=== PATIENT | male | born 2000 | race Caucasian/White ===

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

== ENCOUNTER 2018-01-03 18:35 | Emergency (ER) | payer MEDICAID, SELFPAY ==
[2018-01-03 18:36] VITALS: BP 139/95; PULSE 130; RESP 18; TEMP 36.6; O2SAT 99; BMI 20.6
--- NOTE | 2018-01-03 19:27 | ED.VISSUMM ---
- ER Visit Summary Date of Service: 01/03/18 Chief Complaint: Acute on chronic abdominal pain with nausea History of Present Illness: The patient is a 17 M 3 of his type 1 diabetes. Patient has chronic abdominal pain for more than a year. He states he had an extensive workup done including clinic main campus a year ago without specific diagnosis. Today he was seen at the [facility] urgent care. He has had abdominal pain for the last 2 weeks. More severe. They checked a blood sugar there he states it was 196. They did serum ketones are positive they told him they were concerned he may be DKA and sent him to the ER. He has never had any abdominal surgery. He denies any abdominal trauma. He denies any fever. Physical Examination: Young male no acute distress. Vital signs are stable he is afebrile. He does clinically look mildly dehydrated with dry mucous membranes and a heart rate of 130. He does not look septic or toxic. H EENT exam dry mucous members otherwise unremarkable. Neck nontender no lymphadenopathy. Lungs auscultation bilaterally. Heart tachycardic rate about 120 no murmur. Chest wall nontender. Abdomen soft nondistended normal bowel sounds. Mild left upper left lower quadrant tenderness. No rebound or guarding no rigidity. Right upper right lower quadrant unremarkable. No signs of trauma. No peritoneal signs. No hernias or masses. No signs of obstruction. He is moving all 4 extremities. They are neurovascularly intact. Neurologically is awake alert with no focal deficits. Test Results: CBC normal white count is 6. BMP shows a sugar of 243. And gap is 17. Creatinine is 1.2. Liver enzymes are elevated they have been elevated multiple times in the past. Serum ketones are small. I suspect that secondary to dehydration ketosis from the nausea and vomiting. Emergency Department Course and Treatment: Treated with IV fluids, Toradol and IV Zofran. Treatment Plan: Repeat exam at 2245 patient is doing well. Abdomen is benign. He feels comfortable being discharged home. Disposition: Discharge Impression: Acute on chronic abdominal pain History of insulin-dependent diabetes Dehydration ketosis This note was generated with [employer] dictation software. It may contain incorrect words, spelling, and punctuation that were not noted in review of the chart prior to signing ED Disposition - Plan for ED Patient: Chief Complaint: Abd Pain Referrals: Scott Gomez MD [Primary Care Provider] -
--- NOTE | 2018-01-03 19:30 | ED.DCSUM_ITS ---
- ER Visit Summary Date of Service: 01/03/18 Chief Complaint: Acute on chronic abdominal pain with nausea History of Present Illness: The patient is a 17 M 3 of his type 1 diabetes. Patient has chronic abdominal pain for more than a year. He states he had an extensive workup done including clinic main campus a year ago without specific diagnosis. Today he was seen at the [facility] urgent care. He has had abdominal pain for the last 2 weeks. More severe. They checked a blood sugar there he states it was 196. They did serum ketones are positive they told him they were concerned he may be DKA and sent him to the ER. He has never had any abdominal surgery. He denies any abdominal trauma. He denies any fever. Physical Examination: Young male no acute distress. Vital signs are stable he is afebrile. He does clinically look mildly dehydrated with dry mucous membranes and a heart rate of 130. He does not look septic or toxic. H EENT exam dry mucous members otherwise unremarkable. Neck nontender no lymphadenopathy. Lungs auscultation bilaterally. Heart tachycardic rate about 120 no murmur. Chest wall nontender. Abdomen soft nondistended normal bowel sounds. Mild left upper left lower quadrant tenderness. No rebound or guarding no rigidity. Right upper right lower quadrant unremarkable. No signs of trauma. No peritoneal signs. No hernias or masses. No signs of obstruction. He is moving all 4 extremities. They are neurovascularly intact. Neurologically is awake alert with no focal deficits. Test Results: CBC normal white count is 6. BMP shows a sugar of 243. And gap is 17. Creatinine is 1.2. Liver enzymes are elevated they have been elevated multiple times in the past. Serum ketones are small. I suspect that secondary to dehydration ketosis from the nausea and vomiting. Emergency Department Course and Treatment: Treated with IV fluids, Toradol and IV Zofran. Treatment Plan: Repeat exam at 2245 patient is doing well. Abdomen is benign. He feels comfortable being discharged home. Disposition: Discharge Impression: Acute on chronic abdominal pain History of insulin-dependent diabetes Dehydration ketosis This note was generated with [employer] dictation software. It may contain incorrect words, spelling, and punctuation that were not noted in review of the chart prior to signing ED Disposition - Plan for ED Patient: Chief Complaint: Abd Pain Referrals: Scott Gomez MD [Primary Care Provider] -
[2018-01-03] MEDS: Ondansetron 4 MG/2 ML Vial IV (19:35)
[2018-01-03] MEDS: Ketorolac 30 MG/ML Syringe IV (19:35)
[2018-01-03] MEDS: 0.9% Normal Saline 1,000 ML 1000 ML IV (19:35)
[2018-01-03 19:58] LABS: Absolute Lymphocyte Count 1.95 X10^3/ul (0.83-4.51); Absolute Neutrophil Count 3.3 X10^3/uL (2.0-7.7); Basophil# 0.03 X10^3/uL; Basophil% 0.5 % (0-1); Eosinophil# 0.21 X10^3/uL; Eosinophils% 3.5 % (0-5); Hematocrit 44.4 % (40-54); Hemoglobin 16.2 g/dl (13.0-16.5); Lymphocyte # 1.95 X10^3/ul (4.0); Lymphocyte % 32.7 % (19-41); Mean Corp Hgb Conc 36.5 g/gl (32-36); Mean Corpuscular Hgb 32.1 pg (27.0-32.0); Mean Corpuscular Volume 88.1 fL (80-94); Mean Platelet Vol. 9.9 fl (6.2-12.0); Monocyte# 0.44 X10^3/uL; Monocyte% 7.4 % (0-10); Neutrophil # 3.29 X10^3/uL (2.7-7.7); Neutrophil % 55.1 % (47-70); Platelet Count 274 K/mm3 (150-450); RBC Distribution Width CV 12.8 % (11.6-14.6); RBC Distribution Width SD 41.3 fl (35.1-43.9); Red Blood Count 5.04 M/mm3 (4.6-6.2)
[2018-01-03 20:04] LABS: POSITIVE COUNT NO; POSITIVE DIFFERENTIAL NO; POSITIVE MORPHOLOGY NO
[2018-01-03 20:15] LABS: AST(SGOT) 126 U/L (15-37); Alanine Aminotransfer ALT/SGPT 204 U/L (16-61); Albumin, Serum 3.3 g/dL (3.2-5.0); Alkaline Phosphatase 165 U/L (45-117); Anion Gap 17 (5-15); BUN 17 mg/dL (7-18); BUN/Creat Ratio 13.9 RATIO (10-20); Bilirubin, Direct < 0.05 mg/dL (0.00-0.30); Calcium,Total 8.4 mg/dL (8.5-10.1); Chloride 103 mmol/L (98-107); Creatinine, Serum 1.22 mg/dL (0.70-1.30); EST Glomerular Filtration Rate 81 mL/min (>60); Est Glom Filt Rate - Afr Amer 98 mL/min (>60); Estimated Creatinine Clearance 84.72 ml/min; Globulin 3.7 g/dL (2.2-4.2); Glucose 243 mg/dL (74-106); Lipase 59 U/L (73-393); Potassium 3.6 mmol/L (3.5-5.1); Sodium Level 137 mmol/L (136-145)
[2018-01-03 22:22] VITALS: RESP 18; O2SAT 99
--- NOTE | 2018-01-03 22:49 | ED.DEP ---
ED Disposition - Plan for ED Patient: Disposition: Home or Assisted Living Chief Complaint: Abd Pain Instructions: ED Abdominal Pain Unkn Cause Prescriptions: Ondansetron [Zofran Odt] 4 mg PO Q4H PRN PRN #7 tab.rapdis PRN Reason: Nausea Referrals: Scott Gomez MD [Primary Care Provider] - 1-2 Days if not improving Additional Instructions: Plenty of fluids and rest. Watch your blood sugars closely. Take your medications as prescribed. Zofran as needed for nausea. You may swallow the pill or hold underneath your tongue to let it dissolve. Return if feeling worse.
[2018-01-03] MEDS: Ondansetron ODT 4 MG Tablet 16 MG PO (23:12)
[2018-01-03 23:15] VITALS: BP 102/64; PULSE 102; RESP 18; O2SAT 98
== END 2018-01-03 23:16 | disposition home or self-care (01) ==
PROVIDERS: Emergency Provider Emergency Medicine; Family Provider Pediatrics; PCP Pediatrics
DX: G89.29 Other chronic pain (principal); R10.9 Unspecified abdominal pain; E86.0 Dehydration; E88.89 Other specified metabolic disorders; Z79.4 Long term (current) use of insulin; E10.9 Type 1 diabetes mellitus without complications
CPT/HCPCS: 80048; 80076; 82009; 83690; 85025; 99283; J7030; A4216; J2405

== ENCOUNTER 2018-01-23 17:42 | Observation (INO) | payer MEDICAID, SELFPAY ==
[2018-01-23] VITALS (12 sets, daily range): BP systolic 101–130; BP diastolic 54–84; PULSE 87–101; RESP 16–29; TEMP 36.6–36.8; O2SAT 96–100; BMI 22.2; BMI 22.8; BMI 22.9
[2018-01-23 17:55] LABS: Bedside Glucose > 500 mg/dL (70-110)
[2018-01-23 18:31] LABS: Absolute Lymphocyte Count 2.26 X10^3/ul (0.83-4.51); Absolute Neutrophil Count 3.9 X10^3/uL (2.0-7.7); Basophil# 0.06 X10^3/uL; Basophil% 0.9 % (0-1); Eosinophil# 0.17 X10^3/uL; Eosinophils% 2.5 % (0-5); Hematocrit 47.7 % (40-54); Hemoglobin 15.6 g/dl (13.0-16.5); Lymphocyte # 2.26 X10^3/ul (4.0); Lymphocyte % 32.9 % (19-41); Mean Corp Hgb Conc 32.7 g/gl (32-36); Mean Corpuscular Hgb 31.2 pg (27.0-32.0); Mean Corpuscular Volume 95.4 fL (80-94); Mean Platelet Vol. 9.7 fl (6.2-12.0); Monocyte# 0.36 X10^3/uL; Monocyte% 5.2 % (0-10); Neutrophil # 3.92 X10^3/uL (2.7-7.7); POSITIVE COUNT NO; POSITIVE DIFFERENTIAL NO; POSITIVE MORPHOLOGY NO; Platelet Count 269 K/mm3 (150-450); RBC Distribution Width CV 13.8 % (11.6-14.6); RBC Distribution Width SD 47.6 fl (35.1-43.9); White Blood Count 6.9 K/mm3 (4.4-11.0)
[2018-01-23 18:50] LABS: Anion Gap 25 (5-15); BUN 22 mg/dL (7-18); BUN/Creat Ratio 21.4 RATIO (10-20); Calcium,Total 9.1 mg/dL (8.5-10.1); Chloride 94 mmol/L (98-107); Creatinine, Serum 1.03 mg/dL (0.70-1.30); EST Glomerular Filtration Rate 99 mL/min (>60); Est Glom Filt Rate - Afr Amer 120 mL/min (>60); Estimated Creatinine Clearance 102.14 ml/min; Glucose 717 mg/dL (74-106); Potassium 4.5 mmol/L (3.5-5.1); Sodium Level 132 mmol/L (136-145)
--- NOTE | 2018-01-23 19:20 | EKG12_ITS ---
Test Reason : DKA Blood Pressure : / mmHG Vent. Rate : 091 BPM Atrial Rate : 091 BPM P-R Int : 140 ms QRS Dur : 086 ms QT Int : 352 ms P-R-T Axes : 056 021 029 degrees QTc Int : 432 ms Normal sinus rhythm Normal ECG Confirmed by REILLY OLMEDO, GIOVANI ([id number]), copy editor CHRISSIE CACERES ([id number]) on 01/25/2018 1:55:00 PM Referred By: DC Confirmed By:GIOVANI GROVER MD
--- NOTE | 2018-01-23 19:22 | ED.VISSUMM ---
- ER Visit Summary Date of Service: 01/23/18 Chief Complaint: Dehydrated History of Present Illness: The patient is a 17 M with type 1 diabetes. He has had excessive thirst over the past couple days, and he continues to drink a lot but still feels dehydrated. His blood sugars were in the 200s yesterday and then the were high today. He says that he is taking his medications as prescribed and has not missed doses or changed his treatment regimen. He has a history of DKA. He also has a history of fatty liver and has been having some right upper quadrant pain. Physical Examination: Vital signs unremarkable except for heart rate of 101 and respiratory rate of 22. He is afebrile. Nontoxic and in no acute distress. Mucous membranes are slightly dry. Skin appears normal. Heart regular. Lungs clear. Abdomen soft and nontender. Test Results: Glucose 717, anion gap 25, CO2 13. Other laboratory studies are pending. Emergency Department Course and Treatment: Patient treated with a fluid bolus. Placed on a monitor. Will start insulin drip for DKA. Acetones large. Ketones in urine. Transaminases elevated. Lipase normal. Patient treated with fluids and insulin drip started. Vitals remained stable. He is resting comfortably. Spoke with the plate glass installer and the hospitalist to admit for further care. Treatment Plan: As above Disposition: Admission Impression: 1. DKA 2. Elevated liver enzymes This note was generated with [employer] dictation software. It may contain incorrect words, spelling, and punctuation that were not noted in review of the chart prior to signing ED Disposition - Plan for ED Patient: Chief Complaint: Hyperglycemia Referrals: Scott Gomez MD [Primary Care Provider] -
[2018-01-23 19:29] LABS: Bacteria 0 SEEN /hpf (None Seen); Mucous, Urine 0 SEEN /hpf (<or=2+); Red Blood Cells-Urine 0 SEEN /hpf (0-5); Squamous Epithelial Cells - UA 0 SEEN /hpf (0-5); White Blood Cells 0 SEEN /hpf (0-5)
[2018-01-23 19:33] LABS: Color, Urine Yellow (Yellow); Glucose, Dipstick 1000 mg/dl (Normal); Leukocyte Esterase-Dipstick Negative /ul (Negative); Nitrite-Dipstick Negative (Negative); Occult Blood-Urine Negative /ul (Negative); Protein-Dipstick Negative (Negative); Urine Bilirubin Dipstick Negative (Negative); Urine Clarity Clear (Clear); Urine Urobilinogen Normal (Normal)
[2018-01-23 19:36] LABS: Bedside Glucose > 500 mg/dL (70-110)
[2018-01-23 19:40] LABS: Ketone-Dipstick 150 mg/dl (Negative)
--- NOTE | 2018-01-23 19:40 | ED.RN ---
DR AZEVEDO NOTIFIED OF [place] AND [place] [facility]
[2018-01-23 19:41] LABS: AST(SGOT) 101 U/L (15-37); Alanine Aminotransfer ALT/SGPT 169 U/L (16-61); Albumin, Serum 3.7 g/dL (3.2-5.0); Alkaline Phosphatase 200 U/L (45-117); Bilirubin, Direct 0.25 mg/dL (0.00-0.30); Globulin 3.3 g/dL (2.2-4.2); Lipase 53 U/L (73-393)
[2018-01-23] MEDS: 0.9% Normal Saline 1,000 ML 1000 ML IV ×2 (19:53→19:54)
[2018-01-23 19:56] LABS: Allen Test POS; Base Excess -20 mmol/L (-2 to +2); Bicarbonate 8.3 mmol/L (22-26); Blood Gas Specimen Type ART; O2 Delivery Device Room Air; PO2 110 mmHG (75-100); SITE L Radial; SO2 97 % (95-99); Total Carbon Dioxide 9 mmol/L; pCO2 21.1 mmHg (35-45)
[2018-01-23 20:30] LABS: Bedside Glucose > 500 mg/dL (70-110)
[2018-01-23 21:25] LABS: Bedside Glucose 473 mg/dL (70-110)
--- NOTE | 2018-01-23 21:29 | HP.PCM_ITS ---
Problem List (1) DM I (diabetes mellitus, type I), uncontrolled Status: Chronic Qualifiers: Comment: BG varied .Noted a pattern of BG elevated after breakfast and dinner and at bedtime last visit and ask him to specifically check 2 hours before and after these times which he did not do. Will increase basaglar to 20 twice daily but he did not do. I have ask him again to do as he gets much better control. When control seems better he may reduce to 18 twice daily. Long discussion about potential complications and need to try. (2) DKA (diabetic ketoacidoses) Status: Acute Qualifiers: History of Present Illness Date of Admission: 01/23/18 Chief Complaint: Thirsty, dehydrated. The patient is a 17 year old M with past medical history as mentioned above presented to the emergency room because of thirst and severe dehydration as well as elevated blood blood sugar. This patient has history of type 1 diabetes mellitus with recurrent admissions for DKA. He mentioned that since yesterday, his blood pressure started to creep up and was up to 312 mg/dL. Today, he started complaining of being very thirsty and dehydrated, associated with weakness and fatigue and also complained of abdominal pain. Abdominal pain , right-sided abdominal pain, vague pain, dull aching, 3-4 out of 10 in severity , has been going on for long time but seemed to be got worse since yesterday, no associated symptoms and no aggravating or relieving factors. He denied nausea vomiting. He denied fever chills. He denies cough or sputum production. He denies urinary symptoms. He stated that he takes his insulin as prescribed and he did not miss any dose. In the emergency department, his vital signs were stable. His routine blood work is remarkable for sodium of 132 , BUN of 22, serum bicarb of 13, anion gap was 25, blood sugar 717. LFT was elevated, lipase was normal. Urinalysis revealed glucose and ketones, no evidence of UTI. Urine acetone was large. His EKG revealed normal sinus rhythm without evidence of acute ischemic changes or cardiac arrhythmias. He is being admitted for diabetic ketoacidosis. Past Medical History Past Medical History (Chronic Problems): Chronic Problems (Last Reviewed 01/18/18 @ 16:18 by Amanda Wilkinson) Suicidal ideations (Chronic) DM I (diabetes mellitus, type I), uncontrolled (Chronic) BG varied .Noted a pattern of BG elevated after breakfast and dinner and at bedtime last visit and ask him to specifically check 2 hours before and after these times which he did not do. Will increase basaglar to 20 twice daily but he did not do. I have ask him again to do as he gets much better control. When control seems better he may reduce to 18 twice daily. Long discussion about potential complications and need to try. Medical History: Medical History (Last Reviewed 01/18/18 @ 16:18 by Amanda Wilkinson) Anxiety disorder F41.9 Back problem M53.9 Bone fracture T14.8XXA Diabetes type 1, uncontrolled E10.65 Dx : age 2 Last exacerbation : DKA : 09/08/17 Hypoglycemic episode : never ER visit : 09/13/17 Hearing problem H91.90 Liver disease K76.9 Seizure R56.9 Vision problem H54.7 Allergies No Known Allergies Allergy (Verified 01/23/18 17:43) Home Medications: Ambulatory Orders Medication Instructions Recorded insulin aspart U-100 100 unit/mL See Label Instructions SC QDAY 08/10/17 subcutaneous pen Insulin Glargine,Hum.rec.anlog 30 unit SQ QHS 10/26/17 [Basaglar Kwikpen U-100] Ondansetron [Zofran Odt] 4 mg PO Q4H PRN PRN #7 tab.rapdis 01/03/18 Omeprazole [Omeprazole] 40 mg PO DAILY 01/23/18 Surgical History: Surgical History (Last Reviewed 01/18/18 @ 16:18 by Amanda Wilkinson) S/p bilateral myringotomy with tube placement Z96.22 Surgical History: - - BL ear tubes. Psychiatric History: Anxiety, Depression, Prior suicide attempt Lives: With Family Smoking Status: Never smoker Alcohol: None Drugs: None - *Family History Maternal Family History: Family History (Last Reviewed 01/18/18 @ 16:18 by Amanda Wilkinson) Mother Kidney disease History Items: Heart Disease, Renal Disease Paternal Family History: Family History (Last Reviewed 01/18/18 @ 16:18 by Amanda Wilkinson) Mother Kidney disease History Items: Heart Disease, - - Paternal family males w/ frequent hearing disorder. Review of Systems Constitutional: Reports: Anorexia, Weakness, Fatigue. Denies: Chills, Fever Eyes: Denies: Blurred vision, Double vision, Eyelid Inflammation, Redness HEENT: Denies: Difficulty Hearing, Ear Pain, Eye Pain, Nasal Congestion, Sore Throat Cardiovascular: Denies: Chest Pain, Chest Pressure, Edema, Heaviness, Palpitations, Syncope Respiratory: Denies: Cough, Pleuritic Pain, Shortness of Breath, Sputum production, Wheezing Gastrointestinal: Reports: Abdominal Pain. Denies: Constipation, Diarrhea, Hematochezia, Nausea, Vomiting Genitourinary: Denies: Dysuria, Frequency, Hematuria Musculoskeletal: Denies: Arm Pain, Back Pain, Foot Pain Skin: Reports: Dryness. Denies: Rash Neurological: Denies: Balance problems, Double vision, Change in Speech, Slurred speech, Confusion, Headaches, Incoordination, Numbness Psychiatric: Denies: Anxiety, Depression Endocrine: Denies: Change in Body Habitus, Polydipsia VTE Information - Inpt Only VTE Present on Admission: No VTE Mechan Device Prophylaxis: None VTE Pharm Prophylaxis ordered?: Yes - Physical Exam General: Alert, Oriented x3, Cooperative, No apparent distress HEENT: Atraumatic, PERRLA, EOMI Oral: No Gingival or Mucosal Lesions/ Ulcerations, Dry Mucosa Neck: Supple, No JVD, Negative Carotid Bruits, Trachea Midline, Thyroid Normal Size and Texture Lungs: Clear to auscultation, No rhonchi, No wheeze, No rales, Diminished Cardiovascular: Regular rate, Regular Rhythm, Normal S1, Normal S2, No murmurs Abdomen: Bowel Sounds Present, Soft, Non-Distended, No Hepato-splenomegaly, Tender Extremities: No clubbing, No cyanosis, No edema Skin: No rashes, No breakdown Lymphatic: No Cervical, Supraclavicular, or Inguinal Adenopathy Neurological: Cranial nerves II-XII grossly intact, Motor Exam 5/5 strength throughout Psych/Mental Status: Normal Affect, Appropriate, Alert and oriented to time, place, person, mood and affect Vital Signs Temp Pulse Resp BP Pulse Ox 98.2 F 92 18 103/67 100 01/23/18 17:44 01/23/18 21:07 01/23/18 21:07 01/23/18 21:07 01/23/18 21:07 Oxygen Delivery Method Room Air Weight: 138 lb 0.15 oz Body Mass Index (BMI) 22.2 Finger Stick Blood Glucose 473 Laboratory Tests Past 24 Hrs 01/23/18 01/23/18 01/23/18 18:05 18:05 18:05 WBC 6.9 RBC 5.00 Hgb 15.6 Hct 47.7 MCV 95.4 H MCH 31.2 MCHC 32.7 RDW 13.8 RDW Differential 47.6 H Plt Count 269 MPV 9.7 Immature Gran % (Auto) 1.500 H Neut % (Auto) 57.0 Lymph % (Auto) 32.9 [place] % (Auto) 5.2 Eos % (Auto) 2.5 Baso % (Auto) 0.9 Absolute Neuts (auto) 3.9 Absolute Lymphs (auto) 2.26 Total Counted Not Reportable Specimen Type Sample Site pH Bicarbonate Actual POC Total CO2 Base Excess O2 Saturation ABG pCO2 ABG pO2 Martin Test O2 Delivery Device Blood Gas Notified Whom Sodium 132 L Potassium 4.5 Chloride 94 L Carbon Dioxide 13.0 L Anion Gap 25 H BUN 22 H Creatinine 1.03 Estim Creat Clear Calc 102.14 Est GFR (MDRD) Af Amer 120 Est GFR (MDRD) Non-Af 99 BUN/Creatinine Ratio 21.4 H Glucose 717 H* Calcium 9.1 Total Bilirubin 1.10 H Direct Bilirubin 0.25 AST 101 H ALT 169 H Alkaline Phosphatase 200 H Total Protein 7.0 Albumin 3.7 Globulin 3.3 Lipase 53 L Urine Color Urine Clarity Urine pH Ur Specific [place] Urine Protein Urine Glucose (UA) Urine Ketones Urine Occult Blood Urine Nitrite Urine Bilirubin Urine Urobilinogen Ur Leukocyte Esterase Urine RBC Urine WBC Ur Squamous Epith Cells Urine Bacteria Urine Mucus Acetone Level 01/23/18 01/23/18 01/23/18 18:05 18:15 19:49 WBC RBC Hgb Hct MCV MCH MCHC RDW RDW Differential Plt Count MPV Immature Gran % (Auto) Neut % (Auto) Lymph % (Auto) [place] % (Auto) Eos % (Auto) Baso % (Auto) Absolute Neuts (auto) Absolute Lymphs (auto) Total Counted Specimen Type ART Sample Site L Radial pH 7.20 L Bicarbonate Actual 8.3 L POC Total CO2 9 Base Excess -20 L O2 Saturation 97 ABG pCO2 21.1 L ABG pO2 110 H Martin Test POS O2 Delivery Device Room Air Blood Gas Notified Whom ED Sodium Potassium Chloride Carbon Dioxide Anion Gap BUN Creatinine Estim Creat Clear Calc Est GFR (MDRD) Af Amer Est GFR (MDRD) Non-Af BUN/Creatinine Ratio Glucose Calcium Total Bilirubin Direct Bilirubin AST ALT Alkaline Phosphatase Total Protein Albumin Globulin Lipase Urine Color Yellow Urine Clarity Clear Urine pH 5.0 Ur Specific [place] 1.010 Urine Protein Negative Urine Glucose (UA) 1000 H Urine Ketones 150 H Urine Occult Blood Negative Urine Nitrite Negative Urine Bilirubin Negative Urine Urobilinogen Normal Ur Leukocyte Esterase Negative Urine RBC 0 SEEN Urine WBC 0 SEEN Ur Squamous Epith Cells 0 SEEN Urine Bacteria 0 SEEN Urine Mucus 0 SEEN Acetone Level LARGE H POC Glucose 01/23/18 01/23/18 01/23/18 20:22 19:30 17:49 POC Glucose > 500 H* > 500 H* > 500 H* Assessment/Plan All Active Problems (Last Reviewed 01/18/18 @ 16:18 by Amanda Wilkinson) DKA (diabetic ketoacidoses) (Acute) This is a 17 years old male patient presented to the emergency department because of dehydration and thirst as well as abdominal pain and he was found to have diabetic ketoacidosis. #1 acute DKA: With recurrent history of admissions for DKA. Patient claims that he takes his insulin as prescribed. Most recent hemoglobin A1c was 12.3 on October,. His ABG revealed pH of 7.20, PCO2 of 21 and PO2 of 110. Serum bicarb is 30, anion gap is 25. Blood sugar is 717. Plan: Admit to ICU, critical care monitoring, initiate DKA protocol, IV fluids with potassium replacement, IV insulin drip, electrolyte replacement per protocol, DVT 4 hours , repeat CBC and BMP tomorrow morning, critical care consult, nutrition consult , IV antiemetics. #2 elevated LFT: His liver transaminases and alkaline phosphatase has been chronically elevated, fluctuating. Patient complains of chronic right-sided abdominal pain. On exam, no guarding or rigidity. Plan for IV fluids, IV morphine as needed for pain, repeat LFTs tomorrow morning. #3 hyponatremia/dehydration: Secondary to DKA. Corrected sodium is normal for hyperglycemia. Plan for IV fluids as above, input output chart, repeat BMP tomorrow morning. #4 type 1 diabetes mellitus: Initiate DKA protocol, hold glargine and U 100 insulin. #5 DVT prophylaxis: Subcu Lovenox. This note was generated with [employer] software. It may contain incorrect words, spelling, and punctuation that were not noted in checking the note before signing. Code Visit Inpatient E&M: 12149 Init Hosp L3
[2018-01-23 22:10] LABS: Bedside Glucose 322 mg/dL (70-110)
[2018-01-23] MEDS: 0.9% Normal Saline 1,000 ML 250 ML IV (22:10)
[2018-01-23] MEDS: Dext 5%-0.45% NS 1,000 ML 150 ML IV (23:05)
[2018-01-23 23:06] LABS: Anion Gap 24 (5-15); BUN 18 mg/dL (7-18); BUN/Creat Ratio 16.2 RATIO (10-20); Calcium,Total 8.2 mg/dL (8.5-10.1); Chloride 105 mmol/L (98-107); Creatinine, Serum 1.11 mg/dL (0.70-1.30); EST Glomerular Filtration Rate 91 mL/min (>60); Est Glom Filt Rate - Afr Amer 110 mL/min (>60); Estimated Creatinine Clearance 96.59 ml/min; Glucose 331 mg/dL (74-106); Sodium Level 138 mmol/L (136-145)
[2018-01-23 23:11] LABS: Bedside Glucose 239 mg/dL (70-110)
[2018-01-23 23:55] LABS: Bedside Glucose 220 mg/dL (70-110)
[2018-01-24] VITALS (15 sets, daily range): BP systolic 106–135; BP diastolic 59–88; PULSE 72–103; RESP 13–25; TEMP 36.6–36.8; O2SAT 97–99
[2018-01-24 00:31] LABS: M R Staph aureus DNA By PCR Negative (Negative); Probe Check PASS; Specimen Processing Control PASS
[2018-01-24 01:01] LABS: Bedside Glucose 209 mg/dL (70-110)
[2018-01-24 02:11] LABS: Bedside Glucose 189 mg/dL (70-110)
[2018-01-24 02:22] LABS: Anion Gap 15 (5-15); BUN 14 mg/dL (7-18); BUN/Creat Ratio 14.7 RATIO (10-20); Chloride 105 mmol/L (98-107); Creatinine, Serum 0.95 mg/dL (0.70-1.30); EST Glomerular Filtration Rate 108 mL/min (>60); Est Glom Filt Rate - Afr Amer 131 mL/min (>60); Estimated Creatinine Clearance 112.86 ml/min; Glucose 216 mg/dL (74-106); Potassium 3.6 mmol/L (3.5-5.1); Sodium Level 139 mmol/L (136-145)
[2018-01-24 03:06] LABS: Bedside Glucose 186 mg/dL (70-110)
[2018-01-24 04:56] LABS: Bedside Glucose 148 mg/dL (70-110)
[2018-01-24] MEDS: Enoxaparin 40 MG/0.4 ML Syringe SC (06:02)
[2018-01-24 06:38] LABS: ALB/GLOB Ratio 0.9 RATIO (0.9-2.4); AST(SGOT) 95 U/L (15-37); Alanine Aminotransfer ALT/SGPT 134 U/L (16-61); Albumin, Serum 2.9 g/dL (3.2-5.0); Alkaline Phosphatase 100 U/L (45-117); Anion Gap 10 (5-15); BUN 10 mg/dL (7-18); BUN/Creat Ratio 11.8 RATIO (10-20); Calcium,Total 7.9 mg/dL (8.5-10.1); Chloride 107 mmol/L (98-107); Creatinine, Serum 0.84 mg/dL (0.70-1.30); EST Glomerular Filtration Rate 124 mL/min (>60); Est Glom Filt Rate - Afr Amer 150 mL/min (>60); Estimated Creatinine Clearance 127.64 ml/min; Globulin 3.1 g/dL (2.2-4.2); Glucose 137 mg/dL (74-106); Potassium 3.5 mmol/L (3.5-5.1); Sodium Level 139 mmol/L (136-145)
[2018-01-24 06:46] LABS: Absolute Lymphocyte Count 2.74 X10^3/ul (0.83-4.51); Absolute Neutrophil Count 2.6 X10^3/uL (2.0-7.7); Basophil# 0.07 X10^3/uL; Basophil% 1.1 % (0-1); Eosinophil# 0.36 X10^3/uL; Eosinophils% 5.5 % (0-5); Hemoglobin 14.1 g/dl (13.0-16.5); Lymphocyte # 2.74 X10^3/ul (4.0); Mean Corp Hgb Conc 35.3 g/gl (32-36); Mean Corpuscular Volume 90.9 fL (80-94); Mean Platelet Vol. 9.3 fl (6.2-12.0); Monocyte% 9.2 % (0-10); Neutrophil # 2.57 X10^3/uL (2.7-7.7); Neutrophil % 39.4 % (47-70); Platelet Count 246 K/mm3 (150-450); RBC Distribution Width CV 13.4 % (11.6-14.6); RBC Distribution Width SD 44.4 fl (35.1-43.9); White Blood Count 6.5 K/mm3 (4.4-11.0)
[2018-01-24 06:56] LABS: Bedside Glucose 140 mg/dL (70-110)
[2018-01-24 06:56] LABS: POSITIVE COUNT YES; POSITIVE DIFFERENTIAL NO; POSITIVE MORPHOLOGY YES
[2018-01-24 07:25] LABS: Bedside Glucose 116 mg/dL (70-110)
[2018-01-24 08:06] LABS: Bedside Glucose 124 mg/dL (70-110)
[2018-01-24] MEDS: Insulin NPH Human 100 UNITS/ML PEN 15 UNITS SC (08:47)
--- NOTE | 2018-01-24 10:06 | PCM.CON.CC ---
Problem List (1) Fatty liver Status: Suspected (2) DM I (diabetes mellitus, type I), uncontrolled Status: Chronic Qualifiers: Diabetes mellitus complication status: with unspecified complications Comment: BG varied .Noted a pattern of BG elevated after breakfast and dinner and at bedtime last visit and ask him to specifically check 2 hours before and after these times which he did not do. Will increase basaglar to 20 twice daily but he did not do. I have ask him again to do as he gets much better control. When control seems better he may reduce to 18 twice daily. Long discussion about potential complications and need to try. (3) DKA (diabetic ketoacidoses) Status: Acute Qualifiers: Diabetes mellitus type: type 1 Diabetes mellitus complication detail: without coma Qualified Code(s): E10.10 - Type 1 diabetes mellitus with ketoacidosis without coma Reason for Consult Date of Consultation: 01/24/18 Reason for Consultation: DKA History of Present Illness: The patient is a 17 year old M, with past medical history listed below, who presented to [facility] on 01/23/2018 with complaints of excessive thirst and nausea. Patient had reported progressive blood sugars despite reported compliance with insulin therapy. Patient did have a history of a previous DKA admissions in the last year, but states that he follows with endocrinology nurse practitioner here [facility]. In the emergency room, patient was noted to have an anion gap of 25 with a glucose of 717 and a bicarbonate of 13. Patient was placed in the intensive care unit and initiated on DKA protocol. Overnight, patient did well. Patient's gap was closed ?2 this morning and was able to transition over to subcu insulin. Patient did tolerate breakfast well. Patient states he typically takes his long-acting insulin in the evening, so was given NPH without difficulty. Patient denies any recent illness and believes that his exacerbation and diabetes is secondary to his fatty liver. Patient states that he starts to feel nausea and dehydration and then needs to DKA. Patient states that he is compliant with therapy. Patient denies any current complaints such as fever, chills, nausea, vomiting, diarrhea, epistaxis, hemoptysis, melena, rash, rhinorrhea or sick exposures. Review of systems otherwise negative ?10 systems at this time. Past Medical History Past Medical History (Chronic Problems): Chronic Problems (Last Reviewed 01/18/18 @ 16:18 by Amanda Wilkinson) Suicidal ideations (Chronic) DM I (diabetes mellitus, type I), uncontrolled (Chronic) BG varied .Noted a pattern of BG elevated after breakfast and dinner and at bedtime last visit and ask him to specifically check 2 hours before and after these times which he did not do. Will increase basaglar to 20 twice daily but he did not do. I have ask him again to do as he gets much better control. When control seems better he may reduce to 18 twice daily. Long discussion about potential complications and need to try. Medical History: Medical History (Last Reviewed 01/18/18 @ 16:18 by Amanda Wilkinson) Anxiety disorder F41.9 Back problem M53.9 Bone fracture T14.8XXA Diabetes type 1, uncontrolled E10.65 Dx : age 2 Last exacerbation : DKA : 09/08/17 Hypoglycemic episode : never ER visit : 09/13/17 Hearing problem H91.90 Liver disease K76.9 Seizure R56.9 Vision problem H54.7 Allergies No Known Allergies Allergy (Verified 01/23/18 17:43) Home Medications: Ambulatory Orders Medication Instructions Recorded insulin aspart U-100 100 unit/mL See Label Instructions SC QDAY 08/10/17 subcutaneous pen Insulin Glargine,Hum.rec.anlog 30 unit SQ QHS 10/26/17 [Basaglar Kwikpen U-100] Ondansetron [Zofran Odt] 4 mg PO Q4H PRN PRN #7 tab.rapdis 01/03/18 Omeprazole [Omeprazole] 40 mg PO DAILY 01/23/18 Surgical History: Surgical History (Last Reviewed 01/18/18 @ 16:18 by Amanda Wilkinson) S/p bilateral myringotomy with tube placement Z96.22 Surgical History: - - BL ear tubes. Psychiatric History: Anxiety, Depression, Prior suicide attempt Lives: With Family Smoking Status: Never smoker Alcohol: None Drugs: None - *Family History Maternal Family History: Family History (Last Reviewed 01/18/18 @ 16:18 by Amanda Wilkinson) Mother Kidney disease History Items: Heart Disease, Renal Disease Paternal Family History: Family History (Last Reviewed 01/18/18 @ 16:18 by Amanda Wilkinson) Mother Kidney disease History Items: Heart Disease, - - Paternal family males w/ frequent hearing disorder. Review of Systems Comment: See HPI Patient Problems: Active and Suspected Problems (Last Reviewed 01/18/18 @ 16:18 by Amanda Wilkinson) Fatty liver (Suspected) - Physical Exam General: Alert, Oriented x3, Cooperative, No apparent distress, - - Speaking in full sentences. HEENT: Atraumatic, PERRLA, EOMI, Normocephalic, - - No scleral icterus or injection noted. No temporal wasting noted. Oral: Moist Mucosa, No Gingival or Mucosal Lesions/ Ulcerations Neck: Supple, No JVD, No Nodes Lungs: Clear to auscultation, Normal air movement, No rhonchi, No wheeze, No rales Cardiovascular: Regular rate, Regular Rhythm, Normal S1, Normal S2, No murmurs, No rub noted, No Gallop Abdomen: Bowel Sounds Present, Soft, Non Tender, Non-Distended Extremities: No clubbing, No cyanosis, No edema, Capillary Refill Less than 3 Seconds Skin: No rashes, No breakdown Musculoskeletal: No Tenderness to Palpation of Joints or Extremities, No Muscle Wasting Lymphatic: No Cervical, Supraclavicular, or Inguinal Adenopathy Neurological: Cranial nerves II-XII grossly intact, Neuro grossly intact, Motor Exam 5/5 strength throughout Psych/Mental Status: Alert and oriented to time, place, person, mood and affect Vital Signs Temp Pulse Resp BP Pulse Ox 36.8 C 94 19 H 134/88 H 98 01/24/18 08:00 01/24/18 09:00 01/24/18 09:00 01/24/18 09:00 01/24/18 09:00 Oxygen Delivery Method Room Air Weight: 64.8 kg Body Mass Index (BMI) 22.8 Intake and Output for Last 24 Hours 01/22/18 01/23/18 01/24/18 23:59 23:59 23:59 Intake Total 366.9 / 366.9 1050 / 1050 Balance 366.9 / 366.9 1050 / 1050 Laboratory Tests Past 24 Hrs 01/23/18 01/23/18 01/24/18 22:10 22:36 02:00 WBC RBC Hgb Hct MCV MCH MCHC RDW RDW Differential Plt Count MPV Immature Gran % (Auto) Neut % (Auto) Lymph % (Auto) [place] % (Auto) Eos % (Auto) Baso % (Auto) Absolute Neuts (auto) Absolute Lymphs (auto) Total Counted Diff Path Review Sodium 138 139 Potassium 4.0 3.6 Chloride 105 105 Carbon Dioxide 9.0 L* 19.0 L Anion Gap 24 H 15 BUN 18 14 Creatinine 1.11 0.95 Estim Creat Clear Calc 96.59 112.86 Est GFR (MDRD) Af Amer 110 131 Est GFR (MDRD) Non-Af 91 108 BUN/Creatinine Ratio 16.2 14.7 Glucose 331 H 216 H Calcium 8.2 L 8.0 L Total Bilirubin AST ALT Alkaline Phosphatase Total Protein Albumin Globulin Albumin/Globulin Ratio MRSA (PCR) Negative 01/24/18 01/24/18 06:00 06:00 WBC 6.5 RBC 4.40 L Hgb 14.1 Hct 40.0 MCV 90.9 MCH 32.0 MCHC 35.3 RDW 13.4 RDW Differential 44.4 H Plt Count 246 MPV 9.3 Immature Gran % (Auto) 2.800 H Neut % (Auto) 39.4 L Lymph % (Auto) 42.0 H [place] % (Auto) 9.2 Eos % (Auto) 5.5 H Baso % (Auto) 1.1 H Absolute Neuts (auto) 2.6 Absolute Lymphs (auto) 2.74 Total Counted Not Reportable Diff Path Review May foll Sodium 139 Potassium 3.5 Chloride 107 Carbon Dioxide 22.0 Anion Gap 10 BUN 10 Creatinine 0.84 Estim Creat Clear Calc 127.64 Est GFR (MDRD) Af Amer 150 Est GFR (MDRD) Non-Af 124 BUN/Creatinine Ratio 11.8 Glucose 137 H Calcium 7.9 L Total Bilirubin 0.50 AST 95 H ALT 134 H Alkaline Phosphatase 100 Total Protein 6.0 L Albumin 2.9 L Globulin 3.1 Albumin/Globulin Ratio 0.9 MRSA (PCR) POC Glucose 01/24/18 01/24/18 01/24/18 08:00 07:23 06:04 POC Glucose 124 H 116 H 140 H 01/24/18 01/24/18 01/24/18 04:47 02:58 02:05 POC Glucose 148 H 186 H 189 H 01/24/18 01/23/18 01/23/18 00:55 23:48 23:01 POC Glucose 209 H 220 H 239 H 01/23/18 22:00 POC Glucose 322 H Assessment/Plan Active and Suspected Problems (Last Reviewed 01/18/18 @ 16:18 by Amanda Wilkinson) Fatty liver (Suspected) RECOMMENDATIONS: 1. Diabetic teaching 2. NPH this morning ?1 with sliding scale with meals 3. Potential discharge later today per hospitalist IMPRESSIONS: 1. Acute diabetic ketoacidosis without coma Patient is reporting compliance with therapy, but gives no salient features of complicated diabetic control. Patient is not reporting any infections at this time. Patient was treated with protocol and has appropriately responded. Patient currently tolerating a p.o. diet with subcu insulin. Did stress to the patient the importance of avoiding future complications as this has been linked with complications of circulation and renal function. Patient voiced understanding. Reasonable to have patient receive diabetic education. Patient currently hemodynamically stable on room air. Will sign off from a critical care perspective. 2. Fatty liver Patient is reporting a history of fatty liver, but there is no documentation to confirm this finding. Code Visit Inpatient E&M: 51018 Init Hosp L2
[2018-01-24] MEDS: 0.9% NaCl Peripheral Flush Adult/Peds IV ×2 (10:17→11:28)
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
[2018-01-24 11:40] LABS: Bedside Glucose 310 mg/dL (70-110)
--- NOTE | 2018-01-24 11:45 | PCM.DC ---
You will use the following diet at home:: Calorie/Carbohydrate Controlled (specify 1200, 1400, etc) - 1800. No juice or sugary drinks. No candies. Your food should be the consistency of: Regular Instructions: How to Check Your Blood Sugar, Healthy Meals for Diabetes, Diabetes: Understanding Carbohydrates, Eating Out When You Have Diabetes, Exercise to Manage Your Blood Sugar Allergies/Adverse Reactions: Allergies No Known Allergies Allergy (Verified 01/23/18 17:43) Medications to take at Discharge insulin aspart U-100 100 unit/mL subcutaneous pen See Label Instructions SC QDAY 08/10/17 Ondansetron [Zofran Odt] 4 mg PO Q4H PRN PRN #7 tab.rapdis 01/03/18 Omeprazole 40 mg PO DAILY 01/23/18 Insulin Glargine,Hum.rec.anlog [Basaglar Kwikpen U-100] 20 unit SQ BID #0 01/24/18 Primary Care Physician: Scott Gomez MD [Primary Care Provider] - Within 2 Weeks Test Results: Test results from this visit will be discussed in further detail at your follow-up appointment, if applicable. Please Follow Up With: Ilda Joseph NP-C When: 1-2 weeks Proposed Discharge Date: 01/24/18
--- NOTE | 2018-01-24 11:48 | PCM.DC.SUM ---
Discharge Date and Diagnosis - Problem List Patient Problems: Active and Suspected Problems (Last Reviewed 01/18/18 @ 16:18 by Amanda Wilkinson) DKA (diabetic ketoacidoses) (Acute) Date of Admission: 01/23/18 Date of Discharge: 01/24/18 - Primary Discharge Diagnosis Active and Suspected Problems (Last Reviewed 01/18/18 @ 16:18 by Amanda Wilkinson) Fatty liver (Suspected) - Secondary Discharge Diagnosis Chronic Problems (Last Reviewed 01/18/18 @ 16:18 by Amanda Wilkinson) Suicidal ideations (Chronic) DM I (diabetes mellitus, type I), uncontrolled (Chronic) BG varied .Noted a pattern of BG elevated after breakfast and dinner and at bedtime last visit and ask him to specifically check 2 hours before and after these times which he did not do. Will increase basaglar to 20 twice daily but he did not do. I have ask him again to do as he gets much better control. When control seems better he may reduce to 18 twice daily. Long discussion about potential complications and need to try. Hospital Course and Treatment Operations: None Procedures: None Summary of Care Provided: The patient is a 17 year old M presents again with DKA. This is now the patient's eighth admission at this facility with DKA in the past calendar year. Patient states that he is taking his insulin as he is prescribed which includes 30 mg units of long-acting insulin at night +1 unit in the afternoon. Note from KASHIF joseph states that he should be on 18-20 twice daily. Patient states that that actually caused his blood sugar to go up. I told the patient that that does not make sense that his blood sugar go up despite being on more insulin. I did discuss this with KASHIF gordon who is states that she has been trying to increase his insulin and did recommend him being on twice daily insulin. It is now her recommendation that he be on 20 units twice a day and will make further modifications when he follows up in the office. Compliance is certainly an issue and I did address diet with the patient. Patient states that he does drink Gatorade and I told him to avoid that and to avoid sugary beverages and essentially told him not to drink his calories. Patient states that he does not eat sweets or other baked goods question if that is accurate or not. But patient will be discharged with instructions to take 20 units of his long-acting insulin twice daily which he has been told to do so previously. Physical exam: Patient is no acute distress and afebrile. Flat affect. [] Discharge Diet: 1800 Calorie Control Diet Discharge Activity: Return to Normal Activity Home Medications: Medications to take at Discharge insulin aspart U-100 100 unit/mL subcutaneous pen See Label Instructions SC QDAY 08/10/17 Ondansetron [Zofran Odt] 4 mg PO Q4H PRN PRN #7 tab.rapdis 01/03/18 Omeprazole 40 mg PO DAILY 01/23/18 Insulin Glargine,Hum.rec.anlog [Basaglar Kwikpen U-100] 20 unit SQ BID #0 01/24/18 Primary Care Physician: Scott Gomez MD [Primary Care Provider] - Within 2 Weeks Please Follow Up With: Ilda Joseph, SENIOR IT PROJECT MANAGER-C When: 1-2 weeks Patient Instructions: How to Check Your Blood Sugar, Healthy Meals for Diabetes, Diabetes: Understanding Carbohydrates, Eating Out When You Have Diabetes, Exercise to Manage Your Blood Sugar Disposition: Home Minutes spent on discharge:: 32 Patient Condition:: Fair Medical Necessity - Tobacco Use Smoking Status: Never smoker Meaningful Use Info Meaningful Use Diagnoses (Choose all that apply): None applicable Code Visit OBSV E&M: 17942 Observation care discharge
[2018-01-24 11:52] LABS: Anion Gap 12 (5-15); BUN 10 mg/dL (7-18); BUN/Creat Ratio 10.8 RATIO (10-20); Calcium,Total 7.9 mg/dL (8.5-10.1); Chloride 105 mmol/L (98-107); Creatinine, Serum 0.92 mg/dL (0.70-1.30); EST Glomerular Filtration Rate 112 mL/min (>60); Est Glom Filt Rate - Afr Amer 135 mL/min (>60); Estimated Creatinine Clearance 116.54 ml/min; Glucose 291 mg/dL (74-106); Potassium 4.3 mmol/L (3.5-5.1); Sodium Level 137 mmol/L (136-145)
--- NOTE | 2018-01-24 11:52 | DS.PCM_ITS ---
Discharge Date and Diagnosis - Problem List Patient Problems: Active and Suspected Problems (Last Reviewed 01/18/18 @ 16:18 by Amanda Wilkinson ) DKA (diabetic ketoacidoses) (Acute) Date of Admission: 01/23/18 Date of Discharge: 01/24/18 - Primary Discharge Diagnosis Active and Suspected Problems (Last Reviewed 01/18/18 @ 16:18 by Amanda Wilkinson ) Fatty liver (Suspected) - Secondary Discharge Diagnosis Chronic Problems (Last Reviewed 01/18/18 @ 16:18 by Amanda Wilkinson) Suicidal ideations (Chronic) DM I (diabetes mellitus, type I), uncontrolled (Chronic) BG varied .Noted a pattern of BG elevated after breakfast and dinner and at bedtime last visit and ask him to specifically check 2 hours before and after these times which he did not do. Will increase basaglar to 20 twice daily but he did not do. I have ask him again to do as he gets much better control. When control seems better he may reduce to 18 twice daily. Long discussion about potential complications and need to try. Hospital Course and Treatment Operations: None Procedures: None Summary of Care Provided: The patient is a 17 year old M presents again with DKA. This is now the patient 's eighth admission at this facility with DKA in the past calendar year. Patient states that he is taking his insulin as he is prescribed which includes 30 mg units of long-acting insulin at night +1 unit in the afternoon. Note from KASHIF joseph states that he should be on 18-20 twice daily. Patient states that that actually caused his blood sugar to go up. I told the patient that that does not make sense that his blood sugar go up despite being on more insulin. I did discuss this with KASHIF gordon who is states that she has been trying to increase his insulin and did recommend him being on twice daily insulin. It is now her recommendation that he be on 20 units twice a day and will make further modifications when he follows up in the office. Compliance is certainly an issue and I did address diet with the patient. Patient states that he does drink Gatorade and I told him to avoid that and to avoid sugary beverages and essentially told him not to drink his calories. Patient states that he does not eat sweets or other baked goods question if that is accurate or not. But patient will be discharged with instructions to take 20 units of his long-acting insulin twice daily which he has been told to do so previously. Physical exam: Patient is no acute distress and afebrile. Flat affect. [] Discharge Diet: 1800 Calorie Control Diet Discharge Activity: Return to Normal Activity Home Medications: Medications to take at Discharge insulin aspart U-100 100 unit/mL subcutaneous pen See Label Instructions SC QDAY 08/10/17 Ondansetron [Zofran Odt] 4 mg PO Q4H PRN PRN #7 tab.rapdis 01/03/18 Omeprazole 40 mg PO DAILY 01/23/18 Insulin Glargine,Hum.rec.anlog [Basaglar Kwikpen U-100] 20 unit SQ BID #0 Primary Care Physician: Scott Gomez MD [Primary Care Provider] - Within 2 Weeks Please Follow Up With: Ilda Joseph, DRIVER TRAINEE-C When: 1-2 weeks Patient Instructions: How to Check Your Blood Sugar, Healthy Meals for Diabetes , Diabetes: Understanding Carbohydrates, Eating Out When You Have Diabetes, Exercise to Manage Your Blood Sugar Disposition: Home Minutes spent on discharge:: 32 Patient Condition:: Fair Medical Necessity - Tobacco Use Smoking Status: Never smoker Meaningful Use Info Meaningful Use Diagnoses (Choose all that apply): None applicable Code Visit OBSV E&M: 71406 Observation care discharge
[2018-01-24] MEDS: Insulin Lispro 100 UNIT/ML INSULN.PEN SC (12:16)
--- NOTE | 2018-01-24 12:25 | NURSING ---
D/C instructions given. Pt states understanding. D/C'd with friend, ambulatory, w/o complication.
--- NOTE | 2018-01-24 12:27 | NURSING ---
REVIEWED D SHERMAN RN CHARTING AND AGREE WITH ASSESSMENT FINDINGS
[2018-01-26 10:29] LABS: Pathologist Review Reviewed
== END 2018-01-24 12:20 | disposition home or self-care (01) ==
LOC: ED 19:17 → ICU 21:34
PROVIDERS: Admitting Provider Hospitalist; Emergency Provider Emergency Medicine; Family Provider Pediatrics; PCP Pediatrics
DX: E10.10 Type 1 diabetes mellitus with ketoacidosis without coma (principal); Z79.4 Long term (current) use of insulin; E87.1 Hypo-osmolality and hyponatremia
CPT/HCPCS: 36600; 80048; 80053; 80076; 81001; 82009; 82803; 82962; 83690; 85025; 87641; 93005; 96365; 96366; 96367; 96372; 97802; 99285; J7030; A4216; J3490; J7799

== ENCOUNTER 2018-02-11 02:47 | Inpatient (IN) | payer MEDICAID, SELFPAY ==
[2018-02-11] VITALS (12 sets, daily range): BP systolic 101–134; BP diastolic 53–93; PULSE 74–118; RESP 12–22; TEMP 36.4–36.7; O2SAT 97–100; BMI 20.6; BMI 21.7
[2018-02-11] MEDS: 0.9% Normal Saline 1,000 ML 1000 ML IV (03:43)
--- NOTE | 2018-02-11 03:51 | ED.VISSUMM ---
- ER Visit Summary Date of Service: 02/11/18 Chief Complaint: Elevated blood sugar and feels dehydrated History of Present Illness: The patient is a 17 M diabetes. Prior history of DKA before. States this evening around 8 PM he had a blood sugar 556. And he feels dehydrated. He denies nausea, vomiting or diarrhea. He denies fever. He denies abdominal pain. Physical Examination: Well-appearing young male. Vital signs are stable and afebrile. Pulse ox 97% on room air no hypoxia. H EENT exam unremarkable. Moist wheeze membranes. Neck nontender no lymphadenopathy. Lungs there to auscultation bilaterally. Heart regular rhythm no murmur rate about 100. Abdomen is soft and nontender. Normal bowel sounds. Nondistended. No peritoneal signs. No right lower quadrant tenderness. No hernias or masses. Moving all 4 extremities. No edema. Skin no rashes. Back exam nontender. Neurologically he is awake and alert. Following commands. Answering questions. Normal speech. No focal motor deficits. Test Results: White count 6. Hemoglobin is 15. BMP shows an anion gap of 25. With a CO2 of 11. A blood sugar of 400 and a creatinine of 1.5. There are small amounts of serum ketones. Clinically and lab ambrose he is in early DKA. Emergency Department Course and Treatment: Patient treated with 1 L of normal saline. Patient will be given a second liter normal saline. Started on insulin drip. Treatment Plan: Insulin drip. I will speak to the hospitalist and I have admitted to the ICU. Disposition: Discharge Impression: Acute DKA (diabetic ketoacidosis) History of insulin-dependent diabetes This note was generated with [employer] dictation software. It may contain incorrect words, spelling, and punctuation that were not noted in review of the chart prior to signing ED Disposition - Plan for ED Patient: Chief Complaint: General Illness Referrals: Scott Gomez MD [Primary Care Provider] -
[2018-02-11 04:27] LABS: Absolute Lymphocyte Count 2.23 X10^3/ul (0.83-4.51); Absolute Neutrophil Count 3.2 X10^3/uL (2.0-7.7); Basophil# 0.05 X10^3/uL; Basophil% 0.8 % (0-1); Eosinophil# 0.43 X10^3/uL; Eosinophils% 6.5 % (0-5); Hematocrit 43.5 % (40-54); Hemoglobin 15.4 g/dl (13.0-16.5); Lymphocyte # 2.23 X10^3/ul (4.0); Lymphocyte % 33.5 % (19-41); Mean Corp Hgb Conc 35.4 g/gl (32-36); Mean Corpuscular Hgb 32.2 pg (27.0-32.0); Mean Corpuscular Volume 90.8 fL (80-94); Mean Platelet Vol. 9.5 fl (6.2-12.0); Monocyte# 0.65 X10^3/uL; Monocyte% 9.8 % (0-10); Neutrophil # 3.17 X10^3/uL (2.7-7.7); Neutrophil % 47.4 % (47-70); Platelet Count 329 K/mm3 (150-450); RBC Distribution Width CV 13.5 % (11.6-14.6); RBC Distribution Width SD 44.3 fl (35.1-43.9); Red Blood Count 4.79 M/mm3 (4.6-6.2); White Blood Count 6.7 K/mm3 (4.4-11.0)
[2018-02-11 04:29] LABS: POSITIVE COUNT YES; POSITIVE DIFFERENTIAL NO; POSITIVE MORPHOLOGY YES
[2018-02-11 04:33] LABS: Anion Gap 25 (5-15); BUN 15 mg/dL (7-18); Calcium,Total 8.5 mg/dL (8.5-10.1); Chloride 101 mmol/L (98-107); EST Glomerular Filtration Rate 64 mL/min (>60); Est Glom Filt Rate - Afr Amer 77 mL/min (>60); Estimated Creatinine Clearance 69.01 ml/min; Glucose 400 mg/dL (74-106); Sodium Level 137 mmol/L (136-145)
[2018-02-11] MEDS: 0.9% Normal Saline 1,000 ML 999 ML IV ×2 (04:57→09:53)
--- NOTE | 2018-02-11 05:11 | ED.RN ---
0505 BLOOD SUGAR 388.
[2018-02-11 05:21] LABS: Bedside Glucose 388 mg/dL (70-110)
--- NOTE | 2018-02-11 05:37 | PCM.HP.STD ---
Problem List (1) GERD (gastroesophageal reflux disease) Status: Chronic (2) DKA, type 1 Status: Acute History of Present Illness Date of Admission: 02/11/18 Chief Complaint: Elevated blood glucose ?1 day The patient is a 17 year old M with a significant history of type 1 diabetes and of multiple DKA who presents because his home blood glucose ?1 day was elevated. He reports a home blood glucose level as high as the 500s. Also he reports that he felt dehydrated because he was drinking so much fluid and he was urinating so much. He denies anorexia. Past Medical History Past Medical History (Chronic Problems): Chronic Problems (Last Reviewed 01/18/18 @ 16:18 by Amanda Wilkinson) GERD (gastroesophageal reflux disease) (Chronic) Suicidal ideations (Chronic) DM I (diabetes mellitus, type I), uncontrolled (Chronic) BG varied .Noted a pattern of BG elevated after breakfast and dinner and at bedtime last visit and ask him to specifically check 2 hours before and after these times which he did not do. Will increase basaglar to 20 twice daily but he did not do. I have ask him again to do as he gets much better control. When control seems better he may reduce to 18 twice daily. Long discussion about potential complications and need to try. Medical History: Medical History (Last Reviewed 01/18/18 @ 16:18 by Amanda Wilkinson) Anxiety disorder F41.9 Back problem M53.9 Bone fracture T14.8XXA Diabetes type 1, uncontrolled E10.65 Dx : age 2 Last exacerbation : DKA : 09/08/17 Hypoglycemic episode : never ER visit : 09/13/17 Hearing problem H91.90 Liver disease K76.9 Seizure R56.9 Vision problem H54.7 Allergies No Known Allergies Allergy (Verified 02/11/18 02:51) Home Medications: Ambulatory Orders Medication Instructions Recorded insulin aspart U-100 100 unit/mL See Label Instructions SC QDAY 08/10/17 subcutaneous pen Ondansetron [Zofran Odt] 4 mg PO Q4H PRN PRN #7 tab.rapdis 01/03/18 Omeprazole 40 mg PO DAILY 01/23/18 Insulin Glargine,Hum.rec.anlog 31 unit SQ QHS 02/11/18 [Basaglar Kwikpen U-100] Surgical History: Surgical History (Last Reviewed 02/11/18 @ 07:49 by Marcelo Dukes MD) S/p bilateral myringotomy with tube placement Z96.22 Surgical History: - - BL ear tubes. Psychiatric History: Anxiety, Depression, Prior suicide attempt Smoking Status: Never smoker - *Family History Maternal Family History: Family History (Last Reviewed 01/18/18 @ 16:18 by Amanda Wilkinson) Mother Kidney disease History Items: Heart Disease, Renal Disease Paternal Family History: Family History (Last Reviewed 01/18/18 @ 16:18 by Amanda Wilkinson) Mother Kidney disease History Items: Heart Disease, - - Paternal family males w/ frequent hearing disorder. Review of Systems Constitutional: Denies: Chills, Fever, Weight Change HEENT: Denies: Head Aches, Sinus Congestion, Sinus Drainage Cardiovascular: Denies: Chest Pain, Palpitations Respiratory: Denies: Cough, Shortness of breath at rest, Sputum production Gastrointestinal: Reports: Abdominal Pain - Mild, that he attributes to playing basketball. Genitourinary: Reports: Frequency - Increased frequency Musculoskeletal: Denies: Joint Pain, Joint Tenderness Skin: Denies: Rash, Wounds Neurological: Denies: Numbness, Tingling, Focal weakness Psychiatric: Reports: Anxiety Hematologic/ Lymphatic: Denies: Easy Bruising, Easy Bleeding VTE Information - Inpt Only VTE Present on Admission: No VTE Mechan Device Prophylaxis: None VTE Pharm Prophylaxis ordered?: No Patient Problems: Active and Suspected Problems (Last Reviewed 01/18/18 @ 16:18 by Amanda Wilkinson) DKA, type 1 (Acute) - Physical Exam General: Alert, Oriented x3, Cooperative HEENT: Atraumatic, PERRLA, EOMI, Normocephalic Neck: Supple, No JVD, Negative Carotid Bruits Lungs: Clear to auscultation, Normal air movement Cardiovascular: Regular rate, No murmurs Abdomen: Bowel Sounds Present Extremities: No edema, Capillary Refill Less than 3 Seconds Skin: No rashes, No breakdown Musculoskeletal: No Tenderness to Palpation of Joints or Extremities Neurological: Cranial nerves II-XII grossly intact Vital Signs Temp Pulse Resp BP Pulse Ox 97.7 F L 78 17 109/72 98 02/11/18 02:48 02/11/18 05:13 02/11/18 05:13 02/11/18 05:13 02/11/18 05:13 Oxygen Delivery Method Room Air Weight: 61.6 kg Body Mass Index (BMI) 20.6 Finger Stick Blood Glucose 388 Laboratory Tests Past 24 Hrs 02/11/18 02/11/18 02/11/18 03:40 03:40 03:40 WBC 6.7 RBC 4.79 Hgb 15.4 Hct 43.5 MCV 90.8 MCH 32.2 H MCHC 35.4 RDW 13.5 RDW Differential 44.3 H Plt Count 329 MPV 9.5 Immature Gran % (Auto) 2.000 H Neut % (Auto) 47.4 Lymph % (Auto) 33.5 Grundy % (Auto) 9.8 Eos % (Auto) 6.5 H Baso % (Auto) 0.8 Absolute Neuts (auto) 3.2 Absolute Lymphs (auto) 2.23 Total Counted Not Reportable Diff Path Review May foll Sodium 137 Potassium 4.0 Chloride 101 Carbon Dioxide 11.0 L Anion Gap 25 H BUN 15 Creatinine 1.50 H Estim Creat Clear Calc 69.01 Est GFR (MDRD) Af Amer 77 Est GFR (MDRD) Non-Af 64 BUN/Creatinine Ratio 10.0 Glucose 400 H Calcium 8.5 Acetone Level SMALL H POC Glucose 02/11/18 05:05 POC Glucose 388 H Assessment/Plan All Active Problems (Last Reviewed 01/18/18 @ 16:18 by Amanda Wilkinson) DKA, type 1 (Acute) DKA (diabetic ketoacidoses) (Acute) The patient is a 17 year old M with a significant history of type 1 diabetes and of multiple DKA who presents because his home blood glucose ?1 day was elevated and and she was found to be in DKA DKA Status post IV infusion and IV normal saline bolus at emergency department. The patient reports compliance with home insulin therapy His DKA could be secondary to insufficient insulin to meet his metabolic demands or stress. No indication of infection at this time. Serum glucose 400 acetone level small Anion gap of 25 Sodium 137, . Corrected sodium 140 Insulin drip started from emergency department; continue Because of potassium of 4.0 we will start patient on half-normal saline with potassium. BMP every 4 hours to calculate anion gap. N.p.o. for now Lactic acid ordered Admitted to ICU ICU electrolyte protocol ordered DVT prophylaxis Ambulation. Code Visit Inpatient E&M: 78264 Init Hosp L2
--- NOTE | 2018-02-11 05:47 | EKG12_ITS ---
Test Reason : DKA Blood Pressure : / mmHG Vent. Rate : 078 BPM Atrial Rate : 078 BPM P-R Int : 140 ms QRS Dur : 088 ms QT Int : 384 ms P-R-T Axes : 060 022 031 degrees QTc Int : 437 ms Normal sinus rhythm Normal ECG Confirmed by GIOVANI GROVER MD ([id number]), assignment editor CHRISSIE CACERES ([id number] on 02/13/2018 3:10:21 PM Referred By: KWABENA Confirmed By:GIOVANI GROVER MD
[2018-02-11 06:16] LABS: Bedside Glucose 307 mg/dL (70-110)
[2018-02-11 07:16] LABS: Bedside Glucose 260 mg/dL (70-110)
--- NOTE | 2018-02-11 08:12 | ED.RN ---
insulin running at 2u/hr. per bs protocol to decrease 2units. insulin stopped at this time.
[2018-02-11 08:20] LABS: Bedside Glucose 198 mg/dL (70-110)
[2018-02-11 09:05] LABS: Bedside Glucose 231 mg/dL (70-110)
[2018-02-11 09:21] LABS: Anion Gap 9 (5-15); BUN 12 mg/dL (7-18); BUN/Creat Ratio 12.7 RATIO (10-20); Calcium,Total 7.5 mg/dL (8.5-10.1); Chloride 111 mmol/L (98-107); Creatinine, Serum 0.95 mg/dL (0.70-1.30); EST Glomerular Filtration Rate 109 mL/min (>60); Est Glom Filt Rate - Afr Amer 132 mL/min (>60); Estimated Creatinine Clearance 108.97 ml/min; Glucose 213 mg/dL (74-106); Potassium 3.9 mmol/L (3.5-5.1); Sodium Level 140 mmol/L (136-145)
[2018-02-11 09:59] LABS: Lactic Acid 1.6 mmol/L (0.4-2.0)
[2018-02-11 10:16] LABS: Bedside Glucose 328 mg/dL (70-110)
[2018-02-11] MEDS: 0.9% Normal Saline 1,000 ML 500 ML IV (10:59)
[2018-02-11 11:10] LABS: Bedside Glucose 258 mg/dL (70-110)
[2018-02-11 12:10] LABS: Bedside Glucose 166 mg/dL (70-110)
[2018-02-11 12:51] LABS: Anion Gap 10 (5-15); BUN 11 mg/dL (7-18); BUN/Creat Ratio 12.4 RATIO (10-20); Calcium,Total 7.3 mg/dL (8.5-10.1); Chloride 113 mmol/L (98-107); Creatinine, Serum 0.88 mg/dL (0.70-1.30); EST Glomerular Filtration Rate 118 mL/min (>60); Est Glom Filt Rate - Afr Amer 142 mL/min (>60); Estimated Creatinine Clearance 123.75 ml/min; Glucose 183 mg/dL (74-106); Potassium 3.2 mmol/L (3.5-5.1); Sodium Level 143 mmol/L (136-145)
[2018-02-11 13:21] LABS: Bedside Glucose 141 mg/dL (70-110)
--- NOTE | 2018-02-11 13:38 | NURSING ---
dr mckeon updated on condition & labs orders received
[2018-02-11] MEDS: Insulin Lispro 100 UNIT/ML INSULN.PEN 10 UNIT SC (14:42)
[2018-02-11] MEDS: Pantoprazole Sodium 40 MG Tablet PO (14:44)
[2018-02-11 16:20] LABS: Bedside Glucose 363 mg/dL (70-110)
--- NOTE | 2018-02-11 17:14 | NURSING ---
report called to med-surg transferred per wheelchair with belongings to room 319
[2018-02-11] MEDS: 0.9% Normal Saline 1,000 ML 150 ML IV (18:29)
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
[2018-02-11 22:06] LABS: Anion Gap 8 (5-15); BUN 11 mg/dL (7-18); BUN/Creat Ratio 10.7 RATIO (10-20); Calcium,Total 8.3 mg/dL (8.5-10.1); Chloride 108 mmol/L (98-107); Creatinine, Serum 1.03 mg/dL (0.70-1.30); EST Glomerular Filtration Rate 99 mL/min (>60); Est Glom Filt Rate - Afr Amer 120 mL/min (>60); Estimated Creatinine Clearance 105.73 ml/min; Glucose 320 mg/dL (74-106); Potassium 3.8 mmol/L (3.5-5.1); Sodium Level 139 mmol/L (136-145)
[2018-02-11] MEDS: Insulin Lispro 100 UNIT/ML INSULN.PEN SC (22:23)
[2018-02-11 23:21] LABS: Bedside Glucose 294 mg/dL (70-110)
[2018-02-12] MEDS: 0.9% Normal Saline 1,000 ML 150 ML IV ×2 (01:02→07:28)
[2018-02-12 03:35] VITALS: BP 115/81; PULSE 68; RESP 16; TEMP 36.6; O2SAT 98
[2018-02-12 06:40] LABS: Anion Gap 10 (5-15); BUN 7 mg/dL (7-18); BUN/Creat Ratio 10.4 RATIO (10-20); Chloride 113 mmol/L (98-107); Creatinine, Serum 0.67 mg/dL (0.70-1.30); EST Glomerular Filtration Rate 161 mL/min (>60); Est Glom Filt Rate - Afr Amer 195 mL/min (>60); Estimated Creatinine Clearance 164.79 ml/min; Glucose 128 mg/dL (74-106); Potassium 2.6 mmol/L (3.5-5.1); Sodium Level 146 mmol/L (136-145)
[2018-02-12 07:01] LABS: Bedside Glucose 129 mg/dL (70-110)
[2018-02-12 08:20] VITALS: BP 136/94; PULSE 84; RESP 18; TEMP 36.6; O2SAT 100
[2018-02-12] MEDS: Insulin Lispro 100 UNIT/ML INSULN.PEN 10 UNIT SC ×3 (08:22→17:01)
--- NOTE | 2018-02-12 11:30 | CASEMGMT ---
Per Dr. Mccracken, patient needs to be seen by an athletic trainer. Dr. Mccracken made appt himself for [facility] in [place]. Dr. Mccracken updated nursing that he would talk to grandmother if needed. Patient lives with grandmother and has testing supplies at home. Patient follow with KASHIF Joseph at [facility]. CM to remain available should discharge needs arise. Disposition Plan: Patient to discharge home with family support and follow-up plans in place.
[2018-02-12] MEDS: Insulin Lispro 100 UNIT/ML INSULN.PEN SC ×2 (12:39→17:01)
[2018-02-12 12:46] LABS: Bedside Glucose 209 mg/dL (70-110)
[2018-02-12 13:27] LABS: Anion Gap 8 (5-15); BUN 6 mg/dL (7-18); BUN/Creat Ratio 8.3 RATIO (10-20); Calcium,Total 8.4 mg/dL (8.5-10.1); Chloride 110 mmol/L (98-107); Creatinine, Serum 0.72 mg/dL (0.70-1.30); EST Glomerular Filtration Rate 149 mL/min (>60); Est Glom Filt Rate - Afr Amer 181 mL/min (>60); Estimated Creatinine Clearance 153.35 ml/min; Glucose 251 mg/dL (74-106); Sodium Level 140 mmol/L (136-145)
--- NOTE | 2018-02-12 13:29 | PCM.DC ---
- Discharge Diagnoses Current Active Problems: Current Active and Chronic Problems (Last Reviewed 01/18/18 @ 16:18 by Amanda Wilkinson) GERD (gastroesophageal reflux disease) (Chronic) DKA, type 1 (Acute) You will use the following diet at home:: Calorie/Carbohydrate Controlled (specify 1200, 1400, etc) - 2200 Your food should be the consistency of: Regular Your liquids should be the consistency of: Regular/Thin Discharge Activity: Return to Normal Activity Weight Bearing Status: Full weight bearing Allergies/Adverse Reactions: Allergies No Known Allergies Allergy (Verified 02/11/18 02:51) Medications to take at Discharge insulin aspart U-100 100 unit/mL subcutaneous pen See Label Instructions SC QDAY 08/10/17 Ondansetron [Zofran Odt] 4 mg PO Q4H PRN PRN #7 tab.rapdis 01/03/18 Omeprazole 40 mg PO DAILY 01/23/18 Insulin Aspart [Novolog Flexpen (BKC)] 10 units SC TIDCM #1 flexpen 02/12/18 Insulin Glargine,Hum.rec.anlog [Basaglar Kwikpen U-100] 20 unit SQ BIDAC #1 insuln.pen 02/12/18 The following prescriptions were given: Insulin Glargine,Hum.rec.anlog [Basaglar Kwikpen U-100] 20 unit SQ BIDAC #1 insuln.pen Insulin Aspart [Novolog Flexpen (BKC)] 10 units SC TIDCM #1 flexpen Primary Care Physician: Scott Gomez MD [Primary Care Provider] - Please follow up with your Primary Care Physician in: in 2-3 weeks Test Results: Test results from this visit will be discussed in further detail at your follow-up appointment, if applicable. Please Follow Up With: Dr. Caldwell When: tomorrow at 845 am [address] [facility], [facility], [address] [place]
--- NOTE | 2018-02-12 13:35 | DCINST_ITS ---
- Discharge Diagnoses Current Active Problems: Current Active and Chronic Problems (Last Reviewed 01/18/18 @ 16:18 by Amanda Wilkinson) GERD (gastroesophageal reflux disease) (Chronic) DKA, type 1 (Acute) You will use the following diet at home:: Calorie/Carbohydrate Controlled ( specify 1200, 1400, etc) - 2200 Your food should be the consistency of: Regular Your liquids should be the consistency of: Regular/Thin Discharge Activity: Return to Normal Activity Weight Bearing Status: Full weight bearing Allergies/Adverse Reactions: Allergies No Known Allergies Allergy (Verified 02/11/18 02:51) Medications to take at Discharge insulin aspart U-100 100 unit/mL subcutaneous pen See Label Instructions SC QDAY 08/10/17 Ondansetron [Zofran Odt] 4 mg PO Q4H PRN PRN #7 tab.rapdis 01/03/18 Omeprazole 40 mg PO DAILY 01/23/18 Insulin Aspart [Novolog Flexpen (BKC)] 10 units SC TIDCM #1 flexpen 02/12/18 Insulin Glargine,Hum.rec.anlog [Basaglar Kwikpen U-100] 20 unit SQ BIDAC #1 insuln.pen 02/12/18 The following prescriptions were given: Insulin Glargine,Hum.rec.anlog [Basaglar Kwikpen U-100] 20 unit SQ BIDAC #1 insuln.pen Insulin Aspart [Novolog Flexpen (BKC)] 10 units SC TIDCM #1 flexpen Primary Care Physician: Scott Gomez MD [Primary Care Provider] - Please follow up with your Primary Care Physician in: in 2-3 weeks Test Results: Test results from this visit will be discussed in further detail at your follow- up appointment, if applicable. Please Follow Up With: Dr. Caldwell When: tomorrow at 845 am [address] [facility], [facility], [address] [place]
[2018-02-12 13:36] LABS: Pathologist Review Reviewed
[2018-02-12 16:20] VITALS: BP 133/95; PULSE 80; RESP 16; TEMP 36.6; O2SAT 99
--- NOTE | 2018-02-12 16:44 | NURSING ---
discharge instructions reviewed with patient and grandmother (via phone). per grandma, she has an appt 02/13 and will not be able to get Calob to appt to see needle loom tender RECORDING ARTIST. will call office to reschedule appt.
[2018-02-12 17:20] LABS: Bedside Glucose 182 mg/dL (70-110)
--- NOTE | 2018-02-13 10:37 | PCM.DC.SUM ---
Discharge Date and Diagnosis Date of Admission: 02/11/18 Date of Discharge: 02/12/18 - Primary Discharge Diagnosis #1 diabetic ketoacidosis #2 hypokalemia #3 uncontrolled type 1 diabetes - Secondary Discharge Diagnosis Chronic Problems (Last Reviewed 01/18/18 @ 16:18 by Amanda Wilkinson) GERD (gastroesophageal reflux disease) (Chronic) Suicidal ideations (Chronic) DM I (diabetes mellitus, type I), uncontrolled (Chronic) BG varied .Noted a pattern of BG elevated after breakfast and dinner and at bedtime last visit and ask him to specifically check 2 hours before and after these times which he did not do. Will increase basaglar to 20 twice daily but he did not do. I have ask him again to do as he gets much better control. When control seems better he may reduce to 18 twice daily. Long discussion about potential complications and need to try. Hospital Course and Treatment Operations: None Procedures: None Summary of Care Provided: The patient is a 17 year old M was seen in the emergency room at [facility] with a chief complaint of elevated blood sugars and feeling of dehydration. Patient denied any nausea vomiting or diarrhea, labs were remarkable for an anion gap of 25, blood sugar was 400 and creatinine was 1.5. There were small amounts of serum ketones present. Patient was felt to be in DKA and was admitted to ICU on insulin drip, the next day he was transferred out of ICU, low potassium was corrected with potassium administration. I had a long talk with the patient concerning his outpatient care for his type 1 diabetes, patient stated that he is not ever seen an adult telecommunications network planner. I made arrangements for him to see Dr. Caldwell on 02/13/18 for an evaluation. Patient was seen and examined on 02/12/18 and felt to be in stable condition for discharge home Discharge Activity: Return to Normal Activity Weight Bearing Status: Full weight bearing Home Medications: Medications to take at Discharge insulin aspart U-100 100 unit/mL subcutaneous pen See Label Instructions SC QDAY 08/10/17 Ondansetron [Zofran Odt] 4 mg PO Q4H PRN PRN #7 tab.rapdis 01/03/18 Omeprazole 40 mg PO DAILY 01/23/18 Insulin Aspart [Novolog Flexpen (BKC)] 10 units SC TIDCM #1 flexpen 02/12/18 Insulin Glargine,Hum.rec.anlog [Basaglar Kwikpen U-100] 20 unit SQ BIDAC #1 insuln.pen 02/12/18 Following Prescrptions Were Given to Patient: Insulin Glargine,Hum.rec.anlog [Basaglar Kwikpen U-100] 20 unit SQ BIDAC #1 insuln.pen Insulin Aspart [Novolog Flexpen (BKC)] 10 units SC TIDCM #1 flexpen Primary Care Physician: Scott Gomez MD [Primary Care Provider] - Please follow up with your Primary Care Physician in: in 2-3 weeks Please Follow Up With: Dr. Caldwell When: Monday Disposition: Home Minutes spent on discharge:: 32 Patient Condition:: Stable Medical Necessity - Tobacco Use Smoking Status: Never smoker Meaningful Use Info Meaningful Use Diagnoses (Choose all that apply): None applicable Code Visit Inpatient E&M: 61728 Disch Hosp
--- NOTE | 2018-02-13 10:45 | DS.PCM_ITS ---
Discharge Date and Diagnosis Date of Admission: 02/11/18 Date of Discharge: 02/12/18 - Primary Discharge Diagnosis #1 diabetic ketoacidosis #2 hypokalemia #3 uncontrolled type 1 diabetes - Secondary Discharge Diagnosis Chronic Problems (Last Reviewed 01/18/18 @ 16:18 by Amanda Wilkinson) GERD (gastroesophageal reflux disease) (Chronic) Suicidal ideations (Chronic) DM I (diabetes mellitus, type I), uncontrolled (Chronic) BG varied .Noted a pattern of BG elevated after breakfast and dinner and at bedtime last visit and ask him to specifically check 2 hours before and after these times which he did not do. Will increase basaglar to 20 twice daily but he did not do. I have ask him again to do as he gets much better control. When control seems better he may reduce to 18 twice daily. Long discussion about potential complications and need to try. Hospital Course and Treatment Operations: None Procedures: None Summary of Care Provided: The patient is a 17 year old M was seen in the emergency room at [facility] with a chief complaint of elevated blood sugars and feeling of dehydration. Patient denied any nausea vomiting or diarrhea, labs were remarkable for an anion gap of 25, blood sugar was 400 and creatinine was 1.5. There were small amounts of serum ketones present. Patient was felt to be in DKA and was admitted to ICU on insulin drip, the next day he was transferred out of ICU, low potassium was corrected with potassium administration. I had a long talk with the patient concerning his outpatient care for his type 1 diabetes, patient stated that he is not ever seen an adult vice president of development. I made arrangements for him to see Dr. Caldwell on 02/13/18 for an evaluation. Patient was seen and examined on 02/12/18 and felt to be in stable condition for discharge home Discharge Activity: Return to Normal Activity Weight Bearing Status: Full weight bearing Home Medications: Medications to take at Discharge insulin aspart U-100 100 unit/mL subcutaneous pen See Label Instructions SC QDAY 08/10/17 Ondansetron [Zofran Odt] 4 mg PO Q4H PRN PRN #7 tab.rapdis 01/03/18 Omeprazole 40 mg PO DAILY 01/23/18 Insulin Aspart [Novolog Flexpen (BKC)] 10 units SC TIDCM #1 flexpen 02/12/18 Insulin Glargine,Hum.rec.anlog [Basaglar Kwikpen U-100] 20 unit SQ BIDAC #1 insuln.pen 02/12/18 Following Prescrptions Were Given to Patient: Insulin Glargine,Hum.rec.anlog [Basaglar Kwikpen U-100] 20 unit SQ BIDAC #1 insuln.pen Insulin Aspart [Novolog Flexpen (BKC)] 10 units SC TIDCM #1 flexpen Primary Care Physician: Scott Gomez MD [Primary Care Provider] - Please follow up with your Primary Care Physician in: in 2-3 weeks Please Follow Up With: Dr. Caldwell When: Monday Disposition: Home Minutes spent on discharge:: 32 Patient Condition:: Stable Medical Necessity - Tobacco Use Smoking Status: Never smoker Meaningful Use Info Meaningful Use Diagnoses (Choose all that apply): None applicable Code Visit Inpatient E&M: 73494 Disch Hosp
--- NOTE | 2018-02-13 16:54 | CASEMGMT ---
ROMANA WHITE Discharge Follow-up Phone Call: LUZBereket: 13 Strata: 4 Call Date: 02/13/18 Discharge Date: 02/12/18 Time of Call: 1655 Duration: 1 min Admitting Diagnosis: DKA ROMANA WHITE attempted to complete follow-up phone call after recent hospitalization. No answer, voice message left with return contact information. Patient was to have appt with [facility] today.
== END 2018-02-12 17:35 | disposition home or self-care (01) | DRG 295 ==
LOC: ED 04:08 → ICU 05:49 → MS3 17:32
PROVIDERS: Admitting Provider Hospitalist; Emergency Provider Emergency Medicine; Family Provider Pediatrics; PCP Pediatrics; Visit Provider Internal Medicine
DX: E10.10 Type 1 diabetes mellitus with ketoacidosis without coma (principal); E87.6 Hypokalemia; K21.9 Gastro-esophageal reflux disease without esophagitis; F41.9 Anxiety disorder, unspecified; R45.851 Suicidal ideations; Z91.5 Personal history of self-harm; Z79.4 Long term (current) use of insulin
CPT/HCPCS: 36415; 80048; 82009; 82962; 83605; 85025; 93005; 99283; J7030; A4216

== ENCOUNTER 2018-05-09 23:07 | Inpatient (IN) | payer MEDICAID, SELFPAY ==
[2018-05-09 23:08] VITALS: BP 146/92; PULSE 136; RESP 30; TEMP 36.4; O2SAT 100; BMI 21.7
--- NOTE | 2018-05-09 23:29 | ED.DCSUM_ITS ---
- ER Visit Summary Date of Service: 05/09/18 Chief Complaint: Dizzy History of Present Illness: The patient is a 17 M who reports feeling dizzy and stressed at work this evening. He vomited a few times. He then developed abdominal pain across his upper abdomen and heavy breathing while walking home. He reports seeing black spots that affects both his eyes. He does have a history of diabetes and DKA. He reports good blood sugar control recently. He does state he last ate at breakfast this morning. It is not normal for him to skip meals throughout the day. He states he did take his insulin. Physical Examination: Blood pressure is 146/92, temperature 97.5, heart rate 136, respiratory rate 30, pulse ox 100% on room air. Head neck examination is grossly unremarkable. Heart is tachycardic and regular. Lung sounds clear. He is tachypneic. Abdomen is soft with tenderness in the epigastric and right upper quadrant region. He has hypoactive bowel sounds. Test Results: EKG is sinus tach at 108. CBC was hemoglobin concentrated at 16.8. Chemistry studies reveal sodium of 130 with a glucose of 676. Bicarb is 6, anion gap is 29. Creatinine is 1.36. LFTs are significant for an alk phos of 186, ALT 196, AST of 88. Lipase is normal. Serum acetone is large. Emergency Department Course and Treatment: Patient was given IV fluids, Phenergan, Zofran,. Insulin drip was started once 2 L of IV fluids were in. Patient has been admitted and will be monitored in the ICU. Treatment Plan: [] Disposition: Admit Impression: DKA This note was generated with [employer] dictation software. It may contain incorrect words, spelling, and punctuation that were not noted in review of the chart prior to signing ED Disposition - Plan for ED Patient: Chief Complaint: Nausea/Vomiting
[2018-05-09] MEDS: 0.9% Normal Saline 1,000 ML 1000 ML IV (23:40)
[2018-05-09 23:57] LABS: Absolute Lymphocyte Count 3.16 X10^3/ul (0.83-4.51); Absolute Neutrophil Count 5.3 X10^3/uL (2.0-7.7); Basophil# 0.07 X10^3/uL; Basophil% 0.7 % (0-1); Eosinophil# 0.04 X10^3/uL; Eosinophils% 0.4 % (0-5); Hematocrit 48.6 % (40-54); Hemoglobin 16.8 g/dl (13.0-16.5); Lymphocyte # 3.16 X10^3/ul (4.0); Lymphocyte % 33.5 % (19-41); Mean Corp Hgb Conc 34.6 g/gl (32-36); Mean Corpuscular Hgb 32.2 pg (27.0-32.0); Mean Corpuscular Volume 93.1 fL (80-94); Mean Platelet Vol. 9.8 fl (6.2-12.0); Monocyte# 0.62 X10^3/uL; Monocyte% 6.6 % (0-10); Neutrophil # 5.31 X10^3/uL (2.7-7.7); Neutrophil % 56.5 % (47-70); Platelet Count 417 K/mm3 (150-450); RBC Distribution Width CV 14.1 % (11.6-14.6); RBC Distribution Width SD 47.2 fl (35.1-43.9); Red Blood Count 5.22 M/mm3 (4.6-6.2); White Blood Count 9.4 K/mm3 (4.4-11.0)
[2018-05-10] VITALS (30 sets, daily range): BP systolic 91–153; BP diastolic 43–98; PULSE 81–143; RESP 12–26; TEMP 36.4–37.2; O2SAT 97–100; BMI 19.5
[2018-05-10 00:06] LABS: POSITIVE COUNT YES; POSITIVE DIFFERENTIAL NO; POSITIVE MORPHOLOGY YES
--- NOTE | 2018-05-10 00:33 | ED.RN ---
DR STAFFORD NOTIFIED OF CO2 AND GLUCOSE RESULTS
[2018-05-10] MEDS: 0.9% Normal Saline 1,000 ML 150 ML IV (01:01)
[2018-05-10] MEDS: 0.9% Normal Saline 1,000 ML 999 ML IV (01:05)
[2018-05-10] MEDS: proMETHazine 25 MG/ML Syringe 12.5 MG IV (01:13)
--- NOTE | 2018-05-10 01:26 | NURSING ---
patient vomited about 650cc's of green liquid. Dr. Glover made aware.
--- NOTE | 2018-05-10 01:40 | NURSING ---
BEDSIDE BLOOD GLUCOSE READS OVER 600, DR. STAFFORD MADE AWARE.
--- NOTE | 2018-05-10 01:42 | HP.PCM_ITS ---
Problem List (1) DKA (diabetic ketoacidoses) Status: Acute Qualifiers: Diabetes mellitus type: type 1 Diabetes mellitus complication detail: without coma Qualified Code(s): E10.10 - Type 1 diabetes mellitus with ketoacidosis without coma (2) Anxiety and depression Status: Chronic (3) GERD (gastroesophageal reflux disease) Status: Chronic Qualifiers: Esophagitis presence: esophagitis presence not specified Qualified Code(s): K21.9 - Gastro-esophageal reflux disease without esophagitis (4) Fatty liver Status: Chronic (5) DM I (diabetes mellitus, type I), uncontrolled Status: Chronic History of Present Illness Date of Admission: 05/10/18 Chief Complaint: Lightheadedness, dizziness, nausea and emesis, generalized abdominal pain. The patient is a 17 y/o M w/ PMHx: Diabetes mellitus type I w/ serial admissions for DKA, Prior Noted Elevated Liver Enzymes of unclear etiology following w/ [facility], Anxiety and Depression w/ prior suicidal ideation admissions following w/ Crisis Center who presents to the [facility] ED on 05/10/18 with lightheadedness, dizziness, nausea and emesis as well as generalized abdominal pain. He notes recently improved BS control. He states he has been skipping meals regularly but has been compliant with insulin. On most recent discharge 02/12/18 patient was arranged to be evaluated by Dr. Caldwell on 02/13/18, Adult Beverage Manager and has been following with successfully since. Work-up in the ED included T 97.5, HR 136-->114, BP 146.92-->136/75, RR 30-->19, 100% on RA, CBC w/ WBC 9.4, Hgb 16.8, Plts 417 without marked shift, CMP w/ sodium 130, chloride 95, carbon dioxide 6, anion gap 29, BUN/creatinine 18/1.36, glucose 676, AST/ALT 88/196, alk phos 186, lipase 33, acetone large. In the ED patient administered NS 3L bolus, phenergan IV, zofran IV, insulin drip initiated. Past Medical History Past Medical History (Chronic Problems): Chronic Problems (Last Reviewed 03/20/18 @ 15:05 by Amanda Wilkinson) Anxiety and depression (Chronic) GERD (gastroesophageal reflux disease) (Chronic) Fatty liver (Chronic) Suicidal ideations (Chronic) DM I (diabetes mellitus, type I), uncontrolled (Chronic) Medical History: Medical History (Last Reviewed 03/20/18 @ 15:05 by Amanda Wilkinson) Anxiety disorder F41.9 Back problem M53.9 Bone fracture T14.8XXA Diabetes type 1, uncontrolled E10.65 Dx : age 2 Last exacerbation : DKA : 01/31 Hypoglycemic episode : never ER visit : 01/31 Hearing problem H91.90 Liver disease K76.9 Seizure R56.9 Vision problem H54.7 Allergies No Known Allergies Allergy (Verified 05/09/18 23:11) Home Medications: Ambulatory Orders Medication Instructions Recorded insulin aspart U- 100 100 unit/mL See Rx Instructions SC QDAY 08/10/17 subcutaneous pen Insulin Glargine,Hum.rec.anlog 20 unit SQ BIDAC #1 insuln.pen 02/12/18 [Basaglar Kwikpen U-100] Surgical History: Surgical History (Last Reviewed 03/20/18 @ 15:05 by Amanda Wilkinson) S/p bilateral myringotomy with tube placement Z96.22 Surgical History: - - BL ear tubes. Psychiatric History: Anxiety, Depression, Prior suicide attempt Lives: With Family - Lives with his grandmother. Smoking Status: Never smoker Tobacco Use: Non-smoker Alcohol: None Drugs: None - *Family History Maternal Family History: Family History (Last Reviewed 03/20/18 @ 15:05 by Amanda Wilkinson) Mother Kidney disease History Items: Heart Disease, Renal Disease Paternal Family History: Family History (Last Reviewed 03/20/18 @ 15:05 by Amanda Wilkinson) Mother Kidney disease History Items: Heart Disease, - - Paternal family males w/ frequent hearing disorder. Review of Systems Constitutional: Reports: Anorexia, Malaise, Weakness, Fatigue. Denies: Chills, Fever, Weight Change HEENT: Denies: Head Aches, Sinus Congestion, Sinus Drainage Cardiovascular: Denies: Chest Pain, Palpitations Respiratory: Denies: Cough, Shortness of breath at rest, Sputum production Gastrointestinal: Reports: Abdominal Pain, Nausea, Vomiting Genitourinary: Denies: Dysuria Musculoskeletal: Denies: Joint Pain, Joint Tenderness Skin: Denies: Rash, Wounds Neurological: Denies: Numbness, Tingling, Focal weakness Psychiatric: Reports: Anxiety, Depression. Denies: Homicidal Ideations, Suicidal Ideations Hematologic/ Lymphatic: Denies: Easy Bruising, Easy Bleeding VTE Information - Inpt Only VTE Present on Admission: No VTE Mechan Device Prophylaxis: SCD's VTE Pharm Prophylaxis ordered?: Yes Subjective: Laying in the ED bed, ill appearing, increased RR, lethargic. Objective: Physical Examination: General: awakens to stimuli, lethargic, intermittently alert, oriented x 3 once alert, remains cooperative, laying in the ED bed, increased RR, ill appearing. Skin: normal color, turgor, no icterus, cyanosis. HEENT: AT/NC, EOMI, PERRLA, dry MM, injected sclera BL, no carotid bruits or JVD noted. Lungs: Diminished BS BL bases, increased RR, accessory muscle usage, no rales, ronchi or wheezing. Heart: Tachycardic with regular rhythm; no gallop, rub audible. Abdomen: soft, generalized TTP, ND, normal BS, + HM although difficult assessment secondary to discomfort. Extremities: no cyanosis, clubbing, or edema. Neurological: awakens to stimuli, lethargic, intermittently alert, oriented x 3 once alert, remains cooperative, laying in the ED bed, increased RR, ill appearing; cognitive function not baseline intact; pupils equally reactive to light and accomodation; cranial nerves II-XII grossly normal, moving all 4 extremities, no focal deficits, strength severely globally decreased secondary to acute presentation. Psychiatric: affect appears fatigued, lethargic, no acute evidence of depressive or anxiety feelings. - Physical Exam Vital Signs Temp Pulse Resp BP Pulse Ox 97.5 F L 114 H 19 H 136/75 H 100 05/09/18 23:08 05/10/18 00:08 05/10/18 00:08 05/10/18 00:08 05/10/18 00:08 Oxygen Delivery Method Room Air Weight: 143 lb Body Mass Index (BMI) 21.7 Finger Stick Blood Glucose 141 Laboratory Tests Past 24 Hrs 05/09/18 05/09/18 05/09/18 00:40 00:40 00:40 WBC 9.4 RBC 5.22 Hgb 16.8 H Hct 48.6 MCV 93.1 MCH 32.2 H MCHC 34.6 RDW 14.1 RDW Differential 47.2 H Plt Count 417 MPV 9.8 Immature Gran % (Auto) 2.300 H Neut % (Auto) 56.5 Lymph % (Auto) 33.5 [place] % (Auto) 6.6 Eos % (Auto) 0.4 Baso % (Auto) 0.7 Absolute Neuts (auto) 5.3 Absolute Lymphs (auto) 3.16 Total Counted Not Reportable Diff Path Review May foll Sodium Pending Potassium Pending Chloride Pending Carbon Dioxide Pending Anion Gap Pending BUN Pending Creatinine Pending Est GFR (MDRD) Af Amer Pending Est GFR (MDRD) Non-Af Pending BUN/Creatinine Ratio Pending Glucose Pending Calcium Pending Total Bilirubin Pending Direct Bilirubin Pending AST Pending ALT Pending Alkaline Phosphatase Pending Total Protein Pending Albumin Pending Lipase Pending Acetone Level LARGE H Assessment/Plan All Active Problems (Last Reviewed 03/20/18 @ 15:05 by Amanda Wilkinson) DKA, type 1 (Acute) DKA (diabetic ketoacidoses) (Acute) The patient is a 17 y/o M w/ PMHx: Diabetes mellitus type I w/ serial admissions for DKA, Prior Noted Elevated Liver Enzymes of unclear etiology, Anxiety and Depression w/ prior suicidal ideation admissions following w/ Crisis Center who presents to the [facility] ED on 05/10/18 with lightheadedness, dizziness, nausea and emesis as well as generalized abdominal pain. (1) DKA w/ Diabetes mellitus type I: Patient started on an insulin drip in the ED. Will admit to the ICU per protocol, continue on insulin drip, check serial K+, glucose w/ IVF changes pending these levels, serial chemistry, obtain mag, phos daily w/ repletion as needed, transition to home SC regimen when gap closed w/ overlap on drip, nutrition consultation. Encouraged diet and insulin regimen compliance. HgbA1c pending. (2) Acute kidney injury: Secondary to acute presentation, #1 DKA. Admission BUN/Cr BUN/creatinine 18/1.36, prior baseline creatinine noted to be 0.7. Continue to aggressively hydrate as noted, repeat BMPs serially with DKA presentation on insulin drip as noted. (3) Hx Elevated Liver Enzymes: 07/18/17 liver US obtained during DKA admission with elevated enzymes at that time with noted elongated appearance of the right hepatic lobe suggestive of a Isaias's lobe, enlarged liver, mild fatty i nfiltration. 01/24/2018 AST/ALT 95/134. 05/10/18 admission AST/ALT 88/196. Repeat hepatic profile in AM. (4) Elevated BP without HTN: Elevated BP above goal, likely secondary to his acute presentation, continue to monitor and if does remain above goal once DKA resolved may need to consider low dose ACEI. (5) Anxiety and Depression: Following w/ Crisis center, prior admissions for suicidal ideations. Not on regimen despite his history, recommend continued evaluation per his therapist. (6) GERD: Protonix. (7) DVT Prophylaxis: SCDs, heparin. Code Visit Inpatient E&M: 92139 Init Hosp L3
--- NOTE | 2018-05-10 01:44 | EKG12_ITS ---
Test Reason : POSS DKA Blood Pressure : / mmHG Vent. Rate : 108 BPM Atrial Rate : 108 BPM P-R Int : 126 ms QRS Dur : 084 ms QT Int : 336 ms P-R-T Axes : 072 051 056 degrees QTc Int : 450 ms Sinus tachycardia Biatrial enlargement Nonspecific T wave abnormality Abnormal ECG Confirmed by RONALD OLMEDO, JONATHAN ([id number]), desk editor CHRISSIE CACERES ([id number] on 05/11/2018 1:33:16 PM Referred By: CHARBEL Confirmed By:JONATHAN CARDENAS MD
[2018-05-10 01:46] LABS: Bedside Glucose > 500 mg/dL (70-110)
[2018-05-10] MEDS: Ondansetron 4 MG/2 ML Vial IV (02:05)
--- NOTE | 2018-05-10 02:10 | ED.RN ---
BEDSIDE BLOOD GLUCOSE TEST WAS HIGH OVER 600.
[2018-05-10 02:25] LABS: AST(SGOT) 88 U/L (15-37); Alanine Aminotransfer ALT/SGPT 196 U/L (16-61); Alkaline Phosphatase 186 U/L (45-117); Anion Gap 29 (5-15); BUN 18 mg/dL (7-18); BUN/Creat Ratio 13.2 RATIO (10-20); Bilirubin, Direct 0.15 mg/dL (0.00-0.30); Calcium,Total 8.8 mg/dL (8.5-10.1); Chloride 95 mmol/L (98-107); Creatinine, Serum 1.36 mg/dL (0.70-1.30); EST Glomerular Filtration Rate 72 mL/min (>60); Est Glom Filt Rate - Afr Amer 87 mL/min (>60); Estimated Creatinine Clearance 80.15 ml/min; Globulin 4.2 g/dL (2.2-4.2); Glucose 676 mg/dL (74-106); Lipase 33 U/L (73-393); Potassium 4.6 mmol/L (3.5-5.1); Protein, Total 8.2 g/dL (6.4-8.2); Sodium Level 130 mmol/L (136-145)
--- NOTE | 2018-05-10 02:36 | ED.RN ---
IV IN RIGHT HAND IN HIS RIGHT INDEX FINGER
[2018-05-10] MEDS: 0.9% Normal Saline 1,000 ML 200 ML IV (02:43)
--- NOTE | 2018-05-10 02:44 | ED.RN ---
NORMAL SALINE ORDER AT 150 CC'S WAS HUNG BUT THEN CHANGED TO 999CC'S HOUR WHEN ORDER CHANGED TO A SECOND BOLUS. DR. STAFFORD VERBALLY TOLD THIS NURSE TO HANG NORMAL SALINE AT 200 CC'S PER HOUR AFTER WE STARTED THE INSULIN.
--- NOTE | 2018-05-10 02:53 | ED.RN ---
REPORT GIVEN TO ROMANA HILL IN ICU REGARDING THIS PATIENT.
[2018-05-10 03:07] LABS: Anion Gap 27 (5-15); BUN 17 mg/dL (7-18); BUN/Creat Ratio 13.8 RATIO (10-20); Chloride 101 mmol/L (98-107); Creatinine, Serum 1.23 mg/dL (0.70-1.30); EST Glomerular Filtration Rate 80 mL/min (>60); Est Glom Filt Rate - Afr Amer 97 mL/min (>60); Estimated Creatinine Clearance 88.62 ml/min; Glucose 661 mg/dL (74-106); Potassium 5.2 mmol/L (3.5-5.1); Sodium Level 133 mmol/L (136-145)
[2018-05-10 03:26] LABS: Bedside Glucose > 500 mg/dL (70-110)
[2018-05-10 04:00] LABS: Anion Gap 26 (5-15); BUN 17 mg/dL (7-18); BUN/Creat Ratio 13.6 RATIO (10-20); Calcium,Total 7.5 mg/dL (8.5-10.1); Chloride 107 mmol/L (98-107); Creatinine, Serum 1.25 mg/dL (0.70-1.30); EST Glomerular Filtration Rate 79 mL/min (>60); Est Glom Filt Rate - Afr Amer 95 mL/min (>60); Estimated Creatinine Clearance 78.25 ml/min; Glucose 561 mg/dL (74-106); Phosphorus 3.8 mg/dL (2.5-4.9); Potassium 4.3 mmol/L (3.5-5.1); Sodium Level 139 mmol/L (136-145)
[2018-05-10 04:21] LABS: Bedside Glucose > 500 mg/dL (70-110)
[2018-05-10 04:21] LABS: Bedside Glucose 492 mg/dL (70-110)
[2018-05-10 05:31] LABS: Hematocrit 45.2 % (40-54); Hemoglobin 15.5 g/dl (13.0-16.5); Mean Corp Hgb Conc 34.3 g/gl (32-36); Mean Corpuscular Volume 93.4 fL (80-94); Mean Platelet Vol. 9.4 fl (6.2-12.0); Platelet Count 325 K/mm3 (150-450); RBC Distribution Width CV 14.5 % (11.6-14.6); RBC Distribution Width SD 48.2 fl (35.1-43.9); Red Blood Count 4.84 M/mm3 (4.6-6.2); White Blood Count 15.1 K/mm3 (4.4-11.0)
[2018-05-10 05:32] LABS: Scan Indicated on CBC? Y/N NO
[2018-05-10 05:56] LABS: Phosphorus 3.3 mg/dL (2.5-4.9)
[2018-05-10 06:01] LABS: Allen Test POS; Base Excess -30 mmol/L (-2 to +2); Bicarbonate 2.1 mmol/L (22-26); Blood Gas Specimen Type ART; O2 Delivery Device Room Air; PO2 133 mmHG (75-100); SITE L Radial; SO2 97 % (95-99); Time Given 325; Total Carbon Dioxide < 5 mmol/L; pH 6.96 (7.35-7.45)
[2018-05-10 06:21] LABS: Bedside Glucose 396 mg/dL (70-110)
[2018-05-10 06:21] LABS: Bedside Glucose 359 mg/dL (70-110)
[2018-05-10 06:26] LABS: M R Staph aureus DNA By PCR Negative (Negative); Probe Check PASS; Specimen Processing Control PASS
[2018-05-10 06:42] LABS: AST(SGOT) 83 U/L (15-37); Alanine Aminotransfer ALT/SGPT 158 U/L (16-61); Albumin, Serum 3.6 g/dL (3.2-5.0); Alkaline Phosphatase 161 U/L (45-117); Anion Gap 24 (5-15); BUN 14 mg/dL (7-18); BUN/Creat Ratio 11.2 RATIO (10-20); Bilirubin, Direct 0.13 mg/dL (0.00-0.30); Calcium,Total 7.5 mg/dL (8.5-10.1); Chloride 110 mmol/L (98-107); Creatinine, Serum 1.25 mg/dL (0.70-1.30); EST Glomerular Filtration Rate 79 mL/min (>60); Est Glom Filt Rate - Afr Amer 95 mL/min (>60); Estimated Creatinine Clearance 78.25 ml/min; Globulin 3.7 g/dL (2.2-4.2); Glucose 435 mg/dL (74-106); Magnesium 2.1 mg/dL (1.6-2.6); Potassium 4.8 mmol/L (3.5-5.1); Protein, Total 7.3 g/dL (6.4-8.2); Sodium Level 141 mmol/L (136-145)
--- NOTE | 2018-05-10 06:48 | CON.PCM_ITS ---
Reason for Consult Date of Consultation: 05/10/18 Reason for Consultation: DKA History of Present Illness: The patient is a 17-year-old male, with a history as outlined below, who presented to the emergency department on May 09 with complaints of abdominal pain, nausea, vomiting and dizziness. The patient has a known history of type 1 diabetes, for which he follows with KASHIF Joseph of endocrinology as an outpatient. He was initially diagnosed at the age of 2. Despite this, the patient's diabetes has been uncontrolled. He has been admitted to the hospital several times for DKA. At the time of his last discharge from the hospital, he was referred to [facility]. The patient's last hemoglobin A1c in October 2017 was noted to be 12.3. He states that his follow-up with [facility] is currently scheduled for tomorrow. The patient denies having missed any doses of his insulin prior to presenting to the hospital. Upon presentation to the emergency department, the patient was noted to be afebrile, tachycardic and tachypneic. He remained hemodynamically stable, n onetheless. Initial laboratory evaluation revealed no evidence of a leukocytosis. Chemistry profile was notable for a sodium of 130, chloride of 95, bicarb of 6, anion gap of 29 and creatinine 1.36. Glucose was elevated to 676. AST and ALT were mildly elevated to 88 and 196, respectively. Alkaline phosphatase was increased to 186. Lipase was normal. Large serum acetone level was noted. MRSA screen was negative. The patient received supplemental IV fluid hydration and was started on an insulin drip. He was subsequently transferred to the medical intensive care unit for ongoing management. Past Medical History Past Medical History (Chronic Problems): Chronic Problems (Last Reviewed 03/20/18 @ 15:05 by Amanda Wilkinson) Anxiety and depression (Chronic) GERD (gastroesophageal reflux disease) (Chronic) Fatty liver (Chronic) Suicidal ideations (Chronic) DM I (diabetes mellitus, type I), uncontrolled (Chronic) Medical History: Medical History (Last Reviewed 03/20/18 @ 15:05 by Amanda Wilkinson) Anxiety disorder F41.9 Back problem M53.9 Bone fracture T14.8XXA Diabetes type 1, uncontrolled E10.65 Dx : age 2 Last exacerbation : DKA : 01/31 Hypoglycemic episode : never ER visit : 01/31 Hearing problem H91.90 Liver disease K76.9 Seizure R56.9 Vision problem H54.7 Allergies No Known Allergies Allergy (Verified 05/09/18 23:11) Home Medications: Ambulatory Orders Medication Instructions Recorded insulin aspart U- 100 100 unit/mL See Rx Instructions SC QDAY 08/10/17 subcutaneous pen Insulin Glargine,Hum.rec.anlog 20 unit SQ BIDAC #1 insuln.pen 02/12/18 [Basaglar Margueriteikpen U-100] Surgical History: Surgical History (Last Reviewed 03/20/18 @ 15:05 by Amanda Wilkinson) S/p bilateral myringotomy with tube placement Z96.22 Surgical History: - - BL ear tubes. Psychiatric History: Anxiety, Depression, Prior suicide attempt Lives: With Family - Lives with his grandmother. Smoking Status: Never smoker Tobacco Use: Non-smoker Alcohol: None Drugs: None - *Family History Maternal Family History: Family History (Last Reviewed 03/20/18 @ 15:05 by Amanda Wilkinson) Mother Kidney disease History Items: Heart Disease, Renal Disease Paternal Family History: Family History (Last Reviewed 03/20/18 @ 15:05 by Amanda Wilkinson) Mother Kidney disease History Items: Heart Disease, - - Paternal family males w/ frequent hearing disorder. Review of Systems Constitutional: Reports: Malaise, Weakness. Denies: Chills, Fever Eyes: Denies: Blurred vision, Double vision HEENT: Denies: Head Aches, Sinus Congestion, Sinus Drainage Cardiovascular: Denies: Chest Pain, Palpitations Respiratory: Denies: Cough, Shortness of breath at rest, Sputum production Gastrointestinal: Reports: Abdominal Pain, Nausea. Denies: Diarrhea, Vomiting Genitourinary: Denies: Dysuria Musculoskeletal: Denies: Joint Pain, Joint Tenderness Skin: Denies: Rash, Wounds Neurological: Denies: Numbness, Tingling, Focal weakness Psychiatric: Denies: Anxiety, Depression, Homicidal Ideations, Suicidal Ideations Hematologic/ Lymphatic: Denies: Easy Bruising, Easy Bleeding Objective: The patient's most recent lab work, culture data and imaging studies have all been personally reviewed. - Physical Exam General: Alert, Oriented x3, Cooperative, No apparent distress HEENT: Atraumatic, PERRLA, Normocephalic Oral: No Gingival or Mucosal Lesions/ Ulcerations, Dry Mucosa Neck: Supple, No Nodes, Trachea Midline Lungs: Normal air movement, No rhonchi, No wheeze, No rales Cardiovascular: Normal S1, Normal S2, No murmurs, Tachycardic Abdomen: Bowel Sounds Present, Soft, Non Tender, Non-Distended Extremities: No clubbing, No cyanosis, No edema, Capillary Refill Less than 3 Seconds Skin: No breakdown Musculoskeletal: No Tenderness to Palpation of Joints or Extremities, No Muscle Wasting Lymphatic: No Cervical, Supraclavicular, or Inguinal Adenopathy Neurological: Cranial nerves II-XII grossly intact, Neuro grossly intact Psych/Mental Status: Alert and oriented to time, place, person, mood and affect Vital Signs Temp Pulse Resp BP Pulse Ox 98.3 F 110 H 25 H 111/55 L 100 05/10/18 03:15 05/10/18 06:00 05/10/18 06:00 05/10/18 06:00 05/10/18 06:00 Oxygen Delivery Method Room Air Weight: 128 lb 4.944 oz Body Mass Index (BMI) 19.5 Finger Stick Blood Glucose 359 Intake and Output for Last 24 Hours 05/08/18 05/09/18 05/10/18 23:59 23:59 23:59 Intake Total 3441 / 3441 Output Total 3450 / 3450 Balance -9 / -9 Laboratory Tests Past 24 Hrs 05/09/18 05/09/18 05/09/18 00:40 00:40 00:40 WBC 9.4 RBC 5.22 Hgb 16.8 H Hct 48.6 MCV 93.1 MCH 32.2 H MCHC 34.6 RDW 14.1 RDW Differential 47.2 H Plt Count 417 MPV 9.8 Immature Gran % (Auto) 2.300 H Neut % (Auto) 56.5 Lymph % (Auto) 33.5 [place] % (Auto) 6.6 Eos % (Auto) 0.4 Baso % (Auto) 0.7 Absolute Neuts (auto) 5.3 Absolute Lymphs (auto) 3.16 Total Counted Not Reportable Diff Path Review May foll Specimen Type Sample Site pH Bicarbonate Actual POC Total CO2 Base Excess O2 Saturation ABG pCO2 ABG pO2 Martin Test O2 Delivery Device Blood Gas Notified Whom Blood Gas Notified Time Sodium 130 L Potassium 4.6 Chloride 95 L Carbon Dioxide 6.0 L* Anion Gap 29 H BUN 18 Creatinine 1.36 H Estim Creat Clear Calc 80.15 Est GFR (MDRD) Af Amer 87 Est GFR (MDRD) Non-Af 72 BUN/Creatinine Ratio 13.2 Glucose 676 H* Hemoglobin A1c Calcium 8.8 Phosphorus Magnesium Total Bilirubin 0.90 Direct Bilirubin 0.15 AST 88 H ALT 196 H Alkaline Phosphatase 186 H Total Protein 8.2 Albumin 4.0 Globulin 4.2 Lipase 33 L Acetone Level LARGE H MRSA (PCR) 05/10/18 05/10/18 05/10/18 02:35 03:00 03:30 WBC RBC Hgb Hct MCV MCH MCHC RDW RDW Differential Plt Count MPV Immature Gran % (Auto) Neut % (Auto) Lymph % (Auto) [place] % (Auto) Eos % (Auto) Baso % (Auto) Absolute Neuts (auto) Absolute Lymphs (auto) Total Counted Diff Path Review Specimen Type Sample Site pH Bicarbonate Actual POC Total CO2 Base Excess O2 Saturation ABG pCO2 ABG pO2 Martin Test O2 Delivery Device Blood Gas Notified Whom Blood Gas Notified Time Sodium 133 L Potassium 5.2 H Chloride 101 Carbon Dioxide 5.0 L* Anion Gap 27 H BUN 17 Creatinine 1.23 Estim Creat Clear Calc 88.62 Est GFR (MDRD) Af Amer 97 Est GFR (MDRD) Non-Af 80 BUN/Creatinine Ratio 13.8 Glucose 661 H* Hemoglobin A1c Pending Calcium 8.0 L Phosphorus Magnesium Total Bilirubin Direct Bilirubin AST ALT Alkaline Phosphatase Total Protein Albumin Globulin Lipase Acetone Level MRSA (PCR) Negative 05/10/18 05/10/18 05/10/18 03:30 03:38 05:10 WBC RBC Hgb Hct MCV MCH MCHC RDW RDW Differential Plt Count MPV Immature Gran % (Auto) Neut % (Auto) Lymph % (Auto) [place] % (Auto) Eos % (Auto) Baso % (Auto) Absolute Neuts (auto) Absolute Lymphs (auto) Total Counted Diff Path Review Specimen Type ART Sample Site L Radial pH 6.96 L* Bicarbonate Actual 2.1 L POC Total CO2 < 5 Base Excess -30 L O2 Saturation 97 ABG pCO2 Pending ABG pO2 133 H Martin Test POS O2 Delivery Device Room Air Blood Gas Notified Whom [facility] Blood Gas Notified Time 325 Sodium 139 Pending Potassium 4.3 Pending Chloride 107 Pending Carbon Dioxide 6.0 L* Pending Anion Gap 26 H Pending BUN 17 Pending Creatinine 1.25 Pending Estim Creat Clear Calc 78.25 Est GFR (MDRD) Af Amer 95 Pending Est GFR (MDRD) Non-Af 79 Pending BUN/Creatinine Ratio 13.6 Pending Glucose 561 H* Pending Hemoglobin A1c Calcium 7.5 L Pending Phosphorus 3.8 Magnesium 2.0 Pending Total Bilirubin Pending Direct Bilirubin Pending AST Pending ALT Pending Alkaline Phosphatase Pending Total Protein Pending Albumin Pending Globulin Lipase Acetone Level MRSA (PCR) 05/10/18 05/10/18 05:10 05:10 WBC 15.1 H RBC 4.84 Hgb 15.5 Hct 45.2 MCV 93.4 MCH 32.0 MCHC 34.3 RDW 14.5 RDW Differential 48.2 H Plt Count 325 MPV 9.4 Immature Gran % (Auto) Neut % (Auto) Lymph % (Auto) [place] % (Auto) Eos % (Auto) Baso % (Auto) Absolute Neuts (auto) Absolute Lymphs (auto) Total Counted Diff Path Review Specimen Type Sample Site pH Bicarbonate Actual POC Total CO2 Base Excess O2 Saturation ABG pCO2 ABG pO2 Martin Test O2 Delivery Device Blood Gas Notified Whom Blood Gas Notified Time Sodium Potassium Chloride Carbon Dioxide Anion Gap BUN Creatinine Estim Creat Clear Calc Est GFR (MDRD) Af Amer Est GFR (MDRD) Non-Af BUN/Creatinine Ratio Glucose Hemoglobin A1c Calcium Phosphorus 3.3 Magnesium Total Bilirubin Direct Bilirubin AST ALT Alkaline Phosphatase Total Protein Albumin Globulin Lipase Acetone Level MRSA (PCR) POC Glucose 05/10/18 05/10/18 05/10/18 06:08 05:12 04:12 POC Glucose 359 H 396 H 492 H* 05/10/18 05/10/18 05/10/18 03:16 02:09 01:38 POC Glucose > 500 H* > 500 H* > 500 H* Assessment/Plan RECOMMENDATIONS: 1. Transition from normal saline to LR. 2. Continue management per DKA protocol. 3. Electrolyte repletion as needed. 4. Patient to remain n.p.o. until anion gap closed x2. 5. Continue subcutaneous heparin for DVT prophylaxis. IMPRESSIONS: 1. Diabetic ketoacidosis Unclear etiology, although suspect potential noncompliance. The patient is a poorly controlled type I diabetic, who was previously being followed by KASHIF Joseph of endocrinology. The patient has been referred to [facility] for further evaluation. He reports that he was scheduled to have an appointment with them tomorrow. Given that it is unlikely he will be discharged from the hospital at that time, I have asked nursing to assist in contacting the endocrinology practice to see if his appointment can be moved back to next week. In the interim, would recommend transitioning from normal saline to lactated Ringer's. The patient will be continued on his insulin drip until his anion gap has been closed x2. Continue to monitor serial electrolytes and replete as necessary. 2. Transaminitis Potentially related to intravascular volume depletion. Prior ultrasound imaging did reveal evidence of mild fatty infiltration of the liver. We will continue to monitor hepatic function profile accordingly. Anticipate improvement with time. 3. Acute kidney injury Likely secondary to prerenal etiology in the setting of osmotic diuresis due to diabetic ketoacidosis. Creatinine is improving with volume expansion. Urine output is appropriate. No indication for renal replacement therapy at this time. 4. Anxiety/depression/GERD Complicates care, management, recovery and prognosis. This note was generated with [employer] dictation software. It may contain incorrect words, spelling, and punctuation that were not noted in checking the note before signing. Code Visit Inpatient E&M: 16864 Init Hosp L3
[2018-05-10 07:16] LABS: Bedside Glucose 292 mg/dL (70-110)
[2018-05-10 08:16] LABS: Bedside Glucose 304 mg/dL (70-110)
[2018-05-10] MEDS: Lactated Ringers 1,000 ML 150 ML IV ×2 (09:00→17:00)
[2018-05-10 09:45] LABS: Bedside Glucose 239 mg/dL (70-110)
[2018-05-10] MEDS: 0.9% NaCl Peripheral Flush Adult/Peds IV ×2 (09:46→17:06)
[2018-05-10 10:01] LABS: Anion Gap 16 (5-15); BUN 10 mg/dL (7-18); BUN/Creat Ratio 7.7 RATIO (10-20); Calcium,Total 7.9 mg/dL (8.5-10.1); Chloride 114 mmol/L (98-107); EST Glomerular Filtration Rate 75 mL/min (>60); Est Glom Filt Rate - Afr Amer 91 mL/min (>60); Estimated Creatinine Clearance 75.24 ml/min; Glucose 247 mg/dL (74-106); Sodium Level 143 mmol/L (136-145)
[2018-05-10 10:16] LABS: Bedside Glucose 251 mg/dL (70-110)
--- NOTE | 2018-05-10 10:43 | CASEMGMT ---
ROMANA WHITE NOTE: Call placed to Dr Caldwell, [employer] in [place] @ [phone]. Pt had appt scheduled with his GRINDER MILL OPERATOR tomorrow 04/30/18. This appt was cancelled by ROMANA WHITE and re-scheduled for MondayMay 18 @ 0172. Pt made aware and agreeable to this date/time. Appt entered into DC: Follow Up appts intervention and copy of this appt given to pt. Jarred SCHMITZ RN, CM
[2018-05-10] MEDS: Acetaminophen 325 MG Tablet 650 MG PO ×2 (12:01→21:09)
[2018-05-10 12:10] LABS: Bedside Glucose 228 mg/dL (70-110)
[2018-05-10 12:10] LABS: Bedside Glucose 199 mg/dL (70-110)
[2018-05-10 13:21] LABS: Bedside Glucose 176 mg/dL (70-110)
--- NOTE | 2018-05-10 13:26 | CASEMGMT ---
SW met w/pt in room in regard to history of depression/anxiety and history of uncontrolled diabetes. Pt still lives w/his grandmother, sister and niece. Pt still sees the pipe welder in [place], PCP is Dr. Gomez, pharmacy is [facility] in [place]. Pt has not attended a diabetic clinic before, open to the idea. SW gave pt brochure on diabetic clinic. Pt has been diabetic since the age of [age]. Pt has all needed supplies including meter, test strips, and meds. SW asked pt about history of depression and anxiety. Pt denies that he is struggling w/anxiety or depression at this time. Pt is not on any medication for depression or anxiety. Pt has taken meds in the past, but states it did not help. Pt has been in counseling, though is not in counseling at present. Pt states has not been in counseling for six months. Pt is not interested in any counseling referrals at this time, however is aware of how to get in touch w[facility] should he decide to pursue counseling again. Pt denies being suicidal at this time. At this time pt declining any referrals for depression and anxiety, denying that he is struggling with anxiety or depression at this time. SW remains available should pt want to speak w/SW further. DONG Dutton, PLATFORM BUILDER
[2018-05-10 13:29] LABS: Pathologist Review Reviewed
[2018-05-10 13:43] LABS: Anion Gap 13 (5-15); BUN 10 mg/dL (7-18); Calcium,Total 8.2 mg/dL (8.5-10.1); Chloride 116 mmol/L (98-107); Creatinine, Serum 1.25 mg/dL (0.70-1.30); EST Glomerular Filtration Rate 79 mL/min (>60); Est Glom Filt Rate - Afr Amer 95 mL/min (>60); Estimated Creatinine Clearance 78.25 ml/min; Glucose 195 mg/dL (74-106); Potassium 3.7 mmol/L (3.5-5.1); Sodium Level 144 mmol/L (136-145)
[2018-05-10 14:16] LABS: Bedside Glucose 168 mg/dL (70-110)
[2018-05-10 16:26] LABS: Bedside Glucose 137 mg/dL (70-110)
[2018-05-10 16:35] LABS: Bedside Glucose 131 mg/dL (70-110)
[2018-05-10 18:15] LABS: Anion Gap 11 (5-15); BUN 9 mg/dL (7-18); BUN/Creat Ratio 8.7 RATIO (10-20); Calcium,Total 8.3 mg/dL (8.5-10.1); Chloride 116 mmol/L (98-107); Creatinine, Serum 1.04 mg/dL (0.70-1.30); EST Glomerular Filtration Rate 97 mL/min (>60); Est Glom Filt Rate - Afr Amer 118 mL/min (>60); Estimated Creatinine Clearance 94.05 ml/min; Glucose 147 mg/dL (74-106); Potassium 3.4 mmol/L (3.5-5.1); Sodium Level 145 mmol/L (136-145)
[2018-05-10 18:26] LABS: Bedside Glucose 173 mg/dL (70-110)
--- NOTE | 2018-05-10 20:37 | NURSING ---
Spoke with ROMANA Rockwell from [facility]. Verbal report given for pt transfer. Pt transferred to [id number].
[2018-05-10] MEDS: Insulin Lispro 100 UNIT/ML INSULN.PEN SC (21:22)
[2018-05-10 21:35] LABS: Bedside Glucose 400 mg/dL (70-110)
[2018-05-11 02:25] LABS: Bedside Glucose 206 mg/dL (70-110)
[2018-05-11 02:37] VITALS: BP 109/71; PULSE 76; RESP 16; TEMP 36.6; O2SAT 100
[2018-05-11 06:13] LABS: pCO2 9.1 mmHg (35-45)
[2018-05-11] MEDS: Insulin Lispro 100 UNIT/ML INSULN.PEN SC ×6 (06:33→22:47)
[2018-05-11 06:51] LABS: Hematocrit 39.4 % (40-54); Hemoglobin 13.5 g/dl (13.0-16.5); Mean Corp Hgb Conc 34.3 g/gl (32-36); Mean Corpuscular Hgb 31.6 pg (27.0-32.0); Mean Corpuscular Volume 92.3 fL (80-94); Mean Platelet Vol. 9.5 fl (6.2-12.0); Platelet Count 219 K/mm3 (150-450); RBC Distribution Width CV 14.8 % (11.6-14.6); RBC Distribution Width SD 48.7 fl (35.1-43.9); Red Blood Count 4.27 M/mm3 (4.6-6.2); White Blood Count 5.3 K/mm3 (4.4-11.0)
[2018-05-11 06:54] LABS: Scan Indicated on CBC? Y/N NO
[2018-05-11 06:55] LABS: Anion Gap 14 (5-15); BUN 8 mg/dL (7-18); BUN/Creat Ratio 7.2 RATIO (10-20); Calcium,Total 8.2 mg/dL (8.5-10.1); Chloride 110 mmol/L (98-107); Creatinine, Serum 1.11 mg/dL (0.70-1.30); EST Glomerular Filtration Rate 90 mL/min (>60); Est Glom Filt Rate - Afr Amer 109 mL/min (>60); Estimated Creatinine Clearance 88.12 ml/min; Glucose 304 mg/dL (74-106); Potassium 3.6 mmol/L (3.5-5.1); Sodium Level 141 mmol/L (136-145)
[2018-05-11 06:56] LABS: Bedside Glucose 281 mg/dL (70-110)
[2018-05-11 07:26] VITALS: O2SAT 99
--- NOTE | 2018-05-11 09:55 | PCM.PN.HOSP ---
Subjective: Feels better today, tolerating a diet. No pain. Vitals/I&O's: Vital Signs Temp Pulse Resp BP Pulse Ox 98 F 76 16 109/71 99 05/11/18 02:37 05/11/18 02:37 05/11/18 02:37 05/11/18 02:37 05/11/18 07:26 Oxygen Delivery Method Room Air Weight: 128 lb 4.944 oz Body Mass Index (BMI) 19.5 Finger Stick Blood Glucose 131 Intake and Output for Last 24 Hours 05/09/18 05/10/18 05/11/18 23:59 23:59 23:59 Intake Total 5249 / 5249 600 / 600 Output Total 3450 / 3450 1000 / 1000 Balance 1799 / 1799 -400 / -400 General: Alert, Oriented x3, Cooperative, No apparent distress HEENT: Atraumatic, EOMI, Normocephalic Oral: Moist Mucosa Neck: Supple, No JVD Lungs: Clear to auscultation, Normal air movement, No rhonchi, No wheeze, No rales Cardiovascular: Regular rate, Regular Rhythm, Normal S1, Normal S2, No murmurs Abdomen: Soft, Non Tender, Non-Distended, No Hepato-splenomegaly Extremities: No edema, Capillary Refill Less than 3 Seconds Skin: No rashes, No breakdown, Ulcer/ Wound Neurological: Neuro grossly intact, Sensory exam intact to light touch and pain Psych/Mental Status: Normal Affect, Appropriate Laboratory Results 05/09/18 00:40: Diff Path Review Reviewed 05/10/18 03:38: ABG pCO2 9.1 L* 05/10/18 09:35: Sodium 143, Potassium 4.0, Chloride 114 H, Carbon Dioxide 13.0 L, Anion Gap 16 H, BUN 10, Creatinine 1.30, Estim Creat Clear Calc 75.24, Est GFR (MDRD) Af Amer 91, Est GFR (MDRD) Non-Af 75, BUN/Creatinine Ratio 7.7 L, Glucose 247 H, Calcium 7.9 L 05/10/18 10:13: POC Glucose 251 H 05/10/18 11:07: POC Glucose 228 H 05/10/18 12:00: POC Glucose 199 H 05/10/18 13:14: POC Glucose 176 H 05/10/18 13:15: Sodium 144, Potassium 3.7, Chloride 116 H, Carbon Dioxide 15.0 L, Anion Gap 13, BUN 10, Creatinine 1.25, Estim Creat Clear Calc 78.25, Est GFR (MDRD) Af Amer 95, Est GFR (MDRD) Non-Af 79, BUN/Creatinine Ratio 8.0 L, Glucose 195 H, Calcium 8.2 L 05/10/18 14:13: POC Glucose 168 H 05/10/18 15:24: POC Glucose 137 H 05/10/18 16:23: POC Glucose 131 H 05/10/18 17:10: Sodium 145, Potassium 3.4 L, Chloride 116 H, Carbon Dioxide 18.0 L, Anion Gap 11, BUN 9, Creatinine 1.04, Estim Creat Clear Calc 94.05, Est GFR (MDRD) Af Amer 118, Est GFR (MDRD) Non-Af 97, BUN/Creatinine Ratio 8.7 L, Glucose 147 H, Calcium 8.3 L 05/10/18 18:19: POC Glucose 173 H 05/10/18 21:20: POC Glucose 400 H 05/11/18 02:18: POC Glucose 206 H 05/11/18 05:25: WBC 5.3, RBC 4.27 L, Hgb 13.5, Hct 39.4 L, MCV 92.3, MCH 31.6, MCHC 34.3, RDW 14.8 H, RDW Differential 48.7 H, Plt Count 219, MPV 9.5 05/11/18 05:25: Sodium 141, Potassium 3.6, Chloride 110 H, Carbon Dioxide 17.0 L, Anion Gap 14, BUN 8, Creatinine 1.11, Estim Creat Clear Calc 88.12, Est GFR (MDRD) Af Amer 109, Est GFR (MDRD) Non-Af 90, BUN/Creatinine Ratio 7.2 L, Glucose 304 H, Calcium 8.2 L 05/11/18 06:32: POC Glucose 281 H Current Medications Acetaminophen (Tylenol) 650 mg PO Q6H PRN PRN PRN Reason: PAIN Last Admin: 05/10/18 21:09 Dose: 650 mg Al Hydroxide/Mg Hydroxide (Mylanta Ii) 30 ml PO Q6H PRN PRN PRN Reason: Gastric burning Dextrose (D50w Syringe) 0 gm IV X1 PRN; Protocol PRN Reason: Hypoglycemia Glucagon () 1 mg IM .X1 PRN PRN Reason: Hypoglycemia Heparin Sodium (Porcine) (Heparin Na) 5,000 unit SC Q12 TING Last Admin: 05/10/18 20:25 Dose: Not Given Hydralazine HCl (Apresoline Iv) 10 mg IV Q4H PRN PRN PRN Reason: SBP > 160 Pantoprazole Sodium 40 mg/ (Sodium Chloride) 110 mls @ 330 mls/hr IV Q12 TING Last Admin: 05/10/18 21:25 Dose: 330 mls/hr Sodium Chloride () 250 mls @ 15 mls/hr IV .[id number] PRN PRN Reason: SALINE FLUSH Influenza Virus Vaccine Quadrival (Fluarix/Fluzone) 0.5 ml IM .ONCE ONE Stop: 05/11/18 10:01 Insulin Glargine (Lantus (Bkc)) 20 units SC QHS TING Insulin Glargine (Lantus (Bkc)) 30 units SC BREAKFAST TING Insulin Human Lispro (Humalog Kwikpen (Bkc)) 0 unit SC ACHS TING; Protocol Last Admin: 05/11/18 06:33 Dose: 4 units Insulin Human Lispro (Humalog Kwikpen (Bkc)) 5 unit SC TIDAC TING Magnesium Hydroxide (Milk Of Magnesia) 30 ml PO DAILY PRN PRN PRN Reason: Constipation Ondansetron HCl (Zofran) 4 mg IV Q6H PRN PRN PRN Reason: NAUSEA Promethazine HCl (Phenergan) 12.5 mg IV Q6H PRN PRN PRN Reason: NAUSEA/VOMITING Sodium Chloride () 5 - 30 ml IV UD PRN PRN Reason: SALINE FLUSH Last Admin: 05/10/18 17:06 Dose: 20 ml Medical Necessity - Tobacco Use Smoking Status: Never smoker Tobacco Use: Non-smoker Assessment/Plan All Active Problems (Last Reviewed 03/20/18 @ 15:05 by Amanda Wilkinson) DKA, type 1 (Acute) DKA (diabetic ketoacidoses) (Acute) 1. DKA 2/2 DM1/SAMUEL (resolved)/HTN (resolved) - Transfered out of the ICU yesterday - Labs are stable - Will increase insulin regimen to Lantus 30 U am and 20 U qHS with meal time 5 units - C/w SSI - A1c 13 - F/u with his stair builder and PCP 2. H/o elevated LFTs - Improving from AST/ALT of 88/196 to 83/158 - Will continue to monitor as an outpatient - Discuss with him that this is related to his DM and how uncontrolled it is 3. Anxiety/Depression - Following with crisis center - Had prior admission for SI - His outpatient therapist has not started him on medications - Will discuss with him if he would like to start on Zoloft prior to discharge 4. GERD - stable - PPI DVT: SCD/Heparin Code Visit Inpatient E&M: 62554 Subs Hosp L2
--- NOTE | 2018-05-11 10:05 | PN_ITS ---
Subjective: Feels better today, tolerating a diet. No pain. Vitals/I&O's: Vital Signs Temp Pulse Resp BP Pulse Ox 98 F 76 16 109/71 99 05/11/18 02:37 05/11/18 02:37 05/11/18 02:37 05/11/18 02:37 05/11/18 07:26 Oxygen Delivery Method Room Air Weight: 128 lb 4.944 oz Body Mass Index (BMI) 19.5 Finger Stick Blood Glucose 131 Intake and Output for Last 24 Hours 05/09/18 05/10/18 05/11/18 23:59 23:59 23:59 Intake Total 5249 / 5249 600 / 600 Output Total 3450 / 3450 1000 / 1000 Balance 1799 / 1799 -400 / -400 General: Alert, Oriented x3, Cooperative, No apparent distress HEENT: Atraumatic, EOMI, Normocephalic Oral: Moist Mucosa Neck: Supple, No JVD Lungs: Clear to auscultation, Normal air movement, No rhonchi, No wheeze, No rales Cardiovascular: Regular rate, Regular Rhythm, Normal S1, Normal S2, No murmurs Abdomen: Soft, Non Tender, Non-Distended, No Hepato-splenomegaly Extremities: No edema, Capillary Refill Less than 3 Seconds Skin: No rashes, No breakdown, Ulcer/ Wound Neurological: Neuro grossly intact, Sensory exam intact to light touch and pain Psych/Mental Status: Normal Affect, Appropriate Laboratory Results 05/09/18 00:40: Diff Path Review Reviewed 05/10/18 03:38: ABG pCO2 9.1 L* 05/10/18 09:35: Sodium 143, Potassium 4.0, Chloride 114 H, Carbon Dioxide 13.0 L , Anion Gap 16 H, BUN 10, Creatinine 1.30, Estim Creat Clear Calc 75.24, Est GFR (MDRD) Af Amer 91, Est GFR (MDRD) Non-Af 75, BUN/Creatinine Ratio 7.7 L, Glucose 247 H, Calcium 7.9 L 05/10/18 10:13: POC Glucose 251 H 05/10/18 11:07: POC Glucose 228 H 05/10/18 12:00: POC Glucose 199 H 05/10/18 13:14: POC Glucose 176 H 05/10/18 13:15: Sodium 144, Potassium 3.7, Chloride 116 H, Carbon Dioxide 15.0 L , Anion Gap 13, BUN 10, Creatinine 1.25, Estim Creat Clear Calc 78.25, Est GFR (MDRD) Af Amer 95, Est GFR (MDRD) Non-Af 79, BUN/Creatinine Ratio 8.0 L, Glucose 195 H, Calcium 8.2 L 05/10/18 14:13: POC Glucose 168 H 05/10/18 15:24: POC Glucose 137 H 05/10/18 16:23: POC Glucose 131 H 05/10/18 17:10: Sodium 145, Potassium 3.4 L, Chloride 116 H, Carbon Dioxide 18.0 L, Anion Gap 11, BUN 9, Creatinine 1.04, Estim Creat Clear Calc 94.05, Est GFR (MDRD) Af Amer 118, Est GFR (MDRD) Non-Af 97, BUN/Creatinine Ratio 8.7 L, Glucose 147 H, Calcium 8.3 L 05/10/18 18:19: POC Glucose 173 H 05/10/18 21:20: POC Glucose 400 H 05/11/18 02:18: POC Glucose 206 H 05/11/18 05:25: WBC 5.3, RBC 4.27 L, Hgb 13.5, Hct 39.4 L, MCV 92.3, MCH 31.6, MCHC 34.3, RDW 14.8 H, RDW Differential 48.7 H, Plt Count 219, MPV 9.5 05/11/18 05:25: Sodium 141, Potassium 3.6, Chloride 110 H, Carbon Dioxide 17.0 L , Anion Gap 14, BUN 8, Creatinine 1.11, Estim Creat Clear Calc 88.12, Est GFR (MDRD) Af Amer 109, Est GFR (MDRD) Non-Af 90, BUN/Creatinine Ratio 7.2 L, Glucose 304 H, Calcium 8.2 L 05/11/18 06:32: POC Glucose 281 H Current Medications Acetaminophen (Tylenol) 650 mg PO Q6H PRN PRN PRN Reason: PAIN Last Admin: 05/10/18 21:09 Dose: 650 mg Al Hydroxide/Mg Hydroxide (Mylanta Ii) 30 ml PO Q6H PRN PRN PRN Reason: Gastric burning Dextrose (D50w Syringe) 0 gm IV X1 PRN; Protocol PRN Reason: Hypoglycemia Glucagon () 1 mg IM .X1 PRN PRN Reason: Hypoglycemia Heparin Sodium (Porcine) (Heparin Na) 5,000 unit SC Q12 TING Last Admin: 05/10/18 20:25 Dose: Not Given Hydralazine HCl (Apresoline Iv) 10 mg IV Q4H PRN PRN PRN Reason: SBP > 160 Pantoprazole Sodium 40 mg/ (Sodium Chloride) 110 mls @ 330 mls/hr IV Q12 TING Last Admin: 05/10/18 21:25 Dose: 330 mls/hr Sodium Chloride () 250 mls @ 15 mls/hr IV .[id number] PRN PRN Reason: SALINE FLUSH Influenza Virus Vaccine Quadrival (Fluarix/Fluzone) 0.5 ml IM .ONCE ONE Stop: 05/11/18 10:01 Insulin Glargine (Lantus (Bkc)) 20 units SC QHS TING Insulin Glargine (Lantus (Bkc)) 30 units SC BREAKFAST TING Insulin Human Lispro (Humalog Kwikpen (Bkc)) 0 unit SC ACHS TING; Protocol Last Admin: 05/11/18 06:33 Dose: 4 units Insulin Human Lispro (Humalog Kwikpen (Bkc)) 5 unit SC TIDAC TING Magnesium Hydroxide (Milk Of Magnesia) 30 ml PO DAILY PRN PRN PRN Reason: Constipation Ondansetron HCl (Zofran) 4 mg IV Q6H PRN PRN PRN Reason: NAUSEA Promethazine HCl (Phenergan) 12.5 mg IV Q6H PRN PRN PRN Reason: NAUSEA/VOMITING Sodium Chloride () 5 - 30 ml IV UD PRN PRN Reason: SALINE FLUSH Last Admin: 05/10/18 17:06 Dose: 20 ml Medical Necessity - Tobacco Use Smoking Status: Never smoker Tobacco Use: Non-smoker Assessment/Plan All Active Problems (Last Reviewed 03/20/18 @ 15:05 by Amanda Wilkinson) DKA, type 1 (Acute) DKA (diabetic ketoacidoses) (Acute) 1. DKA 2/2 DM1/SAMUEL (resolved)/HTN (resolved) - Transfered out of the ICU yesterday - Labs are stable - Will increase insulin regimen to Lantus 30 U am and 20 U qHS with meal time 5 units - C/w SSI - A1c 13 - F/u with his bacteriologist pharmaceutical and PCP 2. H/o elevated LFTs - Improving from AST/ALT of 88/196 to 83/158 - Will continue to monitor as an outpatient - Discuss with him that this is related to his DM and how uncontrolled it is 3. Anxiety/Depression - Following with crisis center - Had prior admission for SI - His outpatient therapist has not started him on medications - Will discuss with him if he would like to start on Zoloft prior to discharge 4. GERD - stable - PPI DVT: SCD/Heparin Code Visit Inpatient E&M: 46271 Subs Hosp L2
[2018-05-11 10:21] VITALS: BP 106/63; PULSE 75; RESP 18; TEMP 36.6; O2SAT 97
[2018-05-11] MEDS: 0.9% NaCl Peripheral Flush Adult/Peds IV ×2 (10:28→22:48)
[2018-05-11 11:30] LABS: Bedside Glucose 331 mg/dL (70-110)
[2018-05-11 15:24] VITALS: BP 112/67; PULSE 88; RESP 16; TEMP 36.4; O2SAT 98
[2018-05-11 16:40] LABS: Bedside Glucose 261 mg/dL (70-110)
[2018-05-11 20:33] VITALS: BP 125/88; PULSE 93; RESP 16; TEMP 36.8; O2SAT 100
[2018-05-11 22:55] LABS: Bedside Glucose 331 mg/dL (70-110)
[2018-05-12 02:15] VITALS: BP 133/85; PULSE 75; RESP 16; TEMP 37.2; O2SAT 99
[2018-05-12 05:49] LABS: Anion Gap 10 (5-15); BUN 9 mg/dL (7-18); Chloride 106 mmol/L (98-107); Creatinine, Serum 0.64 mg/dL (0.70-1.30); EST Glomerular Filtration Rate 170 mL/min (>60); Est Glom Filt Rate - Afr Amer 206 mL/min (>60); Estimated Creatinine Clearance 152.83 ml/min; Glucose 162 mg/dL (74-106); Potassium 2.9 mmol/L (3.5-5.1); Sodium Level 140 mmol/L (136-145)
[2018-05-12 06:54] VITALS: O2SAT 98
[2018-05-12 07:46] LABS: Bedside Glucose 175 mg/dL (70-110)
[2018-05-12 07:54] VITALS: BP 132/81; PULSE 75; RESP 16; TEMP 36.7; O2SAT 100
[2018-05-12] MEDS: Insulin Lispro 100 UNIT/ML INSULN.PEN SC ×2 (08:01→08:02)
[2018-05-12 08:46] LABS: Magnesium 1.8 mg/dL (1.6-2.6); Phosphorus 2.5 mg/dL (2.5-4.9)
--- NOTE | 2018-05-12 10:22 | PCM.DC ---
- Discharge Diagnoses Current Active Problems: Current Active and Chronic Problems (Last Reviewed 03/20/18 @ 15:05 by Amanda Wilkinson) Anxiety and depression (Chronic) You will use the following diet at home:: Calorie/Carbohydrate Controlled (specify 1200, 1400, etc) Your food should be the consistency of: Regular Your liquids should be the consistency of: Regular/Thin Discharge Activity: No Restrictions Call your doctor if you observe: Numbness or Tingling, Dizziness, Fainting spells Allergies/Adverse Reactions: Allergies No Known Allergies Allergy (Verified 05/09/18 23:11) Medications to take at Discharge insulin aspart U- 100 100 unit/mL subcutaneous pen See Rx Instructions SC QDAY 08/10/17 Insulin Glargine,Hum.rec.anlog [Basaglar Kwikpen U-100] 30 unit SQ BIDAC #1 insuln.pen 05/12/18 Insulin Lispro [Humalog KwikPen] 5 unit SC TIDAC #1 insuln.pen 05/12/18 The following prescriptions were given: Insulin Lispro [Humalog KwikPen] 5 unit SC TIDAC #1 insuln.pen Primary Care Physician: Scott Gomez MD [Primary Care Provider] - Please follow up with your Primary Care Physician in: in 3-5 days Test Results: Test results from this visit will be discussed in further detail at your follow-up appointment, if applicable. Please Follow Up With: Ursula Sabillon,Out of - Marketing Strategy Lead When: in 1-2 weeks
--- NOTE | 2018-05-12 10:30 | PCM.DC.SUM ---
Discharge Date and Diagnosis Date of Admission: 05/10/18 Date of Discharge: 05/12/18 - Secondary Discharge Diagnosis Chronic Problems (Last Reviewed 03/20/18 @ 15:05 by Amanda Wilkinson) Anxiety and depression (Chronic) GERD (gastroesophageal reflux disease) (Chronic) Fatty liver (Chronic) Suicidal ideations (Chronic) DM I (diabetes mellitus, type I), uncontrolled (Chronic) Hospital Course and Treatment Imaging Results: None Consults: ICU Operations: None Procedures: None Summary of Care Provided: Per HPI: The patient is a 17 y/o M w/ PMHx: Diabetes mellitus type I w/ serial admissions for DKA, Prior Noted Elevated Liver Enzymes of unclear etiology following w/ [facility], Anxiety and Depression w/ prior suicidal ideation admissions following w/ Crisis Center who presents to the [facility] ED on 05/10/18 with lightheadedness, dizziness, nausea and emesis as well as generalized abdominal pain. He notes recently improved BS control. He states he has been skipping meals regularly but has been compliant with insulin. On most recent discharge 02/12/18 patient was arranged to be evaluated by Dr. Caldwell on 02/13/18, Adult Demolition Specialist and has been following with successfully since. Work-up in the ED included T 97.5, HR 136-->114, BP 146.92-->136/75, RR 30-->19, 100% on RA, CBC w/ WBC 9.4, Hgb 16.8, Plts 417 without marked shift, CMP w/ sodium 130, chloride 95, carbon dioxide 6, anion gap 29, BUN/creatinine 18/1.36, glucose 676, AST/ALT 88/196, alk phos 186, lipase 33, acetone large. In the ED patient administered NS 3L bolus, phenergan IV, zofran IV, insulin drip initiated. Vital Signs - 24 hr Temp Pulse Resp BP Pulse Ox 05/12/18 07:54 98.1 F 75 16 132/81 H 100 05/12/18 06:54 98 05/12/18 02:15 98.9 F 75 16 133/85 H 99 05/11/18 20:33 98.3 F 93 16 125/88 H 100 05/11/18 15:24 97.6 F L 88 16 112/67 98 General: Alert, Oriented x3, Cooperative, No apparent distress HEENT: Atraumatic, EOMI, Normocephalic Oral: Moist Mucosa Neck: Supple, No JVD Lungs: Clear to auscultation, Normal air movement, No rhonchi, No wheeze, No rales Cardiovascular: Regular rate, Regular Rhythm, Normal S1, Normal S2, No murmurs Abdomen: Soft, Non Tender, Non-Distended, No Hepato-splenomegaly Extremities: No edema, Capillary Refill Less than 3 Seconds Skin: No rashes, No breakdown, Ulcer/ Wound Neurological: Neuro grossly intact, Sensory exam intact to light touch and pain Psych/Mental Status: Normal Affect, Appropriate Hospital Course: 1. DKA 2/2 DM1/SAMUEL (resolved)/HTN (resolved) - He has had multiple previous episodes of DKA in the past. He used to have an insulin pump and a sensor however the insurance company stopped covering the sensor. He was switched to long acting and SSI, however the SSI did not work because he was not very good at monitoring his blood sugars. He was switched to long acting and carb ratio at meals with 1 U of insulin per 7G of carbs. This did not seem to help much either. I spoke to him extensively about eating consistently three times a day to make his life and insulin dosing easier. Will DC home today on Lantus 30 U BID, Novolog 5U TIDWM, and his carb ratio. He is to follow-up with his PCP and inventory technician. 2. H/o elevated LFTs - His AST and ALT did improve during his inpatient stay and I recommend that he have outpatient follow-up for this issue, likely related to his uncontrolled DM leading to fatty infiltration of the liver as seen on his liver US in july. 3. His other diagnoses were evaluated and his home medications were continued where appropriate - Physical Exam Vital Signs Temp Pulse Resp BP Pulse Ox 98.1 F 75 16 132/81 H 100 05/12/18 07:54 05/12/18 07:54 05/12/18 07:54 05/12/18 07:54 05/12/18 07:54 Oxygen Delivery Method Room Air Weight: 128 lb 4.944 oz Body Mass Index (BMI) 19.5 Finger Stick Blood Glucose 131 Intake and Output for Last 24 Hours 05/10/18 05/11/18 05/12/18 23:59 23:59 23:59 Intake Total 5249 / 5249 1110 / 1110 Output Total 3450 / 3450 1650 / 1650 Balance 1799 / 1799 -540 / -540 Laboratory Tests Past 24 Hrs 05/12/18 05/12/18 05:14 05:14 Sodium 140 Potassium 2.9 L Chloride 106 Carbon Dioxide 24.0 Anion Gap 10 BUN 9 Creatinine 0.64 L Estim Creat Clear Calc 152.83 Est GFR (MDRD) Af Amer 206 Est GFR (MDRD) Non-Af 170 BUN/Creatinine Ratio 14.0 Glucose 162 H Calcium 8.0 L Phosphorus 2.5 Magnesium 1.8 POC Glucose 05/12/18 05/11/18 05/11/18 07:34 22:45 16:27 POC Glucose 175 H 331 H 261 H 05/11/18 11:16 POC Glucose 331 H Discharge Activity: No Restrictions Call your doctor if you observe: Numbness or Tingling, Dizziness, Fainting spells Home Medications: Medications to take at Discharge insulin aspart U- 100 100 unit/mL subcutaneous pen See Rx Instructions SC QDAY 08/10/17 Insulin Glargine,Hum.rec.anlog [Basaglar Kwikpen U-100] 30 unit SQ BIDAC #1 insuln.pen 05/12/18 Insulin Lispro [Humalog KwikPen] 5 unit SC TIDAC #1 insuln.pen 05/12/18 Following Prescrptions Were Given to Patient: Insulin Lispro [Humalog KwikPen] 5 unit SC TIDAC #1 insuln.pen Primary Care Physician: Scott Gomez MD [Primary Care Provider] - Please follow up with your Primary Care Physician in: in 3-5 days Please Follow Up With: [facility] Doctor,Out of - Demolition Specialist When: in 1-2 weeks Disposition: Home Minutes spent on discharge:: 35 Patient Condition:: Good Medical Necessity - Tobacco Use Smoking Status: Never smoker Tobacco Use: Non-smoker Meaningful Use Info Meaningful Use Diagnoses (Choose all that apply): None applicable Code Visit Inpatient E&M: 19564 Disch Hosp
--- NOTE | 2018-05-12 10:41 | DS.PCM_ITS ---
Discharge Date and Diagnosis Date of Admission: 05/10/18 Date of Discharge: 05/12/18 - Secondary Discharge Diagnosis Chronic Problems (Last Reviewed 03/20/18 @ 15:05 by Amanda Wilkinson) Anxiety and depression (Chronic) GERD (gastroesophageal reflux disease) (Chronic) Fatty liver (Chronic) Suicidal ideations (Chronic) DM I (diabetes mellitus, type I), uncontrolled (Chronic) Hospital Course and Treatment Imaging Results: None Consults: ICU Operations: None Procedures: None Summary of Care Provided: Per HPI: The patient is a 17 y/o M w/ PMHx: Diabetes mellitus type I w/ serial admissions for DKA, Prior Noted Elevated Liver Enzymes of unclear etiology following w/ [facility], Anxiety and Depression w/ prior suicidal ideation admissions following w/ Crisis Center who presents to the [facility] ED on 05/10/18 with lightheadedness, dizziness, nausea and emesis as well as generalized abdominal pain. He notes recently improved BS control. He states he has been skipping meals regularly but has been compliant with insulin. On most recent discharge 02/12/18 patient was arranged to be evaluated by Dr. Caldwell on 02/13/18, Adult Automobile Damage Field Appraiser and has been following with successfully since. Work-up in the ED included T 97.5, HR 136-->114, BP 146.92-->136/75, RR 30-->19, 100% on RA, CBC w/ WBC 9.4, Hgb 16.8, Plts 417 without marked shift, CMP w/ sodium 130, chloride 95, carbon dioxide 6, anion gap 29, BUN/creatinine 18/1.36, glucose 676, AST/ALT 88/196, alk phos 186, lipase 33, acetone large. In the ED patient administered NS 3L bolus, phenergan IV, zofran IV, insulin drip initiated. Vital Signs - 24 hr Temp Pulse Resp BP Pulse Ox 05/12/18 07:54 98.1 F 75 16 132/81 H 100 05/12/18 06:54 98 05/12/18 02:15 98.9 F 75 16 133/85 H 99 05/11/18 20:33 98.3 F 93 16 125/88 H 100 05/11/18 15:24 97.6 F L 88 16 112/67 98 General: Alert, Oriented x3, Cooperative, No apparent distress HEENT: Atraumatic, EOMI, Normocephalic Oral: Moist Mucosa Neck: Supple, No JVD Lungs: Clear to auscultation, Normal air movement, No rhonchi, No wheeze, No rales Cardiovascular: Regular rate, Regular Rhythm, Normal S1, Normal S2, No murmurs Abdomen: Soft, Non Tender, Non-Distended, No Hepato-splenomegaly Extremities: No edema, Capillary Refill Less than 3 Seconds Skin: No rashes, No breakdown, Ulcer/ Wound Neurological: Neuro grossly intact, Sensory exam intact to light touch and pain Psych/Mental Status: Normal Affect, Appropriate Hospital Course: 1. DKA 2/2 DM1/SAMUEL (resolved)/HTN (resolved) - He has had multiple previous epis odes of DKA in the past. He used to have an insulin pump and a sensor however the insurance company stopped covering the sensor. He was switched to long acting and SSI, however the SSI did not work because he was not very good at monitoring his blood sugars. He was switched to long acting and carb ratio at meals with 1 U of insulin per 7G of carbs. This did not seem to help much either. I spoke to him extensively about eating consistently three times a day to make his life and insulin dosing easier. Will DC home today on Lantus 30 U BID, Novolog 5U TIDWM, and his carb ratio. He is to follow-up with his PCP and emergency veterinary technician. 2. H/o elevated LFTs - His AST and ALT did improve during his inpatient stay and I recommend that he have outpatient follow-up for this issue, likely related to his uncontrolled DM leading to fatty infiltration of the liver as seen on his liver US in july. 3. His other diagnoses were evaluated and his home medications were continued where appropriate - Physical Exam Vital Signs Temp Pulse Resp BP Pulse Ox 98.1 F 75 16 132/81 H 100 05/12/18 07:54 05/12/18 07:54 05/12/18 07:54 05/12/18 07:54 05/12/18 07:54 Oxygen Delivery Method Room Air Weight: 128 lb 4.944 oz Body Mass Index (BMI) 19.5 Finger Stick Blood Glucose 131 Intake and Output for Last 24 Hours 05/10/18 05/11/18 05/12/18 23:59 23:59 23:59 Intake Total 5249 / 5249 1110 / 1110 Output Total 3450 / 3450 1650 / 1650 Balance 1799 / 1799 -540 / -540 Laboratory Tests Past 24 Hrs 05/12/18 05/12/18 05:14 05:14 Sodium 140 Potassium 2.9 L Chloride 106 Carbon Dioxide 24.0 Anion Gap 10 BUN 9 Creatinine 0.64 L Estim Creat Clear Calc 152.83 Est GFR (MDRD) Af Amer 206 Est GFR (MDRD) Non-Af 170 BUN/Creatinine Ratio 14.0 Glucose 162 H Calcium 8.0 L Phosphorus 2.5 Magnesium 1.8 POC Glucose 05/12/18 05/11/18 05/11/18 07:34 22:45 16:27 POC Glucose 175 H 331 H 261 H 05/11/18 11:16 POC Glucose 331 H Discharge Activity: No Restrictions Call your doctor if you observe: Numbness or Tingling, Dizziness, Fainting spells Home Medications: Medications to take at Discharge insulin aspart U- 100 100 unit/mL subcutaneous pen See Rx Instructions SC QDAY 08/10/17 Insulin Glargine,Hum.rec.anlog [Basaglar Kwikpen U-100] 30 unit SQ BIDAC #1 insuln.pen 05/12/18 Insulin Lispro [Humalog KwikPen] 5 unit SC TIDAC #1 insuln.pen 05/12/18 Following Prescrptions Were Given to Patient: Insulin Lispro [Humalog KwikPen] 5 unit SC TIDAC #1 insuln.pen Primary Care Physician: Scott Gomez MD [Primary Care Provider] - Please follow up with your Primary Care Physician in: in 3-5 days Please Follow Up With: [facility] Doctor,Out of - Automobile Damage Field Appraiser When: in 1-2 weeks Disposition: Home Minutes spent on discharge:: 35 Patient Condition:: Good Medical Necessity - Tobacco Use Smoking Status: Never smoker Tobacco Use: Non-smoker Meaningful Use Info Meaningful Use Diagnoses (Choose all that apply): None applicable Code Visit Inpatient E&M: [id number] Disch Hosp
== END 2018-05-12 12:30 | disposition home or self-care (01) | DRG 420 ==
LOC: ED 23:42 → ICU 05-10 02:54 → MS2 05-11 08:05 → ICU 05-11 11:00 → MS2 05-11 11:00
PROVIDERS: Admitting Provider Family Medicine; Emergency Provider Emergency Medicine; Family Provider Pediatrics; PCP Pediatrics; Visit Provider Family Medicine
DX: E10.10 Type 1 diabetes mellitus with ketoacidosis without coma (principal); N17.9 Acute kidney failure, unspecified; K76.0 Fatty (change of) liver, not elsewhere classified; F41.9 Anxiety disorder, unspecified; F32.9 Major depressive disorder, single episode, unspecified; K21.9 Gastro-esophageal reflux disease without esophagitis; Z79.4 Long term (current) use of insulin; Z23 Encounter for immunization
CPT/HCPCS: 36415; 36600; 80048; 80076; 82009; 82803; 82962; 83036; 83690; 83735; 84100; 85025; 85027; 87641; 93005; 97802; 99285; J7030; J7120; 90686; A4216; J2405

== ENCOUNTER 2018-06-16 15:18 | Emergency (ER) | payer MEDICAID, SELFPAY ==
[2018-06-16 15:20] VITALS: BP 122/92; PULSE 126; RESP 18; TEMP 36.4; O2SAT 100; BMI 20.8
[2018-06-16 15:31] LABS: Bedside Glucose 370 mg/dL (70-110)
--- NOTE | 2018-06-16 15:48 | ED.DCSUM_ITS ---
- ER Visit Summary Date of Service: 06/16/18 Chief Complaint: Elevated blood sugar History of Present Illness: The patient is a 17 M [place]. Prior DKA. States he just been started on antibiotics for a sinus infection but addition. Yesterday his blood sugars are running between 180 and 250. Today his blood sugars consistently been running above 400. He does not feel like he is in DKA. He denies any nausea or vomiting. He has had diarrhea. He denies any fever. No dysuria. Physical Examination: Well-appearing young male. Vital signs are stable. Afebrile. No distress. H EENT exam unremarkable. Moist mucous membranes. Neck nontender. Lungs clear to auscultation bilaterally. Heart regular rhythm no murmur. Abdomen soft nontender. Moving all 4 extremities. Neurovascularly intact. Neurologically is awake and alert with no focal motor deficits. Test Results: BMP shows elevated anion gap of 20. CO2 15. Potassium 3.3. Glucose of 284. Normal BUN and creatinine. This potentially could be early DKA but clinically looks well and is not having any other symptoms consistent with DKA. Even if it is I think with IV fluids and the insulin the patient will be well enough to be discharged home. Emergency Department Course and Treatment: Patient treated with 1 L normal saline and 10 units subcu of insulin. On repeat exam patient is doing well. His repeat BGT is 220s. He will be observed for period of time a second blood sugar will be rechecked and if he is doing well be discharged to home. Treatment Plan: Fluids and rest. Watch his blood sugars closely. Return if feeling worse. Disposition: Discharge Impression: Acute hyperglycemia History of insulin-dependent diabetes This note was generated with [employer] dictation software. It may contain incorrect words, spelling, and punctuation that were not noted in review of the chart prior to signing ED Disposition - Plan for ED Patient: Chief Complaint: Hyperglycemia Referrals: Scott Gomez MD [Primary Care Provider] -
[2018-06-16] MEDS: Insulin Lispro 100 UNIT/ML INSULN.PEN 10 UNIT SC (16:08)
[2018-06-16] MEDS: 0.9% Normal Saline 1,000 ML 1000 ML IV (16:08)
[2018-06-16 16:39] LABS: Anion Gap 20 (5-15); BUN 17 mg/dL (7-18); BUN/Creat Ratio 14.7 RATIO (10-20); Calcium,Total 9.1 mg/dL (8.5-10.1); Chloride 106 mmol/L (98-107); Creatinine, Serum 1.16 mg/dL (0.70-1.30); EST Glomerular Filtration Rate 86 mL/min (>60); Est Glom Filt Rate - Afr Amer 104 mL/min (>60); Estimated Creatinine Clearance 87.36 ml/min; Glucose 284 mg/dL (74-106); Potassium 3.3 mmol/L (3.5-5.1); Sodium Level 141 mmol/L (136-145)
[2018-06-16 16:50] LABS: Bedside Glucose 229 mg/dL (70-110)
--- NOTE | 2018-06-16 17:06 | ED.DEP ---
ED Disposition - Plan for ED Patient: Disposition: Home or Assisted Living Chief Complaint: Hyperglycemia Instructions: ED Hyperglycemia Diabetic Referrals: Scott Gomez MD [Primary Care Provider] - 3-5 Days if not improving Additional Instructions: Watch blood sugars very closely. Return to the ER if you are feeling worse or your blood sugars are consistently over 400. Plenty of water and rest.
[2018-06-16] MEDS: 0.9% Normal Saline 1,000 ML 999 ML IV (17:27)
[2018-06-16 18:11] LABS: Bedside Glucose 107 mg/dL (70-110)
[2018-06-16 18:20] VITALS: RESP 18
[2018-06-16 18:37] VITALS: PULSE 100; RESP 18; O2SAT 100
[2018-06-16 18:41] LABS: Bedside Glucose 115 mg/dL (70-110)
--- OUTSIDE RECORDS SUMMARY | 2018-08-10 21:16 | XMS RPT_ITS ---
:2000 Author Organization [employer] Name Relationship Address Phone BERNA WANG Unavailable [address] + [place] [address] UE Unavailable Unavailable Unavailable BERNA WANG Unavailable [address] + [place] [address] UE Unavailable Unavailable Unavailable BERNA WANG Unavailable [address] + [place] [address] UE Unavailable Unavailable Unavailable BERNA WANG Unavailable [address] + [place] [address] UE Unavailable Unavailable Unavailable BERNA WANG Unavailable [address] + [place] [address] UE Unavailable Unavailable Unavailable BERNA WANG Unavailable [address] + [place] [address] UE Unavailable Unavailable Unavailable BERNA WANG Unavailable [address] + [place] [address] UE Unavailable Unavailable Unavailable BERNA WANG Unavailable [address] + [place] [address] UE Unavailable Unavailable Unavailable BERNA WANG Unavailable [address] + [place] [address] UE Unavailable Unavailable Unavailable BERNA WANG Unavailable [address] + [place] [address] UE Unavailable Unavailable Unavailable BERNA WANG Unavailable [address] + [place] [address] UE Unavailable Unavailable Unavailable BERNA WANG Unavailable [address] + [place] [address] UE Unavailable Unavailable Unavailable FELIPE, BERNA Unavailable [address] + [place] [address] UE Unavailable Unavailable Unavailable FELIPE BERNA Unavailable [address] + [place] [address] UE Unavailable Unavailable Unavailable FELIPE BERNA Unavailable [address] + [place] [address] UE Unavailable Unavailable Unavailable FELIPE BERNA Unavailable [address] + [place] [address] UE Unavailable Unavailable Unavailable FELIPE BERNA Unavailable [address] + [place] [address] UE Unavailable Unavailable Unavailable FELIPE BERNA Unavailable [address] + [place] [address] UE Unavailable Unavailable Unavailable FELIPE BERNA Unavailable [address] + [place] [address] UE Unavailable Unavailable Unavailable FELIPE BERNA Unavailable [address] + [place] [address] [facility] Unavailable [address] + [place] [address] FELIPE BERNA Unavailable [address] + [place] [address] UE Unavailable Unavailable Unavailable FELIPE BERNA Unavailable [address] + [place] [address] [facility] Unavailable [address] + [place] [address] FELIPE BERNA Unavailable [address] + [place] [address] [facility] Unavailable [address] + [place] [address] FELIPE BERNA Unavailable [address] + [place] [address] [facility] Unavailable [address] + [place] [address] FELIPE BERNA Unavailable [address] + [place] [address] [facility] Unavailable [address] + [place] [address] FELIPE, BERNA Unavailable [address] + [place] [address] [facility] Unavailable [address] + [place] [address] FELIPE, BERNA Unavailable [address] + [place] [address] [employer] Unavailable [address] + [place] [address] FELIPE, BERNA Unavailable [address] + [place] [address] [facility] Unavailable [address] + [place] [address] FELIPE, BERNA Unavailable [address] + [place] [address] [facility] Unavailable [address] + [place] [address] FELIPE, BERNA Unavailable [address] + [place] [address] [facility] Unavailable [address] + [place] [address] FELIPE, BERNA Unavailable [address] + [place] [address] [facility] Unavailable [address] + [place] [address] FELIPE, BERNA Unavailable [address] + [place] [address] [facility] Unavailable [address] + [place] [address] FELIPE, BERNA Unavailable [address] + [place] [address] [facility] Unavailable [address] + [place] [address] FELIPE, BERNA Unavailable [address] + [place] [address] [facility] Unavailable [address] + [place] [address] FELIPE, BERNA Unavailable [address] + [place] [address] [facility] Unavailable [address] + [place] [address] FELIPE, BERNA Unavailable [address] + [place] [address] [facility] Unavailable [address] + [place] [address] FELIPE, BERNA Unavailable [address] + [place] [address] [facility] Unavailable [address] + [place] [address] FELIPE, BERNA Unavailable [address] + [place] [address] +. [place] [address] FELIPE, BERNA Unavailable [address] + [place] [address] +. [place] [address] FELIPE, BERNA Unavailable [address] + [place] [address] [facility] Unavailable [address] + [place] [address] Care Team Providers Name Role Phone DOREEN COFFMAN (COMMERCIAL SOLAR SALES CONSULTANT) Attending Unavailable SCOTT BRADEN Attending Unavailable ASIYASCOTT P Attending Unavailable LA SONG (HEAVY EQUIPMENT SALES MANAGER) Attending Unavailable SCOTT BRADEN Attending Unavailable SCOTT BRADEN P Referring Unavailable KANVARAM SELGREGG MCLEAN (FEL) Attending Unavailable LEANNA KILGORE Referring Unavailable CONJEEVARAM SELVAKKACY, GREGG BUTLER (FEL) Referring Unavailable CONJEEVARAM SELITZELKKACY, GREGG BUTLER (FEL) Attending Unavailable SCOTT BRADEN P Referring Unavailable KAMI GAMBLE (HEAVY EQUIPMENT SALES MANAGER) Attending Unavailable KAMI GAMBLE (HEAVY EQUIPMENT SALES MANAGER) Attending Unavailable SONALEEVARAM GREGG GRAHAM (FEL) Attending Unavailable CONJEEVARAM SELITZELKKACY, GREGG CARRIE (FEL) Referring Unavailable KAMI GAMBLE (HEAVY EQUIPMENT SALES MANAGER) Attending Unavailable SCOTT BRADEN P Attending Unavailable KAMI GAMBLE (HEAVY EQUIPMENT SALES MANAGER) Attending Unavailable Scott Braden Primary Care Unavailable Mei Polk Admitting Unavailable Pranay Solitario Attending Unavailable Mei Polk Attending Unavailable Kittoe, Pranay Attending Unavailable Kittoe, Pranay Attending Unavailable Asiya, Scott Primary Care Unavailable Kittoe, Pranay Admitting Unavailable Kittoe, Pranay Attending Unavailable Kittoe, Pranay Admitting Unavailable Kittoe, Pranay Attending Unavailable Asiya, Scott Primary Care Unavailable Kittoe, Pranay Consulting Unavailable Kittoe, Pranay Admitting Unavailable Kittoe, Pranay Attending Unavailable Asiya, Scott Primary Care Unavailable Kittoe, Pranay Consulting Unavailable Kittoe, Pranay Admitting Unavailable Kittoe, Pranay Attending Unavailable Asiya, Scott Primary Care Unavailable Kittoe, Pranay Consulting Unavailable ShookIlda HEAVY EQUIPMENT SALES MANAGER-C Attending Unavailable Asiya, Scott Referring Unavailable Asiya, Scott Primary Care Unavailable Asiya, Scott Primary Care Unavailable Charles Cortez Referring Unavailable Tereletsky, Froylan Admitting Unavailable Ashelfah, Ghasem Attending Unavailable Tereletsky, Froylan Admitting Unavailable Tereletseleni, Froylan Attending Unavailable Charles Cortez Referring Unavailable Asiya, Scott Primary Care Unavailable Nawaf, Froylan Consulting Unavailable Chuck Walker Attending Unavailable Kittoe, Pranay Referring Unavailable Tereletsky, Froylan Admitting Unavailable Ashelfah, Ghasem Attending Unavailable Charles Cortez Referring Unavailable Asiya, Scott Primary Care Unavailable Ashelfah, Ghasem Consulting Unavailable Asiya, Scott Primary Care Unavailable Mila Gibbons Attending Unavailable Ilda Chavez HEAVY EQUIPMENT SALES MANAGER-C Attending Unavailable Asiya, Scott Referring Unavailable Asiya, Scott Primary Care Unavailable Ilda Chavez HEAVY EQUIPMENT SALES MANAGER-C Attending Unavailable Asiya, Scott Referring Unavailable ShoIlda chua HEAVY EQUIPMENT SALES MANAGER-C Attending Unavailable Shook, Ilda Briggs HEAVY EQUIPMENT SALES MANAGER-C Referring Unavailable Asiya, Scott Primary Care Unavailable Asiya, Scott Primary Care Unavailable Felicitas, Mei Admitting Unavailable Kyaw Cheney D.O. Consulting Unavailable Pranay Solitario Attending Unavailable White, Mei Admitting Unavailable White, Mei Attending Unavailable Asiya, Scott Primary Care Unavailable White, Mei Consulting Unavailable Shoharshil, Ilda Briggs HEAVY EQUIPMENT SALES MANAGER-C Attending Unavailable Asiya, Scott Primary Care Unavailable Jacinto Dietrich Attending Unavailable Ilda Chavez HEAVY EQUIPMENT SALES MANAGER-C Attending Unavailable Asiya, Scott Referring Unavailable Asiya, Scott Primary Care Unavailable Asiya, Scott Primary Care Unavailable Charles Cortez Attending Unavailable Asiya, Scott Primary Care Unavailable Ashelfah, Ghasem Admitting Unavailable Hong Meyer Consulting Unavailable Marcie Haines Attending Unavailable Ashelfah, Ghasem Admitting Unavailable Ashelfah, Ghasem Attending Unavailable Asiya, Scott Primary Care Unavailable Ashelfah, Ghasem Consulting Unavailable Ashelfah, Ghasem Admitting Unavailable Marcie Haines Attending Unavailable Asiya, Scott Primary Care Unavailable Mitch, Hong Consulting Unavailable Jopperi Marcie Consulting Unavailable Asiya, Scott Primary Care Unavailable Agyepong, Marcelo Admitting Unavailable Nawaf, Froylan Attending Unavailable Mitch, Hong Consulting Unavailable Agyepong, Marcelo Admitting Unavailable Agyepong, Marcelo Attending Unavailable Asiya, Scott Primary Care Unavailable Tereletsky, Froylan Consulting Unavailable Agyepong, Marcelo Admitting Unavailable Tereletsky, Froylan Attending Unavailable Asiya, Scott Primary Care Unavailable Mitch, Hong Consulting Unavailable Sashaky, Froylan Consulting Unavailable Mitch, Hong Attending Unavailable Ashelfah, Ghasem Referring Unavailable Ilda Chavez HEAVY EQUIPMENT SALES MANAGER-C Attending Unavailable Asiya, Scott Referring Unavailable Asiya, Scott Primary Care Unavailable Asiya, Scott Primary Care Unavailable White, Mei Admitting Unavailable Kyaw Cheney D.O. Consulting Unavailable Kotsonis, Phill F Attending Unavailable White, Mei Admitting Unavailable White, Mei Attending Unavailable Asiya, Scott Primary Care Unavailable White, Mei Consulting Unavailable White, Mei Admitting Unavailable Kyaw Cheney D.O. Attending Unavailable Asiya, Scott Primary Care Unavailable Kyaw Cheney D.O. Consulting Unavailable Kotsonis, Phill F Consulting Unavailable White, Mei Admitting Unavailable Kotsonis, Phill F Attending Unavailable Asiya, Scott Primary Care Unavailable Kotsonis, Phill F Consulting Unavailable White, Mei Admitting Unavailable Kotsonis, Phill F Attending Unavailable Asiya, Scott Primary Care Unavailable Kotsonis, Phill F Consulting Unavailable Asiya, Scott Primary Care Unavailable Charles Cortez Attending Unavailable Asiya, Scott Primary Care Unavailable Koram, Marianne Elizabeth Admitting Unavailable White, Mei Attending Unavailable Koram, Marianne Elizabeth Admitting Unavailable Koram, Marianne Elizabeth Attending Unavailable Asiya, Scott Primary Care Unavailable Koram, Marianne Elizabeth Consulting Unavailable Koram, Marianne Elizabeth Admitting Unavailable White, Mei Attending Unavailable Asiya, Scott Primary Care Unavailable White, Mei Consulting Unavailable PROBLEMS PROBLEMS DATE TYPE CONDITION / CODE ATTENDING STATUS SOURCE 01/16/2018 Active Fatty (change of) NA Active [facility] liver, not elsewhere Clinic Main classified / [place] K76.0(ICD-10) Repository 02/14/2018 Unknown E10.10 - Type 1 Hong Meyer Active [place] diabetes mellitus with Community ketoacidosis without Hospital coma / E10.10(ICD-10) Repository 01/08/2018 Active Right upper quadrant NA Active [facility] pain / R10.11(ICD-10) Clinic Main [place] Repository 01/08/2018 Active Type 1 diabetes NA Active [place] mellitus with Clinic Main hyperglycemia / [place] E10.65(ICD-10) Repository 01/09/2018 Active Hepatomegaly, not NA Active [facility] elsewhere classified / [facility] Main R16.0(ICD-10) [place] Repository 01/03/2018 Active Unknown / UNK(Unknown) LA SONG Active [facility] (HEAVY EQUIPMENT SALES MANAGER) Clinic Main [place] Repository 10/30/2017 Unknown R45.851 - Suicidal KitPranay welsh Active [place] ideations / Community R45.851(ICD-10) Hospital Repository 10/17/2017 Unknown E10.65 - Type 1 Ilda Chavez Active [place] diabetes mellitus with J HEAVY EQUIPMENT SALES MANAGER-C Community hyperglycemia / Hospital E10.65(ICD-10) Repository 09/08/2017 Unknown R94.31 - Abnormal Mood[place], Active [place] electrocardiogram [facility] [ECG] [EKG] / Hospital R94.31(ICD-10) Repository 07/21/2017 Unknown J32.9 - Chronic Pranay Solitario Active [place] sinusitis, unspecified Community / J32.9(ICD-10) Hospital Repository PROCEDURES PROCEDURES No Procedure Records FoundRESULTS RESULTS CNOV Observed: 06/29/2018 Status: COMPLETED Source: [place] 1:45 PM [facility] REPOSITORY Office Visit (SHERIDAN) VAHID WANG ([id number]) 2000 M Date Time Provider Department 06/29/18 1:45 PM KAMI GAMBLE) SHERIDAN During your visit today, we recorded the following information about you: Pulse Blood pressure Weight Height 122/minute 131/80 62.6 kg 1.73 m Kami Gamble APRN.KAYLEE 06/29/2018 2:11 PM Signed Reason for Consultation: DM Type 1 Referring Physician: SELF HISTORY OF PRESENT ILLNESS Mr. Wang is a 17 year old male presenting here today for a follow up of DM Type 1. As I recall, he was initially diagnosed with diabetes 2002. LV 05/18/2018. Her for an interval visit due to high A1C. A1C 13.0 on 05/18/2018 Here with his grandmother. He is in the process of obtaining dexcom. They need 90 days of blood glucose log. Hospitalized since last visit with DKA due to flu and sinus infection contributing. 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 Was in hospital for DKA recently and basaglar increased. States he had not been checking sugar, taking insulin and was rebelling against diabetes. States he has been working at controlling his sugars and taking insulin over the last week. Ordered labs last visit but have not been done. He is more interested in freestyle trav (denied previously by insurance) or dexcom. Does not drive. States he was fired from [employer] for his health. ? Known complications include: DKA ? Exacerbating factors include: none ? Current diabetes regimen is as follows: 1. Basaglar 30 units AM and 30 units PM novolog ratio 1:5 meals; Correction 1:40 For sugars over 180. he is checking his blood glucose 0-6 times daily. *Days when not checking he goes by how he feels when deciding on is insulin dose. he does bring a log book today for review-- 7 readings in the last week per meter download. ? LDE Blood Sugar Frequency: ? FBS (12-2 pm) 300's ? HS (9-10 pm) 400's ? Hypoglycemia frequency: occasional; lows 6-7 pm while at work in 40-50 range. ? Hypoglycemia awareness: Yes Regarding symptoms of hypoglycemia, he is is not experiencing any symptoms such as polyuria, polydipsia, nocturia or rapid weight loss or blurry vision, Overall, the patient has no acute complaints at this time. PAST MEDICAL HISTORY Diagnosis Date - Attention deficit disorder with hyperactivity(314.01) - Conduct disorder, childhood onset type - Foot fracture, right growth plate involved - Fracture of clavicle, right, closed 2016 - Generalized convulsive epilepsy without mention of intractable epilepsy - Other abnormal heart sounds normal echocardiogram. Holter monitor that - Right wrist fracture - Sensorineural hearing loss, unspecified - Type I (juvenile type) diabetes mellitus without mention of complication, not stated as uncontrolled 05/19 - Unspecified viral meningitis PAST SURGICAL HISTORY Procedure Laterality Date - MYRINGOTOMY W TUBE,BILATERAL(2) FAMILY HISTORY Problem Relation Age of Onset - other (renal failure) Mother - Thyroid Father - other (adhd) Father - other (hearing loss: congenital) Father - other (hypercholesterlemia) Father - Heart Paternal Grandmother [place] - other (irritable bowel syndrome) Sister - other (migraine) Sister - Cancer Paternal Grandfather possibly lung cancer - Hearing Loss Paternal Grandfather congenital - Hearing Loss Brother congenital - other (adhd) Brother 15 - other (sleeping disorder) Brother Social History Marital status: Single Spouse name: Years of education: Number of children: Social History Main Topics Smoking status: Never Smoker Smokeless tobacco: Never Used Comment: Grandmother smokes outside of the home Alcohol use: No Drug use: No Sexual activity: No Social History Narrative Social History: Living in home: Paternal Grandmother and sister 19, father is legal guardian Primary general internist and physician leader(s): Allergies As of Date: 06/29/2018 (No Known Allergies) Fully Assessed 06/29/2018 Current Outpatient Prescriptions: amoxicillin (AMOXIL) 875 mg tablet Take 1 tablet by mouth twice daily for 14 days. Disp: 28 tablet Rfl: 0 blood sugar diagnostic (FREESTYLE LITE STRIPS) test strip USE TO TEST UP TO 12 TIMES A DAY DIRECTED Disp: 300 Strip Rfl: 11 glucagon, human recombinant, (GLUCAGON EMERGENCY KIT, HUMAN,) 1 mg injection use as directed, call if used Disp: 1 Each Rfl: 2 insulin aspart U-100 (NOVOLOG FLEXPEN U-100 INSULIN) 100 unit/mL inpn TAKE 1 UNIT FOR 5 GRAMS CARB UP TO 100 UNITS DAILY Disp: 15 Pen Rfl: 11 insulin glargine (BASAGLAR KWIKPEN U-100 INSULIN) 100 unit/mL (3 mL) inpn Inject 30 units AM and 30 units PM Disp: Rfl: Insulin [place], Disposable, (BD ULTRAFINE III MINI PEN) 31 gauge x 3/16 ndle use as directed 10 times daily Disp: 300 Each Rfl: 11 Insulin Syringe-Needle U-100 (BD INSULIN SYRINGE HALF UNIT) 0.3 mL 31 x 5/16 syrg use as directed Disp: 100 Syringe Rfl: 11 Lancets lancets Use as instructed Disp: 300 Each Rfl: 11 Omeprazole (PRILOSEC) 40 mg capsule Take 1 capsule by mouth once daily. Disp: 30 capsule Rfl: 1 No current facility-administered medications for this visit. REVIEW OF SYSTEMS General: no fever and no chills Skin: no rashes, pruritis or dry skin Cardiac: denies chest pain, heart palpitations or orthopnea Pulmonary: denies wheezing, productive cough or exertional dyspnea PHYSICAL EXAMINATION BP 131/80 (BP Site: Left Arm, BP Position: Sitting, BP Cuff Size: Regular Adult) Pulse 122 Ht 173 cm (5' 8.11) Wt 62.6 kg (138 lb) SpO2 97% BMI 20.92 kg/m2 Physical Exam Constitutional: He is oriented to person, place, and time and well-developed, well-nourished, and in no distress. No distress. HENT: Head: Normocephalic and atraumatic. Eyes: Right eye exhibits no discharge. Left eye exhibits no discharge. Neck: No thyromegaly present. Cardiovascular: Normal rate and regular rhythm. Pulmonary/Chest: Effort normal and breath sounds normal. Musculoskeletal: He exhibits no edema. Lymphadenopathy: He has no cervical adenopathy. Neurological: He is alert and oriented to person, place, and time. Skin: Skin is warm and dry. He is not diaphoretic. Psychiatric: Mood, memory, affect and judgment normal. DATA Creatinine Date Value Ref Range Status 01/16/2018 0.68 (L) 0.73 - 1.22 mg/dL Final Hemoglobin A1C (%) Date Value 01/16/2018 13.5 Hemoglobin A1C (POCT) (%) Date Value 05/18/2018 13.0 ) No components found for: URINEALBUMIN Cholesterol, Total (mg/dL) Date Value 11/15/2016 219 HDL Cholesterol (mg/dL) Date Value 11/15/2016 20 LDL Cholesterol (mg/dL) Date Value 11/15/2016 127 Triglyceride (mg/dL) Date Value 11/15/2016 360 IMPRESSION: Mr. Wang is a 17 year old male here for evaluation of DM Type 1 complicated by DKA, hypoglycemia RECOMMENDATIONS: (E10.65) Diabetes mellitus type 1, uncontrolled, without complications (HCC) (primary encounter diagnosis) Comment: Glycemic control remains above goal. Dexcom needs 90 days worth of blood glucose readings before they will approve. This was discussed with the patient. We discussed the importance of checking the sugar to determine the proper dose of insulin. He is having repeated episodes of DKA but still is not regularly monitoring his sugars. Plan: COMP METABOLIC PANEL, ALBUMIN/CREAT RATIO RND UR, LDL CHOLESTEROL DIR, TSH BLD Check sugar 4x per day for 90 days to obtain dexcom. Send them into us to fax to dexcom. Basaglar AM 34 units PM 34 units Novolog Breakfast 1 units per 5 grams carbs Lunch 1 units per 5 grams carbs Dinner 1 units per 5 grams carbs . Correction 1:40 for sugars over 180. Follow up in 2 months Have labs done within the next week. 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 Will work to improve glycemic control (E10.649) Hypoglycemia due to type 1 diabetes mellitus (HCC) Comment/Plan: he has not had any episodes lately. Kami Gamble APRN, HEAVY EQUIPMENT SALES MANAGER-C Endocrinology [facility] Office [facility]/[address], [address] [place] [address] Fax: Kami Gamble APRN.COMMERCIAL SOLAR SALES CONSULTANT 06/29/2018 2:02 PM Addendum 1. Check sugar 4x per day for 90 days to obtain dexcom. Send them into us to fax to dexcom. 2. Basaglar AM 34 units PM 34 units 3. Novolog Breakfast 1 units per 5 grams carbs Lunch 1 units per 5 grams carbs Dinner 1 units per 5 grams carbs . Correction 1:40 for sugars over 180. 4. Follow up in 2 months 5. Have labs done within the next week. Kami Gamble APRN, ALLI-C Endocrinology [facility] Medical Office [facility]/[address], [address] [place] [address] Fax: Referring Provider: SELF [200] Allergies As of Date: 06/29/2018 (No Known Allergies) Date Reviewed: 06/29/2018 Reviewed by: Kami Gamble - Fully Assessed Reason for Visit: Diabetes [34] Primary Visit Diagnosis:Diabetes mellitus type 1, uncontrolled, without complications (HCC) [E10.65] Other Visit Diagnoses:Glycogenic hepatopathy [K75.81] Hypoglycemia due to type 1 diabetes mellitus (HCC) [E10.649] Order(s):COMP METABOLIC PANEL [SQCMP] Order #: [id number] FUTURE ALBUMIN/CREAT RATIO RND UR [SQUACR] Order #: [id number] FUTURE LDL CHOLESTEROL DIR [SQLDLDCT] Order #: [id number] FUTURE TSH BLD [SQTSH] Order #: [id number] FUTURE insulin glargine (BASAGLAR KWIKPEN U-100 INSULIN) 100 unit/mL (3 mL) inpnInject 34 units AM and 34 units PMDisp: Rfl: Prescriptions as of 06/29/2018 Sig: AMOXICILLIN 875 MG TABLET Take 1 tablet by mouth twice * BLOOD SUGAR DIAGNOSTIC STRIPS USE TO TEST UP TO 12 TIMES A * GLUCAGON (HUMAN RECOMBINANT) * use as directed, call if used INSULIN ASPART U-100 100 UNI* TAKE 1 UNIT FOR 5 GRAMS CARB * INSULIN GLARGINE (U-100) 100 * Inject 34 units AM and 34 uni* PEN NEEDLE, DIABETIC 31 GAUGE* use as directed 10 times daily INSULIN SYRINGE U-100 WITH NE* use as directed LANCETS Use as instructed OMEPRAZOLE 40 MG CAPSULE,MANAN* Take 1 capsule by mouth once * Problem List As Of Date 06/29/2018 Noted Resolved Closed buckle fracture of radius [[id number]] INVALID FOR*02/16/2018 ADD (Attention Deficit Disorder) [F98.8] INVALID FOR* Fatty liver disease, nonalcoholic [K76.0] INVALID FOR* Accidental striking against or bumped into by a*INVALID FOR* Activity, running [Y93.02] INVALID FOR* Activity, soccer [Y93.66] INVALID FOR* Anxiety disorder [F41.9] INVALID FOR* Contusion of right foot [S90.31XA] INVALID FOR*02/16/2018 Cramp and spasm [R25.2] INVALID FOR* Type 1 diabetes mellitus with hyperglycemia (HC*INVALID FOR* Hyperglycemia [R73.9] INVALID FOR* Hepatomegaly, not elsewhere classified [R16.0] INVALID FOR* Hyperkalemia [E87.5] INVALID FOR*02/16/2018 Hypo-osmolality and hyponatremia [E87.1] INVALID FOR*02/16/2018 Chronic sinusitis [J32.9] INVALID FOR* long-term (current) use of insulin (HCC) [Z79.4]INVALID FOR* Nausea [R11.0] INVALID FOR*02/16/2018 Nausea with vomiting, unspecified [R11.2] INVALID FOR*02/16/2018 Other and unspecified overexertion or strenuous*INVALID FOR* Other external cause status [Y99.8] INVALID FOR* Hepatic steatosis [K76.0] INVALID FOR* Encounter for general adult medical examination*INVALID FOR* Suicidal ideations [R45.851] INVALID FOR* Abnormal electrocardiogram [R94.31] INVALID FOR* Right upper quadrant pain [R10.11] INVALID FOR*02/16/[address] of occurrence of external*INVALID FOR* Strain of unspecified muscle(s) and tendon(s) a*INVALID FOR* Suicidal ideation [R45.851] INVALID FOR* Unspecified external cause status [Y99.9] INVALID FOR* Unspecified place or not applicable [Y92.9] INVALID FOR* Unspecified sprain of right foot, initial encou*INVALID FOR* Ketonuria [R82.4] INVALID FOR* Epigastric pain [R10.13] INVALID FOR* Heartburn [R12] INVALID FOR* Gastroesophageal reflux disease [K21.9] INVALID FOR* Diabetes mellitus type 1, uncontrolled, without*INVALID FOR* Elevated liver enzymes [R74.8] INVALID FOR* Other instructions from your clinician: 1. Check sugar 4x per day for 90 days to obtain dexcom. Send them into us to fax to dexcom. 2. Basaglar AM 34 units PM 34 units 3. Novolog Breakfast 1 units per 5 grams carbs Lunch 1 units per 5 grams carbs Dinner 1 units per 5 grams carbs . Correction 1:40 for sugars over 180. 4. Follow up in 2 months 5. Have labs done within the next week. Kami Gamble APRN, ALLI-C Endocrinology [facility] Medical Office [facility]/[address] [place] [address] Fax: Prescriptions ordered this encounter Disp Refills Start End INSULIN GLARGINE (U-100) 100 UNIT/ML* 06/29/2018 Class: Med Update Sig: Inject 34 units AM and 34 units PM Medications Discontinued During This Encounter insulin glargine (BASAGLAR KWIKPEN U* 05/18/2018 06/29/2018 Class: Med Update Sig: Inject 30 units AM and 30 units PM Disc: Reason for discontinue is not on file. Follow-up and Disposition History Recorded Encounter Status:Closed by KAMI GAMBLE on 06/29/18 PROGRESS Observed: 06/29/2018 Status: COMPLETED Source: [place] 1:38 PM [facility] REPOSITORY HNO ID: [id number] Author: Kami (Alli) Rian Service: (none) Author Type: Nurse Practitioner Type: Progress Notes Filed: 06/29/2018 2:11 PM Note Text: Reason for Consultation: DM Type 1 Referring Physician: SELF HISTORY OF PRESENT ILLNESS Mr. Wang is a 17 year old male presenting here today for a follow up of DM Type 1. As I recall, he was initially diagnosed with diabetes 2003. LV 05/18/2018. Her for an interval visit due to high A1C. A1C 13.0 on 05/18/2018 Here with his grandmother. He is in the process of obtaining dexcom. They need 90 days of blood glucose log. Hospitalized since last visit with DKA due to flu and sinus infection contributing. 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 Was in hospital for DKA recently and basaglar increased. States he had not been checking sugar, taking insulin and was rebelling against diabetes. States he has been working at controlling his sugars and taking insulin over the last week. Ordered labs last visit but have not been done. He is more interested in freestyle trav (denied previously by insurance) or dexcom. Does not drive. States he was fired from [employer] for his health. ? Known complications include: DKA ? Exacerbating factors include: none ? Current diabetes regimen is as follows: 1. Basaglar 30 units AM and 30 units PM novolog ratio 1:5 meals; Correction 1:40 For sugars over 180. he is checking his blood glucose 0-6 times daily. *Days when not checking he goes by how he feels when deciding on is insulin dose. he does bring a log book today for review-- 7 readings in the last week per meter download. ? LDE Blood Sugar Frequency: ? FBS (12-2 pm) 300's ? HS (9-10 pm) 400's ? Hypoglycemia frequency: occasional; lows 6-7 pm while at work in 40-50 range. ? Hypoglycemia awareness: Yes Regarding symptoms of hypoglycemia, he is is not experiencing any symptoms such as polyuria, polydipsia, nocturia or rapid weight loss or blurry vision, Overall, the patient has no acute complaints at this time. PAST MEDICAL HISTORY Diagnosis Date - Attention deficit disorder with hyperactivity(314.01) - Conduct disorder, childhood onset type - Foot fracture, right growth plate involved - Fracture of clavicle, right, closed 2016 - Generalized convulsive epilepsy without mention of intractable epilepsy - Other abnormal heart sounds normal echocardiogram. Holter monitor that - Right wrist fracture - Sensorineural hearing loss, unspecified - Type I (juvenile type) diabetes mellitus without mention of complication, not stated as uncontrolled 05/19 - Unspecified viral meningitis PAST SURGICAL HISTORY Procedure Laterality Date - MYRINGOTOMY W TUBE,BILATERAL(2) FAMILY HISTORY Problem Relation Age of Onset - other (renal failure) Mother - Thyroid Father - other (adhd) Father - other (hearing loss: congenital) Father - other (hypercholesterlemia) Father - Heart Paternal Grandmother [place] - other (irritable bowel syndrome) Sister - other (migraine) Sister - Cancer Paternal Grandfather possibly lung cancer - Hearing Loss Paternal Grandfather congenital - Hearing Loss Brother congenital - other (adhd) Brother 15 - other (sleeping disorder) Brother Social History Marital status: Single Spouse name: Years of education: Number of children: Social History Main Topics Smoking status: Never Smoker Smokeless tobacco: Never Used Comment: Grandmother smokes outside of the home Alcohol use: No Drug use: No Sexual activity: No Social History Narrative Social History: Living in home: Paternal Grandmother and sister 19, father is legal guardian Primary general internist and physician leader(s): Allergies As of Date: 06/29/2018 (No Known Allergies) Fully Assessed 06/29/2018 Current Outpatient Prescriptions: amoxicillin (AMOXIL) 875 mg tablet Take 1 tablet by mouth twice daily for 14 days. Disp: 28 tablet Rfl: 0 blood sugar diagnostic (FREESTYLE LITE STRIPS) test strip USE TO TEST UP TO 12 TIMES A DAY DIRECTED Disp: 300 Strip Rfl: 11 glucagon, human recombinant, (GLUCAGON EMERGENCY KIT, HUMAN,) 1 mg injection use as directed, call if used Disp: 1 Each Rfl: 2 insulin aspart U-100 (NOVOLOG FLEXPEN U-100 INSULIN) 100 unit/mL inpn TAKE 1 UNIT FOR 5 GRAMS CARB UP TO 100 UNITS DAILY Disp: 15 Pen Rfl: 11 insulin glargine (BASAGLAR KWIKPEN U-100 INSULIN) 100 unit/mL (3 mL) inpn Inject 30 units AM and 30 units PM Disp: Rfl: Insulin [place], Disposable, (BD ULTRAFINE III MINI PEN) 31 gauge x 3/16 ndle use as directed 10 times daily Disp: 300 Each Rfl: 11 Insulin Syringe-Needle U-100 (BD INSULIN SYRINGE HALF UNIT) 0.3 mL 31 x 5/16 syrg use as directed Disp: 100 Syringe Rfl: 11 Lancets lancets Use as instructed Disp: 300 Each Rfl: 11 Omeprazole (PRILOSEC) 40 mg capsule Take 1 capsule by mouth once daily. Disp: 30 capsule Rfl: 1 No current facility-administered medications for this visit. REVIEW OF SYSTEMS General: no fever and no chills Skin: no rashes, pruritis or dry skin Cardiac: denies chest pain, heart palpitations or orthopnea Pulmonary: denies wheezing, productive cough or exertional dyspnea PHYSICAL EXAMINATION BP 131/80 (BP Site: Left Arm, BP Position: Sitting, BP Cuff Size: Regular Adult) Pulse 122 Ht 173 cm (5' 8.11) Wt 62.6 kg (138 lb) SpO2 97% BMI 20.92 kg/m2 Physical Exam Constitutional: He is oriented to person, place, and time and well-developed, well-nourished, and in no distress. No distress. HENT: Head: Normocephalic and atraumatic. Eyes: Right eye exhibits no discharge. Left eye exhibits no discharge. Neck: No thyromegaly present. Cardiovascular: Normal rate and regular rhythm. Pulmonary/Chest: Effort normal and breath sounds normal. Musculoskeletal: He exhibits no edema. Lymphadenopathy: He has no cervical adenopathy. Neurological: He is alert and oriented to person, place, and time. Skin: Skin is warm and dry. He is not diaphoretic. Psychiatric: Mood, memory, affect and judgment normal. DATA Creatinine Date Value Ref Range Status 01/16/2018 0.68 (L) 0.73 - 1.22 mg/dL Final Hemoglobin A1C (%) Date Value 01/16/2018 13.5 Hemoglobin A1C (POCT) (%) Date Value 05/18/2018 13.0 ) No components found for: URINEALBUMIN Cholesterol, Total (mg/dL) Date Value 11/15/2016 219 HDL Cholesterol (mg/dL) Date Value 11/15/2016 20 LDL Cholesterol (mg/dL) Date Value 11/15/2016 127 Triglyceride (mg/dL) Date Value 11/15/2016 360 IMPRESSION: Mr. Wang is a 17 year old male here for evaluation of DM Type 1 complicated by DKA, hypoglycemia RECOMMENDATIONS: (E10.65) Diabetes mellitus type 1, uncontrolled, without complications (HCC) (primary encounter diagnosis) Comment: Glycemic control remains above goal. Dexcom needs 90 days worth of blood glucose readings before they will approve. This was discussed with the patient. We discussed the importance of checking the sugar to determine the proper dose of insulin. He is having repeated episodes of DKA but still is not regularly monitoring his sugars. Plan: COMP METABOLIC PANEL, ALBUMIN/CREAT RATIO RND UR, LDL CHOLESTEROL DIR, TSH BLD Check sugar 4x per day for 90 days to obtain dexcom. Send them into us to fax to dexcom. Basaglar AM 34 units PM 34 units Novolog Breakfast 1 units per 5 grams carbs Lunch 1 units per 5 grams carbs Dinner 1 units per 5 grams carbs . Correction 1:40 for sugars over 180. Follow up in 2 months Have labs done within the next week. 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 Will work to improve glycemic control (E10.649) Hypoglycemia due to type 1 diabetes mellitus (HCC) Comment/Plan: he has not had any episodes lately. Kami Gamble APRN, HEAVY EQUIPMENT SALES MANAGER-C Endocrinology [facility] Medical Office [facility]/[address], [address] [place], [place] [address] Fax: BEDSIDE GLUCOSE Collected: 06/19/2018 Status: F Source: RIP 12:20 PM [facility] REPOSITORY TYPE CODE TESTS RESULT OUT OF REFERENCE UNITS RANGE LAB L501.080 70-110 mg/dL High BEDSIDE GLU 288 Result Comment: MANAGEMENT OF PATIENT CARE PER NURSING PROTOCOL Performed By: #### L501.080 #### [facility] Point of Care [address] [place] [address] DISCHARGE SUMMARY Observed: 06/19/2018 Status: F Source: RIP 9:50 AM [facility] REPOSITORY [facility] Medical Records Department [address] [place] [address] Discharge Summary 06/19/18 0946 MR#: [id number] Acct: [id number] Name: VAHID WANG Rep #: [id number] : 2000 17 From: Mei Polk PCP: Scott Braden MD Status: ADM MAGGIE Y Location: ICU ICU06-1 Discharge Date and Diagnosis Date of Admission: 06/18/18 Date of Discharge: 06/19/18 - Primary Discharge Diagnosis (1) DKA w/ Diabetes mellitus type I (2) Acute kidney injury, Secondary to acute presentation, #1 DKA (3) Hx Elevated Liver Enzymes (4) Anxiety and Depression, not on regimen (6) Recent Acute Sinusitis (7) GERD - Secondary Discharge Diagnosis Chronic Problems (Last Reviewed 03/20/18 @ 15:05 by Amanda Wilkinson) Anxiety and depression (Chronic) GERD (gastroesophageal reflux disease) (Chronic) Fatty liver (Chronic) Suicidal ideations (Chronic) DM I (diabetes mellitus, type I), uncontrolled (Chronic) Hospital Course and Treatment Operations: None Procedures: EKG Summary of Care Provided: The patient is a 17 y/o M w/ PMHx: Diabetes mellitus type I w/ serial admissions for DKA, Prior Noted Elevated Liver Enzymes of unclear etiology, Anxiety and Depression w/ prior suicidal ideation admissions following w/ Crisis Center who presented to the [facility] ED on 06/18/18 with complaint of elevated blood sugars despite insulin regimen noted to have been recently seen in the ED a couple days prior to this secondary to elevated blood sugars with recent diagnosis of sinus infection with poor oral intake. Patient with prolonged history of poor compliance however does note recent sinus infection treatment. Patient admitted to the ICU following initiation of insulin drip in the ED, serial BMPs followed with eventual anion gap closure this morning x2. Patient transitioned off insulin drip to subcu insulin with initiation of ADA diet, insulin sliding scale. Magnesium and phosphorus levels normal. Encouraged diet and insulin regimen compliance, nutrition consulted. HgbA1c ordered, pending at discharge. Transitioned from ICU to MS status. Admission BUN/Cr BUN/creatinine 21/1.21, prior baseline creatinine noted to be 0.7. Patient hydrated aggressively, repeat 06/19/18 BUN/Cr 11/0.79, resolved. Ongoing facial discomfort w/ palpation, restarted augmentin, encouraged continuation to completion and added flonase with continuation upon discharge. Requested he contact his Furnace Keeper in [place] and update to ascertain also if earlier appointment requested (has 1 month follow-up currently in place) in addition to follow- up with PCP within 3-5 days to review admission. - Physical Exam Vital Signs Temp Pulse Resp BP Pulse Ox 97.9 F 88 14 130/74 H 99 06/19/18 07:56 06/19/18 07:56 06/19/18 07:56 06/19/18 07:56 06/19/18 07:56 Oxygen Delivery Method Room Air Weight: 134 lb 4.184 oz Body Mass Index (BMI) 20.8 Finger Stick Blood Glucose 122 Intake and Output for Last 24 Hours Intake Total 1152.6 / 1152.6 Output Total 425 / 425 Balance 727.6 / 727.6 Laboratory Tests Past 24 Hrs WBC RBC Hgb Hct MCV MCH MCHC RDW RDW Differential WBC RBC Hgb Hct MCV MCH MCHC RDW RDW Differential Plt Count MPV Immature Gran % (Auto) Neut % (Auto) POC Glucose POC Glucose 122 H 178 H 150 H POC Glucose 113 H 124 H 118 H POC Glucose 103 162 H 111 H POC Glucose 103 156 H 168 H POC Glucose 180 H 286 H > 500 H* Discharge Activity: Return to Normal Activity May resume sexual activity in: No Restrictions Weight Bearing Status: Weight bearing as tolerated Call your doctor if you observe: Fever of 101 or Higher, Inability to urinate, Inability to have a bowel movement, Shortness of breath, Dizziness, Fainting spells, Chest pain, Uncontrolled pain, - - Unresolving facial pressure or worsened post-nasal drip. Home Medications: Medications to take at Discharge Insulin Glargine,Hum.rec.anlog [Basaglar Kwikpen U-100] 30 unit SQ BIDAC #1 insuln.pen 05/12/18 Insulin Lispro [Humalog KwikPen] 5 unit SC TIDAC #1 insuln.pen 05/12/18 Amox/Clavulanate Tablet [Augmentin Tablet] 875 mg PO BID tablet 06/19/18 Fluticasone 0.05% [Flonase Nasal [place]] 1 spray NASAL BID #1 bottle 06/19/18 Following Prescrptions Were Given to Patient: Fluticasone 0.05% [Flonase Nasal [place]] 1 spray NASAL BID #1 bottle Primary Care Physician: Scott Braden MD [Primary Care Provider] - Please follow up with your Primary Care Physician in: Follow- up within 3-5 days to review admission. Please Follow Up With: Furnace Keeper When: Contact office today to update re: admission, arrange earlier appointment. Patient Instructions: Using Injected Insulin, Types of Insulin, Healthy Meals for Diabetes, Diabetes: Understanding Carbohydrates, Understanding Your Sinuses, Causes of Sinusitis, Acute Sinusitis, Self-Care for Sinusitis, Diabetes and Your Child: Preventing Diabetic Ketoacidosis (DKA), Diabetes and Your Child: Sick Day Plan Disposition: Home Minutes spent on discharge:: 20 Patient Condition:: Fair Medical Necessity - Tobacco Use Smoking Status: Never smoker Meaningful Use Info Meaningful Use Diagnoses (Choose all that apply): None applicable Code Visit OBSV E AND M: 92507 Observation care discharge 06/19/18 0950 <Electronically signed by Mei Polk > Date Mei Polk Cosigner Signature (if applicable): Date CC: Scott Braden MD; Mei Polk Signed DISCHARGE INSTRUCTION Observed: 06/19/2018 Status: F Source: [place] 9:46 AM [facility] REPOSITORY [facility] Medical Records Department [address] [place] [address] Instructions for Home/Discharge Instructions 06/19/18 0911 MR#: [id number] Acct: [id number] Name: VAHID WANG Rep #: [id number] : 2000 17 From: Mei Polk PCP: Scott Braden MD Status: ADM MAGGIE - Discharge Diagnoses Current Active Problems: (1) DKA w/ Diabetes mellitus type I (2) Acute kidney injury, Secondary to acute presentation, #1 DKA (3) Hx Elevated Liver Enzymes (4) Anxiety and Depression, not on regimen (6) Recent Acute Sinusitis (7) GERD You will use the following diet at home:: Calorie/Carbohydrate Controlled (specify 1200, 1400, etc) - 2525-2469 ADA diet encouraged. Your food should be the consistency of: Regular Your liquids should be the consistency of: Regular/Thin Discharge Activity: Return to Normal Activity May resume sexual activity in: No Restrictions Weight Bearing Status: Weight bearing as tolerated Call your doctor if you observe: Fever of 101 or Higher, Inability to urinate, Inability to have a bowel movement, Shortness of breath, Dizziness, Fainting spells, Chest pain, Uncontrolled pain, - - Unresolving facial pressure or worsened post-nasal drip. Instructions: Using Injected Insulin, Types of Insulin, Healthy Meals for Diabetes, Diabetes: Understanding Carbohydrates, Diabetes and Your Child: Preventing Diabetic Ketoacidosis (DKA), Diabetes and Your Child: Sick Day Plan, Understanding Your Sinuses, Causes of Sinusitis, Acute Sinusitis, Self-Care for Sinusitis Additional Instructions: Please complete the augmentin script you recently started outpatient. Please concurrently start flonase and continue x 10 days. Additionally, may consider nettipot usage to assist w/ improvement. Allergies/Adverse Reactions: Allergies No Known Allergies Allergy (Verified 06/16/18 15:20) Medications to take at Discharge Insulin Glargine,Hum.rec.anlog [Basaglar Kwikpen U-100] 30 unit SQ BIDAC #1 insuln.pen 05/12/18 Insulin Lispro [Humalog KwikPen] 5 unit SC TIDAC #1 insuln.pen 05/12/18 Amox/Clavulanate Tablet [Augmentin Tablet] 875 mg PO BID tablet 06/19/18 Fluticasone 0.05% [Flonase Nasal [place]] 1 spray NASAL BID #1 bottle 06/19/18 The following prescriptions were given: Fluticasone 0.05% [Flonase Nasal [place]] 1 spray NASAL BID #1 bottle Primary Care Physician: Scott Braden MD [Primary Care Provider] - Please follow up with your Primary Care Physician in: Follow- up within 3-5 days to review admission. Test Results: Test results from this visit will be discussed in further detail at your follow-up appointment, if applicable. Please Follow Up With: Furnace Keeper When: Contact office today to update re: admission, arrange earlier appointment. Proposed Discharge Date: 06/19/18 06/19/18 0946 <Electronically signed by Mei Polk > Date Mei Polk CC: Scott Braden MD BEDSIDE GLUCOSE Collected: 06/19/2018 Status: F Source: RIP 7:49 AM [facility] REPOSITORY TYPE CODE TESTS RESULT OUT OF REFERENCE UNITS RANGE LAB L501.080 70-110 mg/dL High BEDSIDE GLU 122 Result Comment: MANAGEMENT OF PATIENT CARE PER NURSING PROTOCOL Performed By: #### L501.080 #### [facility] Point of Care [address] [place] [address] BEDSIDE GLUCOSE Collected: 06/19/2018 Status: F Source: RIP 6:24 AM [facility] REPOSITORY TYPE CODE TESTS RESULT OUT OF REFERENCE UNITS RANGE LAB L501.080 70-110 mg/dL High BEDSIDE GLU 178 Result Comment: MANAGEMENT OF PATIENT CARE PER NURSING PROTOCOL Performed By: #### L501.080 #### [facility] Point of Care [address] [place] [address] BEDSIDE GLUCOSE Collected: 06/19/2018 Status: F Source: RIP 5:53 AM [facility] REPOSITORY TYPE CODE TESTS RESULT OUT OF REFERENCE UNITS RANGE LAB L501.080 70-110 mg/dL High BEDSIDE GLU 150 Result Comment: MANAGEMENT OF PATIENT CARE PER NURSING PROTOCOL Performed By: #### L501.080 #### [facility] Point of Care [address] [place] [address] BEDSIDE GLUCOSE Collected: 06/19/2018 Status: F Source: [place] 4:26 AM [facility] REPOSITORY TYPE CODE TESTS RESULT OUT OF REFERENCE UNITS RANGE LAB L501.080 70-110 mg/dL High BEDSIDE GLU 113 Result Comment: MANAGEMENT OF PATIENT CARE PER NURSING PROTOCOL Performed By: #### L501.080 #### [facility] Point of Care [address] [facility] [place] [address] CBC W/DIFF, AUTOMATED Collected: 06/19/2018 Status: F Source: RIP 4:25 AM [facility] REPOSITORY TYPE CODE TESTS RESULT OUT OF RANGE REFERENCE UNITS LAB L100.1000 4.4-11.0 K/mm3 Normal WBC 7.1 LAB L100.1200 4.6-6.2 M/mm3 Low RBC 4.57 LAB L100.1300 13.0-16.5 g/dl Normal HGB 14.4 LAB L100.1400 40-54 % Normal HCT 41.1 LAB L100.1500 80-94 fL Normal MCV 89.9 LAB L100.1600 27.0-32.0 pg Normal MCH 31.5 LAB L100.1700 32-36 g/gl Normal MCHC 35.0 LAB L100.1810 11.6-14.6 % Normal RDW CV 11.9 LAB L100.1820 35.1-43.9 fl Normal RDW SD 38.5 LAB L100.1900 150-450 K/mm3 Normal PLT 226 LAB L100.2000 6.2-12.0 fl Normal MPV 9.0 LAB L100.2100 47-70 % Normal NEUT% 55.3 LAB L100.2200 19-41 % Normal LY% 32.3 LAB L100.2300 0-10 % Normal MONO% 9.4 LAB L100.2400 0-5 % Normal EO% 1.7 LAB L100.2500 0-1 % Normal BASO% 0.3 LAB L100.2550 0.0-0.9 % High IM GRAN % 1.000 Result Comment: IG% - Immature Granulocytes (promyelocytes, myelocytes and metamyelocytes) > 1% indicates that a LEFT SHIFT is Present. LAB L100.2620 2.0-7.7 X10 3/uL Normal Absolute Neut 3.9 LAB L100.2720 0.83-4.51 X10 3/ul Normal Absolute Lymph 2.29 Performed By: #### L100.0100 #### [facility] [address] [place], [address] BASIC METABOLIC Collected: 06/19/2018 Status: F Source: [place] PROFILE ([facility]) 4:25 AM [facility] REPOSITORY TYPE CODE TESTS RESULT OUT OF RANGE REFERENCE UNITS LAB L501.0100 74-106 mg/dL High GLU 125 Result Comment: Fasting Glucose result from 100 to 125 mg/dL suggests IMPAIRED HOMEOSTASIS per A.D.A. criteria. Please note revised GLUCOSE reference range effective 2017. LAB L501.1000 7-18 mg/dL Normal BUN 11 LAB L501.1100 0.70-1.30 mg/dL Normal CREAT,SERUM 0.79 Result Comment: The validity of the calculated GFR AND GFRAA in patients over 70 years has not been determined. Clinical correlation is essential. LAB L501.1110 >60 mL/min Normal EST GFR 134 Result Comment: Non- GFR Calc LAB L501.1115 >60 mL/min Normal EST GFR - AA 162 Result Comment: GFR Calc LAB L501.1255 ml/min Normal Estimated CRCL 128.28 LAB L501.1300 10-20 RATIO BUN/CRE Normal 13.9 LAB L501.2200 8.5-10 mg/dL Low .1 CA 8.2 LAB L501.5300 136-14 mmol/L 5 NA Normal 143 LAB L501.5600 3.5-5. mmol/L Low 1 K 3.4 LAB L501.5900 98-107 mmol/L High CL 108 LAB L501.6100 21.0-3 mmol/L 2.0 CO2 Normal 22.0 LAB L501.6200 5-15 GAP Normal 13 Performed By: #### L500.2500 #### [facility] [address] [place], [address] MAGNESIUM Collected: 06/19/2018 Status: F Source: [place] 4:25 AM [facility] REPOSITORY Order Comment: Order Date: 06/19/18 TYPE CODE TESTS RESULT OUT OF RANGE REFERENCE UNITS LAB L501.5200 1.6-2.6 mg/dL Normal MG 1.7 Performed By: #### L501.5200, L501.2300 #### [facility] [address] [place], [address] PHOSPHORUS Collected: 06/19/2018 Status: F Source: [place] 4:25 AM [facility] REPOSITORY Order Comment: Order Date: 06/19/18 TYPE CODE TESTS RESULT OUT OF RANGE REFERENCE UNITS LAB L501.2300 2.5-4.9 mg/dL Normal PHOS 2.8 Performed By: #### L501.5200, L501.2300 #### [facility] [address] [place], [address] LIVER PROFILE Collected: 06/19/2018 Status: F Source: [place] 4:25 AM [facility] REPOSITORY TYPE CODE TESTS RESULT OUT OF RANGE REFERENCE UNITS LAB L501.1500 6.4-8.2 g/dL Low T PROT 5.9 LAB L501.1800 3.2-5.0 g/dL Low ALB 2.8 LAB L501.1950 2.2-4.2 g/dL Normal GLOB 3.1 LAB L501.4100 15-37 U/L Normal AST 37 LAB L501.4305 45-117 U/L Normal ALK P 110 LAB L501.4405 16-61 U/L Normal ALT 44 LAB L501.4600 0.20-1.00 mg/dL Normal T BILI 0.50 LAB L501.4700 0.00-0.30 mg/dL Normal D BILI 0.11 Performed By: #### L500.3400 #### [facility] [address] [facility] [address] HEMOGLOBIN A1C Collected: 06/19/2018 Status: F Source: [place] 4:25 AM [facility] REPOSITORY TYPE CODE TESTS RESULT OUT OF RANGE REFERENCE UNITS LAB L501.9985 4.2-6.3 % High HGB A1C 12.3 Performed By: #### L501.9985 #### [facility] [address] [facility] [address] BEDSIDE GLUCOSE Collected: 06/19/2018 Status: F Source: RIP 3:26 AM [facility] REPOSITORY TYPE CODE TESTS RESULT OUT OF REFERENCE UNITS RANGE LAB L501.080 70-110 mg/dL High BEDSIDE GLU 124 Result Comment: MANAGEMENT OF PATIENT CARE PER NURSING PROTOCOL Performed By: #### L501.080 #### [facility] Point of Care [address] [place] [address] BEDSIDE GLUCOSE Collected: 06/19/2018 Status: F Source: RIP 2:35 AM [facility] REPOSITORY TYPE CODE TESTS RESULT OUT OF REFERENCE UNITS RANGE LAB L501.080 70-110 mg/dL High BEDSIDE GLU 118 Result Comment: MANAGEMENT OF PATIENT CARE PER NURSING PROTOCOL Performed By: #### L501.080 #### [facility] Point of Care [address] [place] [address] BEDSIDE GLUCOSE Collected: 06/19/2018 Status: F Source: RIP 1:32 AM [facility] REPOSITORY TYPE CODE TESTS RESULT OUT OF RANGE REFERENCE UNITS LAB L501.080 70-110 mg/dL Normal BEDSIDE GLU 103 Result Comment: MANAGEMENT OF PATIENT CARE PER NURSING PROTOCOL Performed By: #### L501.080 #### [facility] Point of Care [address] [place] [address] BEDSIDE GLUCOSE Collected: 06/19/2018 Status: F Source: RIP 12:38 AM [facility] REPOSITORY TYPE CODE TESTS RESULT OUT OF REFERENCE UNITS RANGE LAB L501.080 70-110 mg/dL High BEDSIDE GLU 162 Result Comment: MANAGEMENT OF PATIENT CARE PER NURSING PROTOCOL Performed By: #### L501.080 #### [facility] Point of Care [address] [place], [place] [address] BASIC METABOLIC Collected: 06/19/2018 Status: F Source: RIP PROFILE (BMP) 12:35 AM [facility] REPOSITORY Order Comment: Comments: Call MD with results STAT TYPE CODE TESTS RESULT OUT OF RANGE REFERENCE UNITS LAB L501.0100 74-106 mg/dL High GLU 151 Result Comment: Fasting Glucose result greater than or equal to 126 mg/dL suggests DIABETES MELLITUS per A.D.A. criteria. Please note revised GLUCOSE reference range effective 2017. LAB L501.1000 7-18 mg/dL Normal BUN 13 LAB L501.1100 0.70-1.30 mg/dL Normal CREAT,SERUM 0.73 Result Comment: The validity of the calculated GFR AND GFRAA in patients over 70 years has not been determined. Clinical correlation is essential. LAB L501.1110 >60 mL/min Normal EST GFR 146 Result Comment: Non- GFR Calc LAB L501.1115 >60 mL/min Normal EST GFR - AA 176 Result Comment: GFR Calc LAB L501.1255 ml/min Normal Estimated CRCL 138.82 LAB L501.1300 10-20 RATIO BUN/CRE Normal 17.7 LAB L501.2200 8.5-10 mg/dL Low .1 CA 7.9 LAB L501.5300 136-14 mmol/L 5 NA Normal 141 LAB L501.5600 3.5-5. mmol/L Low 1 K 3.3 LAB L501.5900 98-107 mmol/L High CL 109 LAB L501.6100 21.0-3 mmol/L 2.0 CO2 Normal 21.0 LAB L501.6200 5-15 GAP Normal 11 Performed By: #### L500.2500 #### [facility] [address] [place], [place], [address] BEDSIDE GLUCOSE Collected: 06/18/2018 Status: F Source: RIP 11:35 PM [facility] REPOSITORY TYPE CODE TESTS RESULT OUT OF REFERENCE UNITS RANGE LAB L501.080 70-110 mg/dL High BEDSIDE GLU 111 Result Comment: MANAGEMENT OF PATIENT CARE PER NURSING PROTOCOL Performed By: #### L501.080 #### [facility] Point of Care [address] [place] [address] EMERGENCY DEPARTMENT Observed: 06/18/2018 Status: F Source: RIP SUMMARY 11:27 PM [facility] REPOSITORY [facility] Medical Records Department [address] [place] [address] Emergency Department Summary 06/18/18 1910 MR#: [id number] Acct: [id number] Name: VAHID WANG Rep #: [id number] : 2000 17 From: Charles Cortez MD PCP: Scott Braden MD Status: ADM MAGGIE - ER Visit Summary Date of Service: 06/18/18 Chief Complaint: Elevated blood sugar History of Present Illness: The patient is a 17 M treatments and benign diabetes and multiple episodes of DKA. Patient was in the emergency department last several days with elevated blood sugar. States he is having diarrhea. Denies any vomiting. No fever. Physical Examination: Young male no acute distress. Vital signs are stable afebrile. Does not look septic or toxic. HEENT exam he does have dry mucous membranes. Neck nontender no lymphadenopathy. Lungs clear to auscultation bilaterally. Heart regular rhythm no murmur. Rate approximately 130. Abdomen is soft. Nondistended. Normal bowel sounds. No peritoneal signs. Patient is moving all 4 extremities. Skin unremarkable other than pale. Back nontender. Neurologically is awake alert with no focal motor deficits. Test Results: Count of 10. H AND H is 17 and 50. Sodium 135. Potassium 3.4 anion gap is 26 CO2 is 11 blood sugar 588. Creatinine 1.2. Serum ketones are pending. Emergency Department Course and Treatment: Patient treated with 2 L normal saline. Started on insulin drip. Treatment Plan: Spoke to the hospitalist for an ICU admission. Disposition: Admission Impression: DKA This note was generated with Poxel dictation software. It may contain incorrect words, spelling, and punctuation that were not noted in review of the chart prior to signing ED Disposition - Plan for ED Patient: Chief Complaint: Hyperglycemia Referrals: Scott Braden MD [Primary Care Provider] - What to do if you have Problems For any increased pain, shortness of breath, bleeding, nausea or vomiting, chest pain, or any unexpected problems, contact your Primary Care Provider. Call [facility] ([phone]) or report to the closest Emergency Room. Call 911 if necessary. 06/18/18 6357 <Electronically signed by Chrales Cortez MD> Date Charles Cortez MD Cosigner Signature (If Indicated): Date CC: Scott Braden MD BEDSIDE GLUCOSE Collected: 06/18/2018 Status: F Source: RIP 10:30 PM [facility] REPOSITORY TYPE CODE TESTS RESULT OUT OF RANGE REFERENCE UNITS LAB L501.080 70-110 mg/dL Normal BEDSIDE GLU 103 Result Comment: MANAGEMENT OF PATIENT CARE PER NURSING PROTOCOL Performed By: #### L501.080 #### [facility] Point of Care [address] [place] [address] BEDSIDE GLUCOSE Collected: 06/18/2018 Status: F Source: RIP 9:27 PM [facility] REPOSITORY TYPE CODE TESTS RESULT OUT OF REFERENCE UNITS RANGE LAB L501.080 70-110 mg/dL High BEDSIDE GLU 156 Result Comment: MANAGEMENT OF PATIENT CARE PER NURSING PROTOCOL Performed By: #### L501.080 #### [facility] Point of Care [address] [place] [address] HISTORY AND PHYSICAL Observed: 06/18/2018 Status: F Source: RIP EXAM 8:27 PM [facility] REPOSITORY [facility] Medical Records Department [address] [place] [address] History and Physical 06/18/18 1934 MR#: [id number] Acct: [id number] Name: VAHID WANG Rep #: [id number] : 2000 17 From: Marianne Hancock MD PCP: Scott Braden MD Status: ADM MAGGIE Y Location: ICU ICU06-1 History of Present Illness Date of Admission: 06/18/18 Chief Complaint: Elevated blood sugar The patient is a 17 year old M with a known history of type 1 diabetes mellitus and multiple previous episodes of DKA. He was admitted in the ED with a complaint of elevated blood sugar despite taking his insulin. He was recently seen in the ED a few days ago with elevated blood sugar was managed for sinus infection he states he has been compliant with his medications but has not been eating or drinking very well. He denied any fever or chills, but admitted to a cough which is productive of greenish sputum. He had mild pleuritic chest pain with coughing. Denies any abdominal pain, diarrhea vomiting. Review of systems otherwise negative. In the ED, vitals were significant for pulse rate of 129 but otherwise stable. Chemistry shows sodium of 135 and potassium of 3.4 blood sugar 588, bicarb of 11 and anion gap of 26. CBC showed no leukocytosis and hemoglobin of 17.4. Was started on insulin drip and has been admitted to be managed for DKA. [] Past Medical History Past Medical History (Chronic Problems): Chronic Problems (Last Reviewed 03/20/18 @ 15:05 by Amanda Wilkinson) Anxiety and depression (Chronic) GERD (gastroesophageal reflux disease) (Chronic) Fatty liver (Chronic) Suicidal ideations (Chronic) DM I (diabetes mellitus, type I), uncontrolled (Chronic) Medical History: Medical History (Last Reviewed 03/20/18 @ 15:05 by Amanda Wilkinson) Anxiety disorder F41.9 Back problem M53.9 Bone fracture T14.8XXA Diabetes type 1, uncontrolled E10.65 Dx : age 2 Last exacerbation : DKA : 01/31 Hypoglycemic episode : never ER visit : 01/31 Hearing problem H91.90 Liver disease K76.9 Seizure R56.9 Vision problem H54.7 Allergies No Known Allergies Allergy (Verified 06/16/18 15:20) Home Medications: Ambulatory Orders Medication Instructions Recorded Surgical History: Surgical History (Last Reviewed 03/20/18 @ 15:05 by Amanda Wilkinson) S/p bilateral myringotomy with tube placement Z96.22 Surgical History: - - BL ear tubes. Psychiatric History: Anxiety, Depression, Prior suicide attempt Lives: With Family Smoking Status: Never smoker - *Family History Maternal Family History: Family History (Last Reviewed 03/20/18 @ 15:05 by Amanda Wilkinson) Mother Kidney disease History Items: Heart Disease, Renal Disease Paternal Family History: Family History (Last Reviewed 03/20/18 @ 15:05 by Amadna Wilkinson) Mother Kidney disease History Items: Heart Disease, - - Paternal family males w/ frequent hearing disorder. Review of Systems Constitutional: Denies: Chills, Fever, Malaise, Weakness, Weight Change, Fatigue HEENT: Denies: Head Aches, Sinus Congestion, Sinus Drainage Cardiovascular: Denies: Chest Pain, Palpitations Respiratory: Reports: Cough, Sputum production. Denies: Shortness of Breath, Shortness of breath at rest, Shortness of breath upon exertion Gastrointestinal: Denies: Abdominal Pain, Nausea, Vomiting Genitourinary: Denies: Dysuria Musculoskeletal: Denies: Joint Pain, Joint Tenderness Skin: Denies: Rash, Wounds Neurological: Denies: Numbness, Tingling, Focal weakness Psychiatric: Denies: Anxiety, Depression, Homicidal Ideations, Suicidal Ideations Hematologic/ Lymphatic: Denies: Easy Bruising, Easy Bleeding VTE Information - Inpt Only VTE Present on Admission: No VTE Pharm Prophylaxis ordered?: Yes - Physical Exam General: Alert, Oriented x3, Cooperative, No apparent distress HEENT: Atraumatic, PERRLA, EOMI, Normocephalic Oral: Moist Mucosa Neck: Supple, No JVD, Negative Carotid Bruits Lungs: Clear to auscultation, Normal air movement Cardiovascular: Regular rate, Regular Rhythm, Normal S1, Normal S2, No murmurs Abdomen: Bowel Sounds Present, Soft, Tender - mild generalised tenderness Extremities: No clubbing, No cyanosis, No edema, Capillary Refill Less than 3 Seconds Skin: No rashes, No breakdown Musculoskeletal: No Tenderness to Palpation of Joints or Extremities Lymphatic: No Cervical, Supraclavicular, or Inguinal Adenopathy Neurological: Cranial nerves II-XII grossly intact Psych/Mental Status: Normal Affect, Appropriate, Alert and oriented to time, place, person, mood and affect Vital Signs Temp Pulse Resp BP Pulse Ox 97.5 F L 129 H 16 134/96 H 99 06/18/18 16:42 06/18/18 16:42 06/18/18 16:42 06/18/18 16:42 06/18/18 16:42 Oxygen Delivery Method Room Air Weight: 134 lb Body Mass Index (BMI) 20.9 Finger Stick Blood Glucose 107 Laboratory Tests Past 24 Hrs WBC 10.0 RBC 5.46 Hgb 17.4 H Hct 50.7 MCV 92.9 MCH 31.9 MCHC 34.3 POC Glucose POC Glucose 286 H > 500 H* Assessment/Plan All Active Problems (Last Reviewed 03/20/18 @ 15:05 by Amanda Wilkinson) DKA, type 1 (Acute) DKA (diabetic ketoacidoses) (Acute) 17-year-old male with known history of abuse mellitus presenting with DKA 1. DKA likely due to noncompliance * admitted with blood sugar of 588 and anion gap of 24, as well as bicarb of 11 * says he has been compliant with his meds, but he has had numerous admissions for DKA due to noncompliance, leading me to think this may be the reason now also * CBC showed no leukocytosis. * Admit to ICU * blood sugar at time of review was down to 288. Will continue insulin drip until gap closes and then will transition to subcut insulin at his current home dose of basaglar 30IU bid * keep NPO whilst on insulin drip * check BMP q4hrs * will hydrate with IVF NS with 40mEQ of KCl at 150cc/hr; swich to IVF D5 1/2 NS when blood sugar falls to <250 2. Hyponatremia: likely due to hyperglycemia. Corrected for blood sugar, sodium is 143. Will monitor 3. Hypokalemia: K is 3.4. Will replace and monitor. On IVF NS with KCl DVT prophylaxis: heparin GI prophylaxis: famotidine Code Visit Inpatient E AND M: 82060 Init Hosp L3 06/18/182026 <Electronically signed by Marianne Hancock MD> Date Marianne Hancock MD Cosigner Signature: Date (if applicable) CC: Scott Braden MD; Marianne Hancock MD Signed BEDSIDE GLUCOSE Collected: 06/18/2018 Status: F Source: RIP 8:27 PM [facility] REPOSITORY TYPE CODE TESTS RESULT OUT OF REFERENCE UNITS RANGE LAB L501.080 70-110 mg/dL High BEDSIDE GLU 168 Result Comment: MANAGEMENT OF PATIENT CARE PER NURSING PROTOCOL Performed By: #### L501.080 #### [facility] Point of Care [address] [place], [place] [address] BASIC METABOLIC Collected: 06/18/2018 Status: F Source: RIP PROFILE (BMP) 8:20 PM [facility] REPOSITORY Order Comment: Comments: Call MD with results STAT TYPE CODE TESTS RESULT OUT OF RANGE REFERENCE UNITS LAB L501.0100 74-106 mg/dL High GLU 176 Result Comment: Fasting Glucose result greater than or equal to 126 mg/dL suggests DIABETES MELLITUS per A.D.A. criteria. Please note revised GLUCOSE reference range effective 2017. LAB L501.1000 7-18 mg/dL Normal BUN 16 LAB L501.1100 0.70-1.30 mg/dL Normal CREAT,SERUM 1.07 Result Comment: The validity of the calculated GFR AND GFRAA in patients over 70 years has not been determined. Clinical correlation is essential. LAB L501.1110 >60 mL/min Normal EST GFR 94 Result Comment: Non- GFR Calc LAB L501.1115 >60 mL/min Normal EST GFR - AA 114 Result Comment: GFR Calc LAB L501.1255 ml/min Normal Estimated CRCL 94.71 LAB L501.1300 10-20 RATIO Normal BUN/CRE 15.0 LAB L501.2200 8.5-10 mg/dL Low .1 CA 8.4 LAB L501.5300 136-14 mmol/L Normal 5 NA 143 LAB L501.5600 3.5-5. mmol/L Low 1 K 3.4 LAB L501.5900 98-107 mmol/L High CL 109 LAB L501.6100 21.0-3 mmol/L Low 2.0 CO2 18.0 LAB L501.6200 5-15 High GAP 16 Performed By: #### L500.2500 #### [facility] [address] [place], [place], [address] BEDSIDE GLUCOSE Collected: 06/18/2018 Status: F Source: RIP 8:05 PM [facility] REPOSITORY TYPE CODE TESTS RESULT OUT OF REFERENCE UNITS RANGE LAB L501.080 70-110 mg/dL High BEDSIDE GLU 180 Result Comment: MANAGEMENT OF PATIENT CARE PER NURSING PROTOCOL Performed By: #### L501.080 #### [facility] Point of Care [address] [place], [place] [address] BEDSIDE GLUCOSE Collected: 06/18/2018 Status: F Source: RIP 7:10 PM [facility] REPOSITORY TYPE CODE TESTS RESULT OUT OF REFERENCE UNITS RANGE LAB L501.080 70-110 mg/dL High BEDSIDE GLU 286 Result Comment: MANAGEMENT OF PATIENT CARE PER NURSING PROTOCOL Performed By: #### L501.080 #### [facility] Point of Care [address] [place] [address] CBC W/DIFF, AUTOMATED Collected: 06/18/2018 Status: F Source: RIP 5:07 PM [facility] REPOSITORY TYPE CODE TESTS RESULT OUT OF RANGE REFERENCE UNITS LAB L100.1000 4.4-11.0 K/mm3 Normal WBC 10.0 LAB L100.1200 4.6-6.2 M/mm3 Normal RBC 5.46 LAB L100.1300 13.0-16.5 g/dl High HGB 17.4 LAB L100.1400 40-54 % Normal HCT 50.7 LAB L100.1500 80-94 fL Normal MCV 92.9 LAB L100.1600 27.0-32.0 pg Normal MCH 31.9 LAB L100.1700 32-36 g/gl Normal MCHC 34.3 LAB L100.1810 11.6-14.6 % Normal RDW CV 12.4 LAB L100.1820 35.1-43.9 fl Normal RDW SD 41.7 LAB L100.1900 150-450 K/mm3 Normal PLT 285 LAB L100.2000 6.2-12.0 fl Normal MPV 9.7 LAB L100.2100 47-70 % Normal NEUT% 70.0 LAB L100.2200 19-41 % Normal LY% 24.3 LAB L100.2300 0-10 % Normal MONO% 3.6 LAB L100.2400 0-5 % Normal EO% 0.9 LAB L100.2500 0-1 % Normal BASO% 0.3 LAB L100.2550 0.0-0.9 % Normal IM GRAN % 0.900 Result Comment: IG% - Immature Granulocytes (promyelocytes, myelocytes and metamyelocytes) > 1% indicates that a LEFT SHIFT is Present. LAB L100.2620 2.0-7.7 X10 3/uL Normal Absolute Neut 7.0 LAB L100.2720 0.83-4.51 X10 3/ul Normal Absolute Lymph 2.42 Performed By: #### L100.0100 #### [facility] [address] [place], [place], [address] BASIC METABOLIC Collected: 06/18/2018 Status: F Source: [place] PROFILE (BMP) 5:07 PM [facility] REPOSITORY TYPE CODE TESTS RESULT OUT OF RANGE REFERENCE UNITS LAB L501.0100 74-106 mg/dL High alert GLU 588 Result Comment: CALLED [facility] ED WITH CRITICAL GLUC BY MAF 06-18-18 AT 1747PM READ BACK BY SAME Glucose result greater than or equal to 200 mg/dL suggests DIABETES MELLITUS per A.D.A. criteria. Please note revised GLUCOSE reference range effective 2017. LAB L501.1000 7-18 mg/dL High BUN 21 LAB L501.1100 0.70-1.30 mg/dL Normal CREAT,SERUM 1.21 Result Comment: The validity of the calculated GFR AND GFRAA in patients over 70 years has not been determined. Clinical correlation is essential. LAB L501.1110 >60 mL/min Normal EST GFR 82 Result Comment: Non- GFR Calc LAB L501.1115 >60 mL/min Normal EST GFR - AA 99 Result Comment: GFR Calc LAB L501.1255 ml/min Normal Estimated CRCL 84.42 LAB L501.1300 10-20 RATIO Normal BUN/CRE 17.4 LAB L501.2200 8.5-10 mg/dL Normal .1 CA 9.3 LAB L501.5300 136-14 mmol/L Low 5 NA 135 LAB L501.5600 3.5-5. mmol/L Low 1 K 3.4 Result Comment: Slight Hemolysis, Result may be falsely increased. LAB L501.5900 98-107 mmol/L Normal CL 98 LAB L501.6100 21.0-32.0 mmol/L Low CO2 11.0 LAB L501.6200 5-15 High GAP 26 Performed By: #### L500.2500 #### [facility] [address] [place], [address] BEDSIDE GLUCOSE Collected: 06/18/2018 Status: F Source: [place] 4:53 PM [facility] REPOSITORY TYPE CODE TESTS RESULT OUT OF REFERENCE UNITS RANGE LAB L501.080 70-110 mg/dL High alert BEDSIDE GLU > 500 Result Comment: Dr Delvalle Followed MANAGEMENT OF PATIENT CARE PER NURSING PROTOCOL Performed By: #### L501.080 #### [facility] Point of Care [address] [facility] [place] [address] DISCHARGE INSTRUCTION Observed: 06/16/2018 Status: F Source: [place] 9:51 PM [facility] REPOSITORY [facility] Medical Records Department [address] [place] [address] Discharge Instruction 06/16/18 1706 MR#: [id number] Acct: [id number] Name: VAHID WANG Rep #: [id number] : 2000 17 From: Charles Cortez MD PCP: Scott Braden MD Status: DEP ER ED Disposition - Plan for ED Patient: Disposition: Home or Assisted Living Chief Complaint: Hyperglycemia Instructions: ED Hyperglycemia Diabetic Referrals: Scott Braden MD [Primary Care Provider] - 3-5 Days if not improving Additional Instructions: Watch blood sugars very closely. Return to the ER if you are feeling worse or your blood sugars are consistently over 400. Plenty of water and rest. What to do if you have Problems For any increased pain, shortness of breath, bleeding, nausea or vomiting, chest pain, or any unexpected problems, contact your Primary Care Provider. Call [facility] ([phone]) or report to the closest Emergency Room. Call 911 if necessary. 06/16/18 7311 <Electronically signed by Charles Cortez MD> Date Charles Cortez MD Cosigner Signature (If Indicated): Date CC: Scott Braden MD EMERGENCY DEPARTMENT Observed: 06/16/2018 Status: F Source: [place] SUMMARY 9:51 PM [facility] REPOSITORY [facility] Medical Records Department [address] [place] [address] Emergency Department Summary 06/16/18 1546 MR#: [id number] Acct: [id number] Name: VAHID WANG Rep #: [id number] : 2000 17 From: Charles Cortez MD PCP: Scott Braden MD Status: DEP ER - ER Visit Summary Date of Service: 06/16/18 Chief Complaint: Elevated blood sugar History of Present Illness: The patient is a 17 M [place]. Prior DKA. States he just been started on antibiotics for a sinus infection but addition. Yesterday his blood sugars are running between 180 and 250. Today his blood sugars consistently been running above 400. He does not feel like he is in DKA. He denies any nausea or vomiting. He has had diarrhea. He denies any fever. No dysuria. Physical Examination: Well-appearing young male. Vital signs are stable. Afebrile. No distress. H EENT exam unremarkable. Moist mucous membranes. Neck nontender. Lungs clear to auscultation bilaterally. Heart regular rhythm no murmur. Abdomen soft nontender. Moving all 4 extremities. Neurovascularly intact. Neurologically is awake and alert with no focal motor deficits. Test Results: BMP shows elevated anion gap of 20. CO2 15. Potassium 3.3. Glucose of 284. Normal BUN and creatinine. This potentially could be early DKA but clinically looks well and is not having any other symptoms consistent with DKA. Even if it is I think with IV fluids and the insulin the patient will be well enough to be discharged home. Emergency Department Course and Treatment: Patient treated with 1 L normal saline and 10 units subcu of insulin. On repeat exam patient is doing well. His repeat BGT is 220s. He will be observed for period of time a second blood sugar will be rechecked and if he is doing well be discharged to home. Treatment Plan: Fluids and rest. Watch his blood sugars closely. Return if feeling worse. Disposition: Discharge Impression: Acute hyperglycemia History of insulin-dependent diabetes This note was generated with Poxel dictation software. It may contain incorrect words, spelling, and punctuation that were not noted in review of the chart prior to signing ED Disposition - Plan for ED Patient: Chief Complaint: Hyperglycemia Referrals: Scott Braden MD [Primary Care Provider] - What to do if you have Problems For any increased pain, shortness of breath, bleeding, nausea or vomiting, chest pain, or any unexpected problems, contact your Primary Care Provider. Call [facility] ([phone]) or report to the closest Emergency Room. Call 911 if necessary. 06/16/181 <Electronically signed by Charles Cortez MD> Date Charles Cortez MD Cosigner Signature (If Indicated): Date CC: Scott Braden MD BEDSIDE GLUCOSE Collected: 06/16/2018 Status: F Source: RIP 6:34 PM [facility] REPOSITORY TYPE CODE TESTS RESULT OUT OF REFERENCE UNITS RANGE LAB L501.080 70-110 mg/dL High BEDSIDE GLU 115 Result Comment: MANAGEMENT OF PATIENT CARE PER NURSING PROTOCOL Performed By: #### L501.080 #### [facility] Point of Care [address] [place] [address] BEDSIDE GLUCOSE Collected: 06/16/2018 Status: F Source: RIP 6:07 PM [facility] REPOSITORY TYPE CODE TESTS RESULT OUT OF RANGE REFERENCE UNITS LAB L501.080 70-110 mg/dL Normal BEDSIDE GLU 107 Result Comment: MANAGEMENT OF PATIENT CARE PER NURSING PROTOCOL Performed By: #### L501.080 #### [facility] Point of Care [address] [place] [address] BEDSIDE GLUCOSE Collected: 06/16/2018 Status: F Source: RIP 4:45 PM [facility] REPOSITORY TYPE CODE TESTS RESULT OUT OF REFERENCE UNITS RANGE LAB L501.080 70-110 mg/dL High BEDSIDE GLU 229 Result Comment: MANAGEMENT OF PATIENT CARE PER NURSING PROTOCOL Performed By: #### L501.080 #### [facility] Point of Care [address] [place] [address] BASIC METABOLIC Collected: 06/16/2018 Status: F Source: RIP PROFILE (BMP) 4:21 PM [facility] REPOSITORY TYPE CODE TESTS RESULT OUT OF RANGE REFERENCE UNITS LAB L501.0100 74-106 mg/dL High GLU 284 Result Comment: Glucose result greater than or equal to 200 mg/dL suggests DIABETES MELLITUS per A.D.A. criteria. Please note revised GLUCOSE reference range effective 2017. LAB L501.1000 7-18 mg/dL Normal BUN 17 LAB L501.1100 0.70-1.30 mg/dL Normal CREAT,SERUM 1.16 Result Comment: The validity of the calculated GFR AND GFRAA in patients over 70 years has not been determined. Clinical correlation is essential. LAB L501.1110 >60 mL/min Normal EST GFR 86 Result Comment: Non- GFR Calc LAB L501.1115 >60 mL/min Normal EST GFR - AA 104 Result Comment: GFR Calc LAB L501.1255 ml/min Normal Estimated CRCL 87.36 LAB L501.1300 10-20 RATIO Normal BUN/CRE 14.7 LAB L501.2200 8.5-10 mg/dL Normal .1 CA 9.1 LAB L501.5300 136-14 mmol/L Normal 5 NA 141 LAB L501.5600 3.5-5. mmol/L Low 1 K 3.3 Result Comment: Slight Hemolysis, Result may be falsely increased. LAB L501.5900 98-107 mmol/L Normal CL 106 LAB L501.6100 21.0-32.0 mmol/L Low CO2 15.0 LAB L501.6200 5-15 High GAP 20 Performed By: #### L500.2500 #### [facility] [address] [place], [address] BEDSIDE GLUCOSE Collected: 06/16/2018 Status: F Source: RIP 3:27 PM [facility] REPOSITORY TYPE CODE TESTS RESULT OUT OF REFERENCE UNITS RANGE LAB L501.080 70-110 mg/dL High BEDSIDE GLU 370 Result Comment: MANAGEMENT OF PATIENT CARE PER NURSING PROTOCOL Performed By: #### L501.080 #### [facility] Point [place] [address] CNOV Observed: 06/15/2018 Status: COMPLETED Source: ARTHUR 1:15 PM [facility] REPOSITORY Office Visit (PEDSWS) VAHID WANG ([id number]) 2000 M Date Time Provider Department 06/15/18 1:15 PM SCOTT BRADEN PEDSWS During your visit today, we recorded the following information about you: Temperature Pulse Respiration Blood pressure 97.2 degrees 88/minute 20/minute 106/60 Weight Height 60.3 kg 1.702 m Scott Braden MD 06/15/2018 2:35 PM Signed Patient presents with: Nasal Congestion: 3 days, also had drainage from eyes. States he has dark green nasal drainage. Also has sore throat SUBJECTIVE: Vahid Wang is a 17 year old male who is here for a chief complaint of cold symptoms for the past 3, 4 day(s). Symptoms include congestion, rhinorrhea purulent, bloody, conjunctival discharge , pharyngitis, cough and sinus pain maxillary. Had runny nose for several weeks prior then abruptly worsened. Fluid intake has been slightly decreased. Denies fever, vomiting and diarrhea. Home treatment: OTC cold meds Sick contacts: family members PHM: IMPORTED PAST MEDICAL HISTORY Diagnosis Date - Attention deficit disorder with hyperactivity(314.01) - Conduct disorder, childhood onset type - Foot fracture, right growth plate involved - Fracture of clavicle, right, closed 2016 - Generalized convulsive epilepsy without mention of intractable epilepsy - Other abnormal heart sounds normal echocardiogram. Holter monitor that - Right wrist fracture - Sensorineural hearing loss, unspecified - Type I (juvenile type) diabetes mellitus without mention of complication, not stated as uncontrolled 05/19 - Unspecified viral meningitis IMPORTED PAST SURGICAL HISTORY Procedure Laterality Date - MYRINGOTOMY W TUBE,BILATERAL(2) SH: Smokers: No ROS: otherwise normal Physical Exam: General: alert and active in no apparent distress Eyes: normal Ears: External ears normal, canals clear Nose/Sinuses :positive findings: sinus tenderness maxillary bilateral, purulent rhinorrhea Oropharynx :moist mucous membranes, tonsils without hypertrophy and no exudates present Cardiovascular : Regular Rate and Rhythm without murmurs or clicks Lungs: clear to auscultation Abdomen :Abdomen is soft, nontender, without organomegaly or masses. IMP Sinusitis maxillary Type 1 DM PLAN 1) reviewed criteria for calling or returning for further evaluation. 2) symptomatic treatment options reviewed 3) per orders- Office Visit on 06/15/18 -amoxicillin (AMOXIL) 875 mg tablet 4) reviewed recent endo note- will notify that he has not heard from the rep for his continuous glucose monitor. Scott Braden MD Referring Provider: SELF [200] Allergies As of Date: 06/15/2018 (No Known Allergies) Date Reviewed: 06/15/2018 Reviewed by: Avani Nolasco RN - Fully Assessed Reason for Visit: Nasal Congestion [235] Cmt: 3 days, also had drainage from eyes. States he has dark green nasal drainage. Also has sore throat Primary Visit Diagnosis:Acute non-recurrent maxillary sinusitis [J01.00] Other Visit Diagnoses:Type 1 diabetes mellitus with hyperglycemia (HCC) [E10.65] Fatty liver disease, nonalcoholic [K76.0] Order(s):amoxicillin (AMOXIL) 875 mg tabletTake 1 tablet by mouth twice daily for 14 days.Disp: 28 tabletRfl: 0 Prescriptions as of 06/15/2018 Sig: INSULIN GLARGINE (U-100) 100 * Inject 30 units AM and 30 uni* OMEPRAZOLE 40 MG CAPSULE,MANAN* Take 1 capsule by mouth once * INSULIN ASPART U-100 100 UNI* TAKE 1 UNIT FOR 5 GRAMS CARB * GLUCAGON (HUMAN RECOMBINANT) * use as directed, call if used BLOOD SUGAR DIAGNOSTIC STRIPS USE TO TEST UP TO 12 TIMES A * PEN NEEDLE, DIABETIC 31 GAUGE* use as directed 10 times daily INSULIN SYRINGE U-100 WITH NE* use as directed LANCETS Use as instructed AMOXICILLIN 875 MG TABLET Take 1 tablet by mouth twice * Problem List As Of Date 06/15/2018 Noted Resolved Closed buckle fracture of radius [FHA8469] INVALID FOR*02/16/2018 ADD (Attention Deficit Disorder) [F98.8] INVALID FOR* Fatty liver disease, nonalcoholic [K76.0] INVALID FOR* Accidental striking against or bumped into by a*INVALID FOR* Activity, running [Y93.02] INVALID FOR* Activity, soccer [Y93.66] INVALID FOR* Anxiety disorder [F41.9] INVALID FOR* Contusion of right foot [S90.31XA] INVALID FOR*02/16/2018 Cramp and spasm [R25.2] INVALID FOR* Type 1 diabetes mellitus with hyperglycemia (HC*INVALID FOR* Hyperglycemia [R73.9] INVALID FOR* Hepatomegaly, not elsewhere classified [R16.0] INVALID FOR* Hyperkalemia [E87.5] INVALID FOR*02/16/2018 Hypo-osmolality and hyponatremia [E87.1] INVALID FOR*02/16/2018 Chronic sinusitis [J32.9] INVALID FOR* terminal clerk (current) use of insulin (HCC) [Z79.4]INVALID FOR* Nausea [R11.0] INVALID FOR*02/16/2018 Nausea with vomiting, unspecified [R11.2] INVALID FOR*02/16/2018 Other and unspecified overexertion or strenuous*INVALID FOR* Other external cause status [Y99.8] INVALID FOR* Hepatic steatosis [K76.0] INVALID FOR* Encounter for general adult medical examination*INVALID FOR* Suicidal ideations [R45.851] INVALID FOR* Abnormal electrocardiogram [R94.31] INVALID FOR* Right upper quadrant pain [R10.11] INVALID FOR*02/16/[address] of occurrence of external*INVALID FOR* Strain of unspecified muscle(s) and tendon(s) a*INVALID FOR* Suicidal ideation [R45.851] INVALID FOR* Unspecified external cause status [Y99.9] INVALID FOR* Unspecified place or not applicable [Y92.9] INVALID FOR* Unspecified sprain of right foot, initial encou*INVALID FOR* Ketonuria [R82.4] INVALID FOR* Epigastric pain [R10.13] INVALID FOR* Heartburn [R12] INVALID FOR* Gastroesophageal reflux disease [K21.9] INVALID FOR* Diabetes mellitus type 1, uncontrolled, without*INVALID FOR* Elevated liver enzymes [R74.8] INVALID FOR* Prescriptions ordered this encounter Disp Refills Start End AMOXICILLIN 875 MG TABLET 28 t* 0 06/15/2018 06/29/2018 Route: ORAL Sig: Take 1 tablet by mouth twice daily for 14 days. Letter Text Scott Braden M.D., F.A.A.P. Department of Pediatrics [address] [place] [address] June 15, 2018 To whom it may concern: Vahid Wang was seen in the office today for illness. Please excuse. The following restrictions should be observed: none. Sincerely, Encounter Status:Closed by SCOTT BRADEN MD on 06/15/18 PROGRESS Observed: 06/15/2018 Status: COMPLETED Source: ARTHUR 1:11 PM [facility] [place] REPOSITORY HNO ID: [id number] Author: Scott Braden Service: (none) Author Type: Physician Type: Progress Notes Filed: 06/15/2018 2:35 PM Note Text: Patient presents with: Nasal Congestion: 3 days, also had drainage from eyes. States he has dark green nasal drainage. Also has sore throat SUBJECTIVE: Vahid Wang is a 17 year old male who is here for a chief complaint of cold symptoms for the past 3, 4 day(s). Symptoms include congestion, rhinorrhea purulent, bloody, conjunctival discharge , pharyngitis, cough and sinus pain maxillary. Had runny nose for several weeks prior then abruptly worsened. Fluid intake has been slightly decreased. Denies fever, vomiting and diarrhea. Home treatment: OTC cold meds Sick contacts: family members PHM: IMPORTED PAST MEDICAL HISTORY Diagnosis Date - Attention deficit disorder with hyperactivity(314.01) - Conduct disorder, childhood onset type - Foot fracture, right growth plate involved - Fracture of clavicle, right, closed 2016 - Generalized convulsive epilepsy without mention of intractable epilepsy - Other abnormal heart sounds normal echocardiogram. Holter monitor that - Right wrist fracture - Sensorineural hearing loss, unspecified - Type I (juvenile type) diabetes mellitus without mention of complication, not stated as uncontrolled 05/19 - Unspecified viral meningitis IMPORTED PAST SURGICAL HISTORY Procedure Laterality Date - MYRINGOTOMY W TUBE,BILATERAL(2) SH: Smokers: No ROS: otherwise normal Physical Exam: General: alert and active in no apparent distress Eyes: normal Ears: External ears normal, canals clear Nose/Sinuses :positive findings: sinus tenderness maxillary bilateral, purulent rhinorrhea Oropharynx :moist mucous membranes, tonsils without hypertrophy and no exudates present Cardiovascular : Regular Rate and Rhythm without murmurs or clicks Lungs: clear to auscultation Abdomen :Abdomen is soft, nontender, without organomegaly or masses. IMP Sinusitis maxillary Type 1 DM PLAN 1) reviewed criteria for calling or returning for further evaluation. 2) symptomatic treatment options reviewed 3) per orders- Office Visit on 06/15/18 -amoxicillin (AMOXIL) 875 mg tablet 4) reviewed recent endo note- will notify that he has not heard from the rep for his continuous glucose monitor. Scott Braden MD CNOV Observed: 05/18/2018 Status: COMPLETED Source: ARTHUR 2:45 PM [facility] REPOSITORY Office Visit (ENDMED) VAHID WANG ([id number]) 2000 M Date Time Provider Department 05/18/18 2:45 PM KAMI GAMBLE (ALLI) SHERIDAN During your visit today, we recorded the following information about you: Pulse Blood pressure Weight Height 109/minute 122/82 64.4 kg 1.704 m Kami Gamble APRN.CNP 06/28/2018 8:08 AM Addendum Reason for Consultation: DM Type 1 Referring Physician: SELF HISTORY OF PRESENT ILLNESS Mr. Wang is a 17 year old male presenting here today for a follow up of DM Type 1. As I recall, he was initially diagnosed with diabetes 2002. LV 03/23/2018 A1C today is 13.0. Reportedly A1C was 16 in hospital. Here with his grandmother. 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 Was in hospital for DKA recently and basaglar increased. States he had not been checking sugar, taking insulin and was rebelling against diabetes. States he has been working at controlling his sugars and taking insulin over the last week. Ordered labs last visit but have not been done. We have been working toward an insulin pump but now states he does not want one. He was on [facility] [employer] in the past He is more interested in freestyle trav (denied previously by insurance) or [employer]. Does not drive. Working at [employer]; various shifts. Ordered freestyle trav but was not covered by insurance. ? Known complications include: DKA ? Exacerbating factors include: none ? Current diabetes regimen is as follows: 1. Basaglar 30 units AM and 30 units PM novolog ratio 1:5 meals; Correction 1:40 For sugars over 180. he is checking his blood glucose 8-10 times daily. he does not bring a log book today for review. No meter or log book today ? LDE Blood Sugar Frequency: ? FBS 126 today; nothing over 210 ? acL 175 today; typically 100-170 ? acS 90-100's ? HS : not checking ? ? Hypoglycemia frequency: occasional; 69 recently ? Hypoglycemia awareness: Yes Regarding symptoms of hypoglycemia, he is is not experiencing any symptoms such as polyuria, polydipsia, nocturia or rapid weight loss or blurry vision, Overall, the patient has no acute complaints at this time. PAST MEDICAL HISTORY Diagnosis Date - Attention deficit disorder with hyperactivity(314.01) - Conduct disorder, childhood onset type - Foot fracture, right growth plate involved - Fracture of clavicle, right, closed 2016 - Generalized convulsive epilepsy without mention of intractable epilepsy - Other abnormal heart sounds normal echocardiogram. Holter monitor that - Right wrist fracture - Sensorineural hearing loss, unspecified - Type I (juvenile type) diabetes mellitus without mention of complication, not stated as uncontrolled 05/19 - Unspecified viral meningitis PAST SURGICAL HISTORY Procedure Laterality Date - MYRINGOTOMY W TUBE,BILATERAL(2) FAMILY HISTORY Problem Relation Age of Onset - other (renal failure) Mother - Thyroid Father - other (adhd) Father - other (hearing loss: congenital) Father - other (hypercholesterlemia) Father - Heart Paternal Grandmother [place] - other (irritable bowel syndrome) Sister - other (migraine) Sister - Cancer Paternal Grandfather possibly lung cancer - Hearing Loss Paternal Grandfather congenital - Hearing Loss Brother congenital - other (adhd) Brother 15 - other (sleeping disorder) Brother Social History Marital status: Single Spouse name: Years of education: Number of children: Social History Main Topics Smoking status: Never Smoker Smokeless tobacco: Never Used Comment: Grandmother smokes outside of the home Alcohol use: No Drug use: No Sexual activity: No Social History Narrative Social History: Living in home: Paternal Grandmother and sister 19, father is legal guardian Primary general internist and physician leader(s): Allergies As of Date: 05/18/2018 (No Known Allergies) Fully Assessed 05/18/2018 Current Outpatient Prescriptions: Omeprazole (PRILOSEC) 40 mg capsule Take 1 capsule by mouth once daily. Disp: 30 capsule Rfl: 1 insulin aspart U-100 (NOVOLOG FLEXPEN U-100 INSULIN) 100 unit/mL inpn TAKE 1 UNIT FOR 5 GRAMS CARB UP TO 100 UNITS DAILY Disp: 15 Pen Rfl: 11 insulin glargine (BASAGLAR KWIKPEN U-100 INSULIN) 100 unit/mL (3 mL) inpn Inject 24 units AM and 24 units PM (Patient taking differently: Inject 30 units AM and 30 units PM ) Disp: Rfl: glucagon, human recombinant, (GLUCAGON EMERGENCY KIT, HUMAN,) 1 mg injection use as directed, call if used Disp: 1 Each Rfl: 2 blood sugar diagnostic (FREESTYLE LITE STRIPS) test strip USE TO TEST UP TO 12 TIMES A DAY DIRECTED Disp: 300 Strip Rfl: 11 Insulin [place], Disposable, (BD ULTRAFINE III MINI PEN) 31 gauge x 3/16 ndle use as directed 10 times daily Disp: 300 Each Rfl: 11 Insulin Syringe-Needle U-100 (BD INSULIN SYRINGE HALF UNIT) 0.3 mL 31 x 5/16 syrg use as directed Disp: 100 Syringe Rfl: 11 Lancets lancets Use as instructed Disp: 300 Each Rfl: 11 No current facility-administered medications for this visit. REVIEW OF SYSTEMS General: no fever and no chills Skin: no rashes, pruritis or dry skin Cardiac: denies chest pain, heart palpitations or orthopnea Pulmonary: denies wheezing, productive cough or exertional dyspnea PHYSICAL EXAMINATION BP 122/82 (BP Site: Left Arm, BP Position: Sitting, BP Cuff Size: Regular Adult) Ht 170.4 cm (5' 7.09) Wt 64.4 kg (142 lb) SpO2 96% BMI 22.18 kg/m2 Physical Exam Constitutional: He is oriented to person, place, and time and well-developed, well-nourished, and in no distress. No distress. HENT: Head: Normocephalic and atraumatic. Eyes: Right eye exhibits no discharge. Left eye exhibits no discharge. Neck: No thyromegaly present. Cardiovascular: Normal rate and regular rhythm. Pulmonary/Chest: Effort normal and breath sounds normal. Musculoskeletal: He exhibits no edema. Lymphadenopathy: He has no cervical adenopathy. Neurological: He is alert and oriented to person, place, and time. Skin: Skin is warm and dry. He is not diaphoretic. Psychiatric: Mood, memory, affect and judgment normal. DATA Creatinine Date Value Ref Range Status 01/16/2018 0.68 (L) 0.73 - 1.22 mg/dL Final Hemoglobin A1C (%) Date Value 01/16/2018 13.5 ) No components found for: URINEALBUMIN Cholesterol, Total (mg/dL) Date Value 11/15/2016 219 HDL Cholesterol (mg/dL) Date Value 11/15/2016 20 LDL Cholesterol (mg/dL) Date Value 11/15/2016 127 Triglyceride (mg/dL) Date Value 11/15/2016 360 IMPRESSION: Mr. Wang is a 17 year old male here for evaluation of DM Type 1 complicated by DKA RECOMMENDATIONS: (E10.65) Diabetes mellitus type 1, uncontrolled, without complications (HCC) (primary encounter diagnosis) Comment: glycemic control seems to be improving based on the reported readings however he did not bring his meter today. He now states he does not want a pump but is interested in a sensor. We will try for dexcom so he will have alerts to changing sugars however if not covered will try to pursue trav again (he has the reader). I emailed the dexcom rep to start the process with the patients ok to share his contact info. He appears to be motivated at this time to improve his sugars. We reviewed the importance of improving control now to reduce the effects of chcf complications. Plan: HEMOGLOBIN A1C (POC) Have labs done fasting within the week. Basaglar 30 units AM and 30 units PM Novolog: Ratio of 1:5 meals and correction 1:40 over 180. Send me readings in a week. Let me know if you do not hear from Dexcom. Have labs done fasting next week. 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 Will work to improve glycemic control (E10.649) Hypoglycemia due to type 1 diabetes mellitus (HCC) Comment/Plan: Will work on obtaining dexcom Kami Gamble APRN, KIRTI Endocrinology [facility]/[place] [address] Fax: Kami Gamble APRN.[facility] 05/18/2018 3:22 PM Addendum 1. Have labs done fasting within the week. 2. Basaglar 30 units AM and 30 units PM 3. Novolog: Ratio of 1:5 meals and correction 1:40 over 180. 4. Send me readings in a week. 5. Let me know if you do not hear from Dexcom. 6. Have labs done fasting next week. Kami Gamble APRN, MESFINC Endocrinology [facility]/[place] [address] Fax: Referring Provider: SELF [200] Allergies As of Date: 05/18/2018 (No Known Allergies) Date Reviewed: 05/18/2018 Reviewed by: Kami Gamble - Fully Assessed Reason for Visit: Diabetes [34] Primary Visit Diagnosis:Diabetes mellitus type 1, uncontrolled, without complications (HCC) [E10.65] Other Visit Diagnoses:Glycogenic hepatopathy [K75.81] Hypoglycemia due to type 1 diabetes mellitus (HCC) [E10.649] Order(s):HEMOGLOBIN A1C (POC) [6233179] Order #: [id number] #:[id number] insulin glargine (BASAGLAR KWIKPEN U-100 INSULIN) 100 unit/mL (3 mL) inpnInject 30 units AM and 30 units PMDisp: Rfl: Prescriptions as of 05/18/2018 Sig: BLOOD SUGAR DIAGNOSTIC STRIPS USE TO TEST UP TO 12 TIMES A * GLUCAGON (HUMAN RECOMBINANT) * use as directed, call if used INSULIN ASPART U-100 100 UNI* TAKE 1 UNIT FOR 5 GRAMS CARB * INSULIN GLARGINE (U-100) 100 * Inject 30 units AM and 30 uni* PEN NEEDLE, DIABETIC 31 GAUGE* use as directed 10 times daily INSULIN SYRINGE U-100 WITH NE* use as directed LANCETS Use as instructed OMEPRAZOLE 40 MG CAPSULE,MANAN* Take 1 capsule by mouth once * Medication notes this encounter INSULIN ASPART U-100 100 UNIT/ML SUBCUTANEOUS PEN >> Cristy Valentino Ma 05/18/2018 2:53 PM >> CRISTY VALENTINO MA May 18, 2018 2:53 PM Hospital stating to change Humalog Problem List As Of Date 05/18/2018 Noted Resolved Closed buckle fracture of radius [ZFR5242] INVALID FOR*02/16/2018 ADD (Attention Deficit Disorder) [F98.8] INVALID FOR* Fatty liver disease, nonalcoholic [K76.0] INVALID FOR* Accidental striking against or bumped into by a*INVALID FOR* Activity, running [Y93.02] INVALID FOR* Activity, soccer [Y93.66] INVALID FOR* Anxiety disorder [F41.9] INVALID FOR* Contusion of right foot [S90.31XA] INVALID FOR*02/16/2018 Cramp and spasm [R25.2] INVALID FOR* Type 1 diabetes mellitus with hyperglycemia (HC*INVALID FOR* Hyperglycemia [R73.9] INVALID FOR* Hepatomegaly, not elsewhere classified [R16.0] INVALID FOR* Hyperkalemia [E87.5] INVALID FOR*02/16/2018 Hypo-osmolality and hyponatremia [E87.1] INVALID FOR*02/16/2018 Chronic sinusitis [J32.9] INVALID FOR* long-term (current) use of insulin (HCC) [Z79.4]INVALID FOR* Nausea [R11.0] INVALID FOR*02/16/2018 Nausea with vomiting, unspecified [R11.2] INVALID FOR*02/16/2018 Other and unspecified overexertion or strenuous*INVALID FOR* Other external cause status [Y99.8] INVALID FOR* Hepatic steatosis [K76.0] INVALID FOR* Encounter for general adult medical examination*INVALID FOR* Suicidal ideations [R45.851] INVALID FOR* Abnormal electrocardiogram [R94.31] INVALID FOR* Right upper quadrant pain [R10.11] INVALID FOR*02/16/[address] of occurrence of external*INVALID FOR* Strain of unspecified muscle(s) and tendon(s) a*INVALID FOR* Suicidal ideation [R45.851] INVALID FOR* Unspecified external cause status [Y99.9] INVALID FOR* Unspecified place or not applicable [Y92.9] INVALID FOR* Unspecified sprain of right foot, initial encou*INVALID FOR* Ketonuria [R82.4] INVALID FOR* Epigastric pain [R10.13] INVALID FOR* Heartburn [R12] INVALID FOR* Gastroesophageal reflux disease [K21.9] INVALID FOR* Diabetes mellitus type 1, uncontrolled, without*INVALID FOR* Elevated liver enzymes [R74.8] INVALID FOR* Other instructions from your clinician: 1. Have labs done fasting within the week. 2. Basaglar 30 units AM and 30 units PM 3. Novolog: Ratio of 1:5 meals and correction 1:40 over 180. 4. Send me readings in a week. 5. Let me know if you do not hear from Dexcom. 6. Have labs done fasting next week. Kami Gamble APRN, HEAVY EQUIPMENT SALES MANAGER-C Endocrinology [facility] Medical Office [facility]/[address] [place] [address] Fax: Prescriptions ordered this encounter Disp Refills Start End INSULIN GLARGINE (U-100) 100 UNIT/ML* 05/18/2018 Class: Med Update Sig: Inject 30 units AM and 30 units PM Medications Discontinued During This Encounter insulin glargine (BASAGLAR KWIKPEN U* 02/16/2018 05/18/2018 Class: Med Update Sig: Inject 24 units AM and 24 units PM Patient taking differently: Inject 30 units AM and 30 units PM Disc: Reason for discontinue is not on file. Follow-up and Disposition History Recorded Encounter Status:Closed by KAMI GAMBLE on 05/18/18 PROGRESS Observed: 05/18/2018 Status: COMPLETED Source: ARTHUR 1:55 PM [facility] REPOSITORY HNO ID: [id number] Author: Kami Tobias) Rian Service: (none) Author Type: Nurse Practitioner Type: Progress Notes Filed: 06/28/2018 8:08 AM Note Text: Reason for Consultation: DM Type 1 Referring Physician: SELF HISTORY OF PRESENT ILLNESS Mr. Wang is a 17 year old male presenting here today for a follow up of DM Type 1. As I recall, he was initially diagnosed with diabetes 2002. LV 03/23/2018 A1C today is 13.0. Reportedly A1C was 16 in hospital. Here with his grandmother. 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 Was in hospital for DKA recently and basaglar increased. States he had not been checking sugar, taking insulin and was rebelling against diabetes. States he has been working at controlling his sugars and taking insulin over the last week. Ordered labs last visit but have not been done. We have been working toward an insulin pump but now states he does not want one. He was on [facility] [employer] in the past He is more interested in freestyle trav (denied previously by insurance) or dexcom. Does not drive. Working at [employer]; various shifts. Ordered freestyle trav but was not covered by insurance. ? Known complications include: DKA ? Exacerbating factors include: none ? Current diabetes regimen is as follows: 1. Basaglar 30 units AM and 30 units PM novolog ratio 1:5 meals; Correction 1:40 For sugars over 180. he is checking his blood glucose 8-10 times daily. he does not bring a log book today for review. No meter or log book today ? LDE Blood Sugar Frequency: ? FBS 126 today; nothing over 210 ? acL 175 today; typically 100-170 ? acS 90-100's ? HS : not checking ? ? Hypoglycemia frequency: occasional; 69 recently ? Hypoglycemia awareness: Yes Regarding symptoms of hypoglycemia, he is is not experiencing any symptoms such as polyuria, polydipsia, nocturia or rapid weight loss or blurry vision, Overall, the patient has no acute complaints at this time. PAST MEDICAL HISTORY Diagnosis Date - Attention deficit disorder with hyperactivity(314.01) - Conduct disorder, childhood onset type - Foot fracture, right growth plate involved - Fracture of clavicle, right, closed 2016 - Generalized convulsive epilepsy without mention of intractable epilepsy - Other abnormal heart sounds normal echocardiogram. Holter monitor that - Right wrist fracture - Sensorineural hearing loss, unspecified - Type I (juvenile type) diabetes mellitus without mention of complication, not stated as uncontrolled 05/19 - Unspecified viral meningitis PAST SURGICAL HISTORY Procedure Laterality Date - MYRINGOTOMY W TUBE,BILATERAL(2) FAMILY HISTORY Problem Relation Age of Onset - other (renal failure) Mother - Thyroid Father - other (adhd) Father - other (hearing loss: congenital) Father - other (hypercholesterlemia) Father - Heart Paternal Grandmother [place] - other (irritable bowel syndrome) Sister - other (migraine) Sister - Cancer Paternal Grandfather possibly lung cancer - Hearing Loss Paternal Grandfather congenital - Hearing Loss Brother congenital - other (adhd) Brother 15 - other (sleeping disorder) Brother Social History Marital status: Single Spouse name: Years of education: Number of children: Social History Main Topics Smoking status: Never Smoker Smokeless tobacco: Never Used Comment: Grandmother smokes outside of the home Alcohol use: No Drug use: No Sexual activity: No Social History Narrative Social History: Living in home: Paternal Grandmother and sister 19, father is legal guardian Primary general internist and physician leader(s): Allergies As of Date: 05/18/2018 (No Known Allergies) Fully Assessed 05/18/2018 Current Outpatient Prescriptions: Omeprazole (PRILOSEC) 40 mg capsule Take 1 capsule by mouth once daily. Disp: 30 capsule Rfl: 1 insulin aspart U-100 (NOVOLOG FLEXPEN U-100 INSULIN) 100 unit/mL inpn TAKE 1 UNIT FOR 5 GRAMS CARB UP TO 100 UNITS DAILY Disp: 15 Pen Rfl: 11 insulin glargine (BASAGLAR KWIKPEN U-100 INSULIN) 100 unit/mL (3 mL) inpn Inject 24 units AM and 24 units PM (Patient taking differently: Inject 30 units AM and 30 units PM ) Disp: Rfl: glucagon, human recombinant, (GLUCAGON EMERGENCY KIT, HUMAN,) 1 mg injection use as directed, call if used Disp: 1 Each Rfl: 2 blood sugar diagnostic (FREESTYLE LITE STRIPS) test strip USE TO TEST UP TO 12 TIMES A DAY DIRECTED Disp: 300 Strip Rfl: 11 Insulin [place], Disposable, (BD ULTRAFINE III MINI PEN) 31 gauge x 3/16 ndle use as directed 10 times daily Disp: 300 Each Rfl: 11 Insulin Syringe-Needle U-100 (BD INSULIN SYRINGE HALF UNIT) 0.3 mL 31 x 5/16 syrg use as directed Disp: 100 Syringe Rfl: 11 Lancets lancets Use as instructed Disp: 300 Each Rfl: 11 No current facility-administered medications for this visit. REVIEW OF SYSTEMS General: no fever and no chills Skin: no rashes, pruritis or dry skin Cardiac: denies chest pain, heart palpitations or orthopnea Pulmonary: denies wheezing, productive cough or exertional dyspnea PHYSICAL EXAMINATION BP 122/82 (BP Site: Left Arm, BP Position: Sitting, BP Cuff Size: Regular Adult) Ht 170.4 cm (5' 7.09) Wt 64.4 kg (142 lb) SpO2 96% BMI 22.18 kg/m2 Physical Exam Constitutional: He is oriented to person, place, and time and well-developed, well-nourished, and in no distress. No distress. HENT: Head: Normocephalic and atraumatic. Eyes: Right eye exhibits no discharge. Left eye exhibits no discharge. Neck: No thyromegaly present. Cardiovascular: Normal rate and regular rhythm. Pulmonary/Chest: Effort normal and breath sounds normal. Musculoskeletal: He exhibits no edema. Lymphadenopathy: He has no cervical adenopathy. Neurological: He is alert and oriented to person, place, and time. Skin: Skin is warm and dry. He is not diaphoretic. Psychiatric: Mood, memory, affect and judgment normal. DATA Creatinine Date Value Ref Range Status 01/16/2018 0.68 (L) 0.73 - 1.22 mg/dL Final Hemoglobin A1C (%) Date Value 01/16/2018 13.5 ) No components found for: URINEALBUMIN Cholesterol, Total (mg/dL) Date Value 11/15/2016 219 HDL Cholesterol (mg/dL) Date Value 11/15/2016 20 LDL Cholesterol (mg/dL) Date Value 11/15/2016 127 Triglyceride (mg/dL) Date Value 11/15/2016 360 IMPRESSION: Mr. Wang is a 17 year old male here for evaluation of DM Type 1 complicated by DKA RECOMMENDATIONS: (E10.65) Diabetes mellitus type 1, uncontrolled, without complications (HCC) (primary encounter diagnosis) Comment: glycemic control seems to be improving based on the reported readings however he did not bring his meter today. He now states he does not want a pump but is interested in a sensor. We will try for dexcom so he will have alerts to changing sugars however if not covered will try to pursue trav again (he has the reader). I emailed the dexcom rep to start the process with the patients ok to share his contact info. He appears to be motivated at this time to improve his sugars. 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 Plan: HEMOGLOBIN A1C (POC) Have labs done fasting within the week. Basaglar 30 units AM and 30 units PM Novolog: Ratio of 1:5 meals and correction 1:40 over 180. Send me readings in a week. Let me know if you do not hear from Dexcom. Have labs done fasting next week. 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 Will work to improve glycemic control (E10.649) Hypoglycemia due to type 1 diabetes mellitus (HCC) Comment/Plan: Will work on obtaining dexcom Kami Gamble APRN, HEAVY EQUIPMENT SALES MANAGER-C Endocrinology [facility] Medical Office [facility]/[address], [address] [place], [place] [address] Fax: DISCHARGE SUMMARY Observed: 05/12/2018 Status: F Source: RIP 10:42 AM [facility] REPOSITORY [facility] Medical Records Department [address] [place] [address] Discharge Summary 05/12/18 1030 MR#: [id number] Acct: [id number] Name: VAHID WANG Rep #: [id number] : 2000 17 From: Phill Samaniego MD PCP: Scott Braden MD Status: ADM IN Y Location: [facility] [place] [facility] [id number] Discharge Date and Diagnosis Date of Admission: 05/10/18 Date of Discharge: 05/12/18 - Secondary Discharge Diagnosis Chronic Problems (Last Reviewed 03/20/18 @ 15:05 by Amanda Wilkinson) Anxiety and depression (Chronic) GERD (gastroesophageal reflux disease) (Chronic) Fatty liver (Chronic) Suicidal ideations (Chronic) DM I (diabetes mellitus, type I), uncontrolled (Chronic) Hospital Course and Treatment Imaging Results: None Consults: ICU Operations: None Procedures: None Summary of Care Provided: Per HPI: The patient is a 17 y/o M w/ PMHx: Diabetes mellitus type I w/ serial admissions for DKA, Prior Noted Elevated Liver Enzymes of unclear etiology following w/ [facility], Anxiety and Depression w/ prior suicidal ideation admissions following w/ Crisis Center who presents to the [facility] ED on 05/10/18 with lightheadedness, dizziness, nausea and emesis as well as generalized abdominal pain. He notes recently improved BS control. He states he has been skipping meals regularly but has been compliant with insulin. On most recent discharge 02/12/18 patient was arranged to be evaluated by Dr. 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 Work-up in the ED included T 97.5, HR 136-->114, BP 146.92-->136/75, RR 30-->19, 100% on RA, CBC w/ WBC 9.4, Hgb 16.8, Plts 417 without marked shift, CMP w/ sodium 130, chloride 95, carbon dioxide 6, anion gap 29, BUN/creatinine 18/1.36, glucose 676, AST/ALT 88/196, alk phos 186, lipase 33, acetone large. In the ED patient administered NS 3L bolus, phenergan IV, zofran IV, insulin drip initiated. Vital Signs - 24 hr 05/12/18 07:54 98.1 F 75 16 132/81 H 100 General: Alert, Oriented x3, Cooperative, No apparent distress HEENT: Atraumatic, EOMI, Normocephalic Oral: Moist Mucosa Neck: Supple, No JVD Lungs: Clear to auscultation, Normal air movement, No rhonchi, No wheeze, No rales Cardiovascular: Regular rate, Regular Rhythm, Normal S1, Normal S2, No murmurs Abdomen: Soft, Non Tender, Non-Distended, No Hepato-splenomegaly Extremities: No edema, Capillary Refill Less than 3 Seconds Skin: No rashes, No breakdown, Ulcer/ Wound Neurological: Neuro grossly intact, Sensory exam intact to light touch and pain Psych/Mental Status: Normal Affect, Appropriate Hospital Course: 1. DKA 2/2 DM1/SAMUEL (resolved)/HTN (resolved) - He has had multiple previous episodes of DKA in the past. He used to have an insulin pump and a sensor however the insurance company stopped covering the sensor. He was switched to long acting and SSI, however the SSI did not work because he was not very good at monitoring his blood sugars. He was switched to long acting and carb ratio at meals with 1 U of insulin per 7G of carbs. This did not seem to help much either. I spoke to him extensively about eating consistently three times a day to make his life and insulin dosing easier. Will DC home today on Lantus 30 U BID, Novolog 5U TIDWM, and his carb ratio. 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 2. H/o elevated LFTs - His AST and ALT did improve during his inpatient stay and I recommend that he have outpatient follow-up for this issue, likely related to his uncontrolled DM leading to fatty infiltration of the liver as seen on his liver US in july. 3. His other diagnoses were evaluated and his home medications were continued where appropriate - Physical Exam Vital Signs Temp Pulse Resp BP Pulse Ox 98.1 F 75 16 132/81 H 100 05/12/18 07:54 05/12/18 07:54 05/12/18 07:54 05/12/18 07:54 05/12/18 07:54 Oxygen Delivery Method Room Air Weight: 128 lb 4.944 oz Body Mass Index (BMI) 19.5 Finger Stick Blood Glucose 131 Intake and Output for Last 24 Hours Intake Total 5249 / 5249 1110 / 1110 Output Total 3450 / 3450 1650 / 1650 Balance 1799 / 1799 -540 / -540 Laboratory Tests Past 24 Hrs Sodium 140 Potassium 2.9 L Chloride 106 Carbon Dioxide 24.0 Anion Gap 10 BUN 9 Creatinine 0.64 L POC Glucose POC Glucose 175 H 331 H 261 H POC Glucose 331 H Discharge Activity: No Restrictions Call your doctor if you observe: Numbness or Tingling, Dizziness, Fainting spells Home Medications: Medications to take at Discharge insulin aspart U- 100 100 unit/mL subcutaneous pen See Rx Instructions SC QDAY 08/10/17 Insulin Glargine,Hum.rec.anlog [Basaglar Kwikpen U-100] 30 unit SQ BIDAC #1 insuln.pen 05/12/18 Insulin Lispro [Humalog KwikPen] 5 unit SC TIDAC #1 insuln.pen 05/12/18 Following Prescrptions Were Given to Patient: Insulin Lispro [Humalog KwikPen] 5 unit SC TIDAC #1 insuln.pen Primary Care Physician: Scott Braden MD [Primary Care Provider] - Please follow up with your Primary Care Physician in: in 3- 5 days Please Follow Up With: [facility] Doctor,Out of - Furnace Keeper When: in 1-2 weeks Disposition: Home Minutes spent on discharge:: 35 Patient Condition:: Good Medical Necessity - Tobacco Use Smoking Status: Never smoker Tobacco Use: Non-smoker Meaningful Use Info Meaningful Use Diagnoses (Choose all that apply): None applicable Code Visit Inpatient E AND M: 10009 Disch Hosp 05/12/18 1042 <Electronically signed by Phill Samaniego MD> Date Phill Samaniego MD Cosigner Signature (if applicable): Date CC: Scott Braden MD; Phill Samaniego MD Signed DISCHARGE INSTRUCTION Observed: 05/12/2018 Status: F Source: RIP 10:23 AM [facility] REPOSITORY [facility] Medical Records Department [address] [place] [address] Instructions for Home/Discharge Instructions 05/12/18 1022 MR#: [id number] Acct: [id number] Name: VAHID WANG Rep #: [id number] : 2000 17 From: Phill Samaniego MD PCP: Scott Braden MD Status: ADM IN - Discharge Diagnoses Current Active Problems: Current Active and Chronic Problems (Last Reviewed 03/20/18 @ 15:05 by Amanda Wilkinson) Anxiety and depression (Chronic) You will use the following diet at home:: Calorie/Carbohydrate Controlled (specify 1200, 1400, etc) Your food should be the consistency of: Regular Your liquids should be the consistency of: Regular/Thin Discharge Activity: No Restrictions Call your doctor if you observe: Numbness or Tingling, Dizziness, Fainting spells Allergies/Adverse Reactions: Allergies No Known Allergies Allergy (Verified 05/09/18 23:11) Medications to take at Discharge insulin aspart U- 100 100 unit/mL subcutaneous pen See Rx Instructions SC QDAY 08/10/17 Insulin Glargine,Hum.rec.anlog [Basaglar Kwikpen U-100] 30 unit SQ BIDAC #1 insuln.pen 05/12/18 Insulin Lispro [Humalog KwikPen] 5 unit SC TIDAC #1 insuln.pen 05/12/18 The following prescriptions were given: Insulin Lispro [Humalog KwikPen] 5 unit SC TIDAC #1 insuln.pen Primary Care Physician: Scott Braden MD [Primary Care Provider] - Please follow up with your Primary Care Physician in: in 3- 5 days Test Results: Test results from this visit will be discussed in further detail at your follow-up appointment, if applicable. Please Follow Up With: [facility] Doctor,Out of - Furnace Keeper When: in 1-2 weeks 05/12/18 1023 <Electronically signed by Phill Samaniego MD> Date Phill Samaniego MD CC: Scott Braden MD BEDSIDE GLUCOSE Collected: 05/12/2018 Status: F Source: RIP 7:34 AM [facility] REPOSITORY TYPE CODE TESTS RESULT OUT OF REFERENCE UNITS RANGE LAB L501.080 70-110 mg/dL High BEDSIDE GLU 175 Result Comment: MANAGEMENT OF PATIENT CARE PER NURSING PROTOCOL Performed By: #### L501.080 #### [facility] Point of Care [address] [place], [place] [address] BASIC METABOLIC Collected: 05/12/2018 Status: F Source: [place] PROFILE (BMP) 5:14 AM [facility] REPOSITORY TYPE CODE TESTS RESULT OUT OF RANGE REFERENCE UNITS LAB L501.0100 74-106 mg/dL High GLU 162 Result Comment: Fasting Glucose result greater than or equal to 126 mg/dL suggests DIABETES MELLITUS per A.D.A. criteria. Please note revised GLUCOSE reference range effective 2017. LAB L501.1000 7-18 mg/dL Normal BUN 9 LAB L501.1100 0.70-1.30 mg/dL Low CREAT,SERUM 0.64 Result Comment: The validity of the calculated GFR AND GFRAA in patients over 70 years has not been determined. Clinical correlation is essential. LAB L501.1110 >60 mL/min Normal EST GFR 170 Result Comment: Non- GFR Calc LAB L501.1115 >60 mL/min Normal EST GFR - AA 206 Result Comment: GFR Calc LAB L501.1255 ml/min Normal Estimated CRCL 152.83 LAB L501.1300 10-20 RATIO BUN/CRE Normal 14.0 LAB L501.2200 8.5-10 mg/dL Low .1 CA 8.0 LAB L501.5300 136-14 mmol/L 5 NA Normal 140 LAB L501.5600 3.5-5. mmol/L Low 1 K 2.9 LAB L501.5900 98-107 mmol/L CL Normal 106 LAB L501.6100 21.0-3 mmol/L 2.0 CO2 Normal 24.0 LAB L501.6200 5-15 GAP Normal 10 Performed By: #### L500.2500 #### [facility] [address] [place], [address] PHOSPHORUS Collected: 05/12/2018 Status: F Source: RIP 5:14 AM [facility] REPOSITORY TYPE CODE TESTS RESULT OUT OF RANGE REFERENCE UNITS LAB L501.2300 2.5-4.9 mg/dL Normal PHOS 2.5 Performed By: #### L501.2300, L501.5200 #### [facility] [address] [place], [address] MAGNESIUM Collected: 05/12/2018 Status: F Source: RIP 5:14 AM [facility] REPOSITORY TYPE CODE TESTS RESULT OUT OF RANGE REFERENCE UNITS LAB L501.5200 1.6-2.6 mg/dL Normal MG 1.8 Performed By: #### L501.2300, L501.5200 #### [facility] [address] [place], [address] BEDSIDE GLUCOSE Collected: 05/11/2018 Status: F Source: [place] 10:45 PM [facility] REPOSITORY TYPE CODE TESTS RESULT OUT OF REFERENCE UNITS RANGE LAB L501.080 70-110 mg/dL High BEDSIDE GLU 331 Result Comment: MANAGEMENT OF PATIENT CARE PER NURSING PROTOCOL Performed By: #### L501.080 #### [facility] Point of Care [address] [place] [address] BEDSIDE GLUCOSE Collected: 05/11/2018 Status: F Source: RIP 4:27 PM [facility] REPOSITORY TYPE CODE TESTS RESULT OUT OF REFERENCE UNITS RANGE LAB L501.080 70-110 mg/dL High BEDSIDE GLU 261 Result Comment: MANAGEMENT OF PATIENT CARE PER NURSING PROTOCOL Performed By: #### L501.080 #### [facility] Point of Care [address] [place] [address] 12 LEAD ELECTROCARDIOGRAM Observed: 05/11/2018 Status: F Source: [place] 1:33 PM [facility] REPOSITORY [facility] Cardiovascular Services [address] [address] 12 Lead EKG 05/09/18 2342 MR#: [id number] Acct: [id number] Name: FELIPEBRIONNAJOSHUA Garcia Rep #: [id number] : 2000 17 From: Chuck Walker MD Attending Dr: Phill Samaniego MD Status: ADM IN Ordering Dr: Staci Glover MD Date: 05/10/18 Location: [facility] [place] [facility] Sex: M C Admitted: 05/10/18 Test Reason : POSS DKA Blood Pressure : / mmHG Vent. Rate : 108 BPM Atrial Rate : 108 BPM P-R Int : 126 ms QRS Dur : 084 ms QT Int : 336 ms P-R-T Axes : 072 051 056 degrees QTc Int : 450 ms Sinus tachycardia Biatrial enlargement Nonspecific T wave abnormality Abnormal ECG Confirmed by RONALD OLMEDO, CHUCK ([id number]), assistant editor CHRISSIE CACERES ([id number]) on 05/11/2018 1:33:16 PM Referred By: CHARBEL Confirmed By:CHUCK WALKER MD 05/11/18 1333 Date Chuck Walker MD CC: Scott Braden MD; Staci Glover MD; Phill Samaniego MD Signed BEDSIDE GLUCOSE Collected: 05/11/2018 Status: F Source: RIP 11:16 AM [facility] REPOSITORY TYPE CODE TESTS RESULT OUT OF REFERENCE UNITS RANGE LAB L501.080 70-110 mg/dL High BEDSIDE GLU 331 Result Comment: MANAGEMENT OF PATIENT CARE PER NURSING PROTOCOL Performed By: #### L501.080 #### [facility] Point of Care [address] [place], [place] [address] BEDSIDE GLUCOSE Collected: 05/11/2018 Status: F Source: RIP 6:32 AM [facility] REPOSITORY TYPE CODE TESTS RESULT OUT OF REFERENCE UNITS RANGE LAB L501.080 70-110 mg/dL High BEDSIDE GLU 281 Result Comment: MANAGEMENT OF PATIENT CARE PER NURSING PROTOCOL Performed By: #### L501.080 #### [facility] Point of Care [address] [place] [address] CBC-COMPLETE BLOOD CNT Collected: 05/11/2018 Status: F Source: [place] NO DIFF 5:25 AM [facility] REPOSITORY TYPE CODE TESTS RESULT OUT OF RANGE REFERENCE UNITS LAB L100.1000 4.4-11.0 K/mm3 Normal WBC 5.3 LAB L100.1200 4.6-6.2 M/mm3 Low RBC 4.27 LAB L100.1300 13.0-16.5 g/dl Normal HGB 13.5 LAB L100.1400 40-54 % Low HCT 39.4 LAB L100.1500 80-94 fL Normal MCV 92.3 LAB L100.1600 27.0-32.0 pg Normal MCH 31.6 LAB L100.1700 32-36 g/gl Normal MCHC 34.3 LAB L100.1810 11.6-14.6 % High RDW CV 14.8 LAB L100.1820 35.1-43.9 fl High RDW SD 48.7 LAB L100.1900 150-450 K/mm3 Normal PLT 219 LAB L100.2000 6.2-12.0 fl Normal MPV 9.5 Performed By: #### L100.0500, L500.2500 #### [facility] [address] [place], [address] BASIC METABOLIC Collected: 05/11/2018 Status: F Source: [place] PROFILE (BMP) 5:25 AM [facility] REPOSITORY TYPE CODE TESTS RESULT OUT OF RANGE REFERENCE UNITS LAB L501.0100 74-106 mg/dL High GLU 304 Result Comment: Glucose result greater than or equal to 200 mg/dL suggests DIABETES MELLITUS per A.D.A. criteria. Please note revised GLUCOSE reference range effective 2017. LAB L501.1000 7-18 mg/dL Normal BUN 8 LAB L501.1100 0.70-1.30 mg/dL Normal CREAT,SERUM 1.11 Result Comment: The validity of the calculated GFR AND GFRAA in patients over 70 years has not been determined. Clinical correlation is essential. LAB L501.1110 >60 mL/min Normal EST GFR 90 Result Comment: Non- GFR Calc LAB L501.1115 >60 mL/min Normal EST GFR - AA 109 Result Comment: GFR Calc LAB L501.1255 ml/min Normal Estimated CRCL 88.12 LAB L501.1300 10-20 RATIO Low BUN/CRE 7.2 LAB L501.2200 8.5-10 mg/dL Low .1 CA 8.2 LAB L501.5300 136-14 mmol/L Normal 5 NA 141 LAB L501.5600 3.5-5. mmol/L Normal 1 K 3.6 Result Comment: Slight Hemolysis, Result may be falsely increased. LAB L501.5900 98-107 mmol/L High CL 110 LAB L501.6100 21.0-32.0 mmol/L Low CO2 17.0 LAB L501.6200 5-15 Normal GAP 14 Performed By: #### L100.0500, L500.2500 #### [facility] [address] [place], [address] BEDSIDE GLUCOSE Collected: 05/11/2018 Status: F Source: RIP 2:18 AM [facility] REPOSITORY TYPE CODE TESTS RESULT OUT OF REFERENCE UNITS RANGE LAB L501.080 70-110 mg/dL High BEDSIDE GLU 206 Result Comment: MANAGEMENT OF PATIENT CARE PER NURSING PROTOCOL Performed By: #### L501.080 #### [facility] Point of Care [address] [place] [address] BEDSIDE GLUCOSE Collected: 05/10/2018 Status: F Source: RIP 9:20 PM [facility] REPOSITORY TYPE CODE TESTS RESULT OUT OF REFERENCE UNITS RANGE LAB L501.080 70-110 mg/dL High BEDSIDE GLU 400 Result Comment: MANAGEMENT OF PATIENT CARE PER NURSING PROTOCOL Performed By: #### L501.080 #### [facility] Point of Care [address] [place] [address] BEDSIDE GLUCOSE Collected: 05/10/2018 Status: F Source: RIP 6:19 PM [facility] REPOSITORY TYPE CODE TESTS RESULT OUT OF REFERENCE UNITS RANGE LAB L501.080 70-110 mg/dL High BEDSIDE GLU 173 Result Comment: MANAGEMENT OF PATIENT CARE PER NURSING PROTOCOL Performed By: #### L501.080 #### [facility] Point of Care [address] [place] [address] BASIC METABOLIC Collected: 05/10/2018 Status: F Source: [place] PROFILE (BMP) 5:10 PM [facility] REPOSITORY TYPE CODE TESTS RESULT OUT OF RANGE REFERENCE UNITS LAB L501.0100 74-106 mg/dL High GLU 147 Result Comment: Fasting Glucose result greater than or equal to 126 mg/dL suggests DIABETES MELLITUS per A.D.A. criteria. Please note revised GLUCOSE reference range effective 2017. LAB L501.1000 7-18 mg/dL Normal BUN 9 LAB L501.1100 0.70-1.30 mg/dL Normal CREAT,SERUM 1.04 Result Comment: The validity of the calculated GFR AND GFRAA in patients over 70 years has not been determined. Clinical correlation is essential. LAB L501.1110 >60 mL/min Normal EST GFR 97 Result Comment: Non- GFR Calc LAB L501.1115 >60 mL/min Normal EST GFR - AA 118 Result Comment: GFR Calc LAB L501.1255 ml/min Normal Estimated CRCL 94.05 LAB L501.1300 10-20 RATIO Low BUN/CRE 8.7 LAB L501.2200 8.5-10 mg/dL Low .1 CA 8.3 LAB L501.5300 136-14 mmol/L Normal 5 NA 145 LAB L501.5600 3.5-5. mmol/L Low 1 K 3.4 Result Comment: Moderate Hemolysis, Result may be falsely increased. LAB L501.5900 98-107 mmol/L High CL 116 LAB L501.6100 21.0-32.0 mmol/L Low CO2 18.0 LAB L501.6200 5-15 Normal GAP 11 Performed By: #### L500.2500 #### [facility] [address] [facility] [id number] BEDSIDE GLUCOSE Collected: 05/10/2018 Status: F Source: [place] 4:23 PM [facility] REPOSITORY TYPE CODE TESTS RESULT OUT OF REFERENCE UNITS RANGE LAB L501.080 70-110 mg/dL High BEDSIDE GLU 131 Result Comment: MANAGEMENT OF PATIENT CARE PER NURSING PROTOCOL Performed By: #### L501.080 #### [facility] Point of Care [address] [place] [address] BEDSIDE GLUCOSE Collected: 05/10/2018 Status: F Source: [place] 3:24 PM [facility] REPOSITORY TYPE CODE TESTS RESULT OUT OF REFERENCE UNITS RANGE LAB L501.080 70-110 mg/dL High BEDSIDE GLU 137 Result Comment: MANAGEMENT OF PATIENT CARE PER NURSING PROTOCOL Performed By: #### L501.080 #### [facility] Point of Care [address] [place] [address] CONSULTATION Observed: 05/10/2018 Status: F Source: [place] 2:20 PM [facility] REPOSITORY [facility] Medical Records Department [address] [place] [address] Consultation 05/10/18 0639 MR#: [id number] Acct: [id number] Name: VAHID WANG Rep #: [id number] : 2000 17 From: Kyaw Cheney DO PCP: Scott Braden MD Status: ADM IN Y Location: ICU [id number] Reason for Consult Date of Consultation: 05/10/18 Reason for Consultation: DKA History of Present Illness: The patient is a 17-year-old male, with a history as outlined below, who presented to the emergency department on May 09 with complaints of abdominal pain, nausea, vomiting and dizziness. The patient has a known history of type 1 diabetes, for which he follows with KASHIF Chavez of endocrinology as an outpatient. He was initially diagnosed at the age of 2. Despite this, the patient's diabetes has been uncontrolled. He has been admitted to the hospital several times for DKA. At the time of his last discharge from the hospital, he was referred to [facility]. The patient's last hemoglobin A1c in October 2017 was noted to be 12.3. He states that his follow-up with [facility] is currently scheduled for tomorrow. The patient denies having missed any doses of his insulin prior to presenting to the hospital. Upon presentation to the emergency department, the patient was noted to be afebrile, tachycardic and tachypneic. He remained hemodynamically stable, nonetheless. Initial laboratory evaluation revealed no evidence of a leukocytosis. Chemistry profile was notable for a sodium of 130, chloride of 95, bicarb of 6, anion gap of 29 and creatinine 1.36. Glucose was elevated to 676. AST and ALT were mildly elevated to 88 and 196, respectively. Alkaline phosphatase was increased to 186. Lipase was normal. Large serum acetone level was noted. MRSA screen was negative. The patient received supplemental IV fluid hydration and was started on an insulin drip. He was subsequently transferred to the medical intensive care unit for ongoing management. Past Medical History Past Medical History (Chronic Problems): Chronic Problems (Last Reviewed 03/20/18 @ 15:05 by Amanda Wilkinson) Anxiety and depression (Chronic) GERD (gastroesophageal reflux disease) (Chronic) Fatty liver (Chronic) Suicidal ideations (Chronic) DM I (diabetes mellitus, type I), uncontrolled (Chronic) Medical History: Medical History (Last Reviewed 03/20/18 @ 15:05 by Amanda Wilkinson) Anxiety disorder F41.9 Back problem M53.9 Bone fracture T14.8XXA Diabetes type 1, uncontrolled E10.65 Dx : age 2 Last exacerbation : DKA : 01/31 Hypoglycemic episode : never ER visit : 01/31 Hearing problem H91.90 Liver disease K76.9 Seizure R56.9 Vision problem H54.7 Allergies No Known Allergies Allergy (Verified 05/09/18 23:11) Home Medications: Ambulatory Orders Medication Instructions Recorded Surgical History: Surgical History (Last Reviewed 03/20/18 @ 15:05 by Amanda Wilkinson) S/p bilateral myringotomy with tube placement Z96.22 Surgical History: - - BL ear tubes. Psychiatric History: Anxiety, Depression, Prior suicide attempt Lives: With Family - Lives with his grandmother. Smoking Status: Never smoker Tobacco Use: Non-smoker Alcohol: None Drugs: None - *Family History Maternal Family History: Family History (Last Reviewed 03/20/18 @ 15:05 by Amanda Wilkinson) Mother Kidney disease History Items: Heart Disease, Renal Disease Paternal Family History: Family History (Last Reviewed 03/20/18 @ 15:05 by Amanda Wilkinson) Mother Kidney disease History Items: Heart Disease, - - Paternal family males w/ frequent hearing disorder. Review of Systems Constitutional: Reports: Malaise, Weakness. Denies: Chills, Fever Eyes: Denies: Blurred vision, Double vision HEENT: Denies: Head Aches, Sinus Congestion, Sinus Drainage Cardiovascular: Denies: Chest Pain, Palpitations Respiratory: Denies: Cough, Shortness of breath at rest, Sputum production Gastrointestinal: Reports: Abdominal Pain, Nausea. Denies: Diarrhea, Vomiting Genitourinary: Denies: Dysuria Musculoskeletal: Denies: Joint Pain, Joint Tenderness Skin: Denies: Rash, Wounds Neurological: Denies: Numbness, Tingling, Focal weakness Psychiatric: Denies: Anxiety, Depression, Homicidal Ideations, Suicidal Ideations Hematologic/ Lymphatic: Denies: Easy Bruising, Easy Bleeding Objective: The patient's most recent lab work, culture data and imaging studies have all been personally reviewed. - Physical Exam General: Alert, Oriented x3, Cooperative, No apparent distress HEENT: Atraumatic, PERRLA, Normocephalic Oral: No Gingival or Mucosal Lesions/ Ulcerations, Dry Mucosa Neck: Supple, No Nodes, Trachea Midline Lungs: Normal air movement, No rhonchi, No wheeze, No rales Cardiovascular: Normal S1, Normal S2, No murmurs, Tachycardic Abdomen: Bowel Sounds Present, Soft, Non Tender, Non-Distended Extremities: No clubbing, No cyanosis, No edema, Capillary Refill Less than 3 Seconds Skin: No breakdown Musculoskeletal: No Tenderness to Palpation of Joints or Extremities, No Muscle Wasting Lymphatic: No Cervical, Supraclavicular, or Inguinal Adenopathy Neurological: Cranial nerves II-XII grossly intact, Neuro grossly intact Psych/Mental Status: Alert and oriented to time, place, person, mood and affect Vital Signs Temp Pulse Resp BP Pulse Ox 98.3 F 110 H 25 H 111/55 L 100 05/10/18 03:15 05/10/18 06:00 05/10/18 06:00 05/10/18 06:00 05/10/18 06:00 Oxygen Delivery Method Room Air Weight: 128 lb 4.944 oz Body Mass Index (BMI) 19.5 Finger Stick Blood Glucose 359 Intake and Output for Last 24 Hours Intake Total 3441 / 3441 Output Total 3450 / 3450 Balance -9 / -9 Laboratory Tests Past 24 Hrs WBC 9.4 RBC 5.22 Hgb 16.8 H Hct 48.6 MCV 93.1 MCH 32.2 H MCHC 34.6 WBC RBC Hgb Hct MCV MCH MCHC RDW RDW Differential Plt Count MPV Immature Gran % (Auto) WBC 15.1 H RBC 4.84 Hgb 15.5 Hct 45.2 POC Glucose POC Glucose 359 H 396 H 492 H* POC Glucose > 500 H* > 500 H* > 500 H* Assessment/Plan RECOMMENDATIONS: 1. Transition from normal saline to LR. 2. Continue management per DKA protocol. 3. Electrolyte repletion as needed. 4. Patient to remain n.p.o. until anion gap closed x2. 5. Continue subcutaneous heparin for DVT prophylaxis. IMPRESSIONS: 1. Diabetic ketoacidosis Unclear etiology, although suspect potential noncompliance. The patient is a poorly controlled type I diabetic, who was previously being followed by [facility] of endocrinology. The patient has been referred to [facility] for further evaluation. He reports that he was scheduled to have an appointment with them tomorrow. Given that it is unlikely he will be discharged from the hospital at that time, I have asked nursing to assist in contacting the endocrinology practice to see if his appointment can be moved back to next week. In the interim, would recommend transitioning from normal saline to lactated Ringer's. The patient will be continued on his insulin drip until his anion gap has been closed x2. Continue to monitor serial electrolytes and replete as necessary. 2. Transaminitis Potentially related to intravascular volume depletion. Prior ultrasound imaging did reveal evidence of mild fatty infiltration of the liver. We will continue to monitor hepatic function profile accordingly. Anticipate improvement with time. 3. Acute kidney injury Likely secondary to prerenal etiology in the setting of osmotic diuresis due to diabetic ketoacidosis. Creatinine is improving with volume expansion. Urine output is appropriate. No indication for renal replacement therapy at this time. 4. Anxiety/depression/GERD Complicates care, management, recovery and prognosis. This note was generated with Poxel dictation software. It may contain incorrect words, spelling, and punctuation that were not noted in checking the note before signing. Code Visit Inpatient E AND M: [id number] Init Hosp L3 05/10/18 1420 <Electronically signed by Kyaw Cheney DO> Date Kyaw Cheney DO Cosigner Signature (if applicable): Date CC: Scott Braden MD; Kyaw Cheney D.O. Signed BEDSIDE GLUCOSE Collected: 05/10/2018 Status: F Source: RIP 2:13 PM [facility] REPOSITORY TYPE CODE TESTS RESULT OUT OF REFERENCE UNITS RANGE LAB L501.080 70-110 mg/dL High BEDSIDE GLU 168 Result Comment: MANAGEMENT OF PATIENT CARE PER NURSING PROTOCOL Performed By: #### L501.080 #### [facility] Point of Care [address] [place] [address] BASIC METABOLIC Collected: 05/10/2018 Status: F Source: RIP PROFILE (BMP) 1:15 PM [facility] REPOSITORY TYPE CODE TESTS RESULT OUT OF RANGE REFERENCE UNITS LAB L501.0100 74-106 mg/dL High GLU 195 Result Comment: Fasting Glucose result greater than or equal to 126 mg/dL suggests DIABETES MELLITUS per A.D.A. criteria. Please note revised GLUCOSE reference range effective 2017. LAB L501.1000 7-18 mg/dL Normal BUN 10 LAB L501.1100 0.70-1.30 mg/dL Normal CREAT,SERUM 1.25 Result Comment: The validity of the calculated GFR AND GFRAA in patients over 70 years has not been determined. Clinical correlation is essential. LAB L501.1110 >60 mL/min Normal EST GFR 79 Result Comment: Non- GFR Calc LAB L501.1115 >60 mL/min Normal EST GFR - AA 95 Result Comment: GFR Calc LAB L501.1255 ml/min Normal Estimated CRCL 78.25 LAB L501.1300 10-20 RATIO Low BUN/CRE 8.0 LAB L501.2200 8.5-10 mg/dL Low .1 CA 8.2 LAB L501.5300 136-14 mmol/L Normal 5 NA 144 LAB L501.5600 3.5-5. mmol/L Normal 1 K 3.7 Result Comment: Moderate Hemolysis, Result may be falsely increased. LAB L501.5900 98-107 mmol/L High CL 116 LAB L501.6100 21.0-32.0 mmol/L Low CO2 15.0 LAB L501.6200 5-15 Normal GAP 13 Performed By: #### L500.2500 #### [facility] [address] [place], [place], [address] BEDSIDE GLUCOSE Collected: 05/10/2018 Status: F Source: RIP 1:14 PM [facility] REPOSITORY TYPE CODE TESTS RESULT OUT OF REFERENCE UNITS RANGE LAB L501.080 70-110 mg/dL High BEDSIDE GLU 176 Result Comment: MANAGEMENT OF PATIENT CARE PER NURSING PROTOCOL Performed By: #### L501.080 #### [facility] Point of Care [address] [place] [address] BEDSIDE GLUCOSE Collected: 05/10/2018 Status: F Source: RIP 12:00 PM [facility] REPOSITORY TYPE CODE TESTS RESULT OUT OF REFERENCE UNITS RANGE LAB L501.080 70-110 mg/dL High BEDSIDE GLU 199 Result Comment: MANAGEMENT OF PATIENT CARE PER NURSING PROTOCOL Performed By: #### L501.080 #### [facility] Point of Care [address] [place] [address] BEDSIDE GLUCOSE Collected: 05/10/2018 Status: F Source: RIP 11:07 AM [facility] REPOSITORY TYPE CODE TESTS RESULT OUT OF REFERENCE UNITS RANGE LAB L501.080 70-110 mg/dL High BEDSIDE GLU 228 Result Comment: MANAGEMENT OF PATIENT CARE PER NURSING PROTOCOL Performed By: #### L501.080 #### [facility] Point of Care [address] [place] [address] BEDSIDE GLUCOSE Collected: 05/10/2018 Status: F Source: RIP 10:13 AM [facility] REPOSITORY TYPE CODE TESTS RESULT OUT OF REFERENCE UNITS RANGE LAB L501.080 70-110 mg/dL High BEDSIDE GLU 251 Result Comment: MANAGEMENT OF PATIENT CARE PER NURSING PROTOCOL Performed By: #### L501.080 #### [facility] Point of Care [address] [place] [address] BASIC METABOLIC Collected: 05/10/2018 Status: F Source: RIP PROFILE (BMP) 9:35 AM [facility] REPOSITORY TYPE CODE TESTS RESULT OUT OF RANGE REFERENCE UNITS LAB L501.0100 74-106 mg/dL High GLU 247 Result Comment: Glucose result greater than or equal to 200 mg/dL suggests DIABETES MELLITUS per A.D.A. criteria. Please note revised GLUCOSE reference range effective 2017. LAB L501.1000 7-18 mg/dL Normal BUN 10 LAB L501.1100 0.70-1.30 mg/dL Normal CREAT,SERUM 1.30 Result Comment: The validity of the calculated GFR AND GFRAA in patients over 70 years has not been determined. Clinical correlation is essential. LAB L501.1110 >60 mL/min Normal EST GFR 75 Result Comment: Non- GFR Calc LAB L501.1115 >60 mL/min Normal EST GFR - AA 91 Result Comment: GFR Calc LAB L501.1255 ml/min Normal Estimated CRCL 75.24 LAB L501.1300 10-20 RATIO Low BUN/CRE 7.7 LAB L501.2200 8.5-10 mg/dL Low .1 CA 7.9 LAB L501.5300 136-14 mmol/L Normal 5 NA 143 LAB L501.5600 3.5-5. mmol/L Normal 1 K 4.0 Result Comment: Moderate Hemolysis, Result may be falsely increased. LAB L501.5900 98-107 mmol/L High CL 114 LAB L501.6100 21.0-32.0 mmol/L Low CO2 13.0 LAB L501.6200 5-15 High GAP 16 Performed By: #### L500.2500 #### [facility] [address] [place], [address] BEDSIDE GLUCOSE Collected: 05/10/2018 Status: F Source: [place] 9:04 AM [facility] REPOSITORY TYPE CODE TESTS RESULT OUT OF REFERENCE UNITS RANGE LAB L501.080 70-110 mg/dL High BEDSIDE GLU 239 Result Comment: MANAGEMENT OF PATIENT CARE PER NURSING PROTOCOL Performed By: #### L501.080 #### [facility] Point of Care [address] [place] [address] BEDSIDE GLUCOSE Collected: 05/10/2018 Status: F Source: [place] 8:04 AM [facility] REPOSITORY TYPE CODE TESTS RESULT OUT OF REFERENCE UNITS RANGE LAB L501.080 70-110 mg/dL High BEDSIDE GLU 304 Result Comment: MANAGEMENT OF PATIENT CARE PER NURSING PROTOCOL Performed By: #### L501.080 #### [facility] Point of Care [address] [place] [address] BEDSIDE GLUCOSE Collected: 05/10/2018 Status: F Source: RIP 7:08 AM [facility] REPOSITORY TYPE CODE TESTS RESULT OUT OF REFERENCE UNITS RANGE LAB L501.080 70-110 mg/dL High BEDSIDE GLU 292 Result Comment: Dr Delvalle Followed Insulin Given MANAGEMENT OF PATIENT CARE PER NURSING PROTOCOL Performed By: #### L501.080 #### [facility] Point of Care [address] [place] [address] BEDSIDE GLUCOSE Collected: 05/10/2018 Status: F Source: RIP 6:08 AM [facility] REPOSITORY TYPE CODE TESTS RESULT OUT OF REFERENCE UNITS RANGE LAB L501.080 70-110 mg/dL High BEDSIDE GLU 359 Result Comment: MANAGEMENT OF PATIENT CARE PER NURSING PROTOCOL Performed By: #### L501.080 #### [facility] Point of Care [address] [place] [address] BEDSIDE GLUCOSE Collected: 05/10/2018 Status: F Source: RIP 5:12 AM [facility] REPOSITORY TYPE CODE TESTS RESULT OUT OF REFERENCE UNITS RANGE LAB L501.080 70-110 mg/dL High BEDSIDE GLU 396 Result Comment: MANAGEMENT OF PATIENT CARE PER NURSING PROTOCOL Performed By: #### L501.080 #### [facility] Point of Care [address] [facility] [place] [address] CBC-COMPLETE BLOOD CNT Collected: 05/10/2018 Status: F Source: RIP NO DIFF 5:10 AM [facility] REPOSITORY TYPE CODE TESTS RESULT OUT OF RANGE REFERENCE UNITS LAB L100.1000 4.4-11.0 K/mm3 High WBC 15.1 LAB L100.1200 4.6-6.2 M/mm3 Normal RBC 4.84 LAB L100.1300 13.0-16.5 g/dl Normal HGB 15.5 LAB L100.1400 40-54 % Normal HCT 45.2 LAB L100.1500 80-94 fL Normal MCV 93.4 LAB L100.1600 27.0-32.0 pg Normal MCH 32.0 LAB L100.1700 32-36 g/gl Normal MCHC 34.3 LAB L100.1810 11.6-14.6 % Normal RDW CV 14.5 LAB L100.1820 35.1-43.9 fl High RDW SD 48.2 LAB L100.1900 150-450 K/mm3 Normal PLT 325 LAB L100.2000 6.2-12.0 fl Normal MPV 9.4 Performed By: #### L100.0500 #### [facility] [address] [place], [address] PHOSPHORUS Collected: 05/10/2018 Status: F Source: RIP 5:10 AM [facility] REPOSITORY TYPE CODE TESTS RESULT OUT OF RANGE REFERENCE UNITS LAB L501.2300 2.5-4.9 mg/dL Normal PHOS 3.3 Performed By: #### L501.2300 #### [facility] [address] [place], [address] BASIC METABOLIC Collected: 05/10/2018 Status: F Source: RIP PROFILE (BMP) 5:10 AM [facility] REPOSITORY Order Comment: SPECIMEN IS MODERATELY LIPEMIC SOME RESULTS MAY BE AFFECTED. TYPE CODE TESTS RESULT OUT OF RANGE REFERENCE UNITS LAB L501.0100 74-106 mg/dL High GLU 435 Result Comment: Glucose result greater than or equal to 200 mg/dL suggests DIABETES MELLITUS per A.D.A. criteria. Please note revised GLUCOSE reference range effective 2017. LAB L501.1000 7-18 mg/dL Normal BUN 14 LAB L501.1100 0.70-1.30 mg/dL Normal CREAT,SERUM 1.25 Result Comment: The validity of the calculated GFR AND GFRAA in patients over 70 years has not been determined. Clinical correlation is essential. LAB L501.1110 >60 mL/min Normal EST GFR 79 Result Comment: Non- GFR Calc LAB L501.1115 >60 mL/min Normal EST GFR - AA 95 Result Comment: GFR Calc LAB L501.1255 ml/min Normal Estimated CRCL 78.25 LAB L501.1300 10-20 RATIO Normal BUN/CRE 11.2 LAB L501.2200 8.5-10 mg/dL Low .1 CA 7.5 LAB L501.5300 136-14 mmol/L Normal 5 NA 141 LAB L501.5600 3.5-5. mmol/L Normal 1 K 4.8 LAB L501.5900 98-107 mmol/L High CL 110 LAB L501.6100 21.0-3 mmol/L Low 2.0 CO2 alert 7.0 Result Comment: Critical Result(s) Called at: 06:40:35 05/10/2018 by: Pipo Cleveland RN (ICU). LAB L501.6200 5-15 High GAP 24 Performed By: #### L500.2500, L500.3400, L501.5200 #### [facility] [address] [place], [address] LIVER PROFILE Collected: 05/10/2018 Status: F Source: [place] 5:10 AM [facility] REPOSITORY Order Comment: SPECIMEN IS MODERATELY LIPEMIC SOME RESULTS MAY BE AFFECTED. TYPE CODE TESTS RESULT OUT OF RANGE REFERENCE UNITS LAB L501.1500 6.4-8.2 g/dL Normal T PROT 7.3 LAB L501.1800 3.2-5.0 g/dL Normal ALB 3.6 LAB L501.1950 2.2-4.2 g/dL Normal GLOB 3.7 LAB L501.4100 15-37 U/L High AST 83 LAB L501.4305 45-117 U/L High ALK P 161 LAB L501.4405 16-61 U/L High ALT 158 LAB L501.4600 0.20-1.00 mg/dL Normal T BILI 0.70 LAB L501.4700 0.00-0.30 mg/dL Normal D BILI 0.13 Performed By: #### L500.2500, L500.3400, L501.5200 #### [facility] [address] [place], [address] MAGNESIUM Collected: 05/10/2018 Status: F Source: [place] 5:10 AM [facility] REPOSITORY Order Comment: SPECIMEN IS MODERATELY LIPEMIC SOME RESULTS MAY BE AFFECTED. TYPE CODE TESTS RESULT OUT OF RANGE REFERENCE UNITS LAB L501.5200 1.6-2.6 mg/dL Normal MG 2.1 Performed By: #### L500.2500, L500.3400, L501.5200 #### [facility] [address] [place], [address] BEDSIDE GLUCOSE Collected: 05/10/2018 Status: F Source: [place] 4:12 AM [facility] REPOSITORY TYPE CODE TESTS RESULT OUT OF REFERENCE UNITS RANGE LAB L501.080 70-110 mg/dL High alert BEDSIDE GLU 492 Result Comment: Dr Orders Followed Insulin Given MANAGEMENT OF PATIENT CARE PER NURSING PROTOCOL Performed By: #### L501.080 #### [facility] Point of Care [address] [place] [address] BLOOD GASES BY CPS Collected: 05/10/2018 Status: F Source: [place] 3:38 AM [facility] TYPE CODE TESTS RESULT OUT OF RANGE REFERENCE UNITS LAB L9000.9990 Normal BLD GAS TYPE ART LAB L9001.1000 Normal SITE L Radial LAB L9001.1010 Normal IFEOMA TEST POS LAB L9001.1050 O2 Normal Delivery Dev Room Air LAB L9001.1104 Normal Results To HOSP MD LAB L9001.1105 Normal Time Given 325 LAB L9001.1110 7.35-7.45 Low pH alert - I-STAT 6.96 LAB L9001.1310 75-100 mmHG High PO2 I-STAT 133 LAB L9001.2300 22-26 mmol/L Low HCO3 ISTAT 2.1 LAB L9001.2400 -2 to +2 mmol/L Low BE ISTAT -30 LAB L9001.2415 mmol/L Normal TOTAL CO2 < 5 ISTAT LAB L9001.2425 95-99 % Normal SO2 ISTAT 97 LAB L9001.1210 35-45 mmHg Low alert pCO2 - ISTAT 9.1 Performed By: #### L9000.0800 #### [facility] Point of Care [address] [place] [address] EMERGENCY DEPARTMENT Observed: 05/10/2018 Status: F Source: [place] SUMMARY 3:35 AM [facility] Medical Records Department [address] [place] [address] Emergency Department Summary 05/09/18 2327 MR#: [id number] Acct: [id number] Name: VAHID WANG Rep #: [id number] : 2000 17 From: Staci Glover MD PCP: Scott Braden MD Status: ADM IN - ER Visit Summary Date of Service: 05/09/18 Chief Complaint: Dizzy History of Present Illness: The patient is a 17 M who reports feeling dizzy and stressed at work this evening. He vomited a few times. He then developed abdominal pain across his upper abdomen and heavy breathing while walking home. He reports seeing black spots that affects both his eyes. He does have a history of diabetes and DKA. He reports good blood sugar control recently. He does state he last ate at breakfast this morning. It is not normal for him to skip meals throughout the day. He states he did take his insulin. Physical Examination: Blood pressure is 146/92, temperature 97.5, heart rate 136, respiratory rate 30, pulse ox 100% on room air. Head neck examination is grossly unremarkable. Heart is tachycardic and regular. Lung sounds clear. He is tachypneic. Abdomen is soft with tenderness in the epigastric and right upper quadrant region. He has hypoactive bowel sounds. Test Results: EKG is sinus tach at 108. CBC was hemoglobin concentrated at 16.8. Chemistry studies reveal sodium of 130 with a glucose of 676. Bicarb is 6, anion gap is 29. Creatinine is 1.36. LFTs are significant for an alk phos of 186, ALT 196, AST of 88. Lipase is normal. Serum acetone is large. Emergency Department Course and Treatment: Patient was given IV fluids, Phenergan, Zofran,. Insulin drip was started once 2 L of IV fluids were in. Patient has been admitted and will be monitored in the ICU. Treatment Plan: [] Disposition: Admit Impression: DKA This note was generated with Poxel dictation software. It may contain incorrect words, spelling, and punctuation that were not noted in review of the chart prior to signing ED Disposition - Plan for ED Patient: Chief Complaint: Nausea/Vomiting What to do if you have Problems For any increased pain, shortness of breath, bleeding, nausea or vomiting, chest pain, or any unexpected problems, contact your Primary Care Provider. Call [facility] ([phone]) or report to the closest Emergency Room. Call 911 if necessary. 05/10/18 8944 <Electronically signed by Staci Glover MD> Date Staci Glover MD Cosigner Signature (If Indicated): Date CC: Scott Braden MD BASIC METABOLIC Collected: 05/10/2018 Status: F Source: RIP PROFILE (BMP) 3:30 AM [facility] REPOSITORY TYPE CODE TESTS RESULT OUT OF RANGE REFERENCE UNITS LAB L501.0100 74-106 mg/dL High alert GLU 561 Result Comment: Critical Result(s) Called at: 03:59:42 05/10/2018 by: SANDRA OSWALD RN IN ICU Glucose result greater than or equal to 200 mg/dL suggests DIABETES MELLITUS per A.D.A. criteria. Please note revised GLUCOSE reference range effective 2017. LAB L501.1000 7-18 mg/dL Normal BUN 17 LAB L501.1100 0.70-1.30 mg/dL Normal CREAT,SERUM 1.25 Result Comment: The validity of the calculated GFR AND GFRAA in patients over 70 years has not been determined. Clinical correlation is essential. LAB L501.1110 >60 mL/min Normal EST GFR 79 Result Comment: Non- GFR Calc LAB L501.1115 >60 mL/min Normal EST GFR - AA 95 Result Comment: GFR Calc LAB L501.1255 ml/min Normal Estimated CRCL 78.25 LAB L501.1300 10-20 RATIO Normal BUN/CRE 13.6 LAB L501.2200 8.5-10 mg/dL Low .1 CA 7.5 LAB L501.5300 136-14 mmol/L Normal 5 NA 139 LAB L501.5600 3.5-5. mmol/L Normal 1 K 4.3 Result Comment: Moderate Hemolysis, Result may be falsely increased. LAB L501.5900 98-107 mmol/L Normal CL 107 LAB L501.6100 21.0-32.0 mmol/L Low alert CO2 6.0 Result Comment: Critical Result(s) Called at: 03:59:42 05/10/2018 by: SANDRA OSWALD RN IN ICU LAB L501.6200 5-15 High GAP 26 Performed By: #### L500.2500, L501.2300, L501.5200 #### [facility] [address] [place], [address] PHOSPHORUS Collected: 05/10/2018 Status: F Source: RIP 3:30 AM [facility] REPOSITORY TYPE CODE TESTS RESULT OUT OF RANGE REFERENCE UNITS LAB L501.2300 2.5-4.9 mg/dL Normal PHOS 3.8 Performed By: #### L500.2500, L501.2300, L501.5200 #### [facility] [address] [place], [address] MAGNESIUM Collected: 05/10/2018 Status: F Source: RIP 3:30 AM [facility] REPOSITORY TYPE CODE TESTS RESULT OUT OF RANGE REFERENCE UNITS LAB L501.5200 1.6-2.6 mg/dL Normal MG 2.0 Result Comment: Moderate Hemolysis, Result may be falsely increased. Performed By: #### L500.2500, L501.2300, L501.5200 #### [facility] [address] [place] [address], [address] HEMOGLOBIN A1C Collected: 05/10/2018 Status: F Source: RIP 3:30 AM [facility] REPOSITORY TYPE CODE TESTS RESULT OUT OF RANGE REFERENCE UNITS LAB L501.9985 4.2-6.3 % High HGB A1C 13.0 Performed By: #### L501.9985 #### [facility] [place], [address] BEDSIDE GLUCOSE Collected: 05/10/2018 Status: F Source: [place] 3:16 AM [facility] REPOSITORY TYPE CODE TESTS RESULT OUT OF REFERENCE UNITS RANGE LAB L501.080 70-110 mg/dL High alert BEDSIDE GLU > 500 Result Comment: Insulin Given Dr Orders Followed MANAGEMENT OF PATIENT CARE PER NURSING PROTOCOL Performed By: #### L501.080 #### [facility] Point of Care [address] [place] [address] M R STAPH AUREUS Collected: 05/10/2018 Status: F Source: [place] DNA BY PCR 3:00 AM [facility] REPOSITORY TYPE CODE TESTS RESULT OUT OF RANGE REFERENCE UNITS LAB L8200.1100 Negative Normal MRSA Negative RESULT Performed By: #### L8200.1000 #### [facility] [address] [place], [address] HISTORY AND PHYSICAL Observed: 05/10/2018 Status: F Source: [place] EXAM 2:36 AM [facility] REPOSITORY [facility] Medical Records Department [address] [place] [address] History and Physical 05/10/18 0122 MR#: [id number] Acct: [id number] Name: VAHID WANG Rep #: [id number] : 2000 17 From: Mei Polk PCP: Scott Braden MD Status: ADM IN Y Location: ICU [id number] Problem List (1) DKA (diabetic ketoacidoses) Status: Acute Qualifiers: Diabetes mellitus type: type 1 Diabetes mellitus complication detail: without coma Qualified Code(s): E10.10 - Type 1 diabetes mellitus with ketoacidosis without coma (2) Anxiety and depression Status: Chronic (3) GERD (gastroesophageal reflux disease) Status: Chronic Qualifiers: Esophagitis presence: esophagitis presence not specified Qualified Code(s): K21.9 - Gastro-esophageal reflux disease without esophagitis (4) Fatty liver Status: Chronic (5) DM I (diabetes mellitus, type I), uncontrolled Status: Chronic History of Present Illness Date of Admission: 05/10/18 Chief Complaint: Lightheadedness, dizziness, nausea and emesis, generalized abdominal pain. The patient is a 17 y/o M w/ PMHx: Diabetes mellitus type I w/ serial admissions for DKA, Prior Noted Elevated Liver Enzymes of unclear etiology following w/ [facility], Anxiety and Depression w/ prior suicidal ideation admissions following w/ Crisis Center who presents to the [facility] ED on 05/10/18 with lightheadedness, dizziness, nausea and emesis as well as generalized abdominal pain. He notes recently improved BS control. He states he has been skipping meals regularly but has been compliant with insulin. On most recent discharge 02/12/18 patient was arranged to be evaluated by Dr. 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 Work-up in the ED included T 97.5, HR 136-->114, BP 146.92-->136/75, RR 30-->19, 100% on RA, CBC w/ WBC 9.4, Hgb 16.8, Plts 417 without marked shift, CMP w/ sodium 130, chloride 95, carbon dioxide 6, anion gap 29, BUN/creatinine 18/1.36, glucose 676, AST/ALT 88/196, alk phos 186, lipase 33, acetone large. In the ED patient administered NS 3L bolus, phenergan IV, zofran IV, insulin drip initiated. Past Medical History Past Medical History (Chronic Problems): Chronic Problems (Last Reviewed 03/20/18 @ 15:05 by Amanda Wilkinson) Anxiety and depression (Chronic) GERD (gastroesophageal reflux disease) (Chronic) Fatty liver (Chronic) Suicidal ideations (Chronic) DM I (diabetes mellitus, type I), uncontrolled (Chronic) Medical History: Medical History (Last Reviewed 03/20/18 @ 15:05 by Amanda Wilkinson) Anxiety disorder F41.9 Back problem M53.9 Bone fracture T14.8XXA Diabetes type 1, uncontrolled E10.65 Dx : age 2 Last exacerbation : DKA : 01/31 Hypoglycemic episode : never ER visit : 01/31 Hearing problem H91.90 Liver disease K76.9 Seizure R56.9 Vision problem H54.7 Allergies No Known Allergies Allergy (Verified 05/09/18 23:11) Home Medications: Ambulatory Orders Medication Instructions Recorded Surgical History: Surgical History (Last Reviewed 03/20/18 @ 15:05 by Amanda Wilkinson) S/p bilateral myringotomy with tube placement Z96.22 Surgical History: - - BL ear tubes. Psychiatric History: Anxiety, Depression, Prior suicide attempt Lives: With Family - Lives with his grandmother. Smoking Status: Never smoker Tobacco Use: Non-smoker Alcohol: None Drugs: None - *Family History Maternal Family History: Family History (Last Reviewed 03/20/18 @ 15:05 by Amanda Wilkinson) Mother Kidney disease History Items: Heart Disease, Renal Disease Paternal Family History: Family History (Last Reviewed 03/20/18 @ 15:05 by Amanda Wilkinson) Mother Kidney disease History Items: Heart Disease, - - Paternal family males w/ frequent hearing disorder. Review of Systems Constitutional: Reports: Anorexia, Malaise, Weakness, Fatigue. Denies: Chills, Fever, Weight Change HEENT: Denies: Head Aches, Sinus Congestion, Sinus Drainage Cardiovascular: Denies: Chest Pain, Palpitations Respiratory: Denies: Cough, Shortness of breath at rest, Sputum production Gastrointestinal: Reports: Abdominal Pain, Nausea, Vomiting Genitourinary: Denies: Dysuria Musculoskeletal: Denies: Joint Pain, Joint Tenderness Skin: Denies: Rash, Wounds Neurological: Denies: Numbness, Tingling, Focal weakness Psychiatric: Reports: Anxiety, Depression. Denies: Homicidal Ideations, Suicidal Ideations Hematologic/ Lymphatic: Denies: Easy Bruising, Easy Bleeding VTE Information - Inpt Only VTE Present on Admission: No VTE Mechan Device Prophylaxis: SCD's VTE Pharm Prophylaxis ordered?: Yes Subjective: Laying in the ED bed, ill appearing, increased RR, lethargic. Objective: Physical Examination: General: awakens to stimuli, lethargic, intermittently alert, oriented x 3 once alert, remains cooperative, laying in the ED bed, increased RR, ill appearing. Skin: normal color, turgor, no icterus, cyanosis. HEENT: AT/NC, EOMI, PERRLA, dry MM, injected sclera BL, no carotid bruits or JVD noted. Lungs: Diminished BS BL bases, increased RR, accessory muscle usage, no rales, ronchi or wheezing. Heart: Tachycardic with regular rhythm; no gallop, rub audible. Abdomen: soft, generalized TTP, ND, normal BS, + HM although difficult assessment secondary to discomfort. Extremities: no cyanosis, clubbing, or edema. Neurological: awakens to stimuli, lethargic, intermittently alert, oriented x 3 once alert, remains cooperative, laying in the ED bed, increased RR, ill appearing; cognitive function not baseline intact; pupils equally reactive to light and accomodation; cranial nerves II-XII grossly normal, moving all 4 extremities, no focal deficits, strength severely globally decreased secondary to acute presentation. Psychiatric: affect appears fatigued, lethargic, no acute evidence of depressive or anxiety feelings. - Physical Exam Vital Signs Temp Pulse Resp BP Pulse Ox 97.5 F L 114 H 19 H 136/75 H 100 05/09/18 23:08 05/10/18 00:08 05/10/18 00:08 05/10/18 00:08 05/10/18 00:08 Oxygen Delivery Method Room Air Weight: 143 lb Body Mass Index (BMI) 21.7 Finger Stick Blood Glucose 141 Laboratory Tests Past 24 Hrs Assessment/Plan All Active Problems (Last Reviewed 03/20/18 @ 15:05 by Amanda Wilkinson) DKA, type 1 (Acute) DKA (diabetic ketoacidoses) (Acute) The patient is a 17 y/o M w/ PMHx: Diabetes mellitus type I w/ serial admissions for DKA, Prior Noted Elevated Liver Enzymes of unclear etiology, Anxiety and Depression w/ prior suicidal ideation admissions following w/ Crisis Center who presents to the [facility] ED on 05/10/18 with lightheadedness, dizziness, nausea and emesis as well as generalized abdominal pain. (1) DKA w/ Diabetes mellitus type I: Patient started on an insulin drip in the ED. Will admit to the ICU per protocol, continue on insulin drip, check serial K+, glucose w/ IVF changes pending these levels, serial chemistry, obtain mag, phos daily w/ repletion as needed, transition to home SC regimen when gap closed w/ overlap on drip, nutrition consultation. Encouraged diet and insulin regimen compliance. HgbA1c pending. (2) Acute kidney injury: Secondary to acute presentation, #1 DKA. Admission BUN/Cr BUN/creatinine 18/1.36, prior baseline creatinine noted to be 0.7. Continue to aggressively hydrate as noted, repeat BMPs serially with DKA presentation on insulin drip as noted. (3) Hx Elevated Liver Enzymes: 07/18/17 liver US obtained during DKA admission with elevated enzymes at that time with noted elongated appearance of the right hepatic lobe suggestive of a Isaias's lobe, enlarged liver, mild fatty infiltration. 01/24/2018 AST/ALT 95/134. 05/10/18 admission AST/ALT 88/196. Repeat hepatic profile in AM. (4) Elevated BP without HTN: Elevated BP above goal, likely secondary to his acute presentation, continue to monitor and if does remain above goal once DKA resolved may need to consider low dose ACEI. (5) Anxiety and Depression: Following w/ Crisis center, prior admissions for suicidal ideations. Not on regimen despite his history, recommend continued evaluation per his therapist. (6) GERD: Protonix. (7) DVT Prophylaxis: SCDs, heparin. Code Visit Inpatient E AND M: [id number] Init Hosp L3 05/10/18 0236 <Electronically signed by Mei Polk > Date Mei Polk Cosigner Signature: Date (if applicable) CC: Scott Braden MD; Mei Polk Signed BASIC METABOLIC Collected: 05/10/2018 Status: F Source: [place] PROFILE (BMP) 2:35 AM [facility] REPOSITORY TYPE CODE TESTS RESULT OUT OF RANGE REFERENCE UNITS LAB L501.0100 74-106 mg/dL High alert GLU 661 Result Comment: Critical Result(s) Called at: 03:06:56 05/10/2018 by: SANDRA CLEMENT TO SCHUYLER AVENDANO IN ED Glucose result greater than or equal to 200 mg/dL suggests DIABETES MELLITUS per A.D.A. criteria. Please note revised GLUCOSE reference range effective 2017. LAB L501.1000 7-18 mg/dL Normal BUN 17 LAB L501.1100 0.70-1.30 mg/dL Normal CREAT,SERUM 1.23 Result Comment: The validity of the calculated GFR AND GFRAA in patients over 70 years has not been determined. Clinical correlation is essential. LAB L501.1110 >60 mL/min Normal EST GFR 80 Result Comment: Non- GFR Calc LAB L501.1115 >60 mL/min Normal EST GFR - AA 97 Result Comment: GFR Calc LAB L501.1255 ml/min Normal Estimated CRCL 88.62 LAB L501.1300 10-20 RATIO Normal BUN/CRE 13.8 LAB L501.2200 8.5-10 mg/dL Low .1 CA 8.0 LAB L501.5300 136-14 mmol/L Low 5 NA 133 LAB L501.5600 3.5-5. mmol/L High 1 K 5.2 Result Comment: Moderate Hemolysis, Result may be falsely increased. LAB L501.5900 98-107 mmol/L Normal CL 101 LAB L501.6100 21.0-32.0 mmol/L Low alert CO2 5.0 Result Comment: Critical Result(s) Called at: 03:06:56 05/10/2018 by: SANDRA CLEMENT TO SCHUYLER AVENDANO IN ED LAB L501.6200 5-15 High GAP 27 Performed By: #### L500.2500 #### [facility] [address] [place], [place], [address] BEDSIDE GLUCOSE Collected: 05/10/2018 Status: F Source: [place] 2:09 AM [facility] REPOSITORY TYPE CODE TESTS RESULT OUT OF REFERENCE UNITS RANGE LAB L501.080 70-110 mg/dL High alert BEDSIDE GLU > 500 Result Comment: Orders Followed MANAGEMENT OF PATIENT CARE PER NURSING PROTOCOL Performed By: #### L501.080 #### [facility] Point of Care [address] [place] [address] BEDSIDE GLUCOSE Collected: 05/10/2018 Status: F Source: RIP 1:38 AM [facility] REPOSITORY TYPE CODE TESTS RESULT OUT OF REFERENCE UNITS RANGE LAB L501.080 70-110 mg/dL High alert BEDSIDE GLU > 500 Result Comment: Orders Followed MANAGEMENT OF PATIENT CARE PER NURSING PROTOCOL Performed By: #### L501.080 #### [facility] Point of Care [address] [place] [address] CBC W/DIFF, AUTOMATED Collected: 05/09/2018 Status: C Source: RIP 12:40 AM [facility] REPOSITORY TYPE CODE TESTS RESULT OUT OF RANGE REFERENCE UNITS LAB L100.1000 4.4-11.0 K/mm3 Normal WBC 9.4 LAB L100.1200 4.6-6.2 M/mm3 Normal RBC 5.22 LAB L100.1300 13.0-16.5 g/dl High HGB 16.8 LAB L100.1400 40-54 % Normal HCT 48.6 LAB L100.1500 80-94 fL Normal MCV 93.1 LAB L100.1600 27.0-32.0 pg High MCH 32.2 LAB L100.1700 32-36 g/gl Normal MCHC 34.6 LAB L100.1810 11.6-14.6 % Normal RDW CV 14.1 LAB L100.1820 35.1-43.9 fl High RDW SD 47.2 LAB L100.1900 150-450 K/mm3 Normal PLT 417 LAB L100.2000 6.2-12.0 fl Normal MPV 9.8 LAB L100.2100 47-70 % Normal NEUT% 56.5 LAB L100.2200 19-41 % Normal LY% 33.5 LAB L100.2300 0-10 % Normal MONO% 6.6 LAB L100.2400 0-5 % Normal EO% 0.4 LAB L100.2500 0-1 % Normal BASO% 0.7 LAB L100.2550 0.0-0.9 % High IM GRAN % 2.300 Result Comment: IG% - Immature Granulocytes (promyelocytes, myelocytes and metamyelocytes) > 1% indicates that a LEFT SHIFT is Present. LAB L100.2620 2.0-7.7 X10 3/uL Normal Absolute Neut 5.3 LAB L100.2720 0.83-4.51 X10 3/ul Normal Absolute Lymph 3.16 LAB L100.9900 Normal PATH REV Reviewed Result Comment: Neutrophilic left shift. Clinical correlation necessary. Wally Barroso M.D. 05/10/18 AMENDED REPORT 05/10/18 1329 PATH REV previously reported as: Jeannette leroy Performed By: #### L100.0100 #### [facility] [address] [place], [address] ACETONE SERUM Collected: 05/09/2018 Status: F Source: RIP 12:40 AM [facility] REPOSITORY TYPE CODE TESTS RESULT OUT OF REFERENCE UNITS RANGE LAB L501.6900 NEG High ACETONE SERUM LARGE Performed By: #### L501.6900 #### [facility] [address] [place], [address] BASIC METABOLIC Collected: 05/09/2018 Status: F Source: [place] PRO[place] (BMP) 12:40 AM [facility] REPOSITORY TYPE CODE TESTS RESULT OUT OF RANGE REFERENCE UNITS LAB L501.0100 74-106 mg/dL High alert GLU 676 Result Comment: Critical Result(s) Called at: 00:26:34 05/10/2018 by: SANDRA ANGELA RN IN ED Glucose result greater than or equal to 200 mg/dL suggests DIABETES MELLITUS per A.D.A. criteria. Please note revised GLUCOSE reference range effective 2017. LAB L501.1000 7-18 mg/dL Normal BUN 18 LAB L501.1100 0.70-1.30 mg/dL High CREAT,SERUM 1.36 Result Comment: The validity of the calculated GFR AND GFRAA in patients over 70 years has not been determined. Clinical correlation is essential. LAB L501.1110 >60 mL/min Normal EST GFR 72 Result Comment: Non- GFR Calc LAB L501.1115 >60 mL/min Normal EST GFR - AA 87 Result Comment: GFR Calc LAB L501.1255 ml/min Normal Estimated CRCL 80.15 LAB L501.1300 10-20 RATIO Normal BUN/CRE 13.2 LAB L501.2200 8.5-10 mg/dL Normal .1 CA 8.8 LAB L501.5300 136-14 mmol/L Low 5 NA 130 LAB L501.5600 3.5-5. mmol/L Normal 1 K 4.6 Result Comment: Moderate Hemolysis, Result may be falsely increased. LAB L501.5900 98-107 mmol/L Low CL 95 LAB L501.6100 21.0-32.0 mmol/L Low alert CO2 6.0 Result Comment: Critical Result(s) Called at: 00:26:34 05/10/2018 by: SANDRA ANGELA RN IN ED LAB L501.6200 5-15 High GAP 29 Performed By: #### L500.2500, L500.3400, L501.2450 #### [facility] [address] [place], [address] LIVER PROFILE Collected: 05/09/2018 Status: F Source: [place] 12:40 AM [facility] REPOSITORY TYPE CODE TESTS RESULT OUT OF RANGE REFERENCE UNITS LAB L501.1500 6.4-8.2 g/dL Normal T PROT 8.2 LAB L501.1800 3.2-5.0 g/dL Normal ALB 4.0 LAB L501.1950 2.2-4.2 g/dL Normal GLOB 4.2 LAB L501.4100 15-37 U/L High AST 88 Result Comment: Moderate Hemolysis, Result may be falsely increased. LAB L501.4305 45-117 U/L High ALK P 186 LAB L501.4405 16-61 U/L High ALT 196 LAB L501.4600 0.20-1.00 mg/dL Normal T BILI 0.90 LAB L501.4700 0.00-0.30 mg/dL Normal D BILI 0.15 Performed By: #### L500.2500, L500.3400, L501.2450 #### [facility] [address] [place], [place], [address] LIPASE Collected: 05/09/2018 Status: F Source: [place] 12:40 AM [facility] REPOSITORY TYPE CODE TESTS RESULT OUT OF REFERENCE UNITS RANGE LAB L501.2450 73-393 U/L Low LIPASE 33 Performed By: #### L500.2500, L500.3400, L501.2450 #### [facility] [address] [place], [address] PROTIME Collected: 04/10/2018 Status: F Source: [place] 3:31 PM [facility] [place] REPOSITORY TYPE CODE TESTS RESULT OUT OF RANGE REFERENCE UNITS LAB PSEC 9.7-13.0 sec PT Sec 9.7 LAB INR 0.9-1.3 Low PT INR <0.9 Result Comment: Vitamin K Antagonist (VKA) Therapeutic Range: INR 2 to 3 (Target INR of 2.5) Note: For patients treated with VKA drugs, such as warfarin, the [place] [employer] 2012 Guideline recommends a therapeutic INR range of 2 to 3 (target INR of 2.5). This recommendation includes high-risk patients with antiphospholipid syndrome with previous arterial or venous thromboembolism, current-generation mechanical or bioprosthetic aortic heart valve replacement. Note: Patients with mechanical aortic valve replacement and additional risk factors for thromboembolic events (atrial fibrillation, previous thromboembolism, LV dysfunction, hypercoagulable conditions) or an older generation mechanical AVR (i.e., ball in-Cage) or any mechanical MVR should have a INR therapeutic range of 2.5 to 3.5 (target INR of 3). Guyatt GH, et al. Chest 2012, 141:7S-47S Flavio RA, et al. [facility] 2017, 70: 252-289 Result rechecked. Sample checked for a clot. Performed By: #### PT, CERULO, AAT, CK, HFP #### [facility] [employer] [address], [place] [address] CERULOPLASMIN Collected: 04/10/2018 Status: F Source: [place] 3:31 PM [facility] REPOSITORY TYPE CODE TESTS RESULT OUT OF REFERENCE UNITS RANGE LAB CERULO 15-30 mg/dL Ceruloplasmin 25 Performed By: #### PT, CERULO, AAT, CK, HFP #### [facility] [employer] [address], [place] [address] ALPHA 1 ANTITRYPSIN Collected: 04/10/2018 Status: F Source: [place] 3:31 PM [facility] REPOSITORY TYPE CODE TESTS RESULT OUT OF REFERENCE UNITS RANGE LAB AAT 90-200 mg/dL Low Alpha 1 antitrypsin 64 Performed By: #### PT, CERULO, AAT, CK, HFP #### [facility] [employer] [address], [place] [address] CK Collected: 04/10/2018 Status: F Source: [facility] 3:31 PM [facility] REPOSITORY TYPE CODE TESTS RESULT OUT OF RANGE REFERENCE UNITS LAB CK 51-298 U/L CK 81 Result Comment: Please note the updated, gender-specific reference range for this test (effective 06/30/2016). Performed By: #### PT, CERULO, AAT, CK, HFP #### [facility] [employer] [address], [place] [address] HEPATIC FUNCTN PANEL Collected: 04/10/2018 Status: F Source: [place] 3:31 PM [facility] REPOSITORY TYPE CODE TESTS RESULT OUT OF REFERENCE UNITS RANGE LAB ALB 3.9-4.9 g/dL Low Albumin 3.8 LAB TBIL 0.2-1.3 mg/dL Bilirubin, Total 0.3 LAB CBIL <0.2 mg/dL Bilirubin,Conjuga <0.2 kyra LAB ALKP 36-108 U/L Alkaline High Phosphatase 167 LAB AST 14-40 U/L AST High 112 LAB ALT 10-54 U/L ALT High 95 LAB TP 6.3-8.0 g/dL Low Protein, Total 6.2 Performed By: #### PT, CERULO, AAT, CK, HFP #### [facility] [address] [place], [place] [address] ALPHA-1 ANTITRYP GEN Collected: 04/10/2018 Status: F Source: [place] 3:31 PM [facility] REPOSITORY TYPE CODE TESTS RESULT OUT OF REFERENCE UNITS RANGE LAB HA1INT Result: Alpha-1 Heterozygous for Antitryp Int the S allele of SERPINA1 (PI*MS) Result Comment: Interpretation: DNA testing indicates that this patient has one copy of the S allele (c.863A>T, p.Aru842Xty [RefSeq [id number][) of SERPINA1, the alpha-1 antitrypsin gene. Guidance: This result should be interpreted in the appropriate clinical context. Individuals with PI*MS genotype generally have serum alpha-1 antitrypsin levels between 86-218 mg/dL and pulmonary and he patic disease is not expected. If this patient has a serum alpha-1 antitrypsin level that is not consistent with this genotype and alpha-1 antitrypsin deficiency caused by a rare variant is clinically suspected, consider performing SERPINA1 gene sequencing. (NOTE) Method: Isolated genomic DNA from the patient's blood specimen was tested for four variants in the alpha-1 antitrypsin gene, SERPINA1 [RefSeq [id number]]. These include the two most common pathogenic variants, the S (c.863A>T, p.Aru406Fxx) and Z (c.1096G>A, p.Ezt765Yzh) alleles, as well as the rarer F (c.739C>T, p.Ziv967Uin) and I (c.187C>T, p.Mnq20Fnr) alleles. Targeted analysis was performed using [employer]Mix and [employer] melt curve assays to identify the specified variants. Limitations: 1. This Laboratory Developed Test (LDT) is designed to detect the S, Z, F, and I alleles. The S and Z alleles comprise 95% of non-wild type genotypes. 2. Uncommon variants or single nucleotide polymorphisms may affect binding of LightMix or LightSNiP probes and may result in a false negative, false positive or indeterminate result. 3. Absence of the S, Z, F, and I alleles is interpreted as PI*MM genotype. However, there are over 100 known rare variants of SERPINA1 that are not detected by this LDT. Therefore, correlation of the genotype with the patient's serum alpha-1 antitrypsin level and clinical manifestations is strongly recommended. Frequency of S, Z, F, and I Alleles in the general population: S: Heterozygous 2%; Homozygous 0.04% Z: Heterozygous 1%; Homozygous 0.01% F: Heterozygous 0.3%; Homozygous 0.001% I: Heterozygous 0.1%; Homozygous unknown Allele frequency information was gathered from the [employer] (Ex[employer]) and includes data from , , , and populations (supporting data in references). This LDT was developed and its performance characteristics determined by [facility]'s [facility] ([facility]). It has not been cleared or approved by the FDA. [facility] is regulated under CLIA as qualified to perform high-complexity testing. This LDT is used for clinical purposes. It should not be regarded as investigational or for research. References: [place] [employer] and Respiratory Society. [place] [employer] Society/ Respiratory Society statement: Standards for the diagnosis and management of individuals with alpha-1 antitrypsin deficiency. Am J Respir Crit Care Med. 2003 Apr 16; 168(7):818-900. Laura JA, Stefan ON, Ed ER, Yamilka DG. a1-Antitrypsin phenotypes and associated serum protein concentrations in a large clinical population. Chest. 2013 Oct;143(4):1000-8. Justin A, [place] NA, Aristeo CR, Katia FJ, Gama SJ, Jillian AF. Molecular characterisation of three alpha-1 antitrypsin deficiency variants: proteinase inhibitor (Pi) nullcardiff (Jof193----Rvd); PiMmalton (Ffu22----hvrgqbub) and Pil (Mtm91----Pou). Hum Delicia. 1989 Jun;84(1):55-8. Donald Richardson, et al. Analysis of protein-coding genetic variation in 60,706 humans. Nature. 2016 Feb 18;536(8187):548-74. http//exac.broadinstitute.org/ Darlene SOW and Theodore SETH. Clinical practice. Alpha-1 antitrypsin deficiency. N Engl J Med. 2008Jan 08;36026):5049-32. Naresh NJ, Mayur F, Jamila SETH. The significance of the F variant of alpha-1 antitrypsin and unique case report of a PiFF homozygote. BMC Pulm Med. 2014 Feb 20;14:132. Xin BARGER, Kaylah Aguirre. Consise Clinical Review: alpha-1 antitrypsin deficiency. Am J Respir Crit Care Med 2012; 185:246-259. Xin BARGER, Edie BRIAN, and Kaylah Aguirre. Alpha-1 Antitrypsin Deficiency. 2005May 12 [Updated 2017 August 04]. In: Tru RA, Scott MP, Samuel TO, et al., editors. GeneRevAltruikws [Internet]. [place] ([place]): [employer]; 4595-5041. Available from: http://www.ncbi.nlm.nih.gov/books/LOK0594/ Performed By: #### HA1AT #### [facility] [address], [place] [address] PROGRESS Observed: 04/10/2018 Status: COMPLETED Source: [place] 2:48 PM [facility] REPOSITORY HNO ID: [id number] Author: Gregg Graham Service: (none) Author Type: Physician Type: Progress Notes Filed: 04/12/2018 9:24 AM Note Text: Prior Clinic Visit: 01/16/2018 Background History: Vahid Wang is a 17 year old male with past medical history of poorly controlled type 1 diabetes diagnosed at 2 years of age being seen today in pediatric GI clinic secondary to issues with hepatomegaly, elevated liver enzymes and intermittent epigastric abdominal pain associated with nausea and heart medina. He was evaluated in the past by Dr. Jimenez and had negative workup for chronic viral hepatitis and autoimmune hepatitis. Recent ultrasound in December 2017 show hepatomegaly along with hepatic steatosis. Of note, he also has poorly controlled type 1 diabetes. 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 Ultrasound cannot distinguish between glycogenic hepatopathy and hepatic steatosis. It is also possible that he may have nonalcoholic fatty liver disease in setting of poorly controlled diabetes which has been reported in patients with type 1 diabetes secondary to long-standing hyperglycemia. Fibroscan in January 2018 did show some evidence of steatosis (CAP score 313) but no fibrosis (4.5 kpa). So recommended to discuss with oceanographer geological for optimal glycemic control which should improve hepatopathy and liver enzymes. ? With regards to abdominal pain, possible causes are GERD/gastritis, stretching of the liver capsule from hepatomegaly, pancreatitis or celiac disease. So recommended to start him on Prilosec on a scheduled basis for optimal acid control. Also recommended lifestyle modifications such as avoiding spicy, greasy or acidic foods and NSAIDs. He returns today follow up. Interval History: History provided by patient. Since the last visit, he has been doing well. He has been trying to get insulin pump to obtain better glycemic control. His abdominal pain has been much better after starting Prilosec. Currently no abdominal pain, nausea or vomiting reported. No dysphagia, odynophagia or heartburns reported. He has better appetite and energy levels. Bowel movements are once daily, normal in consistency with no diarrhea or blood in stools. No jaundice, itching or easy bleeding or bruising reported. No mod disturbances or sleep pattern changes reported. Medications: Current Outpatient Prescriptions on File Prior to Visit: insulin aspart U-100 (NOVOLOG FLEXPEN U-100 INSULIN) 100 unit/mL inpn TAKE 1 UNIT FOR 5 GRAMS CARB UP TO 100 UNITS DAILY insulin glargine (BASAGLAR KWIKPEN U-100 INSULIN) 100 unit/mL (3 mL) inpn Inject 24 units AM and 24 units PM Omeprazole (PRILOSEC) 40 mg capsule Take 1 capsule by mouth once daily. glucagon, human recombinant, (GLUCAGON EMERGENCY KIT, HUMAN,) 1 mg injection use as directed, call if used blood sugar diagnostic (FREESTYLE LITE STRIPS) test strip USE TO TEST UP TO 12 TIMES A DAY DIRECTED Insulin [place], Disposable, (BD ULTRAFINE III MINI PEN) 31 gauge x 3/16 ndle use as directed 10 times daily Insulin Syringe-Needle U-100 (BD INSULIN SYRINGE HALF UNIT) 0.3 mL 31 x 5/16 syrg use as directed Lancets lancets Use as instructed No current facility-administered medications on file prior to visit. Review Of Systems: Constitutional:- No significant change in weight, no fatigue. ENDO:- Type 1 DM CVS:- No history of heart disease, No history of heart murmurs RESP:- no wheezing, frequent cough or shortness of breath GI:- See HPI NEURO:-Normal growth and development. :-negative for dysuria/micturition problems Integumentary:- Negative for lesions, rash, and itching. Musculoskeletal:- Negative for joint pains/edema Psychiatry:- negative for anxiety Hematologic/Lymphatic:-No history of anemia, bruising, bleeding abnormalities. Allergic/Immunologic:-no hay fever or drug allergies Review of systems is otherwise unremarkable and normal. Past medical, family history, and surgical history: reviewed with no new additions noted. PAST MEDICAL HISTORY Diagnosis Date - Attention deficit disorder with hyperactivity(314.01) - Conduct disorder, childhood onset type - Foot fracture, right growth plate involved - Fracture of clavicle, right, closed 2016 - Generalized convulsive epilepsy without mention of intractable epilepsy - Other abnormal heart sounds normal echocardiogram. Holter monitor that - Right wrist fracture - Sensorineural hearing loss, unspecified - Type I (juvenile type) diabetes mellitus without mention of complication, not stated as uncontrolled 05/19 - Unspecified viral meningitis PAST SURGICAL HISTORY Procedure Laterality Date - MYRINGOTOMY W TUBE,BILATERAL(2) FAMILY HISTORY Problem Relation Age of Onset - other (renal failure) Mother - Thyroid Father - other (adhd) Father - other (hearing loss: congenital) Father - other (hypercholesterlemia) Father - Heart Paternal Grandmother NE - other (irritable bowel syndrome) Sister - other (migraine) Sister - Cancer Paternal Grandfather possibly lung cancer - Hearing Loss Paternal Grandfather congenital - Hearing Loss Brother congenital - other (adhd) Brother 15 - other (sleeping disorder) Brother Physical Exam: Wt 64.9 kg (143 lb) BMI 22.31 kg/m2 (32 %ile (Z= -0.46) based on CDC 2-20 Years [id number] data using vitals from 04/10/2018.), Ht 170.5 cm (5' 7.13) BMI 22.31 kg/m2, Body mass index is 22.31 kg/m?. (46 %ile (Z= -0.11) based on CDC 2-20 Years BMI-for-age data using vitals from 04/10/2018.) General/Constitutional:- alert and active in no apparent distress Head:- Normocephalic Eye:- PERRLA, conjunctiva clear, no icterus Oropharynx:- moist mucous membranes, tonsils without hypertrophy and no exudates present Neck/Lymphatic:- supple, no adenopathy Cardiac:- Regular Rate and Rhythm without murmurs or clicks Respiratory:- clear to auscultation Gastrointestinal:- Abdomen is soft, non-tender; BS normal, Liver span 15 cm; Rectal :- deferred exam Skin:-normal color, no jaundice or rash Labs/Radiology: Component Latest Ref Rng AND Units 01/16/2018 04/10/2018 WBC 3.70 - 11.00 k/uL 6.47 RBC 4.20 - 6.00 m/uL 4.96 Hemoglobin 13.0 - 17.0 g/dL 15.4 Hematocrit 39.0 - 51.0 % 46.5 MCV 80.0 - 100.0 fL 93.8 MCH 26.0 - 34.0 pG 31.0 MCHC 30.5 - 36.0 g/dL 33.1 RDW-CV 11.5 - 15.0 % 13.6 Platelet Count 150 - 400 k/uL 329 MPV 9.0 - 12.7 fL 9.8 Neut% % 59.0 Abs Neut (ANC) 1.45 - 7.50 k/uL 3.82 Lymph% % 30.0 Abs Lymph 1.00 - 4.00 k/uL 1.94 Patrick% % 5.0 Abs Patrick <0.87 k/uL 0.32 Eosin% % 5.0 Abs Eosin <0.46 k/uL 0.32 Baso% % 0.0 Abs Baso <0.11 k/uL 0.00 ANC(includeSEG+BAND) k/uL 3.82 Milton% % 1.0 Red Cell Morph SEE COMMENT Platelet Estimate Platelet estimate adequate Diff Type Manual Diff Protein, Total 6.3 - 8.0 g/dL 6.4 Albumin 3.9 - 4.9 g/dL 3.9 Calcium 8.5 - 10.2 mg/dL 9.4 Bilirubin, Total 0.2 - 1.3 mg/dL 0.5 Alkaline Phosphatase 36 - 108 U/L 166 (H) AST 14 - 40 U/L 190 (H) Glucose 74 - 99 mg/dL 665 (H) BUN 9 - 24 mg/dL 22 Creatinine 0.73 - 1.22 mg/dL 0.68 (L) Sodium 136 - 144 mmol/L 130 (L) Potassium 3.7 - 5.1 mmol/L 5.6 (H) Chloride 97 - 105 mmol/L 89 (L) CO2 22 - 30 mmol/L 17 (L) Anion Gap 9 - 18 mmol/L 24 (H) ALT 10 - 54 U/L 226 (H) eGFR- >60 eGFR-All Other Races . >60 Hemoglobin A1C 4.3 - 5.6 % 13.5 (H) Estimated Average Glucose mg/dL 341 Gliadin Ab, IgA <20 Units 12 Gliadin Ab, IgG <20 Units 3 Lipase 16 - 61 U/L 13 (L) GGT 10 - 70 U/L 142 (H) Bilirubin, Conjug <0.2 mg/dL <0.2 Endomysial Ab, IgA <1:10 <1:10 Transglutaminase Ab, IgA <20 Units 5 Alpha 1 Antitrypsin 90 - 200 mg/dL 64 (L) Impression: Vahid Wang is a 17 year old male with past medical history of poorly controlled type 1 diabetes diagnosed at 2 years of age being seen today in pediatric GI clinic secondary to issues with hepatomegaly, elevated liver enzymes and intermittent epigastric abdominal pain associated with nausea and heart medina. He was evaluated in the past by Dr. Jimenez and had negative workup for chronic viral hepatitis and autoimmune hepatitis. Recent ultrasound in December 2017 show hepatomegaly along with hepatic steatosis. Of note, he also has poorly controlled type 1 diabetes. 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 Ultrasound cannot distinguish between glycogenic hepatopathy and hepatic steatosis. It is also possible that he may have nonalcoholic fatty liver disease in setting of poorly controlled diabetes which has been reported in patients with type 1 diabetes secondary to long-standing hyperglycemia. Fibroscan in January 2018 did show some evidence of steatosis (CAP score 313) but no fibrosis (4.5 kpa). He has been working with endocrinology to get insulin pump to achieve better glycemic control. Also recommended to obtain repeat liver enzymes and workup to evaluate for alpha- 1 antitrypsin deficiency and Lee disease. He has been doing much better with regards to abdominal pain on Prilosec so recommended to continue with Prilosec and avoid acidic, greasy, spicy foods and NSAIDs. Plan: 1. Labs today as below 2. Continue with Prilosec 40 mg once daily 30 minutes before break fast 3. Try to achieve good glycemic control and follow up with Endocrinology 4. Follow up in 4 months Office Visit on 04/10/18 -HEPATIC FUNCTION PNL -PROTHROMBIN TIME/PT -CK CREATINE KINASE -CERULOPLASMIN BLD -ALPHA-1 ANTITRYPSIN CHING -[id number] BL I spent greater than 50% of the time coordinating care and counseling the patient as detailed in my impression and recommendations. Gregg Graham MD Pediatric Gastroenterology Staff April 10, 2018 2:48 PM Pager Number [phone] CC: Scott Braden MD [phone] [facility] [id number] CNOV Observed: 04/10/2018 Status: COMPLETED Source: [facility] 2:30 PM [facility] REPOSITORY Office Visit (PGASMN) VAHID WANG ([id number]) 2000 M Date Time Provider Department 04/10/18 2:30 PM GREGG VALENZUELA During your visit today, we recorded the following information about you: Temperature Pulse Respiration Blood pressure 97.5 degrees 105/minute 18/minute 113/71 Weight Height 64.9 kg 1.705 m Gregg Graham MD 04/12/2018 9:24 AM Signed Prior Clinic Visit: 01/16/2018 Background History: Vahid Wang is a 17 year old male with past medical history of poorly controlled type 1 diabetes diagnosed at 2 years of age being seen today in pediatric GI clinic secondary to issues with hepatomegaly, elevated liver enzymes and intermittent epigastric abdominal pain associated with nausea and heart medina. He was evaluated in the past by Dr. Jimenez and had negative workup for chronic viral hepatitis and autoimmune hepatitis. Recent ultrasound in December 2017 show hepatomegaly along with hepatic steatosis. Of note, he also has poorly controlled type 1 diabetes. 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 Ultrasound cannot distinguish between glycogenic hepatopathy and hepatic steatosis. It is also possible that he may have nonalcoholic fatty liver disease in setting of poorly controlled diabetes which has been reported in patients with type 1 diabetes secondary to long-standing hyperglycemia. Fibroscan in January 2018 did show some evidence of steatosis (CAP score 313) but no fibrosis (4.5 kpa). So recommended to discuss with oceanographer geological for optimal glycemic control which should improve hepatopathy and liver enzymes. ? With regards to abdominal pain, possible causes are GERD/gastritis, stretching of the liver capsule from hepatomegaly, pancreatitis or celiac disease. So recommended to start him on Prilosec on a scheduled basis for optimal acid control. Also recommended lifestyle modifications such as avoiding spicy, greasy or acidic foods and NSAIDs. He returns today follow up. Interval History: History provided by patient. Since the last visit, he has been doing well. He has been trying to get insulin pump to obtain better glycemic control. His abdominal pain has been much better after starting Prilosec. Currently no abdominal pain, nausea or vomiting reported. No dysphagia, odynophagia or heartburns reported. He has better appetite and energy levels. Bowel movements are once daily, normal in consistency with no diarrhea or blood in stools. No jaundice, itching or easy bleeding or bruising reported. No mod disturbances or sleep pattern changes reported. Medications: Current Outpatient Prescriptions on File Prior to Visit: insulin aspart U-100 (NOVOLOG FLEXPEN U-100 INSULIN) 100 unit/mL inpn TAKE 1 UNIT FOR 5 GRAMS CARB UP TO 100 UNITS DAILY insulin glargine (BASAGLAR KWIKPEN U-100 INSULIN) 100 unit/mL (3 mL) inpn Inject 24 units AM and 24 units PM Omeprazole (PRILOSEC) 40 mg capsule Take 1 capsule by mouth once daily. glucagon, human recombinant, (GLUCAGON EMERGENCY KIT, HUMAN,) 1 mg injection use as directed, call if used blood sugar diagnostic (FREESTYLE LITE STRIPS) test strip USE TO TEST UP TO 12 TIMES A DAY DIRECTED Insulin [place], Disposable, (BD ULTRAFINE III MINI PEN) 31 gauge x 3/16 ndle use as directed 10 times daily Insulin Syringe-Needle U-100 (BD INSULIN SYRINGE HALF UNIT) 0.3 mL 31 x 5/16 syrg use as directed Lancets lancets Use as instructed No current facility-administered medications on file prior to visit. Review Of Systems: Constitutional:- No significant change in weight, no fatigue. ENDO:- Type 1 DM CVS:- No history of heart disease, No history of heart murmurs RESP:- no wheezing, frequent cough or shortness of breath GI:- See HPI NEURO:-Normal growth and development. :-negative for dysuria/micturition problems Integumentary:- Negative for lesions, rash, and itching. Musculoskeletal:- Negative for joint pains/edema Psychiatry:- negative for anxiety Hematologic/Lymphatic:-No history of anemia, bruising, bleeding abnormalities. Allergic/Immunologic:-no hay fever or drug allergies Review of systems is otherwise unremarkable and normal. Past medical, family history, and surgical history: reviewed with no new additions noted. PAST MEDICAL HISTORY Diagnosis Date - Attention deficit disorder with hyperactivity(314.01) - Conduct disorder, childhood onset type - Foot fracture, right growth plate involved - Fracture of clavicle, right, closed 2016 - Generalized convulsive epilepsy without mention of intractable epilepsy - Other abnormal heart sounds normal echocardiogram. Holter monitor that - Right wrist fracture - Sensorineural hearing loss, unspecified - Type I (juvenile type) diabetes mellitus without mention of complication, not stated as uncontrolled 05/19 - Unspecified viral meningitis PAST SURGICAL HISTORY Procedure Laterality Date - MYRINGOTOMY W TUBE,BILATERAL(2) FAMILY HISTORY Problem Relation Age of Onset - other (renal failure) Mother - Thyroid Father - other (adhd) Father - other (hearing loss: congenital) Father - other (hypercholesterlemia) Father - Heart Paternal Grandmother NE - other (irritable bowel syndrome) Sister - other (migraine) Sister - Cancer Paternal Grandfather possibly lung cancer - Hearing Loss Paternal Grandfather congenital - Hearing Loss Brother congenital - other (adhd) Brother 15 - other (sleeping disorder) Brother Physical Exam: Wt 64.9 kg (143 lb) BMI 22.31 kg/m2 (32 %ile (Z= -0.46) based on CDC 2-20 Years [id number] data using vitals from 04/10/2018.), Ht 170.5 cm (5' 7.13) BMI 22.31 kg/m2, Body mass index is 22.31 kg/m?. (46 %ile (Z= -0.11) based on CDC 2-20 Years BMI-for-age data using vitals from 04/10/2018.) General/Constitutional:- alert and active in no apparent distress Head:- Normocephalic Eye:- PERRLA, conjunctiva clear, no icterus Oropharynx:- moist mucous membranes, tonsils without hypertrophy and no exudates present Neck/Lymphatic:- supple, no adenopathy Cardiac:- Regular Rate and Rhythm without murmurs or clicks Respiratory:- clear to auscultation Gastrointestinal:- Abdomen is soft, non-tender; BS normal, Liver span 15 cm; Rectal :- deferred exam Skin:-normal color, no jaundice or rash Labs/Radiology: Component Latest Ref Rng AND Units 01/16/2018 04/10/2018 WBC 3.70 - 11.00 k/uL 6.47 RBC 4.20 - 6.00 m/uL 4.96 Hemoglobin 13.0 - 17.0 g/dL 15.4 Hematocrit 39.0 - 51.0 % 46.5 MCV 80.0 - 100.0 fL 93.8 MCH 26.0 - 34.0 pG 31.0 MCHC 30.5 - 36.0 g/dL 33.1 RDW-CV 11.5 - 15.0 % 13.6 Platelet Count 150 - 400 k/uL 329 MPV 9.0 - 12.7 fL 9.8 Neut% % 59.0 Abs Neut (ANC) 1.45 - 7.50 k/uL 3.82 Lymph% % 30.0 Abs Lymph 1.00 - 4.00 k/uL 1.94 Patrick% % 5.0 Abs Patrick <0.87 k/uL 0.32 Eosin% % 5.0 Abs Eosin <0.46 k/uL 0.32 Baso% % 0.0 Abs Baso <0.11 k/uL 0.00 ANC(includeSEG+BAND) k/uL 3.82 Milton% % 1.0 Red Cell Morph SEE COMMENT Platelet Estimate Platelet estimate adequate Diff Type Manual Diff Protein, Total 6.3 - 8.0 g/dL 6.4 Albumin 3.9 - 4.9 g/dL 3.9 Calcium 8.5 - 10.2 mg/dL 9.4 Bilirubin, Total 0.2 - 1.3 mg/dL 0.5 Alkaline Phosphatase 36 - 108 U/L 166 (H) AST 14 - 40 U/L 190 (H) Glucose 74 - 99 mg/dL 665 (H) BUN 9 - 24 mg/dL 22 Creatinine 0.73 - 1.22 mg/dL 0.68 (L) Sodium 136 - 144 mmol/L 130 (L) Potassium 3.7 - 5.1 mmol/L 5.6 (H) Chloride 97 - 105 mmol/L 89 (L) CO2 22 - 30 mmol/L 17 (L) Anion Gap 9 - 18 mmol/L 24 (H) ALT 10 - 54 U/L 226 (H) eGFR- >60 eGFR-All Other Races . >60 Hemoglobin A1C 4.3 - 5.6 % 13.5 (H) Estimated Average Glucose mg/dL 341 Gliadin Ab, IgA <20 Units 12 Gliadin Ab, IgG <20 Units 3 Lipase 16 - 61 U/L 13 (L) GGT 10 - 70 U/L 142 (H) Bilirubin, Conjug <0.2 mg/dL <0.2 Endomysial Ab, IgA <1:10 <1:10 Transglutaminase Ab, IgA <20 Units 5 Alpha 1 Antitrypsin 90 - 200 mg/dL 64 (L) Impression: Vahid Wang is a 17 year old male with past medical history of poorly controlled type 1 diabetes diagnosed at 2 years of age being seen today in pediatric GI clinic secondary to issues with hepatomegaly, elevated liver enzymes and intermittent epigastric abdominal pain associated with nausea and heart medina. He was evaluated in the past by Dr. Jimenez and had negative workup for chronic viral hepatitis and autoimmune hepatitis. Recent ultrasound in December 2017 show hepatomegaly along with hepatic steatosis. Of note, he also has poorly controlled type 1 diabetes. 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 Ultrasound cannot distinguish between glycogenic hepatopathy and hepatic steatosis. It is also possible that he may have nonalcoholic fatty liver disease in setting of poorly controlled diabetes which has been reported in patients with type 1 diabetes secondary to long-standing hyperglycemia. Fibroscan in January 2018 did show some evidence of steatosis (CAP score 313) but no fibrosis (4.5 kpa). He has been working with endocrinology to get insulin pump to achieve better glycemic control. Also recommended to obtain repeat liver enzymes and workup to evaluate for alpha- 1 antitrypsin deficiency and Lee disease. He has been doing much better with regards to abdominal pain on Prilosec so recommended to continue with Prilosec and avoid acidic, greasy, spicy foods and NSAIDs. Plan: 1. Labs today as below 2. Continue with Prilosec 40 mg once daily 30 minutes before break fast 3. Try to achieve good glycemic control and follow up with Endocrinology 4. Follow up in 4 months Office Visit on 04/10/18 -HEPATIC FUNCTION PNL -PROTHROMBIN TIME/PT -CK CREATINE KINASE -CERULOPLASMIN BLD -ALPHA-1 ANTITRYPSIN CHING -[id number]-[id number] BL I spent greater than 50% of the time coordinating care and counseling the patient as detailed in my impression and recommendations. Gregg Graham MD Pediatric Gastroenterology Staff April 10, 2018 2:48 PM Pager Number [phone] CC: Scott Braden MD [phone] [facility] [id number] Gregg Graham MD 04/10/2018 3:06 PM Signed 1. Labs today 2. Continue with Prilosec 3. Try to achieve good glycemic control 4. Follow up in 4 months Referring Provider: SELF [[id number]] Allergies As of Date: 04/10/2018 (No Known Allergies) Date Reviewed: 04/10/2018 Reviewed by: Lana Korbel Ma - Fully Assessed Reason for Visit: Follow Up [171] Cmt: hepatomegaly Primary Visit Diagnosis:Hepatomegaly, not elsewhere classified [R16.0] Other Visit Diagnoses:Epigastric pain [R10.13] Diabetes mellitus type 1, uncontrolled, without complications (HCC) [E10.65] Elevated liver enzymes [R74.8] Order(s):HEPATIC FUNCTION PNL [SQHFP] Order #: [id number] FUTURE PROTHROMBIN TIME/PT [SQPT] Order #: [id number] FUTURE CK CREATINE KINASE [SQCK] Order #: [id number] FUTURE CERULOPLASMIN BLD [SQCERULO] Order #: [id number] FUTURE ALPHA-1 ANTITRYPSIN CHING [SFSO9NW] Order #: [id number] FUTURE [id number]-9-[id number] BL [SQAAT] Order #: [id number] FUTURE Prescriptions as of 04/10/2018 Sig: INSULIN ASPART U-100 100 UNI* TAKE 1 UNIT FOR 5 GRAMS CARB * INSULIN GLARGINE (U-100) 100 * Inject 24 units AM and 24 uni* OMEPRAZOLE 40 MG CAPSULE,MANAN* Take 1 capsule by mouth once * GLUCAGON (HUMAN RECOMBINANT) * use as directed, call if used BLOOD SUGAR DIAGNOSTIC STRIPS USE TO TEST UP TO 12 TIMES A * PEN NEEDLE, DIABETIC 31 GAUGE* use as directed 10 times daily INSULIN SYRINGE-NEEDLE U-100 * use as directed LANCETS Use as instructed Problem List As Of Date 04/10/2018 Noted Resolved Closed buckle fracture of radius [[id number]] INVALID FOR*02/16/2018 ADD (Attention Deficit Disorder) [F98.8] INVALID FOR* Fatty liver disease, nonalcoholic [K76.0] INVALID FOR* Accidental striking against or bumped into by a*INVALID FOR* Activity, running [Y93.02] INVALID FOR* Activity, soccer [Y93.66] INVALID FOR* Anxiety disorder [F41.9] INVALID FOR* Contusion of right foot [S90.31XA] INVALID FOR*02/16/2018 Cramp and spasm [R25.2] INVALID FOR* Type 1 diabetes mellitus with hyperglycemia (HC*INVALID FOR* Hyperglycemia [R73.9] INVALID FOR* Hepatomegaly, not elsewhere classified [R16.0] INVALID FOR* Hyperkalemia [E87.5] INVALID FOR*02/16/2018 Hypo-osmolality and hyponatremia [E87.1] INVALID FOR*02/16/2018 Chronic sinusitis [J32.9] INVALID FOR* terminal clerk (current) use of insulin (HCC) [Z79.4]INVALID FOR* Nausea [R11.0] INVALID FOR*02/16/2018 Nausea with vomiting, unspecified [R11.2] INVALID FOR*02/16/2018 Other and unspecified overexertion or strenuous*INVALID FOR* Other external cause status [Y99.8] INVALID FOR* Hepatic steatosis [K76.0] INVALID FOR* Encounter for general adult medical examination*INVALID FOR* Suicidal ideations [R45.851] INVALID FOR* Abnormal electrocardiogram [R94.31] INVALID FOR* Right upper quadrant pain [R10.11] INVALID FOR*02/16/[address] of occurrence of external*INVALID FOR* Strain of unspecified muscle(s) and tendon(s) a*INVALID FOR* Suicidal ideation [R45.851] INVALID FOR* Unspecified external cause status [Y99.9] INVALID FOR* Unspecified place or not applicable [Y92.9] INVALID FOR* Unspecified sprain of right foot, initial encou*INVALID FOR* Ketonuria [R82.4] INVALID FOR* Epigastric pain [R10.13] INVALID FOR* Heartburn [R12] INVALID FOR* Gastroesophageal reflux disease [K21.9] INVALID FOR* Diabetes mellitus type 1, uncontrolled, without*INVALID FOR* Other instructions from your clinician: 1. Labs today 2. Continue with Prilosec 3. Try to achieve good glycemic control 4. Follow up in 4 months Disposition: Return in about 4 months (around 08/10/2018). Follow-up and Disposition History Recorded Encounter Status:Closed by GREGG VALENZUELA MD on 04/12/18 ENDOCRINOLOGY VISIT Observed: 03/25/2018 Status: F Source: RIP REPORT 10:18 AM [facility] REPOSITORY [facility] [address] [place] [address] OFFICE VISIT Date of Service: 03/20/18 MR#: [id number] Acct: [id number] Name: VAHID WANG Rep #: [id number] : 2000 Provider: Ilda Chavez NP Age/Sex: 17/M Location: [facility] Status: Signed HPI History of present illness HPI History of present illness Vahid Wang is an 17year old male who presents for follow up of diabetes type 1. accompanied by his grandmother. Diagnosed at age 2 with diabetes. . Is now back into his grandmother's home. Taking lantus 30 units daily and using meal insulin I/C ratio of 7. Taking approx 8-11 units at each meal. ISF=40. Pt denies difficulty with injections or self monitoring of BG. Denies any signs of infection or irritation at site of injections. Reports taking insulin as directed with occ missed doses. Is here today to let me know he had a hospital stay last month for another DKA and the hospitalist referred him to [facility]. He is asking if he can still see me between visits. At time of visit: -Pt denies symptoms of hypertensive emergency (CP,SOB,HAWKINS, or blurred vision) and hypotension(dizziness or lightheadedness) -Pt denies symptoms of hypoglycemia ( sweaty, confusion, anxiety, tremor, hunger, palpitations) and hyperglycemia ( polydipsia, polyuria) -Pt denies potential medication adverse effect. Hypoglycemia Aware of hypoglycemia: yes Able to self treat low BG: Yes Frequent low Blood sugar: No Has supply of glucagon: Yes Since our last visit he denies excessive thirst, increased frequency of urination, chest pain or dyspnea. Follows a regular diet, Is tolerating without side effects. SMBG 3-6 BG checks daily 100-400 BG readings. BG highest at bedtime Exam Const General: comfortable, no acute distress Nutritional Appearance: well nourished Orientation: oriented x3 [facility] Head: normal to inspection, atraumatic Ears: hearing grossly impaired Mouth: oral mucosae normal, moist mucous membranes Teeth and gingiva: dentition normal Eyes General: appearance normal, both eyes and all related structures Eyelids: eyelids normal Conjunctivae: conjunctivae normal Sclera: sclerae normal Pupils: PERRL Resp Effort AND Inspection: normal respiratory effort, able to speak in complete sentences, symmetric chest movement Auscultation: Bilateral: Clear to Auscultation Cardio Rate: regular rate Rhythm: regular rhythm Heart Sounds: S1 normal, S2 normal, no gallops, no murmurs, no rubs GI Inspection: normal to inspection Auscultation: normal bowel sounds Palpation: soft, no guarding Skin General: no rashes or lesions noted Wounds: no wounds Diabetic Foot Pulses: L dorsalis pedis pulse: normal, R dorsalis pedis pulse: normal Monofilament test: Left foot: normal, Right foot: normal Neuro General: gait normal, moves all extremities Cranial Nerves: CN's II-XI intact bilaterally Extrem General: normal to inspection Psych Appearance: well kempt Mental Status: mental status grossly normal Mood: congruent mood Affect: normal affect Speech and Movement: speech and movement normal Attitude: cooperative Thought Process: normal Thought Content: normal Judgment: fair Weight and fatigue symptoms: Denies snoring Cardiopulmonary symptoms: Denies chest pain at rest, dyspnea on exertion, lightheadedness or myalgias GI symptoms: Denies constipation, diarrhea, nausea/dyspepsia or vomiting Skin and extremity symptoms: Denies erectile dysfunction Other symptoms: Denies blurry vision or change in vision Intake Vital Signs03/20/18 Height 5 ft 8 in 03/20/18 Weight: 141 lb 03/20/18 Body Mass Index (BMI) 21.4 03/20/18 Blood Pressure 119/77 03/20/18 Blood Pressure Location Lt popliteal 03/20/18 Blood Pressure Position Sitting Intake Visit Reasons: 3 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 Accompanied by: Self Is patient in pain?: No Allergies No Known Allergies Allergy (Verified 03/20/18 15:03) Medications insulin aspart U-100 100 unit/mL subcutaneous pen See Label Instructions SC QDAY 08/10/17 [History Confirmed 03/20/18] Insulin Aspart [Novolog Flexpen (BKC)] 10 units SC TIDCM #1 flexpen 02/12/18 [Rx Confirmed 03/20/18] Insulin Glargine,Hum.rec.anlog [Basaglar Kwikpen U-100] 20 unit SQ BIDAC #1 insuln.pen 02/12/18 [Rx Confirmed 03/20/18] Nurse's Note: blood sugars : low : 42 high : 600+ PFSH Medical History Anxiety disorder (Acute) Back problem (Acute) Bone fracture (Acute) Diabetes type 1, uncontrolled (Acute) Hearing problem (Acute) Liver disease (Acute) Seizure (Acute) Vision problem (Acute) Surgical History S/p bilateral myringotomy with tube placement (Acute) Family History Mother Kidney disease Social History Smoking Status: Never smoker second hand exposure: No alcohol intake: never substance use type: does not use ROS Const Constitutional: No anorexia, body ache, chills, fatigue, fever(s), frequent falls, decreased energy, malaise, night sweats, weakness, weight change, sleep problems, abnormal sleep pattern, change in appetite, other, headache(s), snoring or excessive sweating Eyes Eyes: No blurry vision, change in vision, double vision, discharge, dry eyes, bulging eyes, floaters, visual disturbances, eye pain, light sensitivity, spots in vision, tunnel vision or other ENT ENT: No abnormal hearing, ear pain, ear discharge, ear pressure, hearing loss, tinnitus, dizziness/vertigo, balance problems, nosebleed/epistaxis, nasal congestion, nasal obstruction, nose pain, sinus pressure, sinus pain, nasal discharge, post nasal drip, headache(s), facial pain, dental pain, dry mouth, bad breath, hoarseness, lip swelling, mouth lesions, mouth pain, sore throat, tongue swelling, throat swelling, other, difficulty swallowing or neck pain Resp Respiratory: No cough, change in phlegm color, chest congestion, excessive phlegm production, hemoptysis, pain on inspiration, shortness of breath, pain with cough, snoring, stridor, wheezing or other Cardio Cardiology: No chest pain at rest, chest pain with exertion, leg pain with exertion, excessive sweating, shortness of breath, dyspnea on exertion, generalized swelling, irregular heart rhythm, lightheadedness, orthopnea, radiating jaw, neck or arm pain, fast heart rate, slow heart rate, palpitations or other Gastro GI: No abdominal pain, belching, bloating, change in bowel habits, change in stool character, coffee ground emesis, constipation, cramping, diarrhea, heartburn, difficulty swallowing, feeling full early, excessive flatus, incontinent of stools, Vomiting blood/hematemesis, blood in stool, loose stools, Black,tarry stools, nausea/dyspepsia, pain with swallowing, vomiting or other Genitourinary Male: No difficulty urinating, burning urination, painful urination, urinary incontinence, urinary frequency, urinary urgency, urinary hesitancy, urinary retention, blood in urine, Frequent nighttime urination/ nocturia, post void dribbling, suprapubic fullness, side pain, sexual problems, genital lesions, genital itching, erectile dysfunction, penile discharge, difficulty with ejaculations, blood in semen, scrotal swelling, testicle lump, testicle pain or other Musc Musculoskeletal: No abnormal walking, joint pain, back pain, deformity, joint swelling, limited range of motion, loss of height, muscle cramps, muscle weakness, decreased muscle mass, body aches, neck pain, numbness, radiating pain into limb, stiffness, tingling or other Skin Skin: No acne, hair loss, change in hair, nail changes, boil, change in skin color, dry skin, redness, excessive hair growth, yellowing of the skin, lesions, itching, rash, skin pain, skin ulcer, sores, skin swelling, wounds or other Breast Breast: No other Neuro Neurology: No frequent falls, weakness, visual disturbances, abnormal hearing, headache(s), abnormal walking, numbness or tingling Psych Psychiatric: No abnormal sleep pattern, No change in appetite Endo Endocrine: No fatigue, other or excessive sweating Aller/Imm Allergy/Immunologic: No lip swelling, tongue swelling, throat swelling, wheezing or itchy eyes Assessment AND Plan Problems 1. Uncontrolled type 1 diabetes mellitus with complication E10.65 Plan To consult with [place]. Medications Discontinued: Plan Detail Additional Comments Discussed importance of regular exercise and recommend starting or continuing a regular exercise program for good health. The patient was encouraged to lose weight for good health . The importance of monitoring blood sugar regularly was reviewed. The importance of monitoring the HBA1c level regularly was reviewed. The importance of prper foot care and regularly checking feet to prevent sores and loss of limbs was reviewed. . The importance of keeping BP at or below 130/80 to prevent stroke, heart attacks, kidney failure, blindness was reviewed. Spent approximately 30 minutes with patient with over 50% of time spent in discussion and counseling regarding medication adjustment, symptoms and treatment of hypoglycemia, diet adherence, and checking BG before driving. Coding Level of Care Code Off vis,est,level 1 Diagnoses Uncontrolled type 1 diabetes mellitus with complication E10.65 Diabetes mellitus complication status: with unspecified complications 03/25/18 1018 <Electronically signed by Ilda COTTO> Date Ilda COTTO Cosigner Signature: Date (if applicable) CC: SIXTO Observed: 03/23/2018 Status: COMPLETED Source: [place] 10:15 AM [facility] REPOSITORY Office Visit (ENDMED) VAHID WANG Jose ([id number]) 2000 M Date Time Provider Department 03/23/18 10:15 AM KAMI GAMBLE (ALLI) SHERIDAN During your visit today, we recorded the following information about you: Pulse Respiration Blood pressure Weight 80/minute 16/minute 110/71 63 kg Height 1.702 m Kami Gamble APRN.CNP 03/23/2018 12:37 PM Signed Reason for Consultation: DM Type 1 Referring Physician: SELF HISTORY OF PRESENT ILLNESS Mr. Wang is a 17 year old male presenting here today for a follow up of DM Type 1. As I recall, he was initially diagnosed with diabetes 2002. LV 02/16/2018. Here for an interval visit due to high A1C. A1C 13.5 on 01/16/2018. Here with his grandmother. Has been seeing ALLI Chavez. States she wants him started on a pump [facility]. Now states he is interested in a pump again. Reports he has been in DKA 3 times and seen in ED 8 times this year. Was on [employer] pump in the past (about 6 years ago). Stopped due to issues with his father and father wanted him off the pump. At our initial visit he declined wanting to be on a pump again. At today's visit he has changed his mind and would like a medtronic pump. Does not drive. Ordered freestyle trav last visit but was not covered by insurance. Graduated high school; looking for work. ? Known complications include: DKA ? Exacerbating factors include: none ? Current diabetes regimen is as follows: 1. Basaglar 24 units AM and 24 units PM novolog ratio 1:5 meals; Correction 1:40 For sugars over 180. he is checking his blood glucose 0-1 times daily. he does bring a log book today for review. ? LDE Blood Sugar Frequency: ? BS range 64 to 445. ? Hypoglycemia frequency: occasional. ? Hypoglycemia awareness: Yes Regarding symptoms of hypoglycemia, he is is not experiencing any symptoms such as polyuria, polydipsia, nocturia or rapid weight loss or blurry vision, Overall, the patient has no acute complaints at this time. PAST MEDICAL HISTORY Diagnosis Date - Attention deficit disorder with hyperactivity(314.01) - Conduct disorder, childhood onset type - Foot fracture, right growth plate involved - Fracture of clavicle, right, closed 2016 - Generalized convulsive epilepsy without mention of intractable epilepsy - Other abnormal heart sounds normal echocardiogram. Holter monitor that - Right wrist fracture - Sensorineural hearing loss, unspecified - Type I (juvenile type) diabetes mellitus without mention of complication, not stated as uncontrolled 05/19 - Unspecified viral meningitis PAST SURGICAL HISTORY Procedure Laterality Date - MYRINGOTOMY W TUBE,BILATERAL(2) FAMILY HISTORY Problem Relation Age of Onset - other (renal failure) Mother - Thyroid Father - other (adhd) Father - other (hearing loss: congenital) Father - other (hypercholesterlemia) Father - Heart Paternal Grandmother NE - other (irritable bowel syndrome) Sister - other (migraine) Sister - Cancer Paternal Grandfather possibly lung cancer - Hearing Loss Paternal Grandfather congenital - Hearing Loss Brother congenital - other (adhd) Brother 15 - other (sleeping disorder) Brother Social History Marital status: Single Spouse name: Years of education: Number of children: Social History Main Topics Smoking status: Never Smoker Smokeless tobacco: Never Used Comment: Grandmother smokes outside of the home Alcohol use: No Drug use: No Sexual activity: No Social History Narrative Social History: Living in home: Paternal Grandmother and sister 19, father is legal guardian Primary general 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 and 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 Disp: 30 capsule Rfl: 1 glucagon, human recombinant, (GLUCAGON EMERGENCY KIT, HUMAN,) 1 mg injection use as directed, call if used Disp: 1 Each Rfl: 2 blood sugar diagnostic (FREESTYLE LITE STRIPS) test strip USE TO TEST UP TO 12 TIMES A DAY DIRECTED Disp: 300 Strip Rfl: 11 Insulin [place], Disposable, (BD ULTRAFINE III MINI PEN) 31 gauge x 3/16 ndle use as directed 10 times daily Disp: 300 Each Rfl: 11 Insulin Syringe-Needle U-100 (BD INSULIN SYRINGE HALF UNIT) 0.3 mL 31 x 5/16 syrg use as directed Disp: 100 Syringe Rfl: 11 Lancets lancets Use as instructed Disp: 300 Each Rfl: 11 flash glucose scanning reader (FREESTYLE TRAV READER) misc Use 4x daily and PRN to monitor blood sugar; insulin dependent; E10.65 (Patient not taking: Reported on 03/23/2018 ) Disp: 1 Kit Rfl: 0 No current facility-administered medications for this visit. REVIEW OF SYSTEMS General: no fever and no chills Skin: no rashes, pruritis or dry skin Cardiac: denies chest pain, heart palpitations or orthopnea Pulmonary: denies wheezing, productive cough or exertional dyspnea PHYSICAL EXAMINATION BP 110/71 (BP Site: Left Arm, BP Position: Sitting, BP Cuff Size: Regular Adult) Pulse 80 Resp 16 Ht 170.2 cm (5' 7) Wt 63 kg (139 lb) SpO2 98% BMI 21.77 kg/m2 Physical Exam Constitutional: He is oriented to person, place, and time and well-developed, well-nourished, and in no distress. No distress. HENT: Head: Normocephalic and atraumatic. Eyes: Right eye exhibits no discharge. Left eye exhibits no discharge. Neck: No thyromegaly present. Cardiovascular: Normal rate and regular rhythm. Pulmonary/Chest: Effort normal and breath sounds normal. Musculoskeletal: He exhibits no edema. Lymphadenopathy: He has no cervical adenopathy. Neurological: He is alert and oriented to person, place, and time. Skin: Skin is warm and dry. He is not diaphoretic. Psychiatric: Mood, memory, affect and judgment normal. DATA Creatinine Date Value Ref Range Status 01/16/2018 0.68 (L) 0.73 - 1.22 mg/dL Final Hemoglobin A1C (%) Date Value 01/16/2018 13.5 ) No components found for: URINEALBUMIN Cholesterol, Total (mg/dL) Date Value 11/15/2016 219 HDL Cholesterol (mg/dL) Date Value 11/15/2016 20 LDL Cholesterol (mg/dL) Date Value 11/15/2016 127 Triglyceride (mg/dL) Date Value 11/15/2016 360 IMPRESSION: Mr. Wang is a 17 year old male here for evaluation of DM Type 1 complicated by DKA RECOMMENDATIONS: (E10.65) Diabetes mellitus type 1, uncontrolled, without complications (HCC) (primary encounter diagnosis) Comment: glycemic control is suboptimal and variable. He has not been consistently checking his blood sugars and there was no data on his meter for the last 2 wks. Advised him he must start checking 4x per day and send these to me. He was given contact info for Michael Gallardo, [employer] rep to initiate the process for pump therapy. Plan: ALBUMIN/CREAT RATIO RND UR, LIPID PANEL BASIC, C-PEPTIDE BLD, BASIC METABOLIC PNL Start checking sugars 4x per day Send me readings weekly. Contact Michael Gallardo regarding a pump. Continue basaglar 24 units AM and 24 units PM Continue novolog with a ratio 1:5 meals and correction of 1:40 over 180 blood sugar. Follow up in 6 wks. Kami Gamble APRN, NP-C Endocrinology [facility]/[place] [address] Fax: Kami Gamble APRN.[facility] 03/23/2018 10:30 AM Addendum 1. Start checking sugars 4x per day Send me readings weekly. 2. Contact Michael Gallardo regarding a pump. 3. Continue basaglar 24 units AM and 24 units PM 4. Continue novolog with a ratio 1:5 meals and correction of 1:40 over 180 blood sugar. 5. Follow up in 6 wks. Kami Gamble APRN, NP-C Endocrinology [facility]/[place] [address] Fax: Referring Provider: SELF [200] Allergies As of Date: 03/23/2018 (No Known Allergies) Date Reviewed: 03/23/2018 Reviewed by: Kami (Alli) Rian - Fully Assessed Reason for Visit: Diabetes [34] Primary Visit Diagnosis:Diabetes mellitus type 1, uncontrolled, without complications (HCC) [E10.65] Order(s):ALBUMIN/CREAT RATIO RND UR [SQUACR] Order #: [id number] FUTURE LIPID PANEL BASIC [SQLIPB] Order #: [id number] FUTURE C-PEPTIDE BLD [SQCPEPT] Order #: [id number] FUTURE BASIC METABOLIC PNL [SQBMP] Order #: [id number] FUTURE Prescriptions as of 03/23/2018 Sig: INSULIN ASPART U-100 100 UNI* TAKE 1 UNIT FOR 5 GRAMS CARB * INSULIN GLARGINE (U-100) 100 * Inject 24 units AM and 24 uni* OMEPRAZOLE 40 MG CAPSULE,MANAN* Take 1 capsule by mouth once * GLUCAGON (HUMAN RECOMBINANT) * use as directed, call if used BLOOD SUGAR DIAGNOSTIC STRIPS USE TO TEST UP TO 12 TIMES A * PEN NEEDLE, DIABETIC 31 GAUGE* use as directed 10 times daily INSULIN SYRINGE-NEEDLE U-100 * use as directed LANCETS Use as instructed Problem List As Of Date 03/23/2018 Noted Resolved Closed buckle fracture of radius [VGD9101] INVALID FOR*02/16/2018 ADD (Attention Deficit Disorder) [F98.8] INVALID FOR* Fatty liver disease, nonalcoholic [K76.0] INVALID FOR* Accidental striking against or bumped into by a*INVALID FOR* Activity, running [Y93.02] INVALID FOR* Activity, soccer [Y93.66] INVALID FOR* Anxiety disorder [F41.9] INVALID FOR* Contusion of right foot [S90.31XA] INVALID FOR*02/16/2018 Cramp and spasm [R25.2] INVALID FOR* Type 1 diabetes mellitus with hyperglycemia (HC*INVALID FOR* Hyperglycemia [R73.9] INVALID FOR* Hepatomegaly, not elsewhere classified [R16.0] INVALID FOR* Hyperkalemia [E87.5] INVALID FOR*02/16/2018 Hypo-osmolality and hyponatremia [E87.1] INVALID FOR*02/16/2018 Chronic sinusitis [J32.9] INVALID FOR* long-term (current) use of insulin (HCC) [Z79.4]INVALID FOR* Nausea [R11.0] INVALID FOR*02/16/2018 Nausea with vomiting, unspecified [R11.2] INVALID FOR*02/16/2018 Other and unspecified overexertion or strenuous*INVALID FOR* Other external cause status [Y99.8] INVALID FOR* Hepatic steatosis [K76.0] INVALID FOR* Encounter for general adult medical examination*INVALID FOR* Suicidal ideations [R45.851] INVALID FOR* Abnormal electrocardiogram [R94.31] INVALID FOR* Right upper quadrant pain [R10.11] INVALID FOR*02/16/[address] of occurrence of external*INVALID FOR* Strain of unspecified muscle(s) and tendon(s) a*INVALID FOR* Suicidal ideation [R45.851] INVALID FOR* Unspecified external cause status [Y99.9] INVALID FOR* Unspecified place or not applicable [Y92.9] INVALID FOR* Unspecified sprain of right foot, initial encou*INVALID FOR* Ketonuria [R82.4] INVALID FOR* Epigastric pain [R10.13] INVALID FOR* Heartburn [R12] INVALID FOR* Gastroesophageal reflux disease [K21.9] INVALID FOR* Diabetes mellitus type 1, uncontrolled, without*INVALID FOR* Other instructions from your clinician: 1. Start checking sugars 4x per day Send me readings weekly. 2. Contact Michael Gallardo regarding a pump. 3. Continue basaglar 24 units AM and 24 units PM 4. Continue novolog with a ratio 1:5 meals and correction of 1:40 over 180 blood sugar. 5. Follow up in 6 wks. Kami Gamble APRN, ALLI-C Endocrinology [facility] Medical Office [facility]/[address] [place], [place] [address] Fax: Medications Discontinued During This Encounter flash glucose sensor (FREESTYLE LIBR* 3 Ea* 5 02/16/2018 03/23/2018 Sig: Use one sensor every 10 days (3 per month); insulin dependent; E10.65 Disc: Reason for discontinue is not on file. flash glucose scanning reader (FREES* 1 Kit 0 02/16/2018 03/23/2018 Sig: Use 4x daily and PRN to monitor blood sugar; insulin dependent; E10.65 Patient not taking: Reported on 03/23/2018 Disc: Reason for discontinue is not on file. Follow-up and Disposition History Recorded Encounter Status:Closed by KAMI GAMBLE on 03/23/18 PROGRESS Observed: 03/23/2018 Status: COMPLETED Source: [place] 10:07 AM [facility] [place] REPOSITORY O ID: [id number] Author: Kami Gamble Service: (none) Author Type: Nurse Practitioner Type: Progress Notes Filed: 03/23/2018 12:37 PM Note Text: Reason for Consultation: DM Type 1 Referring Physician: SELF HISTORY OF PRESENT ILLNESS Mr. Wang is a 17 year old male presenting here today for a follow up of DM Type 1. As I recall, he was initially diagnosed with diabetes 2002. LV 02/16/2018. Here for an interval visit due to high A1C. A1C 13.5 on 01/16/2018. Here with his grandmother. Has been seeing ALLI Chavez. States she wants him started on a pump [facility]. Now states he is interested in a pump again. Reports he has been in DKA 3 times and seen in ED 8 times this year. Was on [employer] pump in the past (about 6 years ago). Stopped due to issues with his father and father wanted him off the pump. At our initial visit he declined wanting to be on a pump again. At today's visit he has changed his mind and would like a medtronic pump. Does not drive. Ordered freestyle trav last visit but was not covered by insurance. Graduated high school; looking for work. ? Known complications include: DKA ? Exacerbating factors include: none ? Current diabetes regimen is as follows: 1. Basaglar 24 units AM and 24 units PM novolog ratio 1:5 meals; Correction 1:40 For sugars over 180. he is checking his blood glucose 0-1 times daily. he does bring a log book today for review. ? LDE Blood Sugar Frequency: ? BS range 64 to 445. ? Hypoglycemia frequency: occasional. ? Hypoglycemia awareness: Yes Regarding symptoms of hypoglycemia, he is is not experiencing any symptoms such as polyuria, polydipsia, nocturia or rapid weight loss or blurry vision, Overall, the patient has no acute complaints at this time. PAST MEDICAL HISTORY Diagnosis Date - Attention deficit disorder with hyperactivity(314.01) - Conduct disorder, childhood onset type - Foot fracture, right growth plate involved - Fracture of clavicle, right, closed 2016 - Generalized convulsive epilepsy without mention of intractable epilepsy - Other abnormal heart sounds normal echocardiogram. Holter monitor that - Right wrist fracture - Sensorineural hearing loss, unspecified - Type I (juvenile type) diabetes mellitus without mention of complication, not stated as uncontrolled 05/19 - Unspecified viral meningitis PAST SURGICAL HISTORY Procedure Laterality Date - MYRINGOTOMY W TUBE,BILATERAL(2) FAMILY HISTORY Problem Relation Age of Onset - other (renal failure) Mother - Thyroid Father - other (adhd) Father - other (hearing loss: congenital) Father - other (hypercholesterlemia) Father - Heart Paternal Grandmother NE - other (irritable bowel syndrome) Sister - other (migraine) Sister - Cancer Paternal Grandfather possibly lung cancer - Hearing Loss Paternal Grandfather congenital - Hearing Loss Brother congenital - other (adhd) Brother 15 - other (sleeping disorder) Brother Social History Marital status: Single Spouse name: Years of education: Number of children: Social History Main Topics Smoking status: Never Smoker Smokeless tobacco: Never Used Comment: Grandmother smokes outside of the home Alcohol use: No Drug use: No Sexual activity: No Social History Narrative Social History: Living in home: Paternal Grandmother and sister 19, father is legal guardian Primary general internist and 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 Disp: 30 capsule Rfl: 1 glucagon, human recombinant, (GLUCAGON EMERGENCY KIT, HUMAN,) 1 mg injection use as directed, call if used Disp: 1 Each Rfl: 2 blood sugar diagnostic (FREESTYLE LITE STRIPS) test strip USE TO TEST UP TO 12 TIMES A DAY DIRECTED Disp: 300 Strip Rfl: 11 Insulin [place], Disposable, (BD ULTRAFINE III MINI PEN) 31 gauge x 3/16 ndle use as directed 10 times daily Disp: 300 Each Rfl: 11 Insulin Syringe-Needle U-100 (BD INSULIN SYRINGE HALF UNIT) 0.3 mL 31 x 5/16 syrg use as directed Disp: 100 Syringe Rfl: 11 Lancets lancets Use as instructed Disp: 300 Each Rfl: 11 flash glucose scanning reader (FREESTYLE TRAV READER) misc Use 4x daily and PRN to monitor blood sugar; insulin dependent; E10.65 (Patient not taking: Reported on 03/23/2018 ) Disp: 1 Kit Rfl: 0 No current facility-administered medications for this visit. REVIEW OF SYSTEMS General: no fever and no chills Skin: no rashes, pruritis or dry skin Cardiac: denies chest pain, heart palpitations or orthopnea Pulmonary: denies wheezing, productive cough or exertional dyspnea PHYSICAL EXAMINATION BP 110/71 (BP Site: Left Arm, BP Position: Sitting, BP Cuff Size: Regular Adult) Pulse 80 Resp 16 Ht 170.2 cm (5' 7) Wt 63 kg (139 lb) SpO2 98% BMI 21.77 kg/m2 Physical Exam Constitutional: He is oriented to person, place, and time and well-developed, well-nourished, and in no distress. No distress. HENT: Head: Normocephalic and atraumatic. Eyes: Right eye exhibits no discharge. Left eye exhibits no discharge. Neck: No thyromegaly present. Cardiovascular: Normal rate and regular rhythm. Pulmonary/Chest: Effort normal and breath sounds normal. Musculoskeletal: He exhibits no edema. Lymphadenopathy: He has no cervical adenopathy. Neurological: He is alert and oriented to person, place, and time. Skin: Skin is warm and dry. He is not diaphoretic. Psychiatric: Mood, memory, affect and judgment normal. DATA Creatinine Date Value Ref Range Status 01/16/2018 0.68 (L) 0.73 - 1.22 mg/dL Final Hemoglobin A1C (%) Date Value 01/16/2018 13.5 ) No components found for: URINEALBUMIN Cholesterol, Total (mg/dL) Date Value 11/15/2016 219 HDL Cholesterol (mg/dL) Date Value 11/15/2016 20 LDL Cholesterol (mg/dL) Date Value 11/15/2016 127 Triglyceride (mg/dL) Date Value 11/15/2016 360 IMPRESSION: Mr. Wang is a 17 year old male here for evaluation of DM Type 1 complicated by DKA RECOMMENDATIONS: (E10.65) Diabetes mellitus type 1, uncontrolled, without complications (HCC) (primary encounter diagnosis) Comment: glycemic control is suboptimal and variable. He has not been consistently checking his blood sugars and there was no data on his meter for the last 2 wks. Advised him he must start checking 4x per day and send these to me. He was given contact info for Michael Gallardo, [employer] rep to initiate the process for pump therapy. Plan: ALBUMIN/CREAT RATIO RND UR, LIPID PANEL BASIC, C-PEPTIDE BLD, BASIC METABOLIC PNL Start checking sugars 4x per day Send me readings weekly. Contact Michael Gallardo regarding a pump. Continue basaglar 24 units AM and 24 units PM Continue novolog with a ratio 1:5 meals and correction of 1:40 over 180 blood sugar. Follow up in 6 wks. Kami Gamble APRN, MESFINC Endocrinology [facility] Medical Office [facility]/[address] [place] [address] Fax: CNOV Observed: 02/16/2018 Status: COMPLETED Source: [place] 8:15 AM [facility] REPOSITORY Office Visit (ENDMED) VAHID WANG ([id number]) 2000 M Date Time Provider Department 02/16/18 8:15 AM KAMI GAMBLE (ALLI) SHERIDAN During your visit today, we recorded the following information about you: Pulse Blood pressure Weight Height 110/minute 129/79 66.4 kg 1.72 m Kami Gamble APRN.COMMERCIAL SOLAR SALES CONSULTANT 02/16/2018 9:56 AM Signed Reason for Consultation: DM Type 1 Referring Physician: SELF HISTORY OF PRESENT ILLNESS Mr. Wang is a 17 year old male presenting here today for a follow up of DM Type 1. As I recall, he was initially diagnosed with diabetes 2002. 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 Here today with his grandmother. A1C 13.5 on 01/16/2018. A1C has been in 10-13 range for the last year. Reports he has been in DKA 3 times and seen in ED 8 times this year. Was on [employer] pump in the past (about 6 years ago). Stopped due to issues with his father and father wanted him off the pump Does not drive. Due for eye exam soon. Feels confident in his carb counting ability. Graduated high school; looking for work. ? Known complications include: DKA ? Exacerbating factors include: none ? Current diabetes regimen is as follows: 1. Basaglar 20 units AM and 20 units PM 2. novolog ratio 1:7 meals.; adding 5 units and then adding correction if needed. Correction 1:40 For sugars over 180. *taking 0-10 units breakfast; skips lunch or takes about 13 units; dinner taking about 20 units . he is checking his blood glucose 0-3 times daily. he does bring a log book today for review. ? LDE Blood Sugar Frequency: 9 readings in 2 wks time period; states he will only check before a meal or if he feels he needs to. ? FBS 62-402 ? acL 259 ? acS 381 ? Hypoglycemia frequency: only one recently when he tried a higher dose of insulin ? Hypoglycemia awareness: Yes Regarding symptoms of hypoglycemia, he is is not experiencing any symptoms such as polyuria, polydipsia, nocturia or rapid weight loss or blurry vision, Overall, the patient has no acute complaints at this time. PAST MEDICAL HISTORY Diagnosis Date - Attention deficit disorder with hyperactivity(314.01) - Conduct disorder, childhood onset type - Foot fracture, right growth plate involved - Fracture of clavicle, right, closed 2016 - Generalized convulsive epilepsy without mention of intractable epilepsy - Other abnormal heart sounds normal echocardiogram. Holter monitor that - Right wrist fracture - Sensorineural hearing loss, unspecified - Type I (juvenile type) diabetes mellitus without mention of complication, not stated as uncontrolled 05/19 - Unspecified viral meningitis PAST SURGICAL HISTORY Procedure Laterality Date - MYRINGOTOMY W TUBE,BILATERAL(2) FAMILY HISTORY Problem Relation Age of Onset - renal failure [OTHER] Mother - Thyroid Father - adhd [OTHER] Father - hearing loss: congenital [OTHER] Father - hypercholesterlemia [OTHER] Father - Heart Paternal Grandmother NE - irritable bowel syndrome [OTHER] Sister - migraine [OTHER] Sister - Cancer Paternal Grandfather possibly lung cancer - Hearing Loss Paternal Grandfather congenital - Hearing Loss Brother congenital - adhd [OTHER] Brother 15 - sleeping disorder [OTHER] Brother Social History Marital status: Single Spouse name: Years of education: Number of children: Social History Main Topics Smoking status: Never Smoker Smokeless tobacco: Never Used Comment: Grandmother smokes outside of the home Alcohol use: No Drug use: No Sexual activity: No Social History Narrative Social History: Living in home: Paternal Grandmother and sister 19, father is legal guardian Primary general internist and physician leader(s): Allergies As of Date: 02/16/2018 (No Known Allergies) Fully Assessed 02/16/2018 Current Outpatient Prescriptions: insulin aspart U-100 (NOVOLOG FLEXPEN U-100 INSULIN) 100 unit/mL inpn TAKE 1 UNIT FOR 5 GRAMS CARB UP TO 100 UNITS DAILY Disp: 15 Pen Rfl: 11 Omeprazole (PRILOSEC) 40 mg capsule Take 1 capsule by mouth once daily. Disp: 30 capsule Rfl: 1 glucagon, human recombinant, (GLUCAGON EMERGENCY KIT, HUMAN,) 1 mg injection use as directed, call if used Disp: 1 Each Rfl: 2 blood sugar diagnostic (FREESTYLE LITE STRIPS) test strip USE TO TEST UP TO 12 TIMES A DAY DIRECTED Disp: 300 Strip Rfl: 11 Insulin [place], Disposable, (BD ULTRAFINE III MINI PEN) 31 gauge x 3/16 ndle use as directed 10 times daily Disp: 300 Each Rfl: 11 Insulin Syringe-Needle U-100 (BD INSULIN SYRINGE HALF UNIT) 0.3 mL 31 x 5/16 syrg use as directed Disp: 100 Syringe Rfl: 11 Lancets lancets Use as instructed Disp: 300 Each Rfl: 11 flash glucose scanning reader (FREESTYLE TRAV READER) misc Use 4x daily and PRN to monitor blood sugar; insulin dependent; E10.65 Disp: 1 Kit Rfl: 0 flash glucose sensor (FREESTYLE TRAV SENSOR) kit Use one sensor every 10 days (3 per month); insulin dependent; E10.65 Disp: 3 Each Rfl: 5 insulin glargine (BASAGLAR KWIKPEN U-100 INSULIN) 100 unit/mL (3 mL) inpn Inject 24 units AM and 24 units PM Disp: Rfl: No current facility-administered medications for this visit. REVIEW OF SYSTEMS General: no fever and no chills Skin: no rashes, pruritis or dry skin Cardiac: denies chest pain, heart palpitations or orthopnea Pulmonary: denies wheezing, productive cough or exertional dyspnea PHYSICAL EXAMINATION BP 129/79 (BP Site: Left Arm, BP Position: Sitting, BP Cuff Size: Regular Adult) Pulse 110 Ht 172 cm (5' 7.72) Wt 66.4 kg (146 lb 6.4 oz) SpO2 97% BMI 22.45 kg/m2 Physical Exam Constitutional: He is oriented to person, place, and time and well-developed, well-nourished, and in no distress. No distress. HENT: Head: Normocephalic and atraumatic. Eyes: Right eye exhibits no discharge. Left eye exhibits no discharge. Neck: No thyromegaly present. Cardiovascular: Normal rate and regular rhythm. Pulmonary/Chest: Effort normal and breath sounds normal. Musculoskeletal: He exhibits no edema. Lymphadenopathy: He has no cervical adenopathy. Neurological: He is alert and oriented to person, place, and time. Skin: Skin is warm and dry. He is not diaphoretic. Psychiatric: Mood, memory, affect and judgment normal. Feet:Shoes and socks removed, No deformities, ulcers, calluses and sensitive to 10 gm monofilament DATA Creatinine Date Value Ref Range Status 01/16/2018 0.68 (L) 0.73 - 1.22 mg/dL Final Hemoglobin A1C (%) Date Value 01/16/2018 13.5 ) No components found for: URINEALBUMIN Cholesterol, Total (mg/dL) Date Value 11/15/2016 219 HDL Cholesterol (mg/dL) Date Value 11/15/2016 20 LDL Cholesterol (mg/dL) Date Value 11/15/2016 127 Triglyceride (mg/dL) Date Value 11/15/2016 360 IMPRESSION: Mr. Wang is a 17 year old male here for evaluation of DM Type 1 complicated by DKA RECOMMENDATIONS: (E10.65) Diabetes mellitus type 1, uncontrolled, without complications (HCC) (primary encounter diagnosis) Comment: Glycemic control is above goal. Advised him to check his sugar more often and will send for freestyle trav which will need a PA. software educator, Pranay, showed him how to use the freestyle trav in office today. He is not interested in a pump at this time. Insulin doses adjusted today. Plan: Check sugars 4x per day minimum. Basaglar AM 24 units PM 24 units Novolog Breakfast ratio 1 units per 5 grams carbs Lunch ratio 1 unit per 5 grams carbs Dinner ratio 1 unit per 5 grams carbs No need to add the extra five units unless the ratio above and correction do not seem to be keeping the numbers lower. Continue same ratio of 1:40 for sugars over 180. Notify me if interested in trying a pump again. Follow up in 4-5 wks Please have a copy of your eye exam sent to use. Kami Gamble APRN, ALLI-C Endocrinology [facility]/[place] [address] Fax: Kami Gamble APRN.COMMERCIAL [employer]AR SALES CONSULTANT 02/16/2018 8:58 AM Addendum 1. Check sugars 4x per day minimum. 2. Basaglar AM 24 units PM 24 units 3. Novolog Breakfast ratio 1 units per 5 grams carbs Lunch ratio 1 unit per 5 grams carbs Dinner ratio 1 unit per 5 grams carbs No need to add the extra five units unless the ratio above and correction do not seem to be keeping the numbers lower. Continue same ratio of 1:40 for sugars over 180. 4. Notify me if interested in trying a pump again. 5. Follow up in 4-5 wks 6. Please have a copy of your eye exam sent to use. Kami Gamble APRN, NP-C Endocrinology [facility]/[place] [address] Fax: Referring Provider: SELF [[id number]] Allergies As of Date: 02/16/2018 (No Known Allergies) Date Reviewed: 02/16/2018 Reviewed by: Kami Gamble - Fully Assessed Reason for Visit: Diabetes [34] Primary Visit Diagnosis:Diabetes mellitus type 1, uncontrolled, without complications (HCC) [E10.65] Order(s):flash glucose scanning reader (FREESTYLE TRAV READER) miscUse 4x daily and PRN to monitor blood sugar; insulin dependent; E10.65Disp: 1 KitRfl: 0 flash glucose sensor (FREESTYLE TRAV SENSOR) kitUse one sensor every 10 days (3 per month); insulin dependent; E10.65Disp: 3 EachRfl: 5 insulin aspart U-100 (NOVOLOG FLEXPEN U-100 INSULIN) 100 unit/mL inpnTAKE 1 UNIT FOR 5 GRAMS CARB UP TO 100 UNITS DAILYDisp: 15 PenRfl: 11 insulin glargine (BASAGLAR KWIKPEN U-100 INSULIN) 100 unit/mL (3 mL) inpnInject 24 units AM and 24 units PMDisp: Rfl: Prescriptions as of 02/16/2018 Sig: INSULIN ASPART U-100 100 UNI* TAKE 1 UNIT FOR 5 GRAMS CARB * OMEPRAZOLE 40 MG CAPSULE,MANAN* Take 1 capsule by mouth once * GLUCAGON (HUMAN RECOMBINANT) * use as directed, call if used BLOOD SUGAR DIAGNOSTIC STRIPS USE TO TEST UP TO 12 TIMES A * PEN NEEDLE, DIABETIC 31 GAUGE* use as directed 10 times daily INSULIN SYRINGE-NEEDLE U-100 * use as directed LANCETS Use as instructed FLASH GLUCOSE SCANNING READER Use 4x daily and PRN to monit* FLASH GLUCOSE SENSOR KIT Use one sensor every 10 days * INSULIN GLARGINE (U-100) 100 * Inject 24 units AM and 24 uni* Problem List As Of Date 02/16/2018 Noted Resolved Closed buckle fracture of radius [UQU6847] INVALID FOR*02/16/2018 ADD (Attention Deficit Disorder) [F98.8] INVALID FOR* Fatty liver disease, nonalcoholic [K76.0] INVALID FOR* Accidental striking against or bumped into by a*INVALID FOR* Activity, running [Y93.02] INVALID FOR* Activity, soccer [Y93.66] INVALID FOR* Anxiety disorder [F41.9] INVALID FOR* Contusion of right foot [S90.31XA] INVALID FOR*02/16/2018 Cramp and spasm [R25.2] INVALID FOR* Type 1 diabetes mellitus with hyperglycemia (HC*INVALID FOR* Hyperglycemia [R73.9] INVALID FOR* Hepatomegaly, not elsewhere classified [R16.0] INVALID FOR* Hyperkalemia [E87.5] INVALID FOR*02/16/2018 Hypo-osmolality and hyponatremia [E87.1] INVALID FOR*02/16/2018 Chronic sinusitis [J32.9] INVALID FOR* long-term (current) use of insulin (HCC) [Z79.4]INVALID FOR* Nausea [R11.0] INVALID FOR*02/16/2018 Nausea with vomiting, unspecified [R11.2] INVALID FOR*02/16/2018 Other and unspecified overexertion or strenuous*INVALID FOR* Other external cause status [Y99.8] INVALID FOR* Hepatic steatosis [K76.0] INVALID FOR* Encounter for general adult medical examination*INVALID FOR* Suicidal ideations [R45.851] INVALID FOR* Abnormal electrocardiogram [R94.31] INVALID FOR* Right upper quadrant pain [R10.11] INVALID FOR*02/16/[address] of occurrence of external*INVALID FOR* Strain of unspecified muscle(s) and tendon(s) a*INVALID FOR* Suicidal ideation [R45.851] INVALID FOR* Unspecified external cause status [Y99.9] INVALID FOR* Unspecified place or not applicable [Y92.9] INVALID FOR* Unspecified sprain of right foot, initial encou*INVALID FOR* Ketonuria [R82.4] INVALID FOR* Epigastric pain [R10.13] INVALID FOR* Heartburn [R12] INVALID FOR* Gastroesophageal reflux disease [K21.9] INVALID FOR* Other instructions from your clinician: 1. Check sugars 4x per day minimum. 2. Basaglar AM 24 units PM 24 units 3. Novolog Breakfast ratio 1 units per 5 grams carbs Lunch ratio 1 unit per 5 grams carbs Dinner ratio 1 unit per 5 grams carbs No need to add the extra five units unless the ratio above and correction do not seem to be keeping the numbers lower. Continue same ratio of 1:40 for sugars over 180. 4. Notify me if interested in trying a pump again. 5. Follow up in 4-5 wks 6. Please have a copy of your eye exam sent to use. Kami Gamble APRN, HEAVY EQUIPMENT SALES MANAGER-C Endocrinology [facility] Medical Office Building/[address], [address] [place] [address] Fax: Prescriptions ordered this encounter Disp Refills Start End INSULIN GLARGINE (U-100) 100 UNIT/ML* 02/16/2018 02/16/2018 Class: Med Update Sig: Inject 20 units AM and 20 units PM FLASH GLUCOSE SCANNING READER 1 Kit 0 02/16/2018 Sig: Use 4x daily and PRN to monitor blood sugar; insulin dependent; E10.65 FLASH GLUCOSE SENSOR KIT 3 Ea* 5 02/16/2018 Sig: Use one sensor every 10 days (3 per month); insulin dependent; E10.65 INSULIN ASPART U-100 100 UNIT/ML SOLANO* 15 P* 11 02/16/2018 Class: Med Update Sig: TAKE 1 UNIT FOR 5 GRAMS CARB UP TO 100 UNITS DAILY INSULIN GLARGINE (U-100) 100 UNIT/ML* 02/16/2018 Class: Med Update Sig: Inject 24 units AM and 24 units PM Medications Discontinued During This Encounter insulin glargine (LANTUS) 100 unit/m* 15 mL 11 12/11/2014 02/16/2018 Route: SUBCUTANEOUS Sig: Inject 21 Units subcutaneously daily at bedtime. Patient taking differently: Inject 30 Units subcutaneously daily at bedtime. Disc: Reason for discontinue is not on file. insulin aspart (NOVOLOG FLEXPEN) 100* 15 P* 11 01/14/2016 02/16/2018 Sig: TAKE 1 UNIT FOR 7 GRAMS CARB UP TO 100 UNITS DAILY Disc: Reason for discontinue is not on file. insulin glargine (BASAGLAR KWIKPEN U* 02/16/2018 02/16/2018 Class: Med Update Sig: Inject 20 units AM and 20 units PM Disc: Reason for discontinue is not on file. Encounter Status:Closed by KAMI GAMBLE on 02/16/18 PROGRESS Observed: 02/16/2018 Status: COMPLETED Source: ARTHUR 8:13 AM [facility] [place] REPOSITORY [facility] ID: [id number] Author: Kami Tobias) Rian Service: (none) Author Type: Nurse Practitioner Type: Progress Notes Filed: 02/16/2018 9:56 AM Note Text: Reason for Consultation: DM Type 1 Referring Physician: SELF HISTORY OF PRESENT ILLNESS Mr. Wang is a 17 year old male presenting here today for a follow up of DM Type 1. As I recall, he was initially diagnosed with diabetes 2002. Patient HEAVY EQUIPMENT SALES MANAGER Opal; [place] 05/13/2015 at [facility] but then in her own clinic about 2-3 months ago. Here today with his grandmother. A1C 13.5 on 01/16/2018. A1C has been in 10-13 range for the last year. Reports he has been in DKA 3 times and seen in ED 8 times this year. Was on [employer] pump in the past (about 6 years ago). Stopped due to issues with his father and father wanted him off the pump Does not drive. Due for eye exam soon. Feels confident in his carb counting ability. Graduated high school; looking for work. ? Known complications include: DKA ? Exacerbating factors include: none ? Current diabetes regimen is as follows: 1. Basaglar 20 units AM and 20 units PM 2. novolog ratio 1:7 meals.; adding 5 units and then adding correction if needed. Correction 1:40 For sugars over 180. *taking 0-10 units breakfast; skips lunch or takes about 13 units; dinner taking about 20 units . he is checking his blood glucose 0-3 times daily. he does bring a log book today for review. ? LDE Blood Sugar Frequency: 9 readings in 2 wks time period; states he will only check before a meal or if he feels he needs to. ? FBS 62-402 ? acL 259 ? acS 381 ? Hypoglycemia frequency: only one recently when he tried a higher dose of insulin ? Hypoglycemia awareness: Yes Regarding symptoms of hypoglycemia, he is is not experiencing any symptoms such as polyuria, polydipsia, nocturia or rapid weight loss or blurry vision, Overall, the patient has no acute complaints at this time. PAST MEDICAL HISTORY Diagnosis Date - Attention deficit disorder with hyperactivity(314.01) - Conduct disorder, childhood onset type - Foot fracture, right growth plate involved - Fracture of clavicle, right, closed 2016 - Generalized convulsive epilepsy without mention of intractable epilepsy - Other abnormal heart sounds normal echocardiogram. Holter monitor that - Right wrist fracture - Sensorineural hearing loss, unspecified - Type I (juvenile type) diabetes mellitus without mention of complication, not stated as uncontrolled 05/19 - Unspecified viral meningitis PAST SURGICAL HISTORY Procedure Laterality Date - MYRINGOTOMY W TUBE,BILATERAL(2) FAMILY HISTORY Problem Relation Age of Onset - renal failure [OTHER] Mother - Thyroid Father - adhd [OTHER] Father - hearing loss: congenital [OTHER] Father - hypercholesterlemia [OTHER] Father - Heart Paternal Grandmother NE - irritable bowel syndrome [OTHER] Sister - migraine [OTHER] Sister - Cancer Paternal Grandfather possibly lung cancer - Hearing Loss Paternal Grandfather congenital - Hearing Loss Brother congenital - adhd [OTHER] Brother 15 - sleeping disorder [OTHER] Brother Social History Marital status: Single Spouse name: Years of education: Number of children: Social History Main Topics Smoking status: Never Smoker Smokeless tobacco: Never Used Comment: Grandmother smokes outside of the home Alcohol use: No Drug use: No Sexual activity: No Social History Narrative Social History: Living in home: Paternal Grandmother and sister 19, father is legal guardian Primary general internist and physician leader(s): Allergies As of Date: 02/16/2018 (No Known Allergies) Fully Assessed 02/16/2018 Current Outpatient Prescriptions: insulin aspart U-100 (NOVOLOG FLEXPEN U-100 INSULIN) 100 unit/mL inpn TAKE 1 UNIT FOR 5 GRAMS CARB UP TO 100 UNITS DAILY Disp: 15 Pen Rfl: 11 Omeprazole (PRILOSEC) 40 mg capsule Take 1 capsule by mouth once daily. Disp: 30 capsule Rfl: 1 glucagon, human recombinant, (GLUCAGON EMERGENCY KIT, HUMAN,) 1 mg injection use as directed, call if used Disp: 1 Each Rfl: 2 blood sugar diagnostic (FREESTYLE LITE STRIPS) test strip USE TO TEST UP TO 12 TIMES A DAY DIRECTED Disp: 300 Strip Rfl: 11 Insulin [place], Disposable, (BD ULTRAFINE III MINI PEN) 31 gauge x 3/16 ndle use as directed 10 times daily Disp: 300 Each Rfl: 11 Insulin Syringe-Needle U-100 (BD INSULIN SYRINGE HALF UNIT) 0.3 mL 31 x 5/16 syrg use as directed Disp: 100 Syringe Rfl: 11 Lancets lancets Use as instructed Disp: 300 Each Rfl: 11 flash glucose scanning reader (FREESTYLE TRAV READER) misc Use 4x daily and PRN to monitor blood sugar; insulin dependent; E10.65 Disp: 1 Kit Rfl: 0 flash glucose sensor (FREESTYLE TRAV SENSOR) kit Use one sensor every 10 days (3 per month); insulin dependent; E10.65 Disp: 3 Each Rfl: 5 insulin glargine (BASAGLAR KWIKPEN U-100 INSULIN) 100 unit/mL (3 mL) inpn Inject 24 units AM and 24 units PM Disp: Rfl: No current facility-administered medications for this visit. REVIEW OF SYSTEMS General: no fever and no chills Skin: no rashes, pruritis or dry skin Cardiac: denies chest pain, heart palpitations or orthopnea Pulmonary: denies wheezing, productive cough or exertional dyspnea PHYSICAL EXAMINATION BP 129/79 (BP Site: Left Arm, BP Position: Sitting, BP Cuff Size: Regular Adult) Pulse 110 Ht 172 cm (5' 7.72) Wt 66.4 kg (146 lb 6.4 oz) SpO2 97% BMI 22.45 kg/m2 Physical Exam Constitutional: He is oriented to person, place, and time and well-developed, well-nourished, and in no distress. No distress. HENT: Head: Normocephalic and atraumatic. Eyes: Right eye exhibits no discharge. Left eye exhibits no discharge. Neck: No thyromegaly present. Cardiovascular: Normal rate and regular rhythm. Pulmonary/Chest: Effort normal and breath sounds normal. Musculoskeletal: He exhibits no edema. Lymphadenopathy: He has no cervical adenopathy. Neurological: He is alert and oriented to person, place, and time. Skin: Skin is warm and dry. He is not diaphoretic. Psychiatric: Mood, memory, affect and judgment normal. Feet:Shoes and socks removed, No deformities, ulcers, calluses and sensitive to 10 gm monofilament DATA Creatinine Date Value Ref Range Status 01/16/2018 0.68 (L) 0.73 - 1.22 mg/dL Final Hemoglobin A1C (%) Date Value 01/16/2018 13.5 ) No components found for: URINEALBUMIN Cholesterol, Total (mg/dL) Date Value 11/15/2016 219 HDL Cholesterol (mg/dL) Date Value 11/15/2016 20 LDL Cholesterol (mg/dL) Date Value 11/15/2016 127 Triglyceride (mg/dL) Date Value 11/15/2016 360 IMPRESSION: Mr. Wang is a 17 year old male here for evaluation of DM Type 1 complicated by DKA RECOMMENDATIONS: (E10.65) Diabetes mellitus type 1, uncontrolled, without complications (HCC) (primary encounter diagnosis) Comment: Glycemic control is above goal. Advised him to check his sugar more often and will send for freestyle trav which will need a PA. software educator, Pranay, showed him how to use the freestyle trav in office today. He is not interested in a pump at this time. Insulin doses adjusted today. Plan: Check sugars 4x per day minimum. Basaglar AM 24 units PM 24 units Novolog Breakfast ratio 1 units per 5 grams carbs Lunch ratio 1 unit per 5 grams carbs Dinner ratio 1 unit per 5 grams carbs No need to add the extra five units unless the ratio above and correction do not seem to be keeping the numbers lower. Continue same ratio of 1:40 for sugars over 180. Notify me if interested in trying a pump again. Follow up in 4-5 wks Please have a copy of your eye exam sent to use. Kami Gamble APRN, HEAVY EQUIPMENT SALES MANAGER-C Endocrinology [facility] Medical Office [facility]/[address] [place], [place] [address] Fax: 12 LEAD ELECTROCARDIOGRAM Observed: 02/13/2018 Status: F Source: [place] 3:10 PM [facility] REPOSITORY [facility] Cardiovascular Services [address] [place] [id number] 12 Lead EKG 02/11/18 0454 MR#: [id number] Acct: [id number] Name: VAHID WANG Rep #: [id number] : 2000 17 From: Vince Gomez MD Attending Dr: Froylan Mccracken DO Status: DIS IN Ordering Dr: Charles Cortez MD Date: 02/11/18 Location: [facility] Sex: M C Admitted: 02/11/18 Test Reason : DKA Blood Pressure : / mmHG Vent. Rate : 078 BPM Atrial Rate : 078 BPM P-R Int : 140 ms QRS Dur : 088 ms QT Int : 384 ms P-R-T Axes : 060 022 031 degrees QTc Int : 437 ms Normal sinus rhythm Normal ECG Confirmed by VINCE GOMEZ MD ([id number]), assistant editor CHRISSIE CACERES ([id number]) on 02/13/2018 3:10:21 PM Referred By: KWABENA Confirmed By:VINCE GOMEZ MD 02/13/18 1510 Date Vince Gomez MD CC: Scott Braden MD; Charles Cortez MD; Froylan Mccracken DO Signed DISCHARGE SUMMARY Observed: 02/13/2018 Status: F Source: [place] 10:46 AM [facility] REPOSITORY [facility] Medical Records Department [address] [place] [address] Discharge Summary 02/13/18 1037 MR#: [id number] Acct: [id number] Name: VAHID WANG Rep #: [id number] : 2000 17 From: Froylan Mccracken DO PCP: Scott Braden MD Status: DIS IN Y Location: MS3 [id number] Discharge Date and Diagnosis Date of Admission: 02/11/18 Date of Discharge: 02/12/18 - Primary Discharge Diagnosis #1 diabetic ketoacidosis #2 hypokalemia #3 uncontrolled type 1 diabetes - Secondary Discharge Diagnosis Chronic Problems (Last Reviewed 01/18/18 @ 16:18 by Amanda Wilkinson) GERD (gastroesophageal reflux disease) (Chronic) Suicidal ideations (Chronic) DM I (diabetes mellitus, type I), uncontrolled (Chronic) BG varied .Noted a pattern of BG elevated after breakfast and dinner and at bedtime last visit and ask him to specifically check 2 hours before and after these times which he did not do. Will increase basaglar to 20 twice daily but he did not do. I have ask him again to do as he gets much better control. When control seems better he may reduce to 18 twice daily. Long discussion about potential complications and need to try. Hospital Course and Treatment Operations: None Procedures: None Summary of Care Provided: The patient is a 17 year old M was seen in the emergency room at [facility] with a chief complaint of elevated blood sugars and feeling of dehydration. Patient denied any nausea vomiting or diarrhea, labs were remarkable for an anion gap of 25, blood sugar was 400 and creatinine was 1.5. There were small amounts of serum ketones present. Patient was felt to be in DKA and was admitted to ICU on insulin drip, the next day he was transferred out of ICU, low potassium was corrected with potassium administration. I had a long talk with the patient concerning his outpatient care for his type 1 diabetes, patient stated that he is not ever seen an adult oceanographer geological. I made arrangements for him to see Dr. Caldwell on 02/13/18 for an evaluation. Patient was seen and examined on 02/12/18 and felt to be in stable condition for discharge home Discharge Activity: Return to Normal Activity Weight Bearing Status: Full weight bearing Home Medications: Medications to take at Discharge insulin aspart U-100 100 unit/mL subcutaneous pen See Label Instructions SC QDAY 08/10/17 Ondansetron [Zofran Odt] 4 mg PO Q4H PRN PRN #7 tab.rapdis 01/03/18 Omeprazole 40 mg PO DAILY 01/23/18 Insulin Aspart [Novolog Flexpen (BKC)] 10 units SC TIDCM #1 flexpen 02/12/18 Insulin Glargine,Hum.rec.anlog [Basaglar Kwikpen U-100] 20 unit SQ BIDAC #1 insuln.pen 02/12/18 Following Prescrptions Were Given to Patient: Insulin Glargine,Hum.rec.anlog [Basaglar Kwikpen U-100] 20 unit SQ BIDAC #1 insuln.pen Insulin Aspart [Novolog Flexpen (BKC)] 10 units SC TIDCM #1 flexpen Primary Care Physician: Scott Braden MD [Primary Care Provider] - Please follow up with your Primary Care Physician in: in 2- 3 weeks Please Follow Up With: Dr. Caldwell When: Monday Disposition: Home Minutes spent on discharge:: 32 Patient Condition:: Stable Medical Necessity - Tobacco Use Smoking Status: Never smoker Meaningful Use Info Meaningful Use Diagnoses (Choose all that apply): None applicable Code Visit Inpatient E AND M: [id number] Disch Hosp 02/13/18 1046 <Electronically signed by Froylan Mccracken DO> Date Froylan Mccracken DO Cosigner Signature (if applicable): Date CC: Scott Braden MD; Froylan Mccracken DO Signed BEDSIDE GLUCOSE Collected: 02/12/2018 Status: F Source: [place] 4:59 PM [facility] REPOSITORY TYPE CODE TESTS RESULT OUT OF REFERENCE UNITS RANGE LAB L501.080 70-110 mg/dL High BEDSIDE GLU 182 Result Comment: MANAGEMENT OF PATIENT CARE PER NURSING PROTOCOL Performed By: #### L501.080 #### [facility] Point of Care [address] [place] [address] DISCHARGE INSTRUCTION Observed: 02/12/2018 Status: F Source: [place] 1:37 PM [facility] REPOSITORY [facility] Medical Records Department [address] [place] [address] Instructions for Home/Discharge Instructions 02/12/18 1329 MR#: [id number] Acct: [id number] Name: VAHID WANG Rep #: [id number] : 2000 17 From: Froylan Mccracken DO PCP: Scott Braden MD Status: ADM IN - Discharge Diagnoses Current Active Problems: Current Active and Chronic Problems (Last Reviewed 01/18/18 @ 16:18 by Amanda Wilkinson) GERD (gastroesophageal reflux disease) (Chronic) DKA, type 1 (Acute) You will use the following diet at home:: Calorie/Carbohydrate Controlled (specify 1200, 1400, etc) - 2200 Your food should be the consistency of: Regular Your liquids should be the consistency of: Regular/Thin Discharge Activity: Return to Normal Activity Weight Bearing Status: Full weight bearing Allergies/Adverse Reactions: Allergies No Known Allergies Allergy (Verified 02/11/18 02:51) Medications to take at Discharge insulin aspart U-100 100 unit/mL subcutaneous pen See Label Instructions SC QDAY 08/10/17 Ondansetron [Zofran Odt] 4 mg PO Q4H PRN PRN #7 tab.rapdis 01/03/18 Omeprazole 40 mg PO DAILY 01/23/18 Insulin Aspart [Novolog Flexpen (BK)] 10 units SC TIDCM #1 flexpen 02/12/18 Insulin Glargine,Hum.rec.anlog [Basaglar Kwikpen U-100] 20 unit SQ BIDAC #1 insuln.pen 02/12/18 The following prescriptions were given: Insulin Glargine,Hum.rec.anlog [Basaglar Kwikpen U-100] 20 unit SQ BIDAC #1 insuln.pen Insulin Aspart [Novolog Flexpen (BKC)] 10 units SC TIDCM #1 flexpen Primary Care Physician: Scott Braden MD [Primary Care Provider] - Please follow up with your Primary Care Physician in: in 2- 3 weeks Test Results: Test results from this visit will be discussed in further detail at your follow-up appointment, if applicable. Please Follow Up With: Dr. Caldwell When: tomorrow at 845 am [address] [facility], [address] [place] 02/12/18 1337 <Electronically signed by Froylan Mccracken DO> Date Froylan Mccracken DO CC: Scott Braden MD; Hong Meyer MD BASIC METABOLIC Collected: 02/12/2018 Status: F Source: RIP PROFILE ([facility]) 1:00 PM [facility] REPOSITORY TYPE CODE TESTS RESULT OUT OF RANGE REFERENCE UNITS LAB L501.0100 74-106 mg/dL High GLU 251 Result Comment: Glucose result greater than or equal to 200 mg/dL suggests DIABETES MELLITUS per A.D.A. criteria. Please note revised GLUCOSE reference range effective 2017. LAB L501.1000 7-18 mg/dL Low BUN 6 LAB L501.1100 0.70-1.30 mg/dL Normal CREAT,SERUM 0.72 Result Comment: The validity of the calculated GFR AND GFRAA in patients over 70 years has not been determined. Clinical correlation is essential. LAB L501.1110 >60 mL/min Normal EST GFR 149 Result Comment: Non- GFR Calc LAB L501.1115 >60 mL/min Normal EST GFR - AA 181 Result Comment: GFR Calc LAB L501.1255 ml/min Normal Estimated CRCL 153.35 LAB L501.1300 10-20 RATIO Low BUN/CRE 8.3 LAB L501.2200 8.5-10 mg/dL Low .1 CA 8.4 LAB L501.5300 136-14 mmol/L 5 NA Normal 140 LAB L501.5600 3.5-5. mmol/L 1 K Normal 4.0 Result Comment: Slight Hemolysis, Result may be falsely increased. LAB L501.5900 98-107 mmol/L High CL 110 LAB L501.6100 21.0-32.0 mmol/L Normal CO2 22.0 LAB L501.6200 5-15 Normal 8 GAP Performed By: #### L500.2500 #### [facility] [address] [place], [address] BEDSIDE GLUCOSE Collected: 02/12/2018 Status: F Source: [place] 12:38 PM [facility] REPOSITORY TYPE CODE TESTS RESULT OUT OF REFERENCE UNITS RANGE LAB L501.080 70-110 mg/dL High BEDSIDE GLU 209 Result Comment: MANAGEMENT OF PATIENT CARE PER NURSING PROTOCOL Performed By: #### L501.080 #### [facility] Point of Care [address] [place] [address] BEDSIDE GLUCOSE Collected: 02/12/2018 Status: F Source: [place] 6:55 AM [facility] REPOSITORY TYPE CODE TESTS RESULT OUT OF REFERENCE UNITS RANGE LAB L501.080 70-110 mg/dL High BEDSIDE GLU 129 Result Comment: MANAGEMENT OF PATIENT CARE PER NURSING PROTOCOL Performed By: #### L501.080 #### [facility] Point of Care [address] [place] [address] BASIC METABOLIC Collected: 02/12/2018 Status: F Source: [place] ([place]) 5:40 AM [facility] REPOSITORY TYPE CODE TESTS RESULT OUT OF RANGE REFERENCE UNITS LAB L501.0100 74-106 mg/dL High GLU 128 Result Comment: Fasting Glucose result greater than or equal to 126 mg/dL suggests DIABETES MELLITUS per A.D.A. criteria. Please note revised GLUCOSE reference range effective 2017. LAB L501.1000 7-18 mg/dL Normal BUN 7 LAB L501.1100 0.70-1.30 mg/dL Low CREAT,SERUM 0.67 Result Comment: The validity of the calculated GFR AND GFRAA in patients over 70 years has not been determined. Clinical correlation is essential. LAB L501.1110 >60 mL/min Normal EST GFR 161 Result Comment: Non- GFR Calc LAB L501.1115 >60 mL/min Normal EST GFR - AA 195 Result Comment: GFR Calc LAB L501.1255 ml/min Normal Estimated CRCL 164.79 LAB L501.1300 10-20 RATIO BUN/CRE Normal 10.4 LAB L501.2200 8.5-10 mg/dL Low .1 CA 8.0 LAB L501.5300 136-14 mmol/L High 5 NA 146 LAB L501.5600 3.5-5. mmol/L Low 1 K alert 2.6 Result Comment: Critical Result(s) Called at: 06:40:44 02/12/2018 by: Zaria Garcia to [facility] LAB L501.5900 98-107 mmol/L High CL 113 LAB L501.6100 21.0-32.0 mmol/L Normal CO2 23.0 LAB L501.6200 5-15 Normal GAP 10 Performed By: #### L500.2500 #### [facility] [address] [place], [place], [address] BEDSIDE GLUCOSE Collected: 02/11/2018 Status: F Source: [place] 10:22 PM [facility] REPOSITORY TYPE CODE TESTS RESULT OUT OF REFERENCE UNITS RANGE LAB L501.080 70-110 mg/dL High BEDSIDE GLU 294 Result Comment: Insulin Given MANAGEMENT OF PATIENT CARE PER NURSING PROTOCOL Performed By: #### L501.080 #### [facility] Point of Care [address] [facility] [place], [place] [address] BASIC METABOLIC Collected: 02/11/2018 Status: F Source: [place] PROFILE ([place]) 9:28 PM [facility] REPOSITORY TYPE CODE TESTS RESULT OUT OF RANGE REFERENCE UNITS LAB L501.0100 74-106 mg/dL High GLU 320 Result Comment: Glucose result greater than or equal to 200 mg/dL suggests DIABETES MELLITUS per A.D.A. criteria. Please note revised GLUCOSE reference range effective 2017. LAB L501.1000 7-18 mg/dL Normal BUN 11 LAB L501.1100 0.70-1.30 mg/dL Normal CREAT,SERUM 1.03 Result Comment: The validity of the calculated GFR AND GFRAA in patients over 70 years has not been determined. Clinical correlation is essential. LAB L501.1110 >60 mL/min Normal EST GFR 99 Result Comment: Non- GFR Calc LAB L501.1115 >60 mL/min Normal EST GFR - AA 120 Result Comment: GFR Calc LAB L501.1255 ml/min Normal Estimated CRCL 105.73 LAB L501.1300 10-20 RATIO BUN/CRE Normal 10.7 LAB L501.2200 8.5-10 mg/dL Low .1 CA 8.3 LAB L501.5300 136-14 mmol/L 5 NA Normal 139 LAB L501.5600 3.5-5. mmol/L 1 K Normal 3.8 Result Comment: Moderate Hemolysis, Result may be falsely increased. LAB L501.5900 98-107 mmol/L High CL 108 LAB L501.6100 21.0-32.0 mmol/L Normal CO2 23.0 LAB L501.6200 5-15 Normal 8 GAP Performed By: #### L500.2500 #### [facility] [address] [facility] [place], [place], [address] BEDSIDE GLUCOSE Collected: 02/11/2018 Status: F Source: [place] 4:16 PM [facility] REPOSITORY TYPE CODE TESTS RESULT OUT OF REFERENCE UNITS RANGE LAB L501.080 70-110 mg/dL High BEDSIDE GLU 363 Result Comment: MANAGEMENT OF PATIENT CARE PER NURSING PROTOCOL Performed By: #### L501.080 #### [facility] Point of Care [address] [place] [address] BEDSIDE GLUCOSE Collected: 02/11/2018 Status: F Source: [place] 1:19 PM [facility] REPOSITORY TYPE CODE TESTS RESULT OUT OF REFERENCE UNITS RANGE LAB L501.080 70-110 mg/dL High BEDSIDE GLU 141 Result Comment: MANAGEMENT OF PATIENT CARE PER NURSING PROTOCOL Performed By: #### L501.080 #### [facility] Point of Care [address] [place] [address] BASIC METABOLIC Collected: 02/11/2018 Status: F Source: [place] ([place]) 12:30 PM [facility] REPOSITORY TYPE CODE TESTS RESULT OUT OF RANGE REFERENCE UNITS LAB L501.0100 74-106 mg/dL High GLU 183 Result Comment: Fasting Glucose result greater than or equal to 126 mg/dL suggests DIABETES MELLITUS per A.D.A. criteria. Please note revised GLUCOSE reference range effective 2017. LAB L501.1000 7-18 mg/dL Normal BUN 11 LAB L501.1100 0.70-1.30 mg/dL Normal CREAT,SERUM 0.88 Result Comment: The validity of the calculated GFR AND GFRAA in patients over 70 years has not been determined. Clinical correlation is essential. LAB L501.1110 >60 mL/min Normal EST GFR 118 Result Comment: Non- GFR Calc LAB L501.1115 >60 mL/min Normal EST GFR - AA 142 Result Comment: GFR Calc LAB L501.1255 ml/min Normal Estimated CRCL 123.75 LAB L501.1300 10-20 RATIO BUN/CRE Normal 12.4 LAB L501.2200 8.5-10 mg/dL Low .1 CA 7.3 LAB L501.5300 136-14 mmol/L 5 NA Normal 143 LAB L501.5600 3.5-5. mmol/L Low 1 K 3.2 LAB L501.5900 98-107 mmol/L High CL 113 LAB L501.6100 21.0-3 mmol/L Low 2.0 CO2 20.0 LAB L501.6200 5-15 GAP Normal 10 Performed By: #### L500.2500 #### [facility] [address] [place], [address] BEDSIDE GLUCOSE Collected: 02/11/2018 Status: F Source: [place] 12:04 PM [facility] REPOSITORY TYPE CODE TESTS RESULT OUT OF REFERENCE UNITS RANGE LAB L501.080 70-110 mg/dL High BEDSIDE GLU 166 Result Comment: MANAGEMENT OF PATIENT CARE PER NURSING PROTOCOL Performed By: #### L501.080 #### [facility] Point of Care [address] [place] [address] BEDSIDE GLUCOSE Collected: 02/11/2018 Status: F Source: [place] 11:03 AM [facility] REPOSITORY TYPE CODE TESTS RESULT OUT OF REFERENCE UNITS RANGE LAB L501.080 70-110 mg/dL High BEDSIDE GLU 258 Result Comment: MANAGEMENT OF PATIENT CARE PER NURSING PROTOCOL Performed By: #### L501.080 #### [facility] Point of Care [address] [facility] [place] [address] BEDSIDE GLUCOSE Collected: 02/11/2018 Status: F Source: [place] 10:02 AM [facility] REPOSITORY TYPE CODE TESTS RESULT OUT OF REFERENCE UNITS RANGE LAB L501.080 70-110 mg/dL High BEDSIDE GLU 328 Result Comment: MANAGEMENT OF PATIENT CARE PER NURSING PROTOCOL Performed By: #### L501.080 #### [facility] Point of Care [address] [place], [place] [address] BEDSIDE GLUCOSE Collected: 02/11/2018 Status: F Source: [place] 8:59 AM [facility] REPOSITORY TYPE CODE TESTS RESULT OUT OF REFERENCE UNITS RANGE LAB L501.080 70-110 mg/dL High BEDSIDE GLU 231 Result Comment: MANAGEMENT OF PATIENT CARE PER NURSING PROTOCOL Performed By: #### L501.080 #### [facility] [place] Laboratory Point of Care [address] [place] [address] BASIC METABOLIC Collected: 02/11/2018 Status: F Source: RIP PROFILE ([place]) 8:50 AM [facility] REPOSITORY Order Comment: Comments: every 4 hours TYPE CODE TESTS RESULT OUT OF RANGE REFERENCE UNITS LAB L501.0100 74-106 mg/dL High GLU 213 Result Comment: Glucose result greater than or equal to 200 mg/dL suggests DIABETES MELLITUS per A.D.A. criteria. Please note revised GLUCOSE reference range effective 2017. LAB L501.1000 7-18 mg/dL Normal BUN 12 LAB L501.1100 0.70-1.30 mg/dL Normal CREAT,SERUM 0.95 Result Comment: The validity of the calculated GFR AND GFRAA in patients over 70 years has not been determined. Clinical correlation is essential. LAB L501.1110 >60 mL/min Normal EST GFR 109 Result Comment: Non- GFR Calc LAB L501.1115 >60 mL/min Normal EST GFR - AA 132 Result Comment: GFR Calc LAB L501.1255 ml/min Normal Estimated CRCL 108.97 LAB L501.1300 10-20 RATIO BUN/CRE Normal 12.7 LAB L501.2200 8.5-10 mg/dL Low .1 CA 7.5 LAB L501.5300 136-14 mmol/L 5 NA Normal 140 LAB L501.5600 3.5-5. mmol/L 1 K Normal 3.9 Result Comment: Slight Hemolysis, Result may be falsely increased. LAB L501.5900 98-107 mmol/L High CL 111 LAB L501.6100 21.0-32.0 mmol/L Low CO2 20.0 LAB L501.6200 5-15 Normal 9 GAP Performed By: #### L500.2500 #### [facility] [address] [facility] [place], [address] LACTIC ACID Collected: 02/11/2018 Status: F Source: [place] 8:50 AM [facility] REPOSITORY Order Comment: Yes/No query for Sepsis Lactate Rule Y TYPE CODE TESTS RESULT OUT OF RANGE REFERENCE UNITS LAB L503.6005 0.4-2.0 mmol/L Normal LACTIC ACID 1.6 Performed By: #### L503.6005 #### [facility] [address] [place], [address] BEDSIDE GLUCOSE Collected: 02/11/2018 Status: F Source: [place] 8:07 AM [facility] REPOSITORY TYPE CODE TESTS RESULT OUT OF REFERENCE UNITS RANGE LAB L501.080 70-110 mg/dL High BEDSIDE GLU 198 Result Comment: MANAGEMENT OF PATIENT CARE PER NURSING PROTOCOL Performed By: #### L501.080 #### [facility] Point of Care [address] [place] [address] HISTORY AND PHYSICAL Observed: 02/11/2018 Status: F Source: [place] EXAM 8:06 AM [facility] REPOSITORY [facility] Medical Records Department [address] [place] [address] History and Physical 02/11/18 0537 MR#: [id number] Acct: [id number] Name: VAHID WANG Rep #: [id number] : 2000 17 From: Marcelo Dukes MD PCP: Scott Braden MD Status: ADM IN Y Location: ICU [id number] Problem List (1) GERD (gastroesophageal reflux disease) Status: Chronic (2) DKA, type 1 Status: Acute History of Present Illness Date of Admission: 02/11/18 Chief Complaint: Elevated blood glucose 1 day The patient is a 17 year old M with a significant history of type 1 diabetes and of multiple DKA who presents because his home blood glucose 1 day was elevated. He reports a home blood glucose level as high as the 500s. Also he reports that he felt dehydrated because he was drinking so much fluid and he was urinating so much. He denies anorexia. Past Medical History Past Medical History (Chronic Problems): Chronic Problems (Last Reviewed 01/18/18 @ 16:18 by Amanda Wilkinson) GERD (gastroesophageal reflux disease) (Chronic) Suicidal ideations (Chronic) DM I (diabetes mellitus, type I), uncontrolled (Chronic) BG varied .Noted a pattern of BG elevated after breakfast and dinner and at bedtime last visit and ask him to specifically check 2 hours before and after these times which he did not do. Will increase basaglar to 20 twice daily but he did not do. I have ask him again to do as he gets much better control. When control seems better he may reduce to 18 twice daily. Long discussion about potential complications and need to try. Medical History: Medical History (Last Reviewed 01/18/18 @ 16:18 by Amanda Wilkinson) Anxiety disorder F41.9 Back problem M53.9 Bone fracture T14.8XXA Diabetes type 1, uncontrolled E10.65 Dx : age 2 Last exacerbation : DKA : 09/08/17 Hypoglycemic episode : never ER visit : 09/13/17 Hearing problem H91.90 Liver disease K76.9 Seizure R56.9 Vision problem H54.7 Allergies No Known Allergies Allergy (Verified 02/11/18 02:51) Home Medications: Ambulatory Orders Medication Instructions Recorded insulin aspart U-100 100 unit/mL See Label Instructions SC QDAY 08/10/17 subcutaneous pen Surgical History: Surgical History (Last Reviewed 02/11/18 @ 07:49 by Marcelo Dukes MD) S/p bilateral myringotomy with tube placement Z96.22 Surgical History: - - BL ear tubes. Psychiatric History: Anxiety, Depression, Prior suicide attempt Smoking Status: Never smoker - *Family History Maternal Family History: Family History (Last Reviewed 01/18/18 @ 16:18 by Amanda Wilkinson) Mother Kidney disease History Items: Heart Disease, Renal Disease Paternal Family History: Family History (Last Reviewed 01/18/18 @ 16:18 by Amanda Wilkinson) Mother Kidney disease History Items: Heart Disease, - - Paternal family males w/ frequent hearing disorder. Review of Systems Constitutional: Denies: Chills, Fever, Weight Change HEENT: Denies: Head Aches, Sinus Congestion, Sinus Drainage Cardiovascular: Denies: Chest Pain, Palpitations Respiratory: Denies: Cough, Shortness of breath at rest, Sputum production Gastrointestinal: Reports: Abdominal Pain - Mild, that he attributes to playing basketball. Genitourinary: Reports: Frequency - Increased frequency Musculoskeletal: Denies: Joint Pain, Joint Tenderness Skin: Denies: Rash, Wounds Neurological: Denies: Numbness, Tingling, Focal weakness Psychiatric: Reports: Anxiety Hematologic/ Lymphatic: Denies: Easy Bruising, Easy Bleeding VTE Information - Inpt Only VTE Present on Admission: No VTE Mechan Device Prophylaxis: None VTE Pharm Prophylaxis ordered?: No Patient Problems: Active and Suspected Problems (Last Reviewed 01/18/18 @ 16:18 by Amanda Wilkinson) DKA, type 1 (Acute) - Physical Exam General: Alert, Oriented x3, Cooperative HEENT: Atraumatic, PERRLA, EOMI, Normocephalic Neck: Supple, No JVD, Negative Carotid Bruits Lungs: Clear to auscultation, Normal air movement Cardiovascular: Regular rate, No murmurs Abdomen: Bowel Sounds Present Extremities: No edema, Capillary Refill Less than 3 Seconds Skin: No rashes, No breakdown Musculoskeletal: No Tenderness to Palpation of Joints or Extremities Neurological: Cranial nerves II-XII grossly intact Vital Signs Temp Pulse Resp BP Pulse Ox 97.7 F L 78 17 109/72 98 02/11/18 02:48 02/11/18 05:13 02/11/18 05:13 02/11/18 05:13 02/11/18 05:13 Oxygen Delivery Method Room Air Weight: 61.6 kg Body Mass Index (BMI) 20.6 Finger Stick Blood Glucose 388 Laboratory Tests Past 24 Hrs POC Glucose POC Glucose 388 H Assessment/Plan All Active Problems (Last Reviewed 01/18/18 @ 16:18 by Amanda Wilkinson) DKA, type 1 (Acute) DKA (diabetic ketoacidoses) (Acute) The patient is a 17 year old M with a significant history of type 1 diabetes and of multiple DKA who presents because his home blood glucose 1 day was elevated and and she was found to be in DKA DKA Status post IV infusion and IV normal saline bolus at emergency department. The patient reports compliance with home insulin therapy His DKA could be secondary to insufficient insulin to meet his metabolic demands or stress. No indication of infection at this time. Serum glucose 400 acetone level small Anion gap of 25 Sodium 137, . Corrected sodium 140 Insulin drip started from emergency department; continue Because of potassium of 4.0 we will start patient on half- normal saline with potassium. BMP every 4 hours to calculate anion gap. N.p.o. for now Lactic acid ordered Admitted to ICU ICU electrolyte protocol ordered DVT prophylaxis Ambulation. Code Visit Inpatient E AND M: [id number] Init Hosp L2 02/11/18 0806 <Electronically signed by Marcelo Dukes MD> Date Marcelo Dukes MD Cosigner Signature: Date (if applicable) CC: Scott Braden MD; Marcelo Dukes MD Signed BEDSIDE GLUCOSE Collected: 02/11/2018 Status: F Source: RIP 7:08 AM [facility] REPOSITORY TYPE CODE TESTS RESULT OUT OF REFERENCE UNITS RANGE LAB L501.080 70-110 mg/dL High BEDSIDE GLU 260 Result Comment: MANAGEMENT OF PATIENT CARE PER NURSING PROTOCOL Performed By: #### L501.080 #### [facility] Point of Care [address] [place], [place] [address] BEDSIDE GLUCOSE Collected: 02/11/2018 Status: F Source: RIP 6:05 AM [facility] REPOSITORY TYPE CODE TESTS RESULT OUT OF REFERENCE UNITS RANGE LAB L501.080 70-110 mg/dL High BEDSIDE GLU 307 Result Comment: MANAGEMENT OF PATIENT CARE PER NURSING PROTOCOL Performed By: #### L501.080 #### [facility] Point of Care [address] [place] [address] EMERGENCY DEPARTMENT Observed: 02/11/2018 Status: F Source: [place] SUMMARY 5:58 AM [facility] REPOSITORY [facility] Medical Records Department [address] [place] [address] Emergency Department Summary 02/11/18 0351 MR#: [id number] Acct: [id number] Name: VAHID WANG Rep #: [id number] : 2000 17 From: Charles Cortez MD PCP: Scott Braden MD Status: ADM IN - ER Visit Summary Date of Service: 02/11/18 Chief Complaint: Elevated blood sugar and feels dehydrated History of Present Illness: The patient is a 17 M diabetes. Prior history of DKA before. States this evening around 8 PM he had a blood sugar 556. And he feels dehydrated. He denies nausea, vomiting or diarrhea. He denies fever. He denies abdominal pain. Physical Examination: Well-appearing young male. Vital signs are stable and afebrile. Pulse ox 97% on room air no hypoxia. H EENT exam unremarkable. Moist wheeze membranes. Neck nontender no lymphadenopathy. Lungs there to auscultation bilaterally. Heart regular rhythm no murmur rate about 100. Abdomen is soft and nontender. Normal bowel sounds. Nondistended. No peritoneal signs. No right lower quadrant tenderness. No hernias or masses. Moving all 4 extremities. No edema. Skin no rashes. Back exam nontender. Neurologically he is awake and alert. Following commands. Answering questions. Normal speech. No focal motor deficits. Test Results: White count 6. Hemoglobin is 15. BMP shows an anion gap of 25. With a CO2 of 11. A blood sugar of 400 and a creatinine of 1.5. There are small amounts of serum ketones. Clinically and lab ambrose he is in early DKA. Emergency Department Course and Treatment: Patient treated with 1 L of normal saline. Patient will be given a second liter normal saline. Started on insulin drip. Treatment Plan: Insulin drip. I will speak to the hospitalist and I have admitted to the ICU. Disposition: Discharge Impression: Acute DKA (diabetic ketoacidosis) History of insulin-dependent diabetes This note was generated with Spritzation software. It may contain incorrect words, spelling, and punctuation that were not noted in review of the chart prior to signing ED Disposition - Plan for ED Patient: Chief Complaint: General Illness Referrals: Scott Braden MD [Primary Care Provider] - What to do if you have Problems For any increased pain, shortness of breath, bleeding, nausea or vomiting, chest pain, or any unexpected problems, contact your Primary Care Provider. Call [facility] ([phone]) or report to the closest Emergency Room. Call 911 if necessary. 02/11/18 0558 <Electronically signed by Charles Cortez MD> Date Charles Cortez MD Cosigner Signature (If Indicated): Date CC: Scott Braden MD BEDSIDE GLUCOSE Collected: 02/11/2018 Status: F Source: [place] 5:05 AM [facility] REPOSITORY TYPE CODE TESTS RESULT OUT OF REFERENCE UNITS RANGE LAB L501.080 70-110 mg/dL High BEDSIDE GLU 388 Result Comment: MANAGEMENT OF PATIENT CARE PER NURSING PROTOCOL Performed By: #### L501.080 #### [facility] Point of Care [address] [place], [place] [address] ACETONE SERUM Collected: 02/11/2018 Status: F Source: [place] 3:40 AM [facility] REPOSITORY TYPE CODE TESTS RESULT OUT OF REFERENCE UNITS RANGE LAB L501.6900 NEG High ACETONE SERUM SMALL Performed By: #### L501.6900 #### [facility] [address] [place], [place], [address] CBC W/DIFF, AUTOMATED Collected: 02/11/2018 Status: C Source: [place] 3:40 AM [facility] REPOSITORY TYPE CODE TESTS RESULT OUT OF RANGE REFERENCE UNITS LAB L100.1000 4.4-11.0 K/mm3 Normal WBC 6.7 LAB L100.1200 4.6-6.2 M/mm3 Normal RBC 4.79 LAB L100.1300 13.0-16.5 g/dl Normal HGB 15.4 LAB L100.1400 40-54 % Normal HCT 43.5 LAB L100.1500 80-94 fL Normal MCV 90.8 LAB L100.1600 27.0-32.0 pg High MCH 32.2 LAB L100.1700 32-36 g/gl Normal MCHC 35.4 LAB L100.1810 11.6-14.6 % Normal RDW CV 13.5 LAB L100.1820 35.1-43.9 fl High RDW SD 44.3 LAB L100.1900 150-450 K/mm3 Normal PLT 329 LAB L100.2000 6.2-12.0 fl Normal MPV 9.5 LAB L100.2100 47-70 % Normal NEUT% 47.4 LAB L100.2200 19-41 % Normal LY% 33.5 LAB L100.2300 0-10 % Normal MONO% 9.8 LAB L100.2400 0-5 % High EO% 6.5 LAB L100.2500 0-1 % Normal BASO% 0.8 LAB L100.2550 0.0-0.9 % High IM GRAN % 2.000 Result Comment: IG% - Immature Granulocytes (promyelocytes, myelocytes and metamyelocytes) > 1% indicates that a LEFT SHIFT is Present. LAB L100.2620 2.0-7.7 X10 3/uL Normal Absolute Neut 3.2 LAB L100.2720 0.83-4.51 X10 3/ul Normal Absolute Lymph 2.23 LAB L100.9900 Normal PATH REV Reviewed Result Comment: Neutrophilic left shift. Clinical correlation necessary. Wally Barroso M.D. 02/12/18 AMENDED REPORT 02/12/18 1336 PATH REV previously reported as: November mariaa Performed By: #### L100.0100 #### [facility] [address] [place], [place], [address] BASIC METABOLIC Collected: 02/11/2018 Status: F Source: RIP PROFILE (BMP) 3:40 AM [facility] REPOSITORY TYPE CODE TESTS RESULT OUT OF RANGE REFERENCE UNITS LAB L501.0100 74-106 mg/dL High GLU 400 Result Comment: Glucose result greater than or equal to 200 mg/dL suggests DIABETES MELLITUS per A.D.A. criteria. Please note revised GLUCOSE reference range effective 2017. LAB L501.1000 7-18 mg/dL Normal BUN 15 LAB L501.1100 0.70-1.30 mg/dL High CREAT,SERUM 1.50 Result Comment: The validity of the calculated GFR AND GFRAA in patients over 70 years has not been determined. Clinical correlation is essential. LAB L501.1110 >60 mL/min Normal EST GFR 64 Result Comment: Non- GFR Calc LAB L501.1115 >60 mL/min Normal EST GFR - AA 77 Result Comment: GFR Calc LAB L501.1255 ml/min Normal Estimated CRCL 69.01 LAB L501.1300 10-20 RATIO Normal BUN/CRE 10.0 LAB L501.2200 8.5-10 mg/dL Normal .1 CA 8.5 LAB L501.5300 136-14 mmol/L Normal 5 NA 137 LAB L501.5600 3.5-5. mmol/L Normal 1 K 4.0 Result Comment: Slight Hemolysis, Result may be falsely increased. LAB L501.5900 98-107 mmol/L Normal CL 101 LAB L501.6100 21.0-32.0 mmol/L Low CO2 11.0 LAB L501.6200 5-15 High GAP 25 Performed By: #### L500.2500 #### [facility] [address] [place], [address] 12 LEAD ELECTROCARDIOGRAM Observed: 01/25/2018 Status: F Source: [place] 1:55 PM [facility] REPOSITORY [facility] Cardiovascular Services [address] [place] [address] 12 Lead EKG 01/23/187 MR#: [id number] Acct: [id number] Name: VAHID WANG Rep #: [id number] : 2000 17 From: Vince Gomez MD Attending Dr: Marcie Haines DO Status: DIS MAGGIE Ordering Dr: Augusto Rodriguez MD Date: 01/23/18 Location: ICU Sex: Dylan C Admitted: 01/23/18 Test Reason : DKA Blood Pressure : / mmHG Vent. Rate : 091 BPM Atrial Rate : 091 BPM P-R Int : 140 ms QRS Dur : 086 ms QT Int : 352 ms P-R-T Axes : 056 021 029 degrees QTc Int : 432 ms Normal sinus rhythm Normal ECG Confirmed by VINCE GOMEZ MD ([id number]), assistant editor CHRISSIE CACERES ([id number]) on 01/25/2018 1:55:00 PM Referred By: DC Confirmed By:VINCE GOMEZ MD 01/25/18 1355 Date Vince Gomez MD CC: Scott Braden MD; Augusto Rodriguez MD; Marcie Haines DO Signed CONSULTATION Observed: 01/25/2018 Status: F Source: [place] 5:35 AM [facility] Medical Records Department [address] [place] [address] Consultation 01/24/18 1006 MR#: [id number] Acct: [id number] Name: VAHID WANG Rep #: [id number] : 2000 17 From: Hong Meyer MD PCP: Scott Braden MD Status: DIS MAGGIE Y Location: ICU [id number] Problem List (1) Fatty liver Status: Suspected (2) DM I (diabetes mellitus, type I), uncontrolled Status: Chronic Qualifiers: Diabetes mellitus complication status: with unspecified complications Comment: BG varied .Noted a pattern of BG elevated after breakfast and dinner and at bedtime last visit and ask him to specifically check 2 hours before and after these times which he did not do. Will increase basaglar to 20 twice daily but he did not do. I have ask him again to do as he gets much better control. When control seems better he may reduce to 18 twice daily. Long discussion about potential complications and need to try. (3) DKA (diabetic ketoacidoses) Status: Acute Qualifiers: Diabetes mellitus type: type 1 Diabetes mellitus complication detail: without coma Qualified Code(s): E10.10 - Type 1 diabetes mellitus with ketoacidosis without coma Reason for Consult Date of Consultation: 01/24/18 Reason for Consultation: DKA History of Present Illness: The patient is a 17 year old M, with past medical history listed below, who presented to [facility] on 01/23/2018 with complaints of excessive thirst and nausea. Patient had reported progressive blood sugars despite reported compliance with insulin therapy. Patient did have a history of a previous DKA admissions in the last year, but states that he follows with endocrinology nurse practitioner here [facility]. In the emergency room, patient was noted to have an anion gap of 25 with a glucose of 717 and a bicarbonate of 13. Patient was placed in the intensive care unit and initiated on DKA protocol. Overnight, patient did well. Patient's gap was closed 2 this morning and was able to transition over to subcu insulin. Patient did tolerate breakfast well. Patient states he typically takes his long-acting insulin in the evening, so was given NPH without difficulty. Patient denies any recent illness and believes that his exacerbation and diabetes is secondary to his fatty liver. Patient states that he starts to feel nausea and dehydration and then needs to DKA. Patient states that he is compliant with therapy. Patient denies any current complaints such as fever, chills, nausea, vomiting, diarrhea, epistaxis, hemoptysis, melena, rash, rhinorrhea or sick exposures. Review of systems otherwise negative 10 systems at this time. Past Medical History Past Medical History (Chronic Problems): Chronic Problems (Last Reviewed 01/18/18 @ 16:18 by Amanda Wilkinson) Suicidal ideations (Chronic) DM I (diabetes mellitus, type I), uncontrolled (Chronic) BG varied .Noted a pattern of BG elevated after breakfast and dinner and at bedtime last visit and ask him to specifically check 2 hours before and after these times which he did not do. Will increase basaglar to 20 twice daily but he did not do. I have ask him again to do as he gets much better control. When control seems better he may reduce to 18 twice daily. Long discussion about potential complications and need to try. Medical History: Medical History (Last Reviewed 01/18/18 @ 16:18 by Amanda Wilkinson) Anxiety disorder F41.9 Back problem M53.9 Bone fracture T14.8XXA Diabetes type 1, uncontrolled E10.65 Dx : age 2 Last exacerbation : DKA : 09/08/17 Hypoglycemic episode : never ER visit : 09/13/17 Hearing problem H91.90 Liver disease K76.9 Seizure R56.9 Vision problem H54.7 Allergies No Known Allergies Allergy (Verified 01/23/18 17:43) Home Medications: Ambulatory Orders Medication Instructions Recorded insulin aspart U-100 100 unit/mL See Label Instructions SC QDAY 08/10/17 subcutaneous pen Insulin Glargine,Hum.rec.anlog 30 unit SQ QHS 10/26/17 Surgical History: Surgical History (Last Reviewed 01/18/18 @ 16:18 by Amanda Wilkinson) S/p bilateral myringotomy with tube placement Z96.22 Surgical History: - - BL ear tubes. Psychiatric History: Anxiety, Depression, Prior suicide attempt Lives: With Family Smoking Status: Never smoker Alcohol: None Drugs: None - *Family History Maternal Family History: Family History (Last Reviewed 01/18/18 @ 16:18 by Amanda Wilkinson) Mother Kidney disease History Items: Heart Disease, Renal Disease Paternal Family History: Family History (Last Reviewed 01/18/18 @ 16:18 by Amanda Wilkinson) Mother Kidney disease History Items: Heart Disease, - - Paternal family males w/ frequent hearing disorder. Review of Systems Comment: See HPI Patient Problems: Active and Suspected Problems (Last Reviewed 01/18/18 @ 16:18 by Amanda Wilkinson) Fatty liver (Suspected) - Physical Exam General: Alert, Oriented x3, Cooperative, No apparent distress, - - Speaking in full sentences. HEENT: Atraumatic, PERRLA, EOMI, Normocephalic, - - No scleral icterus or injection noted. No temporal wasting noted. Oral: Moist Mucosa, No Gingival or Mucosal Lesions/ Ulcerations Neck: Supple, No JVD, No Nodes Lungs: Clear to auscultation, Normal air movement, No rhonchi, No wheeze, No rales Cardiovascular: Regular rate, Regular Rhythm, Normal S1, Normal S2, No murmurs, No rub noted, No Gallop Abdomen: Bowel Sounds Present, Soft, Non Tender, Non-Distended Extremities: No clubbing, No cyanosis, No edema, Capillary Refill Less than 3 Seconds Skin: No rashes, No breakdown Musculoskeletal: No Tenderness to Palpation of Joints or Extremities, No Muscle Wasting Lymphatic: No Cervical, Supraclavicular, or Inguinal Adenopathy Neurological: Cranial nerves II-XII grossly intact, Neuro grossly intact, Motor Exam 5/5 strength throughout Psych/Mental Status: Alert and oriented to time, place, person, mood and affect Vital Signs Temp Pulse Resp BP Pulse Ox 36.8 C 94 19 H 134/88 H 98 01/24/18 08:00 01/24/18 09:00 01/24/18 09:00 01/24/18 09:00 01/24/18 09:00 Oxygen Delivery Method Room Air Weight: 64.8 kg Body Mass Index (BMI) 22.8 Intake and Output for Last 24 Hours Intake Total 366.9 / 366.9 1050 / 1050 Balance 366.9 / 366.9 1050 / 1050 Laboratory Tests Past 24 Hrs WBC RBC Hgb Hct MCV MCH MCHC WBC 6.5 RBC 4.40 L Hgb 14.1 Hct 40.0 MCV 90.9 MCH 32.0 MCHC 35.3 RDW 13.4 RDW Differential 44.4 H POC Glucose POC Glucose 124 H 116 H 140 H POC Glucose 148 H 186 H 189 H POC Glucose 209 H 220 H 239 H POC Glucose 322 H Assessment/Plan Active and Suspected Problems (Last Reviewed 01/18/18 @ 16:18 by Amanda Wilkinson) Fatty liver (Suspected) RECOMMENDATIONS: 1. Diabetic teaching 2. NPH this morning 1 with sliding scale with meals 3. Potential discharge later today per hospitalist IMPRESSIONS: 1. Acute diabetic ketoacidosis without coma Patient is reporting compliance with therapy, but gives no salient features of complicated diabetic control. Patient is not reporting any infections at this time. Patient was treated with protocol and has appropriately responded. Patient currently tolerating a p.o. diet with subcu insulin. Did stress to the patient the importance of avoiding future complications as this has been linked with complications of circulation and renal function. Patient voiced understanding. Reasonable to have patient receive diabetic education. Patient currently hemodynamically stable on room air. Will sign off from a critical care perspective. 2. Fatty liver Patient is reporting a history of fatty liver, but there is no documentation to confirm this finding. Code Visit Inpatient E AND M: [id number] Init Hosp L2 01/25/18 0535 <Electronically signed by Hong Meyer MD> Date Hong Meyer MD Cosigner Signature (if applicable): Date CC: Scott Braden MD; Hong Meyer MD Signed DISCHARGE SUMMARY Observed: 01/24/2018 Status: F Source: RIP 11:52 AM [facility] REPOSITORY [facility] Medical Records Department [address] [place] [address] Discharge Summary 01/24/18 1148 MR#: [id number] Acct: [id number] Name: VAHID WANG Rep #: [id number] : 2000 17 From: Marcie Haines DO PCP: Scott Braden MD Status: ADM IN Y Location: ICU [id number] Discharge Date and Diagnosis - Problem List Patient Problems: Active and Suspected Problems (Last Reviewed 01/18/18 @ 16:18 by Amanda Wilkinson) DKA (diabetic ketoacidoses) (Acute) Date of Admission: 01/23/18 Date of Discharge: 01/24/18 - Primary Discharge Diagnosis Active and Suspected Problems (Last Reviewed 01/18/18 @ 16:18 by Amanda Wilkinson) Fatty liver (Suspected) - Secondary Discharge Diagnosis Chronic Problems (Last Reviewed 01/18/18 @ 16:18 by Amanda Wilkinson) Suicidal ideations (Chronic) DM I (diabetes mellitus, type I), uncontrolled (Chronic) BG varied .Noted a pattern of BG elevated after breakfast and dinner and at bedtime last visit and ask him to specifically check 2 hours before and after these times which he did not do. Will increase basaglar to 20 twice daily but he did not do. I have ask him again to do as he gets much better control. When control seems better he may reduce to 18 twice daily. Long discussion about potential complications and need to try. Hospital Course and Treatment Operations: None Procedures: None Summary of Care Provided: The patient is a 17 year old M presents again with DKA. This is now the patient's eighth admission at this facility with DKA in the past calendar year. Patient states that he is taking his insulin as he is prescribed which includes 30 mg units of long-acting insulin at night +1 unit in the afternoon. Note from KASHIF chavez states that he should be on 18-20 twice daily. Patient states that that actually caused his blood sugar to go up. I told the patient that that does not make sense that his blood sugar go up despite being on more insulin. I did discuss this with KASHIF gordon who is states that she has been trying to increase his insulin and did recommend him being on twice daily insulin. It is now her recommendation that he be on 20 units twice a day and will make further modifications when he follows up in the office. Compliance is certainly an issue and I did address diet with the patient. Patient states that he does drink Gatorade and I told him to avoid that and to avoid sugary beverages and essentially told him not to drink his calories. Patient states that he does not eat sweets or other baked goods question if that is accurate or not. But patient will be discharged with instructions to take 20 units of his long-acting insulin twice daily which he has been told to do so previously. Physical exam: Patient is no acute distress and afebrile. Flat affect. [] Discharge Diet: 1800 Calorie Control Diet Discharge Activity: Return to Normal Activity Home Medications: Medications to take at Discharge insulin aspart U-100 100 unit/mL subcutaneous pen See Label Instructions SC QDAY 08/10/17 Ondansetron [Zofran Odt] 4 mg PO Q4H PRN PRN #7 tab.rapdis 01/03/18 Omeprazole 40 mg PO DAILY 01/23/18 Insulin Glargine,Hum.rec.anlog [Basaglar Kwikpen U-100] 20 unit SQ BID #0 01/24/18 Primary Care Physician: Scott Braden MD [Primary Care Provider] - Within 2 Weeks Please Follow Up With: Ilda Chavez, [employer]NAGER-C When: 1-2 weeks Patient Instructions: How to Check Your Blood Sugar, Healthy Meals for Diabetes, Diabetes: Understanding Carbohydrates, Eating Out When You Have Diabetes, Exercise to Manage Your Blood Sugar Disposition: Home Minutes spent on discharge:: 32 Patient Condition:: Fair Medical Necessity - Tobacco Use Smoking Status: Never smoker Meaningful Use Info Meaningful Use Diagnoses (Choose all that apply): None applicable Code Visit OBSV [place] M: [id number] Observation care discharge 01/24/18 1151 <Electronically signed by Marcie Haines DO> Date Marcie Haines DO Cosigner Signature (if applicable): Date CC: Ilda Chavez NP; Scott Braden MD; Marcie Haines DO Signed DISCHARGE INSTRUCTION Observed: 01/24/2018 Status: F Source: RIP 11:47 AM [facility] REPOSITORY [facility] Medical Records Department [address] [place] [address] Instructions for Home/Discharge Instructions 01/24/18 1145 MR#: [id number] Acct: [id number] Name: FELIPEVAHID Garcia Rep #: [id number] : 2000 17 From: Marcie Haines DO PCP: Scott Braden MD Status: ADM IN You will use the following diet at home:: Calorie/Carbohydrate Controlled (specify 1200, 1400, etc) - 1800. No juice or sugary drinks. No candies. Your food should be the consistency of: Regular Instructions: How to Check Your Blood Sugar, Healthy Meals for Diabetes, Diabetes: Understanding Carbohydrates, Eating Out When You Have Diabetes, Exercise to Manage Your Blood Sugar Allergies/Adverse Reactions: Allergies No Known Allergies Allergy (Verified 01/23/18 17:43) Medications to take at Discharge insulin aspart U-100 100 unit/mL subcutaneous pen See Label Instructions SC QDAY 08/10/17 Ondansetron [Zofran Odt] 4 mg PO Q4H PRN PRN #7 tab.rapdis 01/03/18 Omeprazole 40 mg PO DAILY 01/23/18 Insulin Glargine,Hum.rec.anlog [Basaglar Kwikpen U-100] 20 unit SQ BID #0 01/24/18 Primary Care Physician: Scott Braden MD [Primary Care Provider] - Within 2 Weeks Test Results: Test results from this visit will be discussed in further detail at your follow-up appointment, if applicable. Please Follow Up With: Ilda Chavez NP-C When: 1-2 weeks Proposed Discharge Date: 01/24/18 01/24/18 1147 <Electronically signed by Marcie Jopperi DO> Date Marcie Haines DO CC: Scott Braden MD; Hong Meyer MD BEDSIDE GLUCOSE Collected: 01/24/2018 Status: F Source: RIP 11:33 AM [facility] REPOSITORY TYPE CODE TESTS RESULT OUT OF REFERENCE UNITS RANGE LAB L501.080 70-110 mg/dL High BEDSIDE GLU 310 Result Comment: MANAGEMENT OF PATIENT CARE PER NURSING PROTOCOL Performed By: #### L501.080 #### [facility] Point of Care [address] [place], [place] [address] BASIC METABOLIC Collected: 01/24/2018 Status: F Source: RIP PROFILE (BMP) 11:25 AM [facility] REPOSITORY Order Comment: Comments: Call MD with results STAT TYPE CODE TESTS RESULT OUT OF RANGE REFERENCE UNITS LAB L501.0100 74-106 mg/dL High GLU 291 Result Comment: Glucose result greater than or equal to 200 mg/dL suggests DIABETES MELLITUS per A.D.A. criteria. Please note revised GLUCOSE reference range effective 2017. LAB L501.1000 7-18 mg/dL Normal BUN 10 LAB L501.1100 0.70-1.30 mg/dL Normal CREAT,SERUM 0.92 Result Comment: The validity of the calculated GFR AND GFRAA in patients over 70 years has not been determined. Clinical correlation is essential. LAB L501.1110 >60 mL/min Normal EST GFR 112 Result Comment: Non- GFR Calc LAB L501.1115 >60 mL/min Normal EST GFR - AA 135 Result Comment: GFR Calc LAB L501.1255 ml/min Normal Estimated CRCL 116.54 LAB L501.1300 10-20 RATIO BUN/CRE Normal 10.8 LAB L501.2200 8.5-10 mg/dL Low .1 CA 7.9 LAB L501.5300 136-14 mmol/L 5 NA Normal 137 LAB L501.5600 3.5-5. mmol/L 1 K Normal 4.3 LAB L501.5900 98-107 mmol/L CL Normal 105 LAB L501.6100 21.0-3 mmol/L Low 2.0 CO2 20.0 LAB L501.6200 5-15 GAP Normal 12 Performed By: #### L500.2500 #### [facility] [address] [facility] [address] BEDSIDE GLUCOSE Collected: 01/24/2018 Status: F Source: [place] 8:00 AM [facility] - [place] REPOSITORY TYPE CODE TESTS RESULT OUT OF REFERENCE UNITS RANGE LAB L501.080 70-110 mg/dL High BEDSIDE GLU 124 Result Comment: MANAGEMENT OF PATIENT CARE PER NURSING PROTOCOL Performed By: #### L501.080 #### [facility] Point of Care [address] [place] [address] BEDSIDE GLUCOSE Collected: 01/24/2018 Status: F Source: [place] 7:23 AM [facility] [place] REPOSITORY TYPE CODE TESTS RESULT OUT OF REFERENCE UNITS RANGE LAB L501.080 70-110 mg/dL High BEDSIDE GLU 116 Result Comment: MANAGEMENT OF PATIENT CARE PER NURSING PROTOCOL Performed By: #### L501.080 #### [facility] Point of Care [address] [place] [address] BEDSIDE GLUCOSE Collected: 01/24/2018 Status: F Source: [place] 6:04 AM [facility] [place] REPOSITORY TYPE CODE TESTS RESULT OUT OF REFERENCE UNITS RANGE LAB L501.080 70-110 mg/dL High BEDSIDE GLU 140 Result Comment: MANAGEMENT OF PATIENT CARE PER NURSING PROTOCOL Performed By: #### L501.080 #### [facility] Point of Care [address] [facility] [place] [address] COMPREHENSIVE METABOLIC Collected: 01/24/2018 Status: F Source: [place] PROFIL 6:00 AM [facility] [place] REPOSITORY TYPE CODE TESTS RESULT OUT OF RANGE REFERENCE UNITS LAB L501.0100 74-106 mg/dL High GLU 137 Result Comment: Fasting Glucose result greater than or equal to 126 mg/dL suggests DIABETES MELLITUS per A.D.A. criteria. Please note revised GLUCOSE reference range effective 2017. LAB L501.1000 7-18 mg/dL Normal BUN 10 LAB L501.1100 0.70-1.30 mg/dL Normal CREAT,SERUM 0.84 Result Comment: The validity of the calculated GFR AND GFRAA in patients over 70 years has not been determined. Clinical correlation is essential. LAB L501.1110 >60 mL/min Normal EST GFR 124 Result Comment: Non- GFR Calc LAB L501.1115 >60 mL/min Normal EST GFR - AA 150 Result Comment: GFR Calc LAB L501.1255 ml/min Normal Estimated CRCL 127.64 LAB L501.1300 10-20 RATIO BUN/CRE Normal 11.8 LAB L501.1500 6.4-8. g/dL Low 2 T PROT 6.0 LAB L501.1800 3.2-5. g/dL Low 0 ALB 2.9 LAB L501.1950 2.2-4. g/dL 2 GLOB Normal 3.1 LAB L501.2000 0.9-2. RATIO 4 A/G Normal 0.9 LAB L501.2200 8.5-10 mg/dL Low .1 CA 7.9 LAB L501.4100 15-37 U/L High AST 95 Result Comment: Slight Hemolysis, Result may be falsely increased. LAB L501.4305 45-117 U/L Normal ALK P 100 LAB L501.4405 16-61 U/L High ALT 134 LAB L501.4600 0.20-1.00 mg/dL Normal T BILI 0.50 LAB L501.5300 136-145 mmol/L Normal NA 139 LAB L501.5600 3.5-5.1 mmol/L Normal K 3.5 Result Comment: Slight Hemolysis, Result may be falsely increased. LAB L501.5900 98-107 mmol/L Normal CL 107 LAB L501.6100 21.0-32.0 mmol/L Normal CO2 22.0 LAB L501.6200 5-15 Normal GAP 10 Performed By: #### L500.4050 #### [facility] [address] [place], [place], [address] CBC W/DIFF, AUTOMATED Collected: 01/24/2018 Status: C Source: [place] 6:00 AM [facility] [place] REPOSITORY TYPE CODE TESTS RESULT OUT OF RANGE REFERENCE UNITS LAB L100.1000 4.4-11.0 K/mm3 Normal WBC 6.5 LAB L100.1200 4.6-6.2 M/mm3 Low RBC 4.40 LAB L100.1300 13.0-16.5 g/dl Normal HGB 14.1 LAB L100.1400 40-54 % Normal HCT 40.0 LAB L100.1500 80-94 fL Normal MCV 90.9 LAB L100.1600 27.0-32.0 pg Normal MCH 32.0 LAB L100.1700 32-36 g/gl Normal MCHC 35.3 LAB L100.1810 11.6-14.6 % Normal RDW CV 13.4 LAB L100.1820 35.1-43.9 fl High RDW SD 44.4 LAB L100.1900 150-450 K/mm3 Normal PLT 246 LAB L100.2000 6.2-12.0 fl Normal MPV 9.3 LAB L100.2100 47-70 % Low NEUT% 39.4 LAB L100.2200 19-41 % High LY% 42.0 LAB L100.2300 0-10 % Normal MONO% 9.2 LAB L100.2400 0-5 % High EO% 5.5 LAB L100.2500 0-1 % High BASO% 1.1 LAB L100.2550 0.0-0.9 % High IM GRAN % 2.800 Result Comment: IG% - Immature Granulocytes (promyelocytes, myelocytes and metamyelocytes) > 1% indicates that a LEFT SHIFT is Present. LAB L100.2620 2.0-7.7 X10 3/uL Normal Absolute Neut 2.6 LAB L100.2720 0.83-4.51 X10 3/ul Normal Absolute Lymph 2.74 LAB L100.9900 Normal PATH REV Reviewed Result Comment: AMENDED REPORT 01/26/18 1029 PATH REV previously reported as: November Performed By: #### L100.0100 #### [facility] [address] [place], [place], [address] BEDSIDE GLUCOSE Collected: 01/24/2018 Status: F Source: [place] 4:47 AM [facility] [place] REPOSITORY TYPE CODE TESTS RESULT OUT OF REFERENCE UNITS RANGE LAB L501.080 70-110 mg/dL High BEDSIDE GLU 148 Result Comment: MANAGEMENT OF PATIENT CARE PER NURSING PROTOCOL Performed By: #### L501.080 #### [facility] Point of Care [address] [place] [address] BEDSIDE GLUCOSE Collected: 01/24/2018 Status: F Source: [place] 2:58 AM [facility] [place] REPOSITORY TYPE CODE TESTS RESULT OUT OF REFERENCE UNITS RANGE LAB L501.080 70-110 mg/dL High BEDSIDE GLU 186 Result Comment: MANAGEMENT OF PATIENT CARE PER NURSING PROTOCOL Performed By: #### L501.080 #### [facility] [place] [place] [facility] Point of Care [address] [place] [address] BEDSIDE GLUCOSE Collected: 01/24/2018 Status: F Source: [place] 2:05 AM [facility] [place] REPOSITORY TYPE CODE TESTS RESULT OUT OF REFERENCE UNITS RANGE LAB L501.080 70-110 mg/dL High BEDSIDE GLU 189 Result Comment: MANAGEMENT OF PATIENT CARE PER NURSING PROTOCOL Performed By: #### L501.080 #### [facility] Point of Care [address] [place] [address] BASIC METABOLIC Collected: 01/24/2018 Status: F Source: [place] PROFILE (BMP) 2:00 AM [facility] [place] REPOSITORY Order Comment: Comments: Call MD with results STAT TYPE CODE TESTS RESULT OUT OF RANGE REFERENCE UNITS LAB L501.0100 74-106 mg/dL High GLU 216 Result Comment: Glucose result greater than or equal to 200 mg/dL suggests DIABETES MELLITUS per A.D.A. criteria. Please note revised GLUCOSE reference range effective 2017. LAB L501.1000 7-18 mg/dL Normal BUN 14 LAB L501.1100 0.70-1.30 mg/dL Normal CREAT,SERUM 0.95 Result Comment: The validity of the calculated GFR AND GFRAA in patients over 70 years has not been determined. Clinical correlation is essential. LAB L501.1110 >60 mL/min Normal EST GFR 108 Result Comment: Non- GFR Calc LAB L501.1115 >60 mL/min Normal EST GFR - AA 131 Result Comment: GFR Calc LAB L501.1255 ml/min Normal Estimated CRCL 112.86 LAB L501.1300 10-20 RATIO BUN/CRE Normal 14.7 LAB L501.2200 8.5-10 mg/dL Low .1 CA 8.0 LAB L501.5300 136-14 mmol/L 5 NA Normal 139 LAB L501.5600 3.5-5. mmol/L 1 K Normal 3.6 Result Comment: Slight Hemolysis, Result may be falsely increased. LAB L501.5900 98-107 mmol/L Normal CL 105 LAB L501.6100 21.0-32.0 mmol/L Low CO2 19.0 LAB L501.6200 5-15 Normal GAP 15 Performed By: #### L500.2500 #### [facility] [address] [place], [address] BEDSIDE GLUCOSE Collected: 01/24/2018 Status: F Source: [place] 12:55 AM [facility] [place] REPOSITORY TYPE CODE TESTS RESULT OUT OF REFERENCE UNITS RANGE LAB L501.080 70-110 mg/dL High BEDSIDE GLU 209 Result Comment: MANAGEMENT OF PATIENT CARE PER NURSING PROTOCOL Performed By: #### L501.080 #### [facility] Point of Care [address] [place] [address] EMERGENCY DEPARTMENT Observed: 01/24/2018 Status: F Source: [place] SUMMARY 12:03 AM [facility] [place] REPOSITORY [facility] Medical Records Department [address] [place] [address] Emergency Department Summary 01/23/18 192 MR#: [id number] Acct: [id number] Name: VAHID WANG Rep #: [id number] : 2000 17 From: Augusto Rodriguez MD PCP: Scott Braden MD Status: ADM IN - ER Visit Summary Date of Service: 01/23/18 Chief Complaint: Dehydrated History of Present Illness: The patient is a 17 M with type 1 diabetes. He has had excessive thirst over the past couple days, and he continues to drink a lot but still feels dehydrated. His blood sugars were in the 200s yesterday and then the were high today. He says that he is taking his medications as prescribed and has not missed doses or changed his treatment regimen. He has a history of DKA. He also has a history of fatty liver and has been having some right upper quadrant pain. Physical Examination: Vital signs unremarkable except for heart rate of 101 and respiratory rate of 22. He is afebrile. Nontoxic and in no acute distress. Mucous membranes are slightly dry. Skin appears normal. Heart regular. Lungs clear. Abdomen soft and nontender. Test Results: Glucose 717, anion gap 25, CO2 13. Other laboratory studies are pending. Emergency Department Course and Treatment: Patient treated with a fluid bolus. Placed on a monitor. Will start insulin drip for DKA. Acetones large. Ketones in urine. Transaminases elevated. Lipase normal. Patient treated with fluids and insulin drip started. Vitals remained stable. He is resting comfortably. Spoke with the top and trim worker and the hospitalist to admit for further care. Treatment Plan: As above Disposition: Admission Impression: 1. DKA 2. Elevated liver enzymes This note was generated with Poxel dictation software. It may contain incorrect words, spelling, and punctuation that were not noted in review of the chart prior to signing ED Disposition - Plan for ED Patient: Chief Complaint: Hyperglycemia Referrals: Scott Braden MD [Primary Care Provider] - What to do if you have Problems For any increased pain, shortness of breath, bleeding, nausea or vomiting, chest pain, or any unexpected problems, contact your Primary Care Provider. Call [facility] ([phone]) or report to the closest Emergency Room. Call 911 if necessary. 01/24/18 0003 <Electronically signed by Augusto Rodirguez MD> Date Augusto Rodriguez MD Cosigner Signature (If Indicated): Date CC: Scott Braden MD BEDSIDE GLUCOSE Collected: 01/23/2018 Status: F Source: [place] 11:48 PM [facility] [place] REPOSITORY TYPE CODE TESTS RESULT OUT OF REFERENCE UNITS RANGE LAB L501.080 70-110 mg/dL High BEDSIDE GLU 220 Result Comment: MANAGEMENT OF PATIENT CARE PER NURSING PROTOCOL Performed By: #### L501.080 #### [facility] Point of Care [facility] [place] [address] BEDSIDE GLUCOSE Collected: 01/23/2018 Status: F Source: [place] 11:01 PM [facility] [place] REPOSITORY TYPE CODE TESTS RESULT OUT OF REFERENCE UNITS RANGE LAB L501.080 70-110 mg/dL High BEDSIDE GLU 239 Result Comment: MANAGEMENT OF PATIENT CARE PER NURSING PROTOCOL Performed By: #### L501.080 #### [facility] Point of Care [address] [place] [address] M R STAPH AUREUS Collected: 01/23/2018 Status: F Source: [place] DNA BY PCR 10:36 PM [facility] [place] REPOSITORY TYPE CODE TESTS RESULT OUT OF RANGE REFERENCE UNITS LAB L8200.1100 Negative Normal MRSA Negative RESULT Performed By: #### L8200.1000 #### [facility] [address] [place], [address] BASIC METABOLIC Collected: 01/23/2018 Status: F Source: [place] PROFILE (BMP) 10:10 PM [facility] [place] REPOSITORY Order Comment: Comments: Call MD with results STAT TYPE CODE TESTS RESULT OUT OF RANGE REFERENCE UNITS LAB L501.0100 74-106 mg/dL High GLU 331 Result Comment: Glucose result greater than or equal to 200 mg/dL suggests DIABETES MELLITUS per A.D.A. criteria. Please note revised GLUCOSE reference range effective 2017. LAB L501.1000 7-18 mg/dL Normal BUN 18 LAB L501.1100 0.70-1.30 mg/dL Normal CREAT,SERUM 1.11 Result Comment: The validity of the calculated GFR AND GFRAA in patients over 70 years has not been determined. Clinical correlation is essential. LAB L501.1110 >60 mL/min Normal EST GFR 91 Result Comment: Non- GFR Calc LAB L501.1115 >60 mL/min Normal EST GFR - AA 110 Result Comment: GFR Calc LAB L501.1255 ml/min Normal Estimated CRCL 96.59 LAB L501.1300 10-20 RATIO Normal BUN/CRE 16.2 LAB L501.2200 8.5-10 mg/dL Low .1 CA 8.2 LAB L501.5300 136-14 mmol/L Normal 5 NA 138 LAB L501.5600 3.5-5. mmol/L Normal 1 K 4.0 LAB L501.5900 98-107 mmol/L Normal CL 105 LAB L501.6100 21.0-3 mmol/L Low 2.0 CO2 alert 9.0 Result Comment: CALLED [facility] ICU WITH CRITICAL CO2 BY [facility] 01-23-18 AT 2306PM READ BACK BY SAME LAB L501.6200 5-15 High GAP 24 Performed By: #### L500.2500 #### [facility] [address] [place], [address] BEDSIDE GLUCOSE Collected: 01/23/2018 Status: F Source: [place] 10:00 PM [facility] [place] REPOSITORY TYPE CODE TESTS RESULT OUT OF REFERENCE UNITS RANGE LAB L501.080 70-110 mg/dL High BEDSIDE GLU 322 Result Comment: MANAGEMENT OF PATIENT CARE PER NURSING PROTOCOL Performed By: #### L501.080 #### [facility] Point of Care [address] [facility] [place] [address] HISTORY AND PHYSICAL Observed: 01/23/2018 Status: F Source: [place] EXAM 9:51 PM [facility] [place] REPOSITORY [facility] Medical Records Department [address] [place] [address] History and Physical 01/23/182122 MR#: [id number] Acct: [id number] Name: VAHID WANG Rep #: [id number] : 2000 17 From: Diego Abdullahi MD PCP: Scott Braden MD Status: ADM IN Y Location: ICU [id number] Problem List (1) DM I (diabetes mellitus, type I), uncontrolled Status: Chronic Qualifiers: Comment: BG varied .Noted a pattern of BG elevated after breakfast and dinner and at bedtime last visit and ask him to specifically check 2 hours before and after these times which he did not do. Will increase basaglar to 20 twice daily but he did not do. I have ask him again to do as he gets much better control. When control seems better he may reduce to 18 twice daily. Long discussion about potential complications and need to try. (2) DKA (diabetic ketoacidoses) Status: Acute Qualifiers: History of Present Illness Date of Admission: 01/23/18 Chief Complaint: Thirsty, dehydrated. The patient is a 17 year old M with past medical history as mentioned above presented to the emergency room because of thirst and severe dehydration as well as elevated blood blood sugar. This patient has history of type 1 diabetes mellitus with recurrent admissions for DKA. He mentioned that since yesterday, his blood pressure started to creep up and was up to 312 mg/dL. Today, he started complaining of being very thirsty and dehydrated, associated with weakness and fatigue and also complained of abdominal pain. Abdominal pain, right-sided abdominal pain, vague pain, dull aching, 3-4 out of 10 in severity, has been going on for long time but seemed to be got worse since yesterday, no associated symptoms and no aggravating or relieving factors. He denied nausea vomiting. He denied fever chills. He denies cough or sputum production. He denies urinary symptoms. He stated that he takes his insulin as prescribed and he did not miss any dose. In the emergency department, his vital signs were stable. His routine blood work is remarkable for sodium of 132, BUN of 22, serum bicarb of 13, anion gap was 25, blood sugar 717. LFT was elevated, lipase was normal. Urinalysis revealed glucose and ketones, no evidence of UTI. Urine acetone was large. His EKG revealed normal sinus rhythm without evidence of acute ischemic changes or cardiac arrhythmias. He is being admitted for diabetic ketoacidosis. Past Medical History Past Medical History (Chronic Problems): Chronic Problems (Last Reviewed 01/18/18 @ 16:18 by Amanda Wilkinson) Suicidal ideations (Chronic) DM I (diabetes mellitus, type I), uncontrolled (Chronic) BG varied .Noted a pattern of BG elevated after breakfast and dinner and at bedtime last visit and ask him to specifically check 2 hours before and after these times which he did not do. Will increase basaglar to 20 twice daily but he did not do. I have ask him again to do as he gets much better control. When control seems better he may reduce to 18 twice daily. Long discussion about potential complications and need to try. Medical History: Medical History (Last Reviewed 01/18/18 @ 16:18 by Amanda Wilkinson) Anxiety disorder F41.9 Back problem M53.9 Bone fracture T14.8XXA Diabetes type 1, uncontrolled E10.65 Dx : age 2 Last exacerbation : DKA : 09/08/17 Hypoglycemic episode : never ER visit : 09/13/17 Hearing problem H91.90 Liver disease K76.9 Seizure R56.9 Vision problem H54.7 Allergies No Known Allergies Allergy (Verified 01/23/18 17:43) Home Medications: Ambulatory Orders Medication Instructions Recorded insulin aspart U-100 100 unit/mL See Label Instructions SC QDAY 08/10/17 subcutaneous pen Insulin Glargine,Hum.rec.anlog 30 unit SQ QHS 10/26/17 Surgical History: Surgical History (Last Reviewed 01/18/18 @ 16:18 by Amanda Wilkinson) S/p bilateral myringotomy with tube placement Z96.22 Surgical History: - - BL ear tubes. Psychiatric History: Anxiety, Depression, Prior suicide attempt Lives: With Family Smoking Status: Never smoker Alcohol: None Drugs: None - *Family History Maternal Family History: Family History (Last Reviewed 01/18/18 @ 16:18 by Amanda Wilkinson) Mother Kidney disease History Items: Heart Disease, Renal Disease Paternal Family History: Family History (Last Reviewed 01/18/18 @ 16:18 by Amanda Wilkinson) Mother Kidney disease History Items: Heart Disease, - - Paternal family males w/ frequent hearing disorder. Review of Systems Constitutional: Reports: Anorexia, Weakness, Fatigue. Denies: Chills, Fever Eyes: Denies: Blurred vision, Double vision, Eyelid Inflammation, Redness HEENT: Denies: Difficulty Hearing, Ear Pain, Eye Pain, Nasal Congestion, Sore Throat Cardiovascular: Denies: Chest Pain, Chest Pressure, Edema, Heaviness, Palpitations, Syncope Respiratory: Denies: Cough, Pleuritic Pain, Shortness of Breath, Sputum production, Wheezing Gastrointestinal: Reports: Abdominal Pain. Denies: Constipation, Diarrhea, Hematochezia, Nausea, Vomiting Genitourinary: Denies: Dysuria, Frequency, Hematuria Musculoskeletal: Denies: Arm Pain, Back Pain, Foot Pain Skin: Reports: Dryness. Denies: Rash Neurological: Denies: Balance problems, Double vision, Change in Speech, Slurred speech, Confusion, Headaches, Incoordination, Numbness Psychiatric: Denies: Anxiety, Depression Endocrine: Denies: Change in Body Habitus, Polydipsia VTE Information - Inpt Only VTE Present on Admission: No VTE Mechan Device Prophylaxis: None VTE Pharm Prophylaxis ordered?: Yes - Physical Exam General: Alert, Oriented x3, Cooperative, No apparent distress HEENT: Atraumatic, PERRLA, EOMI Oral: No Gingival or Mucosal Lesions/ Ulcerations, Dry Mucosa Neck: Supple, No JVD, Negative Carotid Bruits, Trachea Midline, Thyroid Normal Size and Texture Lungs: Clear to auscultation, No rhonchi, No wheeze, No rales, Diminished Cardiovascular: Regular rate, Regular Rhythm, Normal S1, Normal S2, No murmurs Abdomen: Bowel Sounds Present, Soft, Non-Distended, No Hepato- splenomegaly, Tender Extremities: No clubbing, No cyanosis, No edema Skin: No rashes, No breakdown Lymphatic: No Cervical, Supraclavicular, or Inguinal Adenopathy Neurological: Cranial nerves II-XII grossly intact, Motor Exam 5/5 strength throughout Psych/Mental Status: Normal Affect, Appropriate, Alert and oriented to time, place, person, mood and affect Vital Signs Temp Pulse Resp BP Pulse Ox 98.2 F 92 18 103/67 100 01/23/18 17:44 01/23/18 21:07 01/23/18 21:07 01/23/18 21:07 01/23/18 21:07 Oxygen Delivery Method Room Air Weight: 138 lb 0.15 oz Body Mass Index (BMI) 22.2 Finger Stick Blood Glucose 473 Laboratory Tests Past 24 Hrs WBC 6.9 RBC 5.00 Hgb 15.6 Hct 47.7 MCV 95.4 H MCH 31.2 MCHC 32.7 RDW 13.8 WBC RBC Hgb Hct MCV MCH MCHC RDW RDW Differential POC Glucose POC Glucose > 500 H* > 500 H* > 500 H* Assessment/Plan All Active Problems (Last Reviewed 01/18/18 @ 16:18 by Amanda Wilkinson) DKA (diabetic ketoacidoses) (Acute) This is a 17 years old male patient presented to the emergency department because of dehydration and thirst as well as abdominal pain and he was found to have diabetic ketoacidosis. #1 acute DKA: With recurrent history of admissions for DKA. Patient claims that he takes his insulin as prescribed. Most recent hemoglobin A1c was 12.3 on October,. His ABG revealed pH of 7.20, PCO2 of 21 and PO2 of 110. Serum bicarb is 30, anion gap is 25. Blood sugar is 717. Plan: Admit to ICU, critical care monitoring, initiate DKA protocol, IV fluids with potassium replacement, IV insulin drip, electrolyte replacement per protocol, DVT 4 hours, repeat CBC and BMP tomorrow morning, critical care consult, nutrition consult, IV antiemetics. #2 elevated LFT: His liver transaminases and alkaline phosphatase has been chronically elevated, fluctuating. Patient complains of chronic right- sided abdominal pain. On exam, no guarding or rigidity. Plan for IV fluids, IV morphine as needed for pain, repeat LFTs tomorrow morning. #3 hyponatremia/dehydration: Secondary to DKA. Corrected sodium is normal for hyperglycemia. Plan for IV fluids as above, input output chart, repeat BMP tomorrow morning. #4 type 1 diabetes mellitus: Initiate DKA protocol, hold glargine and U 100 insulin. #5 DVT prophylaxis: Subcu Lovenox. This note was generated with Poxel dictation software. It may contain incorrect words, spelling, and punctuation that were not noted in checking the note before signing. Code Visit Inpatient E AND M: [id number] Init Hosp L3 01/23/18 2151 <Electronically signed by Diego Abdullahi MD> Date Diego Abdullahi MD Cosigner Signature: Date (if applicable) CC: Scott Braden MD; Diego Abdullahi Signed BEDSIDE GLUCOSE Collected: 01/23/2018 Status: F Source: RIP 9:10 PM [facility] [place] REPOSITORY TYPE CODE TESTS RESULT OUT OF REFERENCE UNITS RANGE LAB L501.080 70-110 mg/dL High alert BEDSIDE GLU 473 Result Comment: Insulin Given MANAGEMENT OF PATIENT CARE PER NURSING PROTOCOL Performed By: #### L501.080 #### [facility] Point of Care [facility] [place] [address] BEDSIDE GLUCOSE Collected: 01/23/2018 Status: F Source: RIP 8:22 PM [facility] [place] REPOSITORY TYPE CODE TESTS RESULT OUT OF REFERENCE UNITS RANGE LAB L501.080 70-110 mg/dL High alert BEDSIDE GLU > 500 Result Comment: Insulin Given MANAGEMENT OF PATIENT CARE PER NURSING PROTOCOL Performed By: #### L501.080 #### [facility] Point of Care [address] [place] [address] BLOOD GASES BY CPS Collected: 01/23/2018 Status: F Source: RIP 7:49 PM [facility] [place] REPOSITORY TYPE CODE TESTS RESULT OUT OF RANGE REFERENCE UNITS LAB L9000.9990 Normal BLD GAS TYPE ART LAB L9001.1000 Normal SITE L Radial LAB L9001.1010 Normal IFEOMA TEST POS LAB L9001.1050 O2 Normal Delivery Dev Room Air LAB L9001.1104 Normal Results To ED MD LAB L9001.1110 7.35-7.45 Low pH - I-STAT 7.20 LAB L9001.1210 35-45 mmHg Low pCO2 - ISTAT 21.1 LAB L9001.1310 75-100 mmHG High PO2 I-STAT 110 LAB L9001.2300 22-26 mmol/L Low HCO3 ISTAT 8.3 LAB L9001.2400 -2 to +2 mmol/L Low BE ISTAT -20 LAB L9001.2415 mmol/L Normal TOTAL CO2 9 ISTAT LAB L9001.2425 95-99 % Normal SO2 ISTAT 97 Performed By: #### L9000.0800 #### [facility] Point of Care [address] [place] [address] BEDSIDE GLUCOSE Collected: 01/23/2018 Status: F Source: RIP 7:30 PM [facility] [place] REPOSITORY TYPE CODE TESTS RESULT OUT OF REFERENCE UNITS RANGE LAB L501.080 70-110 mg/dL High alert BEDSIDE GLU > 500 Result Comment: Insulin Given MANAGEMENT OF PATIENT CARE PER NURSING PROTOCOL Performed By: #### L501.080 #### [facility] Point of Care [address] [place] [address] URINALYSIS, COMPLETE Collected: 01/23/2018 Status: F Source: RIP 6:15 PM [facility] [place] REPOSITORY Order Comment: How was Urine Obtained? CLEAN CATCH TYPE CODE TESTS RESULT OUT OF RANGE REFERENCE UNITS LAB L400.3000 Yellow COLOR Normal Yellow LAB L400.3050 Clear Normal CLARITY Clear LAB L400.3200 Normal mg/dl High GLUCOSE, UR 1000 LAB L400.3300 Negative mg/dL Normal BILIRUBIN URINE Negative LAB L400.3400 Negative mg/dl High KETONE UR 150 Result Comment: RESULTS CALLED TO ARDEN AVENDANO 01/23/181939 Charles Webb. REPORT READ BACK BY SAME . CRITICAL VALUE *H LAB L400.3465 1.002-1.030 Normal SP.GR. DIPSTX 1.010 LAB L400.3550 5.0 - 8.0 pH Normal UR 5.0 LAB L400.3600 Negative mg/dl Normal PROT DIPSTX Negative LAB L400.3700 Normal mg/dl Normal UROBILI Normal LAB L400.3750 Negative Normal NITRITE UR Negative LAB L400.3780 Negative /ul Normal OCCULT Negative BLOOD-UR LAB L400.3800 Negative /ul Normal LEUK ESTERASE Negative LAB L400.4050 0-5 /hpf 0 Normal WBC SEEN LAB L400.4100 0-5 /hpf 0 Normal RBC-UA SEEN LAB L400.4150 0-5 /hpf 0 Normal SQUAM EPI SEEN LAB L400.4300 None Seen /hpf 0 Normal BACTERIA SEEN LAB L400.4350 <or=2+ /hpf 0 Normal MUCUS, URINE SEEN Performed By: #### L100.0100, L400.0001 #### [facility] [address] [place], [place], [address] CBC W/DIFF, AUTOMATED Collected: 01/23/2018 Status: F Source: [place] 6:05 PM [facility] REPOSITORY TYPE CODE TESTS RESULT OUT OF RANGE REFERENCE UNITS LAB L100.1000 4.4-11.0 K/mm3 Normal WBC 6.9 LAB L100.1200 4.6-6.2 M/mm3 Normal RBC 5.00 LAB L100.1300 13.0-16.5 g/dl Normal HGB 15.6 LAB L100.1400 40-54 % Normal HCT 47.7 LAB L100.1500 80-94 fL High MCV 95.4 LAB L100.1600 27.0-32.0 pg Normal MCH 31.2 LAB L100.1700 32-36 g/gl Normal MCHC 32.7 LAB L100.1810 11.6-14.6 % Normal RDW CV 13.8 LAB L100.1820 35.1-43.9 fl High RDW SD 47.6 LAB L100.1900 150-450 K/mm3 Normal PLT 269 LAB L100.2000 6.2-12.0 fl Normal MPV 9.7 LAB L100.2100 47-70 % Normal NEUT% 57.0 LAB L100.2200 19-41 % Normal LY% 32.9 LAB L100.2300 0-10 % Normal MONO% 5.2 LAB L100.2400 0-5 % Normal EO% 2.5 LAB L100.2500 0-1 % Normal BASO% 0.9 LAB L100.2550 0.0-0.9 % High IM GRAN % 1.500 Result Comment: IG% - Immature Granulocytes (promyelocytes, myelocytes and metamyelocytes) > 1% indicates that a LEFT SHIFT is Present. LAB L100.2620 2.0-7.7 X10 3/uL Normal Absolute Neut 3.9 LAB L100.2720 0.83-4.51 X10 3/ul Normal Absolute Lymph 2.26 Performed By: #### L100.0100, L400.0001 #### [facility] [address] [place], [address] BASIC METABOLIC Collected: 01/23/2018 Status: F Source: [place] PROFILE ([facility]) 6:05 PM [facility] REPOSITORY TYPE CODE TESTS RESULT OUT OF RANGE REFERENCE UNITS LAB L501.0100 74-106 mg/dL High alert GLU 717 Result Comment: CALLED [facility] ED WITH CRITICAL GLUC BY MAF 01-23-18 AT 1850PM READ BACK BY SAME Glucose result greater than or equal to 200 mg/dL suggests DIABETES MELLITUS per A.D.A. criteria. Please note revised GLUCOSE reference range effective 2017. LAB L501.1000 7-18 mg/dL High BUN 22 LAB L501.1100 0.70-1.30 mg/dL Normal CREAT,SERUM 1.03 Result Comment: The validity of the calculated GFR AND GFRAA in patients over 70 years has not been determined. Clinical correlation is essential. LAB L501.1110 >60 mL/min Normal EST GFR 99 Result Comment: Non- GFR Calc LAB L501.1115 >60 mL/min Normal EST GFR - AA 120 Result Comment: GFR Calc LAB L501.1255 ml/min Normal Estimated CRCL 102.14 LAB L501.1300 10-20 RATIO High BUN/CRE 21.4 LAB L501.2200 8.5-10 mg/dL .1 CA Normal 9.1 LAB L501.5300 136-14 mmol/L Low 5 NA 132 LAB L501.5600 3.5-5. mmol/L 1 K Normal 4.5 LAB L501.5900 98-107 mmol/L Low CL 94 LAB L501.6100 21.0-3 mmol/L Low 2.0 CO2 13.0 LAB L501.6200 5-15 High GAP 25 Performed By: #### L500.2500 #### [facility] [address] [place], [place], [id number] LIVER PROFILE Collected: 01/23/2018 Status: F Source: [place] 6:05 PM [facility] REPOSITORY TYPE CODE TESTS RESULT OUT OF RANGE REFERENCE UNITS LAB L501.1500 6.4-8.2 g/dL Normal T PROT 7.0 LAB L501.1800 3.2-5.0 g/dL Normal ALB 3.7 LAB L501.1950 2.2-4.2 g/dL Normal GLOB 3.3 LAB L501.4100 15-37 U/L High AST 101 LAB L501.4305 45-117 U/L High ALK P 200 LAB L501.4405 16-61 U/L High ALT 169 LAB L501.4600 0.20-1.00 mg/dL High T BILI 1.10 LAB L501.4700 0.00-0.30 mg/dL Normal D BILI 0.25 Performed By: #### L500.3400, L501.2450 #### [facility] [address] [place], [place], [id number] LIPASE Collected: 01/23/2018 Status: F Source: [place] 6:05 PM [facility] REPOSITORY TYPE CODE TESTS RESULT OUT OF REFERENCE UNITS RANGE LAB L501.2450 73-393 U/L Low LIPASE 53 Performed By: #### L500.3400, L501.2450 #### [facility] [address] [place], [address] ACETONE SERUM Collected: 01/23/2018 Status: F Source: [place] 6:05 PM [facility] REPOSITORY TYPE CODE TESTS RESULT OUT OF REFERENCE UNITS RANGE LAB L501.6900 NEG High ACETONE SERUM LARGE Performed By: #### L501.6900 #### [facility] [address] [place], [address] BEDSIDE GLUCOSE Collected: 01/23/2018 Status: F Source: [place] 5:49 PM [facility] REPOSITORY TYPE CODE TESTS RESULT OUT OF REFERENCE UNITS RANGE LAB L501.080 70-110 mg/dL High alert BEDSIDE GLU > 500 Result Comment: Dr Delvalle Followed MANAGEMENT OF PATIENT CARE PER NURSING PROTOCOL Performed By: #### L501.080 #### [facility] Point of Care [address] [place] [address] ENDOCRINOLOGY VISIT Observed: 01/19/2018 Status: F Source: [place] REPORT 7:36 AM [facility] REPOSITORY [facility] [address] [place], [place] [address] OFFICE VISIT Date of Service: 12/21/17 MR#: [id number] Acct: [id number] Name: VAHID WANG Rep #: [id number] : 2000 Provider: Ilda Chavez NP Age/Sex: 17/M Location[place] [facility] Status: Signed HPI History of present illness Vahid Wang is an 17year old male who presents for follow up of diabetes type 1. accompanied by his grandmother. Diagnosed at age 2 with diabetes. . Had moved in with a friend for awhile and had several visits to ER and had DKA at least twice. Is now back into his grandmother's home. Taking lantus 30 units daily and using meal insulin I/C ratio of 7. Taking approx 8-11 units at each meal. ISF=40. Pt denies difficulty with injections or self monitoring of BG. Denies any signs of infection or irritation at site of injections. Reports taking insulin as directed with occ missed doses. At time of visit: -Pt denies symptoms of hypertensive emergency (CP,SOB,HAWKINS, or blurred vision) and hypotension(dizziness or lightheadedness) -Pt denies symptoms of hypoglycemia ( sweaty, confusion, anxiety, tremor, hunger, palpitations) and hyperglycemia ( polydipsia, polyuria) -Pt denies potential medication adverse effect. Hypoglycemia Aware of hypoglycemia: yes Able to self treat low BG: Yes Frequent low Blood sugar: No Has supply of glucagon: Yes Since our last visit he denies excessive thirst, increased frequency of urination, chest pain or dyspnea. Follows a regular diet, Is tolerating without side effects. SMBG 3-6 BG checks daily 100-400 BG readings. BG highest at bedtime Type: type 1 Glucose control symptoms: Reports high post-meal glucose and high fasting glucose Weight and fatigue symptoms: Denies snoring Cardiopulmonary symptoms: Denies chest pain at rest, dyspnea on exertion, lightheadedness or myalgias GI symptoms: Denies constipation, diarrhea, nausea/dyspepsia or vomiting Skin and extremity symptoms: Denies erectile dysfunction Other symptoms: Denies blurry vision or change in vision Pertinent visit history: Reports recent visit to ER Self monitoring: Yes Diabetes education in past year: Yes Glucose testing: demonstrates correct use of meter, understands testing schedule Sick day education - understands ketone testing: Yes Physical activity: regular Exam Const General: comfortable, no acute distress Nutritional Appearance: well nourished Orientation: oriented x3 HENMT Head: normal to inspection, atraumatic Ears: hearing grossly impaired Mouth: oral mucosae normal, moist mucous membranes Teeth and gingiva: dentition normal Eyes General: appearance normal, both eyes and all related structures Eyelids: eyelids normal Conjunctivae: conjunctivae normal Sclera: sclerae normal Pupils: PERRL Resp Effort AND Inspection: normal respiratory effort, able to speak in complete sentences, symmetric chest movement Auscultation: Bilateral: Clear to Auscultation Cardio Rate: regular rate Rhythm: regular rhythm Heart Sounds: S1 normal, S2 normal, no gallops, no murmurs, no rubs GI Inspection: normal to inspection Auscultation: normal bowel sounds Palpation: soft, no guarding Skin General: no rashes or lesions noted Wounds: no wounds Diabetic Foot Pulses: L dorsalis pedis pulse: normal, R dorsalis pedis pulse: normal Monofilament test: Left foot: normal, Right foot: normal Neuro General: gait normal, moves all extremities Cranial Nerves: CN's II-XI intact bilaterally Extrem General: normal to inspection Psych Appearance: well kempt Mental Status: mental status grossly normal Mood: congruent mood Affect: normal affect Speech and Movement: speech and movement normal Attitude: cooperative Thought Process: normal Thought Content: normal Judgment: fair Weight and fatigue symptoms: Denies snoring Cardiopulmonary symptoms: Denies chest pain at rest, dyspnea on exertion, lightheadedness or myalgias GI symptoms: Denies constipation, diarrhea, nausea/dyspepsia or vomiting Skin and extremity symptoms: Denies erectile dysfunction Other symptoms: Denies blurry vision or change in vision Weight and fatigue symptoms: Denies snoring Cardiopulmonary symptoms: Denies chest pain at rest, dyspnea on exertion, lightheadedness or myalgias GI symptoms: Denies constipation, diarrhea, nausea/dyspepsia or vomiting Skin and extremity symptoms: Denies erectile dysfunction Other symptoms: Denies blurry vision or change in vision Intake Intake Visit Reasons: Diabetes Mellitus Type 1 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 by: Self Is patient in pain?: No Allergies No Known Allergies Allergy (Verified 01/18/18 16:18) Medications insulin aspart U-100 100 unit/mL subcutaneous pen See Label Instructions SC QDAY 08/10/17 [History Confirmed 01/18/18] Insulin Glargine,Hum.rec.anlog [Basaglar Kwikpen U-100] 30 unit SQ QHS 10/26/17 [History Confirmed 01/18/18] Ondansetron [Zofran Odt] 4 mg PO Q4H PRN PRN #7 tab.rapdis 01/03/18 [Rx Confirmed 01/18/18] Nurse's Note: blood sugars : low : 140 high : 600+ PFSH Medical History Anxiety disorder (Acute) Back problem (Acute) Bone fracture (Acute) Diabetes type 1, uncontrolled (Acute) Hearing problem (Acute) Liver disease (Acute) Seizure (Acute) Vision problem (Acute) Surgical History S/p bilateral myringotomy with tube placement (Acute) Family History Mother Kidney disease Social History Smoking Status: Never smoker second hand exposure: No alcohol intake: never substance use type: does not use ROS Const Constitutional: Positive for change in appetite; no anorexia, body ache, chills, fatigue, fever(s), frequent falls, decreased energy, malaise, night sweats, weakness, weight change, sleep problems, abnormal sleep pattern, other, headache(s), snoring or excessive sweating Eyes Eyes: No blurry vision, change in vision, double vision, discharge, dry eyes, bulging eyes, floaters, visual disturbances, eye pain, light sensitivity, spots in vision, tunnel vision or other ENT ENT: No abnormal hearing, ear pain, ear discharge, ear pressure, hearing loss, tinnitus, dizziness/vertigo, balance problems, nosebleed/epistaxis, nasal congestion, nasal obstruction, nose pain, sinus pressure, sinus pain, nasal discharge, post nasal drip, headache(s), facial pain, dental pain, dry mouth, bad breath, hoarseness, lip swelling, mouth lesions, mouth pain, sore throat, tongue swelling, throat swelling, other, difficulty swallowing or neck pain Resp Respiratory: Positive for cough; no change in phlegm color, chest congestion, excessive phlegm production, hemoptysis, pain on inspiration, shortness of breath, pain with cough, snoring, stridor, wheezing or other Cardio Cardiology: No chest pain at rest, chest pain with exertion, leg pain with exertion, excessive sweating, shortness of breath, dyspnea on exertion, generalized swelling, irregular heart rhythm, lightheadedness, orthopnea, radiating jaw, neck or arm pain, fast heart rate, slow heart rate, palpitations or other Gastro GI: No abdominal pain, belching, bloating, change in bowel habits, change in stool character, coffee ground emesis, constipation, cramping, diarrhea, heartburn, difficulty swallowing, feeling full early, excessive flatus, incontinent of stools, Vomiting blood/hematemesis, blood in stool, loose stools, Black,tarry stools, nausea/dyspepsia, pain with swallowing, vomiting or other Genitourinary Male: No difficulty urinating, burning urination, painful urination, urinary incontinence, urinary frequency, urinary urgency, urinary hesitancy, urinary retention, blood in urine, Frequent nighttime urination/ nocturia, post void dribbling, suprapubic fullness, side pain, sexual problems, genital lesions, genital itching, erectile dysfunction, penile discharge, difficulty with ejaculations, blood in semen, scrotal swelling, testicle lump, testicle pain or other Musc Musculoskeletal: No abnormal walking, joint pain, back pain, deformity, joint swelling, limited range of motion, loss of height, muscle cramps, muscle weakness, decreased muscle mass, body aches, neck pain, numbness, radiating pain into limb, stiffness, tingling or other Skin Skin: No acne, hair loss, change in hair, nail changes, boil, change in skin color, dry skin, redness, excessive hair growth, yellowing of the skin, lesions, itching, rash, skin pain, skin ulcer, sores, skin swelling, wounds or other Breast Breast: No other Neuro Neurology: No frequent falls, weakness, visual disturbances, abnormal hearing, headache(s), abnormal walking, numbness or tingling Psych Psychiatric: No abnormal sleep pattern, Positive for change in appetite Endo Endocrine: No fatigue, other or excessive sweating Aller/Imm Allergy/Immunologic: No lip swelling, tongue swelling, throat swelling, wheezing or itchy eyes Assessment AND Plan Problems 1. Uncontrolled type 1 diabetes mellitus with complication E10.8 Plan Basaglar 18-20 units twice daily Check before each meal and 2 hours after meals Use correction a needed. Medications Discontinued: Plan Detail Additional Comments 1. Please schedule follow up in 1 months. 2. Lab work one week before appointment. 3. Discussed importance of regular exercise and recommend starting or continuing a regular exercise program for good health. 4. The patient was encouraged to lose weight for good health 5. The importance of monitoring blood sugar regularly was reviewed. 6. The importance of monitoring the HBA1c level regularly was reviewed. 7. The importance of prper foot care and regularly checking feet to prevent sores and loss of limbs was reviewed. 8. The importance of keeping BP at or below 130/80 to prevent stroke, heart attacks, kidney failure, blindness was reviewed. Spent approximately 45 minutes with patient with over 50% of time spent in discussion and counseling regarding medication adjustment, symptoms and treatment of hypoglycemia, diet adherence, and checking BG before leaving home Denies suicide ideation or of harming others. Coding Level of Care Code Off vis,est,level 4 Diagnoses Uncontrolled type 1 diabetes mellitus with complication E10.8 Diabetes mellitus complication status: with unspecified complications 01/19/18 0736 <Electronically signed by Ilda COTTO> Date Ilda COTTO Cosigner Signature: Date (if applicable) CC: PROCEDURE Observed: 01/18/2018 Status: COMPLETED Source: [place] 9:54 AM [facility] REPOSITORY HNO ID: [id number] Author: Gregg Graham Service: (none) Author Type: Physician Type: Procedures Filed: 01/18/2018 9:56 AM Note Text: Fibroscan was performed on January 16, 2018 by Gregg Graham MD Diagnosis: Hepatic steatosis Number of readings: 10 IQR:11% E (kpa): 4.5 CAP (dB/m): 313 M probe/ XL probe: M probe Impression. The reading was adequate, and corresponds to Fibrosis stage F0. Gregg Graham MD Pediatric Gastroenterology Staff January 18, 2018 9:55 AM Pager Number [phone] CNOV Observed: 01/16/2018 Status: COMPLETED Source: [place] 3:20 PM [facility] REPOSITORY Office Visit (PGASMN) VAHID WANG ([id number]) 2000 M Date Time Provider Department 01/16/18 3:20 PM GREGG VALENZUELA During your visit today, we recorded the following information about you: Gregg Graham MD 01/18/2018 9:56 AM Signed Fibroscan was performed on January 16, 2018 by Gregg Graham MD Diagnosis: Hepatic steatosis Number of readings: 10 IQR:11% E (kpa): 4.5 CAP (dB/m): 313 M probe/ XL probe: M probe Impression. The reading was adequate, and corresponds to Fibrosis stage F0. Gregg Graham MD Pediatric Gastroenterology Staff January 18, 2018 9:55 AM Pager Number [phone] Referring Provider: SCOTT BRADEN [[id number]] Allergies As of Date: 01/16/2018 (No Known Allergies) Date Reviewed: 01/16/2018 Reviewed by: Leslie (Nick) [place] LPN - Fully Assessed Primary Visit Diagnosis:Hepatomegaly, not elsewhere classified [R16.0] Other Visit Diagnosis:Hepatic steatosis [K76.0] Prescriptions as of 01/16/2018 Sig: OMEPRAZOLE 40 MG CAPSULE,MANAN* Take 1 capsule by mouth once * GLUCAGON (HUMAN RECOMBINANT) * use as directed, call if used INSULIN ASPART U-100 100 UNI* TAKE 1 UNIT FOR 7 GRAMS CARB * BLOOD SUGAR DIAGNOSTIC STRIPS USE TO TEST UP TO 12 TIMES A * PEN NEEDLE, DIABETIC 31 GAUGE* use as directed 10 times daily INSULIN GLARGINE (U-100) 100 * Inject 21 Units subcutaneousl* Patient taking differently: Inject 30 Units subcutaneousl* INSULIN SYRINGE-NEEDLE U-100 * use as directed LANCETS Use as instructed Problem List As Of Date 01/16/2018 Noted Resolved Type 1 diabetes mellitus (HCC) [E10.9] INVALID FOR* Closed Buckle Fracture of Radius [HCD9378] INVALID FOR* ADD (Attention Deficit Disorder) [F98.8] INVALID FOR* Fatty liver disease, nonalcoholic [K76.0] INVALID FOR* Accidental striking against or bumped into by a*INVALID FOR* Activity, running [Y93.02] INVALID FOR* Activity, soccer [Y93.66] INVALID FOR* Anxiety disorder [F41.9] INVALID FOR* Contusion of right foot [S90.31XA] INVALID FOR* Cramp and spasm [R25.2] INVALID FOR* Diabetes mellitus without complication (HCC) [E*INVALID FOR* Type 1 diabetes mellitus with hyperglycemia (HC*INVALID FOR* Hyperglycemia [R73.9] INVALID FOR* Hepatomegaly, not elsewhere classified [R16.0] INVALID FOR* Hyperglycemia, unspecified [R73.9] INVALID FOR* Hyperkalemia [E87.5] INVALID FOR* Hypo-osmolality and hyponatremia [E87.1] INVALID FOR* Chronic sinusitis [J32.9] INVALID FOR* long-term (current) use of insulin (HCC) [Z79.4]INVALID FOR* Nausea [R11.0] INVALID FOR* Nausea with vomiting, unspecified [R11.2] INVALID FOR* Other and unspecified overexertion or strenuous*INVALID FOR* Other external cause status [Y99.8] INVALID FOR* Other fatigue [R53.83] INVALID FOR* Other malaise [R53.81] INVALID FOR* Other specified abnormal findings of blood chem*INVALID FOR* Hepatic steatosis [K76.0] INVALID FOR* Encounter for general adult medical examination*INVALID FOR* Suicidal ideations [R45.851] INVALID FOR* Abnormal electrocardiogram [R94.31] INVALID FOR* Right upper quadrant pain [R10.11] INVALID FOR* Soccer field as place of occurrence of external*INVALID FOR* Strain of unspecified muscle(s) and tendon(s) a*INVALID FOR* Suicidal ideation [R45.851] INVALID FOR* Unspecified external cause status [Y99.9] INVALID FOR* Unspecified place or not applicable [Y92.9] INVALID FOR* Unspecified sprain of right foot, initial encou*INVALID FOR* Ketonuria [R82.4] INVALID FOR* Epigastric pain [R10.13] INVALID FOR* Heartburn [R12] INVALID FOR* Gastroesophageal reflux disease [K21.9] INVALID FOR* Encounter Status:Closed by GREGG VALENZUELA MD on 01/18/18 GGT Collected: 01/16/2018 Status: F Source: [place] 2:48 [facility] REPOS[facility] TYPE CODE TESTS RESULT OUT OF RANGE REFERENCE UNITS LAB GGT 10-70 U/L High GGT 142 Performed By: #### GGT, CBIL, CMP, LIPA, CBCDIF, HBA1C, GLIAD, TGIGA, ENDOMY #### [facility] [address] [place], [place] [address] BILIRUBIN,CONJUGATED Collected: Status: F Source: [place] 01/16/2018 2:48 PM [facility] REPOSITORY TYPE CODE TESTS RESULT OUT OF RANGE REFERENCE UNITS LAB CBIL <0.2 mg/dL <0.2 Bilirubin,Co njugated Performed By: #### GGT, CBIL, CMP, LIPA, CBCDIF, HBA1C, GLIAD, TGIGA, ENDOMY #### [facility] [address] [place], [place] [address] COMP METABOLIC PANEL Collected: 01/16/2018 Status: F Source: [place] 2:48 PM [facility] REPOSITORY TYPE CODE TESTS RESULT OUT OF REFERENCE UNITS RANGE LAB TP 6.3-8.0 g/dL Protein, Total 6.4 LAB ALB 3.9-4.9 g/dL Albumin 3.9 LAB CA 8.5-10.2 mg/dL Calcium, Total 9.4 LAB TBIL 0.2-1.3 mg/dL Bilirubin, Total 0.5 LAB ALKP 36-108 U/L Alkaline High Phosphatase 166 LAB AST 14-40 U/L AST High 190 LAB GLU 74-99 mg/dL Glucose High 665 Result Comment: The [place] [employer] (ADA) provides guidance for cutoff values for fasting glucose and random glucose. The ADA defines fasting as no caloric intake for at least 8 hours. Fas ting plasma glucose results between 100 to 125 mg/dL indicate increased risk for diabetes (prediabetes). Fasting plasma glucose results greater than or equal to 126 mg/dL meet the criteria for diagnosis of diabetes. In the absence of unequivocal hyperglycemia, results should be confirmed by repeat testing. In a patient with classic symptoms of hyperglycemia or hyperglycemic crisis, random plasma glucose results greater than or equal to 200 mg/dL meet the criteria for diagnosis of diabetes. Reference: Standards of Medical Care in Diabetes 2016, [place] [employer]. Diabetes Care. 2016.39(Suppl 1). Called to and read back by: Dr. Ketan Dinh [id number] 01/16/2018 1922 [place]isa Ang LAB BUN 9-24 mg/dL BUN 22 LAB CRET 0.73-1.22 mg/dL Low Creatinine 0.68 LAB NA 136-144 mmol/L Low Sodium 130 LAB K 3.7-5.1 mmol/L Potassium High 5.6 LAB CL 97-105 mmol/L Low Chloride 89 LAB CO2 22-30 mmol/L Low CO2 17 LAB AGAP 9-18 mmol/L Anion Gap High 24 LAB ALT 10-54 U/L ALT High 226 LAB GFRAA eGFR- Amer. >60 LAB GFRNAA . eGFR-All Other Races >60 Result Comment: eGFR (Estimated GFR) Units of measure: mL/min/1.73 meters squared eGFR is derived from the reexpressed MDRD Study equation using the following parameters: serum creatinine, age, gender and race. The creatinine assay has been calibrated to be traceable to IDMS. An eGFR <60 mL/min/1.73m2 for >3 months is consistent with chronic kidney disease. Refer to KDOQI guidelines for clinical interpretation. In patients with unstable renal function, e.g. those with acute kidney injury, the eGFR may not accurately reflect actual GFR. Performed By: #### GGT, CBIL, CMP, LIPA, CBCDIF, HBA1C, GLIAD, TGIGA, ENDOMY #### [facility] [employer] [address] [place] [address] LIPASE Collected: 01/16/2018 Status: F Source: [place] 2:48 PM [facility] REPOSITORY TYPE CODE TESTS RESULT OUT OF REFERENCE UNITS RANGE LAB LIPA 16-61 U/L Low Lipase 13 Performed By: #### GGT, CBIL, CMP, LIPA, CBCDIF, HBA1C, GLIAD, TGIGA, ENDOMY #### [facility] [address] [place], [place] [address] CBC AND DIFFERENTIAL Collected: 01/16/2018 Status: F Source: [place] 2:48 PM [facility] REPOSITORY TYPE CODE TESTS RESULT OUT OF REFERENCE UNITS RANGE LAB WBC 3.70-11.00 k/uL WBC 6.47 LAB RBC 4.20-6.00 m/uL RBC 4.96 LAB HGB 13.0-17.0 g/dL Hemoglobin 15.4 LAB HCT 39.0-51.0 % Hematocrit 46.5 LAB MCV 80.0-100.0 fL MCV 93.8 LAB MCH 26.0-34.0 pG MCH 31.0 LAB MCHC 30.5-36.0 g/dL MCHC 33.1 LAB RDWCV 11.5-15.0 % RDW-CV 13.6 LAB PLTCT 150-400 k/uL Platelet Count 329 LAB MPV 9.0-12.7 fL MPV 9.8 LAB ANEUT % Neut% 59.0 LAB AANEUT 1.45-7.50 k/uL Abs Neut 3.82 LAB ALYMP % Lymph% 30.0 LAB AALYMP 1.00-4.00 k/uL Abs Lymph 1.94 LAB AMONO % Patrick% 5.0 LAB AAMONO <0.87 k/uL Abs Patrick 0.32 LAB AEOS % Eosin% 5.0 LAB AAEOS <0.46 k/uL Abs Eosin 0.32 LAB ABASO % Baso% 0.0 LAB AABASO <0.11 k/uL Abs Baso 0.00 LAB ABIMMG k/uL ANC(includeSEG+B 3.82 AND) LAB AMETA % Milton% 1.0 LAB RBCMOR Red Cell Morph SEE COMMENT Result Comment: Unremarkable LAB PLTEST Platelet Platelet Estimate estimate adequate LAB DTYP DTYPE Manual Diff Performed By: #### GGT, CBIL, CMP, LIPA, CBCDIF, HBA1C, GLIAD, TGIGA, ENDOMY #### [facility] [employer] [address], [place] [address] HEMOGLOBIN A1C Collected: 01/16/2018 Status: F Source: ARTHUR 2:48 PM [facility] REPOSITORY TYPE CODE TESTS RESULT OUT OF REFERENCE UNITS RANGE LAB HGBA1C 4.3-5.6 % High Hemoglobin A1c 13.5 LAB HBA0 mg/dL Est. Average Glucose 341 Result Comment: eAG: (Estimated average glucose) is a calculated value from HgbA1c and is senior account representative of the average blood glucose level in the last 2-3 month period. Performed By: #### GGT, CBIL, CMP, LIPA, CBCDIF, HBA1C, GLIAD, TGIGA, ENDOMY #### [facility] [employer] [address] [place], [place] [address] GLIADIN(DEAMIN.)ABS Collected: Status: F Source: ARTHUR 01/16/2018 2:48 PM [facility] [place] REPOSITORY TYPE CODE TESTS RESULT OUT OF REFERENCE UNITS RANGE LAB GLIADA <20 Units Gliad IgA 12 Ab Result Comment: Negative : < 20 Units Weak Positive : 20 - 30 Units Moderate Pos to Strong Pos: >30 Units The following results were obtained with the [employer] QUANTA Lite Gliadin IgA RACQUEL. Gliadin IgA values obtained with different manufacturers' assay methods may not be used interchangeably. The magnitude o f the reported IgA levels cannot be correlated to an endpoint titer. LAB GLIADG <20 Units Gliad IgG Ab 3 Result Comment: Negative : < 20 Units Weak Positive : 20 - 30 Units Moderate Pos to Strong Pos: >30 Units The following results were obtained with the [employer] QUANTA Lite Gliadin IgG RACQUEL. Gliadin IgG values obtained with different manufacturers' assay methods may not be used interchangeably. The magnitude o f the reported IgG levels cannot be correlated to an endpoint titer. Performed By: #### GGT, CBIL, CMP, LIPA, CBCDIF, HBA1C, GLIAD, TGIGA, ENDOMY #### [facility] [employer] [address] [place] [address] TRANSGLUTAMINASE IGA Collected: 01/16/2018 Status: F Source: ARTHUR 2:48 PM [facility] REPOSITORY TYPE CODE TESTS RESULT OUT OF REFERENCE UNITS RANGE LAB TGIGA <20 Units Transglutaminase IgA 5 Result Comment: Negative : < 20 Units Weak Positive : 20 - 30 Units Moderate Pos to Strong Pos: >30 Units The following results were obtained with the [employer] QUANT[employer] Lite h-tTG IgA RACQUEL. h-tTG IgA values obtained with different manufacturers' assay methods may not be used interchangeably. The magnitude of th e reported IgA levels cannot be correlated to an endpoint titer. Performed By: #### GGT, CBIL, CMP, LIPA, CBCDIF, HBA1C, GLIAD, TGIGA, ENDOMY #### [facility] [address] [address] ENDOMYSIAL IGA ABS Collected: 01/16/2018 Status: F Source: ARTHUR 2:48 PM [facility] REPOSITORY TYPE CODE TESTS RESULT OUT OF REFERENCE UNITS RANGE LAB ENDOMY <1:10 Endomysial IgA <1:10 Abs Result Comment: Reference Range: Negative < 1:10 Dilution IgA endomysial antibody is a highly sensitive and specific marker for celiac disease in patients with a normal IgA and on a normal diet. Levels reflect the adherence to gluten free diet. Performed By: #### GGT, CBIL, CMP, LIPA, CBCDIF, HBA1C, GLIAD, TGIGA, ENDOMY #### [facility] [address] [place] [id number] PROGRESS Observed: 01/16/2018 Status: COMPLETED Source: ARTHUR 1:45 PM [facility] REPOSITORY HNO ID: [id number] Author: Gregg Graham Service: (none) Author Type: Physician Type: Progress Notes Filed: 01/16/2018 5:35 PM Note Text: Referring MD: This patient was referred by Scott Braden MD for evaluation and management of hepatic steatosis and elevated liver enzymes and our recommendations will be communicated back (either as a letter or via electronic medical record delivery) to Scott Braden MD. Medications: Current Outpatient Prescriptions on File Prior to Visit: glucagon, human recombinant, (GLUCAGON EMERGENCY KIT, HUMAN,) 1 mg injection use as directed, call if used insulin aspart (NOVOLOG FLEXPEN) 100 unit/mL inpn TAKE 1 UNIT FOR 7 GRAMS CARB UP TO 100 UNITS DAILY blood sugar diagnostic (FREESTYLE LITE STRIPS) test strip USE TO TEST UP TO 12 TIMES A DAY DIRECTED Insulin [place], Disposable, (BD ULTRAFINE III MINI PEN) 31 gauge x 3/16 ndle use as directed 10 times daily insulin glargine (LANTUS) 100 unit/mL (3 mL) inpn Inject 21 Units subcutaneously daily at bedtime. (Patient taking differently: Inject 30 Units subcutaneously daily at bedtime. ) Insulin Syringe-Needle U-100 (BD INSULIN SYRINGE HALF UNIT) 0.3 mL 31 x 5/16 syrg use as directed Lancets lancets Use as instructed No current facility-administered medications on file prior to visit. HPI: Vahid Wang is a 17 year old male with past medical history of type 1 diabetes diagnosed at 2 years of age being seen today in new consultation in pediatric GI clinic secondary to issues with hepatomegaly and elevated liver enzymes. History provided by patient and paternal grand mother. He was evaluated previously by Dr. Jimenez for abdominal pain and evidence of steatosis on ultrasound. [facility] was [facility] due to concerns for DKA. He did not have DKA during admission. During hospitalization, he had evaluation for viral hepatitis and autoimmune hepatitis which were within normal limits. 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 Jimenez after discharge from the hospital. He also had celiac panel which was within normal limits. He did not follow-up as recommended. His diabetes is being managed by pediatric oceanographer geological in [place]. Reports that his blood glucose is in the range of 190-200 in the past few days. No jaundice, itching or easy bleeding or bruising reported. No excessive Tylenol intake reported. No behavioral changes or sleep issues reported. Abdominal pain - intermittent, epigastric and RUQ, 8/10 in intensity, aggravated by exercises and sometimes by eating, lasting for 30 minutes to 2 hours, relieved by lying down. He also has nausea associated with abdominal pain but no vomiting reported. No dysphagia or odynophagia reported. He has good appetite. He takes Prilosec 20 mg as needed. He also reports heartburns. Bowel movements are once or twice daily, normal in consistency, with no diarrhea or blood in stools. There are no mouth sores, rashes, joint pains or unexplained fevers noted. He denies excessive caffeine or NSAID intake. Review Of Systems: Constitutional:- No significant change in weight, no fatigue. ENDO:- Type 1 DM CVS:- No history of heart disease, No history of heart murmurs RESP:- no wheezing, frequent cough or shortness of breath GI:- See HPI NEURO:-Normal growth and development. :-negative for dysuria/micturition problems Integumentary:- Negative for lesions, rash, and itching. Musculoskeletal:- Negative for joint pains/edema Psychiatry:- negative for anxiety Hematologic/Lymphatic:-No history of anemia, bruising, bleeding abnormalities. Allergic/Immunologic:-no hay fever or drug allergies Review of systems is otherwise unremarkable and normal. Past Medical History: PEDIATRIC HISTORY Gestational age: wks Delivery method: weight: N/A Discharge weight: N/A Length: N/A HC: N/A Feeding method: Additional comments: Term infant Jaundice at and not underlights passed first stool fine PAST MEDICAL HISTORY Diagnosis Date - Attention deficit disorder with hyperactivity(314.01) - Conduct disorder, childhood onset type - Foot fracture, right growth plate involved - Fracture of clavicle, right, closed 2016 - Generalized convulsive epilepsy without mention of intractable epilepsy - Other abnormal heart sounds normal echocardiogram. Holter monitor that - Right wrist fracture - Sensorineural hearing loss, unspecified - Type I (juvenile type) diabetes mellitus without mention of complication, not stated as uncontrolled 05/19 - Unspecified viral meningitis PAST SURGICAL HISTORY Procedure Laterality Date - MYRINGOTOMY W TUBE,BILATERAL(2) Immunizations: UTD Allergies: ALLERGIES No Known Allergies Development: Appropriate for age Family History: (-) Crohn's disease (-) Ulcerative colitis (-) Celiac disease (-) GERD (-) PUD (-) GI polyps (-) GI cancers (-) IBS (-) Thyroid disease (-) Cystic fibrosis Social History: Lives at home with Grand mother Foreign travel/swimming: None Water sources: [employer] water Antibiotic use: No recent use Physical Exam: Wt 62.1 kg (136 lb 12.8 oz) BMI 21.5 kg/m2 (23 %ile (Z= - 0.72) based on CDC 2-20 Years [id number] data using vitals from 01/16/2018.)(36 %ile (Z= -0.36) based on CDC 2-20 Years BMI-for-age data using vitals from 01/16/2018.) General/Constitutional:- alert and active in no apparent distress Head:- Normocephalic Eye:- conjunctiva clear, no icterus Oropharynx:- moist mucous membranes, tonsils without hypertrophy and no exudates present Neck/Lymphatic:- supple, no adenopathy Cardiac:- Regular Rate and Rhythm without murmurs or clicks Respiratory:- clear to auscultation Gastrointestinal:- Abdomen is soft, non-tender; BS normal, there are no masses or organomegaly and there are no abdominal or flank bruits noted on auscultation. Liver span 13.5 cm Rectal :- deferred exam Neuro:- Muscle tone normal, Normal age appropriate gait and No involuntary motions. Musculoskeletal :- Extremities with FROM and no problems identified., spine without evidence of scoliosis Extremity:- Normal exam of the extremities. No clubbing, cyanosis, or edema. Skin:-normal color, no jaundice or rash Labs/Imaging: Reviewed labs from scanned documents dated October 2017 ALT 97 AST 79 albumin 3.4 Normal bili Component Latest Ref Rng AND Units 11/22/2016 Hep B Core Ab, Total Negative Negative Hep C Antibody IA Negative Negative Hep B Surface Ag Negative Negative Hep B Surface Ab, Qual Negative Negative TAMIKO by EIA, Qual Negative Negative TAMIKO by EIA OD Ratio 0.1 Liver-Kidney Microsomal Abs Negative Negative Smooth Muscle Ab Screen Negative Negative US RUQ 01/09/2018 RESULT: Pancreas: ?Normal sonographic appearance. ?? Portions obscured: ?Tail. ?? Lesions: ?None. Liver: ?Diffusely enlarged with the right hepatic lobe extending inferior to the inferior margin of the right kidney. ?? ? Echotexture: ?Normal, homogeneous. ?? ? Echogenicity: ?Again diffusely increased with loss of peripheral periportal echoes. ?? ? Surface contour: ?Smooth. ?? ? Lesions: ?None. Biliary: ?No intrahepatic biliary duct dilation. ?? ? CBD: ?0.25 cm at the hilum. ?? ? Gallbladder: ?Normal caliber. ?-Contents: ?No cholelithiasis. ?-Wall: ?Normal. ?-Other: ?No pericholecystic fluid. Spleen: ?? ? Craniocaudal length: ?12.6 cm, normal. ?? ? Lesions: ?None. Right Kidney: ?? ? -Renal length: ?12.1 cm. ?? ? -Parenchyma: ?Normal parenchymal echogenicity. Normal parenchymal thickness. ?? ? -Collecting system: ?No hydronephrosis. ?? ? -Calculus: ?No echogenic, shadowing calculus. ?? ? -Lesion: ?None. Left Kidney: ?? ? -Renal length: ?11.1 cm. ?? ? -Parenchyma: ?Normal parenchymal echogenicity. Normal parenchymal thickness. ?? ? -Collecting system: ?No hydronephrosis. ?? ? -Calculus: ?No echogenic, shadowing calculus. ?? ? -Lesion: ?None. IVC: ?Imaged segment is patent. Abdominal Aorta: ?Imaged segment is patent. Ascites: ?None. Impression: Vahid Wang is a 17 year old male with past medical history of type 1 diabetes diagnosed at 2 years of age being seen today in new consultation in pediatric GI clinic secondary to issues with hepatomegaly, elevated liver enzymes and intermittent epigastric abdominal pain associated with nausea and heart medina. He was evaluated in the past by Dr. Jimenez and had negative workup for chronic viral hepatitis and autoimmune hepatitis. He did not follow-up as recommended. Review of labs from outside hospital in October 2017 show elevated ALT and AST. Recent ultrasound in December 2017 show hepatomegaly along with hepatic steatosis. He also has been taking Prilosec as needed for epigastric pain and heart medina. Of note, he also has poorly controlled type 1 diabetes. 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 Ultrasound cannot distinguish between glycogenic hepatopathy and hepatic steatosis. It is also possible that he may have nonalcoholic fatty liver disease in setting of poorly controlled diabetes which has been reported in patients with type 1 diabetes secondary to long-standing hyperglycemia. Fibroscan today did show some evidence of steatosis (CAP score 313) but no fibrosis (4.5 kpa). So recommended to discuss with oceanographer geological for optimal glycemic control which should improve hepatopathy and liver enzymes. With regards to abdominal pain, possible causes are GERD/gastritis, stretching of the liver capsule from hepatomegaly, pancreatitis or celiac disease. So recommended to start him on Prilosec on a scheduled basis for optimal acid control and obtain labs to evaluate for other pathologies. Also recommended lifestyle modifications such as avoiding spicy, greasy or acidic foods and NSAIDs. Meanwhile we'll also repeat liver enzymes and hemoglobin A1c. I stressed the importance of follow-up and recommended to follow up with me in 2 months. If there is no improvement in abdominal pain, will consider EGD with biopsy to evaluate for other pathologies such as peptic ulcer disease or H. pylori. Plan: 1. Start Prilosec 40 mg once daily 30 minutes before break fast 2. Discuss with Furnace Keeper about better glycemic Control 3. Labs as below 4. Follow up in 2 months Office Visit on 01/16/18 -CBC + DIFF -COMP METABOLIC PANEL -LIPASE BLD -GGT BLD -BILIRUBIN DIRECT BLD -HGB A1C -ENDOMYSIAL IGA AB -TRANSGLUTAMINASE IGA -GLIADIN (DEAMINATED) ABS -VIBRATION CONTROLLED TRANSIENT ELASTOGRAPHY (POC) Gregg Graham MD Pediatric Gastroenterology Staff January 16, 2018 1:45 PM Pager Number [phone] Scott Braden MD for an opinion regarding Vahid Wang. My final recommendations will be communicated back to the requesting physician by way of shared Medical record or letter to requesting physician via US mail. CC: Scott Braden MD [id number] [facility] [id number] CNOV Observed: 01/16/2018 Status: COMPLETED Source: ARTHUR 1:30 PM [facility] REPOSITORY Office Visit (PGASMN) VAHID WANG ([id number]) 2000 M Date Time Provider Department 01/16/18 1:30 PM GREGG VALENZUELA During your visit today, we recorded the following information about you: Temperature Pulse Respiration Blood pressure 98.5 degrees 120/minute 20/minute 114/68 Weight Height 62.1 kg 1.699 m Gregg Graham MD 01/16/2018 5:35 PM Signed Referring MD: This patient was referred by Scott Braden MD for evaluation and management of hepatic steatosis and elevated liver enzymes and our recommendations will be communicated back (either as a letter or via electronic medical record delivery) to Scott Braden MD. Medications: Current Outpatient Prescriptions on File Prior to Visit: glucagon, human recombinant, (GLUCAGON EMERGENCY KIT, HUMAN,) 1 mg injection use as directed, call if used insulin aspart (NOVOLOG FLEXPEN) 100 unit/mL inpn TAKE 1 UNIT FOR 7 GRAMS CARB UP TO 100 UNITS DAILY blood sugar diagnostic (FREESTYLE LITE STRIPS) test strip USE TO TEST UP TO 12 TIMES A DAY DIRECTED Insulin [place], Disposable, (BD ULTRAFINE III MINI PEN) 31 gauge x 3/16 ndle use as directed 10 times daily insulin glargine (LANTUS) 100 unit/mL (3 mL) inpn Inject 21 Units subcutaneously daily at bedtime. (Patient taking differently: Inject 30 Units subcutaneously daily at bedtime. ) Insulin Syringe-Needle U-100 (BD INSULIN SYRINGE HALF UNIT) 0.3 mL 31 x 5/16 syrg use as directed Lancets lancets Use as instructed No current facility-administered medications on file prior to visit. HPI: Vahid Wang is a 17 year old male with past medical history of type 1 diabetes diagnosed at 2 years of age being seen today in new consultation in pediatric GI clinic secondary to issues with hepatomegaly and elevated liver enzymes. History provided by patient and paternal grand mother. He was evaluated previously by Dr. Jimenez for abdominal pain and evidence of steatosis on ultrasound. [facility] [place] [facility] to concerns for DKA. He did not have DKA during admission. During hospitalization, he had evaluation for viral hepatitis and autoimmune hepatitis which were within normal limits. 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 Jimenez after discharge from the hospital. He also had celiac panel which was within normal limits. He did not follow-up as recommended. His diabetes is being managed by pediatric oceanographer geological in [place]. Reports that his blood glucose is in the range of 190-200 in the past few days. No jaundice, itching or easy bleeding or bruising reported. No excessive Tylenol intake reported. No behavioral changes or sleep issues reported. Abdominal pain - intermittent, epigastric and RUQ, 8/10 in intensity, aggravated by exercises and sometimes by eating, lasting for 30 minutes to 2 hours, relieved by lying down. He also has nausea associated with abdominal pain but no vomiting reported. No dysphagia or odynophagia reported. He has good appetite. He takes Prilosec 20 mg as needed. He also reports heartburns. Bowel movements are once or twice daily, normal in consistency, with no diarrhea or blood in stools. There are no mouth sores, rashes, joint pains or unexplained fevers noted. He denies excessive caffeine or NSAID intake. Review Of Systems: Constitutional:- No significant change in weight, no fatigue. ENDO:- Type 1 DM CVS:- No history of heart disease, No history of heart murmurs RESP:- no wheezing, frequent cough or shortness of breath GI:- See HPI NEURO:-Normal growth and development. :-negative for dysuria/micturition problems Integumentary:- Negative for lesions, rash, and itching. Musculoskeletal:- Negative for joint pains/edema Psychiatry:- negative for anxiety Hematologic/Lymphatic:-No history of anemia, bruising, bleeding abnormalities. Allergic/Immunologic:-no hay fever or drug allergies Review of systems is otherwise unremarkable and normal. Past Medical History: PEDIATRIC HISTORY Gestational age: wks Delivery method: weight: N/A Discharge weight: N/A Length: N/A HC: N/A Feeding method: Additional comments: Term infant Jaundice at and not underlights passed first stool fine PAST MEDICAL HISTORY Diagnosis Date - Attention deficit disorder with hyperactivity(314.01) - Conduct disorder, childhood onset type - Foot fracture, right growth plate involved - Fracture of clavicle, right, closed 2016 - Generalized convulsive epilepsy without mention of intractable epilepsy - Other abnormal heart sounds normal echocardiogram. Holter monitor that - Right wrist fracture - Sensorineural hearing loss, unspecified - Type I (juvenile type) diabetes mellitus without mention of complication, not stated as uncontrolled 05/19 - Unspecified viral meningitis PAST SURGICAL HISTORY Procedure Laterality Date - MYRINGOTOMY W TUBE,BILATERAL(2) Immunizations: UTD Allergies: ALLERGIES No Known Allergies Development: Appropriate for age Family History: (-) Crohn's disease (-) Ulcerative colitis (-) Celiac disease (-) GERD (-) PUD (-) GI polyps (-) GI cancers (-) IBS (-) Thyroid disease (-) Cystic fibrosis Social History: Lives at home with Grand mother Foreign travel/swimming: None Water sources: [place] water Antibiotic use: No recent use Physical Exam: Wt 62.1 kg (136 lb 12.8 oz) BMI 21.5 kg/m2 (23 %ile (Z= - 0.72) based on CDC 2-20 Years [id number] data using vitals from 01/16/2018.)(36 %ile (Z= -0.36) based on CDC 2-20 Years BMI-for-age data using vitals from 01/16/2018.) General/Constitutional:- alert and active in no apparent distress Head:- Normocephalic Eye:- conjunctiva clear, no icterus Oropharynx:- moist mucous membranes, tonsils without hypertrophy and no exudates present Neck/Lymphatic:- supple, no adenopathy Cardiac:- Regular Rate and Rhythm without murmurs or clicks Respiratory:- clear to auscultation Gastrointestinal:- Abdomen is soft, non-tender; BS normal, there are no masses or organomegaly and there are no abdominal or flank bruits noted on auscultation. Liver span 13.5 cm Rectal :- deferred exam Neuro:- Muscle tone normal, Normal age appropriate gait and No involuntary motions. Musculoskeletal :- Extremities with FROM and no problems identified., spine without evidence of scoliosis Extremity:- Normal exam of the extremities. No clubbing, cyanosis, or edema. Skin:-normal color, no jaundice or rash Labs/Imaging: Reviewed labs from scanned documents dated October 2017 ALT 97 AST 79 albumin 3.4 Normal bili Component Latest Ref Rng AND Units 11/22/2016 Hep B Core Ab, Total Negative Negative Hep C Antibody IA Negative Negative Hep B Surface Ag Negative Negative Hep B Surface Ab, Qual Negative Negative TAMIKO by EIA, Qual Negative Negative TAMIKO by EIA OD Ratio 0.1 Liver-Kidney Microsomal Abs Negative Negative Smooth Muscle Ab Screen Negative Negative US RUQ 01/09/2018 RESULT: Pancreas: ?Normal sonographic appearance. ?? Portions obscured: ?Tail. ?? Lesions: ?None. Liver: ?Diffusely enlarged with the right hepatic lobe extending inferior to the inferior margin of the right kidney. ?? ? Echotexture: ?Normal, homogeneous. ?? ? Echogenicity: ?Again diffusely increased with loss of peripheral periportal echoes. ?? ? Surface contour: ?Smooth. ?? ? Lesions: ?None. Biliary: ?No intrahepatic biliary duct dilation. ?? ? CBD: ?0.25 cm at the hilum. ?? ? Gallbladder: ?Normal caliber. ?-Contents: ?No cholelithiasis. ?-Wall: ?Normal. ?-Other: ?No pericholecystic fluid. Spleen: ?? ? Craniocaudal length: ?12.6 cm, normal. ?? ? Lesions: ?None. Right Kidney: ?? ? -Renal length: ?12.1 cm. ?? ? -Parenchyma: ?Normal parenchymal echogenicity. Normal parenchymal thickness. ?? ? -Collecting system: ?No hydronephrosis. ?? ? -Calculus: ?No echogenic, shadowing calculus. ?? ? -Lesion: ?None. Left Kidney: ?? ? -Renal length: ?11.1 cm. ?? ? -Parenchyma: ?Normal parenchymal echogenicity. Normal parenchymal thickness. ?? ? -Collecting system: ?No hydronephrosis. ?? ? -Calculus: ?No echogenic, shadowing calculus. ?? ? -Lesion: ?None. IVC: ?Imaged segment is patent. Abdominal Aorta: ?Imaged segment is patent. Ascites: ?None. Impression: Vahid Wang is a 17 year old male with past medical history of type 1 diabetes diagnosed at 2 years of age being seen today in new consultation in pediatric GI clinic secondary to issues with hepatomegaly, elevated liver enzymes and intermittent epigastric abdominal pain associated with nausea and heart medina. He was evaluated in the past by Dr. Jimenez and had negative workup for chronic viral hepatitis and autoimmune hepatitis. He did not follow-up as recommended. Review of labs from outside hospital in October 2017 show elevated ALT and AST. Recent ultrasound in December 2017 show hepatomegaly along with hepatic steatosis. He also has been taking Prilosec as needed for epigastric pain and heart medina. Of note, he also has poorly controlled type 1 diabetes. 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 Ultrasound cannot distinguish between glycogenic hepatopathy and hepatic steatosis. It is also possible that he may have nonalcoholic fatty liver disease in setting of poorly controlled diabetes which has been reported in patients with type 1 diabetes secondary to long-standing hyperglycemia. Fibroscan today did show some evidence of steatosis (CAP score 313) but no fibrosis (4.5 kpa). So recommended to discuss with oceanographer geological for optimal glycemic control which should improve hepatopathy and liver enzymes. With regards to abdominal pain, possible causes are GERD/gastritis, stretching of the liver capsule from hepatomegaly, pancreatitis or celiac disease. So recommended to start him on Prilosec on a scheduled basis for optimal acid control and obtain labs to evaluate for other pathologies. Also recommended lifestyle modifications such as avoiding spicy, greasy or acidic foods and NSAIDs. Meanwhile we'll also repeat liver enzymes and hemoglobin A1c. I stressed the importance of follow-up and recommended to follow up with me in 2 months. If there is no improvement in abdominal pain, will consider EGD with biopsy to evaluate for other pathologies such as peptic ulcer disease or H. pylori. Plan: 1. Start Prilosec 40 mg once daily 30 minutes before break fast 2. Discuss with Furnace Keeper about better glycemic Control 3. Labs as below 4. Follow up in 2 months Office Visit on 01/16/18 -CBC + DIFF -COMP METABOLIC PANEL -LIPASE BLD -GGT BLD -BILIRUBIN DIRECT BLD -HGB A1C -ENDOMYSIAL IGA AB -TRANSGLUTAMINASE IGA -GLIADIN (DEAMINATED) ABS -VIBRATION CONTROLLED TRANSIENT ELASTOGRAPHY (POC) Gregg Graham MD Pediatric Gastroenterology Staff January 16, 2018 1:45 PM Pager Number [phone] Scott Braden MD for an opinion regarding Vahid Wang. My final recommendations will be communicated back to the requesting physician by way of shared Medical record or letter to requesting physician via US mail. CC: Scott Braden MD [id number] [facility] [id number] Gregg Graham MD 01/16/2018 2:23 PM Signed 1. Discuss with Furnace Keeper about better glucose control 2. Start Prilosec 40 mg once daily 30 minutes before break fast 3. Labs today 4. Follow up in 2 months Referring Provider: LEANNA KILGORE [[id number]] Allergies As of Date: 01/16/2018 (No Known Allergies) Date Reviewed: 01/16/2018 Reviewed by: Leslie (Nick) [place] LPN - Fully Assessed Reason for Visit: Follow Up [171] Cmt: fatty liver Primary Visit Diagnosis:Hepatic steatosis [K76.0] Other Visit Diagnoses:Hepatomegaly, not elsewhere classified [R16.0] Nausea [R11.0] Type 1 diabetes mellitus without complication (HCC) [E10.9] Epigastric pain [R10.13] Heartburn [R12] Gastroesophageal reflux disease, esophagitis presence not specified [K21.9] Order(s):VIBRATION CONTROLLED TRANSIENT ELASTOGRAPHY (POC) [[id number]] Order #: [id number]. #:[id number]: 1 CBC + DIFF [SQCBCDIF] Order #: [id number] FUTURE COMP METABOLIC PANEL [SQCMP] Order #: [id number] FUTURE LIPASE BLD [SQLIPA] Order #: [id number] FUTURE GGT BLD [SQGGT] Order #: [id number] FUTURE BILIRUBIN DIRECT BLD [SQCBIL] Order #: [id number] FUTURE HGB A1C [XJTKL0J] Order #: [id number] FUTURE ENDOMYSIAL IGA AB [SQENDOMY] Order #: [id number] FUTURE TRANSGLUTAMINASE IGA [SQTGIGA] Order #: [id number] FUTURE GLIADIN (DEAMINATED) ABS [SQGLIAD] Order #: [id number] FUTURE Omeprazole (PRILOSEC) 40 mg capsuleTake 1 capsule by mouth once daily.Disp: 30 capsuleRfl: 1 Prescriptions as of 01/16/2018 Sig: GLUCAGON (HUMAN RECOMBINANT) * use as directed, call if used INSULIN ASPART U-100 100 UNI* TAKE 1 UNIT FOR 7 GRAMS CARB * BLOOD SUGAR DIAGNOSTIC STRIPS USE TO TEST UP TO 12 TIMES A * PEN NEEDLE, DIABETIC 31 GAUGE* use as directed 10 times daily INSULIN GLARGINE (U-100) 100 * Inject 21 Units subcutaneousl* Patient taking differently: Inject 30 Units subcutaneousl* INSULIN SYRINGE-NEEDLE U-100 * use as directed LANCETS Use as instructed OMEPRAZOLE 40 MG CAPSULE,MANAN* Take 1 capsule by mouth once * Problem List As Of Date 01/16/2018 Noted Resolved Type 1 diabetes mellitus (HCC) [E10.9] INVALID FOR* Closed Buckle Fracture of Radius [OTQ4905] INVALID FOR* ADD (Attention Deficit Disorder) [F98.8] INVALID FOR* Fatty liver disease, nonalcoholic [K76.0] INVALID FOR* Accidental striking against or bumped into by a*INVALID FOR* Activity, running [Y93.02] INVALID FOR* Activity, soccer [Y93.66] INVALID FOR* Anxiety disorder [F41.9] INVALID FOR* Contusion of right foot [S90.31XA] INVALID FOR* Cramp and spasm [R25.2] INVALID FOR* Diabetes mellitus without complication (HCC) [E*INVALID FOR* Type 1 diabetes mellitus with hyperglycemia (HC*INVALID FOR* Hyperglycemia [R73.9] INVALID FOR* Hepatomegaly, not elsewhere classified [R16.0] INVALID FOR* Hyperglycemia, unspecified [R73.9] INVALID FOR* Hyperkalemia [E87.5] INVALID FOR* Hypo-osmolality and hyponatremia [E87.1] INVALID FOR* Chronic sinusitis [J32.9] INVALID FOR* long-term (current) use of insulin (HCC) [Z79.4]INVALID FOR* Nausea [R11.0] INVALID FOR* Nausea with vomiting, unspecified [R11.2] INVALID FOR* Other and unspecified overexertion or strenuous*INVALID FOR* Other external cause status [Y99.8] INVALID FOR* Other fatigue [R53.83] INVALID FOR* Other malaise [R53.81] INVALID FOR* Other specified abnormal findings of blood chem*INVALID FOR* Hepatic steatosis [K76.0] INVALID FOR* Encounter for general adult medical examination*INVALID FOR* Suicidal ideations [R45.851] INVALID FOR* Abnormal electrocardiogram [R94.31] INVALID FOR* Right upper quadrant pain [R10.11] INVALID FOR* Soccer field as place of occurrence of external*INVALID FOR* Strain of unspecified muscle(s) and tendon(s) a*INVALID FOR* Suicidal ideation [R45.851] INVALID FOR* Unspecified external cause status [Y99.9] INVALID FOR* Unspecified place or not applicable [Y92.9] INVALID FOR* Unspecified sprain of right foot, initial encou*INVALID FOR* Ketonuria [R82.4] INVALID FOR* Epigastric pain [R10.13] INVALID FOR* Heartburn [R12] INVALID FOR* Gastroesophageal reflux disease [K21.9] INVALID FOR* Other instructions from your clinician: 1. Discuss with Furnace Keeper about better glucose control 2. Start Prilosec 40 mg once daily 30 minutes before break fast 3. Labs today 4. Follow up in 2 months Prescriptions ordered this encounter Disp Refills Start End OMEPRAZOLE 40 MG CAPSULE,DELAYED REL* 30 c* 1 01/16/2018 Route: ORAL Sig: Take 1 capsule by mouth once daily. Disposition: Return in about 2 months (around 03/19/2018). Follow-up and Disposition History Recorded Encounter Status:Closed by GREGG VALENZUELA MD on 01/16/18 PROGRESS Observed: 01/10/2018 Status: COMPLETED Source: [place] 8:15 AM [facility] REPOSITORY HNO ID: [id number] Author: Wanda John Psr Service: (none) Author Type: (none) Type: Progress Notes Filed: 01/10/2018 8:15 AM Note Text: Ultrasound completed on 01/09/2018 PROGRESS Observed: 01/09/2018 Status: COMPLETED Source: [place] 5:42 PM [facility] REPOSITORY HNO ID: [id number] Author: Carol Chopra Psr Service: (none) Author Type: (none) Type: Progress Notes Filed: 01/09/2018 5:42 PM Note Text: This was scheduled and already done on 01-09-18. Carol Chopra Psr PROGRESS Observed: 01/09/2018 Status: COMPLETED Source: [place] 2:31 PM [facility] REPOSITORY HNO ID: [id number] Author: Ximena Alvarez Service: (none) Author Type: Circular Distributor Type: Progress Notes Filed: 01/09/2018 2:31 PM Note Text: Radiology Service Progress Note PATIENT NAME: Vahid Wang DATE OF SERVICE: January 09, 2018 TIME: 2:31 PM PATIENT IDENTITY VERIFICATION COMPLETED USING TWO (2) METHODS: Patient confirmed name verbally and Date of . PATIENT GENDER DATA: Male PATIENT RELEVANT IMPLANT DATA REVIEWED: Not Applicable RADIOLOGY DEPARTMENT: Ultrasound PERIPHERAL IV DATA: Not applicable SIGNED BY: XIMENA ALVAREZ RDMS RVDorian January 09, 2018 2:31 PM US ABDOMEN COMPLETE Observed: 01/09/2018 Status: F Source: [place] 2:30 PM [facility] REPOSITORY * * *Final Report* * * DATE OF EXAM: Jan 09 2018 2:30PM [facility] 1040 - US ABDOMEN COMPLETE / PROCEDURE REASON: multiple diagnoses * * * * Physician Interpretation * * * * EXAMINATION: COMPLETE ABDOMINAL ULTRASOUND CLINICAL HISTORY: Right upper quadrant pain, type 1 diabetes mellitus with hyperglycemia TECHNIQUE: Sonography of the abdomen was performed. Images were obtained and stored in a permanent archive. MQ: UAbC_1 COMPARISON: Right upper quadrant ultrasound 11/14/2016, CT abdomen and pelvis 11/21/2016 RESULT: Pancreas: Normal sonographic appearance. Portions obscured: Tail. Lesions: None. Liver: Diffusely enlarged with the right hepatic lobe extending inferior to the inferior margin of the right kidney. Echotexture: Normal, homogeneous. Echogenicity: Again diffusely increased with loss of peripheral periportal echoes. Surface contour: Smooth. Lesions: None. Biliary: No intrahepatic biliary duct dilation. CBD: 0.25 cm at the hilum. Gallbladder: Normal caliber. -Contents: No cholelithiasis. -Wall: Normal. -Other: No pericholecystic fluid. Spleen: Craniocaudal length: 12.6 cm, normal. Lesions: None. Right Kidney: -Renal length: 12.1 cm. -Parenchyma: Normal parenchymal echogenicity. Normal parenchymal thickness. -Collecting system: No hydronephrosis. -Calculus: No echogenic, shadowing calculus. -Lesion: None. Left Kidney: -Renal length: 11.1 cm. -Parenchyma: Normal parenchymal echogenicity. Normal parenchymal thickness. -Collecting system: No hydronephrosis. -Calculus: No echogenic, shadowing calculus. -Lesion: None. IVC: Imaged segment is patent. Abdominal Aorta: Imaged segment is patent. Ascites: None. IMPRESSION: Redemonstrated hepatomegaly with diffuse hepatic steatosis. No focal hepatic mass and no sonographic evidence of acute cholecystitis. Fork Operator: PSCB Transcribe Date/Time: Jan 09 2018 2:33P Dictated by : CHARLES AYON MD This examination was interpreted and the report reviewed and electronically signed by: MARCIE SWEET MD on Jan 09 2018 3:00PM EST [id number] Observed: 01/08/2018 Status: COMPLETED Source: [place] 3:15 PM [facility] REPOSITORY Office Visit (PEDSWS) VAHID WANG ([id number]) 2000 M Date Time Provider Department 01/08/18 3:15 PM SCOTT BRADEN During your visit today, we recorded the following information about you: Temperature Pulse Respiration Blood pressure 97.9 degrees 72/minute 18/minute 110/64 Weight 61.7 kg Scott Braden MD 01/08/2018 6:23 PM Signed Patient presents with: ER F/UP: wAS SEEN ON 01/03/2018 @ [facility] SUBJECTIVE: Vahid Wang is a 17 year old male who is here for a chief complaint of ED f.u for the past 5 day(s). At the day he was seen had Ketons, nausea, abd pain and glucosuria so sent from our office to the ED. Pt was not acidotic at the time. He got IVF. Symptoms include abdominal pain that has been ongoing for a year. Has seen Dr. Jimenez in [place]. RLQ and R epigastric. Had large liver 11/2016. Has not returned to GI Has had ongoing diarrhea- frequent and lose stool, abd cramping. . Fluid intake has been normal. Appetite has been low. Denies congestion, rhinorrhea, cough. Home treatment: none Sick contacts: none known PHM: IMPORTED PAST MEDICAL HISTORY Diagnosis Date - Attention deficit disorder with hyperactivity(314.01) - Conduct disorder, childhood onset type - Foot fracture, right growth plate involved - Fracture of clavicle, right, closed 2016 - Generalized convulsive epilepsy without mention of intractable epilepsy - Other abnormal heart sounds normal echocardiogram. Holter monitor that - Right wrist fracture - Sensorineural hearing loss, unspecified - Type I (juvenile type) diabetes mellitus without mention of complication, not stated as uncontrolled 05/19 - Unspecified viral meningitis IMPORTED PAST SURGICAL HISTORY Procedure Laterality Date - MYRINGOTOMY W TUBE,BILATERAL(2) SH: Smokers: No ROS: otherwise normal Last 4 Encounter Wt Readings: Date: Wt: 01/08/2018 61.7 kg (136 lb) (22 %, Z= -0.76)* 01/03/2018 60.6 kg (133 lb 8 oz) (19 %, Z= -0.89)* 12/12/2017 63 kg (139 lb) (28 %, Z= -0.60)* 11/08/2017 61.2 kg (135 lb) (22 %, Z= -0.78)* Physical Exam: General: alert and active in no apparent distress Eyes: normal Ears: External ears normal, canals clear Nose/Sinuses :Nares normal. Septum midline. Mucosa normal. No drainage or sinus tenderness. Oropharynx :moist mucous membranes, tonsils without hypertrophy and no exudates present Cardiovascular : Regular Rate and Rhythm without murmurs or clicks Lungs: clear to auscultation Abdomen :palpation: no masses; tenderness: RUQ moderate, feels like increased liver edge but difficult exam IMP RUQ pain h/o enlarged fatty liver PLAN 1) reviewed criteria for calling or returning for further evaluation. 2) symptomatic treatment options reviewed 3) per orders- will get u/s 4) likely GI referral Scott Braden MD Referring Provider: SELF [[id number]] Allergies As of Date: 01/08/2018 (No Known Allergies) Date Reviewed: 01/08/2018 Reviewed by: Santa Seymour Ma - Fully Assessed Reason for Visit: ER F/UP [Other] Cmt: wAS SEEN ON 01/03/2018 @ [facility] Primary Visit Diagnosis:Right upper quadrant pain [R10.11] Other Visit Diagnoses:Type 1 diabetes mellitus with hyperglycemia (HCC) [E10.65] Hepatomegaly [R16.0] Order(s):US ABDOMEN COMPLETE [[id number]] Order #: [id number] FUTURE Prescriptions as of 01/08/2018 Sig: GLUCAGON (HUMAN RECOMBINANT) * use as directed, call if used INSULIN ASPART U-100 100 UNI* TAKE 1 UNIT FOR 7 GRAMS CARB * BLOOD SUGAR DIAGNOSTIC STRIPS USE TO TEST UP TO 12 TIMES A * PEN NEEDLE, DIABETIC 31 GAUGE* use as directed 10 times daily INSULIN GLARGINE (U-100) 100 * Inject 21 Units subcutaneousl* Patient taking differently: Inject 30 Units subcutaneousl* INSULIN SYRINGE-NEEDLE U-100 * use as directed LANCETS Use as instructed Problem List As Of Date 01/08/2018 Noted Resolved Type 1 diabetes mellitus (HCC) [E10.9] INVALID FOR* Closed Buckle Fracture of Radius [BXB2143] INVALID FOR* ADD (Attention Deficit Disorder) [F98.8] INVALID FOR* Fatty liver disease, nonalcoholic [K76.0] INVALID FOR* Accidental striking against or bumped into by a*INVALID FOR* Activity, running [Y93.02] INVALID FOR* Activity, soccer [Y93.66] INVALID FOR* Anxiety disorder [F41.9] INVALID FOR* Contusion of right foot [S90.31XA] INVALID FOR* Cramp and spasm [R25.2] INVALID FOR* Diabetes mellitus without complication (HCC) [E*INVALID FOR* Type 1 diabetes mellitus with hyperglycemia (HC*INVALID FOR* Hyperglycemia [R73.9] INVALID FOR* Hepatomegaly, not elsewhere classified [R16.0] INVALID FOR* Hyperglycemia, unspecified [R73.9] INVALID FOR* Hyperkalemia [E87.5] INVALID FOR* Hypo-osmolality and hyponatremia [E87.1] INVALID FOR* Chronic sinusitis [J32.9] INVALID FOR* long-term (current) use of insulin (HCC) [Z79.4]INVALID FOR* Nausea [R11.0] INVALID FOR* Nausea with vomiting, unspecified [R11.2] INVALID FOR* Other and unspecified overexertion or strenuous*INVALID FOR* Other external cause status [Y99.8] INVALID FOR* Other fatigue [R53.83] INVALID FOR* Other malaise [R53.81] INVALID FOR* Other specified abnormal findings of blood chem*INVALID FOR* Other specified diseases of liver [K76.89] INVALID FOR* Encounter for general adult medical examination*INVALID FOR* Suicidal ideations [R45.851] INVALID FOR* Abnormal electrocardiogram [R94.31] INVALID FOR* Right upper quadrant pain [R10.11] INVALID FOR* Soccer field as place of occurrence of external*INVALID FOR* Strain of unspecified muscle(s) and tendon(s) a*INVALID FOR* Suicidal ideation [R45.851] INVALID FOR* Unspecified external cause status [Y99.9] INVALID FOR* Unspecified place or not applicable [Y92.9] INVALID FOR* Unspecified sprain of right foot, initial encou*INVALID FOR* Ketonuria [R82.4] INVALID FOR* Follow-up and Disposition History Recorded Encounter Status:Closed by SCOTT BRADEN MD on 01/08/18 PROGRESS Observed: 01/08/2018 Status: COMPLETED Source: [place] 3:13 PM [facility] HNO ID: [id number] Author: Scott Braden Service: (none) Author Type: Physician Type: Progress Notes Filed: 01/08/2018 6:23 PM Note Text: Patient presents with: ER F/UP: wAS SEEN ON 01/03/2018 @ [facility] SUBJECTIVE: Vahid Wang is a 17 year old male who is here for a chief complaint of ED f.u for the past 5 day(s). At the day he was seen had Ketons, nausea, abd pain and glucosuria so sent from our office to the ED. Pt was not acidotic at the time. He got IVF. Symptoms include abdominal pain that has been ongoing for a year. Has seen Dr. Jimenez in [place]. RLQ and R epigastric. Had large liver 11/2016. Has not returned to GI Has had ongoing diarrhea- frequent and lose stool, abd cramping. . Fluid intake has been normal. Appetite has been low. Denies congestion, rhinorrhea, cough. Home treatment: none Sick contacts: none known PHM: IMPORTED PAST MEDICAL HISTORY Diagnosis Date - Attention deficit disorder with hyperactivity(314.01) - Conduct disorder, childhood onset type - Foot fracture, right growth plate involved - Fracture of clavicle, right, closed 2016 - Generalized convulsive epilepsy without mention of intractable epilepsy - Other abnormal heart sounds normal echocardiogram. Holter monitor that - Right wrist fracture - Sensorineural hearing loss, unspecified - Type I (juvenile type) diabetes mellitus without mention of complication, not stated as uncontrolled 05/19 - Unspecified viral meningitis IMPORTED PAST SURGICAL HISTORY Procedure Laterality Date - MYRINGOTOMY W TUBE,BILATERAL(2) SH: Smokers: No ROS: otherwise normal Last 4 Encounter Wt Readings: Date: Wt: 01/08/2018 61.7 kg (136 lb) (22 %, Z= -0.76)* 01/03/2018 60.6 kg (133 lb 8 oz) (19 %, Z= -0.89)* 12/12/2017 63 kg (139 lb) (28 %, Z= -0.60)* 11/08/2017 61.2 kg (135 lb) (22 %, Z= -0.78)* Physical Exam: General: alert and active in no apparent distress Eyes: normal Ears: External ears normal, canals clear Nose/Sinuses :Nares normal. Septum midline. Mucosa normal. No drainage or sinus tenderness. Oropharynx :moist mucous membranes, tonsils without hypertrophy and no exudates present Cardiovascular : Regular Rate and Rhythm without murmurs or clicks Lungs: clear to auscultation Abdomen :palpation: no masses; tenderness: RUQ moderate, feels like increased liver edge but difficult exam IMP RUQ pain h/o enlarged fatty liver PLAN 1) reviewed criteria for calling or returning for further evaluation. 2) symptomatic treatment options reviewed 3) per orders- will get u/s 4) likely GI referral Scott Braden MD EMERGENCY DEPARTMENT Observed: 01/04/2018 Status: F Source: [place] SUMMARY 12:54 AM [facility] REPOSITORY [facility] Medical Records Department [address] [place] [address] Emergency Department Summary 01/03/181926 MR#: [id number] Acct: [id number] Name: VAHID WANG Rep #: [id number] : 2000 17 From: Charles Cortez MD PCP: Scott Braden MD Status: DEP ER - ER Visit Summary Date of Service: 01/03/18 Chief Complaint: Acute on chronic abdominal pain with nausea History of Present Illness: The patient is a 17 M 3 of his type 1 diabetes. Patient has chronic abdominal pain for more than a year. He states he had an extensive workup done including clinic main campus a year ago without specific diagnosis. Today he was seen at the [facility] urgent [facility]. He has had abdominal pain for the last 2 weeks. More severe. They checked a blood sugar there he states it was 196. They did serum ketones are positive they told him they were concerned he may be DKA and sent him to the ER. He has never had any abdominal surgery. He denies any abdominal trauma. He denies any fever. Physical Examination: Young male no acute distress. Vital signs are stable he is afebrile. He does clinically look mildly dehydrated with dry mucous membranes and a heart rate of 130. He does not look septic or toxic. H EENT exam dry mucous members otherwise unremarkable. Neck nontender no lymphadenopathy. Lungs auscultation bilaterally. Heart tachycardic rate about 120 no murmur. Chest wall nontender. Abdomen soft nondistended normal bowel sounds. Mild left upper left lower quadrant tenderness. No rebound or guarding no rigidity. Right upper right lower quadrant unremarkable. No signs of trauma. No peritoneal signs. No hernias or masses. No signs of obstruction. He is moving all 4 extremities. They are neurovascularly intact. Neurologically is awake alert with no focal deficits. Test Results: CBC normal white count is 6. BMP shows a sugar of 243. And gap is 17. Creatinine is 1.2. Liver enzymes are elevated they have been elevated multiple times in the past. Serum ketones are small. I suspect that secondary to dehydration ketosis from the nausea and vomiting. Emergency Department Course and Treatment: Treated with IV fluids, Toradol and IV Zofran. Treatment Plan: Repeat exam at 2244 patient is doing well. Abdomen is benign. He feels comfortable being discharged home. Disposition: Discharge Impression: Acute on chronic abdominal pain History of insulin-dependent diabetes Dehydration ketosis This note was generated with Spritzation software. It may contain incorrect words, spelling, and punctuation that were not noted in review of the chart prior to signing ED Disposition - Plan for ED Patient: Chief Complaint: Abd Pain Referrals: Scott Braden MD [Primary Care Provider] - What to do if you have Problems For any increased pain, shortness of breath, bleeding, nausea or vomiting, chest pain, or any unexpected problems, contact your Primary Care Provider. Call [facility] ([phone]) or report to the closest Emergency Room. Call 911 if necessary. 01/04/18 0054 <Electronically signed by Charles Cortez MD> Date Charles Cortez MD Cosigner Signature (If Indicated): Date CC: Scott Braden MD DISCHARGE INSTRUCTION Observed: 01/04/2018 Status: F Source: [place] 12:54 AM [facility] REPOSITORY [facility] Medical Records Department [address] [place] [address] Discharge Instruction 01/03/18 2249 MR#: [id number] Acct: [id number] Name: VAHID WANG #: [id number] : 2000 17 From: Charles Cortez MD PCP: Scott Braden MD Status: DEP ER ED Disposition - Plan for ED Patient: Disposition: Home or Assisted Living Chief Complaint: Abd Pain Instructions: ED Abdominal Pain Unkn Cause Prescriptions: Ondansetron [Zofran Odt] 4 mg PO Q4H PRN PRN #7 tab.rapdis PRN Reason: Nausea Referrals: Scott Braden MD [Primary Care Provider] - 1-2 Days if not improving Additional Instructions: Plenty of fluids and rest. Watch your blood sugars closely. Take your medications as prescribed. Zofran as needed for nausea. You may swallow the pill or hold underneath your tongue to let it dissolve. Return if feeling worse. What to do if you have Problems For any increased pain, shortness of breath, bleeding, nausea or vomiting, chest pain, or any unexpected problems, contact your Primary Care Provider. Call [facility] ([phone]) or report to the closest Emergency Room. Call 911 if necessary. 01/04/18 0054 <Electronically signed by Charles Cortez MD> Date Charles Cortez MD Cosigner Signature (If Indicated): Date CC: Scott Braden MD CBC W/DIFF, AUTOMATED Collected: 01/03/2018 Status: F Source: [place] 7:13 PM [facility] REPOSITORY TYPE CODE TESTS RESULT OUT OF RANGE REFERENCE UNITS LAB L100.1000 4.4-11.0 K/mm3 Normal WBC 6.0 LAB L100.1200 4.6-6.2 M/mm3 Normal RBC 5.04 LAB L100.1300 13.0-16.5 g/dl Normal HGB 16.2 LAB L100.1400 40-54 % Normal HCT 44.4 LAB L100.1500 80-94 fL Normal MCV 88.1 LAB L100.1600 27.0-32.0 pg High MCH 32.1 LAB L100.1700 32-36 g/gl High MCHC 36.5 LAB L100.1810 11.6-14.6 % Normal RDW CV 12.8 LAB L100.1820 35.1-43.9 fl Normal RDW SD 41.3 LAB L100.1900 150-450 K/mm3 Normal PLT 274 LAB L100.2000 6.2-12.0 fl Normal MPV 9.9 LAB L100.2100 47-70 % Normal NEUT% 55.1 LAB L100.2200 19-41 % Normal LY% 32.7 LAB L100.2300 0-10 % Normal MONO% 7.4 LAB L100.2400 0-5 % Normal EO% 3.5 LAB L100.2500 0-1 % Normal BASO% 0.5 LAB L100.2550 0.0-0.9 % Normal IM GRAN % 0.800 Result Comment: IG% - Immature Granulocytes (promyelocytes, myelocytes and metamyelocytes) > 1% indicates that a LEFT SHIFT is Present. LAB L100.2620 2.0-7.7 X10 3/uL Normal Absolute Neut 3.3 LAB L100.2720 0.83-4.51 X10 3/ul Normal Absolute Lymph 1.95 Performed By: #### L100.0100 #### [facility] [address] [place], [address] ACETONE SERUM Collected: 01/03/2018 Status: F Source: [place] 7:13 PM [facility] REPOSITORY TYPE CODE TESTS RESULT OUT OF REFERENCE UNITS RANGE LAB L501.6900 NEG High ACETONE SERUM SMALL Performed By: #### L501.6900 #### [facility] [address] [place], [address] BASIC METABOLIC Collected: 01/03/2018 Status: F Source: [place] PROFILE (BMP) 7:13 PM [facility] REPOSITORY TYPE CODE TESTS RESULT OUT OF RANGE REFERENCE UNITS LAB L501.0100 74-106 mg/dL High GLU 243 Result Comment: Slight Lipemia, Result may be falsely increased. Glucose result greater than or equal to 200 mg/dL suggests DIABETES MELLITUS per A.D.A. criteria. Please note revised GLUCOSE reference range effective 2017. LAB L501.1000 7-18 mg/dL Normal BUN 17 Result Comment: Slight Lipemia, Result may be falsely increased. LAB L501.1100 0.70-1.30 mg/dL CREAT,SERUM Normal 1.22 Result Comment: Slight Lipemia, Result may be falsely increased. The validity of the calculated GFR AND GFRAA in patients over 70 years has not been determined. Clinical correlation is essential. LAB L501.1110 >60 mL/min Normal EST GFR 81 Result Comment: Non- GFR Calc LAB L501.1115 >60 mL/min Normal EST GFR - AA 98 Result Comment: GFR Calc LAB L501.1255 ml/min Normal Estimated CRCL 84.72 LAB L501.1300 10-20 RATIO Normal BUN/CRE 13.9 LAB L501.2200 8.5-10 mg/dL Low .1 CA 8.4 Result Comment: Slight Lipemia, Result may be falsely increased. LAB L501.5300 136-145 mmol/L Normal NA 137 LAB L501.5600 3.5-5.1 mmol/L Normal K 3.6 Result Comment: Moderate Hemolysis, Result may be falsely increased.-Slight Lipemia, Result may be falsely increased. LAB L501.5900 98-107 mmol/L Normal CL 103 LAB L501.6100 21.0-32.0 mmol/L Low CO2 17.0 Result Comment: Slight Lipemia, Result may be falsely increased. LAB L501.6200 5-15 High GAP 17 Performed By: #### L500.2500, L500.3400, L501.2450 #### [facility] [address] [place], [address] LIVER PROFILE Collected: 01/03/2018 Status: F Source: [place] 7:13 PM [facility] REPOSITORY TYPE CODE TESTS RESULT OUT OF RANGE REFERENCE UNITS LAB L501.1500 6.4-8.2 g/dL Normal T PROT 7.0 Result Comment: Slight Lipemia, Result may be falsely increased. LAB L501.1800 3.2-5.0 g/dL Normal ALB 3.3 LAB L501.1950 2.2-4.2 g/dL Normal GLOB 3.7 LAB L501.4100 15-37 U/L High AST 126 Result Comment: Moderate Hemolysis, Result may be falsely increased.-Slight Lipemia, Result may be falsely increased. LAB L501.4305 45-117 U/L High ALK P 165 LAB L501.4405 16-61 U/L High ALT 204 Result Comment: Slight Lipemia, Result may be falsely increased. LAB L501.4600 0.20-1.00 mg/dL Normal T BILI 0.50 Result Comment: Slight Lipemia, Result may be falsely increased. LAB L501.4700 0.00-0.30 mg/dL Normal D < BILI 0.05 Result Comment: Slight Lipemia, Result may be falsely increased. Performed By: #### L500.2500, L500.3400, L501.2450 #### [facility] [address] [place], [address] LIPASE Collected: 01/03/2018 Status: F Source: [place] 7:13 PM [facility] REPOSITORY TYPE CODE TESTS RESULT OUT OF REFERENCE UNITS RANGE LAB L501.2450 73-393 U/L Low LIPASE 59 Performed By: #### L500.2500, L500.3400, L501.2450 #### [facility] [address] [place], [address] PROGRESS Observed: 01/03/2018 Status: COMPLETED Source: [place] 5:08 PM [facility] REPOSITORY HNO ID: [id number] Author: La Briggs (Alli) Don Service: (none) Author Type: Nurse Practitioner Type: Progress Notes Filed: 01/03/2018 5:51 PM Note Text: Patient brought in today by self (with grandma in waiting room--he did not drive himself) Type 1 Diabetic on Insulin reports blood glucose 200 today. presents today with fatigue, sleeping all the time, dizziness, no appetite and Having nausea abdominal pain x 2 weeks. Not eating his normal amount of food. States he does have enough food in the home. REVIEW OF SYSTEMS GENERAL: no fevers, activity and appetite down, see HPI HEENT: No changes in hearing or vision, no nose bleeds or other nasal problems. RESPIRATORY: Negative for cough, hemoptysis, wheezing, COPD, dyspnea or shortness of breath GI: + nausea, no vomiting, +;abd pain, see HPI; diarrhea x 2 today : voiding qs All other reviewed and negative other than HPI. GENERAL: alert and activity sl down, in no apparent distress EYES: conjunctiva clear, no drainage EARS: Right normal, Left normal NOSE/SINUSES : Nares normal. Septum midline. Mucosa normal. No drainage or sinus tenderness. OROPHARYNX: normal and moist mucous membranes NECK: normal, supple, no adenopathy CARDIOVASCULAR : apical 140 bpm ,without murmurs or clicks LUNGS: clear to auscultation, no cough, no retractions ABDOMEN : tenderness, colby RUQ and LUQ; periumbilical and has guarding; distended appearing abdomen SKIN : normal color to sl pale, no jaundice or rash ASSESSMENT: Type I Diabetic Probable DKA Abdominal pain, Fatigue, Dizziness, Nausea Tachycardia PLAN: Reviewed case with PCP and patient instructed to go to ER [facility]. Patient verbalizes understanding. Grandparent to drive him; grandparent agrees Current Outpatient Prescriptions: glucagon, human recombinant, (GLUCAGON EMERGENCY KIT, HUMAN,) 1 mg injection use as directed, call if used insulin aspart (NOVOLOG FLEXPEN) 100 unit/mL inpn TAKE 1 UNIT FOR 7 GRAMS CARB UP TO 100 UNITS DAILY blood sugar diagnostic (FREESTYLE LITE STRIPS) test strip USE TO TEST UP TO 12 TIMES A DAY DIRECTED Insulin [place], Disposable, (BD ULTRAFINE III MINI PEN) 31 gauge x 3/16 ndle use as directed 10 times daily insulin glargine (LANTUS) 100 unit/mL (3 mL) inpn Inject 21 Units subcutaneously daily at bedtime. (Patient taking differently: Inject 30 Units subcutaneously daily at bedtime. ) Insulin Syringe-Needle U-100 (BD INSULIN SYRINGE HALF UNIT) 0.3 mL 31 x 5/16 syrg use as directed Lancets lancets Use as instructed No current facility-administered medications for this visit. La Song APRN.COMMERCIAL SOLAR SALES CONSULTANT CNOV Observed: 01/03/2018 Status: COMPLETED Source: [place] 4:45 PM [facility] REPOSITORY Office Visit (PEDSWS) FELIPEVAHID ([id number]) 2000 M Date Time Provider Department 01/03/18 4:45 PM LA SONG (HEAVY EQUIPMENT SALES MANAGER) DANIELASWAlexia During your visit today, we recorded the following information about you: Temperature Pulse Respiration Blood pressure 98.2 degrees 140/minute 28/minute 112/80 Weight 60.6 kg La Song APRN.COMMERCIAL SOLAR SALES CONSULTANT 01/03/2018 5:51 PM Signed Patient brought in today by self (with grandma in waiting room--he did not drive himself) Type 1 Diabetic on Insulin reports blood glucose 200 today. presents today with fatigue, sleeping all the time, dizziness, no appetite and Having nausea abdominal pain x 2 weeks. Not eating his normal amount of food. States he does have enough food in the home. REVIEW OF SYSTEMS GENERAL: no fevers, activity and appetite down, see HPI HEENT: No changes in hearing or vision, no nose bleeds or other nasal problems. RESPIRATORY: Negative for cough, hemoptysis, wheezing, COPD, dyspnea or shortness of breath GI: + nausea, no vomiting, +;abd pain, see HPI; diarrhea x 2 today : voiding qs All other reviewed and negative other than HPI. GENERAL: alert and activity sl down, in no apparent distress EYES: conjunctiva clear, no drainage EARS: Right normal, Left normal NOSE/SINUSES : Nares normal. Septum midline. Mucosa normal. No drainage or sinus tenderness. OROPHARYNX: normal and moist mucous membranes NECK: normal, supple, no adenopathy CARDIOVASCULAR : apical 140 bpm ,without murmurs or clicks LUNGS: clear to auscultation, no cough, no retractions ABDOMEN : tenderness, colby RUQ and LUQ; periumbilical and has guarding; distended appearing abdomen SKIN : normal color to sl pale, no jaundice or rash ASSESSMENT: Type I Diabetic Probable DKA Abdominal pain, Fatigue, Dizziness, Nausea Tachycardia PLAN: Reviewed case with PCP and patient instructed to go to ER [facility]. Patient verbalizes understanding. Grandparent to drive him; grandparent agrees Current Outpatient Prescriptions: glucagon, human recombinant, (GLUCAGON EMERGENCY KIT, HUMAN,) 1 mg injection use as directed, call if used insulin aspart (NOVOLOG FLEXPEN) 100 unit/mL inpn TAKE 1 UNIT FOR 7 GRAMS CARB UP TO 100 UNITS DAILY blood sugar diagnostic (FREESTYLE LITE STRIPS) test strip USE TO TEST UP TO 12 TIMES A DAY DIRECTED Insulin [place], Disposable, (BD ULTRAFINE III MINI PEN) 31 gauge x 3/16 ndle use as directed 10 times daily insulin glargine (LANTUS) 100 unit/mL (3 mL) inpn Inject 21 Units subcutaneously daily at bedtime. (Patient taking differently: Inject 30 Units subcutaneously daily at bedtime. ) Insulin Syringe-Needle U-100 (BD INSULIN SYRINGE HALF UNIT) 0.3 mL 31 x 5/16 syrg use as directed Lancets lancets Use as instructed No current facility-administered medications for this visit. La Song APRN.KAYLEE Song APRN.KAYLEE 01/03/2018 5:50 PM Signed Orders reviewed. Patient/grparent verbalize understanding. Referring Provider: SELF [200] Allergies As of Date: 01/03/2018 (No Known Allergies) Date Reviewed: 01/03/2018 Reviewed by: La Briggs (Valve Inserter) Don - Fully Assessed Reason for Visit: Abdominal Pain [1] Cmt: x 1-2 weeks, no known injury. No known fevers. Nausea [70] Cmt: x 2-3 days, feels best when able to lie down, this happens when he stands up Diarrhea [35] Cmt: Onset early this morning, x 2 episodes today Fatigue [46] Cmt: Noted in the last 1-2 weeks, sleeping more, feels tired all the time. Reporting sleeping more than 12 hours daily. Reason For Visit History Recorded Primary Visit Diagnosis:Dizziness [R42] Other Visit Diagnoses:Malaise and fatigue [R53.81, R53.83] Type 1 diabetes mellitus with other specified complication (HCC) [E10.69] Nausea [R11.0] Increased heart rate [R00.0] Order(s):GLUCOSE, BLOOD (POC) [9355521] Order #: [id number] UA DIP B/O [5858153] Order #: [id number] GLUCOSE, BLOOD (POC) [4776115] Order #: [id number]. #:[id number] Prescriptions as of 01/03/2018 Sig: GLUCAGON (HUMAN RECOMBINANT) * use as directed, call if used INSULIN ASPART U-100 100 UNI* TAKE 1 UNIT FOR 7 GRAMS CARB * BLOOD SUGAR DIAGNOSTIC STRIPS USE TO TEST UP TO 12 TIMES A * PEN NEEDLE, DIABETIC 31 GAUGE* use as directed 10 times daily INSULIN GLARGINE (U-100) 100 * Inject 21 Units subcutaneousl* Patient taking differently: Inject 30 Units subcutaneousl* INSULIN SYRINGE-NEEDLE U-100 * use as directed LANCETS Use as instructed Problem List As Of Date 01/03/2018 Noted Resolved Type 1 diabetes mellitus (HCC) [E10.9] INVALID FOR* Closed Buckle Fracture of Radius [PLE9188] INVALID FOR* ADD (Attention Deficit Disorder) [F98.8] INVALID FOR* Fatty liver disease, nonalcoholic [K76.0] INVALID FOR* Other instructions from your clinician: Orders reviewed. Patient/grparent verbalize understanding. Medications Discontinued During This Encounter Mjztvqhrtnmbend-Jwpdamiki-PE (BROMFE* 120 * 0 07/18/2017 01/03/2018 Route: ORAL Sig: Take 5-10 mL by mouth four times daily as needed. Patient not taking: Reported on 01/03/2018 Disc: Reason for discontinue is not on file. Follow-up and Disposition History Recorded Encounter Status:Closed by LA SONG CNP on 01/03/18 PROGRESS Observed: 12/12/2017 Status: COMPLETED Source: [place] 7:08 AM [facility] REPOSITORY O ID: [id number] Author: Rocio Crawford Service: (none) Author Type: Physician Processing Supervisor Type: Progress Notes Filed: 12/12/2017 7:30 AM Note Text: 12/12/2017 Patient presents with: Ear Pain: left x last night SUBJECTIVE: This is a 16 year old that is here today for Complaint(s) of left ear pain x last night. Pain intermittent. Denies fever/chills, nasal congestion, URI sx. No recent swimming. PAST MEDICAL HISTORY Diagnosis Date - Attention deficit disorder with hyperactivity(314.01) - Conduct disorder, childhood onset type - Foot fracture, right growth plate involved - Fracture of clavicle, right, closed 2016 - Generalized convulsive epilepsy without mention of intractable epilepsy - Other abnormal heart sounds normal echocardiogram. Holter monitor that - Right wrist fracture - Sensorineural hearing loss, unspecified - Type I (juvenile type) diabetes mellitus without mention of complication, not stated as uncontrolled 05/19 - Unspecified viral meningitis ALLERGIES Patient has no known allergies. MEDICATIONS Current Outpatient Prescriptions: glucagon, human recombinant, (GLUCAGON EMERGENCY KIT, HUMAN,) 1 mg injection use as directed, call if used insulin aspart (NOVOLOG FLEXPEN) 100 unit/mL inpn TAKE 1 UNIT FOR 7 GRAMS CARB UP TO 100 UNITS DAILY blood sugar diagnostic (FREESTYLE LITE STRIPS) test strip USE TO TEST UP TO 12 TIMES A DAY DIRECTED Insulin [place], Disposable, (BD ULTRAFINE III MINI PEN) 31 gauge x 3/16 ndle use as directed 10 times daily insulin glargine (LANTUS) 100 unit/mL (3 mL) inpn Inject 21 Units subcutaneously daily at bedtime. (Patient taking differently: Inject 30 Units subcutaneously every morning.) Insulin Syringe-Needle U-100 (BD INSULIN SYRINGE HALF UNIT) 0.3 mL 31 x 5/16 syrg use as directed Lancets lancets Use as instructed Kfanggdezfndext-Ykxqongku-NU (BROMFED DM) 2-30-10 mg/5 mL syrup Take 5-10 mL by mouth four times daily as needed. No current facility-administered medications for this visit. SOCIAL HISTORY REVIEW OF SYSTEMS All other reviewed and negative other than HPI. OBJECTIVE: Pulse 102 Temp 36.2 ?C (97.2 ?F) (Tympanic) Resp 20 Wt 63 kg (139 lb) APPEARANCE Well appearing, alert, in no acute distress, well-hydrated, well nourished. EYES PERRLA, conjunctiva and sclera normal. EARS External ears normal, left canal edematous and erythematous. Pain with movement of tragus. TM visualized, mildly pink, not bulging, landmarks normal. Right canal and TM normal. NOSE/SINUS Nares normal. Septum midline. Mucosa normal. No drainage or sinus tenderness. THROAT normal, no erythema NECK Supple, no adenopathy; thyroid symmetric, normal size, no bruits ASSESSMENT/PLAN: 1. Acute otitis externa of left ear, unspecified type - ICD9: 380.10, ICD10: H60.502 Keep ear clean and dry f/u in 5-7 days if not improving, sooner if worsening. Reviewed red flags and when to seek care sooner. - YZBKAFKM-NHKRYEVMM-LCXGRVDKR 3.5 MG-10,000 UNIT/ML-1 % EAR DROPS,SUSP The patient indicates understanding of these issues and agrees with the plan. Rocio Crawford PA-C CNOV Observed: 12/12/2017 Status: COMPLETED Source: [place] 7:00 AM [facility] REPOSITORY Office Visit (UCWSTR) VAHID WANG ([id number]) 2000 M Date Time Provider Department 12/12/17 7:00 AM ROCIO CRAWFORD) WSTR During your visit today, we recorded the following information about you: Temperature Pulse Respiration Weight 97.2 degrees 102/minute 20/minute 63 kg Rocio Crawford PA-C 12/12/2017 7:30 AM Signed 12/12/2017 Patient presents with: Ear Pain: left x last night SUBJECTIVE: This is a 16 year old that is here today for Complaint(s) of left ear pain x last night. Pain intermittent. Denies fever/chills, nasal congestion, URI sx. No recent swimming. PAST MEDICAL HISTORY Diagnosis Date - Attention deficit disorder with hyperactivity(314.01) - Conduct disorder, childhood onset type - Foot fracture, right growth plate involved - Fracture of clavicle, right, closed 2016 - Generalized convulsive epilepsy without mention of intractable epilepsy - Other abnormal heart sounds normal echocardiogram. Holter monitor that - Right wrist fracture - Sensorineural hearing loss, unspecified - Type I (juvenile type) diabetes mellitus without mention of complication, not stated as uncontrolled 05/19 - Unspecified viral meningitis ALLERGIES Patient has no known allergies. MEDICATIONS Current Outpatient Prescriptions: glucagon, human recombinant, (GLUCAGON EMERGENCY KIT, HUMAN,) 1 mg injection use as directed, call if used insulin aspart (NOVOLOG FLEXPEN) 100 unit/mL inpn TAKE 1 UNIT FOR 7 GRAMS CARB UP TO 100 UNITS DAILY blood sugar diagnostic (FREESTYLE LITE STRIPS) test strip USE TO TEST UP TO 12 TIMES A DAY DIRECTED Insulin [place], Disposable, (BD ULTRAFINE III MINI PEN) 31 gauge x 3/16 ndle use as directed 10 times daily insulin glargine (LANTUS) 100 unit/mL (3 mL) inpn Inject 21 Units subcutaneously daily at bedtime. (Patient taking differently: Inject 30 Units subcutaneously every morning.) Insulin Syringe-Needle U-100 (BD INSULIN SYRINGE HALF UNIT) 0.3 mL 31 x 5/16 syrg use as directed Lancets lancets Use as instructed Ristwmpaqbwhdtm-Vfspmpiyo-UD (BROMFED DM) 2-30-10 mg/5 mL syrup Take 5-10 mL by mouth four times daily as needed. No current facility-administered medications for this visit. SOCIAL HISTORY REVIEW OF SYSTEMS All other reviewed and negative other than HPI. OBJECTIVE: Pulse 102 Temp 36.2 ?C (97.2 ?F) (Tympanic) Resp 20 Wt 63 kg (139 lb) APPEARANCE Well appearing, alert, in no acute distress, well- hydrated, well nourished. EYES PERRLA, conjunctiva and sclera normal. EARS External ears normal, left canal edematous and erythematous. Pain with movement of tragus. TM visualized, mildly pink, not bulging, landmarks normal. Right canal and TM normal. NOSE/SINUS Nares normal. Septum midline. Mucosa normal. No drainage or sinus tenderness. THROAT normal, no erythema NECK Supple, no adenopathy; thyroid symmetric, normal size, no bruits ASSESSMENT/PLAN: 1. Acute otitis externa of left ear, unspecified type - ICD9: 380.10, ICD10: H60.502 Keep ear clean and dry f/u in 5-7 days if not improving, sooner if worsening. Reviewed red flags and when to seek care sooner. - VAXOTPUA-BHKFSUKVI-HHTZDZWXJ 3.5 MG-10,000 UNIT/ML-1 % EAR DROPS,SUSP The patient indicates understanding of these issues and agrees with the plan. Rocio Crawford PA-C Referring Provider: SELF [200] Allergies As of Date: 12/12/2017 (No Known Allergies) Date Reviewed: 12/12/2017 Reviewed by: Karyn Aldrich Ma - Fully Assessed Reason for Visit: Ear Pain [817] Cmt: left x last night Primary Visit Diagnosis:Acute otitis externa of left ear, unspecified type [H60.502] Order(s):toajmkme-pgytokoil-aqdwzetgmxgaxr (CORTISPORIN) 3.5-10,000-1 mg/mL-unit/mL-% otic suspensionUse 4 Drops in the left ear four times daily for 7 days.Disp: 1 BottleRfl: 0 Prescriptions as of 12/12/2017 Sig: GLUCAGON (HUMAN RECOMBINANT) * use as directed, call if used INSULIN ASPART U-100 100 UNI* TAKE 1 UNIT FOR 7 GRAMS CARB * BLOOD SUGAR DIAGNOSTIC STRIPS USE TO TEST UP TO 12 TIMES A * PEN NEEDLE, DIABETIC 31 GAUGE* use as directed 10 times daily INSULIN GLARGINE (U-100) 100 * Inject 21 Units subcutaneousl* Patient taking differently: Inject 30 Units subcutaneousl* INSULIN SYRINGE-NEEDLE U-100 * use as directed LANCETS Use as instructed VQDOUGFI-DDJTAYEEV-DCBCNVVWB * Use 4 Drops in the left ear f* BROMPHENIRAMINE-PSEUDOEPHEDRI* Take 5-10 mL by mouth four ti* Problem List As Of Date 12/12/2017 Noted Resolved Type 1 diabetes mellitus (HCC) [E10.9] INVALID FOR* Closed Buckle Fracture of Radius [ZWW8747] INVALID FOR* ADD (Attention Deficit Disorder) [F98.8] INVALID FOR* Fatty liver disease, nonalcoholic [K76.0] INVALID FOR* Prescriptions ordered this encounter Disp Refills Start End HNEISXGY-RQXUOZGSA-WJFMNZVSX 3.5 MG-* 1 Paddy* 0 12/12/2017 12/19/2017 Route: LEFT EAR Sig: Use 4 Drops in the left ear four times daily for 7 days. Encounter Status:Closed by ROCIO CRAWFORD PA-C on 12/12/17 12 LEAD ELECTROCARDIOGRAM Observed: 11/24/2017 Status: F Source: [place] 2:07 PM [facility] REPOSITORY [facility] Cardiovascular Services [address] [place] [address] 12 Lead EKG 11/22/17 1258 MR#: [id number] Acct: [id number] Name: VAHID WANG Jose Rep #: [id number] : 2000 16 From: Vince Gomez MD Attending Dr: Status: DEP ER Ordering Dr: Jacinto Dietrich MD Date: 05/09/18 Location: ED Sex: M C Admitted: Test Reason : BLOOD SUGAR Blood Pressure : / mmHG Vent. Rate : 102 BPM Atrial Rate : 102 BPM P-R Int : 130 ms QRS Dur : 090 ms QT Int : 326 ms P-R-T Axes : 058 019 017 degrees QTc Int : 424 ms Sinus tachycardia Nonspecific ST and T wave abnormality Abnormal ECG Confirmed by VINCE GOMEZ MD ([id number]), assistant editor CHRISSIE CACERES ([id number]) on 11/24/2017 2:07:14 PM Referred By: JOANN Confirmed By:VINCE GOMEZ MD 11/24/17 1407 Date Vince Gomez MD CC: Scott Braden MD; Jacinto Dietrich MD Signed EMERGENCY DEPARTMENT Observed: 11/22/2017 Status: F Source: [place] SUMMARY 3:26 PM [facility] REPOSITORY [facility] Medical Records Department [address] [place] [id number] Emergency Department Summary 11/22/17 1521 MR#: [id number] Acct: [id number] Name: VAHID WANG Rep #: [id number] : 2000 16 From: Jacinto Dietrich MD PCP: Scott Braden MD Status: REG ER - ER Visit Summary Date of Service: 11/22/17 Chief Complaint: Blood sugar greater than 600 History of Present Illness: The patient is a 16 M who presents to the emergency room because of nausea, blood sugar greater than 600 associated with shortness of breath, thirst, lightheadedness and blurred vision. He states he took 8 units of insulin prior to presentation. He states he is compliant with his insulin and diet. He denies headache. His only ocular complaint is blurred vision. He denies double vision loss of vision or ocular pain. He denies earache sore throat runny nose or congestion. He denies palpitations or chest pain. Denies shortness of breath or difficulty breathing. He denies abdominal pain. He does complain of frequency and urgency. He denies dysuria or hematuria. He denies back or flank pain. He denies any skin lesions or rash. Please read written note for complete detail Physical Examination: Vital signs remarkable for tachypnea and tachycardia. Head is atraumatic normocephalic. Pupils equal reactive. Extra muscle intact. TMs normal. Nares patent. Mucosa slightly dry. There is no ketones noted on his breath. Heart is rapid and regular. Lungs are clear to auscultation. Abdomen is soft and nontender. There is no CVA tenderness noted. There is no skin lesions noted. Neuro exam is nonfocal. Please read written note for complete detail. Test Results: CBC is normal. BMP is remarkable for a glucose of 349 with a CO2 21 and anion gap of 14. Serum ketones negative. Emergency Department Course and Treatment: IV was established and DKA order set was initiated. Initially he received 1 L of normal saline wide open. He is receiving a second liter of normal saline wide open. He did receive subcu insulin. His most recent B GT is 277. Since his blood sugars less than 300 he has a normal CO2 and anion gap plan is to discharge to home Treatment Plan: We will up with Dr. Braden his doctor and compliance with medication and diet Disposition: Discharged to home Impression: Hyperglycemia blood sugar greater than 600 This note was generated with Poxel dictation software. It may contain incorrect words, spelling, and punctuation that were not noted in review of the chart prior to signing ED Disposition - Plan for ED Patient: Disposition: Home or Assisted Living Chief Complaint: Hyperglycemia Instructions: ED Hyperglycemia Diabetic Referrals: Scott Braden MD [Primary Care Provider] - 2 Days What to do if you have Problems For any increased pain, shortness of breath, bleeding, nausea or vomiting, chest pain, or any unexpected problems, contact your Primary Care Provider. Call [facility] ([phone]) or report to the closest Emergency Room. Call 911 if necessary. 11/22/17 1526 <Electronically signed by Jacinto Dietrich MD> Date Jacinto Dietrich MD Cosigner Signature (If Indicated): Date CC: Scott Braden MD BASIC METABOLIC Collected: 11/22/2017 Status: F Source: [place] PROFILE (BMP) 3:22 PM [facility] REPOSITORY TYPE CODE TESTS RESULT OUT OF RANGE REFERENCE UNITS LAB L501.0100 74-106 mg/dL High GLU 261 Result Comment: Slight Lipemia, Result may be falsely increased. Glucose result greater than or equal to 200 mg/dL suggests DIABETES MELLITUS per A.D.A. criteria. Please note revised GLUCOSE reference range effective 2017. LAB L501.1000 7-18 mg/dL Normal BUN 15 Result Comment: Slight Lipemia, Result may be falsely increased. LAB L501.1100 0.70-1.30 mg/dL CREAT,SERUM Low 0.65 Result Comment: Slight Lipemia, Result may be falsely increased. The validity of the calculated GFR AND GFRAA in patients over 70 years has not been determined. Clinical correlation is essential. LAB L501.1110 >60 mL/min Normal EST GFR 168 Result Comment: Non- GFR Calc LAB L501.1115 >60 mL/min Normal EST GFR - AA 203 Result Comment: GFR Calc LAB L501.1255 ml/min Normal Estimated CRCL 178.31 LAB L501.1300 10-20 RATIO High BUN/CRE 23.0 LAB L501.2200 8.5-10 mg/dL Low .1 CA 7.7 Result Comment: Slight Lipemia, Result may be falsely increased. LAB L501.5300 136-145 mmol/L Normal NA 139 LAB L501.5600 3.5-5.1 mmol/L Normal K 3.6 Result Comment: Moderate Hemolysis, Result may be falsely increased.-Slight Lipemia, Result may be falsely increased. LAB L501.5900 98-107 mmol/L Normal CL 106 LAB L501.6100 21.0-32.0 mmol/L Normal CO2 24.0 Result Comment: Slight Lipemia, Result may be falsely increased. LAB L501.6200 5-15 Normal GAP 9 Performed By: #### L500.2500 #### [facility] [address] [place], [address] BEDSIDE GLUCOSE Collected: 11/22/2017 Status: F Source: RIP 3:18 PM [facility] REPOSITORY TYPE CODE TESTS RESULT OUT OF REFERENCE UNITS RANGE LAB L501.080 70-110 mg/dL High BEDSIDE GLU 259 Result Comment: MANAGEMENT OF PATIENT CARE PER NURSING PROTOCOL Performed By: #### L501.080 #### [place] [facility] [place] [place] Laboratory Point of Care [address] [place], [place] [id number] BEDSIDE GLUCOSE Collected: 11/22/2017 Status: F Source: RIP 2:24 PM [facility] REPOSITORY TYPE CODE TESTS RESULT OUT OF REFERENCE UNITS RANGE LAB L501.080 70-110 mg/dL High BEDSIDE GLU 277 Result Comment: MANAGEMENT OF PATIENT CARE PER NURSING PROTOCOL Performed By: #### L501.080 #### [place] [facility] [place] [place] Laboratory Point of Care [address] [place] [address] CBC W/DIFF, AUTOMATED Collected: 11/22/2017 Status: F Source: RIP 1:00 PM [facility] REPOSITORY TYPE CODE TESTS RESULT OUT OF RANGE REFERENCE UNITS LAB L100.1000 4.4-11.0 K/mm3 Normal WBC 6.3 LAB L100.1200 4.6-6.2 M/mm3 Normal RBC 5.08 LAB L100.1300 13.0-16.5 g/dl Normal HGB 16.0 LAB L100.1400 40-54 % Normal HCT 45.6 LAB L100.1500 80-94 fL Normal MCV 89.8 LAB L100.1600 27.0-32.0 pg Normal MCH 31.5 LAB L100.1700 32-36 g/gl Normal MCHC 35.1 LAB L100.1810 11.6-14.6 % Normal RDW CV 12.3 LAB L100.1820 35.1-43.9 fl Normal RDW SD 40.0 LAB L100.1900 150-450 K/mm3 Normal PLT 286 LAB L100.2000 6.2-12.0 fl Normal MPV 9.7 LAB L100.2100 47-70 % Normal NEUT% 55.1 LAB L100.2200 19-41 % Normal LY% 33.2 LAB L100.2300 0-10 % Normal MONO% 7.9 LAB L100.2400 0-5 % Normal EO% 2.4 LAB L100.2500 0-1 % Normal BASO% 0.5 LAB L100.2550 0.0-0.9 % Normal IM GRAN % 0.900 Result Comment: IG% - Immature Granulocytes (promyelocytes, myelocytes and metamyelocytes) > 1% indicates that a LEFT SHIFT is Present. LAB L100.2620 2.0-7.7 X10 3/uL Normal Absolute Neut 3.5 LAB L100.2720 0.83-4.51 X10 3/ul Normal Absolute Lymph 2.10 Performed By: #### L100.0100 #### [facility] [address] [place], [address] ACETONE SERUM Collected: 11/22/2017 Status: F Source: [place] 1:00 PM [facility] REPOSITORY TYPE CODE TESTS RESULT OUT OF REFERENCE UNITS RANGE LAB L501.6900 NEG High ACETONE SERUM SMALL Performed By: #### L501.6900 #### [facility] [address] [place], [address] BASIC METABOLIC Collected: 11/22/2017 Status: F Source: [place] PROFILE (BMP) 1:00 PM [facility] REPOSITORY Order Comment: SPECIMEN IS MARKEDLY LIPEMIC TYPE CODE TESTS RESULT OUT OF RANGE REFERENCE UNITS LAB L501.0100 74-106 mg/dL High GLU 349 Result Comment: Slight Lipemia, Result may be falsely increased. Glucose result greater than or equal to 200 mg/dL suggests DIABETES MELLITUS per A.D.A. criteria. Please note revised GLUCOSE reference range effective 2017. LAB L501.1000 7-18 mg/dL High BUN 20 Result Comment: Slight Lipemia, Result may be falsely increased. LAB L501.1100 0.70-1.30 mg/dL CREAT,SERUM Normal 1.03 Result Comment: Slight Lipemia, Result may be falsely increased. The validity of the calculated GFR AND GFRAA in patients over 70 years has not been determined. Clinical correlation is essential. LAB L501.1110 >60 mL/min Normal EST GFR 99 Result Comment: Non- GFR Calc LAB L501.1115 >60 mL/min Normal EST GFR - AA 120 Result Comment: GFR Calc LAB L501.1255 ml/min Normal Estimated CRCL 112.52 LAB L501.1300 10-20 RATIO BUN/CRE Normal 19.4 LAB L501.2200 8.5-10 mg/dL .1 CA Normal 8.7 Result Comment: Slight Lipemia, Result may be falsely increased. LAB L501.5300 136-145 mmol/L Low NA 135 LAB L501.5600 3.5-5.1 mmol/L High K 5.2 Result Comment: Moderate Hemolysis, Result may be falsely increased.-Slight Lipemia, Result may be falsely increased. LAB L501.5900 98-107 mmol/L Normal CL 100 LAB L501.6100 21.0-32.0 mmol/L Normal CO2 21.0 Result Comment: Slight Lipemia, Result may be falsely increased. LAB L501.6200 5-15 Normal GAP 14 Performed By: #### L500.2500 #### [facility] [address] [facility] [address] [place], [place], [address] BEDSIDE GLUCOSE Collected: 11/22/2017 Status: F Source: [place] 12:48 PM [facility] REPOSITORY TYPE CODE TESTS RESULT OUT OF REFERENCE UNITS RANGE LAB L501.080 70-110 mg/dL High BEDSIDE GLU 334 Result Comment: MANAGEMENT OF PATIENT CARE PER NURSING PROTOCOL Performed By: #### L501.080 #### [facility] Point of Care [address] [place], [place] [address] PROGRESS Observed: 11/08/2017 Status: COMPLETED Source: [place] 3:24 PM [facility] [place] REPOSITORY HNO ID: [id number] Author: Scott Braden Service: (none) Author Type: Physician Type: Progress Notes Filed: 11/09/2017 8:56 PM Note Text: Patient presents with: follow up [facility] ER visit: DKA, depression/suicidal ideation, was seeing a counselor, stopped seeing them 1-2 weeks ago, states It was all due to something with someone and that is better now. Was on Prozac for a little while, states that made it worse reviewed ED record 10/26- made suicidal threat had prior SI in Aug- tried to overdose insulin Had been seeing counselor josy at [facility]- stopped seeing him, didn't seem to get along [facility] felt due to PTSD- Vahid did not think it was due to that. having trouble with ex girlfriend hospital started prozac in Aug- made worse. Not has gotten closure with girlfriend (she had been dating best friend). feeling much better much happier last few days seeing Dad and step-mom no longer feels depressed. has had high BG, last visit with KASHIF chavez 2 weeks ago. PAST MEDICAL HISTORY Diagnosis Date - Attention deficit disorder with hyperactivity(314.01) - Conduct disorder, childhood onset type - Foot fracture, right growth plate involved - Fracture of clavicle, right, closed 2016 - Generalized convulsive epilepsy without mention of intractable epilepsy - Other abnormal heart sounds normal echocardiogram. Holter monitor that - Right wrist fracture - Sensorineural hearing loss, unspecified - Type I (juvenile type) diabetes mellitus without mention of complication, not stated as uncontrolled 05/19 - Unspecified viral meningitis SH: will be moving to [place] in December/ January Physical Exam: General: alert and active in no apparent distress, smiling Eyes: normal Ears: External ears normal. Canals clear. TM's normal. Nose/Sinuses : Nares normal. Septum midline. Mucosa normal. No drainage or sinus tenderness. Oropharynx : normal Neck: normal, supple, no adenopathy Cardiovascular : Regular Rate and Rhythm without murmurs or clicks Lungs: clear to auscultation Abdomen : Abdomen is soft, nontender, without organomegaly or masses. A: 16 with recent suicidal gesture but reports it as impulsive and reaction to relationship. HE denies current depression or SI He does not wish to take medicine or continue with counseling P: I strongly encourage counseling will reach out again in a few weeks for an update f/u with KASHIF chavez for endo I spent 30 minutes in the visit, with more than 50% of the total yruu-ox-jxee time of the visit in counseling / coordination of care. Scott Braden MD CNOV Observed: 11/08/2017 Status: COMPLETED Source: [place] 3:00 PM [facility] REPOSITORY Office Visit (PEDSWS) VAHID WANG ([id number]) 2000 M Date Time Provider Department 11/08/17 3:00 PM SCOTT BRADEN During your visit today, we recorded the following information about you: Temperature Pulse Respiration Blood pressure 98 degrees 104/minute 16/minute 132/80 Weight 61.2 kg Scott Braden MD 11/09/2017 8:56 PM Signed Patient presents with: follow up [facility] ER visit: DKA, depression/suicidal ideation, was seeing a counselor, stopped seeing them 1-2 weeks ago, states ANDquot;It was all due to something with someone and that is better nowANDquot;. Was on Prozac for a little while, ANDquot;that made it worseANDquot; reviewed ED record 10/26- made suicidal threat had prior SI in Aug- tried to overdose insulin Had been seeing counselor ANDjaelynot;Nivia; at [facility]- stopped seeing him, didn't seem to get along [facility] felt due to PTSD- Vahid did not think it was due to that. having trouble with ex girlfriend hospital started prozac in Aug- made worse. Not has gotten closure with girlfriend (she had been dating best friend). feeling much better much happier last few days seeing Dad and step-mom no longer feels depressed. has had high BG, last visit with KASHIF chavez 2 weeks ago. PAST MEDICAL HISTORY Diagnosis Date - Attention deficit disorder with hyperactivity(314.01) - Conduct disorder, childhood onset type - Foot fracture, right growth plate involved - Fracture of clavicle, right, closed 2015 - Generalized convulsive epilepsy without mention of intractable epilepsy - Other abnormal heart sounds normal echocardiogram. Holter monitor that - Right wrist fracture - Sensorineural hearing loss, unspecified - Type I (juvenile type) diabetes mellitus without mention of complication, not stated as uncontrolled 05/19 - Unspecified viral meningitis SH: will be moving to [place] in January Physical Exam: General: alert and active in no apparent distress, smiling Eyes: normal Ears: External ears normal. Canals clear. TM's normal. Nose/Sinuses : Nares normal. Septum midline. Mucosa normal. No drainage or sinus tenderness. Oropharynx : normal Neck: normal, supple, no adenopathy Cardiovascular : Regular Rate and Rhythm without murmurs or clicks Lungs: clear to auscultation Abdomen : Abdomen is soft, nontender, without organomegaly or masses. A: 16 with recent suicidal gesture but reports it as impulsive and reaction to relationship. HE denies current depression or SI He does not wish to take medicine or continue with counseling P: I strongly encourage counseling will reach out again in a few weeks for an update f/u with KASHIF chavez for endo I spent 30 minutes in the visit, with more than 50% of the total sxof-ee-ymtr time of the visit in counseling / coordination of care. Scott Braden MD Referring Provider: SELF [200] Allergies As of Date: 11/08/2017 (No Known Allergies) Date Reviewed: 11/08/2017 Reviewed by: Pedrito (Rn) ROMANA Lee - Fully Assessed Reason for Visit: follow up [facility] ER visit [Other] Cmt: DKA, depression/suicidal ideation, was seeing a counselor, stopped seeing them 1-2 weeks ago, states It was all due to something with someone and that is better now. Was on Prozac for a little while, states that made it worse Reason For Visit History Recorded Primary Visit Diagnosis:Reaction, adjustment, with depressed mood, brief [F43.21] Other Visit Diagnoses:Suicide attempt by inadequate means, initial encounter (HCC) [X83.8XXA] Type 1 diabetes mellitus with complication (HCC) [E10.8] Prescriptions as of 11/08/2017 Sig: INSULIN ASPART U-100 100 UNI* TAKE 1 UNIT FOR 7 GRAMS CARB * BLOOD SUGAR DIAGNOSTIC STRIPS USE TO TEST UP TO 12 TIMES A * PEN NEEDLE, DIABETIC 31 GAUGE* use as directed 10 times daily INSULIN GLARGINE (U-100) 100 * Inject 21 Units subcutaneousl* Patient taking differently: Inject 30 Units subcutaneousl* INSULIN SYRINGE-NEEDLE U-100 * use as directed LANCETS Use as instructed BROMPHENIRAMINE-PSEUDOEPHEDRI* Take 5-10 mL by mouth four ti* GLUCAGON (HUMAN RECOMBINANT) * use as directed, call if used Problem List As Of Date 11/08/2017 Noted Resolved Type 1 diabetes mellitus (HCC) [E10.9] INVALID FOR* Closed Buckle Fracture of Radius [FFB6268] INVALID FOR* ADD (Attention Deficit Disorder) [F98.8] INVALID FOR* Fatty liver disease, nonalcoholic [K76.0] INVALID FOR* Follow-up and Disposition History Recorded Questionnaire: PED PHQ 9 1. Feeling down, depressed, irritable or hopeless? -> 1 - Several Days 2. Little interest or pleasure in doing things? -> 0 - Not At All 3. Trouble falling asleep, staying asleep, or sleeping too much? -> 2 - More Than Half the Days 4. Poor appetite, weight loss, or overeating? -> 0 - Not At All 5. Feeling tired or little energy? -> 0 - Not At All 6. Feeling bad about yourself-or feeling that you are a failure or that you have let yourself or your family down? -> 1 - Several Days 7. Trouble concentrating on things like school work, reading or watching TV? -> 0 - No- t At All 8. Moving or speaking so slowly that other people could have notices? Or the opposite-being so fidgety or restless that you were moving around a lot more than usual? -> 0 - Not At All 9. Thoughts that you would be better off or of hurting yourself in some way? -> 0 - Not At All 10. In the past year have you felt depressed or sad most days, even if you felt okay sometimes? -> Yes 11. If you are experiencing any of the problems listed on this questionnaire, how difficult have these problems made it for you to do your work, take care of things at home or get along with other people? -> Extremely difficult 12. Has there been a time in the past month when you have had serious thoughts about ending your life? -> Yes 13. Have you ever tried to kill yourself or made a suicide attempt? -> Yes SCORE -> 4 Total Score: Depression Severity -> 01-04=Minimal depression Encounter Status:Closed by SCOTT BRADEN MD on 11/09/17 WOUND Observed: 10/27/2017 Status: F Source: [place] CULTURE/STAIN 7:30 AM [facility] REPOSITORY Sp. Request/Comment: - Swab Smear Result - Few Gram positive cocci in pairs --> ABNORMAL ALERT Few --> ABNORMAL ALERT Gram negative bacilli --> ABNORMAL ALERT Few --> ABNORMAL ALERT Gram positive bacilli --> ABNORMAL ALERT Few Polymorphonuclear leukocytes Culture Result - Many Actinomyces species --> ABNORMAL ALERT Antimicrobial susceptibility testing is not routinely performed on anaerobes from non sterile sites or in mixed cultures. Call lab within 72 hours to initiate work up if clinically indicated. --> ABNORMAL ALERT Rare --> ABNORMAL ALERT Coagulase negative Staphylococcus species --> ABNORMAL ALERT No further workup --> ABNORMAL A LERT The discrepancy between culture and gram stain result may be due to nonviable organisms or the presence of anaerobes. Performed By: #### WCUL #### [facility] [address] [place] [address] CNOV Observed: 10/27/2017 Status: COMPLETED Source: [place] 7:15 AM [facility] REPOSITORY Office Visit (WSTR) VAHID WANG ([id number]) 2000 M Date Time Provider Department 10/27/17 7:15 AM CHELO NAIK) WSTR During your visit today, we recorded the following information about you: Temperature Pulse Respiration Weight 96.9 degrees 104/minute 14/minute 61.2 kg Chelo Naik PA-C 10/27/2017 7:55 AM Signed Subjective HPI Pt presents with an abscess x 1 week. It started to drain this morning. The abscess is in pelvic area just above the groin. No fevers or chills. He is type one diabetic and checks sugars regularly. He had an abscess in Mar 2017 in the same area ad was treated with bactrim. The culture came back with staph epidermidis. Review of Systems Skin: Abscess in pelvic area. All other systems reviewed and are negative. PAST MEDICAL HISTORY Diagnosis Date - Attention deficit disorder with hyperactivity(314.01) - Conduct disorder, childhood onset type - Foot fracture, right growth plate involved - Fracture of clavicle, right, closed 2016 - Generalized convulsive epilepsy without mention of intractable epilepsy - Other abnormal heart sounds normal echocardiogram. Holter monitor that - Right wrist fracture - Sensorineural hearing loss, unspecified - Type I (juvenile type) diabetes mellitus without mention of complication, not stated as uncontrolled 05/19 - Unspecified viral meningitis Current Outpatient Prescriptions: [facility] (BROMFED DM) 2-30-10 mg/5 mL syrup Take 5-10 mL by mouth four times daily as needed. Disp: 120 mL Rfl: 0 glucagon, human recombinant, (GLUCAGON EMERGENCY KIT, HUMAN,) 1 mg injection use as directed, call if used Disp: 1 Each Rfl: 2 insulin aspart (NOVOLOG FLEXPEN) 100 unit/mL inpn TAKE 1 UNIT FOR 7 GRAMS CARB UP TO 100 UNITS DAILY Disp: 15 Pen Rfl: 11 blood sugar diagnostic (FREESTYLE LITE STRIPS) test strip USE TO TEST UP TO 12 TIMES A DAY DIRECTED Disp: 300 Strip Rfl: 11 Insulin [place], Disposable, (BD ULTRAFINE III MINI PEN) 31 gauge x 3/16ANDquot; ndle use as directed 10 times daily Disp: 300 Each Rfl: 11 insulin glargine (LANTUS) 100 unit/mL (3 mL) inpn Inject 21 Units subcutaneously daily at bedtime. (Patient taking differently: Inject 30 Units subcutaneously every morning.) Disp: 15 mL Rfl: 11 Insulin Syringe-Needle U-100 (BD INSULIN SYRINGE HALF UNIT) 0.3 mL 31 x 5/16ANDquot; syrg use as directed Disp: 100 Syringe Rfl: 11 Lancets lancets Use as instructed Disp: 300 Each Rfl: 11 No current facility-administered medications for this visit. PAST SURGICAL HISTORY Procedure Laterality Date - MYRINGOTOMY W TUBE,BILATERAL(2) FAMILY HISTORY Problem Relation Age of Onset - renal failure [OTHER] Mother - Thyroid Father - adhd [OTHER] Father - hearing loss: congenital [OTHER] Father - hypercholesterlemia [OTHER] Father - Heart Paternal Grandmother NE - irritable bowel syndrome [OTHER] Sister - migraine [OTHER] Sister - Cancer Paternal Grandfather possibly lung cancer - Hearing Loss Paternal Grandfather congenital - Hearing Loss Brother congenital - adhd [OTHER] Brother 15 - sleeping disorder [OTHER] Brother Social History Substance Use Topics - Smoking status: Passive Smoke Exposure - Never Smoker - Smokeless tobacco: Never Used Comment: Grandmother smokes outside of the home - Alcohol use No Pulse 104 Temp 36.1 ?C (96.9 ?F) (Tympanic) Resp 14 Wt 61.2 kg (135 lb) Objective Physical Exam Constitutional: He is oriented to person, place, and time and well-developed, well-nourished, and in no distress. HENT: Head: Normocephalic and atraumatic. Neck: Normal range of motion. Cardiovascular: Normal rate, regular rhythm and normal heart sounds. Pulmonary/Chest: Effort normal and breath sounds normal. Genitourinary: Genitourinary Comments: Exam of the pelvic region shows a 2 cm fluctuant area to the mons pubis area. No lymphangitic streaking. No drainage. No sign of fornieres gangrene. Neurological: He is alert and oriented to person, place, and time. Skin: Skin is warm and dry. Psychiatric: Affect and judgment normal. Nursing note and vitals reviewed. Procedure: Abscess I and D Site: Mons pubis Area was prepped with betadine in sterile fashion. 3 cc of 2% lidocaine used to anesthetize area. A 1 cm incision with 11 blade scalpel was made and small amount purulent drainage expressed. Loculation broken up with curved hemostats. Abscess irrigated with copious NS. Pt tolerated procedure well and no complications. During exam and procedure, Berna MILLER was present at all times. ASSESSMENT/PLAN: 1. Abscess of pubic region - ICD9: 682.2, ICD10: L02.219 - Abscess was I and D, culture obtained. Discussed continuing warm soaks. - Begin treatment with Trimethoprim-sulfamethozazole (Bactrim) 1 DS PO BID And keflex tid for 10 days. - No lymphangetic streaking, this was defined for patient to watch for and to seek medical care immediately if appears - Follow up for recheck in three days - WOUND CULTURE AND GRAM STAIN NELL Clements LPN 10/27/2017 7:21 AM Signed I was present during the patient's physical exam by Chelo STAHL. Berna Napoles LPN Referring Provider: SELF [200] Allergies As of Date: 10/27/2017 (No Known Allergies) Date Reviewed: 10/27/2017 Reviewed by: Berna Napoles LPN - Fully Assessed Reason for Visit: Abscess [1744] Cmt: Pelvic area X 1 week Primary Visit Diagnosis:Abscess of pubic region [L02.219] Order(s):sulfamethoxazole-trimethoprim (BACTRIM DS) 800-160 mg per tabletTake 1 tablet by mouth twice daily for 10 days.Disp: 20 tabletRfl: 0 cephALEXin (KEFLEX) 500 mg capsuleTake 1 capsule by mouth three times daily for 10 days.Disp: 30 capsuleRfl: 0 WOUND CULTURE AND GRAM STAIN [SQWCUL] Order #: [id number] Prescriptions as of 10/27/2017 Sig: SULFAMETHOXAZOLE 800 MG-TRIME* Take 1 tablet by mouth twice * CEPHALEXIN 500 MG CAPSULE Take 1 capsule by mouth three* BROMPHENIRAMINE-PSEUDOEPHEDRI* Take 5-10 mL by mouth four ti* GLUCAGON (HUMAN RECOMBINANT) * use as directed, call if used INSULIN ASPART U-100 100 UNI* TAKE 1 UNIT FOR 7 GRAMS CARB * BLOOD SUGAR DIAGNOSTIC STRIPS USE TO TEST UP TO 12 TIMES A * PEN NEEDLE, DIABETIC 31 GAUGE* use as directed 10 times daily INSULIN GLARGINE (U-100) 100 * Inject 21 Units subcutaneousl* Patient taking differently: Inject 30 Units subcutaneousl* INSULIN SYRINGE-NEEDLE U-100 * use as directed LANCETS Use as instructed Medication notes this encounter [id number] 2 MG-30 MG-10 MG/5 ML SYRUP >> Berna Napoles LPN 10/27/2017 7:06 AM >> BERNA NAPOLES LPN MonOct 27, 2017 7:06 AM Not taking Problem List As Of Date 10/27/2017 Noted Resolved Type 1 diabetes mellitus (HCC) [E10.9] INVALID FOR* Closed Buckle Fracture of Radius [RTH4944] INVALID FOR* ADD (Attention Deficit Disorder) [F98.8] INVALID FOR* Fatty liver disease, nonalcoholic [K76.0] INVALID FOR* Visit Notes: >> Berna Napoles LPN MonOct 27, 2017 7:20 AM Status: Signed I was present during the patient's physical exam by Chelo STAHL. Berna Napoles TOE PUNCHER Prescriptions ordered this encounter Disp Refills Start End SULFAMETHOXAZOLE 800 MG-TRIMETHOPRIM* 20 t* 0 10/27/2017 11/06/2017 Cmt: Ok to give generic equivalent Route: ORAL Sig: Take 1 tablet by mouth twice daily for 10 days. CEPHALEXIN 500 MG CAPSULE 30 c* 0 10/27/2017 11/06/2017 Route: ORAL Sig: Take 1 capsule by mouth three times daily for 10 days. Encounter Status:Closed by CHELO NAIK PA-C on 10/27/17 PROGRESS Observed: 10/27/2017 Status: COMPLETED Source: [place] 7:11 AM [facility] REPOSITORY [facility] ID: [id number] Author: Chelo Naik (Pa) Service: (none) Author Type: Physician Processing Supervisor Type: Progress Notes Filed: 10/27/2017 7:55 AM Note Text: Subjective HPI Pt presents with an abscess x 1 week. It started to drain this morning. The abscess is in pelvic area just above the groin. No fevers or chills. He is type one diabetic and checks sugars regularly. He had an abscess in Mar 2017 in the same area ad was treated with bactrim. The culture came back with staph epidermidis. Review of Systems Skin: Abscess in pelvic area. All other systems reviewed and are negative. PAST MEDICAL HISTORY Diagnosis Date - Attention deficit disorder with hyperactivity(314.01) - Conduct disorder, childhood onset type - Foot fracture, right growth plate involved - Fracture of clavicle, right, closed 2015 - Generalized convulsive epilepsy without mention of intractable epilepsy - Other abnormal heart sounds normal echocardiogram. Holter monitor that - Right wrist fracture - Sensorineural hearing loss, unspecified - Type I (juvenile type) diabetes mellitus without mention of complication, not stated as uncontrolled 05/19 - Unspecified viral meningitis Current Outpatient Prescriptions: Sxqirycusqowgag-Vaugurqbm-ZS (BROMFED DM) 2-30-10 mg/5 mL syrup Take 5-10 mL by mouth four times daily as needed. Disp: 120 mL Rfl: 0 glucagon, human recombinant, (GLUCAGON EMERGENCY KIT, HUMAN,) 1 mg injection use as directed, call if used Disp: 1 Each Rfl: 2 insulin aspart (NOVOLOG FLEXPEN) 100 unit/mL inpn TAKE 1 UNIT FOR 7 GRAMS CARB UP TO 100 UNITS DAILY Disp: 15 Pen Rfl: 11 blood sugar diagnostic (FREESTYLE LITE STRIPS) test strip USE TO TEST UP TO 12 TIMES A DAY DIRECTED Disp: 300 Strip Rfl: 11 Insulin [place], Disposable, (BD ULTRAFINE III MINI PEN) 31 gauge x 3/16 ndle use as directed 10 times daily Disp: 300 Each Rfl: 11 insulin glargine (LANTUS) 100 unit/mL (3 mL) inpn Inject 21 Units subcutaneously daily at bedtime. (Patient taking differently: Inject 30 Units subcutaneously every morning.) Disp: 15 mL Rfl: 11 Insulin Syringe-Needle U-100 (BD INSULIN SYRINGE HALF UNIT) 0.3 mL 31 x 5/16 syrg use as directed Disp: 100 Syringe Rfl: 11 Lancets lancets Use as instructed Disp: 300 Each Rfl: 11 No current facility-administered medications for this visit. PAST SURGICAL HISTORY Procedure Laterality Date - MYRINGOTOMY W TUBE,BILATERAL(2) FAMILY HISTORY Problem Relation Age of Onset - renal failure [OTHER] Mother - Thyroid Father - adhd [OTHER] Father - hearing loss: congenital [OTHER] Father - hypercholesterlemia [OTHER] Father - Heart Paternal Grandmother NE - irritable bowel syndrome [OTHER] Sister - migraine [OTHER] Sister - Cancer Paternal Grandfather possibly lung cancer - Hearing Loss Paternal Grandfather congenital - Hearing Loss Brother congenital - adhd [OTHER] Brother 15 - sleeping disorder [OTHER] Brother Social History Substance Use Topics - Smoking status: Passive Smoke Exposure - Never Smoker - Smokeless tobacco: Never Used Comment: Grandmother smokes outside of the home - Alcohol use No Pulse 104 Temp 36.1 ?C (96.9 ?F) (Tympanic) Resp 14 Wt 61.2 kg (135 lb) Objective Physical Exam Constitutional: He is oriented to person, place, and time and well-developed, well-nourished, and in no distress. HENT: Head: Normocephalic and atraumatic. Neck: Normal range of motion. Cardiovascular: Normal rate, regular rhythm and normal heart sounds. Pulmonary/Chest: Effort normal and breath sounds normal. Genitourinary: Genitourinary Comments: Exam of the pelvic region shows a 2 cm fluctuant area to the mons pubis area. No lymphangitic streaking. No drainage. No sign of fornieres gangrene. Neurological: He is alert and oriented to person, place, and time. Skin: Skin is warm and dry. Psychiatric: Affect and judgment normal. Nursing note and vitals reviewed. Procedure: Abscess I and D Site: Mons pubis Area was prepped with betadine in sterile fashion. 3 cc of 2% lidocaine used to anesthetize area. A 1 cm incision with 11 blade scalpel was made and small amount purulent drainage expressed. Loculation broken up with curved hemostats. Abscess irrigated with copious NS. Pt tolerated procedure well and no complications. During exam and procedure, Berna TOE PUNCHER was present at all times. ASSESSMENT/PLAN: 1. Abscess of pubic region - ICD9: 682.2, ICD10: L02.219 - Abscess was I and D, culture obtained. Discussed continuing warm soaks. - Begin treatment with Trimethoprim-sulfamethozazole (Bactrim) 1 DS PO BID And keflex tid for 10 days. - No lymphangetic streaking, this was defined for patient to watch for and to seek medical care immediately if appears - Follow up for recheck in three days - WOUND CULTURE AND GRAM STAIN Chelo Naik PA-C BEDSIDE GLUCOSE Collected: 10/26/2017 Status: F Source: [place] 5:01 PM [facility] REPOSITORY TYPE CODE TESTS RESULT OUT OF REFERENCE UNITS RANGE LAB L501.080 70-110 mg/dL High BEDSIDE GLU 348 Result Comment: MANAGEMENT OF PATIENT CARE PER NURSING PROTOCOL Performed By: #### L501.080 #### [facility] Point of Care [address] [place] [address] DISCHARGE SUMMARY Observed: 10/26/2017 Status: F Source: [place] 3:37 PM [facility] REPOSITORY [facility] Medical Records Department [address] [place] [address] Discharge Summary 10/26/17 1529 MR#: [id number] Acct: [id number] Name: VAHID WANG Rep #: [id number] : 2000 16 From: Pranay Solitairo MD PCP: Scott Braden MD Status: ADM IN Y Location: ICU ICU04-1 Discharge Date and Diagnosis - Problem List Patient Problems: Active and Suspected Problems (Last Reviewed 10/17/17 @ 15:25 by Amanda Wilkinson) Suicidal ideations (Acute) DKA, type 1, not at goal (Acute) Elevated blood sugar level (Acute) Excessive thirst (Acute) Urine ketones (Acute) DKA (diabetic ketoacidoses) (Acute) Date of Admission: 10/26/17 Date of Discharge: 10/26/17 - Primary Discharge Diagnosis Active and Suspected Problems (Last Reviewed 10/17/17 @ 15:25 by Amanda Wilkinson) Suicidal ideations (Acute) DKA, type 1, not at goal (Acute) Elevated blood sugar level (Acute) Excessive thirst (Acute) Urine ketones (Acute) DKA (diabetic ketoacidoses) (Acute) - Secondary Discharge Diagnosis Chronic Problems (Last Reviewed 10/17/17 @ 15:25 by Amanda Wilkinson) DM I (diabetes mellitus, type I), uncontrolled (Chronic) BG varied . Does have a pattern of BG elevated after breakfast and dinner and at bedtime. Will have him specifically check 2 hours after supper Labs reviewed with patient Will increase basaglar to 20 twice daily but he needs to check 2 hours after each meal so that he can improve meal coverage. Hospital Course and Treatment Imaging Results: Clinical Impression(s) from Imaging Studies Wrist X-Ray 10/25/17 23:25 IMPRESSION: There is soft tissue swelling. There is no acute displaced fracture or dislocation. Electronically Signed: Jayashree Vicente MD at 0:08 EDT , Service support , Operations: None Summary of Care Provided: Patient is an 16-year-old gentleman with past medical history significant for diabetes mellitus type 1 presented with elevated blood glucose associated with nausea vomiting and progressive weakness assessment of diabetic ketoacidosis made and admission admitted to the intensive care unit for further management 1. Diabetic ketoacidosis: admitted to the intensive care unit managed with aggressive IV fluid resuscitation and IV insulin with correction of electrolyte abnormalities; patient DKA did resolve 2. Depression with suicidal ideation patient is on SSRI was placed to the crisis team for the patient to be evaluated. Patient however denied to the crisis team of being suicidal. He stated that he was acting up to get attention from his grandmother. Patient was discharged home with an appointment to the outpatient counseling center a day after his admission i.e. 10/27/2017 3. GERD on PPI 4. Hypokalemia corrected per protocol 5. DVT prophylaxis; Lovenox Discharge Diet: 1800 Calorie Control Diet Discharge Activity: Return to Normal Activity Home Medications: Medications to take at Discharge insulin aspart U-100 100 unit/mL subcutaneous pen See Label Instructions SC QDAY 08/10/17 Fluoxetine [Prozac] 20 mg PO DAILY #30 cap 09/13/17 Insulin Glargine,Hum.rec.anlog [Basaglar Kwikpen U-100] 19 unit SQ BID 10/26/17 Primary Care Physician: Scott Braden MD [Primary Care Provider] - Please follow up with your Primary Care Physician in: in 1- 2 weeks Disposition: Home Minutes spent on discharge:: 45 Patient Condition:: Stable Medical Necessity - Tobacco Use Smoking Status: Never smoker Tobacco Use: Non-smoker Meaningful Use Info Meaningful Use Diagnoses (Choose all that apply): None applicable Code Visit Inpatient E AND M: 12257 Disch Hosp 10/26/17 1537 <Electronically signed by Pranay Solitario MD> Date Pranay Solitario MD Cosigner Signature (if applicable): Date CC: Scott Braden MD; Pranay Solitario MD Signed DISCHARGE INSTRUCTION Observed: 10/26/2017 Status: F Source: [place] 3:29 PM [facility] REPOSITORY [facility] Medical Records Department [address] [place] [address] Instructions for Home/Discharge Instructions 10/26/17 1527 MR#: [id number] Acct: [id number] Name: VAHID WANG Rep #: [id number] : 2000 16 From: Pranay Solitario MD PCP: Scott Braden MD Status: ADM IN - Discharge Diagnoses Current Active Problems: Current Active and Chronic Problems (Last Reviewed 10/17/17 @ 15:25 by Amanda Wilkinson) Suicidal ideations (Acute) You will use the following diet at home:: Calorie/Carbohydrate Controlled (specify 1200, 1400, etc) - 1800 Discharge Activity: Return to Normal Activity Allergies/Adverse Reactions: Allergies No Known Allergies Allergy (Verified 10/25/17 22:39) Medications to take at Discharge insulin aspart U-100 100 unit/mL subcutaneous pen See Label Instructions SC QDAY 08/10/17 Fluoxetine [Prozac] 20 mg PO DAILY #30 cap 09/13/17 Insulin Glargine,Hum.rec.anlog [Basaglar Kwikpen U-100] 19 unit SQ BID 10/26/17 Primary Care Physician: Scott Braden MD [Primary Care Provider] - Please follow up with your Primary Care Physician in: in 1- 2 weeks Proposed Discharge Date: 10/26/17 10/26/17 1529 <Electronically signed by Pranay Solitario MD> Date Pranay Solitario MD CC: Scott Braden MD BEDSIDE GLUCOSE Collected: 10/26/2017 Status: F Source: [place] 11:22 AM [facility] REPOSITORY TYPE CODE TESTS RESULT OUT OF REFERENCE UNITS RANGE LAB L501.080 70-110 mg/dL High BEDSIDE GLU 322 Result Comment: MANAGEMENT OF PATIENT CARE PER NURSING PROTOCOL Performed By: #### L501.080 #### [facility] Point of Care [facility] [place] [address] URINALYSIS, COMPLETE Collected: 10/26/2017 Status: F Source: [place] 11:00 AM [facility] REPOSITORY Order Comment: How was Urine Obtained? PRESSER MACHINE TO SPECIFY TYPE CODE TESTS RESULT OUT OF RANGE REFERENCE UNITS LAB L400.3000 Yellow COLOR Normal Yellow LAB L400.3050 Clear Normal CLARITY Clear LAB L400.3200 Normal mg/dl High GLUCOSE, UR 1000 LAB L400.3300 Negative mg/dL Normal BILIRUBIN URINE Negative LAB L400.3400 Negative mg/dl High 15 KETONE UR LAB L400.3465 1.002-1.030 Normal SP.GR. DIPSTX 1.015 LAB L400.3550 5.0 - 8.0 pH UR Normal 6.0 LAB L400.3600 Negative mg/dl High PROT 15 DIPSTX LAB L400.3700 Normal mg/dl Normal UROBILI Normal LAB L400.3750 Negative Normal NITRITE UR Negative LAB L400.3780 Negative /ul Normal OCCULT BLOOD-UR Negative LAB L400.3800 Negative /ul LEUK Normal ESTERASE Negative LAB L400.4050 0-5 /hpf WBC 0 Normal SEEN LAB L400.4100 0-5 /hpf 0 Normal RBC-UA SEEN LAB L400.4150 0-5 /hpf SQUAM 0 Normal EPI SEEN LAB L400.4300 None Seen /hpf Normal BACTERIA RARE LAB L400.4350 <or=2+ /hpf 0 Normal MUCUS, URINE SEEN Performed By: #### L400.0001 #### [facility] [address] [place], [address] Observed: 10/26/2017 Status: F Source: [place] CULTURE, UR[place] 11:00 AM [facility] REPOSITORY Urine Culture Culture exhibits no growth. Performed By: #### M100.0650 #### [facility] [address] [place], [address] BEDSIDE GLUCOSE Collected: 10/26/2017 Status: F Source: [place] 7:41 AM [facility] REPOSITORY TYPE CODE TESTS RESULT OUT OF REFERENCE UNITS RANGE LAB L501.080 70-110 mg/dL High BEDSIDE GLU 167 Result Comment: MANAGEMENT OF PATIENT CARE PER NURSING PROTOCOL Performed By: #### L501.080 #### [facility] Point of Care [address] [place] [address] BEDSIDE GLUCOSE Collected: 10/26/2017 Status: F Source: [place] 6:20 AM [facility] REPOSITORY TYPE CODE TESTS RESULT OUT OF REFERENCE UNITS RANGE LAB L501.080 70-110 mg/dL High BEDSIDE GLU 134 Result Comment: MANAGEMENT OF PATIENT CARE PER NURSING PROTOCOL Performed By: #### L501.080 #### [facility] Point of Care [address] [place] [address] BASIC METABOLIC Collected: 10/26/2017 Status: F Source: [place] PROFILE (BMP) 5:20 AM [facility] REPOSITORY TYPE CODE TESTS RESULT OUT OF RANGE REFERENCE UNITS LAB L501.0100 74-106 mg/dL High GLU 134 Result Comment: Fasting Glucose result greater than or equal to 126 mg/dL suggests DIABETES MELLITUS per A.D.A. criteria. Please note revised GLUCOSE reference range effective 2017. LAB L501.1000 7-18 mg/dL Normal BUN 11 LAB L501.1100 0.70-1.30 mg/dL Low CREAT,SERUM 0.62 Result Comment: The validity of the calculated GFR AND GFRAA in patients over 70 years has not been determined. Clinical correlation is essential. LAB L501.1110 >60 mL/min Normal EST GFR 177 Result Comment: Non- GFR Calc LAB L501.1115 >60 mL/min Normal EST GFR - AA 214 Result Comment: GFR Calc LAB L501.1255 ml/min Normal Estimated CRCL 161.52 LAB L501.1300 10-20 RATIO BUN/CRE Normal 17.7 LAB L501.2200 8.5-10 mg/dL Low .1 CA 7.6 LAB L501.5300 136-14 mmol/L 5 NA Normal 143 LAB L501.5600 3.5-5. mmol/L 1 K Normal 3.6 LAB L501.5900 98-107 mmol/L High CL 110 LAB L501.6100 21.0-3 mmol/L 2.0 CO2 Normal 26.0 LAB L501.6200 5-15 GAP Normal 7 Performed By: #### L500.2500 #### [facility] [place], [address] CBC-COMPLETE BLOOD CNT Collected: 10/26/2017 Status: F Source: [place] NO DIFF 5:20 AM [facility] REPOSITORY TYPE CODE TESTS RESULT OUT OF RANGE REFERENCE UNITS LAB L100.1000 4.4-11.0 K/mm3 Normal WBC 8.4 LAB L100.1200 4.6-6.2 M/mm3 Low RBC 4.51 LAB L100.1300 13.0-16.5 g/dl Normal HGB 13.9 LAB L100.1400 40-54 % Normal HCT 40.6 LAB L100.1500 80-94 fL Normal MCV 90.0 LAB L100.1600 27.0-32.0 pg Normal MCH 30.8 LAB L100.1700 32-36 g/gl Normal MCHC 34.2 LAB L100.1810 11.6-14.6 % Normal RDW CV 12.7 LAB L100.1820 35.1-43.9 fl Normal RDW SD 41.0 LAB L100.1900 150-450 K/mm3 Normal PLT 261 LAB L100.2000 6.2-12.0 fl Normal MPV 9.5 Performed By: #### L100.0500 #### [facility] [address] [facility] [address] BEDSIDE GLUCOSE Collected: 10/26/2017 Status: F Source: [place] 5:15 AM [facility] REPOSITORY TYPE CODE TESTS RESULT OUT OF REFERENCE UNITS RANGE LAB L501.080 70-110 mg/dL High BEDSIDE GLU 132 Result Comment: MANAGEMENT OF PATIENT CARE PER NURSING PROTOCOL Performed By: #### L501.080 #### [facility] Point of Care [address] [place] [address] BEDSIDE GLUCOSE Collected: 10/26/2017 Status: F Source: [place] 4:18 AM [facility] REPOSITORY TYPE CODE TESTS RESULT OUT OF REFERENCE UNITS RANGE LAB L501.080 70-110 mg/dL High BEDSIDE GLU 124 Result Comment: MANAGEMENT OF PATIENT CARE PER NURSING PROTOCOL Performed By: #### L501.080 #### [facility] Point of Care [address] [place] [address] BEDSIDE GLUCOSE Collected: 10/26/2017 Status: F Source: [place] 3:10 AM [facility] REPOSITORY TYPE CODE TESTS RESULT OUT OF REFERENCE UNITS RANGE LAB L501.080 70-110 mg/dL High BEDSIDE GLU 130 Result Comment: MANAGEMENT OF PATIENT CARE PER NURSING PROTOCOL Performed By: #### L501.080 #### [facility] Point of Care [address] [place] [address] BEDSIDE GLUCOSE Collected: 10/26/2017 Status: F Source: [place] 2:06 AM [facility] REPOSITORY TYPE CODE TESTS RESULT OUT OF REFERENCE UNITS RANGE LAB L501.080 70-110 mg/dL High BEDSIDE GLU 191 Result Comment: MANAGEMENT OF PATIENT CARE PER NURSING PROTOCOL Performed By: #### L501.080 #### [facility] Point of Care [address] [place] [address] EMERGENCY DEPARTMENT Observed: 10/26/2017 Status: F Source: [place] SUMMARY 1:41 AM [facility] REPOSITORY [facility] Medical Records Department [address] [place] [address] Emergency Department Summary 10/26/17 0042 MR#: [id number] Acct: [id number] Name: VAHID WANG Rep #: [id number] : 2000 16 From: John Rodriguez MD PCP: Scott Braden MD Status: ADM IN - ER Visit Summary Date of Service: 10/26/17 Chief Complaint: Suicidal ideation History of Present Illness: The patient is a [address] Braden and KASHIF chavez. Reports that he is having issues with his girlfriend and has had suicidal thoughts. Per the police patient was threatening to jump off of a randee. He struggled with officers on the way in the emergency department. Grandmother also reports patient has expressed suicidal thoughts to her. Patient has a history of diabetes mellitus and reports that he took 19 units of Lantus at 9 PM and that his blood sugar was in the 270s on the way to the emergency department. Physical Examination: Vitals: Stable. Afebrile. General: Well-nourished and well-developed. Head: Normocephalic atraumatic. Neck: Supple, no lymphadenopathy. No JVD. Nontender. Cardiovascular: Regular rate and rhythm. No murmurs. Respiratory: No respiratory distress. Clear to auscultation bilaterally. Abdominal: Soft, nontender, nondistended, normal bowel sounds. No guarding, rebound, or peritoneal signs. Back: Nontender. Extremities: Moderate tenderness palpation over his left wrist, no edema. Skin: Normal color, no rash. Neurologic: Alert and oriented 3. Cranial nerves II through XII are intact. Normal strength and sensation. Mental status exam: Patient appears their stated age. Good posture and grooming. Good eye contact. Normal rate, volume, and latency of speech. No homicidal ideation. No auditory or visual hallucinations. Flow of thought is logical. Insight and judgment is fair. Test Results: Left wrist x-ray shows no acute disease. CBC is marked for hemoglobin of 17.6. Chem-7 is more for CO2 of 19, glucose of 354, and anion gap of 19. He has small serum ketones. Venous blood gas shows pH is 7.4. Blood alcohol level is negative. Emergency Department Course and Treatment: Patient was given 2 L of normal saline and started on insulin drip. He was discussed with the counseling center who have seen him and feel that a pink slip. Treatment Plan: The patient will be admitted to the hospital for medical stabilization and then will require transfer to a psychiatric facility for further treatment of his depression and suicidal ideation. Disposition: Admitted in improved condition. Impression: 1. Suicidal ideation. 2. DKA. 3. Critical care time 30 minutes. This note was generated with [employer]el dictation software. It may contain incorrect words, spelling, and punctuation that were not noted in review of the chart prior to signing ED Disposition - Plan for ED Patient: Chief Complaint: Suicidal What to do if you have Problems For any increased pain, shortness of breath, bleeding, nausea or vomiting, chest pain, or any unexpected problems, contact your Primary Care Provider. Call [facility] ([phone]) or report to the closest Emergency Room. Call 911 if necessary. 10/26/17 0141 <Electronically signed by John Rodriguez MD> Date John Rodriguez MD Cosigner Signature (If Indicated): Date CC: Scott Braden MD BASIC METABOLIC Collected: 10/26/2017 Status: F Source: [place] PROFILE (BMP) 1:40 AM [facility] REPOSITORY TYPE CODE TESTS RESULT OUT OF RANGE REFERENCE UNITS LAB L501.0100 74-106 mg/dL High GLU 220 Result Comment: Glucose result greater than or equal to 200 mg/dL suggests DIABETES MELLITUS per A.D.A. criteria. Please note revised GLUCOSE reference range effective 2017. LAB L501.1000 7-18 mg/dL Normal BUN 10 LAB L501.1100 0.70-1.30 mg/dL Low CREAT,SERUM 0.64 Result Comment: The validity of the calculated GFR AND GFRAA in patients over 70 years has not been determined. Clinical correlation is essential. LAB L501.1110 >60 mL/min Normal EST GFR 172 Result Comment: Non- GFR Calc LAB L501.1115 >60 mL/min Normal EST GFR - AA 208 Result Comment: GFR Calc LAB L501.1255 ml/min Normal Estimated CRCL 156.47 LAB L501.1300 10-20 RATIO BUN/CRE Normal 15.6 LAB L501.2200 8.5-10 mg/dL Low .1 CA 7.0 LAB L501.5300 136-14 mmol/L 5 NA Normal 143 LAB L501.5600 3.5-5. mmol/L Low 1 K 2.9 LAB L501.5900 98-107 mmol/L High CL 110 LAB L501.6100 21.0-3 mmol/L 2.0 CO2 Normal 22.0 LAB L501.6200 5-15 GAP Normal 11 Performed By: #### L500.2500, L500.3400, L501.2300, L501.5200 #### [facility] [address] [place], [address] LIVER PROFILE Collected: 10/26/2017 Status: F Source: [place] 1:40 AM [facility] REPOSITORY TYPE CODE TESTS RESULT OUT OF RANGE REFERENCE UNITS LAB L501.1500 6.4-8.2 g/dL Low T PROT 5.2 LAB L501.1800 3.2-5.0 g/dL Low ALB 2.8 LAB L501.1950 2.2-4.2 g/dL Normal GLOB 2.4 LAB L501.4100 15-37 U/L Normal AST 35 LAB L501.4305 52-171 U/L Normal ALK P 100 LAB L501.4405 16-61 U/L High ALT 69 Result Comment: Please note revised ALT reference range effective 2017. LAB L501.4600 0.20-1.00 mg/dL Normal T BILI 0.50 LAB L501.4700 0.00-0.30 mg/dL Normal D BILI 0.11 Performed By: #### L500.2500, L500.3400, L501.2300, L501.5200 #### [facility] [address] [place], [address] PHOSPHORUS Collected: 10/26/2017 Status: F Source: [place] 1:40 AM [facility] REPOSITORY TYPE CODE TESTS RESULT OUT OF RANGE REFERENCE UNITS LAB L501.2300 2.5-4.9 mg/dL Low PHOS 2.3 Performed By: #### L500.2500, L500.3400, L501.2300, L501.5200 #### [facility] [address] [place], [address] MAGNESIUM Collected: 10/26/2017 Status: F Source: [place] 1:40 AM [facility] REPOSITORY TYPE CODE TESTS RESULT OUT OF RANGE REFERENCE UNITS LAB L501.5200 1.6-2.6 mg/dL Normal MG 1.7 Result Comment: Please note revised Magnesium reference range effective 2017. Performed By: #### L500.2500, L500.3400, L501.2300, L501.5200 #### [facility] [place], [address] M R STAPH AUREUS Collected: 10/26/2017 Status: F Source: RIP DNA BY PCR 1:30 AM [facility] REPOSITORY TYPE CODE TESTS RESULT OUT OF RANGE REFERENCE UNITS LAB L8200.1100 Negative Normal MRSA Negative RESULT Performed By: #### L8200.1000 #### [facility] [address] [place], [address] BEDSIDE GLUCOSE Collected: 10/26/2017 Status: F Source: RIP 1:01 AM [facility] REPOSITORY TYPE CODE TESTS RESULT OUT OF REFERENCE UNITS RANGE LAB L501.080 70-110 mg/dL High BEDSIDE GLU 300 Result Comment: MANAGEMENT OF PATIENT CARE PER NURSING PROTOCOL Performed By: #### L501.080 #### [facility] Point of Care [address] [place] [address] HISTORY AND PHYSICAL Observed: 10/26/2017 Status: F Source: [place] EXAM 12:53 AM [facility] REPOSITORY [facility] Medical Records Department [address] [place] [address] History and Physical 10/26/17 0010 MR#: [id number] Acct: [id number] Name: VAHID WANG Rep #: [id number] : 2000 16 From: Mei Polk PCP: Scott Braden MD Status: ADM IN Y Location: ICU ICU04-1 Problem List (1) DM I (diabetes mellitus, type I), uncontrolled Status: Chronic Qualifiers: Diabetes mellitus complication status: with unspecified complications Qualified Code(s): E10.8 - Type 1 diabetes mellitus with unspecified complications; E10.65 - Type 1 diabetes mellitus with hyperglycemia Comment: BG varied . Does have a pattern of BG elevated after breakfast and dinner and at bedtime. Will have him specifically check 2 hours after supper Labs reviewed with patient Will increase basaglar to 20 twice daily but he needs to check 2 hours after each meal so that he can improve meal coverage. (2) Elevated blood sugar level Status: Acute (3) DKA (diabetic ketoacidoses) Status: Acute Qualifiers: Diabetes mellitus type: type 1 Diabetes mellitus complication detail: without coma Qualified Code(s): E10.10 - Type 1 diabetes mellitus with ketoacidosis without coma (4) Suicidal ideations Status: Acute History of Present Illness Date of Admission: 10/26/17 Chief Complaint: Suicidal ideations, not taking his insulin. The patient is a 16 y/o M w/ PMHx: Diabetes mellitus type I, Prior Noted Elevated Liver Enzymes of unclear etiology, Anxiety and Depression who presents to the [facility] ED on 10/26/17 with history of altercation with police while threatening to jump of a randee, although upon ED presentation denied any suicidal ideations. The crisis center talked with the patient's grandmother and she noted ongoing discussions with suicidal thoughts. He has been admitted for psychiatric treatment for severe depression and suicidal ideations x 6 he notes. Denies ever having had ECT. Notes ongoing L wrist discomfort secondary to altercation with police. Upon ED presentation he was in handcuffs. In the ED work-up included T 98.6, HR 115, BP 126/106, RR 24, 100% on RA, CBC w/ WBC 9.6, Hgb 17.6, Plts 384 without shift, VBG w/ pH 7.4, pO2 58, BMP w/ CO2 19, AG 19, glucose 354, pending UDS, EtOH 16, small acetone, plain film L wrist w/ soft tissue swelling, no fracture or dislocation. In the ED patient administered NS and per discussion started on insulin drip. ED also obtained pink slip prior to admission. Past Medical History Past Medical History (Chronic Problems): Chronic Problems (Last Reviewed 10/17/17 @ 15:25 by Amanda Wilkinson) DM I (diabetes mellitus, type I), uncontrolled (Chronic) BG varied . Does have a pattern of BG elevated after breakfast and dinner and at bedtime. Will have him specifically check 2 hours after supper Labs reviewed with patient Will increase basaglar to 20 twice daily but he needs to check 2 hours after each meal so that he can improve meal coverage. Allergies No Known Allergies Allergy (Verified 10/25/17 22:39) Home Medications: Ambulatory Orders Medication Instructions Recorded insulin aspart U-100 100 unit/mL See Label Instructions SC QDAY 08/10/17 Surgical History: - - BL ear tubes. Psychiatric History: Anxiety, Depression, Prior suicide attempt Lives: With Family - Lives with his grandmother Smoking Status: Never smoker Tobacco Use: Non-smoker Alcohol: None Drugs: None - *Family History Maternal History Items: Heart Disease, Renal Disease Paternal History Items: Heart Disease, - - Paternal family males w/ frequent hearing disorder. Review of Systems Constitutional: Reports: Malaise, Fatigue. Denies: Chills, Fever, Weight Change HEENT: Denies: Head Aches, Sinus Congestion, Sinus Drainage Cardiovascular: Denies: Chest Pain, Palpitations Respiratory: Denies: Cough, Shortness of breath at rest, Sputum production Gastrointestinal: Denies: Abdominal Pain, Nausea, Vomiting Genitourinary: Denies: Dysuria Musculoskeletal: Reports: Arm Pain, Hand Pain, Joint Pain. Denies: Joint Tenderness Skin: Denies: Rash, Wounds Neurological: Denies: Numbness, Tingling, Focal weakness Psychiatric: Reports: Anxiety, Depression, Suicidal Ideations. Denies: Homicidal Ideations Hematologic/ Lymphatic: Denies: Easy Bruising, Easy Bleeding VTE Information - Inpt Only VTE Present on Admission: No VTE Mechan Device Prophylaxis: SCD's VTE Pharm Prophylaxis ordered?: Yes Patient Problems: Active and Suspected Problems (Last Reviewed 10/17/17 @ 15:25 by Amanda Wilkinson) Suicidal ideations (Acute) Subjective: Seated upright in the ED bed, fatigued appearance, flat affect. Objective: Physical Examination: General: awake, alert, oriented x 3 and cooperative, seated upright in the ED bed, currently calm, flat affect. Skin: normal color, turgor, no icterus, cyanosis. HEENT: AT/NC, EOMI, PERRLA, dry MM, no carotid bruits or JVD noted. Lungs: CTA bilaterally, moderate effort, mild decrease BL bases, no rales, ronchi or wheezing. Heart: Regular rate and rhythm; no gallop, rub audible. Abdomen: soft, thin habitus, NTTP, ND, normal BS, +HM. Extremities: no cyanosis, clubbing, + LUE wrist TTP, mild edema. Neurological: patient awake, alert, oriented x 3; cognitive function intact; pupils equally reactive to light and accomodation; cranial nerves II-XII grossly normal, moving all 4 extremities except LUE w/ pain as noted, strength mostly intact. Psychiatric: affect appears currently calm, flat, admits to depression and suicidal ideations. - Physical Exam Vital Signs Temp Pulse Resp BP Pulse Ox 98.6 F 115 H 16 126/106 H 110 10/25/17 22:37 10/25/17 22:37 10/25/17 23:36 10/25/17 22:37 10/25/17 22:37 Weight: 129 lb 6.581 oz Body Mass Index (BMI) 21.5 Finger Stick Blood Glucose 396 Laboratory Tests Past 24 Hrs WBC 9.6 WBC RBC Hgb Hct MCV MCH Assessment/Plan Active and Suspected Problems (Last Reviewed 10/17/17 @ 15:25 by Amanda Wilkinson) Suicidal ideations (Acute) The patient is a 16 y/o M w/ PMHx: Diabetes mellitus type I, Prior Noted Elevated Liver Enzymes of unclear etiology, Anxiety and Depression who presents to the [facility] ED on 10/26/17 with history of altercation with police while threatening to jump of a randee, although upon ED presentation denied any suicidal ideations. (1) DKA w/ Diabetes mellitus type I: Patient started on an insulin drip in the ED. Will admit to the ICU per protocol, continue on insulin drip, check serial K+, glucose w/ IVF changes pending these levels, serial chemistry, obtain mag, phos daily w/ repletion as needed, transition to home SC regimen when gap closed w/ overlap on drip, nutrition consultation. Encouraged diet and insulin regimen compliance. (2) Suicidal Ideations, Anxiety and Severe Major Depression: Ongoing per Crisis discussions with his grandmother and also admitted to police but denying upon ED presentation. Will maintain as noted in the ICU, continue medical treatment for DKA, maintain on suicide precautions, PRN sedative regimen/restraints if attempts to leave given risk of harming himself, once DKA resolved re-consult Crisis to transition to Psychiatric facility for treatment. Per review of history may benefit from consideration of ECT with therapy and medication combination. (3) Hx Elevated Liver Enzymes: Not obtained upon presentation, will obtain hepatic profile. 07/18/17 liver US obtained during DKA admission with elevated enzymes at that time with noted elongated appearance of the right hepatic lobe suggestive of a Isaias's lobe, enlarged liver, mild fatty infiltration. (4) GERD: Famotidine. (5) Left Wrist Sprain, Strain: s/p altercation, plain film without acute findings, icing, elevation, PRN tylenol, toradol IV x 1. (6) DVT Prophylaxis: SCDs, lovenox. Code Visit Inpatient E AND M: [id number] Init Hosp L3 10/26/17 0053 <Electronically signed by Mei Polk > Date Mei Polk Cosigner Signature: Date (if applicable) CC: Scott Braden MD; Mei Polk Signed URINE DRUG SCREEN Collected: 10/26/2017 Status: F Source: [place] (VISTA) 12:05 AM [facility] REPOSITORY TYPE CODE TESTS RESULT OUT OF RANGE REFERENCE UNITS LAB L505.0075 TO BE Normal CONFIRMED Result Comment: CONFIRMATORY TESTING FOR ALL POSITIVE URINE DRUG SCREEN RESULTS WILL ONLY BE SENT OUT UPON PHYSICIAN ORDER. VISTA Urine Drug Screen methods provide only preliminary analytical test results. A more specific alternate chemical method must be used in order to obtain a confirmed analytical result. Gas chromatography/mass spectrometery (GC/MS) is the preferred confirmatory method. Clinical consideration and professional judgement should be applied to any drug of abuse test result, particularly when preliminary positive results are used. URINE TCA TESTING MUST BE ORDERED SEPARATELY. USE TEST MNEMONIC: [facility] LAB L505.5005 VISTA UDS PH 6 Normal LAB L505.5015 <1000 ng/mL AMPHETAMINES Normal NEGATIVE LAB L505.5025 < 200 ng/mL BARBITIURATES Normal NEGATIVE LAB L505.5035 < 200 ng/mL BENZODIAZIPINE Normal NEGATIVE LAB L505.5045 < 300 ng/mL COCAINE Normal NEGATIVE LAB L505.5055 < 500 ng/mL ECSTACY Normal NEGATIVE LAB L505.5065 < 300 ng/mL METHADONE Normal NEGATIVE LAB L505.5075 < 300 ng/mL OPIATES Normal NEGATIVE LAB L505.5085 < 25 ng/mL PCP Normal NEGATIVE LAB L505.5095 < 50 ng/mL THC Normal NEGATIVE Performed By: #### L505.5000 #### [facility] [address], [address] VENOUS BLOOD GAS Collected: 10/25/2017 Status: F Source: [place] 11:59 PM [facility] REPOSITORY TYPE CODE TESTS RESULT OUT OF RANGE REFERENCE UNITS LAB L9000.9990 Normal BLD GAS TYPE [place] LAB L9001.1000 Normal SITE OTHER LAB L9001.1050 O2 Normal Delivery Dev Room Air LAB L9001.1104 Normal Results To ED LAB L9001.1105 Normal Time Given 2355 LAB L9002.1110 7.32-7.42 Normal VBGpH - I-STAT 7.40 LAB L9002.1212 41-51 mmHg Low VBG pCO2 - 35.4 ISTA LAB L9002.1310 25-40 mmHg High VBG PO2 I-STAT 58 LAB L9002.2300 22-26 mmol/L Normal VBG HCO3 ISTAT 22 LAB L9002.2400 -1.0-3.5 mmol/L Low VBG BE ISTAT -3 LAB L9002.2410 50-70 % High VBG SO2 ISTAT 90 LAB L9002.2415 23-33 mmol/L Normal VBG O2 CT 23 ISTAT Performed By: #### L9000.0810 #### [facility] Point of Care [address] [place] [address] WRIST MIN 3 VIEWS Observed: 10/25/2017 Status: F Source: [place] 11:19 PM [facility] REPOSITORY [facility] Services [address] [place] [address] Wrist min 3 Views MR#: [id number] Acct: [id number] Name: VAHID WANG Rep #: [id number] : 2000 M 16 From: Jayashree Vicente MD PCP: Scott Braden MD Status: REG ER Study: Wrist min 3 Views Date of Exam: 10/25/17 Exam# [id number] Ordering Dr: John Rodriguez MD STUDY: X-RAY - LEFT WRIST REASON FOR EXAM: Male, 16 years old. Injury, pain and swelling TECHNIQUE: 3 view(s) of the wrist were obtained. COMPARISON: None. FINDINGS: Normal visualized distal radius and ulna. Normal radiocarpal articulation. Normal distal radioulnar articulation. Normal carpal bones. Normal carpal articulations. Normal carpometacarpal articulation of the thumb. Normal second through fifth carpometacarpal articulations. Normal visualized metacarpal bones. Mild dorsal wrist soft tissue swelling. RAD/Wrist min 3 Views IMPRESSION: There is soft tissue swelling. There is no acute displaced fracture or dislocation. Electronically Signed: Jayashree Vicente MD at 0:08 EDT , Service support , CC: Scott Braden MD; John Rodriguez MD Fork Operator: Signed CBC W/DIFF, AUTOMATED Collected: 10/25/2017 Status: F Source: [place] 10:55 PM [facility] REPOSITORY TYPE CODE TESTS RESULT OUT OF RANGE REFERENCE UNITS LAB L100.1000 4.4-11.0 K/mm3 Normal WBC 9.6 LAB L100.1200 4.6-6.2 M/mm3 Normal RBC 5.61 LAB L100.1300 13.0-16.5 g/dl High HGB 17.6 LAB L100.1400 40-54 % Normal HCT 48.6 LAB L100.1500 80-94 fL Normal MCV 86.6 LAB L100.1600 27.0-32.0 pg Normal MCH 31.4 LAB L100.1700 32-36 g/gl High MCHC 36.2 LAB L100.1810 11.6-14.6 % Normal RDW CV 12.7 LAB L100.1820 35.1-43.9 fl Normal RDW SD 40.1 LAB L100.1900 150-450 K/mm3 Normal PLT 384 LAB L100.2000 6.2-12.0 fl Normal MPV 9.4 LAB L100.2100 47-70 % Normal NEUT% 64.4 LAB L100.2200 19-41 % Normal LY% 25.5 LAB L100.2300 0-10 % Normal MONO% 7.8 LAB L100.2400 0-5 % Normal EO% 0.7 LAB L100.2500 0-1 % Normal BASO% 0.4 LAB L100.2550 0.0-0.9 % High IM GRAN % 1.200 Result Comment: IG% - Immature Granulocytes (promyelocytes, myelocytes and metamyelocytes) > 1% indicates that a LEFT SHIFT is Present. LAB L100.2620 2.0-7.7 X10 3/uL Normal Absolute Neut 6.2 LAB L100.2720 0.83-4.51 X10 3/ul Normal Absolute Lymph 2.44 Performed By: #### L100.0100 #### [facility] [address] [place], [address] BASIC METABOLIC Collected: 10/25/2017 Status: F Source: [place] PROFILE (BMP) 10:55 PM [facility] REPOSITORY TYPE CODE TESTS RESULT OUT OF RANGE REFERENCE UNITS LAB L501.0100 74-106 mg/dL High GLU 354 Result Comment: Glucose result greater than or equal to 200 mg/dL suggests DIABETES MELLITUS per A.D.A. criteria. Please note revised GLUCOSE reference range effective 2017. LAB L501.1000 7-18 mg/dL Normal BUN 15 LAB L501.1100 0.70-1.30 mg/dL Normal CREAT,SERUM 1.21 Result Comment: The validity of the calculated GFR AND GFRAA in patients over 70 years has not been determined. Clinical correlation is essential. LAB L501.1110 >60 mL/min Normal EST GFR 82 Result Comment: Non- GFR Calc LAB L501.1115 >60 mL/min Normal EST GFR - AA 100 Result Comment: GFR Calc LAB L501.1255 ml/min Normal Estimated CRCL 82.20 LAB L501.1300 10-20 RATIO Normal BUN/CRE 12.4 LAB L501.2200 8.5-10 mg/dL Normal .1 CA 9.9 LAB L501.5300 136-14 mmol/L Normal 5 NA 138 LAB L501.5600 3.5-5. mmol/L Normal 1 K 3.6 LAB L501.5900 98-107 mmol/L Normal CL 100 LAB L501.6100 21.0-3 mmol/L Low 2.0 CO2 19.0 LAB L501.6200 5-15 High GAP 19 Performed By: #### L500.2500 #### [facility] [address] [place], [place], [address] ALCOHOL, BLOOD Collected: 10/25/2017 Status: F Source: [place] ([facility])-SERUM 10:55 PM [facility] REPOSITORY TYPE CODE TESTS RESULT OUT OF RANGE REFERENCE UNITS LAB L501.9100 mg/dL Normal SERUM 16.0 ETOH Result Comment: The serum:whole blood ethanol ratio is approximately 1.14 and varies slightly with hematocrit. Medical Alcohol reference interval and critical value in non-tolerant individuals; 50 - 100 Impairment 100 Intoxication 100 - 250 Severe Poisoning 250 - 400 Deep/possible fatal coma Performed By: #### L501.9100 #### [facility] [address] [place], [address] ACETONE SERUM Collected: 10/25/2017 Status: F Source: [place] 10:55 PM [facility] REPOSITORY TYPE CODE TESTS RESULT OUT OF REFERENCE UNITS RANGE LAB L501.6900 NEG High ACETONE SERUM SMALL Performed By: #### L501.6900 #### [facility] [address] [place], [address] ENDOCRINOLOGY VISIT Observed: 10/18/2017 Status: F Source: [place] REPORT 3:43 PM [facility] REPOSITORY [facility] [address] [place] [address] OFFICE VISIT Date of Service: 10/17/17 MR#: [id number] Acct: [id number] Name: VAHID WANG Rep #: [id number] : 2000 Provider: Ilda Chavez NP Age/Sex: 16/M Location: [facility] Status: Signed HPI History of present illness Vahid Wang is an 16 year old male who presents for follow up of diabetes type 1. accompanied by his grandmother. Diagnosed at age 2 with diabetes. 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 Had moved in with a friend for awhile and had several visits to ER and had DKA at least twice. Is now back into his grandmother's home. Taking [id number] units bid and using meal insulin I/C ratio of 7. Taking approx 8-11 units at each meal. ISF=40. Pt denies difficulty with injections or self monitoring of BG. Denies any signs of infection or irritation at site of injections. Reports taking insulin as directed with occ missed doses. At time of visit: -Pt denies symptoms of hypertensive emergency (CP,SOB,HAWKINS, or blurred vision) and hypotension(dizziness or lightheadedness) -Pt denies symptoms of hypoglycemia ( sweaty, confusion, anxiety, tremor, hunger, palpitations) and hyperglycemia ( polydipsia, polyuria) -Pt denies potential medication adverse effect. Hypoglycemia Aware of hypoglycemia: yes Able to self treat low BG: Yes Frequent low Blood sugar: No Has supply of glucagon: Yes Since our last visit he denies excessive thirst, increased frequency of urination, chest pain or dyspnea. Follows a regular diet, Is tolerating without side effects. SMBG 3-6 BG checks daily 66- 300 BG readings. BG highest at bedtime Type: type 1 Glucose control symptoms: Reports high post-meal glucose and high fasting glucose Weight and fatigue symptoms: Denies snoring Cardiopulmonary symptoms: Denies chest pain at rest, dyspnea on exertion, lightheadedness or myalgias GI symptoms: Denies constipation, diarrhea, nausea/dyspepsia or vomiting Skin and extremity symptoms: Denies erectile dysfunction Other symptoms: Denies blurry vision or change in vision Pertinent visit history: Reports recent visit to ER Self monitoring: Yes Diabetes education in past year: Yes Glucose testing: demonstrates correct use of meter, understands testing schedule Sick day education - understands ketone testing: Yes Physical activity: regular Exam Const General: comfortable, no acute distress Nutritional Appearance: well nourished Orientation: oriented x3 HENMT Head: normal to inspection, atraumatic Ears: hearing grossly impaired Mouth: oral mucosae normal, moist mucous membranes Teeth and gingiva: dentition normal Eyes General: appearance normal, both eyes and all related structures Eyelids: eyelids normal Conjunctivae: conjunctivae normal Sclera: sclerae normal Pupils: PERRL Resp Effort AND Inspection: normal respiratory effort, able to speak in complete sentences, symmetric chest movement Auscultation: Bilateral: Clear to Auscultation Cardio Rate: regular rate Rhythm: regular rhythm Heart Sounds: S1 normal, S2 normal, no gallops, no murmurs, no rubs GI Inspection: normal to inspection Auscultation: normal bowel sounds Palpation: soft, no guarding Skin General: no rashes or lesions noted Wounds: no wounds Diabetic Foot Pulses: L dorsalis pedis pulse: normal, R dorsalis pedis pulse: normal Monofilament test: Left foot: normal, Right foot: normal Neuro General: gait normal, moves all extremities Cranial Nerves: CN's II-XI intact bilaterally Extrem General: normal to inspection Psych Appearance: well kempt Mental Status: mental status grossly normal Mood: congruent mood Affect: normal affect Speech and Movement: speech and movement normal Attitude: cooperative Thought Process: normal Thought Content: normal Judgment: fair Weight and fatigue symptoms: Denies snoring Cardiopulmonary symptoms: Denies chest pain at rest, dyspnea on exertion, lightheadedness or myalgias GI symptoms: Denies constipation, diarrhea, nausea/dyspepsia or vomiting Skin and extremity symptoms: Denies erectile dysfunction Other symptoms: Denies blurry vision or change in vision Intake Vital Signs10/17/17 Height 5 ft 8 in 10/17/17 Weight: 137 lb 4 oz 10/17/17 Body Mass Index (BMI) 20.8 10/17/17 Blood Pressure 120/75 10/17/17 Blood Pressure Location Lt popliteal 10/17/17 Blood Pressure Position Sitting Intake Visit Reasons: Diabetes follow-up 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 Accompanied by: Grandmother Is patient in pain?: No Allergies No Known Allergies Allergy (Verified 10/17/17 15:24) Medications insulin aspart U-100 100 unit/mL subcutaneous pen See Label Instructions SC QDAY 08/10/17 [History Confirmed 10/17/17] insulin glargine (U-100) 100 unit/mL (3 mL) subcutaneous pen 45 unit SC QHS #15 ml 09/09/17 [Rx Confirmed 10/17/17] Fluoxetine [Prozac] 20 mg PO DAILY #30 cap 09/13/17 [Rx Confirmed 10/17/17] pen needle, diabetic 31 gauge x / See Dose Instructions .ROUTE .MEDSUPPLY #300 ea 09/26/17 [Rx Confirmed 10/17/17] Nurse's Note: blood sugars : low : 60 high : 600+ PFSH Medical History Anxiety disorder (Acute) Back problem (Acute) Bone fracture (Acute) Diabetes type 1, uncontrolled (Acute) Hearing problem (Acute) Liver disease (Acute) Seizure (Acute) Vision problem (Acute) Surgical History S/p bilateral myringotomy with tube placement (Acute) Family History Mother Kidney disease Social History Smoking Status: Never smoker second hand exposure: No alcohol intake: never substance use type: does not use ROS Const Constitutional: No anorexia, body ache, chills, fatigue, fever(s), frequent falls, decreased energy, malaise, night sweats, weakness, weight change, sleep problems, abnormal sleep pattern, change in appetite, other, headache(s), snoring or excessive sweating Eyes Eyes: No blurry vision, change in vision, double vision, discharge, dry eyes, bulging eyes, floaters, visual disturbances, eye pain, light sensitivity, spots in vision, tunnel vision or other ENT ENT: No abnormal hearing, ear pain, ear discharge, ear pressure, hearing loss, tinnitus, dizziness/vertigo, balance problems, nosebleed/epistaxis, nasal congestion, nasal obstruction, nose pain, sinus pressure, sinus pain, nasal discharge, post nasal drip, headache(s), facial pain, dental pain, dry mouth, bad breath, hoarseness, lip swelling, mouth lesions, mouth pain, sore throat, tongue swelling, throat swelling, other, difficulty swallowing or neck pain Resp Respiratory: No cough, change in phlegm color, chest congestion, excessive phlegm production, hemoptysis, pain on inspiration, shortness of breath, pain with cough, snoring, stridor, wheezing or other Cardio Cardiology: No chest pain at rest, chest pain with exertion, leg pain with exertion, excessive sweating, shortness of breath, dyspnea on exertion, generalized swelling, irregular heart rhythm, lightheadedness, orthopnea, radiating jaw, neck or arm pain, fast heart rate, slow heart rate, palpitations or other Gastro GI: No abdominal pain, belching, bloating, change in bowel habits, change in stool character, coffee ground emesis, constipation, cramping, diarrhea, heartburn, difficulty swallowing, feeling full early, excessive flatus, incontinent of stools, Vomiting blood/hematemesis, blood in stool, loose stools, Black,tarry stools, nausea/dyspepsia, pain with swallowing, vomiting or other Genitourinary Male: No difficulty urinating, burning urination, painful urination, urinary incontinence, urinary frequency, urinary urgency, urinary hesitancy, urinary retention, blood in urine, Frequent nighttime urination/ nocturia, post void dribbling, suprapubic fullness, side pain, sexual problems, genital lesions, genital itching, erectile dysfunction, penile discharge, difficulty with ejaculations, blood in semen, scrotal swelling, testicle lump, testicle pain or other Musc Musculoskeletal: No abnormal walking, joint pain, back pain, deformity, joint swelling, limited range of motion, loss of height, muscle cramps, muscle weakness, decreased muscle mass, body aches, neck pain, numbness, radiating pain into limb, stiffness, tingling or other Skin Skin: No acne, hair loss, change in hair, nail changes, boil, change in skin color, dry skin, redness, excessive hair growth, yellowing of the skin, lesions, itching, rash, skin pain, skin ulcer, sores, skin swelling, wounds or other Breast Breast: No other Neuro Neurology: No frequent falls, weakness, visual disturbances, abnormal hearing, headache(s), abnormal walking, numbness or tingling Psych Psychiatric: No abnormal sleep pattern, No change in appetite Endo Endocrine: No fatigue, other or excessive sweating Aller/Imm Allergy/Immunologic: No lip swelling, tongue swelling, throat swelling, wheezing or itchy eyes Assessment AND Plan 1. Uncontrolled type 1 diabetes mellitus with hyperglycemia E10.65 Orders Orders: Plan Detail Other Medications Discontinued: Additional Comments 1. Please schedule follow up in 3 months. 2. Lab work one week before appointment. 3. Discussed importance of regular exercise and recommend starting or continuing a regular exercise program for good health. 4. The patient was encouraged to lose weight for good health 5. The importance of monitoring blood sugar regularly was reviewed. 6. The importance of monitoring the HBA1c level regularly was reviewed. 7. The importance of prper foot care and regularly checking feet to prevent sores and loss of limbs was reviewed. 8. The importance of keeping BP at or below 130/80 to prevent stroke, heart attacks, kidney failure, blindness was reviewed. Spent approximately 45 minutes with patient with over 50% of time spent in discussion and counseling regarding medication adjustment, symptoms and treatment of hypoglycemia, diet adherence, and checking BG before driving. Coding Level of Care Code Off vis,est,level 4 Diagnoses Uncontrolled type 1 diabetes mellitus with hyperglycemia E10.65 Diabetes mellitus complication status: with hyperglycemia Time Spent (min) 45 10/18/17 2757 <Electronically signed by Ilda COTTO> Date Ilda COTTO Cosigner Signature: Date (if applicable) CC: HEMOGLOBIN A1C Collected: 10/17/2017 Status: F Source: [place] 4:03 PM [facility] REPOSITORY TYPE CODE TESTS RESULT OUT OF RANGE REFERENCE UNITS LAB L501.9985 4.2-6.3 % High HGB A1C 12.3 Performed By: #### L501.9985, L500.4050, L502.0250 #### [facility] [address] [place], [address] COMPREHENSIVE METABOLIC Collected: 10/17/2017 Status: F Source: [place] [facility] [facility] 4:03 PM [facility] REPOSITORY TYPE CODE TESTS RESULT OUT OF RANGE REFERENCE UNITS LAB L501.0100 74-106 mg/dL High GLU 437 Result Comment: Glucose result greater than or equal to 200 mg/dL suggests DIABETES MELLITUS per A.D.A. criteria. Please note revised GLUCOSE reference range effective 2017. LAB L501.1000 7-18 mg/dL Normal BUN 13 LAB L501.1100 0.70-1.30 mg/dL Normal CREAT,SERUM 0.79 Result Comment: The validity of the calculated GFR AND GFRAA in patients over 70 years has not been determined. Clinical correlation is essential. LAB L501.1110 >60 mL/min Normal EST GFR 135 Result Comment: Non- GFR Calc LAB L501.1115 >60 mL/min Normal EST GFR - AA 163 Result Comment: GFR Calc LAB L501.1300 10-20 RATIO Normal BUN/CRE 16.5 LAB L501.1500 6.4-8.2 g/dL T Normal PROT 6.4 LAB L501.1800 3.2-5.0 g/dL Normal ALB 3.4 LAB L501.1950 2.2-4.2 g/dL Normal GLOB 3.0 LAB L501.2000 0.9-2.4 RATIO Normal A/G 1.1 LAB L501.2200 8.5-10.1 mg/dL CA Normal 8.6 LAB L501.4100 15-37 U/L High AST 79 Result Comment: Slight Hemolysis, Result may be falsely increased. LAB L501.4305 52-171 U/L Normal ALK P 154 LAB L501.4405 16-61 U/L High ALT 97 Result Comment: Please note revised ALT reference range effective 2017. LAB L501.4600 0.20-1.00 mg/dL Normal T BILI 0.40 LAB L501.5300 136-145 mmol/L Low NA 135 LAB L501.5600 3.5-5.1 mmol/L Normal K 4.1 Result Comment: Slight Hemolysis, Result may be falsely increased. LAB L501.5900 98-107 mmol/L Normal CL 98 LAB L501.6100 21.0-32.0 mmol/L Normal CO2 25.0 LAB L501.6200 5-15 Normal GAP 12 Performed By: #### L501.9985, L500.4050, L502.0250 #### [facility] [address] [place], [place], [address] MICROALB:CREAT Collected: 10/17/2017 Status: F Source: [place] RATIO,[place] UR 4:03 PM [facility] REPOSITORY TYPE CODE TESTS RESULT OUT OF RANGE REFERENCE UNITS LAB L501.1200 NO RANGE EST. mg/dL Normal UR CREAT 58.40 LAB L502.0500 NO RANGE EST. mg/L Normal 16.4 MICROALBUMIN ,UR LAB L502.0600 <30 mg/g CRE mg/g CRE Normal 28.1 MALB:CREAT Performed By: #### L501.9985, L500.4050, L502.0250 #### [facility] [address] [place], [place], [address] ENDOCRINOLOGY VISIT Observed: 10/04/2017 Status: F Source: [place] REPORT 8:04 AM [facility] REPOSITORY [facility] [address] [place] [address] OFFICE VISIT Date of Service: 10/03/17 MR#: [id number] Acct: [id number] Name: VAHID WANG Rep #: [id number] : 2000 Provider: Ilda Chavez NP Age/Sex: 16/M Location[place] [facility] Status: Signed HPI History of present illness Vahdi Wang is an 16 year old male who presents for follow up of diabetes type 1. accompanied by his grandmother. Diagnosed at age 2 with diabetes. 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 Had moved in with a friend for awhile and had several visits to ER and had DKA at least twice. Is now back into his grandmother's home. Taking [id number] units bid and using meal insulin I/C ratio of 7. Taking approx 8-11 units at each meal. ISF=40. Pt denies difficulty with injections or self monitoring of BG. Denies any signs of infection or irritation at site of injections. Reports taking insulin as directed with occ missed doses. At time of visit: -Pt denies symptoms of hypertensive emergency (CP,SOB,HAWKINS, or blurred vision) and hypotension(dizziness or lightheadedness) -Pt denies symptoms of hypoglycemia ( sweaty, confusion, anxiety, tremor, hunger, palpitations) and hyperglycemia ( polydipsia, polyuria) -Pt denies potential medication adverse effect. Hypoglycemia Aware of hypoglycemia: yes Able to self treat low BG: Yes Frequent low Blood sugar: No Has supply of glucagon: Yes Since our last visit he denies excessive thirst, increased frequency of urination, chest pain or dyspnea. Follows a regular diet, Is tolerating without side effects. SMBG 3-6 BG checks daily 80-400 BG BG highest at bedtime Type: type 1 Glucose control symptoms: Reports high post-meal glucose and high fasting glucose Weight and fatigue symptoms: Denies snoring Cardiopulmonary symptoms: Denies chest pain at rest, dyspnea on exertion, lightheadedness or myalgias GI symptoms: Denies constipation, diarrhea, nausea/dyspepsia or vomiting Skin and extremity symptoms: Denies erectile dysfunction Other symptoms: Denies blurry vision or change in vision Pertinent visit history: Reports recent visit to ER Self monitoring: Yes Diabetes education in past year: Yes Glucose testing: demonstrates correct use of meter, understands testing schedule Sick day education - understands ketone testing: Yes Physical activity: regular Exam Const General: comfortable, no acute distress Nutritional Appearance: well nourished Orientation: oriented x3 HENMT Head: normal to inspection, atraumatic Ears: hearing grossly impaired Mouth: oral mucosae normal, moist mucous membranes Teeth and gingiva: dentition normal Eyes General: appearance normal, both eyes and all related structures Eyelids: eyelids normal Conjunctivae: conjunctivae normal Sclera: sclerae normal Pupils: PERRL Resp Effort AND Inspection: normal respiratory effort, able to speak in complete sentences, symmetric chest movement Auscultation: Bilateral: Clear to Auscultation Cardio Rate: regular rate Rhythm: regular rhythm Heart Sounds: S1 normal, S2 normal, no gallops, no murmurs, no rubs GI Inspection: normal to inspection Auscultation: normal bowel sounds Palpation: soft, no guarding Skin General: no rashes or lesions noted Wounds: no wounds Diabetic Foot Pulses: L dorsalis pedis pulse: normal, R dorsalis pedis pulse: normal Monofilament test: Left foot: normal, Right foot: normal Neuro General: gait normal, moves all extremities Cranial Nerves: CN's II-XI intact bilaterally Extrem General: normal to inspection Psych Appearance: well kempt Mental Status: mental status grossly normal Mood: congruent mood Affect: normal affect Speech and Movement: speech and movement normal Attitude: cooperative Thought Process: normal Thought Content: normal Judgment: fair Intake Vital Signs10/03/17 Height 5 ft 8 in 10/03/17 Weight: 137 lb 4 oz 10/03/17 Body Mass Index (BMI) 20.8 10/03/17 Blood Pressure 120/76 10/03/17 Blood Pressure Location Lt popliteal 10/03/17 Blood Pressure Position Sitting Intake Visit Reasons: Diabetes Mellitus Type 1 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 Accompanied by: Grandmother Is patient in pain?: No Allergies No Known Allergies Allergy (Verified 10/03/17 14:54) Medications insulin aspart U-100 100 unit/mL subcutaneous pen See Label Instructions SC QDAY 08/10/17 [History Confirmed 10/03/17] insulin glargine (U-100) 100 unit/mL (3 mL) subcutaneous pen 45 unit SC QHS #15 ml 09/09/17 [Rx Confirmed 10/03/17] Fluoxetine [Prozac] 20 mg PO DAILY #30 cap 09/13/17 [Rx Confirmed 10/03/17] pen needle, diabetic 31 gauge x 11/29 See Dose Instructions .ROUTE .MEDSUPPLY #300 ea 09/26/17 [Rx Confirmed 10/03/17] Nurse's Note: blood sugars : low : 100 high : 600+ PFSH Medical History Anxiety disorder (Acute) Back problem (Acute) Bone fracture (Acute) Diabetes type 1, uncontrolled (Acute) Hearing problem (Acute) Liver disease (Acute) Seizure (Acute) Vision problem (Acute) Surgical History S/p bilateral myringotomy with tube placement (Acute) Family History Mother Kidney disease Social History Smoking Status: Never smoker second hand exposure: No alcohol intake: never substance use type: does not use ROS Const Constitutional: No anorexia, body ache, chills, fatigue, fever(s), frequent falls, decreased energy, malaise, night sweats, weakness, weight change, sleep problems, abnormal sleep pattern, change in appetite, other, headache(s), snoring or excessive sweating Eyes Eyes: No blurry vision, change in vision, double vision, discharge, dry eyes, bulging eyes, floaters, visual disturbances, eye pain, light sensitivity, spots in vision, tunnel vision or other ENT ENT: No abnormal hearing, ear pain, ear discharge, ear pressure, hearing loss, tinnitus, dizziness/vertigo, balance problems, nosebleed/epistaxis, nasal congestion, nasal obstruction, nose pain, sinus pressure, sinus pain, nasal discharge, post nasal drip, headache(s), facial pain, dental pain, dry mouth, bad breath, hoarseness, lip swelling, mouth lesions, mouth pain, sore throat, tongue swelling, throat swelling, other, difficulty swallowing or neck pain Resp Respiratory: No cough, change in phlegm color, chest congestion, excessive phlegm production, hemoptysis, pain on inspiration, shortness of breath, pain with cough, snoring, stridor, wheezing or other Cardio Cardiology: No chest pain at rest, chest pain with exertion, leg pain with exertion, excessive sweating, shortness of breath, dyspnea on exertion, generalized swelling, irregular heart rhythm, lightheadedness, orthopnea, radiating jaw, neck or arm pain, fast heart rate, slow heart rate, palpitations or other Gastro GI: No abdominal pain, belching, bloating, change in bowel habits, change in stool character, coffee ground emesis, constipation, cramping, diarrhea, heartburn, difficulty swallowing, feeling full early, excessive flatus, incontinent of stools, Vomiting blood/hematemesis, blood in stool, loose stools, Black,tarry stools, nausea/dyspepsia, pain with swallowing, vomiting or other Genitourinary Male: No difficulty urinating, burning urination, painful urination, urinary incontinence, urinary frequency, urinary urgency, urinary hesitancy, urinary retention, blood in urine, Frequent nighttime urination/ nocturia, post void dribbling, suprapubic fullness, side pain, sexual problems, genital lesions, genital itching, erectile dysfunction, penile discharge, difficulty with ejaculations, blood in semen, scrotal swelling, testicle lump, testicle pain or other Musc Musculoskeletal: No abnormal walking, joint pain, back pain, deformity, joint swelling, limited range of motion, loss of height, muscle cramps, muscle weakness, decreased muscle mass, body aches, neck pain, numbness, radiating pain into limb, stiffness, tingling or other Neuro Neurology: No frequent falls, weakness, visual disturbances, abnormal hearing, headache(s), abnormal walking, numbness or tingling Psych Psychiatric: No abnormal sleep pattern, No change in appetite Endo Endocrine: No fatigue, other or excessive sweating Aller/Imm Allergy/Immunologic: No lip swelling, tongue swelling, throat swelling or wheezing Assessment AND Plan Problems 1. Uncontrolled type 1 diabetes mellitus with hyperglycemia E10.65 Plan Must check BG in pairs at meals. Also recheck BG in 2 hours if you note high BG or if you have taken a correction. Avoid constant snacking in the evening. Medications Discontinued: Plan Detail Additional Comments 1. Please schedule follow up in 6 weeks 2. Lab work one week before appointment. 3. Discussed importance of regular exercise and recommend starting or continuing a regular exercise program for good health. 4. The patient was encouraged to lose weight for good health 5. The importance of monitoring blood sugar regularly was reviewed. 6. The importance of monitoring the HBA1c level regularly was reviewed. 7. The importance of prper foot care and regularly checking feet to prevent sores and loss of limbs was reviewed. 8. The importance of keeping BP at or below 130/80 to prevent stroke, heart attacks, kidney failure, blindness was reviewed. Spent approximately 30 minutes with patient with over 50% of time spent in discussion and counseling regarding medication adjustment, symptoms and treatment of hypoglycemia, diet adherence, and checking BG before driving. Coding Level of Care Code Off vis,est,level 4 Diagnoses Uncontrolled type 1 diabetes mellitus with hyperglycemia E10.65 Diabetes mellitus complication status: with hyperglycemia Time Spent (min) 30 10/04/17 0804 <Electronically signed by Ilda COTTO> Date Ilda COTTO Cosigner Signature: Date (if applicable) CC: EMERGENCY DEPARTMENT Observed: 09/15/2017 Status: F Source: [place] SUMMARY 2:49 PM [facility] REPOSITORY [facility] Medical Records Department [address] [facility] [place] [address] Emergency Department Summary 09/13/17 1910 MR#: [id number] Acct: [id number] Name: VAHID WANG Rep #: [id number] : 2000 16 From: John Rodriguez MD PCP: Scott Braden MD Status: DEP ER - ER Visit Summary Date of Service: 09/13/17 Addendum: Patient was checked out to me by Dr. James with a consult from the counseling center pending. The cancer has come and seen the patient. Patient reports that the text that he sent to his friend were really more of anger and an effort to impress her. He denies any true suicidal ideation and is able to contract for safety. I had a prolonged discussion with the patient about this. He reiterates this to me. He is future oriented and he is able to contract for safety with me as well. Emergency Department Course and Treatment: The patient does report that he took extra insulin. However, his blood sugar has remained elevated in the emergency department despite repeated doses of insulin here. I suspect that he either did not take any or took a small dose of insulin that was not life-threatening. Treatment Plan: The patient is able to contract for safety with both me and the counseling center. He will be discharged instructions to follow-up the counseling center soon as possible. I did have a discussion with him if he has any further thoughts of harming himself or concerns he should return for further evaluation and treatment. Disposition: To home in improved condition. Impression: 1. Depression. 2. Hyperglycemia. 3. Insulin-dependent diabetes mellitus. This note was generated with Poxel dictation software. It may contain incorrect words, spelling, and punctuation that were not noted in review of the chart prior to signing ED Disposition - Plan for ED Patient: Disposition: Home or Assisted Living Chief Complaint: Hyperglycemia Instructions: ED Depression Prescriptions: Fluoxetine [Prozac] 20 mg PO DAILY #30 capsule Referrals: Scott Braden MD [Primary Care Provider] - 1-2 Days if not improving Counseling,[facility] [GROUP OF PHYSICIANS] - Keep Marilyn appointment Additional Instructions: Coping mechanisms- 5 deep breaths, Journal, savor, music, walks or exercise. Cognitive behavioral therapy- Thoughts lead to emotions. Therefore emotion cannot be used as evidence that thought is accurate. Challenge automatic and negative thoughts. 15 Types of Problematic Thinking 1. Filtering: You take the negative details and magnify them while filtering out all positive aspects of a situation. 2. Polarized Thinking: Things are black or white, good or bad. You have to be perfect or you're a failure. There is no middle ground, it's all or nothing. 3. Overgeneralization: Coming to a general conclusion based on a single incident or piece of evidence. If something bad happens once, you expect it to happen over and over again. 4. Mind Reading: Without them saying so, you know what people are feeling and why they act the way they do. In particular, you are able to tell how people are feeling toward you. 5. Catastrophizing: You expect disaster. You notice or hear about a problem and start what ifs . What if tragedy strikes? What if it happens to you? 6. Personalization: Thinking that everything people do or say is some kind of reaction to you. You also compare yourself to others, trying to determine who's smarter, better looking, etc. 7. Control Fallacies: If you feel externally controlled, you see yourself as helpless, a victim of fate. The fallacy of internal control has you responsible for the pain and happiness of everyone around you. 8. Fallacy of Fairness: You feel resentful because you think you know what's fair but other people won't agree with you. 9. Blaming: You hold others responsible for your pain. Or, you take the other tack and blame yourself for every problem or reversal without regard to external causes. 10. Shoulds: You have a list of ironclad rules about how you and other people should act. People who break the rules anger you and you feel guilty if you violate the rules. 11. Emotional Reasoning: You believe that what you feel must be true- automatically. If you feel stupid and boring, then you must be stupid and boring. 12. Fallacy of Change: You expect that other people will change to suit you if you just pressure or cajole them enough. You need to change people because your hopes for happiness seem to depend entirely on them. 13. Global Labeling: You generalize one or two qualities into a negative global judgment. 14. Being Right: You are continually on trial to prove that your opinions and actions are correct. Being wrong is unthinkable and you will go to any length to demonstrate your rightness. 15. Heaven's Reward Fallacy: You expect all your sacrifice and self-denial to pay off, as if there were someone keeping score. You feel bitter when the reward doesn't come What to do if you have Problems For any increased pain, shortness of breath, bleeding, nausea or vomiting, chest pain, or any unexpected problems, contact your Primary Care Provider. Call [facility] ([phone]) or report to the closest Emergency Room. Call 911 if necessary. 09/15/17 1449 <Electronically signed by John Rodriguez MD> Date John Rodriguez MD Cosigner Signature (If Indicated): Date CC: Scott Braden MD BEDSIDE GLUCOSE Collected: 09/13/2017 Status: F Source: [place] 6:52 PM [facility] REPOSITORY TYPE CODE TESTS RESULT OUT OF REFERENCE UNITS RANGE LAB L501.080 70-110 mg/dL High BEDSIDE GLU 396 Result Comment: MANAGEMENT OF PATIENT CARE PER NURSING PROTOCOL Performed By: #### L501.080 #### [facility] Point of Care [address] [place] [address] BEDSIDE GLUCOSE Collected: 09/13/2017 Status: F Source: [place] 5:06 PM [facility] REPOSITORY TYPE CODE TESTS RESULT OUT OF REFERENCE UNITS RANGE LAB L501.080 70-110 mg/dL High BEDSIDE GLU 351 Result Comment: MANAGEMENT OF PATIENT CARE PER NURSING PROTOCOL Performed By: #### L501.080 #### [facility] Point of Care [address] [place] [address] BEDSIDE GLUCOSE Collected: 09/13/2017 Status: F Source: [place] 3:59 PM [facility] REPOSITORY TYPE CODE TESTS RESULT OUT OF REFERENCE UNITS RANGE LAB L501.080 70-110 mg/dL High alert BEDSIDE GLU > 500 Result Comment: Insulin Given MANAGEMENT OF PATIENT CARE PER NURSING PROTOCOL Performed By: #### L501.080 #### [facility] Point of Care [address] [facility] [place] [address] EMERGENCY DEPARTMENT Observed: 09/13/2017 Status: F Source: [place] SUMMARY 3:11 PM [facility] REPOSITORY [facility] Medical Records Department [address] [place], [place] [address] [address] Emergency Department Summary 09/13/17 1508 MR#: [id number] Acct: [id number] Name: VAHID WANG Rep #: [id number] : 2000 16 From: Mila Gibbons DO PCP: Scott Braden MD Status: REG ER - ER Visit Summary Date of Service: 09/13/17 Chief Complaint: [Depression, hyperglycemia, suicidal ideation] History of Present Illness: The patient is a 16 M [presents to the emergency department via EMS from school. Patient not very forthcoming with information. Apparently he had told a friend that he wanted to end his life by overdosing. It was thought perhaps patient may have overdosed on his insulin. On EMS arrival it was noted that his blood sugar was over 500 which she states is not unusual for him. Patient states that he gave himself insulin this morning after breakfast and at lunchtime but he does not know how much he gave himself. Patient tells me that he feels like everything is pointless he has been feeling this way for a while.] Physical Examination: [HEENT-PERRLA, EOMI. Cranial nerves II through XII grossly intact. TMs clear. Mucous membranes moist. No adenopathy. Cardiovascular-regular rate and rhythm without murmur or ectopy Lungs-clear to auscultation, chest wall stable without crepitus or subcu emphysema Abdomen-normoactive bowel sounds, soft, nontender, no rebound or rigidity, no peritoneal signs. Extremities-intact 4, normal range of motion, normal pulses, atraumatic] Test Results: [CBC with differential was unremarkable. Sodium was 134, potassium 5.9, chloride seat 99, CO2 is 22, glucose 543, BUN was 19, creatinine 0.74. Urine tox screen was negative.] Emergency Department Course and Treatment: [Patient was given aspartate insulin 10 units subcu. Patient will be evaluated by crisis. I received the text chain from the patient and his friend were patient does state that he plans on harming himself.] Treatment Plan: [Patient to be evaluated by crisis and plan will be to admit to transfer to psychiatric facility for inpatient treatment.] Disposition: [Pending crisis evaluation] Impression: [Hyperglycemia Depression Suicidal ideation] This note was generated with Poxel dictation software. It may contain incorrect words, spelling, and punctuation that were not noted in review of the chart prior to signing ED Disposition - Plan for ED Patient: Chief Complaint: Hyperglycemia Referrals: Scott Braden MD [Primary Care Provider] - What to do if you have Problems For any increased pain, shortness of breath, bleeding, nausea or vomiting, chest pain, or any unexpected problems, contact your Primary Care Provider. Call [facility] ([phone]) or report to the closest Emergency Room. Call 911 if necessary. 09/13/17 1511 <Electronically signed by Mila Gibbons DO> Date Mila Gibbons DO Cosigner Signature (If Indicated): Date CC: Scott Braden MD ALCOHOL, BLOOD Collected: 09/13/2017 Status: F Source: RIP (MEDICAL)-SERUM 2:40 PM [facility] REPOSITORY Order Comment: RREDRAW. PREVIOUS SPECIMEN REJECTED DUE TO HEMOLYSIS. 09/13/17 1431 Zaria Jose. TYPE CODE TESTS RESULT OUT OF RANGE REFERENCE UNITS LAB L501.9100 mg/dL Normal SERUM 6.0 ETOH Result Comment: The serum:whole blood ethanol ratio is approximately 1.14 and varies slightly with hematocrit. Medical Alcohol reference interval and critical value in non-tolerant individuals; 50 - 100 Impairment 100 Intoxication 100 - 250 Severe Poisoning 250 - 400 Deep/possible fatal coma Performed By: #### L501.9100, L501.6900 #### [facility] [address] [place], [address] ACETONE SERUM Collected: 09/13/2017 Status: F Source: [place] 2:40 PM [facility] REPOSITORY Order Comment: RREDRAW. PREVIOUS SPECIMEN REJECTED DUE TO HEMOLYSIS. 09/13/17 1431 Zaria Garcia. TYPE CODE TESTS RESULT OUT OF REFERENCE UNITS RANGE LAB L501.6900 NEG High ACETONE SERUM SMALL Performed By: #### L501.9100, L501.6900 #### [facility] [address] [place], [address] URINE DRUG SCREEN Collected: 09/13/2017 Status: F Source: [place] (VISTA) 2:10 PM [facility] REPOSITORY Order Comment: Order Date: 09/13/17 Has pt arrived? Y TYPE CODE TESTS RESULT OUT OF RANGE REFERENCE UNITS LAB L505.0075 TO BE Normal CONFIRMED Result Comment: CONFIRMATORY TESTING FOR ALL POSITIVE URINE DRUG SCREEN RESULTS WILL ONLY BE SENT OUT UPON PHYSICIAN ORDER. VISTA Urine Drug Screen methods provide only preliminary analytical test results. A more specific alternate chemical method must be used in order to obtain a confirmed analytical result. Gas chromatography/mass spectrometery (GC/MS) is the preferred confirmatory method. Clinical consideration and professional judgement should be applied to any drug of abuse test result, particularly when preliminary positive results are used. URINE TCA TESTING MUST BE ORDERED SEPARATELY. USE TEST MNEMONIC: [facility] LAB L505.5005 VISTA UDS PH 6 Normal LAB L505.5015 <1000 ng/mL AMPHETAMINES Normal NEGATIVE LAB L505.5025 < 200 ng/mL BARBITIURATES Normal NEGATIVE LAB L505.5035 < 200 ng/mL BENZODIAZIPINE Normal NEGATIVE LAB L505.5045 < 300 ng/mL COCAINE Normal NEGATIVE LAB L505.5055 < 500 ng/mL ECSTACY Normal NEGATIVE LAB L505.5065 < 300 ng/mL METHADONE Normal NEGATIVE LAB L505.5075 < 300 ng/mL OPIATES Normal NEGATIVE LAB L505.5085 < 25 ng/mL PCP Normal NEGATIVE LAB L505.5095 < 50 ng/mL THC Normal NEGATIVE Performed By: #### L505.5000 #### [facility] [address] [place], [address] CBC W/DIFF, AUTOMATED Collected: 09/13/2017 Status: F Source: [place] 2:06 PM [facility] REPOSITORY TYPE CODE TESTS RESULT OUT OF RANGE REFERENCE UNITS LAB L100.1000 4.4-11.0 K/mm3 Normal WBC 5.9 LAB L100.1200 4.6-6.2 M/mm3 Normal RBC 4.64 LAB L100.1300 13.0-16.5 g/dl Normal HGB 14.4 LAB L100.1400 40-54 % Normal HCT 41.9 LAB L100.1500 80-94 fL Normal MCV 90.3 LAB L100.1600 27.0-32.0 pg Normal MCH 31.0 LAB L100.1700 32-36 g/gl Normal MCHC 34.4 LAB L100.1810 11.6-14.6 % Normal RDW CV 12.3 LAB L100.1820 35.1-43.9 fl Normal RDW SD 40.0 LAB L100.1900 150-450 K/mm3 Normal PLT 250 LAB L100.2000 6.2-12.0 fl Normal MPV 9.8 LAB L100.2100 47-70 % Normal NEUT% 60.2 LAB L100.2200 19-41 % Normal LY% 28.2 LAB L100.2300 0-10 % Normal MONO% 8.0 LAB L100.2400 0-5 % Normal EO% 2.6 LAB L100.2500 0-1 % Normal BASO% 0.7 LAB L100.2550 0.0-0.9 % Normal IM GRAN % 0.300 Result Comment: IG% - Immature Granulocytes (promyelocytes, myelocytes and metamyelocytes) > 1% indicates that a LEFT SHIFT is Present. LAB L100.2620 2.0-7.7 X10 3/uL Normal Absolute Neut 3.5 LAB L100.2720 0.83-4.51 X10 3/ul Normal Absolute Lymph 1.65 Performed By: #### L100.0100 #### [facility] [address] [place], [place], [address] BASIC METABOLIC Collected: 09/13/2017 Status: F Source: [place] PROFILE (BMP) 2:06 PM [facility] REPOSITORY TYPE CODE TESTS RESULT OUT OF RANGE REFERENCE UNITS LAB L501.0100 74-106 mg/dL High alert GLU 543 Result Comment: Critical Result(s) Called at: 14:39:13 09/13/2017 by: Sylvia conn Glucose result greater than or equal to 200 mg/dL suggests DIABETES MELLITUS per A.D.A. criteria. Please note revised GLUCOSE reference range effective 2017. LAB L501.1000 7-18 mg/dL High BUN 19 LAB L501.1100 0.70-1.30 mg/dL Normal CREAT,SERUM 0.74 Result Comment: The validity of the calculated GFR AND GFRAA in patients over 70 years has not been determined. Clinical correlation is essential. LAB L501.1110 >60 mL/min Normal EST GFR 145 Result Comment: Non- GFR Calc LAB L501.1115 >60 mL/min Normal EST GFR - AA 175 Result Comment: GFR Calc LAB L501.1255 ml/min Normal Estimated CRCL 135.02 LAB L501.1300 10-20 RATIO High BUN/CRE 25.6 LAB L501.2200 8.5-10 mg/dL .1 CA Normal 9.0 LAB L501.5300 136-14 mmol/L Low 5 NA 134 LAB L501.5600 3.5-5. mmol/L High 1 K 5.9 Result Comment: Moderate Hemolysis, Result may be falsely increased. LAB L501.5900 98-107 mmol/L Normal CL 99 LAB L501.6100 21.0-32.0 mmol/L Normal CO2 22.0 LAB L501.6200 5-15 Normal GAP 13 Performed By: #### L500.2500 #### [facility] [address] [place], [address] DISCHARGE SUMMARY Observed: 09/09/2017 Status: F Source: [place] 11:54 AM [facility] REPOSITORY [facility] Medical Records Department [address] [place] [address] Discharge Summary 09/08/17 1556 MR#: [id number] Acct: [id number] Name: VAHID WANG Rep #: [id number] : 2000 16 From: Diego Abdullahi MD PCP: Scott Braden MD Status: DIS IN Y Location: [place] [id number] Discharge Date and Diagnosis Date of Admission: 09/07/17 Date of Discharge: 09/08/17 - Primary Discharge Diagnosis #1 hyperglycemia. #2 uncontrolled type 1 diabetes mellitus. #3 noncompliant patient. - Secondary Discharge Diagnosis Chronic Problems (Last Reviewed 08/14/17 @ 15:00 by Amanda Wilkinson) DM I (diabetes mellitus, type I), uncontrolled (Chronic) BG varied but not checked in a manner that shows his issues. Occ checks post correction and occ post meal. Does have a pattern of BG climbing from 6am to 12n. Will have him specifically check 2 hours after breakfast to see if this is a I/C ratio issue. Hospital Course and Treatment Operations: None Procedures: None Summary of Care Provided: Patient seen and examined on the day of discharge and appears to be stable to be discharged home. His blood sugar has been in the range of 150-250. He denied abdominal pain, nausea or vomiting. Denied chest pain or shortness of breath. Vital signs are stable. - Physical Exam General: Alert, Oriented x3, Cooperative, No apparent distress. HEENT: Atraumatic, PERRLA, EOMI. Neck: Supple, No JVD, Negative Carotid Bruits, Trachea Midline, Thyroid Normal. Lungs: Clear to auscultation, Normal air movement, No rhonchi, No wheeze, No rales. Cardiovascular: Regular rate, Regular Rhythm, Normal S1, Normal S2, PMI Normal. Abdomen: Bowel Sounds Present, Soft, Non Tender, Non-Distended, No Hepato-splenomegaly. Extremities: No clubbing, No cyanosis, No edema Skin: No rashes, No breakdown Neurological: Neuro grossly intact Vital Signs are stable. Hospital course: The patient is a 16 year old M presented to the emergency room because of high blood pressure and extreme thirst and he was found to have blood sugar of 709 mg/dL upon arrival to the emergency room., Carbon dioxide was 14 and his anion gap was 20. His acetone level was small. Initially, there was a concern that patient may have diabetic ketoacidosis which turned to be less likely. Patient was treated with IV insulin drip for couple of hours and his blood sugar came down to 200s after which IV insulin drip discontinued. Patient stated that he takes his insulin every day as prescribed which is long acting insulin. His blood sugar remained in the range of 100-200 on his regular home doses of long acting insulin in addition to sliding scale. marketing services rep and case management consulted and after multiple discussions with the patient, he turned to be not compliant with his insulin. Apparently, patient has not been taking his insulin which is mainly the long acting insulin for long time. The mattress spring encaser called the patient's pharmacy as well as insurance company and apparently, patient did not refill his long acting insulin since August,. When patient was confronted by noncompliance, he admitted not taking his insulin as prescribed. I spoke with the patient in length about compliance with his treatment. I explained to him that diabetes is a multi- organ disease and can affect almost every organ and his body and since he has been diabetic since age of 2, his likelihood of having complications of diabetes within few years as high if he did not take his insulin as prescribed. I tried to explain to him the acute and chronic complications of diabetes including, but not limited to, heart disease, kidney disease, skin disease and nervous system complications. Patient discharged home in a stable medical condition, long counseling about diabetes of treatment and care provided, discharged on the same dosage of long acting as well as short acting insulin which are insulin aspart and insulin glargine, recommended to follow-up with endocrinology as outpatient, our mattress spring encaser will call KASHIF chavez NP office on Monday to take an appointment for him and will call him with that appointment, highly recommended to closely monitor his blood pressure, follow-up with PCP in 1 week. Discharge Activity: Return to Normal Activity Weight Bearing Status: Full weight bearing Call your doctor if you observe: Fever of 101 or Higher, Shortness of breath, Dizziness, Fainting spells, Chest pain, Increased palpitations (irregular heartbeat), Uncontrolled pain Home Medications: Medications to take at Discharge insulin aspart U-100 100 unit/mL subcutaneous pen See Label Instructions SC QDAY 08/10/17 Ondansetron [Zofran Odt] 4 mg PO Q8H PRN PRN 09/07/17 Cyclobenzaprine [Flexeril] 10 mg PO TID PRN PRN 09/08/17 insulin glargine (U-100) 100 unit/mL (3 mL) subcutaneous pen 41 unit SC QHS #15 ml 09/08/17 Primary Care Physician: Scott Braden MD [Primary Care Provider] - Please follow up with your Primary Care Physician in: 1-2 weeks. Please Follow Up With: Ilda Chavez, [employer]MENT SALES MANAGER-C When: This coming week. Patient Instructions: A1C, Using a Blood Sugar Log, Hyperglycemia (High Blood Sugar), Hypoglycemia (Low Blood Sugar), How to Check Your Blood Sugar, Using Injected Insulin Disposition: Home Minutes spent on discharge:: 26 Patient Condition:: Stable Meaningful Use Info Meaningful Use Diagnoses (Choose all that apply): None applicable Code Visit Inpatient E AND M: [id number] Disch Hosp 09/09/17 1154 <Electronically signed by Diego Abdullahi MD> Date Diego Abdullahi MD Cosigner Signature (if applicable): Date CC: Ilda Chavez NP; Scott Braden MD; Diego Abdullahi Signed BEDSIDE GLUCOSE Collected: 09/08/2017 Status: F Source: [place] 4:02 PM [facility] REPOSITORY TYPE CODE TESTS RESULT OUT OF REFERENCE UNITS RANGE LAB L501.080 70-110 mg/dL High BEDSIDE GLU 194 Result Comment: MANAGEMENT OF PATIENT CARE PER NURSING PROTOCOL Performed By: #### L501.080 #### [facility] Point of Care [address] [place] [address] DISCHARGE INSTRUCTION Observed: 09/08/2017 Status: F Source: [place] 3:39 PM [facility] REPOSITORY [facility] Medical Records Department [address] [place] [address] Instructions for Home/Discharge Instructions 09/08/17 1537 MR#: [id number] Acct: [id number] Name: VAHID WANG Rep #: [id number] : 2000 16 From: Diego Abdullahi MD PCP: Scott Braden MD Status: ADM IN You will use the following diet at home:: Calorie/Carbohydrate Controlled (specify 1200, 1400, etc) - 1800 brionna. Your food should be the consistency of: Regular Discharge Activity: Return to Normal Activity Weight Bearing Status: Full weight bearing Call your doctor if you observe: Fever of 101 or Higher, Shortness of breath, Dizziness, Fainting spells, Chest pain, Increased palpitations (irregular heartbeat), Uncontrolled pain Instructions: A1C, Using Injected Insulin, Using a Blood Sugar Log, Hyperglycemia (High Blood Sugar), Hypoglycemia (Low Blood Sugar), How to Check Your Blood Sugar Allergies/Adverse Reactions: Allergies No Known Allergies Allergy (Verified 08/14/17 14:59) Medications to take at Discharge insulin aspart U-100 100 unit/mL subcutaneous pen See Label Instructions SC QDAY 08/10/17 Ondansetron [Zofran Odt] 4 mg PO Q8H PRN PRN 09/07/17 Cyclobenzaprine [Flexeril] 10 mg PO TID PRN PRN 09/08/17 insulin glargine (U-100) 100 unit/mL (3 mL) subcutaneous pen 41 unit SC QHS #15 ml 09/08/17 Primary Care Physician: Scott Braden MD [Primary Care Provider] - Please follow up with your Primary Care Physician in: 1-2 weeks. Please Follow Up With: Ilda Chavez, [employer] E[employer]MENT SALES MANAGER-C When: This coming week. 09/08/17 1539 <Electronically signed by Diego Abdullahi MD> Date Diego Abdullahi MD CC: Scott Braden MD BEDSIDE GLUCOSE Collected: 09/08/2017 Status: F Source: [place] 11:14 AM [facility] REPOSITORY TYPE CODE TESTS RESULT OUT OF REFERENCE UNITS RANGE LAB L501.080 70-110 mg/dL High BEDSIDE GLU 265 Result Comment: MANAGEMENT OF PATIENT CARE PER NURSING PROTOCOL Performed By: #### L501.080 #### [facility] Point of Care [address] [place] [address] BEDSIDE GLUCOSE Collected: 09/08/2017 Status: F Source: [place] 10:01 AM [facility] REPOSITORY TYPE CODE TESTS RESULT OUT OF REFERENCE UNITS RANGE LAB L501.080 70-110 mg/dL High BEDSIDE GLU 183 Result Comment: MANAGEMENT OF PATIENT CARE PER NURSING PROTOCOL Performed By: #### L501.080 #### [facility] Point of Care [address] [place] [address] BEDSIDE GLUCOSE Collected: 09/08/2017 Status: F Source: [place] 7:18 AM [facility] REPOSITORY TYPE CODE TESTS RESULT OUT OF REFERENCE UNITS RANGE LAB L501.080 70-110 mg/dL High BEDSIDE GLU 166 Result Comment: MANAGEMENT OF PATIENT CARE PER NURSING PROTOCOL Performed By: #### L501.080 #### [facility] Point of Care [address] [place] [address] BEDSIDE GLUCOSE Collected: 09/08/2017 Status: F Source: [place] 6:07 AM [facility] REPOSITORY TYPE CODE TESTS RESULT OUT OF REFERENCE UNITS RANGE LAB L501.080 70-110 mg/dL Low alert BEDSIDE GLU 31 Result Comment: MANAGEMENT OF PATIENT CARE PER NURSING PROTOCOL Performed By: #### L501.080 #### [facility] Point of Care [address] [place] [address] BASIC METABOLIC Collected: 09/08/2017 Status: F Source: [place] PROFILE (BMP) 5:25 AM [facility] REPOSITORY TYPE CODE TESTS RESULT OUT OF RANGE REFERENCE UNITS LAB L501.0100 74-106 mg/dL Low GLU 70 Result Comment: Please note revised GLUCOSE reference range effective 2017. LAB L501.1000 7-18 mg/dL Normal BUN 10 LAB L501.1100 0.70-1.30 mg/dL Low CREAT,SERUM 0.56 Result Comment: The validity of the calculated GFR AND GFRAA in patients over 70 years has not been determined. Clinical correlation is essential. LAB L501.1110 >60 mL/min Normal EST GFR 202 Result Comment: Non- GFR Calc LAB L501.1115 >60 mL/min Normal EST GFR - AA 244 Result Comment: GFR Calc LAB L501.1255 ml/min Normal Estimated CRCL 188.17 LAB L501.1300 10-20 RATIO BUN/CRE Normal 18.0 LAB L501.2200 8.5-10 mg/dL Low .1 CA 8.1 LAB L501.5300 136-14 mmol/L 5 NA Normal 141 LAB L501.5600 3.5-5. mmol/L Low 1 K 3.3 Result Comment: Moderate Hemolysis, Result may be falsely increased. LAB L501.5900 98-107 mmol/L High CL 108 LAB L501.6100 21.0-32.0 mmol/L Normal CO2 25.0 LAB L501.6200 5-15 Normal 8 GAP Performed By: #### L500.2500 #### [facility] [address] [place], [address] BEDSIDE GLUCOSE Collected: 09/08/2017 Status: F Source: [place] 1:26 AM [facility] REPOSITORY TYPE CODE TESTS RESULT OUT OF REFERENCE UNITS RANGE LAB L501.080 70-110 mg/dL High BEDSIDE GLU 168 Result Comment: MANAGEMENT OF PATIENT CARE PER NURSING PROTOCOL Performed By: #### L501.080 #### [facility] Point of Care [address] [place] [address] HISTORY AND PHYSICAL Observed: 09/07/2017 Status: F Source: [place] 10:14 PM [facility] REPOSITORY [facility] Medical Records Department [address] [place] [address] History and Physical 09/07/176 MR#: [id number] Acct: [id number] Name: VAHID WANG Rep #: [id number] : 2000 16 From: Froylan Mccracken DO PCP: Scott Braden MD Status: ADM IN Y Location: [place] [address] Problem List (1) Elevated blood sugar level Status: Acute (2) Excessive thirst Status: Acute History of Present Illness Date of Admission: 09/07/17 Chief Complaint: Elevated blood sugar, thirst The patient is a 16 year old M who was seen in the emergency room at [facility] the chief complaint of elevated blood sugar and extreme thirst over the last 24 hours. Patient states that he has been checking his blood sugars at home and he is unable to get his blood sugars to come down. Patient has type 1 diabetes, he has been in the hospital here multiple times for DKA. Patient sees a nurse practitioner who specializes in diabetes but has been unable to get his blood sugar under control. Patient denies any febrile illness, dysuria, cough, chills, or other symptoms besides thirst. Evaluation in the emergency room included labs which showed a glucose of 709, sodium was 128, potassium was 5.4, anion gap was normal, patient's blood showed evidence of a small amount of acetone. Patient's white blood cell count was 5.5. It was felt that the patient was not truly in DKA, on my examination, patient did not appear acutely ill, and I felt that his elevated blood sugar and abnormal labs could be treated on PCU as a stepdown patient. I discussed this with the emergency room physician who also agreed. Patient was given IV fluids in the emergency room, he was given a dose of basal insulin and a dose of NovoLog, he will be admitted to PCU for uncontrolled type 2 diabetes and dehydration, every 4 hours BMPs will be obtained and aggressive fluid resuscitation will be given to the patient. His home insulin regimen will be adjusted and he will be placed on twice a day basal insulin as well as NovoLog with each meal. Past Medical History Past Medical History (Chronic Problems): Chronic Problems (Last Reviewed 08/14/17 @ 15:00 by Amanda Wilkinson) DM I (diabetes mellitus, type I), uncontrolled (Chronic) BG varied but not checked in a manner that shows his issues. Occ checks post correction and occ post meal. Does have a pattern of BG climbing from 6am to 12n. Will have him specifically check 2 hours after breakfast to see if this is a I/C ratio issue. Allergies No Known Allergies Allergy (Verified 08/14/17 14:59) Home Medications: Ambulatory Orders Medication Instructions Recorded insulin aspart U-100 100 unit/mL See Label Instructions SC QDAY 08/10/17 Surgical History: - - BL ear tubes. Psychiatric History: No pertinent psych hx Lives: With Family Smoking Status: Never smoker Tobacco Use: Non-smoker Alcohol: None Drugs: None - *Family History Maternal History Items: Heart Disease, Renal Disease Paternal History Items: Heart Disease, - - Paternal family males w/ frequent hearing disorder. Review of Systems Constitutional: Reports: - - Complains of thirst. Denies: Anorexia, Chills, Fever, Night Sweats, Malaise, Weakness, Weight Change, Fatigue Eyes: Denies: Blurred vision, Cataracts, Conjunctivae Inflammation, Double vision, Drainage HEENT: Denies: Difficulty Hearing, Difficulty Swallowing, Dysphasia, Ear Pain, Eye Pain, Head Aches, Hearing Changes, Nasal bleeding, Nasal Congestion, Post Nasal Drip Cardiovascular: Denies: Chest Pain, Claudication, Chest Pressure, Chest Tightness, Edema, Heaviness, Orthopnea, Palpitations, Paroxysmal Noc. Dyspnea Respiratory: Denies: Cough, Hemoptysis, Pleuritic Pain, Shortness of Breath, Shortness of breath at rest, Shortness of breath upon exertion, Sputum production, Wheezing Gastrointestinal: Denies: Abdominal Pain, Constipation, Diarrhea, Hematemesis, Hematochezia, Nausea, Melena, Vomiting Genitourinary: Denies: Dysuria, Frequency, Hematuria, Hesitancy, Incontinence, Nocturia, Urgency Musculoskeletal: Denies: Back Pain, Foot Pain, Hand Pain, Joint Pain, Joint stiffness, Joint swelling, Joint Tenderness, Leg Pain Skin: Denies: Dryness, Jaundice, Pruritis, Rash Neurological: Denies: Balance problems, Blurred vision, Double vision, Slurred speech, Difficulty swallowing, Focal weakness, Headaches, Incoordination, Numbness, Tingling Psychiatric: Denies: Anxiety, Depression, Homicidal Ideations, Suicidal Ideations Endocrine: Denies: Change in Body Habitus, Heat/ Cold Intolerance, Polydipsia, Polyuria Hematologic/ Lymphatic: Denies: Adenopathy, Anemia, Easy Bruising, Easy Bleeding, Petechiae, Purpura VTE Information - Inpt Only VTE Present on Admission: No VTE Mechan Device Prophylaxis: None VTE Pharm Prophylaxis ordered?: No Reason prophylaxis not ordered:: Treatment Not Indicated - low risk for VTE - Physical Exam General: Alert, Oriented x3, Cooperative, No apparent distress, Well developed, Well nourished HEENT: Atraumatic, PERRLA, EOMI, Normocephalic Oral: Dry Mucosa Neck: Supple, No JVD, No Nuchal Rigidity, Trachea Midline, Thyroid Normal Size and Texture Lungs: Clear to auscultation, Normal air movement, No rhonchi, No wheeze, No rales Cardiovascular: Regular rate, Regular Rhythm, Normal S1, Normal S2, No murmurs, No Ectopic Activity, PMI Normal Abdomen: Bowel Sounds Present, Soft, Non Tender, Non-Distended, No hernias noted Extremities: No clubbing, No cyanosis, No edema, Capillary Refill Less than 3 Seconds Skin: No rashes, No breakdown Musculoskeletal: No Tenderness to Palpation of Joints or Extremities Neurological: Cranial nerves II-XII grossly intact, Neuro grossly intact, Sensory exam intact to light touch and pain, Coordination normal Psych/Mental Status: Normal Affect, Appropriate, Alert and oriented to time, place, person, mood and affect Vital Signs Temp Pulse Resp BP Pulse Ox 98.0 F 95 12 148/86 H 97 09/07/17 20:58 09/07/17 20:58 09/07/17 20:58 09/07/17 20:58 09/07/17 20:58 Oxygen Delivery Method Room Air Weight: 62.188 kg Body Mass Index (BMI) 20.8 Intake and Output for Last 24 Hours Intake Total 2845 / 2845 Balance 2845 / 2845 Laboratory Tests Past 24 Hrs Sodium 136 140 Potassium 3.2 L 3.8 Chloride 102 107 Carbon Dioxide 14.0 L 20.0 L Anion Gap 20 H 13 BUN 16 11 Creatinine 1.24 1.02 POC Glucose POC Glucose 139 H 197 H 219 H POC Glucose 342 H Assessment/Plan #1 uncontrolled type 1 diabetes-again, I do not feel the patient is actually in DKA at this time, I will admit him to PCU under stepdown, do frequent monitoring of his blood sugar along with BMP's and give him vigorous fluid resuscitation. Patient will be placed on twice a day basal insulin, insulin with each meal, and will be covered with sliding scale insulin per protocol. I am not in favor of subjecting the patient to an ABG at this point, he does not appear toxic and I believe I can treat him on PCU. Patient's insulin regimen will have to be adjusted on his discharge from the hospital #2 dehydration secondary to #1-vigorous fluid resuscitation will be administered Code Visit Inpatient E AND M: 37561 Init Hosp L3 09/07/172213 <Electronically signed by Froylan Mccracken DO> Date Froylan Mccracken DO Cosign Signature: Date (if applicable) CC: Scott Braden MD; Froylan Mccracken DO Signed BEDSIDE GLUCOSE Collected: 09/07/2017 Status: F Source: [place] 9:03 PM [facility] REPOSITORY TYPE CODE TESTS RESULT OUT OF REFERENCE UNITS RANGE LAB L501.080 70-110 mg/dL High BEDSIDE GLU 139 Result Comment: MANAGEMENT OF PATIENT CARE PER NURSING PROTOCOL Performed By: #### L501.080 #### [facility] Point of Care [address] [place], [place] [address] [address] BASIC METABOLIC Collected: 09/07/2017 Status: F Source: [place] PROFILE (BMP) 7:20 PM [facility] REPOSITORY TYPE CODE TESTS RESULT OUT OF RANGE REFERENCE UNITS LAB L501.0100 74-106 mg/dL High GLU 208 Result Comment: Glucose result greater than or equal to 200 mg/dL suggests DIABETES MELLITUS per A.D.A. criteria. Please note revised GLUCOSE reference range effective 2017. LAB L501.1000 7-18 mg/dL Normal BUN 11 LAB L501.1100 0.70-1.30 mg/dL Normal CREAT,SERUM 1.02 Result Comment: The validity of the calculated GFR AND GFRAA in patients over 70 years has not been determined. Clinical correlation is essential. LAB L501.1110 >60 mL/min Normal EST GFR 100 Result Comment: Non- GFR Calc LAB L501.1115 >60 mL/min Normal EST GFR - AA 121 Result Comment: GFR Calc LAB L501.1255 ml/min Normal Estimated CRCL 103.31 LAB L501.1300 10-20 RATIO BUN/CRE Normal 10.8 LAB L501.2200 8.5-10 mg/dL Low .1 CA 7.5 LAB L501.5300 136-14 mmol/L 5 NA Normal 140 LAB L501.5600 3.5-5. mmol/L 1 K Normal 3.8 LAB L501.5900 98-107 mmol/L CL Normal 107 LAB L501.6100 21.0-3 mmol/L Low 2.0 CO2 20.0 LAB L501.6200 5-15 GAP Normal 13 Performed By: #### L500.2500 #### [facility] [address] [place], [address] BEDSIDE GLUCOSE Collected: 09/07/2017 Status: F Source: RIP 6:18 PM [facility] REPOSITORY TYPE CODE TESTS RESULT OUT OF REFERENCE UNITS RANGE LAB L501.080 70-110 mg/dL High BEDSIDE GLU 197 Result Comment: MANAGEMENT OF PATIENT CARE PER NURSING PROTOCOL Performed By: #### L501.080 #### [facility] Point of Care [address] [place] [address] BEDSIDE GLUCOSE Collected: 09/07/2017 Status: F Source: RIP 5:06 PM [facility] REPOSITORY TYPE CODE TESTS RESULT OUT OF REFERENCE UNITS RANGE LAB L501.080 70-110 mg/dL High BEDSIDE GLU 219 Result Comment: MANAGEMENT OF PATIENT CARE PER NURSING PROTOCOL Performed By: #### L501.080 #### [facility] Point of Care [address] [place] [address] BEDSIDE GLUCOSE Collected: 09/07/2017 Status: F Source: RIP 4:13 PM [facility] REPOSITORY TYPE CODE TESTS RESULT OUT OF REFERENCE UNITS RANGE LAB L501.080 70-110 mg/dL High BEDSIDE GLU 342 Result Comment: MANAGEMENT OF PATIENT CARE PER NURSING PROTOCOL Performed By: #### L501.080 #### [facility] Point of Care [address] [place] [address] BASIC METABOLIC Collected: 09/07/2017 Status: F Source: RIP PROFILE (BMP) 3:52 PM [facility] REPOSITORY TYPE CODE TESTS RESULT OUT OF RANGE REFERENCE UNITS LAB L501.0100 74-106 mg/dL High GLU 387 Result Comment: Glucose result greater than or equal to 200 mg/dL suggests DIABETES MELLITUS per A.D.A. criteria. Please note revised GLUCOSE reference range effective 2017. LAB L501.1000 7-18 mg/dL Normal BUN 16 LAB L501.1100 0.70-1.30 mg/dL Normal CREAT,SERUM 1.24 Result Comment: The validity of the calculated GFR AND GFRAA in patients over 70 years has not been determined. Clinical correlation is essential. LAB L501.1110 >60 mL/min Normal EST GFR 80 Result Comment: Non- GFR Calc LAB L501.1115 >60 mL/min Normal EST GFR - AA 97 Result Comment: GFR Calc LAB L501.1255 ml/min Normal Estimated CRCL 84.98 LAB L501.1300 10-20 RATIO Normal BUN/CRE 12.9 LAB L501.2200 8.5-10 mg/dL Low .1 CA 8.3 LAB L501.5300 136-14 mmol/L Normal 5 NA 136 LAB L501.5600 3.5-5. mmol/L Low 1 K 3.2 LAB L501.5900 98-107 mmol/L Normal CL 102 LAB L501.6100 21.0-3 mmol/L Low 2.0 CO2 14.0 LAB L501.6200 5-15 High GAP 20 Performed By: #### L500.2500 #### [facility] [address] [place] [place], [address] EMERGENCY DEPARTMENT Observed: 09/07/2017 Status: F Source: RIP SUMMARY 3:45 PM [facility] REPOSITORY [facility] Medical Records Department [address] [place] [address] Emergency Department Summary 09/07/17 1232 MR#: [id number] Acct: [id number] Name: VAHID WANG Rep #: [id number] : 2000 16 From: Charles Cortez MD PCP: Scott Braden MD Status: ADM IN - ER Visit Summary Date of Service: 09/07/17 Chief Complaint: Elevated blood sugars History of Present Illness: The patient is a 16 M E of type on insulin pen diabetes with multiple cases of prior DKA. He believes he was admitted to the hospital last month for DKA. States his blood sugars were elevated yesterday greater than 600. The kind of waxed and waned. Number again elevated today. He denies vomiting, diarrhea or fever. He denies dysuria. States he has been eating and drinking well. Physical Examination: Appearing looking young male. Vital signs are stable and afebrile. He does not look septic or toxic. He is in no acute distress currently. Pulse ox 96% on room air no signs of hypoxia. HEENT exam unremarkable. Neck nontender no lymphadenopathy. Lungs clear to auscultation bilaterally. Heart regular rhythm rate in the 80s no murmur. Chest wall nontender. Abdomen soft nontender. Normal bowel sounds. No peritoneal signs. He is moving all 4 extremities. Normal range of motion. Neurovascularly intact. Back exam normal. Skin exam normal. Neurologically he is awake and alert without focal motor deficits. Test Results: CBC normal with a white count of 5. Normal H AND H. BMP shows a sodium 128. Potassium of 5.4. Anion gap is 15 glucose is 709. Creatinine is 1.1. Serum ketones are small. Clinically the patient history and exam and labs are consistent with early DKA. Emergency Department Course and Treatment: Male with multiple prior histories of DKA. A bedside BG T read as high per nursing. Received a liter of fluid and be worked up for possible DKA. Treatment Plan: Given a second liter normal saline IV. Started on a insulin drip. And I will speak to the hospitalist about admission. Disposition: Patient Impression: Acute hyperglycemia with a history of type 1 insulin- dependent diabetes Acute early DKA This note was generated with Spritzation software. It may contain incorrect words, spelling, and punctuation that were not noted in review of the chart prior to signing ED Disposition - Plan for ED Patient: Chief Complaint: Hyperglycemia Referrals: Scott Braden MD [Primary Care Provider] - What to do if you have Problems For any increased pain, shortness of breath, bleeding, nausea or vomiting, chest pain, or any unexpected problems, contact your Primary Care Provider. Call [facility] ([phone]) or report to the closest Emergency Room. Call 911 if necessary. 09/07/17 1544 <Electronically signed by Charles Cortez MD> Date Charles Cortez MD Cosigner Signature (If Indicated): Date CC: Scott Braden MD BEDSIDE GLUCOSE Collected: 09/07/2017 Status: F Source: [place] 3:10 PM [facility] REPOSITORY TYPE CODE TESTS RESULT OUT OF REFERENCE UNITS RANGE LAB L501.080 70-110 mg/dL High alert BEDSIDE GLU 471 Result Comment: MANAGEMENT OF PATIENT CARE PER NURSING PROTOCOL Performed By: #### L501.080 #### [facility] Point of Care [address] [place] [address] CBC W/DIFF, AUTOMATED Collected: 09/07/2017 Status: F Source: [place] 12:10 PM [facility] REPOSITORY TYPE CODE TESTS RESULT OUT OF RANGE REFERENCE UNITS LAB L100.1000 4.4-11.0 K/mm3 Normal WBC 5.5 LAB L100.1200 4.6-6.2 M/mm3 Normal RBC 5.07 LAB L100.1300 13.0-16.5 g/dl Normal HGB 15.6 LAB L100.1400 40-54 % Normal HCT 45.5 LAB L100.1500 80-94 fL Normal MCV 89.7 LAB L100.1600 27.0-32.0 pg Normal MCH 30.8 LAB L100.1700 32-36 g/gl Normal MCHC 34.3 LAB L100.1810 11.6-14.6 % Normal RDW CV 12.0 LAB L100.1820 35.1-43.9 fl Normal RDW SD 38.7 LAB L100.1900 150-450 K/mm3 Normal PLT 282 LAB L100.2000 6.2-12.0 fl Normal MPV 9.9 LAB L100.2100 47-70 % Normal NEUT% 53.4 LAB L100.2200 19-41 % Normal LY% 31.7 LAB L100.2300 0-10 % Normal MONO% 9.7 LAB L100.2400 0-5 % Normal EO% 3.8 LAB L100.2500 0-1 % Normal BASO% 0.7 LAB L100.2550 0.0-0.9 % Normal IM GRAN % 0.700 Result Comment: IG% - Immature Granulocytes (promyelocytes, myelocytes and metamyelocytes) > 1% indicates that a LEFT SHIFT is Present. LAB L100.2620 2.0-7.7 X10 3/uL Normal Absolute Neut 2.9 LAB L100.2720 0.83-4.51 X10 3/ul Normal Absolute Lymph 1.73 Performed By: #### L100.0100 #### [facility] [address] [place], [place], [address] ACETONE SERUM Collected: 09/07/2017 Status: F Source: [place] 12:10 PM [facility] REPOSITORY TYPE CODE TESTS RESULT OUT OF REFERENCE UNITS RANGE LAB L501.6900 NEG High ACETONE SERUM SMALL Performed By: #### L501.6900 #### [facility] [address] [place], [address] BASIC METABOLIC Collected: 09/07/2017 Status: F Source: [place] PROFILE (BMP) 12:10 PM [facility] REPOSITORY TYPE CODE TESTS RESULT OUT OF RANGE REFERENCE UNITS LAB L501.0100 74-106 mg/dL High alert GLU 709 Result Comment: Critical Result(s) Called at: 13:04:46 09/07/2017 by: Zaria Man Glucose result greater than or equal to 200 mg/dL suggests DIABETES MELLITUS per A.D.A. criteria. Please note revised GLUCOSE reference range effective 2017. LAB L501.1000 7-18 mg/dL Normal BUN 17 LAB L501.1100 0.70-1.30 mg/dL Normal CREAT,SERUM 1.19 Result Comment: The validity of the calculated GFR AND GFRAA in patients over 70 years has not been determined. Clinical correlation is essential. LAB L501.1110 >60 mL/min Normal EST GFR 84 Result Comment: Non- GFR Calc LAB L501.1115 >60 mL/min Normal EST GFR - AA 102 Result Comment: GFR Calc LAB L501.1255 ml/min Normal Estimated CRCL 89.14 LAB L501.1300 10-20 RATIO Normal BUN/CRE 14.3 LAB L501.2200 8.5-10 mg/dL Normal .1 CA 8.8 LAB L501.5300 136-14 mmol/L Low 5 NA 128 LAB L501.5600 3.5-5. mmol/L High 1 K 5.4 LAB L501.5900 98-107 mmol/L Low CL 92 LAB L501.6100 21.0-3 mmol/L Normal 2.0 CO2 21.0 LAB L501.6200 5-15 Normal GAP 15 Performed By: #### L500.2500 #### [facility] [address] [place], [place], [address] BEDSIDE GLUCOSE Collected: 09/07/2017 Status: F Source: [place] 12:03 PM [facility] REPOSITORY TYPE CODE TESTS RESULT OUT OF REFERENCE UNITS RANGE LAB L501.080 70-110 mg/dL High alert BEDSIDE GLU > 500 Result Comment: Dr Delvalle Followed MANAGEMENT OF PATIENT CARE PER NURSING PROTOCOL Performed By: #### L501.080 #### [facility] Point of Care [address] [place] [address] PROGRESS Observed: 09/01/2017 Status: COMPLETED Source: [place] 8:56 AM [facility] [place] REPOSITORY HNO ID: [id number] Author: Scott Braden Service: (none) Author Type: Physician Type: Progress Notes Filed: 09/01/2017 9:28 AM Note Text: CC: Patient presents with: clavicle pain: right clavicle pain started on Monday, hurts to move, write and when someone touches it. Did have a fx right clavicle in 2017 per pt No known new injury. Has been using tylenol History: Vahid Wang presents with pain in the right shoulder. Symptoms began 4 day(s) and since then have been intermittent. The pain is rated as 7 on a scale of 1-10. Symptoms are not a result of an injury., occurred after playing video games and sleeping on a couch no radiation , no neuro sx PAST MEDICAL HISTORY Diagnosis Date - Attention deficit disorder with hyperactivity(314.01) - Conduct disorder, childhood onset type - Foot fracture, right growth plate involved - Fracture of clavicle, right, closed 2016 - Generalized convulsive epilepsy without mention of intractable epilepsy - Other abnormal heart sounds normal echocardiogram. Holter monitor that - Right wrist fracture - Sensorineural hearing loss, unspecified - Type I (juvenile type) diabetes mellitus without mention of complication, not stated as uncontrolled 05/19 - Unspecified viral meningitis Physical Exam: General: alert and active in no apparent distress Neck: pain with rotation and palpation R side of neck Musculoskeletal: pain in ROM of R shoulder. full internal and extrernal rotatiion. 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 some pain with supinationnad pronation of forarm. significant discomfort with adduction, abduction, flextion and extension of shoulder. TTP over deltoid and trap muscles. Neurologic : Muscle tone normal, Cranial nerves II-XII grossly intact, Reflexes symmetrical and No involuntary motions. Assessment: Muscle pain (primary encounter diagnosis) Plan: rest, apply ice, ibuprofen or other pain medications and heating pad and flexeril prn Scott Braden MD ENDOCRINOLOGY VISIT Observed: 08/17/2017 Status: F Source: [place] REPORT 8:40 AM [facility] REPOSITORY [facility] [address] [place] [address]. [address] [place] [address] OFFICE VISIT Date of Service: 08/14/17 MR#: [id number] Acct: [id number] Name: VAHID WANG Rep #: [id number] : 2000 Provider: Ilda Chavez NP Age/Sex: 16/M Location: [facility] Status: Signed HPI History of present illness Vahid Wang is an 16 year old male who presents for follow up of diabetes type 1, accompanied by his grandmother. Diagnosed at age 2 with diabetes. 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 Had moved in with a friend for awhile and had several visits to ER and had DKA at least twice. Is now moving back into his grandmother's home. Taking lantus 33 units daily and using meal insulin I/C ratio of 7. ISF=40. Pt denies difficulty with injections or self monitoring of BG. Denies any signs of infection or irritation at site of injections. Reports taking insulin as directed with occ missed doses. At time of visit: -Pt denies symptoms of hypertensive emergency (CP,SOB,HAWKINS, or blurred vision) and hypotension(dizziness or lightheadedness) -Pt denies symptoms of hypoglycemia ( sweaty, confusion, anxiety, tremor, hunger, palpitations) and hyperglycemia ( polydipsia, polyuria) -Pt denies potential medication adverse effect. Hypoglycemia Aware of hypoglycemia: yes Able to self treat low BG: Yes Frequent low Blood sugar: No Has supply of glucagon: Yes Since our last visit he denies excessive thirst, increased frequency of urination, chest pain or dyspnea. Follows a regular diet, Is tolerating without side effects. SMBG 3-6 BG checks daily 40-400 BG BG rises significantly in morning hours after waking. Weight and fatigue symptoms: Denies snoring Cardiopulmonary symptoms: Denies chest pain at rest, dyspnea on exertion, lightheadedness or myalgias GI symptoms: Denies constipation, diarrhea, nausea/dyspepsia or vomiting Skin and extremity symptoms: Denies erectile dysfunction Other symptoms: Denies blurry vision or change in vision Pertinent visit history: Reports recent visit to ER Self monitoring: Yes Glucometer type: freestyle Exam Const General: comfortable, no acute distress Nutritional Appearance: average body habitus Orientation: oriented x3 HENMT Head: normal to inspection, atraumatic Ears: hearing grossly impaired Nose: no nasal discharge Mouth: oral mucosae normal, moist mucous membranes Teeth and gingiva: dentition normal Eyes General: appearance normal, both eyes and all related structures Conjunctivae: conjunctivae normal Sclera: sclerae normal Pupils: PERRL Chest Chest palpation AND inspection: deferred Resp Effort AND Inspection: normal respiratory effort, able to speak in complete sentences, symmetric chest movement Auscultation: Bilateral: Clear to Auscultation Cardio Rate: regular rate Rhythm: regular rhythm Heart Sounds: S1 normal, S2 normal GI Inspection: normal to inspection Auscultation: normal bowel sounds Palpation: soft Skin General: no rashes or lesions noted Wounds: no wounds Diabetic Foot Pulses: L dorsalis pedis pulse: normal, R dorsalis pedis pulse: normal Monofilament test: Left foot: normal, Right foot: normal Neuro General: oriented x3, gait normal Sensory Exam: no sensory deficits noted Extrem General: normal to inspection, full ROM, normal capillary refill, no pedal edema Psych Appearance: well kempt Affect: normal affect Thought Content: normal Judgment: fair Intake Vital Signs08/14/17 Height 5 ft 8 in 08/14/17 Weight: 139 lb 2 oz 08/14/17 Body Mass Index (BMI) 21.1 08/14/17 Blood Pressure 126/78 08/14/17 Blood Pressure Location Lt popliteal 08/14/17 Blood Pressure Position Sitting Intake 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 Accompanied by: Grandmother Is patient in pain?: No Allergies No Known Allergies Allergy (Verified 08/14/17 14:59) Medications acetone (urine) test strips See Dose Instructions .ROUTE .MEDSUPPLY #25 ea 08/10/17 [History Confirmed 08/10/17] insulin aspart 100 unit/mL subcutaneous pen See Label Instructions SC QDAY 08/10/17 [History Confirmed 08/10/17] insulin glargine 100 unit/mL (3 mL) subcutaneous pen 40 unit SC QHS ml 08/10/17 [History Confirmed 08/10/17] pen needle, diabetic 31 gauge x 3/16 See Dose Instructions .ROUTE .MEDSUPPLY #30 ea 08/10/17 [History Confirmed 08/10/17] FreeStyle Lite Strips See Dose Instructions .ROUTE .MEDSUPPLY #200 ea NS 08/16/17 [Rx] Nurse's Note: diabetes type 1 dx : age 2 last exacerbation : dka : 08/03 hypoglycemic episode : never er visit : 08/03 blood sugars : [facility] : [facility] History Anxiety disorder (Acute) Back problem (Acute) Bone fracture (Acute) Diabetes type 1, uncontrolled (Acute) Hearing problem (Acute) Liver disease (Acute) Seizure (Acute) Vision problem (Acute) Surgical History S/p bilateral myringotomy with tube placement (Acute) Family History Mother Kidney disease Social History Smoking Status: Never smoker second hand exposure: No alcohol intake: never substance use type: does not use ROS Const Constitutional: No anorexia, body ache, chills, fatigue, fever(s), frequent falls, decreased energy, malaise, night sweats, weakness, weight change, sleep problems, abnormal sleep pattern, change in appetite, other, headache(s), snoring or excessive sweating Eyes Eyes: No blurry vision, change in vision, double vision, discharge, dry eyes, bulging eyes, floaters, visual disturbances, eye pain, light sensitivity, spots in vision, tunnel vision or other ENT ENT: No abnormal hearing, ear pain, ear discharge, ear pressure, hearing loss, tinnitus, dizziness/vertigo, balance problems, nosebleed/epistaxis, nasal congestion, nasal obstruction, nose pain, sinus pressure, sinus pain, nasal discharge, post nasal drip, headache(s), facial pain, dental pain, dry mouth, bad breath, hoarseness, lip swelling, mouth lesions, mouth pain, sore throat, tongue swelling, throat swelling, other, difficulty swallowing or neck pain Resp Respiratory: No cough, change in phlegm color, chest congestion, excessive phlegm production, hemoptysis, pain on inspiration, shortness of breath, pain with cough, snoring, stridor, wheezing or other Cardio Cardiology: No chest pain at rest, chest pain with exertion, leg pain with exertion, excessive sweating, shortness of breath, dyspnea on exertion, generalized swelling, irregular heart rhythm, lightheadedness, orthopnea, radiating jaw, neck or arm pain, fast heart rate, slow heart rate, palpitations or other Gastro GI: No abdominal pain, belching, bloating, change in bowel habits, change in stool character, coffee ground emesis, constipation, cramping, diarrhea, heartburn, difficulty swallowing, feeling full early, excessive flatus, incontinent of stools, Vomiting blood/hematemesis, blood in stool, loose stools, Black,tarry stools, nausea/dyspepsia, pain with swallowing, vomiting or other Genitourinary Male: No difficulty urinating, burning urination, painful urination, urinary incontinence, urinary frequency, urinary urgency, urinary hesitancy, urinary retention, blood in urine, Frequent nighttime urination/ nocturia, post void dribbling, suprapubic fullness, side pain, sexual problems, genital lesions, genital itching, erectile dysfunction, penile discharge, difficulty with ejaculations, blood in semen, scrotal swelling, testicle lump, testicle pain or other Musc Musculoskeletal: No abnormal walking, joint pain, back pain, deformity, joint swelling, limited range of motion, loss of height, muscle cramps, muscle weakness, decreased muscle mass, body aches, neck pain, numbness, radiating pain into limb, stiffness, tingling or other Neuro Neurology: No frequent falls, weakness, visual disturbances, abnormal hearing, headache(s), abnormal walking, numbness or tingling Psych Psychiatric: No abnormal sleep pattern, No change in appetite Endo Endocrine: No fatigue, other or excessive sweating Aller/Imm Allergy/Immunologic: No lip swelling, tongue swelling, throat swelling or wheezing Assessment AND Plan Problems 1. Uncontrolled type 1 diabetes mellitus with hyperglycemia E10.65 Plan 1. Please schedule follow up in 3 months. 2. Lab work one week before appointment. 3. Discussed importance of regular exercise and recommend starting or continuing a regular exercise program for good health. 4. The patient was encouraged to lose weight for good health 5. The importance of monitoring blood sugar regularly was reviewed. 6. The importance of monitoring the HBA1c level regularly was reviewed. 7. The importance of prper foot care and regularly checking feet to prevent sores and loss of limbs was reviewed. 8. The importance of keeping BP at or below 130/80 to prevent stroke, heart attacks, kidney failure, blindness was reviewed. Spent approximately 45 minutes with patient with over 50% of time spent in discussion and counseling regarding medication adjustment, symptoms and treatment of hypoglycemia, diet adherence, and checking BG before driving. Orders Orders: Medications Discontinued: Coding Level of Care Code Off vis,est,level 4 Diagnoses Uncontrolled type 1 diabetes mellitus with hyperglycemia E10.65 Diabetes mellitus complication status: with hyperglycemia Time Spent (min) 45 08/17/17 0840 <Electronically signed by Ilda COTTO> Date Ilda Chavez MESFINJose Perea Signature: Date (if applicable) CC: 12 LEAD ELECTROCARDIOGRAM Observed: 08/09/2017 Status: F Source: RIP 11:22 AM [facility] Cardiovascular Services [address] [place] [address] 12 Lead EKG 08/04/17 0030 MR#: [id number] Acct: [id number] Name: VAHID WANG Rep #: [id number] : 2000 16 From: Chuck Walker MD Attending Dr: Pranay Solitario MD Status: DIS IN Ordering Dr: Mei Polk Date: 08/03/17 Location: [facility] Sex: M C Admitted: 08/03/17 Test Reason : RHYTHM CHANGE Blood Pressure : / mmHG Vent. Rate : 093 BPM Atrial Rate : 093 BPM P-R Int : 130 ms QRS Dur : 088 ms QT Int : 336 ms P-R-T Axes : 058 021 064 degrees QTc Int : 417 ms Normal sinus rhythm Nonspecific T wave abnormality Abnormal ECG Confirmed by RONALD OLMEDO, CHUCK ([id number]), assistant editor CHRISSIE CACERES ([id number]) on 08/09/2017 11:22:12 AM Referred By: FELICITAS Confirmed By:CHUCK WALKER MD 08/09/171121 Date Chuck Walker MD CC: Scott Braden MD Signed 12 LEAD ELECTROCARDIOGRAM Observed: 08/09/2017 Status: F Source: RIP 11:21 AM [facility] Cardiovascular Services [address] [place] [address] 12 Lead EKG 08/04/17 0547 MR#: [id number] Acct: [id number] Name: VAHID WANG Rep #: [id number] : 2000 16 From: Chuck Walker MD Attending Dr: Pranay Solitario MD Status: DIS IN Ordering Dr: Mei Polk Date: 08/04/17 Location: [facility] Sex: M C Admitted: 08/03/17 Test Reason : AM EKG Blood Pressure : / mmHG Vent. Rate : 076 BPM Atrial Rate : 076 BPM P-R Int : 148 ms QRS Dur : 092 ms QT Int : 390 ms P-R-T Axes : 055 022 030 degrees QTc Int : 438 ms Normal sinus rhythm Nonspecific ST and T wave abnormality Abnormal ECG Confirmed by RONALD OLMEDO, CHUCK ([id number]), assistant editor CHRISSIE CACERES ([id number]) on 08/09/2017 11:21:26 AM Referred By: CHRISSY Confirmed By:CHUCK WALKER MD 08/09/17 1121 Date Chuck Walker MD CC: Scott Braden MD Signed BEDSIDE GLUCOSE Collected: 08/05/2017 Status: F Source: RIP 11:08 AM [facility] REPOSITORY TYPE CODE TESTS RESULT OUT OF REFERENCE UNITS RANGE LAB L501.080 70-110 mg/dL High alert BEDSIDE GLU 468 Result Comment: Orders Followed MANAGEMENT OF PATIENT CARE PER NURSING PROTOCOL Performed By: #### L501.080 #### [facility] Point of Care [address] [place] [address] DISCHARGE SUMMARY Observed: 08/05/2017 Status: F Source: RIP 9:24 AM [facility] REPOSITORY [facility] Medical Records Department [address] [place] [address] Discharge Summary 08/05/17 0922 MR#: [id number] Acct: [id number] Name: VAHID WANG Rep #: [id number] : 2000 16 From: Pranay Solitario MD PCP: Scott Braden MD Status: ADM IN Y Location: [facility] [id number] Discharge Date and Diagnosis Date of Admission: 08/03/17 Date of Discharge: 08/05/17 - Primary Discharge Diagnosis DKA - Secondary Discharge Diagnosis Chronic Problems DM I (diabetes mellitus, type I), uncontrolled (Chronic) Hospital Course and Treatment Operations: None Summary of Care Provided: Patient is an 16-year-old gentleman with past medical history significant for diabetes mellitus type 1 presented with elevated blood glucose associated with nausea vomiting and progressive weakness assessment of diabetic ketoacidosis made and admission admitted to the intensive care unit for further management 1. Diabetic ketoacidosis: admitted to the intensive care unit managed with aggressive IV fluid resuscitation and IV insulin with correction of electrolyte abnormalities. Patient DKA did resolve. Was discharged home with adjustment of his basal insulin from 35 units to 40 units. 2. Hyponatremia secondary to pseudohyponatremia; improved with correction of patient hyperglycemia 3. Suspected acute viral syndrome requested for influenza assay came back negative 4. GERD on PPI 5. DVT prophylaxis; Lovenox 6. Chest pain with EKG changes attributed to patient electrolytes imbalance resolved 7. Hypokalemia corrected report Home Medications: Medications to take at Discharge Insulin Aspart [Novolog Flexpen] See Protocol SC ACHS 05/10/16 Insulin Glargine,Hum.rec.anlog [Basaglar Kwikpen U-100] 40 unit SQ QHS #0 08/05/17 Primary Care Physician: Scott Braden MD [Primary Care Provider] - Please follow up with your Primary Care Physician in: IN 1- 2 WEEKS Please Follow Up With: Ilda Chavez [employer]AV[employer] EQUIPMENT SALES MANAGER-C When: IN 3-5 DAYS Disposition: Home Minutes spent on discharge:: 35 Patient Condition:: Stable Meaningful Use Info Meaningful Use Diagnoses (Choose all that apply): None applicable Code Visit Inpatient E AND M: 87468 Disch Hosp 08/05/17 0924 <Electronically signed by Pranay Solitario MD> Date Pranay Solitario MD Cosigner Signature (if applicable): Date CC: Scott Braden MD; Pranay Solitario MD Signed DISCHARGE INSTRUCTION Observed: 08/05/2017 Status: F Source: RIP 9:22 AM [facility] REPOSITORY [facility] Medical Records Department [address] [place] [address] Instructions for Home/Discharge Instructions 08/05/17919 MR#: [id number] Acct: [id number] Name: VAHID WANG Rep #: [id number] : 2000 16 From: Pranay Solitario MD PCP: Scott Braden MD Status: ADM IN You will use the following diet at home:: Calorie/Carbohydrate Controlled (specify 1200, 1400, etc) - 1800 Allergies/Adverse Reactions: Allergies No Known Allergies Allergy (Verified 08/03/17 10:09) Medications to take at Discharge Insulin Aspart [Novolog Flexpen] See Protocol [facility] 05/10/16 Insulin Glargine,Hum.rec.anlog [Basaglar Kwikpen U-100] 40 unit SQ QHS #0 08/05/17 Primary Care Physician: Scott Braden MD [Primary Care Provider] - Please follow up with your Primary Care Physician in: IN 1- 2 WEEKS Please Follow Up With: Ilda Chavez NP-C When: IN 3-5 DAYS Proposed Discharge Date: 08/05/17 08/05/17921 <Electronically signed by Pranay Solitario MD> Date Pranay Solitario MD CC: Scott Braden MD BEDSIDE GLUCOSE Collected: 08/05/2017 Status: F Source: RPI 6:53 AM [facility] REPOSITORY TYPE CODE TESTS RESULT OUT OF REFERENCE UNITS RANGE LAB L501.080 70-110 mg/dL High BEDSIDE GLU 133 Result Comment: MANAGEMENT OF PATIENT CARE PER NURSING PROTOCOL Performed By: #### L501.080 #### [facility] Point of Care [address] [place] [address] BEDSIDE GLUCOSE Collected: 08/04/2017 Status: F Source: RIP 9:46 PM [facility] REPOSITORY TYPE CODE TESTS RESULT OUT OF REFERENCE UNITS RANGE LAB L501.080 70-110 mg/dL High BEDSIDE GLU 209 Result Comment: MANAGEMENT OF PATIENT CARE PER NURSING PROTOCOL Performed By: #### L501.080 #### [facility] Point of Care [address] [place] [address] BEDSIDE GLUCOSE Collected: 08/04/2017 Status: F Source: RIP 4:50 PM [facility] REPOSITORY TYPE CODE TESTS RESULT OUT OF REFERENCE UNITS RANGE LAB L501.080 70-110 mg/dL High alert BEDSIDE GLU 464 Result Comment: Insulin Given MANAGEMENT OF PATIENT CARE PER NURSING PROTOCOL Performed By: #### L501.080 #### [facility] Point of Care [address] [place] [address] BASIC METABOLIC Collected: 08/04/2017 Status: F Source: RIP PROFILE (BMP) 12:45 PM [facility] REPOSITORY Order Comment: SPECIMEN IS MARKEDLY LIPEMIC. Comments: Call MD with results STAT 'TROP' Serial specimen #1, #2, #3, or #4: 4 TYPE CODE TESTS RESULT OUT OF RANGE REFERENCE UNITS LAB L501.0100 70-110 mg/dL High GLU 312 Result Comment: Moderate Lipemia, Result may be falsely increased. Glucose result greater than or equal to 200 mg/dL suggests DIABETES MELLITUS per A.D.A. criteria. LAB L501.1000 7-18 mg/dL Normal BUN 10 LAB L501.1100 0.70-1.30 mg/dL Normal CREAT,SERUM 1.00 Result Comment: The validity of the calculated GFR AND GFRAA in patients over 70 years has not been determined. Clinical correlation is essential. LAB L501.1110 >60 mL/min Normal EST GFR 103 Result Comment: Non- GFR Calc LAB L501.1115 >60 mL/min Normal EST GFR - AA 124 Result Comment: GFR Calc LAB L501.1255 ml/min Normal Estimated CRCL 107.43 LAB L501.1300 10-20 RATIO BUN/CRE Normal 10.0 LAB L501.2200 8.5-10 mg/dL Low .1 CA 7.9 Result Comment: Moderate Lipemia, Result may be falsely decreased. LAB L501.5300 136-145 mmol/L Normal NA 136 LAB L501.5600 3.5-5.1 mmol/L Normal K 4.8 Result Comment: Moderate Hemolysis, Result may be falsely increased. LAB L501.5900 98-107 mmol/L Normal CL 104 LAB L501.6100 21.0-32.0 mmol/L Low CO2 20.0 LAB L501.6200 5-15 Normal GAP 12 Performed By: #### L500.2500, L501.4010 #### [facility] [address] [place], [address] TROPONIN-I Collected: 08/04/2017 Status: F Source: RIP 12:45 PM [facility] REPOSITORY Order Comment: SPECIMEN IS MARKEDLY LIPEMIC. Comments: Call MD with results STAT 'TROP' Serial specimen #1, #2, #3, or #4: 4 TYPE CODE TESTS RESULT OUT OF RANGE REFERENCE UNITS LAB L501.4010 <0.06 ng/mL Normal < 0.02 TROPONIN-I Result Comment: TROPONIN-I EXPECTED VALUES <0.05 NEGATIVE 0.06 - 0.59 AT RISK OF NE > OR = 0.60 SUGGEST NE Performed By: #### L500.2500, L501.4010 #### [facility] [address] [place], [address] BEDSIDE GLUCOSE Collected: 08/04/2017 Status: F Source: RIP 11:32 AM [facility] REPOSITORY TYPE CODE TESTS RESULT OUT OF REFERENCE UNITS RANGE LAB L501.080 70-110 mg/dL High BEDSIDE GLU 256 Result Comment: Insulin Given MANAGEMENT OF PATIENT CARE PER NURSING PROTOCOL Performed By: #### L501.080 #### [facility] Point of Care [address] [place] [address] BEDSIDE GLUCOSE Collected: 08/04/2017 Status: F Source: RIP 8:02 AM [facility] REPOSITORY TYPE CODE TESTS RESULT OUT OF RANGE REFERENCE UNITS LAB L501.080 70-110 mg/dL Normal BEDSIDE GLU 78 Result Comment: Snack Given MANAGEMENT OF PATIENT CARE PER NURSING PROTOCOL Performed By: #### L501.080 #### [facility] Point of Care [address] [place] [address] CBC W/DIFF, AUTOMATED Collected: 08/04/2017 Status: F Source: RIP 6:45 AM [facility] REPOSITORY TYPE CODE TESTS RESULT OUT OF RANGE REFERENCE UNITS LAB L100.1000 4.4-11.0 K/mm3 Normal WBC 6.7 LAB L100.1200 4.6-6.2 M/mm3 Low RBC 4.49 LAB L100.1300 13.0-16.5 g/dl Normal HGB 13.8 LAB L100.1400 40-54 % Normal HCT 41.1 LAB L100.1500 80-94 fL Normal MCV 91.5 LAB L100.1600 27.0-32.0 pg Normal MCH 30.7 LAB L100.1700 32-36 g/gl Normal MCHC 33.6 LAB L100.1810 11.6-14.6 % Normal RDW CV 12.2 LAB L100.1820 35.1-43.9 fl Normal RDW SD 40.2 LAB L100.1900 150-450 K/mm3 Normal PLT 280 LAB L100.2000 6.2-12.0 fl Normal MPV 9.3 LAB L100.2100 47-70 % Low NEUT% 39.4 LAB L100.2200 19-41 % High LY% 46.5 LAB L100.2300 0-10 % Normal MONO% 6.9 LAB L100.2400 0-5 % High EO% 6.3 LAB L100.2500 0-1 % Normal BASO% 0.3 LAB L100.2550 0.0-0.9 % Normal IM GRAN % 0.600 Result Comment: IG% - Immature Granulocytes (promyelocytes, myelocytes and metamyelocytes) > 1% indicates that a LEFT SHIFT is Present. LAB L100.2620 2.0-7.7 X10 3/uL Normal Absolute Neut 2.6 LAB L100.2720 0.83-4.51 X10 3/ul Normal Absolute Lymph 3.09 Performed By: #### L100.0100 #### [facility] [place], [address] BASIC METABOLIC Collected: 08/04/2017 Status: F Source: RIP PROFILE (BMP) 6:45 AM [facility] REPOSITORY Order Comment: Comments: Call MD with results STAT TYPE CODE TESTS RESULT OUT OF RANGE REFERENCE UNITS LAB L501.0100 70-110 mg/dL High GLU 115 Result Comment: Fasting Glucose result from 110 to <126 mg/dL suggests IMPAIRED HOMEOSTASIS per A.D.A. criteria. LAB L501.1000 7-18 mg/dL Normal BUN 8 LAB L501.1100 0.70-1.30 mg/dL Low CREAT,SERUM 0.64 Result Comment: The validity of the calculated GFR AND GFRAA in patients over 70 years has not been determined. Clinical correlation is essential. LAB L501.1110 >60 mL/min Normal EST GFR 172 Result Comment: Non- GFR Calc LAB L501.1115 >60 mL/min Normal EST GFR - AA 208 Result Comment: GFR Calc LAB L501.1255 ml/min Normal Estimated CRCL 167.86 LAB L501.1300 10-20 RATIO BUN/CRE Normal 12.5 LAB L501.2200 8.5-10 mg/dL Low .1 CA 8.4 LAB L501.5300 136-14 mmol/L 5 NA Normal 141 LAB L501.5600 3.5-5. mmol/L Low 1 K 3.4 LAB L501.5900 98-107 mmol/L High CL 111 LAB L501.6100 21.0-3 mmol/L 2.0 CO2 Normal 23.0 LAB L501.6200 5-15 GAP Normal 7 Performed By: #### L500.2500, L500.4100 #### [facility] [address] [place], [place], [address] LIPID PROFILE Collected: 08/04/2017 Status: F Source: [place] 6:45 AM [facility] REPOSITORY Order Comment: Comments: Call MD with results STAT TYPE CODE TESTS RESULT OUT OF RANGE REFERENCE UNITS LAB L501.4900 200 mg/dL Normal CHOL 186 Result Comment: <200 mg/dL Desirable 200-240 mg/dL Borderline >240 mg/dL High Risk LAB L501.5000 mg/dL High TRIG 991 Result Comment: The drugs N-Acetylcysteine and Metamizole may falsely depress this assay. TRIGLYCERIDE IS GREATER THAN 400 mg/dL. LDL RESULT IS INVALID AND WILL NOT BE REPORTED. Serum Triglycerides Reference Interval Normal <150 mg/dL Borderline high 150 - 199 mg/dL High 200 - 499 mg/dL Very High > or = 500 mg/dL LAB L501.6400 mg/dL Low HDL 11 Result Comment: The drugs N-Acetylcysteine and Metamizole may falsely depress this assay. Reference Range HDL <40 mg/dL Low HDL Cholesterol HDL >or= 60 mg/dL High HDL Cholesterol LAB L501.6500 0-130 mg/dL Test Normal not performed LDL LAB L501.6600 5-40 mg/dL Test Normal not performed VLDL Performed By: #### L500.2500, L500.4100 #### [facility] [address] [place], [address] TROPONIN-I Collected: 08/04/2017 Status: F Source: [place] 6:45 AM [facility] REPOSITORY Order Comment: 'TROP' Serial specimen #1, #2, #3, or #4: 3 TYPE CODE TESTS RESULT OUT OF RANGE REFERENCE UNITS LAB L501.4010 <0.06 ng/mL Normal < 0.02 TROPONIN-I Result Comment: TROPONIN-I EXPECTED VALUES <0.05 NEGATIVE 0.06 - 0.59 AT RISK OF NE > OR = 0.60 SUGGEST NE Performed By: #### L501.4010 #### [facility] [address] [place], [address] BEDSIDE GLUCOSE Collected: 08/04/2017 Status: F Source: [place] 6:40 AM [facility] REPOSITORY TYPE CODE TESTS RESULT OUT OF RANGE REFERENCE UNITS LAB L501.080 70-110 mg/dL Normal BEDSIDE GLU 109 Result Comment: MANAGEMENT OF PATIENT CARE PER NURSING PROTOCOL Performed By: #### L501.080 #### [facility] Point of Care [address] [place] [address] TROPONIN-I Collected: 08/04/2017 Status: F Source: [place] 2:50 AM [facility] REPOSITORY Order Comment: 'TROP' Serial specimen #1, #2, #3, or #4: 2 TYPE CODE TESTS RESULT OUT OF RANGE REFERENCE UNITS LAB L501.4010 <0.06 ng/mL Normal < 0.02 TROPONIN-I Result Comment: TROPONIN-I EXPECTED VALUES <0.05 NEGATIVE 0.06 - 0.59 AT RISK OF NE > OR = 0.60 SUGGEST NE Performed By: #### L501.4010 #### [facility] [address] [place], [address] BEDSIDE GLUCOSE Collected: 08/04/2017 Status: F Source: RIP 12:55 AM [facility] REPOSITORY TYPE CODE TESTS RESULT OUT OF REFERENCE UNITS RANGE LAB L501.080 70-110 mg/dL High BEDSIDE GLU 181 Result Comment: MANAGEMENT OF PATIENT CARE PER NURSING PROTOCOL Performed By: #### L501.080 #### [facility] Point of Care [address] [place] [address] BEDSIDE GLUCOSE Collected: 08/03/2017 Status: F Source: RIP 11:07 PM [facility] REPOSITORY TYPE CODE TESTS RESULT OUT OF RANGE REFERENCE UNITS LAB L501.080 70-110 mg/dL Normal BEDSIDE GLU 104 Result Comment: MANAGEMENT OF PATIENT CARE PER NURSING PROTOCOL Performed By: #### L501.080 #### [facility] Point of Care [address] [facility] [place] [address] BASIC METABOLIC Collected: 08/03/2017 Status: F Source: RIP PROFILE (BMP) 10:40 PM [facility] REPOSITORY Order Comment: Comments: Call MD with results STAT TYPE CODE TESTS RESULT OUT OF RANGE REFERENCE UNITS LAB L501.0100 70-110 mg/dL High GLU 125 Result Comment: Fasting Glucose result from 110 to <126 mg/dL suggests IMPAIRED HOMEOSTASIS per A.D.A. criteria. LAB L501.1000 7-18 mg/dL Normal BUN 9 LAB L501.1100 0.70-1.30 mg/dL Normal CREAT,SERUM 0.73 Result Comment: The validity of the calculated GFR AND GFRAA in patients over 70 years has not been determined. Clinical correlation is essential. LAB L501.1110 >60 mL/min Normal EST GFR 147 Result Comment: Non- GFR Calc LAB L501.1115 >60 mL/min Normal EST GFR - AA 178 Result Comment: GFR Calc LAB L501.1255 ml/min Normal Estimated CRCL 143.91 LAB L501.1300 10-20 RATIO BUN/CRE Normal 12.3 LAB L501.2200 8.5-10 mg/dL Low .1 CA 8.4 LAB L501.5300 136-14 mmol/L 5 NA Normal 141 LAB L501.5600 3.5-5. mmol/L Low 1 K 3.3 Result Comment: Slight Hemolysis, Result may be falsely increased. LAB L501.5900 98-107 mmol/L High CL 109 LAB L501.6100 21.0-32.0 mmol/L Normal CO2 23.0 LAB L501.6200 5-15 Normal 9 GAP Performed By: #### L500.2500 #### [facility] [address] [place], [address] BASIC METABOLIC Collected: 08/03/2017 Status: F Source: [place] PROFILE (BMP) 10:40 PM [facility] REPOSITORY Order Comment: Comments: Call MD with results STAT TYPE CODE TESTS RESULT OUT OF RANGE REFERENCE UNITS LAB L501.0100 70-110 mg/dL High GLU 123 Result Comment: Fasting Glucose result from 110 to <126 mg/dL suggests IMPAIRED HOMEOSTASIS per A.D.A. criteria. LAB L501.1000 7-18 mg/dL Normal BUN 8 LAB L501.1100 0.70-1.30 mg/dL Normal CREAT,SERUM 0.77 Result Comment: The validity of the calculated GFR AND GFRAA in patients over 70 years has not been determined. Clinical correlation is essential. LAB L501.1110 >60 mL/min Normal EST GFR 139 Result Comment: Non- GFR Calc LAB L501.1115 >60 mL/min Normal EST GFR - AA 169 Result Comment: GFR Calc LAB L501.1255 ml/min Normal Estimated CRCL 136.44 LAB L501.1300 10-20 RATIO BUN/CRE Normal 10.4 LAB L501.2200 8.5-10 mg/dL Low .1 CA 8.4 LAB L501.5300 136-14 mmol/L 5 NA Normal 140 LAB L501.5600 3.5-5. mmol/L Low 1 K 3.3 Result Comment: Slight Hemolysis, Result may be falsely increased. LAB L501.5900 98-107 mmol/L High CL 109 LAB L501.6100 21.0-32.0 mmol/L Normal CO2 22.0 LAB L501.6200 5-15 Normal 9 GAP Performed By: #### L500.2500, L501.5200 #### [facility] [address] [place], [address] MAGNESIUM Collected: 08/03/2017 Status: F Source: [place] 10:40 PM [facility] REPOSITORY Order Comment: Comments: Call MD with results STAT TYPE CODE TESTS RESULT OUT OF RANGE REFERENCE UNITS LAB L501.5200 1.6-2.6 mg/dL Normal MG 1.6 Result Comment: Please note revised Magnesium reference range effective 2017. Slight Hemolysis, Result may be falsely increased. Performed By: #### L500.2500, L501.5200 #### [facility] [address] [place], [address] PHOSPHORUS Collected: 08/03/2017 Status: F Source: [place] 10:40 PM [facility] REPOSITORY Order Comment: 'TROP' Serial specimen #1, #2, #3, or #4: 1 TYPE CODE TESTS RESULT OUT OF RANGE REFERENCE UNITS LAB L501.2300 2.5-4.9 mg/dL Low PHOS 2.2 Performed By: #### L501.2300, L501.4010 #### [facility] [address] [place], [address] TROPONIN-I Collected: 08/03/2017 Status: F Source: [place] 10:40 PM [facility] REPOSITORY Order Comment: 'TROP' Serial specimen #1, #2, #3, or #4: 1 TYPE CODE TESTS RESULT OUT OF RANGE REFERENCE UNITS LAB L501.4010 <0.06 ng/mL Normal < 0.02 TROPONIN-I Result Comment: TROPONIN-I EXPECTED VALUES <0.05 NEGATIVE 0.06 - 0.59 AT RISK OF NE > OR = 0.60 SUGGEST NE Performed By: #### L501.2300, L501.4010 #### [facility] [address] [place], [address] BEDSIDE GLUCOSE Collected: 08/03/2017 Status: F Source: [place] 10:03 PM [facility] REPOSITORY TYPE CODE TESTS RESULT OUT OF REFERENCE UNITS RANGE LAB L501.080 70-110 mg/dL High BEDSIDE GLU 134 Result Comment: MANAGEMENT OF PATIENT CARE PER NURSING PROTOCOL Performed By: #### L501.080 #### [facility] Point of Care [address] [place] [address] BEDSIDE GLUCOSE Collected: 08/03/2017 Status: F Source: RIP 9:01 PM [facility] REPOSITORY TYPE CODE TESTS RESULT OUT OF REFERENCE UNITS RANGE LAB L501.080 70-110 mg/dL High BEDSIDE GLU 159 Result Comment: MANAGEMENT OF PATIENT CARE PER NURSING PROTOCOL Performed By: #### L501.080 #### [facility] Point of Care [address] [place] [address] BEDSIDE GLUCOSE Collected: 08/03/2017 Status: F Source: RIP 8:02 PM [facility] REPOSITORY TYPE CODE TESTS RESULT OUT OF REFERENCE UNITS RANGE LAB L501.080 70-110 mg/dL High BEDSIDE GLU 203 Result Comment: MANAGEMENT OF PATIENT CARE PER NURSING PROTOCOL Performed By: #### L501.080 #### [facility] Point of Care [address] [place] [address] BEDSIDE GLUCOSE Collected: 08/03/2017 Status: F Source: RIP 6:48 PM [facility] REPOSITORY TYPE CODE TESTS RESULT OUT OF REFERENCE UNITS RANGE LAB L501.080 70-110 mg/dL High BEDSIDE GLU 183 Result Comment: MANAGEMENT OF PATIENT CARE PER NURSING PROTOCOL Performed By: #### L501.080 #### [facility] Point of Care [address] [place] [address] BASIC METABOLIC Collected: 08/03/2017 Status: F Source: RIP PROFILE (BMP) 6:40 PM [facility] REPOSITORY Order Comment: Comments: Call MD with results STAT TYPE CODE TESTS RESULT OUT OF RANGE REFERENCE UNITS LAB L501.0100 70-110 mg/dL High GLU 210 Result Comment: Glucose result greater than or equal to 200 mg/dL suggests DIABETES MELLITUS per A.D.A. criteria. LAB L501.1000 7-18 mg/dL Normal BUN 11 LAB L501.1100 0.70-1.30 mg/dL Normal CREAT,SERUM 0.92 Result Comment: The validity of the calculated GFR AND GFRAA in patients over 70 years has not been determined. Clinical correlation is essential. LAB L501.1110 >60 mL/min Normal EST GFR 113 Result Comment: Non- GFR Calc LAB L501.1115 >60 mL/min Normal EST GFR - AA 137 Result Comment: GFR Calc LAB L501.1255 ml/min Normal Estimated CRCL 114.19 LAB L501.1300 10-20 RATIO BUN/CRE Normal 12.0 LAB L501.2200 8.5-10 mg/dL Low .1 CA 8.3 LAB L501.5300 136-14 mmol/L 5 NA Normal 140 LAB L501.5600 3.5-5. mmol/L 1 K Normal 3.7 LAB L501.5900 98-107 mmol/L High CL 108 LAB L501.6100 21.0-3 mmol/L Low 2.0 CO2 20.0 LAB L501.6200 5-15 GAP Normal 12 Performed By: #### L500.2500 #### [facility] [address] [place], [address] BEDSIDE GLUCOSE Collected: 08/03/2017 Status: F Source: RIP 6:01 PM [facility] REPOSITORY TYPE CODE TESTS RESULT OUT OF REFERENCE UNITS RANGE LAB L501.080 70-110 mg/dL High BEDSIDE GLU 219 Result Comment: MANAGEMENT OF PATIENT CARE PER NURSING PROTOCOL Performed By: #### L501.080 #### [facility] Point [facility] Care [address] [place] [address] BEDSIDE GLUCOSE Collected: 08/03/2017 Status: F Source: RIP 4:56 PM [facility] REPOSITORY TYPE CODE TESTS RESULT OUT OF REFERENCE UNITS RANGE LAB L501.080 70-110 mg/dL High BEDSIDE GLU 251 Result Comment: MANAGEMENT OF PATIENT CARE PER NURSING PROTOCOL Performed By: #### L501.080 #### [facility] Point of Care [address] [facility] [place] [address] BEDSIDE GLUCOSE Collected: 08/03/2017 Status: F Source: RIP 4:00 PM [facility] REPOSITORY TYPE CODE TESTS RESULT OUT OF REFERENCE UNITS RANGE LAB L501.080 70-110 mg/dL High BEDSIDE GLU 236 Result Comment: MANAGEMENT OF PATIENT CARE PER NURSING PROTOCOL Performed By: #### L501.080 #### [facility] Point of Care [address] [place] [address] EMERGENCY DEPARTMENT Observed: 08/03/2017 Status: F Source: [place] SUMMARY 3:36 PM [facility] REPOSITORY [facility] Medical Records Department [address] [place] [address] Emergency Department Summary 08/03/17 1035 MR#: [id number] Acct: [id number] Name: VAHID WANG Rep #: [id number] : 2000 16 From: Charles Cortez MD PCP: Scott Braden MD Status: ADM IN - ER Visit Summary Date of Service: 08/03/17 Chief Complaint: Blood sugar with nausea and vomiting History of Present Illness: The patient is a 16 M history of type 1 insulin-dependent diabetes. Patient's had multiple episodes of being in DKA. He was admitted to the hospital 2 weeks ago for DKA. Today was at the [facility] they checked his blood sugar which was elevated if ketones in his urine and was sent to the ER for evaluation. He does state that he has body aches and nausea and vomiting started yesterday. Denies fever. Denies dysuria. Physical Examination: Young male currently no acute distress. Vital signs are stable afebrile. Pulse ox 99% room air no signs of hypoxia. HEENT exam unremarkable. Neck nontender no lymphadenopathy. Lungs clear to auscultation bilaterally. Heart regular rate and rhythm no murmur. Abdomen is soft and nontender. Extremities he moves all 4. They are nontender there is no edema. Neurologically is awake and alert without focal motor deficits. Back exam is nontender. Skin is pale otherwise unremarkable no rashes. Test Results: CBC normal with a white count of 7. H and H of 15 and 45. Electrolytes show sodium 130. CO2 of 19. Anion gap of 18. Normal BUN and creatinine. Glucose is 648. His serum ketones are moderate. His history and labs are consistent with acute DKA. Emergency Department Course and Treatment: Patient be treated with IV fluids. We will determine if he is in DKA or not. Patient will be started on insulin drip for his DKA. He is already receiving 2 L of normal saline. And I will speak to the hospitalist about admission. Treatment Plan: [] Disposition: Admit Impression: Acute diabetic ketoacidosis. Acute metabolic acidosis. History of type 1 insulin-dependent diabetes This note was generated with P[employer]el dictation software. It may contain incorrect words, spelling, and punctuation that were not noted in review of the chart prior to signing ED Disposition - Plan for ED Patient: Chief Complaint: Hyperglycemia Referrals: Scott Braden MD [Primary Care Provider] - What to do if you have Problems For any increased pain, shortness of breath, bleeding, nausea or vomiting, chest pain, or any unexpected problems, contact your Primary Care Provider. Call [facility] ([phone]) or report to the closest Emergency Room. Call 911 if necessary. 08/03/17 1535 <Electronically signed by Charles Cortez MD> Date Charles Cortez MD Cosigner Signature (If Indicated): Date CC: Scott Braden MD BEDSIDE GLUCOSE Collected: 08/03/2017 Status: F Source: RIP 3:00 PM [facility] REPOSITORY TYPE CODE TESTS RESULT OUT OF REFERENCE UNITS RANGE LAB L501.080 70-110 mg/dL High BEDSIDE GLU 253 Result Comment: Insulin Given MANAGEMENT OF PATIENT CARE PER NURSING PROTOCOL Performed By: #### L501.080 #### [facility] Point of Care [address] [place], [place] [address] BASIC METABOLIC Collected: 08/03/2017 Status: F Source: RIP PROFILE (BMP) 2:40 PM [facility] REPOSITORY Order Comment: Comments: Call MD with results STAT TYPE CODE TESTS RESULT OUT OF RANGE REFERENCE UNITS LAB L501.0100 70-110 mg/dL High GLU 272 Result Comment: Glucose result greater than or equal to 200 mg/dL suggests DIABETES MELLITUS per A.D.A. criteria. LAB L501.1000 7-18 mg/dL Normal BUN 16 LAB L501.1100 0.70-1.30 mg/dL Normal CREAT,SERUM 0.98 Result Comment: The validity of the calculated GFR AND GFRAA in patients over 70 years has not been determined. Clinical correlation is essential. LAB L501.1110 >60 mL/min Normal EST GFR 106 Result Comment: Non- GFR Calc LAB L501.1115 >60 mL/min Normal EST GFR - AA 128 Result Comment: GFR Calc LAB L501.1255 ml/min Normal Estimated CRCL 107.20 LAB L501.1300 10-20 RATIO BUN/CRE Normal 16.4 LAB L501.2200 8.5-10 mg/dL Low .1 CA 8.3 LAB L501.5300 136-14 mmol/L 5 NA Normal 138 LAB L501.5600 3.5-5. mmol/L 1 K Normal 4.2 LAB L501.5900 98-107 mmol/L High CL 108 LAB L501.6100 21.0-3 mmol/L Low 2.0 CO2 13.0 LAB L501.6200 5-15 High GAP 17 Performed By: #### L500.2500 #### [facility] [address] [place], [address] BEDSIDE GLUCOSE Collected: 08/03/2017 Status: F Source: RIP 1:55 PM [facility] REPOSITORY TYPE CODE TESTS RESULT OUT OF REFERENCE UNITS RANGE LAB L501.080 70-110 mg/dL High BEDSIDE GLU 357 Result Comment: MANAGEMENT OF PATIENT CARE PER NURSING PROTOCOL Performed By: #### L501.080 #### [facility] Point of Care [address] [place] [address] M R STAPH AUREUS Collected: 08/03/2017 Status: F Source: RIP DNA BY PCR 12:50 PM [facility] REPOSITORY TYPE CODE TESTS RESULT OUT OF RANGE REFERENCE UNITS LAB L8200.1100 Negative Normal MRSA Negative RESULT Performed By: #### L8200.1000 #### [facility] [address] [facility] [place], [address] BEDSIDE GLUCOSE Collected: 08/03/2017 Status: F Source: [place] 12:47 PM [facility] REPOSITORY TYPE CODE TESTS RESULT OUT OF REFERENCE UNITS RANGE LAB L501.080 70-110 mg/dL High alert BEDSIDE GLU > 500 Result Comment: Insulin Given MANAGEMENT OF PATIENT CARE PER NURSING PROTOCOL Performed By: #### L501.080 #### [facility] Point of Care [address] [place] [address] Observed: 08/03/2017 Status: F Source: [place] RESPIRATORY PANEL 12:15 PM [facility] MOLECULAR REPOSITORY RP PANEL ADENOVIRUS Not Detected HUMAN METAPHNEUMO Not Detected INFLUENZA A Not Detected INFLUENZA A (SUBTYPE H1) Not Detected INFLUENZA A (SUBTYPE H3) Not Detected INFLUENZA B Not Detected PARAINFLUENZA 1 Not Detected PARAINFLUENZA 2 Not Detected PARAINFLUENZA 3 Not Detected PARAINFLUENZA 4 Not Detected RHINOVIRUS Not Detected RSV A Not Detected RSV B Not Detected NAAT METHOD Testing was performed using nucleic acid amplification Performed By: #### M100.638 #### [facility] [address] [place], [address] HISTORY AND PHYSICAL Observed: 08/03/2017 Status: F Source: [place] EXAM 12:11 PM [facility] REPOSITORY [facility] Medical Records Department [address] [place] [address] History and Physical 08/03/17 1139 MR#: [id number] Acct: [id number] Name: VAHID WANG Rep #: [id number] : 2000 16 From: Pranay Solitario MD PCP: Scott Braden MD Status: ADM IN Y Location: ICU ICU03-1 Problem List (1) DKA (diabetic ketoacidoses) Status: Acute Qualifiers: Diabetes mellitus type: type 1 (2) DKA, type 1, not at goal Status: Acute (3) Elevated blood sugar level Status: Acute (4) Excessive thirst Status: Acute (5) Urine ketones Status: Acute (6) DM I (diabetes mellitus, type I), uncontrolled Status: Chronic Qualifiers: Diabetes mellitus complication status: with hyperglycemia Qualified Code(s): E10.65 - Type 1 diabetes mellitus with hyperglycemia History of Present Illness Date of Admission: 08/03/17 Chief Complaint: Elevated blood glucose The patient is a 16 year old M with past medical history significant for diabetes mellitus type 1 was on admission 2 weeks prior to his current admission. Patient was admitted with DKA. He was apparently doing well until 3 days prior to his current admission when he started experiencing progressive generalized weakness associated with chills. He also had persistent nausea. Was seen at PCPs office sent to the ED where his evaluation was consistent with diabetic ketoacidosis. Started on management per protocol admitted to the intensive care unit for further Past Medical History Past Medical History (Chronic Problems): Chronic Problems DM I (diabetes mellitus, type I), uncontrolled (Chronic) Allergies No Known Allergies Allergy (Verified 08/03/17 10:09) Home Medications: Ambulatory Orders Medication Instructions Recorded Insulin Aspart [Novolog Flexpen] See Protocol SC ACHS 05/10/16 Insulin Glargine,Hum.rec.anlog 35 unit SQ QHS 06/15/17 [Basaglar Kwikpen U-100] Surgical History: - - BL ear tubes. Psychiatric History: No pertinent psych hx Smoking Status: Never smoker - *Family History Maternal History Items: Heart Disease, Renal Disease Paternal History Items: Heart Disease, - - Paternal family males w/ frequent hearing disorder. Review of Systems Constitutional: Reports: Anorexia, Chills, Malaise, Weakness HEENT: Denies: Head Aches, Sinus Congestion, Sinus Drainage Cardiovascular: Denies: Chest Pain, Orthopnea, Palpitations, Paroxysmal Noc. Dyspnea Respiratory: Denies: Cough, Shortness of breath at rest, Shortness of breath upon exertion, Sputum production Gastrointestinal: Reports: Nausea, Vomiting Genitourinary: Denies: Dysuria, Frequency, Hematuria, Urgency Musculoskeletal: Denies: Joint Pain, Joint Tenderness Skin: Denies: Rash Neurological: Denies: Focal weakness, Numbness, Tingling Psychiatric: Denies: Homicidal Ideations, Suicidal Ideations Hematologic/ Lymphatic: Denies: Easy Bruising, Easy Bleeding VTE Information - Inpt Only VTE Present on Admission: No VTE Pharm Prophylaxis ordered?: No Objective: GENERAL: cooperative HEENT: Clear conjunctiva, NECK; supple, normal thyroid, CHEST: Clear to auscultation bilaterally, HEART: Regular S1 S2, Tachycardiac ABDOMEN: soft, non-tender, normoactive bowel sounds, RECTAL: deferred EXTREMITIES: No edema, no clubbing, no cyanosis. CITRIX ADMINISTRATOR: Awake, no lateralizing signs. SKIN: No Rash - Physical Exam Vital Signs Temp Pulse Resp BP Pulse Ox 98 F 94 18 115/63 L 98 08/03/17 10:07 08/03/17 11:30 08/03/17 11:30 08/03/17 11:30 08/03/17 11:30 Oxygen Delivery Method Room Air Weight: 59.874 kg Body Mass Index (BMI) 20.0 Finger Stick Blood Glucose 600 Laboratory Tests Past 24 Hrs POC Glucose POC Glucose > 500 H* Assessment/Plan Patient is an 16-year-old gentleman with past medical history significant for diabetes mellitus type 1 presented with elevated blood glucose associated with nausea vomiting and progressive weakness assessment of diabetic ketoacidosis made and admission admitted to the intensive care unit for further management 1. Diabetic ketoacidosis: admitted to the intensive care unit managed with aggressive IV fluid resuscitation and IV insulin with correction of electrolyte abnormalities 2. Hyponatremia secondary to pseudohyponatremia; do suspect rapid improvement with correction of patient hyperglycemia 3. Suspected acute viral syndrome requested for influenza assay 4. GERD on PPI 5. DVT prophylaxis; low risk did encourage early ambulation Code Visit Inpatient E AND M: [id number] Init Hosp L3 08/03/17 1211 <Electronically signed by Pranay Solitario MD> Date Pranay Solitario MD Cosigner Signature: Date (if applicable) CC: Scott Braden MD; Pranay Solitario MD Signed CBC W/DIFF, AUTOMATED Collected: 08/03/2017 Status: F Source: [place] 10:40 AM [facility] REPOSITORY TYPE CODE TESTS RESULT OUT OF RANGE REFERENCE UNITS LAB L100.1000 4.4-11.0 K/mm3 Normal WBC 7.4 LAB L100.1200 4.6-6.2 M/mm3 Normal RBC 4.97 LAB L100.1300 13.0-16.5 g/dl Normal HGB 15.6 LAB L100.1400 40-54 % Normal HCT 45.2 LAB L100.1500 80-94 fL Normal MCV 90.9 LAB L100.1600 27.0-32.0 pg Normal MCH 31.4 LAB L100.1700 32-36 g/gl Normal MCHC 34.5 LAB L100.1810 11.6-14.6 % Normal RDW CV 12.1 LAB L100.1820 35.1-43.9 fl Normal RDW SD 39.4 LAB L100.1900 150-450 K/mm3 Normal PLT 323 LAB L100.2000 6.2-12.0 fl Normal MPV 9.7 LAB L100.2100 47-70 % Normal NEUT% 64.0 LAB L100.2200 19-41 % Normal LY% 27.3 LAB L100.2300 0-10 % Normal MONO% 5.2 LAB L100.2400 0-5 % Normal EO% 2.4 LAB L100.2500 0-1 % Normal BASO% 0.4 LAB L100.2550 0.0-0.9 % Normal IM GRAN % 0.700 Result Comment: IG% - Immature Granulocytes (promyelocytes, myelocytes and metamyelocytes) > 1% indicates that a LEFT SHIFT is Present. LAB L100.2620 2.0-7.7 X10 3/uL Normal Absolute Neut 4.7 LAB L100.2720 0.83-4.51 X10 3/ul Normal Absolute Lymph 2.01 Performed By: #### L100.0100 #### [facility] [address] [place], [address] ACETONE SERUM Collected: 08/03/2017 Status: F Source: RIP 10:40 AM [facility] REPOSITORY TYPE CODE TESTS RESULT OUT OF REFERENCE UNITS RANGE LAB L501.6900 NEG High ACETONE SERUM MODERATE Performed By: #### L501.6900 #### [facility] [address] [place], [place], [address] BASIC METABOLIC Collected: 08/03/2017 Status: F Source: RIP PROFILE (BMP) 10:40 AM [facility] REPOSITORY TYPE CODE TESTS RESULT OUT OF RANGE REFERENCE UNITS LAB L501.0100 70-110 mg/dL High alert GLU 648 Result Comment: Critical Result(s) Called at: 11:11:30 08/03/2017 by: Zaria Garcia to [facility] Glucose result greater than or equal to 200 mg/dL suggests DIABETES MELLITUS per A.D.A. criteria. LAB L501.1000 7-18 mg/dL High BUN 20 LAB L501.1100 0.70-1.30 mg/dL Normal CREAT,SERUM 0.94 Result Comment: The validity of the calculated GFR AND GFRAA in patients over 70 years has not been determined. Clinical correlation is essential. LAB L501.1110 >60 mL/min Normal EST GFR 110 Result Comment: Non- GFR Calc LAB L501.1115 >60 mL/min Normal EST GFR - AA 133 Result Comment: GFR Calc LAB L501.1255 ml/min Normal Estimated CRCL 107.93 LAB L501.1300 10-20 RATIO High BUN/CRE 21.2 LAB L501.2200 8.5-10 mg/dL .1 CA Normal 9.7 LAB L501.5300 136-14 mmol/L Low 5 NA 130 LAB L501.5600 3.5-5. mmol/L 1 K Normal 4.8 Result Comment: Moderate Hemolysis, Result may be falsely increased. LAB L501.5900 98-107 mmol/L Low CL 93 LAB L501.6100 21.0-32.0 mmol/L Low CO2 19.0 LAB L501.6200 5-15 High GAP 18 Performed By: #### L500.2500 #### [facility] [address] [place], [place], [address] MAGNESIUM Collected: 08/03/2017 Status: F Source: RIP 10:40 AM [facility] REPOSITORY TYPE CODE TESTS RESULT OUT OF RANGE REFERENCE UNITS LAB L501.5200 1.6-2.6 mg/dL Normal MG 2.0 Result Comment: Please note revised Magnesium reference range effective 2017. Moderate Hemolysis, Result may be falsely increased. Performed By: #### L501.5200 #### [facility] [address] [place], [place], [address] BEDSIDE GLUCOSE Collected: 08/03/2017 Status: F Source: RIP 10:26 AM [facility] REPOSITORY TYPE CODE TESTS RESULT OUT OF REFERENCE UNITS RANGE LAB L501.080 70-110 mg/dL High alert BEDSIDE GLU > 500 Result Comment: Dr Delvalle Followed MANAGEMENT OF PATIENT CARE PER NURSING PROTOCOL Performed By: #### L501.080 #### [facility] Point of Care [address] [place] [address] PROGRESS Observed: 08/03/2017 Status: COMPLETED Source: [place] 9:32 AM [facility] [place] REPOSITORY HNO ID: [id number] Author: Doreen (Strap Setter) DionBrice Service: (none) Author Type: Nurse Practitioner Type: Progress Notes Filed: 08/03/2017 9:46 AM Note Text: HPI Vahid Wang is a 16 year old male who presents with nausea for 3 days, he was vomiting last night, headache and body aches. He has not vomited today. He has not eaten today but is drinking a lot of fluids. He states he checked his urine this morning and is spilling ketones into his urine. Review of Systems Constitutional: Positive for chills. Negative for fever. HENT: Negative. Negative for congestion, ear pain and sore throat. Respiratory: Positive for cough. Cardiovascular: Negative. Gastrointestinal: Positive for abdominal pain, diarrhea, nausea and vomiting. Musculoskeletal: Positive for myalgias. Skin: Negative. Pulse 88 Temp 36.1 ?C (97 ?F) (Tympanic) Resp 20 Wt 61.2 kg (135 lb) PAST MEDICAL HISTORY Diagnosis Date - Attention deficit disorder with hyperactivity(314.01) - Conduct disorder, childhood onset type - Foot fracture, right growth plate involved - Fracture of clavicle, right, closed 2016 - Generalized convulsive epilepsy without mention of intractable epilepsy - Other abnormal heart sounds normal echocardiogram. Holter monitor that - Right wrist fracture - Sensorineural hearing loss, unspecified - Type I (juvenile type) diabetes mellitus without mention of complication, not stated as uncontrolled 05/19 - Unspecified viral meningitis PAST SURGICAL HISTORY Procedure Laterality Date - MYRINGOTOMY W TUBE,BILATERAL(2) ALLERGIES Review of patient's allergies indicates no known allergies. MEDICATIONS Igjegskfftnkayk-Akgjreljm-TP (BROMFED DM) 2-30-10 mg/5 mL syrup Take 5-10 mL by mouth four times daily as needed. ranitidine (ZANTAC) 150 mg tablet Take 1 tablet by mouth twice daily. ondansetron orally disintegrating (ZOFRAN ODT) 4 mg disintegrating tablet Take 1 tablet by mouth every 8 hours as needed. glucagon, human recombinant, (GLUCAGON EMERGENCY KIT, HUMAN,) 1 mg injection use as directed, call if used insulin aspart (NOVOLOG FLEXPEN) 100 unit/mL inpn TAKE 1 UNIT FOR 7 GRAMS CARB UP TO 100 UNITS DAILY blood sugar diagnostic (FREESTYLE LITE STRIPS) test strip USE TO TEST UP TO 12 TIMES A DAY DIRECTED Insulin [place], Disposable, (BD ULTRAFINE III MINI PEN) 31 gauge x 3/16 ndle use as directed 10 times daily insulin glargine (LANTUS) 100 unit/mL (3 mL) inpn Inject 21 Units subcutaneously daily at bedtime. Insulin Syringe-Needle U-100 (BD INSULIN SYRINGE HALF UNIT) 0.3 mL 31 x 5/16 syrg use as directed Lancets lancets Use as instructed FAMILY HISTORY Problem Relation Age of Onset - renal failure [OTHER] Mother - Thyroid Father - adhd [OTHER] Father - hearing loss: congenital [OTHER] Father - hypercholesterlemia [OTHER] Father - Heart Paternal Grandmother NE - irritable bowel syndrome [OTHER] Sister - migraine [OTHER] Sister - Cancer Paternal Grandfather possibly lung cancer - Hearing Loss Paternal Grandfather congenital - Hearing Loss Brother congenital - adhd [OTHER] Brother 15 - sleeping disorder [OTHER] Brother Social History Substance Use Topics - Smoking status: Passive Smoke Exposure - Never Smoker - Smokeless tobacco: Never Used Comment: Grandmother smokes outside of the home - Alcohol use No Physical Exam Constitutional: He is well-developed, well-nourished, and in no distress. Cardiovascular: Normal rate. Pulmonary/Chest: Effort normal. Neurological: He is alert. Skin: Skin is warm and dry. No rash noted. Nursing note and vitals reviewed. ASSESSMENT/PLAN: 1. Dehydration - ICD9: 276.51, ICD10: E86.0 - Patient unable to produce a urine sample at this visit. - due to patient's history of DM I, and report of ketonuria, he is advised to go to ER for rehydration. 2. Viral gastroenteritis - ICD9: 008.8, ICD10: A08.4 - see above. - Follow-up with your PCP in 3-5 days if symptoms have not improved or sooner if symptoms worsen - Discussed red flags and need for immediate medical evaluation if any occur. - Discussed supportive care treatment with fluids, rest and analgesia. - Discussed expected course of illness Doreen Coffman CNP CNOV Observed: 08/03/2017 Status: COMPLETED Source: [place] 9:15 AM [facility] REPOSITORY Office Visit ([facility]) VAHID WANG ([id number]) 2000 M Date Time Provider Department 08/03/17 9:15 AM DOREEN COFFMAN (KAYLEE) [facility] During your visit today, we recorded the following information about you: Temperature Pulse Respiration Weight 97 degrees 88/minute 20/minute 61.2 kg Doreen Coffman CNP 08/03/2017 9:46 AM Signed HPI Vahid Garcia Felipe is a 16 year old male who presents with nausea for 3 days, he was vomiting last night, headache and body aches. He has not vomited today. He has not eaten today but is drinking a lot of fluids. He states he checked his urine this morning and is spilling ketones into his urine. Review of Systems Constitutional: Positive for chills. Negative for fever. HENT: Negative. Negative for congestion, ear pain and sore throat. Respiratory: Positive for cough. Cardiovascular: Negative. Gastrointestinal: Positive for abdominal pain, diarrhea, nausea and vomiting. Musculoskeletal: Positive for myalgias. Skin: Negative. Pulse 88 Temp 36.1 ?C (97 ?F) (Tympanic) Resp 20 Wt 61.2 kg (135 lb) PAST MEDICAL HISTORY Diagnosis Date - Attention deficit disorder with hyperactivity(314.01) - Conduct disorder, childhood onset type - Foot fracture, right growth plate involved - Fracture of clavicle, right, closed 2016 - Generalized convulsive epilepsy without mention of intractable epilepsy - Other abnormal heart sounds normal echocardiogram. Holter monitor that - Right wrist fracture - Sensorineural hearing loss, unspecified - Type I (juvenile type) diabetes mellitus without mention of complication, not stated as uncontrolled 05/19 - Unspecified viral meningitis PAST SURGICAL HISTORY Procedure Laterality Date - MYRINGOTOMY W TUBE,BILATERAL(2) ALLERGIES Review of patient's allergies indicates no known allergies. MEDICATIONS Ixrieyhvxgfhnmp-Tmhkocuxg-AT (BROMFED DM) 2-30-10 mg/5 mL syrup Take 5-10 mL by mouth four times daily as needed. ranitidine (ZANTAC) 150 mg tablet Take 1 tablet by mouth twice daily. ondansetron orally disintegrating (ZOFRAN ODT) 4 mg disintegrating tablet Take 1 tablet by mouth every 8 hours as needed. glucagon, human recombinant, (GLUCAGON EMERGENCY KIT, HUMAN,) 1 mg injection use as directed, call if used insulin aspart (NOVOLOG FLEXPEN) 100 unit/mL inpn TAKE 1 UNIT FOR 7 GRAMS CARB UP TO 100 UNITS DAILY blood sugar diagnostic (FREESTYLE LITE STRIPS) test strip USE TO TEST UP TO 12 TIMES A DAY DIRECTED Insulin [place], Disposable, (BD ULTRAFINE III MINI PEN) 31 gauge x 3/16ANDquot; ndle use as directed 10 times daily insulin glargine (LANTUS) 100 unit/mL (3 mL) inpn Inject 21 Units subcutaneously daily at bedtime. Insulin Syringe-Needle U-100 (BD INSULIN SYRINGE HALF UNIT) 0.3 mL 31 x 5/16ANDquot; syrg use as directed Lancets lancets Use as instructed FAMILY HISTORY Problem Relation Age of Onset - renal failure [OTHER] Mother - Thyroid Father - adhd [OTHER] Father - hearing loss: congenital [OTHER] Father - hypercholesterlemia [OTHER] Father - Heart Paternal Grandmother NE - irritable bowel syndrome [OTHER] Sister - migraine [OTHER] Sister - Cancer Paternal Grandfather possibly lung cancer - Hearing Loss Paternal Grandfather congenital - Hearing Loss Brother congenital - adhd [OTHER] Brother 15 - sleeping disorder [OTHER] Brother Social History Substance Use Topics - Smoking status: Passive Smoke Exposure - Never Smoker - Smokeless tobacco: Never Used Comment: Grandmother smokes outside of the home - Alcohol use No Physical Exam Constitutional: He is well-developed, well-nourished, and in no distress. Cardiovascular: Normal rate. Pulmonary/Chest: Effort normal. Neurological: He is alert. Skin: Skin is warm and dry. No rash noted. Nursing note and vitals reviewed. ASSESSMENT/PLAN: 1. Dehydration - ICD9: 276.51, ICD10: E86.0 - Patient unable to produce a urine sample at this visit. - due to patient's history of DM I, and report of ketonuria, he is advised to go to ER for rehydration. 2. Viral gastroenteritis - ICD9: 008.8, ICD10: A08.4 - see above. - Follow-up with your PCP in 3-5 days if symptoms have not improved or sooner if symptoms worsen - Discussed red flags and need for immediate medical evaluation if any occur. - Discussed supportive care treatment with fluids, rest and analgesia. - Discussed expected course of illness Doreen Coffman CNP Referring Provider: SELF [200] Allergies As of Date: 08/03/2017 (No Known Allergies) Date Reviewed: 08/03/2017 Reviewed by: Doreen (Strap Setter) Meghna - Fully Assessed Reason for Visit: Diarrhea [35] Cmt: with vomiting and stomach cramping x 3 day Primary Visit Diagnosis:Dehydration [E86.0] Other Visit Diagnosis:Viral gastroenteritis [A08.4] Prescriptions as of 08/03/2017 Sig: BROMPHENIRAMINE-PSEUDOEPHEDRI* Take 5-10 mL by mouth four ti* GLUCAGON (HUMAN RECOMBINANT) * use as directed, call if used INSULIN ASPART 100 UNIT/ML SOLANO* TAKE 1 UNIT FOR 7 GRAMS CARB * BLOOD SUGAR DIAGNOSTIC STRIPS USE TO TEST UP TO 12 TIMES A * PEN NEEDLE, DIABETIC 31 GAUGE* use as directed 10 times daily INSULIN GLARGINE 100 UNIT/ML * Inject 21 Units subcutaneousl* Patient taking differently: Inject 30 Units subcutaneousl* INSULIN SYRINGE-NEEDLE U-100 * use as directed LANCETS Use as instructed Problem List As Of Date 08/03/2017 Noted Resolved Type 1 diabetes mellitus (HCC) [E10.9] INVALID FOR* Closed Buckle Fracture of Radius [UQZ3250] INVALID FOR* ADD (Attention Deficit Disorder) [F98.8] INVALID FOR* Fatty liver disease, nonalcoholic [K76.0] INVALID FOR* Medications Discontinued During This Encounter ranitidine (ZANTAC) 150 mg tablet 60 t* 0 05/23/2017 08/03/2017 Route: ORAL Sig: Take 1 tablet by mouth twice daily. Disc: Reason for discontinue is not on file. ondansetron orally disintegrating (Z* 10 t* 0 04/06/2017 08/03/2017 Route: ORAL Sig: Take 1 tablet by mouth every 8 hours as needed. Disc: Reason for discontinue is not on file. Encounter Status:Closed by DOREEN COFFMAN on 08/03/17 BEDSIDE GLUCOSE Collected: 07/20/2017 Status: F Source: [place] 11:35 AM [facility] REPOSITORY TYPE CODE TESTS RESULT OUT OF REFERENCE UNITS RANGE LAB L501.080 70-110 mg/dL High BEDSIDE GLU 237 Result Comment: MANAGEMENT OF PATIENT CARE PER NURSING PROTOCOL Performed By: #### L501.080 #### [facility] Point of Care [address] [place] [address] DISCHARGE SUMMARY Observed: 07/20/2017 Status: F Source: [place] 10:48 AM [facility] REPOSITORY [facility] Medical Records Department [address] [place] [address] Discharge Summary 07/20/17 1044 MR#: [id number] Acct: [id number] Name: VAHID WANG Rep #: [id number] : 2000 16 From: Pranay Solitario MD PCP: Scott Braden MD Status: ADM IN Location: [place] [id number] Discharge Date and Diagnosis Date of Admission: 07/18/17 Date of Discharge: 07/20/17 - Primary Discharge Diagnosis DKA - Secondary Discharge Diagnosis Chronic Problems DM I (diabetes mellitus, type I), uncontrolled (Chronic) Hospital Course and Treatment Imaging Results: Clinical Impression(s) from Imaging Studies Chest X-Ray 07/18/17 19:23 IMPRESSION: Normal x-ray examination of the chest. Electronically Signed: Lulu Klein MD at 21:42 EST Tel , Service support , Liver Ultrasound 07/18/17 19:23 IMPRESSION: Elongated appearance of the right hepatic lobe suggestive of a Isaias's lobe. Enlarged liver. Mild fatty infiltration. No visualized focal mass. No evidence of cholelithiasis or evidence of cholecystitis. Electronically Signed: Lulu Klein MD at 21:47 EST Tel , Service support , Operations: None Summary of Care Provided: Patient is an 16 year old gentleman with past medical history cigar for diabetes mellitus type 1 who presented with related blood glucose, cough nausea vomiting as well as facial pressure and congestion. Patient assessment on admission was consistent with diabetic ketoacidosis admitted to the intensive care unit where patient is being managed per protocol 1. Diabetic ketoacidosis: She will admitted to the intensive care unit managed with aggressive IV fluid resuscitation and IV insulin with correction of electrolyte abnormalities DKA resolved as of the morning of 07/19/2017 subsequently started on long- acting insulin with scheduled pre-meal insulin and correction factor sliding scale coverage 2. Hyponatremia secondary to pseudohyponatremia from patient hyperglycemia corrected with correction of patient's hypERglycemia 3. Suspected acute viral syndrome managed symptomatically 4. Elevated liver enzymes do suspect component of patient fatty liver contributing given his long-standing history of diabetes 5. GERD on PPI 6. DVT prophylaxis; low risk did encourage early ambulation Discharge Diet: 1800 Calorie Control Diet Discharge Activity: Return to Normal Activity Home Medications: Medications to take at Discharge Insulin Aspart [Novolog Flexpen] See Protocol SC ACHS 05/10/16 Ondansetron [Zofran Odt] 4 mg PO Q8H PRN PRN 04/08/17 Insulin Glargine,Hum.rec.anlog [Basaglar Kwikpen U-100] 35 unit SQ QHS 06/15/17 Amox/Clavulanate Tablet [Augmentin Tablet] 875 mg PO BIDCM #14 tab 07/20/17 Guaifenesin [Mucinex] 1,200 mg PO BID #14 tab 07/20/17 Following Prescrptions Were Given to Patient: Amox/Clavulanate Tablet [Augmentin Tablet] 875 mg PO BIDCM #14 tab Guaifenesin [Mucinex] 1,200 mg PO BID #14 tab Primary Care Physician: Scott Braden MD [Primary Care Provider] - Please follow up with your Primary Care Physician in: [place] [address] DAYS Disposition: Home Minutes spent on discharge:: 35 Meaningful Use Info Meaningful Use Diagnoses (Choose all that apply): None applicable Code Visit Inpatient E AND M: 32620 Disch Hosp 07/20/17 1048 <Electronically signed by Pranay Solitario MD> Date Pranay Solitario MD Cosigner Signature (if applicable): Date __ CC: Scott Braden MD; Pranay Solitario MD Signed DISCHARGE INSTRUCTION Observed: 07/20/2017 Status: F Source: [place] 10:46 AM [facility] REPOSITORY [facility] Medical Records Department [address] [place] [address] Instructions for Home/Discharge Instructions 07/20/17 1045 MR#: [id number] Acct: [id number] Name: VAHID WANG Rep #: [id number] : 2000 16 From: Pranay Solitario MD PCP: Scott Braden MD Status: ADM IN You will use the following diet at home:: Calorie/Carbohydrate Controlled (specify 1200, 1400, etc) Discharge Activity: Return to Normal Activity Allergies/Adverse Reactions: Allergies No Known Allergies Allergy (Verified 07/18/17 16:24) Medications to take at Discharge Insulin Aspart [Novolog Flexpen] See Protocol SC ACHS 05/10/16 Ondansetron [Zofran Odt] 4 mg PO Q8H PRN PRN 04/08/17 Insulin Glargine,Hum.rec.anlog [Basaglar Kwikpen U-100] 35 unit SQ QHS 06/15/17 Amox/Clavulanate Tablet [Augmentin Tablet] 875 mg PO BIDCM #14 tab 07/20/17 Guaifenesin [Mucinex] 1,200 mg PO BID #14 tab 07/20/17 The following prescriptions were given: Amox/Clavulanate Tablet [Augmentin Tablet] 875 mg PO BIDCM #14 tab Guaifenesin [Mucinex] 1,200 mg PO BID #14 tab Primary Care Physician: Scott Braden MD [Primary Care Provider] - Please follow up with your Primary Care Physician in: [place] [address] DAYS Please Follow Up With: Ilda Chavez, [employer] When: IN 1 WEEK Proposed Discharge Date: 07/20/17 07/20/17 1046 <Electronically signed by Pranay Solitario MD> Date Pranay Solitario MD CC: Scott Braden MD BEDSIDE GLUCOSE Collected: 07/20/2017 Status: F Source: [place] 6:42 AM [facility] REPOSITORY TYPE CODE TESTS RESULT OUT OF REFERENCE UNITS RANGE LAB L501.080 70-110 mg/dL High BEDSIDE GLU 126 Result Comment: MANAGEMENT OF PATIENT CARE PER NURSING PROTOCOL Performed By: #### L501.080 #### [facility] Point of [address] [place] [address] CBC W/DIFF, AUTOMATED Collected: 07/20/2017 Status: F Source: [place] 6:24 AM [facility] REPOSITORY TYPE CODE TESTS RESULT OUT OF RANGE REFERENCE UNITS LAB L100.1000 4.4-11.0 K/mm3 Normal WBC 5.6 LAB L100.1200 4.6-6.2 M/mm3 Low RBC 4.58 LAB L100.1300 13.0-16.5 g/dl Normal HGB 14.2 LAB L100.1400 40-54 % Normal HCT 42.6 LAB L100.1500 80-94 fL Normal MCV 93.0 LAB L100.1600 27.0-32.0 pg Normal MCH 31.0 LAB L100.1700 32-36 g/gl Normal MCHC 33.3 LAB L100.1810 11.6-14.6 % Normal RDW CV 12.7 LAB L100.1820 35.1-43.9 fl Normal RDW SD 42.9 LAB L100.1900 150-450 K/mm3 Normal PLT 231 LAB L100.2000 6.2-12.0 fl Normal MPV 9.7 LAB L100.2100 47-70 % Low NEUT% 33.4 LAB L100.2200 19-41 % High LY% 49.0 LAB L100.2300 0-10 % Normal MONO% 9.1 LAB L100.2400 0-5 % High EO% 6.9 LAB L100.2500 0-1 % Normal BASO% 0.4 LAB L100.2550 0.0-0.9 % High IM GRAN % 1.200 Result Comment: IG% - Immature Granulocytes (promyelocytes, myelocytes and metamyelocytes) > 1% indicates that a LEFT SHIFT is Present. LAB L100.2620 2.0-7.7 X10 3/uL Low Absolute Neut 1.9 LAB L100.2720 0.83-4.51 X10 3/ul Normal Absolute Lymph 2.76 Performed By: #### L100.0100 #### [facility] [address] [place], [place], [id number] LIVER PROFILE Collected: 07/20/2017 Status: F Source: [place] 6:24 AM [facility] REPOSITORY TYPE CODE TESTS RESULT OUT OF RANGE REFERENCE UNITS LAB L501.1500 6.4-8.2 g/dL Normal T PROT 6.7 LAB L501.1800 3.4-5.0 g/dL Low ALB 3.0 Result Comment: Please note revised Albumin AND Globulin reference range effective 2017. LAB L501.1950 2.2-4.2 g/dL Normal GLOB 3.7 LAB L501.4100 15-37 U/L High AST 386 LAB L501.4305 52-171 U/L Normal ALK P 145 LAB L501.4405 12-78 U/L High ALT 273 LAB L501.4600 0.20-1.00 mg/dL Normal T BILI 0.30 LAB L501.4700 0.00-0.30 mg/dL Normal D BILI 0.08 Performed By: #### L500.3400, L501.2300, L501.5200 #### [facility] [address] [place], [place], [id number] PHOSPHORUS Collected: 07/20/2017 Status: F Source: [place] 6:24 AM [facility] REPOSITORY TYPE CODE TESTS RESULT OUT OF RANGE REFERENCE UNITS LAB L501.2300 2.5-4.9 mg/dL Normal PHOS 3.7 Performed By: #### L500.3400, L501.2300, L501.5200 #### [facility] [address] [place], [address] MAGNESIUM Collected: 07/20/2017 Status: F Source: [place] 6:24 AM [facility] REPOSITORY TYPE CODE TESTS RESULT OUT OF RANGE REFERENCE UNITS LAB L501.5200 1.8-2.4 mg/dL Normal MG 1.9 Performed By: #### L500.3400, L501.2300, L501.5200 #### [facility] [address] [place], [address] BEDSIDE GLUCOSE Collected: 07/20/2017 Status: F Source: [place] 1:52 AM [facility] REPOSITORY TYPE CODE TESTS RESULT OUT OF REFERENCE UNITS RANGE LAB L501.080 70-110 mg/dL High BEDSIDE GLU 314 Result Comment: MANAGEMENT OF PATIENT CARE PER NURSING PROTOCOL Performed By: #### L501.080 #### [facility] Point of Care [address] [place] [address] BEDSIDE GLUCOSE Collected: 07/19/2017 Status: F Source: [place] 9:28 PM [facility] REPOSITORY TYPE CODE TESTS RESULT OUT OF REFERENCE UNITS RANGE LAB L501.080 70-110 mg/dL High BEDSIDE GLU 316 Result Comment: MANAGEMENT OF PATIENT CARE PER NURSING PROTOCOL Performed By: #### L501.080 #### [facility] Point of Care [address] [place] [address] BEDSIDE GLUCOSE Collected: 07/19/2017 Status: F Source: [place] 7:42 PM [facility] REPOSITORY TYPE CODE TESTS RESULT OUT OF REFERENCE UNITS RANGE LAB L501.080 70-110 mg/dL High BEDSIDE GLU 297 Result Comment: MANAGEMENT OF PATIENT CARE PER NURSING PROTOCOL Performed By: #### L501.080 #### [facility] Point of Care [address] [place] [address] BEDSIDE GLUCOSE Collected: 07/19/2017 Status: F Source: [place] 4:30 PM [facility] REPOSITORY TYPE CODE TESTS RESULT OUT OF REFERENCE UNITS RANGE LAB L501.080 70-110 mg/dL High BEDSIDE GLU 400 Result Comment: MANAGEMENT OF PATIENT CARE PER NURSING PROTOCOL Performed By: #### L501.080 #### [facility] Point of Care [address] [place] [address] BEDSIDE GLUCOSE Collected: 07/19/2017 Status: F Source: [place] 11:54 AM [facility] REPOSITORY TYPE CODE TESTS RESULT OUT OF REFERENCE UNITS RANGE LAB L501.080 70-110 mg/dL High BEDSIDE GLU 363 Result Comment: MANAGEMENT OF PATIENT CARE PER NURSING PROTOCOL Performed By: #### L501.080 #### [facility] Point of Care [address] [place] [place] [address] BEDSIDE GLUCOSE Collected: 07/19/2017 Status: F Source: [place] 8:11 AM [facility] REPOSITORY TYPE CODE TESTS RESULT OUT OF REFERENCE UNITS RANGE LAB L501.080 70-110 mg/dL High BEDSIDE GLU 113 Result Comment: MANAGEMENT OF PATIENT CARE PER NURSING PROTOCOL Performed By: #### L501.080 #### [facility] Point of Care [address] [place] [address] BEDSIDE GLUCOSE Collected: 07/19/2017 Status: F Source: [place] 7:08 AM [facility] REPOSITORY TYPE CODE TESTS RESULT OUT OF REFERENCE UNITS RANGE LAB L501.080 70-110 mg/dL High BEDSIDE GLU 141 Result Comment: Dr Orders Followed Insulin Given MANAGEMENT OF PATIENT CARE PER NURSING PROTOCOL Performed By: #### L501.080 #### [facility] Point of Care [address] [place] [address] BASIC METABOLIC Collected: 07/19/2017 Status: F Source: [place] (B[place]) 7:05 AM [facility] REPOSITORY Order Comment: Comments: Call with results STAT TYPE CODE TESTS RESULT OUT OF RANGE REFERENCE UNITS LAB L501.0100 70-110 mg/dL High GLU 140 Result Comment: Fasting Glucose result greater than or equal to 126 mg/dL suggests DIABETES MELLITUS per A.D.A. criteria. LAB L501.1000 7-18 mg/dL Normal BUN 10 LAB L501.1100 0.70-1.30 mg/dL Normal CREAT,SERUM 0.78 Result Comment: The validity of the calculated GFR AND GFRAA in patients over 70 years has not been determined. Clinical correlation is essential. LAB L501.1110 >60 mL/min Normal EST GFR 137 Result Comment: Non- GFR Calc LAB L501.1115 >60 mL/min Normal EST GFR - AA 165 Result Comment: GFR Calc LAB L501.1255 ml/min Normal Estimated CRCL 129.04 LAB L501.1300 10-20 RATIO BUN/CRE Normal 12.8 LAB L501.2200 8.5-10 mg/dL Low .1 CA 8.0 LAB L501.5300 136-14 mmol/L 5 NA Normal 139 LAB L501.5600 3.5-5. mmol/L 1 K Normal 3.7 LAB L501.5900 98-107 mmol/L CL Normal 107 LAB L501.6100 21.0-3 mmol/L 2.0 CO2 Normal 23.0 LAB L501.6200 5-15 GAP Normal 9 Performed By: #### L500.2500 #### [facility] [address] [place], [address] BEDSIDE GLUCOSE Collected: 07/19/2017 Status: F Source: [place] 6:06 AM [facility] REPOSITORY TYPE CODE TESTS RESULT OUT OF REFERENCE UNITS RANGE LAB L501.080 70-110 mg/dL High BEDSIDE GLU 176 Result Comment: MANAGEMENT OF PATIENT CARE PER NURSING PROTOCOL Performed By: #### L501.080 #### [facility] Point of Care [address] [place] [address] BEDSIDE GLUCOSE Collected: 07/19/2017 Status: F Source: [place] 5:08 AM [facility] REPOSITORY TYPE CODE TESTS RESULT OUT OF REFERENCE UNITS RANGE LAB L501.080 70-110 mg/dL High BEDSIDE GLU 193 Result Comment: MANAGEMENT OF PATIENT CARE PER NURSING PROTOCOL Performed By: #### L501.080 #### [facility] Point of Care [address] [place] [address] CBC W/DIFF, AUTOMATED Collected: 07/19/2017 Status: F Source: [place] 5:00 AM [facility] REPOSITORY TYPE CODE TESTS RESULT OUT OF RANGE REFERENCE UNITS LAB L100.1000 4.4-11.0 K/mm3 Normal WBC 7.5 LAB L100.1200 4.6-6.2 M/mm3 Low RBC 4.22 LAB L100.1300 13.0-16.5 g/dl Normal HGB 13.1 LAB L100.1400 40-54 % Low HCT 39.3 LAB L100.1500 80-94 fL Normal MCV 93.1 LAB L100.1600 27.0-32.0 pg Normal MCH 31.0 LAB L100.1700 32-36 g/gl Normal MCHC 33.3 LAB L100.1810 11.6-14.6 % Normal RDW CV 12.7 LAB L100.1820 35.1-43.9 fl Normal RDW SD 42.9 LAB L100.1900 150-450 K/mm3 Normal PLT 256 LAB L100.2000 6.2-12.0 fl Normal MPV 9.4 LAB L100.2100 47-70 % Low NEUT% 46.7 LAB L100.2200 19-41 % Normal LY% 39.2 LAB L100.2300 0-10 % Normal MONO% 9.4 LAB L100.2400 0-5 % Normal EO% 3.5 LAB L100.2500 0-1 % Normal BASO% 0.3 LAB L100.2550 0.0-0.9 % Normal IM GRAN % 0.900 Result Comment: IG% - Immature Granulocytes (promyelocytes, myelocytes and metamyelocytes) > 1% indicates that a LEFT SHIFT is Present. LAB L100.2620 2.0-7.7 X10 3/uL Normal Absolute Neut 3.5 LAB L100.2720 0.83-4.51 X10 3/ul Normal Absolute Lymph 2.95 Performed By: #### L100.0100 #### [facility] [place], [address] LIVER PROFILE Collected: 07/19/2017 Status: F Source: [place] 5:00 AM [facility] REPOSITORY TYPE CODE TESTS RESULT OUT OF RANGE REFERENCE UNITS LAB L501.1500 6.4-8.2 g/dL Low T PROT 6.1 LAB L501.1800 3.4-5.0 g/dL Low ALB 2.8 Result Comment: Please note revised Albumin AND Globulin reference range effective 2017. LAB L501.1950 2.2-4.2 g/dL Normal GLOB 3.3 LAB L501.4100 15-37 U/L High AST 317 LAB L501.4305 52-171 U/L Normal ALK P 138 LAB L501.4405 12-78 U/L High ALT 212 LAB L501.4600 0.20-1.00 mg/dL Normal T BILI 0.40 LAB L501.4700 0.00-0.30 mg/dL Normal D BILI 0.12 Performed By: #### L500.3400, L501.2300, L501.5200 #### [facility] [address] [place], [address] PHOSPHORUS Collected: 07/19/2017 Status: F Source: [place] 5:00 AM [facility] REPOSITORY TYPE CODE TESTS RESULT OUT OF RANGE REFERENCE UNITS LAB L501.2300 2.5-4.9 mg/dL Low PHOS 2.4 Performed By: #### L500.3400, L501.2300, L501.5200 #### [facility] [address] [place], [address] MAGNESIUM Collected: 07/19/2017 Status: F Source: [place] 5:00 AM [facility] REPOSITORY TYPE CODE TESTS RESULT OUT OF RANGE REFERENCE UNITS LAB L501.5200 1.8-2.4 mg/dL Low MG 1.7 Performed By: #### L500.3400, L501.2300, L501.5200 #### [facility] [address] [place], [address] BEDSIDE GLUCOSE Collected: 07/19/2017 Status: F Source: [place] 4:03 AM [facility] REPOSITORY TYPE CODE TESTS RESULT OUT OF REFERENCE UNITS RANGE LAB L501.080 70-110 mg/dL High BEDSIDE GLU 163 Result Comment: Dr Delvalle Followed Insulin Given MANAGEMENT OF PATIENT CARE PER NURSING PROTOCOL Performed By: #### L501.080 #### [facility] Point of Care [address] [place] [address] BASIC METABOLIC Collected: 07/19/2017 Status: F Source: [place] ([place]) 3:00 AM [facility] REPOSITORY Order Comment: Comments: Call MD with results STAT TYPE CODE TESTS RESULT OUT OF RANGE REFERENCE UNITS LAB L501.0100 70-110 mg/dL High GLU 187 Result Comment: Fasting Glucose result greater than or equal to 126 mg/dL suggests DIABETES MELLITUS per A.D.A. criteria. LAB L501.1000 7-18 mg/dL Normal BUN 12 LAB L501.1100 0.70-1.30 mg/dL Normal CREAT,SERUM 0.83 Result Comment: The validity of the calculated GFR AND GFRAA in patients over 70 years has not been determined. Clinical correlation is essential. LAB L501.1110 >60 mL/min Normal EST GFR 128 Result Comment: Non- GFR Calc LAB L501.1115 >60 mL/min Normal EST GFR - AA 154 Result Comment: GFR Calc LAB L501.1255 ml/min Normal Estimated CRCL 117.59 LAB L501.1300 10-20 RATIO BUN/CRE Normal 14.5 LAB L501.2200 8.5-10 mg/dL Low .1 CA 8.2 LAB L501.5300 136-14 mmol/L 5 NA Normal 140 LAB L501.5600 3.5-5. mmol/L 1 K Normal 3.6 LAB L501.5900 98-107 mmol/L High CL 108 LAB L501.6100 21.0-3 mmol/L Low 2.0 CO2 20.0 LAB L501.6200 5-15 GAP Normal 12 Performed By: #### L500.2500 #### [facility] [address] [place], [place], [address] BEDSIDE GLUCOSE Collected: 07/19/2017 Status: F Source: [place] 2:57 AM [facility] REPOSITORY TYPE CODE TESTS RESULT OUT OF REFERENCE UNITS RANGE LAB L501.080 70-110 mg/dL High BEDSIDE GLU 169 Result Comment: MANAGEMENT OF PATIENT CARE PER NURSING PROTOCOL Performed By: #### L501.080 #### [facility] Point of Care [address] [place] [address] BEDSIDE GLUCOSE Collected: 07/19/2017 Status: F Source: [place] 1:59 AM [facility] REPOSITORY TYPE CODE TESTS RESULT OUT OF REFERENCE UNITS RANGE LAB L501.080 70-110 mg/dL High BEDSIDE GLU 201 Result Comment: MANAGEMENT OF PATIENT CARE PER NURSING PROTOCOL Performed By: #### L501.080 #### [facility] Point of Care [address] [place] [address] BEDSIDE GLUCOSE Collected: 07/19/2017 Status: F Source: [place] 12:57 AM [facility] REPOSITORY TYPE CODE TESTS RESULT OUT OF REFERENCE UNITS RANGE LAB L501.080 70-110 mg/dL High BEDSIDE GLU 239 Result Comment: MANAGEMENT OF PATIENT CARE PER NURSING PROTOCOL Performed By: #### L501.080 #### [facility] Point of Care [address] [place] [address] BEDSIDE GLUCOSE Collected: 07/19/2017 Status: F Source: [place] 12:06 AM [facility] REPOSITORY TYPE CODE TESTS RESULT OUT OF REFERENCE UNITS RANGE LAB L501.080 70-110 mg/dL High BEDSIDE GLU 212 Result Comment: Dr Delvalle Followed MANAGEMENT OF PATIENT CARE PER NURSING PROTOCOL Performed By: #### L501.080 #### [facility] Point of Care [address] [place] [address] BASIC METABOLIC Collected: 07/18/2017 Status: F Source: [place] PRO[place] (BMP) 11:15 PM [facility] REPOSITORY Order Comment: Comments: Call with results STAT TYPE CODE TESTS RESULT OUT OF RANGE REFERENCE UNITS LAB L501.0100 70-110 mg/dL High GLU 282 Result Comment: Glucose result greater than or equal to 200 mg/dL suggests DIABETES MELLITUS per A.D.A. criteria. LAB L501.1000 7-18 mg/dL Normal BUN 16 LAB L501.1100 0.70-1.30 mg/dL Normal CREAT,SERUM 0.81 Result Comment: The validity of the calculated GFR AND GFRAA in patients over 70 years has not been determined. Clinical correlation is essential. LAB L501.1110 >60 mL/min Normal EST GFR 130 Result Comment: Non- GFR Calc LAB L501.1115 >60 mL/min Normal EST GFR - AA 158 Result Comment: GFR Calc LAB L501.1255 ml/min Normal Estimated CRCL 120.49 LAB L501.1300 10-20 RATIO BUN/CRE Normal 19.7 LAB L501.2200 8.5-10 mg/dL Low .1 CA 7.8 LAB L501.5300 136-14 mmol/L 5 NA Normal 139 LAB L501.5600 3.5-5. mmol/L 1 K Normal 4.2 LAB L501.5900 98-107 mmol/L High CL 108 LAB L501.6100 21.0-3 mmol/L Low 2.0 CO2 15.0 LAB L501.6200 5-15 High GAP 16 Performed By: #### L500.2500 #### [facility] [address] [place], [address] BEDSIDE GLUCOSE Collected: 07/18/2017 Status: F Source: [place] 10:59 PM [facility] REPOSITORY TYPE CODE TESTS RESULT OUT OF REFERENCE UNITS RANGE LAB L501.080 70-110 mg/dL High BEDSIDE GLU 296 Result Comment: MANAGEMENT OF PATIENT CARE PER NURSING PROTOCOL Performed By: #### L501.080 #### [facility] Point of Care [address] [place] [address] BEDSIDE GLUCOSE Collected: 07/18/2017 Status: F Source: [place] 10:10 PM [facility] REPOSITORY TYPE CODE TESTS RESULT OUT OF REFERENCE UNITS RANGE LAB L501.080 70-110 mg/dL High BEDSIDE GLU 278 Result Comment: MANAGEMENT OF PATIENT CARE PER NURSING PROTOCOL Performed By: #### L501.080 #### [facility] Point of Care [address] [place] [address] BEDSIDE GLUCOSE Collected: 07/18/2017 Status: F Source: [place] 9:07 PM [facility] REPOSITORY TYPE CODE TESTS RESULT OUT OF REFERENCE UNITS RANGE LAB L501.080 70-110 mg/dL High BEDSIDE GLU 355 Result Comment: MANAGEMENT OF PATIENT CARE PER NURSING PROTOCOL Performed By: #### L501.080 #### [facility] Point of Care [address] [place] [address] PHOSPHORUS Collected: 07/18/2017 Status: F Source: [place] 8:15 PM [facility] REPOSITORY TYPE CODE TESTS RESULT OUT OF RANGE REFERENCE UNITS LAB L501.2300 2.5-4.9 mg/dL Normal PHOS 3.5 Performed By: #### L501.2300, L501.5200 #### [facility] [address] [place], [address] MAGNESIUM Collected: 07/18/2017 Status: F Source: [place] 8:15 PM [facility] REPOSITORY TYPE CODE TESTS RESULT OUT OF RANGE REFERENCE UNITS LAB L501.5200 1.8-2.4 mg/dL Normal MG 2.2 Performed By: #### L501.2300, L501.5200 #### [facility] [address] [place], [address] HEMOGLOBIN A1C Collected: 07/18/2017 Status: F Source: [place] 8:15 PM [facility] REPOSITORY TYPE CODE TESTS RESULT OUT OF RANGE REFERENCE UNITS LAB L501.9985 4.2-6.3 % High HGB A1C 11.5 Performed By: #### L501.9985 #### [facility] [address] [place], [address] BASIC METABOLIC Collected: 07/18/2017 Status: F Source: RIP PROFILE (BMP) 8:15 PM [facility] REPOSITORY Order Comment: Comments: Call MD with results STAT TYPE CODE TESTS RESULT OUT OF RANGE REFERENCE UNITS LAB L501.0100 70-110 mg/dL High alert GLU 460 Result Comment: Critical Result(s) Called at: 21:00:25 07/18/2017 by: Iwona ZAFAR Glucose result greater than or equal to 200 mg/dL suggests DIABETES MELLITUS per A.D.A. criteria. LAB L501.1000 7-18 mg/dL High BUN 21 LAB L501.1100 0.70-1.30 mg/dL Normal CREAT,SERUM 1.01 Result Comment: The validity of the calculated GFR AND GFRAA in patients over 70 years has not been determined. Clinical correlation is essential. LAB L501.1110 >60 mL/min Normal EST GFR 102 Result Comment: Non- GFR Calc LAB L501.1115 >60 mL/min Normal EST GFR - AA 123 Result Comment: GFR Calc LAB L501.1255 ml/min Normal Estimated CRCL 96.63 LAB L501.1300 10-20 RATIO High BUN/CRE 20.8 LAB L501.2200 8.5-10 mg/dL Normal .1 CA 9.4 LAB L501.5300 136-14 mmol/L Low 5 NA 133 LAB L501.5600 3.5-5. mmol/L Normal 1 K 4.3 LAB L501.5900 98-107 mmol/L Normal CL 101 LAB L501.6100 21.0-3 mmol/L Low 2.0 CO2 10.0 LAB L501.6200 5-15 High GAP 22 Performed By: #### L500.2500 #### [facility] [address] [place], [place], [address] HEPATITIS ABC PROFILE Collected: 07/18/2017 Status: F Source: [place] 8:15 PM [facility] REPOSITORY TYPE CODE TESTS RESULT OUT OF RANGE REFERENCE UNITS LAB L3100.0200 Negative Normal HEP A Negative IgM 6734 LAB L3100.0300 Negative Normal HEP A Negative AB,T.6726 LAB L3100.0400 Negative Normal HB Negative SURF AG LAB L3100.0440 Negative Normal HB Negative CORE [id number] LAB L3100.0460 Negative Normal HEP B Negative CORE,TOT LAB L3100.0510 . Normal Hep B Non Reactive Neal AB Result Comment: Non Reactive: Inconsistent with immunity, less than 10 mIU/mL Reactive: Consistent with immunity, greater than 9.9 mIU/mL LAB L3100.0750 0.0-0.9 s/co ratio Normal HCV Ab <0.1 LAB L3100.0765 . Normal COMMENT Comment Result Comment: Non reactive HCV antibody screen is consistent with no HCV infection, unless recent infection is suspected or other evidence exists to indicate HCV infection. Performed at: - [facility] [id number] Fine Patcher: Maximiliano Russell PhD, Phone: [phone] Performed By: #### L3000.0700 #### [facility] (refer to report for specific site) refer to report for address and phone number BEDSIDE GLUCOSE Collected: 07/18/2017 Status: F Source: [place] 7:49 PM [facility] REPOSITORY TYPE CODE TESTS RESULT OUT OF REFERENCE UNITS RANGE LAB L501.080 70-110 mg/dL High alert BEDSIDE GLU 473 Result Comment: Insulin Given Dr Orders Followed MANAGEMENT OF PATIENT CARE PER NURSING PROTOCOL Performed By: #### L501.080 #### [facility] Point of Care [address] [place] [address] M R STAPH AUREUS Collected: 07/18/2017 Status: F Source: [place] DNA BY PCR 7:30 PM [facility] REPOSITORY TYPE CODE TESTS RESULT OUT OF RANGE REFERENCE UNITS LAB L8200.1100 Negative Normal MRSA Negative RESULT Performed By: #### L8200.1000 #### [facility] [address] [facility] [address] Observed: 07/18/2017 Status: F Source: [place] RESPIRATORY PANEL 7:30 PM [facility] MOLECULAR REPOSITORY RP PANEL ADENOVIRUS Not Detected HUMAN METAPHNEUMO Not Detected INFLUENZA A Not Detected INFLUENZA A (SUBTYPE H1) Not Detected INFLUENZA A (SUBTYPE H3) Not Detected INFLUENZA B Not Detected PARAINFLUENZA 1 Not Detected PARAINFLUENZA 2 Not Detected PARAINFLUENZA 3 Not Detected PARAINFLUENZA 4 Not Detected RHINOVIRUS Not Detected RSV A Not Detected RSV B Not Detected NAAT METHOD Testing was performed using nucleic acid amplification Performed By: #### M100.638 #### [facility] [address] [facility] [id number] CHEST 1 VIEW Observed: 07/18/2017 Status: F Source: [place] 7:23 PM [facility] REPOSITORY [facility] [address] [place] [address] Chest 1 View MR#: [id number] Acct: [id number] Name: VAHID WANG Rep #: [id number] : 2000 M 16 From: Lulu Klein MD PCP: Scott Braden MD Status: ADM IN Study: Chest 1 View Date of Exam: 07/18/17 Exam# [id number] Ordering Dr: Mie Polk STUDY: X-RAY CHEST REASON FOR EXAM: Male, 16 years old. Cough. TECHNIQUE: Single frontal view of the chest. COMPARISON: June 15, 2017 chest x-ray FINDINGS: The lungs are clear and expanded. There is no demonstrated pleural abnormality. Normal size heart. Normal mediastinum and amber. Normal visualized pulmonary arteries. Normal visualized aortic arch and descending thoracic aorta. Normal visualized thoracic spine. Normal visualized ribs, clavicles, and shoulders. There is no demonstrated abnormality of the visualized soft tissue structures of the upper abdomen. RAD/Chest 1 View IMPRESSION: Normal x-ray examination of the chest. Electronically Signed: Lulu Klein MD at 21:42 EST Tel , Service support , CC: Scott Braden MD; Mei Polk Fork Operator: Signed LIVER Observed: 07/18/2017 Status: F Source: [place] 7:23 PM [facility] REPOSITORY [facility] Imaging Services [address] [place] [id number] Liver MR#: [id number] Acct: [id number] Name: VAHID WANG Rep #: [id number] : 2000 M 16 From: Lulu Klein MD PCP: Scott Braden MD Status: ADM IN Study: Liver Date of Exam: 07/18/17 Exam# [id number] Ordering Dr: Mei Polk STUDY: ABDOMINAL ULTRASOUND - RIGHT UPPER QUADRANT REASON FOR VISIT: Male, 16 years old. Abnormal labs TECHNIQUE: Ultrasound evaluation of the right upper quadrant was performed with real-time and static cancino-scale imaging. TECHNICAL QUALITY: Adequate. COMPARISON: May 10, 2016 CT scan abdomen and pelvis FINDINGS: Liver: The liver measures 22.3 cm. There is increased echogenicity consistent with fatty infiltration. The bile ducts are within normal limits. There is hepatic color flow. The direction of portal flow is hepatopetal. There is no demonstrated mass lesion. Gallbladder: Normal distended gallbladder. The gallbladder wall measures 2 mm. There is a negative sonographic Skinner's sign. There is no pericholecystic fluid. There are no gallstones. Common Bile Duct (C.B.D.): The common bile duct measures 3 mm. Pancreas: Normal size of the head, body and tail of the pancreas. There is normal echogenicity of the pancreas. There is no demonstrated pancreatic mass or cyst. Right Kidney: Normal size of the right kidney. The right kidney measures 12.4 x 5.8 x 4.6 cm. Normal renal cortex. The right cortex measures 1.3 cm. There is no demonstrated renal mass or cyst. There is no right hydronephrosis. US/Liver IMPRESSION: Elongated appearance of the right hepatic lobe suggestive of a Isaias's lobe. Enlarged liver. Mild fatty infiltration. No visualized focal mass. No evidence of cholelithiasis or evidence of cholecystitis. Electronically Signed: Lulu Klein MD at 21:47 EST Tel , Service support , CC: Scott Braden MD; Mei Polk Fork Operator: Signed HISTORY AND PHYSICAL Observed: 07/18/2017 Status: F Source: [place] EXAM 7:16 PM [facility] REPOSITORY [facility] Medical Records Department [address] [place] [address] History and Physical 07/18/17 1833 MR#: [id number] Acct: [id number] Name: VAHID WANG Rep #: [id number] : 2000 16 From: Mei Polk PCP: Scott Braden MD Status: ADM IN Y Location: ICU ICU- Problem List (1) DM I (diabetes mellitus, type I), uncontrolled Status: Chronic Qualifiers: Diabetes mellitus complication status: with unspecified complications Qualified Code(s): E10.8 - Type 1 diabetes mellitus with unspecified complications; E10.65 - Type 1 diabetes mellitus with hyperglycemia; E10.65 - Type 1 diabetes mellitus with hyperglycemia; E10.65 - Type 1 diabetes mellitus with hyperglycemia; E10.65 - Type 1 diabetes mellitus with hyperglycemia History of Present Illness Date of Admission: 07/18/17 Chief Complaint: Elevated BS, congestion, cough, facial pressure/pain, nausea. The patient is a 16 y/o M w/ PMHx: Diabetes mellitus type I, Prior Noted Elevated Liver Enzymes of unclear etiology who presents to the [facility] ED on 07/18/16 w/ history of ongoing facial maxillary and frontal pressure, headache concurrently, sore throat with notable post-nasal drip and associated cough, worse at night with generalized fatigue, malaise, arthralgia and myalgia for the last several days, evaluated per UC day prior w/ dx viral sinus infection with discharged to home and following continued symptoms ongoing in addition to elevated BS not improving despite insulin regimen. 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 He notes being complaint with his insulin. In the ED work-up included AF, HR 90-102, BP 106/67, RR 18, 99% on RA, CBC w/ WBC 11.6, Hgb 16.3, Plts 298 with L shift, BMP w/ Na 128, Chl 92, CO2 14, AG 22, BUN/Cr 23/1.05, glucose 659, TBili 1.30, AST/ALT 306/236, Alk phos 226, moderate acetone. Patient started on an insulin drip in the ED. Past Medical History Past Medical History (Chronic Problems): Chronic Problems DM I (diabetes mellitus, type I), uncontrolled (Chronic) Allergies No Known Allergies Allergy (Verified 07/18/17 16:24) Home Medications: Ambulatory Orders Medication Instructions Recorded Insulin Aspart [Novolog Flexpen] See Protocol [facility] 05/10/16 Surgical History: - - BL ear tubes. Psychiatric History: No pertinent psych hx Lives: With Family - Lives with his grandmother. Smoking Status: Never smoker Tobacco Use: Non-smoker Alcohol: None Drugs: None - *Family History Maternal History Items: Heart Disease, Renal Disease Paternal History Items: Heart Disease, - - Paternal family males w/ frequent hearing disorder. Review of Systems Constitutional: Reports: Anorexia, Malaise, Weakness, Fatigue. Denies: Chills, Fever, Weight Change HEENT: Reports: Head Aches, Nasal Congestion, Post Nasal Drip, Sinus Congestion, Sinus Drainage, Sore Throat Cardiovascular: Denies: Chest Pain, Palpitations Respiratory: Reports: Cough. Denies: Shortness of breath at rest, Sputum production Gastrointestinal: Reports: Nausea, Vomiting. Denies: Abdominal Pain Genitourinary: Denies: Dysuria Musculoskeletal: Reports: Joint Pain, Muscle pain. Denies: Joint Tenderness Skin: Denies: Rash, Wounds Neurological: Denies: Numbness, Tingling, Focal weakness Psychiatric: Denies: Anxiety, Depression, Homicidal Ideations, Suicidal Ideations Hematologic/ Lymphatic: Denies: Easy Bruising, Easy Bleeding VTE Information - Inpt Only VTE Present on Admission: No VTE Mechan Device Prophylaxis: SCD's VTE Pharm Prophylaxis ordered?: Yes Subjective: Seated upright in the ED bed, recent emesis with noted improvement following of his nausea complaint, NAD. Objective: Physical Examination: General: awake, alert, oriented x 3 and cooperative, seated upright in the ED bed, fatigued appearance, flushed. Skin: flushed color, turgor, no icterus, cyanosis. HEENT: AT/NC, EOMI, PERRLA, dry MM, maxillary and frontal TTP, post-OP stippling c/w post-nasal drip, erythema, no exudate, no carotid bruits or JVD noted. Lungs: CTA bilaterally, moderate effort, mild decrease BL bases, no rales, ronchi or wheezing. Heart: Tachycardic with regular rhythm; no gallop, rub audible. Abdomen: soft, NTTP, ND, normal BS, no HSM. Extremities: no cyanosis, clubbing, or edema. Neurological: patient awake, alert, oriented x 3; cognitive function intact; pupils equally reactive to light and accomodation; cranial nerves II-XII grossly normal, moving all 4 extremities, no focal deficits, strength severely decreased secondary to acute presentation. Psychiatric: affect appears fatigued, no acute evidence of depressive or anxiety feelings. - Physical Exam Vital Signs Temp Pulse Resp BP Pulse Ox 97.7 F L 76 18 119/72 98 07/18/17 16:25 07/18/17 18:05 07/18/17 18:05 07/18/17 18:05 07/18/17 18:05 Oxygen Delivery Method Room Air Weight: 132 lb Body Mass Index (BMI) 20.0 Finger Stick Blood Glucose 600 Laboratory Tests Past 24 Hrs POC Glucose POC Glucose > 500 H* Assessment/Plan The patient is a 16 y/o M w/ PMHx: Diabetes mellitus type I, Prior Noted Elevated Liver Enzymes of unclear etiology who presents to the [facility] ED on 07/18/16 w/ history of ongoing facial maxillary and frontal pressure, headache concurrently, sore throat with notable post-nasal drip and associated cough, worse at night with generalized fatigue, malaise, arthralgia and myalgia for the last several days, evaluated per day prior w/ dx viral sinus infection with discharged to home and following continued symptoms ongoing in addition to elevated BS not improving despite insulin regimen. (1) DKA w/ Diabetes mellitus type I: Admission CBC w/ WBC 11.6, Hgb 16.3, Plts 298 with L shift, BMP w/ Na 128, Chl 92, CO2 14, AG 22, BUN/Cr 23/1.05, glucose 659, TBili 1.30, AST/ALT 306/236, Alk phos 226, moderate acetone. Patient started on an insulin drip in the ED. Will admit to PCU as SD, continue on insulin drip, check serial K+, glucose w/ IVF changes pending these levels, serial chemistry, obtain mag, phos daily w/ repletion as needed, transition to home SC regimen when gap closed w/ overlap on drip, nutrition consultation. Encouraged diet and insulin regimen compliance. HgBA1c pending. (2) Acute Viral Syndrome, Sinusitis: Notable TTP frontal, maxillary sinus region, CBC w/ WBC elevation and shift, post-nasal drip notable with coughing complaint although generalized malaise, arthralgias and myalgias complaint. Will initiate augment for possible sinus infection, flonase, cepacol PRN, mucinex, obtain respiratory viral panel and CXR upon admission. (3) Elevated Liver Enzymes: Admission TBili 1.30, AST/ALT 306/236, Alk phos 226, noted prior AST/ALT 165/166, Alk phos 189 04/08/17 thus prior elevated, but worsened currently, likely secondary to acute DKA, dehydration but to be cautious will obtain hepatic profile, liver US and repeat hepatic panel in AM. (4) GERD: Famotidine. (5) DVT Prophylaxis: SCDs, heparin. Code Visit Inpatient E AND M: 82069 Init Hosp L3 07/18/171915 <Electronically signed by Mei Polk > Date Mei Polk Cosigner Signature: Date (if applicable) CC: Scott Braden MD; Mei Polk Signed EMERGENCY DEPARTMENT Observed: 07/18/2017 Status: F Source: [place] SUMMARY 6:18 PM [facility] REPOSITORY [facility] Medical Records Department [address] [facility] [place] [address] Emergency Department Summary 07/18/17 1656 MR#: [id number] Acct: [id number] Name: BRIONNA WANGJOSHUA Garcia Rep #: [id number] : 2000 16 From: Ming Sauer MD PCP: Scott Braden MD Status: REG ER - ER Visit Summary Date of Service: 07/18/17 Chief Complaint: Increased blood sugar History of Present Illness: The patient is a 16 M noted today that his blood sugar was elevating. He woke up and it was in the 300s. He then took 5 units of insulin and then it became 400. We rechecked again it was over 500. He denies nausea or vomiting. He currently states he has a viral sinusitis. He has not been on antibiotics for it. He denies taking any other medications for this. He does have a history of type 1 diabetes and has had DKA is most recently as 1 month ago. Physical Examination: Vital signs reviewed. HEENT exam unremarkable, except for swollen turbinates bilaterally. Heart is cardiac in regular rhythm without murmurs. Lungs are clear to auscultation. Abdomen is soft and nontender. Extremities reveal no edema. Skin exam normal. Neurologic exam normal. Test Results: White blood cell count 11.6. He has evidence of DKA with a sodium 128, anion gap 22, glucose 659. His total bilirubin is 1.3, ALT 236, AST 306 he does have moderate ketones Emergency Department Course and Treatment: She was given normal saline as well as Zofran. He will be started on insulin drip Treatment Plan: Admission for DKA Disposition: Admit Impression: DKA This note was generated with Poxel dictation software. It may contain incorrect words, spelling, and punctuation that were not noted in review of the chart prior to signing ED Disposition - Plan for ED Patient: Chief Complaint: Hyperglycemia Referrals: Scott Braden MD [Primary Care Provider] - What to do if you have Problems For any increased pain, shortness of breath, bleeding, nausea or vomiting, chest pain, or any unexpected problems, contact your Primary Care Provider. Call [facility] ([phone]) or report to the closest Emergency Room. Call 911 if necessary. 07/18/171817 <Electronically signed by Ming Sauer MD> Date Ming Sauer MD Cosigner Signature (If Indicated): Date CC: Scott Braden MD CBC W/DIFF, AUTOMATED Collected: 07/18/2017 Status: F Source: [place] 4:40 PM [facility] REPOSITORY TYPE CODE TESTS RESULT OUT OF RANGE REFERENCE UNITS LAB L100.1000 4.4-11.0 K/mm3 High WBC 11.6 LAB L100.1200 4.6-6.2 M/mm3 Normal RBC 5.12 LAB L100.1300 13.0-16.5 g/dl Normal HGB 16.3 LAB L100.1400 40-54 % Normal HCT 48.5 LAB L100.1500 80-94 fL High MCV 94.7 LAB L100.1600 27.0-32.0 pg Normal MCH 31.8 LAB L100.1700 32-36 g/gl Normal MCHC 33.6 LAB L100.1810 11.6-14.6 % Normal RDW CV 12.7 LAB L100.1820 35.1-43.9 fl High RDW SD 44.5 LAB L100.1900 150-450 K/mm3 Normal PLT 298 LAB L100.2000 6.2-12.0 fl Normal MPV 10.1 LAB L100.2100 47-70 % Normal NEUT% 69.7 LAB L100.2200 19-41 % Normal LY% 21.7 LAB L100.2300 0-10 % Normal MONO% 6.0 LAB L100.2400 0-5 % Normal EO% 1.3 LAB L100.2500 0-1 % Normal BASO% 0.3 LAB L100.2550 0.0-0.9 % High IM GRAN % 1.000 Result Comment: IG% - Immature Granulocytes (promyelocytes, myelocytes and metamyelocytes) > 1% indicates that a LEFT SHIFT is Present. LAB L100.2620 2.0-7.7 X10 3/uL High Absolute Neut 8.1 LAB L100.2720 0.83-4.51 X10 3/ul Normal Absolute Lymph 2.51 Performed By: #### L100.0100 #### [facility] [address] [place], [place], [id number] ACETONE SERUM Collected: 07/18/2017 Status: F Source: [place] 4:40 PM [facility] REPOSITORY TYPE CODE TESTS RESULT OUT OF REFERENCE UNITS RANGE LAB L501.6900 NEG High ACETONE SERUM MODERATE Performed By: #### L501.6900 #### [facility] [address] [place], [address] COMPREHENSIVE METABOLIC Collected: 07/18/2017 Status: F Source: [facility] 4:40 PM [facility] REPOSITORY TYPE CODE TESTS RESULT OUT OF RANGE REFERENCE UNITS LAB L501.0100 70-110 mg/dL High alert GLU 659 Result Comment: Critical Result(s) Called at: 17:22:35 07/18/2017 by: Iwona blanco TO RDONDA Glucose result greater than or equal to 200 mg/dL suggests DIABETES MELLITUS per A.D.A. criteria. LAB L501.1000 7-18 mg/dL High BUN 23 LAB L501.1100 0.70-1.30 mg/dL Normal CREAT,SERUM 1.05 Result Comment: The validity of the calculated GFR AND GFRAA in patients over 70 years has not been determined. Clinical correlation is essential. LAB L501.1110 >60 mL/min Normal EST GFR 97 Result Comment: Non- GFR Calc LAB L501.1115 >60 mL/min Normal EST GFR - AA 118 Result Comment: GFR Calc LAB L501.1255 ml/min Normal Estimated CRCL 96.62 LAB L501.1300 10-20 RATIO High BUN/CRE 21.9 LAB L501.1500 6.4-8. g/dL High 2 T PROT 8.6 LAB L501.1800 3.4-5. g/dL Normal 0 ALB 4.1 Result Comment: Please note revised Albumin AND Globulin reference range effective 2017. LAB L501.1950 2.2-4.2 g/dL High GLOB 4.5 LAB L501.2000 0.9-2.4 RATIO Normal A/G 0.9 LAB L501.2200 8.5-10.1 mg/dL Normal CA 9.6 LAB L501.4100 15-37 U/L High AST 306 LAB L501.4305 52-171 U/L High ALK P 226 LAB L501.4405 12-78 U/L High ALT 236 LAB L501.4600 0.20-1.00 mg/dL High T BILI 1.30 LAB L501.5300 136-145 mmol/L Low NA 128 LAB L501.5600 3.5-5.1 mmol/L Normal K 4.8 LAB L501.5900 98-107 mmol/L Low CL 92 LAB L501.6100 21.0-32.0 mmol/L Low CO2 14.0 LAB L501.6200 5-15 High GAP 22 Performed By: #### L500.4050 #### [facility] [address] [place], [address] BEDSIDE GLUCOSE Collected: 07/18/2017 Status: F Source: [place] 4:29 PM [facility] REPOSITORY TYPE CODE TESTS RESULT OUT OF REFERENCE UNITS RANGE LAB L501.080 70-110 mg/dL High alert BEDSIDE GLU > 500 Result Comment: MANAGEMENT OF PATIENT CARE PER NURSING PROTOCOL Performed By: #### L501.080 #### [facility] Point [place] [address] PROGRESS Observed: 07/18/2017 Status: COMPLETED Source: [place] 12:48 PM [facility] RE[facility] HNO ID: [id number] Author: Shawnee Lawrence) Mary Ann Service: (none) Author Type: Nurse Practitioner Type: Progress Notes Filed: 07/18/2017 2:15 PM Note Text: HPI Patient is a reliable 16 year old male here today for a 4 day history of nasal congestion, cough and sinus pressure. Patient states cough is worse in the morning and at night. Denies known fever. Has tried OTC medications with little relief. Nothing makes it better. Feels like it is getting worse. No other concerns at this time. Review of Systems Constitutional: Positive for chills and malaise/fatigue. Negative for fever. HENT: Positive for congestion, ear pain and sore throat. Respiratory: Positive for cough. Negative for sputum production, shortness of breath and wheezing. Cardiovascular: Negative. Gastrointestinal: Negative for nausea and vomiting. Musculoskeletal: Negative for myalgias. Neurological: Positive for headaches (sinus pressure). Endo/Heme/Allergies: Negative for environmental allergies. All other systems reviewed and are negative. PAST MEDICAL HISTORY Diagnosis Date - Attention deficit disorder with hyperactivity(314.01) - Conduct disorder, childhood onset type - Foot fracture, right growth plate involved - Fracture of clavicle, right, closed 2016 - Generalized convulsive epilepsy without mention of intractable epilepsy - Other abnormal heart sounds normal echocardiogram. Holter monitor that - Right wrist fracture - Sensorineural hearing loss, unspecified - Type I (juvenile type) diabetes mellitus without mention of complication, not stated as uncontrolled 05/19 - Unspecified viral meningitis PAST SURGICAL HISTORY Procedure Laterality Date - MYRINGOTOMY W TUBE,BILATERAL(2) ALLERGIES Review of patient's allergies indicates no known allergies. MEDICATIONS ondansetron orally disintegrating (ZOFRAN ODT) 4 mg disintegrating tablet Take 1 tablet by mouth every 8 hours as needed. glucagon, human recombinant, (GLUCAGON EMERGENCY KIT, HUMAN,) 1 mg injection use as directed, call if used insulin aspart (NOVOLOG FLEXPEN) 100 unit/mL inpn TAKE 1 UNIT FOR 7 GRAMS CARB UP TO 100 UNITS DAILY blood sugar diagnostic (FREESTYLE LITE STRIPS) test strip USE TO TEST UP TO 12 TIMES A DAY DIRECTED Insulin [place], Disposable, (BD ULTRAFINE III MINI PEN) 31 gauge x 3/16 ndle use as directed 10 times daily insulin glargine (LANTUS) 100 unit/mL (3 mL) inpn Inject 21 Units subcutaneously daily at bedtime. Insulin Syringe-Needle U-100 (BD INSULIN SYRINGE HALF UNIT) 0.3 mL 31 x 5/16 syrg use as directed Lancets lancets Use as instructed ranitidine (ZANTAC) 150 mg tablet Take 1 tablet by mouth twice daily. FAMILY HISTORY Problem Relation Age of Onset - renal failure [OTHER] Mother - Thyroid Father - adhd [OTHER] Father - hearing loss: congenital [OTHER] Father - hypercholesterlemia [OTHER] Father - Heart Paternal Grandmother NE - irritable bowel syndrome [OTHER] Sister - migraine [OTHER] Sister - Cancer Paternal Grandfather possibly lung cancer - Hearing Loss Paternal Grandfather congenital - Hearing Loss Brother congenital - adhd [OTHER] Brother 15 - sleeping disorder [OTHER] Brother Social History Substance Use Topics - Smoking status: Passive Smoke Exposure - Never Smoker - Smokeless tobacco: Never Used Comment: Grandmother smokes outside of the home - Alcohol use No BP 120/74 Pulse 80 Temp 36.2 ?C (97.2 ?F) (Tympanic) Resp 18 Wt 59.9 kg (132 lb) Physical Exam Constitutional: He is well-developed, well-nourished, and in no distress. Vital signs are normal. Mildly ill. HENT: Head: Normocephalic and atraumatic. Right Ear: Tympanic membrane, external ear and ear canal normal. Left Ear: Tympanic membrane, external ear and ear canal normal. Nose: Mucosal edema and rhinorrhea present. Right sinus exhibits no maxillary sinus tenderness and no frontal sinus tenderness. Left sinus exhibits no maxillary sinus tenderness and no frontal sinus tenderness. Mouth/Throat: Uvula is midline, oropharynx is clear and moist and mucous membranes are normal. No oropharyngeal exudate, posterior oropharyngeal edema or posterior oropharyngeal erythema. Neck: Neck supple. Cardiovascular: Normal rate, regular rhythm and normal heart sounds. Pulmonary/Chest: Effort normal and breath sounds normal. He has no wheezes. He has no rales. Lymphadenopathy: Head (right side): No submental, no submandibular and no tonsillar adenopathy present. Head (left side): No submental, no submandibular and no tonsillar adenopathy present. He has no cervical adenopathy. Submandibular fullness. Neurological: He is alert. Skin: Skin is warm and dry. Nursing note and vitals reviewed. ASSESSMENT/PLAN: 1. Viral URI with cough - ICD9: 465.9, ICD10: J06.9, B97.89 - Discussed viral etiology and rationale for treatment. - Symptomatic treatment with prn analgesia - Supportive care with fluids and rest - The patient may also use warm salt water gargles, throat lozenges and/or OTC throat spray as needed. - Follow up in 3-5 days if symptoms persist or sooner if worsening of symptoms - [id number] 2 MG-30 MG-10 MG/5 ML SYRUP Prescription instructions reviewed with patient as applicable. Patient advised if symptoms do not improve or if symptoms worsen sooner, to contact their primary care physician. Potential red flag symptoms discussed with the patient. Reviewed appropriate action plan to take if red flag symptoms occur. Patient agreeable to treatment plan. Shawnee Reese CNP CNOV Observed: 07/18/2017 Status: COMPLETED Source: [place] 12:30 PM [facility] REPOSITORY Office Visit ([facility]) VAHID WANG ([id number]) 2000 M Date Time Provider Department 07/18/17 12:30 PM SHAWNEE REESE) [facility] During your visit today, we recorded the following information about you: Temperature Pulse Respiration Blood pressure 97.2 degrees 80/minute 18/minute 120/74 Weight 59.9 kg Shawnee Reese CNP 07/18/2017 2:15 PM Signed HPI Patient is a reliable 16 year old male here today for a 4 day history of nasal congestion, cough and sinus pressure. Patient states cough is worse in the morning and at night. Denies known fever. Has tried OTC medications with little relief. Nothing makes it better. Feels like it is getting worse. No other concerns at this time. Review of Systems Constitutional: Positive for chills and malaise/fatigue. Negative for fever. HENT: Positive for congestion, ear pain and sore throat. Respiratory: Positive for cough. Negative for sputum production, shortness of breath and wheezing. Cardiovascular: Negative. Gastrointestinal: Negative for nausea and vomiting. Musculoskeletal: Negative for myalgias. Neurological: Positive for headaches (sinus pressure). Endo/Heme/Allergies: Negative for environmental allergies. All other systems reviewed and are negative. PAST MEDICAL HISTORY Diagnosis Date - Attention deficit disorder with hyperactivity(314.01) - Conduct disorder, childhood onset type - Foot fracture, right growth plate involved - Fracture of clavicle, right, closed 2016 - Generalized convulsive epilepsy without mention of intractable epilepsy - Other abnormal heart sounds normal echocardiogram. Holter monitor that - Right wrist fracture - Sensorineural hearing loss, unspecified - Type I (juvenile type) diabetes mellitus without mention of complication, not stated as uncontrolled 05/19 - Unspecified viral meningitis PAST SURGICAL HISTORY Procedure Laterality Date - MYRINGOTOMY W TUBE,BILATERAL(2) ALLERGIES Review of patient's allergies indicates no known allergies. MEDICATIONS ondansetron orally disintegrating (ZOFRAN ODT) 4 mg disintegrating tablet Take 1 tablet by mouth every 8 hours as needed. glucagon, human recombinant, (GLUCAGON EMERGENCY KIT, HUMAN,) 1 mg injection use as directed, call if used insulin aspart (NOVOLOG FLEXPEN) 100 unit/mL inpn TAKE 1 UNIT FOR 7 GRAMS CARB UP TO 100 UNITS DAILY blood sugar diagnostic (FREESTYLE LITE STRIPS) test strip USE TO TEST UP TO 12 TIMES A DAY DIRECTED Insulin [place], Disposable, (BD ULTRAFINE III MINI PEN) 31 gauge x 3/16ANDquot; ndle use as directed 10 times daily insulin glargine (LANTUS) 100 unit/mL (3 mL) inpn Inject 21 Units subcutaneously daily at bedtime. Insulin Syringe-Needle U-100 (BD INSULIN SYRINGE HALF UNIT) 0.3 mL 31 x 5/16ANDquot; syrg use as directed Lancets lancets Use as instructed ranitidine (ZANTAC) 150 mg tablet Take 1 tablet by mouth twice daily. FAMILY HISTORY Problem Relation Age of Onset - renal failure [OTHER] Mother - Thyroid Father - adhd [OTHER] Father - hearing loss: congenital [OTHER] Father - hypercholesterlemia [OTHER] Father - Heart Paternal Grandmother NE - irritable bowel syndrome [OTHER] Sister - migraine [OTHER] Sister - Cancer Paternal Grandfather possibly lung cancer - Hearing Loss Paternal Grandfather congenital - Hearing Loss Brother congenital - adhd [OTHER] Brother 15 - sleeping disorder [OTHER] Brother Social History Substance Use Topics - Smoking status: Passive Smoke Exposure - Never Smoker - Smokeless tobacco: Never Used Comment: Grandmother smokes outside of the home - Alcohol use No BP 120/74 Pulse 80 Temp 36.2 ?C (97.2 ?F) (Tympanic) Resp 18 Wt 59.9 kg (132 lb) Physical Exam Constitutional: He is well-developed, well-nourished, and in no distress. Vital signs are normal. Mildly ill. HENT: Head: Normocephalic and atraumatic. Right Ear: Tympanic membrane, external ear and ear canal normal. Left Ear: Tympanic membrane, external ear and ear canal normal. Nose: Mucosal edema and rhinorrhea present. Right sinus exhibits no maxillary sinus tenderness and no frontal sinus tenderness. Left sinus exhibits no maxillary sinus tenderness and no frontal sinus tenderness. Mouth/Throat: Uvula is midline, oropharynx is clear and moist and mucous membranes are normal. No oropharyngeal exudate, posterior oropharyngeal edema or posterior oropharyngeal erythema. Neck: Neck supple. Cardiovascular: Normal rate, regular rhythm and normal heart sounds. Pulmonary/Chest: Effort normal and breath sounds normal. He has no wheezes. He has no rales. Lymphadenopathy: Head (right side): No submental, no submandibular and no tonsillar adenopathy present. Head (left side): No submental, no submandibular and no tonsillar adenopathy present. He has no cervical adenopathy. Submandibular fullness. Neurological: He is alert. Skin: Skin is warm and dry. Nursing note and vitals reviewed. ASSESSMENT/PLAN: 1. Viral URI with cough - ICD9: 465.9, ICD10: J06.9, B97.89 - Discussed viral etiology and rationale for treatment. - Symptomatic treatment with prn analgesia - Supportive care with fluids and rest - The patient may also use warm salt water gargles, throat lozenges and/or OTC throat spray as needed. - Follow up in 3-5 days if symptoms persist or sooner if worsening of symptoms - OTEZWUZNZPJJHVJ-JAGLLJWIHEXCOZX-SK 2 MG-30 MG-10 MG/5 ML SYRUP Prescription instructions reviewed with patient as applicable. Patient advised if symptoms do not improve or if symptoms worsen sooner, to contact their primary care physician. Potential red flag symptoms discussed with the patient. Reviewed appropriate action plan to take if red flag symptoms occur. Patient agreeable to treatment plan. Shawnee Reese CNP Referring Provider: SELF [200] Allergies As of Date: 07/18/2017 (No Known Allergies) Date Reviewed: 07/18/2017 Reviewed by: Karyn Aldrich Ma - Fully Assessed Reason for Visit: Sinus Problem [99] Cmt: sinus pressure and drainage, green nasal discharge x 4 days Primary Visit Diagnosis:Viral URI with cough [J06.9, B97.89] Order(s):Odxanqydzbrzowd-Xeagczclb-WZ (BROMFED DM) 2-30-10 mg/5 mL syrupTake 5-10 mL by mouth four times daily as needed.Disp: 120 mLRfl: 0 Prescriptions as of 07/18/2017 Sig: ONDANSETRON 4 MG DISINTEGRATI* Take 1 tablet by mouth every * GLUCAGON (HUMAN RECOMBINANT) * use as directed, call if used INSULIN ASPART 100 UNIT/ML SOLANO* TAKE 1 UNIT FOR 7 GRAMS CARB * BLOOD SUGAR DIAGNOSTIC STRIPS USE TO TEST UP TO 12 TIMES A * PEN NEEDLE, DIABETIC 31 GAUGE* use as directed 10 times daily INSULIN GLARGINE 100 UNIT/ML * Inject 21 Units subcutaneousl* Patient taking differently: Inject 30 Units subcutaneousl* INSULIN SYRINGE-NEEDLE U-100 * use as directed LANCETS Use as instructed BROMPHENIRAMINE-PSEUDOEPHEDRI* Take 5-10 mL by mouth four ti* RANITIDINE 150 MG TABLET Take 1 tablet by mouth twice * Medication notes this encounter RANITIDINE 150 MG TABLET >> Karyn Aldrich Ma 07/18/2017 12:39 PM >> KARYN ALDRICH MA Jul 18, 2017 12:39 PM not taking Problem List As Of Date 07/18/2017 Noted Resolved Type 1 diabetes mellitus (HCC) [E10.9] INVALID FOR* Closed Buckle Fracture of Radius [TAW3658] INVALID FOR* ADD (Attention Deficit Disorder) [F98.8] INVALID FOR* Fatty liver disease, nonalcoholic [K76.0] INVALID FOR* Prescriptions ordered this encounter Disp Refills Start End QAFEVKJUGXTXIZE-GBFLMHLBPTODMDI-DQ 2* 120 * 0 07/18/2017 Route: ORAL Sig: Take 5-10 mL by mouth four times daily as needed. Encounter Status:Closed by SHAWNEE REESE CNP on 07/18/17 CNCO Observed: 07/18/2017 Status: COMPLETED Source: ARTHUR 12:00 AM [facility] REPOSITORY Letter Text [place] [facility] Mary Ann Ansari CNP [address] [place], [place] [address] 07/18/2017 TO WHOM IT MAY CONCERN: This is to confirm that Vahid Wang had an appointment and was seen at the [facility] in the Department of Urgent Care by Mary Ann Ansari CNP on 07/18/2017 and may return to work on 07/19/2017. Sincerely yours, Mary Ann Ansari CNP CNCO Observed: 07/18/2017 Status: COMPLETED Source: ARTHUR 12:00 AM [facility] REPOSITORY Letter Text [place] [facility] Mary Ann Ansari CNP [address] [place], [place] [address] 07/18/2017 TO WHOM IT MAY CONCERN: This is to confirm that Vahid Wang had an appointment and was seen at the [facility] in the Department of Urgent Care by Mary Ann Ansari CNP on 07/18/2017 and may return to school on 07/19/2017. Sincerely yours, Mary Ann Ansari CNP ALLERGIES ALLERGIES DATE TYPE / CODE NAME / CODE REACTION SEVERITY SOURCE 06/16/2018 Drug No Known Unknown [facility] Allergy/416 Allergies/A35210 Hospital 397637(SNOM 0388(RXNORM) Repository ED CT) Drug NO KNOWN [facility] Class/53998 ALLERGIES [facility] [place] 1003(SNOMED Repository CT) ENCOUNTERS ENCOUNTERS ADMIT/DISCHARGE ACCOUNT ADMITTING ENCOUNTER LOCATION SOURCE NUMBER CLASS 06/29/2018/06/29/20 [id number] Ambulatory [address] Repository 06/18/2018/06/19/20 [id number] Marianne Hancock Ambulatory Rip Rip 18 [facility] ing:ICURoom: Repository OPD69Rtu: 1 06/18/2018 [id number] Marianne Hancock Ambulatory BMSBuilding:Keisha Johnson MS.[facility] Repository 06/18/2018 [id number] Marianne Hancock Ambulatory BMSBuilding:Keisha Johnson MS.[facility] Repository 06/16/2018/06/16/20 [id number] Emergency [address] ing:ED Repository 06/15/2018/06/18/20 [id number] Ambulatory [address] Repository 05/18/2018/05/18/20 [id number] Ambulatory [address] Repository 05/10/2018/05/12/20 [id number] [facility] Inpatient [address] ing:RF8Zild: Repository UE173Uam: 1 05/10/2018 [id number] [facility] Ambulatory BMSBuilding:Keisha Erwin MS.[facility] Repository 05/10/2018 [id number] [facility] Ambulatory BMSBuilding:Keisha Erwin MS.CF.[facility] Repository 05/10/2018 [id number] White Ambulatory BMSBuilding:Keisha Erwin MS.[facility] Repository 05/10/2018 [id number] [facility] Ambulatory BMSBuilding:Keisha Erwin MS.[facility] Repository 04/10/2018/04/10/20 [id number] Ambulatory [address] Repository 04/10/2018/04/16/20 [id number] Ambulatory [address] Repository 03/23/2018/03/23/20 [id number] Ambulatory [address] Repository 03/20/2018/03/20/20 [id number] Ambulatory BMSBuilding:Keisha Erwin 18 .[facility] Repository 02/16/2018/02/17/20 [id number] Ambulatory [address] Repository 02/11/2018/02/13/20 [id number] Agyepong, Inpatient Rip Rip 18 [facility] ing:DR2Uoyl: Repository AJ442Gvz: 1 02/11/2018 [id number] Agyepong, Ambulatory BMSBuilding:Keisha Robertson MS.[facility] Repository 02/11/2018 [id number] Agyepong, Ambulatory BMSBuilding:Keisha Robertson MS.[facility] Repository 01/23/2018/01/25/[id number] [facility], [place]ulatory [place] [facility] ing:ICURoom: Repository XHQYV157Cuj: 1 01/23/2018 [id number] [facility] BMSBuilding:Keisha Cortez MS.[facility] Repository 01/23/[id number] [facility], Ambulatory BMSBuilding:Keisha Cortez MS.[facility] Repository 01/23/2018/01/25/20 [id number] Ambulatory BMSBuilding:W Rip Frederick [facility] Repository 01/16/2018/01/20/20 [id number] Ambulatory [address] Repository 01/16/2018/01/17/20 [id number] Ambulatory [address] Repository 01/16/2018/01/19/20 [id number] Ambulatory [address] Repository 01/09/2018/01/10/20 [id number] Ambulatory [address] Repository 01/08/2018/01/10/20 [id number] Ambulatory [address] Repository 01/03/2018/01/04/20 [id number] Emergency [address] ing:ED Repository 01/03/2018/01/05/20 [id number] Ambulatory [address] Repository 12/21/2017/12/22/19 [id number] Ambulatory BMSBuilding:Keisha Frederick MS.[facility] Repository 12/12/2017/12/14/19 [id number] Ambulatory [address] Repository 11/22/2017 [id number] Ambulatory BMSBuilding:Keisha Erwin MS.[facility] Repository 11/22/2017/11/23/19 [id number] Emergency [address] ing:ED Repository 11/08/2017/11/11/19 [id number] Ambulatory [address] Repository 10/27/2017/10/28/19 [id number] Ambulatory [address] Repository 10/26/2017/10/27/19 [id number] Mei Polk Ambulatory [address] ing:ICURoom: Repository [id number]: 1 10/26/2017 [id number] Mei Polk Ambulatory BMSBuilding:[place] Repository 10/17/2017 [id number] [facility] ing:LAB Repository 10/17/2017/10/18/19 [id number] Ambulatory BMSBuilding:B [place] 18 [place].[facility] Repository 10/03/2017/10/04/19 [id number] Ambulatory BMSBuilding:B [place] 18 [place].[facility] Repository 09/13/2017/09/13/19 [id number] Emergency [address] ing:ED Repository 09/07/2017/09/08/19 [id number] Tereletsky, Inpatient [place] 18 [place] Encounter [facility] ing:PCURoom: Repository [id number]: 1 09/07/2017 [id number] Eliesereletsky, Ambulatory BMSBuilding:B Rip [place].[facility] Repository 09/07/2017 [id number] Eliesereletsky, Ambulatory BMSBuilding:B Rip Froylan [place].[facility] Repository 09/01/2017 [id number] Ambulatory [facility] Repository 08/28/2017/09/01/19 [id number] Ambulatory [address] Repository 08/14/2017/08/14/19 [id number] Ambulatory BMSBuilding:B Rip 18 [place].[facility] Repository 08/03/2017/08/05/19 [id number] Pranay Solitario Inpatient Rip Rip 18 Encounter [facility] ing:PP3Jxwa: Repository UW483Tke: 1 08/03/2017 [id number] Pranay Solitario Ambulatory BMSBuilding:B [place] Repository 08/03/2017 [id number] Pranay Solitario Ambulatory BMSBuilding:Keisha Erwin MS.[facility] Repository 08/03/2017 [id number] Pranay Solitario Ambulatory BMSBuilding:Keisha Erwin MS.[facility] Repository 08/03/2017/08/05/19 [id number] Ambulatory BMSBuilding:W Rip 18 [facility] Repository 08/03/2017/08/03/19 [id number] Ambulatory [address] Repository 07/18/2017/07/20/19 [id number] Mei Polk Inpatient [place] 18 Encounter [facility] ing:UU9Bmxq: Repository ZI570Wil: 1 07/18/2017 [id number] Ambulatory BMSBuilding:Keisha Erwin MS.[facility] Repository 07/18/2017 [id number] Ambulatory BMSBuilding:Keisha Erwin MS.[facility] Repository 07/18/2017 [id number] Ambulatory BMSBuilding:Keisha Erwin [facility] Repository 07/18/2017/07/19/19 [id number] Ambulatory [address] Repository PAYERS PAYERS ENCOUNTER GUARANTOR PAYER SUBSCRIBER SOURCE 06/18/2018 VAHID [id number] Primary CALOB C [place] BRIEN Insurance:CAR[facility]OLYN [facility] Number: [id number] Hospital 43506Exv: 330 [id number] Repository [phone] () Date:2018-06-18 [address]ATTN: [place] [address]XE: 06/18/2018 Secondary NOT GIVENUNK Rip Insurance:SELF PAY [facility] Number: Effective Repository Date:2018-06-18 06/18/2018 VAHID [id number] Primary CALOB C [place] BRIEN [facility] Number: [id number] Hospital 646[address]Nye: 330 [id number] Repository [phone] () Date:2018-06-18P [address]ATTN: [place] [address]HP: 06/18/2018 Secondary NOT GIVENUNK Rip Insurance:SELF PAY [facility] Number: Effective Repository Date:2018-06-18 06/18/2018 VAHID Garcia [id number] Primary CALOB C Rip BRIEN Insurance:CARESOURCEP CLARKDOB: [facility] Number: [id number] Hospital [address]Xgu: (136) [id number] Repository [phone] (HP) Date:2018-06-18P [address]ATTN: [place] [address]ZE: 06/18/2018 Secondary NOT GIVENUNK [place] Insurance:SELF PAY [facility] Number: Effective Repository Date:2018-06-18 06/16/2018 VAHID [id number] Primary CALOB C [place] BRIEN Insurance:CARESOURCEP CLARKDOB: [facility] Number: [id number] Hospital 14548Kxm: ([phone]) [id number] Repository [phone] (HP) Date:2018-06-16P [address]ATTN: [place] [address]PN: 06/16/2018 Secondary NOT GIVENUNK [place] Insurance:SELF PAY [facility] Number: Effective Repository Date:2018-06-16 05/10/2018 VAHID [id number] Primary CALOB C [place] BRIEN Insurance:CARESOURCEP CLARKDOB: [facility] Number: [id number] Hospital 184[address]Lvx: [phone]) [id number] Repository [phone] (HP) Date:2018-05-09P [address]ATTN: [place] [address]HW: 05/10/2018 Secondary NOT GIVENUNK Rip Insurance:SELF PAY [facility] Number: Effective Repository Date:2018-05-09 05/10/2018 VAHID C [id number] Primary CALOB C Rip BRIEN Insurance:CARESOURCEP CLARKDOB: [facility] Number: [id number] Hospital [address]Aeu: [phone]) [id number] Repository [phone] (HP) Date:2018-05-09P [address]ATTN: [place] [address]ER: 05/10/2018 Secondary NOT GIVENUNK [place] Insurance:SELF PAY [facility] Number: Effective Repository Date:2018-05-10 05/10/2018 CALOB C [id number] Primary CALOB C Rip BRIEN Insurance:CARESOURCEP CLARKDOB: [facility] Number: [id number] Hospital 16005Arz: ([phone]) [id number] Repository [phone] (HP) Date:2018-05-09P [address]ATTN: [place] [address]LH: 05/10/2018 Secondary NOT GIVENUNK Rip Insurance:SELF PAY [facility] Number: Effective Repository Date:2018-05-10 05/10/2018 CALOB C [id number] Primary CALOB C [place]RIEN Insurance:CARESOURCEP CLARKDOB: [facility] Number: [id number] Hospital [address]9845Wyn: ([phone] [id number] Repository [phone] () Date:2018-05-09 [address]ATTN: [place] [address]BU: 05/10/2018 Secondary NOT GIVENUNK R[place] Insurance:SELF PAY [facility] Number: Effective Repository Date:2018-05-10 05/10/2018 CALOB C [id number] Primary CALOB C [place]RIEN Insurance:CARESOURCEP CLARKDOB: [facility] Number: [id number] Hospital [address]Tnu: [phone] [id number] Repository [phone] (HP) Date:2018-05-09 [address]ATTN: [place] [address]FZ: 05/10/2018 Secondary NOT GIVENUNK Rip Insurance:SELF PAY [facility] Number: Effective Repository Date:2018-05-10 03/20/2018 VAHID [id number] Primary CALOB C [place]RIEN Insurance:CARESOURCEP CLARKDOB: [facility] Number: [id number] Hospital 13557Zwe: ([phone]) [id number] Repository [phone] (HP) Date:2017 [address]ATTN: [place] [address]HY: 03/20/2018 Secondary NOT GIVENUNK Rip Insurance:SELF PAY [facility] Number: Effective Repository Date:2018-03-20 02/11/2018 VAHID [id number] Primary CALOB C Rip [place]RI[place] Insurance:CARESOURCEP CLARKDOB: [facility] Number: [id number] Hospital 578[address]Wfu: ([phone]) [id number] Repository [phone] (HP) Date:2018-02-11P [address]ATTN: [place] [address]YQ: 02/11/2018 Secondary NOT GIVENUNK [place] Insurance:SELF PAY [facility] Number: Effective Repository Date:2018-02-11 02/11/2018 VAHID [id number] Primary CALOB C [place]RIEN Insurance:CARESOURCEP CLARKDOB: [facility] Number: [id number] Hospital [address]Ktk: [phone] [id number] Repository [phone] (HP) Date:2018-02-11P [address]ATTN: [place] [address]FX: 02/11/2018 Secondary NOT GIVENUNK Rip Insurance:SELF PAY [facility] Number: Effective Repository Date:2018-02-11 02/11/2018 VAHID [id number] Primary CALOB C [place]RI[place] Insurance:CARESOURCEP CLARKDOB: [facility] Number: [id number] Hospital 619[address]Hpn: [phone]) [id number] Repository [phone] (HP) Date:2018-02-11P [address]ATTN: [place] [address]ON: 02/11/2018 Secondary NOT GIVENUNK R[place] Insurance:SELF PAY [facility] Number: Effective Repository Date:2018-02-11 01/23/2018 CALOB C [id number] Primary CALOB C Rip [place] Insurance:CARESOURCEP CLARKDOB: [facility] Number: [id number] Hospital [address]278Ftt: ([phone]) [id number] Repository [phone] (HP) Date:2018-01-23P [address]ATTN: [place] [address]RW: 01/23/2018 Secondary NOT GIVENUNK Rip Insurance:SELF PAY [facility] Number: Effective Repository Date:2018-01-23 01/23/2018 CALOB C [id number] Primary CALOB C Rip [place] Insurance:CARESOURCEP FELIPEDOB: [facility] Number: [id number] Hospital 42883Nwl: ([phone] [id number] Repository [phone] (HP) Date:2018-01-23P [address]ATTN: [place] [address]TZ: 01/23/2018 Secondary NOT GIVENUNK [place] Insurance:SELF PAY [facility] Number: Effective Repository Date:2018-01-23 01/23/2018 CALOB C [id number] Primary CALOB C Rip BRI[place] Insurance:CARESOURCEP FELIPEDOB: [facility] Number: [id number] Hospital 25578Pia: [phone]) [id number] Repository [phone] (HP) Date:2018-01-23 [address]ATTN: [place] [address]FZ: 01/23/2018 Secondary NOT GIVENUNK Rip Insurance:SELF PAY [facility] Number: Effective Repository Date:2018-01-23 01/23/2018 VAHID [id number] Primary CALOB C Rip [place] Insurance:CARESOURCEP CLARKDOB: [facility] Number: [id number] Hospital [address]Lyf: ([phone]) [id number] Repository [phone] (HP) Date:2018-01-23P [address]ATTN: [place] [address]DM: 01/23/2018 Secondary NOT GIVENUNK Rip Insurance:SELF PAY [facility] Number: Effective Repository Date:2018-01-23 01/03/2018 VAHID [id number] Primary CALOB C [place] Insurance:CARESOURCEP CLARKDOB: [facility] Number: [id number] Hospital 993[address]Zyp: ([phone]) [id number] Repository [phone] (HP) Date:2018-01-03P [address]ATTN: [place] [address]GM: 01/03/2018 Secondary NOT GIVENUNK [place] Insurance:SELF PAY [facility] Number: Effective Repository Date:2018-01-03 12/21/2017 VAHID Garcia [id number] Primary CALOB C Rip [place] Insurance:CARESOURCEP CLARKDOB: [facility] Number: [id number] Hospital 33867Wnf: ([phone]) [id number] Repository [phone] (HP) Date:2017-12-06P [address]ATTN: [place] [address]LU: 12/21/2017 Secondary NOT GIVENUNK [place] Insurance:SELF PAY [facility] Number: Effective Repository Date:2017-12-28 11/22/2017 VAHID C [id number] Primary CALOB C [place] Insurance:CARESOURCEP [facility]: [id number] Hospital [address]Exy: ([phone]) [id number] Repository [phone] (HP) Date:2017-10-17P [address]ATTN: [place] [address]QJ: 11/22/2017 Secondary NOT GIVENUNK Rip Insurance:SELF PAY [facility] Number: Effective Repository Date:2017-10-17 11/22/2017 CALOB C [id number] Primary CALOB C [place] Insurance:CARESOURCEP CLARKDOB: [facility] Number: [id number] Hospital [address]75[address]Lyq: ([phone]) [id number] Repository [phone] (HP) Date:2017-11-22 [address]ATTN: [place] [address]FU: 11/22/2017 Secondary NOT GIVENUNK [place] Insurance:SELF PAY [facility] Number: Effective Repository Date:2017-11-22 10/26/2017 CALOB C [id number] Primary CALOB C Rip [place] Insurance:CARESOURCEP CLARKDOB: [facility] Number: [id number] Hospital [address]Bgw: ([phone] [id number] Repository [phone] (HP) Date:2017-10-25 [address]ATTN: [place] [address]VX: 10/26/2017 Secondary NOT GIVENUNK R[place] Insurance:SELF PAY [facility] Number: Effective Repository Date:2017-10-25 10/26/2017 CALOB C [id number] Primary CALOB C Rip [place] Insurance:CARESOURCEP CLARKDOB: [facility] Number: [id number] Hospital 03901Ggx: ([phone]) [id number] Repository [phone] (HP) Date:2017-10-25 [address]ATTN: [place] [address]VA: 10/26/2017 Secondary NOT GIVENUNK [place] Insurance:SELF PAY [facility] Number: Effective Repository Date:2017-10-26 10/17/2017 CALJOSHUA C [id number] Primary CALOB C Rip [place] Insurance:CARESOURCEP CLARKDOB: [facility] Number: [id number] Hospital 924[address]Uwe: ([phone]) [id number] Repository [phone] () Date:2017-10-17P [address]ATTN: [place] [address]ZW: 10/17/2017 Secondary NOT GIVENUNK [place] Insurance:SELF PAY [facility] Number: Effective Repository Date:2017-10-17 10/17/2017 CALJOSHUA C [id number] Primary CALOB C [place] Insurance:CARESOURCEP CLARKDOB: [facility] Number: [id number] Hospital 05876Hhb: ([phone]) [id number] Repository [phone] () Date:2017-10-03P [address]ATTN: [place] [address]GX: 10/17/2017 Secondary NOT GIVENUNK [place] Insurance:SELF PAY [facility] Number: Effective Repository Date:2017-10-17 10/03/2017 CALJOSHUA C [id number] Primary CALOB C [place] Insurance:CARESOURCEP CLARKDOB: [facility] Number: [id number] Hospital [address]60[address]Kat: ([phone]) [id number] Repository [phone] () Date:2017-09-19P [address]ATTN: [place] [address]YL: 10/03/2017 Secondary NOT GIVENUNK [place] Insurance:SELF PAY [facility] Number: Effective Repository Date:2017-09-19 09/13/2017 CALOB C [id number] Primary CALOB C Rip [place] Insurance:CARESOURCEP CLARKDOB: [facility] Number: [id number] Hospital 76[address]Bqs: ([phone]) [id number] Repository [phone] () Date:2017-09-13P [address]ATTN: [place] [address]BQ: 09/13/2017 Secondary NOT GIVENUNK R[place] Insurance:SELF PAY [facility] Number: Effective Repository Date:2017-09-13 09/07/2017 CALOB C [id number] Primary [place]OB C [place] Insurance:CARESOURCEP CLARKDOB: [facility] Number: [id number] Hospital 297[address]Wwi: ([phone]) [id number] Repository [phone] () Date:2017-09-07P [address]ATTN: [place] [address]OV: 09/07/2017 Secondary NOT GIVENUNK [place] Insurance:SELF PAY [facility] Number: Effective Repository Date:2017-09-07 09/07/2017 CALOB C [id number] Primary CALOB C [place] Insurance:CARESOURCEP CLARKDOB: [facility] Number: [id number] [address]22[address]Xwe: [phone] [id number] Repository [phone] () Date:2017-09-07[address]ATTN: [place] [address]WQ: 09/07/2017 Secondary NOT GIVENUNK [place] Insurance:SELF PAY [facility] Number: Effective Repository Date:2017-09-07 09/07/2017 CALOB C [id number] Primary [place]RI[place] Insurance:CARESOURCEP CLARKDOB: [facility] Number: [id number] Hospital [address]80[address]Pvf: [phone] [id number] Repository [phone] (HP) Date:2017-09-07[address]ATTN: [place] [address]LU: 09/07/2017 Secondary NOT GIVENUNK [place] Insurance:SELF PAY [facility] Number: Effective Repository Date:2017-09-07 08/14/2017 VAHID [id number] Primary CALOB C Rip [place] Insurance:CARESOURCEP CLARKDOB: [facility] Number: [id number] Hospital [address]Kpq: [phone] [id number] Repository [phone] () Date:2017-08-09[address]ATTN: [place] [address]YK: 08/14/2017 Secondary NOT GIVENUNK [place] Insurance:SELF PAY [facility] Number: Effective Repository Date:2017-08-09 08/03/2017 Vahid [id number] Primary [place] R[place] Insurance:CARESOURCEP ClarkDOB: [facility] Number: [id number] Hospital [address]Kyx: [phone] [id number] Repository [phone] () Date:2017-08-03[address]ATTN: [place] [address]HU: 08/03/2017 Secondary NOT GIVENUNK [place] Insurance:SELF PAY [facility] Number: Effective Repository Date:2017-08-03 08/03/2017 Vahid Garcia [id number] Primary [place] Insurance:CARESOURCEP ClarkDOB: [facility] Number: [id number] Hospital [address]Dfj: [phone] [id number] Repository [phone] () Date:2017-08-03[address]ATTN: [place] [address]IL: 08/03/2017 Secondary NOT GIVENUNK [place] Insurance:SELF PAY [facility] Number: Effective Repository Date:2017-08-03 08/03/2017 Vahid [id number] Primary [place] Rip [place] Insurance:CARESOURCEP ClarkDOB: [facility] Number: [id number] Hospital [address]Fim: [phone] [id number] Repository [phone] () Date:2017-08-03[address]ATTN: [place] [address]EN: 08/03/2017 Secondary NOT GIVENUNK [place] Insurance:SELF PAY [facility] Number: Effective Repository Date:2017-08-03 08/03/2017 Calob C [id number] Primary [place] Insurance:CARESOURCEP ClarkDOB: [facility] Number: [id number] [facility] [address]Erx: [phone] [id number] Repository [phone] () Date:2017-08-03[address]ATTN: [place] [address]PR: 08/03/2017 Secondary NOT GIVENUNK [place] Insurance:SELF PAY [facility] Number: Effective Repository Date:2017-08-03 08/03/2017 CALOB C [id number] Primary CALOB C Rip [place] Insurance:CARESOURCEP CLARKDOB: [facility] Number: [id number] Hospital [address]Iyv: [phone] [id number] Repository [phone] () Date:2017-08-03[address]ATTN: [place] [address]WU: 08/03/2017 Secondary NOT GIVENUNK [place] Insurance:SELF PAY [facility] Number: Effective Repository Date:2017-08-03 07/18/2017 Calob C [id number] Primary Calob C Rip [place] Insurance:CARESOURCEP ClarkDOB: [facility] Number: [id number] Hospital [address]Ibd: [phone] [id number] Repository [phone] () Date:2017-07-18[address]ATTN: [place] [address]ZS: 07/18/2017 Secondary NOT GIVENUNK [place] Insurance:SELF PAY [facility] Number: Effective Repository Date:2017-07-18 07/18/2017 Vahid [id number] Primary [place] Insurance:CARESOURCEP [place]DOB: [place] Number: [id number] Hospital [address]Uej: [phone] [id number] Repository [phone] (HP) Date:2017-07-18[address]ATTN: [place] [address]KA: 07/18/2017 Secondary NOT GIVENUNK [place] Insurance:SELF PAY [facility] Number: Effective Repository Date:2017-07-18 07/18/2017 Vahid [id number] Primary Calob C Rip [place] Insurance:CARESOURCEP [facility]: [id number] [facility] [address]Gfc: [phone]) [id number] Repository [phone] (HP) Date:2017-07-18[address]ATTN: [place] [address]ZC: 07/18/2017 Secondary NOT GIVENUNK [place] Insurance:SELF PAY [facility] Number: Effective Repository Date:2017-07-18 07/18/2017 Vahid [id number] Primary [place] Insurance:CARESOURCEP [facility]: [id number] [facility] [address]Pyk: [phone] [id number] Repository [phone] (HP) Date:2017-07-18[address]ATTN: [place] [address]OK: 07/18/2017 Secondary NOT GIVENUNK [place] Insurance:SELF PAY [facility] Number: Effective Repository Date:2017-07-18
== END 2018-06-16 18:37 | disposition home or self-care (01) ==
PROVIDERS: Emergency Provider Emergency Medicine; Family Provider Pediatrics; PCP Pediatrics
DX: E11.65 Type 2 diabetes mellitus with hyperglycemia (principal); Z79.4 Long term (current) use of insulin; R19.7 Diarrhea, unspecified
CPT/HCPCS: 80048; 82962; 99283; J7030

== ENCOUNTER 2018-06-18 16:41 | Observation (INO) | payer MEDICAID, SELFPAY ==
[2018-06-18] VITALS (11 sets, daily range): BP systolic 101–134; BP diastolic 59–96; PULSE 85–129; RESP 12–21; TEMP 36.4–36.7; O2SAT 98–100; BMI 20.9; BMI 20.8
[2018-06-18 17:02] LABS: Bedside Glucose > 500 mg/dL (70-110)
[2018-06-18 17:33] LABS: Absolute Lymphocyte Count 2.42 X10^3/ul (0.83-4.51); Basophil# 0.03 X10^3/uL; Basophil% 0.3 % (0-1); Eosinophil# 0.09 X10^3/uL; Eosinophils% 0.9 % (0-5); Hematocrit 50.7 % (40-54); Hemoglobin 17.4 g/dl (13.0-16.5); Lymphocyte # 2.42 X10^3/ul (4.0); Lymphocyte % 24.3 % (19-41); Mean Corp Hgb Conc 34.3 g/gl (32-36); Mean Corpuscular Hgb 31.9 pg (27.0-32.0); Mean Corpuscular Volume 92.9 fL (80-94); Mean Platelet Vol. 9.7 fl (6.2-12.0); Monocyte# 0.36 X10^3/uL; Monocyte% 3.6 % (0-10); Neutrophil # 6.97 X10^3/uL (2.7-7.7); POSITIVE COUNT NO; POSITIVE DIFFERENTIAL NO; POSITIVE MORPHOLOGY NO; Platelet Count 285 K/mm3 (150-450); RBC Distribution Width CV 12.4 % (11.6-14.6); RBC Distribution Width SD 41.7 fl (35.1-43.9); Red Blood Count 5.46 M/mm3 (4.6-6.2)
--- NOTE | 2018-06-18 17:45 | ED.RN ---
critical glucose of [address] Dietrich notified. Orders received for 1L NS IV bolus.
[2018-06-18 17:46] LABS: Anion Gap 26 (5-15); BUN 21 mg/dL (7-18); BUN/Creat Ratio 17.4 RATIO (10-20); Calcium,Total 9.3 mg/dL (8.5-10.1); Chloride 98 mmol/L (98-107); Creatinine, Serum 1.21 mg/dL (0.70-1.30); EST Glomerular Filtration Rate 82 mL/min (>60); Est Glom Filt Rate - Afr Amer 99 mL/min (>60); Estimated Creatinine Clearance 84.42 ml/min; Glucose 588 mg/dL (74-106); Potassium 3.4 mmol/L (3.5-5.1); Sodium Level 135 mmol/L (136-145)
[2018-06-18] MEDS: 0.9% Normal Saline 1,000 ML 999 ML IV ×2 (18:08→19:38)
--- NOTE | 2018-06-18 19:10 | ED.VISSUMM ---
- ER Visit Summary Date of Service: 06/18/18 Chief Complaint: Elevated blood sugar History of Present Illness: The patient is a 17 M treatments and benign diabetes and multiple episodes of DKA. Patient was in the emergency department last several days with elevated blood sugar. States he is having diarrhea. Denies any vomiting. No fever. Physical Examination: Young male no acute distress. Vital signs are stable afebrile. Does not look septic or toxic. HEENT exam he does have dry mucous membranes. Neck nontender no lymphadenopathy. Lungs clear to auscultation bilaterally. Heart regular rhythm no murmur. Rate approximately 130. Abdomen is soft. Nondistended. Normal bowel sounds. No peritoneal signs. Patient is moving all 4 extremities. Skin unremarkable other than pale. Back nontender. Neurologically is awake alert with no focal motor deficits. Test Results: Count of 10. H&H is 17 and 50. Sodium 135. Potassium 3.4 anion gap is 26 CO2 is 11 blood sugar 588. Creatinine 1.2. Serum ketones are pending. Emergency Department Course and Treatment: Patient treated with 2 L normal saline. Started on insulin drip. Treatment Plan: Spoke to the hospitalist for an ICU admission. Disposition: Admission Impression: DKA This note was generated with [employer] dictation software. It may contain incorrect words, spelling, and punctuation that were not noted in review of the chart prior to signing ED Disposition - Plan for ED Patient: Chief Complaint: Hyperglycemia Referrals: Scott Gomez MD [Primary Care Provider] -
[2018-06-18 19:16] LABS: Bedside Glucose 286 mg/dL (70-110)
--- NOTE | 2018-06-18 19:34 | PCM.HP.STD ---
History of Present Illness Date of Admission: 06/18/18 Chief Complaint: Elevated blood sugar The patient is a 17 year old M with a known history of type 1 diabetes mellitus and multiple previous episodes of DKA. He was admitted in the ED with a complaint of elevated blood sugar despite taking his insulin. He was recently seen in the ED a few days ago with elevated blood sugar was managed for sinus infection he states he has been compliant with his medications but has not been eating or drinking very well. He denied any fever or chills, but admitted to a cough which is productive of greenish sputum. He had mild pleuritic chest pain with coughing. Denies any abdominal pain, diarrhea vomiting. Review of systems otherwise negative. In the ED, vitals were significant for pulse rate of 129 but otherwise stable. Chemistry shows sodium of 135 and potassium of 3.4 blood sugar 588, bicarb of 11 and anion gap of 26. CBC showed no leukocytosis and hemoglobin of 17.4. Was started on insulin drip and has been admitted to be managed for DKA. [] Past Medical History Past Medical History (Chronic Problems): Chronic Problems (Last Reviewed 03/20/18 @ 15:05 by Amanda Wilkinson) Anxiety and depression (Chronic) GERD (gastroesophageal reflux disease) (Chronic) Fatty liver (Chronic) Suicidal ideations (Chronic) DM I (diabetes mellitus, type I), uncontrolled (Chronic) Medical History: Medical History (Last Reviewed 03/20/18 @ 15:05 by Amanda Wilkinson) Anxiety disorder F41.9 Back problem M53.9 Bone fracture T14.8XXA Diabetes type 1, uncontrolled E10.65 Dx : age 2 Last exacerbation : DKA : 01/31 Hypoglycemic episode : never ER visit : 01/31 Hearing problem H91.90 Liver disease K76.9 Seizure R56.9 Vision problem H54.7 Allergies No Known Allergies Allergy (Verified 06/16/18 15:20) Home Medications: Ambulatory Orders Medication Instructions Recorded Insulin Glargine,Hum.rec.anlog 30 unit SQ BIDAC #1 insuln.pen 05/12/18 [Basaglar Kwikpen U-100] Insulin Lispro [Humalog KwikPen] 5 unit SC TIDAC #1 insuln.pen 05/12/18 Surgical History: Surgical History (Last Reviewed 03/20/18 @ 15:05 by Amanda Wilkinson) S/p bilateral myringotomy with tube placement Z96.22 Surgical History: - - BL ear tubes. Psychiatric History: Anxiety, Depression, Prior suicide attempt Lives: With Family Smoking Status: Never smoker - *Family History Maternal Family History: Family History (Last Reviewed 03/20/18 @ 15:05 by Amanda Wilkinson) Mother Kidney disease History Items: Heart Disease, Renal Disease Paternal Family History: Family History (Last Reviewed 03/20/18 @ 15:05 by Amanda Wilkinson) Mother Kidney disease History Items: Heart Disease, - - Paternal family males w/ frequent hearing disorder. Review of Systems Constitutional: Denies: Chills, Fever, Malaise, Weakness, Weight Change, Fatigue HEENT: Denies: Head Aches, Sinus Congestion, Sinus Drainage Cardiovascular: Denies: Chest Pain, Palpitations Respiratory: Reports: Cough, Sputum production. Denies: Shortness of Breath, Shortness of breath at rest, Shortness of breath upon exertion Gastrointestinal: Denies: Abdominal Pain, Nausea, Vomiting Genitourinary: Denies: Dysuria Musculoskeletal: Denies: Joint Pain, Joint Tenderness Skin: Denies: Rash, Wounds Neurological: Denies: Numbness, Tingling, Focal weakness Psychiatric: Denies: Anxiety, Depression, Homicidal Ideations, Suicidal Ideations Hematologic/ Lymphatic: Denies: Easy Bruising, Easy Bleeding VTE Information - Inpt Only VTE Present on Admission: No VTE Pharm Prophylaxis ordered?: Yes - Physical Exam General: Alert, Oriented x3, Cooperative, No apparent distress HEENT: Atraumatic, PERRLA, EOMI, Normocephalic Oral: Moist Mucosa Neck: Supple, No JVD, Negative Carotid Bruits Lungs: Clear to auscultation, Normal air movement Cardiovascular: Regular rate, Regular Rhythm, Normal S1, Normal S2, No murmurs Abdomen: Bowel Sounds Present, Soft, Tender - mild generalised tenderness Extremities: No clubbing, No cyanosis, No edema, Capillary Refill Less than 3 Seconds Skin: No rashes, No breakdown Musculoskeletal: No Tenderness to Palpation of Joints or Extremities Lymphatic: No Cervical, Supraclavicular, or Inguinal Adenopathy Neurological: Cranial nerves II-XII grossly intact Psych/Mental Status: Normal Affect, Appropriate, Alert and oriented to time, place, person, mood and affect Vital Signs Temp Pulse Resp BP Pulse Ox 97.5 F L 129 H 16 134/96 H 99 06/18/18 16:42 06/18/18 16:42 06/18/18 16:42 06/18/18 16:42 06/18/18 16:42 Oxygen Delivery Method Room Air Weight: 134 lb Body Mass Index (BMI) 20.9 Finger Stick Blood Glucose 107 Laboratory Tests Past 24 Hrs 06/18/18 06/18/18 17:07 17:07 WBC 10.0 RBC 5.46 Hgb 17.4 H Hct 50.7 MCV 92.9 MCH 31.9 MCHC 34.3 RDW 12.4 RDW Differential 41.7 Plt Count 285 MPV 9.7 Immature Gran % (Auto) 0.900 Neut % (Auto) 70.0 Lymph % (Auto) 24.3 [place] % (Auto) 3.6 Eos % (Auto) 0.9 Baso % (Auto) 0.3 Absolute Neuts (auto) 7.0 Absolute Lymphs (auto) 2.42 Total Counted Not Reportable Sodium 135 L Potassium 3.4 L Chloride 98 Carbon Dioxide 11.0 L Anion Gap 26 H BUN 21 H Creatinine 1.21 Estim Creat Clear Calc 84.42 Est GFR (MDRD) Af Amer 99 Est GFR (MDRD) Non-Af 82 BUN/Creatinine Ratio 17.4 Glucose 588 H* Calcium 9.3 POC Glucose 06/18/18 06/18/18 19:10 16:53 POC Glucose 286 H > 500 H* Assessment/Plan All Active Problems (Last Reviewed 03/20/18 @ 15:05 by Amanda Wilkinson) DKA, type 1 (Acute) DKA (diabetic ketoacidoses) (Acute) 17-year-old male with known history of abuse mellitus presenting with DKA 1. DKA likely due to noncompliance admitted with blood sugar of 588 and anion gap of 24, as well as bicarb of 11 says he has been compliant with his meds, but he has had numerous admissions for DKA due to noncompliance, leading me to think this may be the reason now also CBC showed no leukocytosis. Admit to ICU blood sugar at time of review was down to 288. Will continue insulin drip until gap closes and then will transition to subcut insulin at his current home dose of basaglar 30IU bid keep NPO whilst on insulin drip check BMP q4hrs will hydrate with IVF NS with 40mEQ of KCl at 150cc/hr; swich to IVF D5 1/2 NS when blood sugar falls to <250 2. Hyponatremia: likely due to hyperglycemia. Corrected for blood sugar, sodium is 143. Will monitor 3. Hypokalemia: K is 3.4. Will replace and monitor. On IVF NS with KCl DVT prophylaxis: heparin GI prophylaxis: famotidine Code Visit Inpatient E&M: 22832 Init Hosp L3
--- NOTE | 2018-06-18 19:39 | HP.PCM_ITS ---
History of Present Illness Date of Admission: 06/18/18 Chief Complaint: Elevated blood sugar The patient is a 17 year old M with a known history of type 1 diabetes mellitus and multiple previous episodes of DKA. He was admitted in the ED with a complaint of elevated blood sugar despite taking his insulin. He was recently seen in the ED a few days ago with elevated blood sugar was managed for sinus infection he states he has been compliant with his medications but has not been eating or drinking very well. He denied any fever or chills, but admitted to a cough which is productive of greenish sputum. He had mild pleuritic chest pain with coughing. Denies any abdominal pain, diarrhea vomiting. Review of systems otherwise negative. In the ED, vitals were significant for pulse rate of 129 but otherwise stable. Chemistry shows sodium of 135 and potassium of 3.4 blood sugar 588, bicarb of 11 and anion gap of 26. CBC showed no leukocytosis and hemoglobin of 17.4. Was started on insulin drip and has been admitted to be managed for DKA. [] Past Medical History Past Medical History (Chronic Problems): Chronic Problems (Last Reviewed 03/20/18 @ 15:05 by Amanda Wilkinson) Anxiety and depression (Chronic) GERD (gastroesophageal reflux disease) (Chronic) Fatty liver (Chronic) Suicidal ideations (Chronic) DM I (diabetes mellitus, type I), uncontrolled (Chronic) Medical History: Medical History (Last Reviewed 03/20/18 @ 15:05 by Amanda Wilkinson) Anxiety disorder F41.9 Back problem M53.9 Bone fracture T14.8XXA Diabetes type 1, uncontrolled E10.65 Dx : age 2 Last exacerbation : DKA : 01/31 Hypoglycemic episode : never ER visit : 01/31 Hearing problem H91.90 Liver disease K76.9 Seizure R56.9 Vision problem H54.7 Allergies No Known Allergies Allergy (Verified 06/16/18 15:20) Home Medications: Ambulatory Orders Medication Instructions Recorded Insulin Glargine,Hum.rec.anlog 30 unit SQ BIDAC #1 insuln.pen 05/12/18 [Basaglar Kwikpen U-100] Insulin Lispro [Humalog KwikPen] 5 unit SC TIDAC #1 insuln.pen 05/12/18 Surgical History: Surgical History (Last Reviewed 03/20/18 @ 15:05 by Amanda Wilkinson) S/p bilateral myringotomy with tube placement Z96.22 Surgical History: - - BL ear tubes. Psychiatric History: Anxiety, Depression, Prior suicide attempt Lives: With Family Smoking Status: Never smoker - *Family History Maternal Family History: Family History (Last Reviewed 03/20/18 @ 15:05 by Amanda Wilkinson) Mother Kidney disease History Items: Heart Disease, Renal Disease Paternal Family History: Family History (Last Reviewed 03/20/18 @ 15:05 by Amanda Wilkinson) Mother Kidney disease History Items: Heart Disease, - - Paternal family males w/ frequent hearing disorder. Review of Systems Constitutional: Denies: Chills, Fever, Malaise, Weakness, Weight Change, Fatigue HEENT: Denies: Head Aches, Sinus Congestion, Sinus Drainage Cardiovascular: Denies: Chest Pain, Palpitations Respiratory: Reports: Cough, Sputum production. Denies: Shortness of Breath, Shortness of breath at rest, Shortness of breath upon exertion Gastrointestinal: Denies: Abdominal Pain, Nausea, Vomiting Genitourinary: Denies: Dysuria Musculoskeletal: Denies: Joint Pain, Joint Tenderness Skin: Denies: Rash, Wounds Neurological: Denies: Numbness, Tingling, Focal weakness Psychiatric: Denies: Anxiety, Depression, Homicidal Ideations, Suicidal Ideations Hematologic/ Lymphatic: Denies: Easy Bruising, Easy Bleeding VTE Information - Inpt Only VTE Present on Admission: No VTE Pharm Prophylaxis ordered?: Yes - Physical Exam General: Alert, Oriented x3, Cooperative, No apparent distress HEENT: Atraumatic, PERRLA, EOMI, Normocephalic Oral: Moist Mucosa Neck: Supple, No JVD, Negative Carotid Bruits Lungs: Clear to auscultation, Normal air movement Cardiovascular: Regular rate, Regular Rhythm, Normal S1, Normal S2, No murmurs Abdomen: Bowel Sounds Present, Soft, Tender - mild generalised tenderness Extremities: No clubbing, No cyanosis, No edema, Capillary Refill Less than 3 Seconds Skin: No rashes, No breakdown Musculoskeletal: No Tenderness to Palpation of Joints or Extremities Lymphatic: No Cervical, Supraclavicular, or Inguinal Adenopathy Neurological: Cranial nerves II-XII grossly intact Psych/Mental Status: Normal Affect, Appropriate, Alert and oriented to time, place, person, mood and affect Vital Signs Temp Pulse Resp BP Pulse Ox 97.5 F L 129 H 16 134/96 H 99 06/18/18 16:42 06/18/18 16:42 06/18/18 16:42 06/18/18 16:42 06/18/18 16:42 Oxygen Delivery Method Room Air Weight: 134 lb Body Mass Index (BMI) 20.9 Finger Stick Blood Glucose 107 Laboratory Tests Past 24 Hrs 06/18/18 06/18/18 17:07 17:07 WBC 10.0 RBC 5.46 Hgb 17.4 H Hct 50.7 MCV 92.9 MCH 31.9 MCHC 34.3 RDW 12.4 RDW Differential 41.7 Plt Count 285 MPV 9.7 Immature Gran % (Auto) 0.900 Neut % (Auto) 70.0 Lymph % (Auto) 24.3 [place] % (Auto) 3.6 Eos % (Auto) 0.9 Baso % (Auto) 0.3 Absolute Neuts (auto) 7.0 Absolute Lymphs (auto) 2.42 Total Counted Not Reportable Sodium 135 L Potassium 3.4 L Chloride 98 Carbon Dioxide 11.0 L Anion Gap 26 H BUN 21 H Creatinine 1.21 Estim Creat Clear Calc 84.42 Est GFR (MDRD) Af Amer 99 Est GFR (MDRD) Non-Af 82 BUN/Creatinine Ratio 17.4 Glucose 588 H* Calcium 9.3 POC Glucose 06/18/18 06/18/18 19:10 16:53 POC Glucose 286 H > 500 H* Assessment/Plan All Active Problems (Last Reviewed 03/20/18 @ 15:05 by Amanda Wilkinson) DKA, type 1 (Acute) DKA (diabetic ketoacidoses) (Acute) 17-year-old male with known history of abuse mellitus presenting with DKA 1. DKA likely due to noncompliance * admitted with blood sugar of 588 and anion gap of 24, as well as bicarb of 11 * says he has been compliant with his meds, but he has had numerous admissions for DKA due to noncompliance, leading me to think this may be the reason now also * CBC showed no leukocytosis. * Admit to ICU * blood sugar at time of review was down to 288. Will continue insulin drip until gap closes and then will transition to subcut insulin at his current home dose of basaglar 30IU bid * keep NPO whilst on insulin drip * check BMP q4hrs * will hydrate with IVF NS with 40mEQ of KCl at 150cc/hr; swich to IVF D5 1/2 NS when blood sugar falls to <250 2. Hyponatremia: likely due to hyperglycemia. Corrected for blood sugar, sodium is 143. Will monitor 3. Hypokalemia: K is 3.4. Will replace and monitor. On IVF NS with KCl DVT prophylaxis: heparin GI prophylaxis: famotidine Code Visit Inpatient E&M: [id number] Init Hosp L3
[2018-06-18 20:11] LABS: Bedside Glucose 180 mg/dL (70-110)
[2018-06-18 20:31] LABS: Bedside Glucose 168 mg/dL (70-110)
[2018-06-18] MEDS: Heparin Injection (Vial) 5,000 UNIT/ML VIAL 5000 UNIT SC (21:29)
[2018-06-18 21:35] LABS: Bedside Glucose 156 mg/dL (70-110)
[2018-06-18 21:39] LABS: Anion Gap 16 (5-15); BUN 16 mg/dL (7-18); Calcium,Total 8.4 mg/dL (8.5-10.1); Chloride 109 mmol/L (98-107); Creatinine, Serum 1.07 mg/dL (0.70-1.30); EST Glomerular Filtration Rate 94 mL/min (>60); Est Glom Filt Rate - Afr Amer 114 mL/min (>60); Estimated Creatinine Clearance 94.71 ml/min; Glucose 176 mg/dL (74-106); Potassium 3.4 mmol/L (3.5-5.1); Sodium Level 143 mmol/L (136-145)
[2018-06-18 22:36] LABS: Bedside Glucose 103 mg/dL (70-110)
[2018-06-18 23:41] LABS: Bedside Glucose 111 mg/dL (70-110)
[2018-06-19] VITALS (11 sets, daily range): BP systolic 101–130; BP diastolic 55–74; PULSE 80–93; RESP 14–22; TEMP 36.4–36.8; O2SAT 96–100
[2018-06-19 00:56] LABS: Bedside Glucose 162 mg/dL (70-110)
[2018-06-19 00:56] LABS: Anion Gap 11 (5-15); BUN 13 mg/dL (7-18); BUN/Creat Ratio 17.7 RATIO (10-20); Calcium,Total 7.9 mg/dL (8.5-10.1); Chloride 109 mmol/L (98-107); Creatinine, Serum 0.73 mg/dL (0.70-1.30); EST Glomerular Filtration Rate 146 mL/min (>60); Est Glom Filt Rate - Afr Amer 176 mL/min (>60); Estimated Creatinine Clearance 138.82 ml/min; Glucose 151 mg/dL (74-106); Potassium 3.3 mmol/L (3.5-5.1); Sodium Level 141 mmol/L (136-145)
[2018-06-19 01:41] LABS: Bedside Glucose 103 mg/dL (70-110)
[2018-06-19 02:40] LABS: Bedside Glucose 118 mg/dL (70-110)
[2018-06-19 03:31] LABS: Bedside Glucose 124 mg/dL (70-110)
[2018-06-19 04:36] LABS: Bedside Glucose 113 mg/dL (70-110)
[2018-06-19 04:41] LABS: Absolute Lymphocyte Count 2.29 X10^3/ul (0.83-4.51); Absolute Neutrophil Count 3.9 X10^3/uL (2.0-7.7); Basophil# 0.02 X10^3/uL; Basophil% 0.3 % (0-1); Eosinophil# 0.12 X10^3/uL; Eosinophils% 1.7 % (0-5); Hematocrit 41.1 % (40-54); Hemoglobin 14.4 g/dl (13.0-16.5); Lymphocyte # 2.29 X10^3/ul (4.0); Lymphocyte % 32.3 % (19-41); Mean Corpuscular Hgb 31.5 pg (27.0-32.0); Mean Corpuscular Volume 89.9 fL (80-94); Monocyte# 0.67 X10^3/uL; Monocyte% 9.4 % (0-10); Neutrophil # 3.93 X10^3/uL (2.7-7.7); Neutrophil % 55.3 % (47-70); Platelet Count 226 K/mm3 (150-450); RBC Distribution Width CV 11.9 % (11.6-14.6); RBC Distribution Width SD 38.5 fl (35.1-43.9); Red Blood Count 4.57 M/mm3 (4.6-6.2); White Blood Count 7.1 K/mm3 (4.4-11.0)
[2018-06-19 04:42] LABS: POSITIVE COUNT NO; POSITIVE DIFFERENTIAL NO; POSITIVE MORPHOLOGY NO
[2018-06-19 04:53] LABS: Anion Gap 13 (5-15); BUN 11 mg/dL (7-18); BUN/Creat Ratio 13.9 RATIO (10-20); Calcium,Total 8.2 mg/dL (8.5-10.1); Chloride 108 mmol/L (98-107); Creatinine, Serum 0.79 mg/dL (0.70-1.30); EST Glomerular Filtration Rate 134 mL/min (>60); Est Glom Filt Rate - Afr Amer 162 mL/min (>60); Estimated Creatinine Clearance 128.28 ml/min; Glucose 125 mg/dL (74-106); Potassium 3.4 mmol/L (3.5-5.1); Sodium Level 143 mmol/L (136-145)
[2018-06-19 05:56] LABS: Bedside Glucose 150 mg/dL (70-110)
[2018-06-19 06:01] LABS: Magnesium 1.7 mg/dL (1.6-2.6)
[2018-06-19 06:14] LABS: Phosphorus 2.8 mg/dL (2.5-4.9)
[2018-06-19 06:36] LABS: Bedside Glucose 178 mg/dL (70-110)
--- NOTE | 2018-06-19 07:03 | PN_ITS ---
Subjective: Patient with no acute events overnight per self and per nursing report. Patient notes he is feeling remarkably improved, less fatigued with anion gap closure and transition to subcu insulin, insulin sliding scale with initiation of diet. Patient upright in the ICU this morning eating a diet and stating he feels back to his baseline. He does note that he was taking Augmentin and had only taken 3 days of his course for sinusitis with ongoing mild facial discomfort and pressure. Patient denies fevers, chills, nausea, emesis, abdominal pain, chest pain or dyspnea. Objective: Physical Examination: General: awake, alert, oriented x 3 and cooperative, seated upright in the ICU bed in no apparent distress. Skin: normal color, turgor, no icterus, cyanosis. HEENT: AT/NC, EOMI, PERRLA, MMM, mild TTP maxillary regions, frontal regions, boggy turbinates bilaterally, posterior oropharynx with mild erythema, stippling with postnasal drip. Lungs: CTA bilaterally, moderate effort, mild decrease BL bases, no rales, ronchi or wheezing. Heart: Regular rate and rhythm; no gallop, rub audible. Abdomen: soft, NTTP, ND, normal BS, no HSM. Extremities: no cyanosis, clubbing, or edema. Neurological: patient awake, alert, oriented x 3; cognitive function intact; pupils equally reactive to light and accomodation; cranial nerves II-XII grossly normal, moving all 4 extremities, no focal deficits, strength, mild global decrease given recent acute presentation. Psychiatric: affect appears normal, no acute evidence of depressive or anxiety feelings. Vitals/I&O's: Vital Signs Temp Pulse Resp BP Pulse Ox 97.5 F L 81 16 119/61 99 06/19/18 05:00 06/19/18 06:00 06/19/18 06:00 06/19/18 06:00 06/19/18 06:00 Oxygen Delivery Method Room Air Weight: 134 lb 4.184 oz Body Mass Index (BMI) 20.8 Finger Stick Blood Glucose 124 Intake and Output for Last 24 Hours 06/17/18 06/18/18 06/19/18 23:59 23:59 23:59 Intake Total 1152.6 / 1152.6 Output Total 425 / 425 Balance 727.6 / 727.6 Laboratory Results 06/18/18 16:53: POC Glucose > 500 H* 06/18/18 17:07: WBC 10.0, RBC 5.46, Hgb 17.4 H, Hct 50.7, MCV 92.9, MCH 31.9, MCHC 34.3, RDW 12.4, RDW Differential 41.7, Plt Count 285, MPV 9.7, Immature Gran % (Auto) 0.900, Neut % (Auto) 70.0, Lymph % (Auto) 24.3, [place] % (Auto) 3.6, Eos % (Auto) 0.9, Baso % (Auto) 0.3, Absolute Neuts (auto) 7.0, Absolute Lymphs (auto) 2.42, Total Counted Not Reportable 06/18/18 17:07: Sodium 135 L, Potassium 3.4 L, Chloride 98, Carbon Dioxide 11.0 L, Anion Gap 26 H, BUN 21 H, Creatinine 1.21, Estim Creat Clear Calc 84.42, Est GFR (MDRD) Af Amer 99, Est GFR (MDRD) Non-Af 82, BUN/Creatinine Ratio 17.4, Glucose 588 H*, Calcium 9.3 06/18/18 19:10: POC Glucose 286 H 06/18/18 20:05: POC Glucose 180 H 06/18/18 20:20: Sodium 143, Potassium 3.4 L, Chloride 109 H, Carbon Dioxide 18.0 L, Anion Gap 16 H, BUN 16, Creatinine 1.07, Estim Creat Clear Calc 94.71, Est GFR (MDRD) Af Amer 114, Est GFR (MDRD) Non-Af 94, BUN/Creatinine Ratio 15.0, Glucose 176 H, Calcium 8.4 L 06/18/18 20:27: POC Glucose 168 H 06/18/18 21:27: POC Glucose 156 H 06/18/18 22:30: POC Glucose 103 06/18/18 23:35: POC Glucose 111 H 06/19/18 00:35: Sodium 141, Potassium 3.3 L, Chloride 109 H, Carbon Dioxide 21.0, Anion Gap 11, BUN 13, Creatinine 0.73, Estim Creat Clear Calc 138.82, Est GFR (MDRD) Af Amer 176, Est GFR (MDRD) Non-Af 146, BUN/Creatinine Ratio 17.7, Glucose 151 H, Calcium 7.9 L 12/04/18 00:38: POC Glucose 162 H 06/19/18 01:32: POC Glucose 103 06/19/18 02:35: POC Glucose 118 H 06/19/18 03:26: POC Glucose 124 H 06/19/18 04:25: WBC 7.1, RBC 4.57 L, Hgb 14.4, Hct 41.1, MCV 89.9, MCH 31.5, MCHC 35.0, RDW 11.9, RDW Differential 38.5, Plt Count 226, MPV 9.0, Immature G ran % (Auto) 1.000 H, Neut % (Auto) 55.3, Lymph % (Auto) 32.3, [place] % (Auto) 9.4, Eos % (Auto) 1.7, Baso % (Auto) 0.3, Absolute Neuts (auto) 3.9, Absolute Lymphs (auto) 2.29, Total Counted Not Reportable 06/19/18 04:25: Sodium 143, Potassium 3.4 L, Chloride 108 H, Carbon Dioxide 22.0, Anion Gap 13, BUN 11, Creatinine 0.79, Estim Creat Clear Calc 128.28, Est GFR (MDRD) Af Amer 162, Est GFR (MDRD) Non-Af 134, BUN/Creatinine Ratio 13.9, Glucose 125 H, Calcium 8.2 L 06/19/18 04:25: Sodium Cancelled, Potassium Cancelled, Chloride Cancelled, Carbon Dioxide Cancelled, Anion Gap Cancelled, BUN Cancelled, Creatinine Cancelled, Estim Creat Clear Calc Cancelled, Est GFR (MDRD) Af Amer Cancelled, Est GFR (MDRD) Non-Af Cancelled, BUN/Creatinine Ratio Cancelled, Glucose Cancelled, Calcium Cancelled 06/19/18 04:25: Magnesium 1.7 06/19/18 04:25: Phosphorus 2.8 06/19/18 04:26: POC Glucose 113 H 06/19/18 05:53: POC Glucose 150 H 06/19/18 06:24: POC Glucose 178 H Current Medications Dextrose (D50w Syringe) 0 gm IV X1 PRN; Protocol PRN Reason: HYPOGLYCEMIA Heparin Sodium (Porcine) (Heparin Na) 5,000 unit SC Q12 TING Last Admin: 06/18/18 21:29 Dose: 5,000 unit Potassium Chloride/Dextrose/Sod Cl (Kcl 20meq In D5.45ns 1000ml) 1,000 mls @ 125 mls/hr IV .Q8H TING Last Admin: 06/19/18 05:02 Dose: 125 mls/hr Sodium Chloride () 250 mls @ 15 mls/hr IV .[id number] PRN PRN Reason: SALINE FLUSH Insulin Glargine (Lantus (Bkc)) 30 units SC BID TING Last Admin: 06/19/18 06:26 Dose: 30 units Insulin Human Lispro (Humalog Kwikpen (Bkc)) 0 unit SC ACHS TING; Protocol Magnesium Hydroxide (Milk Of Magnesia) 30 ml PO DAILY PRN PRN PRN Reason: Constipation Sodium Chloride () 5 - 15 ml IV UD PRN PRN Reason: SALINE FLUSH Medical Necessity - Tobacco Use Smoking Status: Never smoker Assessment/Plan All Active Problems (Last Reviewed 03/20/18 @ 15:05 by Amanda Wilkinson) DKA, type 1 (Acute) DKA (diabetic ketoacidoses) (Acute) The patient is a 17 y/o M w/ PMHx: Diabetes mellitus type I w/ serial admissions for DKA, Prior Noted Elevated Liver Enzymes of unclear etiology, Anxiety and Depression w/ prior suicidal ideation admissions following w/ Crisis Center who presents to the [facility] ED on 06/18/18 with complaint of elevated blood sugars despite insulin regimen noted to have been recently seen in the ED a couple days prior to this secondary to elevated blood sugars with recent diagnosis of sinus infection with poor oral intake. (1) DKA w/ Diabetes mellitus type I: Patient with prolonged history of poor compliance however does note recent sinus infection treatment. Patient admitted to the ICU following initiation of insulin drip in the ED, serial BMPs followed with eventual anion gap closure this morning x2. Patient transitioned off insulin drip to subcu insulin with initiation of ADA diet, insulin sliding scale. Magnesium and phosphorus levels normal. Will continue w/ IVF changes pending BS and BMP. Discontinue serial BMPs w/ transition to q AM. Encouraged diet and insulin regimen compliance, nutrition consulted. HgbA1c pending. Will transfer from ICU to CT status. 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 (2) Acute kidney injury: Secondary to acute presentation, #1 DKA. Admission BUN/Cr BUN/creatinine 21/1.21, prior baseline creatinine noted to be 0.7. Patient hydrated aggressively, repeat 06/19/18 BUN/Cr 11/0.79, resolved. (3) Hx Elevated Liver Enzymes: 07/18/17 liver US obtained during DKA admission with elevated enzymes at that time with noted elongated appearance of the right hepatic lobe suggestive of a Isaias's lobe, enlarged liver, mild fatty infiltration. Recent 04/2018 admission w/ admission AST/ALT 88/196. No hepatic profile obtained, will obtain this AM. (4) Anxiety and Depression: Following w/ Crisis center, prior admissions for suicidal ideations. Not on regimen despite his history, recommend continued evaluation per his therapist. (6) Recent Acute Sinusitis: Restarted augmentin, added flonase. (7) GERD: Famotidine. (8) DVT Prophylaxis: SCDs, heparin.
[2018-06-19 07:28] LABS: AST(SGOT) 37 U/L (15-37); Alanine Aminotransfer ALT/SGPT 44 U/L (16-61); Albumin, Serum 2.8 g/dL (3.2-5.0); Alkaline Phosphatase 110 U/L (45-117); Bilirubin, Direct 0.11 mg/dL (0.00-0.30); Globulin 3.1 g/dL (2.2-4.2); Protein, Total 5.9 g/dL (6.4-8.2)
[2018-06-19 08:01] LABS: Bedside Glucose 122 mg/dL (70-110)
[2018-06-19] MEDS: Insulin Lispro 100 UNIT/ML INSULN.PEN SC ×3 (08:49→12:24)
--- NOTE | 2018-06-19 09:11 | PCM.DC ---
- Discharge Diagnoses Current Active Problems: (1) DKA w/ Diabetes mellitus type I (2) Acute kidney injury, Secondary to acute presentation, #1 DKA (3) Hx Elevated Liver Enzymes (4) Anxiety and Depression, not on regimen (6) Recent Acute Sinusitis (7) GERD You will use the following diet at home:: Calorie/Carbohydrate Controlled (specify 1200, 1400, etc) - [id number] ADA diet encouraged. Your food should be the consistency of: Regular Your liquids should be the consistency of: Regular/Thin Discharge Activity: Return to Normal Activity May resume sexual activity in: No Restrictions Weight Bearing Status: Weight bearing as tolerated Call your doctor if you observe: Fever of 101 or Higher, Inability to urinate, Inability to have a bowel movement, Shortness of breath, Dizziness, Fainting spells, Chest pain, Uncontrolled pain, - - Unresolving facial pressure or worsened post-nasal drip. Instructions: Using Injected Insulin, Types of Insulin, Healthy Meals for Diabetes, Diabetes: Understanding Carbohydrates, Diabetes and Your Child: Preventing Diabetic Ketoacidosis (DKA), Diabetes and Your Child: Sick Day Plan, Understanding Your Sinuses, Causes of Sinusitis, Acute Sinusitis, Self-Care for Sinusitis Additional Instructions: Please complete the augmentin script you recently started outpatient. Please concurrently start flonase and continue x 10 days. Additionally, may consider nettipot usage to assist w/ improvement. Allergies/Adverse Reactions: Allergies No Known Allergies Allergy (Verified 06/16/18 15:20) Medications to take at Discharge Insulin Glargine,Hum.rec.anlog [Basaglar Kwikpen U-100] 30 unit SQ BIDAC #1 insuln.pen 05/12/18 Insulin Lispro [Humalog KwikPen] 5 unit SC TIDAC #1 insuln.pen 05/12/18 Amox/Clavulanate Tablet [Augmentin Tablet] 875 mg PO BID tablet 06/19/18 Fluticasone 0.05% [Flonase Nasal [place]] 1 spray NASAL BID #1 bottle 06/19/18 The following prescriptions were given: Fluticasone 0.05% [Flonase Nasal [place]] 1 spray NASAL BID #1 bottle Primary Care Physician: Scott Gomez MD [Primary Care Provider] - Please follow up with your Primary Care Physician in: Follow-up within 3-5 days to review admission. Test Results: Test results from this visit will be discussed in further detail at your follow-up appointment, if applicable. 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 Proposed Discharge Date: 06/19/18
--- NOTE | 2018-06-19 09:15 | CASEMGMT ---
SW spoke with patient as he has been in numerous times for same diagnosis. Patient said his living situation is still the same. He lives with his grandma, sister, and niece. He said things are going well. SW asked him how he is doing with Anxiety and Depression. He said he has not had any issues with Anxiety or Depression. Briana MARTÍNEZ MSW
[2018-06-19] MEDS: BENZOCAINE/MENTHOL 1 LOZENGE 2 LOZENGE MUCOUS MEM (09:32)
[2018-06-19] MEDS: Fluticasone 0.05% 1 SPRAY NASAL.SRY NASAL (09:32)
[2018-06-19] MEDS: Heparin Injection (Vial) 5,000 UNIT/ML VIAL 5000 UNIT SC (09:33)
[2018-06-19] MEDS: Amox/Clavulanate 875 MG Tablet PO (09:33)
[2018-06-19] MEDS: Famotidine 20 MG Tablet PO (09:34)
--- NOTE | 2018-06-19 09:50 | DS.PCM_ITS ---
Discharge Date and Diagnosis Date of Admission: 06/18/18 Date of Discharge: 06/19/18 - Primary Discharge Diagnosis (1) DKA w/ Diabetes mellitus type I (2) Acute kidney injury, Secondary to acute presentation, #1 DKA (3) Hx Elevated Liver Enzymes (4) Anxiety and Depression, not on regimen (6) Recent Acute Sinusitis (7) GERD - Secondary Discharge Diagnosis Chronic Problems (Last Reviewed 03/20/18 @ 15:05 by Amanda Wilkinson) Anxiety and depression (Chronic) GERD (gastroesophageal reflux disease) (Chronic) Fatty liver (Chronic) Suicidal ideations (Chronic) DM I (diabetes mellitus, type I), uncontrolled (Chronic) Hospital Course and Treatment Operations: None Procedures: EKG Summary of Care Provided: The patient is a 17 y/o M w/ PMHx: Diabetes mellitus type I w/ serial admissions for DKA, Prior Noted Elevated Liver Enzymes of unclear etiology, Anxiety and Depression w/ prior suicidal ideation admissions following w/ Crisis Center who presented to the [facility] ED on 06/18/18 with complaint of elevated blood sugars despite insulin regimen noted to have been recently seen in the ED a couple days prior to this secondary to elevated blood sugars with recent diagnosis of sinus infection with poor oral intake. Patient with prolonged history of poor compliance however does note recent sinus infection treatment. Patient admitted to the ICU following initiation of insulin drip in the ED, serial BMPs followed with eventual anion gap closure this morning x2. Patient transitioned off insulin drip to subcu insulin with initiation of ADA diet, insulin sliding sc shaheed. Magnesium and phosphorus levels normal. Encouraged diet and insulin regimen compliance, nutrition consulted. HgbA1c ordered, pending at discharge. Transitioned from ICU to MS status. Admission BUN/Cr BUN/creatinine 21/1.21, prior baseline creatinine noted to be 0.7. Patient hydrated aggressively, repeat 06/19/18 BUN/Cr 11/0.79, resolved. Ongoing facial discomfort w/ palpation, restarted augmentin, encouraged continuation to completion and added flonase with continuation upon discharge. Requested he contact his Emergency Department Physician in [place] and update to ascertain also if earlier appointment requested (has 1 month follow-up currently in place) in addition to follow-up with PCP within 3-5 days to review admission. - Physical Exam Vital Signs Temp Pulse Resp BP Pulse Ox 97.9 F 88 14 130/74 H 99 06/19/18 07:56 06/19/18 07:56 06/19/18 07:56 06/19/18 07:56 06/19/18 07:56 Oxygen Delivery Method Room Air Weight: 134 lb 4.184 oz Body Mass Index (BMI) 20.8 Finger Stick Blood Glucose 122 Intake and Output for Last 24 Hours 06/17/18 06/18/18 06/19/18 23:59 23:59 23:59 Intake Total 1152.6 / 1152.6 Output Total 425 / 425 Balance 727.6 / 727.6 Laboratory Tests Past 24 Hrs 06/18/18 06/18/18 06/18/18 17:07 17:07 20:20 WBC 10.0 RBC 5.46 Hgb 17.4 H Hct 50.7 MCV 92.9 MCH 31.9 MCHC 34.3 RDW 12.4 RDW Differential 41.7 Plt Count 285 MPV 9.7 Immature Gran % (Auto) 0.900 Neut % (Auto) 70.0 Lymph % (Auto) 24.3 [place] % (Auto) 3.6 Eos % (Auto) 0.9 Baso % (Auto) 0.3 Absolute Neuts (auto) 7.0 Absolute Lymphs (auto) 2.42 Total Counted Not Reportable Sodium 135 L 143 Potassium 3.4 L 3.4 L Chloride 98 109 H Carbon Dioxide 11.0 L 18.0 L Anion Gap 26 H 16 H BUN 21 H 16 Creatinine 1.21 1.07 Estim Creat Clear Calc 84.42 94.71 Est GFR (MDRD) Af Amer 99 114 Est GFR (MDRD) Non-Af 82 94 BUN/Creatinine Ratio 17.4 15.0 Glucose 588 H* 176 H Hemoglobin A1c Calcium 9.3 8.4 L Phosphorus Magnesium Total Bilirubin Direct Bilirubin AST ALT Alkaline Phosphatase Total Protein Albumin Globulin 06/19/18 06/19/18 06/19/18 00:35 04:25 04:25 WBC 7.1 RBC 4.57 L Hgb 14.4 Hct 41.1 MCV 89.9 MCH 31.5 MCHC 35.0 RDW 11.9 RDW Differential 38.5 Plt Count 226 MPV 9.0 Immature Gran % (Auto) 1.000 H Neut % (Auto) 55.3 Lymph % (Auto) 32.3 [place] % (Auto) 9.4 Eos % (Auto) 1.7 Baso % (Auto) 0.3 Absolute Neuts (auto) 3.9 Absolute Lymphs (auto) 2.29 Total Counted Not Reportable Sodium 141 143 Potassium 3.3 L 3.4 L Chloride 109 H 108 H Carbon Dioxide 21.0 22.0 Anion Gap 11 13 BUN 13 11 Creatinine 0.73 0.79 Estim Creat Clear Calc 138.82 128.28 Est GFR (MDRD) Af Amer 176 162 Est GFR (MDRD) Non-Af 146 134 BUN/Creatinine Ratio 17.7 13.9 Glucose 151 H 125 H Hemoglobin A1c Calcium 7.9 L 8.2 L Phosphorus Magnesium Total Bilirubin Direct Bilirubin AST ALT Alkaline Phosphatase Total Protein Albumin Globulin 06/19/18 06/19/18 06/19/18 04:25 04:25 04:25 WBC RBC Hgb Hct MCV MCH MCHC RDW RDW Differential Plt Count MPV Immature Gran % (Auto) Neut % (Auto) Lymph % (Auto) [place] % (Auto) Eos % (Auto) Baso % (Auto) Absolute Neuts (auto) Absolute Lymphs (auto) Total Counted Sodium Cancelled Potassium Cancelled Chloride Cancelled Carbon Dioxide Cancelled Anion Gap Cancelled BUN Cancelled Creatinine Cancelled Estim Creat Clear Calc Cancelled Est GFR (MDRD) Af Amer Cancelled Est GFR (MDRD) Non-Af Cancelled BUN/Creatinine Ratio Cancelled Glucose Cancelled Hemoglobin A1c Calcium Cancelled Phosphorus 2.8 Magnesium 1.7 Total Bilirubin Direct Bilirubin AST ALT Alkaline Phosphatase Total Protein Albumin Globulin 06/19/18 06/19/18 04:25 04:25 WBC RBC Hgb Hct MCV MCH MCHC RDW RDW Differential Plt Count MPV Immature Gran % (Auto) Neut % (Auto) Lymph % (Auto) [place] % (Auto) Eos % (Auto) Baso % (Auto) Absolute Neuts (auto) Absolute Lymphs (auto) Total Counted Sodium Potassium Chloride Carbon Dioxide Anion Gap BUN Creatinine Estim Creat Clear Calc Est GFR (MDRD) Af Amer Est GFR (MDRD) Non-Af BUN/Creatinine Ratio Glucose Hemoglobin A1c Pending Calcium Phosphorus Magnesium Total Bilirubin 0.50 Direct Bilirubin 0.11 AST 37 ALT 44 Alkaline Phosphatase 110 Total Protein 5.9 L Albumin 2.8 L Globulin 3.1 POC Glucose 06/19/18 06/19/18 06/19/18 07:49 06:24 05:53 POC Glucose 122 H 178 H 150 H 06/19/18 06/19/18 06/19/18 04:26 03:26 02:35 POC Glucose 113 H 124 H 118 H 06/19/18 06/19/18 06/18/18 01:32 00:38 23:35 POC Glucose 103 162 H 111 H 06/18/18 06/18/18 06/18/18 22:30 21:27 20:27 POC Glucose 103 156 H 168 H 06/18/18 06/18/18 06/18/18 20:05 19:10 16:53 POC Glucose 180 H 286 H > 500 H* Discharge Activity: Return to Normal Activity May resume sexual activity in: No Restrictions Weight Bearing Status: Weight bearing as tolerated Call your doctor if you observe: Fever of 101 or Higher, Inability to urinate, Inability to have a bowel movement, Shortness of breath, Dizziness, Fainting spells, Chest pain, Uncontrolled pain, - - Unresolving facial pressure or worsened post-nasal drip. Home Medications: Medications to take at Discharge Insulin Glargine,Hum.rec.anlog [Basaglar Kwikpen U-100] 30 unit SQ BIDAC #1 insuln.pen 05/12/18 Insulin Lispro [Humalog KwikPen] 5 unit SC TIDAC #1 insuln.pen 05/12/18 Amox/Clavulanate Tablet [Augmentin Tablet] 875 mg PO BID tablet 06/19/18 Fluticasone 0.05% [Flonase Nasal [place]] 1 spray NASAL BID #1 bottle 06/19/18 Following Prescrptions Were Given to Patient: Fluticasone 0.05% [Flonase Nasal [place]] 1 spray NASAL BID #1 bottle Primary Care Physician: Scott Gomez MD [Primary Care Provider] - Please follow up with your Primary Care Physician in: Follow-up within 3-5 days to review admission. Please Follow Up With: Emergency Department Physician When: Contact office today to update re: admission, arrange earlier appointment. Patient Instructions: Using Injected Insulin, Types of Insulin, Healthy Meals for Diabetes, Diabetes: Understanding Carbohydrates, Understanding Your Sinuses, Causes of Sinusitis, Acute Sinusitis, Self-Care for Sinusitis, Diabetes and Your Child: Preventing Diabetic Ketoacidosis (DKA), Diabetes and Your Child: Sick Day Plan Disposition: Home Minutes spent on discharge:: 20 Patient Condition:: Fair Medical Necessity - Tobacco Use Smoking Status: Never smoker Meaningful Use Info Meaningful Use Diagnoses (Choose all that apply): None applicable Code Visit OBSV E&M: 75738 Observation care discharge
[2018-06-19 10:03] LABS: Hemoglobin A1c 12.3 % (4.2-6.3)
[2018-06-19 12:30] LABS: Bedside Glucose 288 mg/dL (70-110)
== END 2018-06-19 14:10 | disposition home or self-care (01) ==
LOC: ED 19:18 → ICU 19:47
PROVIDERS: Admitting Provider Student in an Organized Health Care Education/Training Program; Emergency Provider Emergency Medicine; Family Provider Pediatrics; PCP Pediatrics; Visit Provider Family Medicine
DX: E10.10 Type 1 diabetes mellitus with ketoacidosis without coma (principal); Z79.4 Long term (current) use of insulin; N17.9 Acute kidney failure, unspecified; K21.9 Gastro-esophageal reflux disease without esophagitis; K76.0 Fatty (change of) liver, not elsewhere classified; E87.1 Hypo-osmolality and hyponatremia; E87.6 Hypokalemia; F41.9 Anxiety disorder, unspecified; F32.9 Major depressive disorder, single episode, unspecified
CPT/HCPCS: 36415; 80048; 80076; 82962; 83036; 83735; 84100; 85025; 96361; 96365; 96366; 96372; 97802; 99218; 99282; J7030; G0378

== ENCOUNTER 2018-08-20 18:19 | Observation (INO) | payer MEDICAID, SELFPAY ==
[2018-06-18 20:35] VITALS: BMI 20.8
[2018-08-20] VITALS (10 sets, daily range): BP systolic 114–127; BP diastolic 60–82; PULSE 81–131; RESP 15–28; TEMP 36.2–36.6; O2SAT 99–100; BMI 20.9
[2018-08-20 18:32] LABS: Bedside Glucose 396 mg/dL (70-110)
[2018-08-20] MEDS: 0.9% Normal Saline 1,000 ML 999 ML IV ×2 (18:49)
[2018-08-20 18:51] LABS: Absolute Lymphocyte Count 2.35 X10^3/ul (0.83-4.51); Absolute Neutrophil Count 5.8 X10^3/uL (2.0-7.7); Basophil# 0.02 X10^3/uL; Basophil% 0.2 % (0-1); Eosinophil# 0.02 X10^3/uL; Eosinophils% 0.2 % (0-5); Hematocrit 51.8 % (40-54); Hemoglobin 17.3 g/dl (13.0-16.5); Lymphocyte # 2.35 X10^3/ul (4.0); Lymphocyte % 27.4 % (19-41); Mean Corp Hgb Conc 33.4 g/gl (32-36); Mean Corpuscular Hgb 31.2 pg (27.0-32.0); Mean Corpuscular Volume 93.5 fL (80-94); Mean Platelet Vol. 9.7 fl (6.2-12.0); Monocyte# 0.24 X10^3/uL; Monocyte% 2.8 % (0-10); Neutrophil # 5.83 X10^3/uL (2.7-7.7); Platelet Count 286 K/mm3 (150-450); RBC Distribution Width CV 13.7 % (11.6-14.6); RBC Distribution Width SD 47.1 fl (35.1-43.9); Red Blood Count 5.54 M/mm3 (4.6-6.2); White Blood Count 8.6 K/mm3 (4.4-11.0)
[2018-08-20 18:52] LABS: POSITIVE COUNT NO; POSITIVE DIFFERENTIAL NO; POSITIVE MORPHOLOGY NO
[2018-08-20 19:03] LABS: Anion Gap 23 (5-15); BUN 15 mg/dL (7-18); BUN/Creat Ratio 10.6 RATIO (10-20); Calcium,Total 9.2 mg/dL (8.5-10.1); Chloride 100 mmol/L (98-107); Creatinine, Serum 1.41 mg/dL (0.70-1.30); EST Glomerular Filtration Rate 68 mL/min (>60); Est Glom Filt Rate - Afr Amer 83 mL/min (>60); Estimated Creatinine Clearance 71.39 ml/min; Glucose 374 mg/dL (74-106); Potassium 4.2 mmol/L (3.5-5.1); Sodium Level 136 mmol/L (136-145)
[2018-08-20 20:02] LABS: Blood Gas Specimen Type VEN; O2 Delivery Device Room Air; Time Given 1953; VBG BASE EXCESS -15 mmol/L (-1.0-3.5); VBG Bicarbonate 12 mmol/L (22-26); VBG Oxygen Content 13 mmol/L (23-33); VBG PO2 39 mmHg (25-40); VBG SO2 66 % (50-70); VBG pCO2 26.9 mmHg (41-51); VBG pH 7.26 (7.32-7.42)
[2018-08-20 20:16] LABS: Bedside Glucose 257 mg/dL (70-110)
--- NOTE | 2018-08-20 20:24 | HP.PCM_ITS ---
Problem List (1) Anxiety and depression Status: Chronic (2) GERD (gastroesophageal reflux disease) Status: Chronic Qualifiers: (3) Fatty liver Status: Chronic (4) DM I (diabetes mellitus, type I), uncontrolled Status: Chronic (5) DKA (diabetic ketoacidoses) Status: Acute Qualifiers: History of Present Illness Date of Admission: 08/20/18 Chief Complaint: elevated blood sugar The patient is a 17 year old male patient with a significant past medical history of Diabetes type 1 who is non compliant with medication by his medical record presents to the ER with elevated sugar. He felt lightheaded and sickly after waking up today from a knap. He also has a history of depression with suicidal ideation. He states he takes 30 units Basaglar BID and covers his carbohydrates with a sliding scale of Humalog. Initial anion gap is 23, blood sugar is 374 and serum is positive for ketones. He denies fevers or chills or other complaints. He will be admitted to ICU for management of DKA. Past Medical History Past Medical History (Chronic Problems): Chronic Problems (Last Reviewed 03/20/18 @ 15:05 by Amanda Wilkinson) Anxiety and depression (Chronic) GERD (gastroesophageal reflux disease) (Chronic) Fatty liver (Chronic) Suicidal ideations (Chronic) DM I (diabetes mellitus, type I), uncontrolled (Chronic) Medical History: Medical History (Last Reviewed 03/20/18 @ 15:05 by Amanda Wilkinson) Anxiety disorder F41.9 Back problem M53.9 Bone fracture T14.8XXA Diabetes type 1, uncontrolled E10.65 Dx : age 2 Last exacerbation : DKA : 01/31 Hypoglycemic episode : never ER visit : 01/31 Hearing problem H91.90 Liver disease K76.9 Seizure R56.9 Vision problem H54.7 Allergies No Known Allergies Allergy (Verified 08/20/18 18:25) Home Medications: Ambulatory Orders Medication Instructions Recorded Insulin Glargine,Hum.rec.anlog 30 unit SQ BIDAC #1 insuln.pen 05/12/18 [Basaglar Kwikpen U-100] Insulin Lispro [Humalog KwikPen] 5 unit SC TIDAC #1 insuln.pen 05/12/18 Surgical History: Surgical History (Last Reviewed 03/20/18 @ 15:05 by Amanda Wilkinson) S/p bilateral myringotomy with tube placement Z96.22 Surgical History: - - BL ear tubes. Psychiatric History: Anxiety, Depression, Prior suicide attempt Smoking Status: Never smoker - *Family History Maternal Family History: Family History (Last Reviewed 03/20/18 @ 15:05 by Amanda Wilkinson) Mother Kidney disease History Items: Heart Disease, Renal Disease Paternal Family History: Family History (Last Reviewed 03/20/18 @ 15:05 by Amanda Wilkinson) Mother Kidney disease History Items: Heart Disease, - - Paternal family males w/ frequent hearing disorder. Review of Systems Constitutional: Reports: Malaise, Weakness, Fatigue. Denies: Chills, Fever, Weight Change HEENT: Denies: Head Aches, Sinus Congestion, Sinus Drainage Cardiovascular: Denies: Chest Pain, Palpitations Respiratory: Denies: Cough, Shortness of breath at rest, Sputum production Gastrointestinal: Denies: Abdominal Pain, Nausea, Vomiting Genitourinary: Denies: Dysuria Musculoskeletal: Denies: Joint Pain, Joint Tenderness Skin: Denies: Rash, Wounds Neurological: Denies: Numbness, Tingling, Focal weakness Psychiatric: Denies: Anxiety, Depression, Homicidal Ideations, Suicidal Ideations Hematologic/ Lymphatic: Denies: Easy Bruising, Easy Bleeding VTE Information - Inpt Only VTE Present on Admission: No VTE Mechan Device Prophylaxis: None VTE Pharm Prophylaxis ordered?: Yes - Physical Exam General: Alert, Oriented x3, Cooperative HEENT: Atraumatic, Normocephalic Neck: Supple Lungs: Clear to auscultation, Normal air movement Cardiovascular: Regular rate, Regular Rhythm, Normal S1, Normal S2, No murmurs Abdomen: Bowel Sounds Present, Soft, Non Tender Extremities: No edema Skin: No rashes Musculoskeletal: No Tenderness to Palpation of Joints or Extremities Neurological: Neuro grossly intact Psych/Mental Status: Normal Affect, Appropriate Vital Signs Temp Pulse Resp BP Pulse Ox 97.1 F L 92 28 H 117/71 100 08/20/18 18:20 08/20/18 19:57 08/20/18 19:57 08/20/18 19:57 08/20/18 19:57 Oxygen Delivery Method Room Air Weight: 132 lb 0.91 oz Body Mass Index (BMI) 20.0 Finger Stick Blood Glucose 257 Laboratory Tests Past 24 Hrs 08/20/18 08/20/18 08/20/18 18:35 18:35 18:35 WBC 8.6 RBC 5.54 Hgb 17.3 H Hct 51.8 MCV 93.5 MCH 31.2 MCHC 33.4 RDW 13.7 RDW Differential 47.1 H Plt Count 286 MPV 9.7 Immature Gran % (Auto) 1.400 H Neut % (Auto) 68.0 Lymph % (Auto) 27.4 [place] % (Auto) 2.8 Eos % (Auto) 0.2 Baso % (Auto) 0.2 Absolute Neuts (auto) 5.8 Absolute Lymphs (auto) 2.35 Total Counted Not Reportable Specimen Type VBG pH VBG pO2 VBG O2 Sat (Calc) VBG O2 Content VBG Base Excess POC Mix VBG pCO2 Pt Tmp O2 Delivery Device Blood Gas Notified Whom Blood Gas Notified Time Sodium 136 Potassium 4.2 Chloride 100 Carbon Dioxide 13.0 L Anion Gap 23 H BUN 15 Creatinine 1.41 H Estim Creat Clear Calc 71.39 Est GFR (MDRD) Af Amer 83 Est GFR (MDRD) Non-Af 68 BUN/Creatinine Ratio 10.6 Glucose 374 H Calcium 9.2 Phosphorus Magnesium Acetone Level MODERATE H 08/20/18 08/20/18 18:35 19:57 WBC RBC Hgb Hct MCV MCH MCHC RDW RDW Differential Plt Count MPV Immature Gran % (Auto) Neut % (Auto) Lymph % (Auto) [place] % (Auto) Eos % (Auto) Baso % (Auto) Absolute Neuts (auto) Absolute Lymphs (auto) Total Counted Specimen Type CORRIE VBG pH 7.26 L VBG pO2 39 VBG O2 Sat (Calc) 66 VBG O2 Content 13 L VBG Base Excess -15 L POC Mix VBG pCO2 Pt Tmp 26.9 L O2 Delivery Device Room Air Blood Gas Notified Whom ED Blood Gas Notified Time 1952 Sodium Potassium Chloride Carbon Dioxide Anion Gap BUN Creatinine Estim Creat Clear Calc Est GFR (MDRD) Af Amer Est GFR (MDRD) Non-Af BUN/Creatinine Ratio Glucose Calcium Phosphorus Pending Magnesium Pending Acetone Level POC Glucose 08/20/18 08/20/18 20:12 18:24 POC Glucose 257 H 396 H Assessment/Plan All Active Problems (Last Reviewed 03/20/18 @ 15:05 by Amanda Wilkinson) DKA, type 1 (Acute) DKA (diabetic ketoacidoses) (Acute) Chronic Problems (Last Reviewed 03/20/18 @ 15:05 by Amanda Wilkinson) Anxiety and depression (Chronic) GERD (gastroesophageal reflux disease) (Chronic) Fatty liver (Chronic) Suicidal ideations (Chronic) DM I (diabetes mellitus, type I), uncontrolled (Chronic) Plan 1. DKA-- admit to ICU. Insulin drip protocol for DKA management. Plan overlap in am when he is hydrated. Encourage compliance and evaluate barriers to non compliance- Does he have adequate medication at home? 2. GERD -- continue home medication 3. DVT prophylaxis-- LMWH Code Visit Inpatient E&M: 44621 Init Hosp L3
[2018-08-20 20:31] LABS: Magnesium 2.2 mg/dL (1.6-2.6); Phosphorus 4.8 mg/dL (2.5-4.9)
--- NOTE | 2018-08-20 20:50 | NURSING ---
pt arrived to CVICU 202 in bed via ED ROMANA Jason.
[2018-08-20 21:16] LABS: Bedside Glucose 180 mg/dL (70-110)
[2018-08-20] MEDS: Dext 5%-0.45% NS 1,000 ML 150 ML IV (21:32)
[2018-08-20 21:53] LABS: Anion Gap 12 (5-15); BUN 13 mg/dL (7-18); BUN/Creat Ratio 12.9 RATIO (10-20); Calcium,Total 7.7 mg/dL (8.5-10.1); Chloride 112 mmol/L (98-107); Creatinine, Serum 1.01 mg/dL (0.70-1.30); EST Glomerular Filtration Rate 101 mL/min (>60); Est Glom Filt Rate - Afr Amer 122 mL/min (>60); Estimated Creatinine Clearance 103.83 ml/min; Glucose 173 mg/dL (74-106); Hemoglobin A1c 13.8 % (4.2-6.3); Potassium 3.6 mmol/L (3.5-5.1); Sodium Level 141 mmol/L (136-145)
[2018-08-20 22:01] LABS: Bedside Glucose 166 mg/dL (70-110)
[2018-08-20 23:02] LABS: Bedside Glucose 188 mg/dL (70-110)
--- NOTE | 2018-08-20 23:48 | CPS ---
VBG results given to . HCO3- value was 11.9. Physician aware.
[2018-08-20 23:56] LABS: Bedside Glucose 183 mg/dL (70-110)
[2018-08-21] VITALS (10 sets, daily range): BP systolic 100–119; BP diastolic 47–74; PULSE 62–92; RESP 10–23; TEMP 36.4–36.8; O2SAT 98–100
[2018-08-21 01:01] LABS: Bedside Glucose 157 mg/dL (70-110)
--- NOTE | 2018-08-21 01:06 | ED.VISSUMM ---
- ER Visit Summary Date of Service: 08/21/18 Chief Complaint: Dehydrated History of Present Illness: The patient is a [address] Gomez. He has a history of insulin-dependent diabetes mellitus with noncompliance. Reports that he began feeling dehydrated yesterday. Reports it is much worse today. States that he last checked his blood sugar at 3 PM and it was 201. States when he stands he feels lightheaded. He has not passed out. He has had nausea without vomiting. He denies any fever. No abdominal pain. No cough. No dysuria or frequency. No headache. Physical Examination: Vitals: Stable. Afebrile. General: Well-nourished and well-developed. Head: Normocephalic atraumatic. Neck: Supple, no lymphadenopathy. No JVD. Nontender. Cardiovascular: Regular rate and rhythm. No murmurs. Respiratory: No respiratory distress. Clear to auscultation bilaterally. Abdominal: Soft, nontender, nondistended, normal bowel sounds. No guarding, rebound, or peritoneal signs. Back: Nontender. Extremities: Nontender, no edema. Skin: Normal color, no rash. Neurologic: Alert and oriented ?3. Cranial nerves II through XII are intact. Normal strength and sensation. Psych: Normal affect. Test Results: Bicarb is 13 with an anion gap of 23, glucose 374, creatinine 1.41. PH is 7.26 on a VBG. CBC is marked for hemoglobin 17.3. Emergency Department Course and Treatment: Patient was given 2 L normal saline. He was started on an insulin drip. Treatment Plan: Patient was discussed with Dr. Camejo. He will be admitted to the hospital for further weeks and treatment. Disposition: Admitted in improved, but serious condition. Impression: 1. DKA. 2. Critical care time 30 minutes. This note was generated with [employer] dictation software. It may contain incorrect words, spelling, and punctuation that were not noted in review of the chart prior to signing ED Disposition - Plan for ED Patient: Disposition: Acute Care [facility]
[2018-08-21 01:24] LABS: Anion Gap 9 (5-15); BUN 10 mg/dL (7-18); BUN/Creat Ratio 11.5 RATIO (10-20); Calcium,Total 7.7 mg/dL (8.5-10.1); Chloride 112 mmol/L (98-107); Creatinine, Serum 0.87 mg/dL (0.70-1.30); EST Glomerular Filtration Rate 119 mL/min (>60); Est Glom Filt Rate - Afr Amer 144 mL/min (>60); Estimated Creatinine Clearance 120.54 ml/min; Glucose 162 mg/dL (74-106); Potassium 3.1 mmol/L (3.5-5.1); Sodium Level 141 mmol/L (136-145)
[2018-08-21 02:01] LABS: Bedside Glucose 134 mg/dL (70-110)
[2018-08-21 03:07] LABS: Bedside Glucose 104 mg/dL (70-110)
[2018-08-21 04:01] LABS: Bedside Glucose 116 mg/dL (70-110)
[2018-08-21 05:12] LABS: Bedside Glucose 118 mg/dL (70-110)
[2018-08-21 05:15] LABS: Absolute Lymphocyte Count 3.22 X10^3/ul (0.83-4.51); Absolute Neutrophil Count 2.3 X10^3/uL (2.0-7.7); Basophil# 0.03 X10^3/uL; Basophil% 0.5 % (0-1); Eosinophil# 0.24 X10^3/uL; Eosinophils% 3.8 % (0-5); Hematocrit 39.2 % (40-54); Hemoglobin 13.3 g/dl (13.0-16.5); Lymphocyte # 3.22 X10^3/ul (4.0); Lymphocyte % 50.5 % (19-41); Mean Corp Hgb Conc 33.9 g/gl (32-36); Mean Corpuscular Volume 91.4 fL (80-94); Mean Platelet Vol. 9.2 fl (6.2-12.0); Monocyte# 0.53 X10^3/uL; Monocyte% 8.3 % (0-10); Platelet Count 223 K/mm3 (150-450); RBC Distribution Width CV 13.3 % (11.6-14.6); RBC Distribution Width SD 44.1 fl (35.1-43.9); Red Blood Count 4.29 M/mm3 (4.6-6.2); White Blood Count 6.4 K/mm3 (4.4-11.0)
[2018-08-21 05:24] LABS: POSITIVE COUNT NO; POSITIVE DIFFERENTIAL NO; POSITIVE MORPHOLOGY NO
[2018-08-21 05:29] LABS: Anion Gap 12 (5-15); BUN 9 mg/dL (7-18); BUN/Creat Ratio 11.6 RATIO (10-20); Calcium,Total 7.7 mg/dL (8.5-10.1); Chloride 111 mmol/L (98-107); Creatinine, Serum 0.78 mg/dL (0.70-1.30); EST Glomerular Filtration Rate 136 mL/min (>60); Est Glom Filt Rate - Afr Amer 164 mL/min (>60); Estimated Creatinine Clearance 134.44 ml/min; Glucose 111 mg/dL (74-106); Sodium Level 144 mmol/L (136-145)
[2018-08-21 06:11] LABS: Bedside Glucose 124 mg/dL (70-110)
[2018-08-21 06:11] LABS: Red Blood Cells-Urine 0 SEEN /hpf (0-5); White Blood Cells 0 SEEN /hpf (0-5)
[2018-08-21 06:20] LABS: Color, Urine Yellow (Yellow); Glucose, Dipstick 1000 mg/dl (Normal); Leukocyte Esterase-Dipstick Negative /ul (Negative); Nitrite-Dipstick Negative (Negative); Occult Blood-Urine Negative /ul (Negative); Protein-Dipstick 30 mg/dl (Negative); Urine Bilirubin Dipstick Negative (Negative); Urine Clarity Sl. Cloudy (Clear); Urine Urobilinogen Normal (Normal)
[2018-08-21 06:21] LABS: Ketone-Dipstick 150 mg/dl (Negative)
[2018-08-21 06:22] LABS: Bacteria RARE /hpf (None Seen); Mucous, Urine RARE /hpf (<or=2+); Squamous Epithelial Cells - UA 0-5 SEEN /hpf (0-5)
[2018-08-21 07:01] LABS: Bedside Glucose 165 mg/dL (70-110)
[2018-08-21 09:22] LABS: Bedside Glucose 212 mg/dL (70-110)
[2018-08-21] MEDS: Insulin Lispro 100 UNIT/ML INSULN.PEN SC ×3 (09:28→11:54)
[2018-08-21] MEDS: Enoxaparin 40 MG/0.4 ML Syringe SC (10:10)
[2018-08-21 12:01] LABS: Bedside Glucose 250 mg/dL (70-110)
--- NOTE | 2018-08-21 12:09 | DCINST_ITS ---
You will use the following diet at home:: Calorie/Carbohydrate Controlled (specify 1200, 1400, etc) - 1800 luz. Your food should be the consistency of: Regular Discharge Activity: Return to Normal Activity Weight Bearing Status: Full weight bearing Call your doctor if you observe: Fever of 101 or Higher, Shortness of breath, Dizziness, Fainting spells, Chest pain, Increased palpitations (irregular heartbeat), Uncontrolled pain Additional Instructions: Please follow-up with your telecom specialist in 2 weeks if possible. Allergies/Adverse Reactions: Allergies No Known Allergies Allergy (Verified 08/20/18 18:25) Medications to take at Discharge Insulin Glargine,Hum.rec.anlog [Basaglar Kwikpen U-100] 30 unit SQ BIDAC #1 insuln.pen 05/12/18 Insulin Lispro [Humalog KwikPen] 5 unit SC TIDAC #1 insuln.pen 05/12/18 Insulin Lispro [Humalog KwikPen] See Protocol SQ ACHS 08/21/18 Primary Care Physician: Scott Gomez MD [Primary Care Provider] - Please follow up with your Primary Care Physician in: 1 week. Test Results: Test results from this visit will be discussed in further detail at your follow- up appointment, if applicable.
--- NOTE | 2018-08-21 14:25 | CASEMGMT ---
Social Work CVICU Received notice that patient may benefit from social work consult. Chart review begun and noted that discharge order in. Called up to the unit and found that patient already discharged. Therefore, patient left without psychosocial assessment completed. Per nursing staff, patient smiling, seeming happy and talking about an upcoming trip to [place], getting involved with [employer]. -DONG Walker, FLIGHT ATTENDANT
--- NOTE | 2018-08-21 14:32 | PCM.DC.SUM ---
Discharge Date and Diagnosis Date of Admission: 08/20/18 Date of Discharge: 08/21/18 - Primary Discharge Diagnosis #1 diabetic ketoacidosis. #2 acute kidney injury. #3 hypokalemia. - Secondary Discharge Diagnosis Chronic Problems (Last Reviewed 03/20/18 @ 15:05 by Amanda Wilkinson) Anxiety and depression (Chronic) GERD (gastroesophageal reflux disease) (Chronic) Fatty liver (Chronic) Suicidal ideations (Chronic) DM I (diabetes mellitus, type I), uncontrolled (Chronic) Hospital Course and Treatment Operations: None Procedures: None Summary of Care Provided: Patient seen and examined on the day of discharge and appeared to be stable to be discharged home. He denied any significant symptoms, reports that he is doing better. His vital signs are stable. The patient is a 17 year old M presented to the emergency room because of dehydration according to his own words and he was found to have acute diabetic ketoacidosis complicated by acute kidney injury and hypokalemia. This patient has history of type 1 diabetes mellitus with frequent admissions for DKA's although there has been more specific reason why he is getting those are conjugate. Patient states that he has been insulin regimen according to his television camera operator and has been very compliant with it. In the emergency department, his blood sugar was 374, carbon dioxide was 13 and anion gap was 23 consistent with diabetic ketoacidosis. His acetone level was moderate. Patient was admitted to the intensive care unit, started on DKA protocol with IV insulin drip and electrolyte replacement. His urinalysis revealed no evidence of acute cystitis. He has no symptoms. Of pneumonia. He denied cough or sputum production. With IV fluid therapy and IV insulin drip, blood sugar came down to around 100-200, anion gap closed and serum bicarb improved to 21. IV insulin drip turned off and patient was started on ADA diet as well as his home dose of insulin. He did very well. Upon admission, his creatinine was 1.4 indicating acute kidney injury which is attributed to acute DKA and with IV fluid therapy, creatinine came down to 0.78 today. His potassium was low as well and was replaced and corrected per protocol. Patient symptoms and condition improved unexpectedly within 24 hours. Patient discharged home in a stable medical condition, discharged on his regular home insulin regiment with glargine insulin twice daily, pre-meal Humalog 3 times daily as well as sliding scale, recommended from with PCP in 1 week and have recommended follow-up with his television camera operator in 2 weeks if possible. Patient states that he checks his blood sugar at least 3-6 times daily as instructed by his television camera operator. - Physical Exam General: Alert, Oriented x3, Cooperative, No apparent distress HEENT: Atraumatic, PERRLA, EOMI, Normocephalic Oral: Moist Mucosa, No Gingival or Mucosal Lesions/ Ulcerations Neck: Supple, No JVD, Negative Carotid Bruits, Trachea Midline, Thyroid Normal Size and Texture Lungs: Clear to auscultation, Normal air movement, No rhonchi, No wheeze, No rales Cardiovascular: Regular rate, Regular Rhythm, Normal S1, Normal S2, PMI Normal Abdomen: Bowel Sounds Present, Soft, Non Tender, Non-Distended, No Hepato-splenomegaly Extremities: No clubbing, No cyanosis, No edema Skin: No rashes, No breakdown Lymphatic: No Cervical, Supraclavicular, or Inguinal Adenopathy Neurological: Cranial nerves II-XII grossly intact, Motor Exam 5/5 strength throughout Psych/Mental Status: Normal Affect, Appropriate Vital Signs Temp Pulse Resp BP Pulse Ox 97.8 F 92 18 119/74 100 08/21/18 11:52 08/21/18 11:52 08/21/18 11:52 08/21/18 11:52 08/21/18 11:52 Oxygen Delivery Method Room Air Weight: 136 lb 3.931 oz Body Mass Index (BMI) 20.9 Finger Stick Blood Glucose 165 Intake and Output for Last 24 Hours 08/19/18 08/20/18 08/21/18 23:59 23:59 23:59 Intake Total 363.6 / 363.6 642.7 / 642.7 Balance 363.6 / 363.6 642.7 / 642.7 Laboratory Tests Past 24 Hrs 08/20/18 08/20/18 08/20/18 18:35 18:35 18:35 WBC 8.6 RBC 5.54 Hgb 17.3 H Hct 51.8 MCV 93.5 MCH 31.2 MCHC 33.4 RDW 13.7 RDW Differential 47.1 H Plt Count 286 MPV 9.7 Immature Gran % (Auto) 1.400 H Neut % (Auto) 68.0 Lymph % (Auto) 27.4 [place] % (Auto) 2.8 Eos % (Auto) 0.2 Baso % (Auto) 0.2 Absolute Neuts (auto) 5.8 Absolute Lymphs (auto) 2.35 Total Counted Not Reportable Specimen Type VBG pH VBG pO2 VBG O2 Sat (Calc) VBG O2 Content VBG Base Excess POC Mix VBG pCO2 Pt Tmp O2 Delivery Device Blood Gas Notified Whom Blood Gas Notified Time Sodium 136 Potassium 4.2 Chloride 100 Carbon Dioxide 13.0 L Anion Gap 23 H BUN 15 Creatinine 1.41 H Estim Creat Clear Calc 71.39 Est GFR (MDRD) Af Amer 83 Est GFR (MDRD) Non-Af 68 BUN/Creatinine Ratio 10.6 Glucose 374 H Hemoglobin A1c Calcium 9.2 Phosphorus Magnesium Urine Color Urine Clarity Urine pH Ur Specific [place] Urine Protein Urine Glucose (UA) Urine Ketones Urine Occult Blood Urine Nitrite Urine Bilirubin Urine Urobilinogen Ur Leukocyte Esterase Urine RBC Urine WBC Ur Squamous Epith Cells Urine Bacteria Urine Mucus Acetone Level MODERATE H 08/20/18 08/20/18 08/20/18 18:35 19:57 21:25 WBC RBC Hgb Hct MCV MCH MCHC RDW RDW Differential Plt Count MPV Immature Gran % (Auto) Neut % (Auto) Lymph % (Auto) [place] % (Auto) Eos % (Auto) Baso % (Auto) Absolute Neuts (auto) Absolute Lymphs (auto) Total Counted Specimen Type CORRIE VBG pH 7.26 L VBG pO2 39 VBG O2 Sat (Calc) 66 VBG O2 Content 13 L VBG Base Excess -15 L POC Mix VBG pCO2 Pt Tmp 26.9 L O2 Delivery Device Room Air Blood Gas Notified Whom ED Blood Gas Notified Time 1952 Sodium Potassium Chloride Carbon Dioxide Anion Gap BUN Creatinine Estim Creat Clear Calc Est GFR (MDRD) Af Amer Est GFR (MDRD) Non-Af BUN/Creatinine Ratio Glucose Hemoglobin A1c 13.8 H Calcium Phosphorus 4.8 Magnesium 2.2 Urine Color Urine Clarity Urine pH Ur Specific [place] Urine Protein Urine Glucose (UA) Urine Ketones Urine Occult Blood Urine Nitrite Urine Bilirubin Urine Urobilinogen Ur Leukocyte Esterase Urine RBC Urine WBC Ur Squamous Epith Cells Urine Bacteria Urine Mucus Acetone Level 08/20/18 08/21/18 08/21/18 21:25 00:55 05:05 WBC RBC Hgb Hct MCV MCH MCHC RDW RDW Differential Plt Count MPV Immature Gran % (Auto) Neut % (Auto) Lymph % (Auto) [place] % (Auto) Eos % (Auto) Baso % (Auto) Absolute Neuts (auto) Absolute Lymphs (auto) Total Counted Specimen Type VBG pH VBG pO2 VBG O2 Sat (Calc) VBG O2 Content VBG Base Excess POC Mix VBG pCO2 Pt Tmp O2 Delivery Device Blood Gas Notified Whom Blood Gas Notified Time Sodium 141 141 144 Potassium 3.6 3.1 L 3.0 L Chloride 112 H 112 H 111 H Carbon Dioxide 17.0 L 20.0 L 21.0 Anion Gap 12 9 12 BUN 13 10 9 Creatinine 1.01 0.87 0.78 Estim Creat Clear Calc 103.83 120.54 134.44 Est GFR (MDRD) Af Amer 122 144 164 Est GFR (MDRD) Non-Af 101 119 136 BUN/Creatinine Ratio 12.9 11.5 11.6 Glucose 173 H 162 H 111 H Hemoglobin A1c Calcium 7.7 L 7.7 L 7.7 L Phosphorus Magnesium Urine Color Urine Clarity Urine pH Ur Specific [place] Urine Protein Urine Glucose (UA) Urine Ketones Urine Occult Blood Urine Nitrite Urine Bilirubin Urine Urobilinogen Ur Leukocyte Esterase Urine RBC Urine WBC Ur Squamous Epith Cells Urine Bacteria Urine Mucus Acetone Level 08/21/18 08/21/18 05:05 06:00 WBC 6.4 RBC 4.29 L Hgb 13.3 Hct 39.2 L MCV 91.4 MCH 31.0 MCHC 33.9 RDW 13.3 RDW Differential 44.1 H Plt Count 223 MPV 9.2 Immature Gran % (Auto) 0.900 Neut % (Auto) 36.0 L Lymph % (Auto) 50.5 H [place] % (Auto) 8.3 Eos % (Auto) 3.8 Baso % (Auto) 0.5 Absolute Neuts (auto) 2.3 Absolute Lymphs (auto) 3.22 Total Counted Not Reportable Specimen Type VBG pH VBG pO2 VBG O2 Sat (Calc) VBG O2 Content VBG Base Excess POC Mix VBG pCO2 Pt Tmp O2 Delivery Device Blood Gas Notified Whom Blood Gas Notified Time Sodium Potassium Chloride Carbon Dioxide Anion Gap BUN Creatinine Estim Creat Clear Calc Est GFR (MDRD) Af Amer Est GFR (MDRD) Non-Af BUN/Creatinine Ratio Glucose Hemoglobin A1c Calcium Phosphorus Magnesium Urine Color Yellow Urine Clarity Sl. Cloudy Urine pH 6.0 Ur Specific [place] 1.020 Urine Protein 30 H Urine Glucose (UA) 1000 H Urine Ketones 150 H Urine Occult Blood Negative Urine Nitrite Negative Urine Bilirubin Negative Urine Urobilinogen Normal Ur Leukocyte Esterase Negative Urine RBC 0 SEEN Urine WBC 0 SEEN Ur Squamous Epith Cells 0-5 SEEN Urine Bacteria RARE Urine Mucus RARE Acetone Level POC Glucose 08/21/18 08/21/18 08/21/18 11:49 09:12 06:58 POC Glucose 250 H 212 H 165 H 08/21/18 08/21/18 08/21/18 06:02 05:00 03:55 POC Glucose 124 H 118 H 116 H 08/21/18 08/21/18 08/21/18 02:59 01:55 00:51 POC Glucose 104 134 H 157 H 08/20/18 08/20/18 08/20/18 23:51 22:55 21:53 POC Glucose 183 H 188 H 166 H 08/20/18 08/20/18 08/20/18 20:56 20:12 18:24 POC Glucose 180 H 257 H 396 H Discharge Activity: Return to Normal Activity Weight Bearing Status: Full weight bearing Call your doctor if you observe: Fever of 101 or Higher, Shortness of breath, Dizziness, Fainting spells, Chest pain, Increased palpitations (irregular heartbeat), Uncontrolled pain Home Medications: Medications to take at Discharge Insulin Glargine,Hum.rec.anlog [Basaglar Kwikpen U-100] 30 unit SQ BIDAC #1 insuln.pen 05/12/18 Insulin Lispro [Humalog KwikPen] 5 unit SC TIDAC #1 insuln.pen 05/12/18 Insulin Lispro [Humalog KwikPen] See Protocol SQ ACHS 08/21/18 Primary Care Physician: Scott Gomez MD [Primary Care Provider] - Please follow up with your Primary Care Physician in: 1 week. Disposition: Home Minutes spent on discharge:: 26 Patient Condition:: Stable Medical Necessity - Tobacco Use Smoking Status: Never smoker Meaningful Use Info Meaningful Use Diagnoses (Choose all that apply): None applicable Code Visit OBSV E&M: 05049 Observation care discharge
== END 2018-08-21 12:45 | disposition home or self-care (01) ==
LOC: ED 20:01 → ICU 20:40
PROVIDERS: Admitting Provider Family Medicine; Emergency Provider Emergency Medicine; Family Provider Pediatrics; PCP Pediatrics; Visit Provider Hospitalist
DX: E10.10 Type 1 diabetes mellitus with ketoacidosis without coma (principal); N17.9 Acute kidney failure, unspecified; E87.6 Hypokalemia; K21.9 Gastro-esophageal reflux disease without esophagitis; Z79.4 Long term (current) use of insulin; E10.65 Type 1 diabetes mellitus with hyperglycemia; E86.0 Dehydration; K76.0 Fatty (change of) liver, not elsewhere classified; Z91.14 Patient's other noncompliance with medication regimen
CPT/HCPCS: 80048; 81001; 82009; 82803; 82962; 83036; 83735; 84100; 85025; 96361; 96365; 96366; 96372; 97802; 99218; 99283; J7030; A4216; G0378; J7799

== ENCOUNTER 2018-10-25 11:53 | Inpatient (IN) | payer MEDICAID, SELFPAY ==
[2018-08-20 21:02] VITALS: BMI 20.9
[2018-10-25] VITALS (14 sets, daily range): BP systolic 100–130; BP diastolic 50–95; PULSE 69–113; RESP 14–26; TEMP 36.3–36.6; O2SAT 96–100; BMI 19.7; BMI 19.6
[2018-10-25 12:11] LABS: Bedside Glucose 347 mg/dL (70-110)
[2018-10-25] MEDS: 0.9% Normal Saline 1,000 ML 1000 ML IV (12:26)
[2018-10-25] MEDS: Ondansetron 4 MG/2 ML Vial IV (12:26)
[2018-10-25 12:28] LABS: Absolute Lymphocyte Count 1.71 X10^3/ul (0.83-4.51); Absolute Neutrophil Count 4.4 X10^3/uL (2.0-7.7); Basophil# 0.02 X10^3/uL; Basophil% 0.3 % (0-1); Eosinophils% 2.9 % (0-5); Hematocrit 51.1 % (40-54); Lymphocyte # 1.71 X10^3/ul (4.0); Lymphocyte % 24.9 % (19-41); Mean Corp Hgb Conc 35.4 g/gl (32-36); Mean Corpuscular Hgb 31.3 pg (27.0-32.0); Mean Corpuscular Volume 88.3 fL (80-94); Mean Platelet Vol. 9.3 fl (6.2-12.0); Monocyte# 0.48 X10^3/uL; Neutrophil # 4.42 X10^3/uL (2.7-7.7); Neutrophil % 64.2 % (47-70); Platelet Count 337 K/mm3 (150-450); RBC Distribution Width CV 12.2 % (11.6-14.6); RBC Distribution Width SD 39.9 fl (35.1-43.9); Red Blood Count 5.79 M/mm3 (4.6-6.2); White Blood Count 6.9 K/mm3 (4.4-11.0)
[2018-10-25 12:32] LABS: Hemoglobin 18.1 g/dl (13.0-16.5); POSITIVE COUNT NO; POSITIVE DIFFERENTIAL NO; POSITIVE MORPHOLOGY NO
--- NOTE | 2018-10-25 12:32 | ED.RN ---
HEMOGLOBIN 18.1, DR RILEY
[2018-10-25 12:39] LABS: AST(SGOT) 150 U/L (15-37); Alanine Aminotransfer ALT/SGPT 244 U/L (16-61); Alkaline Phosphatase 186 U/L (45-117); Anion Gap 21 (5-15); BUN 19 mg/dL (7-18); BUN/Creat Ratio 14.3 RATIO (10-20); Calcium,Total 10.1 mg/dL (8.5-10.1); Chloride 101 mmol/L (98-107); Creatinine, Serum 1.33 mg/dL (0.70-1.30); EST Glomerular Filtration Rate 73 mL/min (>60); Est Glom Filt Rate - Afr Amer 88 mL/min (>60); Glucose 315 mg/dL (74-106); Potassium 3.9 mmol/L (3.5-5.1); Sodium Level 140 mmol/L (136-145)
--- NOTE | 2018-10-25 13:24 | ED.DCSUM_ITS ---
- ER Visit Summary Date of Service: 10/25/18 Chief Complaint: [Abdominal pain, vomiting, and diarrhea. History of Present Illness: The patient is a 17 M [presents to the emergency department with abdominal pain that he has had for over a year off and on. Main reason he was seen at urgent care today was for vomiting and diarrhea that started yesterday. Patient had low-grade temp at home up to 100.3 yesterday. Patient states that his blood sugar was elevated last night over 500 and he is a type I diabetic. Patient has had DKA frequently. Initially urgent care saw him and referred him to the emergency department as they were concerned that patient may be in DKA again.] Physical Examination: HEENT-PERRLA, EOMI. Cranial nerves II through XII grossly intact. TMs clear. Mucous membranes dry. No adenopathy. Cardiovascular-regular rate and rhythm without murmur or ectopy Lungs-clear to auscultation, chest wall stable without crepitus or subcu emphysema Abdomen-hyperactive bowel sounds. Patient has some mild diffuse tenderness. There is no rebound, rigidity, or perineal signs. Extremities-intact ?4, normal range of motion, normal pulses, atraumatic [] Test Results: [CBC with differential showed a white blood cell count of 6.9, hemoglobin 18, hematocrit 51, platelets 337. Chemistries show sodium 140, potassium 3.9, chloride 101, CO2 18, glucose 315, BUN 21, creatinine 1.3. LFTs were elevated with an alk phos of 186, ALT 244, AST 150. Patient has had prior elevations in LFTs. Urinalysis pending. Patient did have small acetone in the serum. Patient does have an elevated anion gap.] Emergency Department Course and Treatment: [Patient was given a liter normal same fluid bolus and was immediately started on an insulin drip. Case was discussed with hospitalist will evaluate patient for admission Treatment Plan: [Admit] Disposition: [Admit] Impression: [Diabetic ketoacidosis Viral gastroenteritis] This note was generated with [employer] dictation software. It may contain incorrect words, spelling, and punctuation that were not noted in review of the chart prior to signing ED Disposition - Plan for ED Patient: Referrals: Scott Gomez MD [Primary Care Provider] -
--- NOTE | 2018-10-25 13:24 | PCM.HP.STD ---
History of Present Illness Date of Admission: 10/25/18 Chief Complaint: Weakness and malaise. The patient is a 17 year old M with past medical history of type 1 diabetes mellitus with recurrent DKA the last one being about 3 months ago. He was admitted through the ED on 10/25/2018 with a general feeling of unwellness and malaise. Patient states his sister and his niece have been sick for the past few days as in his knees was actually admitted for 2 days for influenza A. He was around them and started feeling weak and lethargic. He felt really horrible yesterday and had severe nausea with assisted vomiting. He decided to go to an urgent care facility and was referred to the hospital ED on account of suspicion for DKA. He did admit to mild fever and chills but denied any cough or chest pain, palpitations or dizziness, diarrhea vomiting. He did admit to still having abdominal pain. Review of systems otherwise negative. On admission in the ED, vitals were significant for tachycardia with heart rate of 113. Blood glucose was 315 and bicarb was 18 with anion gap of 21. CBC showed no leukocytosis and hemoglobin was elevated at 18.1. Liver enzymes were also mildly elevated which is chronic. He has been admitted to be managed for DKA. [] Past Medical History Past Medical History (Chronic Problems): Chronic Problems (Last Reviewed 03/20/18 @ 15:05 by Amanda Wilkinson) Anxiety and depression (Chronic) GERD (gastroesophageal reflux disease) (Chronic) Fatty liver (Chronic) Suicidal ideations (Chronic) DM I (diabetes mellitus, type I), uncontrolled (Chronic) Medical History: Medical History (Last Reviewed 03/20/18 @ 15:05 by Amanda Wilkinson) Anxiety disorder F41.9 Back problem M53.9 Bone fracture T14.8XXA Diabetes type 1, uncontrolled E10.65 Dx : age 2 Last exacerbation : DKA : 01/31 Hypoglycemic episode : never ER visit : 01/31 Hearing problem H91.90 Liver disease K76.9 Seizure R56.9 Vision problem H54.7 Allergies No Known Allergies Allergy (Verified 10/25/18 11:56) Home Medications: Ambulatory Orders Medication Instructions Recorded Insulin Glargine,Hum.rec.anlog 30 unit SQ BIDAC #1 insuln.pen 05/12/18 [Basaglar Kwikpen U-100] Insulin Lispro [Humalog KwikPen] See Protocol SQ ACHS 08/21/18 Blood Sugar Diagnostic [FreeStyle 0 ( .ROUTE .MEDSUPPLY 10/25/18 Lite Strips] Surgical History: Surgical History (Last Reviewed 03/20/18 @ 15:05 by Amanda Wilkinson) S/p bilateral myringotomy with tube placement Z96.22 Surgical History: - - BL ear tubes. Psychiatric History: Anxiety, Depression, Prior suicide attempt Lives: With Family - with his grandmother Smoking Status: Never smoker Tobacco Use: Non-smoker Alcohol: None Drugs: None - *Family History Maternal Family History: Family History (Last Reviewed 03/20/18 @ 15:05 by Amanda Wilkinson) Mother Kidney disease History Items: Heart Disease, Renal Disease Paternal Family History: Family History (Last Reviewed 03/20/18 @ 15:05 by Amanda Wilkinson) Mother Kidney disease History Items: Heart Disease, - - Paternal family males w/ frequent hearing disorder. Review of Systems Constitutional: Reports: Anorexia, Chills, Fever, Malaise, Weakness, Fatigue Eyes: Denies: Blurred vision HEENT: Denies: Head Aches, Sinus Congestion, Sinus Drainage Cardiovascular: Denies: Chest Pain, Palpitations Respiratory: Denies: Cough, Shortness of Breath, Shortness of breath at rest, Shortness of breath upon exertion, Sputum production, Wheezing Gastrointestinal: Reports: Abdominal Pain, Nausea, Vomiting. Denies: Constipation, Diarrhea, Dyspepsia, Hematemesis, Hematochezia, Melena Genitourinary: Denies: Dysuria Musculoskeletal: Denies: Joint Pain, Joint Tenderness Skin: Denies: Rash, Wounds Neurological: Denies: Numbness, Tingling, Focal weakness Psychiatric: Denies: Anxiety, Depression, Homicidal Ideations, Suicidal Ideations Hematologic/ Lymphatic: Denies: Easy Bruising, Easy Bleeding VTE Information - Inpt Only VTE Present on Admission: No VTE Pharm Prophylaxis ordered?: Yes - Physical Exam General: Alert, Oriented x3, Cooperative, No apparent distress HEENT: Atraumatic, PERRLA, EOMI, Normocephalic Oral: Dry Mucosa Neck: Supple, No JVD, Negative Carotid Bruits Lungs: Clear to auscultation, Normal air movement, No rhonchi, No wheeze, No rales Cardiovascular: Regular rate, Regular Rhythm, Normal S1, Normal S2, No murmurs Abdomen: Bowel Sounds Present, Soft, Non-Distended, No Hepato-splenomegaly, - - mild generalised tenderness, with no guarding or rebound tenderness Extremities: No clubbing, No cyanosis, No edema, Capillary Refill Less than 3 Seconds Skin: No rashes, No breakdown Musculoskeletal: No Tenderness to Palpation of Joints or Extremities Lymphatic: No Cervical, Supraclavicular, or Inguinal Adenopathy Neurological: Cranial nerves II-XII grossly intact, Neuro grossly intact, Motor Exam 5/5 strength throughout Psych/Mental Status: Normal Affect, Appropriate, Alert and oriented to time, place, person, mood and affect Vital Signs Temp Pulse Resp BP Pulse Ox 97.3 F L 113 H 16 112/83 H 96 10/25/18 11:54 10/25/18 11:54 10/25/18 11:54 10/25/18 11:54 10/25/18 11:54 Oxygen Delivery Method Room Air Weight: 129 lb 10.109 oz Body Mass Index (BMI) 19.7 Finger Stick Blood Glucose 347 Laboratory Tests Past 24 Hrs 10/25/18 10/25/18 10/25/18 12:10 12:10 12:10 WBC 6.9 RBC 5.79 Hgb 18.1 H* Hct 51.1 MCV 88.3 MCH 31.3 MCHC 35.4 RDW 12.2 RDW Differential 39.9 Plt Count 337 MPV 9.3 Immature Gran % (Auto) 0.700 Neut % (Auto) 64.2 Lymph % (Auto) 24.9 [place] % (Auto) 7.0 Eos % (Auto) 2.9 Baso % (Auto) 0.3 Absolute Neuts (auto) 4.4 Absolute Lymphs (auto) 1.71 Total Counted Not Reportable Sodium 140 Potassium 3.9 Chloride 101 Carbon Dioxide 18.0 L Anion Gap 21 H BUN 19 H Creatinine 1.33 H Estim Creat Clear Calc 74.30 Est GFR (MDRD) Af Amer 88 Est GFR (MDRD) Non-Af 73 BUN/Creatinine Ratio 14.3 Glucose 315 H Calcium 10.1 Total Bilirubin 0.60 AST 150 H ALT 244 H Alkaline Phosphatase 186 H Total Protein 8.0 Albumin 4.0 Globulin 4.0 Albumin/Globulin Ratio 1.0 Acetone Level SMALL H POC Glucose 10/25/18 12:01 POC Glucose 347 H Assessment/Plan All Active Problems (Last Reviewed 03/20/18 @ 15:05 by Amanda Wilkinson) DKA, type 1 (Acute) DKA (diabetic ketoacidoses) (Acute) 17-year-old male with type 1 diabetes presenting with generalized feeling of malaise and found to be in DKA. 1. DKA, inciting cause is unclear claims adherence to his insulin regimen CBC showed no leucocytosis bicarb is 18, anion gap is 21 admit to ICU start insulin drip, and titrate per DKA protocol hydrate with IVF NS with 20meq of KCl ~ 250cc/hr check blood sugar q1 hourly; switch to D5 NS when blood sugar falls to <250 2. SAMUEL: cr is 1.33. likely due to dehydration. WIll hdyrate and monitor 3. Secondary polycythemia: hb is 18.1 This is likely due to hemoconcentration from dehydration and SAMUEL. Expect it will fall with hydration DVT prophylaxis: lovenox Code Visit Inpatient E&M: 02070 Init Hosp L3
--- NOTE | 2018-10-25 13:28 | HP.PCM_ITS ---
History of Present Illness Date of Admission: 10/25/18 Chief Complaint: Weakness and malaise. The patient is a 17 year old M with past medical history of type 1 diabetes mellitus with recurrent DKA the last one being about 3 months ago. He was admitted through the ED on 10/25/2018 with a general feeling of unwellness and malaise. Patient states his sister and his niece have been sick for the past few days as in his knees was actually admitted for 2 days for influenza A. He was around them and started feeling weak and lethargic. He felt really horrible yesterday and had severe nausea with assisted vomiting. He decided to go to an urgent care facility and was referred to the hospital ED on account of suspicion for DKA. He did admit to mild fever and chills but denied any cough or chest pain, palpitations or dizziness, diarrhea vomiting. He did admit to still having abdominal pain. Review of systems otherwise negative. On admission in the ED, vitals were significant for tachycardia with heart rate of 113. Blood glucose was 315 and bicarb was 18 with anion gap of 21. CBC showed no leukocy tosis and hemoglobin was elevated at 18.1. Liver enzymes were also mildly elevated which is chronic. He has been admitted to be managed for DKA. [] Past Medical History Past Medical History (Chronic Problems): Chronic Problems (Last Reviewed 03/20/18 @ 15:05 by Amanda Wilkinson) Anxiety and depression (Chronic) GERD (gastroesophageal reflux disease) (Chronic) Fatty liver (Chronic) Suicidal ideations (Chronic) DM I (diabetes mellitus, type I), uncontrolled (Chronic) Medical History: Medical History (Last Reviewed 03/20/18 @ 15:05 by Amanda Wilkinson) Anxiety disorder F41.9 Back problem M53.9 Bone fracture T14.8XXA Diabetes type 1, uncontrolled E10.65 Dx : age 2 Last exacerbation : DKA : 01/31 Hypoglycemic episode : never ER visit : 01/31 Hearing problem H91.90 Liver disease K76.9 Seizure R56.9 Vision problem H54.7 Allergies No Known Allergies Allergy (Verified 10/25/18 11:56) Home Medications: Ambulatory Orders Medication Instructions Recorded Insulin Glargine,Hum.rec.anlog 30 unit SQ BIDAC #1 insuln.pen 05/12/18 [Basaglar Kwikpen U-100] Insulin Lispro [Humalog KwikPen] See Protocol SQ ACHS 08/21/18 Blood Sugar Diagnostic [FreeStyle 0 ( .ROUTE .MEDSUPPLY 10/25/18 Lite Strips] Surgical History: Surgical History (Last Reviewed 03/20/18 @ 15:05 by Amanda Wilkinson) S/p bilateral myringotomy with tube placement Z96.22 Surgical History: - - BL ear tubes. Psychiatric History: Anxiety, Depression, Prior suicide attempt Lives: With Family - with his grandmother Smoking Status: Never smoker Tobacco Use: Non-smoker Alcohol: None Drugs: None - *Family History Maternal Family History: Family History (Last Reviewed 03/20/18 @ 15:05 by Amanda Wilkinson) Mother Kidney disease History Items: Heart Disease, Renal Disease Paternal Family History: Family History (Last Reviewed 03/20/18 @ 15:05 by Amanda Wilkinson) Mother Kidney disease History Items: Heart Disease, - - Paternal family males w/ frequent hearing disorder. Review of Systems Constitutional: Reports: Anorexia, Chills, Fever, Malaise, Weakness, Fatigue Eyes: Denies: Blurred vision HEENT: Denies: Head Aches, Sinus Congestion, Sinus Drainage Cardiovascular: Denies: Chest Pain, Palpitations Respiratory: Denies: Cough, Shortness of Breath, Shortness of breath at rest, Shortness of breath upon exertion, Sputum production, Wheezing Gastrointestinal: Reports: Abdominal Pain, Nausea, Vomiting. Denies: Constipation, Diarrhea, Dyspepsia, Hematemesis, Hematochezia, Melena Genitourinary: Denies: Dysuria Musculoskeletal: Denies: Joint Pain, Joint Tenderness Skin: Denies: Rash, Wounds Neurological: Denies: Numbness, Tingling, Focal weakness Psychiatric: Denies: Anxiety, Depression, Homicidal Ideations, Suicidal Ideations Hematologic/ Lymphatic: Denies: Easy Bruising, Easy Bleeding VTE Information - Inpt Only VTE Present on Admission: No VTE Pharm Prophylaxis ordered?: Yes - Physical Exam General: Alert, Oriented x3, Cooperative, No apparent distress HEENT: Atraumatic, PERRLA, EOMI, Normocephalic Oral: Dry Mucosa Neck: Supple, No JVD, Negative Carotid Bruits Lungs: Clear to auscultation, Normal air movement, No rhonchi, No wheeze, No rales Cardiovascular: Regular rate, Regular Rhythm, Normal S1, Normal S2, No murmurs Abdomen: Bowel Sounds Present, Soft, Non-Distended, No Hepato-splenomegaly, - - mild generalised tenderness, with no guarding or rebound tenderness Extremities: No clubbing, No cyanosis, No edema, Capillary Refill Less than 3 Seconds Skin: No rashes, No breakdown Musculoskeletal: No Tenderness to Palpation of Joints or Extremities Lymphatic: No Cervical, Supraclavicular, or Inguinal Adenopathy Neurological: Cranial nerves II-XII grossly intact, Neuro grossly intact, Motor Exam 5/5 strength throughout Psych/Mental Status: Normal Affect, Appropriate, Alert and oriented to time, place, person, mood and affect Vital Signs Temp Pulse Resp BP Pulse Ox 97.3 F L 113 H 16 112/83 H 96 10/25/18 11:54 10/25/18 11:54 10/25/18 11:54 10/25/18 11:54 10/25/18 11:54 Oxygen Delivery Method Room Air Weight: 129 lb 10.109 oz Body Mass Index (BMI) 19.7 Finger Stick Blood Glucose 347 Laboratory Tests Past 24 Hrs 10/25/18 10/25/18 10/25/18 12:10 12:10 12:10 WBC 6.9 RBC 5.79 Hgb 18.1 H* Hct 51.1 MCV 88.3 MCH 31.3 MCHC 35.4 RDW 12.2 RDW Differential 39.9 Plt Count 337 MPV 9.3 Immature Gran % (Auto) 0.700 Neut % (Auto) 64.2 Lymph % (Auto) 24.9 [place] % (Auto) 7.0 Eos % (Auto) 2.9 Baso % (Auto) 0.3 Absolute Neuts (auto) 4.4 Absolute Lymphs (auto) 1.71 Total Counted Not Reportable Sodium 140 Potassium 3.9 Chloride 101 Carbon Dioxide 18.0 L Anion Gap 21 H BUN 19 H Creatinine 1.33 H Estim Creat Clear Calc 74.30 Est GFR (MDRD) Af Amer 88 Est GFR (MDRD) Non-Af 73 BUN/Creatinine Ratio 14.3 Glucose 315 H Calcium 10.1 Total Bilirubin 0.60 AST 150 H ALT 244 H Alkaline Phosphatase 186 H Total Protein 8.0 Albumin 4.0 Globulin 4.0 Albumin/Globulin Ratio 1.0 Acetone Level SMALL H POC Glucose 04/11/19 12:01 POC Glucose 347 H Assessment/Plan All Active Problems (Last Reviewed 03/20/18 @ 15:05 by Amanda Wilkinson) DKA, type 1 (Acute) DKA (diabetic ketoacidoses) (Acute) 17-year-old male with type 1 diabetes presenting with generalized feeling of malaise and found to be in DKA. 1. DKA, inciting cause is unclear * claims adherence to his insulin regimen * CBC showed no leucocytosis * bicarb is 18, anion gap is 21 * admit to ICU * start insulin drip, and titrate per DKA protocol * hydrate with IVF NS with 20meq of KCl ~ 250cc/hr * check blood sugar q1 hourly; switch to D5 NS when blood sugar falls to <250 * 2. SAMUEL: cr is 1.33. likely due to dehydration. WIll hdyrate and monitor 3. Secondary polycythemia: hb is 18.1 This is likely due to hemoconcentration from dehydration and SAMUEL. Expect it will fall with hydration DVT prophylaxis: lovenox Code Visit Inpatient E&M: 97668 Init Hosp L3
--- NOTE | 2018-10-25 13:32 | ED.RN ---
pt states he is unable to urinate, declines going to bathroom to attempt despite frequent encouragement.
[2018-10-25 13:35] LABS: Bedside Glucose 188 mg/dL (70-110)
--- NOTE | 2018-10-25 13:38 | CASEMGMT ---
RN CM Assessment Introduced role of RN CM to patient.? Patient is alert, oriented and able?to participate in RN CM Assessment. ?Care providers, pharmacy, and demographics verified. Presentation: Per MD Note: general feeling of unwellness and malaise, past medical history of type 1 diabetes mellitus with recurrent DKA the last one being about 3 months ago Admit Dx: DKA Re-Admit: No, Patient has multiple past Obs Admit for DKA 08/20-08/21/18, 06/18-06/19/19, ER 06/16/18 for Hyperglycemia Barriers/Issues: Patient states that he is in the process of getting the arm glucometer but needs 90 days of readings first, identified barrier of him remembering to check his blood sugar when working or out. had an insulin pump in the past but his dad did not want him on it, does not get along with his dad. wants to try the pens that he is currently on first before thinking about pump again. has had and understands the education for Diabetic Diet, states he drinks diet pop and does not consume a lot of sugar but will have periods when he is with his friends and eats what he wants not watching carb intake but other times does good. 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 PCP: Scott Gomez Specialists: Endo- Cannot remember name, is located in [place]. GI- Cannot remember name, located in [place]. Preferred [facility]acy: [facility] Insurance: [facility] Rx Benefit: ?Yes ?LNOK: Grandmother Berna Wang Living Arrangements:? Lives with his grandmother in a 2 story house, 3 steps to enter. ADL?s: Independent with ambulation and ADL's Transportation: Grandmother drives and will drive on DC DME: Glucometer HHC: None SNF: None Goal: Home DC PLAN: Home with no anticipated needs identified at this time. CAMDEN Villalobos
[2018-10-25] MEDS: Dext 5%-0.45% NS 1,000 ML 150 ML IV (14:08)
[2018-10-25 15:01] LABS: Bedside Glucose 165 mg/dL (70-110)
[2018-10-25 15:12] LABS: Anion Gap 8 (5-15); BUN 15 mg/dL (7-18); Calcium,Total 8.9 mg/dL (8.5-10.1); Chloride 104 mmol/L (98-107); Creatinine, Serum 0.94 mg/dL (0.70-1.30); EST Glomerular Filtration Rate 109 mL/min (>60); Est Glom Filt Rate - Afr Amer 132 mL/min (>60); Estimated Creatinine Clearance 105.12 ml/min; Glucose 176 mg/dL (74-106); Potassium 3.7 mmol/L (3.5-5.1); Sodium Level 138 mmol/L (136-145)
--- NOTE | 2018-10-25 15:54 | NURSING ---
LAC IV where insulin noted to be infusing was locked at loop. BGT increased at time of check. Insulin drip titrated accordingly, will monitor.
[2018-10-25] MEDS: 0.9% NaCl Peripheral Flush Adult/Peds IV (15:58)
[2018-10-25 16:01] LABS: Bedside Glucose 243 mg/dL (70-110)
[2018-10-25 17:16] LABS: Bedside Glucose 209 mg/dL (70-110)
[2018-10-25 18:11] LABS: Bedside Glucose 167 mg/dL (70-110)
[2018-10-25 19:24] LABS: Anion Gap 7 (5-15); BUN 14 mg/dL (7-18); BUN/Creat Ratio 15.7 RATIO (10-20); Calcium,Total 8.5 mg/dL (8.5-10.1); Chloride 105 mmol/L (98-107); Creatinine, Serum 0.89 mg/dL (0.70-1.30); EST Glomerular Filtration Rate 116 mL/min (>60); Est Glom Filt Rate - Afr Amer 140 mL/min (>60); Estimated Creatinine Clearance 111.03 ml/min; Glucose 130 mg/dL (74-106); Sodium Level 140 mmol/L (136-145)
[2018-10-25 20:01] LABS: Bedside Glucose 101 mg/dL (70-110)
[2018-10-25 21:11] LABS: Bedside Glucose 89 mg/dL (70-110)
[2018-10-25] MEDS: Insulin Lispro 100 UNIT/ML INSULN.PEN SC (22:26)
[2018-10-25 22:31] LABS: Bedside Glucose 275 mg/dL (70-110)
[2018-10-25 22:47] LABS: Anion Gap 9 (5-15); BUN 12 mg/dL (7-18); Calcium,Total 8.4 mg/dL (8.5-10.1); Chloride 103 mmol/L (98-107); EST Glomerular Filtration Rate 131 mL/min (>60); Est Glom Filt Rate - Afr Amer 159 mL/min (>60); Estimated Creatinine Clearance 123.52 ml/min; Glucose 231 mg/dL (74-106); Potassium 3.4 mmol/L (3.5-5.1); Sodium Level 139 mmol/L (136-145)
[2018-10-26] VITALS (13 sets, daily range): BP systolic 100–138; BP diastolic 57–96; PULSE 60–91; RESP 16–29; TEMP 36.1–37; O2SAT 97–100
[2018-10-26 01:25] LABS: Bedside Glucose 240 mg/dL (70-110)
[2018-10-26 05:48] LABS: Absolute Lymphocyte Count 3.09 X10^3/ul (0.83-4.51); Absolute Neutrophil Count 2.7 X10^3/uL (2.0-7.7); Basophil# 0.03 X10^3/uL; Basophil% 0.4 % (0-1); Eosinophil# 0.63 X10^3/uL; Hematocrit 43.2 % (40-54); Hemoglobin 14.7 g/dl (13.0-16.5); Lymphocyte # 3.09 X10^3/ul (4.0); Lymphocyte % 44.3 % (19-41); Mean Corpuscular Hgb 30.8 pg (27.0-32.0); Mean Corpuscular Volume 90.6 fL (80-94); Mean Platelet Vol. 9.4 fl (6.2-12.0); Monocyte# 0.45 X10^3/uL; Monocyte% 6.5 % (0-10); Neutrophil # 2.72 X10^3/uL (2.7-7.7); Neutrophil % 39.1 % (47-70); Platelet Count 254 K/mm3 (150-450); RBC Distribution Width CV 12.3 % (11.6-14.6); RBC Distribution Width SD 39.8 fl (35.1-43.9); Red Blood Count 4.77 M/mm3 (4.6-6.2)
[2018-10-26 05:56] LABS: POSITIVE COUNT NO; POSITIVE DIFFERENTIAL NO; POSITIVE MORPHOLOGY NO
[2018-10-26 06:10] LABS: AST(SGOT) 212 U/L (15-37); Alanine Aminotransfer ALT/SGPT 182 U/L (16-61); Albumin, Serum 2.8 g/dL (3.2-5.0); Alkaline Phosphatase 107 U/L (45-117); Anion Gap 11 (5-15); BUN 11 mg/dL (7-18); BUN/Creat Ratio 12.1 RATIO (10-20); Bilirubin, Direct 0.08 mg/dL (0.00-0.30); Chloride 107 mmol/L (98-107); Creatinine, Serum 0.91 mg/dL (0.70-1.30); EST Glomerular Filtration Rate 113 mL/min (>60); Est Glom Filt Rate - Afr Amer 137 mL/min (>60); Estimated Creatinine Clearance 108.77 ml/min; Globulin 2.9 g/dL (2.2-4.2); Glucose 261 mg/dL (74-106); Magnesium 1.8 mg/dL (1.6-2.6); Phosphorus 3.9 mg/dL (2.5-4.9); Potassium 3.3 mmol/L (3.5-5.1); Protein, Total 5.7 g/dL (6.4-8.2); Sodium Level 142 mmol/L (136-145)
--- NOTE | 2018-10-26 06:50 | CON.PCM_ITS ---
Reason for Consult Date of Consultation: 10/26/18 Reason for Consultation: DKA History of Present Illness: The patient is a 17-year-old male, with a history as outlined below, who presented to the emergency department on October 25 with complaints of abdominal pain and vomiting. The patient has a known history of type 1 diabetes mellitus with poor outpatient compliance. He was last admitted to the hospital in August 2018 for diabetic ketoacidosis. The patient's hemoglobin A1c at that time was noted to be nearly 14. On presentation to the emergency department, the patient was noted to be afebrile, tachycardic and hemodynamically stable. He was maintaining appropriate oxygen saturations on room air. Laboratory evaluation revealed no evidence of a leukocytosis. Chemistry profile revealed a bicarbonate of 18, anion gap of 21 and elevated creatinine of 1.3. Glucose was increased to 315. Small serum acetone level was noted. The patient received supplemental IV fluids and was started on an insulin drip. He was subsequently admitted to the medical intensive care unit for ongoing management. Last evening, the patient's diabetic ketoacidosis resolved. He was subsequently started on scheduled Lantus and sliding scale insulin coverage. Anion gap remains closed. Potassium is again low this morning at 3.3. Past Medical History Past Medical History (Chronic Problems): Chronic Problems (Last Reviewed 03/20/18 @ 15:05 by Amanda Wilkinson) Anxiety and depression (Chronic) GERD (gastroesophageal reflux disease) (Chronic) Fatty liver (Chronic) Suicidal ideations (Chronic) DM I (diabetes mellitus, type I), uncontrolled (Chronic) Medical History: Medical History (Last Reviewed 03/20/18 @ 15:05 by Amanda Wilkinson) Anxiety disorder F41.9 Back problem M53.9 Bone fracture T14.8XXA Diabetes type 1, uncontrolled E10.65 Dx : age 2 Last exacerbation : DKA : 01/31 Hypoglycemic episode : never ER visit : 01/31 Hearing problem H91.90 Liver disease K76.9 Seizure R56.9 Vision problem H54.7 Allergies No Known Allergies Allergy (Verified 10/25/18 11:56) Home Medications: Ambulatory Orders Medication Instructions Recorded Insulin Glargine,Hum.rec.anlog 30 unit SQ BIDAC #1 insuln.pen 05/12/18 [Basaglar Kwikpen U-100] Insulin Lispro [Humalog KwikPen] See Protocol SQ ACHS 08/21/18 Surgical History: Surgical History (Last Reviewed 03/20/18 @ 15:05 by Amanda Wilkinson) S/p bilateral myringotomy with tube placement Z96.22 Surgical History: - - BL ear tubes. Psychiatric History: Anxiety, Depression, Prior suicide attempt Lives: With Family - with his grandmother Smoking Status: Never smoker Tobacco Use: Non-smoker Alcohol: None Drugs: None - *Family History Maternal Family History: Family History (Last Reviewed 03/20/18 @ 15:05 by Amanda Wilkinson) Mother Kidney disease History Items: Heart Disease, Renal Disease Paternal Family History: Family History (Last Reviewed 03/20/18 @ 15:05 by Amanda Wilkinson) Mother Kidney disease History Items: Heart Disease, - - Paternal family males w/ frequent hearing disorder. Review of Systems Constitutional: Reports: Weakness, Fatigue Eyes: Denies: Blurred vision, Double vision HEENT: Denies: Head Aches, Sinus Congestion, Sinus Drainage Cardiovascular: Denies: Chest Pain, Palpitations Respiratory: Denies: Cough, Shortness of breath at rest, Sputum production Gastrointestinal: Reports: Abdominal Pain, Nausea, Vomiting Genitourinary: Denies: Dysuria Musculoskeletal: Denies: Joint Pain, Joint Tenderness Skin: Denies: Rash, Wounds Neurological: Denies: Numbness, Tingling, Focal weakness Psychiatric: Denies: Anxiety, Depression, Homicidal Ideations, Suicidal Ideations Hematologic/ Lymphatic: Denies: Easy Bruising, Easy Bleeding Objective: The patient's most recent lab work, culture data and imaging studies have all been personally reviewed. - Physical Exam General: Alert, Cooperative, No apparent distress HEENT: Atraumatic, PERRLA, Normocephalic Oral: No Gingival or Mucosal Lesions/ Ulcerations Neck: Supple, No Nodes, Trachea Midline Lungs: Normal air movement, No rhonchi, No wheeze, No rales Cardiovascular: Regular rate, Regular Rhythm, Normal S1, Normal S2, No murmurs Abdomen: Bowel Sounds Present, Soft, Non Tender Extremities: No clubbing, No cyanosis, No edema Skin: No breakdown Musculoskeletal: No Tenderness to Palpation of Joints or Extremities Lymphatic: No Cervical, Supraclavicular, or Inguinal Adenopathy Neurological: Cranial nerves II-XII grossly intact, Neuro grossly intact Psych/Mental Status: Normal Affect, Appropriate Vital Signs Temp Pulse Resp BP Pulse Ox 36.5 C L 63 19 H 102/57 L 99 10/26/18 04:00 10/26/18 06:00 10/26/18 06:00 10/26/18 06:00 10/26/18 06:00 Oxygen Delivery Method Room Air Weight: 129 lb 13.636 oz Body Mass Index (BMI) 19.6 Finger Stick Blood Glucose 89 Intake and Output for Last 24 Hours 10/24/18 10/25/18 10/26/18 23:59 23:59 23:59 Intake Total 577 / 577 1287 / 1287 Balance 577 / 577 1287 / 1287 Laboratory Tests Past 24 Hrs 10/25/18 10/25/18 10/25/18 12:10 12:10 12:10 WBC 6.9 RBC 5.79 Hgb 18.1 H* Hct 51.1 MCV 88.3 MCH 31.3 MCHC 35.4 RDW 12.2 RDW Differential 39.9 Plt Count 337 MPV 9.3 Immature Gran % (Auto) 0.700 Neut % (Auto) 64.2 Lymph % (Auto) 24.9 [place] % (Auto) 7.0 Eos % (Auto) 2.9 Baso % (Auto) 0.3 Absolute Neuts (auto) 4.4 Absolute Lymphs (auto) 1.71 Total Counted Not Reportable Sodium 140 Potassium 3.9 Chloride 101 Carbon Dioxide 18.0 L Anion Gap 21 H BUN 19 H Creatinine 1.33 H Estim Creat Clear Calc 74.30 Est GFR (MDRD) Af Amer 88 Est GFR (MDRD) Non-Af 73 BUN/Creatinine Ratio 14.3 Glucose 315 H Calcium 10.1 Phosphorus Magnesium Total Bilirubin 0.60 Direct Bilirubin AST 150 H ALT 244 H Alkaline Phosphatase 186 H Total Protein 8.0 Albumin 4.0 Globulin 4.0 Albumin/Globulin Ratio 1.0 Acetone Level SMALL H 10/25/18 10/25/18 10/25/18 14:45 18:51 22:00 WBC RBC Hgb Hct MCV MCH MCHC RDW RDW Differential Plt Count MPV Immature Gran % (Auto) Neut % (Auto) Lymph % (Auto) [place] % (Auto) Eos % (Auto) Baso % (Auto) Absolute Neuts (auto) Absolute Lymphs (auto) Total Counted Sodium 138 140 139 Potassium 3.7 3.0 L 3.4 L Chloride 104 105 103 Carbon Dioxide 26.0 28.0 27.0 Anion Gap 8 7 9 BUN 15 14 12 Creatinine 0.94 0.89 0.80 Estim Creat Clear Calc 105.12 111.03 123.52 Est GFR (MDRD) Af Amer 132 140 159 Est GFR (MDRD) Non-Af 109 116 131 BUN/Creatinine Ratio 16.0 15.7 15.0 Glucose 176 H 130 H 231 H Calcium 8.9 8.5 8.4 L Phosphorus Magnesium Total Bilirubin Direct Bilirubin AST ALT Alkaline Phosphatase Total Protein Albumin Globulin Albumin/Globulin Ratio Acetone Level 10/26/18 10/26/18 05:30 05:30 WBC 7.0 RBC 4.77 Hgb 14.7 Hct 43.2 MCV 90.6 MCH 30.8 MCHC 34.0 RDW 12.3 RDW Differential 39.8 Plt Count 254 MPV 9.4 Immature Gran % (Auto) 0.700 Neut % (Auto) 39.1 L Lymph % (Auto) 44.3 H [place] % (Auto) 6.5 Eos % (Auto) 9.0 H Baso % (Auto) 0.4 Absolute Neuts (auto) 2.7 Absolute Lymphs (auto) 3.09 Total Counted Not Reportable Sodium 142 Potassium 3.3 L Chloride 107 Carbon Dioxide 24.0 Anion Gap 11 BUN 11 Creatinine 0.91 Estim Creat Clear Calc 108.77 Est GFR (MDRD) Af Amer 137 Est GFR (MDRD) Non-Af 113 BUN/Creatinine Ratio 12.1 Glucose 261 H Calcium 8.0 L Phosphorus 3.9 Magnesium 1.8 Total Bilirubin 0.20 Direct Bilirubin 0.08 AST 212 H ALT 182 H Alkaline Phosphatase 107 Total Protein 5.7 L Albumin 2.8 L Globulin 2.9 Albumin/Globulin Ratio Acetone Level POC Glucose 10/26/18 10/25/18 10/25/18 01:20 22:25 21:02 POC Glucose 240 H 275 H 89 10/25/18 10/25/18 10/25/18 19:58 18:07 17:10 POC Glucose 101 167 H 209 H 10/25/18 10/25/18 10/25/18 15:53 14:44 13:29 POC Glucose 243 H 165 H 188 H 10/25/18 12:01 POC Glucose 347 H Assessment/Plan RECOMMENDATIONS: 1. Continue basal and sliding scale insulin coverage as ordered. 2. Provide diabetic education. 3. Potassium repletion as ordered. 4. ICU prophylaxis IMPRESSIONS: 1. Diabetic ketoacidosis Suspect secondary to outpatient noncompliance. At this time, the patient has responded favorably to IV volume resuscitation and continuous insulin infusion. His anion gap has been closed now on several occasions. He has been transition to basal insulin and sliding scale coverage. This will be continued without change. Diabetic education to be provided. 2. Acute kidney injury Prerenal in etiology. The patient responded appropriately to IV volume resuscitation with subsequent resolution of his SAMUEL. There is no indication for renal replacement therapy. 3. Hypokalemia Electrolyte repletion as ordered. Recheck levels in the morning. 4. Transaminitis Likely secondary to known underlying fatty liver disease. This note was generated with [employer] dictation software. It may contain incorrect words, spelling, and punctuation that were not noted in checking the note before signing. DISPOSITION: The patient is medically stable for transfer out of the intensive care unit. Given the patient's lack of ongoing ICU needs, will sign off. Please call with any additional questions. Code Visit Inpatient E&M: [id number] Init Hosp L2
[2018-10-26 06:55] LABS: Bedside Glucose 217 mg/dL (70-110)
[2018-10-26 07:41] LABS: GGTP 100 U/L (15-85); Lipase 45 U/L (73-393)
[2018-10-26] MEDS: Insulin Lispro 100 UNIT/ML INSULN.PEN SC ×4 (07:55→22:07)
--- NOTE | 2018-10-26 08:31 | PCM.PN.HOSP ---
Subjective: Patient seen and examined. He was admitted with complaint of lethargy and malaise and was found to have DKA. Anion gap closed overnight with hydration. Patient seen and examined this morning. He has no complaints. Review of systems otherwise negative and he feels much better than yesterday. Potassium was high at 3.2 and is to be replaced. Labs and vitals reviewed. Vitals/I&O's: Vital Signs Temp Pulse Resp BP Pulse Ox 97 F L 87 29 H 104/63 98 10/26/18 08:00 10/26/18 08:00 10/26/18 08:00 10/26/18 08:00 10/26/18 08:00 Oxygen Delivery Method Room Air Weight: 129 lb 13.636 oz Body Mass Index (BMI) 19.6 Finger Stick Blood Glucose 89 Intake and Output for Last 24 Hours 10/24/18 10/25/18 10/26/18 23:59 23:59 23:59 Intake Total 577 / 577 1287 / 1287 Balance 577 / 577 1287 / 1287 General: Alert, Oriented x3, Cooperative, No apparent distress HEENT: Atraumatic, PERRLA, EOMI, Normocephalic Oral: Moist Mucosa Neck: Supple, No JVD, Negative Carotid Bruits Lungs: Clear to auscultation, Normal air movement, No rhonchi, No wheeze, No rales Cardiovascular: Regular rate, Regular Rhythm, Normal S1, Normal S2, No murmurs Abdomen: Bowel Sounds Present, Soft, Non Tender, Non-Distended, No Hepato-splenomegaly Extremities: No clubbing, No cyanosis, No edema, Capillary Refill Less than 3 Seconds Skin: No rashes, No breakdown Musculoskeletal: No Tenderness to Palpation of Joints or Extremities Lymphatic: No Cervical, Supraclavicular, or Inguinal Adenopathy Neurological: Cranial nerves II-XII grossly intact, Neuro grossly intact, Motor Exam 5/5 strength throughout Psych/Mental Status: Normal Affect, Appropriate, Alert and oriented to time, place, person, mood and affect Laboratory Results 10/25/18 12:01: POC Glucose 347 H 10/25/18 12:10: WBC 6.9, RBC 5.79, Hgb 18.1 H*, Hct 51.1, MCV 88.3, MCH 31.3, MCHC 35.4, RDW 12.2, RDW Differential 39.9, Plt Count 337, MPV 9.3, Immature Gran % (Auto) 0.700, Neut % (Auto) 64.2, Lymph % (Auto) 24.9, Potter % (Auto) 7.0, Eos % (Auto) 2.9, Baso % (Auto) 0.3, Absolute Neuts (auto) 4.4, Absolute Lymphs (auto) 1.71, Total Counted Not Reportable 10/25/18 12:10: Sodium 140, Potassium 3.9, Chloride 101, Carbon Dioxide 18.0 L, Anion Gap 21 H, BUN 19 H, Creatinine 1.33 H, Estim Creat Clear Calc 74.30, Est GFR (MDRD) Af Amer 88, Est GFR (MDRD) Non-Af 73, BUN/Creatinine Ratio 14.3, Glucose 315 H, Calcium 10.1, Total Bilirubin 0.60, AST 150 H, ALT 244 H, Alkaline Phosphatase 186 H, Total Protein 8.0, Albumin 4.0, Globulin 4.0, Albumin/Globulin Ratio 1.0 10/25/18 12:10: Acetone Level SMALL H 10/25/18 13:29: POC Glucose 188 H 10/25/18 14:44: POC Glucose 165 H 10/25/18 14:45: Sodium 138, Potassium 3.7, Chloride 104, Carbon Dioxide 26.0, Anion Gap 8, BUN 15, Creatinine 0.94, Estim Creat Clear Calc 105.12, Est GFR (MDRD) Af Amer 132, Est GFR (MDRD) Non-Af 109, BUN/Creatinine Ratio 16.0, Glucose 176 H, Calcium 8.9 10/25/18 15:53: POC Glucose 243 H 10/25/18 17:10: POC Glucose 209 H 10/25/18 18:07: POC Glucose 167 H 10/25/18 18:51: Sodium 140, Potassium 3.0 L, Chloride 105, Carbon Dioxide 28.0, Anion Gap 7, BUN 14, Creatinine 0.89, Estim Creat Clear Calc 111.03, Est GFR (MDRD) Af Amer 140, Est GFR (MDRD) Non-Af 116, BUN/Creatinine Ratio 15.7, Glucose 130 H, Calcium 8.5 10/25/18 19:58: POC Glucose 101 10/25/18 21:02: POC Glucose 89 10/25/18 22:00: Sodium 139, Potassium 3.4 L, Chloride 103, Carbon Dioxide 27.0, Anion Gap 9, BUN 12, Creatinine 0.80, Estim Creat Clear Calc 123.52, Est GFR (MDRD) Af Amer 159, Est GFR (MDRD) Non-Af 131, BUN/Creatinine Ratio 15.0, Glucose 231 H, Calcium 8.4 L 10/25/18 22:25: POC Glucose 275 H 10/26/18 01:20: POC Glucose 240 H 10/26/18 05:30: WBC 7.0, RBC 4.77, Hgb 14.7, Hct 43.2, MCV 90.6, MCH 30.8, MCHC 34.0, RDW 12.3, RDW Differential 39.8, Plt Count 254, MPV 9.4, Immature Gran % (Auto) 0.700, Neut % (Auto) 39.1 L, Lymph % (Auto) 44.3 H, Potter % (Auto) 6.5, Eos % (Auto) 9.0 H, Baso % (Auto) 0.4, Absolute Neuts (auto) 2.7, Absolute Lymphs (auto) 3.09, Total Counted Not Reportable 10/26/18 05:30: Sodium 142, Potassium 3.3 L, Chloride 107, Carbon Dioxide 24.0, Anion Gap 11, BUN 11, Creatinine 0.91, Estim Creat Clear Calc 108.77, Est GFR (MDRD) Af Amer 137, Est GFR (MDRD) Non-Af 113, BUN/Creatinine Ratio 12.1, Glucose 261 H, Calcium 8.0 L, Phosphorus 3.9, Magnesium 1.8, Total Bilirubin 0.20, Direct Bilirubin 0.08, AST 212 H, ALT 182 H, Alkaline Phosphatase 107, Total Protein 5.7 L, Albumin 2.8 L, Globulin 2.9 10/26/18 05:30: GGT 100 H, Lipase 45 L 10/26/18 05:30: Hemoglobin A1c Pending 10/26/18 06:49: POC Glucose 217 H Current Medications Dextrose (D50w Syringe) 0 gm IV X1 PRN; Protocol PRN Reason: HYPOGLYCEMIA Enoxaparin Sodium (Lovenox) 40 mg SC DAILY@1000 TING Glucagon () 1 mg IM .X1 PRN PRN Reason: Hypoglycemia Potassium Chloride () 10 meq in 100 mls @ 100 mls/hr IV BOLUS Q1H TING Stop: 10/26/18 11:59 Insulin Glargine (Lantus (Bkc)) 30 units SC BIDAC TING Last Admin: 10/26/18 07:55 Dose: 30 u Insulin Human Lispro (Humalog Kwikpen (Bk)) 0 unit SC ACHS TING; Protocol Last Admin: 10/26/18 07:55 Dose: 2 units Sodium Chloride () 5 - 15 ml IV UD PRN PRN Reason: SALINE FLUSH Last Admin: 10/25/18 15:58 Dose: 10 ml Medical Necessity - Tobacco Use Smoking Status: Never smoker Tobacco Use: Non-smoker Assessment/Plan All Active Problems (Last Reviewed 03/20/18 @ 15:05 by Amanda Wilkinson) DKA, type 1 (Acute) DKA (diabetic ketoacidoses) (Acute) 17-year-old male with type 1 diabetes presenting with generalized feeling of malaise and found to be in DKA. 1. DKA, likely due to noncompliance anion gap has closed, and patient feels much better today last A1C in August 2018 was ~ 13, indicating lack of compliance, though elenat says he has been very compliant bicarb is now 24 and anion gap is 11 continue gentle hydration. Insulin drip stopped will resume home dose of insulin, and adjust as needed. 2. Poorly controlled diabetes mellitus: as under 1. A1C is pending. 3. SAMUEL: cr was 1.33 on admission; has resolved and Cr is down to 0.91 4. Hypokalemia: K is 3.3. Will replace and monitor 5. Secondary polycythemia: resolved with IVF administration> Was likely due to hemoconcentration from dehydration. 6. Elevated liver enzymes: chronic. Likely due to chronic fatty liver disease. DVT prophylaxis: lovenox Code Visit Inpatient E&M: 39222 Subs Hosp L3
[2018-10-26] MEDS: Potassium Chloride 10mEq/100mL 10 MEQ/100 ML IV.SOLN. 100 MEQ IV BOLUS ×4 (08:34→14:57)
--- NOTE | 2018-10-26 08:39 | PN_ITS ---
Subjective: Patient seen and examined. He was admitted with complaint of lethargy and malaise and was found to have DKA. Anion gap closed overnight with hydration. Patient seen and examined this morning. He has no complaints. Review of systems otherwise negative and he feels much better than yesterday. Potassium was high at 3.2 and is to be replaced. Labs and vitals reviewed. Vitals/I&O's: Vital Signs Temp Pulse Resp BP Pulse Ox 97 F L 87 29 H 104/63 98 10/26/18 08:00 10/26/18 08:00 10/26/18 08:00 10/26/18 08:00 10/26/18 08:00 Oxygen Delivery Method Room Air Weight: 129 lb 13.636 oz Body Mass Index (BMI) 19.6 Finger Stick Blood Glucose 89 Intake and Output for Last 24 Hours 10/24/18 10/25/18 10/26/18 23:59 23:59 23:59 Intake Total 577 / 577 1287 / 1287 Balance 577 / 577 1287 / 1287 General: Alert, Oriented x3, Cooperative, No apparent distress HEENT: Atraumatic, PERRLA, EOMI, Normocephalic Oral: Moist Mucosa Neck: Supple, No JVD, Negative Carotid Bruits Lungs: Clear to auscultation, Normal air movement, No rhonchi, No wheeze, No rales Cardiovascular: Regular rate, Regular Rhythm, Normal S1, Normal S2, No murmurs Abdomen: Bowel Sounds Present, Soft, Non Tender, Non-Distended, No Hepato- splenomegaly Extremities: No clubbing, No cyanosis, No edema, Capillary Refill Less than 3 Seconds Skin: No rashes, No breakdown Musculoskeletal: No Tenderness to Palpation of Joints or Extremities Lymphatic: No Cervical, Supraclavicular, or Inguinal Adenopathy Neurological: Cranial nerves II-XII grossly intact, Neuro grossly intact, Motor Exam 5/5 strength throughout Psych/Mental Status: Normal Affect, Appropriate, Alert and oriented to time, place, person, mood and affect Laboratory Results 10/25/18 12:01: POC Glucose 347 H 10/25/18 12:10: WBC 6.9, RBC 5.79, Hgb 18.1 H*, Hct 51.1, MCV 88.3, MCH 31.3, MCHC 35.4, RDW 12.2, RDW Differential 39.9, Plt Count 337, MPV 9.3, Immature Gran % (Auto) 0.700, Neut % (Auto) 64.2, Lymph % (Auto) 24.9, [place] % (Auto) 7.0, Eos % (Auto) 2.9, Baso % (Auto) 0.3, Absolute Neuts (auto) 4.4, Absolute Lymphs (auto) 1.71, Total Counted Not Reportable 10/25/18 12:10: Sodium 140, Potassium 3.9, Chloride 101, Carbon Dioxide 18.0 L, Anion Gap 21 H, BUN 19 H, Creatinine 1.33 H, Estim Creat Clear Calc 74.30, Est GFR (MDRD) Af Amer 88, Est GFR (MDRD) Non-Af 73, BUN/Creatinine Ratio 14.3, Glucose 315 H, Calcium 10.1, Total Bilirubin 0.60, AST 150 H, ALT 244 H, Alkaline Phosphatase 186 H, Total Protein 8.0, Albumin 4.0, Globulin 4.0, Albumin/Globulin Ratio 1.0 10/25/18 12:10: Acetone Level SMALL H 10/25/18 13:29: POC Glucose 188 H 10/25/18 14:44: POC Glucose 165 H 10/25/18 14:45: Sodium 138, Potassium 3.7, Chloride 104, Carbon Dioxide 26.0, Anion Gap 8, BUN 15, Creatinine 0.94, Estim Creat Clear Calc 105.12, Est GFR (MDRD) Af Amer 132, Est GFR (MDRD) Non-Af 109, BUN/Creatinine Ratio 16.0, Glucose 176 H, Calcium 8.9 10/25/18 15:53: POC Glucose 243 H 10/25/18 17:10: POC Glucose 209 H 10/25/18 18:07: POC Glucose 167 H 10/25/18 18:51: Sodium 140, Potassium 3.0 L, Chloride 105, Carbon Dioxide 28.0, Anion Gap 7, BUN 14, Creatinine 0.89, Estim Creat Clear Calc 111.03, Est GFR (MDRD) Af Amer 140, Est GFR (MDRD) Non-Af 116, BUN/Creatinine Ratio 15.7, Glucose 130 H, Calcium 8.5 10/25/18 19:58: POC Glucose 101 10/25/18 21:02: POC Glucose 89 10/25/18 22:00: Sodium 139, Potassium 3.4 L, Chloride 103, Carbon Dioxide 27.0, Anion Gap 9, BUN 12, Creatinine 0.80, Estim Creat Clear Calc 123.52, Est GFR (MDRD) Af Amer 159, Est GFR (MDRD) Non-Af 131, BUN/Creatinine Ratio 15.0, Glucose 231 H, Calcium 8.4 L 10/25/18 22:25: POC Glucose 275 H 10/26/18 01:20: POC Glucose 240 H 10/26/18 05:30: WBC 7.0, RBC 4.77, Hgb 14.7, Hct 43.2, MCV 90.6, MCH 30.8, MCHC 34.0, RDW 12.3, RDW Differential 39.8, Plt Count 254, MPV 9.4, Immature Gran % (Auto) 0.700, Neut % (Auto) 39.1 L, Lymph % (Auto) 44.3 H, Durham % (Auto) 6.5, Eos % (Auto) 9.0 H, Baso % (Auto) 0.4, Absolute Neuts (auto) 2.7, Absolute Lymphs (auto) 3.09, Total Counted Not Reportable 10/26/18 05:30: Sodium 142, Potassium 3.3 L, Chloride 107, Carbon Dioxide 24.0, Anion Gap 11, BUN 11, Creatinine 0.91, Estim Creat Clear Calc 108.77, Est GFR (MDRD) Af Amer 137, Est GFR (MDRD) Non-Af 113, BUN/Creatinine Ratio 12.1, Glucose 261 H, Calcium 8.0 L, Phosphorus 3.9, Magnesium 1.8, Total Bilirubin 0.20, Direct Bilirubin 0.08, AST 212 H, ALT 182 H, Alkaline Phosphatase 107, Total Protein 5.7 L, Albumin 2.8 L, Globulin 2.9 10/26/18 05:30: GGT 100 H, Lipase 45 L 10/26/18 05:30: Hemoglobin A1c Pending 10/26/18 06:49: POC Glucose 217 H Current Medications Dextrose (D50w Syringe) 0 gm IV X1 PRN; Protocol PRN Reason: HYPOGLYCEMIA Enoxaparin Sodium (Lovenox) 40 mg SC DAILY@1000 TING Glucagon () 1 mg IM .X1 PRN PRN Reason: Hypoglycemia Potassium Chloride () 10 meq in 100 mls @ 100 mls/hr IV BOLUS Q1H TING Stop: 10/26/18 11:59 Insulin Glargine (Lantus (Bk)) 30 units SC BIDAC TING Last Admin: 10/26/18 07:55 Dose: 30 u Insulin Human Lispro (Humalog Kwikpen ([facility])) 0 unit SC ACHS TING; Protocol Last Admin: 10/26/18 07:55 Dose: 2 units Sodium Chloride () 5 - 15 ml IV UD PRN PRN Reason: SALINE FLUSH Last Admin: 10/25/18 15:58 Dose: 10 ml Medical Necessity - Tobacco Use Smoking Status: Never smoker Tobacco Use: Non-smoker Assessment/Plan All Active Problems (Last Reviewed 03/20/18 @ 15:05 by Amanda Wilkinson) DKA, type 1 (Acute) DKA (diabetic ketoacidoses) (Acute) 17-year-old male with type 1 diabetes presenting with generalized feeling of malaise and found to be in DKA. 1. DKA, likely due to noncompliance * anion gap has closed, and patient feels much better today * last A1C in August 2018 was ~ 13, indicating lack of compliance, though gladys says he has been very compliant * bicarb is now 24 and anion gap is 11 * continue gentle hydration. Insulin drip stopped * will resume home dose of insulin, and adjust as needed. * 2. Poorly controlled diabetes mellitus: as under 1. A1C is pending. 3. SAMUEL: cr was 1.33 on admission; has resolved and Cr is down to 0.91 4. Hypokalemia: K is 3.3. Will replace and monitor 5. Secondary polycythemia: resolved with IVF administration> Was likely due to hemoconcentration from dehydration. 6. Elevated liver enzymes: chronic. Likely due to chronic fatty liver disease. DVT prophylaxis: lovenox Code Visit Inpatient E&M: 76518 Subs Hosp L3
[2018-10-26 09:15] LABS: Hemoglobin A1c 12.5 % (4.2-6.3)
[2018-10-26] MEDS: Enoxaparin 40 MG/0.4 ML Syringe SC (10:00)
[2018-10-26 11:41] LABS: Bedside Glucose 272 mg/dL (70-110)
--- NOTE | 2018-10-26 14:47 | CASEMGMT ---
Social Work: History obtained from: Patient Household composition: Patient lives with his grandmother. Patient's family dynamics and status: Patient has a brother and sister that he communicates with on a regular basis. Patient states that he sees in dad some times but does not have any contact with his mother. Patient medical history: Patient states that he has had diabetes since the age of 2. Educational/work status: Patient graduated form high school. Patient attended both [employer] and the [employer]. 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 Financial status: Patient currently works at [employer]. Patient has [employer]. Transportation: Patient does not drive and relies on patient's grandmother for transportation. Programs/agencies involved: [facility], [facility] Issues: Patient denies any current mood disturbances but does state that he has had counseling at [facility] for depression in the past. Patient appeared to have a stable affect and was able to verbalize without difficulties to this SW. Alcohol/drug history: Patient denies any history of alcohol or drug addiction. Assessment: Patient admitted for DKA and states that he and his grandmother have been sick which is what he attributes this admission to. Patient states that he is compliant with his DM care but has not seen his kai [place] in [place] for 6 months. Patient denies any needs at this time and plans to return home with his grandmother at D/C. DONG Ngo
[2018-10-26 17:25] LABS: Bedside Glucose 190 mg/dL (70-110)
[2018-10-26] MEDS: 0.9% NaCl Peripheral Flush Adult/Peds IV (20:43)
[2018-10-26 22:21] LABS: Bedside Glucose 243 mg/dL (70-110)
[2018-10-27 02:16] VITALS: BP 109/63; PULSE 76; RESP 16; TEMP 36.4; O2SAT 98
[2018-10-27 07:33] VITALS: BP 124/85; PULSE 64; RESP 18; TEMP 36.7; O2SAT 99
[2018-10-27 07:41] LABS: Bedside Glucose 170 mg/dL (70-110)
[2018-10-27 07:56] LABS: Absolute Lymphocyte Count 2.23 X10^3/ul (0.83-4.51); Absolute Neutrophil Count 1.2 X10^3/uL (2.0-7.7); Basophil# 0.02 X10^3/uL; Basophil% 0.5 % (0-1); Eosinophil# 0.35 X10^3/uL; Eosinophils% 8.5 % (0-5); Hematocrit 44.2 % (40-54); Hemoglobin 14.9 g/dl (13.0-16.5); Lymphocyte # 2.23 X10^3/ul (4.0); Lymphocyte % 54.1 % (19-41); Mean Corp Hgb Conc 33.7 g/gl (32-36); Mean Corpuscular Hgb 31.4 pg (27.0-32.0); Mean Corpuscular Volume 93.2 fL (80-94); Mean Platelet Vol. 9.6 fl (6.2-12.0); Monocyte# 0.28 X10^3/uL; Monocyte% 6.8 % (0-10); Neutrophil # 1.22 X10^3/uL (2.7-7.7); Neutrophil % 29.6 % (47-70); Platelet Count 183 K/mm3 (150-450); RBC Distribution Width CV 12.4 % (11.6-14.6); RBC Distribution Width SD 42.1 fl (35.1-43.9); Red Blood Count 4.74 M/mm3 (4.6-6.2); White Blood Count 4.1 K/mm3 (4.4-11.0)
[2018-10-27 08:02] LABS: POSITIVE COUNT NO; POSITIVE DIFFERENTIAL NO; POSITIVE MORPHOLOGY NO
[2018-10-27 08:13] LABS: Anion Gap 6 (5-15); BUN 9 mg/dL (7-18); BUN/Creat Ratio 17.2 RATIO (10-20); Chloride 111 mmol/L (98-107); Creatinine, Serum 0.52 mg/dL (0.70-1.30); EST Glomerular Filtration Rate 214 mL/min (>60); Est Glom Filt Rate - Afr Amer 259 mL/min (>60); Estimated Creatinine Clearance 190.36 ml/min; Glucose 163 mg/dL (74-106); Potassium 3.3 mmol/L (3.5-5.1); Sodium Level 143 mmol/L (136-145)
[2018-10-27] MEDS: Insulin Lispro 100 UNIT/ML INSULN.PEN SC ×2 (08:26→12:05)
[2018-10-27] MEDS: Enoxaparin 40 MG/0.4 ML Syringe SC (08:28)
--- NOTE | 2018-10-27 11:11 | PCM.DC ---
You will use the following diet at home:: Calorie/Carbohydrate Controlled (specify 1200, 1400, etc) - 1800 Your food should be the consistency of: Regular Your liquids should be the consistency of: Regular/Thin Discharge Activity: Return to Normal Activity Weight Bearing Status: Weight bearing as tolerated Call your doctor if you observe: - - elevated blood sugars Instructions: A1C, Diabetes: Understanding Carbohydrates, Diabetes: Understanding Carbohydrates, Fats, and Protein, Diabetes: Ways to Take Medication, Types of Insulin Allergies/Adverse Reactions: Allergies No Known Allergies Allergy (Verified 10/25/18 11:56) Medications to take at Discharge Insulin Lispro [Humalog KwikPen] See Protocol SQ ACHS 08/21/18 Insulin Glargine,Hum.rec.anlog [Basaglar Kwikpen U-100] 40 unit SQ BIDAC #2 insuln.pen 10/27/18 The following prescriptions were given: Insulin Glargine,Hum.rec.anlog [Basaglar Kwikpen U-100] 40 unit SQ BIDAC #2 insuln.pen Primary Care Physician: Scott Gomez MD [Primary Care Provider] - Please follow up with your Primary Care Physician in: one week Test Results: Test results from this visit will be discussed in further detail at your follow-up appointment, if applicable. When: your anatomy and physiology instructor in [place] as soon as possible Proposed Discharge Date: 10/27/18
--- NOTE | 2018-10-27 11:13 | PCM.DC.SUM ---
Discharge Date and Diagnosis Date of Admission: 10/25/18 Date of Discharge: 10/27/18 - Primary Discharge Diagnosis DKA - Secondary Discharge Diagnosis Chronic Problems (Last Reviewed 03/20/18 @ 15:05 by Amanda Wilkinson) Anxiety and depression (Chronic) GERD (gastroesophageal reflux disease) (Chronic) Fatty liver (Chronic) Suicidal ideations (Chronic) DM I (diabetes mellitus, type I), uncontrolled (Chronic) Hospital Course and Treatment critical care- Dr Kyaw Cheney Operations: None Procedures: None Summary of Care Provided: The patient is a 17 year old M with past medical history of type 1 diabetes mellitus with recurrent DKA the last one being about 3 months ago. He was admitted through the ED on 10/25/2018 with a general feeling of unwellness and malaise. Patient states his sister and his niece have been sick for the past few days as in his knees was actually admitted for 2 days for influenza A. He was around them and started feeling weak and lethargic. He felt really horrible and had severe nausea with associated vomiting. He decided to go to an urgent care facility and was referred to the hospital ED on account of suspicion for DKA. He did admit to mild fever and chills but denied any cough or chest pain, palpitations or dizziness, diarrhea vomiting. He did admit to still having abdominal pain. Review of systems otherwise negative. On admission in the ED, vitals were significant for tachycardia with heart rate of 113. Blood glucose was 315 and bicarb was 18 with anion gap of 21. CBC showed no leukocytosis and hemoglobin was elevated at 18.1. Liver enzymes were also mildly elevated which is chronic. He was admitted to be managed for DKA. He was admitted to the ICU and started on insulin drip. Successfully closed and he was transitioned to his subcu insulin. He was transferred out of the unit. Patient on further inquiry stated that he had been following up with an learning and development coordinator in [place] home he had recently started seeing N. He said his morning sugars were very elevated in the 400s and his evening sugars were usually in the high 100s-300s. He claims adherence to his insulin dosage and also stated he ate a good diet. Patient's insulin was increased from base regular 30 units twice daily to 40 units twice daily he is to continue his insulin sliding scale and carbohydrate ratio as prescribed by his learning and development coordinator. Patient counseled to follow-up with his learning and development coordinator as soon as possible. Patient remained stable and was discharged home on 10/27/2018. He is to follow-up with his primary care doctor within 1 week and with his learning and development coordinator as soon as possible as he said his next appointment is in the next 3 months. Patient seen and examined prior to discharge. He had no complaints. Review of systems otherwise negative. Labs and vitals reviewed. Home medications reviewed and reconciled. o/e: Vital Signs Height 5 ft 8.11 in Weight: 129 lb 13.636 oz Weight in Pounds 129.9 lbs Pulse Ox 100 Temperature 98.0 F Pulse Rate 70 Respiratory Rate 18 Blood Pressure [BP] 104/63 Blood Pressure 125/83 Blood Pressure Position [BP] Semi-Fowlers Blood Pressure Position Semi-Fowlers General: Alert, Oriented x3, Cooperative, No apparent distress HEENT: Atraumatic, PERRLA, EOMI, Normocephalic Oral: Moist Mucosa Neck: Supple, No JVD, Negative Carotid Bruits Lungs: Clear to auscultation, Normal air movement, No rhonchi, No wheeze, No rales Cardiovascular: Regular rate, Regular Rhythm, Normal S1, Normal S2, No murmurs Abdomen: Bowel Sounds Present, Soft, Non Tender, Non-Distended, No Hepato-splenomegaly Extremities: No clubbing, No cyanosis, No edema, Capillary Refill Less than 3 Seconds Skin: No rashes, No breakdown Musculoskeletal: No Tenderness to Palpation of Joints or Extremities Lymphatic: No Cervical, Supraclavicular, or Inguinal Adenopathy Neurological: Cranial nerves II-XII grossly intact, Neuro grossly intact, Motor Exam 5/5 strength throughout Psych/Mental Status: Normal Affect, Appropriate, Alert and oriented to time, place, person, mood and affect Plan as above. Basaglar insulin increased to 30 units twice daily. Rest of plan as above. - Physical Exam Vital Signs Temp Pulse Resp BP Pulse Ox 98.0 F 64 18 124/85 H 99 10/27/18 07:33 10/27/18 07:33 10/27/18 07:33 10/27/18 07:33 10/27/18 07:33 Oxygen Delivery Method Room Air Weight: 129 lb 13.636 oz Body Mass Index (BMI) 19.6 Finger Stick Blood Glucose 89 Intake and Output for Last 24 Hours 10/25/18 10/26/18 10/27/18 23:59 23:59 23:59 Intake Total 577 / 577 2167 / 2167 1590 / 1590 Output Total 1000 / 1000 Balance 577 / 577 1167 / 1167 1590 / 1590 Laboratory Tests Past 24 Hrs 10/27/18 10/27/18 07:11 07:11 WBC 4.1 L RBC 4.74 Hgb 14.9 Hct 44.2 MCV 93.2 MCH 31.4 MCHC 33.7 RDW 12.4 RDW Differential 42.1 Plt Count 183 MPV 9.6 Immature Gran % (Auto) 0.500 Neut % (Auto) 29.6 L Lymph % (Auto) 54.1 H Barnwell % (Auto) 6.8 Eos % (Auto) 8.5 H Baso % (Auto) 0.5 Absolute Neuts (auto) 1.2 L Absolute Lymphs (auto) 2.23 Total Counted Not Reportable Sodium 143 Potassium 3.3 L Chloride 111 H Carbon Dioxide 26.0 Anion Gap 6 BUN 9 Creatinine 0.52 L Estim Creat Clear Calc 190.36 Est GFR (MDRD) Af Amer 259 Est GFR (MDRD) Non-Af 214 BUN/Creatinine Ratio 17.2 Glucose 163 H Calcium 8.0 L POC Glucose 10/27/18 10/26/18 10/26/18 07:30 22:05 17:18 POC Glucose 170 H 243 H 190 H 10/26/18 11:31 POC Glucose 272 H Discharge Diet: 1800 Calorie Control Diet Discharge Activity: Return to Normal Activity Weight Bearing Status: Weight bearing as tolerated Call your doctor if you observe: - - elevated blood sugars Home Medications: Medications to take at Discharge Insulin Lispro [Humalog KwikPen] See Protocol SQ ACHS 08/21/18 Insulin Glargine,Hum.rec.anlog [Basaglar Kwikpen U-100] 40 unit SQ BIDAC #2 insuln.pen 10/27/18 Following Prescrptions Were Given to Patient: Insulin Glargine,Hum.rec.anlog [Basaglar Kwikpen U-100] 40 unit SQ BIDAC #2 insuln.pen Primary Care Physician: Scott Gomez MD [Primary Care Provider] - Please follow up with your Primary Care Physician in: one week When: your learning and development coordinator in [place] as soon as possible Patient Instructions: A1C, Types of Insulin, Diabetes: Understanding Carbohydrates, Diabetes: Understanding Carbohydrates, Fats, and Protein, Diabetes: Ways to Take Medication Disposition: Home Minutes spent on discharge:: 40 Patient Condition:: Stable Medical Necessity - Tobacco Use Smoking Status: Never smoker Tobacco Use: Non-smoker Meaningful Use Info Meaningful Use Diagnoses (Choose all that apply): None applicable Code Visit Inpatient E&M: 29921 Disch Hosp
[2018-10-27 11:41] LABS: Bedside Glucose 256 mg/dL (70-110)
[2018-10-27 12:00] VITALS: BP 125/83; PULSE 70; RESP 18; TEMP 36.7; O2SAT 100
[2018-10-27 12:35] VITALS: BP 125/83; PULSE 70; RESP 18; TEMP 36.7; O2SAT 100
--- NOTE | 2018-10-30 15:37 | CASEMGMT ---
ROMANA WHITE Discharge Follow-Up Phone Call. Laclucretia: 12 Strata: 3 Discharge Date: 10/27/18 Adm Dx: DKA Call to pt to inquire about how he has been doing since being discharged from the hospital. Pt states he has been doing pretty good and states his blood sugars have been pretty normal. Pt states he was able to get his prescriptions filled and has no questions about the discharge instructions or medications. Pt states he has not made the appts with his first aid nurse yet or with his PCP yet, but he plans to do so. Jarred SCHMITZ RN CM
== END 2018-10-27 12:35 | disposition home or self-care (01) | DRG 420 ==
LOC: ED 12:31 → ICU 20:07 → MS3 10-29 08:16
PROVIDERS: Internal Medicine Critical Care Medicine; Admitting Provider Student in an Organized Health Care Education/Training Program; Emergency Provider Emergency Medicine; Family Provider Pediatrics; PCP Pediatrics; Referring Provider Student in an Organized Health Care Education/Training Program; Visit Provider Student in an Organized Health Care Education/Training Program
DX: E10.10 Type 1 diabetes mellitus with ketoacidosis without coma (principal); N17.9 Acute kidney failure, unspecified; D75.1 Secondary polycythemia; E87.6 Hypokalemia; K76.0 Fatty (change of) liver, not elsewhere classified; Z79.4 Long term (current) use of insulin; F32.9 Major depressive disorder, single episode, unspecified; K21.9 Gastro-esophageal reflux disease without esophagitis; F41.9 Anxiety disorder, unspecified
CPT/HCPCS: 80048; 80053; 80076; 82009; 82962; 82977; 83036; 83690; 83735; 84100; 85025; 97802; 99285; J7030; A4216; J2405; J7799

== ENCOUNTER 2018-11-24 23:26 | Emergency (ER) | payer OTHER, SELFPAY ==
[2018-10-25 15:00] VITALS: BMI 19.6
[2018-11-24 23:28] VITALS: BP 123/66; PULSE 83; RESP 16; TEMP 36.5; O2SAT 98
--- NOTE | 2018-11-24 23:58 | ED.RN ---
[facility] called at this time for drug testing
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
[2018-11-25 00:56] VITALS: PULSE 90; RESP 16; O2SAT 96
== END 2018-11-25 00:57 | disposition home or self-care (01) ==
PROVIDERS: Emergency Provider Emergency Medicine; Family Provider Pediatrics; PCP Pediatrics
DX: T24.031A Burn of unspecified degree of right lower leg, initial encounter (principal); T31.0 Burns involving less than 10% of body surface; E11.9 Type 2 diabetes mellitus without complications; Z79.4 Long term (current) use of insulin; X10.1XXA Contact with hot food, initial encounter; Y93.9 Activity, unspecified; Y92.89 Other specified places as the place of occurrence of the external cause; Y99.0 Civilian activity done for income or pay
CPT/HCPCS: 99283

== ENCOUNTER 2018-12-10 15:41 | Emergency (ER) | payer MEDICAID, SELFPAY ==
[2018-12-10 15:43] VITALS: BP 100/68; PULSE 119; RESP 18; TEMP 36.4; O2SAT 96; BMI 19.0
[2018-12-10] MEDS: 0.9% Normal Saline 1,000 ML 1000 ML IV (16:19)
[2018-12-10 16:26] LABS: Bedside Glucose 122 mg/dL (70-110)
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
[2018-12-10 16:41] LABS: Absolute Lymphocyte Count 1.83 X10^3/ul (0.83-4.51); Absolute Neutrophil Count 5.8 X10^3/uL (2.0-7.7); Basophil# 0.02 X10^3/uL; Basophil% 0.2 % (0-1); Eosinophil# 0.04 X10^3/uL; Eosinophils% 0.5 % (0-5); Hematocrit 44.5 % (40-54); Lymphocyte # 1.83 X10^3/ul (4.0); Lymphocyte % 21.2 % (19-41); Mean Corpuscular Hgb 31.7 pg (27.0-32.0); Mean Corpuscular Volume 88.3 fL (80-94); Mean Platelet Vol. 9.1 fl (6.2-12.0); Monocyte# 0.68 X10^3/uL; Monocyte% 7.9 % (0-10); Neutrophil # 5.83 X10^3/uL (2.7-7.7); Neutrophil % 67.4 % (47-70); Platelet Count 324 K/mm3 (150-450); RBC Distribution Width CV 12.7 % (11.6-14.6); RBC Distribution Width SD 40.8 fl (35.1-43.9); Red Blood Count 5.04 M/mm3 (4.6-6.2); White Blood Count 8.6 K/mm3 (4.4-11.0)
[2018-12-10 16:42] LABS: POSITIVE COUNT YES; POSITIVE DIFFERENTIAL NO; POSITIVE MORPHOLOGY YES
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
[2018-12-10 16:46] LABS: Anion Gap 13 (5-15); BUN 20 mg/dL (7-18); BUN/Creat Ratio 18.7 RATIO (10-20); Calcium,Total 9.4 mg/dL (8.5-10.1); Chloride 102 mmol/L (98-107); Creatinine, Serum 1.07 mg/dL (0.70-1.30); EST Glomerular Filtration Rate 94 mL/min (>60); Est Glom Filt Rate - Afr Amer 113 mL/min (>60); Estimated Creatinine Clearance 89.05 ml/min; Glucose 127 mg/dL (74-106); Potassium 3.6 mmol/L (3.5-5.1); Sodium Level 136 mmol/L (136-145)
--- NOTE | 2018-12-10 17:09 | ED.DEP ---
ED Disposition - Plan for ED Patient: Disposition: Home or Assisted Living Instructions: ED Dizziness [facility] Referrals: Scott Gomez MD [Primary Care Provider] - 3-5 Days if not improving Additional Instructions: Plenty of fluids and rest. Your blood counts and blood sugars were unremarkable today her glucose was 127. You are not in DKA. Not improving. Watch her blood sugars closely.
[2018-12-10 17:27] VITALS: BP 121/34; PULSE 65; RESP 15; O2SAT 99
[2018-12-11 14:48] LABS: Pathologist Review Reviewed
== END 2018-12-10 17:28 | disposition home or self-care (01) ==
LOC: ED 17:14
PROVIDERS: Emergency Provider Emergency Medicine; Family Provider Pediatrics; PCP Pediatrics
DX: E11.65 Type 2 diabetes mellitus with hyperglycemia (principal); Z79.4 Long term (current) use of insulin
CPT/HCPCS: 80048; 82009; 82962; 85025; 96360; 99284; J7030

== ENCOUNTER 2019-02-04 11:39 | Observation (INO) | payer MEDICAID, SELFPAY ==
[2019-02-04] VITALS (15 sets, daily range): BP systolic 108–125; BP diastolic 60–79; PULSE 67–116; RESP 14–24; TEMP 36.4–36.8; O2SAT 97–100; BMI 20.5; BMI 21.0; BMI 20.9
[2019-02-04 11:50] LABS: Bedside Glucose 404 mg/dL (70-110)
--- NOTE | 2019-02-04 12:02 | EKG12_ITS ---
Test Reason : CP Blood Pressure : / mmHG Vent. Rate : 092 BPM Atrial Rate : 092 BPM P-R Int : 126 ms QRS Dur : 088 ms QT Int : 322 ms P-R-T Axes : 064 040 036 degrees QTc Int : 398 ms Normal sinus rhythm Right atrial enlargement Nonspecific T wave abnormality Abnormal ECG Confirmed by REILLY OLMEDO, GIOVANI ([id number]), video news editor CHRISSIE CACERES ([id number]) on 02/06/2019 4:32:32 PM Referred By: FABIO Confirmed By:GIOVANI GROVER MD
[2019-02-04] MEDS: 0.9% Normal Saline 1,000 ML 999 ML IV ×3 (12:45→16:35)
[2019-02-04 13:29] LABS: Anion Gap 15 (5-15); BUN 10 mg/dL (7-18); BUN/Creat Ratio 8.6 RATIO (10-20); Chloride 100 mmol/L (98-107); Creatinine, Serum 1.16 mg/dL (0.70-1.30); EST Glomerular Filtration Rate 85 mL/min (>60); Est Glom Filt Rate - Afr Amer 103 mL/min (>60); Estimated Creatinine Clearance 87.79 ml/min; Glucose 376 mg/dL (74-106); Potassium 4.9 mmol/L (3.5-5.1); Sodium Level 134 mmol/L (136-145)
[2019-02-04 13:41] LABS: Absolute Lymphocyte Count 2.77 X10^3/uL (0.83-4.51); Basophil# 0.05 X10^3/uL; Basophil% 0.7 % (0-1); Eosinophil# 0.74 X10^3/uL; Eosinophils% 10.4 % (0-5); Hemoglobin 17.2 g/dL (13.0-16.5); Lymphocyte # 2.77 X10^3/ul (4.0); Lymphocyte % 38.9 % (19-41); Mean Corp Hgb Conc 35.1 g/dL (32-36); Mean Corpuscular Hgb 31.7 pg (27.0-32.0); Mean Corpuscular Volume 90.2 fL (80-94); Mean Platelet Vol. 9.9 fl (6.2-12.0); Monocyte# 0.49 X10^3/uL; Monocyte% 6.9 % (0-10); NRBC Flagged by Analyzer 0 % (0-5); Neutrophil # 2.96 X10^3/uL (2.7-7.7); Neutrophil % 41.6 % (47-70); Platelet Count 316 K/mm3 (150-450); RBC Distribution Width CV 12.1 % (11.6-14.6); RBC Distribution Width SD 39.9 fl (35.1-43.9); Red Blood Count 5.43 M/mm3 (4.6-6.2); White Blood Count 7.1 K/mm3 (4.4-11.0)
[2019-02-04 14:01] LABS: Bedside Glucose 495 mg/dL (70-110)
[2019-02-04 15:10] LABS: Bedside Glucose > 500 mg/dL (70-110)
[2019-02-04 15:52] LABS: Bacteria 0 SEEN /hpf (None Seen); Mucous, Urine 0 SEEN /hpf (<or=2+); Red Blood Cells-Urine 0 SEEN /hpf (0-5); Squamous Epithelial Cells - UA 0 SEEN /hpf (0-5); White Blood Cells 0 SEEN /hpf (0-5)
[2019-02-04 16:00] LABS: Bedside Glucose > 500 mg/dL (70-110)
[2019-02-04 16:04] LABS: Color, Urine Yellow (Yellow); Glucose, Dipstick 1000 mg/dl (Normal); Ketone-Dipstick 50 mg/dl (Negative); Leukocyte Esterase-Dipstick Negative /ul (Negative); Nitrite-Dipstick Negative (Negative); Occult Blood-Urine Negative /ul (Negative); Protein-Dipstick Negative (Negative); Urine Bilirubin Dipstick Negative (Negative); Urine Clarity Clear (Clear); Urine Urobilinogen Normal (Normal); Urine pH 6.5 (5.0 - 8.0)
--- NOTE | 2019-02-04 16:10 | PCM.HP.STD ---
Problem List (1) Anxiety and depression Status: Chronic (2) GERD (gastroesophageal reflux disease) Status: Chronic Qualifiers: Esophagitis presence: esophagitis presence not specified (3) DM I (diabetes mellitus, type I), uncontrolled Status: Chronic Qualifiers: Glycemic state: with hyperglycemia Qualified Code(s): E10.65 - Type 1 diabetes mellitus with hyperglycemia (4) DKA (diabetic ketoacidoses) Status: Acute Qualifiers: Diabetes mellitus type: type 1 Diabetes mellitus complication detail: without coma Qualified Code(s): E10.10 - Type 1 diabetes mellitus with ketoacidosis without coma History of Present Illness Date of Admission: 02/04/19 Chief Complaint: Nausea, vomiting - 1 day , The patient is a 18 year old M with PMHx of Type 1 DM, history of recurrent admissions for DKA, anxiety/depression who comes in with complaints of nausea and vomiting ongoing for 1 day. Denies any fever or chills or sick contacts or diarrhea. Patient insists that he takes his insulins every day just like he does. He denies running out of his medications. His admitting vitals show temperature 98.2 F, heart 116, blood pressure 125/75, respiratory rate is 70, SPO2 98% on room air. His admitting blood count showed WBC count 7.1, hemoglobin 17.2, platelet count 316, BMP shows sodium 134, potassium 4.9, bicarbonate 19, anion gap 15, BUN 10, creatinine 1.16, UA unremarkable Past Medical History Past Medical History (Chronic Problems): Chronic Problems (Last Reviewed 03/20/18 @ 15:05 by Amanda Wilkinson) Anxiety and depression (Chronic) GERD (gastroesophageal reflux disease) (Chronic) Fatty liver (Chronic) Suicidal ideations (Chronic) DM I (diabetes mellitus, type I), uncontrolled (Chronic) Medical History: Medical History (Last Reviewed 03/20/18 @ 15:05 by Amanda Wilkinson) Anxiety disorder F41.9 Back problem M53.9 Bone fracture T14.8XXA Diabetes type 1, uncontrolled E10.65 Dx : age 2 Last exacerbation : DKA : 01/31 Hypoglycemic episode : never ER visit : 01/31 Hearing problem H91.90 Liver disease K76.9 Seizure R56.9 Vision problem H54.7 Allergies No Known Allergies Allergy (Verified 02/04/19 11:42) Home Medications: Ambulatory Orders Medication Instructions Recorded Insulin Lispro [Humalog KwikPen] See Protocol SQ ACHS 08/21/18 Insulin Glargine,Hum.rec.anlog 40 unit SQ BIDAC #2 insuln.pen 10/27/18 [Basaglar Kwikpen U-100] Surgical History: Surgical History (Last Reviewed 03/20/18 @ 15:05 by Amanda Wilkinson) S/p bilateral myringotomy with tube placement Z96.22 Surgical History: - - BL ear tubes. Psychiatric History: Anxiety, Depression, Prior suicide attempt Smoking Status: Never smoker Tobacco Use: Non-smoker Alcohol: None Drugs: None - *Family History Maternal Family History: Family History (Last Reviewed 03/20/18 @ 15:05 by Amanda Wilkinson) Mother Kidney disease History Items: Heart Disease, Renal Disease Paternal Family History: Family History (Last Reviewed 03/20/18 @ 15:05 by Amanda Wilkinson) Mother Kidney disease History Items: Heart Disease, - - Paternal family males w/ frequent hearing disorder. Review of Systems Constitutional: Reports: Weakness, Fatigue. Denies: Anorexia, Chills, Fever, Weight Change Eyes: Denies: Blurred vision, Cataracts, Conjunctivae Inflammation, Pain, Redness, Vision Change HEENT: Denies: Difficulty Hearing, Difficulty Swallowing, Head Aches, Hearing Changes, Sinus Congestion, Sinus Drainage, Sore Throat Cardiovascular: Denies: Chest Pain, Claudication, Orthopnea, Palpitations, Paroxysmal Noc. Dyspnea Respiratory: Denies: Cough, Shortness of breath at rest, Shortness of breath upon exertion, Sputum production Gastrointestinal: Denies: Abdominal Pain, Hematemesis, Hematochezia, Nausea, Vomiting Genitourinary: Denies: Dysuria, Frequency, Incontinence Musculoskeletal: Denies: Joint Pain, Joint Tenderness Skin: Denies: Rash, Wounds Neurological: Denies: Difficulty swallowing, Focal weakness, Numbness, Tingling Psychiatric: Denies: Anxiety, Depression, Homicidal Ideations, Suicidal Ideations Hematologic/ Lymphatic: Denies: Easy Bruising, Easy Bleeding VTE Information - Inpt Only VTE Present on Admission: No VTE Pharm Prophylaxis ordered?: Yes Patient Problems: Active and Suspected Problems (Last Reviewed 03/20/18 @ 15:05 by Amanda Wilkinson) DKA (diabetic ketoacidoses) (Acute) - Physical Exam General: Alert, Oriented x3, Cooperative, No apparent distress HEENT: Atraumatic, PERRLA, EOMI, Normocephalic Oral: Moist Mucosa Neck: Supple Lungs: Clear to auscultation, Normal air movement Cardiovascular: Regular rate, Regular Rhythm, Normal S1, Normal S2, No murmurs Abdomen: Bowel Sounds Present, Soft, Non Tender, Non-Distended, No Hepato-splenomegaly Extremities: No edema Skin: No rashes, No breakdown Musculoskeletal: No Tenderness to Palpation of Joints or Extremities Lymphatic: No Cervical, Supraclavicular, or Inguinal Adenopathy Neurological: Cranial nerves II-XII grossly intact, Neuro grossly intact Psych/Mental Status: Normal Affect, Appropriate Vital Signs Temp Pulse Resp BP Pulse Ox 98.2 F 116 H 17 111/79 98 02/04/19 11:42 02/04/19 11:42 02/04/19 11:42 02/04/19 15:44 02/04/19 11:42 Oxygen Delivery Method Room Air Weight: 61.1 kg Body Mass Index (BMI) 20.5 Finger Stick Blood Glucose 527 Laboratory Tests Past 24 Hrs 02/04/19 02/04/19 02/04/19 11:52 11:52 11:52 WBC 7.1 RBC 5.43 Hgb 17.2 H Hct 49.0 MCV 90.2 MCH 31.7 MCHC 35.1 RDW Std Deviation 39.9 RDW Coeff of Richard 12.1 Plt Count 316 MPV 9.9 Immature Gran % (Auto) 1.500 H Neut % (Auto) 41.6 L Lymph % (Auto) 38.9 [place] % (Auto) 6.9 Eos % (Auto) 10.4 H Baso % (Auto) 0.7 Absolute Neuts (auto) 3.0 Absolute Lymphs (auto) 2.77 Absolute Nucleated RBC 0.00 Nucleated RBC % 0 Sodium 134 L Potassium 4.9 Chloride 100 Carbon Dioxide 19.0 L Anion Gap 15 BUN 10 Creatinine 1.16 Estim Creat Clear Calc 87.79 Est GFR (MDRD) Af Amer 103 Est GFR (MDRD) Non-Af 85 BUN/Creatinine Ratio 8.6 L Glucose 376 H Calcium 10.0 Urine Color Urine Clarity Urine pH Ur Specific [place] Urine Protein Urine Glucose (UA) Urine Ketones Urine Occult Blood Urine Nitrite Urine Bilirubin Urine Urobilinogen Ur Leukocyte Esterase Urine RBC Urine WBC Ur Squamous Epith Cells Urine Bacteria Urine Mucus Acetone Level SMALL H 02/04/19 15:42 WBC RBC Hgb Hct MCV MCH MCHC RDW Std Deviation RDW Coeff of Richard Plt Count MPV Immature Gran % (Auto) Neut % (Auto) Lymph % (Auto) [place] % (Auto) Eos % (Auto) Baso % (Auto) Absolute Neuts (auto) Absolute Lymphs (auto) Absolute Nucleated RBC Nucleated RBC % Sodium Potassium Chloride Carbon Dioxide Anion Gap BUN Creatinine Estim Creat Clear Calc Est GFR (MDRD) Af Amer Est GFR (MDRD) Non-Af BUN/Creatinine Ratio Glucose Calcium Urine Color Pending Urine Clarity Pending Urine pH Pending Ur Specific [place] Pending Urine Protein Pending Urine Glucose (UA) Pending Urine Ketones Pending Urine Occult Blood Pending Urine Nitrite Pending Urine Bilirubin Pending Urine Urobilinogen Pending Ur Leukocyte Esterase Pending Urine RBC Pending Urine WBC Pending Ur Squamous Epith Cells Pending Urine Bacteria Pending Urine Mucus Pending Acetone Level POC Glucose 02/04/19 02/04/19 02/04/19 15:54 15:02 13:57 POC Glucose > 500 H* > 500 H* 495 H* 02/04/19 11:41 POC Glucose 404 H Assessment/Plan All Active Problems (Last Reviewed 03/20/18 @ 15:05 by Amanda Wilkinson) DKA, type 1 (Acute) DKA (diabetic ketoacidoses) (Acute) 18 year old M with PMHx of Type 1 DM, history of recurrent admissions for DKA, anxiety/depression who comes in with complaints of nausea and vomiting ongoing for 1 day. Denies any fever or chills or sick contacts or diarrhea. Patient insists that he takes his insulins every day just like he does. He denies running out of his medications. 1. DKA, in a known type I DM patient with history of recurrent admissions for DKA, unclear etiology for this current episode; denies missing his medications or running out of his medications Plan: Admit to ICU, monitor vitals closely, IV fluids, continue insulin drip, BMP every 4 hours, replace electrolytes per protocol 2. Anxiety/depression, not on medications 3. DVT PPx- early ambulation Code Visit Inpatient E&M: 34415 Init Hosp L3
--- NOTE | 2019-02-04 16:17 | NURSING ---
[id number] A SINDHU
--- NOTE | 2019-02-04 16:21 | ED.DCSUM_ITS ---
History of Present Illness Chief Complaint: Weakness Narrative: 18-year-old male with a history of diabetes presents with DKA. He has had nausea and vomiting for the past 2 days. His blood glucose was too high to read today. He denies any other recent illness. Denies fever or localized abdominal discomfort. He has been in DKA in the past and this feels similar. Current severity is moderate. No relieving or exacerbating factors. Past Medical History - Allergies and Home Meds Allergies/Adverse Reactions: Allergies No Known Allergies Allergy (Verified 02/04/19 11:42) Prior records reviewed: Yes Surgical History: - - BL ear tubes. Smoking Status: Never smoker - Family History Maternal Family History: Family History (Last Reviewed 03/20/18 @ 15:05 by Amanda Wilkinson) Mother Kidney disease Family History: Reports: Heart Disease, Renal Disease Paternal Family History: Family History (Last Reviewed 03/20/18 @ 15:05 by Amanda Wilkinson) Mother Kidney disease Family History: Reports: Heart Disease, - - Paternal family males w/ frequent hearing disorder. Additional Family History: Family history of hearing loss on the father's side in the mail. No history of [place] syndrome. Review of Systems General: Reports: Malaise. Denies: Chills, Fever, Sweats Eyes: Denies: Visual changes - bilaterally, Diplopia ENT: Denies: Rhinorrhea, Sore throat Cardiovascular: Denies: Chest pain, Palpitations Respiratory: Denies: Dyspnea, Cough, Dyspnea on exertion Gastrointestinal: Reports: Nausea, Vomiting. Denies: Abdominal pain, Diarrhea, Melena, Hematochezia Genitourinary: Denies: Dysuria, Hematuria, Frequency Musculoskeletal: Denies: Back pain, Extremity Pain Skin: Denies: Rash, Wounds Neurological: Denies: Headache, Weakness, Numbness Physical Exam Vital Signs/Narrative: Vital Signs BP 02/04/19 15:44 111/79 Inital Vital Signs reviewed: Yes General: Well nourished, Well developed, Acute Distress Head: Normocephalic, Atraumatic Eyes: Perrl, EOMI ENT: No rhinorrhea, Dry mucous membranes Neck: Supple, Nontender Cardiovascular: Regular rate, Regular rhythm, No murmurs Respiratory: No distress, CTA bilaterally, Chest nontender Abdomen: Soft, Nontender, Nondistended, Normal bowel sounds Back: Nontender, Normal Inspection Extremities: Nontender, No edema Skin: Normal color, No rash Neurological: Alert, Oriented x3, Cranial nerves II-XII grossly intact, Normal Strength, Normal Sensation Psychological: Normal affect, Normal Mood Diagnostic/Tx/Re-eval - Medical Decision Making His anion gap is elevated and he has ketones in the serum. He appears to be in DKA. Glucose is greater than 500. He was given IV fluids and started on insulin drip. He will be admitted to the ICU. 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
[2019-02-04] MEDS: 0.9% Normal Saline 1,000 ML 500 ML IV (17:10)
[2019-02-04 17:11] LABS: Bedside Glucose 479 mg/dL (70-110)
[2019-02-04] MEDS: 0.9% Normal Saline 1,000 ML 250 ML IV (17:58)
[2019-02-04 18:20] LABS: Anion Gap 15 (5-15); BUN 13 mg/dL (7-18); Calcium,Total 8.1 mg/dL (8.5-10.1); Chloride 110 mmol/L (98-107); Creatinine, Serum 1.08 mg/dL (0.70-1.30); EST Glomerular Filtration Rate 93 mL/min (>60); Est Glom Filt Rate - Afr Amer 112 mL/min (>60); Estimated Creatinine Clearance 96.76 ml/min; Glucose 412 mg/dL (74-106); Potassium 3.5 mmol/L (3.5-5.1); Sodium Level 143 mmol/L (136-145)
[2019-02-04] MEDS: Potassium Chloride 40 MEQ in Dext 5%-0.45% NS 1,000 ML 150 MEQ IV (20:27)
[2019-02-04 21:15] LABS: Bedside Glucose 247 mg/dL (70-110)
[2019-02-04 21:15] LABS: Bedside Glucose 295 mg/dL (70-110)
[2019-02-04 21:15] LABS: Bedside Glucose 208 mg/dL (70-110)
[2019-02-04 21:58] LABS: Anion Gap 8 (5-15); BUN 10 mg/dL (7-18); BUN/Creat Ratio 12.5 RATIO (10-20); Calcium,Total 7.9 mg/dL (8.5-10.1); Chloride 112 mmol/L (98-107); EST Glomerular Filtration Rate 130 mL/min (>60); Est Glom Filt Rate - Afr Amer 158 mL/min (>60); Estimated Creatinine Clearance 130.63 ml/min; Glucose 181 mg/dL (74-106); Potassium 3.5 mmol/L (3.5-5.1); Sodium Level 143 mmol/L (136-145)
[2019-02-05] VITALS (11 sets, daily range): BP systolic 90–111; BP diastolic 49–68; PULSE 64–99; RESP 17–250; TEMP 36.4–36.8; O2SAT 98–100
[2019-02-05 00:01] LABS: Bedside Glucose 167 mg/dL (70-110)
[2019-02-05 00:01] LABS: Bedside Glucose 176 mg/dL (70-110)
[2019-02-05 00:01] LABS: Bedside Glucose 163 mg/dL (70-110)
[2019-02-05 00:46] LABS: Bedside Glucose 175 mg/dL (70-110)
[2019-02-05 02:06] LABS: Bedside Glucose 147 mg/dL (70-110)
[2019-02-05 04:38] LABS: Absolute Lymphocyte Count 2.96 X10^3/uL (0.83-4.51); Absolute Neutrophil Count 2.5 X10^3/uL (2.0-7.7); Basophil# 0.03 X10^3/uL; Basophil% 0.5 % (0-1); Eosinophil# 0.67 X10^3/uL; Eosinophils% 10.1 % (0-5); Hematocrit 42.4 % (40-54); Hemoglobin 14.4 g/dL (13.0-16.5); Lymphocyte # 2.96 X10^3/ul (4.0); Lymphocyte % 44.5 % (19-41); Mean Corpuscular Hgb 31.2 pg (27.0-32.0); Mean Corpuscular Volume 91.8 fL (80-94); Mean Platelet Vol. 9.7 fl (6.2-12.0); Monocyte# 0.44 X10^3/uL; Monocyte% 6.6 % (0-10); NRBC Flagged by Analyzer 0 % (0-5); Neutrophil # 2.49 X10^3/uL (2.7-7.7); Neutrophil % 37.4 % (47-70); Platelet Count 212 K/mm3 (150-450); RBC Distribution Width CV 12.5 % (11.6-14.6); Red Blood Count 4.62 M/mm3 (4.6-6.2); White Blood Count 6.7 K/mm3 (4.4-11.0)
[2019-02-05 04:57] LABS: Anion Gap 9 (5-15); BUN 9 mg/dL (7-18); BUN/Creat Ratio 13.6 RATIO (10-20); Calcium,Total 8.1 mg/dL (8.5-10.1); Chloride 111 mmol/L (98-107); Creatinine, Serum 0.66 mg/dL (0.70-1.30); EST Glomerular Filtration Rate 163 mL/min (>60); Est Glom Filt Rate - Afr Amer 197 mL/min (>60); Estimated Creatinine Clearance 157.83 ml/min; Glucose 105 mg/dL (74-106); Potassium 3.5 mmol/L (3.5-5.1); Sodium Level 145 mmol/L (136-145)
[2019-02-05 05:31] LABS: Magnesium 1.8 mg/dL (1.6-2.6)
[2019-02-05 07:30] LABS: Bedside Glucose 92 mg/dL (70-110)
--- NOTE | 2019-02-05 08:07 | DCINST_ITS ---
- Discharge Diagnoses Current Active Problems: Current Active and Chronic Problems (Last Reviewed 03/20/18 @ 15:05 by Amanda Wilkinson) DKA (diabetic ketoacidoses) (Acute) Reason(s) for Visit for Discharge Instructions: DKA You will use the following diet at home:: Calorie/Carbohydrate Controlled (specify 1200, 1400, etc) Your food should be the consistency of: Regular Your liquids should be the consistency of: Regular/Thin Discharge Activity: Return to Normal Activity Additional Instructions: Continue to take all your insulins as prescribed. Follow-up with your primary care and summer law associate within 1 to 2 weeks. Continue to monitor your caloric intake Allergies/Adverse Reactions: Allergies No Known Allergies Allergy (Verified 02/04/19 11:42) Medications to take at Discharge Insulin Lispro [Humalog KwikPen] See Protocol SQ ACHS 08/21/18 Insulin Glargine,Hum.rec.anlog [Basaglar Kwikpen U-100] 40 unit SQ BIDAC #2 insuln.pen 10/27/18 Primary Care Physician: Scott Gomez MD [Primary Care Provider] - Please follow up with your Primary Care Physician in: within 1-2 weeks Test Results: Test results from this visit will be discussed in further detail at your follow- up appointment, if applicable. Proposed Discharge Date: 02/05/19
--- NOTE | 2019-02-05 08:11 | DS.PCM_ITS ---
Discharge Date and Diagnosis - Problem List Patient Problems: Active and Suspected Problems (Last Reviewed 03/20/18 @ 15:05 by Amanda Wilkinson) DKA (diabetic ketoacidoses) (Acute) Date of Admission: 02/04/19 Date of Discharge: 02/05/19 - Primary Discharge Diagnosis Active and Suspected Problems (Last Reviewed 03/20/18 @ 15:05 by Amanda Wilkinson) DKA (diabetic ketoacidoses) (Acute) - Secondary Discharge Diagnosis Chronic Problems (Last Reviewed 03/20/18 @ 15:05 by Amanda Wilkinson) Anxiety and depression (Chronic) GERD (gastroesophageal reflux disease) (Chronic) Fatty liver (Chronic) Suicidal ideations (Chronic) DM I (diabetes mellitus, type I), uncontrolled (Chronic) Hospital Course and Treatment [employer]ter Operations: None Procedures: None Summary of Care Provided: The patient is a 18 year old M with past medical history of type I DM who comes in with nausea and vomiting ongoing for 1 day prior to admission. Patient has history of recurrent DKA's and this time he says he was very compliant with his medication. He started having nausea and vomiting and proceeded to feel unwell 1 day prior to admission. He decided to come to the emergency department. His admitting blood sugars were elevated more than 500. Anion gap was elevated at 15. His bicarbonate was 18. Patient insisted that he has not missed any of his medications and has been compliant. He was admitted to the ICU and managed on insulin drip. His gap was closed. He was transitioned to his home insulin regimen. He continued to do well overnight and blood sugars well controlled in the morning with anion gap which was normal. Patient Problems: Active and Suspected Problems (Last Reviewed 03/20/18 @ 15:05 by Amanda Wilkinson) DKA (diabetic ketoacidoses) (Acute) Subjective: On the day of discharge, patient was seen and examined. Denied any new complaint. No acute events overnight. No dizziness or chest pain, or shortness of breath. - Physical Exam General: Alert, Oriented x3, Cooperative, No apparent distress HEENT: Atraumatic, PERRLA, EOMI, Normocephalic Oral: Moist Mucosa Neck: Supple Lungs: Clear to auscultation, Normal air movement Cardiovascular: Regular rate, Regular Rhythm, Normal S1, Normal S2, No murmurs Abdomen: Bowel Sounds Present, Soft, Non Tender, Non-Distended, No Hepato- splenomegaly Extremities: No edema Skin: No rashes, No breakdown Musculoskeletal: No Tenderness to Palpation of Joints or Extremities Lymphatic: No Cervical, Supraclavicular, or Inguinal Adenopathy Neurological: Cranial nerves II-XII grossly intact, Neuro grossly intact Psych/Mental Status: Normal Affect, Appropriate Vital Signs Temp Pulse Resp BP Pulse Ox 98.1 F 64 19 H 109/61 99 02/05/19 04:00 02/05/19 07:00 02/05/19 07:00 02/05/19 07:00 02/05/19 07:00 Oxygen Delivery Method Room Air Weight: 62.5 kg Body Mass Index (BMI) 20.9 Finger Stick Blood Glucose 146 Orthostatic Vital Signs Start: 02/04/19 16:58 Freq: q24h Status: Active Protocol: Activity Type Activity Date Activity User E-Sign Co-Sign Detail Recorded Client Recorded Date Recorded By Document 02/04/19 16:58 [facility] [id number] 02/04/19 17:03 [facility] 02/04/19 16:58 Orthostatic Vitals Standing -Blood Pressure (90/60-120/80) 108/60 -Extremity Use Left Arm -Pulse Rate (60-100) 94 Sitting -Blood Pressure (90/60-120/80) 114/74 -Extremity Use Left Arm -Pulse Rate (60-100) 75 Lying -Blood Pressure (90/60-120/80) 114/68 -Extremity Use Left Arm -Pulse Rate (60-100) 73 Intake and Output for Last 24 Hours 02/03/19 02/04/19 02/05/19 23:59 23:59 23:59 Intake Total 511 / 2044.2 1782.2 / 1782.2 Output Total 150 / 150 Balance 511 / 2044.2 1632.2 / 1632.2 Laboratory Tests Past 24 Hrs 02/04/19 02/04/19 02/04/19 11:52 11:52 11:52 WBC 7.1 RBC 5.43 Hgb 17.2 H Hct 49.0 MCV 90.2 MCH 31.7 MCHC 35.1 RDW Std Deviation 39.9 RDW Coeff of Richard 12.1 Plt Count 316 MPV 9.9 Immature Gran % (Auto) 1.500 H Neut % (Auto) 41.6 L Lymph % (Auto) 38.9 [place] % (Auto) 6.9 Eos % (Auto) 10.4 H Baso % (Auto) 0.7 Absolute Neuts (auto) 3.0 Absolute Lymphs (auto) 2.77 Absolute Nucleated RBC 0.00 Nucleated RBC % 0 Sodium 134 L Potassium 4.9 Chloride 100 Carbon Dioxide 19.0 L Anion Gap 15 BUN 10 Creatinine 1.16 Estim Creat Clear Calc 87.79 Est GFR (MDRD) Af Amer 103 Est GFR (MDRD) Non-Af 85 BUN/Creatinine Ratio 8.6 L Glucose 376 H Calcium 10.0 Phosphorus Magnesium Urine Color Urine Clarity Urine pH Ur Specific [place] Urine Protein Urine Glucose (UA) Urine Ketones Urine Occult Blood Urine Nitrite Urine Bilirubin Urine Urobilinogen Ur Leukocyte Esterase Urine RBC Urine WBC Ur Squamous Epith Cells Urine Bacteria Urine Mucus Acetone Level SMALL H 02/04/19 02/04/19 02/04/19 15:42 17:30 21:35 WBC RBC Hgb Hct MCV MCH MCHC RDW Std Deviation RDW Coeff of Richard Plt Count MPV Immature Gran % (Auto) Neut % (Auto) Lymph % (Auto) [place] % (Auto) Eos % (Auto) Baso % (Auto) Absolute Neuts (auto) Absolute Lymphs (auto) Absolute Nucleated RBC Nucleated RBC % Sodium 143 143 Potassium 3.5 3.5 Chloride 110 H 112 H Carbon Dioxide 18.0 L 23.0 Anion Gap 15 8 BUN 13 10 Creatinine 1.08 0.80 Estim Creat Clear Calc 96.76 130.63 Est GFR (MDRD) Af Amer 112 158 Est GFR (MDRD) Non-Af 93 130 BUN/Creatinine Ratio 12.0 12.5 Glucose 412 H 181 H Calcium 8.1 L 7.9 L Phosphorus Magnesium Urine Color Yellow Urine Clarity Clear Urine pH 6.5 Ur Specific [place] 1.010 Urine Protein Negative Urine Glucose (UA) 1000 H Urine Ketones 50 H Urine Occult Blood Negative Urine Nitrite Negative Urine Bilirubin Negative Urine Urobilinogen Normal Ur Leukocyte Esterase Negative Urine RBC 0 SEEN Urine WBC 0 SEEN Ur Squamous Epith Cells 0 SEEN Urine Bacteria 0 SEEN Urine Mucus 0 SEEN Acetone Level 02/05/19 02/05/19 04:15 04:15 WBC 6.7 RBC 4.62 Hgb 14.4 Hct 42.4 MCV 91.8 MCH 31.2 MCHC 34.0 RDW Std Deviation 42.0 RDW Coeff of Richard 12.5 Plt Count 212 MPV 9.7 Immature Gran % (Auto) 0.900 Neut % (Auto) 37.4 L Lymph % (Auto) 44.5 H [place] % (Auto) 6.6 Eos % (Auto) 10.1 H Baso % (Auto) 0.5 Absolute Neuts (auto) 2.5 Absolute Lymphs (auto) 2.96 Absolute Nucleated RBC 0.00 Nucleated RBC % 0 Sodium 145 Potassium 3.5 Chloride 111 H Carbon Dioxide 25.0 Anion Gap 9 BUN 9 Creatinine 0.66 L Estim Creat Clear Calc 157.83 Est GFR (MDRD) Af Amer 197 Est GFR (MDRD) Non-Af 163 BUN/Creatinine Ratio 13.6 Glucose 105 Calcium 8.1 L Phosphorus 3.0 Magnesium 1.8 Urine Color Urine Clarity Urine pH Ur Specific [place] Urine Protein Urine Glucose (UA) Urine Ketones Urine Occult Blood Urine Nitrite Urine Bilirubin Urine Urobilinogen Ur Leukocyte Esterase Urine RBC Urine WBC Ur Squamous Epith Cells Urine Bacteria Urine Mucus Acetone Level POC Glucose 02/05/19 02/05/19 02/05/19 07:27 00:57 00:01 POC Glucose 92 147 H 175 H 02/04/19 02/04/19 02/04/19 23:11 22:02 21:13 POC Glucose 163 H 176 H 167 H 02/04/19 02/04/19 02/04/19 19:52 19:02 18:02 POC Glucose 208 H 247 H 295 H 02/04/19 02/04/19 02/04/19 17:05 15:54 15:02 POC Glucose 479 H* > 500 H* > 500 H* 02/04/19 02/04/19 13:57 11:41 POC Glucose 495 H* 404 H Discharge Diet: 2000 Calorie Control Diet Discharge Activity: Return to Normal Activity Home Medications: Medications to take at Discharge Insulin Lispro [Humalog KwikPen] See Protocol SQ ACHS 08/21/18 Insulin Glargine,Hum.rec.anlog [Basaglar Kwikpen U-100] 40 unit SQ BIDAC #2 insuln.pen 10/27/18 Primary Care Physician: Scott Gomez MD [Primary Care Provider] - Please follow up with your Primary Care Physician in: within 1-2 weeks Disposition: Home Minutes spent on discharge:: 35 Patient Condition:: Stable Medical Necessity - Tobacco Use Smoking Status: Never smoker Tobacco Use: Non-smoker Meaningful Use Info Meaningful Use Diagnoses (Choose all that apply): None applicable Code Visit Inpatient E&M: 80257 Disch Hosp
== END 2019-02-05 09:00 | disposition home or self-care (01) ==
LOC: ED 14:33 → ICU 16:17
PROVIDERS: Emergency Medicine; Admitting Provider Internal Medicine; Emergency Provider Emergency Medicine; Family Provider Pediatrics; PCP Pediatrics; Visit Provider Internal Medicine
DX: E10.10 Type 1 diabetes mellitus with ketoacidosis without coma (principal); Z79.4 Long term (current) use of insulin; K21.9 Gastro-esophageal reflux disease without esophagitis; K76.0 Fatty (change of) liver, not elsewhere classified; F32.9 Major depressive disorder, single episode, unspecified; F41.9 Anxiety disorder, unspecified
CPT/HCPCS: 80048; 81001; 82009; 82962; 83735; 84100; 85025; 93005; 96361; 96365; 96366; 99218; 99284; J7030; A4216; G0378; J7799

== ENCOUNTER 2019-03-01 15:58 | Observation (INO) | payer MEDICAID, SELFPAY ==
[2019-02-04 17:00] VITALS: BMI 20.9
[2019-03-01] VITALS (14 sets, daily range): BP systolic 101–123; BP diastolic 58–80; PULSE 85–109; RESP 12–22; TEMP 36.4–36.8; O2SAT 98–100; BMI 19.3; BMI 19.9
[2019-03-01 16:15] LABS: Bedside Glucose > 500 mg/dL (70-110)
--- NOTE | 2019-03-01 16:20 | ED.DCSUM_ITS ---
- ER Visit Summary Date of Service: 03/01/19 Chief Complaint: Diarrhea and hyperglycemia History of Present Illness: The patient is a 18 M who presents with diarrhea and elevated blood sugars. Patient states she started with diarrhea approximately 5 days ago. Patient states the diarrhea has been watery. Patient states she took Imodium 2 days ago and his diarrhea has improved. Patient states that his blood sugars have been elevated patient admits to urinary frequency but denies any dysuria or hematuria. Patient denies any nausea or vomiting. Patient denies any abdominal pain. Patient states he has been having some chest pain. Patient states he recently traveled to [place]. Physical Examination: Vital signs are stable. Patient is afebrile. Patient is in no acute distress. Oral mucosa is pink and moist. Neck is supple. Trachea is midline. There is no JVD noted. Heart was regular rate and rhythm. Lungs are clear and equal bilateral. Abdomen is soft. Bowel sounds are normal. There is no tenderness. There is no guarding noted. Skin is warm dry. Cranial nerves II through XII are intact. There are no focal motor or sensory deficits noted. The remaining physical exam is within normal limits. Test Results: CBC was normal. Comprehensive metabolic profile showed an elevated glucose of 676. Anion gap was 22. CO2 was 13. Urine ketones were greater than 150. EKG shows sinus rhythm with a rate of 84. There is right atrial enlargement. There are no acute ST or T wave changes. This was unchanged compared to previous EKG dated 02/04/2019. Chest x-ray does not show any acute cardiopulmonary process. Emergency Department Course and Treatment: Patient was given IV fluids here. Patient was started on insulin drip. Case was discussed with Dr. Polk, hospitalist. She will admit the patient to the intensive care unit. Patient understood and was agreeable with the plan. All questions were answered. Disposition: Admit to hospital Impression: Diabetic ketoacidosis This note was generated with [employer] dictation software. It may contain incorrect words, spelling, and punctuation that were not noted in review of the chart prior to signing ED Disposition - Plan for ED Patient: Disposition: Acute Care Hospital [facility] Diagnosis: Diabetic ketoacidosis
[2019-03-01] MEDS: 0.9% Normal Saline 1,000 ML 1000 ML IV (16:31)
--- NOTE | 2019-03-01 16:40 | RAD_ITS ---
STUDY: X-RAY CHEST REASON FOR EXAM: Male, 18 years old. Diarrhea, abdominal pain, chills, high blood sugar, and chest pain TECHNIQUE: PA and lateral views of the chest. COMPARISON: Prior study of July 18, 2017 FINDINGS: cardiac monitor leads are present. The lungs are clear and expanded. There is no demonstrated pleural abnormality. Normal size heart. Normal mediastinum and amber. Normal visualized pulmonary arteries. Normal visualized aortic arch and descending thoracic aorta. Normal visualized thoracic spine. Normal visualized ribs, clavicles, and shoulders. There is no demonstrated abnormality of the visualized soft tissue structures of the upper abdomen. RAD/Chest PA and Lateral IMPRESSION: Normal x-ray examination of the chest. Electronically Signed: Hussein Encarnacion MD at 16:56 EDT , Service support ,
[2019-03-01 17:07] LABS: Absolute Lymphocyte Count 2.05 X10^3/uL (0.83-4.51); Absolute Neutrophil Count 5.4 X10^3/uL (2.0-7.7); Basophil# 0.07 X10^3/uL; Basophil% 0.9 % (0-1); Eosinophil# 0.15 X10^3/uL; Eosinophils% 1.8 % (0-5); Hematocrit 49.5 % (40-54); Hemoglobin 16.6 g/dL (13.0-16.5); Lymphocyte # 2.05 X10^3/ul (4.0); Mean Corp Hgb Conc 33.5 g/dL (32-36); Mean Corpuscular Hgb 31.1 pg (27.0-32.0); Mean Corpuscular Volume 92.9 fL (80-94); Mean Platelet Vol. 9.5 fl (6.2-12.0); Monocyte# 0.43 X10^3/uL; Monocyte% 5.2 % (0-10); NRBC Flagged by Analyzer 0 % (0-5); Neutrophil # 5.36 X10^3/uL (2.7-7.7); Neutrophil % 65.4 % (47-70); Platelet Count 342 K/mm3 (150-450); RBC Distribution Width CV 12.3 % (11.6-14.6); RBC Distribution Width SD 42.1 fl (35.1-43.9); Red Blood Count 5.33 M/mm3 (4.6-6.2); White Blood Count 8.2 K/mm3 (4.4-11.0)
[2019-03-01 17:10] LABS: ALB/GLOB Ratio 0.9 RATIO (0.9-2.4); AST(SGOT) 46 U/L (15-37); Alanine Aminotransfer ALT/SGPT 115 U/L (16-61); Albumin, Serum 3.7 g/dL (3.2-5.0); Alkaline Phosphatase 202 U/L (45-117); Anion Gap 22 (5-15); BUN 23 mg/dL (7-18); BUN/Creat Ratio 19.8 RATIO (10-20); Calcium,Total 9.6 mg/dL (8.5-10.1); Chloride 98 mmol/L (98-107); Creatinine, Serum 1.16 mg/dL (0.70-1.30); EST Glomerular Filtration Rate 85 mL/min (>60); Est Glom Filt Rate - Afr Amer 103 mL/min (>60); Glucose 676 mg/dL (74-106); Lipase 39 U/L (73-393); Potassium 3.8 mmol/L (3.5-5.1); Protein, Total 7.7 g/dL (6.4-8.2); Sodium Level 133 mmol/L (136-145)
--- NOTE | 2019-03-01 17:11 | ED.RN ---
LAB CALLS WITH CRITICAL RESULT, GLUCOSE OF 676, DR. HARRINGTON MADE AWARE.
[2019-03-01 17:32] LABS: Bacteria 0 SEEN /hpf (None Seen); Mucous, Urine 0 SEEN /hpf (<or=2+); Red Blood Cells-Urine 0 SEEN /hpf (0-5); Squamous Epithelial Cells - UA 0 SEEN /hpf (0-5); White Blood Cells 0 SEEN /hpf (0-5)
[2019-03-01 17:49] LABS: Color, Urine Yellow (Yellow); Glucose, Dipstick 1000 mg/dl (Normal); Leukocyte Esterase-Dipstick Negative /ul (Negative); Nitrite-Dipstick Negative (Negative); Occult Blood-Urine Negative /ul (Negative); Protein-Dipstick Negative (Negative); Specific Gravity, Urine 1.015 (1.002-1.030); Urine Bilirubin Dipstick Negative (Negative); Urine Clarity Clear (Clear); Urine Urobilinogen Normal (Normal)
[2019-03-01 17:56] LABS: Ketone-Dipstick 150 mg/dl (Negative)
--- NOTE | 2019-03-01 18:07 | HP.PCM_ITS ---
Problem List (1) DKA (diabetic ketoacidoses) Status: Acute Qualifiers: Diabetes mellitus type: type 1 Diabetes mellitus complication detail: without coma Qualified Code(s): E10.10 - Type 1 diabetes mellitus with ketoacidosis without coma (2) Anxiety and depression Status: Chronic (3) GERD (gastroesophageal reflux disease) Status: Chronic Qualifiers: Esophagitis presence: esophagitis presence not specified Qualified Code(s): K21.9 - Gastro-esophageal reflux disease without esophagitis (4) DM I (diabetes mellitus, type I), uncontrolled Status: Chronic Qualifiers: Glycemic state: with hyperglycemia History of Present Illness Date of Admission: 03/01/19 Chief Complaint: Diarrhea, abdominal pain, chills, hyperglycemia The patient is a 18 y/o M w/ PMHx: Diabetes mellitus type I w/ serial admissions for DKA, Prior Noted Elevated Liver Enzymes of unclear etiology following w/ [facility] GI, Anxiety and Depression w/ prior suicidal ideation admissions who presents to the [facility] ED on 03/01/19 with 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 Work-up in the ED included T 97.6, heart rate 109, BP 123/71, respiratory rate 17, 98% on room air, CBC with WC 8.2, hemoglobin 16.6, platelet 342 without market shift, CMP with sodium 133, carbon dioxide 13, anion gap 22, BUN 23, creatinine 1.16, glucose 676, AST 46, ALT 115, alk phos 202, troponin less than 0.015, lipase 39, UA with evidence of dehydration, ketones present, chest x-ray with no acute cardiopulmonary process. Acetone pending. In the ED patient initiated on insulin drip and aggressive hydration initiated. Past Medical History Past Medical History (Chronic Problems): Chronic Problems (Last Reviewed 03/20/18 @ 15:05 by Amanda Wilkinson) Anxiety and depression (Chronic) GERD (gastroesophageal reflux disease) (Chronic) Fatty liver (Chronic) Suicidal ideations (Chronic) DM I (diabetes mellitus, type I), uncontrolled (Chronic) Medical History: Medical History (Last Reviewed 03/20/18 @ 15:05 by Amanda Wilkinson) Anxiety disorder F41.9 Back problem M53.9 Bone fracture T14.8XXA Diabetes type 1, uncontrolled E10.65 Dx : age 2 Last exacerbation : DKA : 01/31 Hypoglycemic episode : never ER visit : 01/31 Hearing problem H91.90 Liver disease K76.9 Seizure R56.9 Vision problem H54.7 Allergies No Known Allergies Allergy (Verified 03/01/19 15:59) Home Medications: Ambulatory Orders Medication Instructions Recorded Insulin Lispro [Humalog KwikPen] See Protocol SQ ACHS 08/21/18 Benzonatate 100 mg PO Q4H PRN PRN 03/01/19 Insulin Glargine,Hum.rec.anlog 40 - 45 unit SQ BIDAC 03/01/19 [Basaglar Kwikpen U-100] Naproxen 500 mg PO BID 03/01/19 Surgical History: Surgical History (Last Reviewed 03/20/18 @ 15:05 by Amanda Wilkinson) S/p bilateral myringotomy with tube placement Z96.22 Surgical History: - - BL ear tubes. Psychiatric History: Anxiety, Depression, Prior suicide attempt Lives: With Family - Patient was with his grandmother. Smoking Status: Never smoker Tobacco Use: Non-smoker Alcohol: None Drugs: None - *Family History Maternal Family History: Family History (Last Reviewed 03/20/18 @ 15:05 by Amanda Wilkinson) Mother Kidney disease History Items: Heart Disease, Renal Disease Paternal Family History: Family History (Last Reviewed 03/20/18 @ 15:05 by Amanda Wilkinson) Mother Kidney disease History Items: Heart Disease, - - Paternal family males w/ frequent hearing disorder. Review of Systems Constitutional: Reports: Anorexia, Malaise, Weakness, Fatigue. Denies: Chills, Fever, Weight Change HEENT: Denies: Head Aches, Sinus Congestion, Sinus Drainage Cardiovascular: Denies: Chest Pain, Palpitations Respiratory: Denies: Cough, Shortness of breath at rest, Sputum production Gastrointestinal: Reports: Abdominal Pain, Diarrhea. Denies: Nausea, Vomiting Genitourinary: Denies: Dysuria Musculoskeletal: Reports: Muscle pain. Denies: Joint Pain, Joint Tenderness Skin: Reports: Skin Changes. Denies: Rash, Wounds Neurological: Denies: Numbness, Tingling, Focal weakness Psychiatric: Reports: Anxiety, Depression. Denies: Homicidal Ideations, Suicidal Ideations Hematologic/ Lymphatic: Denies: Easy Bruising, Easy Bleeding VTE Information - Inpt Only VTE Present on Admission: No VTE Mechan Device Prophylaxis: SCD's VTE Pharm Prophylaxis ordered?: Yes Subjective: Seated upright in the ED bed, fatigued appearance, no acute distress, notes still some abdominal cramping. Objective: Physical Examination: General: awake, alert, oriented x 3 and cooperative, seated upright in the ED bed, fatigued appearing. Skin: normal color, turgor, no icterus, cyanosis except noted resolving lower extremity sunburn from recent trip. HEENT: AT/NC, EOMI, PERRLA, dry MM, no carotid bruits or JVD noted. Lungs: CTA bilaterally, moderate effort, mild decrease BL bases, no rales, ronchi or wheezing. Heart: Mildly tachycardic with regular rhythm; no gallop, rub audible. Abdomen: soft, thin habitus, mild generalized discomfort with palpation, ND, currently normalized BS, no HSM. Extremities: no cyanosis, clubbing, or edema. Neurological: patient awake, alert, oriented x 3; cognitive function intact; pupils equally reactive to light and accomodation; cranial nerves II-XII grossly normal, moving all 4 extremities, no focal deficits, strength moderately global decrease secondary to acute presentation Psychiatric: affect appears fatigued, no acute evidence of depressive or anxiety feelings. - Physical Exam Vital Signs Temp Pulse Resp BP Pulse Ox 98.1 F 105 H 18 118/80 98 03/01/19 16:32 03/01/19 16:32 03/01/19 16:32 03/01/19 16:32 03/01/19 16:32 Oxygen Delivery Method Room Air Weight: 127 lb 3.307 oz Body Mass Index (BMI) 19.3 Finger Stick Blood Glucose 146 Laboratory Tests Past 24 Hrs 03/01/19 03/01/19 03/01/19 16:35 16:35 17:15 WBC 8.2 RBC 5.33 Hgb 16.6 H Hct 49.5 MCV 92.9 MCH 31.1 MCHC 33.5 RDW Std Deviation 42.1 RDW Coeff of Richard 12.3 Plt Count 342 MPV 9.5 Immature Gran % (Auto) 1.700 H Neut % (Auto) 65.4 Lymph % (Auto) 25.0 [place] % (Auto) 5.2 Eos % (Auto) 1.8 Baso % (Auto) 0.9 Absolute Neuts (auto) 5.4 Absolute Lymphs (auto) 2.05 Nucleated RBC % 0 Sodium 133 L Potassium 3.8 Chloride 98 Carbon Dioxide 13.0 L Anion Gap 22 H BUN 23 H Creatinine 1.16 Estim Creat Clear Calc 82.90 Est GFR (MDRD) Af Amer 103 Est GFR (MDRD) Non-Af 85 BUN/Creatinine Ratio 19.8 Glucose 676 H* Calcium 9.6 Total Bilirubin 0.90 AST 46 H ALT 115 H Alkaline Phosphatase 202 H Troponin I < 0.015 Total Protein 7.7 Albumin 3.7 Globulin 4.0 Albumin/Globulin Ratio 0.9 Lipase 39 L Urine Color Yellow Urine Clarity Clear Urine pH 5.0 Ur Specific [place] 1.015 Urine Protein Negative Urine Glucose (UA) 1000 H Urine Ketones 150 H Urine Occult Blood Negative Urine Nitrite Negative Urine Bilirubin Negative Urine Urobilinogen Normal Ur Leukocyte Esterase Negative Urine RBC 0 SEEN Urine WBC 0 SEEN Ur Squamous Epith Cells 0 SEEN Urine Bacteria 0 SEEN Urine Mucus 0 SEEN Acetone Level 03/01/19 18:00 WBC RBC Hgb Hct MCV MCH MCHC RDW Std Deviation RDW Coeff of [place] Plt Count MPV Immature Gran % (Auto) Neut % (Auto) Lymph % (Auto) [place] % (Auto) Eos % (Auto) Baso % (Auto) Absolute Neuts (auto) Absolute Lymphs (auto) Nucleated RBC % Sodium Potassium Chloride Carbon Dioxide Anion Gap BUN Creatinine Estim Creat Clear Calc Est GFR (MDRD) Af Amer Est GFR (MDRD) Non-Af BUN/Creatinine Ratio Glucose Calcium Total Bilirubin AST ALT Alkaline Phosphatase Troponin I Total Protein Albumin Globulin Albumin/Globulin Ratio Lipase Urine Color Urine Clarity Urine pH Ur Specific [place] Urine Protein Urine Glucose (UA) Urine Ketones Urine Occult Blood Urine Nitrite Urine Bilirubin Urine Urobilinogen Ur Leukocyte Esterase Urine RBC Urine WBC Ur Squamous Epith Cells Urine Bacteria Urine Mucus Acetone Level Pending POC Glucose 03/01/19 16:08 POC Glucose > 500 H* Assessment/Plan All Active Problems (Last Reviewed 03/20/18 @ 15:05 by Amanda Wilkinson) DKA, type 1 (Acute) DKA (diabetic ketoacidoses) (Acute) The patient is a 18 y/o M w/ PMHx: Diabetes mellitus type I w/ serial admissions for DKA, Prior Noted Elevated Liver Enzymes of unclear etiology following w/ [facility] GI, Anxiety and Depression w/ prior suicidal ideation admissions who presents to the [facility] ED on 03/01/19 with 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 (1) DKA w/ Diabetes mellitus type I: Patient started on an insulin drip in the ED. Will admit to the ICU per protocol, continue on insulin drip, check serial K+, glucose w/ IVF changes pending these levels, serial chemistry, obtain mag, phos daily w/ repletion as needed, transition to home SC regimen when gap closed w/ overlap on drip, nutrition consultation. Encouraged diet and insulin regimen compliance. (2) Suspected gastroenteritis: Given acute presentation #1 we will continue aggressive hydration, will obtain c diff, stool cx, O+P especially given recent exposures in [place] with repeat AM CBC. Will not start antibiotics at this time given unclear source pending stool studies as may be viral gastroenteritis. Anti-emetics, pain regimen PRN. (3) Hx Elevated Liver Enzymes: Admission CMP with AST 46, ALT 115, alk phos 202. Prior presentations with similar levels. 07/18/17 liver US obtained during DKA admission with elevated enzymes at that time with noted elongated appearance of the right hepatic lobe suggestive of a Isaias's lobe, enlarged liver, mild fatty infiltration. (4) Anxiety and Depression with prior suicide attempts: Following w/ Crisis center, prior admissions for suicidal ideations. Not on regimen per current list. Recommended continued outpatient evaluation per his therapist. (5) GERD: Protonix. (6) DVT Prophylaxis: SCDs, heparin. Code Visit Inpatient E&M: 12829 Init Hosp L3
--- NOTE | 2019-03-01 18:15 | NURSING ---
DR SEPULVEDA FOR ER DOC
[2019-03-01 18:31] LABS: Bedside Glucose 310 mg/dL (70-110)
[2019-03-01] MEDS: 0.9% Normal Saline 1,000 ML 150 ML IV (19:02)
[2019-03-01 19:11] LABS: Bedside Glucose 281 mg/dL (70-110)
[2019-03-01 19:54] LABS: Magnesium 2.3 mg/dL (1.6-2.6)
[2019-03-01 19:55] LABS: Anion Gap 14 (5-15); BUN 17 mg/dL (7-18); Calcium,Total 9.1 mg/dL (8.5-10.1); Chloride 108 mmol/L (98-107); Creatinine, Serum 1.13 mg/dL (0.70-1.30); EST Glomerular Filtration Rate 88 mL/min (>60); Est Glom Filt Rate - Afr Amer 106 mL/min (>60); Estimated Creatinine Clearance 87.61 ml/min; Glucose 264 mg/dL (74-106); Potassium 3.8 mmol/L (3.5-5.1); Sodium Level 138 mmol/L (136-145)
[2019-03-01] MEDS: Dext 5%-0.45% NS 1,000 ML 150 ML IV (20:00)
[2019-03-01 20:06] LABS: Bedside Glucose 201 mg/dL (70-110)
[2019-03-01] MEDS: Pantoprazole Sodium 20 MG Tablet PO (21:00)
[2019-03-01 21:01] LABS: Bedside Glucose 178 mg/dL (70-110)
--- NOTE | 2019-03-01 21:10 | NURSING ---
This nurse observed pt on the in room camera about to inject himself with a substance, at this time this RN went into the room and pt was giving himself his own insulin. Pt stated he gave himself 2 units of home novolog, and at this time was instructed again that he was still on the insulin gtt and we would give him all of his necessary medications. The home insulin was removed from the pts room and placed in the narcotic ammunition components inspector the ICU medication room. floor and wall applier liquid was notified.
[2019-03-01 22:01] LABS: Bedside Glucose 164 mg/dL (70-110)
[2019-03-01 23:06] LABS: Bedside Glucose 119 mg/dL (70-110)
[2019-03-01 23:28] LABS: Anion Gap 6 (5-15); BUN 14 mg/dL (7-18); Calcium,Total 8.5 mg/dL (8.5-10.1); Chloride 110 mmol/L (98-107); Creatinine, Serum 0.93 mg/dL (0.70-1.30); EST Glomerular Filtration Rate 110 mL/min (>60); Est Glom Filt Rate - Afr Amer 133 mL/min (>60); Estimated Creatinine Clearance 106.45 ml/min; Glucose 120 mg/dL (74-106); Potassium 3.1 mmol/L (3.5-5.1); Sodium Level 141 mmol/L (136-145)
[2019-03-01] MEDS: 0.9% NaCl Peripheral Flush Adult/Peds IV (23:51)
[2019-03-02] VITALS (9 sets, daily range): BP systolic 98–131; BP diastolic 53–66; PULSE 63–103; RESP 14–98; TEMP 36.3–36.7; O2SAT 20–99
[2019-03-02 00:36] LABS: Bedside Glucose 200 mg/dL (70-110)
[2019-03-02 04:03] LABS: Absolute Lymphocyte Count 3.13 X10^3/uL (0.83-4.51); Absolute Neutrophil Count 4.4 X10^3/uL (2.0-7.7); Basophil# 0.06 X10^3/uL; Basophil% 0.7 % (0-1); Eosinophil# 0.32 X10^3/uL; Eosinophils% 3.6 % (0-5); Hematocrit 39.1 % (40-54); Hemoglobin 13.9 g/dL (13.0-16.5); Lymphocyte # 3.13 X10^3/ul (4.0); Lymphocyte % 35.1 % (19-41); Mean Corp Hgb Conc 35.5 g/dL (32-36); Mean Corpuscular Hgb 31.6 pg (27.0-32.0); Mean Corpuscular Volume 88.9 fL (80-94); Mean Platelet Vol. 8.9 fl (6.2-12.0); Monocyte# 0.83 X10^3/uL; Monocyte% 9.3 % (0-10); NRBC Flagged by Analyzer 0 % (0-5); Neutrophil # 4.43 X10^3/uL (2.7-7.7); Neutrophil % 49.7 % (47-70); Platelet Count 299 K/mm3 (150-450); RBC Distribution Width CV 12.2 % (11.6-14.6); RBC Distribution Width SD 39.8 fl (35.1-43.9); White Blood Count 8.9 K/mm3 (4.4-11.0)
[2019-03-02 04:16] LABS: Anion Gap 7 (5-15); BUN 12 mg/dL (7-18); BUN/Creat Ratio 15.7 RATIO (10-20); Calcium,Total 8.1 mg/dL (8.5-10.1); Chloride 111 mmol/L (98-107); Creatinine, Serum 0.76 mg/dL (0.70-1.30); EST Glomerular Filtration Rate 138 mL/min (>60); Est Glom Filt Rate - Afr Amer 167 mL/min (>60); Estimated Creatinine Clearance 130.26 ml/min; Glucose 200 mg/dL (74-106); Potassium 4.1 mmol/L (3.5-5.1); Sodium Level 140 mmol/L (136-145)
--- NOTE | 2019-03-02 06:23 | CON.PCM_ITS ---
Reason for Consult Date of Consultation: 03/02/19 Reason for Consultation: DKA History of Present Illness: The patient is a 18-year-old male, with a history as outlined below, who presented to the emergency department on March 01 with complaints of hyperglycemia, increased urinary frequency and diarrhea. 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 Upon returning home, he developed a self-limited diarrheal illness, which per the patient's account, resolved approximately 3 days ago. He denied the presence of nausea or vomiting. His appetite was poor n.p.o. intake was suboptimal. This has since resolved. He reports compliance with his outpatient insulin regimen. The patient has a known history of type 1 diabetes mellitus with poor outpatient compliance and frequent hospital admissions for diabetic ketoacidosis. He was last admitted to the hospital last month for DKA. The patient's hemoglobin A1c in October was noted to be 12.5. On presentation to the emergency department, the patient was noted to be afebrile and hemodynamically stable. He was maintaining appropriate oxygen saturations on room air. Laboratory evaluation revealed no evidence of a leukocytosis. Initial chemistry profile revealed a bicarbonate of 13 with an elevated anion gap to 22. Glucose was elevated to 676. A moderate serum acetone level was noted. Urinalysis was largely unremarkable. The patient was treated with supplemental IV fluids and placed on a continuous insulin infusion. He was subsequently admitted to the medical intensive care unit for management of his diabetic ketoacidosis. Past Medical History Past Medical History (Chronic Problems): Chronic Problems (Last Reviewed 03/20/18 @ 15:05 by Amanda Wilkinson) Anxiety and depression (Chronic) GERD (gastroesophageal reflux disease) (Chronic) Fatty liver (Chronic) Suicidal ideations (Chronic) DM I (diabetes mellitus, type I), uncontrolled (Chronic) Medical History: Medical History (Last Reviewed 03/20/18 @ 15:05 by Amanda Wilkinson) Anxiety disorder F41.9 Back problem M53.9 Bone fracture T14.8XXA Diabetes type 1, uncontrolled E10.65 Dx : age 2 Last exacerbation : DKA : 01/31 Hypoglycemic episode : never ER visit : 01/31 Hearing problem H91.90 Liver disease K76.9 Seizure R56.9 Vision problem H54.7 Allergies No Known Allergies Allergy (Verified 03/01/19 15:59) Home Medications: Ambulatory Orders Medication Instructions Recorded Insulin Lispro [Humalog KwikPen] See Protocol SQ ACHS 08/21/18 Benzonatate 100 mg PO Q4H PRN PRN 03/01/19 Insulin Glargine,Hum.rec.anlog 40 - 45 unit SQ BIDAC 03/01/19 [Basaglar Kwikpen U-100] Naproxen 500 mg PO BID 03/01/19 Surgical History: Surgical History (Last Reviewed 03/20/18 @ 15:05 by Amanda Wilkinson) S/p bilateral myringotomy with tube placement Z96.22 Surgical History: - - BL ear tubes. Psychiatric History: Anxiety, Depression, Prior suicide attempt Lives: With Family - Patient was with his grandmother. Smoking Status: Never smoker Tobacco Use: Non-smoker Alcohol: None Drugs: None - *Family History Maternal Family History: Family History (Last Reviewed 03/20/18 @ 15:05 by Amanda Wilkinson) Mother Kidney disease History Items: Heart Disease, Renal Disease Paternal Family History: Family History (Last Reviewed 03/20/18 @ 15:05 by Amanda Wilkinson) Mother Kidney disease History Items: Heart Disease, - - Paternal family males w/ frequent hearing disorder. Review of Systems Constitutional: Denies: Chills, Fever, Weight Change Eyes: Denies: Blurred vision, Double vision HEENT: Denies: Head Aches, Sinus Congestion, Sinus Drainage Respiratory: Denies: Cough, Shortness of breath at rest, Sputum production Gastrointestinal: Reports: Diarrhea - Now resolved x 3 days. Denies: Abdominal Pain, Nausea, Vomiting Genitourinary: Reports: Frequency Musculoskeletal: Denies: Joint Pain, Joint Tenderness Skin: Denies: Rash, Wounds Neurological: Denies: Numbness, Tingling, Focal weakness Psychiatric: Denies: Anxiety, Depression, Homicidal Ideations, Suicidal Ideations Endocrine: Reports: Polyuria Hematologic/ Lymphatic: Denies: Easy Bruising, Easy Bleeding Patient Problems: Active and Suspected Problems (Last Reviewed 03/20/18 @ 15:05 by Amanda Wilkinson) Diabetic ketoacidosis (Acute) Objective: The patient's most recent lab work, culture data and imaging studies have all been personally reviewed. - Physical Exam General: Alert, Oriented x3, Cooperative, No apparent distress HEENT: Atraumatic, PERRLA, Normocephalic Oral: No Gingival or Mucosal Lesions/ Ulcerations Neck: Supple, No Nodes, Trachea Midline Lungs: Normal air movement, No rhonchi, No wheeze, No rales Cardiovascular: Regular rate, Regular Rhythm, Normal S1, Normal S2, No murmurs Abdomen: Bowel Sounds Present, Soft, Non Tender Extremities: No clubbing, No cyanosis, No edema Skin: No breakdown Musculoskeletal: No Tenderness to Palpation of Joints or Extremities Lymphatic: No Cervical, Supraclavicular, or Inguinal Adenopathy Neurological: Cranial nerves II-XII grossly intact, Neuro grossly intact Psych/Mental Status: Alert and oriented to time, place, person, mood and affect Vital Signs Temp Pulse Resp BP Pulse Ox 97.8 F 65 14 103/66 98 03/02/19 04:00 03/02/19 05:00 03/02/19 05:00 03/02/19 05:00 03/02/19 05:00 Oxygen Delivery Method Room Air Weight: 134 lb 7.712 oz Body Mass Index (BMI) 19.9 Finger Stick Blood Glucose 119 Intake and Output for Last 24 Hours 02/28/19 03/01/19 03/02/19 23:59 23:59 23:59 Intake Total 731.5 / 731.5 572.7 / 572.7 Balance 731.5 / 731.5 572.7 / 572.7 Laboratory Tests Past 24 Hrs 03/01/19 03/01/19 03/01/19 16:35 16:35 16:35 WBC 8.2 RBC 5.33 Hgb 16.6 H Hct 49.5 MCV 92.9 MCH 31.1 MCHC 33.5 RDW Std Deviation 42.1 RDW Coeff of Richard 12.3 Plt Count 342 MPV 9.5 Immature Gran % (Auto) 1.700 H Neut % (Auto) 65.4 Lymph % (Auto) 25.0 [place] % (Auto) 5.2 Eos % (Auto) 1.8 Baso % (Auto) 0.9 Absolute Neuts (auto) 5.4 Absolute Lymphs (auto) 2.05 Nucleated RBC % 0 Sodium 133 L Potassium 3.8 Chloride 98 Carbon Dioxide 13.0 L Anion Gap 22 H BUN 23 H Creatinine 1.16 Estim Creat Clear Calc 82.90 Est GFR (MDRD) Af Amer 103 Est GFR (MDRD) Non-Af 85 BUN/Creatinine Ratio 19.8 Glucose 676 H* Calcium 9.6 Phosphorus Magnesium 2.3 Total Bilirubin 0.90 AST 46 H ALT 115 H Alkaline Phosphatase 202 H Troponin I < 0.015 Total Protein 7.7 Albumin 3.7 Globulin 4.0 Albumin/Globulin Ratio 0.9 Lipase 39 L Urine Color Urine Clarity Urine pH Ur Specific [place] Urine Protein Urine Glucose (UA) Urine Ketones Urine Occult Blood Urine Nitrite Urine Bilirubin Urine Urobilinogen Ur Leukocyte Esterase Urine RBC Urine WBC Ur Squamous Epith Cells Urine Bacteria Urine Mucus Acetone Level 03/01/19 03/01/19 03/01/19 16:35 17:15 18:00 WBC RBC Hgb Hct MCV MCH MCHC RDW Std Deviation RDW Coeff of Richard Plt Count MPV Immature Gran % (Auto) Neut % (Auto) Lymph % (Auto) [place] % (Auto) Eos % (Auto) Baso % (Auto) Absolute Neuts (auto) Absolute Lymphs (auto) Nucleated RBC % Sodium Potassium Chloride Carbon Dioxide Anion Gap BUN Creatinine Estim Creat Clear Calc Est GFR (MDRD) Af Amer Est GFR (MDRD) Non-Af BUN/Creatinine Ratio Glucose Calcium Phosphorus 4.0 Magnesium Total Bilirubin AST ALT Alkaline Phosphatase Troponin I Total Protein Albumin Globulin Albumin/Globulin Ratio Lipase Urine Color Yellow Urine Clarity Clear Urine pH 5.0 Ur Specific [place] 1.015 Urine Protein Negative Urine Glucose (UA) 1000 H Urine Ketones 150 H Urine Occult Blood Negative Urine Nitrite Negative Urine Bilirubin Negative Urine Urobilinogen Normal Ur Leukocyte Esterase Negative Urine RBC 0 SEEN Urine WBC 0 SEEN Ur Squamous Epith Cells 0 SEEN Urine Bacteria 0 SEEN Urine Mucus 0 SEEN Acetone Level MODERATE H 03/01/19 03/01/19 03/02/19 19:00 22:57 03:55 WBC 8.9 RBC 4.40 L Hgb 13.9 Hct 39.1 L MCV 88.9 MCH 31.6 MCHC 35.5 RDW Std Deviation 39.8 RDW Coeff of Richard 12.2 Plt Count 299 MPV 8.9 Immature Gran % (Auto) 1.600 H Neut % (Auto) 49.7 Lymph % (Auto) 35.1 [place] % (Auto) 9.3 Eos % (Auto) 3.6 Baso % (Auto) 0.7 Absolute Neuts (auto) 4.4 Absolute Lymphs (auto) 3.13 Nucleated RBC % 0 Sodium 138 141 Potassium 3.8 3.1 L Chloride 108 H 110 H Carbon Dioxide 16.0 L 25.0 Anion Gap 14 6 BUN 17 14 Creatinine 1.13 0.93 Estim Creat Clear Calc 87.61 106.45 Est GFR (MDRD) Af Amer 106 133 Est GFR (MDRD) Non-Af 88 110 BUN/Creatinine Ratio 15.0 15.0 Glucose 264 H 120 H Calcium 9.1 8.5 Phosphorus Magnesium Total Bilirubin AST ALT Alkaline Phosphatase Troponin I Total Protein Albumin Globulin Albumin/Globulin Ratio Lipase Urine Color Urine Clarity Urine pH Ur Specific [place] Urine Protein Urine Glucose (UA) Urine Ketones Urine Occult Blood Urine Nitrite Urine Bilirubin Urine Urobilinogen Ur Leukocyte Esterase Urine RBC Urine WBC Ur Squamous Epith Cells Urine Bacteria Urine Mucus Acetone Level 03/02/19 03:55 WBC RBC Hgb Hct MCV MCH MCHC RDW Std Deviation RDW Coeff of Richard Plt Count MPV Immature Gran % (Auto) Neut % (Auto) Lymph % (Auto) [place] % (Auto) Eos % (Auto) Baso % (Auto) Absolute Neuts (auto) Absolute Lymphs (auto) Nucleated RBC % Sodium 140 Potassium 4.1 Chloride 111 H Carbon Dioxide 22.0 Anion Gap 7 BUN 12 Creatinine 0.76 Estim Creat Clear Calc 130.26 Est GFR (MDRD) Af Amer 167 Est GFR (MDRD) Non-Af 138 BUN/Creatinine Ratio 15.7 Glucose 200 H Calcium 8.1 L Phosphorus Magnesium Total Bilirubin AST ALT Alkaline Phosphatase Troponin I Total Protein Albumin Globulin Albumin/Globulin Ratio Lipase Urine Color Urine Clarity Urine pH Ur Specific [place] Urine Protein Urine Glucose (UA) Urine Ketones Urine Occult Blood Urine Nitrite Urine Bilirubin Urine Urobilinogen Ur Leukocyte Esterase Urine RBC Urine WBC Ur Squamous Epith Cells Urine Bacteria Urine Mucus Acetone Level POC Glucose 03/02/19 03/01/19 03/01/19 00:31 22:58 21:56 POC Glucose 200 H 119 H 164 H 03/01/19 03/01/19 03/01/19 20:57 19:53 18:49 POC Glucose 178 H 201 H 281 H 03/01/19 03/01/19 18:25 16:08 POC Glucose 310 H > 500 H* Clinical Impression(s) from Imaging Studies Chest X-Ray 03/01/19 16:40 IMPRESSION: Normal x-ray examination of the chest. Electronically Signed: Hussein Encarnacion MD at 16:56 EDT , Service support , Assessment/Plan Active and Suspected Problems (Last Reviewed 03/20/18 @ 15:05 by Amanda Wilkinson) Diabetic ketoacidosis (Acute) RECOMMENDATIONS: 1. Continue basal insulin and sliding scale coverage. 2. Discontinue stool studies, as the patient noted that his diarrhea resolved 3 days ago. 3. Encourage incentive spirometer use while in bed. Mobilize patient as tolerated. IMPRESSIONS: 1. Diabetic ketoacidosis The patient does have a long-standing history of outpatient noncompliance and a recent diarrheal illness, which was self-limited in nature. The patient was treated with aggressive IV fluid resuscitation and a continuous insulin infusion. Over the course of the night, the patient's diabetic ketoacidosis resolved. Anion gap has been closed. The patient's diet has been advanced accordingly. Supplemental IV fluids have been discontinued. Basal insulin regimen has been initiated along with sliding scale coverage. 2. Self-limited diarrheal illness, suspected viral gastroenteritis The patient reports that he has been without further episodes of diarrhea now x3 days. Will discontinue all stool studies accordingly. No further work-up is indicated at this time. 3. Anxiety/depression/GERD Complicates care, management, recovery and prognosis. Continue home medications as indicated. This note was generated with [employer]Hub[employer] software. It may contain incorrect words, spelling, and punctuation that were not noted in checking the note before signing. DISPOSITION: As the patient is without further ICU or pulmonary needs, will sign off. He is medically stable for transfer out of the intensive care unit. Code Visit Inpatient E&M: 49973 Init Hosp L2
--- NOTE | 2019-03-02 07:54 | DCINST_ITS ---
- Discharge Diagnoses Current Active Problems: Current Active and Chronic Problems (Last Reviewed 03/20/18 @ 15:05 by Amanda Wilkinson) Diabetic ketoacidosis (Acute) You will use the following diet at home:: Calorie/Carbohydrate Controlled (specify 1200, 1400, etc) - 1800 calories/day Your food should be the consistency of: Regular Your liquids should be the consistency of: Regular/Thin Discharge Activity: Return to Normal Activity Call your doctor if you observe: Fever of 101 or Higher, - - persistant high glucose, excessive thirst and urination. Instructions: Diabetes: Keeping Feet Healthy, Diabetes: Inspecting Your Feet, Diabetes: Shopping for and Preparing Meals, Diabetes: Caring for Your Body, Diabetes: Sick-Day Plan, Diabetes: Activity Tips, Diabetes: Understanding Carbohydrates, Fats, and Protein Allergies/Adverse Reactions: Allergies No Known Allergies Allergy (Verified 03/01/19 15:59) Medications to take at Discharge Insulin Lispro [Humalog KwikPen] See Protocol SQ ACHS 08/21/18 Benzonatate 100 mg PO Q4H PRN PRN 03/01/19 Insulin Glargine,Hum.rec.anlog [Basaglar Kwikpen U-100] 40 - 45 unit SQ BIDAC 03/01/19 Naproxen 500 mg PO BID 03/01/19 Primary Care Physician: Scott Gomez MD [Primary Care Provider] - Within 1 Week Test Results: Test results from this visit will be discussed in further detail at your follow- up appointment, if applicable. Proposed Discharge Date: 03/02/19
--- NOTE | 2019-03-02 07:56 | DS.PCM_ITS ---
Discharge Date and Diagnosis - Problem List Patient Problems: Active and Suspected Problems (Last Reviewed 03/20/18 @ 15:05 by Amanda Wilkinson) Diabetic ketoacidosis (Acute) Date of Admission: 03/01/19 Date of Discharge: 03/02/19 - Primary Discharge Diagnosis Active and Suspected Problems (Last Reviewed 03/20/18 @ 15:05 by Amanda Wilkinson) Diabetic ketoacidosis (Acute) - Secondary Discharge Diagnosis Chronic Problems (Last Reviewed 03/20/18 @ 15:05 by Amanda Wilkinson) Anxiety and depression (Chronic) GERD (gastroesophageal reflux disease) (Chronic) Fatty liver (Chronic) Suicidal ideations (Chronic) DM I (diabetes mellitus, type I), uncontrolled (Chronic) Hospital Course and Treatment Imaging Results: Clinical Impression(s) from Imaging Studies Chest X-Ray 03/01/19 16:40 IMPRESSION: Normal x-ray examination of the chest. Electronically Signed: Hussein Encarnacion MD at 16:56 EDT , Service support , Operations: None Procedures: None Summary of Care Provided: The patient is a 18 year old M's with hyperglycemia, urinary frequency and diarrhea. Patient was on a trip to the [facility] and then developed diarrhea thereafter. Presented with the above complaints despite having had his diarrhea resolved to 3 days prior and was diabetic ketoacidosis. Patient was on a insulin drip and subsequently improved and was advanced to diet and has been doing well subsequently. Patient states that he has been taking his insulin even while he was sick and did not miss doses. It is unclear if patient did miss dosings or not or if he reduced Medicare dosings as patient has previously stated that he had to cut back on his insulin because of concern for hyperglycemia in the past (please see my note from January 2018). Patient will be discharged and to continue with his current insulin regimen and follow-up with his primary care provider and to follow-up with endocrinology. [] Patient Problems: Active and Suspected Problems (Last Reviewed 03/20/18 @ 15:05 by Amanda Wilkinson) Diabetic ketoacidosis (Acute) - Physical Exam General: Alert, No apparent distress HEENT: Atraumatic, Normocephalic Oral: Moist Mucosa, No Gingival or Mucosal Lesions/ Ulcerations Psych/Mental Status: Normal Affect, Appropriate Vital Signs Temp Pulse Resp BP Pulse Ox 36.6 C 67 18 98/61 98 03/02/19 04:00 03/02/19 06:00 03/02/19 06:00 03/02/19 06:00 03/02/19 06:00 Oxygen Delivery Method Room Air Weight: 61 kg Body Mass Index (BMI) 19.9 Finger Stick Blood Glucose 119 Intake and Output for Last 24 Hours 02/28/19 03/01/19 03/02/19 23:59 23:59 23:59 Intake Total 731.5 / 731.5 572.7 / 572.7 Balance 731.5 / 731.5 572.7 / 572.7 Laboratory Tests Past 24 Hrs 03/01/19 03/01/19 03/01/19 16:35 16:35 16:35 WBC 8.2 RBC 5.33 Hgb 16.6 H Hct 49.5 MCV 92.9 MCH 31.1 MCHC 33.5 RDW Std Deviation 42.1 RDW Coeff of Richard 12.3 Plt Count 342 MPV 9.5 Immature Gran % (Auto) 1.700 H Neut % (Auto) 65.4 Lymph % (Auto) 25.0 [place] % (Auto) 5.2 Eos % (Auto) 1.8 Baso % (Auto) 0.9 Absolute Neuts (auto) 5.4 Absolute Lymphs (auto) 2.05 Nucleated RBC % 0 Sodium 133 L Potassium 3.8 Chloride 98 Carbon Dioxide 13.0 L Anion Gap 22 H BUN 23 H Creatinine 1.16 Estim Creat Clear Calc 82.90 Est GFR (MDRD) Af Amer 103 Est GFR (MDRD) Non-Af 85 BUN/Creatinine Ratio 19.8 Glucose 676 H* Calcium 9.6 Phosphorus Magnesium 2.3 Total Bilirubin 0.90 AST 46 H ALT 115 H Alkaline Phosphatase 202 H Troponin I < 0.015 Total Protein 7.7 Albumin 3.7 Globulin 4.0 Albumin/Globulin Ratio 0.9 Lipase 39 L Urine Color Urine Clarity Urine pH Ur Specific [place] Urine Protein Urine Glucose (UA) Urine Ketones Urine Occult Blood Urine Nitrite Urine Bilirubin Urine Urobilinogen Ur Leukocyte Esterase Urine RBC Urine WBC Ur Squamous Epith Cells Urine Bacteria Urine Mucus Acetone Level 03/01/19 03/01/19 03/01/19 16:35 17:15 18:00 WBC RBC Hgb Hct MCV MCH MCHC RDW Std Deviation RDW Coeff of Richard Plt Count MPV Immature Gran % (Auto) Neut % (Auto) Lymph % (Auto) [place] % (Auto) Eos % (Auto) Baso % (Auto) Absolute Neuts (auto) Absolute Lymphs (auto) Nucleated RBC % Sodium Potassium Chloride Carbon Dioxide Anion Gap BUN Creatinine Estim Creat Clear Calc Est GFR (MDRD) Af Amer Est GFR (MDRD) Non-Af BUN/Creatinine Ratio Glucose Calcium Phosphorus 4.0 Magnesium Total Bilirubin AST ALT Alkaline Phosphatase Troponin I Total Protein Albumin Globulin Albumin/Globulin Ratio Lipase Urine Color Yellow Urine Clarity Clear Urine pH 5.0 Ur Specific [place] 1.015 Urine Protein Negative Urine Glucose (UA) 1000 H Urine Ketones 150 H Urine Occult Blood Negative Urine Nitrite Negative Urine Bilirubin Negative Urine Urobilinogen Normal Ur Leukocyte Esterase Negative Urine RBC 0 SEEN Urine WBC 0 SEEN Ur Squamous Epith Cells 0 SEEN Urine Bacteria 0 SEEN Urine Mucus 0 SEEN Acetone Level MODERATE H 03/01/19 03/01/19 03/02/19 19:00 22:57 03:55 WBC 8.9 RBC 4.40 L Hgb 13.9 Hct 39.1 L MCV 88.9 MCH 31.6 MCHC 35.5 RDW Std Deviation 39.8 RDW Coeff of Richard 12.2 Plt Count 299 MPV 8.9 Immature Gran % (Auto) 1.600 H Neut % (Auto) 49.7 Lymph % (Auto) 35.1 [place] % (Auto) 9.3 Eos % (Auto) 3.6 Baso % (Auto) 0.7 Absolute Neuts (auto) 4.4 Absolute Lymphs (auto) 3.13 Nucleated RBC % 0 Sodium 138 141 Potassium 3.8 3.1 L Chloride 108 H 110 H Carbon Dioxide 16.0 L 25.0 Anion Gap 14 6 BUN 17 14 Creatinine 1.13 0.93 Estim Creat Clear Calc 87.61 106.45 Est GFR (MDRD) Af Amer 106 133 Est GFR (MDRD) Non-Af 88 110 BUN/Creatinine Ratio 15.0 15.0 Glucose 264 H 120 H Calcium 9.1 8.5 Phosphorus Magnesium Total Bilirubin AST ALT Alkaline Phosphatase Troponin I Total Protein Albumin Globulin Albumin/Globulin Ratio Lipase Urine Color Urine Clarity Urine pH Ur Specific [place] Urine Protein Urine Glucose (UA) Urine Ketones Urine Occult Blood Urine Nitrite Urine Bilirubin Urine Urobilinogen Ur Leukocyte Esterase Urine RBC Urine WBC Ur Squamous Epith Cells Urine Bacteria Urine Mucus Acetone Level 03/02/19 03:55 WBC RBC Hgb Hct MCV MCH MCHC RDW Std Deviation RDW Coeff of Richard Plt Count MPV Immature Gran % (Auto) Neut % (Auto) Lymph % (Auto) [place] % (Auto) Eos % (Auto) Baso % (Auto) Absolute Neuts (auto) Absolute Lymphs (auto) Nucleated RBC % Sodium 140 Potassium 4.1 Chloride 111 H Carbon Dioxide 22.0 Anion Gap 7 BUN 12 Creatinine 0.76 Estim Creat Clear Calc 130.26 Est GFR (MDRD) Af Amer 167 Est GFR (MDRD) Non-Af 138 BUN/Creatinine Ratio 15.7 Glucose 200 H Calcium 8.1 L Phosphorus Magnesium Total Bilirubin AST ALT Alkaline Phosphatase Troponin I Total Protein Albumin Globulin Albumin/Globulin Ratio Lipase Urine Color Urine Clarity Urine pH Ur Specific [place] Urine Protein Urine Glucose (UA) Urine Ketones Urine Occult Blood Urine Nitrite Urine Bilirubin Urine Urobilinogen Ur Leukocyte Esterase Urine RBC Urine WBC Ur Squamous Epith Cells Urine Bacteria Urine Mucus Acetone Level POC Glucose 03/02/19 03/01/19 03/01/19 00:31 22:58 21:56 POC Glucose 200 H 119 H 164 H 03/01/19 03/01/19 03/01/19 20:57 19:53 18:49 POC Glucose 178 H 201 H 281 H 03/01/19 03/01/19 18:25 16:08 POC Glucose 310 H > 500 H* Discharge Diet: 1800 Calorie Control Diet Discharge Activity: Return to Normal Activity Call your doctor if you observe: Fever of 101 or Higher, - - persistant high glucose, excessive thirst and urination. Home Medications: Medications to take at Discharge Insulin Lispro [Humalog KwikPen] See Protocol SQ ACHS 08/21/18 Benzonatate 100 mg PO Q4H PRN PRN 03/01/19 Insulin Glargine,Hum.rec.anlog [Basaglar Kwikpen U-100] 40 - 45 unit SQ BIDAC 03/01/19 Naproxen 500 mg PO BID 03/01/19 Primary Care Physician: Scott Gomez MD [Primary Care Provider] - Within 1 Week Patient Instructions: Diabetes: Keeping Feet Healthy, Diabetes: Inspecting Your Feet, Diabetes: Shopping for and Preparing Meals, Diabetes: Caring for Your Body, Diabetes: Sick-Day Plan, Diabetes: Activity Tips, Diabetes: Understanding Carbohydrates, Fats, and Protein Disposition: Home Minutes spent on discharge:: 24 Patient Condition:: Good Medical Necessity - Tobacco Use Smoking Status: Never smoker Tobacco Use: Non-smoker Meaningful Use Info Meaningful Use Diagnoses (Choose all that apply): None applicable Code Visit OBSV E&M: 62458 Observation care discharge
[2019-03-02 08:35] LABS: Bedside Glucose 472 mg/dL (70-110)
[2019-03-02] MEDS: Insulin Lispro 100 UNIT/ML INSULN.PEN 15 UNIT SC (08:40)
--- NOTE | 2019-03-02 09:17 | CASEMGMT ---
RN CM Assessment Presentation: DKA, DM1 Intro role of CM and purpose of RN CM assessment to patient. He is awake, alert and agreeable to assessment. Demographics, PCP and Pharmacy verified. Pt is known to this CM from previous visits. Pt states he participated in a mission trip to [place] recently and now has nausea, diarrhea and his blood sugars were not controlled. He states he saw his endocrinology [employer] yesterday. Per pt, when feeling well, his blood sugars were controlled. Plan is for dc today. Pt states no needs. PCP: Dr. Scott Gomez. Nurse attempted to make f/u appt. Office not open today. (Pt is [facility]) Specialists: Meena Trevizo NP Endocrinology, [facility] Medical Office Building [address] [place] [id number] PH: [phone] fax: [phone] [facility] Benefit: yes LNOK: GrandmotherBerna Living Arrangements: Continues to live with his grandmother. Pt states no concerns re: living arrangements, no use of DME Transportation: drives DME: Blood Glucose Monitoring equipment HHC: none Patient DC goals: Home DC PLAN: Home John SCHMITZ RN ACM
--- NOTE | 2019-03-04 15:13 | CASEMGMT ---
ROMANA CM DC PHONE CALL DC DATE: 03/02/19 DC Disposition: Home Diagnosis on Discharge: DKA LACE/STRATA: 06/19 Attempted call to phone. No answer and no machine with name identifier. John GARIBAYN RN ACM
== END 2019-03-02 09:26 | disposition home or self-care (01) ==
LOC: ED 16:18 → ICU 18:28
PROVIDERS: Admitting Provider Family Medicine; Emergency Provider Emergency Medicine; Family Provider Pediatrics; PCP Pediatrics; Referring Provider Family Medicine
DX: E10.10 Type 1 diabetes mellitus with ketoacidosis without coma (principal); Z79.4 Long term (current) use of insulin; K21.9 Gastro-esophageal reflux disease without esophagitis; K76.0 Fatty (change of) liver, not elsewhere classified
CPT/HCPCS: 71046; 80048; 80053; 81001; 82009; 82962; 83690; 83735; 84100; 84484; 85025; 93005; 96360; 96361; 96365; 96366; 99218; 99285; J7030; A4216; G0378; J7799

== ENCOUNTER 2019-04-22 07:58 | Inpatient (IN) | payer MEDICAID, SELFPAY ==
[2019-03-01 18:50] VITALS: BMI 19.9
[2019-04-22] VITALS (24 sets, daily range): BP systolic 86–129; BP diastolic 51–88; PULSE 70–120; RESP 16–30; TEMP 36.2–36.9; O2SAT 97–100; BMI 18.2; BMI 18.9; BMI 19.0
--- NOTE | 2019-04-22 08:14 | EKG12_ITS ---
Test Reason : GENERAL ILLNESS Blood Pressure : / mmHG Vent. Rate : 106 BPM Atrial Rate : 106 BPM P-R Int : 128 ms QRS Dur : 086 ms QT Int : 320 ms P-R-T Axes : 074 053 026 degrees QTc Int : 425 ms Sinus tachycardia Possible Right atrial enlargement Nonspecific T wave abnormality Abnormal ECG Confirmed by RONALD OLMEDO, JONATHAN ([id number]), copy editor KARLEE MCDANIEL ([id number]) on 04/24/2019 1:46:27 PM Referred By: NOAH Confirmed By:JONATHAN CARDENAS MD
--- NOTE | 2019-04-22 08:15 | RAD_ITS ---
STUDY: X-RAY CHEST REASON FOR EXAM: Male, 18 years old. Cough TECHNIQUE: Single AP portable view of the chest. COMPARISON: 03/01/2019 FINDINGS: The lungs are clear and expanded. There is no demonstrated pleural abnormality. Normal size heart. Normal mediastinum and amber. Normal visualized pulmonary arteries. Normal visualized aortic arch and descending thoracic aorta. Normal visualized thoracic spine. Normal visualized ribs, clavicles, and shoulders. There is no demonstrated abnormality of the visualized soft tissue structures of the upper abdomen. RAD/Chest 1 View (Portable) IMPRESSION: Normal x-ray examination of the chest. Electronically Signed: Rasheed Mabry DO at 9:04 EDT Tel , Service support ,
--- NOTE | 2019-04-22 08:16 | ED.VIS.GEN ---
History of Present Illness Chief Complaint: General Illness Informant: Patient Onset: Weeks - 4 Narrative: Patient is a 18-year-old male with a history of poorly controlled type 1 diabetes mellitus presenting with generalized weakness and sinus congestion. Patient states he has been feeling unwell and had a head cold for the past 4 weeks. He went to urgent care 2 weeks ago told that he likely has sinus infection but the treatment is symptomatic. Patient has been taking [id number]-[id number] cold/flu medication and decongestants. States his last dose was about 4 hours ago. Patient states he has had a mild associated sore throat, headache and cough. He has had runny nose that has been intermittently green. He denies any fever. This morning when he went up to use the restroom he states his legs were very weak and he felt weak all over. He had a hard time walking because of this. Patient also notes his blood sugars have been quite variable and higher than normal lately. Last night his blood sugar was around 350. States he is on sliding scale insulin for carb control. He does not know his last A1c was. Chart review shows that patient has had multiple admissions for DKA. Past Medical History - Allergies and Home Meds Allergies/Adverse Reactions: Allergies No Known Allergies Allergy (Verified 04/22/19 07:58) Primary Care Physician: Scott Gomez MD [Primary Care Provider] - Past Medical History: - - DM 1 Surgical History: - - BL ear tubes. Smoking Status: Never smoker - Family History Maternal Family History: Family History (Last Reviewed 03/20/18 @ 15:05 by Amanda Wilkinson) Mother Kidney disease Family History: Reports: Heart Disease, Renal Disease Paternal Family History: Family History (Last Reviewed 03/20/18 @ 15:05 by Amanda Wilkinson) Mother Kidney disease Family History: Reports: Heart Disease, - - Paternal family males w/ frequent hearing disorder. Additional Family History: Family history of hearing loss on the father's side in the mail. No history of [place] syndrome. Review of Systems All systems negative except as indicated General: Reports: Malaise ENT: Reports: Rhinorrhea, Sore throat, - - Nasal congestion, sinus pain Respiratory: Reports: Cough Musculoskeletal: Reports: Myalgias Neurological: Reports: Weakness - Generalized Physical Exam Vital Signs/Narrative: Vital Signs Temp Pulse Resp BP Pulse Ox 04/22/19 07:59 97.1 F L 120 H 30 H 121/76 H 100 Inital Vital Signs reviewed: Yes General: Well developed, Cachectic, No Acute Distress Head: Normocephalic, Atraumatic Eyes: Perrl, EOMI ENT: No rhinorrhea, TM's clear, Dry mucous membranes, Sinus tenderness Neck: Supple, Nontender Cardiovascular: Regular rhythm, No murmurs, Tachycardia Respiratory: CTA bilaterally, Chest nontender, - - Tachypnea Abdomen: Soft, Nondistended, Normal bowel sounds, Tender - Generalized, - - No Peritoneal signs Back: Nontender, Normal Inspection Extremities: Nontender, No edema Skin: Normal color, No rash Neurological: Alert, Oriented x3, Cranial nerves II-XII grossly intact, Normal Strength, Normal Sensation Psychological: Normal affect, Normal Mood Diagnostic/Tx/Re-eval Chest X-Ray - ED: 1 View, Read by ED Physician, No Acute Disease Laboratory Results - last 24 hr 04/22/19 04/22/19 04/22/19 08:30 08:30 08:30 WBC 7.6 RBC 5.24 Hgb 16.6 H Hct 51.7 MCV 98.7 H MCH 31.7 MCHC 32.1 RDW Std Deviation 48.8 H RDW Coeff of Richard 13.4 Plt Count 374 MPV 8.9 Immature Gran % (Auto) 4.400 H Neut % (Auto) 49.4 Lymph % (Auto) 35.6 [place] % (Auto) 6.3 Eos % (Auto) 2.6 Baso % (Auto) 1.7 H Absolute Neuts (auto) 3.7 Absolute Lymphs (auto) 2.70 Nucleated RBC % 0 Specimen Type Sample Site VBG pH VBG pO2 VBG O2 Sat (Calc) VBG O2 Content VBG Base Excess POC Mix VBG pCO2 Pt Tmp O2 Delivery Device Blood Gas Notified Whom Blood Gas Notified Time Sodium 132 L Potassium 4.7 Chloride 94 L Carbon Dioxide 9.0 L* Anion Gap 29 H BUN 18 Creatinine 1.26 Estim Creat Clear Calc 72.00 Est GFR (MDRD) Af Amer 94 Est GFR (MDRD) Non-Af 77 BUN/Creatinine Ratio 14.3 Glucose 743 H* Calcium 9.4 Urine Color Urine Clarity Urine pH Ur Specific [place] Urine Protein Urine Glucose (UA) Urine Ketones Urine Occult Blood Urine Nitrite Urine Bilirubin Urine Urobilinogen Ur Leukocyte Esterase Urine RBC Urine WBC Ur Squamous Epith Cells Urine Bacteria Urine Mucus Urine Yeast Acetone Level LARGE H 04/22/19 04/22/19 08:40 08:41 WBC RBC Hgb Hct MCV MCH MCHC RDW Std Deviation RDW Coeff of Richard Plt Count MPV Immature Gran % (Auto) Neut % (Auto) Lymph % (Auto) [place] % (Auto) Eos % (Auto) Baso % (Auto) Absolute Neuts (auto) Absolute Lymphs (auto) Nucleated RBC % Specimen Type CORRIE Sample Site L Brachial VBG pH 7.12 L* VBG pO2 47 H VBG O2 Sat (Calc) 69 VBG O2 Content 9 L VBG Base Excess -21 L POC Mix VBG pCO2 Pt Tmp 24.4 L O2 Delivery Device Room Air Blood Gas Notified Whom ED MD Blood Gas Notified Time 830 Sodium Potassium Chloride Carbon Dioxide Anion Gap BUN Creatinine Estim Creat Clear Calc Est GFR (MDRD) Af Amer Est GFR (MDRD) Non-Af BUN/Creatinine Ratio Glucose Calcium Urine Color Straw Urine Clarity Clear Urine pH 5.0 Ur Specific [place] 1.020 Urine Protein 30 H Urine Glucose (UA) 1000 H Urine Ketones 150 H Urine Occult Blood Negative Urine Nitrite Negative Urine Bilirubin Negative Urine Urobilinogen Normal Ur Leukocyte Esterase Negative Urine RBC 0 SEEN Urine WBC 0 SEEN Ur Squamous Epith Cells 0 SEEN Urine Bacteria RARE Urine Mucus 0 SEEN Urine Yeast RARE Acetone Level - Rhythm Strip Rhythm Strip: Sinus Tach Rate: 106 Ectopy: None - EKG Initial EKG Interpretation: Sinus Tachycardia, - - Prominent P waves Sinus tachycardia at a rate of 106 MA interval 128 QRS 86 QT/QTc 320/[address] segments, nonspecific T wave inversion in leads II and III - Medical Decision Making Patient is evaluated for generalized fatigue, malaise and concern for sinus infection. His initial vital signs are significant for tachycardia and tachypneic. Patient has quick respirations concerning for clue small respirations. He is ultimately found to be in DKA with a metabolic acidosis, elevated anion gap and significantly elevated glucose. Patient is given 2 L of normal saline in the ER and then started on LR with KCl at 125 cc an hour. He started on insulin drip at 5.4 units an hour, weight-based dosing. Patient will be admitted to the ICU. Discussed the case with Dr. Solitario, medicine on-call. He is agreeable with this plan. I did application counselor the patient that with his type 1 diabetes he needs to work to get better under control as the patient has had multiple admissions for DKA at such young age. Patient is counseled this will increase his risk of neuropathy, retinopathy/blindness and end-stage renal disease. He does verbalize agreement with this. Patient is stable and mentating well at time of disposition. - Critical Care Time Critical care time (excluding procedures): 30-74 minutes, Discussing w/Patient &/or Family/Cosmetic Account Coordinator, Discussing w/Consultants, Arranging Admission or Transfer ED Disposition - Plan for ED Patient: Disposition: Acute Care Hospital [facility] Diagnosis: DKA (diabetic ketoacidoses) Referrals: Scott Gomez MD [Primary Care Provider] -
[2019-04-22] MEDS: 0.9% Normal Saline 1,000 ML 999 ML IV ×2 (08:37→09:58)
[2019-04-22 08:40] LABS: Absolute Neutrophil Count 3.7 X10^3/uL (2.0-7.7); Basophil# 0.13 X10^3/uL; Basophil% 1.7 % (0-1); Eosinophils% 2.6 % (0-5); Hematocrit 51.7 % (40-54); Hemoglobin 16.6 g/dL (13.0-16.5); Lymphocyte % 35.6 % (19-41); Mean Corp Hgb Conc 32.1 g/dL (32-36); Mean Corpuscular Hgb 31.7 pg (27.0-32.0); Mean Corpuscular Volume 98.7 fL (80-94); Mean Platelet Vol. 8.9 fl (6.2-12.0); Monocyte# 0.48 X10^3/uL; Monocyte% 6.3 % (0-10); NRBC Flagged by Analyzer 0 % (0-5); Neutrophil # 3.74 X10^3/uL (2.7-7.7); Neutrophil % 49.4 % (47-70); Platelet Count 374 K/mm3 (150-450); RBC Distribution Width CV 13.4 % (11.6-14.6); RBC Distribution Width SD 48.8 fl (35.1-43.9); Red Blood Count 5.24 M/mm3 (4.6-6.2); White Blood Count 7.6 K/mm3 (4.4-11.0)
[2019-04-22 08:45] LABS: Mucous, Urine 0 SEEN /hpf (<or=2+); Red Blood Cells-Urine 0 SEEN /hpf (0-5); Squamous Epithelial Cells - UA 0 SEEN /hpf (0-5); White Blood Cells 0 SEEN /hpf (0-5)
[2019-04-22 08:46] LABS: Color, Urine Straw (Yellow); Glucose, Dipstick 1000 mg/dl (Normal); Leukocyte Esterase-Dipstick Negative /ul (Negative); Nitrite-Dipstick Negative (Negative); Occult Blood-Urine Negative /ul (Negative); Protein-Dipstick 30 mg/dl (Negative); Urine Bilirubin Dipstick Negative (Negative); Urine Clarity Clear (Clear); Urine Urobilinogen Normal (Normal)
[2019-04-22 08:46] LABS: Blood Gas Specimen Type VEN; O2 Delivery Device Room Air; SITE L Brachial; Time Given 830; VBG BASE EXCESS -21 mmol/L (-1.0-3.5); VBG Bicarbonate 8 mmol/L (22-26); VBG Oxygen Content 9 mmol/L (23-33); VBG PO2 47 mmHg (25-40); VBG SO2 69 % (50-70); VBG pCO2 24.4 mmHg (41-51); VBG pH 7.12 (7.32-7.42)
[2019-04-22 08:51] LABS: Ketone-Dipstick 150 mg/dl (Negative)
[2019-04-22 08:52] LABS: Bacteria RARE /hpf (None Seen); Yeast-Urine RARE /hpf (None Seen)
--- NOTE | 2019-04-22 09:11 | ED.RN ---
glucosse 743 co2 9 called from the lab . dr barrera aware
[2019-04-22 09:12] LABS: Anion Gap 29 (5-15); BUN 18 mg/dL (7-18); BUN/Creat Ratio 14.3 RATIO (10-20); Calcium,Total 9.4 mg/dL (8.5-10.1); Chloride 94 mmol/L (98-107); Creatinine, Serum 1.26 mg/dL (0.70-1.30); EST Glomerular Filtration Rate 77 mL/min (>60); Est Glom Filt Rate - Afr Amer 94 mL/min (>60); Glucose 743 mg/dL (74-106); Potassium 4.7 mmol/L (3.5-5.1); Sodium Level 132 mmol/L (136-145)
[2019-04-22] MEDS: Dextrose 50%-Water 25 GM/50 ML DISP.SYRIN IV (10:00)
--- NOTE | 2019-04-22 10:34 | PCM.HP.STD ---
Problem List (1) Anxiety and depression Status: Chronic (2) Diabetic ketoacidosis Status: Acute (3) GERD (gastroesophageal reflux disease) Status: Chronic Qualifiers: Esophagitis presence: esophagitis presence not specified Qualified Code(s): K21.9 - Gastro-esophageal reflux disease without esophagitis (4) DKA, type 1 Status: Acute Qualifiers: Diabetes mellitus complication detail: without coma Qualified Code(s): E10.10 - Type 1 diabetes mellitus with ketoacidosis without coma (5) Fatty liver Status: Chronic (6) Suicidal ideations Status: Chronic (7) DKA (diabetic ketoacidoses) Status: Acute Qualifiers: Diabetes mellitus type: type 1 Diabetes mellitus complication detail: without coma Qualified Code(s): E10.10 - Type 1 diabetes mellitus with ketoacidosis without coma History of Present Illness Date of Admission: 04/22/19 Chief Complaint: Generalized Weakness The patient is a 18 year old male with past medical history single for diabetes mellitus type 1 who presented with generalized weakness. Patient states his symptoms started with sinusitis for which he self treated with [id number] medications. His condition however did not improve. He did notice increasing generalized weakness and lightheadedness. He apparently passed out on the day of his admission. His blood glucose was also markedly elevated. Patient presented to the emergency room eventually where an assessment of diabetic ketoacidosis was made treatment initiated in the ED with IV fluids and insulin and admitted to the intensive care unit for further management. On further questioning patient denied any fever no chills. He had nausea but no diarrhea. Past Medical History Past Medical History (Chronic Problems): Chronic Problems (Last Reviewed 04/22/19 @ 11:28 by Pranay Solitario MD) Anxiety and depression (Chronic) GERD (gastroesophageal reflux disease) (Chronic) Fatty liver (Chronic) Suicidal ideations (Chronic) DM I (diabetes mellitus, type I), uncontrolled (Chronic) Medical History: Medical History (Last Reviewed 04/22/19 @ 11:28 by Pranay Solitario MD) Anxiety disorder F41.9 Back problem M53.9 Bone fracture T14.8XXA Diabetes type 1, uncontrolled E10.65 Dx : age 2 Last exacerbation : DKA : 01/31 Hypoglycemic episode : never ER visit : 01/31 Hearing problem H91.90 Liver disease K76.9 Seizure R56.9 Vision problem H54.7 Allergies No Known Allergies Allergy (Verified 04/22/19 07:58) Home Medications: Ambulatory Orders Medication Instructions Recorded Insulin Lispro [Humalog KwikPen] See Protocol SQ ACHS 08/21/18 Benzonatate 100 mg PO Q4H PRN PRN 03/01/19 Insulin Glargine,Hum.rec.anlog 40 - 45 unit SQ BIDAC 03/01/19 [Basaglar Kwikpen U-100] Surgical History: Surgical History (Last Reviewed 04/22/19 @ 11:28 by Pranay Solitario MD) S/p bilateral myringotomy with tube placement Z96.22 Surgical History: - - BL ear tubes. Psychiatric History: Anxiety, Depression, Prior suicide attempt Smoking Status: Never smoker Tobacco Use: Non-smoker - *Family History Maternal Family History: Family History (Last Reviewed 04/22/19 @ 11:28 by Pranay Solitario MD) Mother Kidney disease History Items: Heart Disease, Renal Disease Paternal Family History: Family History (Last Reviewed 04/22/19 @ 11:28 by Pranay Solitario MD) Mother Kidney disease History Items: Heart Disease, - - Paternal family males w/ frequent hearing disorder. Review of Systems Constitutional: Reports: Anorexia, Malaise, Weakness, Fatigue HEENT: Denies: Head Aches, Sinus Congestion, Sinus Drainage Cardiovascular: Denies: Chest Pain, Orthopnea, Palpitations, Paroxysmal Noc. Dyspnea Respiratory: Denies: Cough, Shortness of breath at rest, Shortness of breath upon exertion, Sputum production Gastrointestinal: Reports: Nausea. Denies: Diarrhea Genitourinary: Denies: Dysuria, Frequency, Hematuria, Urgency Musculoskeletal: Denies: Joint Pain, Joint Tenderness Skin: Reports: Dryness. Denies: Rash Neurological: Denies: Focal weakness, Numbness, Tingling Psychiatric: Denies: Homicidal Ideations, Suicidal Ideations VTE Information - Inpt Only VTE Present on Admission: No VTE Mechan Device Prophylaxis: None VTE Pharm Prophylaxis ordered?: Yes Patient Problems: Active and Suspected Problems (Last Reviewed 04/22/19 @ 11:28 by Pranay Solitario MD) Diabetic ketoacidosis (Acute) Objective: GENERAL: Ill-looking HEENT: Atraumatic; dry oral mucosa EYES; Anicteric, Normal Conjunctiva NECK; supple, normal thyroid, RESPIRATORY: Diminished to auscultation CARDIOVASCULAR: Regular S1 S2, n GI: soft, non-tender, normoactive bowel sounds, : No Renal angle tenderness; EXTREMITIES: No edema, no clubbing, MUSCULOSKELETAL: muscle waisting NEURO: Awake; no lateralizing signs. SKIN: No Rash PSYCH; Normal affect - Physical Exam Vital Signs Temp Pulse Resp BP Pulse Ox 97.1 F L 112 H 20 H 117/78 97 04/22/19 07:59 04/22/19 09:24 04/22/19 09:24 04/22/19 09:24 04/22/19 09:24 Oxygen Delivery Method Room Air Weight: 54.431 kg Body Mass Index (BMI) 18.2 Finger Stick Blood Glucose 119 Intake and Output for Last 24 Hours 04/20/19 04/21/19 04/22/19 23:59 23:59 23:59 Intake Total 1000 / 1000 Balance 1000 / 1000 Laboratory Tests Past 24 Hrs 04/22/19 04/22/19 04/22/19 08:30 08:30 08:30 WBC 7.6 RBC 5.24 Hgb 16.6 H Hct 51.7 MCV 98.7 H MCH 31.7 MCHC 32.1 RDW Std Deviation 48.8 H RDW Coeff of Richard 13.4 Plt Count 374 MPV 8.9 Immature Gran % (Auto) 4.400 H Neut % (Auto) 49.4 Lymph % (Auto) 35.6 [place] % (Auto) 6.3 Eos % (Auto) 2.6 Baso % (Auto) 1.7 H Absolute Neuts (auto) 3.7 Absolute Lymphs (auto) 2.70 Nucleated RBC % 0 Specimen Type Sample Site VBG pH VBG pO2 VBG O2 Sat (Calc) VBG O2 Content VBG Base Excess POC Mix VBG pCO2 Pt Tmp O2 Delivery Device Blood Gas Notified Whom Blood Gas Notified Time Sodium 132 L Potassium 4.7 Chloride 94 L Carbon Dioxide 9.0 L* Anion Gap 29 H BUN 18 Creatinine 1.26 Estim Creat Clear Calc 72.00 Est GFR (MDRD) Af Amer 94 Est GFR (MDRD) Non-Af 77 BUN/Creatinine Ratio 14.3 Glucose 743 H* Calcium 9.4 Urine Color Urine Clarity Urine pH Ur Specific [place] Urine Protein Urine Glucose (UA) Urine Ketones Urine Occult Blood Urine Nitrite Urine Bilirubin Urine Urobilinogen Ur Leukocyte Esterase Urine RBC Urine WBC Ur Squamous Epith Cells Urine Bacteria Urine Mucus Urine Yeast Acetone Level LARGE H 04/22/19 04/22/19 08:40 08:41 WBC RBC Hgb Hct MCV MCH MCHC RDW Std Deviation RDW Coeff of Richard Plt Count MPV Immature Gran % (Auto) Neut % (Auto) Lymph % (Auto) [place] % (Auto) Eos % (Auto) Baso % (Auto) Absolute Neuts (auto) Absolute Lymphs (auto) Nucleated RBC % Specimen Type CORRIE Sample Site L Brachial VBG pH 7.12 L* VBG pO2 47 H VBG O2 Sat (Calc) 69 VBG O2 Content 9 L VBG Base Excess -21 L POC Mix VBG pCO2 Pt Tmp 24.4 L O2 Delivery Device Room Air Blood Gas Notified Whom ED Blood Gas Notified Time 830 Sodium Potassium Chloride Carbon Dioxide Anion Gap BUN Creatinine Estim Creat Clear Calc Est GFR (MDRD) Af Amer Est GFR (MDRD) Non-Af BUN/Creatinine Ratio Glucose Calcium Urine Color Straw Urine Clarity Clear Urine pH 5.0 Ur Specific [place] 1.020 Urine Protein 30 H Urine Glucose (UA) 1000 H Urine Ketones 150 H Urine Occult Blood Negative Urine Nitrite Negative Urine Bilirubin Negative Urine Urobilinogen Normal Ur Leukocyte Esterase Negative Urine RBC 0 SEEN Urine WBC 0 SEEN Ur Squamous Epith Cells 0 SEEN Urine Bacteria RARE Urine Mucus 0 SEEN Urine Yeast RARE Acetone Level Assessment/Plan All Active Problems (Last Reviewed 04/22/19 @ 11:28 by Pranay Solitario MD) Diabetic ketoacidosis (Acute) DKA, type 1 (Acute) DKA (diabetic ketoacidoses) (Acute) Patient is an 18 -year-old gentleman with past medical history significant for diabetes mellitus type 1 presented with elevated blood glucose associated with nausea and progressive weakness assessment of diabetic ketoacidosis made and admission admitted to the intensive care unit for further management 1. Diabetic ketoacidosis ~ admitted to the intensive care unit managed with aggressive IV fluid resuscitation and IV insulin with correction of electrolyte abnormalities consult was placed health services rn. 2. GERD ~ Was previously on PPI currently asymptomatic 3. DVT prophylaxis ~ SC Lovenox Code Visit Inpatient E&M: 44473 Init Hosp L2
[2019-04-22 11:00] LABS: Bedside Glucose > 500 mg/dL (70-110)
[2019-04-22] MEDS: 0.9% Normal Saline 1,000 ML 500 ML IV (11:41)
[2019-04-22 11:49] LABS: Anion Gap 27 (5-15); BUN 16 mg/dL (7-18); BUN/Creat Ratio 11.6 RATIO (10-20); Calcium,Total 8.8 mg/dL (8.5-10.1); Chloride 102 mmol/L (98-107); Creatinine, Serum 1.38 mg/dL (0.70-1.30); EST Glomerular Filtration Rate 70 mL/min (>60); Est Glom Filt Rate - Afr Amer 84 mL/min (>60); Estimated Creatinine Clearance 68.36 ml/min; Glucose 625 mg/dL (74-106); Magnesium 2.4 mg/dL (1.6-2.6); Potassium 4.7 mmol/L (3.5-5.1); Sodium Level 135 mmol/L (136-145)
[2019-04-22 12:55] LABS: Bedside Glucose 307 mg/dL (70-110)
--- NOTE | 2019-04-22 12:59 | PCM.CON.CC ---
Reason for Consult Date of Consultation: 04/22/19 Reason for Consultation: Diabetic ketoacidosis History of Present Illness: The patient is a 18-year-old male, with a history as outlined below, who presented to the emergency department on April 22 with complaints of URI symptoms, including nasal/sinus congestion and rhinorrhea of 1 to 2 weeks duration. He does report that he was recently exposed to his grandma who had similar symptoms. The patient has known type 1 diabetes with a history of frequent admissions to the hospital for diabetic ketoacidosis. He was last admitted to the hospital in February 2019. The patient was last known to have a hemoglobin A1c of 12.5 in October 2018. 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 On presentation to the emergency department, the patient was noted to be afebrile, tachycardic and tachypneic. Laboratory evaluation revealed no evidence of a leukocytosis. Chemistry profile was notable for a sodium of 135, bicarbonate of 6.0, anion gap of 27 and creatinine of 1.38. Initial glucose was elevated to 743. UA revealed evidence of glucose urea and ketonuria. A large serum acetone level was noted. The patient received supplemental IV fluid hydration and was started on a continuous insulin infusion. Plain film chest x-ray revealed no acute cardiopulmonary process. The patient was subsequently transferred to the medical intensive care unit for ongoing management. Past Medical History Past Medical History (Chronic Problems): Chronic Problems (Last Reviewed 04/22/19 @ 11:28 by Pranay Solitario MD) Anxiety and depression (Chronic) GERD (gastroesophageal reflux disease) (Chronic) Fatty liver (Chronic) Suicidal ideations (Chronic) DM I (diabetes mellitus, type I), uncontrolled (Chronic) Medical History: Medical History (Last Reviewed 04/22/19 @ 11:28 by Pranay Solitario MD) Anxiety disorder F41.9 Back problem M53.9 Bone fracture T14.8XXA Diabetes type 1, uncontrolled E10.65 Dx : age 2 Last exacerbation : DKA : 01/31 Hypoglycemic episode : never ER visit : 01/31 Hearing problem H91.90 Liver disease K76.9 Seizure R56.9 Vision problem H54.7 Allergies No Known Allergies Allergy (Verified 04/22/19 07:58) Home Medications: Ambulatory Orders Medication Instructions Recorded Insulin Lispro [Humalog KwikPen] See Protocol SQ ACHS 08/21/18 Insulin Glargine,Hum.rec.anlog 40 - 45 unit SQ BIDAC 03/01/19 [Jillian Sen U-100] Surgical History: Surgical History (Last Reviewed 04/22/19 @ 11:28 by Pranay Solitario MD) S/p bilateral myringotomy with tube placement Z96.22 Surgical History: - - BL ear tubes. Psychiatric History: Anxiety, Depression, Prior suicide attempt Smoking Status: Never smoker Tobacco Use: Non-smoker - *Family History Maternal Family History: Family History (Last Reviewed 04/22/19 @ 11:28 by Pranay Solitario MD) Mother Kidney disease History Items: Heart Disease, Renal Disease Paternal Family History: Family History (Last Reviewed 04/22/19 @ 11:28 by Pranay Solitario MD) Mother Kidney disease History Items: Heart Disease, - - Paternal family males w/ frequent hearing disorder. Review of Systems Constitutional: Reports: Weight Change. Denies: Chills, Fever Eyes: Denies: Blurred vision, Double vision HEENT: Reports: Nasal Congestion, Post Nasal Drip, Sinus Congestion, Sore Throat Cardiovascular: Denies: Chest Pain, Palpitations Respiratory: Denies: Cough, Shortness of breath at rest, Sputum production Gastrointestinal: Reports: Abdominal Pain Genitourinary: Denies: Dysuria Musculoskeletal: Denies: Joint Pain, Joint Tenderness Skin: Denies: Rash, Wounds Neurological: Denies: Numbness, Tingling, Focal weakness Psychiatric: Reports: Anxiety, Depression Hematologic/ Lymphatic: Denies: Easy Bruising, Easy Bleeding Patient Problems: Active and Suspected Problems (Last Reviewed 04/22/19 @ 11:28 by Pranay Solitario MD) Diabetic ketoacidosis (Acute) Objective: The patient's most recent lab work, culture data and imaging studies have all been personally reviewed. - Physical Exam General: Alert, Cooperative, No apparent distress HEENT: Atraumatic, PERRLA, Normocephalic Oral: Dry Mucosa Neck: Supple, No Nodes, Trachea Midline Lungs: Normal air movement, No rhonchi, No wheeze, No rales Cardiovascular: Normal S1, Normal S2, No murmurs, Tachycardic Abdomen: Bowel Sounds Present, Soft, Non Tender Extremities: No clubbing, No cyanosis, No edema Skin: No breakdown Musculoskeletal: Cachexia, Muscle Wasting Lymphatic: No Cervical, Supraclavicular, or Inguinal Adenopathy Neurological: Cranial nerves II-XII grossly intact, Neuro grossly intact Psych/Mental Status: Normal Affect, Appropriate Vital Signs Temp Pulse Resp BP Pulse Ox 97.1 F L 112 H 20 H 117/78 97 04/22/19 07:59 04/22/19 09:24 04/22/19 09:24 04/22/19 09:24 04/22/19 09:24 Oxygen Delivery Method Room Air Weight: 124 lb 12.506 oz Body Mass Index (BMI) 18.9 Finger Stick Blood Glucose 307 Intake and Output for Last 24 Hours 04/20/19 04/21/19 04/22/19 23:59 23:59 23:59 Intake Total 2158.47 / 2158.47 Output Total 600 / 600 Balance 1558.47 / 1558.47 Laboratory Tests Past 24 Hrs 04/22/19 04/22/19 04/22/19 08:30 08:30 08:30 WBC 7.6 RBC 5.24 Hgb 16.6 H Hct 51.7 MCV 98.7 H MCH 31.7 MCHC 32.1 RDW Std Deviation 48.8 H RDW Coeff of Richard 13.4 Plt Count 374 MPV 8.9 Immature Gran % (Auto) 4.400 H Neut % (Auto) 49.4 Lymph % (Auto) 35.6 [place] % (Auto) 6.3 Eos % (Auto) 2.6 Baso % (Auto) 1.7 H Absolute Neuts (auto) 3.7 Absolute Lymphs (auto) 2.70 Nucleated RBC % 0 Specimen Type Sample Site VBG pH VBG pO2 VBG O2 Sat (Calc) VBG O2 Content VBG Base Excess POC Mix VBG pCO2 Pt Tmp O2 Delivery Device Blood Gas Notified Whom Blood Gas Notified Time Sodium 132 L Potassium 4.7 Chloride 94 L Carbon Dioxide 9.0 L* Anion Gap 29 H BUN 18 Creatinine 1.26 Estim Creat Clear Calc 72.00 Est GFR (MDRD) Af Amer 94 Est GFR (MDRD) Non-Af 77 BUN/Creatinine Ratio 14.3 Glucose 743 H* Calcium 9.4 Magnesium Urine Color Urine Clarity Urine pH Ur Specific [place] Urine Protein Urine Glucose (UA) Urine Ketones Urine Occult Blood Urine Nitrite Urine Bilirubin Urine Urobilinogen Ur Leukocyte Esterase Urine RBC Urine WBC Ur Squamous Epith Cells Urine Bacteria Urine Mucus Urine Yeast Acetone Level LARGE H 04/22/19 04/22/19 04/22/19 08:40 08:41 11:20 WBC RBC Hgb Hct MCV MCH MCHC RDW Std Deviation RDW Coeff of Richard Plt Count MPV Immature Gran % (Auto) Neut % (Auto) Lymph % (Auto) [place] % (Auto) Eos % (Auto) Baso % (Auto) Absolute Neuts (auto) Absolute Lymphs (auto) Nucleated RBC % Specimen Type CORRIE Sample Site L Brachial VBG pH 7.12 L* VBG pO2 47 H VBG O2 Sat (Calc) 69 VBG O2 Content 9 L VBG Base Excess -21 L POC Mix VBG pCO2 Pt Tmp 24.4 L O2 Delivery Device Room Air Blood Gas Notified Whom ED Blood Gas Notified Time 830 Sodium 135 L Potassium 4.7 Chloride 102 Carbon Dioxide 6.0 L* Anion Gap 27 H BUN 16 Creatinine 1.38 H Estim Creat Clear Calc 68.36 Est GFR (MDRD) Af Amer 84 Est GFR (MDRD) Non-Af 70 BUN/Creatinine Ratio 11.6 Glucose 625 H* Calcium 8.8 Magnesium 2.4 Urine Color Straw Urine Clarity Clear Urine pH 5.0 Ur Specific [place] 1.020 Urine Protein 30 H Urine Glucose (UA) 1000 H Urine Ketones 150 H Urine Occult Blood Negative Urine Nitrite Negative Urine Bilirubin Negative Urine Urobilinogen Normal Ur Leukocyte Esterase Negative Urine RBC 0 SEEN Urine WBC 0 SEEN Ur Squamous Epith Cells 0 SEEN Urine Bacteria RARE Urine Mucus 0 SEEN Urine Yeast RARE Acetone Level POC Glucose 04/22/19 04/22/19 12:50 10:56 POC Glucose 307 H > 500 H* Clinical Impression(s) from Imaging Studies Chest X-Ray 04/22/19 08:15 IMPRESSION: Normal x-ray examination of the chest. Electronically Signed: Rasheed Mabry DO at 9:04 EDT Tel , Service support , Assessment/Plan Active and Suspected Problems (Last Reviewed 04/22/19 @ 11:28 by Pranay Solitario MD) Diabetic ketoacidosis (Acute) RECOMMENDATIONS: 1. Continue insulin infusion and supplemental IV fluid hydration. 2. Aggressive electrolyte repletion. 3. Serial BMPs. Continue insulin infusion until anion gap has been closed x2. 4. Check respiratory viral panel. 5. Encourage incentive spirometer use while in bed. Mobilize patient as tolerated. IMPRESSIONS: 1. Diabetic ketoacidosis Potentially related to viral URI in the setting of a history of medical noncompliance. Patient's last hemoglobin A1c was noted to be greater than 12 in October 2018. The patient will be managed per protocol with supplemental IV fluid hydration and continuous insulin infusion, pending closure of his anion gap. We will check respiratory viral panel as well. Patient to remain n.p.o. until gap has been closed x2. 2. Anxiety/depression/GERD Complicates care, management, recovery and prognosis. This note was generated with [employer] dictation software. It may contain incorrect words, spelling, and punctuation that were not noted in checking the note before signing. Code Visit Inpatient E&M: 21002 Init Hosp L2
[2019-04-22 13:51] LABS: Bedside Glucose 282 mg/dL (70-110)
[2019-04-22 15:01] LABS: Bedside Glucose 252 mg/dL (70-110)
[2019-04-22 15:30] LABS: Anion Gap 18 (5-15); BUN 11 mg/dL (7-18); Calcium,Total 7.9 mg/dL (8.5-10.1); Chloride 113 mmol/L (98-107); EST Glomerular Filtration Rate 90 mL/min (>60); Est Glom Filt Rate - Afr Amer 109 mL/min (>60); Estimated Creatinine Clearance 85.76 ml/min; Glucose 275 mg/dL (74-106); Potassium 4.3 mmol/L (3.5-5.1); Sodium Level 144 mmol/L (136-145)
--- NOTE | 2019-04-22 15:40 | CASEMGMT ---
RN CM Assessment Introduced role of RN CM to patient.? Patient sleeping, easily aroused. Patient is alert, oriented and able?to participate in RN CM Assessment. ?Care providers, pharmacy, and demographics verified. Presentation: Poorly controlled DM, C/o generalized weakness and sinus congestion. Admit Dx: DKA Re-Admit: No. ER 02/04-02/05/19 for DKA. ER 03/01-03/02/19 for DKA Barriers/Issues: This marketing writer noted guardianship papers on file at [facility] to patient grandmojaya Coronel-patient states that he is his own guardian now. Patient with noted multiple visits/admissions for DKA. Patient states no issues with obtaining/taking medications or with f/u appointments. PCP: Scott Gomez Specialists: Meena Trevizo NP Endocrinology, [facility] [address] [place] [phone] Preferred Pharmacy: [facility] Insurance: [facility] Rx Benefit: Yes? ?LNOK: Grandmother Berna Wang Living Arrangements:? Lives with grandmother in a [facility] home, No steps to enter. ADL?s: Independent with ambulation and ADLs Transportation: Grandmother DME: Glucometer HHC: None SNF: None Goal: Home and does not think will have any needs. Denies any issues/questions/or concerns with DC planning at this time. Aware CM remains available for any emerging needs. DC PLAN: Home with no anticipated needs identified at this time. CAMDEN Villalobos
[2019-04-22 16:05] LABS: Bedside Glucose 255 mg/dL (70-110)
[2019-04-22 17:11] LABS: Bedside Glucose 227 mg/dL (70-110)
[2019-04-22 18:25] LABS: Bedside Glucose 164 mg/dL (70-110)
[2019-04-22 19:07] LABS: Anion Gap 11 (5-15); BUN 10 mg/dL (7-18); BUN/Creat Ratio 9.1 RATIO (10-20); Calcium,Total 8.1 mg/dL (8.5-10.1); Chloride 114 mmol/L (98-107); EST Glomerular Filtration Rate 90 mL/min (>60); Est Glom Filt Rate - Afr Amer 109 mL/min (>60); Estimated Creatinine Clearance 85.76 ml/min; Glucose 178 mg/dL (74-106); Sodium Level 144 mmol/L (136-145)
[2019-04-22 19:21] LABS: Bedside Glucose 183 mg/dL (70-110)
[2019-04-22 20:21] LABS: Bedside Glucose 212 mg/dL (70-110)
[2019-04-22 21:15] LABS: Bedside Glucose 192 mg/dL (70-110)
[2019-04-22 22:16] LABS: Bedside Glucose 152 mg/dL (70-110)
[2019-04-22] MEDS: 0.9% NaCl Peripheral Flush Adult/Peds IV (22:37)
[2019-04-22 22:59] LABS: Anion Gap 9 (5-15); BUN 10 mg/dL (7-18); BUN/Creat Ratio 9.4 RATIO (10-20); Calcium,Total 8.1 mg/dL (8.5-10.1); Chloride 114 mmol/L (98-107); Creatinine, Serum 1.06 mg/dL (0.70-1.30); EST Glomerular Filtration Rate 94 mL/min (>60); Est Glom Filt Rate - Afr Amer 114 mL/min (>60); Estimated Creatinine Clearance 88.99 ml/min; Glucose 144 mg/dL (74-106); Potassium 3.2 mmol/L (3.5-5.1); Sodium Level 145 mmol/L (136-145)
[2019-04-22] MEDS: TITRATION PARAMETER CHANGE 1 EACH IV (23:58)
[2019-04-23] VITALS (14 sets, daily range): BP systolic 91–118; BP diastolic 55–79; PULSE 68–94; RESP 16–22; TEMP 36.4–36.8; O2SAT 98–100
[2019-04-23 00:26] LABS: Bedside Glucose 90 mg/dL (70-110)
[2019-04-23 01:21] LABS: Bedside Glucose 125 mg/dL (70-110)
[2019-04-23 02:21] LABS: Bedside Glucose 112 mg/dL (70-110)
[2019-04-23 03:11] LABS: Bedside Glucose 95 mg/dL (70-110)
[2019-04-23 04:31] LABS: Absolute Lymphocyte Count 2.98 X10^3/uL (0.83-4.51); Absolute Neutrophil Count 2.4 X10^3/uL (2.0-7.7); Basophil# 0.06 X10^3/uL; Basophil% 0.9 % (0-1); Eosinophil# 0.41 X10^3/uL; Eosinophils% 6.3 % (0-5); Hematocrit 37.3 % (40-54); Hemoglobin 12.6 g/dL (13.0-16.5); Lymphocyte # 2.98 X10^3/ul (4.0); Lymphocyte % 46.1 % (19-41); Mean Corp Hgb Conc 33.8 g/dL (32-36); Mean Corpuscular Hgb 31.3 pg (27.0-32.0); Mean Corpuscular Volume 92.6 fL (80-94); Mean Platelet Vol. 8.8 fl (6.2-12.0); Monocyte# 0.44 X10^3/uL; Monocyte% 6.8 % (0-10); NRBC Flagged by Analyzer 0 % (0-5); Neutrophil # 2.44 X10^3/uL (2.7-7.7); Neutrophil % 37.7 % (47-70); Platelet Count 213 K/mm3 (150-450); RBC Distribution Width CV 13.4 % (11.6-14.6); RBC Distribution Width SD 45.6 fl (35.1-43.9); Red Blood Count 4.03 M/mm3 (4.6-6.2); White Blood Count 6.5 K/mm3 (4.4-11.0)
[2019-04-23 05:16] LABS: Anion Gap 7 (5-15); BUN 9 mg/dL (7-18); BUN/Creat Ratio 11.3 RATIO (10-20); Calcium,Total 7.9 mg/dL (8.5-10.1); Chloride 113 mmol/L (98-107); EST Glomerular Filtration Rate 131 mL/min (>60); Est Glom Filt Rate - Afr Amer 158 mL/min (>60); Estimated Creatinine Clearance 117.92 ml/min; Glucose 177 mg/dL (74-106); Magnesium 2.1 mg/dL (1.6-2.6); Potassium 3.5 mmol/L (3.5-5.1); Sodium Level 143 mmol/L (136-145)
--- NOTE | 2019-04-23 06:44 | PCM.PN.INT ---
Subjective: The patient was seen and examined at the bedside this morning. Events from the last 24 hours have been reviewed. The patient is currently afebrile, hemodynamically stable and maintaining appropriate oxygen saturations on room air. The patient's anion gap has been closed now for several occasions. Electrolytes are within normal limits. Objective: The patient's most recent lab work, culture data and imaging studies have all been personally reviewed. Respiratory viral panel was positive for rhinovirus. General: Alert, Oriented x3, Cooperative, No apparent distress HEENT: Atraumatic, PERRLA, Normocephalic Oral: No Gingival or Mucosal Lesions/ Ulcerations Neck: Supple, No Nodes, Trachea Midline Lungs: Normal air movement, No rhonchi, No wheeze, No rales Cardiovascular: Regular rate, Regular Rhythm, Normal S1, Normal S2 Abdomen: Bowel Sounds Present, Soft, Non Tender Extremities: No clubbing, No cyanosis, No edema Skin: No breakdown Musculoskeletal: No Tenderness to Palpation of Joints or Extremities Lymphatic: No Cervical, Supraclavicular, or Inguinal Adenopathy Neurological: Cranial nerves II-XII grossly intact, Neuro grossly intact Psych/Mental Status: Normal Affect, Appropriate Vital Signs Temp Pulse Resp BP Pulse Ox 97.8 F 71 18 98/63 99 04/23/19 04:00 04/23/19 06:00 04/23/19 06:00 04/23/19 06:00 04/23/19 06:00 Oxygen Delivery Method Room Air Weight: 127 lb 10.362 oz Body Mass Index (BMI) 18.9 Finger Stick Blood Glucose 95 Intake and Output for Last 24 Hours 04/21/19 04/22/19 04/23/19 23:59 23:59 23:59 Intake Total 5217.07 / 5697.07 1651.30 / 1651.30 Output Total 1450 / 1450 0 / 0 Balance 3767.07 / 4247.07 1651.30 / 1651.30 Labs (Last 48 Hours) 04/22/19 04/22/19 04/22/19 08:30 08:30 08:30 WBC 7.6 RBC 5.24 Hgb 16.6 H Hct 51.7 MCV 98.7 H MCH 31.7 MCHC 32.1 RDW Std Deviation 48.8 H RDW Coeff of Richard 13.4 Plt Count 374 MPV 8.9 Immature Gran % (Auto) 4.400 H Neut % (Auto) 49.4 Lymph % (Auto) 35.6 [place] % (Auto) 6.3 Eos % (Auto) 2.6 Baso % (Auto) 1.7 H Absolute Neuts (auto) 3.7 Absolute Lymphs (auto) 2.70 Nucleated RBC % 0 Specimen Type Sample Site VBG pH VBG pO2 VBG O2 Sat (Calc) VBG O2 Content VBG Base Excess POC Mix VBG pCO2 Pt Tmp O2 Delivery Device Blood Gas Notified Whom Blood Gas Notified Time Sodium 132 L Potassium 4.7 Chloride 94 L Carbon Dioxide 9.0 L* Anion Gap 29 H BUN 18 Creatinine 1.26 Estim Creat Clear Calc 72.00 Est GFR (MDRD) Af Amer 94 Est GFR (MDRD) Non-Af 77 BUN/Creatinine Ratio 14.3 Glucose 743 H* Calcium 9.4 Magnesium Urine Color Urine Clarity Urine pH Ur Specific [place] Urine Protein Urine Glucose (UA) Urine Ketones Urine Occult Blood Urine Nitrite Urine Bilirubin Urine Urobilinogen Ur Leukocyte Esterase Urine RBC Urine WBC Ur Squamous Epith Cells Urine Bacteria Urine Mucus Urine Yeast Acetone Level LARGE H POC Glucose 04/22/19 04/22/19 04/22/19 08:40 08:41 10:56 WBC RBC Hgb Hct MCV MCH MCHC RDW Std Deviation RDW Coeff of Richard Plt Count MPV Immature Gran % (Auto) Neut % (Auto) Lymph % (Auto) [place] % (Auto) Eos % (Auto) Baso % (Auto) Absolute Neuts (auto) Absolute Lymphs (auto) Nucleated RBC % Specimen Type CORRIE Sample Site L Brachial VBG pH 7.12 L* VBG pO2 47 H VBG O2 Sat (Calc) 69 VBG O2 Content 9 L VBG Base Excess -21 L POC Mix VBG pCO2 Pt Tmp 24.4 L O2 Delivery Device Room Air Blood Gas Notified Whom ED Blood Gas Notified Time 830 Sodium Potassium Chloride Carbon Dioxide Anion Gap BUN Creatinine Estim Creat Clear Calc Est GFR (MDRD) Af Amer Est GFR (MDRD) Non-Af BUN/Creatinine Ratio Glucose Calcium Magnesium Urine Color Straw Urine Clarity Clear Urine pH 5.0 Ur Specific [place] 1.020 Urine Protein 30 H Urine Glucose (UA) 1000 H Urine Ketones 150 H Urine Occult Blood Negative Urine Nitrite Negative Urine Bilirubin Negative Urine Urobilinogen Normal Ur Leukocyte Esterase Negative Urine RBC 0 SEEN Urine WBC 0 SEEN Ur Squamous Epith Cells 0 SEEN Urine Bacteria RARE Urine Mucus 0 SEEN Urine Yeast RARE Acetone Level POC Glucose > 500 H* 04/22/19 04/22/19 04/22/19 11:20 12:50 13:41 WBC RBC Hgb Hct MCV MCH MCHC RDW Std Deviation RDW Coeff of Richard Plt Count MPV Immature Gran % (Auto) Neut % (Auto) Lymph % (Auto) [place] % (Auto) Eos % (Auto) Baso % (Auto) Absolute Neuts (auto) Absolute Lymphs (auto) Nucleated RBC % Specimen Type Sample Site VBG pH VBG pO2 VBG O2 Sat (Calc) VBG O2 Content VBG Base Excess POC Mix VBG pCO2 Pt Tmp O2 Delivery Device Blood Gas Notified Whom Blood Gas Notified Time Sodium 135 L Potassium 4.7 Chloride 102 Carbon Dioxide 6.0 L* Anion Gap 27 H BUN 16 Creatinine 1.38 H Estim Creat Clear Calc 68.36 Est GFR (MDRD) Af Amer 84 Est GFR (MDRD) Non-Af 70 BUN/Creatinine Ratio 11.6 Glucose 625 H* Calcium 8.8 Magnesium 2.4 Urine Color Urine Clarity Urine pH Ur Specific [place] Urine Protein Urine Glucose (UA) Urine Ketones Urine Occult Blood Urine Nitrite Urine Bilirubin Urine Urobilinogen Ur Leukocyte Esterase Urine RBC Urine WBC Ur Squamous Epith Cells Urine Bacteria Urine Mucus Urine Yeast Acetone Level POC Glucose 307 H 282 H 04/22/19 04/22/19 04/22/19 14:54 15:05 15:56 WBC RBC Hgb Hct MCV MCH MCHC RDW Std Deviation RDW Coeff of Richard Plt Count MPV Immature Gran % (Auto) Neut % (Auto) Lymph % (Auto) [place] % (Auto) Eos % (Auto) Baso % (Auto) Absolute Neuts (auto) Absolute Lymphs (auto) Nucleated RBC % Specimen Type Sample Site VBG pH VBG pO2 VBG O2 Sat (Calc) VBG O2 Content VBG Base Excess POC Mix VBG pCO2 Pt Tmp O2 Delivery Device Blood Gas Notified Whom Blood Gas Notified Time Sodium 144 Potassium 4.3 Chloride 113 H Carbon Dioxide 13.0 L Anion Gap 18 H BUN 11 Creatinine 1.10 Estim Creat Clear Calc 85.76 Est GFR (MDRD) Af Amer 109 Est GFR (MDRD) Non-Af 90 BUN/Creatinine Ratio 10.0 Glucose 275 H Calcium 7.9 L Magnesium Urine Color Urine Clarity Urine pH Ur Specific [place] Urine Protein Urine Glucose (UA) Urine Ketones Urine Occult Blood Urine Nitrite Urine Bilirubin Urine Urobilinogen Ur Leukocyte Esterase Urine RBC Urine WBC Ur Squamous Epith Cells Urine Bacteria Urine Mucus Urine Yeast Acetone Level POC Glucose 252 H 255 H 04/22/19 04/22/19 04/22/19 17:02 18:15 18:45 WBC RBC Hgb Hct MCV MCH MCHC RDW Std Deviation RDW Coeff of Richard Plt Count MPV Immature Gran % (Auto) Neut % (Auto) Lymph % (Auto) [place] % (Auto) Eos % (Auto) Baso % (Auto) Absolute Neuts (auto) Absolute Lymphs (auto) Nucleated RBC % Specimen Type Sample Site VBG pH VBG pO2 VBG O2 Sat (Calc) VBG O2 Content VBG Base Excess POC Mix VBG pCO2 Pt Tmp O2 Delivery Device Blood Gas Notified Whom Blood Gas Notified Time Sodium 144 Potassium 4.0 Chloride 114 H Carbon Dioxide 19.0 L Anion Gap 11 BUN 10 Creatinine 1.10 Estim Creat Clear Calc 85.76 Est GFR (MDRD) Af Amer 109 Est GFR (MDRD) Non-Af 90 BUN/Creatinine Ratio 9.1 L Glucose 178 H Calcium 8.1 L Magnesium Urine Color Urine Clarity Urine pH Ur Specific [place] Urine Protein Urine Glucose (UA) Urine Ketones Urine Occult Blood Urine Nitrite Urine Bilirubin Urine Urobilinogen Ur Leukocyte Esterase Urine RBC Urine WBC Ur Squamous Epith Cells Urine Bacteria Urine Mucus Urine Yeast Acetone Level POC Glucose 227 H 164 H 04/22/19 04/22/19 04/22/19 19:18 20:11 21:10 WBC RBC Hgb Hct MCV MCH MCHC RDW Std Deviation RDW Coeff of Richard Plt Count MPV Immature Gran % (Auto) Neut % (Auto) Lymph % (Auto) [place] % (Auto) Eos % (Auto) Baso % (Auto) Absolute Neuts (auto) Absolute Lymphs (auto) Nucleated RBC % Specimen Type Sample Site VBG pH VBG pO2 VBG O2 Sat (Calc) VBG O2 Content VBG Base Excess POC Mix VBG pCO2 Pt Tmp O2 Delivery Device Blood Gas Notified Whom Blood Gas Notified Time Sodium Potassium Chloride Carbon Dioxide Anion Gap BUN Creatinine Estim Creat Clear Calc Est GFR (MDRD) Af Amer Est GFR (MDRD) Non-Af BUN/Creatinine Ratio Glucose Calcium Magnesium Urine Color Urine Clarity Urine pH Ur Specific [place] Urine Protein Urine Glucose (UA) Urine Ketones Urine Occult Blood Urine Nitrite Urine Bilirubin Urine Urobilinogen Ur Leukocyte Esterase Urine RBC Urine WBC Ur Squamous Epith Cells Urine Bacteria Urine Mucus Urine Yeast Acetone Level POC Glucose 183 H 212 H 192 H 04/22/19 04/22/19 04/22/19 22:06 22:15 22:40 WBC RBC Hgb Hct MCV MCH MCHC RDW Std Deviation RDW Coeff of Richard Plt Count MPV Immature Gran % (Auto) Neut % (Auto) Lymph % (Auto) [place] % (Auto) Eos % (Auto) Baso % (Auto) Absolute Neuts (auto) Absolute Lymphs (auto) Nucleated RBC % Specimen Type Sample Site VBG pH VBG pO2 VBG O2 Sat (Calc) VBG O2 Content VBG Base Excess POC Mix VBG pCO2 Pt Tmp O2 Delivery Device Blood Gas Notified Whom Blood Gas Notified Time Sodium Cancelled 145 Potassium Cancelled 3.2 L Chloride Cancelled 114 H Carbon Dioxide Cancelled 22.0 Anion Gap Cancelled 9 BUN Cancelled 10 Creatinine Cancelled 1.06 Estim Creat Clear Calc Cancelled 88.99 Est GFR (MDRD) Af Amer Cancelled 114 Est GFR (MDRD) Non-Af Cancelled 94 BUN/Creatinine Ratio Cancelled 9.4 L Glucose Cancelled 144 H Calcium Cancelled 8.1 L Magnesium Urine Color Urine Clarity Urine pH Ur Specific [place] Urine Protein Urine Glucose (UA) Urine Ketones Urine Occult Blood Urine Nitrite Urine Bilirubin Urine Urobilinogen Ur Leukocyte Esterase Urine RBC Urine WBC Ur Squamous Epith Cells Urine Bacteria Urine Mucus Urine Yeast Acetone Level POC Glucose 152 H 04/23/19 04/23/19 04/23/19 00:12 01:11 02:09 WBC RBC Hgb Hct MCV MCH MCHC RDW Std Deviation RDW Coeff of Richard Plt Count MPV Immature Gran % (Auto) Neut % (Auto) Lymph % (Auto) [place] % (Auto) Eos % (Auto) Baso % (Auto) Absolute Neuts (auto) Absolute Lymphs (auto) Nucleated RBC % Specimen Type Sample Site VBG pH VBG pO2 VBG O2 Sat (Calc) VBG O2 Content VBG Base Excess POC Mix VBG pCO2 Pt Tmp O2 Delivery Device Blood Gas Notified Whom Blood Gas Notified Time Sodium Potassium Chloride Carbon Dioxide Anion Gap BUN Creatinine Estim Creat Clear Calc Est GFR (MDRD) Af Amer Est GFR (MDRD) Non-Af BUN/Creatinine Ratio Glucose Calcium Magnesium Urine Color Urine Clarity Urine pH Ur Specific [place] Urine Protein Urine Glucose (UA) Urine Ketones Urine Occult Blood Urine Nitrite Urine Bilirubin Urine Urobilinogen Ur Leukocyte Esterase Urine RBC Urine WBC Ur Squamous Epith Cells Urine Bacteria Urine Mucus Urine Yeast Acetone Level POC Glucose 90 125 H 112 H 04/23/19 04/23/19 04/23/19 03:04 04:10 04:10 WBC 6.5 RBC 4.03 L Hgb 12.6 L Hct 37.3 L MCV 92.6 D MCH 31.3 MCHC 33.8 RDW Std Deviation 45.6 H RDW Coeff of Richard 13.4 Plt Count 213 MPV 8.8 Immature Gran % (Auto) 2.200 H Neut % (Auto) 37.7 L Lymph % (Auto) 46.1 H [place] % (Auto) 6.8 Eos % (Auto) 6.3 H Baso % (Auto) 0.9 Absolute Neuts (auto) 2.4 Absolute Lymphs (auto) 2.98 Nucleated RBC % 0 Specimen Type Sample Site VBG pH VBG pO2 VBG O2 Sat (Calc) VBG O2 Content VBG Base Excess POC Mix VBG pCO2 Pt Tmp O2 Delivery Device Blood Gas Notified Whom Blood Gas Notified Time Sodium 143 Potassium 3.5 Chloride 113 H Carbon Dioxide 23.0 Anion Gap 7 BUN 9 Creatinine 0.80 Estim Creat Clear Calc 117.92 Est GFR (MDRD) Af Amer 158 Est GFR (MDRD) Non-Af 131 BUN/Creatinine Ratio 11.3 Glucose 177 H Calcium 7.9 L Magnesium 2.1 Urine Color Urine Clarity Urine pH Ur Specific [place] Urine Protein Urine Glucose (UA) Urine Ketones Urine Occult Blood Urine Nitrite Urine Bilirubin Urine Urobilinogen Ur Leukocyte Esterase Urine RBC Urine WBC Ur Squamous Epith Cells Urine Bacteria Urine Mucus Urine Yeast Acetone Level POC Glucose 95 Microbiology 04/22/19 16:05 Mucosa - Nasopharyngeal Respiratory Panel (PCR) - Preliminary Rhinovirus Clinical Impression(s) from Imaging Studies Chest X-Ray 04/22/19 08:15 IMPRESSION: Normal x-ray examination of the chest. Electronically Signed: Rasheed Mabry DO at 9:04 EDT Tel , Service support , Medical Necessity - Tobacco Use Smoking Status: Never smoker Tobacco Use: Non-smoker Assessment/Plan All Active Problems (Last Reviewed 04/22/19 @ 11:28 by Pranay Solitario MD) Diabetic ketoacidosis (Acute) DKA, type 1 (Acute) DKA (diabetic ketoacidoses) (Acute) RECOMMENDATIONS: 1. Stop continuous supplemental IV fluids. 2. Continue basal insulin regimen and sliding scale coverage. 3. Will sign off from a critical care perspective. The patient can be transferred out of the ICU today. IMPRESSIONS: 1. Diabetic ketoacidosis Resolved. Potentially related to viral URI in the setting of a history of medical noncompliance. Patient's last hemoglobin A1c was noted to be greater than 12 in October 2018. The patient has been transition from a continuous insulin infusion to basal insulin regimen sliding scale coverage. Recommend close outpatient endocrinology follow-up. 2. Rhinovirus upper respiratory infection Continue as needed symptomatic treatment. 3. Anxiety/depression/GERD Complicates care, management, recovery and prognosis. This note was generated with [email or web address] dictation software. It may contain incorrect words, spelling, and punctuation that were not noted in checking the note before signing. Code Visit Inpatient E&M: 45399 Subs Hosp L2
[2019-04-23] MEDS: 0.9% NaCl Peripheral Flush Adult/Peds IV ×2 (06:49→06:50)
[2019-04-23 06:51] LABS: Bedside Glucose 383 mg/dL (70-110)
--- NOTE | 2019-04-23 07:11 | PN_ITS ---
Patient Problems: Active and Suspected Problems (Last Reviewed 04/22/19 @ 11:28 by Pranay Solitario MD) Diabetic ketoacidosis (Acute) Subjective: CC follow-up DKA Patient is a 18-year-old gentleman with past medical history significant for diabetes mellitus type 1 admitted with diabetic ketoacidosis. Admitted to a monitored bed where patient has since been managed. Patient DKA has resolved. Her respiratory panel assay came back positive for rhinovirus Objective: GENERAL: Ill-looking HEENT: Atraumatic; moist oral mucosa EYES; Anicteric, Normal Conjunctiva NECK; supple, normal thyroid, RESPIRATORY: Diminished to auscultation CARDIOVASCULAR: Regular S1 S2, n GI: soft, non-tender, normoactive bowel sounds, : No Renal angle tenderness; EXTREMITIES: No edema, no clubbing, MUSCULOSKELETAL: muscle waisting NEURO: Awake; no lateralizing signs. SKIN: No Rash PSYCH; Normal affect Vitals/I&O's: Vital Signs Temp Pulse Resp BP Pulse Ox 97.8 F 69 19 H 105/78 100 04/23/19 04:00 04/23/19 07:00 04/23/19 07:00 04/23/19 07:00 04/23/19 07:00 Oxygen Delivery Method Room Air Weight: 57.9 kg Body Mass Index (BMI) 18.9 Finger Stick Blood Glucose 95 Intake and Output for Last 24 Hours 04/21/19 04/22/19 04/23/19 23:59 23:59 23:59 Intake Total 5217.07 / 5697.07 1651.30 / 1651.30 Output Total 1450 / 1450 0 / 0 Balance 3767.07 / 4247.07 1651.30 / 1651.30 Microbiology Past 72 Hours 04/22/19 16:05 Mucosa - Nasopharyngeal Respiratory Panel (PCR) - Final Rhinovirus Laboratory Results 04/22/19 08:30: WBC 7.6, RBC 5.24, Hgb 16.6 H, Hct 51.7, MCV 98.7 H, MCH 31.7, MCHC 32.1, RDW Std Deviation 48.8 H, RDW Coeff of Richard 13.4, Plt Count 374, MPV 8.9, Immature Gran % (Auto) 4.400 H, Neut % (Auto) 49.4, Lymph % (Auto) 35.6, [place] % (Auto) 6.3, Eos % (Auto) 2.6, Baso % (Auto) 1.7 H, Absolute Neuts (auto) 3.7, Absolute Lymphs (auto) 2.70, Nucleated RBC % 0 04/22/19 08:30: Sodium 132 L, Potassium 4.7, Chloride 94 L, Carbon Dioxide 9.0 L*, Anion Gap 29 H, BUN 18, Creatinine 1.26, Estim Creat Clear Calc 72.00, Est GFR (MDRD) Af Amer 94, Est GFR (MDRD) Non-Af 77, BUN/Creatinine Ratio 14.3, Gl ucose 743 H*, Calcium 9.4 04/22/19 08:30: Acetone Level LARGE H 04/22/19 08:40: Urine Color Straw, Urine Clarity Clear, Urine pH 5.0, Ur Specific [place]inson 1.020, Urine Protein 30 H, Urine Glucose (UA) 1000 H, Urine Ketones 150 H, Urine Occult Blood Negative, Urine Nitrite Negative, Urine Bilirubin Negative, Urine Urobilinogen Normal, Ur Leukocyte Esterase Negative, Urine RBC 0 SEEN, Urine WBC 0 SEEN, Ur Squamous Epith Cells 0 SEEN, Urine Bacteria RARE, Urine Mucus 0 SEEN, Urine Yeast RARE 04/22/19 08:41: Specimen Type CORRIE, Sample Site L Brachial, VBG pH 7.12 L*, VBG pO2 47 H, VBG O2 Sat (Calc) 69, VBG O2 Content 9 L, VBG Base Excess -21 L, POC Mix VBG pCO2 Pt Tmp 24.4 L, O2 Delivery Device Room Air, Blood Gas Notified Whom ED MD, Blood Gas Notified Time 830 04/22/19 10:56: POC Glucose > 500 H* 04/22/19 11:20: Sodium 135 L, Potassium 4.7, Chloride 102, Carbon Dioxide 6.0 L* , Anion Gap 27 H, BUN 16, Creatinine 1.38 H, Estim Creat Clear Calc 68.36, Est GFR (MDRD) Af Amer 84, Est GFR (MDRD) Non-Af 70, BUN/Creatinine Ratio 11.6, Glucose 625 H*, Calcium 8.8, Magnesium 2.4 04/22/19 12:50: POC Glucose 307 H 04/22/19 13:41: POC Glucose 282 H 04/22/19 14:54: POC Glucose 252 H 04/22/19 15:05: Sodium 144, Potassium 4.3, Chloride 113 H, Carbon Dioxide 13.0 L , Anion Gap 18 H, BUN 11, Creatinine 1.10, Estim Creat Clear Calc 85.76, Est GFR (MDRD) Af Amer 109, Est GFR (MDRD) Non-Af 90, BUN/Creatinine Ratio 10.0, Glucose 275 H, Calcium 7.9 L 04/22/19 15:56: POC Glucose 255 H 04/22/19 17:02: POC Glucose 227 H 04/22/19 18:15: POC Glucose 164 H 04/22/19 18:45: Sodium 144, Potassium 4.0, Chloride 114 H, Carbon Dioxide 19.0 L , Anion Gap 11, BUN 10, Creatinine 1.10, Estim Creat Clear Calc 85.76, Est GFR (MDRD) Af Amer 109, Est GFR (MDRD) Non-Af 90, BUN/Creatinine Ratio 9.1 L, Glucose 178 H, Calcium 8.1 L 04/22/19 19:18: POC Glucose 183 H 04/22/19 20:11: POC Glucose 212 H 04/22/19 21:10: POC Glucose 192 H 04/22/19 22:06: POC Glucose 152 H 04/22/19 22:15: Sodium Cancelled, Potassium Cancelled, Chloride Cancelled, Carbon Dioxide Cancelled, Anion Gap Cancelled, BUN Cancelled, Creatinine Cancelled, Estim Creat Clear Calc Cancelled, Est GFR (MDRD) Af Amer Cancelled, Est GFR (MDRD) Non-Af Cancelled, BUN/Creatinine Ratio Cancelled, Glucose Cancelled, Calcium Cancelled 04/22/19 22:40: Sodium 145, Potassium 3.2 L, Chloride 114 H, Carbon Dioxide 22.0, Anion Gap 9, BUN 10, Creatinine 1.06, Estim Creat Clear Calc 88.99, Est GFR (MDRD) Af Amer 114, Est GFR (MDRD) Non-Af 94, BUN/Creatinine Ratio 9.4 L, Glucose 144 H, Calcium 8.1 L 04/23/19 00:12: POC Glucose 90 04/23/19 01:11: POC Glucose 125 H 04/23/19 02:09: POC Glucose 112 H 04/23/19 03:04: POC Glucose 95 04/23/19 04:10: WBC 6.5, RBC 4.03 L, Hgb 12.6 L, Hct 37.3 L, MCV 92.6 D, MCH 31.3, MCHC 33.8, RDW Std Deviation 45.6 H, RDW Coeff of Richard 13.4, Plt Count 213, MPV 8.8, Immature Gran % (Auto) 2.200 H, Neut % (Auto) 37.7 L, Lymph % (Auto) 46.1 H, [place] % (Auto) 6.8, Eos % (Auto) 6.3 H, Baso % (Auto) 0.9, Absolute Neuts (auto) 2.4, Absolute Lymphs (auto) 2.98, Nucleated RBC % 0 04/23/19 04:10: Sodium 143, Potassium 3.5, Chloride 113 H, Carbon Dioxide 23.0, Anion Gap 7, BUN 9, Creatinine 0.80, Estim Creat Clear Calc 117.92, Est GFR (MDRD) Af Amer 158, Est GFR (MDRD) Non-Af 131, BUN/Creatinine Ratio 11.3, Glucose 177 H, Calcium 7.9 L, Magnesium 2.1 04/23/19 06:44: POC Glucose 383 H Current Medications Acetaminophen (Tylenol) 650 mg PO Q6H PRN PRN PRN Reason: Mild Pain (1-3)/Temp > 100.7 F Al Hydroxide/Mg Hydroxide (Mylanta Ii) 30 ml PO Q6H PRN PRN PRN Reason: Gastric Burning Albuterol Sulfate (Ventolin Aerosols) 2.5 mg INHALATION Q2H PRN PRN PRN Reason: SOB/Wheezing Dextrose (D50w Syringe) 0 gm IV X1 PRN; Protocol PRN Reason: Hypoglycemia Protocol Last Admin: 04/22/19 10:00 Dose: 25 gm Documented by: Dextrose (D50w Syringe) 0 gm IV X1 PRN; Protocol PRN Reason: Hypoglycemia Enoxaparin Sodium (Lovenox) 40 mg SC DAILY@1000 TING Glucagon () 1 mg IM .X1 PRN PRN Reason: Hypoglycemia Insulin Glargine (Lantus (Bkc)) 10 units SC BID TING Insulin Human Lispro (Humalog Kwikpen (Bkc)) 0 unit SC ACHS TING; Protocol Magnesium Hydroxide (Milk Of Magnesia) 30 ml PO DAILY PRN PRN PRN Reason: Constipation Melatonin (Melatonin) 3 mg PO QHS PRN PRN PRN Reason: INSOMNIA Ondansetron HCl (Zofran) 4 mg IV Q8H PRN PRN PRN Reason: NAUSEA/VOMITING Oxycodone HCl (Oxyir) 5 mg PO Q4H PRN PRN PRN Reason: Moderate pain (4-6/10) Oxycodone HCl (Oxyir) 10 mg PO Q4H PRN PRN PRN Reason: Severe pain (7-10/10) Promethazine HCl (Phenergan) 25 mg IM Q6H PRN PRN PRN Reason: Breakthrough Nausea/Vomiting Sodium Chloride () 5 - 15 ml IV UD PRN PRN Reason: SALINE FLUSH Last Admin: 04/23/19 06:50 Dose: 10 ml Documented by: Throat Lozenges (Cepacol Sore Throat Lozenge) 1 lozenge MUCOUS MEM Q2H PRN PRN PRN Reason: Sore Throat/Cough Medical Necessity - Tobacco Use Smoking Status: Never smoker Tobacco Use: Non-smoker Assessment/Plan All Active Problems (Last Reviewed 04/22/19 @ 11:28 by Pranay Solitario MD) Diabetic ketoacidosis (Acute) DKA, type 1 (Acute) DKA (diabetic ketoacidoses) (Acute) Patient is an 18 -year-old gentleman with past medical history significant for diabetes mellitus type 1 presented with elevated blood glucose associated with nausea and progressive weakness assessment of diabetic ketoacidosis made and admission admitted to the intensive care unit for further management 1. Diabetic ketoacidosis ~ admitted to the intensive care unit managed with aggressive IV fluid resuscitation and IV insulin with correction of electrolyte abnormalities consult was placed banking services advisor. ~ 04/23/2019: Patient DKA resolved at this point. Did initiate patient long- acting insulin in addition to scheduled pre-meal short acting and sliding scale correction factor 2. Acute rhinovirus infection ?Treated symptomatically 3. GERD ~ Was previously on PPI currently asymptomatic 4. DVT prophylaxis ~ CT Lovenox Code Visit Inpatient E&M: 34201 [facility] Hosp L2
[2019-04-23] MEDS: Insulin Lispro 100 UNIT/ML INSULN.PEN SC ×4 (08:13→21:24)
[2019-04-23 08:20] LABS: Bedside Glucose 439 mg/dL (70-110)
[2019-04-23] MEDS: Insulin Lispro 100 UNIT/ML INSULN.PEN 8 UNIT SC ×3 (08:36→16:46)
[2019-04-23 11:15] LABS: Bedside Glucose 263 mg/dL (70-110)
[2019-04-23] MEDS: Glucerna Shake 120 ML LIQUID PO ×4 (11:36→21:24)
--- NOTE | 2019-04-23 12:49 | CHAPLAIN ---
Type of Pastoral Visit _x__ Initial Visit ___ Follow-up Visit ___ On-call Visit ___ General Patient Visit ___ Spiritual Assessment ___ Family Conference ___ Bereavement ___ Rapid Response ___ Code Blue ___ Other (describe below) Pastoral Care Referral From _x__ Patient ___ Family ___ Nurse ___ Physician ___ Construction Coordinator ___ Vp ___ Other (describe below) Sacrament/Intervention _x__ Active listening ___ Anointing ___ Yazidi ___ Bereavement ___ Communion ___ Michaela exploration ___ _x__ Life review _x__ Prayer ___ Reconciliation ___ Sacrament of Sick _x__ Supportive presence ___ Wedding ___ Other (describe below) Pastoral Comments
[2019-04-23 16:56] LABS: Bedside Glucose 210 mg/dL (70-110)
[2019-04-23] MEDS: Acetaminophen 325 MG Tablet 650 MG PO (21:24)
[2019-04-23 21:31] LABS: Bedside Glucose 288 mg/dL (70-110)
[2019-04-24 02:34] VITALS: BP 107/65; PULSE 75; RESP 16; TEMP 36.8; O2SAT 99
[2019-04-24 05:35] LABS: Bedside Glucose 86 mg/dL (70-110)
--- NOTE | 2019-04-24 05:38 | NURSING ---
Patient asked to have BG checked this morning, BG 86, patient requested OJ and cereal with milk at this time. This RN also encouraged patient to order breakfast.
[2019-04-24 06:05] LABS: Absolute Neutrophil Count 1.1 X10^3/uL (2.0-7.7); Basophil# 0.06 X10^3/uL; Basophil% 1.3 % (0-1); Eosinophil# 0.33 X10^3/uL; Eosinophils% 7.3 % (0-5); Hematocrit 41.5 % (40-54); Lymphocyte % 57.4 % (19-41); Mean Corp Hgb Conc 33.7 g/dL (32-36); Monocyte# 0.32 X10^3/uL; Monocyte% 7.1 % (0-10); NRBC Flagged by Analyzer 0 % (0-5); Neutrophil # 1.14 X10^3/uL (2.7-7.7); Neutrophil % 25.1 % (47-70); Platelet Count 209 K/mm3 (150-450); RBC Distribution Width CV 13.2 % (11.6-14.6); RBC Distribution Width SD 43.9 fl (35.1-43.9); Red Blood Count 4.51 M/mm3 (4.6-6.2); White Blood Count 4.5 K/mm3 (4.4-11.0)
[2019-04-24 06:25] LABS: Anion Gap 8 (5-15); BUN 11 mg/dL (7-18); BUN/Creat Ratio 21.1 RATIO (10-20); Calcium,Total 8.6 mg/dL (8.5-10.1); Chloride 110 mmol/L (98-107); Creatinine, Serum 0.52 mg/dL (0.70-1.30); EST Glomerular Filtration Rate 214 mL/min (>60); Est Glom Filt Rate - Afr Amer 259 mL/min (>60); Estimated Creatinine Clearance 191.35 ml/min; Glucose 69 mg/dL (74-106); Potassium 2.9 mmol/L (3.5-5.1); Sodium Level 144 mmol/L (136-145)
--- NOTE | 2019-04-24 07:25 | DCINST_ITS ---
- Discharge Diagnoses Current Active Problems: Current Active and Chronic Problems (Last Reviewed 04/22/19 @ 11:28 by Pranay Solitario MD) Diabetic ketoacidosis (Acute) You will use the following diet at home:: Calorie/Carbohydrate Controlled (specify 1200, 1400, etc) - 1800 Discharge Activity: Return to Normal Activity Allergies/Adverse Reactions: Allergies No Known Allergies Allergy (Verified 04/22/19 07:58) Medications to take at Discharge Insulin Lispro [Humalog KwikPen] See Protocol SQ ACHS 08/21/18 Insulin Glargine,Hum.rec.anlog [Basaglar Kwikpen U-100] 40 - 45 unit SQ BIDAC 03/01/19 Primary Care Physician: Scott Gomez MD [Primary Care Provider] - Please follow up with your Primary Care Physician in: in 5-7 days Test Results: Test results from this visit will be discussed in further detail at your follow- up appointment, if applicable. Proposed Discharge Date: 04/24/19
--- NOTE | 2019-04-24 07:31 | DS.PCM_ITS ---
Discharge Date and Diagnosis - Problem List Patient Problems: Active and Suspected Problems (Last Reviewed 04/22/19 @ 11:28 by Pranay Solitario MD) Diabetic ketoacidosis (Acute) Date of Admission: 04/22/19 Date of Discharge: 04/24/19 - Primary Discharge Diagnosis Active and Suspected Problems (Last Reviewed 04/22/19 @ 11:28 by Pranay Solitario MD) Diabetic ketoacidosis (Acute) - Secondary Discharge Diagnosis Chronic Problems (Last Reviewed 04/22/19 @ 11:28 by Pranay Solitario MD) Anxiety and depression (Chronic) GERD (gastroesophageal reflux disease) (Chronic) Fatty liver (Chronic) Suicidal ideations (Chronic) DM I (diabetes mellitus, type I), uncontrolled (Chronic) Hospital Course and Treatment Operations: None Summary of Care Provided: Patient is an 18 -year-old gentleman with past medical history significant for diabetes mellitus type 1 presented with elevated blood glucose associated with nausea and progressive weakness assessment of diabetic ketoacidosis made and admission admitted to the intensive care unit for further management 1. 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 DKA resolved a Did initiate patient long-acting insulin in addition to scheduled pre-meal short acting and sliding scale correction factor 2. Acute rhinovirus infection ?Treated symptomatically 3. GERD ~ Was previously on PPI currently asymptomatic 4. DVT prophylaxis ~ SC Lovenox Patient Problems: Active and Suspected Problems (Last Reviewed 04/22/19 @ 11:28 by Pranay Solitario MD) Diabetic ketoacidosis (Acute) Objective: GENERAL: Cooperative HEENT: Atraumatic; moist oral mucosa EYES; Anicteric, Normal Conjunctiva NECK; supple, normal thyroid, RESPIRATORY: Diminished to auscultation CARDIOVASCULAR: Regular S1 S2, n GI: soft, non-tender, normoactive bowel sounds, : No Renal angle tenderness; EXTREMITIES: No edema, no clubbing, MUSCULOSKELETAL: muscle waisting NEURO: Awake; no lateralizing signs. SKIN: No Rash PSYCH; Normal affect - Physical Exam Vital Signs Temp Pulse Resp BP Pulse Ox 98.2 F 75 16 107/65 99 04/24/19 02:34 04/24/19 02:34 04/24/19 02:34 04/24/19 02:34 04/24/19 02:34 Oxygen Delivery Method Room Air Weight: 59.7 kg Body Mass Index (BMI) 18.9 Finger Stick Blood Glucose 95 Intake and Output for Last 24 Hours 04/22/19 04/23/19 04/24/19 23:59 23:59 23:59 Intake Total 5217.07 / 5697.07 3711.30 / 3961.30 490 / 490 Output Total 1450 / 1450 0 / 0 Balance 3767.07 / 4247.07 3711.30 / 3961.30 490 / 490 Microbiology Past 72 Hours 04/22/19 16:05 Respiratory Panel (PCR) - Final Mucosa - Nasopharyngeal Rhinovirus Laboratory Tests Past 24 Hrs 04/24/19 04/24/19 05:10 05:10 WBC 4.5 RBC 4.51 L Hgb 14.0 Hct 41.5 MCV 92.0 MCH 31.0 MCHC 33.7 RDW Std Deviation 43.9 RDW Coeff of Richard 13.2 Plt Count 209 MPV 9.0 Immature Gran % (Auto) 1.800 H Neut % (Auto) 25.1 L Lymph % (Auto) 57.4 H [place] % (Auto) 7.1 Eos % (Auto) 7.3 H Baso % (Auto) 1.3 H Absolute Neuts (auto) 1.1 L Absolute Lymphs (auto) 2.60 Nucleated RBC % 0 Sodium 144 Potassium 2.9 L Chloride 110 H Carbon Dioxide 26.0 Anion Gap 8 BUN 11 Creatinine 0.52 L Estim Creat Clear Calc 191.35 Est GFR (MDRD) Af Amer 259 Est GFR (MDRD) Non-Af 214 BUN/Creatinine Ratio 21.1 H Glucose 69 L Calcium 8.6 POC Glucose 04/24/19 04/23/19 04/23/19 05:31 21:21 16:42 POC Glucose 86 288 H 210 H 04/23/19 04/23/19 11:14 08:07 POC Glucose 263 H 439 H Discharge Diet: 1800 Calorie Control Diet Discharge Activity: Return to Normal Activity Home Medications: Medications to take at Discharge Insulin Lispro [Humalog KwikPen] See Protocol SQ ACHS 08/21/18 Insulin Glargine,Hum.rec.anlog [Basaglar Kwikpen U-100] 40 - 45 unit SQ BIDAC 03/01/19 Primary Care Physician: Scott Gomez MD [Primary Care Provider] - Please follow up with your Primary Care Physician in: in 5-7 days Disposition: Home Minutes spent on discharge:: 35 Patient Condition:: Stable Medical Necessity - Tobacco Use Smoking Status: Never smoker Tobacco Use: Non-smoker Meaningful Use Info Meaningful Use Diagnoses (Choose all that apply): None applicable Code Visit Inpatient E&M: 36526 Disch Hosp
[2019-04-24 07:56] VITALS: BP 109/68; PULSE 85; RESP 18; TEMP 36.8; O2SAT 98
[2019-04-24] MEDS: Insulin Lispro 100 UNIT/ML INSULN.PEN SC (07:58)
[2019-04-24] MEDS: Insulin Lispro 100 UNIT/ML INSULN.PEN 8 UNIT SC (07:58)
[2019-04-24] MEDS: Glucerna Shake 120 ML LIQUID PO (07:59)
[2019-04-24 08:05] LABS: Bedside Glucose 177 mg/dL (70-110)
--- NOTE | 2019-04-25 13:37 | CASEMGMT ---
ROMANA CM DC PHONE CALL DC DATE: 04/24/19 DC Disposition: Home Diagnosis on Discharge: DKA LACE/STRATA: 27/10 Attempted call to listed phone. Voice mail box has not been set up. John SCHMITZ RN ACM
--- NOTE | 2019-04-27 13:31 | NURSING ---
Pt called in requesting work excuse for recent hospital stay. Notified that staff can provide excuse for days admitted but cannot extend past that. Pt verbalized understanding and same given
== END 2019-04-24 08:44 | disposition home or self-care (01) | DRG 420 ==
LOC: ED 08:16 → ICU 09:26 → MS3 04-23 13:44
PROVIDERS: Admitting Provider Internal Medicine; Emergency Provider Emergency Medicine; Family Provider Pediatrics; PCP Pediatrics; Visit Provider Internal Medicine
DX: E10.10 Type 1 diabetes mellitus with ketoacidosis without coma (principal); J06.9 Acute upper respiratory infection, unspecified; K21.9 Gastro-esophageal reflux disease without esophagitis; B97.89 Other viral agents as the cause of diseases classified elsewhere; F32.9 Major depressive disorder, single episode, unspecified; F41.9 Anxiety disorder, unspecified; Z79.4 Long term (current) use of insulin; K76.0 Fatty (change of) liver, not elsewhere classified
CPT/HCPCS: 36415; 71045; 80048; 81001; 82009; 82803; 82962; 83735; 85025; 87633; 93005; 97802; 99285; J7030; J7120; A4216

== ENCOUNTER 2019-06-29 23:52 | Emergency (ER) | payer MEDICAID, SELFPAY ==
[2019-04-22 10:25] VITALS: BMI 18.9
[2019-06-29 23:52] VITALS: BP 136/83; PULSE 110; RESP 18; TEMP 36.7; O2SAT 99; BMI 19.8
--- NOTE | 2019-06-30 00:04 | ED.DCSUM_ITS ---
- ER Visit Summary Date of Service: 06/30/19 Chief Complaint: Elevated blood sugar and left ear pain History of Present Illness: The patient is a 18 M history of type 1 insulin- dependent diabetes. Patient is well-known to this emergency department from history of frequent DKA. States that his blood sugar today initially was 126 around 430 he rechecked it at approximately 6 PM and it was over 400. He did believe he was in DKA but 1 to be evaluated. He had nausea and vomiting 2 days ago but that is since resolved. He denies any diarrhea or fever. He has had pain in his left ear for about a week. Saw an urgent care. They told him he had fluid behind his ear and put him on antibiotics and nasal spray. Said he really has not improved. Denies any trauma. To the ear. No fever or sore throat. He has had prior ear tubes. Physical Examination: Well-appearing young male. Vital signs are stable afebrile. No distress. H EENT exam normal. Posterior pharynx normal. His tonsils definitely not enlarged. There is no exudate or erythema. Posterior pharynx is normal. Right ear canal and ear are normal. There is scarring from a prior TM tube. Left TM and canal again are also unremarkable. There is no significant fluid. No erythema. No perforation. Canals normal. No swelling or wax. No blood. Eustachian tube nontender. No trouble swallowing or breathing. Neck nontender. No lymphadenopathy. Lungs are clear. Heart regular rhythm. Abdomen soft nontender. Patient is moving all 4 extremities. They are neurovascular intact. No rash. No edema. Back nontender. Neurologically is awake and alert. Test Results: Blood sugar was obtained by nursing of T was 213. For this patient that is very good. Emergency Department Course and Treatment: Ear pain of uncertain etiology. Nothing needs to be done with his blood sugar at this time. Treatment Plan: Tylenol and Motrin for ear pain. Follow-up with ENT if not improving. Watch his blood sugars. Disposition: Discharge Impression: Transient hyperglycemia Left ear pain uncertain etiology History of insulin-dependent diabetes This note was generated with [employer] dictation software. It may contain incorrect words, spelling, and punctuation that were not noted in review of the chart prior to signing ED Disposition - Plan for ED Patient: Referrals: Scott Gomez MD [Primary Care Provider] -
--- NOTE | 2019-06-30 00:08 | ED.DEP ---
ED Disposition - Plan for ED Patient: Disposition: Home or Assisted Living Instructions: ED Diabetic Hyperglycemia Referrals: Scott Gmoez MD [Primary Care Provider] - As Needed Shyam Masterson MD [STAFF PHYSICIAN] - 1 Week if not improving Additional Instructions: Watch her blood sugars closely. Tylenol and/or Motrin for left ear pain. Your ear exam currently is unremarkable. If is not improving follow-up with ear nose and throat doctor Shyam Masterson.
[2019-06-30 00:11] LABS: Bedside Glucose 213 mg/dL (70-110)
== END 2019-06-30 00:19 | disposition home or self-care (01) ==
PROVIDERS: Emergency Provider Emergency Medicine; Family Provider Pediatrics; PCP Pediatrics
DX: E10.65 Type 1 diabetes mellitus with hyperglycemia (principal); H92.02 Otalgia, left ear; Z79.4 Long term (current) use of insulin
CPT/HCPCS: 82962; 99283

== ENCOUNTER 2019-07-24 15:51 | Emergency (ER) | payer MEDICAID, SELFPAY ==
[2019-07-24 15:51] VITALS: BP 140/84; PULSE 117; RESP 18; TEMP 36.2; O2SAT 100; BMI 19.5
--- NOTE | 2019-07-24 16:05 | ED.DCSUM_ITS ---
History of Present Illness Chief Complaint: Nausea/Vomiting Informant: Patient - Abdominal Pain/Flank Pain Onset: Days - 3 Context: Gradual Onset Timing: Continuous Quality: - - sore R abd. nonbilious nonbloody emesis. Location: - - R mid abd Current Severity: Mild - pain Maximum Severity: Mild - pain Worsened by: Food Relieved by: Nothing - Nausea/Vomiting/Emesis GI Symptom: Nausea, Vomiting Onset: Days - 3 Quality: Nonbilious. Negative for: Blood streaks, Coffee ground, Hematemesis Severity: Severe - Diarrhea/Melena/Hematochezia GI Symptom: Diarrhea. Negative for: Melena, Hematochezia Onset: Days - 3 Stool Quality: Watery. Negative for: Black, Maroon, DELIA per rectum Severity: Mild Associated Symptoms: Frequency. Negative for: Dysuria, Hematuria, Urgency Narrative: Patient is a type I diabetic, he has had vomiting diarrhea for the last several days and it has been making his sugars very difficult to control. He has missed no doses of long or short acting insulin. His last blood sugar prior to coming here was over 600. Multiple family members have had the stomach flu lately, same symptoms and he believes he caught it from them. - Past Medical History (1) Anxiety and depression Status: Chronic (2) DM I (diabetes mellitus, type I), uncontrolled Status: Chronic (3) Fatty liver Status: Chronic (4) GERD (gastroesophageal reflux disease) Status: Chronic Past Medical History - Allergies and Home Meds Allergies/Adverse Reactions: Allergies No Known Allergies Allergy (Verified 07/24/19 15:52) Primary Care Physician: Scott Gomez MD [Primary Care Provider] - Surgical History: - - BL ear tubes. Lives: With Family Smoking Status: Never smoker - Family History Maternal Family History: Family History (Last Reviewed 04/22/19 @ 11:28 by Pranay Solitario MD) Mother Kidney disease Family History: Reports: Heart Disease, Renal Disease Paternal Family History: Family History (Last Reviewed 04/22/19 @ 11:28 by Pranay Solitario MD) Mother Kidney disease Family History: Reports: Heart Disease, - - Paternal family males w/ frequent hearing disorder. Additional Family History: Family history of hearing loss on the father's side in the mail. No history of [place] syndrome. Review of Systems General: Reports: Malaise. Denies: Chills, Fever, Sweats Eyes: Denies: Visual changes - bilaterally, Diplopia ENT: Denies: Rhinorrhea, Sore throat Cardiovascular: Denies: Chest pain, Palpitations Respiratory: Reports: Dyspnea - once earlier while vomiting; resolved. Denies: Cough, Dyspnea on exertion Gastrointestinal: Reports: Abdominal pain, Nausea, Vomiting, Diarrhea. Denies: Melena, Hematochezia Genitourinary: Denies: Dysuria, Hematuria, Frequency Musculoskeletal: Denies: Neck pain, Back pain, Swelling, Extremity Pain Skin: Denies: Rash, Wounds Neurological: Denies: Headache, Weakness, Numbness Physical Exam Vital Signs/Narrative: Vital Signs Temp Pulse Resp BP Pulse Ox 07/24/19 15:51 97.2 F L 117 H 18 140/84 H 100 Inital Vital Signs reviewed: Yes General: Well nourished, Well developed, No Acute Distress Head: Normocephalic, Atraumatic Eyes: Perrl, EOMI ENT: Moist mucous membranes, No rhinorrhea. Negative for: Sinus tenderness Neck: Supple, Nontender, No lymphadenopathy, No JVD Cardiovascular: Regular rate, Regular rhythm, No murmurs, Normal S1, Normal S2, Tachycardia Respiratory: No distress, CTA bilaterally, Chest nontender Abdomen: Soft, Nontender, Nondistended, Hyperactive bowel sounds Back: Nontender, Normal Inspection. Negative for: CVA tenderness Extremities: Nontender, No edema Skin: Normal color, No rash, No Trauma Neurological: Alert, Oriented x3, Cranial nerves II-XII grossly intact, Normal Strength, Normal Sensation, Normal Gait Psychological: Normal affect, Normal Mood Diagnostic/Tx/Re-eval Laboratory Results 07/24/19 07/24/19 07/24/19 16:20 16:20 16:20 WBC 7.9 RBC 5.30 Hgb 16.6 H Hct 48.6 MCV 91.7 MCH 31.3 MCHC 34.2 RDW Std Deviation 44.2 H RDW Coeff of Richard 13.2 Plt Count 319 MPV 9.4 Immature Gran % (Auto) 2.300 H Neut % (Auto) 71.8 H Lymph % (Auto) 16.7 L [place]son % (Auto) 8.3 Eos % (Auto) 0.1 Baso % (Auto) 0.8 Absolute Neuts (auto) 5.7 Absolute Lymphs (auto) 1.31 Nucleated RBC % 0 Specimen Type Sample Site VBG pH VBG pO2 VBG O2 Sat (Calc) VBG O2 Content VBG Base Excess POC Mix VBG pCO2 Pt Tmp O2 Delivery Device Blood Gas Notified Whom Blood Gas Notified Time Sodium 137 Potassium 3.9 Chloride 101 Carbon Dioxide 14.0 L Anion Gap 22 H BUN 19 H Creatinine 1.31 H Estim Creat Clear Calc 74.05 Est GFR (MDRD) Af Amer 89 Est GFR (MDRD) Non-Af 74 BUN/Creatinine Ratio 14.5 Glucose 259 H Calcium 10.3 H Total Bilirubin 0.50 AST 227 H ALT 341 H Alkaline Phosphatase 192 H Total Protein 7.7 Albumin 3.9 Globulin 3.8 Albumin/Globulin Ratio 1.0 Urine Color Urine Clarity Urine pH Ur Specific [place] Urine Protein Urine Glucose (UA) Urine Ketones Urine Occult Blood Urine Nitrite Urine Bilirubin Urine Urobilinogen Ur Leukocyte Esterase Urine RBC Urine WBC Ur Squamous Epith Cells Urine Bacteria Hyaline Casts Fine Granular Casts Urine Mucus Acetone Level SMALL H POC Glucose 07/24/19 07/24/19 07/24/19 16:20 17:03 18:03 WBC RBC Hgb Hct MCV MCH MCHC RDW Std Deviation RDW Coeff of Richard Plt Count MPV Immature Gran % (Auto) Neut % (Auto) Lymph % (Auto) Anson % (Auto) Eos % (Auto) Baso % (Auto) Absolute Neuts (auto) Absolute Lymphs (auto) Nucleated RBC % Specimen Type CORRIE Sample Site L Brachial VBG pH 7.38 VBG pO2 69 H VBG O2 Sat (Calc) 94 H VBG O2 Content 17 L VBG Base Excess -9 L POC Mix VBG pCO2 Pt Tmp 26.7 L O2 Delivery Device Room Air Blood Gas Notified Whom ED Blood Gas Notified Time 1658 Sodium Potassium Chloride Carbon Dioxide Anion Gap BUN Creatinine Estim Creat Clear Calc Est GFR (MDRD) Af Amer Est GFR (MDRD) Non-Af BUN/Creatinine Ratio Glucose Calcium Total Bilirubin AST ALT Alkaline Phosphatase Total Protein Albumin Globulin Albumin/Globulin Ratio Urine Color Yellow Urine Clarity Clear Urine pH 5.0 Ur Specific [place] 1.025 Urine Protein 30 H Urine Glucose (UA) 1000 H Urine Ketones 50 H Urine Occult Blood Negative Urine Nitrite Negative Urine Bilirubin Negative Urine Urobilinogen Normal Ur Leukocyte Esterase Negative Urine RBC 0 SEEN Urine WBC 0 SEEN Ur Squamous Epith Cells 0 SEEN Urine Bacteria 0 SEEN Hyaline Casts 0-5 SEEN Fine Granular Casts 0-5 SEEN Urine Mucus 0 SEEN Acetone Level POC Glucose 144 H - Medical Decision Making Patient is feeling much better after IV fluids and Zofran. He took insulin just prior to getting here, which is probably why his blood sugar now is in the low- mid 200s instead of over 600. We rechecked it later after IV fluids and it is down to the 140s-120s. He is able to take oral fluids. He is not dyspneic. His labs show no acidosis although his ketone level is a little elevated and his anion gap is a little elevated. I do not think he is in DKA. He is well- appearing, not tachypnea, does not appear to be trying to compensate. I think at this time the most appropriate treatment is to provide supportive care with Zofran, he was given 2 L of fluid, there are no infections indicating antibiotics present, but he does probably have viral gastroenteritis given the history. He knows to continue using his insulin even if he is not eating, appropriate for what ever his sugar is. We discussed reasons to return and he is comfortable going home. ED Disposition - Plan for ED Patient: Disposition: Home or Assisted Living Diagnosis: Hyperglycemia due to type 1 diabetes mellitus, Viral gastroenteritis, Mild dehydration Instructions: VOMITING AND DIARRHEA, Nonspecific (Adult) Prescriptions: Ondansetron [Zofran] 8 mg PO Q8H PRN PRN #12 tab PRN Reason: Nausea Transmission Status: Pending to [facility]/pharmacy #[id number] Referrals: Scott Gomez MD [Primary Care Provider] - 3-5 Days if not improving
[2019-07-24] MEDS: 0.9% Normal Saline 1,000 ML 1000 ML IV ×2 (16:19→16:57)
[2019-07-24 16:25] LABS: Bacteria 0 SEEN /hpf (None Seen); Mucous, Urine 0 SEEN /hpf (<or=2+); Red Blood Cells-Urine 0 SEEN /hpf (0-5); Squamous Epithelial Cells - UA 0 SEEN /hpf (0-5); White Blood Cells 0 SEEN /hpf (0-5)
[2019-07-24 16:27] LABS: Absolute Lymphocyte Count 1.31 X10^3/uL (0.83-4.51); Absolute Neutrophil Count 5.7 X10^3/uL (2.0-7.7); Basophil# 0.06 X10^3/uL; Basophil% 0.8 % (0-1); Eosinophil# 0.01 X10^3/uL; Eosinophils% 0.1 % (0-5); Hematocrit 48.6 % (40-54); Hemoglobin 16.6 g/dL (13.0-16.5); Lymphocyte # 1.31 X10^3/ul (4.0); Lymphocyte % 16.7 % (19-41); Mean Corp Hgb Conc 34.2 g/dL (32-36); Mean Corpuscular Hgb 31.3 pg (27.0-32.0); Mean Corpuscular Volume 91.7 fL (80-94); Mean Platelet Vol. 9.4 fl (6.2-12.0); Monocyte# 0.65 X10^3/uL; Monocyte% 8.3 % (0-10); NRBC Flagged by Analyzer 0 % (0-5); Neutrophil # 5.65 X10^3/uL (2.7-7.7); Neutrophil % 71.8 % (47-70); Platelet Count 319 K/mm3 (150-450); RBC Distribution Width CV 13.2 % (11.6-14.6); RBC Distribution Width SD 44.2 fl (35.1-43.9); White Blood Count 7.9 K/mm3 (4.4-11.0)
[2019-07-24 16:29] LABS: Color, Urine Yellow (Yellow); Glucose, Dipstick 1000 mg/dl (Normal); Ketone-Dipstick 50 mg/dl (Negative); Leukocyte Esterase-Dipstick Negative /ul (Negative); Nitrite-Dipstick Negative (Negative); Occult Blood-Urine Negative /ul (Negative); Protein-Dipstick 30 mg/dl (Negative); Specific Gravity, Urine 1.025 (1.002-1.030); Urine Bilirubin Dipstick Negative (Negative); Urine Clarity Clear (Clear); Urine Urobilinogen Normal (Normal)
[2019-07-24 16:44] LABS: AST(SGOT) 227 U/L (15-37); Alanine Aminotransfer ALT/SGPT 341 U/L (16-61); Albumin, Serum 3.9 g/dL (3.2-5.0); Alkaline Phosphatase 192 U/L (45-117); Anion Gap 22 (5-15); BUN 19 mg/dL (7-18); BUN/Creat Ratio 14.5 RATIO (10-20); Calcium,Total 10.3 mg/dL (8.5-10.1); Chloride 101 mmol/L (98-107); Creatinine, Serum 1.31 mg/dL (0.70-1.30); EST Glomerular Filtration Rate 74 mL/min (>60); Est Glom Filt Rate - Afr Amer 89 mL/min (>60); Estimated Creatinine Clearance 74.05 ml/min; Globulin 3.8 g/dL (2.2-4.2); Glucose 259 mg/dL (74-106); Potassium 3.9 mmol/L (3.5-5.1); Protein, Total 7.7 g/dL (6.4-8.2); Sodium Level 137 mmol/L (136-145)
[2019-07-24] MEDS: Morphine 4 MG/ML Syringe IV (16:57)
[2019-07-24 17:10] LABS: Blood Gas Specimen Type VEN; O2 Delivery Device Room Air; SITE L Brachial; Time Given 1658; VBG BASE EXCESS -9 mmol/L (-1.0-3.5); VBG Bicarbonate 16 mmol/L (22-26); VBG Oxygen Content 17 mmol/L (23-33); VBG PO2 69 mmHg (25-40); VBG SO2 94 % (50-70); VBG pCO2 26.7 mmHg (41-51); VBG pH 7.38 (7.32-7.42)
[2019-07-24 17:15] LABS: Fine Granular Cast- Urine 0-5 SEEN /lpf (0-5); Hyaline Cast 0-5 SEEN /lpf (0-5)
[2019-07-24 18:05] VITALS: BP 111/76; PULSE 87; RESP 16; O2SAT 99
[2019-07-24 18:11] LABS: Bedside Glucose 144 mg/dL (70-110)
[2019-07-24 18:41] VITALS: PULSE 84; RESP 15; O2SAT 98
== END 2019-07-24 18:41 | disposition home or self-care (01) ==
PROVIDERS: Emergency Provider Emergency Medicine; Family Provider Pediatrics; PCP Pediatrics
DX: E10.65 Type 1 diabetes mellitus with hyperglycemia (principal); Z79.4 Long term (current) use of insulin; A08.4 Viral intestinal infection, unspecified; E86.0 Dehydration; K76.0 Fatty (change of) liver, not elsewhere classified
CPT/HCPCS: 80053; 81001; 82009; 82803; 82962; 85025; 96361; 96374; 99283; J7030; A4216

== ENCOUNTER 2019-07-26 00:13 | Inpatient (IN) | payer MEDICAID, SELFPAY ==
[2019-07-26] VITALS (28 sets, daily range): BP systolic 92–130; BP diastolic 35–78; PULSE 52–120; RESP 14–28; TEMP 36.6–37; O2SAT 97–100; BMI 18.7; BMI 19.3
--- NOTE | 2019-07-26 00:23 | EKG12_ITS ---
Test Reason : CP Blood Pressure : / mmHG Vent. Rate : 117 BPM Atrial Rate : 117 BPM P-R Int : 120 ms QRS Dur : 086 ms QT Int : 318 ms P-R-T Axes : 071 046 018 degrees QTc Int : 443 ms Sinus tachycardia Right atrial enlargement Nonspecific T wave abnormality Abnormal ECG Confirmed by RONALD OLMEDO, JONATHAN ([id number]), video effects editor CHRISSIE CACERES ([id number]) on 07/29/2019 1:54:20 PM Referred By: Carolina Small Confirmed By:JONATHAN CARDENAS MD
[2019-07-26 00:40] LABS: Bedside Glucose > 500 mg/dL (70-110)
--- NOTE | 2019-07-26 00:47 | RAD_ITS ---
STUDY: X-RAY CHEST REASON FOR EXAM: Male, 18 years old. Cough and chest pain TECHNIQUE: Single AP portable view of the chest. COMPARISON: 04/22/2019 FINDINGS: The lungs are clear and expanded. There is no demonstrated pleural abnormality. Normal size heart. Normal mediastinum and amber. Normal visualized pulmonary arteries. Normal visualized aortic arch and descending thoracic aorta. Normal visualized thoracic spine. Normal visualized ribs, clavicles, and shoulders. There is no demonstrated abnormality of the visualized soft tissue structures of the upper abdomen. RAD/Chest 1 View (Portable) IMPRESSION: Normal x-ray examination of the chest. Electronically Signed: Zak Pearce MD at 1:29 EST Tel , Service support ,
--- NOTE | 2019-07-26 00:51 | ED.VISSUMM ---
- ER Visit Summary Date of Service: 07/26/19 Chief Complaint: Vomiting History of Present Illness: The patient is a 18 M presenting with nausea and vomiting. Patient was seen in the ED yesterday and given Zofran. He continues to have vomiting at home. He is an insulin-dependent diabetic. He is unable to keep anything down. He complains of diffuse chest pain and abdominal pain. Denies fever. Denies other complaints. Physical Examination: Vitals are stable. Heart rate 120. Patient is afebrile. Alert no acute distress. HEENT exam dry mucous membranes Neck is supple. Lungs are clear and equal bilaterally. Chest tender to palpation with no crepitus Heart is regular and tachycardic. Abdomen is soft diffuse tenderness with no rebound or guarding Extremities are unremarkable. Skin is warm and dry. No focal neurologic deficit. Remainder of exam is unremarkable. Emergency Department Course and Treatment: EKG sinus tachycardia rate of 118. Patient was given IV fluids, morphine, Zofran. He continues to have nausea and was given Phenergan IV. CBC unremarkable. Chemistries show sodium 133, CO2 8, anion gap 28, glucose 695. Positive large ketones. Total bili 1.3. Alk phos 240, ALT 324, AST 204. Urinalysis shows glucose and ketones. Patient was started on insulin drip. Discussed with hospitalist for admission. Disposition: Admission Impression: DKA This note was generated with [employer] dictation software. It may contain incorrect words, spelling, and punctuation that were not noted in review of the chart prior to signing ED Disposition - Plan for ED Patient: Referrals: Scott Gomez MD [Primary Care Provider] -
[2019-07-26 00:55] LABS: Absolute Lymphocyte Count 2.72 X10^3/uL (0.83-4.51); Absolute Neutrophil Count 5.1 X10^3/uL (2.0-7.7); Basophil# 0.08 X10^3/uL; Basophil% 0.9 % (0-1); Eosinophil# 0.03 X10^3/uL; Eosinophils% 0.4 % (0-5); Hematocrit 53.4 % (40-54); Hemoglobin 16.9 g/dL (13.0-16.5); Lymphocyte # 2.72 X10^3/ul (4.0); Lymphocyte % 32.1 % (19-41); Mean Corp Hgb Conc 31.6 g/dL (32-36); Mean Corpuscular Volume 97.8 fL (80-94); Monocyte% 4.7 % (0-10); NRBC Flagged by Analyzer 0 % (0-5); Neutrophil # 5.08 X10^3/uL (2.7-7.7); Neutrophil % 59.9 % (47-70); Platelet Count 374 K/mm3 (150-450); RBC Distribution Width CV 13.2 % (11.6-14.6); RBC Distribution Width SD 47.8 fl (35.1-43.9); Red Blood Count 5.46 M/mm3 (4.6-6.2); White Blood Count 8.5 K/mm3 (4.4-11.0)
[2019-07-26] MEDS: 0.9% Normal Saline 1,000 ML 1000 ML IV ×2 (01:01→01:19)
[2019-07-26] MEDS: Morphine 4 MG/ML Syringe IV (01:02)
[2019-07-26] MEDS: Ondansetron 4 MG/2 ML Vial IV (01:02)
[2019-07-26 01:09] LABS: Bacteria 0 SEEN /hpf (None Seen); Mucous, Urine 0 SEEN /hpf (<or=2+); Red Blood Cells-Urine 0 SEEN /hpf (0-5); Squamous Epithelial Cells - UA 0 SEEN /hpf (0-5); White Blood Cells 0 SEEN /hpf (0-5)
[2019-07-26 01:13] LABS: Color, Urine Straw (Yellow); Glucose, Dipstick 1000 mg/dl (Normal); Leukocyte Esterase-Dipstick Negative /ul (Negative); Nitrite-Dipstick Negative (Negative); Occult Blood-Urine Negative /ul (Negative); Protein-Dipstick 15 mg/dl (Negative); Urine Bilirubin Dipstick Negative (Negative); Urine Clarity Clear (Clear); Urine Urobilinogen Normal (Normal)
[2019-07-26 01:16] LABS: ALB/GLOB Ratio 1.1 RATIO (0.9-2.4); AST(SGOT) 204 U/L (15-37); Alanine Aminotransfer ALT/SGPT 324 U/L (16-61); Albumin, Serum 4.3 g/dL (3.2-5.0); Alkaline Phosphatase 240 U/L (45-117); Anion Gap 28 (5-15); BUN 18 mg/dL (7-18); BUN/Creat Ratio 14.9 RATIO (10-20); Calcium,Total 9.5 mg/dL (8.5-10.1); Chloride 97 mmol/L (98-107); Creatinine, Serum 1.21 mg/dL (0.70-1.30); EST Glomerular Filtration Rate 81 mL/min (>60); Est Glom Filt Rate - Afr Amer 98 mL/min (>60); Estimated Creatinine Clearance 76.85 ml/min; Glucose 695 mg/dL (74-106); Potassium 4.6 mmol/L (3.5-5.1); Protein, Total 8.3 g/dL (6.4-8.2); Sodium Level 133 mmol/L (136-145)
[2019-07-26 01:16] LABS: Ketone-Dipstick 150 mg/dl (Negative)
[2019-07-26] MEDS: proMETHazine 25 MG/ML Syringe 6.25 MG IV (01:31)
--- NOTE | 2019-07-26 02:02 | PCM.HP.STD ---
Problem List (1) Anxiety and depression Status: Chronic (2) Diabetic ketoacidosis Status: Acute Qualifiers: Diabetes mellitus type: type 1 Diabetes mellitus complication detail: without coma Qualified Code(s): E10.10 - Type 1 diabetes mellitus with ketoacidosis without coma (3) GERD (gastroesophageal reflux disease) Status: Chronic Qualifiers: Esophagitis presence: esophagitis presence not specified Qualified Code(s): K21.9 - Gastro-esophageal reflux disease without esophagitis (4) DM I (diabetes mellitus, type I), uncontrolled Status: Chronic Qualifiers: Glycemic state: with hyperglycemia Qualified Code(s): E10.65 - Type 1 diabetes mellitus with hyperglycemia History of Present Illness Date of Admission: 07/26/19 Chief Complaint: diarrhea - 2 weeks, abdominal pain, nausea and vomiting ongoing for 3 to 4 days The patient is a 18 year old M with past medical history of type I DM on insulin, anxiety/depression who comes in with complaints of diarrhea ongoing for 2 weeks as well as nausea and vomiting with abdominal pain ongoing for 3 to 4 days. Patient states almost all his family members have acute gastroenteritis. He recently saw his primary care doctor who confirmed the viral gastroenteritis. He presented to the emergency department on 07/24/19 with persistent abdominal pain, nausea and vomiting. Work-up at that time found him to have elevated anion gap but patient was able to drink fluids and he was encouraged to continue to keep himself hydrated and use his insulin. Patient returned with worsening abdominal discomfort, nausea and vomiting. He denied any fever or chills. Vitals in the ED showed temperature 98.6 F, heart rate 100, blood pressure 130/75, respiratory rate 18, SPO2 is 98% on room air. BC count 8.5, hemoglobin 16.9, platelet count 374, sodium 133, potassium 4.6, chloride 97, bicarbonate 8, anion gap 28 BUN 18, creatinine 1.21, which is his baseline, glucose is 695, AST is 204, ALT 32 4, ALP is 240 she is close to his baseline. UA shows glucosuria with large acetones. Chest x-ray is unremarkable. Past Medical History Past Medical History (Chronic Problems): Chronic Problems (Last Reviewed 04/22/19 @ 11:28 by Pranay Solitario MD) Anxiety and depression (Chronic) GERD (gastroesophageal reflux disease) (Chronic) Fatty liver (Chronic) Suicidal ideations (Chronic) DM I (diabetes mellitus, type I), uncontrolled (Chronic) Medical History: Medical History (Last Reviewed 04/22/19 @ 11:28 by Pranay Solitario MD) Anxiety disorder F41.9 Back problem M53.9 Bone fracture T14.8XXA Diabetes type 1, uncontrolled E10.65 Dx : age 2 Last exacerbation : DKA : 01/31 Hypoglycemic episode : never ER visit : 01/31 Hearing problem H91.90 Liver disease K76.9 Seizure R56.9 Vision problem H54.7 Allergies No Known Allergies Allergy (Verified 07/26/19 00:18) Home Medications: Ambulatory Orders Medication Instructions Recorded Insulin Lispro [Humalog KwikPen] See Protocol SQ ACHS 08/21/18 Insulin Glargine,Hum.rec.anlog 40 - 45 unit SQ BIDAC 03/01/19 [Basaglar Kwikpen U-100] Ondansetron [Zofran] 8 mg PO Q8H PRN PRN #12 tab 07/24/19 Surgical History: Surgical History (Last Reviewed 04/22/19 @ 11:28 by Pranay Solitario MD) S/p bilateral myringotomy with tube placement Z96.22 Surgical History: - - BL ear tubes. Psychiatric History: Anxiety, Depression, Prior suicide attempt Lives: With Family Smoking Status: Never smoker Tobacco Use: Non-smoker Alcohol: None Drugs: None - *Family History Maternal Family History: Family History (Last Reviewed 04/22/19 @ 11:28 by Pranay Solitario MD) Mother Kidney disease History Items: Heart Disease, Renal Disease Paternal Family History: Family History (Last Reviewed 04/22/19 @ 11:28 by Pranay Solitario MD) Mother Kidney disease History Items: Heart Disease, - - Paternal family males w/ frequent hearing disorder. Review of Systems Constitutional: Reports: Anorexia, Malaise, Weakness, Fatigue. Denies: Chills, Fever, Weight Change Eyes: Denies: Blurred vision, Cataracts, Conjunctivae Inflammation, Pain, Redness, Vision Change HEENT: Denies: Head Aches, Hearing Changes, Nasal bleeding, Sinus Congestion, Sinus Drainage Cardiovascular: Denies: Chest Pain, Claudication, Orthopnea, Palpitations Respiratory: Denies: Cough, Shortness of breath at rest, Sputum production Gastrointestinal: Reports: Abdominal Pain, Diarrhea, Nausea, Vomiting. Denies: Hematemesis, Hematochezia Genitourinary: Denies: Dysuria, Frequency, Incontinence Musculoskeletal: Denies: Joint Pain, Joint stiffness, Joint swelling, Joint Tenderness Skin: Denies: Rash, Wounds Neurological: Denies: Difficulty swallowing, Focal weakness, Numbness, Tingling Psychiatric: Denies: Anxiety, Depression, Homicidal Ideations, Suicidal Ideations Hematologic/ Lymphatic: Denies: Easy Bruising, Easy Bleeding VTE Information - Inpt Only VTE Present on Admission: No VTE Pharm Prophylaxis ordered?: Yes - Physical Exam Vitals/I&O's: Vital Signs Temp Pulse Resp BP Pulse Ox 98.6 F 102 H 28 H 107/56 L 100 07/26/19 00:15 07/26/19 01:47 07/26/19 01:47 07/26/19 01:47 07/26/19 01:47 Oxygen Delivery Method Room Air Weight: 55.792 kg Body Mass Index (BMI) 18.7 Finger Stick Blood Glucose 144 Intake and Output for Last 24 Hours 07/24/19 07/25/19 07/26/19 23:59 23:59 23:59 Intake Total 300 / 300 Balance 300 / 300 General: Alert, Oriented x3, Cooperative, - - ill-looking, appears tired, HEENT: Atraumatic, PERRLA, EOMI, Normocephalic Oral: Dry Mucosa Neck: Supple Lungs: Clear to auscultation, Normal air movement Cardiovascular: Regular rate, Regular Rhythm, Normal S1, Normal S2, Tachycardic Abdomen: Bowel Sounds Present, Soft, Guarding - but no rebound tenderness, Tender - generalised Extremities: No edema Skin: No rashes, No breakdown Musculoskeletal: No Tenderness to Palpation of Joints or Extremities Lymphatic: No Cervical, Supraclavicular, or Inguinal Adenopathy Neurological: Cranial nerves II-XII grossly intact, Neuro grossly intact Psych/Mental Status: Normal Affect, Appropriate Laboratory Results 07/26/19 00:30: WBC 8.5, RBC 5.46, Hgb 16.9 H, Hct 53.4, MCV 97.8 H D, MCH 31.0, MCHC 31.6 L, RDW Std Deviation 47.8 H, RDW Coeff of Richard 13.2, Plt Count 374, MPV 10.0, Immature Gran % (Auto) 2.000 H, Neut % (Auto) 59.9, Lymph % (Auto) 32.1, [place] % (Auto) 4.7, Eos % (Auto) 0.4, Baso % (Auto) 0.9, Absolute Neuts (auto) 5.1, Absolute Lymphs (auto) 2.72, Nucleated RBC % 0 07/26/19 00:30: Sodium 133 L, Potassium 4.6, Chloride 97 L, Carbon Dioxide 8.0 L*, Anion Gap 28 H, BUN 18, Creatinine 1.21, Estim Creat Clear Calc 76.85, Est GFR (MDRD) Af Amer 98, Est GFR (MDRD) Non-Af 81, BUN/Creatinine Ratio 14.9, Glucose 695 H*, Calcium 9.5, Total Bilirubin 1.30 H, AST 204 H, ALT 324 H, Alkaline Phosphatase 240 H, Total Protein 8.3 H, Albumin 4.3, Globulin 4.0, Albumin/Globulin Ratio 1.1 07/26/19 00:30: Acetone Level LARGE H 07/26/19 00:33: POC Glucose > 500 H* 07/26/19 01:05: Urine Color Straw, Urine Clarity Clear, Urine pH 5.0, Ur Specific [place] 1.020, Urine Protein 15 H, Urine Glucose (UA) 1000 H, Urine Ketones 150 H, Urine Occult Blood Negative, Urine Nitrite Negative, Urine Bilirubin Negative, Urine Urobilinogen Normal, Ur Leukocyte Esterase Negative, Urine RBC 0 SEEN, Urine WBC 0 SEEN, Ur Squamous Epith Cells 0 SEEN, Urine Bacteria 0 SEEN, Urine Mucus 0 SEEN Current Medications Dextrose (D50w Syringe) 0 gm IV X1 PRN; Protocol PRN Reason: Hypoglycemia Protocol Sodium Chloride () 1,000 mls @ 1,000 mls/hr IV .Q1H [facility] Stop: 07/26/19 02:49 Last Admin: 07/26/19 01:19 Dose: 1,000 mls/hr Documented by: Insulin Human Lispro 100 unit/ (Sodium Chloride) 100 mls @ 5.579 mls/hr IV .[id number] [facility]; Protocol Last Admin: 07/26/19 01:36 Dose: 0.1 units/kg/hr, 5.6 mls/hr Documented by: Assessment/Plan All Active Problems (Last Reviewed 04/22/19 @ 11:28 by Pranay Solitario MD) Diabetic ketoacidosis (Acute) DKA, type 1 (Acute) DKA (diabetic ketoacidoses) (Acute) 18 year old M with past medical history of type I DM on insulin, anxiety/depression who comes in with complaints of diarrhea ongoing for 2 weeks as well as nausea and vomiting with abdominal pain ongoing for 3 to 4 days. 1. Acute DKA, in a known type I diabetic with h/o recurrent DKAs Likely etiology for current DKA could be #2. Patient states he has enough insulin and supplies at home Admitting bicarbonate was 8.0, anion gap was 28 Started on insulin drip, will continue same with every 4 BMP, insulin protocol 2. Acute gastroenteritis, likely viral, will continue symptomatic/supportive treatment Will have low threshold to test stools if diarrhea is persistent during the hospital stay 3. Anxiety/depression, not on medications 4. Elevated liver enzymes, unclear etiology for now, total bilirubin is elevated at 1.30 compared to previous, AST and ALT all appear to be slightly increased compared to previous History of fatty liver diagnosed by ultrasound in July 2017 Will check hepatitis panel, CMV, EBV, acetaminophen and salisylate level, toxicology, ultrasound of liver 5. DVT PPx- low risk, early ambulation recommended Code Visit Inpatient E&M: 83555 Init Hosp L2
[2019-07-26 02:21] LABS: Bedside Glucose > 500 mg/dL (70-110)
[2019-07-26] MEDS: 0.9% Normal Saline 1,000 ML 250 ML IV (02:41)
[2019-07-26 03:56] LABS: Bedside Glucose > 500 mg/dL (70-110)
[2019-07-26 03:56] LABS: Bedside Glucose 442 mg/dL (70-110)
--- NOTE | 2019-07-26 04:48 | US_ITS ---
STUDY: ABDOMINAL ULTRASOUND - RIGHT UPPER QUADRANT REASON FOR VISIT: Male, 18 years old ABNORMAL LABS TECHNIQUE: Ultrasound evaluation of the right upper quadrant was performed with real-time and static cancino-scale imaging. TECHNICAL QUALITY: Adequate. COMPARISON: CT abdomen and pelvis 05/10/2016. FINDINGS: Liver: The liver measures 23.2 cm. There is increased echogenicity consistent with fatty infiltration. The bile ducts are within normal limits. There is hepatic color flow. The direction of portal flow is hepatopetal. There is no demonstrated mass lesion. Gallbladder: Normal distended gallbladder. The gallbladder wall measures 2 mm. There is a negative sonographic Skinner''s sign. There is no pericholecystic fluid. There are no gallstones. Common Bile Duct (C.B.D.): The common bile duct measures 3 mm. Pancreas: Normal size of the head, body and tail of the pancreas. There is normal echogenicity of the pancreas. There is no demonstrated pancreatic mass or cyst. Right Kidney: Normal size of the right kidney. The right kidney measures 11.4 x 5.7 x 4.5 cm. Normal renal cortex. The right cortex measures 1.5 cm. There is no demonstrated renal mass or cyst. There is no right hydronephrosis. US/Abdomen Limited IMPRESSION: Hepatic steatosis and hepatomegaly. Electronically Signed: Hussein Vasques, at 1:32 EST Tel , Service support ,
[2019-07-26 04:51] LABS: Absolute Lymphocyte Count 2.15 X10^3/uL (0.83-4.51); Absolute Neutrophil Count 6.3 X10^3/uL (2.0-7.7); Basophil# 0.05 X10^3/uL; Basophil% 0.5 % (0-1); Eosinophil# 0.01 X10^3/uL; Eosinophils% 0.1 % (0-5); Hematocrit 45.3 % (40-54); Hemoglobin 14.4 g/dL (13.0-16.5); Lymphocyte # 2.15 X10^3/ul (4.0); Lymphocyte % 22.9 % (19-41); Mean Corp Hgb Conc 31.8 g/dL (32-36); Mean Corpuscular Hgb 30.6 pg (27.0-32.0); Mean Corpuscular Volume 96.4 fL (80-94); Mean Platelet Vol. 9.4 fl (6.2-12.0); Monocyte# 0.69 X10^3/uL; Monocyte% 7.4 % (0-10); NRBC Flagged by Analyzer 0 % (0-5); Neutrophil # 6.27 X10^3/uL (2.7-7.7); Platelet Count 268 K/mm3 (150-450); RBC Distribution Width CV 13.2 % (11.6-14.6); RBC Distribution Width SD 47.5 fl (35.1-43.9); White Blood Count 9.4 K/mm3 (4.4-11.0)
[2019-07-26 05:18] LABS: AST(SGOT) 116 U/L (15-37); Alanine Aminotransfer ALT/SGPT 237 U/L (16-61); Alkaline Phosphatase 161 U/L (45-117); Anion Gap 24 (5-15); BUN 14 mg/dL (7-18); BUN/Creat Ratio 11.9 RATIO (10-20); Calcium,Total 7.8 mg/dL (8.5-10.1); Chloride 112 mmol/L (98-107); Creatinine, Serum 1.18 mg/dL (0.70-1.30); EST Glomerular Filtration Rate 83 mL/min (>60); Est Glom Filt Rate - Afr Amer 101 mL/min (>60); Estimated Creatinine Clearance 81.21 ml/min; Glucose 311 mg/dL (74-106); Potassium 4.3 mmol/L (3.5-5.1); Sodium Level 142 mmol/L (136-145)
[2019-07-26 05:42] LABS: Amphetamine Urine VISTA NEGATIVE (<1000 ng/mL); Barbiturate Urine VISTA NEGATIVE (< 200 ng/mL); Benzodiazepine Urine VISTA NEGATIVE (< 200 ng/mL); Cocaine Urine VISTA NEGATIVE (< 300 ng/mL); Ecstacy Urine VISTA NEGATIVE (< 500 ng/mL); Methadone Urine VISTA NEGATIVE (< 300 ng/mL); PCP Urine VISTA NEGATIVE (< 25 ng/mL); THC Urine VISTA NEGATIVE (< 50 ng/mL); Vista UDS pH Range 5
[2019-07-26 05:51] LABS: Bedside Glucose 218 mg/dL (70-110)
[2019-07-26 06:11] LABS: Bedside Glucose 292 mg/dL (70-110)
[2019-07-26 07:15] LABS: Bedside Glucose 324 mg/dL (70-110)
[2019-07-26 08:06] LABS: Bedside Glucose 285 mg/dL (70-110)
--- NOTE | 2019-07-26 08:08 | CON.PCM_ITS ---
Problem List (1) Anxiety and depression Status: Chronic (2) Diabetic ketoacidosis Status: Acute Qualifiers: Diabetes mellitus type: type 1 Diabetes mellitus complication detail: without coma Qualified Code(s): E10.10 - Type 1 diabetes mellitus with ketoacidosis without coma (3) GERD (gastroesophageal reflux disease) Status: Chronic Qualifiers: Esophagitis presence: esophagitis presence not specified Qualified Code(s): K21.9 - Gastro-esophageal reflux disease without esophagitis (4) DKA, type 1 Status: Acute Qualifiers: Diabetes mellitus complication detail: without coma Qualified Code(s): E10.10 - Type 1 diabetes mellitus with ketoacidosis without coma (5) Fatty liver Status: Chronic Reason for Consult Date of Consultation: 07/26/19 Reason for Consultation: DKA History of Present Illness: The patient is a 18 year old M, with past medical history listed below, who presented to [facility] on 07/26/2019 secondary to nausea and vomiting with associated diffuse chest and abdominal pain. Patient reported onset approximately 24 to 48 hours prior to presentation. Patient denies any other constitutional symptoms such as fever, chills, lower extremity edema or headache. Patient is a known insulin-dependent diabetic and states his last DKA was 2 to 3 months ago. Patient denied any significant alcohol or other carbohydrate load to me. In the ER, patient was noted to be tachycardic at 118 bpm and chest x-ray was unremarkable. Laboratory work-up showed a glucose of 695 with an anion gap of 28. Slightly elevated liver enzymes were noted and urinalysis was not consistent with infection. Patient was placed on an insulin drip, given fluid boluses and admitted to the intensive care unit for further evaluation. Since being in the intensive care unit, patient reports subjective improvement in overall condition. Patient is reporting dry mouth, but states his nausea and vomiting is much improved compared to previous. Patient is denying any chest pain, abdominal pain, nausea or vomiting at this time. Patient denies any trauma. Patient states this is typical of his DKA episodes. Review of systems otherwise negative from a constitutional, HEENT, respiratory, cardiovascular, GI, genitourinary, musculoskeletal, skin, neurologic, psychiatric and hematologic system unless stated above. Past Medical History Past Medical History (Chronic Problems): Chronic Problems (Last Reviewed 04/22/19 @ 11:28 by Pranay Solitario MD) Anxiety and depression (Chronic) GERD (gastroesophageal reflux disease) (Chronic) Fatty liver (Chronic) Suicidal ideations (Chronic) DM I (diabetes mellitus, type I), uncontrolled (Chronic) Medical History: Medical History (Last Reviewed 04/22/19 @ 11:28 by Pranay Solitario MD) Anxiety disorder F41.9 Back problem M53.9 Bone fracture T14.8XXA Diabetes type 1, uncontrolled E10.65 Dx : age 2 Last exacerbation : DKA : 01/31 Hypoglycemic episode : never ER visit : 01/31 Hearing problem H91.90 Liver disease K76.9 Seizure R56.9 Vision problem H54.7 Allergies No Known Allergies Allergy (Verified 07/26/19 00:18) Home Medications: Ambulatory Orders Medication Instructions Recorded Insulin Lispro [Humalog KwikPen] See Protocol SQ ACHS 08/21/18 Insulin Glargine,Hum.rec.anlog 40 - 45 unit SQ BIDAC 03/01/19 [Basaglar Kwikpen U-100] Ondansetron [Zofran] 8 mg PO Q8H PRN PRN #12 tab 07/24/19 Surgical History: Surgical History (Last Reviewed 04/22/19 @ 11:28 by Pranay Solitario MD) S/p bilateral myringotomy with tube placement Z96.22 Surgical History: - - BL ear tubes. Psychiatric History: Anxiety, Depression, Prior suicide attempt Lives: With Family Smoking Status: Never smoker Tobacco Use: Non-smoker Alcohol: None Drugs: None - *Family History Maternal Family History: Family History (Last Reviewed 04/22/19 @ 11:28 by Pranay Solitario MD) Mother Kidney disease History Items: Heart Disease, Renal Disease Paternal Family History: Family History (Last Reviewed 04/22/19 @ 11:28 by Pranay Solitario MD) Mother Kidney disease History Items: Heart Disease, - - Paternal family males w/ frequent hearing disorder. Review of Systems Comment: See HPI Objective: Chest x-ray was personally reviewed and shows no acute infiltrates - Physical Exam Vitals/I&O's: Vital Signs Temp Pulse Resp BP Pulse Ox 36.6 C 90 20 H 99/50 L 98 07/26/19 04:00 07/26/19 06:00 07/26/19 06:00 07/26/19 06:00 07/26/19 06:00 Oxygen Delivery Method Room Air Weight: 57.5 kg Body Mass Index (BMI) 19.3 Finger Stick Blood Glucose 144 Intake and Output for Last 24 Hours 07/24/19 07/25/19 07/26/19 23:59 23:59 23:59 Intake Total 2173. / 217. Output Total 0 / 0 Balance 2172. / 2172. General: Alert, Oriented x3, Cooperative, No apparent distress, - - Thin build. HEENT: Atraumatic, PERRLA, EOMI, Normocephalic, - - No scleral icterus or injection noted Oral: No Gingival or Mucosal Lesions/ Ulcerations, Dry Mucosa Neck: Supple, No JVD, No Nodes, Trachea Midline Lungs: Clear to auscultation, Normal air movement, No rhonchi, No wheeze, No rales, - - Symmetric expansion. No dullness to percussion. Cardiovascular: Regular rate, Regular Rhythm, Normal S1, Normal S2, No murmurs, No rub noted, No Gallop Abdomen: Bowel Sounds Present, Soft, Non Tender, Non-Distended Extremities: No clubbing, No cyanosis, No edema, Capillary Refill Less than 3 Seconds Skin: No rashes, No breakdown Musculoskeletal: No Tenderness to Palpation of Joints or Extremities, Muscle Wasting Lymphatic: No Cervical, Supraclavicular, or Inguinal Adenopathy Neurological: Cranial nerves II-XII grossly intact, Neuro grossly intact, Motor Exam 5/5 strength throughout Psych/Mental Status: Alert and oriented to time, place, person, mood and affect Laboratory Results 07/26/19 00:30: WBC 8.5, RBC 5.46, Hgb 16.9 H, Hct 53.4, MCV 97.8 H D, MCH 31.0, MCHC 31.6 L, RDW Std Deviation 47.8 H, RDW Coeff of Richard 13.2, Plt Count 374, MPV 10.0, Immature Gran % (Auto) 2.000 H, Neut % (Auto) 59.9, Lymph % (Auto) 32.1, [place] % (Auto) 4.7, Eos % (Auto) 0.4, Baso % (Auto) 0.9, Absolute Neuts (auto) 5.1, Absolute Lymphs (auto) 2.72, Nucleated RBC % 0 07/26/19 00:30: Sodium 133 L, Potassium 4.6, Chloride 97 L, Carbon Dioxide 8.0 L*, Anion Gap 28 H, BUN 18, Creatinine 1.21, Estim Creat Clear Calc 76.85, Est GFR (MDRD) Af Amer 98, Est GFR (MDRD) Non-Af 81, BUN/Creatinine Ratio 14.9, Glucose 695 H*, Calcium 9.5, Total Bilirubin 1.30 H, AST 204 H, ALT 324 H, Alkaline Phosphatase 240 H, Total Protein 8.3 H, Albumin 4.3, Globulin 4.0, Albumin/Globulin Ratio 1.1 07/26/19 00:30: Acetone Level LARGE H 07/26/19 00:33: POC Glucose > 500 H* 07/26/19 01:05: Urine Color Straw, Urine Clarity Clear, Urine pH 5.0, Ur Specific [place] 1.020, Urine Protein 15 H, Urine Glucose (UA) 1000 H, Urine Ketones 150 H, Urine Occult Blood Negative, Urine Nitrite Negative, Urine Bilirubin Negative, Urine Urobilinogen Normal, Ur Leukocyte Esterase Negative, Urine RBC 0 SEEN, Urine WBC 0 SEEN, Ur Squamous Epith Cells 0 SEEN, Urine Bacteria 0 SEEN, Urine Mucus 0 SEEN 07/26/19 01:05: Urine Opiates Screen NEGATIVE, Urine Methadone Screen NEGATIVE, Ur Barbiturates Screen NEGATIVE, Ur Phencyclidine Scrn NEGATIVE, Ur Amphetamines Screen NEGATIVE, U Methamphetamin-MDMA NEGATIVE, U Benzodiazepines Scrn NEGATIVE, Urine Cocaine Screen NEGATIVE, U Cannabinoids Screen NEGATIVE, Ur Drug Screen Comment 07/26/19 02:15: POC Glucose > 500 H* 07/26/19 02:47: POC Glucose > 500 H* 07/26/19 03:51: POC Glucose 442 H 07/26/19 04:40: WBC 9.4, RBC 4.70, Hgb 14.4, Hct 45.3, MCV 96.4 H, MCH 30.6, MCHC 31.8 L, RDW Std Deviation 47.5 H, RDW Coeff of Richard 13.2, Plt Count 268, MPV 9.4, Immature Gran % (Auto) 2.100 H, Neut % (Auto) 67.0, Lymph % (Auto) 22.9, [place] % (Auto) 7.4, Eos % (Auto) 0.1, Baso % (Auto) 0.5, Absolute Neuts (auto) 6.3, Absolute Lymphs (auto) 2.15, Nucleated RBC % 0 07/26/19 04:40: Sodium 142, Potassium 4.3, Chloride 112 H, Carbon Dioxide 6.0 L* , Anion Gap 24 H, BUN 14, Creatinine 1.18, Estim Creat Clear Calc 81.21, Est GFR (MDRD) Af Amer 101, Est GFR (MDRD) Non-Af 83, BUN/Creatinine Ratio 11.9, Glucose 311 H, Calcium 7.8 L, Total Bilirubin 0.60, AST 116 H, ALT 237 H, Alkaline Phosphatase 161 H, Total Protein 6.0 L, Albumin 3.0 L, Globulin 3.0, Albumin/Globulin Ratio 1.0 07/26/19 04:42: POC Glucose 292 H 07/26/19 05:46: POC Glucose 218 H 07/26/19 06:52: POC Glucose 324 H 07/26/19 07:58: POC Glucose 285 H Current Medications Acetaminophen (Tylenol) 650 mg PO Q6H PRN PRN PRN Reason: Pain Score 1-10/Temp > 100.7 F Dextrose (D50w Syringe) 0 gm IV X1 PRN; Protocol PRN Reason: Hypoglycemia Protocol Insulin Human Lispro 100 unit/ (Sodium Chloride) 100 mls @ 5.579 mls/hr IV .[id number] [facility]; Protocol Last Titration: 07/26/19 07:58 Dose: 0.12 units/kg/hr, 6.7 mls/hr Documented by: Sodium Chloride () 250 mls @ 15 mls/hr IV .[id number] PRN PRN Reason: Saline Flush Sodium Chloride () 250 mls @ 15 mls/hr IV .[id number] PRN PRN Reason: Additional IVPB Infusion Potassium Chloride/Dextrose/Sod Cl () 1,000 mls @ 250 mls/hr IV .Q4H [facility] Last Admin: 07/26/19 06:57 Dose: 250 mls/hr Documented by: Influenza Virus Vaccine Quadrival (Flucelvax /Fluzone ) 0.5 ml IM .ONCE ONE Stop: 07/27/19 10:01 Ondansetron HCl (Zofran) 4 mg IV Q8H PRN PRN PRN Reason: NAUSEA/VOMITING Sodium Chloride () 10 - 40 ml IV UD PRN PRN Reason: SALINE FLUSH Clinical Impression(s) from Imaging Studies Chest X-Ray 07/26/19 00:47 IMPRESSION: Normal x-ray examination of the chest. Electronically Signed: Zak Pearce MD at 1:29 EST Tel , Service support , Assessment/Plan RECOMMENDATIONS: 1. Continue with DKA protocol 2. Outpatient follow-up with endocrinology 3. Okay to have ice chips from my perspective 4. Transition to p.o. diet per protocol IMPRESSIONS: 1. Acute diabetic ketoacidosis without coma Patient is reporting compliance with therapy, but gives no salient features of complicated diabetic control. Patient is not reporting any infections at this time. Patient is being treated per the protocol and responding appropriately. Patient does need some increased education on DKA given frequent exacerbations of diabetic control. Patient would benefit from close outpatient follow-up. Currently hemodynamically stable on room air. We will continue aggressive volume resuscitation. 2. Fatty liver/frequent hospitalizations/moderate malnutrition Patient is reporting a history of fatty liver, but there is no d ocumentation to confirm this finding. Patient with a very slight build. Probably secondary to poor diabetic control. Consider dietitian evaluation. Code Visit Inpatient E&M: 51125 Init Hosp L3
[2019-07-26 09:06] LABS: Bedside Glucose 235 mg/dL (70-110)
[2019-07-26 09:33] LABS: Anion Gap 17 (5-15); BUN 11 mg/dL (7-18); BUN/Creat Ratio 8.8 RATIO (10-20); Calcium,Total 8.3 mg/dL (8.5-10.1); Chloride 117 mmol/L (98-107); Creatinine, Serum 1.25 mg/dL (0.70-1.30); EST Glomerular Filtration Rate 78 mL/min (>60); Est Glom Filt Rate - Afr Amer 94 mL/min (>60); Estimated Creatinine Clearance 76.67 ml/min; Glucose 237 mg/dL (74-106); Potassium 3.7 mmol/L (3.5-5.1); Sodium Level 145 mmol/L (136-145)
[2019-07-26 09:35] LABS: Acetaminophen (Tylenol) Level < 2.0 ug/mL (10.0-30.0)
[2019-07-26 09:56] LABS: Salicylate 2.4 mg/dL (2.8-20.0)
[2019-07-26] MEDS: Potassium Chloride 10mEq/100mL 10 MEQ/100 ML IV.SOLN. 100 MEQ IV BOLUS ×2 (09:58→10:52)
[2019-07-26 10:06] LABS: Bedside Glucose 171 mg/dL (70-110)
--- NOTE | 2019-07-26 10:57 | PN_ITS ---
Subjective: Patient seen and examined. He was admitted with DKA. Patient has a history of recurrent DKA and poorly controlled type 1 diabetes mellitus. He states his been having nausea and vomiting for the past few days and was just not feeling well so he decided to come in. He said most of his family had acute gastroenteritis. He had been seen on 07/24/2019 with persistent abdominal pain, nausea and vomiting. He did have an elevated anion gap on admission but was told to drink fluids and uses insulin and was discharged home. Symptoms however persisted so decided coming to the ED. glucose was 695 and anion gap was 28 with bicarb of 8 on admission. He was started on insulin drip and IV fluids and is been managed for DKA. Vitals/I&O's: Vital Signs Temp Pulse Resp BP Pulse Ox 98.2 F 88 17 113/71 99 07/26/19 08:00 07/26/19 10:00 07/26/19 10:00 07/26/19 10:00 07/26/19 10:00 Oxygen Delivery Method Room Air Weight: 126 lb 12.253 oz Body Mass Index (BMI) 19.3 Finger Stick Blood Glucose 144 Intake and Output for Last 24 Hours 07/24/19 07/25/19 07/26/19 23:59 23:59 23:59 Intake Total 3249.56 / 3249.56 Output Total 0 / 0 Balance 3249.56 / 3249.56 General: Alert, Oriented x3, Cooperative, No apparent distress, Lethargic HEENT: Atraumatic, PERRLA, EOMI, Normocephalic Oral: Dry Mucosa Neck: Supple, No JVD, Negative Carotid Bruits Lungs: Clear to auscultation, Normal air movement Cardiovascular: Regular rate, Regular Rhythm, Normal S1, Normal S2, No murmurs Abdomen: Bowel Sounds Present, Soft, Non Tender, Non-Distended, No Hepato- splenomegaly Extremities: No clubbing, No cyanosis, No edema, Capillary Refill Less than 3 Seconds Skin: No rashes, No breakdown Musculoskeletal: No Tenderness to Palpation of Joints or Extremities Lymphatic: No Cervical, Supraclavicular, or Inguinal Adenopathy Neurological: Cranial nerves II-XII grossly intact, Neuro grossly intact, Motor Exam 5/5 strength throughout Psych/Mental Status: Normal Affect, Appropriate, Alert and oriented to time, place, person, mood and affect Laboratory Results 07/26/19 00:30: WBC 8.5, RBC 5.46, Hgb 16.9 H, Hct 53.4, MCV 97.8 H D, MCH 31.0, MCHC 31.6 L, RDW Std Deviation 47.8 H, RDW Coeff of Richard 13.2, Plt Count 374, MPV 10.0, Immature Gran % (Auto) 2.000 H, Neut % (Auto) 59.9, Lymph % (Auto) 32.1, [place] % (Auto) 4.7, Eos % (Auto) 0.4, Baso % (Auto) 0.9, Absolute Neuts (auto) 5.1, Absolute Lymphs (auto) 2.72, Nucleated RBC % 0 07/26/19 00:30: Sodium 133 L, Potassium 4.6, Chloride 97 L, Carbon Dioxide 8.0 L*, Anion Gap 28 H, BUN 18, Creatinine 1.21, Estim Creat Clear Calc 76.85, Est GFR (MDRD) Af Amer 98, Est GFR (MDRD) Non-Af 81, BUN/Creatinine Ratio 14.9, Glucose 695 H*, Calcium 9.5, Total Bilirubin 1.30 H, AST 204 H, ALT 324 H, Alkaline Phosphatase 240 H, Total Protein 8.3 H, Albumin 4.3, Globulin 4.0, Albumin/Globulin Ratio 1.1 07/26/19 00:30: Acetone Level LARGE H 07/26/19 00:33: POC Glucose > 500 H* 07/26/19 01:05: Urine Color Straw, Urine Clarity Clear, Urine pH 5.0, Ur Specific [place] 1.020, Urine Protein 15 H, Urine Glucose (UA) 1000 H, Urine Ket ones 150 H, Urine Occult Blood Negative, Urine Nitrite Negative, Urine Bilirubin Negative, Urine Urobilinogen Normal, Ur Leukocyte Esterase Negative, Urine RBC 0 SEEN, Urine WBC 0 SEEN, Ur Squamous Epith Cells 0 SEEN, Urine Bacteria 0 SEEN, Urine Mucus 0 SEEN 07/26/19 01:05: Urine Opiates Screen NEGATIVE, Urine Methadone Screen NEGATIVE, Ur Barbiturates Screen NEGATIVE, Ur Phencyclidine Scrn NEGATIVE, Ur Amphetamines Screen NEGATIVE, U Methamphetamin-MDMA NEGATIVE, U Benzodiazepines Scrn NEGATIVE, Urine Cocaine Screen NEGATIVE, U Cannabinoids Screen NEGATIVE, Ur Drug Screen Comment 01/10/20 02:15: POC Glucose > 500 H* 07/26/19 02:47: POC Glucose > 500 H* 07/26/19 03:51: POC Glucose 442 H 07/26/19 04:40: WBC 9.4, RBC 4.70, Hgb 14.4, Hct 45.3, MCV 96.4 H, MCH 30.6, MCHC 31.8 L, RDW Std Deviation 47.5 H, RDW Coeff of Richard 13.2, Plt Count 268, MPV 9.4, Immature Gran % (Auto) 2.100 H, Neut % (Auto) 67.0, Lymph % (Auto) 22.9, [place] % (Auto) 7.4, Eos % (Auto) 0.1, Baso % (Auto) 0.5, Absolute Neuts (auto) 6.3, Absolute Lymphs (auto) 2.15, Nucleated RBC % 0 07/26/19 04:40: Sodium 142, Potassium 4.3, Chloride 112 H, Carbon Dioxide 6.0 L* , Anion Gap 24 H, BUN 14, Creatinine 1.18, Estim Creat Clear Calc 81.21, Est GFR (MDRD) Af Amer 101, Est GFR (MDRD) Non-Af 83, BUN/Creatinine Ratio 11.9, Glucose 311 H, Calcium 7.8 L, Total Bilirubin 0.60, AST 116 H, ALT 237 H, Alkaline Phosphatase 161 H, Total Protein 6.0 L, Albumin 3.0 L, Globulin 3.0, Albumin/Globulin Ratio 1.0 07/26/19 04:42: POC Glucose 292 H 07/26/19 05:46: POC Glucose 218 H 07/26/19 06:52: POC Glucose 324 H 07/26/19 07:58: POC Glucose 285 H 07/26/19 08:55: Sodium 145, Potassium 3.7, Chloride 117 H, Carbon Dioxide 11.0 L , Anion Gap 17 H, BUN 11, Creatinine 1.25, Estim Creat Clear Calc 76.67, Est GFR (MDRD) Af Amer 94, Est GFR (MDRD) Non-Af 78, BUN/Creatinine Ratio 8.8 L, Glucose 237 H, Calcium 8.3 L 07/26/19 08:55: EBV Capsid Ag IgG Ab Pending, EBV Capsid Ag IgM Ab Pending, EBV Early Antigen IgG Pending, EBV Nuclear Ag IgG Ab Pending, EBV Antibody Interp Pending, Hepatitis A IgM Ab Pending, Hep Bs Antigen Pending, Hep B Core IgM Ab Pending, Hepatitis C Ab (EIA) Pending 07/26/19 08:55: Acetaminophen < 2.0 L 07/26/19 08:55: CMV DNA Qual PCR Pending 07/26/19 08:55: Salicylates 2.4 L 07/26/19 08:57: POC Glucose 235 H 07/26/19 10:00: POC Glucose 171 H Diagnostic Data Chest X-Ray 07/26/19 00:47 IMPRESSION: Normal x-ray examination of the chest. Electronically Signed: Zak Pearce MD at 1:29 EST Tel , Service support , Current Medications Acetaminophen (Tylenol) 650 mg PO Q6H PRN PRN PRN Reason: Pain Score 1-10/Temp > 100.7 F Dextrose (D50w Syringe) 0 gm IV X1 PRN; Protocol PRN Reason: Hypoglycemia Protocol Insulin Human Lispro 100 unit/ (Sodium Chloride) 100 mls @ 5.579 mls/hr IV .[id number] [facility]; Protocol Last Titration: 07/26/19 10:02 Dose: 0.04 units/kg/hr, 2.5 mls/hr Documented by: Sodium Chloride () 250 mls @ 15 mls/hr IV .[id number] PRN PRN Reason: Saline Flush Sodium Chloride () 250 mls @ 15 mls/hr IV .[id number] PRN PRN Reason: Additional IVPB Infusion Potassium Chloride/Dextrose/Sod Cl () 1,000 mls @ 250 mls/hr IV .Q4H [facility] Last Admin: 07/26/19 10:51 Dose: 250 mls/hr Documented by: Potassium Chloride () 10 meq in 100 mls @ 100 mls/hr IV BOLUS Q1H [facility] Stop: 07/26/19 11:44 Last Admin: 07/26/19 10:52 Dose: 100 mls/hr Documented by: Influenza Virus Vaccine Quadrival (Flucelvax /Fluzone ) 0.5 ml IM .ONCE ONE Stop: 07/27/19 10:01 Ondansetron HCl (Zofran) 4 mg IV Q8H PRN PRN PRN Reason: NAUSEA/VOMITING Sodium Chloride () 10 - 40 ml IV UD PRN PRN Reason: SALINE FLUSH STROKE Vital Signs/Narrative: Vital Signs Temp Pulse Resp BP Pulse Ox 07/26/19 10:00 88 17 113/71 99 07/26/19 09:00 88 20 H 107/50 L 99 07/26/19 08:00 98.2 F 93 19 H 115/56 L 99 07/26/19 07:00 95 20 H 92/35 L 98 Medical Necessity - Tobacco Use Smoking Status: Never smoker Tobacco Use: Non-smoker Assessment/Plan All Active Problems (Last Reviewed 04/22/19 @ 11:28 by Pranay Solitario MD) Diabetic ketoacidosis (Acute) DKA, type 1 (Acute) DKA (diabetic ketoacidoses) (Acute) 1. DKA in a known type 1 diabetic * likely precipitated by acute viral gastorenteritis * has a history of recurrent DKAs * anion gap was 28 on admission, with bicarb of 6; anion gap is now 17, and bicarb is now 11 * continue insulin drip till gap is closed,a nd switch to D5 W when blood sugar is <250 * critical care on board * BMP q4hrly * home insulin dose is lantus 40IU sc bid and ISS * 2. Acute gastroenteritis * Likely viral. Continue hydrating with IV fluids. * if diarrhea persists, will check stool for enteric pathogen. * 3. elevated liver enzymes * AST is 116 with ALT of 237 and ALP of 161. * These are trending down from their admission levels and may have been due to dehydration. * Does have a history of fatty liver diagnosed by ultrasound in 2018. * repeat USG ordered on admission is pending. * 4. Anxiety and depression: not on meds DVT prophylaxis: SCDs Code Visit Inpatient E&M: 08390 Subs Hosp L3
[2019-07-26 12:01] LABS: Bedside Glucose 179 mg/dL (70-110)
[2019-07-26 12:01] LABS: Bedside Glucose 170 mg/dL (70-110)
[2019-07-26 13:01] LABS: Bedside Glucose 170 mg/dL (70-110)
[2019-07-26 13:35] LABS: Anion Gap 6 (5-15); BUN 8 mg/dL (7-18); BUN/Creat Ratio 7.6 RATIO (10-20); Chloride 119 mmol/L (98-107); Creatinine, Serum 1.05 mg/dL (0.70-1.30); EST Glomerular Filtration Rate 95 mL/min (>60); Est Glom Filt Rate - Afr Amer 115 mL/min (>60); Estimated Creatinine Clearance 91.27 ml/min; Glucose 158 mg/dL (74-106); Potassium 3.8 mmol/L (3.5-5.1); Sodium Level 145 mmol/L (136-145)
--- NOTE | 2019-07-26 13:42 | CASEMGMT ---
RN CM Assessment Presentation: DKA Intro role of CM and purpose of RN CM assessment. Pt is sleepy, but able to participate in assessment. Pt states he is still living with his grandmother, has his insulin and supplies and no concerns re: dc. States his illness precipitated this event. PCP: Dr. Scott Gomez Specialists: Dr. Meena Trevizo, endocrinology [facility] [address] [place] [id number] PH: [phone] fax: [phone] [facility] [place] [facility] [place] yes. Pt states he is able to fill insulin prescriptions. Denies difficulty LNOK: Grandmother Living Arrangements: Lives independently with his grandmother Transportation: drives DME: blood glucose monitoring equipment HHC/SNF: none SW Referral: no Patient DC goals: Home on discharge DC PLAN: Home on discharge. Pt aware to contact CM if dc concerns arise. John GRAIBAYN RN ACM
[2019-07-26 14:06] LABS: Bedside Glucose 134 mg/dL (70-110)
[2019-07-26 15:05] LABS: Bedside Glucose 117 mg/dL (70-110)
[2019-07-26 16:15] LABS: Bedside Glucose 133 mg/dL (70-110)
[2019-07-26 17:11] LABS: Bedside Glucose 123 mg/dL (70-110)
[2019-07-26 17:31] LABS: Anion Gap 3 (5-15); BUN 8 mg/dL (7-18); BUN/Creat Ratio 8.9 RATIO (10-20); Calcium,Total 7.8 mg/dL (8.5-10.1); Chloride 120 mmol/L (98-107); EST Glomerular Filtration Rate 114 mL/min (>60); Est Glom Filt Rate - Afr Amer 138 mL/min (>60); Estimated Creatinine Clearance 106.48 ml/min; Glucose 106 mg/dL (74-106); Potassium 3.6 mmol/L (3.5-5.1); Sodium Level 148 mmol/L (136-145)
[2019-07-26 18:21] LABS: Bedside Glucose 72 mg/dL (70-110)
[2019-07-26] MEDS: 0.9% Saline Lock 10 ML Syringe IV (18:34)
[2019-07-26] MEDS: Insulin Lispro 100 UNIT/ML INSULN.PEN SC (21:44)
[2019-07-26 21:51] LABS: Bedside Glucose 265 mg/dL (70-110)
[2019-07-27] VITALS (11 sets, daily range): BP systolic 103–128; BP diastolic 58–91; PULSE 58–81; RESP 14–24; TEMP 36.7–36.8; O2SAT 97–100
[2019-07-27 02:06] LABS: Bedside Glucose 96 mg/dL (70-110)
[2019-07-27 04:10] LABS: Absolute Neutrophil Count 1.5 X10^3/uL (2.0-7.7); Basophil# 0.03 X10^3/uL; Basophil% 0.7 % (0-1); Eosinophil# 0.19 X10^3/uL; Eosinophils% 4.4 % (0-5); Hemoglobin 12.3 g/dL (13.0-16.5); Lymphocyte % 51.5 % (19-41); Mean Corp Hgb Conc 33.2 g/dL (32-36); Mean Corpuscular Hgb 31.7 pg (27.0-32.0); Mean Corpuscular Volume 95.4 fL (80-94); Mean Platelet Vol. 9.5 fl (6.2-12.0); NRBC Flagged by Analyzer 0 % (0-5); Neutrophil # 1.52 X10^3/uL (2.7-7.7); Neutrophil % 35.7 % (47-70); Platelet Count 196 K/mm3 (150-450); RBC Distribution Width CV 13.5 % (11.6-14.6); RBC Distribution Width SD 47.6 fl (35.1-43.9); Red Blood Count 3.88 M/mm3 (4.6-6.2); White Blood Count 4.3 K/mm3 (4.4-11.0)
[2019-07-27 04:22] LABS: Anion Gap 12 (5-15); BUN 6 mg/dL (7-18); BUN/Creat Ratio 6.5 RATIO (10-20); Calcium,Total 7.9 mg/dL (8.5-10.1); Chloride 111 mmol/L (98-107); Creatinine, Serum 0.93 mg/dL (0.70-1.30); EST Glomerular Filtration Rate 110 mL/min (>60); Est Glom Filt Rate - Afr Amer 132 mL/min (>60); Estimated Creatinine Clearance 103.05 ml/min; Glucose 171 mg/dL (74-106); Potassium 3.7 mmol/L (3.5-5.1); Sodium Level 140 mmol/L (136-145)
--- NOTE | 2019-07-27 06:35 | PCM.PN.INT ---
Subjective: Patient did well overnight. Patient came off of his insulin drip at approximately 6 PM. No issues reported this morning. Patient denies any nausea or vomiting. Patient does report that he has insulin at home to continue therapy. General: Alert, Oriented x3, Cooperative, No apparent distress, - - Thin build. Speaks in full sentences. HEENT: Atraumatic, PERRLA, EOMI, Normocephalic, - - No scleral icterus or injection noted Oral: Moist Mucosa, No Gingival or Mucosal Lesions/ Ulcerations Neck: Supple, No JVD, No Nodes, Trachea Midline Lungs: Clear to auscultation, Normal air movement, No rhonchi, No wheeze, No rales Cardiovascular: Regular rate, Regular Rhythm, Normal S1, Normal S2, No murmurs, No rub noted, No Gallop Abdomen: Bowel Sounds Present, Soft, Non Tender, Non-Distended Extremities: No clubbing, No cyanosis, No edema, Capillary Refill Less than 3 Seconds Skin: No rashes, No breakdown Musculoskeletal: No Tenderness to Palpation of Joints or Extremities Lymphatic: No Cervical, Supraclavicular, or Inguinal Adenopathy Neurological: Cranial nerves II-XII grossly intact, Neuro grossly intact, Motor Exam 5/5 strength throughout Psych/Mental Status: Alert and oriented to time, place, person, mood and affect Vital Signs Temp Pulse Resp BP Pulse Ox 36.8 C 71 15 121/81 H 98 07/27/19 04:00 07/27/19 06:00 07/27/19 06:00 07/27/19 06:00 07/27/19 06:00 Oxygen Delivery Method Room Air Weight: 61.6 kg Body Mass Index (BMI) 19.3 Finger Stick Blood Glucose 144 Intake and Output for Last 24 Hours 07/25/19 07/26/19 07/27/19 23:59 23:59 23:59 Intake Total 5899.36 / 5899.36 480 / 480 Output Total 0 / 0 Balance 5899.36 / 5899.36 480 / 480 Labs (Last 48 Hours) 07/26/19 07/26/19 07/26/19 00:30 00:30 00:30 WBC 8.5 RBC 5.46 Hgb 16.9 H Hct 53.4 MCV 97.8 H D MCH 31.0 MCHC 31.6 L RDW Std Deviation 47.8 H RDW Coeff of Richard 13.2 Plt Count 374 MPV 10.0 Immature Gran % (Auto) 2.000 H Neut % (Auto) 59.9 Lymph % (Auto) 32.1 [place] % (Auto) 4.7 Eos % (Auto) 0.4 Baso % (Auto) 0.9 Absolute Neuts (auto) 5.1 Absolute Lymphs (auto) 2.72 Nucleated RBC % 0 Sodium 133 L Potassium 4.6 Chloride 97 L Carbon Dioxide 8.0 L* Anion Gap 28 H BUN 18 Creatinine 1.21 Estim Creat Clear Calc 76.85 Est GFR (MDRD) Af Amer 98 Est GFR (MDRD) Non-Af 81 BUN/Creatinine Ratio 14.9 Glucose 695 H* Calcium 9.5 Total Bilirubin 1.30 H AST 204 H ALT 324 H Alkaline Phosphatase 240 H Total Protein 8.3 H Albumin 4.3 Globulin 4.0 Albumin/Globulin Ratio 1.1 Urine Color Urine Clarity Urine pH Ur Specific [place] Urine Protein Urine Glucose (UA) Urine Ketones Urine Occult Blood Urine Nitrite Urine Bilirubin Urine Urobilinogen Ur Leukocyte Esterase Urine RBC Urine WBC Ur Squamous Epith Cells Urine Bacteria Urine Mucus Salicylates Urine Opiates Screen Urine Methadone Screen Acetaminophen Ur Barbiturates Screen Ur Phencyclidine Scrn Ur Amphetamines Screen U Methamphetamin-MDMA U Benzodiazepines Scrn Urine Cocaine Screen U Cannabinoids Screen Ur Drug Screen Comment [place]et[place] Level LARGE H CMV DNA Qual PCR EBV Capsid Ag IgG Ab EBV Capsid Ag IgM Ab EBV Early Antigen IgG EBV Nuclear Ag IgG Ab EBV Antibody Interp Hepatitis A IgM Ab Hep Bs Antigen Hep B Core IgM Ab Hepatitis C Ab (EIA) POC Glucose 07/26/19 07/26/19 07/26/19 00:33 01:05 01:05 WBC RBC Hgb Hct MCV MCH MCHC RDW Std Deviation RDW Coeff of Richard Plt Count MPV Immature Gran % (Auto) Neut % (Auto) Lymph % (Auto) [place] % (Auto) Eos % (Auto) Baso % (Auto) Absolute Neuts (auto) Absolute Lymphs (auto) Nucleated RBC % Sodium Potassium Chloride Carbon Dioxide Anion Gap BUN Creatinine Estim Creat Clear Calc Est GFR (MDRD) Af Amer Est GFR (MDRD) Non-Af BUN/Creatinine Ratio Glucose Calcium Total Bilirubin AST ALT Alkaline Phosphatase Total Protein Albumin Globulin Albumin/Globulin Ratio Urine Color Straw Urine Clarity Clear Urine pH 5.0 Ur Specific [place] 1.020 Urine Protein 15 H Urine Glucose (UA) 1000 H Urine Ketones 150 H Urine Occult Blood Negative Urine Nitrite Negative Urine Bilirubin Negative Urine Urobilinogen Normal Ur Leukocyte Esterase Negative Urine RBC 0 SEEN Urine WBC 0 SEEN Ur Squamous Epith Cells 0 SEEN Urine Bacteria 0 SEEN Urine Mucus 0 SEEN Salicylates Urine Opiates Screen NEGATIVE Urine Methadone Screen NEGATIVE Acetaminophen Ur Barbiturates Screen NEGATIVE Ur Phencyclidine Scrn NEGATIVE Ur Amphetamines Screen NEGATIVE U Methamphetamin-MDMA NEGATIVE U Benzodiazepines Scrn NEGATIVE Urine Cocaine Screen NEGATIVE U Cannabinoids Screen NEGATIVE Ur Drug Screen Comment [place] CMV DNA Qual PCR EBV Capsid Ag IgG Ab EBV Capsid Ag IgM Ab EBV Early Antigen IgG EBV Nuclear Ag IgG Ab EBV Antibody Interp Hepatitis A IgM Ab Hep Bs Antigen Hep B Core IgM Ab Hepatitis C Ab (EIA) POC Glucose > 500 H* 07/26/19 07/26/19 07/26/19 02:15 02:47 03:51 WBC RBC Hgb Hct MCV MCH MCHC RDW Std Deviation RDW Coeff of Richard Plt Count MPV Immature Gran % (Auto) Neut % (Auto) Lymph % (Auto) [place] % (Auto) Eos % (Auto) Baso % (Auto) Absolute Neuts (auto) Absolute Lymphs (auto) Nucleated RBC % Sodium Potassium Chloride Carbon Dioxide Anion Gap BUN Creatinine Estim Creat Clear Calc Est GFR (MDRD) Af Amer Est GFR (MDRD) Non-Af BUN/Creatinine Ratio Glucose Calcium Total Bilirubin AST ALT Alkaline Phosphatase Total Protein Albumin Globulin Albumin/Globulin Ratio Urine Color Urine Clarity Urine pH Ur Specific [place] Urine Protein Urine Glucose (UA) Urine Ketones Urine Occult Blood Urine Nitrite Urine Bilirubin Urine Urobilinogen Ur Leukocyte Esterase Urine RBC Urine WBC Ur Squamous Epith Cells Urine Bacteria Urine Mucus Salicylates Urine Opiates Screen Urine Methadone Screen Acetaminophen Ur Barbiturates Screen Ur Phencyclidine Scrn Ur Amphetamines Screen U Methamphetamin-MDMA U Benzodiazepines Scrn Urine Cocaine Screen U Cannabinoids Screen Ur Drug Screen Comment [place] CMV DNA Qual PCR EBV Capsid Ag IgG Ab EBV Capsid Ag IgM Ab EBV Early Antigen IgG EBV Nuclear Ag IgG Ab EBV Antibody Interp Hepatitis A IgM Ab Hep Bs Antigen Hep B Core IgM Ab Hepatitis C Ab (EIA) POC Glucose > 500 H* > 500 H* 442 H 07/26/19 07/26/19 07/26/19 04:40 04:40 04:42 WBC 9.4 RBC 4.70 Hgb 14.4 Hct 45.3 MCV 96.4 H MCH 30.6 MCHC 31.8 L RDW Std Deviation 47.5 H RDW Coeff of Richard 13.2 Plt Count 268 MPV 9.4 Immature Gran % (Auto) 2.100 H Neut % (Auto) 67.0 Lymph % (Auto) 22.9 [place] % (Auto) 7.4 Eos % (Auto) 0.1 Baso % (Auto) 0.5 Absolute Neuts (auto) 6.3 Absolute Lymphs (auto) 2.15 Nucleated RBC % 0 Sodium 142 Potassium 4.3 Chloride 112 H Carbon Dioxide 6.0 L* Anion Gap 24 H BUN 14 Creatinine 1.18 Estim Creat Clear Calc 81.21 Est GFR (MDRD) Af Amer 101 Est GFR (MDRD) Non-Af 83 BUN/Creatinine Ratio 11.9 Glucose 311 H Calcium 7.8 L Total Bilirubin 0.60 AST 116 H ALT 237 H Alkaline Phosphatase 161 H Total Protein 6.0 L Albumin 3.0 L Globulin 3.0 Albumin/Globulin Ratio 1.0 Urine Color Urine Clarity Urine pH Ur Specific [place] Urine Protein Urine Glucose (UA) Urine Ketones Urine Occult Blood Urine Nitrite Urine Bilirubin Urine Urobilinogen Ur Leukocyte Esterase Urine RBC Urine WBC Ur Squamous Epith Cells Urine Bacteria Urine Mucus Salicylates Urine Opiates Screen Urine Methadone Screen Acetaminophen Ur Barbiturates Screen Ur Phencyclidine Scrn Ur Amphetamines Screen U Methamphetamin-MDMA U Benzodiazepines Scrn Urine Cocaine Screen U Cannabinoids Screen Ur Drug Screen Comment [place] CMV DNA Qual PCR EBV Capsid Ag IgG Ab EBV Capsid Ag IgM Ab EBV Early Antigen IgG EBV Nuclear Ag IgG Ab EBV Antibody Interp Hepatitis A IgM Ab Hep Bs Antigen Hep B Core IgM Ab Hepatitis C Ab (EIA) POC Glucose 292 H 07/26/19 07/26/19 07/26/19 05:46 06:52 07:58 WBC RBC Hgb Hct MCV MCH MCHC RDW Std Deviation RDW Coeff of Richard Plt Count MPV Immature Gran % (Auto) Neut % (Auto) Lymph % (Auto) [place] % (Auto) Eos % (Auto) Baso % (Auto) Absolute Neuts (auto) Absolute Lymphs (auto) Nucleated RBC % Sodium Potassium Chloride Carbon Dioxide Anion Gap BUN Creatinine Estim Creat Clear Calc Est GFR (MDRD) Af Amer Est GFR (MDRD) Non-Af BUN/Creatinine Ratio Glucose Calcium Total Bilirubin AST ALT Alkaline Phosphatase Total Protein Albumin Globulin Albumin/Globulin Ratio Urine Color Urine Clarity Urine pH Ur Specific [place] Urine Protein Urine Glucose (UA) Urine Ketones Urine Occult Blood Urine Nitrite Urine Bilirubin Urine Urobilinogen Ur Leukocyte Esterase Urine RBC Urine WBC Ur Squamous Epith Cells Urine Bacteria Urine Mucus Salicylates Urine Opiates Screen Urine Methadone Screen Acetaminophen Ur Barbiturates Screen Ur Phencyclidine Scrn Ur Amphetamines Screen U Methamphetamin-MDMA U Benzodiazepines Scrn Urine Cocaine Screen U Cannabinoids Screen Ur Drug Screen Comment [place] CMV DNA Qual PCR EBV Capsid Ag IgG Ab EBV Capsid Ag IgM Ab EBV Early Antigen IgG EBV Nuclear Ag IgG Ab EBV Antibody Interp Hepatitis A IgM Ab Hep Bs Antigen Hep B Core IgM Ab Hepatitis C Ab (EIA) POC Glucose 218 H 324 H 285 H 07/26/19 07/26/19 07/26/19 08:55 08:55 08:55 WBC RBC Hgb Hct MCV MCH MCHC RDW Std Deviation RDW Coeff of Richard Plt Count MPV Immature Gran % (Auto) Neut % (Auto) Lymph % (Auto) [place] % (Auto) Eos % (Auto) Baso % (Auto) Absolute Neuts (auto) Absolute Lymphs (auto) Nucleated RBC % Sodium 145 Potassium 3.7 Chloride 117 H Carbon Dioxide 11.0 L Anion Gap 17 H BUN 11 Creatinine 1.25 Estim Creat Clear Calc 76.67 Est GFR (MDRD) Af Amer 94 Est GFR (MDRD) Non-Af 78 BUN/Creatinine Ratio 8.8 L Glucose 237 H Calcium 8.3 L Total Bilirubin AST ALT Alkaline Phosphatase Total Protein Albumin Globulin Albumin/Globulin Ratio Urine Color Urine Clarity Urine pH Ur Specific [place] Urine Protein Urine Glucose (UA) Urine Ketones Urine Occult Blood Urine Nitrite Urine Bilirubin Urine Urobilinogen Ur Leukocyte Esterase Urine RBC Urine WBC Ur Squamous Epith Cells Urine Bacteria Urine Mucus Salicylates Urine Opiates Screen Urine Methadone Screen Acetaminophen < 2.0 L Ur Barbiturates Screen Ur Phencyclidine Scrn Ur Amphetamines Screen U Methamphetamin-MDMA U Benzodiazepines Scrn Urine Cocaine Screen U Cannabinoids Screen Ur Drug Screen Comment [place] CMV DNA Qual PCR EBV Capsid Ag IgG Ab Pending EBV Capsid Ag IgM Ab Pending EBV Early Antigen IgG Pending EBV Nuclear Ag IgG Ab Pending EBV Antibody Interp Pending Hepatitis A IgM Ab Pending Hep Bs Antigen Pending Hep B Core IgM Ab Pending Hepatitis C Ab (EIA) Pending POC Glucose 07/26/19 07/26/19 07/26/19 08:55 08:55 08:57 WBC RBC Hgb Hct MCV MCH MCHC RDW Std Deviation RDW Coeff of Richard Plt Count MPV Immature Gran % (Auto) Neut % (Auto) Lymph % (Auto) [place] % (Auto) Eos % (Auto) Baso % (Auto) Absolute Neuts (auto) Absolute Lymphs (auto) Nucleated RBC % Sodium Potassium Chloride Carbon Dioxide Anion Gap BUN Creatinine Estim Creat Clear Calc Est GFR (MDRD) Af Amer Est GFR (MDRD) Non-Af BUN/Creatinine Ratio Glucose Calcium Total Bilirubin AST ALT Alkaline Phosphatase Total Protein Albumin Globulin Albumin/Globulin Ratio Urine Color Urine Clarity Urine pH Ur Specific [place] Urine Protein Urine Glucose (UA) Urine Ketones Urine Occult Blood Urine Nitrite Urine Bilirubin Urine Urobilinogen Ur Leukocyte Esterase Urine RBC Urine WBC Ur Squamous Epith Cells Urine Bacteria Urine Mucus Salicylates 2.4 L Urine Opiates Screen Urine Methadone Screen Acetaminophen Ur Barbiturates Screen Ur Phencyclidine Scrn Ur Amphetamines Screen U Methamphetamin-MDMA U Benzodiazepines Scrn Urine Cocaine Screen U Cannabinoids Screen Ur Drug Screen Comment [place] CMV DNA Qual PCR Pending EBV Capsid Ag IgG Ab EBV Capsid Ag IgM Ab EBV Early Antigen IgG EBV Nuclear Ag IgG Ab EBV Antibody Interp Hepatitis A IgM Ab Hep Bs Antigen Hep B Core IgM Ab Hepatitis C Ab (EIA) POC Glucose 235 H 07/26/19 07/26/19 07/26/19 10:00 10:58 11:57 WBC RBC Hgb Hct MCV MCH MCHC RDW Std Deviation RDW Coeff of Richard Plt Count MPV Immature Gran % (Auto) Neut % (Auto) Lymph % (Auto) [place] % (Auto) Eos % (Auto) Baso % (Auto) Absolute Neuts (auto) Absolute Lymphs (auto) Nucleated RBC % Sodium Potassium Chloride Carbon Dioxide Anion Gap BUN Creatinine Estim Creat Clear Calc Est GFR (MDRD) Af Amer Est GFR (MDRD) Non-Af BUN/Creatinine Ratio Glucose Calcium Total Bilirubin AST ALT Alkaline Phosphatase Total Protein Albumin Globulin Albumin/Globulin Ratio Urine Color Urine Clarity Urine pH Ur Specific [place] Urine Protein Urine Glucose (UA) Urine Ketones Urine Occult Blood Urine Nitrite Urine Bilirubin Urine Urobilinogen Ur Leukocyte Esterase Urine RBC Urine WBC Ur Squamous Epith Cells Urine Bacteria Urine Mucus Salicylates Urine Opiates Screen Urine Methadone Screen Acetaminophen Ur Barbiturates Screen Ur Phencyclidine Scrn Ur Amphetamines Screen U Methamphetamin-MDMA U Benzodiazepines Scrn Urine Cocaine Screen U Cannabinoids Screen Ur Drug Screen Comment [place] CMV DNA Qual PCR EBV Capsid Ag IgG Ab EBV Capsid Ag IgM Ab EBV Early Antigen IgG EBV Nuclear Ag IgG Ab EBV Antibody Interp Hepatitis A IgM Ab Hep Bs Antigen Hep B Core IgM Ab Hepatitis C Ab (EIA) POC Glucose 171 H 170 H 179 H 07/26/19 07/26/19 07/26/19 12:57 12:58 14:03 WBC RBC Hgb Hct MCV MCH MCHC RDW Std Deviation RDW Coeff of Richard Plt Count MPV Immature Gran % (Auto) Neut % (Auto) Lymph % (Auto) [place] % (Auto) Eos % (Auto) Baso % (Auto) Absolute Neuts (auto) Absolute Lymphs (auto) Nucleated RBC % Sodium 145 Potassium 3.8 Chloride 119 H Carbon Dioxide 20.0 L Anion Gap 6 BUN 8 Creatinine 1.05 Estim Creat Clear Calc 91.27 Est GFR (MDRD) Af Amer 115 Est GFR (MDRD) Non-Af 95 BUN/Creatinine Ratio 7.6 L Glucose 158 H Calcium 8.0 L Total Bilirubin AST ALT Alkaline Phosphatase Total Protein Albumin Globulin Albumin/Globulin Ratio Urine Color Urine Clarity Urine pH Ur Specific [place] Urine Protein Urine Glucose (UA) Urine Ketones Urine Occult Blood Urine Nitrite Urine Bilirubin Urine Urobilinogen Ur Leukocyte Esterase Urine RBC Urine WBC Ur Squamous Epith Cells Urine Bacteria Urine Mucus Salicylates Urine Opiates Screen Urine Methadone Screen Acetaminophen Ur Barbiturates Screen Ur Phencyclidine Scrn Ur Amphetamines Screen U Methamphetamin-MDMA U Benzodiazepines Scrn Urine Cocaine Screen U Cannabinoids Screen Ur Drug Screen Comment [place] CMV DNA Qual PCR EBV Capsid Ag IgG Ab EBV Capsid Ag IgM Ab EBV Early Antigen IgG EBV Nuclear Ag IgG Ab EBV Antibody Interp Hepatitis A IgM Ab Hep Bs Antigen Hep B Core IgM Ab Hepatitis C Ab (EIA) POC Glucose 170 H 134 H 07/26/19 07/26/19 07/26/19 15:01 16:07 17:04 WBC RBC Hgb Hct MCV MCH MCHC RDW Std Deviation RDW Coeff of Richard Plt Count MPV Immature Gran % (Auto) Neut % (Auto) Lymph % (Auto) [place] % (Auto) Eos % (Auto) Baso % (Auto) Absolute Neuts (auto) Absolute Lymphs (auto) Nucleated RBC % Sodium Potassium Chloride Carbon Dioxide Anion Gap BUN Creatinine Estim Creat Clear Calc Est GFR (MDRD) Af Amer Est GFR (MDRD) Non-Af BUN/Creatinine Ratio Glucose Calcium Total Bilirubin AST ALT Alkaline Phosphatase Total Protein Albumin Globulin Albumin/Globulin Ratio Urine Color Urine Clarity Urine pH Ur Specific [place] Urine Protein Urine Glucose (UA) Urine Ketones Urine Occult Blood Urine Nitrite Urine Bilirubin Urine Urobilinogen Ur Leukocyte Esterase Urine RBC Urine WBC Ur Squamous Epith Cells Urine Bacteria Urine Mucus Salicylates Urine Opiates Screen Urine Methadone Screen Acetaminophen Ur Barbiturates Screen Ur Phencyclidine Scrn Ur Amphetamines Screen U Methamphetamin-MDMA U Benzodiazepines Scrn Urine Cocaine Screen U Cannabinoids Screen Ur Drug Screen Comment [place] CMV DNA Qual PCR EBV Capsid Ag IgG Ab EBV Capsid Ag IgM Ab EBV Early Antigen IgG EBV Nuclear Ag IgG Ab EBV Antibody Interp Hepatitis A IgM Ab Hep Bs Antigen Hep B Core IgM Ab Hepatitis C Ab (EIA) POC Glucose 117 H 133 H 123 H 07/26/19 07/26/19 07/26/19 17:05 18:17 21:40 WBC RBC Hgb Hct MCV MCH MCHC RDW Std Deviation RDW Coeff of Richard Plt Count MPV Immature Gran % (Auto) Neut % (Auto) Lymph % (Auto) [place] % (Auto) Eos % (Auto) Baso % (Auto) Absolute Neuts (auto) Absolute Lymphs (auto) Nucleated RBC % Sodium 148 H Potassium 3.6 Chloride 120 H Carbon Dioxide 25.0 Anion Gap 3 L BUN 8 Creatinine 0.90 Estim Creat Clear Calc 106.48 Est GFR (MDRD) Af Amer 138 Est GFR (MDRD) Non-Af 114 BUN/Creatinine Ratio 8.9 L Glucose 106 Calcium 7.8 L Total Bilirubin AST ALT Alkaline Phosphatase Total Protein Albumin Globulin Albumin/Globulin Ratio Urine Color Urine Clarity Urine pH Ur Specific [place] Urine Protein Urine Glucose (UA) Urine Ketones Urine Occult Blood Urine Nitrite Urine Bilirubin Urine Urobilinogen Ur Leukocyte Esterase Urine RBC Urine WBC Ur Squamous Epith Cells Urine Bacteria Urine Mucus Salicylates Urine Opiates Screen Urine Methadone Screen Acetaminophen Ur Barbiturates Screen Ur Phencyclidine Scrn Ur Amphetamines Screen U Methamphetamin-MDMA U Benzodiazepines Scrn Urine Cocaine Screen U Cannabinoids Screen Ur Drug Screen Comment [place] CMV DNA Qual PCR EBV Capsid Ag IgG Ab EBV Capsid Ag IgM Ab EBV Early Antigen IgG EBV Nuclear Ag IgG Ab EBV Antibody Interp Hepatitis A IgM Ab Hep Bs Antigen Hep B Core IgM Ab Hepatitis C Ab (EIA) POC Glucose 72 265 H 07/27/19 07/27/19 07/27/19 01:53 04:00 04:00 WBC 4.3 L RBC 3.88 L Hgb 12.3 L Hct 37.0 L MCV 95.4 H MCH 31.7 MCHC 33.2 RDW Std Deviation 47.6 H RDW Coeff of Richard 13.5 Plt Count 196 MPV 9.5 Immature Gran % (Auto) 0.700 Neut % (Auto) 35.7 L Lymph % (Auto) 51.5 H [place] % (Auto) 7.0 Eos % (Auto) 4.4 Baso % (Auto) 0.7 Absolute Neuts (auto) 1.5 L Absolute Lymphs (auto) 2.20 Nucleated RBC % 0 Sodium 140 Potassium 3.7 Chloride 111 H Carbon Dioxide 17.0 L Anion Gap 12 BUN 6 L Creatinine 0.93 Estim Creat Clear Calc 103.05 Est GFR (MDRD) Af Amer 132 Est GFR (MDRD) Non-Af 110 BUN/Creatinine Ratio 6.5 L Glucose 171 H Calcium 7.9 L Total Bilirubin AST ALT Alkaline Phosphatase Total Protein Albumin Globulin Albumin/Globulin Ratio Urine Color Urine Clarity Urine pH Ur Specific [place] Urine Protein Urine Glucose (UA) Urine Ketones Urine Occult Blood Urine Nitrite Urine Bilirubin Urine Urobilinogen Ur Leukocyte Esterase Urine RBC Urine WBC Ur Squamous Epith Cells Urine Bacteria Urine Mucus Salicylates Urine Opiates Screen Urine Methadone Screen Acetaminophen Ur Barbiturates Screen Ur Phencyclidine Scrn Ur Amphetamines Screen U Methamphetamin-MDMA U Benzodiazepines Scrn Urine Cocaine Screen U Cannabinoids Screen Ur Drug Screen Comment [place] CMV DNA Qual PCR EBV Capsid Ag IgG Ab EBV Capsid Ag IgM Ab EBV Early Antigen IgG EBV Nuclear Ag IgG Ab EBV Antibody Interp Hepatitis A IgM Ab Hep Bs Antigen Hep B Core IgM Ab Hepatitis C Ab (EIA) POC Glucose 96 Clinical Impression(s) from Imaging Studies Abdomen Ultrasound 07/26/19 04:48 IMPRESSION: Hepatic steatosis and hepatomegaly. Electronically Signed: Hussein Vasques, at 1:32 EST Tel , Service support , Medical Necessity - Tobacco Use Smoking Status: Never smoker Tobacco Use: Non-smoker Assessment/Plan All Active Problems (Last Reviewed 04/22/19 @ 11:28 by Pranay Solitario MD) Diabetic ketoacidosis (Acute) DKA, type 1 (Acute) DKA (diabetic ketoacidoses) (Acute) RECOMMENDATIONS: 1. Okay to discharge from my perspective 2. Outpatient follow-up with endocrinology 3. Continue diabetic diet IMPRESSIONS: 1. Acute diabetic ketoacidosis without coma Patient is reporting compliance with therapy, but gives no salient features of complicated diabetic control. Patient is not reporting any infections at this time. Patient is being treated per the protocol and responding appropriately. Patient does need some increased education on DKA given frequent exacerbations of diabetic control. Patient would benefit from close outpatient follow-up. Patient's gap has been closed for several hours. Okay to discharge from my perspective. Hemodynamically stable on room air. Will sign off from a critical care perspective. 2. Fatty liver/frequent hospitalizations/moderate malnutrition Patient is reporting a history of fatty liver, but there is no documentation to confirm this finding. Patient with a very slight build. Probably secondary to poor diabetic control. Code Visit Inpatient E&M: 97531 Subs Hosp L2
[2019-07-27 08:41] LABS: Bedside Glucose 99 mg/dL (70-110)
--- NOTE | 2019-07-27 09:55 | DCINST_ITS ---
You will use the following diet at home:: Calorie/Carbohydrate Controlled (specify 1200, 1400, etc) - 1800 Your food should be the consistency of: Regular Your liquids should be the consistency of: Regular/Thin Discharge Activity: Return to Normal Activity Weight Bearing Status: Weight bearing as tolerated Call your doctor if you observe: Fever of 101 or Higher, Shortness of breath, Dizziness, Swelling in the ankles Instructions: A1c, Diabetes and Your Child: Preventing Diabetic Ketoacidosis (DKA) Additional Instructions: follow up with agricultural extension officer in [place] within one week. Call office for appointment Allergies/Adverse Reactions: Allergies No Known Allergies Allergy (Verified 07/26/19 00:18) Medications to take at Discharge Insulin Lispro [Humalog KwikPen] See Protocol SQ ACHS 08/21/18 Insulin Glargine,Hum.rec.anlog [Basaglar Kwikpen U-100] 40 - 45 unit SQ BIDAC 03/01/19 Ondansetron [Zofran] 8 mg PO Q8H PRN PRN #12 tab 07/24/19 Primary Care Physician: Scott Gomez MD [Primary Care Provider] - Please follow up with your Primary Care Physician in: one week Test Results: Test results from this visit will be discussed in further detail at your follow- up appointment, if applicable. Proposed Discharge Date: 07/27/19
--- NOTE | 2019-07-27 15:15 | PCM.DC.SUM ---
Discharge Date and Diagnosis Date of Admission: 07/26/19 Date of Discharge: 07/27/19 - Primary Discharge Diagnosis DKA Acute gastroenteritis - Secondary Discharge Diagnosis Chronic Problems (Last Reviewed 04/22/19 @ 11:28 by Pranay Solitario MD) Anxiety and depression (Chronic) GERD (gastroesophageal reflux disease) (Chronic) Fatty liver (Chronic) Suicidal ideations (Chronic) DM I (diabetes mellitus, type I), uncontrolled (Chronic) Hospital Course and Treatment Imaging Results: Diagnostic Data Chest X-Ray 07/26/19 00:47 IMPRESSION: Normal x-ray examination of the chest. Electronically Signed: Zak Pearce MD at 1:29 EST Tel , Service support , Abdomen Ultrasound 07/26/19 04:48 IMPRESSION: Hepatic steatosis and hepatomegaly. Electronically Signed: Hussein Vasques, at 1:32 EST Tel , Service support , critical care- Dr Meyer Operations: None Procedures: None Summary of Care Provided: Patient is a 18-year-old male with a past medical history of type 1 diabetes mellitus and recurrent DKA as well as anxiety and depression. He was admitted through the ED on 07/26/2019 with a complaint of abdominal pain, diarrhea and vomiting which have been going on for about 3-4 days prior to admission. Stated that all his family members had gastroenteritis. On admission in the ED, he was found to have elevated anion gap of about 28 with a bicarb of 8. He had previously been seen in the ED a few days prior to admission and was told that his symptoms were due to gastroenteritis and sent home though at that time he had elevated anion gap. During this index admission, UA showed glucosuria with large acetones. He was admitted and managed for DKA likely precipitated by gastroenteritis and noncompliance with his insulin as he said he was not taking his insulin because he was not eating. He was started on insulin drip and aggressively hydrated with IV fluids. Anion gap subsequently closed and he was transitioned to his regular dose of subcu insulin. Patient remained stable and was discharged home on 07/27/2019 and counseled strongly to compliant with his home insulin. 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 Of note, on admission, liver enzymes also elevated. He did have a history of fatty liver per ultrasound done in July 2017. Liver ultrasound done during this admission showed hepatomegaly with fatty liver. He is to see his primary care doctor to be referred to a literacy coordinator as needed. Patient seen and examined prior to discharge. He had no complaints a large breakfast. Review of systems otherwise negative. Labs and vitals reviewed. Home medication reviewed and reconciled. o/e: Vital Signs Height 5 ft 8 in Weight: 135 lb 12.876 oz Weight in Pounds 135.8 lbs Pulse Ox 97 Temperature 98.0 F Pulse Rate 78 Respiratory Rate 19 Blood Pressure [BP] 107/58 Blood Pressure 103/59 Blood Pressure Position [BP] Semi-Fowlers Blood Pressure Position Semi-Fowlers General: Alert, Oriented x3, Cooperative, No apparent distress HEENT: Atraumatic, PERRLA, EOMI, Normocephalic Oral: Dry Mucosa Neck: Supple, No JVD, Negative Carotid Bruits Lungs: Clear to auscultation, Normal air movement Cardiovascular: Regular rate, Regular Rhythm, Normal S1, Normal S2, No murmurs Abdomen: Bowel Sounds Present, Soft, Non Tender, Non-Distended, No Hepato-splenomegaly Extremities: No clubbing, No cyanosis, No edema, Capillary Refill Less than 3 Seconds Skin: No rashes, No breakdown Musculoskeletal: No Tenderness to Palpation of Joints or Extremities Lymphatic: No Cervical, Supraclavicular, or Inguinal Adenopathy Neurological: Cranial nerves II-XII grossly intact, Neuro grossly intact, Motor Exam 5/5 strength throughout Psych/Mental Status: Normal Affect, Appropriate, Alert and oriented to time, place, person, mood and affect Plan as above. - Physical Exam Vitals/I&O's: Vital Signs Temp Pulse Resp BP Pulse Ox 98.0 F 78 19 H 107/58 L 97 07/27/19 08:00 07/27/19 10:00 07/27/19 10:00 07/27/19 10:00 07/27/19 10:00 Oxygen Delivery Method Room Air Weight: 135 lb 12.876 oz Body Mass Index (BMI) 19.3 Finger Stick Blood Glucose 144 Intake and Output for Last 24 Hours 07/25/19 07/26/19 07/27/19 23:59 23:59 23:59 Intake Total 5899.36 / 5899.36 480 / 480 Output Total 0 / 0 Balance 5899.36 / 5899.36 480 / 480 Laboratory Results 07/26/19 16:07: POC Glucose 133 H 07/26/19 17:04: POC Glucose 123 H 07/26/19 17:05: Sodium 148 H, Potassium 3.6, Chloride 120 H, Carbon Dioxide 25.0, Anion Gap 3 L, BUN 8, Creatinine 0.90, Estim Creat Clear Calc 106.48, Est GFR (MDRD) Af Amer 138, Est GFR (MDRD) Non-Af 114, BUN/Creatinine Ratio 8.9 L, Glucose 106, Calcium 7.8 L 07/26/19 18:17: POC Glucose 72 07/26/19 21:40: POC Glucose 265 H 07/27/19 01:53: POC Glucose 96 07/27/19 04:00: WBC 4.3 L, RBC 3.88 L, Hgb 12.3 L, Hct 37.0 L, MCV 95.4 H, MCH 31.7, MCHC 33.2, RDW Std Deviation 47.6 H, RDW Coeff of Richard 13.5, Plt Count 196, MPV 9.5, Immature Gran % (Auto) 0.700, Neut % (Auto) 35.7 L, Lymph % (Auto) 51.5 H, [place] % (Auto) 7.0, Eos % (Auto) 4.4, Baso % (Auto) 0.7, Absolute Neuts (auto) 1.5 L, Absolute Lymphs (auto) 2.20, Nucleated RBC % 0 07/27/19 04:00: Sodium 140, Potassium 3.7, Chloride 111 H, Carbon Dioxide 17.0 L, Anion Gap 12, BUN 6 L, Creatinine 0.93, Estim Creat Clear Calc 103.05, Est GFR (MDRD) Af Amer 132, Est GFR (MDRD) Non-Af 110, BUN/Creatinine Ratio 6.5 L, Glucose 171 H, Calcium 7.9 L 07/27/19 08:34: POC Glucose 99 Discharge Activity: Return to Normal Activity Weight Bearing Status: Weight bearing as tolerated Call your doctor if you observe: Fever of 101 or Higher, Shortness of breath, Dizziness, Swelling in the ankles Home Medications: Medications to take at Discharge Insulin Lispro [Humalog KwikPen] See Protocol SQ ACHS 08/21/18 Insulin Glargine,Hum.rec.anlog [Basaglar Kwikpen U-100] 40 - 45 unit SQ BIDAC 03/01/19 Ondansetron [Zofran] 8 mg PO Q8H PRN PRN #12 tab 07/24/19 Primary Care Physician: Scott Gomez MD [Primary Care Provider] - Please follow up with your Primary Care Physician in: one week Patient Instructions: A1c, Diabetes and Your Child: Preventing Diabetic Ketoacidosis (DKA) Disposition: Home Minutes spent on discharge:: 35 Patient Condition:: Stable Medical Necessity - Tobacco Use Smoking Status: Never smoker Tobacco Use: Non-smoker Meaningful Use Info Meaningful Use Diagnoses (Choose all that apply): None applicable Code Visit Inpatient E&M: 29867 Disch Hosp
[2019-07-28 14:06] LABS: HEPATITIS B SURFACE AG Negative (Negative); Hepatitis A IgM Antibody Negative (Negative); Hepatitis B Core AB IgM Negative (Negative)
[2019-07-30 10:22] LABS: EBV Acute VCA IgM < 36.0 U/mL (0.0-35.9); EBV Early Antigen IgG <9.0 U/mL (0.0-8.9); EBV-VCA IgG 89.2 U/mL (0.0-17.9); Hep C Antibodies <0.1 s/co ratio (0.0-0.9)
== END 2019-07-27 10:35 | disposition home or self-care (01) | DRG 420 ==
LOC: ED 00:59 → ICU 02:03
PROVIDERS: Admitting Provider Internal Medicine; Emergency Provider Emergency Medicine; Family Provider Pediatrics; PCP Pediatrics; Referring Provider Internal Medicine; Visit Provider Student in an Organized Health Care Education/Training Program
DX: E10.10 Type 1 diabetes mellitus with ketoacidosis without coma (principal); A08.4 Viral intestinal infection, unspecified; K76.0 Fatty (change of) liver, not elsewhere classified; F41.9 Anxiety disorder, unspecified; F32.9 Major depressive disorder, single episode, unspecified; K21.9 Gastro-esophageal reflux disease without esophagitis; Z79.4 Long term (current) use of insulin; Z91.5 Personal history of self-harm; Z91.14 Patient's other noncompliance with medication regimen; Z96.22 Myringotomy tube(s) status
CPT/HCPCS: 71045; 76705; 80048; 80053; 80074; 80307; 80329; 81001; 82009; 82803; 82962; 85025; 86663; 86664; 86665; 87496; 93005; 96361; 96374; 99283; 99284; J7030; 90686; A4216; G0480; J2405

== ENCOUNTER 2019-08-23 11:57 | Emergency (ER) | payer MEDICAID, SELFPAY ==
[2019-07-26 02:34] VITALS: BMI 19.3
[2019-08-23 12:00] VITALS: BP 110/75; PULSE 149; RESP 17; TEMP 36.7; O2SAT 95; BMI 20.5
--- NOTE | 2019-08-23 12:44 | ED.VIS.GEN ---
History of Present Illness Chief Complaint: Abd Pain Informant: Patient Onset: Today Context: Gradual Onset Timing: Continuous Current Severity: Moderate Maximum Severity: Moderate Narrative: The patient is an insulin-dependent diabetic that presents to the emergency department with abdominal pain, nausea, vomiting, and diarrhea. He states he woke about 2 this morning with some abdominal cramping. He states that it felt like his sugar may been high. Took his blood sugar and it was 200 which she states is good for him. He states he then went back to sleep and woke again and this time had vomiting. He states that he has had cramping in his midepigastric area and then began to have loose, watery diarrhea. He denies any fever but does think that he had chills. His sister is sick with similar symptoms. He has been compliant with his insulin therapy. Prior similar symptoms: No Recent Illness/Hospitalization: No Past Medical History - Allergies and Home Meds Allergies/Adverse Reactions: Allergies No Known Allergies Allergy (Verified 08/23/19 12:00) Primary Care Physician: Scott Gomez MD [Primary Care Provider] - Prior records reviewed: Yes Past Medical History: - - Diabetes Surgical History: no surgical history, - - BL ear tubes. Smoking Status: Never smoker - Family History Maternal Family History: Family History (Last Reviewed 04/22/19 @ 11:28 by Pranay Solitario MD) Mother Kidney disease Family History: Reports: Heart Disease, Renal Disease Paternal Family History: Family History (Last Reviewed 04/22/19 @ 11:28 by Pranay Solitario MD) Mother Kidney disease Family History: Reports: Heart Disease, - - Paternal family males w/ frequent hearing disorder. Additional Family History: Family history of hearing loss on the father's side in the mail. No history of Alport syndrome. Review of Systems General: Reports: Chills. Denies: Fever, Sweats Eyes: Denies: Visual changes - bilaterally, Diplopia ENT: Denies: Rhinorrhea, Sore throat Cardiovascular: Denies: Chest pain, Palpitations Respiratory: Denies: Dyspnea, Cough, Dyspnea on exertion Gastrointestinal: Reports: Nausea, Vomiting. Denies: Abdominal pain, Diarrhea, Melena, Hematochezia Genitourinary: Denies: Dysuria, Hematuria, Frequency Musculoskeletal: Denies: Back pain, Extremity Pain Skin: Denies: Rash, Wounds Neurological: Denies: Headache, Weakness, Numbness Physical Exam Vital Signs/Narrative: Vital Signs Temp Pulse Resp BP Pulse Ox 08/23/19 12:00 98.1 F 149 H 17 110/75 95 Inital Vital Signs reviewed: Yes General: Well nourished, Well developed, No Acute Distress Head: Normocephalic, Atraumatic Eyes: Perrl, EOMI ENT: Moist mucous membranes, No rhinorrhea Neck: Supple, Nontender Cardiovascular: Regular rate, Regular rhythm, No murmurs Respiratory: No distress, CTA bilaterally, Chest nontender Abdomen: Soft, Nontender, Nondistended, Normal bowel sounds Back: Nontender, Normal Inspection Extremities: Nontender, No edema Skin: Normal color, No rash Neurological: Alert, Oriented x3, Cranial nerves II-XII grossly intact, Normal Strength, Normal Sensation Psychological: Normal affect, Normal Mood Diagnostic/Tx/Re-eval Clinical Impression(s) from Imaging Studies Abdomen Ultrasound 08/23/19 13:14 IMPRESSION: Hepatomegaly with diffuse fatty infiltration, no discrete lesion Hypoechoic area within the tail of the pancreas measuring 3.6 x 4.7 x 1.7 cm, there is associated fluid suggesting pancreatitis please correlate with lab results Sonographically normal gallbladder and right kidney Electronically Signed: Miki Tyler MD at 14:40 EST , Service support , Abdomen/Pelvis CT 08/23/19 14:46 IMPRESSION: No pancreatic mass seen. Abnormality on ultrasound likely is related to adjacent bowel loops. Hepatomegaly. Moderately abundant stool. Electronically Signed: Go Mena MD at 15:20 EST , Service support , Abnormal Lab Results 08/23/19 08/23/19 08/23/19 12:47 12:47 12:47 WBC 16.7 H RBC 5.56 Hgb 17.5 H Hct 48.2 MCV 86.7 MCH 31.5 MCHC 36.3 H RDW Std Deviation 38.1 RDW Coeff of Richard 11.9 Plt Count 330 MPV 9.3 Immature Gran % (Auto) 1.000 H Neut % (Auto) 88.1 H Lymph % (Auto) 5.4 L [place] % (Auto) 3.8 Eos % (Auto) 1.4 Baso % (Auto) 0.3 Absolute Neuts (auto) 14.7 H Absolute Lymphs (auto) 0.90 Nucleated RBC % 0 Sodium 138 Potassium 3.4 L Chloride 104 Carbon Dioxide 29.0 Anion Gap 5 BUN 13 Creatinine 0.77 Estim Creat Clear Calc 132.90 Est GFR (MDRD) Af Amer 164 Est GFR (MDRD) Non-Af 136 BUN/Creatinine Ratio 16.8 Glucose 251 H Calcium 9.6 Total Bilirubin 0.60 AST 69 H ALT 96 H Alkaline Phosphatase 160 H Total Protein 7.4 Albumin 3.9 Globulin 3.5 Albumin/Globulin Ratio 1.1 Lipase 61 L Urine Color Urine Clarity Urine pH Ur Specific [place] Urine Protein Urine Glucose (UA) Urine Ketones Urine Occult Blood Urine Nitrite Urine Bilirubin Urine Urobilinogen Ur Leukocyte Esterase Urine RBC Urine WBC Ur Squamous Epith Cells Urine Bacteria Urine Mucus Acetone Level NEGATIVE 08/23/19 14:53 WBC RBC Hgb Hct MCV MCH MCHC RDW Std Deviation RDW Coeff of Richard Plt Count MPV Immature Gran % (Auto) Neut % (Auto) Lymph % (Auto) [place] % (Auto) Eos % (Auto) Baso % (Auto) Absolute Neuts (auto) Absolute Lymphs (auto) Nucleated RBC % Sodium Potassium Chloride Carbon Dioxide Anion Gap BUN Creatinine Estim Creat Clear Calc Est GFR (MDRD) Af Amer Est GFR (MDRD) Non-Af BUN/Creatinine Ratio Glucose Calcium Total Bilirubin AST ALT Alkaline Phosphatase Total Protein Albumin Globulin Albumin/Globulin Ratio Lipase Urine Color Yellow Urine Clarity Sl. Cloudy Urine pH 6.0 Ur Specific [place] 1.020 Urine Protein 30 H Urine Glucose (UA) 1000 H Urine Ketones 50 H Urine Occult Blood Negative Urine Nitrite Negative Urine Bilirubin Negative Urine Urobilinogen Normal Ur Leukocyte Esterase Negative Urine RBC 0 SEEN Urine WBC 0 SEEN Ur Squamous Epith Cells 0 SEEN Urine Bacteria 0 SEEN Urine Mucus 1+ Acetone Level - Medical Decision Making Patient presents with nausea, vomiting and abdominal cramping. He states that he feels similar to when he is been in DKA before. IV was established. Labs were obtained. He does have a leukocytosis and mild elevation of his liver functions. However, his anion gap was normal. His bicarb is normal. His serum ketones are normal. I did obtain a right upper quadrant ultrasound which shows some fatty infiltration of the liver, but no cholecystitis. There was questionable fluid around the pancreas which was concerning for pancreatitis but his lipase was normal. With his leukocytosis, I obtained a CT of his abdomen and pelvis. This is unremarkable for acute process. On reevaluation, the patient is feeling improved. He has no evidence of DKA. I do feel that this is likely a viral syndrome. The patient will be treated symptomatically. He was counseled on concerning symptoms and reasons to return. He will be discharged home. Impression 1. Gastroenteritis ED Disposition - Plan for ED Patient: Instructions: GASTROENTERITIS, Non-Infectious (Child) (Adult) Prescriptions: Dicyclomine HCl [Bentyl] 20 mg PO TIDAC #20 cap Prescription Printed Ondansetron [Zofran Odt] 4 mg PO Q8H PRN PRN #10 tab PRN Reason: Nausea Prescription Printed Referrals: Scott Gomez MD [Primary Care Provider] -
[2019-08-23 12:58] LABS: Absolute Neutrophil Count 14.7 X10^3/uL (2.0-7.7); Basophil# 0.05 X10^3/uL; Basophil% 0.3 % (0-1); Eosinophil# 0.23 X10^3/uL; Eosinophils% 1.4 % (0-5); Hematocrit 48.2 % (40-54); Hemoglobin 17.5 g/dL (13.0-16.5); Lymphocyte % 5.4 % (19-41); Mean Corp Hgb Conc 36.3 g/dL (32-36); Mean Corpuscular Hgb 31.5 pg (27.0-32.0); Mean Corpuscular Volume 86.7 fL (80-94); Mean Platelet Vol. 9.3 fl (6.2-12.0); Monocyte# 0.63 X10^3/uL; Monocyte% 3.8 % (0-10); NRBC Flagged by Analyzer 0 % (0-5); Neutrophil # 14.71 X10^3/uL (2.7-7.7); Neutrophil % 88.1 % (47-70); Platelet Count 330 K/mm3 (150-450); RBC Distribution Width CV 11.9 % (11.6-14.6); RBC Distribution Width SD 38.1 fl (35.1-43.9); Red Blood Count 5.56 M/mm3 (4.6-6.2); White Blood Count 16.7 K/mm3 (4.4-11.0)
[2019-08-23 13:13] LABS: ALB/GLOB Ratio 1.1 RATIO (0.9-2.4); AST(SGOT) 69 U/L (15-37); Alanine Aminotransfer ALT/SGPT 96 U/L (16-61); Albumin, Serum 3.9 g/dL (3.2-5.0); Alkaline Phosphatase 160 U/L (45-117); Anion Gap 5 (5-15); BUN 13 mg/dL (7-18); BUN/Creat Ratio 16.8 RATIO (10-20); Calcium,Total 9.6 mg/dL (8.5-10.1); Chloride 104 mmol/L (98-107); Creatinine, Serum 0.77 mg/dL (0.70-1.30); EST Glomerular Filtration Rate 136 mL/min (>60); Est Glom Filt Rate - Afr Amer 164 mL/min (>60); Globulin 3.5 g/dL (2.2-4.2); Glucose 251 mg/dL (74-106); Lipase 61 U/L (73-393); Potassium 3.4 mmol/L (3.5-5.1); Protein, Total 7.4 g/dL (6.4-8.2); Sodium Level 138 mmol/L (136-145)
--- NOTE | 2019-08-23 13:14 | US_ITS ---
STUDY: ABDOMINAL ULTRASOUND - RIGHT UPPER QUADRANT REASON FOR VISIT: Male, 18 years old abdominal pain, nausea and vomiting TECHNIQUE: Ultrasound evaluation of the right upper quadrant was performed with real-time and static cancino-scale imaging. TECHNICAL QUALITY: Adequate. COMPARISON: 07/26/2019 FINDINGS: Liver: The liver measures 21.4 cm. There is increased echogenicity consistent with fatty infiltration. The bile ducts are within normal limits. There is hepatic color flow. The direction of portal flow is hepatopetal. There is no demonstrated mass lesion. Gallbladder: Normal distended gallbladder. The gallbladder wall measures 2.2 mm. There is a negative sonographic Skinner''s sign. There is no pericholecystic fluid. There are no gallstones. Common Bile Duct (C.B.D.): The common bile duct measures 3.2 mm. Pancreas: There is hypoechogenicity in the pancreatic tail measuring 3.6 x 4.7 x 1.7 cm. There is a small amount of fluid around the pancreas, pancreatitis cannot be excluded, recommend correlation with lab results. Right Kidney: Normal size of the right kidney. The right kidney measures 12.1 x 5.9 x 5.4 cm. Normal renal cortex. The right cortex measures 2.3 cm. There is no demonstrated renal mass or cyst. There is no right hydronephrosis. US/Abdomen Limited IMPRESSION: Hepatomegaly with diffuse fatty infiltration, no discrete lesion Hypoechoic area within the tail of the pancreas measuring 3.6 x 4.7 x 1.7 cm, there is associated fluid suggesting pancreatitis please correlate with lab results Sonographically normal gallbladder and right kidney Electronically Signed: Miki Tyler MD at 14:40 EST , Service support ,
[2019-08-23] MEDS: 0.9% Normal Saline 1,000 ML 1000 ML IV (13:16)
[2019-08-23] MEDS: Ondansetron 4 MG/2 ML Vial IV (13:16)
--- NOTE | 2019-08-23 14:46 | CT_ITS ---
STUDY: CT ABDOMEN AND PELVIS WITH CONTRAST REASON FOR EXAM: Male, 18 years old. Nausea, vomiting, diarrhea x 2 days, ? pancreatitis, US showed hypoechoic area in tail of pancreas. Hx diabetes. RADIATION DOSAGE (If Supplied By Facility): CTDIvol = ( 7.45 ) mGy, DLP = ( 632.98 ) mGycm TECHNIQUE: Transaxial images were obtained from the dome of the diaphragm to the symphysis pubis without oral contrast. IV 100mL Isovue-300 was administered. Sagittal and coronal images were reconstructed. Individualized dose optimization techniques were used for this CT. COMPARISON: Ultrasound, earlier the same day. CT May 10, 2016. FINDINGS: The visualized lung bases are unremarkable. The visualized portions of the heart are within normal limits. There is hepatomegaly with diffuse hepatic enlargement. Normal gallbladder and extrahepatic biliary system. Normal spleen. Normal pancreas. Normal bilateral adrenal glands. Normal right kidney. Normal left kidney. Normal visualized stomach. Normal small intestine. Normal colon. There is moderately abundant stool. The appendix is visualized and appears normal. Normal abdominal aorta. Normal inferior vena cava. Normal retroperitoneum. Normal urinary bladder. There is no free fluid in the abdomen or pelvis. Normal abdominal wall. Normal osseous structures. CT/Abdomen/Pelvis W IV Cont ONLY IMPRESSION: No pancreatic mass seen. Abnormality on ultrasound likely is related to adjacent bowel loops. Hepatomegaly. Moderately abundant stool. Electronically Signed: Go Mena MD at 15:20 EST , Service support ,
[2019-08-23 15:00] VITALS: BP 98/59; PULSE 134; RESP 17; O2SAT 97
[2019-08-23 15:00] LABS: Bacteria 0 SEEN /hpf (None Seen); Red Blood Cells-Urine 0 SEEN /hpf (0-5); Squamous Epithelial Cells - UA 0 SEEN /hpf (0-5); White Blood Cells 0 SEEN /hpf (0-5)
[2019-08-23 15:05] LABS: Color, Urine Yellow (Yellow); Glucose, Dipstick 1000 mg/dl (Normal); Ketone-Dipstick 50 mg/dl (Negative); Leukocyte Esterase-Dipstick Negative /ul (Negative); Nitrite-Dipstick Negative (Negative); Occult Blood-Urine Negative /ul (Negative); Protein-Dipstick 30 mg/dl (Negative); Urine Bilirubin Dipstick Negative (Negative); Urine Clarity Sl. Cloudy (Clear); Urine Urobilinogen Normal (Normal)
[2019-08-23 15:14] LABS: Mucous, Urine 1+ /hpf (<or=2+)
[2019-08-23] MEDS: Ketorolac 15 MG/ML Vial IV (15:40)
[2019-08-23] MEDS: Dicyclomine 20 MG/2 ML Vial IM (15:41)
[2019-08-23] MEDS: 0.9% Normal Saline 1,000 ML 999 ML IV (15:41)
[2019-08-23 16:56] VITALS: PULSE 128; RESP 17; O2SAT 96
== END 2019-08-23 17:01 | disposition home or self-care (01) ==
PROVIDERS: Emergency Provider Emergency Medicine; PCP Pediatrics
DX: K52.9 Noninfective gastroenteritis and colitis, unspecified (principal); E11.9 Type 2 diabetes mellitus without complications; Z79.4 Long term (current) use of insulin; Z82.49 Family history of ischemic heart disease and other diseases of the circulatory system
CPT/HCPCS: 74177; 76705; 80053; 81001; 82009; 83690; 85025; 87804; 96361; 96372; 96374; 96375; 99283; J7030; Q9967; A4216; J2405

== ENCOUNTER 2019-08-31 06:46 | Emergency (ER) | payer MEDICAID, SELFPAY ==
[2019-08-31 06:47] VITALS: BP 127/90; PULSE 88; RESP 12; TEMP 36.4; O2SAT 99; BMI 21.2
--- NOTE | 2019-08-31 07:08 | ED.DCSUM_ITS ---
History of Present Illness Chief Complaint: Lower Extremity Injury Detail of Chief Complaint: Feet pain with no history of injury Informant: Patient Onset: Days Context: Sudden Onset Timing: Continuous Quality: Burning and tingling Location: Dorsal lateral surface right and left foot and anterior distal right and le Current Severity: Mild Maximum Severity: Moderate Worsened by: Touch Relieved by: Nothing Associated Symptoms: None Narrative: Patient is a 18-year-old male with history of type 1 diabetes since the age of 2. His last A1c was 12.1. He sees an ged teacher. Her office located by [address]. His primary care provider is Dr. Scott Gomez. He denies history of trauma. He denies symptoms of claudication. He denies prior history of burning tingling pain. He is a non-smoker. He has not noted any discoloration of his skin. He denies discoloration of his toes with the cold weather. He denies any other symptoms. Prior similar symptoms: No Recent Illness/Hospitalization: No - Past Medical History (1) Anxiety and depression Status: Chronic (2) DM I (diabetes mellitus, type I), uncontrolled Status: Chronic (3) GERD (gastroesophageal reflux disease) Status: Chronic Past Medical History - Allergies and Home Meds Allergies/Adverse Reactions: Allergies No Known Allergies Allergy (Verified 08/31/19 06:51) Primary Care Physician: Scott Gomez MD [Primary Care Provider] - Prior records reviewed: Yes Surgical History: no surgical history, - - BL ear tubes. Lives: Alone Smoking Status: Never smoker Alcohol: None Drugs: None - Family History Maternal Family History: Family History (Last Reviewed 04/22/19 @ 11:28 by Pranay Solitario MD) Mother Kidney disease Family History: Reports: Heart Disease, Renal Disease Paternal Family History: Family History (Last Reviewed 04/22/19 @ 11:28 by Pranay Solitario MD) Mother Kidney disease Family History: Reports: Heart Disease, - - Paternal family males w/ frequent hearing disorder. Additional Family History: Family history of hearing loss on the father's side in the mail. No history of Alport syndrome. Review of Systems General: Denies: Chills, Fever, Malaise, Sweats Musculoskeletal: Reports: Extremity Pain. Denies: Myalgias, Arthralgias, Neck pain, Back pain, Swelling Skin: Denies: Rash, Wounds Neurological: Reports: Parasthesia, Numbness. Denies: Headache, Weakness Psych: Reports: Depression, Anxiety Hematologic: Denies: Easy bruising, Easy bleeding Allergy: Denies: Uticaria, Swelling of the mouth, Swelling of the tongue Physical Exam Vital Signs/Narrative: Vital Signs Temp Pulse Resp BP Pulse Ox 08/31/19 06:47 97.5 F L 88 12 127/90 H 99 Inital Vital Signs reviewed: Yes General: Well nourished, Well developed, No Acute Distress Head: Normocephalic, Atraumatic Eyes: Perrl, EOMI. Negative for: Pale conjunctiva, Scleral icterus Cardiovascular: Regular rate, Regular rhythm Respiratory: No distress Extremities: No edema, Tenderness - There is discomfort to light touch. DP pulse is palpable but diminished bilaterally. PT pulses palpable. There is no deformity to the feet. There is no specific point tenderness. There is no swelling, ecchymosis or discoloration.. Negative for: Nontender Skin: Normal color, No rash, No Trauma. Negative for: Cyanosis, Diaphoresis, Jaundice Neurological: Alert, Oriented x3, Cranial nerves II-XII grossly intact, Normal Strength. Negative for: Normal Sensation Psychological: Normal affect, Normal Mood Diagnostic/Tx/Re-eval - Medical Decision Making History and physical exam is consistent with diabetic neuropathy. Patient was treated with Neurontin. ED Disposition - Plan for ED Patient: Disposition: Home or Assisted Living Diagnosis: Diabetic neuropathy associated with type 1 diabetes mellitus Instructions: NEUROPATHY, Peripheral Prescriptions: Gabapentin [Neurontin] 300 mg PO UD #90 cap Transmission Status: Pending to [facility]/pharmacy #[id number] Referrals: Scott Gomez MD [Primary Care Provider] - 1 Week
[2019-08-31] MEDS: Gabapentin 100 MG Capsule 200 MG PO (07:40)
--- NOTE | 2019-08-31 07:41 | ED.RN ---
DISCHARGE INSTRUCTIONS GIVEN TO AND REVIEWED WITH PATIENT, PATIENT DENIES QUESTIONS OR CONCERNS AND VOICES UNDERSTANDING OF DISCHARGE INSTRUCTIONS. PT AMBULATES OUT OF ROOM WITHOUT DIFFICULTY.
== END 2019-08-31 07:42 | disposition home or self-care (01) ==
LOC: ED 07:15
PROVIDERS: Emergency Provider Emergency Medicine; PCP Pediatrics
DX: E10.43 Type 1 diabetes mellitus with diabetic autonomic (poly)neuropathy (principal); F32.9 Major depressive disorder, single episode, unspecified; K21.9 Gastro-esophageal reflux disease without esophagitis; F41.9 Anxiety disorder, unspecified; Z79.4 Long term (current) use of insulin; Z82.49 Family history of ischemic heart disease and other diseases of the circulatory system
CPT/HCPCS: 99283

== ENCOUNTER 2019-09-10 07:31 | Emergency (ER) | payer MEDICAID, SELFPAY ==
[2019-09-10 07:32] VITALS: BP 127/92; PULSE 114; RESP 16; TEMP 36.6; O2SAT 99
--- NOTE | 2019-09-10 07:45 | ED.DCSUM_ITS ---
History of Present Illness Chief Complaint: Other, Pain/Inj Informant: Patient Onset: Month(s) Maximum Severity: Mild Narrative: The patient has a history of diabetes insulin-dependent and lower extremity diabetic neuropathy for some time, he is currently on gabapentin, his blood sugars relatively well controlled his blood sugars run about 200 he is under care of outpatient providers, he indicates he has constant tingling and burning pain to his lower extremities right more than left the gabapentin helps but on occasion he has exacerbations and he has no medications to use when he has exacerbations he works on a job requires him to stand quite a bit he could not go to work today because of the above presents for evaluation. He has had no trauma no change in his chronic pattern normal bowel bladder habits no other concerns or complaints no history of peripheral vascular disease arthritic conditions or inflammatory conditions Past Medical History - Allergies and Home Meds Allergies/Adverse Reactions: Allergies No Known Allergies Allergy (Verified 09/10/19 07:32) Primary Care Physician: Scott Gomez MD [Primary Care Provider] - Past Medical History: - Surgical History: no surgical history, - - BL ear tubes. Smoking Status: Never smoker - Family History Maternal Family History: Family History (Last Reviewed 04/22/19 @ 11:[address] Pranay Solitario MD) Mother Kidney disease Family History: Reports: Heart Disease, Renal Disease Paternal Family History: Family History (Last Reviewed 04/22/19 @ 11:[address] Pranay Solitario MD) Mother Kidney disease Family History: Reports: Heart Disease, - - Paternal family males w/ frequent hearing disorder. Additional Family History: Family history of hearing loss on the father's side in the mail. No history of Alport syndrome. Review of Systems ROS: - As above General: Denies: Chills, Fever, Sweats Eyes: Denies: Visual changes - bilaterally, Diplopia ENT: Denies: Rhinorrhea, Sore throat Cardiovascular: Denies: Chest pain, Palpitations Respiratory: Denies: Dyspnea, Cough, Dyspnea on exertion Gastrointestinal: Denies: Abdominal pain, Nausea, Vomiting, Diarrhea, Melena, Hematochezia Genitourinary: Denies: Dysuria, Hematuria, Frequency Musculoskeletal: Reports: Extremity Pain. Denies: Back pain Skin: Denies: Rash, Wounds Neurological: Denies: Headache, Weakness, Numbness Physical Exam Vital Signs/Narrative: Vital Signs Temp Pulse Resp BP Pulse Ox 09/10/19 07:32 97.8 F 114 H 16 127/92 H 99 General: Well nourished, Well developed, No Acute Distress Head: Normocephalic, Atraumatic Eyes: Perrl, EOMI ENT: Moist mucous membranes, No rhinorrhea Neck: Supple, Nontender Cardiovascular: Regular rate, Regular rhythm, No murmurs Respiratory: No distress, CTA bilaterally, Chest nontender Abdomen: Soft, Nontender, Nondistended, Normal bowel sounds Back: Nontender, Normal Inspection Extremities: No edema, Tenderness, - - , He has normal sensation otherwise cap refill pulses are normal full flexion extension at the hips knees ankle and foot, able to walk skin otherwise intact no signs of infection or acute neurovascular abnormality Skin: Normal color, No rash Neurological: Alert, Oriented x3, Cranial nerves II-XII grossly intact, Normal Strength, Normal Sensation Psychological: Normal affect, Normal Mood Diagnostic/Tx/Re-eval - Medical Decision Making I had a long conversation with him this is a chronic condition with paroxysm of exacerbations, at this time will be treated with morphine and Toradol here in the department continue the gabapentin, he will be referred back to his outpatient providers for referral to pain management, referral to pain management, [place] for use at bedtime and he will be placed off work Home with stable Final impression diabetic neuropathy involving lower extremities with exacerbation ED Disposition - Plan for ED Patient: Diagnosis: Diabetic neuropathy Instructions: ED Chronic Pain Prescriptions: Hydrocodone Bitart/Apap 5-325 [[place] 5MG-325MG] 1 tab PO Q4H PRN PRN 2 Days #10 tab PRN Reason: Pain Prescription Printed Referrals: Scott Gomez MD [Primary Care Provider] - Jcarlos Roblero MD [STAFF PHYSICIAN] -
[2019-09-10] MEDS: Ketorolac 60 MG/2 ML Vial IM (07:54)
[2019-09-10] MEDS: morphine 8 MG/ML Syringe SC (07:54)
[2019-09-10] MEDS: Ondansetron ODT 4 MG Tablet PO (07:54)
[2019-09-10 09:02] VITALS: BP 135/78; PULSE 78; RESP 16; O2SAT 98
--- NOTE | 2019-09-10 09:03 | ED.RN ---
DISCHARGE INSTRUCTIONS GIVEN TO AND REVIEWED WITH PATIENT, PATIENT DENIES QUESTIONS OR CONCERNS AND VOICES UNDERSTANDING OF DISCHARGE INSTRUCTIONS. PT AMBULATES OUT OF ROOM WITHOUT DIFFICULTY
== END 2019-09-10 09:03 | disposition home or self-care (01) ==
LOC: ED 07:53
PROVIDERS: Emergency Provider Emergency Medicine; PCP Pediatrics
DX: E11.40 Type 2 diabetes mellitus with diabetic neuropathy, unspecified (principal); Z79.4 Long term (current) use of insulin; Z82.49 Family history of ischemic heart disease and other diseases of the circulatory system
CPT/HCPCS: 96372; 99283

== ENCOUNTER 2019-09-15 11:50 | Emergency (ER) | payer MEDICAID, SELFPAY ==
[2019-09-15 11:51] VITALS: BP 153/100; PULSE 88; RESP 20; TEMP 36.8; O2SAT 100; BMI 20.5
--- NOTE | 2019-09-15 12:00 | ED.VIS.GEN ---
History of Present Illness Chief Complaint: Other, Pain/Inj Detail of Chief Complaint: Diabetic neuropathy right and left leg and feet Informant: Patient Onset: Weeks Timing: Continuous Quality: Burning pain Location: Right and left lower extremity Current Severity: Mild Maximum Severity: Severe Worsened by: Touch, socks, putting shoes on Relieved by: Nothing Associated Symptoms: Nothing Narrative: Patient is a 18-year-old male with history of type 1 diabetes since age of 2. His last A1c was 13.1. He presents because the gabapentin and hydrocodone he was prescribed for his diabetic neuropathy is not helping. Patient denies fever, chills night sweats. Patient denies symptoms of claudication. Patient denies history of trauma. Patient denies swelling, discoloration to his legs or feet. States his blood sugars been under better control since his A1c was checked. He denies polyuria, polydipsia or nocturia. He denies blurred vision. He denies dry mouth or thirst. Prior similar symptoms: Yes Recent Illness/Hospitalization: Yes - Past Medical History (1) Diabetic neuropathy associated with type 1 diabetes mellitus Status: Acute (2) Anxiety and depression Status: Chronic (3) GERD (gastroesophageal reflux disease) Status: Chronic (4) DKA, type 1 Status: Acute (5) Fatty liver Status: Chronic (6) DM I (diabetes mellitus, type I), uncontrolled Status: Chronic Past Medical History - Allergies and Home Meds Allergies/Adverse Reactions: Allergies No Known Allergies Allergy (Verified 09/15/19 11:54) Primary Care Physician: Scott Gomez MD [Primary Care Provider] - Prior records reviewed: Yes Surgical History: no surgical history, - - BL ear tubes. Lives: Alone Smoking Status: Never smoker Alcohol: None Drugs: None - Family History Maternal Family History: Family History (Last Reviewed 04/22/19 @ 11:[address] Pranay Solitario MD) Mother Kidney disease Family History: Reports: Heart Disease, Renal Disease Paternal Family History: Family History (Last Reviewed 04/22/19 @ 11:[address] Pranay Solitario MD) Mother Kidney disease Family History: Reports: Heart Disease, - - Paternal family males w/ frequent hearing disorder. Additional Family History: Family history of hearing loss on the father's side in the mail. No history of Alport syndrome. Review of Systems General: Denies: Chills, Fever, Subjective, Sweats Eyes: Denies: Visual changes - bilaterally, Blurred Vision - bilaterally Cardiovascular: Denies: Chest pain, Palpitations Respiratory: Denies: Dyspnea, Cough Gastrointestinal: Denies: Abdominal pain, Nausea, Vomiting, Diarrhea, Melena, Hematochezia Musculoskeletal: Reports: Extremity Pain. Denies: Myalgias, Arthralgias, Neck pain, Back pain, Swelling Skin: Denies: Rash, Wounds Neurological: Reports: Parasthesia. Denies: Weakness, Numbness Psych: Reports: Depression, Anxiety Allergy: Denies: Uticaria, Swelling of the mouth, Swelling of the tongue Physical Exam Vital Signs/Narrative: Vital Signs Temp Pulse Resp BP Pulse Ox 09/15/19 11:51 98.3 F 88 20 H 153/100 H 100 Inital Vital Signs reviewed: Yes General: Well nourished, Well developed, No Acute Distress Head: Normocephalic, Atraumatic Eyes: Perrl, EOMI. Negative for: Pale conjunctiva, Scleral icterus ENT: Moist mucous membranes, No rhinorrhea Neck: Supple, Nontender, No lymphadenopathy, No JVD Cardiovascular: Regular rate, Regular rhythm, No murmurs, Normal S1, Normal S2 Respiratory: No distress, CTA bilaterally, Chest nontender Extremities: No edema, - - Patient has hair on his legs and toes. DP and PT pulses 2+ bilaterally. Capillary refill is normal. There is no evidence of trauma. Patient complained of pain to light touch.. Negative for: Nontender Skin: Normal color, No rash, No Trauma. Negative for: Cyanosis, Diaphoresis, Jaundice Neurological: Alert, Oriented x3, Cranial nerves II-XII grossly intact, Normal Strength, Normal Sensation Psychological: Depressed Diagnostic/Tx/Re-eval - Medical Decision Making Patient presents with neuropathic pain. He understands due to poorly controlled diabetes. He has no constitutional symptoms. There is no evidence of neurovascular compromise. Plan is lidocaine patch and to follow-up with his primary care physician. He was told may need to change medicine from gabapentin to either Lyrica or Tegretol to see if these meds may better control his neuropathic pain. ED Disposition - Plan for ED Patient: Disposition: Home or Assisted Living Diagnosis: Diabetic neuropathy, painful Instructions: NEUROPATHY, Peripheral Referrals: Scott Gomez MD [Primary Care Provider] - 3-5 Days
[2019-09-15] MEDS: Lidocaine 5% Patch 1 PATCH TOPICAL (12:22)
[2019-09-15 12:28] VITALS: PULSE 85; RESP 18
== END 2019-09-15 12:29 | disposition home or self-care (01) ==
LOC: ED 12:26
PROVIDERS: Emergency Provider Emergency Medicine; PCP Pediatrics
DX: E11.40 Type 2 diabetes mellitus with diabetic neuropathy, unspecified (principal); F32.9 Major depressive disorder, single episode, unspecified; F41.9 Anxiety disorder, unspecified; K21.9 Gastro-esophageal reflux disease without esophagitis; Z79.4 Long term (current) use of insulin; Z82.49 Family history of ischemic heart disease and other diseases of the circulatory system; K76.0 Fatty (change of) liver, not elsewhere classified
CPT/HCPCS: 99284

== ENCOUNTER 2019-09-21 03:42 | Emergency (ER) | payer MEDICAID, SELFPAY ==
[2019-09-21 03:43] VITALS: BP 158/112; PULSE 113; RESP 18; TEMP 36.6; O2SAT 100; BMI 19.5
--- NOTE | 2019-09-21 04:04 | ED.VIS.GEN ---
History of Present Illness Chief Complaint: Lower Extremity Injury Informant: Patient Onset: Month(s) - 1-2 Context: Gradual Onset Timing: Continuous Quality: burning, pain Location: left greater than right LE Current Severity: Severe Maximum Severity: Severe Worsened by: touching, putting on socks/shoes Relieved by: nothing; recently increased gabapentin Associated Symptoms: constipation; recently taking hydrocodone but now gone Narrative: Patient presents with worsening of the same symptoms that he has had for the last month or 2, painful numbness in both of his legs. The left is worse than the right. He has been here several times in the past month for the same problem. He was placed on hydrocodone 3 weeks ago or so, he took them all and it did not help anything and 1 of his subsequent visits was due to that not helping. He currently is having some constipation, presumably or possibly as a result of narcotics which he has received from the ER multiple times. Having some mild associated abdominal discomfort, but no nausea or vomiting or fevers. No urinary issues. Blood sugars have remained pretty well controlled, no higher than 202. He has had decreased appetite due to pain, but he is eating and taking his insulin. He denies any dyspnea. He states he has been on gabapentin for about a month now, was advised due to increased pain multiple days ago to increase it by his PCP and he states it is not helping and he is just in a lot of pain tonight. This is all been very gradual in its worsening. Denies any bowel or bladder dysfunction or groin paresthesias. With regards to the details of his painful numbness, he is worse in the left leg than the right. On the right, it is from the ankle distal and just the anterior surface of his foot and ankle. On the left it is also just anterior surface, but he goes up to his knee and is worse medially than peroneally, and the worst areas are the arch of his left foot and his big toe. The other toes are not affected. He denies any low back pain. He denies any known injury causing this or being possibly responsible for the worsening. - Past Medical History (1) DKA, type 1 Status: Chronic (2) Diabetic neuropathy associated with type 1 diabetes mellitus Status: Chronic (3) Anxiety and depression Status: Chronic (4) Fatty liver Status: Chronic (5) GERD (gastroesophageal reflux disease) Status: Chronic Past Medical History - Allergies and Home Meds Allergies/Adverse Reactions: Allergies No Known Allergies Allergy (Verified 09/21/19 03:45) Primary Care Physician: Jason Good MD [Primary Care Provider] - As soon as possible Surgical History: - - BL ear tubes. Lives: With Family Smoking Status: Never smoker - Family History Maternal Family History: Family History (Last Reviewed 04/22/19 @ 11:[address] Pranay Solitario MD) Mother Kidney disease Family History: Reports: Heart Disease, Renal Disease Paternal Family History: Family History (Last Reviewed 04/22/19 @ 11:[address] Pranay Solitario MD) Mother Kidney disease Family History: Reports: Heart Disease, - - Paternal family males w/ frequent hearing disorder. Additional Family History: Family history of hearing loss on the father's side in the mail. No history of Alport syndrome. Review of Systems General: Denies: Chills, Fever, Sweats Eyes: Denies: Visual changes - bilaterally, Diplopia ENT: Denies: Rhinorrhea, Sore throat Cardiovascular: Denies: Chest pain, Palpitations Respiratory: Denies: Dyspnea, Cough, Dyspnea on exertion Gastrointestinal: Reports: Abdominal pain, Constipation. Denies: Nausea, Vomiting, Diarrhea, Melena, Hematochezia Genitourinary: Denies: Dysuria, Hematuria, Frequency Musculoskeletal: Reports: Extremity Pain. Denies: Neck pain, Back pain, Swelling Skin: Denies: Rash, Wounds Neurological: Reports: Parasthesia, Numbness. Denies: Headache, Weakness Physical Exam Vital Signs/Narrative: Vital Signs Temp Pulse Resp BP Pulse Ox 09/21/19 03:43 97.8 F 113 H 18 158/112 H 100 Inital Vital Signs reviewed: Yes General: Well nourished, Well developed, No Acute Distress Head: Normocephalic, Atraumatic Eyes: Perrl, EOMI ENT: Moist mucous membranes, No rhinorrhea Neck: Supple, Nontender Back: Nontender - Including sciatic notch bilaterally., Normal Inspection. Negative for: CVA tenderness Extremities: No edema, Tenderness - Severe, to very superficial palpation of both dorsal feet especially in the arch of the left foot and the big toe. Also sensitive on the anterior surface of the leg, both the tibial and peroneal surfaces. No calf/posterior tenderness. Positive ipsilateral left lower extremity straight leg raise with reproduction of all of his neuropathic pain with raising his leg, in doing this I am raising his leg with my hand on his calf which is nontender. Negative straight leg raise on the right. No contralateral positive leg raises. Skin: Normal color, No rash, No Trauma, - - No lesions on legs Neurological: Alert, Oriented x3, Cranial nerves II-XII grossly intact, Normal Strength, Parasthesia - Left greater than right lower extremities Psychological: Tearful - And anxious intermittently Diagnostic/Tx/Re-eval - Medical Decision Making This patient has a chronic issue, it is certainly possible it is simply diabetic neuropathy, but although possible, he seems to have relatively focal radicular involvement in the left lower extremity, mostly L5 with possibly some crossover into L4. Since the pain goes to his knee on the left, it is less likely the superficial fibular/peroneal nerve and more likely to be radicular. He may need to have nerve conduction studies given this focus, he does not seem to have obvious symptoms in his back, although certainly that is a possible source of his neuropathy. Plan is to control his pain tonight with Toradol and morphine. I do not think prescribing more narcotics is the answer. He is wondering what he is going to do after he goes home, I advised that he rest and follow-up with his doctor after the weekend soon as possible, and continue taking his gabapentin for now. ED Disposition - Plan for ED Patient: Disposition: Home or Assisted Living Diagnosis: Peripheral neuropathic pain Instructions: NEUROPATHY, Peripheral Referrals: Jason Good MD [Primary Care Provider] - As soon as possible
[2019-09-21] MEDS: Ondansetron ODT 4 MG Tablet 8 MG PO (04:16)
[2019-09-21] MEDS: Ketorolac 60 MG/2 ML Vial IM (04:17)
[2019-09-21] MEDS: morphine 8 MG/ML Syringe IM (04:17)
[2019-09-21 05:01] VITALS: PULSE 80; RESP 16; O2SAT 99
== END 2019-09-21 05:02 | disposition home or self-care (01) ==
PROVIDERS: Emergency Provider Emergency Medicine; PCP Family Medicine
DX: E10.42 Type 1 diabetes mellitus with diabetic polyneuropathy (principal); F32.9 Major depressive disorder, single episode, unspecified; K21.9 Gastro-esophageal reflux disease without esophagitis; F41.9 Anxiety disorder, unspecified; K59.00 Constipation, unspecified; Z79.4 Long term (current) use of insulin; Z82.49 Family history of ischemic heart disease and other diseases of the circulatory system
CPT/HCPCS: 96372; 99282

== ENCOUNTER 2019-09-25 09:43 | Emergency (ER) | payer MEDICAID, SELFPAY ==
[2019-09-25 09:44] VITALS: BP 148/90; PULSE 112; RESP 16; TEMP 36.4; O2SAT 99; BMI 20.3
--- NOTE | 2019-09-25 09:58 | EKG12_ITS ---
Test Reason : Blood Pressure : / mmHG Vent. Rate : 110 BPM Atrial Rate : 110 BPM P-R Int : 122 ms QRS Dur : 076 ms QT Int : 334 ms P-R-T Axes : 067 062 054 degrees QTc Int : 452 ms Sinus tachycardia Possible Left atrial enlargement Borderline ECG Confirmed by SONIDO OLMEDO, KLAUDIA ([id number]), subeditor KARLEE MCDANIEL ([id number]) on 09/27/2019 12:57:19 PM Referred By: Confirmed By:RINKU HEAD MD
--- NOTE | 2019-09-25 09:58 | RAD_ITS ---
STUDY: X-RAY CHEST REASON FOR EXAM: Male, 18 years old. CHEST PAIN, NAUSEA, VOMITING TECHNIQUE: Single AP portable view of the chest. COMPARISON: Comparison is made with prior study dated July 26, 2019. FINDINGS: The lungs are clear and expanded. There is no demonstrated pleural abnormality. Normal size heart. Normal mediastinum and amber. Normal visualized pulmonary arteries. Normal visualized aortic arch and descending thoracic aorta. Normal visualized thoracic spine. Normal visualized ribs, clavicles, and shoulders. There is no demonstrated abnormality of the visualized soft tissue structures of the upper abdomen. RAD/Chest 1 View (Portable) IMPRESSION: Normal x-ray examination of the chest. Electronically Signed: Klever Pacheco, at 10:11 EDT , Service support ,
--- NOTE | 2019-09-25 10:15 | ED.DCSUM_ITS ---
- ER Visit Summary Date of Service: 09/25/19 Chief Complaint: Nausea and vomiting History of Present Illness: The patient is a 18 M with nausea and vomiting that started this morning. He tried Zofran but did not help. He has a history of constipation, but denies any diarrhea. Denies any new abdominal pain. He does have some pain into his shoulders and chest. He checked his blood sugar and it was low last night and this morning. He says he last ate around 11:30 PM and then again this morning at 6 AM. He took his overnight insulin at midnight last night and then also NovoLog at 11:30 PM last night. He has a history of DKA, but has not had hypoglycemia before. Denies any other associated symptoms. Physical Examination: Afebrile and vital signs unremarkable except for heart rate of 112. Alert and oriented. No acute distress. HEENT exam unremarkable. Heart regular. Lungs clear. Abdomen soft and nontender. Skin normal. Test Results: EKG, chest x-ray, labs pending. Emergency Department Course and Treatment: Patient was treated with IV fluids and Phenergan while awaiting results. CBC and metabolic panel unremarkable. Glucose was 260. Troponin was normal. Ketones normal. No evidence of DKA. Chest x-ray and EKG unremarkable. Nothing to suggest ACS or cardiac, respiratory, vascular pathology. Patient does have continued pain from his neuropathy. He was treated with Motrin and then oxycodone for continued pain. He will need to follow-up with the pain doctor or his outpatient doctor for chronic pain management. His nausea has resolved. He was given a prescription for Phenergan. Monitor his sugars. Follow-up as an outpatient. Treatment Plan: As above Disposition: Discharge Impression: Nausea and vomiting Peripheral neuropathy This note was generated with [employer] software. It may contain incorrect words, spelling, and punctuation that were not noted in review of the chart prior to signing ED Disposition - Plan for ED Patient: Referrals: Jason Good MD [Primary Care Provider] -
[2019-09-25] MEDS: 0.9% Normal Saline 1,000 ML 1000 ML IV (10:19)
[2019-09-25] MEDS: proMETHazine 25 MG/ML Syringe 12.5 MG IV (10:22)
[2019-09-25 10:33] LABS: Absolute Lymphocyte Count 1.83 X10^3/uL (0.83-4.51); Absolute Neutrophil Count 2.3 X10^3/uL (2.0-7.7); Basophil# 0.03 X10^3/uL; Basophil% 0.7 % (0-1); Eosinophils% 2.2 % (0-5); Hematocrit 47.9 % (40-54); Hemoglobin 16.6 g/dL (13.0-16.5); Lymphocyte # 1.83 X10^3/ul (4.0); Lymphocyte % 39.8 % (19-41); Mean Corp Hgb Conc 34.7 g/dL (32-36); Mean Corpuscular Hgb 28.9 pg (27.0-32.0); Mean Corpuscular Volume 83.3 fL (80-94); Monocyte# 0.32 X10^3/uL; NRBC Flagged by Analyzer 0 % (0-5); Neutrophil # 2.31 X10^3/uL (2.7-7.7); Neutrophil % 50.1 % (47-70); Platelet Count 330 K/mm3 (150-450); RBC Distribution Width CV 11.2 % (11.6-14.6); RBC Distribution Width SD 33.6 fl (35.1-43.9); Red Blood Count 5.75 M/mm3 (4.6-6.2); White Blood Count 4.6 K/mm3 (4.4-11.0)
[2019-09-25 10:42] LABS: Anion Gap 4 (5-15); BUN 10 mg/dL (7-18); BUN/Creat Ratio 15.2 RATIO (10-20); Calcium,Total 9.5 mg/dL (8.5-10.1); Chloride 102 mmol/L (98-107); Creatinine, Serum 0.66 mg/dL (0.70-1.30); EST Glomerular Filtration Rate 164 mL/min (>60); Est Glom Filt Rate - Afr Amer 198 mL/min (>60); Estimated Creatinine Clearance 153.49 ml/min; Glucose 260 mg/dL (74-106); Potassium 4.2 mmol/L (3.5-5.1); Sodium Level 137 mmol/L (136-145)
[2019-09-25] MEDS: Ibuprofen 200 MG Tablet 800 MG PO (10:55)
--- NOTE | 2019-09-25 11:44 | ED.DEP ---
ED Disposition - Plan for ED Patient: Instructions: VOMITING AND DIARRHEA, Nonspecific (Adult) Prescriptions: proMETHazine tablet [Phenergan] 25 mg PO Q6H PRN PRN #10 tab PRN Reason: Nausea Prescription Printed Referrals: Jason Good MD [Primary Care Provider] -
[2019-09-25 11:54] VITALS: BP 134/76; PULSE 101; RESP 16; TEMP 36.4; O2SAT 98; O2SAT 99
== END 2019-09-25 12:00 | disposition home or self-care (01) ==
LOC: ED 10:48
PROVIDERS: Emergency Provider Emergency Medicine; PCP Family Medicine
DX: R11.2 Nausea with vomiting, unspecified (principal); E11.42 Type 2 diabetes mellitus with diabetic polyneuropathy; K21.9 Gastro-esophageal reflux disease without esophagitis; Z79.4 Long term (current) use of insulin
CPT/HCPCS: 71045; 80048; 82009; 84484; 85025; 93005; 96361; 96374; 99285; J7030

== ENCOUNTER 2019-09-28 14:41 | Emergency (ER) | payer MEDICAID, SELFPAY ==
[2019-09-28 14:43] VITALS: BP 142/87; PULSE 155; RESP 17; TEMP 36.9; O2SAT 97; BMI 19.3
--- NOTE | 2019-09-28 15:03 | ED.VIS.GEN ---
History of Present Illness Informant: Patient Onset: Yesterday Context: Gradual Onset Timing: Continuous Quality: Nausea Location: Stomach Current Severity: Severe Maximum Severity: Severe Worsened by: Food and drink Relieved by: Nothing Associated Symptoms: High blood sugar Narrative: 18-year-old male history of insulin-dependent diabetes and neuropathy presents with concern for DKA. For the last 2 days, worsening for the last 24 hours, nausea and vomiting. He is having trouble keeping things down. He has both Zofran and Phenergan at home orally which have not helped. No abdominal pain or fevers. No chest pain shortness of breath or cough. Urinating normally. No melena no hematochezia or hematemesis or coffee-ground emesis. He has been mildly constipated because he is on chronic pain medication. He has a history of DKA this feels similar last blood sugar was about 200 Prior similar symptoms: Yes Recent Illness/Hospitalization: Yes <Alex Menard - Last Filed: 09/28/19 17:06> <Reji Hector - Last Filed: 09/28/19 21:11> Chief Complaint: Nausea/Vomiting Past Medical History Prior records reviewed: Yes Past Medical History: - - Insulin-dependent diabetes mellitus, peripheral neuropathy Surgical History: - - BL ear tubes. Lives: With Family Smoking Status: Never smoker Alcohol: None - Family History Maternal Family History: Family History (Last Reviewed 04/22/19 @ 11:[address] Pranay Solitario MD) Mother Kidney disease Family History: Reports: Heart Disease, Renal Disease Paternal Family History: Family History (Last Reviewed 04/22/19 @ 11:[address] Pranay Solitario MD) Mother Kidney disease Family History: Reports: Heart Disease, - - Paternal family males w/ frequent hearing disorder. Additional Family History: Family history of hearing loss on the father's side in the mail. No history of [place] syndrome. <Alex Menard - Last Filed: 09/28/19 17:06> - Family History Maternal Family History: Family History (Last Reviewed 04/22/19 @ 11:[address] Pranay Solitario MD) Mother Kidney disease Paternal Family History: Family History (Last Reviewed 04/22/19 @ 11:[address] Pranay Solitario MD) Mother Kidney disease <Reji Hector - Last Filed: 09/28/19 21:11> - Allergies and Home Meds Allergies/Adverse Reactions: Allergies No Known Allergies Allergy (Verified 09/28/19 14:43) Primary Care Physician: Jason Good MD [Primary Care Provider] - Review of Systems All systems negative except as indicated General: Denies: Chills, Fever Eyes: Denies: Visual changes - bilaterally, Blurred Vision - bilaterally, Diplopia ENT: Denies: Rhinorrhea, Sore throat Cardiovascular: Denies: Chest pain, Palpitations, Heart racing Respiratory: Denies: Dyspnea, Cough, Sputum Gastrointestinal: Reports: Nausea, Vomiting, Constipation. Denies: Abdominal pain, Diarrhea, Melena, Hematochezia Genitourinary: Denies: Dysuria, Hematuria, Frequency Musculoskeletal: Denies: Myalgias, Arthralgias, Swelling, Extremity Pain Skin: Denies: Rash, Abscess, Abrasions, Wounds Neurological: Denies: Headache, Weakness, Parasthesia, Numbness Endocrine: Reports: Polyuria, Polydipsia <Alex Menard - Last Filed: 09/28/19 17:06> Physical Exam Vital Signs/Narrative: Vital Signs Temp Pulse Resp BP Pulse Ox 09/28/19 14:43 98.4 F 155 H 17 142/87 H 97 Inital Vital Signs reviewed: Yes General: Well nourished, Well developed, No Acute Distress Head: Normocephalic, Atraumatic Eyes: Perrl, EOMI ENT: Moist mucous membranes, No rhinorrhea Neck: Supple, Nontender, No lymphadenopathy, No JVD Cardiovascular: Regular rhythm, Tachycardia Respiratory: No distress, CTA bilaterally, Chest nontender Abdomen: Soft, Nontender, Nondistended, Normal bowel sounds, No masses Back: Nontender, Normal Inspection Extremities: Nontender, No edema Skin: Normal color, No rash, No Trauma Neurological: Alert, Oriented x3 Psychological: Normal affect, Normal Mood <Alex Menard - Last Filed: 09/28/19 17:06> Vital Signs/Narrative: Vital Signs Pulse Resp BP 09/28/19 17:34 110 H 16 161/109 H <Reji Hector - Last Filed: 09/28/19 21:11> Diagnostic/Tx/Re-eval - Medical Decision Making Patient was treated with IV fluids as well as IV Phenergan. CBC BMP were remarkable for glucose of 300, CBC unremarkable, anion gap, sodium and potassium are both normal. Ketones are negative. Repeat exam patient feels improved. Tolerating by mouth. Repeat abdominal exam soft and nontender. Will be given 10 units of insulin and discharged. He is not in DKA he has both Zofran and Phenergan at home as well as Tylenol and ibuprofen and has an appointment on Monday which is in 2 days with pain management <Alex Menard - Last Filed: 09/28/19 17:06> - Medical Decision Making Patient was seen with me. I did a [id number] examination with the patient. Patient presents with abdominal pain and possible DKA. Patient states he feels like he is in DKA. Patient admits to some nausea and vomiting. Patient denies any diarrhea. Patient states he is actually been constipated. Patient denies any fevers or chills. Vital signs are stable. Patient is afebrile. Patient is in no acute distress. Oral mucosa is pink and moist. Neck is supple. Trachea is midline. There is no JVD. Heart was regular rate and rhythm. Lungs are clear and equal bilaterally. Abdomen is soft. Bowel sounds are normal. There is mild diffuse tenderness. There is no rebound or guarding noted. Cranial nerves II through XII are intact. There are no focal motor or sensory deficits noted. Patient was given IV fluids. Labs were unremarkable. Glucose was slightly elevated at 300. Patient was given a dose of subcu insulin for this. Patient has normal anion gap. Ketones were negative. Patient was advised of his findings. Patient was instructed to follow-up with his primary care physician in 5 to 7 days. Patient understood and was agreeable with the plan. All questions were answered. <Reji Hector - Last Filed: 09/28/19 21:11> ED Disposition <Alex Menard - Last Filed: 09/28/19 17:06> <Reji Hector - Last Filed: 09/28/19 21:11> - Plan for ED Patient: Disposition: Home or Assisted Living Diagnosis: DM I (diabetes mellitus, type I), uncontrolled, Diabetic neuropathy associated with type 1 diabetes mellitus, GERD (gastroesophageal reflux disease), Hyperglycemia due to type 1 diabetes mellitus, Nausea and vomiting Instructions: Hyperglycemia (High Blood Sugar), VOMITING (4y-Adult) Referrals: Jason Good MD [Primary Care Provider] -
[2019-09-28] MEDS: proMETHazine 25 MG/ML Syringe 12.5 MG IV (15:12)
[2019-09-28] MEDS: 0.9% Normal Saline 1,000 ML 1000 ML IV (15:12)
[2019-09-28 15:35] LABS: Absolute Lymphocyte Count 2.42 X10^3/uL (0.83-4.51); Absolute Neutrophil Count 3.6 X10^3/uL (2.0-7.7); Basophil# 0.03 X10^3/uL; Basophil% 0.4 % (0-1); Eosinophil# 0.13 X10^3/uL; Eosinophils% 1.9 % (0-5); Hematocrit 49.5 % (40-54); Hemoglobin 17.2 g/dL (13.0-16.5); Lymphocyte # 2.42 X10^3/ul (4.0); Lymphocyte % 35.2 % (19-41); Mean Corp Hgb Conc 34.7 g/dL (32-36); Mean Corpuscular Volume 83.3 fL (80-94); Mean Platelet Vol. 8.8 fl (6.2-12.0); Monocyte# 0.65 X10^3/uL; Monocyte% 9.5 % (0-10); NRBC Flagged by Analyzer 0 % (0-5); Neutrophil # 3.61 X10^3/uL (2.7-7.7); Neutrophil % 52.6 % (47-70); Platelet Count 413 K/mm3 (150-450); RBC Distribution Width CV 11.4 % (11.6-14.6); RBC Distribution Width SD 34.3 fl (35.1-43.9); Red Blood Count 5.94 M/mm3 (4.6-6.2); White Blood Count 6.9 K/mm3 (4.4-11.0)
[2019-09-28 15:47] LABS: Anion Gap 6 (5-15); BUN 15 mg/dL (7-18); BUN/Creat Ratio 26.2 RATIO (10-20); Calcium,Total 9.6 mg/dL (8.5-10.1); Chloride 108 mmol/L (98-107); Creatinine, Serum 0.57 mg/dL (0.70-1.30); EST Glomerular Filtration Rate 191 mL/min (>60); Est Glom Filt Rate - Afr Amer 231 mL/min (>60); Estimated Creatinine Clearance 168.13 ml/min; Glucose 305 mg/dL (74-106); Potassium 4.2 mmol/L (3.5-5.1); Sodium Level 140 mmol/L (136-145)
[2019-09-28 16:14] LABS: Bacteria 0 SEEN /hpf (None Seen); Red Blood Cells-Urine 0 SEEN /hpf (0-5); Squamous Epithelial Cells - UA 0 SEEN /hpf (0-5)
[2019-09-28 16:16] LABS: Color, Urine Yellow (Yellow); Glucose, Dipstick 1000 mg/dl (Normal); Ketone-Dipstick 15 mg/dl (Negative); Leukocyte Esterase-Dipstick Negative /ul (Negative); Nitrite-Dipstick Negative (Negative); Occult Blood-Urine Negative /ul (Negative); Protein-Dipstick 30 mg/dl (Negative); Urine Bilirubin Dipstick Negative (Negative); Urine Clarity Sl. Cloudy (Clear); Urine Urobilinogen Normal (Normal)
[2019-09-28 16:22] LABS: Mucous, Urine 1+ /hpf (<or=2+); White Blood Cells 0-5 SEEN /hpf (0-5)
[2019-09-28] MEDS: oxyCODONE 5 MG Tablet PO (16:47)
[2019-09-28] MEDS: Insulin Lispro 100 UNIT/ML INSULN.PEN 10 UNIT SC (16:48)
[2019-09-28 17:34] VITALS: BP 161/109; PULSE 110; RESP 16
== END 2019-09-28 17:36 | disposition home or self-care (01) ==
PROVIDERS: Emergency Provider Physician Assistant Medical; PCP Family Medicine
DX: E10.65 Type 1 diabetes mellitus with hyperglycemia (principal); E10.42 Type 1 diabetes mellitus with diabetic polyneuropathy; K59.00 Constipation, unspecified; K21.9 Gastro-esophageal reflux disease without esophagitis; Z79.4 Long term (current) use of insulin; Z82.49 Family history of ischemic heart disease and other diseases of the circulatory system
CPT/HCPCS: 80048; 81001; 82009; 85025; 96361; 96374; 99283; J7030

== ENCOUNTER → 2019-09-30 17:29 | Outpatient (CLI) | payer MEDICAID, SELFPAY ==
[2019-09-28 14:43] VITALS: BMI 19.3
--- NOTE | 2019-09-30 17:32 | RAD_ITS ---
STUDY: X-RAY - LUMBAR SPINE REASON FOR EXAM: Male, 18 years old. Bilateral leg pain. Neuropathy for one month. TECHNIQUE: 2 view(s) of the lumbar spine were obtained. COMPARISON: None FINDINGS: Normal lumbar lordosis. There is no substantial scoliosis. There is a normal alignment of the vertebrae. Normal vertebral bodies and endplates. Normal disc space heights. There is no evidence of acute fracture or loss of vertebral axial height. The soft tissue structures are unremarkable. RAD/Lumbar Spine 2 or 3 Views IMPRESSION: Normal x-ray examination of the lumbar spine. Electronically Signed: Chris Cespedes DO at 22:41 EDT Tel [phone], Service support ,
--- NOTE | 2019-09-30 17:42 | RAD_ITS ---
STUDY: X-RAY - CERVICAL SPINE REASON FOR EXAM: Male, 18 years old. Bilateral leg pain. Neuropathy for one month. TECHNIQUE: 3 view(s) of the cervical spine were obtained. COMPARISON: None FINDINGS: Normal anterior atlantoaxial articulation. Normal odontoid process. Normal cervical lordosis. Normal vertebral bodies and endplates. Normal disc space heights. There is no evidence of acute fracture or loss of vertebral axial height. There is maintenance of normal alignment. The soft tissue structures are unremarkable. RAD/Cerv Spine 2 or 3 Views IMPRESSION: Normal x-ray examination of the visualized cervical spine. Electronically Signed: Chris Cespedes DO at 22:41 EDT Tel [phone], Service support ,
== END ==
PROVIDERS: PCP Family Medicine; Referring Provider Anesthesiology Pain Medicine; Visit Provider Anesthesiology Pain Medicine
DX: M54.9 Dorsalgia, unspecified (principal); M79.606 Pain in leg, unspecified
CPT/HCPCS: 72040; 72100

== ENCOUNTER 2019-10-01 11:03 | Emergency (ER) | payer MEDICAID, SELFPAY ==
[2019-10-01 11:05] VITALS: BP 159/90; PULSE 145; RESP 16; TEMP 36.1; O2SAT 97; BMI 19.0
--- NOTE | 2019-10-01 11:26 | EKG12_ITS ---
Test Reason : HTN Blood Pressure : / mmHG Vent. Rate : 129 BPM Atrial Rate : 129 BPM P-R Int : 116 ms QRS Dur : 080 ms QT Int : 296 ms P-R-T Axes : 073 053 024 degrees QTc Int : 433 ms Sinus tachycardia Septal infarct , age undetermined Abnormal ECG Confirmed by SONIDO OLMEDO, KLAUDIA ([id number]), writer editor CHRISSIE CACERES ([id number]) on 10/07/2019 1:18:19 PM Referred By: ERNESTO Confirmed By:RINKU HEAD MD
--- NOTE | 2019-10-01 11:26 | RAD_ITS ---
STUDY: X-RAY CHEST REASON FOR EXAM: Male, 18 years old. CHEST PAIN SINCE LAST NIGHT, HTN TECHNIQUE: Frontal and lateral views of the chest. COMPARISON: 09/25/2019. FINDINGS: The lungs are clear and expanded. There is no demonstrated pleural abnormality. Normal size heart. Normal mediastinum and amber. Normal visualized pulmonary arteries. Normal visualized aortic arch and descending thoracic aorta. Normal visualized thoracic spine. Normal visualized ribs, clavicles, and shoulders. There is no demonstrated abnormality of the visualized soft tissue structures of the upper abdomen. RAD/Chest PA and Lateral IMPRESSION: Normal x-ray examination of the chest. Electronically Signed: Johnny Contreras MD at 12:26 EDT , Service support ,
--- NOTE | 2019-10-01 11:28 | ED.DCSUM_ITS ---
- ER Visit Summary Date of Service: 10/01/19 Chief Complaint: Chest pain and hypertension History of Present Illness: The patient is a 18 M who presents with chest pain hypertension that began yesterday. Patient states his pain resolved late last night but returned when he woke up this morning approximately 3 to 4 hours prior to arrival. Patient describes it as a heaviness. Patient states it is diffuse across his chest. Patient states nothing makes it better or worse. Patient states his blood pressure at home was 160/100 with a heart rate of 146. Patient states he waited 10 minutes and then rechecked his blood pressure and it was 154/102 with a heart rate of 145. Patient states he called the nurse hotline and was told to come to the emergency department. Physical Examination: Vital signs are stable except for tachycardia of 145 and a slightly elevated blood pressure 159/90. Patient is afebrile. Patient is in no acute distress. Oral mucosa is pink and moist. Neck is supple. Trachea is midline. There is no JVD. Heart was regular and tachycardic. Lungs are clear and equal bilaterally. Abdomen is soft. Bowel sounds are normal. There is no tenderness. Cranial nerves II through XII are intact. There are no focal motor or sensory deficits noted. Test Results: EKG showed sinus tachycardia with a rate of 129. There are no acute ST or T wave changes. This was unchanged compared to previous EKG dated 09/25/2019. CBC and basic metabolic profile were essentially within normal limits with exception of an elevated glucose of 217. Troponin was normal. Serum acetone was normal. PA and lateral chest x-ray was obtained. There is no acute cardiopulmonary process. This was interpreted by myself and the radiologist. Emergency Department Course and Treatment: Patient was given aspirin and 1 sublingual nitroglycerin tablet here. Patient felt better on reevaluation. Patient's blood pressure improved to 136/92 and his heart rate improved to 122. Patient denies any further symptoms at this time. Patient wants to go home. Patient has a HEART score of 2. Patient was advised that this is low risk for acute cardiac event. Patient was instructed to follow-up with his primary care physician in 5 to 7 days. Patient understood and was agreeable with the plan. All questions were answered. Disposition: Discharge home Impression: Chest pain This note was generated with [employer] software. It may contain incorrect words, spelling, and punctuation that were not noted in review of the chart prior to signing ED Disposition - Plan for ED Patient: Disposition: Home or Assisted Living Diagnosis: Chest pain Instructions: CHEST PAIN, Uncertain Cause Referrals: Jason Good MD [Primary Care Provider] - 5-7 Days
[2019-10-01 11:41] LABS: Absolute Lymphocyte Count 2.53 X10^3/uL (0.83-4.51); Absolute Neutrophil Count 3.6 X10^3/uL (2.0-7.7); Basophil# 0.02 X10^3/uL; Basophil% 0.3 % (0-1); Eosinophil# 0.12 X10^3/uL; Eosinophils% 1.7 % (0-5); Hematocrit 48.1 % (40-54); Hemoglobin 16.5 g/dL (13.0-16.5); Lymphocyte # 2.53 X10^3/ul (4.0); Lymphocyte % 36.1 % (19-41); Mean Corp Hgb Conc 34.3 g/dL (32-36); Mean Corpuscular Hgb 28.6 pg (27.0-32.0); Mean Corpuscular Volume 83.5 fL (80-94); Mean Platelet Vol. 8.5 fl (6.2-12.0); Monocyte# 0.72 X10^3/uL; Monocyte% 10.3 % (0-10); NRBC Flagged by Analyzer 0 % (0-5); Neutrophil % 51.3 % (47-70); Platelet Count 399 K/mm3 (150-450); RBC Distribution Width CV 11.6 % (11.6-14.6); RBC Distribution Width SD 34.8 fl (35.1-43.9); Red Blood Count 5.76 M/mm3 (4.6-6.2)
[2019-10-01 11:41] LABS: Bedside Glucose 218 mg/dL (70-110)
[2019-10-01 11:54] VITALS: BP 141/107; PULSE 130
[2019-10-01] MEDS: Aspirin 81 MG TAB.CHEW 324 MG PO (11:54)
[2019-10-01] MEDS: Nitroglycerin SL (ED/IMG/CATH) 0.4 MG TABLET SUBLINGUAL (11:54)
[2019-10-01 11:56] VITALS: BP 141/107; PULSE 130; RESP 18; O2SAT 99
[2019-10-01 11:56] LABS: Anion Gap 7 (5-15); BUN 16 mg/dL (7-18); BUN/Creat Ratio 25.3 RATIO (10-20); Calcium,Total 9.7 mg/dL (8.5-10.1); Chloride 104 mmol/L (98-107); Creatinine, Serum 0.63 mg/dL (0.70-1.30); EST Glomerular Filtration Rate 170 mL/min (>60); Est Glom Filt Rate - Afr Amer 206 mL/min (>60); Glucose 217 mg/dL (74-106); Potassium 3.9 mmol/L (3.5-5.1); Sodium Level 139 mmol/L (136-145)
[2019-10-01] MEDS: 0.9% Normal Saline 1,000 ML 1000 ML IV (11:56)
[2019-10-01 12:19] VITALS: BP 136/92; PULSE 122; RESP 18; O2SAT 99
--- NOTE | 2019-10-01 12:20 | ED.RN ---
second nitro given. pt with bp of 136/92 hr 120 rr 16 po99
[2019-10-01 13:00] VITALS: BP 134/92; PULSE 97; RESP 16; O2SAT 98
== END 2019-10-01 13:07 | disposition home or self-care (01) ==
PROVIDERS: Emergency Provider Emergency Medicine; PCP Family Medicine
DX: R07.9 Chest pain, unspecified (principal); M54.2 Cervicalgia; M54.9 Dorsalgia, unspecified; R51 Headache; K21.9 Gastro-esophageal reflux disease without esophagitis; E11.9 Type 2 diabetes mellitus without complications; Z79.4 Long term (current) use of insulin
CPT/HCPCS: 71046; 80048; 82009; 82962; 84484; 85025; 93005; 96360; 99284; J7030; A4216

== ENCOUNTER 2019-10-02 19:12 | Emergency (ER) | payer MEDICAID, SELFPAY ==
[2019-10-01 11:05] VITALS: BMI 19.0
[2019-10-02 19:13] VITALS: BP 124/91; PULSE 100; RESP 18; TEMP 36.8; O2SAT 98; BMI 19.0
--- NOTE | 2019-10-02 19:13 | EKG12_ITS ---
Test Reason : CHEST PAIN Blood Pressure : / mmHG Vent. Rate : 126 BPM Atrial Rate : 126 BPM P-R Int : 114 ms QRS Dur : 076 ms QT Int : 314 ms P-R-T Axes : 073 064 021 degrees QTc Int : 454 ms Sinus tachycardia Biatrial enlargement Nonspecific T wave abnormality Abnormal ECG Confirmed by SONIDO OLMEDO, KLAUDIA ([id number]), film and video editor CHRISSIE CACERES ([id number]) on 10/07/2019 1:24:28 PM Referred By: EVELYN Confirmed By:RINKU HEAD MD
--- NOTE | 2019-10-02 19:37 | ED.VISSUMM ---
- ER Visit Summary Date of Service: 10/02/19 Chief Complaint: Left sided chest pain History of Present Illness: The patient is a 18 M history of type 1 insulin-dependent diabetes with frequent DKA and bilateral lower extremity neuropathies for which he is in pain management. Patient was seen in emerge department yesterday for chest pain of uncertain etiology. A negative work-up. He states he still having left chest wall pain. Denies any falls or trauma. Never had a DVT or PE. No leg swelling. He has chronic leg pain. No hemoptysis. He denies any recent travel, surgery or hospitalization. No immobilization. Physical Examination: Young male complaining of pain vital signs are stable afebrile. Pulse ox 98% on room air no signs of hypoxia. HEENT exam unremarkable. Neck nontender no JVD. No lymphadenopathy. Lungs clear to auscultation bilaterally. Equal symmetrical. Heart tachycardic rate about 110 no murmur. Chest wall reproducibly exquisitely tender in his left chest wall. There is no ecchymosis or bruising. No subcu air or crepitance. No bony deformity. No history of trauma. Abdomen soft nontender normal bowel sounds no peritoneal signs. Extremities moves all 4. Calves are without edema or cords. He has chronic anterior lower extremity pain from neuropathy. Dorsi plantarflexion intact. Neurologically is awake alert with no focal motor deficits. Back nontender. Test Results: I reviewed his work-up from yesterday. Repeat exam at 8:49 PM patient is doing well. His pain is resolved. He is comfortable being discharged home. BG T will be obtained prior to discharge. The BG T was 212. Emergency Department Course and Treatment: Patient has obvious reproducible left chest wall pain. He has no risk factors for DVT or PE. This does not appear to be cardiac in etiology. Be treated with IV Toradol and reassess. Treatment Plan: Motrin for pain. Follow-up with his pain management. Disposition: discharge Impression: Musculoskeletal chest wall pain History of type 1 insulin-dependent diabetes History of chronic lower extremity neuropathy with chronic pain This note was generated with [employer] software. It may contain incorrect words, spelling, and punctuation that were not noted in review of the chart prior to signing ED Disposition - Plan for ED Patient: Disposition: Home or Assisted Living Instructions: CHEST WALL PAIN, Costochondritis Referrals: Jason Good MD [Primary Care Provider] - 1 Week if not improving Additional Instructions: Follow-up with your doctor if not improving. Tylenol and Motrin for pain.
[2019-10-02] MEDS: Ketorolac 30 MG/ML Syringe IM (19:54)
[2019-10-02 20:35] VITALS: PULSE 103; RESP 17; O2SAT 96
--- NOTE | 2019-10-02 20:54 | ED.DEP ---
ED Disposition - Plan for ED Patient: Disposition: Home or Assisted Living Instructions: CHEST WALL PAIN, Costochondritis Referrals: Jason Good MD [Primary Care Provider] - 1 Week if not improving Additional Instructions: Follow-up with your doctor if not improving. Tylenol and Motrin for pain.
[2019-10-02 21:11] VITALS: PULSE 105; RESP 14; O2SAT 99
[2019-10-02 21:11] LABS: Bedside Glucose 212 mg/dL (70-110)
== END 2019-10-02 21:15 | disposition home or self-care (01) ==
PROVIDERS: Emergency Provider Emergency Medicine; PCP Family Medicine
DX: R07.89 Other chest pain (principal); E10.40 Type 1 diabetes mellitus with diabetic neuropathy, unspecified; G89.29 Other chronic pain; Z79.4 Long term (current) use of insulin; M79.606 Pain in leg, unspecified
CPT/HCPCS: 82962; 93005; 99283

== ENCOUNTER 2019-10-06 14:32 | Emergency (ER) | payer MEDICAID, SELFPAY ==
[2019-10-06 14:32] VITALS: BP 129/94; PULSE 147; RESP 18; TEMP 36.9; O2SAT 100; BMI 18.4
--- NOTE | 2019-10-06 14:50 | ED.VISSUMM ---
- ER Visit Summary Date of Service: 10/06/19 Chief Complaint: Vomiting History of Present Illness: The patient is a 18 M presenting with vomiting. This started this morning. Patient believes he has vomited 3-4 times today. He has been unable to keep anything down. He tried Zofran at home. He denies blood in his emesis. Denies sick contacts or recent travel. Denies fever. He has diffuse abdominal cramping. He denies diarrhea. He is a diabetic and he states this feels similar to his previous DKA. He has checked his blood sugar today and states it has not been running high. Denies other complaints. Physical Examination: Vitals are stable. Heart rate 140 patient is afebrile. Alert no acute distress. HEENT exam dry mucous membranes Neck is supple. Lungs are clear and equal bilaterally. Heart is regular and tachycardic Abdomen is soft epigastric tenderness with no guarding or rebound Extremities are unremarkable. Skin is warm and dry. No focal neurologic deficit. Remainder of exam is unremarkable. Emergency Department Course and Treatment: Patient was given IV fluids, Phenergan. CBC, chemistries unremarkable other than glucose 222. Anion gap is normal. Liver lipase are normal. Serum acetone small. On reevaluation patient is feeling much improved. His heart rate improved to 95. His repeat abdominal exam is soft and nontender. Repeat acetone is negative. Patient is given prescription for Phenergan. He is advised to follow-up with his primary care physician. Advised return to ED for worsening complaints. Disposition: Discharge home Impression: Vomiting This note was generated with [employer] dictation software. It may contain incorrect words, spelling, and punctuation that were not noted in review of the chart prior to signing ED Disposition - Plan for ED Patient: Instructions: VOMITING (4y-Adult) Prescriptions: proMETHazine tablet [Phenergan] 25 mg PO Q6H PRN PRN #10 tab PRN Reason: Nausea Prescription Printed Referrals: aJson Good MD [Primary Care Provider] -
[2019-10-06 15:05] LABS: Absolute Lymphocyte Count 2.15 X10^3/uL (0.83-4.51); Absolute Neutrophil Count 3.4 X10^3/uL (2.0-7.7); Basophil# 0.03 X10^3/uL; Basophil% 0.5 % (0-1); Eosinophil# 0.03 X10^3/uL; Eosinophils% 0.5 % (0-5); Hematocrit 49.8 % (40-54); Hemoglobin 17.3 g/dL (13.0-16.5); Lymphocyte # 2.15 X10^3/ul (4.0); Lymphocyte % 35.9 % (19-41); Mean Corp Hgb Conc 34.7 g/dL (32-36); Mean Corpuscular Hgb 28.8 pg (27.0-32.0); Mean Corpuscular Volume 82.9 fL (80-94); Mean Platelet Vol. 8.9 fl (6.2-12.0); Monocyte% 6.7 % (0-10); NRBC Flagged by Analyzer 0 % (0-5); Neutrophil # 3.37 X10^3/uL (2.7-7.7); Neutrophil % 56.2 % (47-70); Platelet Count 404 K/mm3 (150-450); RBC Distribution Width CV 11.3 % (11.6-14.6); RBC Distribution Width SD 33.7 fl (35.1-43.9); Red Blood Count 6.01 M/mm3 (4.6-6.2)
[2019-10-06] MEDS: 0.9% Normal Saline 1,000 ML 1000 ML IV (15:05)
[2019-10-06] MEDS: proMETHazine 25 MG/ML Syringe 6.25 MG IV (15:05)
[2019-10-06 15:23] LABS: ALB/GLOB Ratio 1.3 RATIO (0.9-2.4); AST(SGOT) 21 U/L (15-37); Alanine Aminotransfer ALT/SGPT 34 U/L (16-61); Albumin, Serum 4.3 g/dL (3.2-5.0); Alkaline Phosphatase 94 U/L (45-117); Anion Gap 10 (5-15); BUN 21 mg/dL (7-18); BUN/Creat Ratio 39.9 RATIO (10-20); Chloride 105 mmol/L (98-107); Creatinine, Serum 0.53 mg/dL (0.70-1.30); EST Glomerular Filtration Rate 211 mL/min (>60); Est Glom Filt Rate - Afr Amer 255 mL/min (>60); Estimated Creatinine Clearance 172.96 ml/min; Globulin 3.3 g/dL (2.2-4.2); Glucose 222 mg/dL (74-106); Lipase 28 U/L (73-393); Potassium 4.1 mmol/L (3.5-5.1); Protein, Total 7.6 g/dL (6.4-8.2); Sodium Level 139 mmol/L (136-145)
[2019-10-06] MEDS: 0.9% Normal Saline 1,000 ML 999 ML IV ×2 (16:10→17:56)
--- NOTE | 2019-10-06 17:48 | ED.DEP ---
ED Disposition - Plan for ED Patient: Instructions: VOMITING (4y-Adult) Prescriptions: proMETHazine tablet [Phenergan] 25 mg PO Q6H PRN PRN #10 tablet PRN Reason: Nausea Referrals: Jason Good MD [Primary Care Provider] -
[2019-10-06 18:00] VITALS: BP 160/97; PULSE 101; RESP 18; O2SAT 100
[2019-10-06 18:54] VITALS: BP 141/95; PULSE 102; RESP 18; O2SAT 100
--- NOTE | 2019-10-09 18:20 | CM.ED ---
Addendum entered by Carolynn Heath 10/09/19 18:22: ED Care plan mailed along with resources. Tracking number: [id number] Original Note: Social Work Patient recommended and approved ED Care Plan by medical team. ED Care Plan entered in [employer]. Telephone call to patient, updated patient on ED Care Plan process/program. Patient voicing understanding. Patient advised that a copy of patient ED Care Plan will be mailed to patient. Confirmed [place] [address]. Patient encouraged to call with any questions. ED Care Plan faxed to patient PCP. Social Work to continue to follow as needed. Lloyd Heath MENTAL HEALTH PRACTITIONER, TANY[place]
== END 2019-10-06 18:55 | disposition home or self-care (01) ==
LOC: ED 15:14
PROVIDERS: Emergency Provider Emergency Medicine; PCP Family Medicine
DX: R11.2 Nausea with vomiting, unspecified (principal); R10.84 Generalized abdominal pain; E11.9 Type 2 diabetes mellitus without complications; Z79.4 Long term (current) use of insulin
CPT/HCPCS: 36415; 80053; 82009; 83690; 85025; 96361; 96374; 99283; J7030; A4216

== ENCOUNTER 2019-10-14 15:52 | Emergency (ER) | payer MEDICAID, SELFPAY ==
[2019-10-14 15:54] VITALS: BP 116/81; PULSE 135; RESP 17; TEMP 36.4; O2SAT 98; BMI 19.0
--- NOTE | 2019-10-14 16:19 | ED.DCSUM_ITS ---
History of Present Illness Chief Complaint: Lower Extremity Injury Detail of Chief Complaint: multiple complaints Informant: Patient Narrative: This 18-year-old agrees he is presenting with 3 separate unrelated problems today. He is a frequent visitor to our emergency department for neuropathic pain in his lower extremities, which is 1 of those complaints and unchanged compared to usual according to him. He admits this time that he has been having low back discomfort with this discomfort in his legs, which he denied to me when I saw him last month or 2 ago. His last visit was 1 week ago for vomiting and abdominal pain, though symptoms resolved but now he is having lower abdominal suprapubic discomfort for the last day or 2, along with trouble urinating. He is urinating more frequently than usual, he states it is difficult to go and when he does it [place]. No hematuria. He denies any urethral discharge when he is not urinating. He denies being sexually active or the possibility of, or history of an STD. He denies any CVA pain in his back. No fevers, nausea, vomiting. Additionally, he has pain in his right shoulder. He states that started 3 or 4 days ago acutely in the subacromial area when he was lifting some bags of groceries for his grandmother. He has been having pain ever since there. Moving makes it worse in certain positions/directions, remaining still makes it better. He denies any numbness in his right hand, or weakness distal to the shoulder. No other injuries. He states he is seeing a neurologist for his neuropathy now. - Past Medical History (1) Anxiety and depression Status: Chronic (2) DM I (diabetes mellitus, type I), uncontrolled Status: Chronic (3) Diabetic neuropathy associated with type 1 diabetes mellitus Status: Chronic (4) Fatty liver Status: Chronic (5) GERD (gastroesophageal reflux disease) Status: Chronic Past Medical History - Allergies and Home Meds Allergies/Adverse Reactions: Allergies No Known Allergies Allergy (Verified 10/14/19 15:53) Primary Care Physician: Jason Good MD [Primary Care Provider] - Surgical History: - - BL ear tubes. Smoking Status: Never smoker Drugs: None - Family History Maternal Family History: Family History (Last Reviewed 04/22/19 @ 11:[address] Pranay Solitario MD) Mother Kidney disease Family History: Reports: Heart Disease, Renal Disease Paternal Family History: Family History (Last Reviewed 04/22/19 @ 11:[address] Pranay Solitario MD) Mother Kidney disease Family History: Reports: Heart Disease, - - Paternal family males w/ frequent hearing disorder. Additional Family History: Family history of hearing loss on the father's side in the mail. No history of Alport syndrome. Review of Systems General: Denies: Chills, Fever, Sweats Eyes: Denies: Visual changes - bilaterally, Diplopia ENT: Denies: Bilateral ear pain, Rhinorrhea, Sore throat Cardiovascular: Denies: Chest pain, Palpitations Respiratory: Denies: Dyspnea, Cough, Dyspnea on exertion Gastrointestinal: Reports: Abdominal pain - Suprapubic. Denies: Nausea, Vomiti ng, Diarrhea, Melena, Hematochezia Genitourinary: Reports: Dysuria, Frequency, - - Urgency and hesitancy, - - No urethral discharge. Denies: Hematuria Musculoskeletal: Reports: Back pain, Extremity Pain. Denies: Neck pain, Swelling Skin: Denies: Rash, Wounds Neurological: Reports: Numbness - Both feet. Denies: Headache, Weakness Physical Exam Vital Signs/Narrative: Vital Signs Temp Pulse Resp BP Pulse Ox 10/14/19 15:54 97.6 F L 135 H 17 116/81 H 98 Inital Vital Signs reviewed: Yes General: Well nourished, Well developed, No Acute Distress - Well appearing. Conversive in full sentences. Head: Normocephalic, Atraumatic Eyes: Perrl, EOMI ENT: Moist mucous membranes, No rhinorrhea Neck: Supple, Nontender, No lymphadenopathy Cardiovascular: Regular rate, Regular rhythm, No murmurs Respiratory: No distress, CTA bilaterally, Chest nontender Abdomen: Soft, Nondistended, Normal bowel sounds, Tender - Suprapubic only. Negative for: Guarding, Rebound tenderness Back: Nontender, Normal Inspection Extremities: No edema, Tenderness - Right subacromial shoulder. No bony tenderness. No acromioclavicular joint tenderness. Negative Yergason. Limited abduction secondary to pain. When flexing forward with the upper arm, he is able to get all the way over his head and reach for the ceiling without any difficulty, but having a little discomfort doing that. Skin: Normal color, No rash, No Trauma Neurological: Alert, Oriented x3, Cranial nerves II-XII grossly intact, Normal Strength, Parasthesia - Both feet Psychological: - - Anxious Diagnostic/Tx/Re-eval Impressions Shoulder X-Ray 10/14/19 16:25 IMPRESSION: Small sclerotic density right humerus suggesting bone island. Otherwise, Normal x-ray examination of the shoulder. Electronically Signed: Lulu Klein MD at 16:54 EDT Tel , Service support , 10/14/19 16:25 Shoulder min 2 Views [RAD] Stat Laboratory Results 10/14/19 18:23 Urine Color Yellow Urine Clarity Clear Urine pH 5.0 Ur Specific [place] 1.025 Urine Protein 30 H Urine Glucose (UA) 250 H Urine Ketones 5 H Urine Occult Blood 10 H Urine Nitrite Negative Urine Bilirubin Negative Urine Urobilinogen Normal Ur Leukocyte Esterase Negative Urine RBC 0 SEEN Urine WBC 0 SEEN Ur Squamous Epith Cells 0 SEEN Urine Bacteria 0 SEEN Urine Mucus 1+ - Medical Decision Making Nothing acute on the patient's shoulder x-ray. His symptoms and exam are consistent with mild bursitis. Supportive care advised and follow-up as needed if his pain does not resolve in 1 to 2 weeks with avoiding painful movements and taking anti-inflammatories as needed. His chronic paresthesias he is in no distress from a does not require treatment here, he was offered an injection of Toradol but he declined. With regards to his urinalysis there is no signs of infection. He does have glycosuria so I did a BGT but it was only 150. He declines genitourinary exam, saying he does not have erythema at the head of his penis, suspect possibly urethritis, could be chemical, or infectious. Patient is amenable to a wait and see prescription for an antibiotic in case the symptoms do not resolve after 1 or 2 days. ED Disposition - Plan for ED Patient: Disposition: Home or Assisted Living Diagnosis: Bursitis of right shoulder, Neuropathic pain of both legs, Urethritis Instructions: ED BURSITIS Rotator Cuff, Urethritis in Men Prescriptions: Sulfamethoxazole/Trimethoprim [Bactrim Ds Tablet] 1 ea PO BID #6 tab Prescription Printed Referrals: Jason Good MD [Primary Care Provider] - 1 Week if not improving Additional Instructions: Your urethritis may be chemical/inflammatory. If so it may go away within the next couple days. If not, fill and take the prescription until finished.
--- NOTE | 2019-10-14 16:25 | RAD_ITS ---
STUDY: X-RAY - RIGHT SHOULDER REASON FOR EXAM: Male, 18 years old. Right shoulder pain, patient denies injury TECHNIQUE: 4 view(s) of the shoulder. COMPARISON: 2019 x-rays Limited FINDINGS: Normal glenohumeral articulation. Normal acromioclavicular joint. Normal acromion. There is a nonspecific well-corticated sclerotic density in the right humeral head suggesting a small bone island. The soft tissue structures are unremarkable. Normal visualized pulmonary apex. RAD/Shoulder min 2 Views IMPRESSION: Small sclerotic density right humerus suggesting bone island. Otherwise, Normal x-ray examination of the shoulder. Electronically Signed: Lulu Klein MD at 16:54 EDT Tel , Service support ,
--- NOTE | 2019-10-14 16:40 | CM.ED ---
SOCIAL WORK REASON FOR REFERRAL: ED CARE PLAN FOLLOW UP PATIENT HAS ACTIVE ED CARE PLAN, DR. BETANCUR AWARE. MET WITH PATIENT IN ROOM. INTRODUCED ROLE AND REASON FOR REFERRAL. PATIENT REPORTS RECEIVED COPY OF ED CARE PLAN. DISCUSSED MENTAL HEALTH HISTORY. PATIENT REPORTS HISTORY OF ANXIETY AND DEPRESSION IN THE PAST AND DENIES ANY CURRENT NEEDS FOR MENTAL HEALTH. PATIENT STATES HAS AN APPOINTMENT WITH NEUROLOGIST FOR NEUROPATHY ON 10/17/2019. EDUCATION PROVIDED ON REFERRAL FOR CASE MANAGEMENT THROUGH [facility]. PATIENT AGREED WITH REFERRAL. CALL TO [facility] AND SPOKE WITH A JOURNEYMAN POWERHOUSE OPERATOR SPECIALIST, RADHA. REFERRED PATIENT FOR CARE MANAGEMENT. RADHA REPORTS WILL FOLLOW UP WITH PATIENT. PLAN: HOME Gilda BLACKWELL MSW, PICK UP TRUCK DRIVER.
[2019-10-14 17:53] VITALS: BP 141/109; PULSE 116; RESP 18; TEMP 36.5; O2SAT 100
[2019-10-14 18:33] LABS: Bacteria 0 SEEN /hpf (None Seen); Color, Urine Yellow (Yellow); Glucose, Dipstick 250 mg/dl (Normal); Ketone-Dipstick 5 mg/dl (Negative); Leukocyte Esterase-Dipstick Negative /ul (Negative); Nitrite-Dipstick Negative (Negative); Occult Blood-Urine 10 /ul (Negative); Protein-Dipstick 30 mg/dl (Negative); Red Blood Cells-Urine 0 SEEN /hpf (0-5); Specific Gravity, Urine 1.025 (1.002-1.030); Squamous Epithelial Cells - UA 0 SEEN /hpf (0-5); Urine Bilirubin Dipstick Negative (Negative); Urine Clarity Clear (Clear); Urine Urobilinogen Normal (Normal); White Blood Cells 0 SEEN /hpf (0-5)
[2019-10-14 18:43] LABS: Mucous, Urine 1+ /hpf (<or=2+)
[2019-10-14 19:11] LABS: Bedside Glucose 151 mg/dL (70-110)
[2019-10-14 19:28] VITALS: RESP 18
== END 2019-10-14 19:29 | disposition home or self-care (01) ==
PROVIDERS: Emergency Provider Emergency Medicine; PCP Family Medicine
DX: M75.51 Bursitis of right shoulder (principal); G62.9 Polyneuropathy, unspecified; M79.604 Pain in right leg; M79.605 Pain in left leg; N34.2 Other urethritis; Z82.49 Family history of ischemic heart disease and other diseases of the circulatory system; Z79.4 Long term (current) use of insulin; K21.9 Gastro-esophageal reflux disease without esophagitis; F32.9 Major depressive disorder, single episode, unspecified; F41.9 Anxiety disorder, unspecified
CPT/HCPCS: 73030; 81001; 82962; 96372; 99282

== ENCOUNTER 2019-11-01 18:27 | Emergency (ER) | payer MEDICAID, SELFPAY ==
[2019-11-01 18:27] VITALS: BP 124/74; PULSE 142; RESP 20; TEMP 36.6; O2SAT 96; BMI 19.0
--- NOTE | 2019-11-01 18:35 | ED.RN ---
dr leonardo pt has a care plan
--- NOTE | 2019-11-01 18:46 | ED.VISSUMM ---
- ER Visit Summary Date of Service: 11/01/19 Chief Complaint: [Redness and swelling in the legs] History of Present Illness: The patient is a 18 M [presents to the emergency department with complaint of redness and swelling to his legs that he said for about 2 weeks. Patient has a history of diabetic neuropathy to both lower extremities and has had chronic pain in his legs. Patient states that today he noted that he lost feeling in some of his toes and his toes turn purple and became concerned.] Patient denies any fevers or recent illness. He denies any issues with his blood sugars as he is a diabetic and states this morning when he woke up his blood sugar was 104 and at 2 PM when he ate it was 98. He has had history of DKA. States he just does not drink much water other than when he is taking his medications. He states that over the last 2 weeks his heart rate and his blood pressure have been elevated. Patient presents to the emergency department wearing shorts and it is 35 degrees outside. Physical Examination: [HEENT-PERRLA, EOMI. Cranial nerves II through XII grossly intact. TMs clear. Mucous membranes moist. No adenopathy. Cardiovascular-regular and tachycardic with heart rate in the 140s. No murmurs auscultated. Lungs-clear to auscultation, chest wall stable without crepitus or subcu emphysema Abdomen-normoactive bowel sounds, soft, nontender, no rebound or rigidity, no peritoneal signs. Extremities-intact ?4, normal range of motion, normal pulses, atraumatic. I do not appreciate any abnormalities to patient's feet. There is no cyanosis. He has normal dorsal pedal and posterior tibial pulses and normal cap refill. There is no cyanosis noted. No evidence of cellulitis noted.] Test Results: [CBC with differential obtained was normal. Chemistries unremarkable. Glucose was 296 without evidence of DKA. His CO2 was 30 and his anion gap was 6.] Emergency Department Course and Treatment: [She was given a liter normal same fluid bolus. Patient was offered a dose of subcu insulin however he states he prefer to wait and go home and eat dinner and then give himself the insulin with dinner.] Treatment Plan: [Advised to follow-up with primary care physician in 3 to 5 days.] Disposition: [Discharged home in stable condition] Impression: [Peripheral neuropathy] This note was generated with [employer] dictation software. It may contain incorrect words, spelling, and punctuation that were not noted in review of the chart prior to signing ED Disposition - Plan for ED Patient: Referrals: Jason Good MD [Primary Care Provider] -
[2019-11-01] MEDS: 0.9% Normal Saline 1,000 ML 1000 ML IV (18:52)
[2019-11-01 19:00] LABS: Absolute Lymphocyte Count 1.96 X10^3/uL (0.83-4.51); Absolute Neutrophil Count 2.2 X10^3/uL (2.0-7.7); Basophil# 0.02 X10^3/uL; Basophil% 0.4 % (0-1); Eosinophils% 2.1 % (0-5); Hematocrit 44.9 % (40-54); Hemoglobin 15.1 g/dL (13.0-16.5); Lymphocyte # 1.96 X10^3/ul (4.0); Lymphocyte % 40.8 % (19-41); Mean Corp Hgb Conc 33.6 g/dL (32-36); Mean Corpuscular Hgb 28.3 pg (27.0-32.0); Mean Corpuscular Volume 84.1 fL (80-94); Mean Platelet Vol. 8.3 fl (6.2-12.0); Monocyte# 0.49 X10^3/uL; Monocyte% 10.2 % (0-10); NRBC Flagged by Analyzer 0 % (0-5); Neutrophil # 2.21 X10^3/uL (2.7-7.7); Neutrophil % 46.1 % (47-70); Platelet Count 393 K/mm3 (150-450); RBC Distribution Width CV 13.3 % (11.6-14.6); RBC Distribution Width SD 38.9 fl (35.1-43.9); Red Blood Count 5.34 M/mm3 (4.6-6.2); White Blood Count 4.8 K/mm3 (4.4-11.0)
[2019-11-01 19:11] LABS: Anion Gap 6 (5-15); BUN 14 mg/dL (7-18); BUN/Creat Ratio 22.7 RATIO (10-20); Calcium,Total 9.8 mg/dL (8.5-10.1); Chloride 102 mmol/L (98-107); Creatinine, Serum 0.62 mg/dL (0.70-1.30); EST Glomerular Filtration Rate 175 mL/min (>60); Est Glom Filt Rate - Afr Amer 212 mL/min (>60); Estimated Creatinine Clearance 152.42 ml/min; Glucose 296 mg/dL (74-106); Potassium 4.2 mmol/L (3.5-5.1); Sodium Level 138 mmol/L (136-145)
--- NOTE | 2019-11-01 19:19 | ED.DEP ---
ED Disposition - Plan for ED Patient: Instructions: ED PERIPHERAL NEUROPATHY Referrals: Jason Good MD [Primary Care Provider] - 5-7 Days
[2019-11-01 20:05] VITALS: BP 122/80; PULSE 125; RESP 18; O2SAT 99
== END 2019-11-01 20:16 | disposition home or self-care (01) ==
LOC: ED 19:15
PROVIDERS: Emergency Provider Emergency Medicine; PCP Family Medicine
DX: E10.42 Type 1 diabetes mellitus with diabetic polyneuropathy (principal); G89.29 Other chronic pain; R00.0 Tachycardia, unspecified
CPT/HCPCS: 80048; 85025; 99283; J7030

== ENCOUNTER 2020-01-27 08:19 | Emergency (ER) | payer MEDICAID, SELFPAY ==
[2020-01-27 08:21] VITALS: BP 119/70; PULSE 130; RESP 16; TEMP 36.4; O2SAT 97; BMI 19.4
--- NOTE | 2020-01-27 08:31 | CT_ITS ---
STUDY: CT ABDOMEN AND PELVIS WITH CONTRAST REASON FOR EXAM: Male, 19 years old. PT STATES, WHEN HE FALLS ASLEEP HE HAS UNCONTROL ABLE BM''S RADIATION DOSAGE (If Supplied By Facility): CTDIvol = ( 7.85 ) mGy, DLP = ( 300.61 ) mGycm TECHNIQUE: Transaxial images were obtained from the dome of the diaphragm to the symphysis pubis without oral contrast. IV 100mL Isovue-300 was administered. Sagittal and coronal images were reconstructed. Individualized dose optimization techniques were used for this CT. COMPARISON: Comparison is made with prior study dated August 23, 2019. FINDINGS: The visualized lung bases are unremarkable. The visualized portions of the heart are within normal limits. Normal liver. Normal gallbladder and extrahepatic biliary system. Normal spleen. Normal pancreas. Normal bilateral adrenal glands. Normal right kidney. Normal left kidney. A large amount of residual food is seen within the stomach. Normal small intestine. A large amount of fecal material is seen in the colon. The appendix is visualized and appears normal. Normal abdominal aorta. Normal inferior vena cava. Normal retroperitoneum. Normal urinary bladder. Normal abdominal wall. Normal osseous structures. CT/Abdomen/Pelvis W IV Cont ONLY IMPRESSION: A large amount of residual food is seen within the stomach. Large amount of fecal material is seen in the colon. Electronically Signed: Klever Pacheco, at 10:55 EDT , Service support ,
--- NOTE | 2020-01-27 08:32 | ED.VIS.GEN ---
History of Present Illness Chief Complaint: Diarrhea Narrative: 19 yo M with past medical history of type 1 diabetes presents with concern for diarrhea. States is been present over the past 1 week. States he has had uncontrolled bowel movements and has soiled himself overnight. Denies any fever or chills. Does admit to lower abdominal pain. States is bilateral. Denies any urinary symptoms. Denies any nausea, vomiting, chest pain, shortness of breath. Patient states that his glucose is been well controlled. Eating and drinking normally. Denies any drugs or alcohol. Past Medical History - Allergies and Home Meds Allergies/Adverse Reactions: Allergies No Known Allergies Allergy (Verified 01/27/20 08:23) Primary Care Physician: Jason Good MD [Primary Care Provider] - Past Medical History: - - Type 1 diabetes Surgical History: no surgical history, - - BL ear tubes. Lives: With Family Smoking Status: Never smoker Alcohol: None Drugs: None - Family History Maternal Family History: Family History (Last Reviewed 04/22/19 @ 11:[address] Pranay Solitario MD) Mother Kidney disease Family History: Reports: Heart Disease, Renal Disease Paternal Family History: Family History (Last Reviewed 04/22/19 @ 11:[address] Pranay Solitario MD) Mother Kidney disease Family History: Reports: Heart Disease, - - Paternal family males w/ frequent hearing disorder. Additional Family History: Family history of hearing loss on the father's side in the mail. No history of Alport syndrome. Review of Systems General: Denies: Chills, Fever, Sweats Eyes: Denies: Visual changes - bilaterally, Diplopia ENT: Denies: Rhinorrhea, Sore throat Cardiovascular: Denies: Chest pain, Palpitations Respiratory: Denies: Dyspnea, Cough, Dyspnea on exertion Gastrointestinal: Reports: Abdominal pain, Diarrhea. Denies: Nausea, Vomiting, Melena, Hematochezia Genitourinary: Denies: Dysuria, Hematuria, Frequency Musculoskeletal: Denies: Back pain, Extremity Pain Skin: Denies: Rash, Wounds Neurological: Denies: Headache, Weakness, Numbness Physical Exam Vital Signs/Narrative: Vital Signs Temp Pulse Resp BP Pulse Ox 01/27/20 08:21 97.6 F L 130 H 16 119/70 97 Inital Vital Signs reviewed: Yes General: Well nourished, Well developed, No Acute Distress Head: Normocephalic, Atraumatic Eyes: Perrl, EOMI ENT: Moist mucous membranes, No rhinorrhea Neck: Supple, Nontender Cardiovascular: Regular rate, Regular rhythm, No murmurs Respiratory: No distress, CTA bilaterally, Chest nontender Abdomen: Soft, Nondistended, Normal bowel sounds, - - Tenderness to palpation in the bilateral lower abdomen as well as suprapubic area. No rebound or rigidity. Back: Nontender, Normal Inspection Extremities: Nontender, No edema Skin: Normal color, No rash Neurological: Alert, Oriented x3, Cranial nerves II-XII grossly intact, Normal Strength, Normal Sensation Psychological: Normal affect, Normal Mood Diagnostic/Tx/Re-eval Clinical Impression(s) from Imaging Studies Abdomen/Pelvis CT 01/27/20 08:31 IMPRESSION: A large amount of residual food is seen within the stomach. Large amount of fecal material is seen in the colon. Electronically Signed: Klever Tara, at 10:55 EDT , Service support , Laboratory Data 01/27/20 01/27/20 01/27/20 08:56 08:56 09:25 WBC Cancelled Corrected WBC Cancelled RBC Cancelled Hgb Cancelled Hct Cancelled MCV Cancelled MCH Cancelled MCHC Cancelled RDW Std Deviation Cancelled RDW Coeff of Richard Cancelled Plt Count Cancelled MPV Cancelled Immature Gran % (Auto) Cancelled Neut % (Auto) Cancelled Lymph % (Auto) Cancelled [place] % (Auto) Cancelled Eos % (Auto) Cancelled Baso % (Auto) Cancelled Absolute Neuts (auto) Cancelled Absolute Lymphs (auto) Cancelled Total Counted Cancelled Neutrophils % (Manual) Cancelled Band Neutrophils % Cancelled Lymphocytes % (Manual) Cancelled Monocytes % (Manual) Cancelled Eosinophils % (Manual) Cancelled Basophils % (Manual) Cancelled Metamyelocytes % Cancelled Myelocytes % Cancelled Promyelocytes % Cancelled Blast Cells % Cancelled Plasma Cell % (Manual) Cancelled Other Cells % Cancelled Nucleated RBC % Cancelled Nucleated RBCs/100 WBC Cancelled Differential Comment Cancelled Diff Path Review Cancelled Hypersegmented Neuts Cancelled Atypical Lymphocytes Cancelled Reactive Lymphocytes Cancelled Smudge Cells Cancelled Toxic Granulation Cancelled Toxic Vacuolation Cancelled Dohle Bodies Cancelled Linda Rods Cancelled Platelet Estimate Cancelled Plt Morphology Comment Cancelled RBC Morphology Cancelled Polychromasia Cancelled Hypochromasia Cancelled Poikilocytosis Cancelled Basophilic Stippling Cancelled Anisocytosis Cancelled Microcytosis Cancelled Macrocytosis Cancelled Spherocytes Cancelled Sickle Cells Cancelled Target Cells Cancelled Tear Drop Cells Cancelled Ovalocytes Cancelled Stomatocytes Cancelled [place] Bodies Cancelled [place] Cells Cancelled Bite Cells Cancelled Crenated Cell Cancelled Acanthocytes (Spur) Cancelled Rouleaux Cancelled Schistocytes Cancelled Sodium Cancelled Cancelled Potassium Cancelled Cancelled Chloride Cancelled Cancelled Carbon Dioxide Cancelled Cancelled Anion Gap Cancelled Cancelled BUN Cancelled Cancelled Creatinine Cancelled Cancelled Estim Creat Clear Calc Cancelled Cancelled Est GFR (MDRD) Af Amer Cancelled Cancelled Est GFR (MDRD) Non-Af Cancelled Cancelled BUN/Creatinine Ratio Cancelled Cancelled Glucose Cancelled Cancelled Calcium Cancelled Cancelled Total Bilirubin Cancelled Cancelled AST Cancelled Cancelled ALT Cancelled Cancelled Alkaline Phosphatase Cancelled Cancelled Total Protein Cancelled Cancelled Albumin Cancelled Cancelled Globulin Cancelled Cancelled Albumin/Globulin Ratio Cancelled Cancelled Lipase Cancelled Cancelled 01/27/20 01/27/20 09:25 09:45 WBC 6.0 Corrected WBC RBC 4.52 L Hgb 14.2 Hct 41.9 MCV 92.7 MCH 31.4 MCHC 33.9 RDW Std Deviation 38.5 RDW Coeff of Richard 11.3 L Plt Count 308 MPV 9.3 Immature Gran % (Auto) 0.300 Neut % (Auto) 42.6 L Lymph % (Auto) 38.9 [place] % (Auto) 12.1 H Eos % (Auto) 5.4 H Baso % (Auto) 0.7 Absolute Neuts (auto) 2.5 Absolute Lymphs (auto) 2.32 Total Counted Neutrophils % (Manual) Band Neutrophils % Lymphocytes % (Manual) Monocytes % (Manual) Eosinophils % (Manual) Basophils % (Manual) Metamyelocytes % Myelocytes % Promyelocytes % Blast Cells % Plasma Cell % (Manual) Other Cells % Nucleated RBC % 0 Nucleated RBCs/100 WBC Differential Comment Diff Path Review Hypersegmented Neuts Atypical Lymphocytes Reactive Lymphocytes Smudge Cells Toxic Granulation Toxic Vacuolation Dohle Bodies Linda Rods Platelet Estimate Plt Morphology Comment RBC Morphology Polychromasia Hypochromasia Poikilocytosis Basophilic Stippling Anisocytosis Microcytosis Macrocytosis Spherocytes Sickle Cells Target Cells Tear Drop Cells Ovalocytes Stomatocytes [place] Bodies Sarah Cells Bite Cells Crenated Cell Acanthocytes (Spur) Rouleaux Schistocytes Sodium 139 Potassium 4.0 Chloride 106 Carbon Dioxide 30.0 Anion Gap 3 L BUN 13 Creatinine 0.64 L Estim Creat Clear Calc 149.94 Est GFR (MDRD) Af Amer 204 Est GFR (MDRD) Non-Af 169 BUN/Creatinine Ratio 20.4 H Glucose 289 H Calcium 8.6 Total Bilirubin 0.30 AST 74 H ALT 158 H Alkaline Phosphatase 151 H Total Protein 6.3 L Albumin 3.2 Globulin 3.1 Albumin/Globulin Ratio 1.0 Lipase 25 L - Medical Decision Making Patient appears well nontoxic. Patient tachycardic upon arrival however does state that he has chronic tachycardia for which he takes medication at home.. Patient does have mild abdominal pain on palpation. Given the type I diabetic status of the patient CT of the abdomen pelvis was done. Patient has food in his stomach as well as significant constipation. 2 factors are likely contributing to the patient's symptoms. 1 slowed gastric emptying. 2 patient is likely constipated and is having paroxysmal diarrhea. Patient was offered rectal disimpaction as well as enema which she refused. Patient will be given magnesium citrate. He has appointment with primary care provider in 2 days. Advised to return for any new or worsening symptoms. Patient also has a nonspecific transaminitis which was advised to have re-checked by PCP. He was given 1 L of normal saline. Patient does not wish to stay for his urinalysis. Discharged home in stable condition. ED Disposition - Plan for ED Patient: Disposition: Home or Assisted Living Diagnosis: Constipation, Diarrhea, Transaminitis, Delayed gastric emptying Instructions: ED Constipation Prescriptions: Magnesium Citrate [Citrate Of Magnesia] 300 ml PO X1 #1 bottle Transmission Status: Pending to [id number] Referrals: Jason Good MD [Primary Care Provider] - Additional Instructions: Follow-up with your primary care provider and have your labs rechecked due to mildly elevated liver enzymes.
[2020-01-27] MEDS: 0.9% Normal Saline 1,000 ML 1000 ML IV (09:10)
[2020-01-27 09:33] LABS: Absolute Lymphocyte Count 2.32 X10^3/uL (0.83-4.51); Absolute Neutrophil Count 2.5 X10^3/uL (2.0-7.7); Basophil# 0.04 X10^3/uL; Basophil% 0.7 % (0-1); Eosinophil# 0.32 X10^3/uL; Eosinophils% 5.4 % (0-5); Hematocrit 41.9 % (40-54); Hemoglobin 14.2 g/dL (13.0-16.5); Lymphocyte # 2.32 X10^3/ul (4.0); Lymphocyte % 38.9 % (19-41); Mean Corp Hgb Conc 33.9 g/dL (32-36); Mean Corpuscular Hgb 31.4 pg (27.0-32.0); Mean Corpuscular Volume 92.7 fL (80-94); Mean Platelet Vol. 9.3 fl (6.2-12.0); Monocyte# 0.72 X10^3/uL; Monocyte% 12.1 % (0-10); NRBC Flagged by Analyzer 0 % (0-5); Neutrophil # 2.54 X10^3/uL (2.7-7.7); Neutrophil % 42.6 % (47-70); Platelet Count 308 K/mm3 (150-450); RBC Distribution Width CV 11.3 % (11.6-14.6); RBC Distribution Width SD 38.5 fl (35.1-43.9); Red Blood Count 4.52 M/mm3 (4.6-6.2)
[2020-01-27 10:08] LABS: AST(SGOT) 74 U/L (15-37); Alanine Aminotransfer ALT/SGPT 158 U/L (16-61); Albumin, Serum 3.2 g/dL (3.2-5.0); Alkaline Phosphatase 151 U/L (45-117); Anion Gap 3 (5-15); BUN 13 mg/dL (7-18); BUN/Creat Ratio 20.4 RATIO (10-20); Calcium,Total 8.6 mg/dL (8.5-10.1); Chloride 106 mmol/L (98-107); Creatinine, Serum 0.64 mg/dL (0.70-1.30); EST Glomerular Filtration Rate 169 mL/min (>60); Est Glom Filt Rate - Afr Amer 204 mL/min (>60); Estimated Creatinine Clearance 149.94 ml/min; Globulin 3.1 g/dL (2.2-4.2); Glucose 289 mg/dL (74-106); Lipase 25 U/L (73-393); Protein, Total 6.3 g/dL (6.4-8.2); Sodium Level 139 mmol/L (136-145)
--- NOTE | 2020-01-27 12:11 | CM.ED ---
Social Work Consult: Active ED Care Plan Informant: Self-Referral Met with patient in room. Introduced self as well as healthcare social worker role. Patient agreeable to speaking with this healthcare social worker. Patient familiar with social work services due to ED Care Plan. Per chart review patient was referred to Telephone Quotation Clerk with [employer]. Patient states to have been set up with a Telephone Quotation Clerk and it was helpful, but I am done with that now. Patient states to be following up with specialist and PCP. Patient states to have recently been established with an Insulin pump and this is helping a lot. Patient state to have an appointment with patient management, Dr. Roblero tomorrow and to see PCP in the next week. Patient states to be active with [employer] and to have an appointment in 2-3 months. Patient states no active concerns and that patient neuropathy has gotten better. Patient states I am eating better. This healthcare social worker exploring option of Diabetic Clinic with patient. Patient states I have heard of it. Patient not sure about referral. This healthcare social worker educating patient on referral process for the Diabetic Clinic, patient aware that a doctors order is needed. This healthcare social worker inquiring about patient mental health as patient has a history of depression and anxiety. Patient states to have no concerns for mental health. Patient denies any current or recent thoughts of Suicide. Patient states main stressor is not being able to work. Patient states to have been working at [employer] and unable to return due to medical reasons. Patient planning to speaking with [employer] Administration about getting on short term disability as patient does not have any income, currently. This healthcare social worker also educating patient that Railroad Dining Car Steward/Stewardess with [employer] might be able to assist with short term disability application as well, patient voices understanding and aware of how to set up services again if desired. Patient states to continue to be living with grandmother and it is going well. Active listening and support provided. Will continue to follow as needed. Lloyd MEJIA, TANYA
[2020-01-27 12:18] VITALS: BP 121/90; PULSE 105; RESP 18; O2SAT 100
== END 2020-01-27 12:19 | disposition home or self-care (01) ==
PROVIDERS: Emergency Provider Emergency Medicine; PCP Family Medicine
DX: K59.00 Constipation, unspecified (principal); R19.7 Diarrhea, unspecified; R74.0 Nonspecific elevation of levels of transaminase and lactic acid dehydrogenase [LDH]; K30 Functional dyspepsia; E10.9 Type 1 diabetes mellitus without complications; Z79.4 Long term (current) use of insulin; Z82.49 Family history of ischemic heart disease and other diseases of the circulatory system
CPT/HCPCS: 74177; 80053; 83690; 85025; 99285; J7030; Q9967; A4216

== ENCOUNTER 2020-02-21 18:37 | Emergency (ER) | payer MEDICAID, SELFPAY ==
[2020-02-21 18:37] VITALS: BP 128/83; PULSE 115; RESP 14; TEMP 36.2; O2SAT 100; BMI 17.4
--- NOTE | 2020-02-21 19:23 | ED.VIS.GEN ---
History of Present Illness Chief Complaint: Eye Problem Informant: Patient Onset: Today Context: Sudden Onset Timing: Intermittent Quality: Wiggly line in his visual field Location: Left eye Current Severity: No symptoms unless he moves his eye Maximum Severity: Mild Worsened by: Eye movement Relieved by: Remaining still Associated Symptoms: None Narrative: She is a type I diabetic since the age of 2. He states he had problem with his video consult. He bent down and when he looked up he felt there was problems with his vision. When asked to clarify he states he saw squiggly lines in his left eye. He denies a veil sensation or decreased vision. He denies loss of vision. He denies pain. He denies history of trauma. He did not sneeze. He denies history of retinal detachment. He states his vision is not good. He did not bring his glasses. Prior similar symptoms: No Recent Illness/Hospitalization: No - Past Medical History (1) Anxiety and depression Status: Chronic (2) DM I (diabetes mellitus, type I), uncontrolled Status: Chronic (3) Fatty liver Status: Chronic (4) GERD (gastroesophageal reflux disease) Status: Chronic Past Medical History - Allergies and Home Meds Allergies/Adverse Reactions: Allergies No Known Allergies Allergy (Verified 02/21/20 18:39) Primary Care Physician: Jason Good MD [Primary Care Provider] - Prior records reviewed: Yes Surgical History: no surgical history, - - BL ear tubes. Lives: With Family Smoking Status: Never smoker Alcohol: None Drugs: None - Family History Maternal Family History: Family History (Last Reviewed 04/22/19 @ 11:[address] Pranay Solitario MD) Mother Kidney disease Family History: Reports: Heart Disease, Renal Disease Paternal Family History: Family History (Last Reviewed 04/22/19 @ 11:[address] Pranay Solitario MD) Mother Kidney disease Family History: Reports: Heart Disease, - - Paternal family males w/ frequent hearing disorder. Additional Family History: Family history of hearing loss on the father's side in the mail. No history of Alport syndrome. Review of Systems General: Denies: Chills, Fever, Sweats Eyes: Reports: Visual changes - left ENT: Denies: Bilateral ear pain, Rhinorrhea, Sore throat Cardiovascular: Denies: Chest pain Gastrointestinal: Denies: Nausea, Vomiting Musculoskeletal: Denies: Myalgias, Arthralgias, Neck pain, Back pain Skin: Denies: Rash Neurological: Denies: Headache Hematologic: Denies: Easy bruising, Easy bleeding Physical Exam Vital Signs/Narrative: Vital Signs Temp Pulse Resp BP Pulse Ox 02/21/20 18:37 97.1 F L 115 H 14 128/83 H 100 Inital Vital Signs reviewed: Yes General: Well nourished, Well developed, No Acute Distress Head: Normocephalic, Atraumatic Eyes: Perrl, EOMI, - - There is no APD. There is no papilledema noted right or left. No exudate or hemorrhages noted. There is no photophobia. Patient states he was unable to see the chart because he did not bring his glasses. He would not attempt to look through the pinhole.. Negative for: Pale conjunctiva, Scleral icterus ENT: Moist mucous membranes, No rhinorrhea, TM's clear Neck: Supple, Nontender, No lymphadenopathy, No JVD Skin: Normal color, No rash Neurological: Alert, Oriented x3, Cranial nerves II-XII grossly intact, Normal Strength, Normal Sensation Psychological: Normal affect Diagnostic/Tx/Re-eval - Medical Decision Making Probably has a small vitreous bleed. There is no symptoms to suggest a retinal tear. He has seen Dr. Han. He was instructed to contact the office in the morning to be seen tomorrow morning. ED Disposition - Plan for ED Patient: Disposition: Home or Assisted Living Diagnosis: Vitreous hemorrhage of left eye due to diabetes mellitus Instructions: Treating Flashes and Floaters Referrals: Jason Good MD [Primary Care Provider] - Charles Han MD [STAFF PHYSICIAN] - 02/21/20 Additional Instructions: Call office tomorrow morning at 8 AM to be seen tomorrow morning.
[2020-02-21 19:43] VITALS: BP 122/60; PULSE 87; RESP 18; O2SAT 97
== END 2020-02-21 19:44 | disposition home or self-care (01) ==
PROVIDERS: Emergency Provider Emergency Medicine; PCP Family Medicine
DX: H43.12 Vitreous hemorrhage, left eye (principal); E10.9 Type 1 diabetes mellitus without complications; F32.9 Major depressive disorder, single episode, unspecified; F41.9 Anxiety disorder, unspecified; K21.9 Gastro-esophageal reflux disease without esophagitis; Z79.4 Long term (current) use of insulin; Z82.49 Family history of ischemic heart disease and other diseases of the circulatory system
CPT/HCPCS: 99282

== ENCOUNTER 2020-03-14 23:28 | Inpatient (IN) | payer MEDICAID, SELFPAY ==
[2020-03-14 23:29] VITALS: BP 106/66; PULSE 125; RESP 15; TEMP 36.2; O2SAT 100; BMI 20.6
--- NOTE | 2020-03-14 23:57 | ED.VIS.GEN ---
History of Present Illness Chief Complaint: Abd Pain Informant: Patient Onset: Yesterday Context: Gradual Onset Current Severity: Moderate Maximum Severity: Moderate Narrative: Patient presents with lower abdominal pain that started yesterday. He has had nausea but no vomiting. No dysuria or hematuria. He denies any prior abdominal surgeries. He did not want to eat much today stating that his pain was worse when he would try to eat. - Past Medical History (1) Anxiety and depression Status: Chronic (2) DM I (diabetes mellitus, type I), uncontrolled Status: Chronic (3) Diabetic neuropathy associated with type 1 diabetes mellitus Status: Chronic (4) GERD (gastroesophageal reflux disease) Status: Chronic Past Medical History - Allergies and Home Meds Allergies/Adverse Reactions: Allergies No Known Allergies Allergy (Verified 03/14/20 23:31) Primary Care Physician: Jason Good MD [Primary Care Provider] - Surgical History: no surgical history, - - BL ear tubes. Smoking Status: Never smoker - Family History Maternal Family History: Family History (Last Reviewed 04/22/19 @ 11:[address] Pranay Solitario MD) Mother Kidney disease Family History: Reports: Heart Disease, Renal Disease Paternal Family History: Family History (Last Reviewed 04/22/19 @ 11:[address] Pranay Solitario MD) Mother Kidney disease Family History: Reports: Heart Disease, - - Paternal family males w/ frequent hearing disorder. Additional Family History: Family history of hearing loss on the father's side in the mail. No history of Alport syndrome. Review of Systems General: Denies: Chills, Fever Eyes: Denies: Visual changes - bilaterally ENT: Denies: Bilateral ear pain Cardiovascular: Denies: Chest pain Respiratory: Denies: Dyspnea, Cough Gastrointestinal: Reports: Abdominal pain, Nausea. Denies: Vomiting, Diarrhea Genitourinary: Denies: Dysuria, Hematuria Musculoskeletal: Denies: Swelling, Extremity Pain Skin: Denies: Rash Neurological: Denies: Headache Hematologic: Denies: Easy bruising, Easy bleeding Allergy: Denies: Uticaria Physical Exam Vital Signs/Narrative: Vital Signs Temp Pulse Resp BP Pulse Ox 03/14/20 23:29 97.1 F L 125 H 15 106/66 100 Inital Vital Signs reviewed: Yes General: Well nourished, Well developed Head: Normocephalic ENT: Moist mucous membranes Neck: Supple Cardiovascular: Regular rate, Regular rhythm Respiratory: No distress, CTA bilaterally Abdomen: Soft, Tender - Diffuse tenderness to palpation.. Negative for: Guarding, Rebound tenderness Extremities: Nontender Skin: Normal color Neurological: Alert, Oriented x3 Psychological: Normal affect Diagnostic/Tx/Re-eval Impressions Abdomen/Pelvis CT 03/15/20 23:56 IMPRESSION: Perforated appendicitis. Electronically Signed: Maria Elena Resendez, at 2:25 EDT Tel , Service support , ADDENDUM: 03/15/20 0235 IMPRESSION: Perforated appendicitis. N.B. : The above information has been verbally conveyed by Maria Elena Resendez to Staci Gan MD, on 03/15/2020 02:28:32 (ET). Electronically Signed: Maria Elena Resendez, at 2:25 EDT Tel , Service support , 03/15/20 23:56 Abdomen/Pelvis WITH Contrast [CT] Stat Laboratory Results 03/15/20 03/15/20 00:05 00:05 WBC 14.2 H RBC 4.68 Hgb 13.7 Hct 40.9 MCV 87.4 MCH 29.3 MCHC 33.5 RDW Std Deviation 37.3 RDW Coeff of Richard 11.6 Plt Count 315 MPV 10.2 Immature Gran % (Auto) 0.500 Neut % (Auto) 71.7 H Lymph % (Auto) 16.2 L Rooks % (Auto) 10.8 H Eos % (Auto) 0.6 Baso % (Auto) 0.2 Absolute Neuts (auto) 10.2 H Absolute Lymphs (auto) 2.29 Nucleated RBC % 0 Differential Comment SCANNED Diff Path Review May foll Sodium 137 Potassium 4.1 Chloride 105 Carbon Dioxide 27.0 Anion Gap 5 BUN 12 Creatinine 0.58 L Estim Creat Clear Calc 175.25 Est GFR (MDRD) Af Amer 227 Est GFR (MDRD) Non-Af 188 BUN/Creatinine Ratio 20.7 H Glucose 177 H Calcium 8.8 Total Bilirubin 1.10 H Direct Bilirubin 0.17 AST 94 H ALT 226 H Alkaline Phosphatase 159 H Total Protein 6.7 Albumin 3.2 Globulin 3.5 Lipase < 10 L - Medical Decision Making Patient was given morphine and Zofran on arrival for pain. He was given IV fluids. On repeat examination he is resting comfortably in bed watching videos on his phone. Test results are discussed with him. He is given a dose of IV Zosyn. I discussed the case with Dr. Hollingsworth, no doc surgeon senior sales compensation analyst. She is giving admission orders at this time. ED Disposition - Plan for ED Patient: Disposition: Acute Care Hospital [facility] Diagnosis: Perforated appendicitis Referrals: Jason Good MD [Primary Care Provider] -
[2020-03-15] VITALS (14 sets, daily range): BP systolic 92–109; BP diastolic 47–75; PULSE 79–120; RESP 15–20; TEMP 36.4–37.2; O2SAT 96–100; BMI 21.2; BMI 21.1
[2020-03-15] MEDS: 0.9% Normal Saline 1,000 ML 150 ML IV (00:14)
[2020-03-15] MEDS: Ondansetron 4 MG/2 ML Vial IV ×2 (00:14→08:58)
[2020-03-15] MEDS: Morphine 4 MG/ML Syringe IV ×3 (00:14→15:33)
[2020-03-15 00:18] LABS: Absolute Lymphocyte Count 2.29 X10^3/uL (0.83-4.51); Absolute Neutrophil Count 10.2 X10^3/uL (2.0-7.7); Basophil# 0.03 X10^3/uL; Basophil% 0.2 % (0-1); Eosinophil# 0.08 X10^3/uL; Eosinophils% 0.6 % (0-5); Hematocrit 40.9 % (40-54); Hemoglobin 13.7 g/dL (13.0-16.5); Lymphocyte # 2.29 X10^3/ul (4.0); Lymphocyte % 16.2 % (19-41); Mean Corp Hgb Conc 33.5 g/dL (32-36); Mean Corpuscular Hgb 29.3 pg (27.0-32.0); Mean Corpuscular Volume 87.4 fL (80-94); Mean Platelet Vol. 10.2 fl (6.2-12.0); Monocyte# 1.53 X10^3/uL; Monocyte% 10.8 % (0-10); NRBC Flagged by Analyzer 0 % (0-5); Neutrophil # 10.17 X10^3/uL (2.7-7.7); Neutrophil % 71.7 % (47-70); POSITIVE DIFFERENTIAL YES; Platelet Count 315 K/mm3 (150-450); RBC Distribution Width CV 11.6 % (11.6-14.6); RBC Distribution Width SD 37.3 fl (35.1-43.9); Red Blood Count 4.68 M/mm3 (4.6-6.2); White Blood Count 14.2 K/mm3 (4.4-11.0)
[2020-03-15 00:33] LABS: Differential Indicated SCAN CRITERIA MET
[2020-03-15 01:16] LABS: AST(SGOT) 94 U/L (15-37); Alanine Aminotransfer ALT/SGPT 226 U/L (16-61); Albumin, Serum 3.2 g/dL (3.2-5.0); Alkaline Phosphatase 159 U/L (45-117); Anion Gap 5 (5-15); BUN 12 mg/dL (7-18); BUN/Creat Ratio 20.7 RATIO (10-20); Bilirubin, Direct 0.17 mg/dL (0.00-0.30); Calcium,Total 8.8 mg/dL (8.5-10.1); Chloride 105 mmol/L (98-107); Creatinine, Serum 0.58 mg/dL (0.70-1.30); EST Glomerular Filtration Rate 188 mL/min (>60); Est Glom Filt Rate - Afr Amer 227 mL/min (>60); Estimated Creatinine Clearance 175.25 ml/min; Globulin 3.5 g/dL (2.2-4.2); Glucose 177 mg/dL (74-106); Lipase < 10 U/L (73-393); Potassium 4.1 mmol/L (3.5-5.1); Protein, Total 6.7 g/dL (6.4-8.2); Sodium Level 137 mmol/L (136-145)
[2020-03-15 01:18] LABS: Differential Comment SCANNED
[2020-03-15 06:40] LABS: Bedside Glucose 115 mg/dL (70-110)
[2020-03-15 07:12] LABS: Hemoglobin A1c 8.5 % (3.8-5.6)
--- NOTE | 2020-03-15 08:04 | PCM.HP.BLA ---
History and Physical Date of Admission: 03/15/20 Chief Complaint: abdominal pain History of Present Illness: 19 y/o WM presents with abdominal pain noted since Monday. Notes nausea, but denies emesis. Complains of anorexia. CT scan reveals perforated appendicitis. WBC is 14.2K with left shift of differential. Past Medical History: diabetes anxiety disorder GERD Past Surgical History: bilateral ear tubes Medications: sinequan duloxetine neurontin insulin zofran prn phenergan Allergies: Has no known drug allergies Social history: TOB use denies Lives with grandmother Review of Systems: General - denies fevers, has anorexia Cardiovascular denies chest pain, denies heart problems Pulmonary denies shortness of breath, denies coughing up blood Gastrointestinal as per HPI, denies swallowing problems Neurological has neuropathy due to diabetes, denies seizures, denies history of head trauma, denies history of stroke Genitourinary denies burning with urination, denies blood in urine Hematological denies spontaneous/prolonged bleeding Skin denies open wounds, denies rashes Musculoskeletal had bone fracture in past Endocrine has type I diabetes Psychological denies suicidal ideation, denies hallucinations Physical examination: Vital signs Temp 97.1F HR 125 RR 15 BP 106/66 General WD/WN WM in no apparent distress, alert and oriented, not septic appearing HEENT Normocephalic. EOM intact with sclera clear and no icterus noted. Neck is supple Trachea is midline. Lungs normal breath sounds. No rales/rhonchi/wheezing noted. No labored breathing noted, such as retractions. No cough heard. Heart normal heart sounds - regular. Abdomen soft but tender in right lower quadrant with rebound - hypoactive bowel sounds Extremities no calf tenderness or swelling noted. No pitting edema noted. No obvious deformity noted. Genitourinary/Rectal deferred Skin normal skin integrity. Neurological non focal. Psychological normal affect, patient is calm and appropriate Impression: perforated appendicitis Discussion/plan: I have discussed the above with the patient and his grandmother via telephone. I have explained perforated appendicitis and what this means. I have offered the patient the procedure of laparoscopic appendectomy. I have explained the procedure to the patient. I have counseled the patient as to the risks of the procedure, including but not limited to: infection, bleeding, injury to any blood vessels/nerves, scar tissue, injury to any intrabdominal organs, injury to kidney/ureters, injury to bowel/bladder, intraabdominal abscess/bleeding, hernias at incisional sites, wound infections, possible open procedure, complications of anesthesia, postoperative pneumonia/cardiac problems/blood clots etc. the patient understands. Given the present COVID crisis, patient understands that he is at increased susceptability to COVID and/or its complications. However, we have discussed and come to the conclusion that the need for surgery overrides this risk. He agrees to proceed. I have answered all questions to the patient?s satisfaction and the patient has no further questions.
[2020-03-15] MEDS: 0.9% Normal Saline 1,000 ML 125 ML IV ×3 (08:28→17:03)
[2020-03-15] MEDS: 0.9% Saline Lock 10 ML Syringe IV (08:58)
[2020-03-15] MEDS: Insulin Bolus Pump SC ×4 (09:05→21:18)
[2020-03-15 09:26] LABS: Bedside Glucose 262 mg/dL (70-110)
--- NOTE | 2020-03-15 09:30 | APP_PTH ---
PATIENT: VAHID DE LOS SANTOS LOC: [facility]3 U#:[id number] AGE/SX: 19/M ROOM: [facility]314 RE03/15/[address]: Dr. Santa Hollingsworth MD : 2000 BED: 1 DIS: 03/18/2020 SPEC #: [id number] RECD: 03/16/20 07:20 STATUS: GUMARO REQ #: [id number] MAGALIE: 03/15/20 09:[address]: Santa Hollingsworth DEPT: SURGICAL PATHOLOGY RECD BY: Rohit Almanzar ENTERED: 03/16/20 09:10 SP TYPE: APPENDIX OTHR DR: Dr. Jason Good MD Tissues: Appendix, NOS Procedures: Surgery Specimen Level III HEADER OPERATION: Laparoscopic appendectomy PRE-OP DIAGNOSIS: Perforated appendicitis TISSUE SUBMITTED: Appendix MICROSCOPIC DIAGNOSIS Appendix, appendectomy: Acute necrotizing appendicitis. Acute serositis. AM:maría elena 03/17/20 MICROSCOPIC DESCRIPTION Slides are reviewed. GROSS DESCRIPTION Received is one container labeled with the patient's name and designated appendix. The specimen consists of a J-shaped appendix measuring 9 cm in length and up to 1.5 cm in diameter. The serosal surface is covered with cancino, purulent exudate. No obvious perforation is identified. The lumen is filled with fecal material mixed with small amount of hemorrhagic fluid. No fecalith is identified. The mucosa is congested. [place] Attendant sections are submitted in one cassette. / SJ:maría elena 03/16/20 TC:2 CPT: 28053
[2020-03-15] MEDS: Bupiv/Epi 0.25% 30 ML Vial (10:27)
--- NOTE | 2020-03-15 10:28 | OP.PCM_ITS ---
Report of Operation Date of Procedure: 03/15/20 Pre-Operative Diagnosis: perforated appendicitis Post-Operative Diagnosis: same Surgery/Procedure Performed:: laparoscopic appendectomy, placement of intraabdominal drain Description of Surgical Findings:: perforated appendicitis in right paracolic gutter, walled off, free localized purulent fluid Type of Anesthesia:: General Anesthesiologist: Jazmín Prater Specimen's removed: appendix Estimated Blood Loss (mL): < 10 ml Fluids Replaced: 500 ml RL Description of Procedure: After informed consent was obtained, the patient was brought into the Operating Room. Appropriate time out protocol was followed. The patient was placed in the supine position on the operating table. The patient was then placed under general anesthesia by the anesthesia provider. The patient?s abdomen was then prepped with a sterile surgical skin preparation and sterile surgical drapes were placed. The infraumbilical skin fold was grasped with penetrating towel clamps and the skin and subcutaneous tissues were infiltrated with 0.25% marcaine with epinephrine. An incision was then made with a 15 blade scalpel. A Veress needle was then inserted into the intraabdominal cavity and checked to be in the proper position with a normal saline drop test. A CO2 p neumoperitoneum was then created. Once this was achieved, the Veress needle was removed and a 5 mm trocar was placed in its stead. A 5 mm laparoscope was then inserted into the trocar. Careful examination of the intraabdominal contents was then done. There was no evidence of injury to any internal organs from placement of the Veress needle or the trocar. Under direct visualization, a 12mm suprapubic trocar and a 5mm left lower quadrant trocar was then placed into the intraabdominal cavity. The skin and subcutaneous tissues at these sites were first infiltrated with 0.25% marcaine with epinephrine. Attention was then directed to the right lower quadrant. The base of the appendix was visualized. The distal aspect of the appendix was within an inflammatory mass. The appendix appeared enlarged/edematous/injected/with surrounding inflammation. There was localized purulent peritoneal fluid. The mesentery of the appendix at its base was taken down by cauterizing the tissue from the free edge to the base of the appendix using the Harmonic scalpel. Once the base of the appendix was freed of surrounding tissues, then the linear gastrointestinal stapling device was brought into the abdominal cavity via the 12mm port and placed across the base of the appendix. The stapling device was fired, thus stapling across the base of the appendix and transecting it simultaneously. The appendix was grasped at its base, now freed, and then blunt dissection was done to separate the appendiceal mass from the surrounding tissues. This took some time, due to the dense inflammation. There was cloudy/purulent peritoneal fluid noted. The entire appendix, once completely from the surrounding tissues, was then placed in an Endobag and brought out via the suprapubic trocar site. The pelvic cavity was vigorously irrigated with normal saline and all irrigant was aspirated out. The appendiceal stump was carefully examined. There was no evidence of any active bleeding or fecal leakage. The surrounding tissues were also examined and there was no evidence of any active bleeding or fecal/bile leakage. The intraabdominal cavity was examined and there was no evidence of any further inflammation or tissue abnormality. A 15 Fr round passive drain was brought in via the suprapubic trocar site and the drainage bed placed in the right paracolic gutter. The CO2 pneumoperitoneum was released and all trocars were removed intact. The suprapubic fascia was reapproximated with a figure-of-8 vicryl suture. The catheter was sutured to the skin using nylon suture. All skin incisions were reapproximated with monocryl suture. Cavilon and steristrips were applied to reinforce skin closure and proper sterile dressings were placed. Sponge, needle, and instrument count were verified and correct at the time of skin closure. The patient was then extubated and brought to the Recovery Room in stable condition. Grafts/Implants Used: 15 Fr round passive drain placed - Complications none noted - Admit VTE Documentation VTE Present on Admission: Yes
[2020-03-15 10:56] LABS: Bedside Glucose 189 mg/dL (70-110)
[2020-03-15 13:25] LABS: Bedside Glucose 197 mg/dL (70-110)
[2020-03-15] MEDS: Gabapentin 300 MG Capsule 900 MG PO ×2 (14:16→21:17)
[2020-03-15] MEDS: Doxepin Hcl 25 MG Capsule PO ×2 (15:30→21:17)
[2020-03-15 17:10] LABS: Bedside Glucose 172 mg/dL (70-110)
--- NOTE | 2020-03-15 18:19 | NURSING ---
ambulated in [place] with patient.
[2020-03-15] MEDS: DULoxetine Hcl 60 MG Capsule PO (21:18)
[2020-03-15 21:30] LABS: Bacteria 0 SEEN /hpf (None Seen); Red Blood Cells-Urine 0 SEEN /hpf (0-5); Squamous Epithelial Cells - UA 0 SEEN /hpf (0-5); White Blood Cells 0 SEEN /hpf (0-5)
[2020-03-15 21:41] LABS: Color, Urine Amber (Yellow); Glucose, Dipstick 250 mg/dl (Normal); Ketone-Dipstick 50 mg/dl (Negative); Leukocyte Esterase-Dipstick Negative /ul (Negative); Nitrite-Dipstick Negative (Negative); Occult Blood-Urine Negative /ul (Negative); Protein-Dipstick Negative (Negative); Specific Gravity, Urine 1.015 (1.002-1.030); Urine Bilirubin Dipstick Negative (Negative); Urine Clarity Sl. Cloudy (Clear); Urine Urobilinogen 8 mg/dl (Normal)
[2020-03-15 22:20] LABS: Mucous, Urine 3+ /hpf (<or=2+)
[2020-03-15 22:55] LABS: Bedside Glucose 253 mg/dL (70-110)
--- NOTE | 2020-03-15 23:56 | CT_ITS ---
We are attempting to reach an attending provider to discuss findings. An addendum with communication details will be sent when the communication is complete. STUDY: CT ABDOMEN AND PELVIS WITH CONTRAST REASON FOR EXAM: Male, 19 years old. LOWER ABD PIAN X 1 DAY WITH NAUSEA TODAY AND INCREASED PAIN, ELEVATED WBC, HX DIAB WITH INSULIN PUMP RADIATION DOSAGE (If Supplied By Facility): CTDIvol = ( 8.87 ) mGy, DLP = ( 406.01 ) mGycm TECHNIQUE: Transaxial images were obtained from the dome of the diaphragm to the symphysis pubis without oral contrast. Oral and amp; IV Breeza and amp; 100mL Isovue-370 was administered. Sagittal and coronal images were reconstructed. Individualized dose optimization techniques were used for this CT. COMPARISON: None. FINDINGS: The visualized lung bases are unremarkable. The visualized portions of the heart are within normal limits. Normal liver. Normal gallbladder and extrahepatic biliary system. Normal spleen. Normal pancreas. Normal bilateral adrenal glands. Normal right kidney. Normal left kidney. Normal visualized stomach. Normal small intestine. Normal colon. There is a tubular, thick-walled appendix (>7mm), consistent with acute appendicitis. There is moderate amount of free fluid with marked stranding of the fat in the right lower quadrant suggesting perforated appendicitis. Normal abdominal aorta. Normal inferior vena cava. Normal retroperitoneum. Normal urinary bladder. Normal abdominal wall. Normal osseous structures. CT/Abdomen/Pelvis WITH Contrast IMPRESSION: Perforated appendicitis. Electronically Signed: Maria Elena Resendez, at 2:25 EDT Tel , Service support ,
[2020-03-16] MEDS: 0.9% Normal Saline 1,000 ML 125 ML IV ×3 (01:07→16:27)
[2020-03-16 03:03] VITALS: BP 98/57; PULSE 96; RESP 18; TEMP 37.1; O2SAT 95
[2020-03-16] MEDS: Morphine 4 MG/ML Syringe IV ×2 (04:34→11:13)
--- NOTE | 2020-03-16 04:46 | NURSING ---
Pt felt like his blood sugar was high and requested I check his blood sugar. His blood sugar was 254 and he administered 3.3 units of insulin using his own insulin pump @ 0445.
[2020-03-16 04:51] LABS: Bedside Glucose 234 mg/dL (70-110)
[2020-03-16] MEDS: Gabapentin 300 MG Capsule 900 MG PO ×3 (06:15→21:18)
[2020-03-16] MEDS: Doxepin Hcl 25 MG Capsule PO ×3 (06:16→21:19)
[2020-03-16 06:59] LABS: Absolute Lymphocyte Count 2.56 X10^3/uL (0.83-4.51); Absolute Neutrophil Count 9.2 X10^3/uL (2.0-7.7); Basophil# 0.03 X10^3/uL; Basophil% 0.2 % (0-1); Eosinophil# 0.12 X10^3/uL; Eosinophils% 0.9 % (0-5); Hematocrit 35.9 % (40-54); Hemoglobin 11.5 g/dL (13.0-16.5); Lymphocyte # 2.56 X10^3/ul (4.0); Lymphocyte % 18.9 % (19-41); Mean Corpuscular Hgb 28.5 pg (27.0-32.0); Mean Corpuscular Volume 88.9 fL (80-94); Mean Platelet Vol. 10.2 fl (6.2-12.0); Monocyte# 1.51 X10^3/uL; Monocyte% 11.2 % (0-10); NRBC Flagged by Analyzer 0 % (0-5); Neutrophil # 9.21 X10^3/uL (2.7-7.7); Neutrophil % 68.1 % (47-70); POSITIVE DIFFERENTIAL YES; Platelet Count 264 K/mm3 (150-450); RBC Distribution Width CV 11.7 % (11.6-14.6); RBC Distribution Width SD 37.8 fl (35.1-43.9); Red Blood Count 4.04 M/mm3 (4.6-6.2); White Blood Count 13.5 K/mm3 (4.4-11.0)
[2020-03-16 07:02] LABS: Differential Indicated SCAN CRITERIA MET
[2020-03-16 07:26] VITALS: BP 97/54; PULSE 79; RESP 16; TEMP 37.2; O2SAT 97
[2020-03-16 07:29] LABS: Platelet Estimate ADEQUATE (ADEQ); Red Cell Morphology NORM C+C NORMAL (NORM C&C)
[2020-03-16 08:50] LABS: Bedside Glucose 124 mg/dL (70-110)
[2020-03-16 09:41] LABS: Pathologist Review Reviewed
--- NOTE | 2020-03-16 10:30 | CASEMGMT ---
RN CHRISTOPHER Face to Face with patient for initial transition planning/care coordination assessment. RN CHRISTOPHER introduced self and role at [facility]. Patient lying in bed, alert and oriented. Patient willing to participate in assessment and is able to answer all questions appropriately. Care providers, pharmacy, and demographics verified. Patient wishes to discharge home, denies need for home health at this time. Patient states he has no further needs or concerns at this time. CM to follow for discharge planning needs that may arise. PCP: Florentino Specialists: Joseline, endocrinology Preferred Pharmacy: [email or web address] Insurance: [employer] Prescription Benefit: yes Living Will/HPOA: none LNOK: Grandmother Living Arrangements: Patient lives with grandmother in a 2 story home. Patient independent at home. Transportation: grandmother DME/HHC: Patient states he has glucometer, testing supplies, and insulin at home. Patient denies HHC. Disposition Plan: Patient to discharge home with family support and follow-up plans in place. Marta SCHMITZ, RN, CM
[2020-03-16] MEDS: DULoxetine Hcl 60 MG Capsule PO ×2 (11:14→21:18)
[2020-03-16] MEDS: Insulin Bolus Pump SC (11:21)
[2020-03-16 11:30] VITALS: BP 105/57; PULSE 100; RESP 18; TEMP 37.2
[2020-03-16 11:30] LABS: Bedside Glucose 172 mg/dL (70-110)
--- NOTE | 2020-03-16 11:51 | PCM.PN.SRG ---
Patient Problems: Active and Suspected Problems (Last Reviewed 04/22/19 @ 11:[address] Pranay Solitario MD) Perforated appendicitis (Acute) Subjective: patient states that he feels slightly improved, passing flatus, able to void - Physical Exam Vitals/I&O's: Vital Signs Temp Pulse Resp BP Pulse Ox 98.9 F 100 18 105/57 L 97 03/16/20 11:30 03/16/20 11:30 03/16/20 11:30 03/16/20 11:30 03/16/20 07:26 Oxygen Flow Rate (L/min) 98 Oxygen Delivery Method Room Air Weight: 63.2 kg Body Mass Index (BMI) 21.1 Finger Stick Blood Glucose 189 Intake and Output for Last 24 Hours 03/14/20 03/15/20 03/16/20 23:59 23:59 23:59 Intake Total 3460.42 / 3460.42 2842.08 / 2842.08 Output Total 115 / 115 1430 / 1430 Balance 3345.42 / 3345.42 1412.08 / 1412.08 General: Alert, Oriented x3 HEENT: Atraumatic Oral: Moist Mucosa Neck: Supple Lungs: Normal air movement Cardiovascular: Regular rate Abdomen: Soft, - - AUBRIE output is serosanguinous Laboratory Results 03/15/20 00:05: Diff Path Review Reviewed 03/15/20 12:03: POC Glucose 197 H 03/15/20 16:51: POC Glucose 172 H 03/15/20 21:00: Urine Color [place], Urine Clarity Sl. Cloudy, Urine pH 6.0, Ur Specific [place] 1.015, Urine Protein Negative, Urine Glucose (UA) 250 H, Urine Ketones 50 H, Urine Occult Blood Negative, Urine Nitrite Negative, Urine Bilirubin Negative, Urine Urobilinogen 8 H, Ur Leukocyte Esterase Negative, Urine RBC 0 SEEN, Urine WBC 0 SEEN, Ur Squamous Epith Cells 0 SEEN, Urine Bacteria 0 SEEN, Urine Mucus 3+ 03/15/20 21:16: POC Glucose 253 H 03/16/20 04:40: POC Glucose 234 H 03/16/20 06:30: WBC 13.5 H, RBC 4.04 L, Hgb 11.5 L, Hct 35.9 L, MCV 88.9, MCH 28.5, MCHC 32.0, RDW Std Deviation 37.8, RDW Coeff of Richard 11.7, Plt Count 264, MPV 10.2, Immature Gran % (Auto) 0.700, Neut % (Auto) 68.1, Lymph % (Auto) 18.9 L, [place] % (Auto) 11.2 H, Eos % (Auto) 0.9, Baso % (Auto) 0.2, Absolute Neuts (auto) 9.2 H, Absolute Lymphs (auto) 2.56, Nucleated RBC % 0, Diff Path Review November foll, Platelet Estimate ADEQUATE, RBC Morphology NORM C+C 03/16/20 08:43: POC Glucose 124 H 03/16/20 11:17: POC Glucose 172 H Current Medications Dextrose (D50w Syringe) 0 gm IV X1 PRN; Protocol PRN Reason: Hypoglycemia Doxepin HCl (Sinequan) 25 mg PO TID [facility] Last Admin: 03/16/20 06:16 Dose: 25 mg Documented by: Duloxetine HCl (Cymbalta) 60 mg PO BID [facility] Last Admin: 03/16/20 11:14 Dose: 60 mg Documented by: Gabapentin (Neurontin) 900 mg PO TID [facility] Last Admin: 03/16/20 06:15 Dose: 900 mg Documented by: Glucagon () 1 mg IM .X1 PRN PRN Reason: Hypoglycemia Sodium Chloride () 1,000 mls @ 125 mls/hr IV .Q8H [facility] Last Admin: 03/16/20 08:44 Dose: 125 mls/hr Documented by: Piperacillin Sod/Tazobactam (Sod 3.375 gm/ Sodium Chloride) 50 ml in 50 mls @ 12.5 mls/hr IV Q8 [facility] Last Infusion: 03/16/20 10:15 Dose: Infused Documented by: Insulin Aspart (Pump, Bolus) 0 unit SC 0800,1200,1700,2200 [facility]; Protocol Last Admin: 03/16/20 11:21 Dose: 1.3 unit Documented by: Morphine Sulfate () 4 mg IV Q2H PRN PRN PRN Reason: Pain Score 4-10/10 Last Admin: 03/16/20 11:13 Dose: 4 mg Documented by: Ondansetron HCl (Zofran) 4 mg IV Q8H PRN PRN PRN Reason: NAUSEA Last Admin: 03/15/20 08:58 Dose: 4 mg Documented by: Ondansetron HCl (Zofran Odt) 4 mg PO Q8H PRN PRN PRN Reason: NAUSEA/VOMITING Promethazine HCl (Phenergan Tablet) 25 mg PO Q6H PRN PRN PRN Reason: NAUSEA Sodium Chloride () 10 - 40 ml IV UD PRN PRN Reason: SALINE FLUSH Last Admin: 03/15/20 08:58 Dose: 10 ml Documented by: Medical Necessity - Tobacco Use Smoking Status: Never smoker Assessment/Plan All Active Problems (Last Reviewed 04/22/19 @ 11:[address] Pranay Solitraio MD) Diabetic ketoacidosis (Acute) Perforated appendicitis (Acute) DKA (diabetic ketoacidoses) (Acute) Impression: POD#1 s/p laparoscopic appendectomy for perforated appendicitis Plan: recheck CBC continue IV antibiotics if still elevated, patient is diabetic encourage ambulation
[2020-03-16 16:35] LABS: Bedside Glucose 97 mg/dL (70-110)
[2020-03-16] MEDS: HYDROcodone Bitartrate/Apap 5/325 Tablet PO (21:18)
[2020-03-16 21:25] LABS: Bedside Glucose 122 mg/dL (70-110)
[2020-03-16 21:32] VITALS: BP 116/76; PULSE 95; RESP 18; TEMP 37.1; O2SAT 99
[2020-03-17] MEDS: 0.9% Normal Saline 1,000 ML 125 ML IV ×4 (00:11→23:56)
[2020-03-17 04:00] VITALS: BP 127/79; PULSE 104; RESP 16; TEMP 37.7; O2SAT 98
[2020-03-17] MEDS: Gabapentin 300 MG Capsule 900 MG PO ×3 (06:05→21:39)
[2020-03-17] MEDS: Doxepin Hcl 25 MG Capsule PO ×3 (06:05→21:39)
[2020-03-17] MEDS: Insulin Bolus Pump SC ×4 (06:37→21:38)
[2020-03-17 06:51] LABS: Bedside Glucose 297 mg/dL (70-110)
[2020-03-17 06:57] LABS: Absolute Lymphocyte Count 1.13 X10^3/uL (0.83-4.51); Absolute Neutrophil Count 5.3 X10^3/uL (2.0-7.7); Basophil# 0.01 X10^3/uL; Basophil% 0.1 % (0-1); Eosinophil# 0.13 X10^3/uL; Eosinophils% 1.8 % (0-5); Hematocrit 36.1 % (40-54); Hemoglobin 12.2 g/dL (13.0-16.5); Lymphocyte # 1.13 X10^3/ul (4.0); Lymphocyte % 15.5 % (19-41); Mean Corp Hgb Conc 33.8 g/dL (32-36); Mean Corpuscular Hgb 29.4 pg (27.0-32.0); Monocyte# 0.66 X10^3/uL; NRBC Flagged by Analyzer 0 % (0-5); Neutrophil # 5.33 X10^3/uL (2.7-7.7); Neutrophil % 72.9 % (47-70); Platelet Count 284 K/mm3 (150-450); RBC Distribution Width CV 11.3 % (11.6-14.6); RBC Distribution Width SD 36.2 fl (35.1-43.9); Red Blood Count 4.15 M/mm3 (4.6-6.2); White Blood Count 7.3 K/mm3 (4.4-11.0)
[2020-03-17 08:15] VITALS: TEMP 37.9
[2020-03-17 10:00] VITALS: BP 95/58; PULSE 99; RESP 16; TEMP 37; O2SAT 99
[2020-03-17] MEDS: Glucerna Shake 120 ML LIQUID PO ×2 (10:34→13:48)
[2020-03-17] MEDS: DULoxetine Hcl 60 MG Capsule PO ×2 (10:34→21:40)
--- NOTE | 2020-03-17 11:24 | PCM.PN.SRG ---
Patient Problems: Active and Suspected Problems (Last Reviewed 04/22/19 @ 11:[address] Pranay Solitario MD) Perforated appendicitis (Acute) Subjective: patient feels somewhat improved, has passed flatus, no bowel movement yet, does feel hungry - Physical Exam Vitals/I&O's: Vital Signs Temp Pulse Resp BP Pulse Ox 98.6 F 99 16 95/58 L 99 03/17/20 10:00 03/17/20 10:00 03/17/20 10:00 03/17/20 10:00 03/17/20 10:00 Oxygen Flow Rate (L/min) 98 Oxygen Delivery Method Room Air Weight: 63.2 kg Body Mass Index (BMI) 21.1 Finger Stick Blood Glucose 189 Intake and Output for Last 24 Hours 03/15/20 03/16/20 03/17/20 23:59 23:59 23:59 Intake Total 3460.42 / 3460.42 4256.66 / 4556.66 2614.59 / 2614.59 Output Total 115 / 115 1430 / 1430 Balance 3345.42 / 3345.42 2826.66 / 3126.66 2614.59 / 2614.59 General: Alert, Oriented x3 Oral: Moist Mucosa Neck: Supple Lungs: Normal air movement Cardiovascular: Regular rate Abdomen: Bowel Sounds Present, - - dressings intact, AUBRIE output is serous - not cloudy Laboratory Results 03/16/20 11:17: POC Glucose 172 H 03/16/20 16:26: POC Glucose 97 03/16/20 21:13: POC Glucose 122 H 03/17/20 06:36: POC Glucose 297 H 03/17/20 06:50: WBC 7.3, RBC 4.15 L, Hgb 12.2 L, Hct 36.1 L, MCV 87.0, MCH 29.4, MCHC 33.8 D, RDW Std Deviation 36.2, RDW Coeff of Richard 11.3 L, Plt Count 284, MPV 10.0, Immature Gran % (Auto) 0.700, Neut % (Auto) 72.9 H, Lymph % (Auto) 15.5 L, [place] % (Auto) 9.0, Eos % (Auto) 1.8, Baso % (Auto) 0.1, Absolute Neuts (auto) 5.3, Absolute Lymphs (auto) 1.13, Nucleated RBC % 0 Current Medications Hydrocodone Bitart/Acetaminophen ([place] 5mg-325mg) 1 - 2 tablet PO Q4H PRN PRN PRN Reason: pain 1-10 Last Admin: 03/16/20 21:18 Dose: 1 tablet Documented by: Dextrose (D50w Syringe) 0 gm IV X1 PRN; Protocol PRN Reason: Hypoglycemia Doxepin HCl (Sinequan) 25 mg PO TID [facility] Last Admin: 03/17/20 06:05 Dose: 25 mg Documented by: Duloxetine HCl (Cymbalta) 60 mg PO BID [facility] Last Admin: 03/17/20 10:34 Dose: 60 mg Documented by: Gabapentin (Neurontin) 900 mg PO TID [facility] Last Admin: 03/17/20 06:05 Dose: 900 mg Documented by: Glucagon () 1 mg IM .X1 PRN PRN Reason: Hypoglycemia Sodium Chloride () 1,000 mls @ 125 mls/hr IV .Q8H [facility] Last Admin: 03/17/20 08:10 Dose: 125 mls/hr Documented by: Piperacillin Sod/Tazobactam (Sod 3.375 gm/ Sodium Chloride) 50 ml in 50 mls @ 12.5 mls/hr IV Q8 [facility] Last Infusion: 03/17/20 10:05 Dose: Infused Documented by: Insulin Aspart (Pump, Bolus) 0 unit SC 0800,1200,1700,2200 [facility]; Protocol Last Admin: 03/17/20 06:37 Dose: 4.4 unit Documented by: Morphine Sulfate () 4 mg IV Q2H PRN PRN PRN Reason: Pain Score 4-10/10 Last Admin: 03/16/20 11:13 Dose: 4 mg Documented by: Nutritional Formula (Lactose Free) (Glucerna Shake) 120 ml PO 4X/DAY [facility] Last Admin: 03/17/20 10:34 Dose: 120 ml Documented by: Ondansetron HCl (Zofran) 4 mg IV Q8H PRN PRN PRN Reason: NAUSEA Last Admin: 03/15/20 08:58 Dose: 4 mg Documented by: Ondansetron HCl (Zofran Odt) 4 mg PO Q8H PRN PRN PRN Reason: NAUSEA/VOMITING Promethazine HCl (Phenergan Tablet) 25 mg PO Q6H PRN PRN PRN Reason: NAUSEA Sodium Chloride () 10 - 40 ml IV UD PRN PRN Reason: SALINE FLUSH Last Admin: 03/15/20 08:58 Dose: 10 ml Documented by: Medical Necessity - Tobacco Use Smoking Status: Never smoker Assessment/Plan All Active Problems (Last Reviewed 04/22/19 @ 11:[address] Pranay Solitario MD) Diabetic ketoacidosis (Acute) Perforated appendicitis (Acute) DKA (diabetic ketoacidoses) (Acute) Impression: POD#2 s/p laparoscopic appendectomy for perforated appendicitis Plan: CBC is normalized,however, I am concerned about temperature curve increasing continue IV antibiotics if still elevated, patient is diabetic encourage ambulation/incentive spirometry will keep in hospital another night for IV antibiotics
[2020-03-17 12:36] LABS: Bedside Glucose 280 mg/dL (70-110)
[2020-03-17 13:57] LABS: Pathologist Review Reviewed
[2020-03-17 16:00] VITALS: BP 130/76; PULSE 85; RESP 16; TEMP 37.6; O2SAT 95
[2020-03-17 16:31] LABS: Bedside Glucose 332 mg/dL (70-110)
[2020-03-17 21:31] VITALS: BP 121/67; PULSE 92; RESP 18; TEMP 37.6; O2SAT 99
[2020-03-17 21:50] LABS: Bedside Glucose 292 mg/dL (70-110)
[2020-03-18 00:23] VITALS: BP 121/66; PULSE 97; RESP 16; TEMP 37.7; O2SAT 96
[2020-03-18 06:37] VITALS: BP 126/69; PULSE 96; RESP 16; TEMP 37.4; O2SAT 93
[2020-03-18] MEDS: Gabapentin 300 MG Capsule 900 MG PO ×2 (06:48→13:34)
[2020-03-18] MEDS: 0.9% Normal Saline 1,000 ML 125 ML IV (06:48)
[2020-03-18] MEDS: Doxepin Hcl 25 MG Capsule PO ×2 (06:48→13:34)
[2020-03-18] MEDS: Insulin Bolus Pump SC ×2 (06:49→16:38)
[2020-03-18 06:55] LABS: Bedside Glucose 184 mg/dL (70-110)
--- NOTE | 2020-03-18 08:40 | PN.SURG_ITS ---
Patient Problems: Active and Suspected Problems (Last Reviewed 04/22/19 @ 11:[address] Pranay Solitario MD) Perforated appendicitis (Acute) Subjective: patient feeling improved - little by little, still has abdominal soreness, passing flatus - Physical Exam Vitals/I&O's: Vital Signs Temp Pulse Resp BP Pulse Ox 99.4 F H 96 16 126/69 H 93 03/18/20 06:37 03/18/20 06:37 03/18/20 06:37 03/18/20 06:37 03/18/20 06:37 Oxygen Flow Rate (L/min) 98 Oxygen Delivery Method Room Air Weight: 63.2 kg Body Mass Index (BMI) 21.1 Finger Stick Blood Glucose 189 Intake and Output for Last 24 Hours 03/16/20 03/17/20 03/18/20 23:59 23:59 23:59 Intake Total 4256.66 / 4556.66 4793.34 / 4793.34 968.33 / 968.33 Output Total 1430 / 1430 120 / 120 50 / 50 Balance 2826.66 / 3126.66 4673.34 / 4673.34 918.33 / 918.33 General: Alert, Oriented x3 Oral: Moist Mucosa Neck: Supple Lungs: Normal air movement Abdomen: Bowel Sounds Present, Soft, - - dressing intact, AUBRIE output is serous Laboratory Results 03/16/20 06:30: Diff Path Review Reviewed 03/17/20 12:27: POC Glucose 280 H 03/17/20 16:21: POC Glucose 332 H 03/17/20 21:30: POC Glucose 292 H 03/18/20 06:47: POC Glucose 184 H Current Medications Hydrocodone Bitart/Acetaminophen ([place] 5mg-325mg) 1 - 2 tablet PO Q4H PRN PRN PRN Reason: pain 1-10 Last Admin: 03/16/20 21:18 Dose: 1 tablet Documented by: Dextrose (D50w Syringe) 0 gm IV X1 PRN; Protocol PRN Reason: Hypoglycemia Doxepin HCl (Sinequan) 25 mg PO TID [facility] Last Admin: 03/18/20 06:48 Dose: 25 mg Documented by: Duloxetine HCl (Cymbalta) 60 mg PO BID [facility] Last Admin: 03/17/20 21:40 Dose: 60 mg Documented by: Gabapentin (Neurontin) 900 mg PO TID [facility] Last Admin: 03/18/20 06:48 Dose: 900 mg Documented by: Glucagon () 1 mg IM .X1 PRN PRN Reason: Hypoglycemia Sodium Chloride () 1,000 mls @ 125 mls/hr IV .Q8H [facility] Last Admin: 03/18/20 06:48 Dose: 125 mls/hr Documented by: Piperacillin Sod/Tazobactam (Sod 3.375 gm/ Sodium Chloride) 50 ml in 50 mls @ 12.5 mls/hr IV Q8 [facility] Last Admin: 03/18/20 06:48 Dose: 12.5 mls/hr Documented by: Insulin Aspart (Pump, Bolus) 0 unit SC 0800,1200,1700,2200 [facility]; Protocol Last Admin: 03/18/20 06:49 Dose: 1.6 unit Documented by: Morphine Sulfate () 4 mg IV Q2H PRN PRN PRN Reason: Pain Score 4-10/10 Last Admin: 03/16/20 11:13 Dose: 4 mg Documented by: Nutritional Formula (Lactose Free) (Glucerna Shake) 120 ml PO 4X/DAY [facility] Last Admin: 03/17/20 21:41 Dose: Not Given Documented by: Ondansetron HCl (Zofran) 4 mg IV Q8H PRN PRN PRN Reason: NAUSEA Last Admin: 03/15/20 08:58 Dose: 4 mg Documented by: Ondansetron HCl (Zofran Odt) 4 mg PO Q8H PRN PRN PRN Reason: NAUSEA/VOMITING Promethazine HCl (Phenergan Tablet) 25 mg PO Q6H PRN PRN PRN Reason: NAUSEA Sodium Chloride () 10 - 40 ml IV UD PRN PRN Reason: SALINE FLUSH Last Admin: 03/15/20 08:58 Dose: 10 ml Documented by: Medical Necessity - Tobacco Use Smoking Status: Never smoker Assessment/Plan All Active Problems (Last Reviewed 04/22/19 @ 11:[address] Pranay Solitario MD) Diabetic ketoacidosis (Acute) Perforated appendicitis (Acute) DKA (diabetic ketoacidoses) (Acute) Impression: POD#3 s/p laparoscopic appendectomy for perforated appendicitis Plan: I have encouraged patient to ambulate as much as possible, also incentive spirometry Patient can be discharged to home, but I have counseled him to do the above, because of his diabetes, he is at risk for intraabdominal abscess and/or pneumonia, etc. Patient to follow up with me as an outpatient for removal of drain next week
--- NOTE | 2020-03-18 08:45 | DCINST_ITS ---
Discharge Diet: No Restrictions - follow a diabetic diet as recommended by your family physician, drink plenty of fluids Discharge Activity: Return to Normal Activity, May not drive while taking narcotic pain medications. Lifting Restrictions: no lifting greater than 20 pounds for two weeks Call your doctor if your incision/area has: Continuous Slow Oozing, Foul Smelling Discharge Call your doctor if you observe: Fever of 101 or Higher Additional Instructions: Recommended pain control regimen - May take 600 mg ibuprofen (Motrin) and then in 3-4 hours, may take 650 mg acetaminophen (Tylenol), then in 3-4 hours may take 600 mg ibuprofen, then in 3- 4 hours may take 650 mg acetaminophen and so on for 2-3 days May take narcotic pain medication for pain that is not controlled by above and at night for comfort through the night Leave dressings in place Sponge bathe only as long as drain is in place Empty drain as shown by nurses Walking is encouraged, use the incentive spirometer as often as possible Medications to take at Discharge Gabapentin [Neurontin] 900 mg PO TID 09/15/19 proMETHazine tablet [Phenergan] 25 mg PO Q6H PRN PRN #10 tab 09/25/19 Ondansetron [Zofran Odt] 4 mg PO Q8H PRN PRN 10/06/19 Doxepin HCl [Sinequan] 25 mg PO TID 03/15/20 Duloxetine HCl 60 mg PO BID 03/15/20 Insulin Aspart See Protocol SQ TID 03/15/20 Amoxicillin/Potassium Clav [Augmentin 875-125 Tablet] 1 ea PO Q12H 7 Days #14 tab 03/18/20 Hydrocodone Bitart/Apap 5-325 [[place] 5MG-325MG] 1 tablet PO Q12H PRN PRN 5 Days #10 tablet 03/18/20 Allergies/Adverse Reactions: Allergies No Known Allergies Allergy (Verified 03/14/20 23:31) The following prescriptions were given: Amoxicillin/Potassium Clav [Augmentin 875-125 Tablet] 1 ea PO Q12H 7 Days #14 tab Transmission Status: Pending to [id number] Hydrocodone Bitart/Apap 5-325 [[place] 5MG-325MG] 1 tablet PO Q12H PRN PRN 5 Days #10 tablet PRN Reason: Pain Score 6-10/10 Transmission Status: Received by [id number] Primary Care Physician: Jason Good MD [Primary Care Provider] - Test Results: Test results from this visit will be discussed in further detail at your follow- up appointment, if applicable. Please Follow Up With: Santa Hollingsworth MD - call When: to be seen on 03/24/2020, please call for time, thank you
--- NOTE | 2020-03-18 08:48 | PCM.DC.BLA ---
Discharge Summary Date of Admission: 03/14/20 Date of Discharge: 03/18/20 Summary: Alphonso Wang is a 19 y/o WM who presented to the [facility] ED with three day history of abdominal pain. He is a diabetic with an insulin pump. He presented with an elevated WBC and CT scan revealing appendicitis. He was taken to surgery on 03/15/2020 and found to have perforated appendicitis. Intraabdominal lavage was done and intraabdominal drain was placed. Postoperative, he was placed on IV antibiotics and diet was advanced as tolerated. AUBRIE drain normalized to clear peritoneal fluid within three days. WBC normalized, also. Patient continued to have low grade fevers and therefore was continued on IV antibiotics. He was instructed to ambulate and do incentive spirometry. He was discharged on POD#3, tolerated diet, having temps of 99F, abdominal soreness only. He will be discharged on po antibiotics and pain medications (with drain in place), to follow up in the clinic as an outpatient. Patient Problems: Active and Suspected Problems (Last Reviewed 04/22/19 @ 11:[address] Pranay Solitario MD) Perforated appendicitis (Acute) - Physical Exam Vitals/I&O's: Vital Signs Temp Pulse Resp BP Pulse Ox 99.4 F H 96 16 126/69 H 93 03/18/20 06:37 03/18/20 06:37 03/18/20 06:37 03/18/20 06:37 03/18/20 06:37 Oxygen Flow Rate (L/min) 98 Oxygen Delivery Method Room Air Weight: 63.2 kg Body Mass Index (BMI) 21.1 Finger Stick Blood Glucose 189 Intake and Output for Last 24 Hours 03/16/20 03/17/20 03/18/20 23:59 23:59 23:59 Intake Total 4256.66 / 4556.66 4793.34 / 4793.34 968.33 / 968.33 Output Total 1430 / 1430 120 / 120 50 / 50 Balance 2826.66 / 3126.66 4673.34 / 4673.34 918.33 / 918.33 Laboratory Results 03/16/20 06:30: Diff Path Review Reviewed 03/17/20 12:27: POC Glucose 280 H 03/17/20 16:21: POC Glucose 332 H 03/17/20 21:30: POC Glucose 292 H 03/18/20 06:47: POC Glucose 184 H Current Medications Hydrocodone Bitart/Acetaminophen ([place] 5mg-325mg) 1 - 2 tablet PO Q4H PRN PRN PRN Reason: pain 1-10 Last Admin: 03/16/20 21:18 Dose: 1 tablet Documented by: Dextrose (D50w Syringe) 0 gm IV X1 PRN; Protocol PRN Reason: Hypoglycemia Doxepin HCl (Sinequan) 25 mg PO TID [facility] Last Admin: 03/18/20 06:48 Dose: 25 mg Documented by: Duloxetine HCl (Cymbalta) 60 mg PO BID [facility] Last Admin: 03/17/20 21:40 Dose: 60 mg Documented by: Gabapentin (Neurontin) 900 mg PO TID [facility] Last Admin: 03/18/20 06:48 Dose: 900 mg Documented by: Glucagon () 1 mg IM .X1 PRN PRN Reason: Hypoglycemia Sodium Chloride () 1,000 mls @ 125 mls/hr IV .Q8H [facility] Last Admin: 03/18/20 06:48 Dose: 125 mls/hr Documented by: Piperacillin Sod/Tazobactam (Sod 3.375 gm/ Sodium Chloride) 50 ml in 50 mls @ 12.5 mls/hr IV Q8 [facility] Last Admin: 03/18/20 06:48 Dose: 12.5 mls/hr Documented by: Insulin Aspart (Pump, Bolus) 0 unit SC 0800,1200,1700,2200 [facility]; Protocol Last Admin: 03/18/20 06:49 Dose: 1.6 unit Documented by: Morphine Sulfate () 4 mg IV Q2H PRN PRN PRN Reason: Pain Score 4-10/10 Last Admin: 03/16/20 11:13 Dose: 4 mg Documented by: Nutritional Formula (Lactose Free) (Glucerna Shake) 120 ml PO 4X/DAY [facility] Last Admin: 03/17/20 21:41 Dose: Not Given Documented by: Ondansetron HCl (Zofran) 4 mg IV Q8H PRN PRN PRN Reason: NAUSEA Last Admin: 03/15/20 08:58 Dose: 4 mg Documented by: Ondansetron HCl (Zofran Odt) 4 mg PO Q8H PRN PRN PRN Reason: NAUSEA/VOMITING Promethazine HCl (Phenergan Tablet) 25 mg PO Q6H PRN PRN PRN Reason: NAUSEA Sodium Chloride () 10 - 40 ml IV UD PRN PRN Reason: SALINE FLUSH Last Admin: 03/15/20 08:58 Dose: 10 ml Documented by:
--- NOTE | 2020-03-18 09:15 | PCA ---
scheduled apts for yaneth
[2020-03-18 09:32] VITALS: BP 99/48; PULSE 107; RESP 18; TEMP 38.1; O2SAT 99
[2020-03-18 09:35] VITALS: TEMP 37.3
[2020-03-18] MEDS: DULoxetine Hcl 60 MG Capsule PO (09:43)
[2020-03-18 11:40] LABS: Bedside Glucose 153 mg/dL (70-110)
--- NOTE | 2020-03-18 11:50 | RAD_ITS ---
STUDY: X-RAY CHEST REASON FOR EXAM: Male, 19 years old. post op temp, perforated appendicitis TECHNIQUE: PA and lateral views of the chest. COMPARISON: 10/01/2019 FINDINGS: The lungs are clear and expanded. There is no demonstrated pleural abnormality. Normal size heart. Normal mediastinum and amber. Normal visualized pulmonary arteries. Normal visualized aortic arch and descending thoracic aorta. Normal visualized thoracic spine. Normal visualized ribs, clavicles, and shoulders. There is no demonstrated abnormality of the visualized soft tissue structures of the upper abdomen. RAD/Chest PA and Lateral IMPRESSION: Normal x-ray examination of the chest. Electronically Signed: Marco Jimenez MD at 12:22 EDT Tel , Service support ,
--- NOTE | 2020-03-18 12:14 | PHA.DC.MR ---
Pharmacy Service has performed discharge medication reconciliation for this patient. The patient's discharge medication list was reviewed for discrepancies and discrepancies were resolved. Home Medications Gabapentin [Neurontin] 900 mg PO TID 09/15/19 proMETHazine tablet [Phenergan] 25 mg PO Q6H PRN PRN #10 tab 09/25/19 Ondansetron [Zofran Odt] 4 mg PO Q8H PRN PRN 10/06/19 Doxepin HCl [Sinequan] 25 mg PO TID 03/15/20 Duloxetine HCl 60 mg PO BID 03/15/20 Insulin Aspart See Protocol SQ TID 03/15/20 Amoxicillin/Potassium Clav [Augmentin 875-125 Tablet] 1 ea PO Q12H 7 Days #14 tab 03/18/20 Hydrocodone Bitart/Apap 5-325 [[place] 5MG-325MG] 1 tab PO Q12H PRN PRN 5 Days #10 tab 03/18/20
[2020-03-18] MEDS: 0.9% Saline Lock 10 ML Syringe IV (13:34)
[2020-03-18 13:44] VITALS: BP 109/66; PULSE 99; RESP 18; TEMP 37; O2SAT 97
[2020-03-18 16:46] LABS: Bedside Glucose 246 mg/dL (70-110)
[2020-03-18 17:44] VITALS: BP 108/72; PULSE 108; RESP 18; TEMP 37.4; O2SAT 100
--- NOTE | 2020-03-19 14:01 | CASEMGMT ---
ROMANA WHITE Discharge Follow-up Phone Call: CHET: Loraine Strata: 4 Call Date: 03/19/2020 Discharge Date: 03/18/2020 Time of Call: 1355 Duration: 5 minutes Admitting Diagnosis: Perforated appendicitis Discharge follow-up call placed to patient. Pt states he is doing well since discharge. States he feels sore but pain increases with activity. Reports he just returned from the store with his sister. Reporting taking Tylenol and avoiding taking the narcotics. Current pain is a 2. Pt states the drain remains intake, that he emptied it this morning but there is not a lot of fluid present, the fluid present is clear in color. Pt aware that if this were to change to cloudy or purulent that he would need to contact Dr. Hollingsworth. Pt states his temperature is currently normal. He is continuing to check is blood sugars q2-3 hours and it was 182 this morning and is managed via his insulin pump. Pt states he did obtain and is taking his antibiotic. Pt denied any questions or concerns at this time. Ketan Simms RN CM
== END 2020-03-18 18:25 | disposition home or self-care (01) | DRG 233 ==
LOC: ED 03-15 02:37 → MS3 03-15 03:59
PROVIDERS: Anesthesiology; Admitting Provider Surgery; Emergency Provider Emergency Medicine; PCP Family Medicine; Referring Provider Surgery; Visit Provider Surgery
PROC: 0DTJ4ZZ Resection of Appendix, Percutaneous Endoscopic Approach (ICD-10-PCS; CPT 44970; principal; 2020-03-15 09:30)
DX: K35.32 Acute appendicitis with perforation, localized peritonitis, and gangrene, without abscess (principal); E10.10 Type 1 diabetes mellitus with ketoacidosis without coma; E10.40 Type 1 diabetes mellitus with diabetic neuropathy, unspecified; E10.319 Type 1 diabetes mellitus with unspecified diabetic retinopathy without macular edema; K21.9 Gastro-esophageal reflux disease without esophagitis; Z96.41 Presence of insulin pump (external) (internal); Z79.4 Long term (current) use of insulin; Z79.899 Other long term (current) drug therapy
CPT/HCPCS: 36415; 71046; 74177; 80048; 80076; 81001; 82962; 83036; 83690; 85025; 88304; 99251; 99285; J7030; Q9967; A4216; G0463; J2405

== ENCOUNTER 2020-06-05 08:22 | Emergency (ER) | payer MEDICAID, SELFPAY ==
[2020-03-15 09:09] VITALS: BMI 21.1
[2020-06-05 08:22] VITALS: BP 110/66; PULSE 112; RESP 17; TEMP 36.3; O2SAT 99; BMI 21.6
--- NOTE | 2020-06-05 08:39 | ED.DCSUM_ITS ---
History of Present Illness Chief Complaint: Nausea/Vomiting/Diarrhea Informant: Patient Narrative: 19-year-old male presents the emergency department vomiting diarrhea. He tells me that several days ago he developed sore throat headache and generalized myalgias. He had a Covid test that was negative. He states that the symptoms have gotten a little bit better but this morning he developed diarrhea and vomiting. He denies any fever. No rashes. In recent months he had a perforated appendix and recovered from that. He is a type I diabetic. He tells me his blood sugars are around 115 this morning. - Past Medical History (1) Anxiety and depression Status: Chronic (2) DM I (diabetes mellitus, type I), uncontrolled Status: Chronic (3) GERD (gastroesophageal reflux disease) Status: Chronic Past Medical History - Allergies and Home Meds Allergies/Adverse Reactions: Allergies No Known Allergies Allergy (Verified 06/05/20 08:22) Primary Care Physician: Jason Good MD [Primary Care Provider] - Prior records reviewed: Yes Surgical History: no surgical history, - - BL ear tubes. Smoking Status: Never smoker Drugs: None - Family History Maternal Family History: Family History (Last Reviewed 04/22/19 @ 11:[address] Pranay Solitario MD) Mother Kidney disease Family History: Reports: Heart Disease, Renal Disease Paternal Family History: Family History (Last Reviewed 04/22/19 @ 11:[address] Pranay Solitario MD) Mother Kidney disease Family History: Reports: Heart Disease, - - Paternal family males w/ frequent hearing disorder. Additional Family History: Family history of hearing loss on the father's side in the mail. No history of Alport syndrome. Review of Systems General: Reports: Malaise. Denies: Chills, Fever, Sweats Eyes: Denies: Visual changes - bilaterally, Diplopia ENT: Reports: Rhinorrhea, Sore throat Cardiovascular: Denies: Chest pain, Palpitations Respiratory: Denies: Dyspnea, Cough, Dyspnea on exertion Gastrointestinal: Reports: Abdominal pain - Cramping abdominal pain, Nausea, Vomiting, Diarrhea. Denies: Melena, Hematochezia Genitourinary: Denies: Dysuria, Hematuria, Frequency Musculoskeletal: Reports: Myalgias. Denies: Back pain, Extremity Pain Skin: Denies: Rash, Wounds Neurological: Denies: Headache, Weakness, Numbness Physical Exam Vital Signs/Narrative: Vital Signs Temp Pulse Resp BP Pulse Ox 06/05/20 08:22 97.3 F L 112 H 17 110/66 99 Inital Vital Signs reviewed: Yes General: Well nourished, Well developed, No Acute Distress Head: Normocephalic, Atraumatic Eyes: Perrl, EOMI ENT: Moist mucous membranes, No rhinorrhea Neck: Supple, Nontender Cardiovascular: Regular rate, Regular rhythm, No murmurs Respiratory: No distress, CTA bilaterally, Chest nontender Abdomen: Soft, Nondistended, Normal bowel sounds, Tender - Mild diffuse tenderness to palpation. Negative for: Guarding, Rebound tenderness Back: Nontender, Normal Inspection Extremities: Nontender, No edema Skin: Normal color, No rash Neurological: Alert, Oriented x3, Cranial nerves II-XII grossly intact, Normal Strength, Normal Sensation Psychological: Normal affect, Normal Mood Diagnostic/Tx/Re-eval Laboratory Last Values WBC 10.2 K/mm3 (4.4-11.0) 06/05/20 08:40 RBC 5.95 M/mm3 (4.6-6.2) 06/05/20 08:40 Hgb 16.3 g/dL (13.0-16.5) 06/05/20 08:40 Hct 49.6 % (40-54) 06/05/20 08:40 MCV 83.4 fL (80-94) 06/05/20 08:40 MCH 27.4 pg (27.0-32.0) 06/05/20 08:40 MCHC 32.9 g/dL (32-36) 06/05/20 08:40 RDW Std Deviation 38.5 fl (35.1-43.9) 06/05/20 08:40 RDW Coeff of Richard 12.6 % (11.6-14.6) 06/05/20 08:40 Plt Count 394 K/mm3 (150-450) 06/05/20 08:40 MPV 9.6 fl (6.2-12.0) 06/05/20 08:40 Immature Gran % (Auto) 1.200 % (0.0-0.9) H 06/05/20 08:40 Neut % (Auto) 52.8 % (47-70) 06/05/20 08:40 Lymph % (Auto) 34.7 % (19-41) 06/05/20 08:40 [place] % (Auto) 9.1 % (0-10) 06/05/20 08:40 Eos % (Auto) 1.8 % (0-5) 06/05/20 08:40 Baso % (Auto) 0.4 % (0-1) 06/05/20 08:40 Absolute Neuts (auto) 5.4 X10^3/uL (2.0-7.7) 06/05/20 08:40 Absolute Lymphs (auto) 3.54 X10^3/uL (0.83-4.51) 06/05/20 08:40 Nucleated RBC % 0 % (0-5) 06/05/20 08:40 Sodium 142 mmol/L (136-145) 06/05/20 08:40 Potassium 3.6 mmol/L (3.5-5.1) 06/05/20 08:40 Chloride 111 mmol/L (98-107) H 06/05/20 08:40 Carbon Dioxide 25.0 mmol/L (21.0-32.0) 06/05/20 08:40 Anion Gap 6 (5-15) 06/05/20 08:40 BUN 15 mg/dL (7-18) 06/05/20 08:40 Creatinine 0.61 mg/dL (0.70-1.30) L 06/05/20 08:40 Estim Creat Clear Calc 174.52 ml/min 06/05/20 08:40 Est GFR (MDRD) Af Amer 215 mL/min (>60) 06/05/20 08:40 Est GFR (MDRD) Non-Af 178 mL/min (>60) 06/05/20 08:40 BUN/Creatinine Ratio 24.8 RATIO (10-20) H 06/05/20 08:40 Glucose 92 mg/dL (74-106) 06/05/20 08:40 Calcium 9.5 mg/dL (8.5-10.1) 06/05/20 08:40 Total Bilirubin 0.20 mg/dL (0.20-1.00) 06/05/20 08:40 AST 26 U/L (15-37) 06/05/20 08:40 ALT 37 U/L (16-61) 06/05/20 08:40 Alkaline Phosphatase 177 U/L (45-117) H 06/05/20 08:40 Total Protein 7.6 g/dL (6.4-8.2) 06/05/20 08:40 Albumin 3.9 g/dL (3.2-5.0) 06/05/20 08:40 Globulin 3.7 g/dL (2.2-4.2) 06/05/20 08:40 Albumin/Globulin Ratio 1.1 RATIO (0.9-2.4) 06/05/20 08:40 Lipase 31 U/L (73-393) L 06/05/20 08:40 Acetone Level NEGATIVE (NEG) 06/05/20 08:40 - Medical Decision Making Basic labs were obtained essentially negative. He is not in DKA. Chest x-ray was obtained. My interpretation of the plain films is no acute process. Samantha ent received a liter of IV fluids Zofran and Toradol. Patient will be discharged home with Zofran. Imodium as needed. Oral hydration encouraged. Tight control of his diabetes is strongly encouraged. ED Disposition - Plan for ED Patient: Disposition: Home or Assisted Living Diagnosis: Gastroenteritis Instructions: ED Viral Gastroenteritis Prescriptions: Ondansetron [Zofran Odt] 4 mg PO Q6H PRN PRN #15 tab PRN Reason: Nausea Prescription Printed Referrals: Jason Good MD [Primary Care Provider] - 3-5 Days if not improving
[2020-06-05] MEDS: Ondansetron 4 MG/2 ML Vial IV (08:48)
[2020-06-05] MEDS: 0.9% Normal Saline 1,000 ML 1000 ML IV (08:49)
[2020-06-05] MEDS: Ketorolac 30 MG/ML Syringe IV (08:49)
[2020-06-05 08:59] LABS: Absolute Lymphocyte Count 3.54 X10^3/uL (0.83-4.51); Absolute Neutrophil Count 5.4 X10^3/uL (2.0-7.7); Basophil# 0.04 X10^3/uL; Basophil% 0.4 % (0-1); Eosinophil# 0.18 X10^3/uL; Eosinophils% 1.8 % (0-5); Hematocrit 49.6 % (40-54); Hemoglobin 16.3 g/dL (13.0-16.5); Lymphocyte # 3.54 X10^3/ul (4.0); Lymphocyte % 34.7 % (19-41); Mean Corp Hgb Conc 32.9 g/dL (32-36); Mean Corpuscular Hgb 27.4 pg (27.0-32.0); Mean Corpuscular Volume 83.4 fL (80-94); Mean Platelet Vol. 9.6 fl (6.2-12.0); Monocyte# 0.93 X10^3/uL; Monocyte% 9.1 % (0-10); NRBC Flagged by Analyzer 0 % (0-5); Neutrophil # 5.39 X10^3/uL (2.7-7.7); Neutrophil % 52.8 % (47-70); Platelet Count 394 K/mm3 (150-450); RBC Distribution Width CV 12.6 % (11.6-14.6); RBC Distribution Width SD 38.5 fl (35.1-43.9); Red Blood Count 5.95 M/mm3 (4.6-6.2); White Blood Count 10.2 K/mm3 (4.4-11.0)
--- NOTE | 2020-06-05 09:00 | RAD_ITS ---
STUDY: X-RAY CHEST REASON FOR EXAM: Male, 19 years old. SORE THROAT -- HA[place] X COUPLE DAYS -- N/V/D THIS MORNING -- NEGATIVE COVID TEST 3 DAYS AGO TECHNIQUE: Single AP portable view of the chest. COMPARISON: Comparison is made with prior study dated 03/18/2020. FINDINGS: The lungs are clear and expanded. There is no demonstrated pleural abnormality. Normal size heart. Normal mediastinum and amber. Normal visualized pulmonary arteries. Normal visualized aortic arch and descending thoracic aorta. Normal visualized thoracic spine. Normal visualized ribs, clavicles, and shoulders. There is no demonstrated abnormality of the visualized soft tissue structures of the upper abdomen. RAD/Chest 1 View (Portable) IMPRESSION: Normal x-ray examination of the chest. Electronically Signed: Klever Pacheco, at 9:25 EST , Service support ,
[2020-06-05 09:13] LABS: ALB/GLOB Ratio 1.1 RATIO (0.9-2.4); AST(SGOT) 26 U/L (15-37); Alanine Aminotransfer ALT/SGPT 37 U/L (16-61); Albumin, Serum 3.9 g/dL (3.2-5.0); Alkaline Phosphatase 177 U/L (45-117); Anion Gap 6 (5-15); BUN 15 mg/dL (7-18); BUN/Creat Ratio 24.8 RATIO (10-20); Calcium,Total 9.5 mg/dL (8.5-10.1); Chloride 111 mmol/L (98-107); Creatinine, Serum 0.61 mg/dL (0.70-1.30); EST Glomerular Filtration Rate 178 mL/min (>60); Est Glom Filt Rate - Afr Amer 215 mL/min (>60); Estimated Creatinine Clearance 174.52 ml/min; Globulin 3.7 g/dL (2.2-4.2); Glucose 92 mg/dL (74-106); Lipase 31 U/L (73-393); Potassium 3.6 mmol/L (3.5-5.1); Protein, Total 7.6 g/dL (6.4-8.2); Sodium Level 142 mmol/L (136-145)
--- NOTE | 2020-06-05 10:13 | ED.RN ---
iv dripping by gravity, not consistent. placed ob pump
[2020-06-05 10:23] VITALS: BP 114/87; PULSE 78; RESP 14; O2SAT 99
[2020-06-05 11:20] VITALS: BP 113/81; PULSE 79; RESP 16; O2SAT 99
== END 2020-06-05 11:20 | disposition home or self-care (01) ==
PROVIDERS: Emergency Provider Emergency Medicine; PCP Family Medicine
DX: K52.9 Noninfective gastroenteritis and colitis, unspecified (principal); K21.9 Gastro-esophageal reflux disease without esophagitis; Z79.4 Long term (current) use of insulin; Z82.49 Family history of ischemic heart disease and other diseases of the circulatory system; F32.9 Major depressive disorder, single episode, unspecified; F41.9 Anxiety disorder, unspecified; E10.9 Type 1 diabetes mellitus without complications
CPT/HCPCS: 71045; 80053; 82009; 83690; 85025; 96361; 96374; 96375; 99284; J7030; A4216; J2405

== ENCOUNTER 2020-08-17 11:43 | Emergency (ER) | payer MEDICAID, SELFPAY ==
[2020-08-17] VITALS (12 sets, daily range): BP systolic 112–139; BP diastolic 71–97; PULSE 78–112; RESP 15–27; TEMP 36.2–36.4; O2SAT 96–100; BMI 22.1
--- NOTE | 2020-08-17 11:58 | EKG12_ITS ---
Test Reason : SUICIDE Blood Pressure : / mmHG Vent. Rate : 090 BPM Atrial Rate : 090 BPM P-R Int : 128 ms QRS Dur : 088 ms QT Int : 316 ms P-R-T Axes : 055 041 019 degrees QTc Int : 386 ms Normal sinus rhythm T wave abnormality, consider anterolateral ischemia Abnormal ECG Confirmed by REILLY OLMEDO, GIOVANI ([id number]), book or script editor KARLEE MCDANIEL ([id number]) on 08/19/2020 1:32:53 PM Referred By: NAOMI Confirmed By:GIOVANI GROVER MD
[2020-08-17 12:00] LABS: Bedside Glucose 144 mg/dL (70-110)
[2020-08-17 12:20] LABS: Absolute Lymphocyte Count 1.94 X10^3/uL (0.83-4.51); Absolute Neutrophil Count 4.1 X10^3/uL (2.0-7.7); Basophil# 0.03 X10^3/uL; Basophil% 0.5 % (0-1); Eosinophil# 0.11 X10^3/uL; Eosinophils% 1.7 % (0-5); Hematocrit 50.9 % (40-54); Hemoglobin 17.4 g/dL (13.0-16.5); Lymphocyte # 1.94 X10^3/ul (4.0); Lymphocyte % 29.2 % (19-41); Mean Corp Hgb Conc 34.2 g/dL (32-36); Mean Corpuscular Hgb 28.2 pg (27.0-32.0); Mean Corpuscular Volume 82.5 fL (80-94); Mean Platelet Vol. 10.2 fl (6.2-12.0); Monocyte# 0.43 X10^3/uL; Monocyte% 6.5 % (0-10); NRBC Flagged by Analyzer 0 % (0-5); Neutrophil % 61.6 % (47-70); Platelet Count 365 K/mm3 (150-450); RBC Distribution Width CV 13.6 % (11.6-14.6); RBC Distribution Width SD 38.9 fl (35.1-43.9); Red Blood Count 6.17 M/mm3 (4.6-6.2); White Blood Count 6.6 K/mm3 (4.4-11.0)
--- NOTE | 2020-08-17 12:21 | ED.DCSUM_ITS ---
- ER Visit Summary Date of Service: 08/17/20 Chief Complaint: Intentional overdose History of Present Illness: The patient is a 19 M presenting after intentional overdose. Patient is an insulin-dependent diabetic. He wears an insulin pump. He states last night he gave himself 100 extra units of regular insulin. This morning he gave himself 50 extra units of regular insulin. He states this was an attempt to kill himself. He does not want to discuss why he is suicidal. He denies other complaints. Physical Examination: Vitals are stable. Patient is afebrile. Alert no acute distress. HEENT exam is unremarkable. Neck is supple. Lungs are clear and equal bilaterally. Heart is regular tachycardic Abdomen is soft nontender nondistended. Extremities are unremarkable. Skin is warm and dry. No focal neurologic deficit. Suicidal ideation Remainder of exam is unremarkable. Emergency Department Course and Treatment: BGT on arrival is 144. His insulin pump was removed. EKG is sinus rhythm rate of 90. CBC, chemistries unremarkab le other potassium 3.0. Tylenol and salicylate levels are negative. Alcohol negative. Covid negative. Repeat BGT 64. He was given orange juice. Repeat blood sugar 45. He was given an amp of D50. Repeat blood sugar 164. Patient will be observed in the ED. Discussed with social work for disposition. Disposition: Pending Impression: Intentional overdose, suicidal ideation This note was generated with [employer] dictation software. It may contain incorrect words, spelling, and punctuation that were not noted in review of the chart prior to signing ED Disposition - Plan for ED Patient: Referrals: Jason Good MD [Primary Care Provider] -
[2020-08-17 12:34] LABS: Anion Gap 9 (5-15); BUN 8 mg/dL (7-18); BUN/Creat Ratio 10.5 RATIO (10-20); Calcium,Total 10.1 mg/dL (8.5-10.1); Chloride 106 mmol/L (98-107); Creatinine, Serum 0.76 mg/dL (0.70-1.30); EST Glomerular Filtration Rate 136 mL/min (>60); Est Glom Filt Rate - Afr Amer 165 mL/min (>60); Estimated Creatinine Clearance 139.18 ml/min; Glucose 143 mg/dL (74-106); Sodium Level 141 mmol/L (136-145)
[2020-08-17 12:56] LABS: Acetaminophen (Tylenol) Level < 2.0 ug/mL (10.0-30.0); Alcohol, Blood (Medical)-Serum < 3.0 mg/dL; Salicylate < 1.7 mg/dL (2.8-20.0)
[2020-08-17 13:00] LABS: Bedside Glucose 64 mg/dL (70-110)
--- NOTE | 2020-08-17 13:21 | ED.RN ---
made aware, pt was given two orange juices which he drank immediately, will recheck the sugar in 15min.
[2020-08-17 13:30] LABS: Bedside Glucose 45 mg/dL (70-110)
[2020-08-17] MEDS: Dextrose 50%-Water 25 GM/50 ML DISP.SYRIN IV (13:34)
[2020-08-17 14:26] LABS: Bedside Glucose 164 mg/dL (70-110)
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
[2020-08-17 17:01] LABS: Bedside Glucose 288 mg/dL (70-110)
[2020-08-17] MEDS: Insulin Lispro 100 UNIT/ML INSULN.PEN 8 UNIT SC (17:47)
[2020-08-17 18:17] LABS: Amphetamine Urine VISTA NEGATIVE (<1000 ng/mL); Barbiturate Urine VISTA NEGATIVE (< 200 ng/mL); Benzodiazepine Urine VISTA NEGATIVE (< 200 ng/mL); Cocaine Urine VISTA NEGATIVE (< 300 ng/mL); Ecstacy Urine VISTA NEGATIVE (< 500 ng/mL); Methadone Urine VISTA NEGATIVE (< 300 ng/mL); PCP Urine VISTA NEGATIVE (< 25 ng/mL); THC Urine VISTA NEGATIVE (< 50 ng/mL); Vista UDS pH Range 5
--- NOTE | 2020-08-17 18:54 | CM.ED ---
SOCIAL WORK Referral called to [facility]. Per [facility], no beds available. Call to [facility], spoke with Reji. Per Reji, beds available and in network with patient's insurance. Referral faxed. Pending review at this time. Gilda Rutherford, TRUCKER HAND, DATA CONVERSION DEVELOPER
[2020-08-17 19:05] LABS: Bedside Glucose 429 mg/dL (70-110)
[2020-08-17] MEDS: Insulin Lispro 100 UNIT/ML INSULN.PEN 10 UNIT SC (19:05)
--- NOTE | 2020-08-17 19:28 | CM.ED ---
SOCIAL WORK Call from [facility]. Patient accepted by Dr. Bryant to [facility]. Nurse to call report to [phone]. Administrative Dietitian to set up transport. Patient updated. Plan: Timo Rutherford, JUNIOR DATABASE ADMINISTRATOR, MATERIAL PREPARATION WORKER
[2020-08-17 21:15] LABS: Bedside Glucose 304 mg/dL (70-110)
== END 2020-08-17 21:21 ==
LOC: ED 12:31
PROVIDERS: Emergency Provider Emergency Medicine; PCP Family Medicine
DX: R45.851 Suicidal ideations (principal); T38.3X2A Poisoning by insulin and oral hypoglycemic [antidiabetic] drugs, intentional self-harm, initial encounter; Y92.9 Unspecified place or not applicable; E11.9 Type 2 diabetes mellitus without complications; Z96.41 Presence of insulin pump (external) (internal); Z79.4 Long term (current) use of insulin
CPT/HCPCS: 36415; 80048; 80307; 80329; 82077; 82962; 85025; 87426; 93005; 99285; A4216; G0480

== ENCOUNTER 2020-10-12 09:58 | Emergency (ER) | payer MEDICAID, SELFPAY ==
[2020-08-17 11:44] VITALS: BMI 22.1
[2020-10-12 10:00] VITALS: BP 131/85; PULSE 85; RESP 16; TEMP 36.2; O2SAT 98; BMI 20.2
--- NOTE | 2020-10-12 10:23 | EKG12_ITS ---
Test Reason : SUICIDAL Blood Pressure : / mmHG Vent. Rate : 082 BPM Atrial Rate : 082 BPM P-R Int : 132 ms QRS Dur : 086 ms QT Int : 350 ms P-R-T Axes : 054 025 025 degrees QTc Int : 408 ms Normal sinus rhythm with sinus arrhythmia Normal ECG Confirmed by RONALD OLMEDO, JONATHAN ([id number]), scientific editor GWEN FRANKLIN ([id number]) on 10/15/2020 9:34:31 AM Referred By: Confirmed By:JONATHAN CARDENAS MD
--- NOTE | 2020-10-12 10:24 | ED.DCSUM_ITS ---
History of Present Illness Chief Complaint: Suicidal Informant: Patient, - Narrative: Patient is brought to the emergency department by [facility] with suicidal thoughts. Patient was [facility] to [facility] as an arrest he for unknown reason. He made statements that he wanted to commit self- harm/suicide. He states that he has nothing left to live for 2 the deputies. Patient will not give me any information or really any attention that he recognizes my presence. He told crisis he has been dealing with family stress and issues. He had an argument with his sister states he has a friend who has 2 months left to live this in a coma. He states the girl he was dating blocked him. He endorsed thoughts of hopelessness and worthlessness. He states he does not care about his diabetes. - Past Medical History (1) Anxiety and depression Status: Chronic (2) Diabetic neuropathy associated with type 1 diabetes mellitus Status: Chronic (3) GERD (gastroesophageal reflux disease) Status: Chronic (4) DKA, type 1 Status: Chronic Past Medical History - Allergies and Home Meds Allergies/Adverse Reactions: Allergies No Known Allergies Allergy (Verified 10/12/20 09:59) Primary Care Physician: Jason Good MD [Primary Care Provider] - Surgical History: no surgical history, - - BL ear tubes. Smoking Status: Never smoker Drugs: - - Denies - Family History Maternal Family History: Family History (Last Reviewed 04/22/19 @ 11:[address] Pranay Solitario MD) Mother Kidney disease Family History: Reports: Heart Disease, Renal Disease Paternal Family History: Family History (Last Reviewed 04/22/19 @ 11:[address] Pranay Solitario MD) Mother Kidney disease Family History: Reports: Heart Disease, - - Paternal family males w/ frequent hearing disorder. Additional Family History: Family history of hearing loss on the father's side in the mail. No history of Alport syndrome. Review of Systems General: Denies: Chills, Fever, Sweats Eyes: Denies: Visual changes - bilaterally, Diplopia ENT: Denies: Rhinorrhea, Sore throat Cardiovascular: Denies: Chest pain, Palpitations Respiratory: Denies: Dyspnea, Cough, Dyspnea on exertion Gastrointestinal: Denies: Abdominal pain, Nausea, Vomiting, Diarrhea, Melena, Hematochezia Genitourinary: Denies: Dysuria, Hematuria, Frequency Musculoskeletal: Denies: Back pain, Extremity Pain Skin: Denies: Rash, Wounds Neurological: Denies: Headache, Weakness, Numbness Psych: Reports: Depression, Anxiety, Suicidal thoughts, Suicidal ideations Physical Exam Vital Signs/Narrative: Vital Signs Temp Pulse Resp BP Pulse Ox 10/12/20 10:00 97.1 F L 85 16 131/85 H 98 Inital Vital Signs reviewed: Yes General: Well nourished, Well developed, No Acute Distress, - - Patient makes no eye contact with me. He keeps his eyes closed. He answers minimally to any questions I may answer. Then he stops talking completely he is more than happy though to be on his phone Head: Normocephalic, Atraumatic Eyes: Perrl, EOMI ENT: Moist mucous membranes, No rhinorrhea Neck: Supple, Nontender Cardiovascular: Regular rate, Regular rhythm, No murmurs Respiratory: No distress, CTA bilaterally, Chest nontender Abdomen: Soft, Nontender, Nondistended, Normal bowel sounds Back: Nontender, Normal Inspection Extremities: Nontender, No edema Skin: Normal color, No rash Neurological: Alert, Oriented x3, Cranial nerves II-XII grossly intact, Normal Strength, Normal Sensation Psychological: Depressed Diagnostic/Tx/Re-eval Laboratory Last Values WBC 6.3 K/mm3 (4.4-11.0) 10/12/20 10:30 RBC 4.95 M/mm3 (4.6-6.2) 10/12/20 10:30 Hgb 14.2 g/dL (13.0-16.5) 10/12/20 10:30 Hct 44.0 % (40-54) 10/12/20 10:30 MCV 88.9 fL (80-94) 10/12/20 10:30 MCH 28.7 pg (27.0-32.0) 10/12/20 10:30 MCHC 32.3 g/dL (32-36) 10/12/20 10:30 RDW Std Deviation 47.1 fl (35.1-43.9) H 10/12/20 10:30 RDW Coeff of Richard 14.6 % (11.6-14.6) 10/12/20 10:30 Plt Count 275 K/mm3 (150-450) 10/12/20 10:30 MPV 9.9 fl (6.2-12.0) 10/12/20 10:30 Immature Gran % (Auto) 0.500 % (0.0-0.9) 10/12/20 10:30 Neut % (Auto) 60.6 % (47-70) 10/12/20 10:30 Lymph % (Auto) 28.7 % (19-41) 10/12/20 10:30 [place] % (Auto) 8.3 % (0-10) 10/12/20 10:30 Eos % (Auto) 1.6 % (0-5) 10/12/20 10:30 Baso % (Auto) 0.3 % (0-1) 10/12/20 10:30 Absolute Neuts (auto) 3.8 X10^3/uL (2.0-7.7) 10/12/20 10:30 Absolute Lymphs (auto) 1.80 X10^3/uL (0.83-4.51) 10/12/20 10:30 Nucleated RBC % 0 % (0-5) 10/12/20 10:30 Sodium 138 mmol/L (136-145) 10/12/20 10:30 Potassium 3.8 mmol/L (3.5-5.1) 10/12/20 10:30 Chloride 104 mmol/L (98-107) 10/12/20 10:30 Carbon Dioxide 28.0 mmol/L (21.0-32.0) 10/12/20 10:30 Anion Gap 6 (5-15) 10/12/20 10:30 BUN 8 mg/dL (7-18) 10/12/20 10:30 Creatinine 0.81 mg/dL (0.70-1.30) 10/12/20 10:30 Estim Creat Clear Calc 126.92 ml/min 10/12/20 10:30 Est GFR (MDRD) Af Amer 154 mL/min (>60) 10/12/20 10:30 Est GFR (MDRD) Non-Af 127 mL/min (>60) 10/12/20 10:30 BUN/Creatinine Ratio 9.9 RATIO (10-20) L 10/12/20 10:30 Glucose 330 mg/dL (74-106) H 10/12/20 10:30 Calcium 8.5 mg/dL (8.5-10.1) 10/12/20 10:30 Total Bilirubin 0.30 mg/dL (0.20-1.00) 10/12/20 10:30 AST 58 U/L (15-37) H 10/12/20 10:30 ALT 59 U/L (16-61) 10/12/20 10:30 Alkaline Phosphatase 137 U/L (45-117) H 10/12/20 10:30 Total Protein 6.3 g/dL (6.4-8.2) L 10/12/20 10:30 Albumin 3.1 g/dL (3.2-5.0) L 10/12/20 10:30 Globulin 3.2 g/dL (2.2-4.2) 10/12/20 10:30 Albumin/Globulin Ratio 1.0 RATIO (0.9-2.4) 10/12/20 10:30 Urine Opiates Screen NEGATIVE (< 300 ng/mL) 10/12/20 10:45 Urine Methadone Screen NEGATIVE (< 300 ng/mL) 10/12/20 10:45 Ur Barbiturates Screen NEGATIVE (< 200 ng/mL) 10/12/20 10:45 Ur Phencyclidine Scrn NEGATIVE (< 25 ng/mL) 10/12/20 10:45 Ur Amphetamines Screen NEGATIVE (<1000 ng/mL) 10/12/20 10:45 U Methamphetamin-MDMA NEGATIVE (< 500 ng/mL) 10/12/20 10:45 U Benzodiazepines Scrn NEGATIVE (< 200 ng/mL) 10/12/20 10:45 Urine Cocaine Screen NEGATIVE (< 300 ng/mL) 10/12/20 10:45 U Cannabinoids Screen NEGATIVE (< 50 ng/mL) 10/12/20 10:45 Ur Drug Screen Comment 10/12/20 10:45 Ethyl Alcohol < 3.0 mg/dL 10/12/20 10:30 POC Glucose 245 mg/dL (70-110) H 10/12/20 11:43 - EKG Initial EKG Interpretation: Sinus Rhythm - EKG demonstrates a normal sinus rhythm with sinus arrhythmia with a rate of 82. No concerning features of ACS or ectopy - Medical Decision Making Covid is negative Patient is medically cleared and I would anticipate transfer to psychiatric facility ED Disposition - Plan for ED Patient: Disposition: Psychiatric Hospital or Unit Diagnosis: Acute depression, Suicidal ideation, DKA, type 1 Referrals: Jason Good MD [Primary Care Provider] -
[2020-10-12 10:43] LABS: Absolute Neutrophil Count 3.8 X10^3/uL (2.0-7.7); Basophil# 0.02 X10^3/uL; Basophil% 0.3 % (0-1); Eosinophils% 1.6 % (0-5); Hemoglobin 14.2 g/dL (13.0-16.5); Lymphocyte % 28.7 % (19-41); Mean Corp Hgb Conc 32.3 g/dL (32-36); Mean Corpuscular Hgb 28.7 pg (27.0-32.0); Mean Corpuscular Volume 88.9 fL (80-94); Mean Platelet Vol. 9.9 fl (6.2-12.0); Monocyte# 0.52 X10^3/uL; Monocyte% 8.3 % (0-10); NRBC Flagged by Analyzer 0 % (0-5); Neutrophil % 60.6 % (47-70); Platelet Count 275 K/mm3 (150-450); RBC Distribution Width CV 14.6 % (11.6-14.6); RBC Distribution Width SD 47.1 fl (35.1-43.9); Red Blood Count 4.95 M/mm3 (4.6-6.2); White Blood Count 6.3 K/mm3 (4.4-11.0)
[2020-10-12 10:58] LABS: AST(SGOT) 58 U/L (15-37); Alanine Aminotransfer ALT/SGPT 59 U/L (16-61); Albumin, Serum 3.1 g/dL (3.2-5.0); Alkaline Phosphatase 137 U/L (45-117); Anion Gap 6 (5-15); BUN 8 mg/dL (7-18); BUN/Creat Ratio 9.9 RATIO (10-20); Calcium,Total 8.5 mg/dL (8.5-10.1); Chloride 104 mmol/L (98-107); Creatinine, Serum 0.81 mg/dL (0.70-1.30); EST Glomerular Filtration Rate 127 mL/min (>60); Est Glom Filt Rate - Afr Amer 154 mL/min (>60); Estimated Creatinine Clearance 126.92 ml/min; Globulin 3.2 g/dL (2.2-4.2); Glucose 330 mg/dL (74-106); Potassium 3.8 mmol/L (3.5-5.1); Protein, Total 6.3 g/dL (6.4-8.2); Sodium Level 138 mmol/L (136-145)
--- NOTE | 2020-10-12 11:07 | CM.ED ---
SOCIAL WORK Collaboration with Dr. Nunn and Jennifer with Crisis. Patient was assessed by Marta with Crisis from nursing home on 10/10/20. Plan is for inpatient psych. This worker to assist as needed. Gilda Rutherford, PULMONARY FUNCTION TECHNOLOGIST, CHANGE PERSON
[2020-10-12 11:08] LABS: Alcohol, Blood (Medical)-Serum < 3.0 mg/dL
[2020-10-12 11:12] LABS: Amphetamine Urine VISTA NEGATIVE (<1000 ng/mL); Barbiturate Urine VISTA NEGATIVE (< 200 ng/mL); Benzodiazepine Urine VISTA NEGATIVE (< 200 ng/mL); Cocaine Urine VISTA NEGATIVE (< 300 ng/mL); Ecstacy Urine VISTA NEGATIVE (< 500 ng/mL); Methadone Urine VISTA NEGATIVE (< 300 ng/mL); PCP Urine VISTA NEGATIVE (< 25 ng/mL); THC Urine VISTA NEGATIVE (< 50 ng/mL); Vista UDS pH Range 6
--- NOTE | 2020-10-12 11:32 | CM.ED ---
SOCIAL WORK Chart faxed to [facility] for placement. Gilda Rutherford, POLITICAL DIRECTOR, SODDER
[2020-10-12 11:46] LABS: Bedside Glucose 245 mg/dL (70-110)
[2020-10-12 12:23] VITALS: RESP 16
[2020-10-12 13:21] VITALS: RESP 14
[2020-10-12 14:23] VITALS: RESP 16
[2020-10-12 14:26] LABS: Bedside Glucose 125 mg/dL (70-110)
--- NOTE | 2020-10-12 14:53 | CM.ED ---
SOCIAL WORK Additional clinical information faxed to [facility] per request. Pending acceptance at this time. Gilda Rutherford, TOP COLLAR MAKER, STUDENT SPECIALIST
--- NOTE | 2020-10-12 15:27 | CM.ED ---
SOCIAL WORK Call from [place] with Crisis. Patient accepted to [facility] by [facility] to [address]. Nurse to call report to . [employer] to set up transport. Copy of [place] [facility] faxed to [facility] . Gilda Rutherford, OIL WELL SERVICES DISPATCHER, STOREKEEPER HELPER
[2020-10-12 15:49] VITALS: BP 110/70; PULSE 80; RESP 18; O2SAT 98
[2020-10-12 16:02] VITALS: RESP 16
--- NOTE | 2020-10-12 16:38 | CM.ED ---
SOCIAL WORK Received call from nursing. Informed friend called in reporting patient is texting stating, even after hospitalization, I will kill myself. Call to [facility] to update on threats. Gilda Rutherford, STATIONARY FIREMAN, PERL SOFTWARE ENGINEER
== END 2020-10-12 16:47 ==
PROVIDERS: Emergency Provider Emergency Medicine; PCP Family Medicine
DX: R45.851 Suicidal ideations (principal); F32.9 Major depressive disorder, single episode, unspecified; E10.10 Type 1 diabetes mellitus with ketoacidosis without coma; F41.9 Anxiety disorder, unspecified; K21.9 Gastro-esophageal reflux disease without esophagitis; E10.40 Type 1 diabetes mellitus with diabetic neuropathy, unspecified
CPT/HCPCS: 80053; 80307; 82077; 82962; 85025; 87426; 93005; 99285

== ENCOUNTER 2021-01-07 00:28 | Emergency (ER) | payer MEDICAID, SELFPAY ==
[2021-01-07 00:29] VITALS: BP 132/87; PULSE 120; RESP 16; TEMP 36.6; O2SAT 98; BMI 24.0
--- NOTE | 2021-01-07 01:00 | EDS_ITS ---
HPI History of Present Illness HPI Narrative: Mechanical fall flexed left knee this morning running up the steps hitting the corner. Pain worse when he tries to bend his knee. Took Tylenol with no relief. Is type I diabetic. Denies history of gastric ulcers or kidney injury. No hip pain. No head injuries. Chief Complaint: Lower Extremity Injury [facility] Medical History (Updated 01/07/21 @ 01:[address] Sachin Angeles DO) Anxiety disorder Back problem Bone fracture Diabetes type 1, uncontrolled Hearing problem Liver disease Seizure Vision problem Home Medications gabapentin 800 mg PO TID 09/15/19 [History Last Taken Unknown] insulin aspart U-100 10 units SQ TID 03/15/20 [History Last Taken Unknown] insulin aspart U-100 0 units SQ BID 08/17/20 [History Last Taken Unknown] duloxetine 60 mg PO DAILY 10/12/20 [History Last Taken Unknown] ibuprofen 600 mg PO Q6H PRN PRN #20 tab 01/07/21 [Rx Last Taken Unknown] venlafaxine 37.5 mg PO DAILY 01/07/21 [History Last Taken Unknown] Allergy/AdvReac Type Severity Reaction Status Date / Time No Known Allergies Allergy Verified 01/07/21 00:33 Family History Mother Kidney disease Surgical History S/p bilateral myringotomy with tube placement Social History Smoking Status: Never smoker second hand exposure: No alcohol intake: never substance use type: does not use ROS ROS ED Constitutional Constitutional ED: Denies chills, fever(s) or sweats Eyes Eyes: Denies change in vision ENT ENT ED: Denies dysphagia or sore throat Cardiovascular Cardiovascular: Denies chest pain, leg edema, palpitations or racing heartbeat Respiratory/Chest Respiratory/Chest: Denies cough, dyspnea or dyspnea on exertion Gastrointestinal Gastrointestinal: Denies abdominal pain, diarrhea, nausea or vomiting Genitourinary Genitourinary ED: Denies dysuria, hematuria or urinary frequency Musculoskeletal Musculoskeletal: Reports other Details: Left knee pain ; Denies back pain, extremity pain or neck pain Integumentary Denies rash or wounds Neurologic Neurologic: Denies headache(s), paresthesias or weakness EXAM Physical Exam Const Vital Signs: 01/07/21 00:29 Temperature 97.9 F Temperature Source Temporal Pulse Rate 120 H Respiratory Rate 16 Blood Pressure 132/87 H Blood Pressure Mean 102 Pulse Ox 98 Oxygen Delivery Method Room Air Positive well nourished and well developed General Appearance ED: well developed and NAD HEENT Reports moist mucous membranes normocephalic and atraumatic Eyes PERRL, EOMs intact bilaterally and conjunctivae normal General Eye ED: Yes normal appearance of both eyes Neck no lymphadenopathy and supple General: Negative for tenderness Chest Wall Chest: Negative for tenderness Resp normal respiratory effort and normal air movement Effort and Inspection: symmetric chest movement; Negative for respiratory distress Cardio regular rate, regular rhythm and no murmurs Peripheral Pulses: pulses 2+ throughout GI normal to inspection, nondistended, normoactive bowel sounds and non-tender Palpation: Negative for guarding or rebound tenderness present Back/Spine no CVA tenderness and no thoracic nor lumbar tenderness Extremity Extremity Narrative: Left lower extremity: Negative logroll. Knee extensor mechanism intact. There is tenderness to the mid patellar. Negative varus and valgus stress. Skin intact. Neurovascular intact distally. General Extremety ED: Negative for edema or tenderness General Extremity: Negative for edema Neuro oriented x3 and no sensory deficits noted Sensorium / Orientation: awake and alert Skin no rashes or lesions noted and no wounds MDM MDM MDM Narrative Medical decision making narrative: 4 view x-ray left knee obtained reviewed by myself and read by radiology negative for any acute process. Ibuprofen given the ED. Jose wrap and crutches. Prescription for ibuprofen with outpatient follow-up. Discussed weight-bear as tolerated. All questions answered. Radiography Diagnostic Testing: Radiology Impression Knee X-Ray 01/07/21 01:08 IMPRESSION: Normal x-ray examination of the knee. Electronically Signed: Rasheed Mabry DO at 1:39 EDT Tel , Service support , Discharge Plan Triage Chief Complaint: Lower Extremity Injury ED Provider: Sachin Angeles Dx/Rx/DC Orders Clinical Impression: Contusion of knee, left Instructions: ED Contusion, Lower Extremity Prescriptions: New ibuprofen 600 mg tablet 600 mg PO Q6H PRN PRN (Reason: pain) Qty: 20 RF: 0 No Action gabapentin 300 MG capsule 800 mg PO TID RF: 0 insulin aspart U-100 100 unit/mL solution 10 units SQ TID RF: 0 insulin aspart U-100 100 UNIT/ML solution 0 units SQ BID RF: 0 duloxetine 60 MG capsule 60 mg PO DAILY RF: 0 venlafaxine 37.5 mg capsule,extended release 24hr 37.5 mg PO DAILY RF: 0 Stand Alone Forms: ED Work / School Excuse Primary Care Provider: Jason Good Referrals: Jason Good MD [Primary Care Provider] - 1 Week if not improving Disposition Disposition: Home, Self Care
--- NOTE | 2021-01-07 01:08 | RAD_ITS ---
STUDY: X-RAY - LEFT KNEE REASON FOR EXAM: Male, 20 years old. injury TECHNIQUE: 4 view(s) of the knee. COMPARISON: None. FINDINGS: Normal visualized distal femur. Normal visualized proximal tibia and fibula. Normal proximal tibiofibular articulation. Normal medial femorotibial compartment. Normal lateral femorotibial compartment. Normal patellofemoral articulation. The soft tissue structures are unremarkable. RAD/Knee 4 or More Views IMPRESSION: Normal x-ray examination of the knee. Electronically Signed: Rasheed Mabry DO at 1:39 EDT Tel , Service support ,
[2021-01-07] MEDS: Ibuprofen 600 MG Tablet PO (01:16)
== END 2021-01-07 02:24 | disposition home or self-care (01) ==
PROVIDERS: Emergency Provider Emergency Medicine; PCP Family Medicine
DX: S80.02XA Contusion of left knee, initial encounter (principal); W10.9XXA Fall (on) (from) unspecified stairs and steps, initial encounter; E10.65 Type 1 diabetes mellitus with hyperglycemia; F41.9 Anxiety disorder, unspecified; Z79.4 Long term (current) use of insulin; Z79.899 Other long term (current) drug therapy
CPT/HCPCS: 73564; 99284

== ENCOUNTER 2021-01-23 18:36 | Emergency (ER) | payer MEDICAID, SELFPAY ==
[2021-01-23 18:37] VITALS: BP 107/76; PULSE 118; RESP 18; TEMP 36.2; O2SAT 95; BMI 20.2
--- NOTE | 2021-01-23 19:00 | CM.ED ---
SOCIAL WORK Active ED Care Plan Reviewed ED Care Plan with Dr. Nunn. SW to remain available for needs. Gilda Rutherford, WAREHOUSE INSULATION WORKER, HANDICAPPED TEACHER
--- NOTE | 2021-01-23 19:06 | EDS_ITS ---
HPI History of Present Illness Chief Complaint: Nausea/Vomiting Informant: patient Narrative Narrative: 20-year-old male states 4 days ago he began to have diarrhea which has persisted. 3 days ago he developed vomiting. His niece who lives in the same house is also having vomiting. He thought maybe it was due to his elevated blood sugars that when he checked it it was only 214. Yesterday he was less than 120. He got sent home from today with persistent nausea. Patient states he feels very lightheaded. He has a history of type 1 diabetes and is currently on insulin therapy. He denies any fevers. He does note burning in his chest and some nasal congestion. His niece has a fever. [facility] Medical History (Updated 01/23/21 @ 20:[address] Augusto Nunn DO) Anxiety disorder Back problem Bone fracture Diabetes type 1, uncontrolled Hearing problem Liver disease Seizure Vision problem Home Medications gabapentin 800 mg PO TID 09/15/19 [History Last Taken Unknown] insulin lispro 2 units BID 01/23/21 [History Last Taken Unknown] ondansetron 4 mg PO Q6H PRN PRN #15 tab 01/23/21 [Rx Last Taken Unknown] Allergy/AdvReac Type Severity Reaction Status Date / Time No Known Allergies Allergy Verified 01/23/21 18:37 Family History Mother Kidney disease Surgical History S/p bilateral myringotomy with tube placement Social History Smoking Status: Never smoker second hand exposure: No alcohol intake: never substance use type: does not use ROS ROS ED Constitutional Constitutional ED: Reports other Details: Lightheaded ; Denies chills or weight loss Eyes Eyes: Denies change in vision or diplopia ENT ENT ED: Reports rhinorrhea; Denies ear pain or sore throat Cardiovascular Cardiovascular: Reports chest pain; Denies orthopnea, palpitations or racing heartbeat Respiratory/Chest Respiratory/Chest: Denies cough, dyspnea or orthopnea Gastrointestinal Gastrointestinal: Reports diarrhea, nausea and vomiting; Denies abdominal pain Genitourinary Genitourinary ED: Denies dysuria, hematuria or urinary frequency Musculoskeletal Musculoskeletal: Denies arthralgias or myalgias Integumentary Denies abscess or rash Neurologic Neurologic: Denies headache(s) or weakness Psychiatric Psychiatric: Denies anxiety, depression, suicidal ideation or suicidal thoughts Endocrine Endocrinology: Denies polydipsia, polyphagia or polyuria Allergic/Immunologic Allergic/Immunologic ED: Denies mouth swelling, tongue swelling or urticaria EXAM Physical Exam Const Vital Signs: 01/23/21 18:37 01/23/21 20:42 Temperature 97.1 F L Temperature Source Temporal Pulse Rate 118 H 84 Respiratory Rate 18 18 Blood Pressure 107/76 101/68 Blood Pressure Mean 86 79 Pulse Ox 95 99 Oxygen Delivery Method Room Air Room Air Positive well nourished and well developed General Appearance ED: well developed HEENT Reports normocephalic, head/scalp atraumatic and moist mucous membranes Eyes PERRL and EOMs intact bilaterally Neck no lymphadenopathy, supple and no JVD Resp normal respiratory effort and clear to auscultation bilaterally Cardio regular rate and no murmurs Rate: tachycardic GI normal to inspection, nondistended, normoactive bowel sounds and non-tender Palpation: soft Back/Spine no CVA tenderness and normal ROM Extremity normal to inspection General Extremety ED: Negative for edema General Extremity: Negative for edema Neuro oriented x3 and CN's II-XII intact bilaterally Sensorium / Orientation: alert Motor Exam: strength 5/5 throughout Psych mental status grossly normal Mood & Affect: Negative for depressed or tearful Skin no rashes or lesions noted and no wounds MDM MDM MDM Narrative Medical decision making narrative: Patient received IV fluids and Zofran. Repeat examination finds his heart rate down from 118-84. CBC showed hemoglobin 16.9. He has a slight elevation in his AST and ALT and alk phos. Total bilirubin is normal. His abdomen however for me is benign. At this point I think the patient can be discharged home. I will write him prescription for Zofran and Imodium as needed oral hydration urged. Lab Data Attestation: I reviewed the patient's lab results. Labs: Laboratory Results - last 24 hr 01/23/21 01/23/21 19:20 19:20 WBC 8.9 RBC 5.69 Hgb 16.9 H Hct 50.3 MCV 88.4 MCH 29.7 MCHC 33.6 RDW Std Deviation 40.7 RDW Coeff of Richard 12.5 Plt Count 371 MPV 9.4 Immature Gran % (Auto) 1.500 H Neut % (Auto) 67.0 Lymph % (Auto) 21.9 [place] % (Auto) 7.8 Eos % (Auto) 1.1 Baso % (Auto) 0.7 Absolute Neuts (auto) 6.0 Absolute Lymphs (auto) 1.95 Nucleated RBC % 0 Sodium 138 Potassium 3.6 Chloride 104 Carbon Dioxide 22.0 Anion Gap 12 BUN 17 Creatinine 1.22 Estim Creat Clear Calc 81.00 Est GFR (MDRD) Af Amer 96 Est GFR (MDRD) Non-Af 79 BUN/Creatinine Ratio 13.9 Glucose 207 H Calcium 9.3 Total Bilirubin 0.60 AST 63 H ALT 148 H Alkaline Phosphatase 165 H Total Protein 7.6 Albumin 3.8 Globulin 3.8 Albumin/Globulin Ratio 1.0 Lipase 24 L Discharge Plan Triage Chief Complaint: Nausea/Vomiting Other Complaint: Abd Pain ED Provider: Augusto Nunn Dx/Rx/DC Orders Clinical Impression: Gastroenteritis Instructions: ED Gastroenteritis, Viral (Adult) Prescriptions: New ondansetron [ondansetron] 4 MG tablet 4 mg PO Q6H PRN PRN (Reason: Nausea) Qty: 15 RF: 0 No Action gabapentin 300 MG capsule 800 mg PO TID RF: 0 insulin lispro 2 units BID RF: 0 Primary Care Provider: Jason Good Referrals: Jason Good MD [Primary Care Provider] - As Needed Disposition Disposition: Home, Self Care
[2021-01-23] MEDS: Ondansetron 4 MG/2 ML Vial IV (19:25)
[2021-01-23] MEDS: 0.9% Normal Saline 1,000 ML 1000 ML IV (19:26)
[2021-01-23 20:05] LABS: Absolute Lymphocyte Count 1.95 X10^3/uL (0.83-4.51); Basophil# 0.06 X10^3/uL; Basophil% 0.7 % (0-1); Eosinophils% 1.1 % (0-5); Hematocrit 50.3 % (40-54); Hemoglobin 16.9 g/dL (13.0-16.5); Lymphocyte # 1.95 X10^3/ul (0.83-4.51); Lymphocyte % 21.9 % (19-41); Mean Corp Hgb Conc 33.6 g/dL (32-36); Mean Corpuscular Hgb 29.7 pg (27.0-32.0); Mean Corpuscular Volume 88.4 fL (80-94); Mean Platelet Vol. 9.4 fl (6.2-12.0); Monocyte% 7.8 % (0-10); NRBC Flagged by Analyzer 0 % (0-5); Neutrophil # 5.98 X10^3/uL (2.7-7.7); Platelet Count 371 K/mm3 (150-450); RBC Distribution Width CV 12.5 % (11.6-14.6); RBC Distribution Width SD 40.7 fl (35.1-43.9); Red Blood Count 5.69 M/mm3 (4.6-6.2); White Blood Count 8.9 K/mm3 (4.4-11.0)
[2021-01-23 20:21] LABS: AST(SGOT) 63 U/L (15-37); Alanine Aminotransfer ALT/SGPT 148 U/L (16-61); Albumin, Serum 3.8 g/dL (3.2-5.0); Alkaline Phosphatase 165 U/L (45-117); Anion Gap 12 (5-15); BUN 17 mg/dL (7-18); BUN/Creat Ratio 13.9 RATIO (10-20); Calcium,Total 9.3 mg/dL (8.5-10.1); Chloride 104 mmol/L (98-107); Creatinine, Serum 1.22 mg/dL (0.70-1.30); EST Glomerular Filtration Rate 79 mL/min (>60); Est Glom Filt Rate - Afr Amer 96 mL/min (>60); Globulin 3.8 g/dL (2.2-4.2); Glucose 207 mg/dL (74-106); Lipase 24 U/L (73-393); Potassium 3.6 mmol/L (3.5-5.1); Protein, Total 7.6 g/dL (6.4-8.2); Sodium Level 138 mmol/L (136-145)
[2021-01-23 20:42] VITALS: BP 101/68; PULSE 84; RESP 18; O2SAT 99
== END 2021-01-23 20:58 | disposition home or self-care (01) ==
PROVIDERS: Emergency Provider Emergency Medicine; PCP Family Medicine
DX: K52.9 Noninfective gastroenteritis and colitis, unspecified (principal); E10.9 Type 1 diabetes mellitus without complications; Z79.84 Long term (current) use of oral hypoglycemic drugs
CPT/HCPCS: 80053; 83690; 85025; 87426; 96374; 99283; J7030; A4216; J2405

== ENCOUNTER 2021-06-29 06:24 | Emergency (ER) | payer MEDICAID, SELFPAY ==
[2021-06-29 06:25] VITALS: BP 121/87; PULSE 108; RESP 16; TEMP 36; O2SAT 97; BMI 18.3
--- NOTE | 2021-06-29 07:07 | ED.VIS.GI ---
HPI HPI - GI History of Present Illness Chief Complaint: Nausea/Vomiting Informant: patient Abdominal Pain/Flank Pain Onset: Today and Yesterday Context: Gradual Onset Timing: Intermittent Current Severity: Mild Maximum Severity: Mild Nausea/Vomiting/Emesis GI Symptom: Positive for Nausea and Vomiting Onset: Today and Yesterday Severity: Mild Diarrhea/Melena/Hematochezia GI Symptom: Negative for Diarrhea, Melena and Hematochezia Associated Symptoms Associated Symptoms: Negative for Dysuria and Frequency Narrative Narrative: 20-year-old male History of insulin-dependent diabetes. Has had recurrent nausea and vomiting since yesterday. No diarrhea. No abdominal pain. Blood sugars are running in the mid 200 range. Prior similar symptoms: Yes Recent Illness/Hospitalization: No PFSH PFSH Medical History (Updated 06/29/21 @ 11:[address] Michael Cortez MD) Anxiety disorder Back problem Bone fracture Diabetes type 1, uncontrolled Hearing problem Liver disease Seizure Vision problem Home Medications gabapentin 800 mg PO TID 09/15/19 [History Last Taken Unknown] insulin lispro 0 unit SUBCUT TID 06/29/21 [History Last Taken Unknown] Allergy/AdvReac Type Severity Reaction Status Date / Time No Known Allergies Allergy Verified 06/29/21 06:27 Family History Mother Kidney disease Surgical History S/p bilateral myringotomy with tube placement Social History Smoking Status: Never smoker second hand exposure: No alcohol intake: never substance use type: does not use ROS ROS ED ROS Narrative Nausea and vomiting. Review of Systems ROS Unobtainable: Denies due to encephalopathy Constitutional Constitutional ED: Denies fever(s) ENT ENT ED: Denies ear pain Cardiovascular Cardiovascular: Denies chest pain Respiratory/Chest Respiratory/Chest: Denies cough, dyspnea or sputum Gastrointestinal Gastrointestinal: Reports nausea and vomiting; Denies abdominal pain or diarrhea Genitourinary Genitourinary ED: Denies dysuria Musculoskeletal Musculoskeletal: Denies myalgias Integumentary Denies rash Neurologic Neurologic: Denies headache(s) Psychiatric Psychiatric: Denies depression Endocrine Endocrinology: Denies polyuria Hematologic/Lymphatic Hematologic/Lymphatic: Denies easy bruising Allergic/Immunologic Allergic/Immunologic ED: Denies urticaria EXAM Physical Exam Narrative Exam Narrative: 18-year-old male no acute distress. Vital signs stable and afebrile. H EENT exam mildly dry mucous memories. Neck nontender no JVD no lymphadenopathy. Lungs clear to auscultation bilaterally. Heart regular rhythm rate about 105 no murmur. Abdomen is soft, nondistended, nontender normal bowel sounds without peritoneal signs. No hernia or mass. No signs of obstruction. Moving all 4 extremities. Calves nontender without edema or cords. Neurologically awake and alert with no focal motor deficits. Const Vital Signs: 06/29/21 06:25 06/29/21 08:31 Temperature 96.8 F L Temperature Source Temporal Pulse Rate 108 H 84 Respiratory Rate 16 18 Blood Pressure 121/87 H 129/84 H Blood Pressure Mean 98 99 Pulse Ox 97 97 Oxygen Delivery Method Room Air Room Air Positive well nourished and well developed; Negative for obese, cachectic, contractures or unkempt General Appearance ED: well developed and NAD; Negative for unkempt, cachectic, contractures or pallor Nutritional Appearance: Negative for cachectic or obese HEENT Reports dry mucous membranes normocephalic and atraumatic; Negative for trauma or tenderness Mouth ED: Yes dry mucous membranes Mouth: dry mucous membranes Eyes PERRL and EOMs intact bilaterally Neck no lymphadenopathy, supple and no JVD General: Negative for tenderness Resp normal respiratory effort and clear to auscultation bilaterally Auscultation: Negative for rales, rhonchi or wheezes Cardio regular rhythm, S1 normal heart sound, S2 normal heart sound and no murmurs; Negative for regular rate Rate: tachycardic GI non-tender, non-distended and no masses Inspection: Negative for abdominal distention Auscultation: normoactive bowel sounds Palpation: soft; Negative for tender, guarding, rigid or rebound tenderness present Back/Spine no CVA tenderness General Back: Negative for CVA tenderness Extremity full ROM General Extremety ED: Negative for edema or tenderness General Extremity: Negative for edema Neuro moves all extremities Sensorium / Orientation: alert, oriented to person, oriented to place and oriented to time; Negative for orientation impaired, confused, lethargic or stuporous Motor Exam: strength 5/5 throughout Psych mental status grossly normal and thought process normal Appearance: Negative for unkempt Skin no wounds General Skin Exam: Negative for jaundice or pallor Lesions: no lesions Rashes: no rashes MDM MDM MDM Narrative Medical decision making narrative: Insulin-dependent diabetic with nausea and vomiting. Patient be treated with IV fluids and Zofran. Chemistry panel be obtained. Clinically at this time I do not he is in DKA. Repeat exam patient is doing well at 8:50 AM. He is feeling better with the nausea medication the IV fluids. He and I went over his labs. He really does not want to be admitted to the hospital given the current bed situation I am to try to observe him in the emergency department treating with fluids and insulin and see if we can get him improved. After second liter of fluid and a dose of subcu insulin we will recheck his chemistry panel. Patient doing well on repeat exam at 11:47 AM. To be discharged home. Fluids rest and watch his blood sugars closely. Return if worse. Lab Data Attestation: I reviewed the patient's lab results. Lab results narrative: Electrolytes show potassium of 3.3 anion gap of 21. His blood sugar is 07/19/2026 which of been unlikely for DKA but I will check a serum acetone. Serum acetone was moderate. Repeat labs were obtained after patient was treated with IV fluids x2 L and insulin. His anion gap has improved from 21 down to 11. His BUN is 14 his creatinine is now normalized to 0.86. His glucose is currently 267 down from 327. Labs: Laboratory Results - last 24 hr 06/29/21 06/29/21 06/29/21 06:32 06:32 10:40 Sodium 139 142 Potassium 3.3 L 4.0 Chloride 103 111 H Carbon Dioxide 15.0 L 20.0 L Anion Gap 21 H 11 BUN 16 14 Creatinine 1.55 H 0.86 Estim Creat Clear Calc 59.74 107.67 Est GFR (MDRD) Af Amer 72 142 Est GFR (MDRD) Non-Af 60 117 BUN/Creatinine Ratio 10.3 16.2 Glucose 327 H 267 H Calcium 10.2 H 8.4 L Acetone Level MODERATE H 06/29/21 10:40 Sodium Potassium Chloride Carbon Dioxide Anion Gap BUN Creatinine Estim Creat Clear Calc Est GFR (MDRD) Af Amer Est GFR (MDRD) Non-Af BUN/Creatinine Ratio Glucose Calcium Acetone Level MODERATE H Discharge Plan Triage Chief Complaint: Nausea/Vomiting ED Provider: Michael Cortez Dx/Rx/DC Orders Clinical Impression: DM I (diabetes mellitus, type I), uncontrolled, Anxiety and depression, Nausea & vomiting, Acute dehydration, Hyperglycemia due to type 1 diabetes mellitus Instructions: Dehydration, ED Diabetic Hyperglycemia Prescriptions: No Action gabapentin 300 MG capsule 800 mg PO TID RF: 0 insulin lispro 100 unit/mL Insulin Pen 0 unit SUBCUT TID RF: 0 Primary Care Provider: Jason Good Referrals: Jason Good MD [Primary Care Provider] - 3-5 Days if not improving Activity Restrictions/Additional Instructions: Plenty of fluids and rest. Watch your blood sugars closely. Follow-up with your doctor if not improving. Return emergency department if you are feeling a lot worse. Disposition Disposition: Home, Self Care
[2021-06-29 07:24] LABS: Anion Gap 21 (5-15); BUN 16 mg/dL (7-18); BUN/Creat Ratio 10.3 RATIO (10-20); Calcium,Total 10.2 mg/dL (8.5-10.1); Chloride 103 mmol/L (98-107); Creatinine, Serum 1.55 mg/dL (0.70-1.30); EST Glomerular Filtration Rate 60 mL/min (>60); Est Glom Filt Rate - Afr Amer 72 mL/min (>60); Estimated Creatinine Clearance 59.74 ml/min; Glucose 327 mg/dL (74-106); Potassium 3.3 mmol/L (3.5-5.1); Sodium Level 139 mmol/L (136-145)
[2021-06-29] MEDS: 0.9% Normal Saline 1,000 ML 1000 ML IV (07:45)
[2021-06-29] MEDS: Ondansetron 4 MG/2 ML Vial IV (07:45)
[2021-06-29 08:31] VITALS: BP 129/84; PULSE 84; RESP 18; O2SAT 97
[2021-06-29] MEDS: 0.9% Normal Saline 1,000 ML 999 ML IV (08:36)
[2021-06-29] MEDS: Insulin Lispro 100 UNIT/ML INSULN.PEN 6 UNIT SC (09:43)
[2021-06-29 11:03] LABS: Anion Gap 11 (5-15); BUN 14 mg/dL (7-18); BUN/Creat Ratio 16.2 RATIO (10-20); Chloride 111 mmol/L (98-107); Creatinine, Serum 0.86 mg/dL (0.70-1.30); EST Glomerular Filtration Rate 117 mL/min (>60); Est Glom Filt Rate - Afr Amer 142 mL/min (>60); Estimated Creatinine Clearance 107.67 ml/min; Glucose 267 mg/dL (74-106); Sodium Level 142 mmol/L (136-145)
[2021-06-29 11:04] LABS: Calcium,Total 8.4 mg/dL (8.5-10.1)
[2021-06-29 11:59] VITALS: BP 124/69; PULSE 71; RESP 15; O2SAT 97
== END 2021-06-29 12:02 | disposition home or self-care (01) ==
PROVIDERS: Emergency Provider Emergency Medicine; PCP Family Medicine
DX: E10.65 Type 1 diabetes mellitus with hyperglycemia (principal); E86.0 Dehydration; F41.9 Anxiety disorder, unspecified; F32.A Depression, unspecified; Z79.4 Long term (current) use of insulin
CPT/HCPCS: 80048; 82009; 99285; J7030; J2405

== ENCOUNTER 2021-09-08 21:50 | Emergency (ER) | payer MEDICAID, SELFPAY ==
[2021-09-08 21:51] VITALS: BP 129/81; PULSE 120; RESP 17; TEMP 36.9; O2SAT 100
[2021-09-08 22:16] LABS: Bedside Glucose > 500 mg/dL (70-110)
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
[2021-09-08 22:27] VITALS: PULSE 102; RESP 28; O2SAT 99
[2021-09-08] MEDS: 0.9% Normal Saline 1,000 ML 1000 ML IV ×2 (22:31→23:27)
[2021-09-08 22:39] LABS: Absolute Lymphocyte Count 2.17 X10^3/uL (0.83-4.51); Absolute Neutrophil Count 1.9 X10^3/uL (2.0-7.7); Basophil# 0.03 X10^3/uL; Basophil% 0.6 % (0-1); Eosinophil# 0.14 X10^3/uL; Hematocrit 45.4 % (40-54); Hemoglobin 15.7 g/dL (13.0-16.5); Lymphocyte # 2.17 X10^3/ul (0.83-4.51); Lymphocyte % 46.6 % (19-41); Mean Corp Hgb Conc 34.6 g/dL (32-36); Mean Corpuscular Hgb 31.3 pg (27.0-32.0); Mean Corpuscular Volume 90.6 fL (80-94); Mean Platelet Vol. 9.4 fl (6.2-12.0); Monocyte# 0.39 X10^3/uL; Monocyte% 8.4 % (0-10); NRBC Flagged by Analyzer 0 % (0-5); Neutrophil % 40.8 % (47-70); Platelet Count 284 K/mm3 (150-450); RBC Distribution Width SD 39.8 fl (35.1-43.9); Red Blood Count 5.01 M/mm3 (4.6-6.2); White Blood Count 4.7 K/mm3 (4.4-11.0)
[2021-09-08 22:49] LABS: Alcohol, Blood (Medical)-Serum < 3.0 mg/dL
[2021-09-08 23:02] VITALS: PULSE 101; RESP 26; O2SAT 98
[2021-09-08 23:03] LABS: AST(SGOT) 71 U/L (15-37); Alanine Aminotransfer ALT/SGPT 107 U/L (16-61); Albumin, Serum 3.6 g/dL (3.2-5.0); Alkaline Phosphatase 181 U/L (45-117); Anion Gap 14 (5-15); BUN 15 mg/dL (7-18); BUN/Creat Ratio 12.6 RATIO (10-20); Calcium,Total 9.1 mg/dL (8.5-10.1); Chloride 98 mmol/L (98-107); Creatinine, Serum 1.19 mg/dL (0.70-1.30); EST Glomerular Filtration Rate 81 mL/min (>60); Est Glom Filt Rate - Afr Amer 98 mL/min (>60); Estimated Creatinine Clearance 82.46 ml/min; Globulin 3.5 g/dL (2.2-4.2); Glucose 573 mg/dL (74-106); Potassium 3.8 mmol/L (3.5-5.1); Protein, Total 7.1 g/dL (6.4-8.2); Sodium Level 131 mmol/L (136-145)
--- NOTE | 2021-09-08 23:29 | ED.RN ---
PER DR. RIVAS, HOLD BGT FOR 90 MIN.
[2021-09-09] VITALS (12 sets, daily range): BP systolic 99–125; BP diastolic 77–90; PULSE 83–99; RESP 14–22; TEMP 36.1–36.4; O2SAT 97–99
[2021-09-09 00:21] LABS: Amphetamine Urine VISTA NEGATIVE (<1000 ng/mL); Barbiturate Urine VISTA NEGATIVE (< 200 ng/mL); Benzodiazepine Urine VISTA NEGATIVE (< 200 ng/mL); Cocaine Urine VISTA NEGATIVE (< 300 ng/mL); Ecstacy Urine VISTA NEGATIVE (< 500 ng/mL); Methadone Urine VISTA NEGATIVE (< 300 ng/mL); PCP Urine VISTA NEGATIVE (< 25 ng/mL); THC Urine VISTA NEGATIVE (< 50 ng/mL); Vista UDS pH Range 5
[2021-09-09 00:51] LABS: Bedside Glucose 217 mg/dL (70-110)
[2021-09-09 02:01] LABS: Bedside Glucose 151 mg/dL (70-110)
[2021-09-09 03:36] LABS: Bedside Glucose 75 mg/dL (70-110)
[2021-09-09 07:20] LABS: Bedside Glucose 82 mg/dL (70-110)
--- NOTE | 2021-09-09 08:38 | EKG12_ITS ---
Test Reason : MENTAL HEALTH Blood Pressure : / mmHG Vent. Rate : 074 BPM Atrial Rate : 074 BPM P-R Int : 126 ms QRS Dur : 092 ms QT Int : 384 ms P-R-T Axes : 045 025 028 degrees QTc Int : 426 ms Normal sinus rhythm Nonspecific T wave abnormality Abnormal ECG Confirmed by RONALD OLMEDO, JONATHAN ([id number]), film editor GWEN FRANKLIN ([id number]) on 09/13/2021 11:13:38 AM Referred By: NANCY Confirmed By:JONATHAN CARDENAS MD
[2021-09-09 11:06] LABS: Bedside Glucose 132 mg/dL (70-110)
--- NOTE | 2021-09-09 12:47 | CM.ED ---
Marta from [facility] called. She inquired as to if the [facility] covid and ekg were faxed. Roxana, insulation power unit tender, had faxed covid and ekg. YOSEF called [facility]. They reported that they did not have the covid screen but had the EKG. YOSEF requested that the covid screen be refaxed. Roxana refaxed the covid screen. YOSEF called [facility] again and she said that the screen does not have the name on it so she didn't know who it was for. YOSEF had Roxana refax the covid screen to [facility]. Marta from [facility] was updated. Plan: [facility] when all the paperwork is completed. Arlyn ECHOLS
--- NOTE | 2021-09-09 13:10 | CM.ED ---
[facility] called. Patient accepted byrosy Wade to [facility]. RN TO RN [phone].Patient is going to adult unit. YOSEF confirmed with Rosalie from [facility] that patient is going to Adult Unit. Plan: [facility]
== END 2021-09-09 14:01 ==
PROVIDERS: Emergency Provider Emergency Medicine; PCP Family Medicine; Visit Provider Emergency Medicine
DX: R45.851 Suicidal ideations (principal); F31.9 Bipolar disorder, unspecified; E10.9 Type 1 diabetes mellitus without complications; F41.9 Anxiety disorder, unspecified
CPT/HCPCS: 80053; 80307; 82009; 82077; 82962; 85025; 87426; 93005; 99285

== ENCOUNTER 2021-10-04 11:22 | Outpatient (RCR) | payer MEDICAID, SELFPAY ==
--- NOTE | 2021-10-04 09:00 | BH.SGPN.GN ---
Behaviors/Verbalizations/Mental Status: []Pt alert and oriented, casually dressed and groomed. Eye contact fair, motor activity appropriate, speech within normal limits. Affect, flat. Mood, anxious and depressed. Thoughts linear, logical, no signs of hallucinations or delusions. Pt completed the CSSR-S this morning, denies active SI. client Response/Progress/Benefit: P[]Pt's first day of IOP tx, attentive and listening to peers. Group provided encouragement and advice for pt and another new group member which pt appeared to benefit from. Pt appeared anxious and was quiet during session, declining to share during check-in. Pt appeared to benefit from connecting with peers, normalizing anxiety on his first day, and learning more about process group. Pt will continue IOP tx to prevent decompensation, maintain safety, and reduce SI. Narrative Note: []
--- NOTE | 2021-10-04 10:10 | BH.SGPN.GN ---
Behaviors/Verbalizations/Mental Status: [] Eye contact is good. Motor activity is appropriate. Appearance is casual. Speech is Appropriate. Mood is anxious. Affect is congruent. Thoughts are linear and logical. No evidence of psychosis. Client Response/Progress/Benefit: [] Pt participated at times during group discussion. Active participant in group activity. Attentive during psychoeducation on social stigma vs self-stigma. Pt provided occasional insight during interactive discussion on the question of What impacts how we define and view ourselves? Pt along with peers were able to identify several aspects that impact how we view ourselves which include; society, past experiences, upbringing, guilt over past actions, shame, what we tell ourselves, actions, and our roles (i.e. mother, father, unemployed, crazy). Pt also participated in identifying examples of social stigma for mental health illness which included too sensitive, looking for attention, overly emotional, psycho, crazy, just an excuse, not working hard enough, lazy, mental health is not real, just a pessimist, and mental health can just be turned off. Benefited from increased awareness of how mental health stigma can impact individuals and treatment. Plan is to continue in IOP to maintain safety, prevent decompensation/ re-admission to psych unit, and increase health coping skills. Narrative Note: []
--- NOTE | 2021-10-04 11:10 | BH.SGPN.GN ---
Behaviors/Verbalizations/Mental Status: []Client alert and oriented, casually dressed and groomed. Eye contact good. Motor activity appropriate. Speech within normal limits. Affect congruent, mood anxious and depressed. Thoughts linear, logical, no signs of hallucinations or delusions. Client Response/Progress/Benefit: []Client engaged participant AEB client participating in the activity, providing some input during small group discussion, and listening attentively to others. Client appeared to connect with discussion about what stigma has kept him from doing. Group brainstormed strategies to combat social and perceived stigma. Client shared one thing he can personally do to combat stigma is to talk to someone he trusts about mental health. Appeared to benefit from increasing awareness of strategies to combat stigma. Will continue IOP tx to improve daily functioning, increase healthy coping and prevent decompensation.
--- NOTE | 2021-10-04 14:00 | BH.COMM_ITS ---
Communication Note - Communication with Client Communication Note: Pt completed initial paperwork. Pt was admitted to [facility] from 09/25/21-10/03/21 due to suicidal ideations. Completed [place] Suicide screening with no imminent risk identified. Case discussed with Dr. Mata AT 9AM with plan to admit to [facility] with dx of F31.4.
--- NOTE | 2021-10-04 14:00 | BH.COMM ---
Communication Note - Communication with Client Communication Note: Pt completed initial paperwork. Pt was admitted to [facility] from 09/25/21-10/03/21 due to suicidal ideations. Completed [place] Suicide screening with no imminent risk identified. Case discussed with Dr. Mata AT 9AM with plan to admit to [facility] with dx of F31.4.
--- NOTE | 2021-10-05 13:00 | BH.COMM_ITS ---
Communication Note - Communication with Client Communication Note: Staff reached out to patient regarding attending IOP t omorrow as he is scheduled to meet with psychiatrist for initial evaluation. Pt reported that he plans to attend tomorrow as he does not have to work.
--- NOTE | 2021-10-07 11:10 | BH.SGPN.GN ---
Behaviors/Verbalizations/Mental Status: [] Eye contact is good. Motor activity is appropriate. Appearance is disheveled. Speech is Appropriate. Mood is depressed. Affect is flat. Thoughts are linear and logical. No evidence of psychosis. Client Response/Progress/Benefit: [] Pt was an active participant in group discussion. Attentive during psychoeducation. Active participant in group experiential activity. Able to reflect on group activity and relate it to group topic of stress. Pt along with peers had an interactive discussion in which they identified certain skills they had to utilize to manage stress during activity which included ; communication, asking for help, trying new and different techniques, utilize acceptance (i.e. not as easy as I thought), and thought reframing (i.e. doesn't have to work on first try). Provided insight and examples during psychoeducation on the 4 A's of Stress (Avoid, Alter, Adapt, ad Accept). Pt chose to practice ' Adapt' by adapting to different ways to manage my stress. Benefited from increased education and awareness of strategies to manage stress. Also practiced in the moment stress management during group activity. Will continue in IOP to maintain safety, prevent decompensation, and increase healthy coping. Narrative Note: []
--- NOTE | 2021-10-07 16:01 | BH.MDN ---
Multi-Disciplinary Note - Note 45-min Individual Time Started:: 10:30 Date: 10/07/21 Purpose of session/treatment goals addressed:: The purpose of this session was to gather information on client's current stressors, symptoms, and treatment goals. Another goal was to build rapport and assess risk. Eye Contact:: Good Motor Activity:: Appropriate Appearance:: Casual Speech:: Appropriate Mood:: Euthymic Affect:: Congruent Thoughts:: Linear, Logical, No evidence of hallucinations/delusions noted Staff Interventions:: rapport building, strengths perspective, treatment planning, completed risk assessment / safety planning Client Response:: Pt responded well to session, open to meeting with therapist. Pt reports his first week is going well and he is enjoying group. Pt shared he had a rough morning, but he is doing better to reframe his perspective and focus on the positives. Pt has been working with Sj Melvin at [facility] and he finds benefit in this. Pt reports they have made multiple safety plans and pt does his best to follow them. However, pt admits that he has a history of impulsively taking his insulin when triggered. Discussed triggered which included any verbal conflict and certain topics of discussion. Pt receptive to discussion of reducing access to lethal means and he stated he has moved his insulin from his bedroom to the bathroom to provide a delay for pt. Pt shared if he can ride out his emotions, the urge to hurt himself fades. Pt is future oriented and he was talking about his plans for the future and work. Pt lives with his grandmother and sister, but pt reports limited support from his family. Pt identified two best friends and a girlfriend that are supports for pt, but pt shared they do not fully understand mental health. Reviewed warning signs for pt to pay attention to for depression and SI and discussed additional coping skills pt can use such as delay, distract, decide, thought challenging, video games, walking, and music. Risks/Concerns:: Pt denies any active suicidal ideations, plan, or intent today. Pt reports ability to maintain safety. Pt has two safety plans, one printed and one on his phone. Pt has a history of impulsively overdosing on his insulin when triggered by arguments and yelling. This therapist talked with IOP nurse about strategies to reduce access for a needed medication. Long discussion of reducing access to lethal means by locking up unopened insulin, asking for friends to keep extra insulin, and keeping his safety plan on top of his opened insulin. Pt agreeable to keeping safety plan with insulin and was receptive to looking into buying a lock-box for the fridge to keep unopened insulin. Pt is not suicidal today and was future oriented. Pt does not want his grandmother to be called to ask for help with safety plan. Progress Toward Goals/Plan:: Pt's first week in IOP tx and reports enjoying the group environment. Pt identified his tx goals as challenging his perspective, learning more positive psychology, managing depression, and preventing future hospitalizations. Pt currently endorses a depressed mood, lack of energy, isolation, passive fleeting suicidal ideations, and negative thinking patterns. Pt is established with outpatient counseling, but will need psychiatry before discharging from IOP. Will continue IOP tx to prevent decompensation, improve overall functioning, and reduce SI. Time Stopped:: 11:15
--- NOTE | 2021-10-07 16:05 | BH.MTP_ITS ---
[facility] Treatment Plan - Patient Information Program Physician:: Dr. Akosua Murry Primary Therapist:: Tanna MARTÍNEZ - Psychiatric Diagnoses Psychiatric Diagnoses:: Bipolar, NOS; PTSD; Strong cluster B traits Diagnosis Code(s):: F31.4 - Estimated LOS Estimated LOS (in weeks):: 6 Problem/Goal #1 - Problem/Goal #1 Stated Goal:: Pt will decrease depressive symptoms, isolation, negative self- talk, SI, and hopelessness due to Bipolar NOS. Description of Barriers: Pt reports limited social and family support which reinforces negative self-talk and depression. Pt reports his family does not want to help pt manage his diabetes which is a barrier to reducing access to lethal means. Pt also reports his suicide attempts in the past have been impulsive. Pt has a long-standing history of unmanaged diabetes which has led to additional health problems. Pt has a significant trauma history and high ABDIEL score. Functional Impact: Pt is a 20-year-old male with a history of bipolar NOS, depression, anxiety, and PTSD. Pt was referred to [facility] by his outpatient counselor at [facility] due to worsening depression, anxiety, and a recent hospitalization due to suicide attempt. Pt has numerous hospitalizations and suicide attempts in his lifetime by overdose on insulin and other methods. Pt currently endorses a depressed mood, loss of motivation, poor concentration, apathy, anhedonia, hopelessness, worthlessness, crying spells, isolation, mood swings, and irritability. Pt denies any active SI, but admits to chronic SI that is fleeting and passive. Pt reports his symptoms are interfering with his functioning at work, home, and in his relationships. Goal Relevant Strengths/Supports: Pt is established with outpatient counseling and psychiatry. Pt reports wanting to get better and learn how to manage his symptoms. - Objectives Objective #1 Stated Objective: Pt will learn and utilize 2-3 healthy coping strategies to better manage depressive symptoms as shown by preventing decompensation or decreasing DSM-5 scores for depression. Interventions: Through group and individual sessions, therapist will help pt identify triggers and warning signs of depression and emotional dysregulation including emotional, physical, and behavioral changes. Therapist will teach pt various coping skills to manage symptoms and give client tangible resources to use to regulate emotions. Therapist will use cognitive restructuring techniques and help pt gain awareness of negative thoughts that reinforce guilt and depression. Therapist will provide psychoeducation on maintenance cycles and help client learn ways to break unhealthy maintenance cycles. Therapist will help pt incorporate behavioral activation and assist pt in setting SMART goals. Discharge Criteria: Pt will have met this goal when can report learning and using at least 2 coping skills to manage depressive symptoms. Additionally, pt will have met this goal when depressive symptoms have reduced on the DSM-5 scale or pt has preventing decompensation. Target Date: 11/15/21 Review Date: 10/25/21 Status: open Objective #2 Stated Objective: Pt will identify at least 2-3 negative self-talk messages used to reinforce negative core beliefs and replace thoughts with positive, realistic messages. Interventions: Therapist will help pt identify distorted, negative beliefs about self and replace with more realistic, affirmative messages. Therapist will use CBT to help pt increase insight to the connection between thoughts, emotions, and behaviors. Therapist will also use dialectical thinking to help pt combat all or nothing expectations and fear of failure. Therapist will encourage client to practice thought challenging. Discharge Criteria: Pt will have achieved this goal when can verbalize at least 2 negative self-talk messages and effectively replace those thoughts with affirmative messages. Target Date: 11/15/21 Review Date: 10/25/21 Status: open Problem/Goal #2 - Problem/Goal #2 Stated Goal:: Client will decrease ruminating thoughts, avoidance, and flashbacks caused by anxiety. Description of Barriers: Pt reports limited social and family support which reinforces negative self-talk and depression. Pt reports his family does not want to help pt manage his diabetes which is a barrier to reducing access to lethal means. Pt also reports his suicide attempts in the past have been impulsive. Pt has a long-standing history of unmanaged diabetes which has led to additional health problems. Pt has a significant trauma history and high ABDIEL score. Functional Impact: Pt is a 20-year-old male with a history of bipolar NOS, depression, anxiety, and PTSD. Pt was referred to [facility] by his outpatient counselor at [facility] due to worsening depression, anxiety, and a recent hospitalization due to suicide attempt. Pt has numerous hospitalizations and suicide attempts in his lifetime by overdose on insulin and other methods. Pt currently endorses a depressed mood, loss of motivation, poor concentration, apathy, anhedonia, hopelessness, worthlessness, crying spells, isolation, mood swings, and irritability. Pt denies any active SI, but admits to chronic SI that is fleeting and passive. Pt reports his symptoms are interfering with his functioning at work, home, and in his relationships. Goal Relevant Strengths/Supports: Pt is established with outpatient counseling and psychiatry. Pt reports wanting to get better and learn how to manage his symptoms. - Objectives Objective #1 Stated Objective: Pt will identify 2-3 anxiety triggers and 2 coping skills to use when feeling anxious to manage anxiety as shown by decreasing DSM-5 scores for anxiety. Interventions: Therapist will provide education on anxiety, avoidance behaviors, and maintenance cycles. Therapist will help pt explore personal symptoms and warning signs of anxiety. Therapist will teach pt coping skills to improve emotional regulation, mindfulness, and distress tolerance to help pt cope with anxiety in the moment. Discharge Criteria: Pt will have accomplished this goal when can identify at least 2 triggers and report using 2 coping skills to manage anxiety. Additionally, pt will have accomplished this goal when DSM-5 scores show a reduction. Target Date: 11/15/21 Review Date: 10/25/21 Status: open Objective #2 Stated Objective: Pt will increase ability to manage stressors and anxiety by g aining 2-3 distress tolerance skills. Interventions: Through group and individual therapy, pt will learn various coping skills to help manage stress and anxiety. Therapist will utilize DBT distress tolerance skills to increase awareness and give pt tools to more effectively manage anxiety. Therapist will provide psychoeducation on emotional regulation and help pt identify unhealthy coping skills he wants to change. Discharge Criteria: Pt will have accomplished this goal when can report improved ability to manage stressors and identify at least 2 distress tolerance skills. Target Date: 11/15/21 Review Date: 10/25/21 Status: open
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
--- NOTE | 2021-10-08 10:15 | BH.SGPN.GN ---
Behaviors/Verbalizations/Mental Status: []Client alert and oriented, casually dressed and groomed. Eye contact good. Motor activity appropriate. Speech within normal limits. Affect constricted, mood dysthymic. Thoughts linear, logical, no signs of hallucinations or delusions. Client Response/Progress/Benefit: []Pt was an active participant in activity and taking notes during group discussion. Attentive during psychoeducation on coping skills, why people use unhealthy coping skills, and how to replace unhealthy coping skills. Benefited from increased understanding of unhealthy coping skills and the need for developing healthy interna and external coping skills. Pt will continue IOP tx to prevent decompensation, maintain safety, increase management of diabetes, and improve daily functioning. Narrative Note: []
--- NOTE | 2021-10-08 11:15 | BH.SGPN.GN ---
Behaviors/Verbalizations/Mental Status: []Client alert and oriented, casually dressed and groomed. Eye contact fair to good. Motor activity appropriate. Speech within normal limits. Affect congruent, mood anxious and depressed. Thoughts linear, logical, no signs of hallucinations or delusions. Client Response/Progress/Benefit: [] Client second day in IOP tx and still adjusting to group environment; however, responded well to session AEB taking notes and providing input and examples throughout. Group discussed the different categories of coping skills which included distraction, emotional release, grounding, self-love, and thought challenging. Client created a coping skill menu identifying various skills he could try in each category. Client?s coping skill menu included: cuong for distraction, bath/shower, deep breathing, setting boundaries, and the T.H.I.N.K acronym. Appeared to benefit from increasing repertoire of healthy coping skills. Will continue tx to further promote mood stability, improve distress tolerance skill application, maintain safety, and prevent decompensation. Narrative Note: []
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
--- NOTE | 2021-10-11 09:00 | BH.SGPN.GN ---
Behaviors/Verbalizations/Mental Status: [] Eye contact is good. Motor activity is appropriate. Appearance is casual. Speech is Appropriate. Mood is dysthymic. Affect is constricted. Thoughts are linear and logical. No evidence of psychosis. Reviewed daily check in sheet and no reports of suicidal ideations or intent. Client Response/Progress/Benefit: [] Pt was an active participant in group discussion. Attentive. Pt reported it was a stressful weekend because his niece had to get emergency surgery on her arm due to an injury at a jump place. Pt reported he missed his job interview because wanted to go with his sister to the hospital to be supportive. Pt reported he has been getting much sleep because his niece has been crying a lot due to pain. Struggled with identifying mental health positives. With help pt was able to identify coming to [facility] as a mental health win and being supportive to his niece and sister. Progress could be hindered by pt's lack of sleep. Benefited from group support, feedback, and encouragement. Will continue in IOP to continue use of healthy skills, challenge distorted thoughts and prevent decompensation.
--- NOTE | 2021-10-11 10:05 | BH.SGPN.GN ---
Behaviors/Verbalizations/Mental Status: []Client alert and oriented, casually dressed and groomed. Eye contact good. Motor activity appropriate. Speech within normal limits. Affect congruent, mood euthymic. Thoughts linear, logical, no signs of hallucinations or delusions. Client Response/Progress/Benefit: []Client responded well to session, sharing and listening attentively to others. Client participated in experiential activity illustrating resilience, providing insight during group processing. Client was engaged throughout group discussion defining resilience and where it comes from. Clinician provided psychoeducation on the road to resilience, and introduced how making connections with others can help build resilience. Client was attentive as group members shared examples of the benefits of making connections, nodding and taking notes throughout. Will continue IOP treatment to increase application of healthy coping skills and self-care to improve daily functioning. Narrative Note: []
--- NOTE | 2021-10-11 11:15 | BH.SGPN.GN ---
Behaviors/Verbalizations/Mental Status: []Client alert and oriented, casually dressed and groomed. Eye contact fair to good. Motor activity appropriate. Speech within normal limits. Affect congruent, mood anxious and depressed. Thoughts linear, logical, no signs of hallucinations or delusions Client Response/Progress/Benefit: []Client responded well to session AEB listening and contributing to group discussion, as well as taking notes throughout. Client participated in small group discussion of how each resiliency component can help increase personal resiliency. Worked cooperatively with group to identify strategies to enhance each of the components discussed. Client identified doing well with the resilience component of ?take care of yourself?. Went on to reflect wanting to improve in the personal resilience component of ?self-awareness?. Client stated he wants to work on this by slowing down and observing what is actually happening and how it?s impacting him. Client seemed to benefit from discussing strategies for improving personal resilience. Will continue IOP tx to promote application of distress tolerance skills, consistent application of healthy coping skills, and prevent decompensation. Narrative Note: []
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
--- NOTE | 2021-10-13 09:00 | BH.SGPN.GN ---
Behaviors/Verbalizations/Mental Status: []Eye contact is good. Motor activity is appropriate. Appearance is casual. Speech is appropriate. Mood is euthymic. Affect is congruent. Thoughts are linear and logical. No evidence of psychosis. Reviewed daily symptom tracker sheet with no reports of suicidal ideations, plan, or intent. Client Response/Progress/Benefit: []Client was engaged throughout group session, sharing and listening attentively to others. Client reported his emotion as ?grateful?. Client reported sleeping more than he has in a while, which is a win. Client discussed that his niece is recovering well from her surgery, but that he is worried about her using her arm. Client declined to share any wins or stressors regarding his personal feelings or mental health, which may impede progress. Appeared to benefit from supportive group environment. Will continue IOP treatment to prevent decompensation and improve application of healthy coping skills to increase daily functioning. Narrative Note: []
[2021-10-13 09:32] VITALS: BP 121/73; PULSE 102
--- NOTE | 2021-10-13 10:10 | BH.SGPN.GN ---
Behaviors/Verbalizations/Mental Status: []Client alert and oriented, casually dressed and groomed. Eye contact good. Motor activity appropriate. Speech within normal limits. Affect constricted, mood euthymic. Thoughts linear, logical, no signs of hallucinations or delusions. Client Response/Progress/Benefit: []Client engaged during session AEB taking notes and completing worksheet. Connected with discussion on crisis and how coping with external crises by using unhealthy coping skills could result in a personal crisis. Group reflected on the importance of having awareness of personal warning signs to prevent reaching crisis point. Group identified potential warning signs for crisis and client completed the personal warning signs worksheet. Client identified personal crisis warning signs to include: erratic sleep, isolation, and lack of motivation. Client benefited by increasing awareness of what leads to crisis and personal warning signs. Client will continue IOP tx to prevent decompensation, increase distress tolerance skills, and maintain safety. Narrative Note: []
--- NOTE | 2021-10-13 11:10 | BH.SGPN.GN ---
Behaviors/Verbalizations/Mental Status: []Client alert and oriented, casually dressed and groomed. Eye contact fair. Motor activity appropriate. Speech within normal limits. Affect constricted, mood euthymic. Thoughts linear, logical, no signs of hallucinations or delusions. Client Response/Progress/Benefit: []Client responded well to session as evidenced by client listening attentively to others and providing strategies during small group discussion. Connected as fellow participants discussed the importance of identifying and addressing personal warning signs. Client identified warning signs for crisis and gained further awareness of earliest warning signs. Client created a crisis action plan to help client better manage warning signs for crisis. Client?s action plan for low motivation includes: engage in hobby, reach out to a support person, and make list of small daily goals. Client appeared to benefit from creating a crisis action plan and increasing self-awareness. Client to continue IOP tx to challenge distorted thoughts, increase consistent use of healthy coping skills and prevent decompensation.
--- NOTE | 2021-10-13 14:14 | BH.MDN_ITS ---
Multi-Disciplinary Note - Note 30-min Individual Time Started:: 12:10 Date: 10/13/21 Purpose of session/treatment goals addressed:: To address current stressors, symptoms, and use of coping skills. Another goal was to set goals for self-care, review positive self-talk, and give pt homework to look over the cognitive distortions. Eye Contact:: Good Motor Activity:: Appropriate Appearance:: Neat Mood:: Euthymic Affect:: Full Thoughts:: Linear, Logical, No evidence of hallucinations/delusions noted Staff Interventions:: CBT techniques, strengths perspective, other - gave pt homework to review cognitive distortions Client Response:: Pt responded well to session, open to meeting with therapist. Pt reports feeling positive today which is making it easier for pt to focus on the positive. Highlighted this mental health win and discussed how pt can ma intain this outlook. Pt reports using positive self-talk more and reports group has been benefiting him so far. Pt is still frustrated with his employer, but pt is trying to find a new job rather than dwell on this stressor. Pt is also planning to attend the [facility] [employer] which pt is looking forward to. Discussed the benefits of setting self-care goals today to promote mood stability. Pt plans to go for a walk, take a nap, and go to the store. Also encouraged pt to review the cognitive distortions so pt can begin to work on combatting negative thinking using thought logs in upcoming sessions. Risks/Concerns:: Pt is in a positive mood today and reports no SI, plan, or intent. Pt is future oriented and reports IOP has been helping him even after only two weeks. No HI. Reports on daily symptom tracker he is taking his medications as prescribed. Progress Toward Goals/Plan:: Pt is responding well to treatment AEB his self- report of benefitting from the program and his consistent attendance. Pt reports being in a positive mood today which pt contributes to use of positive thinking and focusing on what is to come. Pt continues to struggle with consistent mood stability as pt's mood and suicidal ideations are variable based on the day/external stressors. Pt also endorses depressive symptoms, ruminations, lack of motivation, lack of energy, and negative thinking patterns. Pt is working on finding a new job and focusing on what is in his control. Pt will continue IOP tx to prevent decompensation, increase the use of healthy coping skills, and maintain safety. Time Stopped:: 12:26
== END 2021-10-14 23:59 | disposition home or self-care (01) ==
LOC: BHIOP 11:22
PROVIDERS: PCP Family Medicine; Referring Provider Psychiatry & Neurology Psychiatry; Visit Provider Psychiatry & Neurology Psychiatry
DX: F31.4 Bipolar disorder, current episode depressed, severe, without psychotic features (principal)
CPT/HCPCS: H2012; H2020; S9480; T1002; 90832; 90834

== ENCOUNTER 2021-10-15 07:07 | Outpatient (RCR) | payer MEDICAID, SELFPAY ==
--- NOTE | 2021-10-07 09:05 | BH.SGPN.GN ---
Behaviors/Verbalizations/Mental Status: []Eye contact is good. Motor activity is appropriate. Appearance is casual with hygiene tended to. Speech is appropriate. Mood is anxious, dysthymic. Affect is congruent. Thoughts are linear and logical. No evidence of psychosis. Reviewed daily check in sheet and pt reports mild suicidal ideations, denies plan, or intent as of this date, 10/07/21. This is consistent with pt baseine. Reports ability to maintain safety at this time. Client Response/Progress/Benefit: [] Pt receptive of session, engaged throughout and providing supportive feedback and input to group. Reports current emotion as ?relieved? and shared mental health wins of trying to ?look at the the positives? and ?focus on what?s in my control?. Discussed additionally feeling less stressed about work now that he is getting a doctor?s note for the time he had spent in the hospital. Shared feeling less concerned about losing his job as a result. Appeared to benefit from reflecting on wins and supportive group environment. Pt will continue IOP tx to maintain safety, encourage healthy coping behaviors, and prevent decompensation. Narrative Note: []
[2021-10-15 00:53] VITALS: BP 121/73; PULSE 102
--- NOTE | 2021-10-15 10:10 | BH.SGPN.GN ---
Behaviors/Verbalizations/Mental Status: [] Eye contact is fair. Motor activity is appropriate. Appearance is casual. Speech is Appropriate. Mood is dysthymic. Affect is constricted. Thoughts are linear and logical. No evidence of psychosis. Client Response/Progress/Benefit: [] Pt was an active participant in group discussions. Attentive during psycho-education on 4 types of conflict styles (Competing, Collaborating, Avoiding, and Accommodating). Worked with group to define conflict and identify how conflict is helpful. With peers identified barriers to addressing or managing conflict which included: fear of upsetting others, embarrassing self, abandonment, past negative experiences with conflict, and shutting down. Pt reported he is most often uses accommodating and avoiding conflict styles. Pt stated he will say you're right, I'm wrong to end a conflict. Recognizes using these styles of communication increases his negative thinking and isolation. Benefited from group due to increase insight and awareness of conflict, conflict styles, and obstacles to managing conflict. Pt to continue IOP to increase healthy coping, challenge negative thinking and prevent decompensation.
--- NOTE | 2021-10-15 11:10 | BH.SGPN.GN ---
Behaviors/Verbalizations/Mental Status: []Client alert and oriented, casually dressed and groomed. Eye contact good. Motor activity appropriate. Speech within normal limits. Affect congruent, mood euthymic. Thoughts linear, logical, no signs of hallucinations or delusions. Client Response/Progress/Benefit: []Client engaged in session AEB contributing to discussion and engaging in activity. Client did well to review current conflict style and its impact on mental health. Attentive and taking notes during discussion on strategies for more effectively managing conflict in personal life. Client participated in activity and did well to be assertive and collaborating. Client wants to work on not yelling and taking a time out when things get heated to improve conflict resolution. Appeared to benefit from gaining strategies to help client better manage conflict. Will continue IOP tx to increase distress tolerance skills, reduce suicidal ideations, and increase self-care and diabetes management. Narrative Note: []
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
--- NOTE | 2021-10-15 13:19 | BH.DR.ITP ---
Initial Treatment Plan Patient Information Visit Information: ADMISSION DATE: EXPECTED LOS: 4-6 weeks Problems/Symptoms Problem #1:: Mood instability Symptom:: Depression, irritability, hopelessness, worthlessness, biological disruption of sleep, low energy, decreased concentration, passive thoughts of , suicidal ideation with plan to overdose Problem #2:: Anxiety Symptom:: Worry, reexperiencing, avoidance, flashbacks
--- NOTE | 2021-10-18 10:58 | BH.COMM ---
Communication Note - Communication with Client Communication Note: Pt did not show for group. Therapist called and pt returned the call sharing he is sick with the stomach bug. Pt hopes to be in tomorrow. Pt reports mentally I'm pretty good.
--- NOTE | 2021-10-19 09:02 | BH.SGPN.GN ---
Behaviors/Verbalizations/Mental Status: []Eye contact is fair to good. Motor activity is appropriate. Appearance is casual. Speech is Appropriate. Mood is depressed and anxious. Affect is constricted. Thoughts are linear and logical. No evidence of psychosis. Reviewed daily check in sheet and pt reports of suicidal ideations as 2nd intent as 07/21, which is consistent with pt reported baseline. Pt receptive of meeting with individual therapist for further assessment of risk and safety planning. Client Response/Progress/Benefit: []Pt was a semi-active participant in group discussion, though at times appeared distracted by own thoughts. Provided appropriate feedback when prompted. Emotion for today is ?drained?. Shared with the group that he has been sick the past few days which has disrupted his sleep and left him feeling more physically exhausted. Went on to discuss a recent frustration with his grandmother moving things in his room without asking. Vented that this has been an ongoing frustration. Pt noted trying to set boundaries with limited success. Struggled to identify skills he could use to practice self-care and improve his mood today. Receptive of and appearing to benefit from group support, encouragement, and coping suggestions, however. Limited progress since last session. Will continue in IOP to prevent decompensation, continue to stabilize mood, and increase application of healthy coping skills. Narrative Note: []
--- NOTE | 2021-10-19 10:00 | BH.SGPN.GN ---
Behaviors/Verbalizations/Mental Status: []Pt alert and oriented, casually dressed and groomed. Eye contact good. Motor activity appropriate. Speech within normal limits. Affect constricted, mood irritable. Thoughts linear, logical, no signs of hallucinations or delusions. Client Response/Progress/Benefit: []Pt responded well to session, attentive and participating in activity. Pt contributing during the discussion of what fear of failure means and what contributes to the development of fear of failure. Group shared that the fear of failure can lead to isolation, self-sabotage, pushing people away, self-doubt, avoidance, and not trying. Pt made connections during the activity of how when pt gets frustrated and impatient, pt wants to quit, but pt kept trying. Pt appeared to benefit from gaining awareness of the impact fear of failure can have on one?s mental health and wellbeing. Will continue IOP tx to prevent decompensation, improve emotional regulation skills, and improve daily functioning. Narrative Note: []
--- NOTE | 2021-10-19 11:10 | BH.SGPN.GN ---
Behaviors/Verbalizations/Mental Status: []Pt alert and oriented, casually dressed and groomed. Eye contact good. Motor activity appropriate. Speech within normal limits. Affect congruent-laughing, mood euthymic. Thoughts linear, logical, no signs of hallucinations or delusions. Client Response/Progress/Benefit: []Pt responded well to session, engaged in the experiential activity and attentive throughout group processing. Pt reported fear of failure has kept pt from socializing and fully living. Pt completed fear of failure worksheet and was able to identify thoughts and behaviors that reinforce personal fear of failure including toxic people and being afraid to fully express himself. Pt participated in small group discussion regarding strategies to overcome fear of failure. Identified wanting to work on challenging fear of failing by using thought challenging techniques. Appeared to benefit from increased knowledge of strategies to combat fear of failure and gaining self-awareness. Pt will continue IOP tx to prevent decompensation, reduce SI, and improve distress tolerance skills. Narrative Note: []
--- NOTE | 2021-10-19 13:43 | BH.MDN_ITS ---
Multi-Disciplinary Note - Note 60-min Individual Time Started:: 12:00 Date: 10/19/21 Purpose of session/treatment goals addressed:: To address current symptoms and assess risk/contact support. Another goal was to work on goal #1 of pt's tx plan. Eye Contact:: Good Motor Activity:: Slowed Appearance:: Casual Speech:: Soft Mood:: Depressed Affect:: Constricted Thoughts:: Other - ruminations, No evidence of hallucinations/delusions noted Staff Interventions:: thought challenging, motivational interviewing, CBT techniques, strengths perspective, completed risk assessment / safety planning, other - Spoke with grandma and called [facility] to schedule an appointment. Client Response:: Pt responded well to session, open to meeting with therapist. Pt shared he had a good morning yesterday when he spoke with therapist, but then things spiraled down. Pt stated he has been dealing with a stomach bug, he and his girlfriend got into a fight, and he continues to have work issues. Pt has insight that external stressors trigger suicidal ideations and negative perspective on treatment. Receptive to thought challenging with therapist and wrote down thought reframes on paper to take home. Also discussed what support pt needs today including his grandma to keep his medications and insulin. Pt identified internal coping skills he can use today such as sitting in the sunroom at home, listening to music, reviewing his notes from group, using positive self-talk, watching something funny, and reminding himself that emotions are temporary. Pt also able to challenge his distorted thought patterns and he shared this was helping him. Also discussed additional supports and called [facility] to schedule an intake for case management. Pt not sure about going to [employer], but receptive to getting back into volunteering. Pt reports his suicidal ideations decreased by the end of session-laughing and smiling. Risks/Concerns:: Pt indicated a 2/5 (5 severe) for thoughts of suicide and 1/5 (5 severe) for risk of suicide today on his daily symptom tracker. This is slightly above pt's baseline. Pt admits that his suicidal ideations are worse today due to pt's physical health suffering, work stress, and recent argument with his girlfriend. Pt admits to having passive SI, but he denies any active SI, plan, or intent. Pt admits to having thoughts of overdosing on his insulin and pt has a history of impulsive suicide attempts. for this reason, therapist will contact pt's grandma to have grandma keep insulin and Gabapentin. Pt is agreeable to this as it will reduce acting on impulse. 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 Pt also wants to come to IOP tx tomorrow which pt added as a day this week. Progress Toward Goals/Plan:: Pt reports struggles more this week with managing his mental health and negative thought patterns. Pt also reports his suicidal ideation are getting worse but pt denied any active SI or intent. Pt receptive during session and responded well to thought challenging. Pt reports when he is at IOP he finds he does better and can challenge his thoughts. Pt continues to struggle with mood instability and thought challenging at home, especially while not working. Pt reported feeling better by the end of session, more positive per his report. Pt will continue IOP tx to prevent decompensation, maintain safety, and increase emotional regulation skills. Time Stopped:: 13:00
--- NOTE | 2021-10-19 13:49 | BH.COMM ---
Communication Note - Communication with Client Communication Note: This therapist spoke with pt's emergency contact, his grandma, to discuss safety plan and reduce access to lethal means. Grandma was agreeable to keep pt's Gabapentin and insulin today. Therapist told grandma that pt has a safety plan and coping skills to use today. Also shared that pt was feeling better by the end of session.
--- NOTE | 2021-10-20 10:51 | BH.COMM ---
Communication Note - Communication with Client Communication Note: pt called to cancel IOP today. He was in the ER last night with DKA.
--- NOTE | 2021-10-21 10:16 | BH.COMM ---
Communication Note - Communication with Client Communication Note: Pt called in this AM and left message cancelling IOP for the rest of the week stating that he was going to be spending time with support (friends). IOP staff called pt's grandmother to follow-up. Per grandmother pt left with friends. No significant distress or concern reported.
--- NOTE | 2021-10-26 09:05 | BH.SGPN.GN ---
Behaviors/Verbalizations/Mental Status: []Pt alert and oriented, casually dressed and groomed. Eye contact good. Motor activity appropriate. Speech within normal limits. Affect flat, mood dysthymic. Thoughts linear, logical, no signs of hallucinations or delusions. Reviewed pt?s symptom tracker, and will follow up to assess risk. Client Response/Progress/Benefit: p[]pt responded well to session and receptive to support from peers. Pt reports feeling stressed this morning and shared that he did not sleep much last night. Pt stated he has been in my head the past few days which is leading to worsening depression. Pt had several wins including making it to group today, spending time with with his best friend over the weekend, and deciding that he wants to move in with this friend. Pt shared this is positive but also stressful and when pt feels stressed, pt's SI increases. Discussed strategies pt can use today to better manage his mood and reduce impulsivity. Pt to also meet with therapist today. Will continue IOP tx as pt continues to struggle with mood instability, distorted thought patterns, and managing stressors. Narrative Note: []
--- NOTE | 2021-10-26 11:12 | BH.SGPN.GN ---
Behaviors/Verbalizations/Mental Status: []Client alert and oriented, casually dressed and groomed. Eye contact fair to good. Motor activity appropriate. Speech within normal limits. Affect congruent, mood dysthymic. Thoughts linear, logical, no signs of hallucinations or delusions. Client alert and oriented, casually dressed and groomed. Eye contact good. Motor activity appropriate. Speech within normal limits. Affect congruent, mood dysthymic. Thoughts linear, logical, no signs of hallucinations or delusions. Pt was an active participant in group discussions and activities. Engaged in activity. Pt identified a SMART goal for the next week is to: take a walk for 10 minutes each day. Pt reported this would benefit him by helping him get out of the house and get more exercise which improves his mood. Identified bad weather, forgetfulness, low motivation as potential barriers to completing this goal. Pt able to identify several solutions, such as, doing the walk indoors, challenging negative thoughts, and asking someone to go with him, that can help overcome identified barriers. Benefited from group by being able to utilize SMART educate to create a goal. Pt to continue IOP to maintain safety, increase emotion regulation and prevent decompensation. Narrative Note: []
--- NOTE | 2021-10-26 14:02 | BH.MDN ---
Multi-Disciplinary Note - Note 45-min Individual Time Started:: 10:25 Date: 10/26/21 Purpose of session/treatment goals addressed:: To address current symptoms, stressors, barriers, and triggers. Another goal was to review coping skills, assess for risk, and set goals for today. Eye Contact:: Fair Motor Activity:: Appropriate Appearance:: Casual Speech:: Soft Mood:: Dysthymic, Other - tired Affect:: Constricted Thoughts:: Linear, Logical, No evidence of hallucinations/delusions noted Staff Interventions:: thought challenging, CBT techniques, reviewed DSM-5, completed risk assessment / safety planning, goal setting, taught coping skills - gave DBT worksheet on emotional regulation skills, other - discussed community resources Client Response:: Pt responded well to session, but admitted he was very tired due to only getting one or so hours of sleep. Pt shared sleep continues to be an issue, but when pt was with his friend he slept well for two nights. Pt reports he tries to go to bed, but he lies awake ruminating. Pt currently stressed about his finances, moving, worsening flashbacks, and his MH symptoms not improving. Assessed for risk (see below) and discussed possible solutions to stressors. Because pt might be moving in with this friend in four weeks, pt reports it would not be a good idea to get a job. However, pt is currently unable to pay for his phone bill and other expenses. Discussed other solutions such as selling old items but pt reports being unsure of these. Pt receptive to therapist calling local agencies to learn more about financial resources. Pt receptive to discussing coping skills for PTSD, depression, and anxiety. Discussed the use of DBT emotional regulation skills to help pt in the moment and to help pt thinking through stressful situations. Pt acknowledged that even though he is excited about moving with a friend, he is still stressed. Pt set a goal to walk today, take a short nap, and talk with a friend. Reviewed healthy sleep hygiene techniques. Pt will attend [facility] tx tomorrow. Risks/Concerns:: Pt indicated a 3/5 (5 severe) for thoughts of suicide and 2/5 (5 severe) for risk of suicide today on his daily symptom tracker. This is slightly above pt's baseline. Pt reports he did not have SI all weekend as pt was with a friend, but now that pt is home he has SI again. Pt denies any active SI, plan, or intent and he describes his suicidal ideations as I just don't care about what happens to my health or me but pt stated he does not have thoughts of actually killing himself. Pt stated his grandma still has his Gabapentin and he is storing is insulin where grandma can monitor it. Pt reports ability to maintain safety today and feels like he can reach out to a support person if he worsens. Pt is future oriented-talking about moving in with a friend and graduating IOP in a few weeks. Pt also wants to come to IOP tx tomorrow. Progress Toward Goals/Plan:: Pt continues to struggle with making consistent progress while in IOP. Pt admits that whenever there are significant stressors in his life, good or bad, pt's brain jumps to suicidal thoughts due to feeling overwhelmed. Pt also missed a few days of group last week. Pt's DSM-5 scores have increased since admission for depression and overall. Pt also reports ongoing sleep issues which impacts pt's mood and thinking patterns as well. Pt has progressed with not being hospitalized for the past month and per the DSM-5 pt's anxiety slightly decreased. Pt did schedule an appointment with [email or web address] [email or web address] for case management services and pt has an appointment next week. Pt would benefit greatly from case management services and discussed diabetes support today. Will continue IOP tx to prevent further decompensation, increase use of healthy coping skills, and maintain safety. Time Stopped:: 11:00
--- NOTE | 2021-10-26 14:04 | BH.TPR ---
Treatment Plan Review Date of Admission:: 10/04/21 Date of Treatment Plan Review:: 10/25/21 Admitting Diagnoses:: Bipolar, NOS F 31.4; PTSD; Strong cluster B traits Current Diagnoses:: Bipolar, NOS F 31.4; PTSD; Strong cluster B traits Patient's Response to Treatment:: Pt is mostly consistent with attendance and he reports benefitting from IOP topics and social interaction. However, pt?s engagement in group and individual sessions appears to be dependent on pt?s blood sugar levels and amount of sleep pt gets. Pt has followed through with some of his tx goals, but pt is currently struggling with utilizing cognitive restructuring skills and distress tolerance. Status of Current Problems and Symptoms: Pt's problems are ongoing and pt continues to report psychosocial stressors that have not resolved. Pt continues to endorse a depressed mood, low of motivation, sleep issues, chronic SI, ruminations, and pervasion negative thought patterns. Pt is not working which is increasing pt's financial stress and the loss of routine is impacting pt's sleep and motivation. Pt also continues to struggle with low distress tolerance and admits that whenever he is overwhelmed, pt becomes suicidal. It has also been observed that when pt is tired or his blood sugar levels are off, pt becomes more suicidal. Pt's DSM-5 scores have increased since admission. Problem #1 Problem Name:: depressive symptoms, isolation, negative self-talk, SI, and hopelessness Status of Goals:: Objective 1- in progress. Pt's scores for depression increased by one point since admission and thoughts of hurting himself increased by a point as well. Pt has learned about his warning signs and triggers for depression and SI. Pt can also identify coping skills such as opposite action, listening to music, and challenging distortions. However, pt?s application of coping skills and mood continue to be variable based on sleep, blood sugar, and external stressors. Objective 2- in progress. Pt is gaining insight to the distorted messages he tells himself and has worked on combating these. Pt has written out reframed thoughts that he keeps in his binder and is sometimes helpful. Team Recommendations:: Treatment team recommends that pt continue to follow his safety plan, encourage pt to reflect over the next four weeks on what his future goals would be, and to continue engaging in healthy activities such as walking and spending time with friends. Therapist has also discussed the importance of a consistent sleep-wake schedule and IOP nurse has spoken with pt about diabetes management to further help manage pt's depression. Problem #2 Problem Name:: ruminating thoughts, avoidance, and flashbacks Status of Goals:: Objective 1-partially complete-ongoing work encouraged. Pt?s DSM-5 scores for anxiety have decreased by 20% since admission. Pt can identify calming skills to use when anxiety and he reports less avoidance per the DSM-5. However, pt reports increase flashbacks recently, with an unknown trigger. Pt?s lack of sleep could be impacting this and vice versa. Objective 2- not complete. Pt is learning about distress tolerance skills, but pt continues to struggle with applying these skills in the moment and managing stressors. Team Recommendations:: Treatment tx encourages pt to improve his sleep hygiene as pt reports most of his ruminations and worry come at night. Also recommended that pt follow up with his appointment at [facility] next week for case management as this will hopefully help pt better manage stressors and gain support.
--- NOTE | 2021-10-27 08:45 | BH.NET ---
Nursing Education/Training - Session Information Medical Management:: client wanted to talk about type 1 diabetes management and nutrition information - Education Goal of Session:: to discuss nutrition information related to type 1 diabetes, carb counting Educational Materials Presented/Interventions Utilized:: Print-out given about balanced diet relating to food groups, discussed emphasize on importance of balanced diet and vegetables and whole-grain carbs, etc. Print out given with general carb counts of different foods. Discussed importance of pre-bolusing insulin for meals and briefly discussed altered insulin dosing for high fat/protein foods. 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 Client states at this time he does not buy groceries due to not having a job and he does not have control over what foods are available for him to eat at home. Discussed with client about his upcoming endo appointment tomorrow and if endo sees fit, he may have a need to adjust some ratios. Client states he is going to discuss with endo at his appointment. What specifically did the client learn?: Further reinforced the need for a balanced diet.
--- NOTE | 2021-10-27 08:54 | BH.SGPN.GN ---
Behaviors/Verbalizations/Mental Status: []Pt alert and oriented, casually dressed and groomed. Eye contact fair to good, motor activity appropriate, speech within normal limits. Affect, congruent. Mood, euthymic. Thoughts linear, logical, no signs of hallucinations or delusions. Reviewed pt's daily symptom tracker, SI indicated as 1/5 which is below baseline, denies any plan or intent. Client Response/Progress/Benefit: []Pt responded well to session, engaged and positive throughout. Pt reports feeling tired but optimistic this morning and discussed a personal win of getting outside and going for several walks over the past two days. Shared listening to music and walking are his primary coping skills and that he often feels less depressed and more hopeful when able to be outdoors. Pt provided feedback to fellow participants throughout group and shared current stressor as upcoming plans to move in with a friend after completing the IOP program. Expressed this is both a positive and stressor as he is anxious about making this change. Appeared to benefit from encouragement and supportive feedback provided by group. Will continue IOP tx to continue to maintain safety, reinforce healthy coping skills, and promote mood stability. Narrative Note: []
--- NOTE | 2021-10-27 10:00 | BH.SGPN.GN ---
Behaviors/Verbalizations/Mental Status: []Client alert and oriented, casually dressed and groomed. Eye contact good. Motor activity appropriate. Speech within normal limits. Affect congruent, mood agitated. Thoughts linear, logical, no signs of hallucinations or delusions. Client Response/Progress/Benefit: []Client responded well to session AEB sharing and listening attentively to others. Client was an active participant in group discussion defining pitfalls, providing examples including ?soaking in? negative self talk and rumination. Clinician provided psychoeducation on internal and external triggers to pitfalls. Client participated in experiential activity illustrating how easy it is to fall into pitfalls when we are unaware of them. Client used emotion regulation skills throughout activity to reduce frustration. Appeared to benefit from increased knowledge of pitfalls and their triggers. Will continue IOP treatment to continue increasing depression management skills and decrease negative self-talk to improve daily functioning. Narrative Note: []
--- NOTE | 2021-10-27 11:05 | BH.SGPN.GN ---
Behaviors/Verbalizations/Mental Status: []Pt alert and oriented, disheveled appearance. Eye contact good. Motor activity appropriate. Speech within normal limits. Affect congruent, mood euthymic. Thoughts linear, logical, no signs of hallucinations or delusions. Client Response/Progress/Benefit: []Pt receptive of session, engaged throughout AEB pt actively listening and contributing to discussion, as well as taking notes. Pt completed worksheet identifying personal pitfalls impacting mental health progress. Pt identified the following pitfalls: not setting boundaries, not giving himself credit, and worrying ?too much? about others and the future. Group learned different coping skills to help manage pitfalls. Pt selected the following coping skills to help with pitfalls: thought challenging, walking ,and listening to music. Benefited from identifying personal pitfalls and strategies to overcome these pitfalls. Will continue IOP tx to reduce SI, improve self-care in all areas, and reduce negative thinking patterns. Narrative Note: []
--- NOTE | 2021-10-27 12:31 | PCM.BH.PN_ITS ---
Progress Note Progress Note: History of Present Illness/Interim History: [] The patient is a 20-year-old male with a history of bipolar disorder, anxiety, PTSD and type 1 diabetes mellitus and a history of overdoses on insulin who is seen in follow-up at the [facility] behavioral health IOP program. I last saw the patient 2 weeks ago and at that time no medication changes were made. About 1 week ago the patient had some passive thoughts of suicide in the evening and then ended up in the emergency room on October 21, 2021 for diabetic ketoacidosis. The patient then later in the week was able to go out of town with friends and did not sleep at all the first night but then slept well the rest of the time he was out of town with friends. He complains lately of some increased flashbacks due to some unknown trigger and decreased sleep lately down to 1 to 2 hours per night. He has initial insomnia and then even after he falls asleep he sometimes wakes up during the night or wakes up early. He is tired during the day and has very low energy levels. His thoughts are not racing. He has not been drinking caffeine except today he drank 1 to help him get through the IOP program. Trazodone has not helped him sleep even going up to several tablets at bedtime. The patient denies any self-harm. His mood is still somewhat depressed. He denies any passive thoughts of in the last couple days. He denies suicidal ideation, homicidal ideation, hallucinations or delusions. He denies any panic attacks. He says he has been compliant with all of his medications since he was last seen. Current Psychiatric Medications: [] Invega or paliperidone ER 9 mg p.o. daily.; Celexa 10 mg p.o. daily (x2-1/2 weeks); trazodone was being used for sleep. He is also on gabapentin 300 mg 3 times a day for neuropathy and insulin for his diabetes. Mental Status Examination: [] Patient is a 20-year-old male who is seen without a mask and is casually dressed and groomed with good hygiene. He has no psychomotor agitation or retardation. He is cooperative and pleasant during the interview. Eye contact is good and speech is normal rate and rhythm and fluent with no pressure. Mood is depressed. Affect is slightly constricted only. Thought process is goal-directed and organized. Thought content: There is no evidence of passive thoughts of , suicidal ideation, homicidal ideation, hallucinations, delusions or plan for suicide. The patient is concerned today about his decreased and erratic sleep. This has been going on for a while. Reality testing is intact. Impulsivity is high. Judgment is limited. Insight is limited. Diagnoses: [] 1. Bipolar, NOS 2. PTSD 3. Strong cluster B traits 4. Diabetes mellitus type 1, poorly controlled with neuropathy and retinopathy 5. History of medication noncompliance 6. Primary support and work issues Plan: [] The patient will continue the IOP program in behavioral health at [facility] as the structure, support, education, and group therapy will hopefully prevent worsening of the patient's symptoms which might require hospitalization. He felt safe during the interview and if it anytime he does not feel safe he will let us know or go to the emergency room. The risks, options, possible complications and side effects of the medications were again discussed with the patient and he understands accepts these. The patient states that the only medication that ever helped him sleep was clonidine. Prescription was sent in for clonidine 0.1 mg p.o. at bedtime. He will continue to follow-up with his outpatient psychiatric and medical providers and I will see the patient in follow-up in 1 to 2 weeks at the IOP program.
--- NOTE | 2021-10-29 09:00 | BH.SGPN.GN ---
Behaviors/Verbalizations/Mental Status: [] Eye contact is good. Motor activity is appropriate. Appearance is casual. Speech is Appropriate. Mood is depressed. Affect is flat. Thoughts are linear and logical. No evidence of psychosis. Reviewed daily check in sheet and pt reports 4/5 for suicidal thoughts and 3/5 for intent. Slightly higher than baseline. Client Response/Progress/Benefit: [] Pt participated at times during the group discussion. Attentive. Daily symptom tracker notes 4/5 for depression and 3/5 for self-harm urges. Emotion for today is confused. He shared that he had some arguments with support last evening. Pt currently wants to move out and live with friends in another city as he believes this will be beneficial for him. According to pt he is getting mixed messages from his support stating that moving out would not be good for him and then pressing him to find new housing. He was vague regarding the specifics of the conversations however reports that this conflict led to distress. Group was support and offered feedback which was beneficial. Group also relayed personal experiences similar to him. Mental health wins I'm here and I'm laughing. States when he arrived this AM he was depressed and ruminating however group was beneficial and made him more optimistic I'm getting better. Progress noted per pt report after processing stressors with group. Will continue in IOP to maintain safety, increase healthy coping, and improve functioning. Narrative Note: []
--- NOTE | 2021-10-29 10:15 | BH.SGPN.GN ---
Behaviors/Verbalizations/Mental Status: []Eye contact is good. Motor activity is appropriate. Appearance is casual. Speech is Appropriate. Mood is euthymic. Affect is constricted. Thoughts are linear and logical. No evidence of psychosis. Client Response/Progress/Benefit: []Pt was an active participant in group discussion AEB taking notes and providing input throughout. Attentive during psychoeducation reviewing internal and external obstacles and provided examples throughout. Participated in the reflection activity in which clients ramone pictures depicting their current and desired reality and shared with the group. Pt shared in current reality he feels like he's in a small fish bowl with the water representing negative thoughts that make him feel stuck. Shared desired reality is being in a much larger tank with plants and other fish that makes him feel more connected and decrease in negativity. Pt to continue IOP to continue use of healthy coping, challenge distorted thoughts, and prevent decompensation.
--- NOTE | 2021-10-29 11:51 | BH.COMM_ITS ---
Communication Note - Communication with Client Communication Note: Met with patient briefly to assess risk. Daily symptom tracker notes 4/5 for suicidal thoughts and 3/5 for intent. Which is higher than pt?s baseline. Pt shared this has significantly decreased since being at [facility] today. Smiling and laughing while talking to therapist. He is future-oriented and shared ?I love coming to group? as it helps improve his mood and outlook. Pt reports the increased thought were because of conflict with his grandmother and girlfriend, and pt recognizes that stress and conflict lead to SI for him. Pt denies any thoughts of actually killing himself, he states he mainly just felt overwhelmed. Reports ability to maintain safety. Plans to spend the day outside playing basketball or walking. Does not present as imminent risk to himself due to no active SI, plan, or intent. Contracts for safety. Long-standing fleeting passive SI. Provided pt with distress tolerance skill handout and discussed ambrose-mind thinking to help manage crisis.
--- NOTE | 2021-11-04 09:00 | BH.SGPN.GN ---
Behaviors/Verbalizations/Mental Status: [] Eye contact is good. Motor activity is appropriate. Appearance is casual. Speech is Appropriate. Mood is depressed. Affect is flat. Thoughts are linear and logical. No evidence of psychosis. Reviewed daily check in sheet and no reports of suicidal ideations or intent. Client Response/Progress/Benefit: [] Pt participated at times during the group discussion. Attentive. Mental health win is I'm here. Spent time with friends recently. More social and engaged which has translated to decreased isolation, rumination, and distress. I'm dealing with my emotion well. Utilizing skills and challenging negative self-talk. Overall reports progress from earlier this week which he presented with SI. Benefited from group support, encouragement, and feedback. Plan is to continue in IOP to maintain safety, prevent decompensation, and improve functioning. Narrative Note: []
--- NOTE | 2021-11-04 10:05 | BH.SGPN.GN ---
Behaviors/Verbalizations/Mental Status: []Client alert and oriented, casually dressed and groomed. Eye contact good. Motor activity appropriate. Speech within normal limits. Affect congruent, mood euthymic. Thoughts linear, logical, no signs of hallucinations or delusions. Client Response/Progress/Benefit: []Client responded well to session AEB sharing and listening attentively to others. Client was engaged throughout group discussion defining fixed mindset and what it can look like. Group discussed how fixed mindset affects mental health and why we use fixed thoughts. Client participated in experiential activity encouraging clients to find solutions to a seemingly impossible task. Client aided group in problem solving and provided supportive feedback throughout activity. Client identified a fixed thought keeping him stuck as ?I?m too far gone?. Client appeared to benefit from increased knowledge of fixed mindset and self-awareness of personal fixed thoughts. Will continue IOP treatment to continue increasing mood stability and decreasing rumination to improve daily functioning. Narrative Note: []
--- NOTE | 2021-11-04 11:10 | BH.SGPN.GN ---
Behaviors/Verbalizations/Mental Status: []Pt alert and oriented, casually dressed and groomed. Eye contact good. Motor activity appropriate. Speech within normal limits. Affect congruent, mood euthymic. Thoughts linear, logical, no signs of hallucinations or delusions. Client Response/Progress/Benefit: []Pt engaged during activity and discussion AEB providing some input, connecting with peers, as well as taking notes throughout. Pt did well to engage as group worked on identifying characteristics and benefits of adopting a growth mindset. Worked with fellow participants in reframing the example fixed thoughts into growth mindset thoughts, providing support throughout. Reframed personal fixed thought of ?I?m not good enough? with growth mindset thought of ?I am good enough, my brain is trying to trick me.? Benefitted from discussing benefits of growth mindset and brainstorming strategies for prompting growth-mindset. Will continue IOP tx to reinforce healthy coping skills, obtain prolonged mood stability, and challenge distortions. Narrative Note: []
--- NOTE | 2021-11-05 09:20 | BH.MDN_ITS ---
Multi-Disciplinary Note - Note 30-min Individual Time Started:: 08:35 Date: 11/05/21 Purpose of session/treatment goals addressed:: The purpose of this session was to address current stressors, progress, and complete pt's maintenance plan. Eye Contact:: Good Motor Activity:: Appropriate Appearance:: Casual Speech:: Appropriate Mood:: Euthymic Affect:: Congruent Thoughts:: Linear, Logical, No evidence of hallucinations/delusions noted Staff Interventions:: discharge planning, strengths perspective, other - completed a maintenance plan and reviewed progress Client Response:: Pt responded well to session, open to meeting with therapist. Pt reports overall he is doing better and feeling more positive. Pt shared he had an argument last night with his girlfriend, which would have been a significant trigger to SI a week ago, but pt did not become suicidal. Pt reports belief that with his improved sleep and using coping skills, he is managing triggers much better. Pt stated he still plans to move in November and still does not know what he will do for work, but pt is much more hopeful this week. Pt shared I'm just taking it day by day rather than thinking of the worst. Pt also spent time with old friends this past weekend which is progress. Pt receptive to completing his maintenance plan that includes triggers, warning signs, self- care, and coping skills. Pt focused on preventing anxiety and depression and the plan included coping skills such as walking, music, talking to his friend, countering negative thoughts, and making pros and cons lists. Pt also identified what would make his depression and anxiety worse which included isolating, feeding negative thoughts, and avoidance. Pt also identified daily, weekly, and monthly self-care to help pt stay well. Therapist encouraged pt to include self- reflection in his self-care to help pt be more aware of stressors and emotions on a consistent basis. Risks/Concerns:: Pt denies any suicidal ideations or thoughts of today. Denies any HI. Progress Toward Goals/Plan:: Pt reports his mood has been consistently improved this week and pt is seeing progress with his ability to manage triggers. Pt got into an argument with his girlfriend last night which normally would trigger SI, but pt shared my brain didn't go there. Pt reports improved sleep since the medication change which has significantly helped pt's mood and thinking patterns. Pt does continue to struggle with ruminations, negative self-talk, and has financial stressors. Pt did not make it to his appointment for case management at [facility] and hopes to reschedule. Pt will continue IOP tx to promote mood stability, improve distress tolerance skills, and reduce negative thinking patterns. Time Stopped:: 09:05
--- NOTE | 2021-11-08 09:00 | BH.SGPN.GN ---
Behaviors/Verbalizations/Mental Status: [] Eye contact is good. Motor activity is appropriate. Appearance is disheveled. Speech is Appropriate. Mood is euthymic. Affect is full. Thoughts are linear and logical. No evidence of psychosis. Reviewed daily check in sheet and no reports of suicidal ideations or intent. Client Response/Progress/Benefit: [] Pt participated at times during group discussions. Attentive. Daily symptom tracker notes 07/21 for depression. Reports feeling better than last week. Emotion for today is happy. Shared that he had a great weekend in which he played basketball and spent time with his GF. He reports that he is sleeping better and overall is more hopeful and optimistic. Limited stressors. He did not share much during his check-in however was smiling and reports being positive today. Progress noted per patient report. Benefited from group support, encouragement, and feedback. Will continue in IOP to maintain safety, prevent decompensation, and increase healthy coping. Narrative Note: []
--- NOTE | 2021-11-08 10:00 | BH.SGPN.GN ---
Behaviors/Verbalizations/Mental Status: []Client alert and oriented, casually dressed and groomed. Eye contact good. Motor activity appropriate. Speech within normal limits. Affect congruent, mood euthymic. Thoughts linear, logical, no signs of hallucinations or delusions. Client Response/Progress/Benefit: []Client responded well to session AEB sharing and listening attentively to others. Client provided examples of benefits of having social support, including that they can ?help you out of bad situations?. Client also participated in group discussion regarding how it feels to not have social support, stating it can be ?scary?. Clinician provided psychoeducation on types of support including internal and external support, with client identifying family and hobbies as other supports. Client participated in experiential activity illustrating the importance of having multiple social supports. Client provided supportive feedback and problem solving throughout group activity. Client participated in group processing of the activity, stating having more social support makes ?things easier?. Client appeared to benefit from increased knowledge of the benefits of social support and greater self-awareness. Will continue IOP treatment to continue increasing application of healthy coping skills and decreasing negative self-talk to improve daily functioning. Narrative Note: []
--- NOTE | 2021-11-08 11:05 | BH.SGPN.GN ---
Behaviors/Verbalizations/Mental Status: []Client alert and oriented, casually dressed and groomed. Eye contact good. Motor activity appropriate. Speech within normal limits. Affect congruent, mood euthymic. Thoughts linear, logical, no signs of hallucinations or delusions. Client Response/Progress/Benefit: []pt was an active participant throughout AEB contributing to discussion, providing personal examples, and taking notes. Pt processed emotions pt felt in the activity and how pt coped in the moment. Pt provided input during discussion on the types of support our supports can provide. Pt able to identify current support system and barriers that get in the way of using supports. Pt reported after identifying what type of supports he receives he was surprised that he has several people in his life that provide emotional support. Pt stated he struggles most with getting tangible support because likes to do things himself and doesn't want to rely on others. Connected impact this can have on his mental health. Pt seemed to benefit from identifying the type of support he needs to work on improving. Pt recommended to continue IOP to continue use of healthy coping, challenge distorted thoughts and prevent decompensation.
--- NOTE | 2021-11-11 09:00 | BH.SGPN.GN ---
Behaviors/Verbalizations/Mental Status: []Pt alert and oriented, casually dressed and groomed. Eye contact good. Motor activity appropriate. Speech within normal limits. Affect congruent, mood euthymic. Thoughts linear, logical, no signs of hallucinations or delusions. Reviewed pt?s symptom tracker, no risk for suicidal ideation, plan, or intent as of 11/11/21. Client Response/Progress/Benefit: []Pt responded well to session, attentive and providing feedback to peers. Pt reports feeling positive this morning as pt's mood has been improving. Pt reports he has been cuong more, spending time with his niece, and getting better sleep overall. Pt reported although his sleep has improved, he struggled with sleep last night, but this is not happening consistently. Pt has not had suicidal ideations for a week which is significant progress as pt continues to experience stressors. Pt attributes his improved mood to his medication change, staying busy, getting sleep, and challenging negative thoughts. Pt appeared to benefit from reflecting on his progress and reduction of symptoms. Pt will continue IOP tx to promote prolonged mood stability, further decrease negative thinking, and establish aftercare. Narrative Note: []
--- NOTE | 2021-11-11 10:54 | BH.MDN ---
Multi-Disciplinary Note - Note 30-min Individual Time Started:: 10:25 Date: 11/11/21 Purpose of session/treatment goals addressed:: To address current stressors and progress. Another goal was to discuss discharge and aftercare. Eye Contact:: Good Motor Activity:: Appropriate Appearance:: Casual Speech:: Appropriate Mood:: Euthymic Affect:: Congruent Thoughts:: Linear, Logical, No evidence of hallucinations/delusions noted Staff Interventions:: discharge planning, strengths perspective, other - reviewed treatment plan and discussed progress. Client Response:: Pt responded well to session, open to meeting with therapist. Pt stated he has been feeling good lately both mentally and within his relationships. Pt shared last night he did not get much sleep, but overall, pt has been sleeping well which has helped pt's emotional regulation skills. Pt reflected on his progress since starting IOP and reviewed his treatment plan goals. Pt reports belief he has accomplished his tx goals for both reducing depression and anxiety. Pt shared he no longer feels hopeless, suicidal, or panic. Pt states he is able to reframe his thinking which has had not been able to do in the past. Pt also reports less flashbacks which pt believes is due to getting more sleep. Pt is still planning to move in with a friend, but pt does not know when this will be. Pt would like to do IOP aftercare and plans to follow up with [facility] for outpatient counseling and psychiatry. Pt does not have an appointment scheduled yet and will be working on this before discharging. Risks/Concerns:: Pt denies any suicidal ideations, plan, or intent as of 11/11/21. Pt reports he has not had suicidal ideations for over a week. Denies any HI. Progress Toward Goals/Plan:: Pt will be discharging from IOP tx next week as pt self-reports overall improved mood, no suicidal ideations, and no more hopelessness. Pt also reports progress in improved sleep which has helped pt manage stressors and manage ruminations. Pt stated he feels more positive and is interactions at home have improved. Pt wants to focus on maintenance for the next week to promote gains made in IOP tx. Pt can benefit from one more week of IOP tx to reinforce healthy coping skills and establish aftercare plan. Time Stopped:: 10:44
== END 2021-11-13 23:59 ==
LOC: BHIOP 07:07
PROVIDERS: PCP Family Medicine; Referring Provider Psychiatry & Neurology Psychiatry; Visit Provider Psychiatry & Neurology Psychiatry
DX: F31.89 Other bipolar disorder (principal); F43.10 Post-traumatic stress disorder, unspecified; E10.40 Type 1 diabetes mellitus with diabetic neuropathy, unspecified; E10.319 Type 1 diabetes mellitus with unspecified diabetic retinopathy without macular edema; Z91.14 Patient's other noncompliance with medication regimen; Z79.4 Long term (current) use of insulin; Z79.899 Other long term (current) drug therapy; Z91.51 Personal history of suicidal behavior; G40.909 Epilepsy, unspecified, not intractable, without status epilepticus; F17.290 Nicotine dependence, other tobacco product, uncomplicated
CPT/HCPCS: 90792; 99214; H2012; H2020; S9480; T1002; 90832; 90834; 90837

== ENCOUNTER 2021-10-19 17:59 | Emergency (ER) | payer MEDICAID, SELFPAY ==
[2021-10-19 18:00] VITALS: BP 188/166; PULSE 133; RESP 25; TEMP 36.5; BMI 21.2
--- NOTE | 2021-10-19 18:12 | EX.ED.DYSGE1 ---
HPI History of Present Illness Chief Complaint: Nausea/Vomiting Informant: patient Onset/Context/Timing Onset: Yesterday Context: Gradual Onset Timing: Continuous Current Severity: Mild Maximum Severity: Mild Narrative Narrative: 20-year-old male history of diabetes and anxiety with recurrent episodes of DKA. States today he had elevated blood sugar of greater than 600. He took insulin. Says his last blood sugar was 380. He has had nausea and vomiting the last 1 to 2 days. No diarrhea. No fever. No abdominal pain other than cramping. Denies any dysuria. Prior similar symptoms: Yes Recent Illness/Hospitalization: No [facility] Medical History Anxiety disorder Back problem Bone fracture Diabetes type 1, uncontrolled Hearing problem Liver disease Seizure Vision problem Home Medications gabapentin 300 mg PO TID 09/15/19 [History Last Taken Unknown] insulin glargine [Lantus U-100 Insulin] 20 unit SUBCUT BREAKFAST 09/09/21 [History Last Taken Unknown] insulin glargine [Lantus U-100 Insulin] 30 unit SUBCUT QHS 09/09/21 [History Last Taken Unknown] insulin lispro 6 unit SUBCUT BREAKFAST 09/09/21 [History Last Taken Unknown] insulin lispro 9 unit SUBCUT LUNCH 09/09/21 [History Last Taken Unknown] insulin lispro 12 unit SUBCUT DINNER 09/09/21 [History Last Taken Unknown] citalopram 10 mg PO DAILY 10/13/21 [History Last Taken Unknown] paliperidone 9 mg PO DAILY 10/13/21 [History Last Taken Unknown] levetiracetam 750 mg PO DAILY 10/19/21 [History Last Taken Unknown] mirtazapine 15 mg PO QHS 10/19/21 [History Last Taken Unknown] Allergy/AdvReac Type Severity Reaction Status Date / Time No Known Allergies Allergy Verified 10/19/21 18:00 Family History Mother Kidney disease Surgical History History of appendectomy S/p bilateral myringotomy with tube placement Social History Smoking Status: Never smoker second hand exposure: No alcohol intake: never substance use type: does not use ROS ROS ED ROS Narrative Nausea and vomiting. Elevated blood sugar. Review of Systems ROS Unobtainable: Denies due to encephalopathy Constitutional Constitutional ED: Denies fever(s) Eyes Eyes: Denies change in vision ENT ENT ED: Denies ear pain Cardiovascular Cardiovascular: Denies chest pain Respiratory/Chest Respiratory/Chest: Denies dyspnea Gastrointestinal Gastrointestinal: Reports nausea and vomiting; Denies abdominal pain, constipation or diarrhea Genitourinary Genitourinary ED: Denies dysuria Musculoskeletal Musculoskeletal: Denies myalgias Integumentary Denies rash Neurologic Neurologic: Denies headache(s) Psychiatric Psychiatric: Denies depression Endocrine Endocrinology: Denies polyuria EXAM Physical Exam Narrative Exam Narrative: 18-year-old male no acute distress vital signs stable. He is afebrile. Patient blood pressure is elevated 188/166 that will be rechecked. Heart rate is 133. H EENT exam only mild dehydration. Neck nontender no lymphadenopathy. Lungs clear to auscultation bilaterally. Heart tachycardic rate about 120 no murmur. Abdomen soft nondistended normal bowel sounds no peritoneal signs. No signs obstruction. Moving all 4 extremities. Neurologically awake alert with no focal motor deficits. Const Vital Signs: 10/19/21 18:00 10/19/21 18:09 10/19/21 18:25 Temperature 97.7 F L Temperature Source Temporal Pulse Rate 133 H 109 H Respiratory Rate 25 H Respiratory Effort Normal Respiratory Pattern Normal Blood Pressure 188/166 H 117/82 H Blood Pressure Mean 173 93 Pulse Ox 96 Oxygen Delivery Method Room Air 10/19/21 20:31 10/19/21 20:50 Temperature Temperature Source Pulse Rate 101 H 102 H Respiratory Rate 20 H 15 Respiratory Effort Respiratory Pattern Blood Pressure 120/76 119/74 Blood Pressure Mean 90 89 Pulse Ox 97 98 Oxygen Delivery Method Room Air Room Air Positive well nourished and well developed; Negative for obese, cachectic, contractures or unkempt General Appearance ED: well developed and NAD; Negative for unkempt, cachectic, contractures or pallor Nutritional Appearance: Negative for cachectic or obese HEENT Reports moist mucous membranes Negative for trauma or tenderness Eyes PERRL and EOMs intact bilaterally Neck no lymphadenopathy, supple and no JVD General: Negative for tenderness Chest Wall inspection of chest normal and palpation of chest normal Resp normal respiratory effort and clear to auscultation bilaterally Effort and Inspection: Negative for pain with movement Auscultation: Negative for rales, wheezes or diminished lung sounds Cardio regular rhythm, S1 normal heart sound, S2 normal heart sound and no murmurs; Negative for regular rate Rate: tachycardic GI normal to inspection, nondistended, normoactive bowel sounds, non-tender, non-distended and no masses Inspection: Negative for abdominal distention Auscultation: normoactive bowel sounds Palpation: soft; Negative for tender, guarding or rebound tenderness present Back/Spine no CVA tenderness General Back: Negative for CVA tenderness Cervical Spine: Negative for cervical spine tenderness Extremity normal to inspection General Extremety ED: Negative for edema or tenderness General Extremity: Negative for edema Neuro oriented x3 and CN's II-XII intact bilaterally Sensorium / Orientation: alert and orientation impaired; Negative for lethargic or stuporous Motor Exam: strength 5/5 throughout; Negative for strength abnormal Psych mental status grossly normal Appearance: Negative for unkempt Mood & Affect: Negative for depressed or tearful Skin no rashes or lesions noted and no wounds General Skin Exam: Negative for jaundice or pallor MDM MDM MDM Narrative Medical decision making narrative: 20-year-old male with elevated blood sugar with history of diabetes rule out DKA. For his nausea and vomiting will be placed on IV fluids and IV Zofran. Screening labs and a serum acetone are being obtained. His blood pressure be rechecked. Repeat exam at 10:10 PM he is much improved. Patient is currently drinking fluids. He had 2 L normal saline here. His gap is resolved. Sugars much improved. He is comfortable being discharged home. He will check his blood sugar prior to going to [facility]. Lab Data Attestation: I reviewed the patient's lab results. Lab results narrative: CBC White count is 10 H&H is 16 and 47. Electrolytes sodium 131 gap 15 BUN 28 creatinine 1.46. Glucose 400 serum ketones are small. Patient was treated with subcu insulin. A repeat BMP was done. Gap is 9. BUN is 23 creatinine 1. Glucose 227. Labs: Laboratory Results - last 24 hr 10/19/21 10/19/21 10/19/21 18:21 18:21 18:21 WBC 10.6 RBC 5.60 Hgb 16.8 H Hct 47.4 MCV 84.6 MCH 30.0 MCHC 35.4 RDW Std Deviation 35.2 RDW Coeff of Richard 11.4 L Plt Count 374 MPV 9.6 Immature Gran % (Auto) 1.100 H Neut % (Auto) 69.7 Lymph % (Auto) 22.8 [place] % (Auto) 5.7 Eos % (Auto) 0.3 Baso % (Auto) 0.4 Absolute Neuts (auto) 7.4 Absolute Lymphs (auto) 2.42 Nucleated RBC % 0 Sodium 131 L Potassium 4.5 Chloride 97 L Carbon Dioxide 19.0 L Anion Gap 15 BUN 28 H Creatinine 1.46 H Estim Creat Clear Calc 70.94 Est GFR (MDRD) Af Amer 77 Est GFR (MDRD) Non-Af 64 BUN/Creatinine Ratio 19.2 Glucose 400 H Calcium 9.7 Acetone Level SMALL H POC Glucose 10/19/21 10/19/21 10/19/21 19:46 20:46 21:01 WBC RBC Hgb Hct MCV MCH MCHC RDW Std Deviation RDW Coeff of Richard Plt Count MPV Immature Gran % (Auto) Neut % (Auto) Lymph % (Auto) [place] % (Auto) Eos % (Auto) Baso % (Auto) Absolute Neuts (auto) Absolute Lymphs (auto) Nucleated RBC % Sodium 138 Potassium 3.5 Chloride 106 Carbon Dioxide 23.0 Anion Gap 9 BUN 23 H Creatinine 1.00 Estim Creat Clear Calc 103.58 Est GFR (MDRD) Af Amer 120 Est GFR (MDRD) Non-Af 99 BUN/Creatinine Ratio 23.0 H Glucose 240 H Calcium 8.3 L Acetone Level POC Glucose 317 H 227 H Discharge Plan Triage Chief Complaint: Nausea/Vomiting ED Provider: Michael Cortez Dx/Rx/DC Orders Clinical Impression: DM I (diabetes mellitus, type I), uncontrolled, Hyperglycemia due to diabetes mellitus, Nausea & vomiting Instructions: High Blood Sugar (Hyperglycemia), ED Vomiting (Adult) Prescriptions: No Action gabapentin 300 MG capsule 300 mg PO TID RF: 0 insulin lispro 100 unit/mL Insulin Pen 12 unit SUBCUT DINNER RF: 0 insulin lispro 100 unit/mL Insulin Pen 9 unit SUBCUT LUNCH RF: 0 insulin lispro 100 unit/mL Insulin Pen 6 unit SUBCUT BREAKFAST RF: 0 Lantus U-100 Insulin 100 unit/mL Cartridge 20 unit SUBCUT BREAKFAST RF: 0 Lantus U-100 Insulin 100 unit/mL Cartridge 30 unit SUBCUT QHS RF: 0 citalopram 10 mg Tablet 10 mg PO DAILY RF: 0 paliperidone 9 mg Tablet Extended Release 24hr 9 mg PO DAILY RF: 0 levetiracetam 750 mg tablet 750 mg PO DAILY RF: 0 mirtazapine 15 mg tablet 15 mg PO QHS RF: 0 Primary Care Provider: Jason Good Referrals: Jason Good MD [Primary Care Provider] - 3-5 Days Activity Restrictions/Additional Instructions: Plenty of fluids and rest. Watch her blood sugars very closely over the next 48 hours. Check it again the night before you go to bed. Follow-up with your doctor. Return if feeling worse. Disposition Disposition: Home, Self Care
[2021-10-19] MEDS: 0.9% Normal Saline 1,000 ML 1000 ML IV (18:21)
[2021-10-19 18:25] VITALS: BP 117/82; PULSE 109; O2SAT 96
[2021-10-19 18:26] LABS: Absolute Lymphocyte Count 2.42 X10^3/uL (0.83-4.51); Absolute Neutrophil Count 7.4 X10^3/uL (2.0-7.7); Basophil# 0.04 X10^3/uL; Basophil% 0.4 % (0-1); Eosinophil# 0.03 X10^3/uL; Eosinophils% 0.3 % (0-5); Hematocrit 47.4 % (40-54); Hemoglobin 16.8 g/dL (13.0-16.5); Lymphocyte # 2.42 X10^3/ul (0.83-4.51); Lymphocyte % 22.8 % (19-41); Mean Corp Hgb Conc 35.4 g/dL (32-36); Mean Corpuscular Volume 84.6 fL (80-94); Mean Platelet Vol. 9.6 fl (6.2-12.0); Monocyte# 0.61 X10^3/uL; Monocyte% 5.7 % (0-10); NRBC Flagged by Analyzer 0 % (0-5); Neutrophil # 7.41 X10^3/uL (2.7-7.7); Neutrophil % 69.7 % (47-70); Platelet Count 374 K/mm3 (150-450); RBC Distribution Width CV 11.4 % (11.6-14.6); RBC Distribution Width SD 35.2 fl (35.1-43.9); White Blood Count 10.6 K/mm3 (4.4-11.0)
[2021-10-19 18:39] LABS: Anion Gap 15 (5-15); BUN 28 mg/dL (7-18); BUN/Creat Ratio 19.2 RATIO (10-20); Calcium,Total 9.7 mg/dL (8.5-10.1); Chloride 97 mmol/L (98-107); Creatinine, Serum 1.46 mg/dL (0.70-1.30); EST Glomerular Filtration Rate 64 mL/min (>60); Est Glom Filt Rate - Afr Amer 77 mL/min (>60); Estimated Creatinine Clearance 70.94 ml/min; Glucose 400 mg/dL (74-106); Potassium 4.5 mmol/L (3.5-5.1); Sodium Level 131 mmol/L (136-145)
[2021-10-19] MEDS: 0.9% Normal Saline 1,000 ML 999 ML IV (19:50)
[2021-10-19] MEDS: Insulin Lispro 100 UNIT/ML INSULN.PEN 10 UNIT SC (19:50)
[2021-10-19 20:00] LABS: Bedside Glucose 317 mg/dL (74-106)
[2021-10-19 20:31] VITALS: BP 120/76; PULSE 101; RESP 20; O2SAT 97
[2021-10-19 20:50] VITALS: BP 119/74; PULSE 102; RESP 15; O2SAT 98
[2021-10-19 21:06] LABS: Bedside Glucose 227 mg/dL (74-106)
[2021-10-19 21:07] LABS: Anion Gap 9 (5-15); BUN 23 mg/dL (7-18); Calcium,Total 8.3 mg/dL (8.5-10.1); Chloride 106 mmol/L (98-107); EST Glomerular Filtration Rate 99 mL/min (>60); Est Glom Filt Rate - Afr Amer 120 mL/min (>60); Estimated Creatinine Clearance 103.58 ml/min; Glucose 240 mg/dL (74-106); Potassium 3.5 mmol/L (3.5-5.1); Sodium Level 138 mmol/L (136-145)
[2021-10-19 22:35] LABS: Bedside Glucose 215 mg/dL (74-106)
[2021-10-19 22:44] VITALS: BP 118/69; PULSE 109; RESP 21; O2SAT 96
== END 2021-10-19 22:56 | disposition home or self-care (01) ==
PROVIDERS: Emergency Provider Emergency Medicine; PCP Family Medicine; Visit Provider Emergency Medicine
DX: E10.65 Type 1 diabetes mellitus with hyperglycemia (principal); Z79.4 Long term (current) use of insulin; R11.2 Nausea with vomiting, unspecified; F41.9 Anxiety disorder, unspecified
CPT/HCPCS: J2405; 80048; 82009; 82962; 85025; 96361; 96374; 99283; J7030; A4216

== ENCOUNTER 2021-11-15 08:01 | Outpatient (RCR) | payer MEDICAID, SELFPAY ==
[2021-11-14 00:43] VITALS: BP 121/73; PULSE 102
--- NOTE | 2021-11-16 09:00 | BH.SGPN.GN ---
Behaviors/Verbalizations/Mental Status: []Pt alert and oriented, casually dressed and groomed. Eye contact good, motor activity appropriate, speech within normal limits. Affect, congruent. Mood, euthymic. Thoughts linear, logical, no signs of hallucinations or delusions. Reviewed pt's daily symptom tracker, no SI, plan, or intent reported on this date. Client Response/Progress/Benefit: []Pt responded well to session, engaged and attentive throughout. Pt reports emotion of the day as positive, noting that he had been able to enjoy the nice weather over the weekend and accomplished his goal of spending time outdoors. Shared this as a mental health win as being active and outside has been a major help in improving his mood over the past few weeks. Additional win noted as spending time with his grandmother and sister without arguing which pt reports is not common. Noted he is trying to focus on counteracting the negatives by asking himself each day ?what?s one positive thing I can find??. Appeared to benefit from reflecting on progress and supportive feedback provided by group. Will continue IOP tx to reinforce healthy coping skills and promote mood stability as pt completes discharge planning. Narrative Note: []
--- NOTE | 2021-11-16 10:10 | BH.SGPN.GN ---
Behaviors/Verbalizations/Mental Status: []Client alert and oriented, casually dressed and groomed. Eye contact good. Motor activity appropriate. Speech within normal limits. Affect congruent, mood euthymic. Thoughts linear, logical, no signs of hallucinations or delusions. Client Response/Progress/Benefit: []Pt was an active participant in group discussion and experiential activity. Attentive during psychoeducation. Group had an interactive discussion on the benefits of emotional regulation in which pt provided insight. Group identified several benefits to emotional regulation. Group also was able to identify how emotions can impact our communication leading to: using hurtful words, shutting down, feeling scattered and making assumptions. Pt participated in experiential activity and reported he was able to stay calm because could trust his partners. Benefited from increased awareness into how emotions can impact one's ability to effectively communicate. Will continue IOP tx to further improve mood stability and continue use of healthy coping strategies.
--- NOTE | 2021-11-16 11:10 | BH.SGPN.GN ---
Behaviors/Verbalizations/Mental Status: []Pt alert and oriented, casually dressed and groomed. Eye contact good. Motor activity appropriate. Speech within normal limits. Affect congruent, mood euthymic. Thoughts linear, logical, no signs of hallucinations or delusions. Client Response/Progress/Benefit: []Pt engaged in session AEB pt listening attentively to peers and providing input. Attentive during psychoeducation on 4 zones of regulation. Pt able to identify feelings and behaviors for each zone. Pt identified coping skills one can use to support self in each zone. Pt reported he is in the ?green? zone today as he feels like himself-joking and interacting with people. Pt reports he needs to continue to be around positive people and get outside to help himself maintain progress. Benefited from increased education on zones of regulation or stages of alertness for emotions and healthy coping skills to use for each zone. Will continue IOP tx to reinforce healthy coping skills and establish aftercare. Narrative Note: []
--- NOTE | 2021-11-17 09:00 | BH.SGPN.GN ---
Behaviors/Verbalizations/Mental Status: []Pt alert and oriented, casually dressed and groomed. Eye contact good. Motor activity appropriate. Speech within normal limits. Affect congruent, mood euthymic. Thoughts linear, logical, no signs of hallucinations or delusions. Reviewed pt?s symptom tracker, no risk for suicidal ideation, plan, or intent as of 11/17/21. Client Response/Progress/Benefit: []Pt responded well to session, attentive and providing positive feedback. Pt reports feeling excited this morning as pt has been feeling positive on a more consistent basis and his last day of IOP is tomorrow. Pt shared his last day is both a positive and a stressor because pt will miss this place. Pt reports he has made a lot of progress since starting IOP as pt no longer feels depressed or suicidal and pt feels more hope for the future. Pt is spending time with friends more consistently and he is enjoying time around family more. Pt appeared to benefit from reflecting on personal growth. Will continue IOP tx for one more day to reinforce healthy coping skills and provide closure to treatment. Narrative Note: []
--- NOTE | 2021-11-17 10:05 | BH.SGPN.GN ---
Behaviors/Verbalizations/Mental Status: [] Eye contact is good. Motor activity is appropriate. Appearance is disheveled. Speech is Appropriate. Mood is euthymic. Affect is full. Thoughts are linear and logical. No evidence of psychosis. Client Response/Progress/Benefit: [] Pt was an active participant in group discussion. Attentive during psychoeducation on different anxiety disorders. Along with peers participated in an interactive discussion on defining anxiety, identifying physiological symptoms of anxiety, and identifying safety behaviors (behaviors used to ease anxiety or discomfort which are often unhealthy). Physiological symptoms reported by patient were shaky hands, headache, and feeling off mentally. Along with peers identified common safety behaviors including; sleeping to cope, cancelling plans, not answering the phone, and utilizing substances to numb the pain. Benefited from increased awareness and insight on anxiety and its impact. Plan is to continue in IOP to prevent decompensation, maintain gains, and increase healthy coping. Narrative Note: []
--- NOTE | 2021-11-17 12:11 | PCM.BH.PN_ITS ---
Progress Note Progress Note: History of Present Illness/Interim History: [] Patient is a 20-year-old male with a history of bipolar disorder, anxiety, PTSD and type 1 diabetes mellitus and a history of overdoses on insulin and ketoacidosis who is seen in follow-up at the [facility] behavioral health IOP program. I last saw the patient 3 weeks ago and at that time clonidine was added to help his sleep. The patient states that his sleep has improved on clonidine from 1 to 2 hours a night to an average of 6 hours a night now. He is pleased with this improvement. His mood he feels is euthymic for the most part now also. His energy level is better during the day. He denies passive thoughts of , suicidal ideation, homicidal ideation, hallucinations or delusions. He feels he has benefited from the IOP program and has done well while participating in the program. Current Psychiatric Medications: [] Invega ER 9 mg p.o. daily; Celexa 10 mg p.o. daily; gabapentin 300 mg p.o. 3 times daily for neuropathy; clonidine 0.1 mg p.o. q. oh nightly for sleep Mental Status Examination: [] The patient is a 20-year-old male who is seen without a mask and is casually dressed and groomed with good hygiene. He is ambulatory with a normal gait. He has no psychomotor agitation or retardation. He is cooperative and pleasant during the interview. Eye contact is good and speech is normal rate and rhythm and fluent with no pressure. Mood is euthymic. Affect is full and normal. Thought process is goal-directed and organized. Thought content: There is no evidence of passive thoughts of , suicidal ideation, homicidal ideation, hallucinations, delusions or plan for suicide. The patient is hopeful for the future. Reality testing is intact. Impulsivity is high. Judgment is limited but improved. Insight is limited but improved. Diagnoses: [] 1. Bipolar, NOS 2. PTSD 3. Strong cluster B traits 4. Diabetes mellitus type 1, poorly controlled with neuropathy and retinopathy 5. History of medication noncompliance 6. Primary support and work issues Plan: [] The patient will probably be discharged from the IOP program tomorrow as he has remained stable and he has been engaged and made progress in the program. He felt safe during the interview and if it anytime he does not feel safe he will let us know or go to the emergency room. The risks, options, possible complications and side effects of the medications were again discussed with the patient and he understands and accepts these. The patient will continue to follow-up with his outpatient psychiatric and medical providers.
--- NOTE | 2021-11-18 07:05 | BH.IGGP_ITS ---
Aftercare Plan - Demographics Treatment End Date:: 11/18/21 Psychiatrist:: Akosua Murry Psychiatrist Office #:: [id number] [facility] Therapist:: Tanna Dubon Therapist Phone #:: [phone] - Plan Details Progress/Aftercare Plan Details:: Alphonso has made significant strides since starting IOP as shown by his reduced symptoms, his engagement in group, and his report of overall improved mood. When Alphonso started IOP, he was severely depressed, not sleeping, and had suicidal ideations daily. Alphonso did not have much hope for the future and he was isolating. Now, Alphonso is actively using healthy coping skills like opposite action, challenging negative thoughts, and using the awareness he has gained to manage his emotions and stressors. Alphonso self-reports progress in challenging negative thoughts, better sleep, feeling more positive, reduced panic, and reduced flashbacks. Alphonso was attentive during group and offered emotional support to peers. In individual sessions, Alphonso was receptive to feedback and responded well to thought challenging. Alphonso?s overall DSM-5 scores decreased by 75% from admission. Depression decreased by 100%, anxiety by 80%, SI by 100%, and not knowing who he is or what he wants in life decreased by 80%. Alphonso will follow up with [facility] for medication management and counseling. Alphonso also has an appointment at [facility] for case management services. Strategies for Success:: 1.Continue to use positive self-talk when you feel depressed, stressed, or hopeless. 2. Remember thoughts are thoughts NOT facts! Just because we think/feel a certain way doesn?t mean it?s true. 3. Continue doing the things that work?walking, music, basketball. 4. Opposite action! Continue to push yourself to do what will help you, not always what your emotions wants you to do. 5. Stay active both physically and socially. You SHINE when you are around others. 6. Challenge your negative thoughts and be proactive with reaching out rather than bottling emotions. 7. Maintenance! Self-care is important and so is checking in with yourself each day. 8. Remember to pay attention to what doesn?t work, avoid unnecessary triggers and unhealthy coping skills as much as you can. 9. Keep communicating with healthy supports. 10. Perspective is MELVIN! You can be stressed AND get through difficult moments. - Appointments Appointments/Referrals to Other Services:: 1. Sj Melvin 11/19/21 at 10:00am 2. Froylan Rojas at [facility] 11/25/21 at 1:00pm 3. [facility] 12/01/21 at 12:40pm 4. IOP aftercare starting 12/02/21 from 2-3:30pm. - Medications Home Medications: Home Medications gabapentin 300 mg PO TID 09/15/19 insulin glargine [Lantus U-100 Insulin] 20 unit SUBCUT BREAKFAST 09/09/21 insulin glargine [Lantus U-100 Insulin] 30 unit SUBCUT QHS 09/09/21 insulin lispro 6 unit SUBCUT BREAKFAST 09/09/21 insulin lispro 9 unit SUBCUT LUNCH 09/09/21 insulin lispro 12 unit SUBCUT DINNER 09/09/21 levetiracetam 750 mg PO DAILY 10/19/21 citalopram 10 mg PO DAILY #30 tab 11/17/21 clonidine HCl 0.1 mg PO QHS 30 Days #30 tab 11/17/21 paliperidone 9 mg PO DAILY 30 Days #30 tab 11/17/21
--- NOTE | 2021-11-18 09:08 | BH.COMM ---
Communication Note - Communication with Client Communication Note: Pt's last day was scheduled for today and pt was planning to attend. However, when pt got to group he reported his blood sugar was too high and he was not feeling well. Pt talked to this therapist and pt decided it was best to go home and get rest. Pt's last day will be 11/22/21.
--- NOTE | 2021-11-22 09:00 | BH.SGPN.GN ---
Behaviors/Verbalizations/Mental Status: []Pt alert and oriented, casually dressed and groomed. Eye contact good. Motor activity appropriate. Speech within normal limits. Affect congruent, mood euthymic and tired. Thoughts linear, logical, no signs of hallucinations or delusions. Reviewed pt?s symptom tracker, no risk for suicidal ideation, plan, or intent as of 11/22/21. Client Response/Progress/Benefit: P[]Pt responded well to session, attentive and reflecting on progress. Pt reports feeling excited today as it is his last day of IOP tx and pt has made a lot of progress. Pt stated he is sad to be leaving, but ready. Pt shared he saw his outpatient therapist recently and it went really well. Pt's therapist has not seen pt since before IOP and pt was able to reflect on the growth he has made in 6 weeks. Pt stated he has been consistently spending time with supports, getting outside, and challenging his perspective. Pt's stressors today is that he did not get good sleep last night. Pt will discharge from IOP tx today as he has made significant progress and no longer meets criteria for IOP level of care. Narrative Note: []
--- NOTE | 2021-11-22 10:00 | BH.SGPN.GN ---
Behaviors/Verbalizations/Mental Status: []Eye contact is good. Motor activity is appropriate. Appearance is casual and grooming tended to. Speech is Appropriate. Mood is anxious and euthymic. Affect is congruent. Thoughts are linear and logical. No evidence of psychosis Client Response/Progress/Benefit: []Pt receptive of session, actively engaged throughout AEB taking notes and providing input and examples to discussion. Appeared to connect with group topic of cognitive distortions and the impact of thought patterns on mental health, coping behaviors, and relationships. Reflected that he personally tends to struggle with distortions of: ?mental filter?, ?emotional reasoning?, and ?personalization?. Provided an example of mental filter in client?s own life, indicating that he struggles with looking for reasons that reinforce his negative core beliefs of not being good enough. Client appeared to benefit from gaining insight on distorted thinking patterns and influence of distortions on maintaining unhealthy maintenance cycles. Progress noted in pt report of improved insight and ability to combat distortions with alternative positive thoughts. Pt to discharge from [facility] tx given progress and will continue with outpatient counseling to maintain gains and prevent decompensation. Narrative Note: []
--- NOTE | 2021-11-22 11:10 | BH.SGPN.GN ---
Behaviors/Verbalizations/Mental Status: []Client alert and oriented, casually dressed and groomed. Eye contact good. Motor activity appropriate. Speech within normal limits. Affect congruent, mood euthymic. Thoughts linear, logical, no signs of hallucinations or delusions. Client Response/Progress/Benefit: []Pt was an actively engaged participant in Cognitive Distortions Jeopardy and utilized notes from psychoeducation on cognitive distortions to assist peers in correctly answering questions. Experiential activity was beneficial as it provided a way for pt to review notes and handouts during psychoeducation to answer questions about cognitive distortions. Patient reported he found group today to be helpful in identifying the different categories of distortions so he can better identify and challenge when needed. Pt was given a thought log to complete for homework. Patient has made significant treatment progress and will discharge from [facility] today.
--- NOTE | 2021-11-22 13:24 | BH.DS ---
Discharge Summary - Demographics Date of Admission:: 10/04/21 Discharge Date: 11/22/21 Presenting Problems at Admission:: Pt is a 20-year-old male with a history of bipolar NOS, depression, anxiety, and PTSD. Pt was referred to IOP by his outpatient counselor at [facility] due to worsening depression, anxiety, and a recent hospitalization due to suicide attempt. Pt has numerous hospitalizations and suicide attempts in his lifetime by overdose on insulin and other methods. At admission, pt endorsed a depressed mood, loss of motivation, poor concentration, apathy, anhedonia, hopelessness, worthlessness, crying spells, isolation, mood swings, and irritability. Pt denied any active SI, but admits to chronic SI that is fleeting and passive. Pt reported his symptoms were interfering with his functioning at work, home, and in his relationships. Discharge Diagnoses:: Bipolar, NOS F 31.4; PTSD; Strong cluster B traits Reason for Discharge:: Pt has made significant progress towards his treatment goals AEB his reduction in DSM-5 symptom scores, self-report of increased ability to managing symptoms, and improved functioning. Pt no longer meets criteria for [facility] level of care and will transition to outpatient counseling and IOP aftercare. - Treatment Progress During Treatment & Response: Pt has made significant strides since starting IOP as shown by his reduced symptoms, his engagement in group, and his report of overall improved mood. When Pt started IOP, he was severely depressed, not sleeping, and had suicidal ideations daily. Pt did not have much hope for the future and he was isolating. Now, Pt is actively using healthy coping skills like opposite action, challenging negative thoughts, and using the awareness he has gained to manage his emotions and stressors. Pt self-reports progress in challenging negative thoughts, better sleep, feeling more positive, reduced panic, and reduced flashbacks. Pt was attentive during group and offered emotional support to peers. In individual sessions, Pt was receptive to feedback and responded well to thought challenging. Pt?s overall DSM-5 scores decreased by 75% from admission. Depression decreased by 100%, anxiety by 80%, SI by 100%, and not knowing who he is or what he wants in life decreased by 80%. Issues Still to be Addressed:: Pt can benefit from ongoing individual counseling and psychiatry to promote gains and reinforce healthy coping skills. Pt reported one reason IOP was so helpful was because of the social component and making therapy fun. Pt has been encouraged to continue socializing with family, friends, and finding other outlets like [employer]. Pt can benefit from continuing to increase his emotional regulation and distress tolerance skills. Pt also would like to get back to work and is planning on moving in with a friend soon. Discharge Recommendations/Instructions:: Pt will follow up with Sj Melvin for individual counseling. Pt recently saw Sj on 11/19/21 and will see him again this week. Pt will also follow up with Froylan Rojas at [facility] this month for psychiatry. Appointment scheduled for 11/25/21. Pt is scheduled for an intake at [facility] on 12/01/21 to get established for case management services. Pt will start IOP aftercare on 12/02/21 and he is encouraged to follow up with his medical providers for diabetes management. Discharge Handout: Complete Discharge Handout with client on aftercare options and continuity of care.
== END 2021-11-22 14:08 | disposition home or self-care (01) ==
LOC: BHIOP 08:01
PROVIDERS: PCP Family Medicine; Referring Provider Psychiatry & Neurology Psychiatry; Visit Provider Psychiatry & Neurology Psychiatry
DX: F31.89 Other bipolar disorder (principal); F43.10 Post-traumatic stress disorder, unspecified; E10.40 Type 1 diabetes mellitus with diabetic neuropathy, unspecified; E10.319 Type 1 diabetes mellitus with unspecified diabetic retinopathy without macular edema; Z91.14 Patient's other noncompliance with medication regimen; Z79.4 Long term (current) use of insulin; Z79.899 Other long term (current) drug therapy; Z91.51 Personal history of suicidal behavior
CPT/HCPCS: 99213; H2020

== ENCOUNTER 2022-01-03 14:21 | Inpatient (IN) | payer MEDICAID, SELFPAY ==
[2022-01-03] VITALS (14 sets, daily range): BP systolic 99–124; BP diastolic 61–89; PULSE 84–119; RESP 13–26; TEMP 36.3–36.8; O2SAT 96–99; BMI 20.9; BMI 21.9
--- NOTE | 2022-01-03 14:30 | EX.ED.DYSGE1 ---
HPI History of Present Illness Chief Complaint: General Illness Narrative Narrative: 21-year-old male here for concern for dizziness, headache and nausea. The patient states he has been feeling unwell with dizziness, nausea, headache. He states the symptoms started 3 days ago and they have been constant, severe without alleviating factors. States his blood sugars were high yesterday states they are above 600. States he got them down to around 400 today. Denies any diarrhea. Denies any fever. Denies any numbness, tingling, loss of sensation. Denies any facial drooping or loss of vision.. Old chart reviewed: History of type 1 diabetes, DKA, fatty liver, GERD, gastroenteritis Last ED visit in October 2021 for type 1 diabetes [facility] Medical History (Updated 10/27/21 @ 00:01 by Helga King) Anxiety disorder Back problem Bipolar disorder, unspecified Bone fracture Diabetes type 1, uncontrolled Hearing problem Liver disease PTSD (post-traumatic stress disorder) Seizure Vision problem Home Medications gabapentin 300 mg capsule 300 mg PO TID neuropathy 09/15/19 [History Last Taken 01/03/22] insulin lispro 100 unit/mL subcutaneous pen 8 unit subcut BREAKFAST 09/09/21 [History Last Taken 01/02/22] insulin lispro 100 unit/mL subcutaneous pen 10 unit subcut LUNCH 09/09/21 [History Last Taken 01/02/22] insulin lispro 100 unit/mL subcutaneous pen 14 unit subcut DINNER 09/09/21 [History Last Taken 01/02/22] clonidine HCl 0.1 mg tablet 0.1 mg PO QHS 30 days #30 tabs 11/17/21 [Rx Last Taken 01/02/22] Invega Hafyera 01/03/22 [History Last Taken Unknown] citalopram 10 mg tablet 40 mg PO DAILY 01/03/22 [History Last Taken 01/02/22] insulin detemir U-100 100 unit/mL (3 mL) subcutaneous pen (Levemir FlexTouch U-100 Insulin) 40 ea subcut QHS 01/03/22 [History Last Taken 01/02/22] Allergy/AdvReac Type Severity Reaction Status Date / Time No Known Allergies Allergy Verified 01/03/22 14:23 Family History Mother Kidney disease Surgical History History of appendectomy S/p bilateral myringotomy with tube placement Social History Smoking Status: Never smoker second hand exposure: No alcohol intake: never substance use type: does not use ROS ROS ED Eyes Eyes: Denies other visual disturbances ENT ENT ED: Denies ear pain Cardiovascular Cardiovascular: Denies chest pain Respiratory/Chest Respiratory/Chest: Denies dyspnea Gastrointestinal Gastrointestinal: Denies abdominal pain Genitourinary Genitourinary ED: Denies dysuria Musculoskeletal Musculoskeletal: Denies joint pain Integumentary Denies rash Neurologic Neurologic: Reports dizziness, headache(s) and other; Denies focal weakness, numbness, syncope or weakness Psychiatric Psychiatric: Denies homicidal ideation or suicidal ideation EXAM Physical Exam Const Vital Signs: 01/03/22 14:22 01/03/22 15:11 01/03/22 15:12 Temperature 97.5 F L Temperature Source Temporal Pulse Rate 117 H 105 H Respiratory Rate 16 23 H Respiratory Effort Normal Respiratory Pattern Normal Blood Pressure 124/74 H 115/89 H Blood Pressure Mean 90 97 Pulse Ox 97 Oxygen Delivery Method Room Air 01/03/22 16:49 Temperature Temperature Source Pulse Rate 119 H Respiratory Rate 16 Respiratory Effort Respiratory Pattern Blood Pressure 102/65 Blood Pressure Mean 77 Pulse Ox Oxygen Delivery Method Negative for alert or oriented x3 General Appearance ED: Negative for comfortable Orientation / Consciousness: Negative for awake HEENT Denies normocephalic Face and Sinus: Negative for face symmetric External Ear: Negative for external ears normal Mouth ED: No moist mucous membranes normal Throat: Negative for posterior oropharynx normal Eyes Negative for PERRL or EOMs intact bilaterally Neck No full ROM Carotids: other Other Details: no carotid bruits Chest Wall Negative for inspection of chest normal Resp No normal respiratory effort, No no retractions, No no use of accessory muscles and No clear to auscultation bilaterally Cardio Negative for no murmurs or peripheral pulses 2+ throughout GI Negative for no bruits GI Narrative: no pulsatile abdominal masses Negative for no CVA tenderness Back/Spine Cervical Spine: Negative for cervical ROM normal Extremity Negative for normal to inspection or full ROM Neuro Neuro Narrative: Alert and oriented x3, neuro exam at baseline, cranial nerves II through XII are intact. No pain with extraocular muscle movement. There is negative test of skew. Normal speech. 5 of 5 strength in upper and lower extremities in flexion extension. Intact sensation to light touch in upper and lower extremity dermatomes. No truncal or extremity ataxia. No dysdiadochokinesia. Normal gait. 2+ reflexes. No meningeal signs. Negative Babinski. NIH of 0. MDM MDM MDM Narrative Medical decision making narrative: 21-year-old male presents with feeling ill, dizziness, headache and nausea with reported elevated blood sugars in the setting of type 1 diabetes and history of DKA. He was initially tachycardic otherwise hemodynamically stable, afebrile he appeared well and nontoxic. Abdominal exam is benign. No focal neurologic deficits. Obtained labs to rule out DKA, signs of metabolic acidosis, signs of dehydration or electrolyte abnormalities. Labs remarkable for evidence of DKA given anion gap, bicarb of 8. Started patient on insulin drip, initially normal saline and lactated Ringer's bolus. Discussed the case with the hospitalist Dr. Arshad who excepted the patient for continuing care in intensive care unit. Lab Data Attestation: I reviewed the patient's lab results. Lab results narrative: CBC without leukocytosis, severe anemia, no thrombocytopenia. [id number] glucose greater than 500 VBG with evidence of metabolic acidosis with a pH of 7.2, bicarb of 8 Acetone level moderately high concerning for poor glucose utilization in the setting of uncontrolled type 1 diabetes Chemistry panel with evidence of pseudohyponatremia, severe hyperglycemia, elevated anion gap to 23 and bicarb of 13 consistent with DKA Labs: Laboratory Results - last 24 hr 01/03/22 01/03/22 01/03/22 15:01 15:03 15:03 WBC 9.2 RBC 5.29 Hgb 15.6 Hct 45.9 MCV 86.8 MCH 29.5 MCHC 34.0 RDW Std Deviation 38.3 RDW Coeff of Richard 12.0 Plt Count 286 MPV 9.9 Immature Gran % (Auto) 0.800 Neut % (Auto) 84.8 H Lymph % (Auto) 9.7 L [place] % (Auto) 3.8 Eos % (Auto) 0.5 Baso % (Auto) 0.4 Absolute Neuts (auto) 7.8 H Absolute Lymphs (auto) 0.89 Nucleated RBC % 0 Sodium Potassium Chloride Carbon Dioxide Anion Gap BUN Creatinine Estim Creat Clear Calc Est GFR (MDRD) Af Amer Est GFR (MDRD) Non-Af BUN/Creatinine Ratio Glucose Calcium Acetone Level MODERATE H POC Glucose > 500 H* 01/03/22 15:03 WBC RBC Hgb Hct MCV MCH MCHC RDW Std Deviation RDW Coeff of Richard Plt Count MPV Immature Gran % (Auto) Neut % (Auto) Lymph % (Auto) [place] % (Auto) Eos % (Auto) Baso % (Auto) Absolute Neuts (auto) Absolute Lymphs (auto) Nucleated RBC % Sodium 125 L Potassium 4.8 Chloride 89 L Carbon Dioxide 13.0 L Anion Gap 23 H BUN 19 H Creatinine 1.18 Estim Creat Clear Calc 86.20 Est GFR (MDRD) Af Amer 98 Est GFR (MDRD) Non-Af 81 BUN/Creatinine Ratio 16.1 Glucose 943 H* Calcium 9.4 Acetone Level POC Glucose EKG Initial EKG: Comments: EKG sinus tachycardia, normal axis, normal intervals, no STEMI Critical Care Time Critical Care Time: Yes Critical care time (excluding procedures): 30-74 minutes Discharge Plan Triage Chief Complaint: General Illness ED Provider: Clay Ngo Dx/Rx/DC Orders Prescriptions: No Action gabapentin 300 MG capsule 300 mg PO TID insulin lispro 100 unit/mL Insulin Pen 14 unit SUBCUT DINNER insulin lispro 100 unit/mL Insulin Pen 10 unit SUBCUT LUNCH insulin lispro 100 unit/mL Insulin Pen 8 unit SUBCUT BREAKFAST clonidine HCl 0.1 mg tablet 0.1 mg PO QHS 30 Days Qty: 30 2RF Levemir FlexTouch U-100 Insuln 100 unit/mL (3 mL) insulin pen 40 ea SUBCUT QHS Label Comments: inject 30 units every morning and 34 units every evening citalopram 10 mg tablet 40 mg PO DAILY Alisha Hoffmann Primary Care Provider: Jason Good Referrals: Jason Good MD [Primary Care Provider] -
--- NOTE | 2022-01-03 14:48 | EKG12_ITS ---
Test Reason : Blood Pressure : / mmHG Vent. Rate : 105 BPM Atrial Rate : 105 BPM P-R Int : 122 ms QRS Dur : 080 ms QT Int : 334 ms P-R-T Axes : 063 027 005 degrees QTc Int : 441 ms Sinus tachycardia Right atrial enlargement Nonspecific T wave abnormality Abnormal ECG Confirmed by RONALD OLMEDO, JONATHAN ([id number]), society editor WGEN FRANKLIN ([id number]) on 01/07/2022 11:47:40 AM Referred By: TORSTEN Confirmed By:JONATHAN CARDENAS MD
[2022-01-03 15:06] LABS: Bedside Glucose > 500 mg/dL (74-106)
[2022-01-03] MEDS: Metoclopramide 10 MG/2 ML Vial 5 MG IV (15:10)
[2022-01-03] MEDS: 0.9% Normal Saline 1,000 ML 1000 ML IV (15:10)
[2022-01-03 15:12] LABS: Absolute Lymphocyte Count 0.89 X10^3/uL (0.83-4.51); Absolute Neutrophil Count 7.8 X10^3/uL (2.0-7.7); Basophil# 0.04 X10^3/uL; Basophil% 0.4 % (0-1); Eosinophil# 0.05 X10^3/uL; Eosinophils% 0.5 % (0-5); Hematocrit 45.9 % (40-54); Hemoglobin 15.6 g/dL (13.0-16.5); Lymphocyte # 0.89 X10^3/ul (0.83-4.51); Lymphocyte % 9.7 % (19-41); Mean Corpuscular Hgb 29.5 pg (27.0-32.0); Mean Corpuscular Volume 86.8 fL (80-94); Mean Platelet Vol. 9.9 fl (6.2-12.0); Monocyte# 0.35 X10^3/uL; Monocyte% 3.8 % (0-10); NRBC Flagged by Analyzer 0 % (0-5); Neutrophil # 7.77 X10^3/uL (2.7-7.7); Neutrophil % 84.8 % (47-70); Platelet Count 286 K/mm3 (150-450); RBC Distribution Width SD 38.3 fl (35.1-43.9); Red Blood Count 5.29 M/mm3 (4.6-6.2); White Blood Count 9.2 K/mm3 (4.4-11.0)
[2022-01-03 16:40] LABS: Anion Gap 23 (5-15); BUN 19 mg/dL (7-18); BUN/Creat Ratio 16.1 RATIO (10-20); Calcium,Total 9.4 mg/dL (8.5-10.1); Chloride 89 mmol/L (98-107); Creatinine, Serum 1.18 mg/dL (0.70-1.30); EST Glomerular Filtration Rate 81 mL/min (>60); Est Glom Filt Rate - Afr Amer 98 mL/min (>60); Glucose 943 mg/dL (74-106); Potassium 4.8 mmol/L (3.5-5.1); Sodium Level 125 mmol/L (136-145)
[2022-01-03 16:55] LABS: Blood Gas Specimen Type VEN; VBG BASE EXCESS -19 mmol/L (-1.0-3.5); VBG Bicarbonate 8 mmol/L (22-26); VBG PO2 169 mmHg (25-40); VBG SO2 99 % (50-70); VBG TCO2 9 mmol/L (23-33); VBG pCO2 17.4 mmHg (41-51); VBG pH 7.27 (7.32-7.42)
--- NOTE | 2022-01-03 16:57 | CM.ED ---
Social Work Note Pt has ED Care Plan. MD Ngo updated that pt has ED Care Plan. Marta Oshea WELDER OPERATOR, PRINT BINDING WORKER
[2022-01-03 17:06] LABS: Bedside Glucose > 500 mg/dL (74-106)
[2022-01-03 17:08] LABS: AST(SGOT) 22 U/L (15-37); Alanine Aminotransfer ALT/SGPT 49 U/L (16-61); Albumin, Serum 3.9 g/dL (3.2-5.0); Alkaline Phosphatase 157 U/L (45-117); Bilirubin, Direct 0.24 mg/dL (0.00-0.30); Globulin 3.5 g/dL (2.2-4.2); Lipase 40 U/L (73-393); Protein, Total 7.4 g/dL (6.4-8.2)
--- NOTE | 2022-01-03 17:13 | HP.PCM.HOS_ITS ---
HPI - General General Date of Admission: 01/03/22 HPI Narrative VAHID DE LOS SANTOS, is a 21 M who presents to the hospital with nausea and dizziness. He states that he stopped eating for the last several days secondary to depression and because he was not eating he was not taking his mealtime insulin though he was taking his long-acting insulin. He presents today in the ER with DKA consisting of blood sugar of 943 as well as moderate acetone and a bicarb of 13 with an anion gap of 23. He was given fluids in the ER started on an insulin drip. [facility] Medical History (Updated 10/27/21 @ 00:01 by Helga King) Anxiety disorder Back problem Bipolar disorder, unspecified Bone fracture Diabetes type 1, uncontrolled Hearing problem Liver disease PTSD (post-traumatic stress disorder) Seizure Vision problem Home Medications gabapentin 300 mg capsule 300 mg PO TID neuropathy 09/15/19 [History Last Taken 01/03/22] insulin lispro 100 unit/mL subcutaneous pen 8 unit subcut BREAKFAST 09/09/21 [History Last Taken 01/02/22] insulin lispro 100 unit/mL subcutaneous pen 10 unit subcut LUNCH 09/09/21 [History Last Taken 01/02/22] insulin lispro 100 unit/mL subcutaneous pen 14 unit subcut DINNER 09/09/21 [History Last Taken 01/02/22] clonidine HCl 0.1 mg tablet 0.1 mg PO QHS 30 days #30 tabs 11/17/21 [Rx Last Taken 01/02/22] Invega Hafyera 01/03/22 [History Last Taken Unknown] citalopram 10 mg tablet 40 mg PO DAILY 01/03/22 [History Last Taken 01/02/22] insulin detemir U-100 100 unit/mL (3 mL) subcutaneous pen (Levemir FlexTouch U- 100 Insulin) 40 ea subcut QHS 01/03/22 [History Last Taken 01/02/22] Allergy/AdvReac Type Severity Reaction Status Date / Time No Known Allergies Allergy Verified 01/03/22 14:23 Family History Mother Kidney disease Surgical History History of appendectomy S/p bilateral myringotomy with tube placement Social History Smoking Status: Never smoker second hand exposure: No alcohol intake: never substance use type: does not use ROS Constitutional Constitutional: Reports fatigue; Denies chills, fever(s) or malaise Eyes Eyes: Denies blurry vision ENT HEENT: Denies headache(s) or nasal discharge Cardiovascular Cardiovascular: Denies chest pain, dyspnea on exertion or syncope Respiratory/Chest Respiratory/Chest: Denies cough, shortness of breath at rest or shortness of breath with exertion Gastrointestinal Gastrointestinal: Reports nausea; Denies constipation, diarrhea or vomiting Genitourinary Genitourinary: Denies dysuria Neurologic Neurologic: Reports dizziness; Denies focal weakness, numbness or tremor(s) Psychiatric Psychiatric: Reports depression; Denies anxiety Vital Signs Vital Signs Vital Signs: 01/03/22 14:22 01/03/22 15:11 01/03/22 15:12 Temperature 97.5 F L Temperature Source Temporal Pulse Rate 117 H 105 H Respiratory Rate 16 23 H Respiratory Effort Normal Respiratory Pattern Normal Blood Pressure 124/74 H 115/89 H Blood Pressure Mean 90 97 Pulse Ox 97 Oxygen Delivery Method Room Air 01/03/22 16:49 Temperature Temperature Source Pulse Rate 119 H Respiratory Rate 16 Respiratory Effort Respiratory Pattern Blood Pressure 102/65 Blood Pressure Mean 77 Pulse Ox Oxygen Delivery Method Weight Weight: 138 lb Body Mass Index (BMI) 20.9 Physical Exam Const alert, oriented x3 and no apparent distress General Appearance: cooperative HEENT normocephalic Mouth: dry mucous membranes Eyes PERRL, EOMs intact bilaterally and conjunctivae normal Neck supple and no JVD Resp normal respiratory effort, no retractions, no use of accessory muscles and clear to auscultation bilaterally Auscultation: Negative for crackles, rales, rhonchi or wheezes Cardio regular rhythm, S1 normal heart sound, S2 normal heart sound and no murmurs Rate: tachycardic GI soft to palpation, non-tender and non-distended; Negative for hepatosplenomegaly Extremity no clubbing, cyanosis or edema Skin no rashes or lesions noted Neuro no focal motor deficits and no sensory deficits noted Psych affect normal Appearance: appropriate Results Lab / Micro Data Result Diagrams: 01/03/22 15:03 01/03/22 15:03 Labs: Laboratory Results - last 24 hr 01/03/22 15:01: POC Glucose > 500 H* 01/03/22 15:03: WBC 9.2, RBC 5.29, Hgb 15.6, Hct 45.9, MCV 86.8, MCH 29.5, MCHC 34.0, RDW Std Deviation 38.3, RDW Coeff of Richard 12.0, Plt Count 286, MPV 9.9, Immature Gran % (Auto) 0.800, Neut % (Auto) 84.8 H, Lymph % (Auto) 9.7 L, [place] % (Auto) 3.8, Eos % (Auto) 0.5, Baso % (Auto) 0.4, Absolute Neuts (auto) 7.8 H, Ab solute Lymphs (auto) 0.89, Nucleated RBC % 0 01/03/22 15:03: Total Bilirubin 1.00, Direct Bilirubin 0.24, AST 22, ALT 49, Alkaline Phosphatase 157 H, Total Protein 7.4, Albumin 3.9, Globulin 3.5, Lipase 40 L 01/03/22 15:03: Acetone Level MODERATE H 01/03/22 15:03: Sodium 125 L, Potassium 4.8, Chloride 89 L, Carbon Dioxide 13.0 L, Anion Gap 23 H, BUN 19 H, Creatinine 1.18, Estim Creat Clear Calc 86.20, Est GFR (MDRD) Af Amer 98, Est GFR (MDRD) Non-Af 81, BUN/Creatinine Ratio 16.1, Glucose 943 H*, Calcium 9.4 01/03/22 17:02: POC Glucose > 500 H* ABG Data ABG results: ABG 01/03/22 16:50 Specimen Type CORRIE VBG pH 7.27 L VBG pO2 169 H VBG HCO3 8 L VBG Total CO2 9 L VBG O2 Sat (Calc) 99 H VBG Base Excess -19 L POC Mix VBG pCO2 Pt Tmp 17.4 L* Crit Call To/Read Back Yes Blood Gas Notified Whom Dr. Ngo Assessment & Plan Assessment/Plan (1) DKA (diabetic ketoacidoses): QUALIFIERS: Diabetes mellitus type: type 1 Diabetes mellitus complication detail: without coma Qualified Code(s): E10.10 - Type 1 diabetes mellitus with ketoacidosis without coma PLAN: Plan 1. Type 1 diabetes with DKA ? We will admit him to the ICU and placed on the DKA protocol ? N.p.o. ? Continue with the insulin drip and aggressive fluid hydration ? Once his anion gap closes can start him on a diet and put him back on his home insulin regimen ? Recommend once discharged that he follow-up with his boring machine operator double end 2. Anxiety/depression ? He states that the depression is well caused him to stop eating which then led to him not taking his insulin ? We will continue with citalopram as well as clonidine and gabapentin ? Recommend outpatient follow-up with his PCP for medication adjustment DVT: Ambulation Charges/Coding Visit Charges Inpatient E&M: 68093 Init Hosp L2
--- NOTE | 2022-01-03 17:14 | ED.RN ---
rn at bedside with glucometer to check blood sugar, reading read high. serum sample sent at this time.
[2022-01-03] MEDS: Lactated Ringers 1,000 ML 999 ML IV (17:24)
[2022-01-03 17:40] LABS: Anion Gap 25 (5-15); BUN 19 mg/dL (7-18); BUN/Creat Ratio 17.3 RATIO (10-20); Calcium,Total 9.1 mg/dL (8.5-10.1); Chloride 96 mmol/L (98-107); EST Glomerular Filtration Rate 88 mL/min (>60); Est Glom Filt Rate - Afr Amer 107 mL/min (>60); Estimated Creatinine Clearance 92.47 ml/min; Glucose 746 mg/dL (74-106); Sodium Level 130 mmol/L (136-145)
[2022-01-03] MEDS: 0.9% Normal Saline 1,000 ML 999 ML IV (17:55)
[2022-01-03 18:40] LABS: Bedside Glucose > 500 mg/dL (74-106)
[2022-01-03] MEDS: 0.9% Normal Saline 1,000 ML 500 ML IV (18:57)
[2022-01-03] MEDS: Ondansetron 4 MG/2 ML Vial IV (19:37)
[2022-01-03 19:40] LABS: Bedside Glucose 391 mg/dL (74-106)
[2022-01-03 20:56] LABS: Bedside Glucose 303 mg/dL (74-106)
[2022-01-03] MEDS: Gabapentin 300 MG Capsule PO (21:04)
[2022-01-03] MEDS: 0.9% Normal Saline 1,000 ML 250 ML IV (21:05)
[2022-01-03] MEDS: cloNIDine HCl 0.1 MG Tablet PO (21:05)
[2022-01-03 21:38] LABS: Anion Gap 16 (5-15); BUN 15 mg/dL (7-18); BUN/Creat Ratio 17.6 RATIO (10-20); Calcium,Total 8.4 mg/dL (8.5-10.1); Chloride 109 mmol/L (98-107); Creatinine, Serum 0.85 mg/dL (0.70-1.30); EST Glomerular Filtration Rate 118 mL/min (>60); Est Glom Filt Rate - Afr Amer 143 mL/min (>60); Estimated Creatinine Clearance 128.47 ml/min; Glucose 305 mg/dL (74-106); Potassium 4.2 mmol/L (3.5-5.1); Sodium Level 138 mmol/L (136-145)
[2022-01-03 22:26] LABS: Bedside Glucose 258 mg/dL (74-106)
[2022-01-04] VITALS (11 sets, daily range): BP systolic 89–118; BP diastolic 55–87; PULSE 78–87; RESP 16–22; TEMP 36.6; O2SAT 97–99
[2022-01-04 00:51] LABS: Bedside Glucose 202 mg/dL (74-106)
[2022-01-04 01:21] LABS: Anion Gap 10 (5-15); BUN 11 mg/dL (7-18); BUN/Creat Ratio 12.9 RATIO (10-20); Calcium,Total 8.1 mg/dL (8.5-10.1); Chloride 111 mmol/L (98-107); Creatinine, Serum 0.85 mg/dL (0.70-1.30); EST Glomerular Filtration Rate 118 mL/min (>60); Est Glom Filt Rate - Afr Amer 143 mL/min (>60); Estimated Creatinine Clearance 128.47 ml/min; Glucose 189 mg/dL (74-106); Sodium Level 138 mmol/L (136-145)
[2022-01-04 02:56] LABS: Bedside Glucose 142 mg/dL (74-106)
[2022-01-04 05:00] LABS: Anion Gap 13 (5-15); BUN 9 mg/dL (7-18); BUN/Creat Ratio 11.6 RATIO (10-20); Calcium,Total 8.2 mg/dL (8.5-10.1); Chloride 108 mmol/L (98-107); Creatinine, Serum 0.78 mg/dL (0.70-1.30); EST Glomerular Filtration Rate 132 mL/min (>60); Est Glom Filt Rate - Afr Amer 159 mL/min (>60); Glucose 168 mg/dL (74-106); Potassium 3.8 mmol/L (3.5-5.1); Sodium Level 138 mmol/L (136-145)
[2022-01-04 06:11] LABS: Bedside Glucose 224 mg/dL (74-106)
[2022-01-04 06:11] LABS: Bedside Glucose 172 mg/dL (74-106)
[2022-01-04 06:26] LABS: Anion Gap 10 (5-15); BUN 9 mg/dL (7-18); BUN/Creat Ratio 10.6 RATIO (10-20); Calcium,Total 8.1 mg/dL (8.5-10.1); Chloride 108 mmol/L (98-107); Creatinine, Serum 0.85 mg/dL (0.70-1.30); EST Glomerular Filtration Rate 118 mL/min (>60); Est Glom Filt Rate - Afr Amer 143 mL/min (>60); Estimated Creatinine Clearance 130.76 ml/min; Glucose 218 mg/dL (74-106); Potassium 4.8 mmol/L (3.5-5.1); Sodium Level 134 mmol/L (136-145)
[2022-01-04 07:00] LABS: Bedside Glucose 190 mg/dL (74-106)
[2022-01-04] MEDS: Insulin Lispro 100 UNIT/ML INSULN.PEN 8 UNIT SC (09:13)
[2022-01-04] MEDS: Gabapentin 300 MG Capsule PO (09:16)
[2022-01-04] MEDS: Citalopram 40 MG TABLET PO (09:16)
[2022-01-04 09:26] LABS: Bedside Glucose 122 mg/dL (74-106)
[2022-01-04 09:26] LABS: Bedside Glucose 174 mg/dL (74-106)
[2022-01-04] MEDS: Insulin Lispro 100 UNIT/ML INSULN.PEN 10 UNIT SC (11:35)
[2022-01-04] MEDS: Insulin Lispro 100 UNIT/ML INSULN.PEN SC (11:36)
[2022-01-04 11:40] LABS: Bedside Glucose 220 mg/dL (74-106)
--- NOTE | 2022-01-04 13:40 | CASEMGMT ---
RN CM Face to Face with patient for initial transition planning/care coordination assessment. RN CM introduced self and role at [facility]. Patient lying in bed, alert and oriented. Patient willing to participate in assessment and is able to answer all questions appropriately. Care providers, pharmacy, and demographics verified. Patient wishes to discharge home, denies need for home health at this time. Patient states he has no further needs or concerns at this time. CM to follow for discharge planning needs that may arise. PCP: Florentino Specialists: Gloria Modi, cigarette inspector Jeannette. Patient states he has followed up with cigarette inspector in the last month and has follow-up appt scheduled. Preferred Pharmacy: [facility] Insurance: [place] Prescription Benefit: yes Living Will/HPOA: none LNOK: Grandmother Living Arrangements: Patient lives with grandmother in a 2 story home. Patient states he is independent and able to ambulate stairs. Transportation: Grandmother DME/HHC: Patient states he has glucometer with supplies and insulin with supplies at home. Patient denies previous HHC. Disposition Plan: Marta SCHMITZ, RN, CM
[2022-01-04 14:01] LABS: Bedside Glucose 214 mg/dL (74-106)
--- NOTE | 2022-01-04 14:07 | DCINST_ITS ---
Discharge Instructions Diet Discharge Diet: Carb Control Diet Activity Discharge Activity: Return to Normal Activity Dressing / Incision Call your doctor if you observe: Fever of 101 or Higher, Shortness of breath, Dizziness, Fainting spells, Swelling in the ankles, Chest pain and Increased palpitations (irregular heartbeat) Follow Up Care Test Results: Test results from this visit will be discussed in further detail at your follow- up appointment, if applicable. Discharge Plan Admission Admit Date/Time: 01/03/22 17:03 Attending Provider: Phill Samaniego Primary Care Provider: Jason Good Discharge Orders/Prescriptions Prescriptions: Continued gabapentin 300 MG capsule 300 mg PO TID insulin lispro 100 unit/mL Insulin Pen 14 unit SUBCUT DINNER insulin lispro 100 unit/mL Insulin Pen 10 unit SUBCUT LUNCH insulin lispro 100 unit/mL Insulin Pen 8 unit SUBCUT BREAKFAST clonidine HCl 0.1 mg tablet 0.1 mg PO QHS 30 Days Qty: 30 2RF Levemir FlexTouch U-100 Insuln 100 unit/mL (3 mL) insulin pen 40 ea SUBCUT QHS Label Comments: inject 30 units every morning and 34 units every evening citalopram 10 mg tablet 40 mg PO DAILY Alisha Hoffmann Referrals / Follow Up: Jason Good MD [Primary Care Provider] - Within 1 Week Disposition Disposition (needs filled in before D/C Order can be placed): Home, Self Care
--- NOTE | 2022-01-04 14:12 | DS.PCM_ITS ---
Providers Date of Admission: 01/03/22 Primary Care Physician: Dr. Jason Good MD Reason For Visit: DKA Diagnosis Discharge Diagnosis (1) DKA (diabetic ketoacidoses): Status: Acute Code(s): E13.10 - Other specified diabetes mellitus with ketoacidosis without coma Qualifiers: Diabetes mellitus type: type 1 Diabetes mellitus complication detail: without coma Qualified Code(s): E10.10 - Type 1 diabetes mellitus with ke toacidosis without coma Medications at Discharge Home Medications gabapentin 300 mg capsule 300 mg PO TID neuropathy 09/15/19 insulin lispro 100 unit/mL subcutaneous pen 8 unit subcut BREAKFAST 09/09/21 insulin lispro 100 unit/mL subcutaneous pen 10 unit subcut LUNCH 09/09/21 insulin lispro 100 unit/mL subcutaneous pen 14 unit subcut DINNER 09/09/21 clonidine HCl 0.1 mg tablet 0.1 mg PO QHS 30 days #30 tabs 11/17/21 Invega Hafyera 01/03/22 citalopram 10 mg tablet 40 mg PO DAILY 01/03/22 insulin detemir U-100 100 unit/mL (3 mL) subcutaneous pen (Levemir FlexTouch U- 100 Insulin) 40 ea subcut QHS 01/03/22 Hospital Course Operations None Procedures None Summary of Care Provided Minutes Spent on Discharge: 38 Hospital Course: Per HPI: VAHID DE LOS SANTOS, is a 21 M who presents to the hospital with nausea and dizziness.? He states that he stopped eating for the last several days secondary to depression and because he was not eating he was not taking his mealtime insulin though he was taking his long-acting insulin.? He presents today in the ER with DKA consisting of blood sugar of 943 as well as moderate acetone and a bicarb of 13 with an anion gap of 23.? He was given fluids in the ER started on an insulin drip. Hospital Course: 1. DKA/type 1 diabetes?21-year-old male who was not eating very well secondary to depression and so stopped taking his daytime insulin presented to the hospital in DKA. His gap is closed with appropriate treatment and his blood sugars were controlled today with his mealtime insulin. He feels much better today and is asking to go home. He did improve faster than anticipated and I discussed with him the possibility for discharge and he expressed understanding of the risk benefits of going home and wants to go home today. He will resume all of his home insulin as he states that when he is normally taking his insulin appropriately he does not have any issues with his blood sugar. He needs follow-up with his top icer as an outpatient as well as his PCP. 2. Anxiety, depression all chronic medical conditions which complicate his care. His home medications were continued where appropriate Physical Exam Narrative Const alert, oriented x3 and no apparent distress General Appearance: cooperative HEENT normocephalic Mouth: Moist mucous membranes Eyes PERRL, EOMs intact bilaterally and conjunctivae normal Neck supple and no JVD Resp normal respiratory effort, no retractions, no use of accessory muscles and clear to auscultation bilaterally Auscultation: Negative for crackles, rales, rhonchi or wheezes Cardio Regular rate and regular rhythm, S1 normal heart sound, S2 normal heart sound and no murmurs GI soft to palpation, non-tender and non-distended; Negative for hepatosplenomegaly Extremity no clubbing, cyanosis or edema Skin no rashes or lesions noted Neuro no focal motor deficits and no sensory deficits noted Psych affect normal Appearance: appropriate Weight / BMI Weight Weight: 150 lb 12.739 oz Body Mass Index (BMI) 21.9 ABG / Lab / Microbiology Data Result Diagrams: 01/03/22 15:03 01/04/22 06:05 Laboratory: Laboratory Results - last 24 hr 01/03/22 15:01: POC Glucose > 500 H* 01/03/22 15:03: WBC 9.2, RBC 5.29, Hgb 15.6, Hct 45.9, MCV 86.8, MCH 29.5, MCHC 34.0, RDW Std Deviation 38.3, RDW Coeff of Richard 12.0, Plt Count 286, MPV 9.9, Immature Gran % (Auto) 0.800, Neut % (Auto) 84.8 H, Lymph % (Auto) 9.7 L, [place] % (Auto) 3.8, Eos % (Auto) 0.5, Baso % (Auto) 0.4, Absolute Neuts (auto) 7.8 H, Absolute Lymphs (auto) 0.89, Nucleated RBC % 0 01/03/22 15:03: Total Bilirubin 1.00, Direct Bilirubin 0.24, AST 22, ALT 49, Alkaline Phosphatase 157 H, Total Protein 7.4, Albumin 3.9, Globulin 3.5, Lipase 40 L 01/03/22 15:03: Acetone Level MODERATE H 01/03/22 15:03: Sodium 125 L, Potassium 4.8, Chloride 89 L, Carbon Dioxide 13.0 L, Anion Gap 23 H, BUN 19 H, Creatinine 1.18, Estim Creat Clear Calc 86.20, Est GFR (MDRD) Af Amer 98, Est GFR (MDRD) Non-Af 81, BUN/Creatinine Ratio 16.1, Glucose 943 H*, Calcium 9.4 01/03/22 17:02: POC Glucose > 500 H* 01/03/22 17:09: Sodium 130 L, Potassium 5.0, Chloride 96 L, Carbon Dioxide 9.0 L*, Anion Gap 25 H, BUN 19 H, Creatinine 1.10, Estim Creat Clear Calc 92.47, Est GFR (MDRD) Af Amer 107, Est GFR (MDRD) Non-Af 88, BUN/Creatinine Ratio 17.3, Glucose 746 H*, Calcium 9.1 01/03/22 18:29: POC Glucose > 500 H* 01/03/22 19:28: POC Glucose 391 H 01/03/22 20:49: POC Glucose 303 H 01/03/22 21:10: Sodium 138, Potassium 4.2, Chloride 109 H, Carbon Dioxide 13.0 L , Anion Gap 16 H, BUN 15, Creatinine 0.85, Estim Creat Clear Calc 128.47, Est GFR (MDRD) Af Amer 143, Est GFR (MDRD) Non-Af 118, BUN/Creatinine Ratio 17.6, Glucose 305 H, Calcium 8.4 L 01/03/22 22:21: POC Glucose 258 H 01/04/22 00:41: POC Glucose 202 H 01/04/22 00:56: Sodium 138, Potassium 4.0, Chloride 111 H, Carbon Dioxide 17.0 L , Anion Gap 10, BUN 11, Creatinine 0.85, Estim Creat Clear Calc 128.47, Est GFR (MDRD) Af Amer 143, Est GFR (MDRD) Non-Af 118, BUN/Creatinine Ratio 12.9, Glucose 189 H, Calcium 8.1 L 01/04/22 02:49: POC Glucose 142 H 01/04/22 04:41: POC Glucose 172 H 01/04/22 04:42: Sodium 138, Potassium 3.8, Chloride 108 H, Carbon Dioxide 17.0 L , Anion Gap 13, BUN 9, Creatinine 0.78, Estim Creat Clear Calc 140.00, Est GFR (MDRD) Af Amer 159, Est GFR (MDRD) Non-Af 132, BUN/Creatinine Ratio 11.6, Glucose 168 H, Calcium 8.2 L 01/04/22 06:02: POC Glucose 224 H 01/04/22 06:05: Sodium 134 L, Potassium 4.8, Chloride 108 H, Carbon Dioxide 16.0 L, Anion Gap 10, BUN 9, Creatinine 0.85, Estim Creat Clear Calc 130.76, Est GFR (MDRD) Af Amer 143, Est GFR (MDRD) Non-Af 118, BUN/Creatinine Ratio 10.6, Glucose 218 H, Calcium 8.1 L 01/04/22 06:55: POC Glucose 190 H 01/04/22 07:54: POC Glucose 174 H 01/04/22 09:09: POC Glucose 122 H 01/04/22 11:34: POC Glucose 220 H 01/04/22 13:56: POC Glucose 214 H ABG: ABG 01/03/22 16:50 Specimen Type CORRIE VBG pH 7.27 L VBG pO2 169 H VBG HCO3 8 L VBG Total CO2 9 L VBG O2 Sat (Calc) 99 H VBG Base Excess -19 L POC Mix VBG pCO2 Pt Tmp 17.4 L* Crit Call To/Read Back Yes Blood Gas Notified Whom Dr. Ngo D/C Instructions Discharge Diet: Carb Control Diet Call your doctor if you observe: Fever of 101 or Higher, Shortness of breath, Dizziness, Fainting spells, Swelling in the ankles, Chest pain and Increased palpitations (irregular heartbeat) Meaningful Use Info Meaningful Use Diagnoses (Choose all that apply): None applicable Discharge Plan Admission Admit Date/Time: 01/03/22 17:03 Attending Provider: Phill Samaniego Primary Care Provider: Jason Good Discharge Orders/Prescriptions Prescriptions: Continued gabapentin 300 MG capsule 300 mg PO TID insulin lispro 100 unit/mL Insulin Pen 14 unit SUBCUT DINNER insulin lispro 100 unit/mL Insulin Pen 10 unit SUBCUT LUNCH insulin lispro 100 unit/mL Insulin Pen 8 unit SUBCUT BREAKFAST clonidine HCl 0.1 mg tablet 0.1 mg PO QHS 30 Days Qty: 30 2RF Levemir FlexTouch U-100 Insuln 100 unit/mL (3 mL) insulin pen 40 ea SUBCUT QHS Label Comments: inject 30 units every morning and 34 units every evening citalopram 10 mg tablet 40 mg PO DAILY Alisha Hoffmann Referrals / Follow Up: Jason Good MD [Primary Care Provider] - Within 1 Week Disposition Disposition (needs filled in before D/C Order can be placed): Home, Self Care Charges/Coding Visit Charges Inpatient E&M: 90178 Disch Hosp
--- NOTE | 2022-01-04 14:20 | CASEMGMT ---
Social Work Consult: Mental Health/support Referral source: Self referral due to reason for visit. Met with patient in room. Introduced self and 7th grade social studies teacher role. Patient agreeable to speak with this 7th grade social studies teacher and remembers this 7th grade social studies teacher from prior interactions. Patient reports to be living with grandmother and to have no concerns for housing or transportation. Patient reports to mainly walk for transportation as patient does not drive. Patient reports to have no income and to depend on patient grandmother for financial support. Patient denies having disability or planning to apply for disability. Patient reports to be active with [facility] for counseling services to manage patient Depression. Patient reports to be taking medication for Depression but it doesn't really help. Patient denies any suicidal thoughts, plans or intents. Patient reports to have needed support in the community and to have no concerns on transitioning to home today. Active support and listening provided. PLAN: Discharge to home. Lloyd MEJIA, DONG
== END 2022-01-04 14:20 | disposition home or self-care (01) | DRG 420 ==
LOC: ED 15:52 → ICU 17:14
PROVIDERS: Family Medicine; Admitting Provider Family Medicine; Emergency Provider Emergency Medicine; PCP Family Medicine; Visit Provider Family Medicine
DX: E10.10 Type 1 diabetes mellitus with ketoacidosis without coma (principal); F32.A Depression, unspecified; Z79.4 Long term (current) use of insulin; F41.9 Anxiety disorder, unspecified
CPT/HCPCS: 80048; 80076; 82009; 82803; 82962; 83690; 85025; 93005; 97802; 99284; J7030; J7120; A4216; J2405